=== PATIENT | male | born 1970 | race Caucasian/White ===

== ENCOUNTER 2020-03-19 08:58 | Inpatient (IN) ==
--- OUTSIDE RECORDS SUMMARY | 2020-03-19 09:01 | External Medical Summary | Continuity of Care Document ---
:1970 Author Name Salvador Phelps, Provider Address Unavailable Unavailable , Care Team Providers Name Role Phone Rahul Torres DO Unavailable [email or web address] PCP, UNKNOWN Unavailable Unavailable Problems Active medical history not documented Allergies and Adverse Reactions Allergy history not documented Medications Medications not documented Procedures Procedures not documented Immunizations Immunizations not documented Plan of Treatment Planned Observations Planned Goals not documented Results No Known Results Results not documented
--- OUTSIDE RECORDS SUMMARY | 2020-03-19 09:02 | External Medical Summary | Continuity of Care Document ---
:1970 Author Name Salvador Phelps, Provider Address Unavailable Unavailable , Care Team Providers Name Role Phone Rahul Torres DO Unavailable [email or web address] PCP, UNKNOWN Unavailable Unavailable Problems Active medical history not documented Allergies and Adverse Reactions Allergy history not documented Medications Medications not documented Procedures Procedures not documented Immunizations Immunizations not documented Plan of Treatment Planned Observations Planned Goals not documented Results No Known Results Results not documented
--- NOTE | 2020-03-19 09:49 | Emergency Department Note ---
Impression & Plan Acute CVA (cerebrovascular accident), Hypertension, Non-ST elevation [place] (NSTEMI) ED Provider Note NAME: EDNA TAYLOR AGE: 49 SEX: M : 1970 ARRIVES VIA: Walk-In INFORMANT: Patient ED PROVIDER(S): Tray Green DO CHIEF COMPLAINT: left arm weakness HPI: Patient is a 49-year-old male who presents the ER with a past medical history of hypertension, and [place], who presents to the ER for left upper extremity weakness. This started just prior to Thursday while he was working. He denies any trauma. He has never had this before. He had a mild he adache Thursday and Thursday but that has now dissipated. Pain is 0 out of 10. Denies any chest pain, shortness of breath, nausea, vomiting or diarrhea. He notes may be some questionable weakness in his left lower extremity as he does have trouble ambulating. He notes his vision is a little blurry. No loss of vision. No other complaints at this time. No exacerbating or remitting factors. He later notes that he had some chest pain last but has had no symptoms since then. ROS: See above HPI for pertinent positives & negatives. A total of 10 systems reviewed and were otherwise negative. PAST MEDICAL HISTORY:See Below PAST SURGICAL HISTORY:See Below FAMILY HISTORY:See Below SOCIAL HISTORY:See Below HOME MEDICATIONS:See Below ALLERGIES:See Below VITALS:See Below PHYSICAL EXAMINATION: GENERAL: Sitting up in bed, alert, well appearing, well nourished, no distress, non-toxic EYE EXAM: normal conjunctiva. PERRL and EOM's grossly intact. OROPHARYNX: no exudate, no erythema, lips, buccal mucosa, and tongue normal and mucous membranes are moist NECK: supple, no nuchal rigidity, no adenopathy, non-tender LUNGS: Clear to auscultation. Normal chest wall mechanics HEART: no murmurs, S1 normal and S2 normal ABDOMEN: abdomen soft, non-tender, normo-active bowel sounds, no masses, no rebound or guarding. BACK: Back is symmetrical on inspection and there is no deformity, no midline tenderness, no CVA tenderness. SKIN: no rashes and no bruising UPPER EXTREMITIES: upper extremities are grossly normal. LOWER EXTREMITIES: No pitting edema. NEURO EXAM: Normal sensorium, cranial nerves II-XII intact, normal speech, flexion extension as well as grasp and abduction of digits of the right upper extremity is intact. Weakness with flexion extension of the shoulder, abduction and adduction as well in combination with flexion extension of the elbow wrist grasp and abduction of the digits 4 out of 5, no weakness of legs. Unable to forearm [id number] with left hand. Positive drift. Diminished sensation in left upper extremity MEDICAL DECISION MAKING: Patient is a 49-year-old male who presents the ER for left upper extremity weakness which started this past Thursday. He denies any other complaints with exception of paresthesias may be some trouble walking. He had a headache the past 2 days but that has now resolved. IV was established blood work was obtained showed a mild leukocytosis of 11.9 thousand. Hemoglobin was concentrated 19.6. Question if this is dehydration. INR unremarkable. BMP with mild hypokalemia. Potassium was repleted. We will issue him slightly elevated at 1.2. Troponin was elevated at 0.245. Neurologic exam does confirm left upper extremity weakness. CT head as well as CTA of the head and neck shows multiple infarcts. Based on this is concern for possible embolic disease. Duplex of lower extremities was obtained and unremarkable. Chest x-ray with enlarged heart. Did discuss with neurology who recommended aspirin and MRI. Discussed with cardiology and they will perform an echo. Echo was ordered and done but did not receive results prior to admission. Discussed with the hospitalist the patient was admitted. He was updated bedside. We will hold on any IV heparin at confirmation that this is embolic as it could be secondary to multiple other etiologies at this time. Patient had no chest pain or shortness of breath since this past . Nothing to suggest that this is acute [place] at this time. Triage Nursing notes reviewed. Prior medical records reviewed Vital Signs: reviewed and remarkable for hypertension and tachycardia Differential diagnosis: Differential Diagnosis includes but is not limited to ischemic Stroke, hemorrh agic stroke, bells palsy, mass, neoplasm, migraine headache, seizure, subarachnoid hemorrhage, TIA, and transient global amnesia. ER treatment provided: See below Diagnostics interpreted by me: ECG: Sinus rhythm rate of 104 Normal axis Left bundle branch block Nonspecific ST wave changes in the inferior leads No PVCs. Morphology has changed from previous. Cardiac Monitoring: An order was placed for continuous cardiac monitoring. The monitor shows a rate of 101 with sinus rhythm. Laboratory studies: As stated above and show below. Imaging studies: CT of the head shows multiple infarcts. CTA of the neck was unremarkable. CTA of the head shows 75% stenosis of the right internal carotid and 60% stenosis of left internal carotid Duplex of lower extremities was negative. Portable AP upright 1 view of the chest shows no focal infiltrate. Echo of the chest was pending upon admission. Consultation(s): Discussed with Dr. Patton from neurology who recommended aspirin and MRI. Discussed with Dr. Dany Chris who was in agreement with echo. Discussed with Eugenie from [facility] for admission. ED COURSE: Procedures: none Critical Care: I have personally spent 45 minutes of critical care time in the direct management of this patient. This includes bedside care, interpretation of diagnostic studies, and testing, discussion with consultants, patient, and family members, and other required patient management activities. This 45 minutes is in excess of all separately billable procedures. Past Med/Surg History Social History Preferred Language: Niuean Communication Ability: Effective Destination Coordinator Required: No Beliefs That Will Affect Care: None Current Living Situation: Homeless Current Living Situation Comment: lives at homeless custodial Other Information That Helps Us Care for You: No Feels Safe at Home: Yes Safety Concerns: Feels Safe At This Time Smoking Status: Current every day smoker Tobacco Type: cigarettes ; Cigarettes Per Day: 20 ; Do You Dip or Chew Tobacco: No ; Hx Alcohol Use: No Hx Substance Use: No Allergies Allergies Allergy/AdvReac Type Severity Reaction Status Date / Time No Known Allergies Allergy Unverified 03/19/20 10:50 Home Meds Home Medications Medication Instructions Recorded Confirmed diphenhydramine HCl [Sleep Tablet 25 mg PO HS PRN 03/19/20 03/19/20 (diphenhydramine)] omeprazole magnesium [Prilosec OTC] 20 mg PO DAILY 03/19/20 03/19/20 Results & Data (ED) Vital Signs Vital Signs - 24 hr 03/19/20 09:02 03/19/20 10:51 03/19/20 10:52 Temperature 37.1 C Temperature Source Oral Pulse Rate 116 H 104 H 104 H Pulse Rate [Left] Pulse Rate from SpO2 Sensor 103 H 103 H Respiratory Rate 20 13 15 Respiratory Effort / Characteristics Non-Labored Respiratory Depth Normal Respiratory Pattern Blood Pressure 219/139 H 239/156 H 230/148 H Blood Pressure [Left Arm] Blood Pressure Mean 165 179 160 Blood Pressure Mean [Left Arm] Blood Pressure Position [Left Arm] Pulse Oximetry 98 98 97 Oxygen Delivery Method Room Air Sepsis Recent Fever Within 48 Hours No Sepsis Action Taken by Nursing No Action Required 03/19/20 10:56 03/19/20 11:09 03/19/20 11:15 Temperature Temperature Source Pulse Rate 84 Pulse Rate [Left] 110 H Pulse Rate from SpO2 Sensor 106 H 85 Respiratory Rate 22 23 Respiratory Effort / Characteristics Non-Labored Spontaneous Respiratory Depth Normal Respiratory Pattern Regular Blood Pressure 229/148 H 194/126 H Blood Pressure [Left Arm] 230/148 H Blood Pressure Mean 171 140 Blood Pressure Mean [Left Arm] 175 Blood Pressure Position [Left Arm] Lying Pulse Oximetry 96 98 99 Oxygen Delivery Method Room Air Sepsis Recent Fever Within 48 Hours Sepsis Action Taken by Nursing 03/19/20 12:15 03/19/20 12:30 03/19/20 12:58 Temperature Temperature Source Pulse Rate 82 Pulse Rate [Left] Pulse Rate from SpO2 Sensor 74 84 82 Respiratory Rate 19 Respiratory Effort / Characteristics Respiratory Depth Respiratory Pattern Blood Pressure 161/91 H 145/89 H 187/119 H Blood Pressure [Left Arm] Blood Pressure Mean 122 108 127 Blood Pressure Mean [Left Arm] Blood Pressure Position [Left Arm] Pulse Oximetry 95 96 98 Oxygen Delivery Method Sepsis Recent Fever Within 48 Hours Sepsis Action Taken by Nursing 03/19/20 13:00 03/19/20 13:15 03/19/20 13:30 Temperature Temperature Source Pulse Rate 86 80 86 Pulse Rate [Left] Pulse Rate from SpO2 Sensor 87 79 88 Respiratory Rate 18 17 18 Respiratory Effort / Characteristics Respiratory Depth Respiratory Pattern Blood Pressure 185/119 H 173/109 H 161/101 H Blood Pressure [Left Arm] Blood Pressure Mean 128 117 109 Blood Pressure Mean [Left Arm] Blood Pressure Position [Left Arm] Pulse Oximetry 97 95 94 Oxygen Delivery Method Sepsis Recent Fever Within 48 Hours Sepsis Action Taken by Nursing 03/19/20 13:45 Temperature Temperature Source Pulse Rate 85 Pulse Rate [Left] Pulse Rate from SpO2 Sensor 87 Respiratory Rate 20 Respiratory Effort / Characteristics Respiratory Depth Respiratory Pattern Blood Pressure 178/121 H Blood Pressure [Left Arm] Blood Pressure Mean 145 Blood Pressure Mean [Left Arm] Blood Pressure Position [Left Arm] Pulse Oximetry 93 Oxygen Delivery Method Sepsis Recent Fever Within 48 Hours Sepsis Action Taken by Nursing Laboratory Data Result diagrams: 03/19/20 09:59 03/19/20 09:59 Lab Results 03/19/20 03/19/20 03/19/20 Range/Units 09:59 09:59 09:59 WBC 11.98 H (4.8-10.8) K/uL RBC 6.05 (4.7-6.1) M/uL Hgb 19.6 H (14.0-18.0) g/dL POC Hgb (14.0-18.0) g/dl Hct 52.5 H (42-52) % POC Hct (42-52) % MCV 86.8 (80-100) fL MCH 32.4 (25-34) pg MCHC 37.3 H (32-36) g/dL RDW Std Deviation 46.2 (36.4-46.3) fL RDW Coeff of Dione 14.8 H (11.5-14.5) % Plt Count 161 (130-400) K/uL MPV 10.5 H (7.4-10.4) fL Immature Gran % (Auto) 0.6 % Neut % (Auto) 73.5 % Lymph % (Auto) 18.6 % [place] % (Auto) 6.7 % Eos % (Auto) 0.3 % Baso % (Auto) 0.3 % Immature Gran # (Auto) 0.07 H (0.00-0.02) K/uL Neut # (Auto) 8.82 H (1.4-6.5) K/uL Lymph # (Auto) 2.23 (1.2-3.4) K/uL [place] # (Auto) 0.80 H (0.11-0.59) K/uL Eos # (Auto) 0.03 (0-0.5) K/uL Baso # (Auto) 0.03 (0-0.2) K/uL PT (9.0-12.0) Seconds INR (0.9-1.1) APTT (21.0-31.0) Seconds PTT Ratio POC Sodium (135-144) mmol/L Sodium 136 (136-145) mmol/L POC Potassium (3.3-5.0) mmol/L Potassium 2.8 L (3.5-5.1) mmol/L POC Chloride (101-112) mmol/L Chloride 100 (98-107) mmol/L Carbon Dioxide 29 (21-32) mmol/L POC Total CO2 (24-31) mEq/l Anion Gap 7.0 (3-11) POC Anion Gap (16-25) mmol/L POC BUN (7-18) mg/dl BUN 10 (7-18) mg/dl Creatinine 1.26 (0.6-1.4) mg/dl POC Creatinine (0.6-1.3) mg/dl Est Cr Clr Drug Dosing 69.3 ml/min Est GFR ( Amer) 77.1 Est GFR (Non-Af Amer) 66.5 BUN/Creatinine Ratio 8.0 L (10-20) Glucose 242 H (70-99) mg/dl POC Glucose (other) (70-99) mg/dl Calcium 9.7 (8.5-10.1) mg/dl POC Ioniz Calcium Juan (1.12-1.32) mmol/l Magnesium 2.4 (1.8-2.4) mg/dl Total Bilirubin 1.2 H (0.2-1) mg/dl AST 16 (15-37) U/L ALT 25 (12-78) U/L Alkaline Phosphatase 134 H (45-117) U/L Troponin I 0.245 H* (0-0.045) ng/ml Total Protein 8.2 (6.4-8.2) gm/dl Albumin 3.9 (3.4-5.0) gm/dl Globulin 4.3 H (2.5-4.0) gm/dl Albumin/Globulin Ratio 0.9 (0.9-2) Blood Type O Positive Antibody Screen NEGATIVE 03/19/20 03/19/20 Range/Units 09:59 10:04 WBC (4.8-10.8) K/uL RBC (4.7-6.1) M/uL Hgb (14.0-18.0) g/dL POC Hgb 19.7 H (14.0-18.0) g/dl Hct (42-52) % POC Hct 58 H (42-52) % MCV (80-100) fL MCH (25-34) pg MCHC (32-36) g/dL RDW Std Deviation (36.4-46.3) fL RDW Coeff of Dione (11.5-14.5) % Plt Count (130-400) K/uL MPV (7.4-10.4) fL Immature Gran % (Auto) % Neut % (Auto) % Lymph % (Auto) % [place] % (Auto) % Eos % (Auto) % Baso % (Auto) % Immature Gran # (Auto) (0.00-0.02) K/uL Neut # (Auto) (1.4-6.5) K/uL Lymph # (Auto) (1.2-3.4) K/uL [place] # (Auto) (0.11-0.59) K/uL Eos # (Auto) (0-0.5) K/uL Baso # (Auto) (0-0.2) K/uL PT 11.2 (9.0-12.0) Seconds INR 1.1 (0.9-1.1) APTT 29.1 (21.0-31.0) Seconds PTT Ratio 1.0 POC Sodium 137 (135-144) mmol/L Sodium (136-145) mmol/L POC Potassium 2.9 L (3.3-5.0) mmol/L Potassium (3.5-5.1) mmol/L POC Chloride 97 L (101-112) mmol/L Chloride (98-107) mmol/L Carbon Dioxide (21-32) mmol/L POC Total CO2 27 (24-31) mEq/l Anion Gap (3-11) POC Anion Gap 17.0 (16-25) mmol/L POC BUN 9 (7-18) mg/dl BUN (7-18) mg/dl Creatinine (0.6-1.4) mg/dl POC Creatinine 1.0 (0.6-1.3) mg/dl Est Cr Clr Drug Dosing ml/min Est GFR ( Amer) Est GFR (Non-Af Amer) BUN/Creatinine Ratio (10-20) Glucose (70-99) mg/dl POC Glucose (other) 243 H (70-99) mg/dl Calcium (8.5-10.1) mg/dl POC Ioniz Calcium Juan 1.19 (1.12-1.32) mmol/l Magnesium (1.8-2.4) mg/dl Total Bilirubin (0.2-1) mg/dl AST (15-37) U/L ALT (12-78) U/L Alkaline Phosphatase (45-117) U/L Troponin I (0-0.045) ng/ml Total Protein (6.4-8.2) gm/dl Albumin (3.4-5.0) gm/dl Globulin (2.5-4.0) gm/dl Albumin/Globulin Ratio (0.9-2) Blood Type Antibody Screen Administered Medications Ioversol (Optiray 320 125ml) 120 ml IV ONCE PRN PRN Reason: Interaction Checking Stop: 03/23/20 10:12 Last Admin: 03/19/20 10:14 Dose: 120 ml Documented by: [id number] Discontinued Medications Aspirin (Aspirin) 324 mg PO NOW STA Stop: 03/19/20 10:49 Last Admin: 03/19/20 11:01 Dose: 324 mg Documented by: [id number] Sodium Chloride (Nss 1000ml) 1,000 mls @ 999 mls/hr IV .Q1H1M ONE Stop: 03/19/20 11:43 Last Infusion: 03/19/20 12:54 Dose: 0 mls/hr Documented by: [id number] Admin: 03/19/20 11:05 Dose: 999 mls/hr Documented by: [id number] Labetalol HCl (Normodyne) 10 mg IV NOW STA Stop: 03/19/20 10:50 Last Admin: 03/19/20 11:04 Dose: 10 mg Documented by: [id number] Cosigned by: [id number] Potassium Chloride (Klor-Con M10) 40 meq PO NOW STA Stop: 03/19/20 10:50 Last Admin: 03/19/20 11:00 Dose: 40 meq Documented by: [id number] Discharge Plan Visit Data Chief Complaint: Arm Pain Stated Complaint: LT ARM NUMBNESS ED Provider: Tray Green Discharge Problem: Acute CVA (cerebrovascular accident), Hypertension, Non-ST elevation [place] (NSTEMI) Discharge Instructions Interventions: ED Discharge Assessment Last Done: 03/19/20 14:10 Forms Stand Alone Forms: [employer] Prescriptions Prescriptions: No Action diphenhydramine HCl [Sleep Tablet (diphenhydramine)] 25 mg Tablet 25 mg PO HS PRN (Reason: Sleep) RF: 0 famotidine 10 mg Tablet 10 mg PO DAILY RF: 0 Referrals Referrals: PCP,NO [Primary Care Provider] - Discharge Problem: Hypertension Qualifiers: Hypertension type: unspecified Qualified Code(s): I10 - Essential (primary) hypertension
[2020-03-19 10:12] LABS: iSTAT Hemoglobin 19.7 g/dl (14.0-18.0); iSTAT Ionized Calcium 1.19 mmol/l (1.12-1.32); iSTAT Potassium 2.9 mmol/L (3.3-5.0)
[2020-03-19 10:13] LABS: Basophils # (auto) 0.03 K/uL (0-0.2); Basophils % (auto) 0.3 %; Eosinophils # (auto) 0.03 K/uL (0-0.5); Eosinophils % (auto) 0.3 %; Hematocrit (blood only) 52.5 % (42-52); Hemoglobin 19.6 g/dL (14.0-18.0); Immature Granulocytes # (auto) 0.07 K/uL (0.00-0.02); Immature Granulocytes % (auto) 0.6 %; Lymphocytes # (auto) 2.23 K/uL (1.2-3.4); Lymphocytes % (auto) 18.6 %; Mean Corpuscular Hemoglobin 32.4 pg (25-34); Mean Corpuscular Hgb Conc 37.3 g/dL (32-36); Mean Corpuscular Volume 86.8 fL (80-100); Mean Platelet Volume 10.5 fL (7.4-10.4); Monocytes % (auto) 6.7 %; Neutrophils # (auto) 8.82 K/uL (1.4-6.5); Neutrophils % (auto) 73.5 %; Platelet Count 161 K/uL (130-400); RDW Coefficient of Variation 14.8 % (11.5-14.5); RDW Standard Deviation 46.2 fL (36.4-46.3); Red Blood Count 6.05 M/uL (4.7-6.1); White Blood Count 11.98 K/uL (4.8-10.8)
[2020-03-19] MEDS ORDERED: OPTIRAY 320 125ml IV PRN (10:13)
--- NOTE | 2020-03-19 10:17 | Electrocardiogram Report ---
Test Reason : Blood Pressure : / mmHG Vent. Rate : 104 BPM Atrial Rate : 104 BPM P-R Int : 174 ms QRS Dur : 102 ms QT Int : 370 ms P-R-T Axes : 067 026 064 degrees QTc Int : 486 ms Sinus tachycardia Biatrial enlargement Left ventricular hypertrophy Borderline Criteria for Old Inferior infarct Abnormal ECG When compared with ECG of 14-OCT-2014 07:27, QRS duration has increased Otherwise no significant change Confirmed by Pedro Pablo Castañeda ([id number]) on 03/19/2020 10:16:42 AM Referred By: Confirmed By:Pedro Pablo Castañeda
[2020-03-19 10:25] LABS: INR 1.1 (0.9-1.1); Partial Thromboplastin Time 29.1 Seconds (21.0-31.0); Prothrombin Time 11.2 Seconds (9.0-12.0)
[2020-03-19 10:31] LABS: Albumin Globulin Ratio 0.9 (0.9-2); Albumin Level 3.9 gm/dl (3.4-5.0); Bilirubin,Total 1.2 mg/dl (0.2-1); Calcium 9.7 mg/dl (8.5-10.1); Creatinine Clr Calc Pharmacy 69.3 ml/min; Est GFR (African American) 77.1; Est GFR (Non-African American) 66.5; Globulin 4.3 gm/dl (2.5-4.0); Magnesium 2.4 mg/dl (1.8-2.4); Potassium 2.8 mmol/L (3.5-5.1); Total Protein 8.2 gm/dl (6.4-8.2)
--- NOTE | 2020-03-19 10:34 | CT Scan Report ---
CT head/brain wo con CLINICAL HISTORY: 49 years-old Male presenting with Stroke evaluation, headache, left arm numbness an d weakness, difficulty walking. TECHNIQUE: Multidetector CT imaging of the head was performed without the use of intravenous contrast . IV contrast: None. One or more dose lowering techniques were used consistent with the principles of ALARA (as low as reasonably achievable), including automatic exposure control, mA or kV adjustment t o individual patient size, and/or use of iterative reconstruction. COMPARISON: None. CT DOSE (mGy.cm): The estimated cumulative dose is 729.78 mGycm. FINDINGS: Chief Operator Reformer topogram: Unremarkable. Ventricles and sulci normal in size. No hemorrhage. Focal periventricular white matter hypoattenuatio n in the left parietal occipital region (series 2 image 18). Hypoattenuation involving the white ari er and overlying justin matter in the right frontal and right parietal lobes (series 2 image 23). The a ppearance is consistent with acute infarcts with regional sulcal effacement. No midline shift. No ext ra-axial fluid collection. Paranasal sinuses and mastoid air cells clear. Calvarium intact. IMPRESSION: 1. Acute infarcts involving the right frontal and right parietal lobes. Given the patient's age, in addition to more typical etiologies of multifocal acute infarcts such as emboli, atypical etiologies should also be considered such as vasculitis. 2. No evidence of hemorrhagic conversion at this time. 3. The focal hypoattenuation in the periventricular white matter of the left parietal occipital reilly on may also relate to acute infarct though this is less specific. The report will be called/faxed according to standard departmental protocol for a critical finding. ACT 112: Negative or not required by law. Electronically signed by: Ehsan Can M.D. 03/19/2020 10:32 AM
[2020-03-19 10:43] LABS: Troponin I 0.245 ng/ml (0-0.045)
[2020-03-19] MEDS ORDERED: SODIUM CHLORIDE 0.9% 1000ML 1,000 ML IV ONE (10:43)
--- NOTE | 2020-03-19 10:43 | CT Scan Report ---
CT angio head w con CLINICAL HISTORY: Stroke evaluation LEFT ARM NUMBNESS AND WEAKNESS. DIFFICULTY AMBULATING. TECHNIQUE: CT angiography of the head was performed in a dynamic helical fashion during intravenous a dministration of 120 cc of Optiray 320. MIP imaging was performed. A dose lowering technique was util ized adhering to the principles of ALARA. CT DOSE: 1112.82 mGycm COMPARISON STUDY: Noncontrast head CT dated 03/19/2020 FINDINGS: There are no lesion suspicious for aneurysm. There are no major intracranial branch occlusi ons. There is moderate atheromatous calcification at the level of the cavernous carotids bilaterally. There is an estimated 40% diameter narrowing of the left internal carotid artery. Stenosis measureme nts are less accurate in the presence of dense calcification. The dural venous sinuses appear patent. IMPRESSION: 1. No evidence of major intracranial branch occlusion 2. No evidence of aneurysm 3. Moderate atheromatous change at the level the cavernous carotids with estimated 40% diameter steno sis of the left internal carotid artery ACT 112: Negative or not required by law. Electronically signed by: Roland Mejias M.D. 03/19/2020 10:41 AM
--- NOTE | 2020-03-19 10:43 | CT Scan Report ---
CT angio neck with con CLINICAL HISTORY: Suspected acute stroke. Left arm numbness and weakness. Difficulty in ambulation. COMPARISON STUDY: No previous studies for comparison. TECHNIQUE: CT angiography was performed from the aortic arch to the skull base. MIP imaging was perfo rmed. The patient was scanned in a dynamic helical fashion during intravenous administration of 120 c c of Optiray 320. A dose lowering technique was utilized adhering to the principles of ALARA. CT DOSE: Technique: CT angiogram of the carotid and vertebral arteries was obtained using intravenous contrast and 3-D reconstruction. NASCET criteria was utilized. Findings: There is a left aortic arch with an aberrant right subclavian artery. There is a 75% stenosis of the right internal carotid artery origin. There is a 60% diameter stenosis of the left internal carotid artery origin. There is no evidence of hemodynamically significant vertebral stenosis. There is no evidence of verte bral dissection. IMPRESSION: 1. 75% stenosis of the right internal carotid artery origin 2. 60% stenosis of the left internal carotid artery origin 3. Left aortic arch with an aberrant right subclavian artery ACT 112: Negative or not required by law. Electronically signed by: Roland Mejias M.D. 03/19/2020 10:42 AM
[2020-03-19] MEDS ORDERED: ASPIRIN CHEW 324 MG PO STA (10:48)
[2020-03-19] MEDS ORDERED: LABETALOL HCL IV 5 MG/ML 20ML IV STA (10:49)
[2020-03-19] MEDS ORDERED: POTASSIUM CHLORIDE 10 MEQ TABCR PO STA (10:49)
--- NOTE | 2020-03-19 12:03 | Ultrasound Report ---
US venous doppler LE BI CLINICAL HISTORY: 49 years-old Male presenting with multiple cvas ? dvts. TECHNIQUE: Real-time grayscale and color and spectral Doppler ultrasound imaging of the veins of the bilateral lower extremities was performed. Compression and augmentation were also utilized. COMPARISON: None. FINDINGS: RIGHT: Common femoral vein: Patent. Greater saphenous vein (superficial): Patent. Deep femoral vein: Patent. Femoral vein: Patent. Popliteal vein: Patent. Calf veins: Patent. LEFT: Common femoral vein: Patent. Greater saphenous vein (superficial): Patent. Deep femoral vein: Patent. Femoral vein: Patent. Popliteal vein: Patent. Calf veins: Patent. Other: None. IMPRESSION: No evidence of deep venous thrombosis. ACT 112: Negative or not required by law. Electronically signed by: Ehsan Can M.D. 03/19/2020 12:02 PM
--- NOTE | 2020-03-19 13:32 | History & Physical Report ---
Date of Service March 19, 2020 Assessment & Plan (1) Acute CVA (cerebrovascular accident): Presented with pain numbness and minimal weakness involving left upper extremity since Thursday last Noted drifting towards the left side with ambulation No other symptoms of stroke CT scan did not show acute infarcts involving the right frontal and parietal lobes Neck CTA showed more than 70% stenosis of the right internal carotid artery Stroke could be secondary to cholesterol emboli doubt any cardiac emboli Has been on aspirin and started with statin Neurochecks, speech therapy and neurology consult (2) Carotid stenosis, bilateral: As above (3) Left arm weakness: As above (4) Hypertensive urgency: Acute infarcts of the right frontal and parietal lobes. Possibly from carotid disease. Aspirin given in the ED. Continued LUE weakness. No indication for TPA due to length of symptoms. Admit to telemetry for continued monitoring. Repeat EKG in AM. BP severely elevated upon admission. Given labetolol 10 mg in the ED with slight improvement. Give another 5 mg Lopressor now and then Q6h PRN for elevated systolic BP >160 or HR >100. Continue daily aspirin. Monitor for changing neurologic symptoms. Will call for permissive hypertension (5) Hypokalemia: 40 mEq given in the ED. Give another dose of 40 mEq of Potassium. Recheck BMP in AM. Will also continue NSS w/ 20 mEq KCl (6) Elevated glucose: Possible untreated diabetes. Check A1C in the AM. Start insulin protocol (7) Erythrocytosis: Possibly secondary to tobacco use history. Will check iron studies in the AM. (8) History of AZ (myocardial infarction): In 2011 followed by cardiac cath and drug-eluting stent placement He was sent home on aspirin, Plavix, Coreg, nitrate and statin Apparently he has not taking any of his medications and has not had a follow-up with his primary care or acute care nursing assistant for a long time. (9) Elevated troponin: Elevated troponin upon presentation. Possibly due to demand with severely elevated BP. Continue to trend troponin Q6h x 2 more. No acute change on EKG indicating new AZ. Echo completed: Left ventricle is normal in size with severe concentric LV hypertrophy, grade 1 diastolic dysfunction, inferior wall is akinetic at the base and mid level, posterior wall severely hypokinetic at the base and wall other segment mildly hypokinetic in global fashion, EF 40 to 45% and trace AR trace MR Consult Cardiology. Discussed patient with Dr. Chris. (10) Tobacco abuse: Advised to quit smoking (11) DVT prophylaxis: Heparin for now History of Present Illness Chief Complaint: LUE weakness, Acute CVA Primary Care Provider: NO PCP Patient is a 49 yo male with history of HTN and AZ who presented to the ED with complaint of multiple days of left upper extremity weakness. Toward the end of last week, the patient started to notice LUE weakness and balance problems while at work. He was "running into things". He felt like this throughout most of the day. He did have some upper chest/right sided neck pain over the weekend while at work, but that subsided. The chest/neck pain that he was experiencing seemed similar to the pain that he had back in 2014 when he had his AZ. It subsided though. He then had progressively increasing left upper extremity weakness over the weekend along with on and off blurred vision. He noticed that he felt like he could fall to the left side because of his balance seeming 'off'. Patient previously followed with a PCP in [place] at [facility], but he has not followed routinely with anyone since his hospitalizations. He was hospitalized here in 2013 for his inferior AZ. A Drug eluding stent was placed at that time. He was sent home on ASA, atorvastatin, lisinopril, carvedilol, & Plavix. He isn't exactly sure when he stopped these. He did have another admission between then and now in [place] for pancreatitis which he thinks may have been when these were stopped. He is not a good historian regarding his medical hx. He does have continued LUE weakness and numbness. No facial droop or slurred speech. No difficulty swallowing or loss of taste/smell. He has no current CP, SOB, abdominal pain, N/V/D/C, urinary symptoms, or peripheral edema. Since presentation to the ED, BP was up to 239/156. He was given labetalol 10 mg and BP is now 178/121. Troponin was elevated. Hgb also elevated to 19. Patient is a smoker. CT of the head showed acute infarcts in the right frontal and parietal lobes. Radiology recommended considering things such as vasculitis due to patient's age with these findings. CTA of the neck showed 75% stenosis right internal carotid and 60% stenosis of the left internal carotid. Allergies Allergy/AdvReac Type Severity Reaction Status Date / Time No Known Allergies Allergy Unverified 03/19/20 10:50 Home Medications Home Medications Medication Instructions Recorded Confirmed Type diphenhydramine HCl [Sleep Tablet 25 mg PO HS PRN 03/19/20 03/19/20 History (diphenhydramine)] famotidine 10 mg PO DAILY 03/19/20 03/19/20 History Past Med/Surg History Medical History (Updated 03/19/20 @ 14:55 by Lilia Nickerson PA-C) Carotid stenosis, bilateral Elevated glucose Non-ST elevation AZ (NSTEMI) (Inactive) Pancreatitis Tobacco abuse Surgical History (Updated 03/19/20 @ 14:23 by Lilia Nickerson PA-C) S/P drug eluting coronary stent placement Social History Preferred Language: Armenian Communication Ability: Effective Train Clerk Required: No Beliefs That Will Affect Care: None Current Living Situation: Homeless Current Living Situation Comment: lives at homeless correction Other Information That Helps Us Care for You: No Feels Safe at Home: Yes Safety Concerns: Feels Safe At This Time Smoking Status: Current every day smoker Tobacco Type: cigarettes ; Cigarettes Per Day: 20 ; Do You Dip or Chew Tobacco: No ; Hx Alcohol Use: No Hx Substance Use: No Review of Systems Review of Systems: All systems reviewed & are unremarkable except as noted in HPI & below Physical Exam Constitutional: well nourished, + acute distress and average body habitus Eyes: PERRL, conjunctivae normal, anicteric sclerae ENMT: external ear and nose normal, oropharynx normal Neck: trachea midline, no thyromegaly Respiratory: normal respiratory effort, lungs clear to auscultation Cardiovascular: RRR, no murmur, no edema Gastrointestinal (Abdomen): normal bowel sounds, soft, nontender, no hepatosplenomegaly Musculoskeletal: Head/Neck/Chest: normocephalic, head atraumatic and neck supple Extremities: + abnormal strength (Left upper extremity weakness compared to right. 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) Vital Signs (Past 12 Hours) Vital Signs Temp Pulse Pulse Resp BP BP Pulse Ox 03/19/20 12:30 145/89 H 96 03/19/20 12:15 161/91 H 95 03/19/20 11:15 84 23 194/126 H 99 03/19/20 11:09 229/148 H 98 03/19/20 10:56 110 H 22 230/148 H 96 03/19/20 10:52 104 H 15 230/148 H 97 03/19/20 10:51 104 H 13 239/156 H 98 03/19/20 09:02 37.1 C 116 H 20 219/[address] Head: IMPRESSION: 1. Acute infarcts involving the right frontal and right parietal lobes. Given the patient's age, in addition to more typical etiologies of multifocal acute infarcts such as emboli, atypical etiologies should also be considered such as vasculitis. 2. No evidence of hemorrhagic conversion at this time. 3. The focal hypoattenuation in the periventricular white matter of the left parietal occipital region may also relate to acute infarct though this is less specific. CTA Head: IMPRESSION: 1. No evidence of major intracranial branch occlusion 2. No evidence of aneurysm 3. Moderate atheromatous change at the level the cavernous carotids with estimated 40% diameter stenosis of the left internal carotid artery CTA Neck: IMPRESSION: 1. 75% stenosis of the right internal carotid artery origin 2. 60% stenosis of the left internal carotid artery origin 3. Left aortic arch with an aberrant right subclavian artery Venous Doppler: IMPRESSION: No evidence of deep venous thrombosis. CXR: IMPRESSION: 1. Enlargement of the cardiopericardial silhouette may indicate cardiomegaly or pericardial effusion. No other convincing evidence of acute cardiopulmonary disease. Code Status & VTE Plan VTE Prophylaxis Plan VTE Prophylaxis will be ordered: Yes Supervising Physician Co-Signing Physician Notes The patient was seen, history taken, examined in the emergency room and the chart reviewed. Agree with assessment and plan as outlined above by Eugenie Nickerson PA-C. Dr Hanna Iglesias
--- NOTE | 2020-03-19 14:12 | XRay Report ---
XR chest 1V portable CLINICAL HISTORY: 49 years-old Male presenting with EKG changes, hx CHF. TECHNIQUE: Portable upright AP view of the chest was obtained. COMPARISON: 10/14/2014. FINDINGS: Atherosclerosis of the aortic arch. Cardiac silhouette enlarged. No focal opacity. No large effusion or pneumothorax. Osseous structures normal. Upper abdomen normal. IMPRESSION: 1. Enlargement of the cardiopericardial silhouette may indicate cardiomegaly or pericardial effusion . No other convincing evidence of acute cardiopulmonary disease. ACT 112: Negative or not required by law. Electronically signed by: Ehsan Can M.D. 03/19/2020 2:11 PM
[2020-03-19] MEDS ORDERED: CARBOHYDRATES FOR HYPOGLYCEMIA PO PRN (14:47)
[2020-03-19] MEDS ORDERED: GLUCOSE 40% GEL 15 GM TUBE PO PRN (14:47)
[2020-03-19] MEDS ORDERED: METOPROLOL TARTRATE 1 MG/ML VIAL IV PRN (14:47)
[2020-03-19] MEDS ORDERED: ACETAMINOPHEN 325 MG TAB PO PRN (14:47)
[2020-03-19] MEDS ORDERED: PHARMACIST DISCHARGE MED REC CONSULT PRN (14:47)
[2020-03-19] MEDS ORDERED: METOPROLOL TARTRATE 1 MG/ML VIAL IV STA (14:47)
[2020-03-19] MEDS ORDERED: DEXTROSE 50% 50 ML SYRINGE IV PRN (14:47)
[2020-03-19] MEDS ORDERED: GLUCAGON FOR INJ 1 MG VIAL SQ PRN (14:47)
[2020-03-19] MEDS ORDERED: POTASSIUM CHLORIDE 20 MEQ TABCR PO ONE (14:47)
[2020-03-19] MEDS ORDERED: GLUCOSE 10 TABS/TUBE PO PRN (14:47)
[2020-03-19] MEDS: NSS + 20MEQ KCL 20 MEQ/1,000 ML BAG IV SCH (16:01)
--- NOTE | 2020-03-19 16:22 | Cardiology Consultation ---
Date of Consultation March 19, 2020 Assessment & Plan (1) Acute CVA (cerebrovascular accident): Patient presents several days duration of symptoms of waxing waning left arm weakness with CT scan of the head demonstrating multiple area distribution cerebral infarct right sided. Present setting with marked hypertension/hypertensive urgency Echocardiogram demonstrates severe left trickle hypertrophy with old inferior infarct EF 45% no apical thrombus, no significant valvular disease, no shunt excellent agitated saline contrast interrogation. EKG and telemetry sinus mechanism Recommendations: Would treat cerebrovascular and cardiovascular risk factors. Treat hypertension. At time of dictation patient has received 1 dose of IV labetalol. Will begin oral metoprolol 25 mg twice per day in addition to as needed IV metoprolol ordered agree with antiplatelet therapy with aspirin and likely clopidogrel for an additional 30 days. Ultimate goal be initiation of KATELYN inhibitor as blood pressure stabilizes and renal function confirmed, high-dose statin in addition to antiplatelet therapy Per coagulable state may need to be evaluated Currently no cardiac indications for anticoagulation setting of hypertensive urgency/emergency and no cardiac source of embolus identified. Alternate pos sible sources include carotids, shaggy aorta. Would maintain telemetry Echocardiogram does demonstrate severe left hypertrophy likely hypertensive in etiology. Initial hemoglobin elevated exclusion of hemochromatosis warranted. Fabry disease and unlikely diagnosis but in the differential given severe LVH (2) Hypertensive urgency: As above initial treatment with beta-marcial Can add topical nitrates as necessary but allowing some permissive hypertension (may be removed if necessary) (3) Carotid stenosis, bilateral: (4) History of WI (myocardial infarction): Patient with prior ST segment elevation myocardial infarction in 2013 with untreated cardiovascular risk factors. Troponin elevated but no significant segmental abnormalities observed on echo. Will follow with EKG and clinical course as treatment progresses. Would not initiate IV heparin in the setting of uncontrolled hypertension History of Present Illness Reason for Consultation: Stroke Requesting Physician: Dr. Iglesias Attending Physician: Kian Iglesias MD History of Present Illness Patient is a 49-year-old male whose past history as per patient related and review of records includes 1. Atherosclerotic coronary artery disease, premature status post acute ST elevation inferior myocardial infarction 2013 receiving drug-eluting stent to the right coronary artery 2. Longstanding hypertension greater than 10 years duration untreated 3. Hyperlipidemia 4. Chronic tobacco use 5. Prior recurrent pancreatitis Patient admitted with several day history of waxing and waning left arm weakness and shortness of breath. Occasional chest tightness. Has not been following blood pressures are on significant medications for several years. No acute fevers chills or sweats. No melena medication dysuria hematuria. No sense of tachypalpitations syncope or near syncope. No acute weight loss or gain. Does continue to smoke intermittently. Rare alcohol use due to recurrent pancreatitis. No prior history of TIA or stroke. Denies history of tachyarrhythmias or irregular heartbeats Allergies Allergy/AdvReac Type Severity Reaction Status Date / Time No Known Allergies Allergy Unverified 03/19/20 10:50 Home Medications Home Medications Medication Instructions Recorded Confirmed Type diphenhydramine HCl [Sleep Tablet 25 mg PO HS PRN 03/19/20 03/19/20 History (diphenhydramine)] famotidine 10 mg PO DAILY 03/19/20 03/19/20 History Patient History Medical History Carotid stenosis, bilateral Elevated glucose Non-ST elevation WI (NSTEMI) (Inactive) Pancreatitis Tobacco abuse Surgical History S/P drug eluting coronary stent placement Social History Preferred Language: Malay Communication Ability: Effective Suture Gauger Required: No Beliefs That Will Affect Care: None Current Living Situation: Homeless Current Living Situation Comment: lives at homeless halfway Other Information That Helps Us Care for You: No Feels Safe at Home: Yes Safety Concerns: Feels Safe At This Time Smoking Status: Current every day smoker Tobacco Type: cigarettes ; Cigarettes Per Day: 20 ; Do You Dip or Chew Tobacco: No ; Hx Alcohol Use: No Hx Substance Use: No Physical Exam Constitutional: WD/WN, vitals as above Eyes: PERRL, conjunctivae normal, anicteric sclerae ENMT: external ear and nose normal, oropharynx normal Neck: trachea midline, no thyromegaly Respiratory: normal respiratory effort, lungs clear to auscultation Cardiovascular: Rate/Rhythm: regular rate and regular rhythm Heart Sounds: normal S1 and normal S2; no gallop and no murmur Palpation: normal PMI Vessels: normal carotid upstroke and radial pulses present; no JVD and no carotid bruit Extremities: no edema Gastrointestinal (Abdomen): normal bowel sounds, soft, nontender, no hepatosplenomegaly Musculoskeletal: no cyanosis or clubbing, extremities motor strength 5/5 Skin: no rashes, warm and dry Neurologic: + focal motor deficit Left-sided weakness with some mild dysarthria Psychiatric: A+Ox3, euthymic affect Results & Data ([facility]) Vital Signs (Past 12 Hours) Vital Signs Temp Pulse Pulse Resp BP BP Pulse Ox 03/19/20 14:56 37 C 85 18 164/117 H 96 03/19/20 14:47 37 C 77 85 18 164/117 H 96 03/19/20 14:16 85 15 175/108 H 96 03/19/20 13:45 85 20 178/121 H 93 03/19/20 13:30 86 18 161/101 H 94 03/19/20 13:15 80 17 173/109 H 95 03/19/20 13:00 86 18 185/119 H 97 03/19/20 12:58 82 19 187/119 H 98 03/19/20 12:30 145/89 H 96 03/19/20 12:15 161/91 H 95 03/19/20 11:15 84 23 194/126 H 99 03/19/20 11:09 229/148 H 98 03/19/20 10:56 110 H 22 230/148 H 96 03/19/20 10:52 104 H 15 230/148 H 97 03/19/20 10:51 104 H 13 239/156 H 98 03/19/20 09:02 37.1 C 116 H 20 219/139 H 98 Pulse Ox 03/19/20 14:56 03/19/20 14:47 96 03/19/20 14:16 03/19/20 13:45 03/19/20 13:30 03/19/20 13:15 03/19/20 13:00 03/19/20 12:58 03/19/20 12:30 03/19/20 12:15 03/19/20 11:15 03/19/20 11:09 03/19/20 10:56 03/19/20 10:52 03/19/20 10:51 03/19/20 09:02
[2020-03-19] MEDS ORDERED: METOPROLOL TARTRATE 25 MG TAB PO ONE (16:45)
[2020-03-19] MEDS ORDERED: CLOPIDOGREL BISULFATE 75 MG TAB PO ONE (16:59)
[2020-03-19] MEDS: INSULIN ASPART 100 UNITS/ML 3 ML PEN SC SCH ×2 (17:11→21:37)
--- NOTE | 2020-03-19 18:40 | Magnetic Resonance Report ---
MR brain wo con HISTORY: Mental status change Acute CVAs TECHNIQUE: Multiplanar multisequence MRI of the brain was performed without the use of contrast. COMPARISON STUDY: CT 03/19/2020 FINDINGS: Diffusion images demonstrate a rather large geographical area of cortical infarct over the right parietal convexity. Significant infarct involving the right occipital lobe as well as small pun ctate acute ischemic foci of the right occipital and right temporal lobe are present. Coronal FLAIR images demonstrate considerable chronic small vessel change . The ventricular system is midline. Internal auditory canals are symmetric. IMPRESSION: 1. Multiple right hemispheric acute/subacute infarct. 2. There is a large geographic cortical infarct superior right parietal convexity, with smaller infar cts involving the right occipital lobe as well as smaller foci of acute ischemic change of the right temporal occipital distribution. 3. Differential considerations are as noted previously 4. Considerable multifocal foci of increased signal suggesting a baseline chronic small vessel ischem ic process. ACT 112: Negative or not required by law. The above report was generated using voice recognition software. It may contain grammatical, syntax or spelling errors. Electronically signed by: Chase Ba M.D. 03/19/2020 6:39 PM
[2020-03-19] MEDS: HEPARIN SOD 5,000 UNIT/0.5 ML VIAL SQ SCH (21:36)
[2020-03-19] MEDS: INSULIN GLARGINE SOLOSTAR 100 UNITS/ML 3 ML PEN SC SCH (21:39)
[2020-03-19] MEDS: METOPROLOL TARTRATE 25 MG TAB PO SCH (21:40)
[2020-03-20] MEDS: NSS + 20MEQ KCL 20 MEQ/1,000 ML BAG IV SCH ×2 (04:13→16:22)
[2020-03-20 06:51] LABS: Basophils # (auto) 0.03 K/uL (0-0.2); Basophils % (auto) 0.3 %; Eosinophils # (auto) 0.16 K/uL (0-0.5); Eosinophils % (auto) 1.8 %; Hematocrit (blood only) 47.9 % (42-52); Hemoglobin 16.7 g/dL (14.0-18.0); Immature Granulocytes # (auto) 0.05 K/uL (0.00-0.02); Immature Granulocytes % (auto) 0.6 %; Lymphocytes # (auto) 2.46 K/uL (1.2-3.4); Lymphocytes % (auto) 27.5 %; Mean Corpuscular Hgb Conc 34.9 g/dL (32-36); Mean Corpuscular Volume 88.9 fL (80-100); Mean Platelet Volume 10.7 fL (7.4-10.4); Monocytes # (auto) 0.61 K/uL (0.11-0.59); Monocytes % (auto) 6.8 %; Neutrophils # (auto) 5.65 K/uL (1.4-6.5); Platelet Count 150 K/uL (130-400); RDW Coefficient of Variation 15.2 % (11.5-14.5); RDW Standard Deviation 48.8 fL (36.4-46.3); Red Blood Count 5.39 M/uL (4.7-6.1); White Blood Count 8.96 K/uL (4.8-10.8)
[2020-03-20 07:05] LABS: Estimated Average Glucose 160 mg/dl; Hemoglobin A1C 7.2 % (4.5-5.6)
[2020-03-20 07:23] LABS: Albumin Level 3.2 gm/dl (3.4-5.0); BUN Creatinine Ratio 12.2 (10-20); Bilirubin,Total 1.5 mg/dl (0.2-1); Calcium 8.1 mg/dl (8.5-10.1); Creatinine Clr Calc Pharmacy 84.9 ml/min; Est GFR (African American) 108.5; Est GFR (Non-African American) 93.6; Ferritin 176.6 ng/ml (8-388); Globulin 3.1 gm/dl (2.5-4.0); Total Protein 6.3 gm/dl (6.4-8.2)
[2020-03-20] MEDS: INSULIN ASPART 100 UNITS/ML 3 ML PEN SC SCH ×4 (08:26→21:56)
[2020-03-20] MEDS: INSULIN GLARGINE SOLOSTAR 100 UNITS/ML 3 ML PEN SC SCH ×2 (08:27→21:57)
--- NOTE | 2020-03-20 08:32 | Electrocardiogram Report ---
Test Reason : Blood Pressure : / mmHG Vent. Rate : 076 BPM Atrial Rate : 076 BPM P-R Int : 196 ms QRS Dur : 100 ms QT Int : 446 ms P-R-T Axes : 044 026 043 degrees QTc Int : 501 ms Normal sinus rhythm Biatrial enlargement Prolonged QT nondiagnostic inferior Q waves Abnormal ECG When compared with ECG of 19-MAR-2020 09:48, No significant change Confirmed by Pedro Pablo Castañeda ([id number]) on 03/20/2020 8:32:10 AM Referred By: REFERRED SELF Confirmed By:Pedro Pablo Castañeda
[2020-03-20 08:34] LABS: Potassium 3.5 mmol/L (3.5-5.1)
[2020-03-20] MEDS: METOPROLOL TARTRATE 25 MG TAB PO SCH ×2 (08:41→21:56)
[2020-03-20] MEDS: ASPIRIN 81 MG ECTAB PO SCH (08:41)
[2020-03-20] MEDS: HEPARIN SOD 5,000 UNIT/0.5 ML VIAL SQ SCH ×2 (08:44→21:55)
[2020-03-20] MEDS: CLOPIDOGREL BISULFATE 75 MG TAB PO SCH (08:48)
--- NOTE | 2020-03-20 10:06 | Neurology Consultation ---
Date of Consultation March 20, 2020 Assessment & Plan (1) Acute CVA (cerebrovascular accident): (2) Hemiparesis: (3) Hypertensive urgency: (4) Carotid stenosis, bilateral: (5) Elevated glucose: (6) Chronic cerebral ischemia: Patient has acute, multiple, varying sized strokes in the right h emisphere, mainly in the middle cerebral artery territory (as seen on MRI). This likely had its onset March 17. The etiology of these strokes is likely ischemic related to the severe right internal carotid artery stenosis as well as severe hypertension. On examination he has left arm greater than leg weakness with upper motor neuron signs suggestive of acute stroke. Other risk factors for stroke would include elevated glucose/diabetes and cigarette smoking. His alcohol use is moderate. Patient has right greater than left carotid stenosis being probably greater than 75 percent on the right and around 60 percent on the left. There is some milder stenosis high up in the cavernous portions of the carotids left greater than right side. The patient has significant small-vessel ischemia of an old nature seen on MRI, likely from his history of hypertension and cigarette smoking. Recommendations: 1. Continue clopidogrel 75 milligrams +80 1 milligram aspirin tablet daily for 3 weeks then changed to clopidogrel 75 milligrams daily alone. 2. Control blood pressure as you are doing, aiming for a mean arterial pressure of approximately 100. 3. Control glucose better trying to get the hemoglobin A1c closer to 6.0. 4. Agree with low-dose statin. He is not a candidate for high-dose statins given his lipid parameters today. 5. Increase activity as able. 6. He would be a candidate for right carotid endarterectomy in the next 4-6 weeks (I am not comfortable recommending that this surgery should be done acutely, given the size of his infarcts). Vascular surgery could be contacted. 7. Patient needs to establish with a primary care physician with [facility]. Overall, I spent a total of 100 minutes with this case including review of records, review of CT and MRI films (with Radiology), direct evaluation the patient at bedside, and discussing the case with the patient and RN at bedside, Dr. Mejias, and Dr. Iglesias, including differential diagnosis and treatment options. History of Present Illness Reason for Consultation: Patient is a 49-year-old, who I was asked to see the request of Dr. Iglesias, for neurologic consultation regarding stroke. Requesting Physician: Dr. Iglesias Attending Physician: Kian Iglesias MD History of Present Illness This patient has a history of significant coronary artery disease and hypertension for over 10 years. He had an VA in 2014. As far as he knows, he does not have any history of diabetes or dyslipidemia. He has been heavy cigarette smoker for many years, quitting couple of years ago but recently restarting in 5-6 cigarettes per day. 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 He has been living out of the homeless residential and recently has a job with [employer]. He has had some intermittent blurry vision in both eyes, which comes and goes, over the last 2 weeks. Sometime (around mid-day) on March 17 add the onset of left upper extremity weakness. This was somewhat gradual was progressive over 1-2 days. Did not feel that he had any leg weakness but he was a little wobbly walking. He did not fall. He had a little bit of numbness diffusely in the left upper extremity as well. He had no speech or mentation problem and no incontinence. The right upper extremity and both legs were asymptomatic. Because he woke up March 19 not feeling any better he went to the emergency room. He arrived to the emergency room March 19 at 0902, with a temperature of 37.1, pulse 116, blood pressure 219/139, respiratory rate of 20 and O2 saturation 98 percent. Exam was remarkable for left upper extremity weakness and drift. The legs and right arm were felt to be within normal limits. CBC showed an elevated H&H and Chem profile revealed a low potassium a glucose of 242 an elevated alk-phos of 134. ESR was 19 and troponin and CRP were elevated. Chest x-ray showed some cardiomegaly. CT scan of the head showed changes consistent with infarct in the right frontal, right parietal, and left occipital head regions. CT angiography of the head and neck revealed at least 75 percent stenosis in the right internal carotid artery. The left internal carotid artery was 60 percent stenotic. There was some cavernous carotid stenosis left greater than right side less than 40 percent. MRI of the brain revealed multiple scattered large and small infarcts in the right hemisphere (right middle cerebral artery territory) from frontal to posterior parietal head regions. There were no acute infarcts on the left. There was considerable old ischemia (including a left cerebellar hemisphere old lacune) noted bilaterally diffusely. I reviewed all of the CT and MRI images with Dr. Mejias, radiology. Echocardiogram revealed severe left ventricular hypertrophy with old inferior VA an ejection fraction of 45 percent. There is no evidence for thrombus and no shunt. This morning, hemoglobin A1c was 7.2, triglycerides 135 and total cholesterol 165. CBC was unremarkable and Chem profile was improved. TIBC and transferrin were low. The patient feels about the same with this condition today as he did yesterday. He has no new problems. Allergies Allergy/AdvReac Type Severity Reaction Status Date / Time No Known Allergies Allergy Unverified 03/19/20 10:50 Home Medications Home Medications Medication Instructions Recorded Confirmed Type diphenhydramine HCl [Sleep Tablet 25 mg PO HS PRN 03/19/20 03/19/20 History (diphenhydramine)] famotidine 10 mg PO DAILY 03/19/20 03/19/20 History Patient History Surgical History S/P drug eluting coronary stent placement Family History Mother , age 68 from metastatic lung cancer Lung cancer Father No problems noted. 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 Feels Safe at Home: Yes Safety Concerns: Feels Safe At This Time Smoking Status: Current every day smoker Tobacco Type: cigarettes ; Cigarettes Per Day: 5-6 ; Do You Dip or Chew Tobacco: No ; Hx Alcohol Use: Yes Alcohol type: beer Alcohol Intake Frequency Comment: 2-3 beers, several times per week Hx Substance Use: No Review of Systems Constitutional: + fatigue; no fever and no weakness Eyes: + problem reported (Occasional blurry vision bilaterally); no diplopia, no eye pain and no worsening vision Ear, Nose, Mouth, Throat: + dizziness; no ear pain, no tinnitus, no hearing loss, no hoarseness and no dysphagia Respiratory: no cough and no dyspnea Cardiovascular: no chest pain, no palpitations and no lightheadedness Gastrointestinal: no abdominal pain, no nausea and no vomiting Genitourinary: no dysuria and no urinary incontinence Musculoskeletal: no back pain, no neck pain, no radicular pain, no joint pain and no myalgia Integumentary: no rash and no lesions Neurologic: + gait abnormality, + localized weakness and + numbness; no generalized weakness, no tingling, no tremor(s), no abnormal movements, no headache(s), no abnormal speech, no confusion and no memory loss Psychiatric: no depression, no irritability, no anxiety, no difficulty concentrating, no confusion and no hallucinations Endocrine: + fatigue; no flushing Hematologic / Lymphatic: no easy bleeding and no easy bruising Allergy / Immunological: no urticaria and no problem reported Exam (Neuro) Physical Exam: The patient is right-handed. The patient is awake, alert, and attentive. Speech is normal without any aphasia or dysarthria. he can name objects, repeat phrases, and has normal spontaneous speech. Mentation and thought processes are intact, with orientation to person, place and time, and normal fund of knowledge. Attention and concentration are normal. Mood and affect are normal and appropriate. General appearance and grooming are normal. Short and long-term memory are intact to conversation. The discs are sharp with positive venous pulsations bilaterally. There are no exudates, hemorrhages, or blood vessel changes seen. Pupils are 4 mm bilaterally and reactive to light. Extraocular eye muscles are intact without nystagmus. Visual acuity and visual traylor seem normal grossly to confrontation. There are no deficits to sensation in the face in all 3 distributions of the fifth cranial nerve bilaterally. Corneal reflexes are positive bilaterally. Facial strength and symmetry was normal bilaterally. Hearing seems normal to whisper and finger rub bilaterally. Palate moves well without asymmetry. There is normal sternocleidomastoid and trapezius (shoulder shrug) strength bilaterally. Tongue is midline with good strength bilaterally. Neck has a full range of motion without discomfort. There are no cervical bruits bilaterally. There are no cranial or ocular bruits. Heart is without murmur. There is a regular rhythm and rate. Cervical, thoracic, and lumbar spine are nontender to palpation. Gait is slightly wide-based and he limps favoring the left leg. He holds his left arm flexed. With outstretched arms there is significant drift on the left. There are no resting, postural, or action tremors. There is no ataxia with finger to nose testing. There is decreased facility in left hand. No other abnormal involuntary movements are noted. Motor strength is 5/5 diffusely in the right upper extremity including deltoid, biceps, triceps, brachioradialis, wrist flexors and extensors, bankruptcy legal assistant, and intrinsic hand muscles. Motor strength is 4/5 diffusely in the left upper extremity. Motor strength is 5/5 diffusely in the right lower extremity including hip flexors, quadriceps, hamstrings, gastrocnemius, tibialis anterior, tibialis posterior, and Peroneii muscles. Toe extensors are normal and there is good bulk in the extensor digitorum brevis muscles bilaterally. The left lower extremity is 4+/5 diffusely. The limbs have good tone without rigidity or spasticity. There is no atrophy noted in the muscles. Muscle bulk is normal, there is no tenderness to palpation, no myotonia to percussion, and no fasciculations seen. Sensory examination is intact to touch and pin throughout all 4 limbs diffusely. Reflexes are 1/4 in the biceps, triceps, brachioradialis, quadriceps, and Achilles tendons on the right. These reflexes are 2/4 on the left. There is no clonus bilaterally. Toes are downgoing with plantar stimulation on the right and equivocal to upgoing on the left. Peripheral pulses are present and of normal quality distally in all 4 limbs. There is no peripheral edema noted in the limbs. Results & Data ([facility]) Vital Signs (Past 12 Hours) Vital Signs Temp Pulse Pulse Resp BP Pulse Ox 03/20/20 07:30 36.5 C 73 16 151/90 H 97 03/20/20 04:14 36.6 C 73 18 135/82 96 03/20/20 00:00 78 03/19/20 23:31 36.7 C 71 17 119/73 97 Diagnostic Findings MR brain wo con HISTORY: Mental status change Acute CVAs TECHNIQUE: Multiplanar multisequence MRI of the brain was performed without the use of contrast. COMPARISON STUDY: CT 03/19/2020 FINDINGS: Diffusion images demonstrate a rather large geographical area of cortical infarct over the right parietal convexity. Significant infarct involving the right occipital lobe as well as small punctate acute ischemic foci of the right occipital and right temporal lobe are present. Coronal FLAIR images demonstrate considerable chronic small vessel change . The ventricular system is midline. Internal auditory canals are symmetric. IMPRESSION: 1. Multiple right hemispheric acute/subacute infarct. 2. There is a large geographic cortical infarct superior right parietal convexity, with smaller infarcts involving the right occipital lobe as well as smaller foci of acute ischemic change of the right temporal occipital distribution. 3. Differential considerations are as noted previously 4. Considerable multifocal foci of increased signal suggesting a baseline chronic small vessel ischemic process. ACT 112: Negative or not required by law. The above report was generated using voice recognition software. It may contain grammatical, syntax or spelling errors. Electronically signed by: Chase Ba M.D. 03/19/2020 6:39 PM PG Care Time/CCT Total # of Minutes Spent Total Time Spent with Patient: Total time spent is greater than 50% in coordination of care (as documented) at patient's floor/unit and/or counseling patient: Coding Level of Care Code 72057 Initial Inpt Care Lvl 3 Diagnoses Acute CVA (cerebrovascular accident) I63.9 Hemiparesis G81.90 Hypertensive urgency I16.0 Carotid stenosis, bilateral I65.23 Elevated glucose R73.09 Chronic cerebral ischemia I67.82 Time Spent (min) 100 [place] [id number] to this [id number]
--- NOTE | 2020-03-20 11:16 | Cardiology Progress Note ---
Date of Service March 20, 2020 Assessment & Plan (1) Acute CVA (cerebrovascular accident): Patient presents several days duration of symptoms of waxing waning left arm weakness with CT scan of the head demonstrating multiple area distribution cerebral infarct right sided. Present setting with marked hypertension/hypertensive urgency Echocardiogram demonstrates severe left ventricular hypertrophy with old inferior infarct EF 45% no apical thrombus, no significant valvular disease, no shunt excellent agitated saline contrast interrogation. EKG and telemetry sinus mechanism Recommendations: Would treat cerebrovascular and cardiovascular risk factors. Treat hypertension. At time of dictation patient has received 1 dose of IV labetalol. Will begin oral metoprolol 25 mg twice per day in addition to as needed IV metoprolol ordered agree with antiplatelet therapy with aspirin and likely clopidogrel for an additional 30 days. Ultimate goal be initiation of KATELYN inhibitor as blood pressure stabilizes and renal function confirmed, high-dose statin in addition to antiplatelet therapy Per coagulable state may need to be evaluated Currently no cardiac indications for anticoagulation setting of hypertensive urgency/emergency and no cardiac source of embolus identified. Alternate poss ible sources include carotids, shaggy aorta. Would maintain telemetry Echocardiogram does demonstrate severe left hypertrophy likely hypertensive in etiology. Initial hemoglobin elevated exclusion of hemochromatosis warranted. Fabry disease and unlikely diagnosis but in the differential given severe LVH 03/20/2020 as above blood pressures have improved with oral metoprolol. Neurologic symptoms stable, no arrhythmias on telemetry patient as noted below previous on multiple drug regimen for hypertensive disease. Patient clinically warrants KATELYN inhibitor addition as blood pressure allows for cardiovascular and diabetic risk factor as well as control of hypertension (2) Hypertensive urgency: Clinically improving. In discussion with the patient prior to discontinuing all medications greater than 1 year ago he had been on a combination of therapies including beta-marcial, lisinopril and Catapres patch. Given underlying ischemic heart disease elevated glucoses would add KATELYN inhibitor this admission Continue oral beta-marcial (3) Carotid stenosis, bilateral: (4) History of UT (myocardial infarction): Patient with prior ST segment elevation myocardial infarction in 2013 with untreated cardiovascular risk factors. Troponin elevated but but flat with no significant segmental abnormalities observed on echo. EKG without any signs of evolution Would continue to treat cardiovascular disease as above with beta-marcial KATELYN inhibitor and statin, dual antiplatelet therapy as indicated for neurologic issues. Would recommend cardiology follow-up post hospital discharge to establish care and ongoing management 2 to 4 weeks time Subjective Patient was seen and examined, chart, medications, telemetry reviewed. Patient denies any chest pain shortness of breath or tachypalpitations. Still unsteady on his feet. No headache or nausea Telemetry reveals no arrhythmias Physical Exam Constitutional: WD/WN, vitals as above Eyes: PERRL, conjunctivae normal, anicteric sclerae ENMT: external ear and nose normal, oropharynx normal Neck: trachea midline, no thyromegaly Respiratory: normal respiratory effort, lungs clear to auscultation Cardiovascular: Rate/Rhythm: regular rate and regular rhythm Heart Sounds: normal S1 and normal S2; no gallop and no murmur Palpation: normal PMI Vessels: normal carotid upstroke and radial pulses present; no JVD and no carotid bruit Extremities: no edema Gastrointestinal (Abdomen): normal bowel sounds, soft, nontender, no hepatosplenomegaly Musculoskeletal: no cyanosis or clubbing, extremities motor strength 5/5 Skin: no rashes, warm and dry Neurologic: + focal motor deficit Psychiatric: A+Ox3, euthymic affect Results & Data Vital Signs (Past 12 Hours) Vital Signs Temp Pulse Pulse Resp BP Pulse Ox 03/20/20 07:30 36.5 C 73 16 151/90 H 97 03/20/20 04:14 36.6 C 73 18 135/82 96 03/20/20 00:00 78 03/19/20 23:31 36.7 C 71 17 119/73 97 Laboratory Results Laboratory Results - last 24 hr 03/19/20 03/19/20 03/19/20 15:52 15:52 15:52 WBC RBC Hgb Hct MCV MCH MCHC RDW Std Deviation RDW Coeff of Dione Plt Count MPV Immature Gran % (Auto) Neut % (Auto) Lymph % (Auto) Bladen % (Auto) Eos % (Auto) Baso % (Auto) Immature Gran # (Auto) Neut # (Auto) Lymph # (Auto) Bladen # (Auto) Eos # (Auto) Baso # (Auto) ESR 19 H Sodium Potassium Chloride Carbon Dioxide Anion Gap BUN Creatinine Est Cr Clr Drug Dosing Est GFR ( Amer) Est GFR (Non-Af Amer) BUN/Creatinine Ratio Glucose POC Glucose Estimat Average Glucose Hemoglobin A1c Hgb A1c Pathologist Com Calcium Iron TIBC Transferrin Ferritin Total Bilirubin AST ALT Alkaline Phosphatase Troponin I 0.299 H* C-Reactive Protein 0.53 H Total Protein Albumin Globulin Albumin/Globulin Ratio Triglycerides Cholesterol LDL Cholesterol, Calc VLDL Cholesterol, Calc HDL Cholesterol Cholesterol/HDL Ratio Vitamin B12 03/19/20 03/19/20 03/19/20 16:11 20:10 21:53 WBC RBC Hgb Hct MCV MCH MCHC RDW Std Deviation RDW Coeff of Dione Plt Count MPV Immature Gran % (Auto) Neut % (Auto) Lymph % (Auto) Bladen % (Auto) Eos % (Auto) Baso % (Auto) Immature Gran # (Auto) Neut # (Auto) Lymph # (Auto) Bladen # (Auto) Eos # (Auto) Baso # (Auto) ESR Sodium Potassium Chloride Carbon Dioxide Anion Gap BUN Creatinine Est Cr Clr Drug Dosing Est GFR ( Amer) Est GFR (Non-Af Amer) BUN/Creatinine Ratio Glucose POC Glucose 139 H 134 H Estimat Average Glucose Hemoglobin A1c Hgb A1c Pathologist Com Calcium Iron TIBC Transferrin Ferritin Total Bilirubin AST ALT Alkaline Phosphatase Troponin I 0.286 H* C-Reactive Protein Total Protein Albumin Globulin Albumin/Globulin Ratio Triglycerides Cholesterol LDL Cholesterol, Calc VLDL Cholesterol, Calc HDL Cholesterol Cholesterol/HDL Ratio Vitamin B12 03/20/20 03/20/20 03/20/20 06:08 06:08 06:08 WBC 8.96 RBC 5.39 Hgb 16.7 Hct 47.9 MCV 88.9 MCH 31.0 MCHC 34.9 RDW Std Deviation 48.8 H RDW Coeff of Dione 15.2 H Plt Count 150 MPV 10.7 H Immature Gran % (Auto) 0.6 Neut % (Auto) 63.0 Lymph % (Auto) 27.5 Bladen % (Auto) 6.8 Eos % (Auto) 1.8 Baso % (Auto) 0.3 Immature Gran # (Auto) 0.05 H Neut # (Auto) 5.65 Lymph # (Auto) 2.46 Bladen # (Auto) 0.61 H Eos # (Auto) 0.16 Baso # (Auto) 0.03 ESR Sodium 141 Potassium 3.5 D Chloride 109 H Carbon Dioxide 24 Anion Gap 8.0 BUN 12 Creatinine 0.95 D Est Cr Clr Drug Dosing 84.9 Est GFR ( Amer) 108.5 Est GFR (Non-Af Amer) 93.6 BUN/Creatinine Ratio 12.2 Glucose 115 H POC Glucose Estimat Average Glucose 160 Hemoglobin A1c 7.2 H Hgb A1c Pathologist Com Pending Calcium 8.1 L D Iron 84 TIBC 214 L Transferrin 179 L Ferritin 176.6 Total Bilirubin 1.5 H AST 18 ALT 22 Alkaline Phosphatase 99 Troponin I C-Reactive Protein Total Protein 6.3 L D Albumin 3.2 L Globulin 3.1 Albumin/Globulin Ratio 1.0 Triglycerides 135 Cholesterol 165 LDL Cholesterol, Calc 103 VLDL Cholesterol, Calc 27 HDL Cholesterol 35 Cholesterol/HDL Ratio 5 Vitamin B12 03/20/20 03/20/20 06:08 07:56 WBC RBC Hgb Hct MCV MCH MCHC RDW Std Deviation RDW Coeff of Dione Plt Count MPV Immature Gran % (Auto) Neut % (Auto) Lymph % (Auto) Bladen % (Auto) Eos % (Auto) Baso % (Auto) Immature Gran # (Auto) Neut # (Auto) Lymph # (Auto) Bladen # (Auto) Eos # (Auto) Baso # (Auto) ESR Sodium Potassium Chloride Carbon Dioxide Anion Gap BUN Creatinine Est Cr Clr Drug Dosing Est GFR ( Amer) Est GFR (Non-Af Amer) BUN/Creatinine Ratio Glucose POC Glucose 113 H Estimat Average Glucose Hemoglobin A1c Hgb A1c Pathologist Com Calcium Iron TIBC Transferrin Ferritin Total Bilirubin AST ALT Alkaline Phosphatase Troponin I C-Reactive Protein Total Protein Albumin Globulin Albumin/Globulin Ratio Triglycerides Cholesterol LDL Cholesterol, Calc VLDL Cholesterol, Calc HDL Cholesterol Cholesterol/HDL Ratio Vitamin B12 465
[2020-03-20] MEDS: ATORVASTATIN 20 MG TAB PO SCH (12:20)
--- NOTE | 2020-03-20 15:45 | Hospitalist Progress Note ---
Date of Service March 20, 2020 Assessment & Plan (1) Acute CVA (cerebrovascular accident): Presented with pain numbness and minimal weakness involving left upper extremity since Thursday last Noted drifting towards the left side with ambulation No other symptoms of stroke CT scan did not show acute infarcts involving the right frontal and parietal lobes Neck CTA showed more than 70% stenosis of the right internal carotid artery Stroke could be secondary to cholesterol emboli doubt any cardiac emboli Has been on aspirin and started with statin Neurochecks, speech therapy and neurology consult MRI of the head showed acute, multiple and varying size of strokes in the right hemisphere mainly in the middle cerebral artery territory Will be on aspirin and Plavix for 3 weeks then Plavix alone to continue, statin has been added, quit smoking and to be compliant with medications and follow-up Remains stable without any new symptom We will get PT and OT evaluation before discharging the patient (2) Carotid stenosis, bilateral: As above Severe stenosis on the right side, likely the cause of his stroke Will need outpatient vascular surgery appointment on discharge (3) Left arm weakness: As above (4) Hypertensive urgency: Acute infarcts of the right frontal and parietal lobes. Possibly from carotid disease. Aspirin given in the ED. Continued LUE weakness. No indication for TPA due to length of symptoms. Admit to telemetry for continued monitoring. Repeat EKG in AM. BP severely elevated upon admission. Given labetolol 10 mg in the ED with slight improvement. Give another 5 mg Lopressor now and then Q6h PRN for elevated systolic BP >160 or HR >100. Continue daily aspirin. Monitor for changing neurologic symptoms. Will call for permissive hypertension Oral beta-marcial has been started and down the line KATELYN inhibitor can be tried (5) Hypokalemia: 40 mEq given in the ED. Give another dose of 40 mEq of Potassium. Recheck BMP in AM. Will also continue NSS w/ 20 mEq KCl (6) Elevated glucose: Possible untreated diabetes. Check A1C in the AM. Start insulin protocol (7) Erythrocytosis: Possibly secondary to tobacco use history. Will check iron studies in the AM. (8) History of IL (myocardial infarction): In 2011 followed by cardiac cath and drug-eluting stent placement He was sent home on aspirin, Plavix, Coreg, nitrate and statin Apparently he has not taking any of his medications and has not had a follow-up with his primary care or engineering technologist for a long time. (9) Elevated troponin: Elevated troponin upon presentation. Possibly due to demand with severely elevated BP. Continue to trend troponin Q6h x 2 more. No acute change on EKG indicating new IL. Echo completed: Left ventricle is normal in size with severe concentric LV hypertrophy, grade 1 diastolic dysfunction, inferior wall is akinetic at the base and mid level, posterior wall severely hypokinetic at the base and wall other segment mildly hypokinetic in global fashion, EF 40 to 45% and trace AR trace MR Consult Cardiology. Discussed patient with Dr. Chris. Appreciate cardiology input and recommendation Statin has been added with Lipitor 40 mg once a day. Oral beta-marcial and consider KATELYN inhibitor down the line (10) Tobacco abuse: Advised to quit smoking (11) DVT prophylaxis: Heparin for now Admission and Anticipated Discharge Date Admission Date: March 19, 2020 Anticipated date of discharge: 03/21/20 Subjective 03/20/2020 Patient was seen and examined in telemetry unit His symptoms of left-sided numbness persist and denies any new symptom Generally feeling a little bit better Denies any chest pain, shortness of breath, palpitation, no abdominal pain, nausea and or vomiting Review of Systems Review of Systems: All systems reviewed and are unremarkable except as noted below Physical Exam Physical Exam: Lying in bed comfortably with anxiety Constitutional: well developed, well nourished and + ill appearing; no acute distress Eyes: PERRL, conjunctivae normal, anicteric sclerae ENMT: external ear and nose normal, oropharynx normal Neck: trachea midline, no thyromegaly Respiratory: normal respiratory effort; no respiratory distress Auscultation: lungs clear to auscultation bilaterally Cardiovascular: Rate/Rhythm: regular rate and regular rhythm Heart Sounds: no murmur Extremities: no pedal edema Gastrointestinal (Abdomen): Inspection/Auscultation: abdomen normal to inspection and normal bowel sounds Percussion/Palpation: abdomen soft; abdomen nontender Musculoskeletal: No acute arthritis in any joints Neurologic: Numbness and weakness involving the left upper extremity remain. Tends to fall towards the left side with ambulation Lymphatic: no cervical or axillary lymphadenopathy Results & Data Results & Data ([facility]) Vital Signs (Past 12 Hours) Vital Signs Temp Pulse Pulse Resp BP Pulse Ox 03/20/20 08:00 36.9 C 75 20 129/78 90 05/05/20 07:50 70 03/20/20 07:30 36.5 C 73 16 151/90 H 97 03/20/20 04:14 36.6 C 73 18 135/82 96 Laboratory Results Short CBC 03/20/20 Range/Units 06:08 WBC 8.96 (4.8-10.8) K/uL Hgb 16.7 (14.0-18.0) g/dL Hct 47.9 (42-52) % Plt Count 150 (130-400) K/uL BMP 03/20/20 06:08 Sodium 141 Potassium 3.5 D Chloride 109 H Carbon Dioxide 24 BUN 12 Creatinine 0.95 D Glucose 115 H Calcium 8.1 L D Cardiac Enzymes 03/19/20 03/19/20 Range/Units 15:52 21:53 Troponin I 0.299 H* 0.286 H* (0-0.045) ng/ml Liver Function 03/20/20 Range/Units 06:08 Total Bilirubin 1.5 H (0.2-1) mg/dl AST 18 (15-37) U/L ALT 22 (12-78) U/L Alkaline Phosphatase 99 (45-117) U/L Albumin 3.2 L (3.4-5.0) gm/dl Medications Administered Current Inpatient Medications Acetaminophen (Tylenol) 650 mg PO Q4H PRN PRN Reason: Pain or Fever Stop: 04/18/20 14:46 Aspirin (Ecotrin Ectab) 81 mg PO [facility] Stop: 04/19/20 08:59 Last Admin: 03/20/20 08:41 Dose: 81 mg Documented by: Atorvastatin Calcium (Lipitor) 20 mg PO [facility] Stop: 04/19/20 10:59 Last Admin: 03/20/20 12:20 Dose: 20 mg Documented by: Clopidogrel Bisulfate (Plavix) 75 mg PO [facility] Stop: 04/19/20 08:59 Last Admin: 03/20/20 08:48 Dose: 75 mg Documented by: Dextrose (Dextrose 50%) 25 - 50 ml IV UD PRN; Protocol PRN Reason: Hypoglycemia Protocol Stop: 04/18/20 14:46 Glucagon (Glucagen) 1 mg SQ UD PRN; Protocol PRN Reason: Hypoglycemia Protocol Stop: 04/18/20 14:46 Glucose (Dex4 Glucose) 4 - 8 tabs PO UD PRN; Protocol PRN Reason: Hypoglycemia Protocol Stop: 04/18/20 14:46 Glucose (Glucose 40%) 15 - 30 gm PO UD PRN; Protocol PRN Reason: Hypoglycemia Protocol Stop: 04/18/20 14:46 Heparin Sodium (Porcine) (Heparin Sodium (Porcine)) 5,000 units SQ Q12 [facility] Stop: 04/18/20 20:59 Last Admin: 03/20/20 08:44 Dose: Not Given Documented by: Potassium Chloride/Sodium Chloride (Normal Saline W/20 Meq Kcl) 20 meq in 1,000 mls @ 80 mls/hr IV .[id number] [facility] Stop: 03/21/20 04:59 Last Admin: 03/20/20 04:13 Dose: 80 mls/hr Documented by: Insulin Aspart (Novolog Flexpen) 0 units SC ACHS [facility] Stop: 04/18/20 16:29 Last Admin: 03/20/20 12:03 Dose: 2 units Documented by: Insulin Glargine (Lantus Solostar Pen) 5 units SC BID [facility] Stop: 04/18/20 20:59 Last Admin: 03/20/20 08:27 Dose: Not Given Documented by: Metoprolol Tartrate (Lopressor) 5 mg IV Q6 PRN PRN Reason: Hypertension Stop: 04/18/20 14:46 Metoprolol Tartrate (Lopressor) 25 mg PO BID [facility] Stop: 04/18/20 20:59 Last Admin: 03/20/20 08:41 Dose: 25 mg Documented by: Miscellaneous (Carbohydrates For Hypoglycemia) 15 - 30 gm PO UD PRN PRN Reason: Hypoglycemia Protocol Stop: 04/18/20 14:46 Miscellaneous Information (Pharmacist Discharge Med Rec Consult) 1 ea N/A UD PRN PRN Reason: Consult Stop: 04/18/20 14:46
[2020-03-20] MEDS ORDERED: POTASSIUM CHLORIDE 20 MEQ TABCR PO ONE (16:00)
[2020-03-20] MEDS ORDERED: ZOLPIDEM TARTRATE 5 MG TAB PO STA (22:14)
[2020-03-21 07:10] LABS: Basophils # (auto) 0.02 K/uL (0-0.2); Basophils % (auto) 0.1 %; Eosinophils # (auto) 0.07 K/uL (0-0.5); Eosinophils % (auto) 0.4 %; Hematocrit (blood only) 49.9 % (42-52); Hemoglobin 17.7 g/dL (14.0-18.0); Immature Granulocytes # (auto) 0.07 K/uL (0.00-0.02); Immature Granulocytes % (auto) 0.4 %; Lymphocytes # (auto) 1.57 K/uL (1.2-3.4); Lymphocytes % (auto) 9.7 %; Mean Corpuscular Hemoglobin 31.2 pg (25-34); Mean Corpuscular Hgb Conc 35.5 g/dL (32-36); Monocytes # (auto) 1.18 K/uL (0.11-0.59); Monocytes % (auto) 7.3 %; Neutrophils # (auto) 13.33 K/uL (1.4-6.5); Neutrophils % (auto) 82.1 %; Platelet Count 136 K/uL (130-400); RDW Coefficient of Variation 15.1 % (11.5-14.5); RDW Standard Deviation 47.9 fL (36.4-46.3); Red Blood Count 5.67 M/uL (4.7-6.1); White Blood Count 16.24 K/uL (4.8-10.8)
[2020-03-21 07:38] LABS: BUN Creatinine Ratio 15.2 (10-20); Calcium 8.8 mg/dl (8.5-10.1); Creatinine Clr Calc Pharmacy 83.1 ml/min; Est GFR (African American) 105.8; Est GFR (Non-African American) 91.3; Potassium 3.9 mmol/L (3.5-5.1)
[2020-03-21] MEDS: INSULIN ASPART 100 UNITS/ML 3 ML PEN SC SCH ×4 (08:07→20:49)
[2020-03-21] MEDS: ASPIRIN 81 MG ECTAB PO SCH (08:11)
[2020-03-21] MEDS: CLOPIDOGREL BISULFATE 75 MG TAB PO SCH (08:11)
[2020-03-21] MEDS: METOPROLOL TARTRATE 25 MG TAB PO SCH (08:11)
[2020-03-21] MEDS: ATORVASTATIN 20 MG TAB PO SCH (08:12)
[2020-03-21] MEDS: HEPARIN SOD 5,000 UNIT/0.5 ML VIAL SQ SCH ×2 (08:12→20:49)
[2020-03-21] MEDS: INSULIN GLARGINE SOLOSTAR 100 UNITS/ML 3 ML PEN SC SCH ×2 (08:13→20:49)
--- NOTE | 2020-03-21 09:23 | Neurology Progress Note ---
Date of Service March 21, 2020 Assessment & Plan (1) Acute CVA (cerebrovascular accident): (2) Hemiparesis: (3) Hypertensive urgency: (4) Carotid stenosis, bilateral: (5) Elevated glucose: (6) Chronic cerebral ischemia: Patient has acute, multiple, varying sized strokes in the right hemisp here, mainly in the middle cerebral artery territory (as seen on MRI). Onset was likely March 17. The etiology of these strokes is ischemic related to the severe right internal carotid artery stenosis as well as severe hypertension. On examination he has left arm greater than left leg weakness, with upper motor neuron signs consistent with subacute stroke. In addition to his severe hypertension, other stroke risk factors would include elevated glucose/diabetes and cigarette smoking. His alcohol use is moderate. Patient has right greater than left carotid stenoses (at the origins), being pro bably greater than 75 percent on the right and around 60 percent on the left. There is some milder stenosis high up in the cavernous portions of the carotids left greater than right side. The patient has significant small-vessel ischemia of an old nature seen on MRI, likely from his history of hypertension and cigarette smoking. Recommendations: 1. Continue clopidogrel 75 milligrams +80 1 milligram aspirin tablet daily for a total of 3 weeks then change to clopidogrel 75 milligrams daily alone. 2. Control blood pressure, aiming for a mean arterial pressure of approximately 100. 3. Continue to control glucose, aiming for a hemoglobin A1c closer to 6.0. 4. Continue low-dose statin. He is not a candidate for high-dose statins given his lipid parameters today. 5. Increase activity as able. 6. He would be a candidate for right carotid endarterectomy in the next 4-6 weeks (I am not comfortable recommending that this surgery should be done acutely, given the size of his infarcts). Consult vascular surgery. 7. Patient needs to establish with a primary care physician (apparently has someone in the [employer] system). 8. Consult social service as the patient is currently homeless but does live in a prison. Overall, I spent a total of 35 minutes with this case including review of records, direct evaluation the patient at bedside, and discussion of the case with the patient and RN at bedside including differential diagnosis and treatment options. Admission and Anticipated Discharge Date Admission Date: March 19, 2020 Anticipated date of discharge: 03/21/20 Subjective Patient continues to have some left upper extremity weakness but this is about the same. His leg is about the same as well. He has no pain. Last night he took Ambien for sleep. He had a period of confusion/agitation on this. This morning he has come and nursing reports no for issues. Blood pressure is 172/106. Temperature is 36.9. CBC shows increase in white count without anemia. Chem profile is reasonable and his glucose is down to 130 this morning Results & Data ([facility]) Vital Signs (Past 12 Hours) Vital Signs Temp Pulse Pulse Resp BP Pulse Ox 03/21/20 07:20 36.9 C 90 18 172/106 H 94 03/21/20 03:50 36.7 C 82 18 158/88 H 96 03/21/20 00:32 85 03/20/20 23:34 36.7 C 66 18 164/100 H 97 03/20/20 22:21 78 Exam (Neuro) Physical Exam: He is awake and alert. Speech is without aphasia or dysarthria. Mood and affect are normal appropriate. Thought processes are intact with good long and short-term memory. Extraocular eye muscles are intact without nystagmus. There is no facial droop. Tongue is midline. With outstretched arms there is drift on the left. There is clumsiness in the left hand and strength is 4/5 in the left upper extremity compared to right which is 5/5. The left lower extremity is 4+/5 diffusely compared to the right which is 5/5. PG Care Time/CCT Total # of Minutes Spent Total Time Spent with Patient: Total time spent is greater than 50% in coordination of care (as documented) at patient's floor/unit and/or counseling patient: Coding Level of Care Code 81937 Subseq Hosp Care Lvl 3 Diagnoses Acute CVA (cerebrovascular accident) I63.9 Hemiparesis G81.90 Hypertensive urgency I16.0 Carotid stenosis, bilateral I65.23 Elevated glucose R73.09 Chronic cerebral ischemia I67.82 Time Spent (min) 35
--- NOTE | 2020-03-21 10:04 | Psychiatric Consultation ---
Date of Consultation March 21, 2020 Impression / Recommendations Impression Dr. Darcy Quiroga was directly involved in review and discussion of the patient's case and participated in medical decision making regarding treatment recommendations. RECOMMENDATIONS: 03/21 - Patient requested psychiatric consultation to discuss concerns for depression. While patient reports episodes of low mood for several days, he does admit to improvement in mood and anxiety as situational stressors improve. Given patient's medical comorbidities it is recommended that mood is monitored and changes are discussed with a therapist; however, it does not appear that patient meets clinical criteria for major depressive disorder and there does not seem to be an acute need to initiate psychotropic medications at this time. - Pt is denying SI and any acute safety concerns - no indicate for inpatient psychiatric treatment - Pt is agreeable with therapy referral, will explore options with [facility] nurse navigator regarding therapy options in the community. - Should depressive symptoms become more pronounced or debilitating, antidepressant medications can be explored. At that time, initiation of an SSRI could be considered. Basic education was provided to the patient regarding treatment options for anxiety and depression. - Appreciate the opportunity to participate in the care of this patient. Please contact our service with any questions or updates. Risk Factors Assessment Do You Have Access To A Gun?: No Psych History Identifying Data 49-year-old male admitted medically on 03/19/2020 after presenting to the ED with left upper extremity weakness - imaging consistent with acute CVA. Pt has a history of an NE in 2013 - therefore neurology and cardiology have both been consulted during this hospitalization. Psychiatric consultation was reportedly requested by the patient to evaluate for depression. Chief Complaint "Ok, oh yeah. So, I've been having anxiety and a depressed state. Like more than just the blues sometimes." History of Present Illness Deyvi Bansal is a 49-year-old male admitted medically on 03/19/2020 after presenting to the ED with left upper extremity weakness - imaging in ED was consistent with acute CVA. PMH is significant for NE in 2013, pancreatitis, HTN, and now CVA. Cardiology and Neurology have been consulted during patient's hospitalization. It is reported that the patient requested a psychiatric consultation to discuss his concern for depression. Pt is cooperative with psychiatric evaluation. Pt states that he has noticed some changes in his mood for the past 3 months, but states it is episodic and often related to situational stressors. Pt states that his recent concerns have been related to his housing options as well a employment. Pt states he has been in stable housing for the past month and has been employed at [employer] for that period of time as well. Pt does admit to episodes of racing thoughts and intermittent thoughts of helplessness related to various medical conditions. Pt did report feeling more emotional (episodes of increased irritability, rare crying spells, etc.), but denied concerns related to motivation, appetite, sleep, or energy. In the context of racing thoughts, he reports occasional feelings of "I'll just have to deal with these health issues", but denies overt SI. Pt denies history of suicidality in the past and denied suicide attempts. Pt states he has never been evaluated for mental health conditions in the past and does not have a history of inpatient or outpatient psychiatric treatment. Pt did verbalize a willingness to explore therapy options and was provided with basic education on first-line medication options for depression and anxiety. Pt denies SI, HI, SIB, A/V hallucinations, paranoia, meli/hypomania, other symptoms more suggestive of a bipolar presentation, OCD, PTSD, eating disorder, and other specific psychiatric symptoms. Past Psychiatric History Outpatient Services: Denies current psychiatric services Previous Psych Admissions: Denies Do You Have Access To A Gun?: No History of Previous Suicide Attempt: No Past Medication Trials: Denies previous anti-depressant/anti-anxiety medication trials. Allergies Allergy/AdvReac Type Severity Reaction Status Date / Time No Known Allergies Allergy Unverified 03/19/20 10:50 Home Medications Home Medications Medication Instructions Recorded Confirmed Type diphenhydramine HCl [Sleep Tablet 25 mg PO HS PRN 03/19/20 03/19/20 History (diphenhydramine)] famotidine 10 mg PO DAILY 03/19/20 03/19/20 History Family History Pt reports mother had anxiety, suffered with occasional panic attacks. Denies other known psychiatric conditions, denies known family history of suicide attempts or completion. Substance Abuse History Pt reports long history of tobacco use - but limited use in the past month. Pt states he used chewing tobacco from "as soon as you can walk" until his early- 20's. Denies alcohol use in the past month - previously consumed 2-3 beers about 3-4 days per week. States alcohol use is not permitted in the housing transitions program. Pt denies use of illicit substances. 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 Social History Preferred Language: Latvian Communication Ability: Effective Nanny Caregiver Required: No Beliefs That Will Affect Care: None Current Living Situation: Homeless Current Living Situation Comment: lives at [facility] current occupational status: previously employed current occupation: [employer] 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 Feels Safe at Home: Yes Safety Concerns: Feels Safe At This Time Smoking Status: Current every day smoker Tobacco Type: cigarettes ; Cigarettes Per Day: 5-6 ; Do You Dip or Chew Tobacco: No ; Hx Alcohol Use: Yes Alcohol type: beer Alcohol Intake Frequency Comment: 2-3 beers, several times per week Hx Substance Use: No Physical Exam Psychiatric: Orientation: alert, oriented x 3 and cooperative (and pleasant) Apperance: appropriately groomed Eye Contact: good eye contact Motor Behavior: no abnormal motor movements (observed while laying in bed) Speech: normal rate/rhythm/volume of speech Affect: + blunted affect (appear subdued, but not necessarily depressed ) Mood: + anxious mood ("It's more the anxiety") Thought Process: goal directed thought process, clear/coherent thought process and thought association intact Thought Content: reality based without delusions and + hopelessness (intermittently) Suicidal Thoughts: denies suicidal thoughts and denies suicidal intent Homicidal Thoughts: denies homicidal thoughts Hallucinations: no auditory hallucinations and no visual hallucinations Cognition: recent memory grossly intact, remote memory grossly intact, attention grossly intact and language grossly intact Estimated Intelligence: consistent with education level Insight: good insight Judgement: good judgement Vital Signs (Past 24 Hours): Last Vital Signs Temp 36.9 C 03/21/20 07:20 Pulse 90 03/21/20 07:20 Resp 18 03/21/20 07:20 BP 172/106 H 03/21/20 07:20 Pulse Ox 94 03/21/20 07:20 Review of Systems Constitutional: reports headache this morning, morning grogginess after Ambien last evening Cardiovascular: denied Respiratory: denied Gastrointestinal: denied Neurological: denied Psychiatric: denies symptoms other than stated above Total of at least 10 systems reviewed, pertinent positives as above and in HPI. Results & Data ([facility]) Medications Administered Acetaminophen (Tylenol) 650 mg PO Q4H PRN PRN Reason: Pain or Fever Stop: 04/18/20 14:46 Last Admin: 03/21/20 08:17 Dose: 650 mg Documented by: [id number] Aspirin (Ecotrin Ectab) 81 mg PO [facility] Stop: 04/19/20 08:59 Last Admin: 03/21/20 08:11 Dose: 81 mg Documented by: [id number] Admin: 03/20/20 08:41 Dose: 81 mg Documented by: [id number] Atorvastatin Calcium (Lipitor) 20 mg PO [facility] Stop: 04/19/20 10:59 Last Admin: 03/21/20 08:12 Dose: 20 mg Documented by: [id number] Admin: 03/20/20 12:20 Dose: 20 mg Documented by: [id number] Clopidogrel Bisulfate (Plavix) 75 mg PO [facility] Stop: 04/19/20 08:59 Last Admin: 03/21/20 08:11 Dose: 75 mg Documented by: [id number] Admin: 03/20/20 08:48 Dose: 75 mg Documented by: [id number] Heparin Sodium (Porcine) (Heparin Sodium (Porcine)) 5,000 units SQ Q12 [facility] Stop: 04/18/20 20:59 Last Admin: 03/21/20 08:12 Dose: 5,000 units Documented by: [id number] Cosigned by: [id number] Admin: 03/20/20 21:55 Dose: Not Given Documented by: [id number] Admin: 03/20/20 08:44 Dose: Not Given Documented by: [id number] Admin: 03/19/20 21:36 Dose: 5,000 units Documented by: [id number] Cosigned by: [id number] Insulin Aspart (Novolog Flexpen) 0 units SC ACHS [facility] Stop: 04/18/20 16:29 Last Admin: 03/21/20 08:07 Dose: 7 units Documented by: [id number] Cosigned by: [id number] Admin: 03/20/20 21:56 Dose: Not Given Documented by: [id number] Cosigned by: [id number] Admin: 03/20/20 17:28 Dose: 5 units Documented by: [id number] Cosigned by: [id number] Admin: 03/20/20 12:03 Dose: 2 units Documented by: [id number] Cosigned by: [id number] Admin: 03/20/20 08:26 Dose: 8 units Documented by: [id number] Cosigned by: [id number] Admin: 03/19/20 21:37 Dose: 2 units Documented by: [id number] Cosigned by: [id number] Admin: 03/19/20 17:11 Dose: Not Given Documented by: [id number] Cosigned by: [id number] Insulin Glargine (Lantus Solostar Pen) 5 units SC BID [facility] Stop: 04/18/20 20:59 Last Admin: 03/21/20 08:13 Dose: 5 units Documented by: [id number] Cosigned by: [id number] Admin: 03/20/20 21:57 Dose: 5 units Documented by: [id number] Cosigned by: [id number] Admin: 03/20/20 08:27 Dose: Not Given Documented by: [id number] Admin: 03/19/20 21:39 Dose: 5 units Documented by: [id number] Cosigned by: [id number] Metoprolol Tartrate (Lopressor) 25 mg PO BID [facility] Stop: 04/18/20 20:59 Last Admin: 03/21/20 08:11 Dose: 25 mg Documented by: [id number] Admin: 03/20/20 21:56 Dose: 25 mg Documented by: [id number] Admin: 03/20/20 08:41 Dose: 25 mg Documented by: [id number] Admin: 03/19/20 21:40 Dose: 25 mg Documented by: [id number] Coding Level of Care Code 62479 [facility] Intl Hosp Care Lvl 2
--- NOTE | 2020-03-21 10:33 | Cardiology Progress Note ---
Date of Service March 21, 2020 Assessment & Plan (1) Acute CVA (cerebrovascular accident): Patient presents several days duration of symptoms of waxing waning left arm weakness with CT scan of the head demonstrating multiple area distribution cerebral infarct right sided. Present setting with marked hypertension/hypertensive urgency Echocardiogram demonstrates severe left ventricular hypertrophy with old inferior infarct EF 45% no apical thrombus, no significant valvular disease, no shunt excellent agitated saline contrast interrogation. EKG and telemetry sinus mechanism Recommendations: Blood pressures are climbing higher this morning we will increase metoprolol to 50 twice daily, add KATELYN inhibitor (2) Hypertensive urgency: Clinically improving. In discussion with the patient prior to discontinuing all medications greater than 1 year ago he had been on a combination of therapies including beta-marcial, lisinopril and Catapres patch. Given underlying ischemic heart disease elevated glucoses would add KATELYN inhibitor this admission Continue oral beta-marcial (3) Carotid stenosis, bilateral: (4) History of [place] (myocardial infarction): Patient with prior ST segment elevation myocardial infarction in 2013 with untreated cardiovascular risk factors. Troponin elevated but but flat with no significant segmental abnormalities observed on echo. EKG without any signs of evolution Would continue to treat cardiovascular disease as above with beta-marcial KATELYN inhibitor and statin, dual antiplatelet therapy as indicated for neurologic issues. Would recommend cardiology follow-up post hospital discharge to establish care and ongoing management 2 to 4 weeks time Physical Exam Constitutional: WD/WN, vitals as above ENMT: external ear and nose normal, oropharynx normal Respiratory: Auscultation: + diminished lung sounds Cardiovascular: Rate/Rhythm: regular rate and regular rhythm Heart Sounds: normal S1 and normal S2; no murmur Vessels: no JVD Extremities: no edema Gastrointestinal (Abdomen): normal bowel sounds, soft, nontender, no hepatosplenomegaly Results & Data Vital Signs (Past 12 Hours) Vital Signs Temp Pulse Pulse Resp BP Pulse Ox 03/21/20 07:20 36.9 C 90 18 172/106 H 94 03/21/20 03:50 36.7 C 82 18 158/88 H 96 03/21/20 00:32 85 03/20/20 23:34 36.7 C 66 18 164/100 H 97
[2020-03-21] MEDS ORDERED: METOPROLOL TARTRATE 25 MG TAB PO ONE (11:00)
[2020-03-21] MEDS: lisinopriL 5 MG TAB PO SCH (11:38)
--- NOTE | 2020-03-21 19:23 | Hospitalist Progress Note ---
Date of Service March 21, 2020 Assessment & Plan (1) Acute CVA (cerebrovascular accident): per Dr. Iglesias's notes (previous attending): CT scan did not show acute infarcts involving the right frontal and parietal lobes Neck CTA showed more than 70% stenosis of the right internal carotid artery MRI of the head showed acute, multiple and varying size of strokes in the right hemisphere mainly in the middle cerebral artery territory Neurologist consulted Will be on aspirin and Plavix for 3 weeks then Plavix alone to continue, statin has been added, quit smoking and to be compliant with medications and follow-up PT/OT recommend home health with PT/OT (2) Carotid stenosis, bilateral: As above Severe stenosis on the right side, likely the cause of his stroke Will need outpatient vascular surgery appointment on discharge for CEA (3) Left arm weakness: As above (4) Hypertensive urgency: Metoprolol increased to 50mg BID Lisinopril 5mg po daily started monitor BP (5) Hypokalemia: resolved (6) Elevated glucose: DM 2 a1c 7.2 currently on Lantus, and ISS will d/c on Metformin (7) Erythrocytosis: Possibly secondary to tobacco use history. Iron 84 (8) History of [place] (myocardial infarction): In 2012 followed by cardiac cath and drug-eluting stent placement has not been adherent to medical therapy (9) Elevated troponin: per Dr. Iglesias's notes (previous attending): Elevated troponin upon presentation. Possibly due to demand with severely elevated BP. Continue to trend troponin Q6h x 2 more. No acute change on EKG indicating new IL. Echo completed: Left ventricle is normal in size with severe concentric LV hypertrophy, grade 1 diastolic dysfunction, inferior wall is akinetic at the base and mid level, posterior wall severely hypokinetic at the base and wall other segment mildly hypokinetic in global fashion, EF 40 to 45% and trace AR trace MR Consult Cardiology. Discussed patient with Dr. Chris. Appreciate cardiology input and recommendation Statin has been added with Lipitor 40 mg once a day. started on Metoprolol and Lisinopril (10) Tobacco abuse: Advised to quit smoking (11) DVT prophylaxis: Heparin for now Admission and Anticipated Discharge Date Admission Date: March 19, 2020 Anticipated date of discharge: 03/21/20 Subjective ff up for acute CVA seen resting in bed, not in distress, comfortable states his left UE weakness and decreased sensation is about the same as yesterday no new neurologic deficits denies chest pain, dyspnea, dizziness, palpitations reports feeling depressed sometimes , was anxious last night in light of new diagnosis of stroke denies suicidal ideation no other symptoms Review of Systems Review of Systems: All systems reviewed & are unremarkable except as noted in HPI & below Physical Exam Physical Exam: General- oriented x 3, not in distress, speaks in sentences with no effort or accessory muscle use Head- atraumatic Eyes- PERRL, EOMI, anicteric ENT- oropharynx clear Neck- supple, no JVD, no adenopathy, no thyromegaly; carotids +2/2, no bruits appreciated Lungs- clear to auscultation bilaterally, no rales/wheezes Heart- normal rate, regular rhythm; no murmur, no gallop, no rub appreciated Abdomen- normal bowel sounds, nondistended, soft, nontender, no masses or hepatosplenomegaly Extremities- no pretibial edema, no calf tenderness; peripheral pulses intact Neuro- alert, oriented x 3; CN 2-12 grossly intact; RU and RL ext motor 5/5 bilaterally RU and RL ext motor 4/5;sensation 100% on right side, 75% on the Left; no other gross focal neurologic deficits Skin- warm & dry Results & Data Results & Data ([facility]) Vital Signs (Past 12 Hours) Vital Signs Temp Pulse Resp BP Pulse Ox 03/21/20 19:15 36.9 C 80 23 149/78 H 95 03/21/20 15:35 36.7 C 95 H 20 129/78 95 03/21/20 11:29 36.7 C 71 20 141/87 H 97 Laboratory Results Laboratory Results - last 24 hr 03/20/20 03/21/20 03/21/20 20:36 06:28 06:28 WBC 16.24 H RBC 5.67 Hgb 17.7 Hct 49.9 MCV 88.0 MCH 31.2 MCHC 35.5 RDW Std Deviation 47.9 H RDW Coeff of Dione 15.1 H Plt Count 136 MPV 11.0 H Immature Gran % (Auto) 0.4 Neut % (Auto) 82.1 Lymph % (Auto) 9.7 Stewart % (Auto) 7.3 Eos % (Auto) 0.4 Baso % (Auto) 0.1 Immature Gran # (Auto) 0.07 H Neut # (Auto) 13.33 H Lymph # (Auto) 1.57 Stewart # (Auto) 1.18 H Eos # (Auto) 0.07 Baso # (Auto) 0.02 Sodium 137 Potassium 3.9 Chloride 109 H Carbon Dioxide 20 L Anion Gap 8.0 BUN 15 Creatinine 0.97 Est Cr Clr Drug Dosing 83.1 Est GFR ( Amer) 105.8 Est GFR (Non-Af Amer) 91.3 BUN/Creatinine Ratio 15.2 Glucose 131 H POC Glucose 112 H Calcium 8.8 Magnesium 2.0 03/21/20 03/21/20 03/21/20 07:22 11:35 16:19 WBC RBC Hgb Hct MCV MCH MCHC RDW Std Deviation RDW Coeff of Dione Plt Count MPV Immature Gran % (Auto) Neut % (Auto) Lymph % (Auto) Stewart % (Auto) Eos % (Auto) Baso % (Auto) Immature Gran # (Auto) Neut # (Auto) Lymph # (Auto) Stewart # (Auto) Eos # (Auto) Baso # (Auto) Sodium Potassium Chloride Carbon Dioxide Anion Gap BUN Creatinine Est Cr Clr Drug Dosing Est GFR ( Amer) Est GFR (Non-Af Amer) BUN/Creatinine Ratio Glucose POC Glucose 128 H 110 H 120 H Calcium Magnesium
[2020-03-21] MEDS: METOPROLOL TARTRATE 50 MG TAB PO SCH (20:38)
[2020-03-21] MEDS ORDERED: ZOLPIDEM TARTRATE 5 MG TAB PO PRN (21:17)
[2020-03-22 07:12] LABS: Basophils # (auto) 0.02 K/uL (0-0.2); Basophils % (auto) 0.2 %; Eosinophils # (auto) 0.16 K/uL (0-0.5); Eosinophils % (auto) 1.8 %; Hematocrit (blood only) 48.9 % (42-52); Hemoglobin 17.4 g/dL (14.0-18.0); Immature Granulocytes # (auto) 0.06 K/uL (0.00-0.02); Immature Granulocytes % (auto) 0.7 %; Lymphocytes # (auto) 2.01 K/uL (1.2-3.4); Lymphocytes % (auto) 22.3 %; Mean Corpuscular Hemoglobin 31.6 pg (25-34); Mean Corpuscular Hgb Conc 35.6 g/dL (32-36); Mean Corpuscular Volume 88.7 fL (80-100); Monocytes # (auto) 0.67 K/uL (0.11-0.59); Monocytes % (auto) 7.4 %; Neutrophils # (auto) 6.09 K/uL (1.4-6.5); Neutrophils % (auto) 67.6 %; Platelet Count 140 K/uL (130-400); RDW Coefficient of Variation 15.1 % (11.5-14.5); RDW Standard Deviation 48.6 fL (36.4-46.3); Red Blood Count 5.51 M/uL (4.7-6.1); White Blood Count 9.01 K/uL (4.8-10.8)
[2020-03-22 07:44] LABS: BUN Creatinine Ratio 17.2 (10-20); Calcium 8.6 mg/dl (8.5-10.1); Creatinine Clr Calc Pharmacy 75.4 ml/min; Est GFR (Non-African American) 81.1
[2020-03-22] MEDS: INSULIN ASPART 100 UNITS/ML 3 ML PEN SC SCH ×2 (08:44→12:33)
[2020-03-22] MEDS: METOPROLOL TARTRATE 50 MG TAB PO SCH (08:45)
[2020-03-22] MEDS: CLOPIDOGREL BISULFATE 75 MG TAB PO SCH (08:46)
[2020-03-22] MEDS: ASPIRIN 81 MG ECTAB PO SCH (08:47)
[2020-03-22] MEDS: INSULIN GLARGINE SOLOSTAR 100 UNITS/ML 3 ML PEN SC SCH (08:53)
[2020-03-22] MEDS: HEPARIN SOD 5,000 UNIT/0.5 ML VIAL SQ SCH (08:53)
[2020-03-22] MEDS: lisinopriL 5 MG TAB PO SCH (08:53)
[2020-03-22] MEDS: ATORVASTATIN 20 MG TAB PO SCH (08:54)
--- NOTE | 2020-03-22 09:47 | Neurology Progress Note ---
Date of Service March 22, 2020 Assessment & Plan (1) Acute CVA (cerebrovascular accident): (2) Hemiparesis: (3) Hypertensive urgency: (4) Carotid stenosis, bilateral: (5) Elevated glucose: (6) Chronic cerebral ischemia: Patient has acute, multiple, varying sized strokes in the right hemisp here, mainly in the middle cerebral artery territory (as seen on MRI). Onset was likely March 17. The etiology of these strokes is ischemic related to the severe right internal carotid artery stenosis as well as severe hypertension. On examination he has left arm greater than left leg weakness, with upper motor neuron signs consistent with subacute stroke. He is improved today compared to yesterday. In addition to his severe hypertension, other stroke risk factors would include elevated glucose/diabetes and cigarette smoking. His alcohol use is moderate. His blood pressure is much improved today compared to previous. Patient has right greater than left carotid stenoses (at the origins), being probably greater than 75 percent on the right and around 60 percent on the left. There is some milder stenosis high up in the cavernous portions of the carotids left greater than right side. The patient has significant small-vessel ischemia of an old nature seen on MRI, likely from his history of hypertension and cigarette smoking. Recommendations: 1. Continue clopidogrel 75 milligrams +80 1 milligram aspirin tablet daily for a total of 3 weeks then change to clopidogrel 75 milligrams daily alone. 2. Control blood pressure, aiming for a mean arterial pressure of approximately 100. 3. Continue to control glucose, aiming for a hemoglobin A1c closer to 6.0. 4. Continue low-dose statin. He is not a candidate for high-dose statins given his lipid parameters today. 5. Increase activity as able. 6. He would be a candidate for right carotid endarterectomy in the next 4-6 weeks (I am not comfortable recommending that this surgery should be done acutely, given the size of his infarcts). Consult vascular surgery. 7. Patient needs to establish with a primary care physician (apparently he has an appointment with Dr. Griffiths). 8. I can follow up as an outpatient instead few weeks if the patient is willing. Overall, I spent a total of 25 minutes with this case including review of records, direct evaluation the patient at bedside, and discussion of the case with the patient and RN at bedside and with Dr. Sales, including differential diagnosis and treatment options. Admission and Anticipated Discharge Date Admission Date: March 19, 2020 Anticipated date of discharge: 03/21/20 Subjective Patient feels that his left upper extremity is less weak/clumsy than was prior. His leg is improved on the left as well. He has no pain or dizziness. In addition, his mood has been worse over the last 12 hours and he wants to leave here now. Nursing reports some anxiety and depression and desire to leave the hospital but no confusion or other spells. Blood pressure was 131/78. CBC was stable as was Chem profile. Results & Data ([facility]) Vital Signs (Past 12 Hours) Vital Signs Temp Pulse Pulse Resp BP Pulse Ox 03/22/20 07:36 37.2 C 71 18 131/78 97 03/22/20 03:35 36.3 C L 64 18 142/78 H 95 03/21/20 23:34 36.3 C L 73 20 151/88 H 98 03/21/20 22:55 73 Exam (Neuro) Physical Exam: He is awake and alert. Speech is normal without aphasia or dysarthria. Thought processes are intact. His mood seems reasonable and his affect is appropriate although he is clearly a little bit depressed. Extraocular eye muscles are intact without nystagmus and there is no facial droop. He has weakness and clumsiness left upper extremity I believe he is moving it better today than he was yesterday. His left leg seem strong. There are no abnormal involuntary movements noted. PG Care Time/CCT Total # of Minutes Spent Total Time Spent with Patient: Total time spent is greater than 50% in coordination of care (as documented) at patient's floor/unit and/or counseling patient: Coding Level of Care Code 48565 Subseq Hosp Care Lvl 2 Diagnoses Acute CVA (cerebrovascular accident) I63.9 Hemiparesis G81.90 Hypertensive urgency I16.0 Carotid stenosis, bilateral I65.23 Elevated glucose R73.09 Chronic cerebral ischemia I67.82 Time Spent (min) 25
--- NOTE | 2020-03-22 10:54 | Hospitalist Progress Note ---
Date of Service March 22, 2020 Assessment & Plan (1) Acute CVA (cerebrovascular accident): per Dr. Iglesias's notes (previous attending): Brain MRI: IMPRESSION: 1. Multiple right hemispheric acute/subacute infarct. 2. There is a large geographic cortical infarct superior right parietal convexity, with smaller infarcts involving the right occipital lobe as well as smaller foci of acute ischemic change of the right temporal occipital distribution. 3. Differential considerations are as noted previously 4. Considerable multifocal foci of increased signal suggesting a baseline chronic small vessel ischemic process. Neck CTA: 1. 75% stenosis of the right internal carotid artery origin 2. 60% stenosis of the left internal carotid artery origin 3. Left aortic arch with an aberrant right subclavian artery MRI of the head showed acute, multiple and varying size of strokes in the right hemisphere mainly in the middle cerebral artery territory Neurologist consulted- Dr. Edy Cole [facility] recommend aspirin and Plavix for 3 weeks then Plavix only Lipitor 20mg po daily PT/OT recommend home health with PT/OT emphasized importance of adherence to medication and physician ff up discussed stroke signs and symptoms, call 911 immediately if present patient verbalized understanding,and is agreeable, comfortable this plan of care (2) Carotid stenosis, bilateral: As above Severe stenosis on the right side, likely the cause of his stroke Will need outpatient vascular surgery appointment on discharge for CEA (3) Left arm weakness: As above (4) Hypertensive urgency: Metoprolol increased to 50mg BID Lisinopril 5mg po daily started BP stable, 131/78 on discharge day (5) Hypokalemia: resolved (6) Elevated glucose: DM 2 a1c 7.2 while admitted placed on Lantus, and ISS Metformin 500mg BID ordered follow up as outpatient (7) Erythrocytosis: Hg 17 Possibly secondary to tobacco use history Iron 84 (8) History of [place] (myocardial infarction): In 2012 followed by cardiac cath and drug-eluting stent placement unfortunately, has not been adherent to medical therapy now placed on ASA, Plavix, Lipitor, Metoprolol, Lisinopril Elevated troponin upon presentation. Possibly due to demand with severely elevated BP. Continue to trend troponin Q6h x 2 more. No acute change on EKG indicating new NV. Echo completed: Left ventricle is normal in size with severe concentric LV hypertrophy, grade 1 diastolic dysfunction, inferior wall is akinetic at the base and mid level, posterior wall severely hypokinetic at the base and wall other segment mildly hypokinetic in global fashion, EF 40 to 45% and trace AR trace MR (9) Tobacco abuse: Advised to quit smoking (10) DVT prophylaxis: Heparin given d/c home with home health PT/OT ff up with PCP next week as scheduled ff up with Neurologist Dr. Cole in 4-6 weeks ff up with Data Programmer Dr. Chris in 4-6 weeks Admission and Anticipated Discharge Date Admission Date: March 19, 2020 Anticipated date of discharge: 03/21/20 Subjective ff up for acute CVA seen resting in bed, comfortable pleasant, cooperative, not in distress states he feels better overall LUE weakness and numbness improving no other new neurologic symptoms ambulating with no problems denies chest pain, palpitations, dizziness no other symptoms states she is ready and would like to be discharged today Review of Systems Review of Systems: All systems reviewed & are unremarkable except as noted in HPI & below Physical Exam Physical Exam: General- oriented x 3, not in distress, speaks in sentences with no effort or accessory muscle use Eyes- anicteric Neck- no JVD Lungs- clear breath sounds bilaterally, no rales/wheezes Heart- normal rate, regular rhythm; no murmurs Abdomen- normal bowel sounds, nondistended, soft, nontender Extremities- no pretibial edema, no calf tenderness Neuro- alert, oriented x 3; LUE motor 5/5, sensory 75%, LLE motor 5/5, sensory 60%, others 5/5, 100% no other gross focal deficit Skin- warm & dry Results & Data Results & Data ([facility]) Vital Signs (Past 12 Hours) Vital Signs Temp Pulse Pulse Resp BP Pulse Ox 03/22/20 07:36 37.2 C 71 18 131/78 97 03/22/20 03:35 36.3 C L 64 18 142/78 H 95 03/21/20 23:34 36.3 C L 73 20 151/88 H 98 03/21/20 22:55 73 Laboratory Results Laboratory Results - last 24 hr 03/21/20 03/21/20 03/21/20 11:35 16:19 20:21 WBC RBC Hgb Hct MCV MCH MCHC RDW Std Deviation RDW Coeff of Dione Plt Count MPV Immature Gran % (Auto) Neut % (Auto) Lymph % (Auto) Caldwell % (Auto) Eos % (Auto) Baso % (Auto) Immature Gran # (Auto) Neut # (Auto) Lymph # (Auto) Caldwell # (Auto) Eos # (Auto) Baso # (Auto) Sodium Potassium Chloride Carbon Dioxide Anion Gap BUN Creatinine Est Cr Clr Drug Dosing Est GFR ( Amer) Est GFR (Non-Af Amer) BUN/Creatinine Ratio Glucose POC Glucose 110 H 120 H 113 H Calcium 03/22/20 03/22/20 03/22/20 06:34 06:34 07:28 WBC 9.01 RBC 5.51 Hgb 17.4 Hct 48.9 MCV 88.7 MCH 31.6 MCHC 35.6 RDW Std Deviation 48.6 H RDW Coeff of Dione 15.1 H Plt Count 140 MPV 11.0 H Immature Gran % (Auto) 0.7 Neut % (Auto) 67.6 Lymph % (Auto) 22.3 [place]dwell % (Auto) 7.4 Eos % (Auto) 1.8 Baso % (Auto) 0.2 Immature Gran # (Auto) 0.06 H Neut # (Auto) 6.09 Lymph # (Auto) 2.01 Caldwell # (Auto) 0.67 H Eos # (Auto) 0.16 Baso # (Auto) 0.02 Sodium 137 Potassium Chloride 112 H Carbon Dioxide 22 Anion Gap 3.0 BUN 18 Creatinine 1.07 Est Cr Clr Drug Dosing 75.4 Est GFR ( Amer) 94.0 Est GFR (Non-Af Amer) 81.1 BUN/Creatinine Ratio 17.2 Glucose 125 H POC Glucose 132 H Calcium 8.6 03/22/20 07:51 WBC RBC Hgb Hct MCV MCH MCHC RDW Std Deviation RDW Coeff of Dione Plt Count MPV Immature Gran % (Auto) Neut % (Auto) Lymph % (Auto) Caldwell % (Auto) Eos % (Auto) Baso % (Auto) Immature Gran # (Auto) Neut # (Auto) Lymph # (Auto) Caldwell # (Auto) Eos # (Auto) Baso # (Auto) Sodium Potassium 3.7 Chloride Carbon Dioxide Anion Gap BUN Creatinine Est Cr Clr Drug Dosing Est GFR ( Amer) Est GFR (Non-Af Amer) BUN/Creatinine Ratio Glucose POC Glucose Calcium
[2020-03-22] MEDS ORDERED: STROKE PATIENT DISCHARGE STA (11:09)
--- NOTE | 2020-03-22 11:17 | Discharge Summary ---
Date of Service March 22, 2020 Admission HPI Per Admitting Provider Patient is a 49 yo male with history of HTN and PA who presented to the ED with complaint of multiple days of left upper extremity weakness. Toward the end of last week, the patient started to notice LUE weakness and balance problems while at work. He was "running into things". He felt like this throughout most of the day. He did have some upper chest/right sided neck pain over the weekend while at work, but that subsided. The chest/neck pain that he was experiencing seemed similar to the pain that he had back in 2013 when he had his PA. It subsided though. He then had progressively increasing left upper extremity weakness over the weekend along with on and off blurred vision. He noticed that he felt like he could fall to the left side because of his balance seeming 'off'. Patient previously followed with a PCP in [place] at [facility], but he has not followed routinely with anyone since his hospitalizations. He was hospitalized here in 2013 for his inferior PA. A Drug eluding stent was placed at that time. He was sent home on ASA, atorvastatin, lisinopril, carvedilol, & Plavix. He isn't exactly sure when he stopped these. He did have another admission between then and now in [place] for pancreatitis which he thinks may have been when these were stopped. He is not a good historian regarding his medical hx. He does have continued LUE weakness and numbness. No facial droop or slurred speech. No difficulty swallowing or loss of taste/smell. He has no current CP, SOB, abdominal pain, N/V/D/C, urinary symptoms, or peripheral edema. Since presentation to the ED, BP was up to 239/156. He was given labetalol 10 mg and BP is now 178/121. Troponin was elevated. Hgb also elevated to 19. Patient is a smoker. CT of the head showed acute infarcts in the right frontal and parietal lobes. Radiology recommended considering things such as vasculitis due to patient's age with these findings. CTA of the neck showed 75% stenosis right internal carotid and 60% stenosis of the left internal carotid. Admission Exam Per Admitting Provider Constitutional: well nourished, + acute distress and average body habitus Eyes: PERRL, conjunctivae normal, anicteric sclerae ENMT: external ear and nose normal, oropharynx normal Neck: trachea midline, no thyromegaly Respiratory: normal respiratory effort, lungs clear to auscultation Cardiovascular: RRR, no murmur, no edema Gastrointestinal (Abdomen): normal bowel sounds, soft, nontender, no hepatosplenomegaly Musculoskeletal: Head/Neck/Chest: normocephalic, head atraumatic and neck supple Extremities: + abnormal strength (Left upper extremity weakness compared to right. 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) Left hand dexterity and function decreased Skin: no rashes, warm and dry Neurologic: CN's II-XI intact bilaterally and + focal motor deficit (LUE) Motor/Sensory: no tremor Psychiatric: A+Ox3, euthymic affect Principal Diagnosis ACUTE CEREBROVASCULAR ACCIDENT Discharge Exam General- oriented x 3, not in distress, speaks in sentences with no effort or accessory muscle use Eyes- anicteric Neck- no JVD Lungs- clear breath sounds bilaterally, no rales/wheezes Heart- normal rate, regular rhythm; no murmurs Abdomen- normal bowel sounds, nondistended, soft, nontender Extremities- no pretibial edema, no calf tenderness Neuro- alert, oriented x 3; LUE motor 5/5, sensory 75%, LLE motor 5/5, sensory 60%, others 5/5, 100% no other gross focal deficit Skin- warm & dry Discharge Data Allergies Allergy/AdvReac Type Severity Reaction Status Date / Time No Known Allergies Allergy Unverified 03/19/20 10:50 Consultations 03/19/20 11:34 ED Decision to Admit Stat 03/19/20 14:47 Consult Cardiology Routine Consult Case Management - Discharge Planning Routine Consult Neurology Routine 03/21/20 08:00 Consult Psychiatry Routine Ordered Studies 03/19/20 09:31 CT angio head w con Stat IMPRESSION: 1. No evidence of major intracranial branch occlusion 2. No evidence of aneurysm 3. Moderate atheromatous change at the level the cavernous carotids with estimated 40% diameter stenosis of the left internal carotid artery CT angio neck with con Stat Findings: There is a left aortic arch with an aberrant right subclavian artery. There is a 75% stenosis of the right internal carotid artery origin. There is a 60% diameter stenosis of the left internal carotid artery origin. There is no evidence of hemodynamically significant vertebral stenosis. There is no evidence of vertebral dissection. IMPRESSION: 1. 75% stenosis of the right internal carotid artery origin 2. 60% stenosis of the left internal carotid artery origin 3. Left aortic arch with an aberrant right subclavian artery CT head/brain wo con Stat 1. No evidence of major intracranial branch occlusion 2. No evidence of aneurysm 3. Moderate atheromatous change at the level the cavernous carotids with estimated 40% diameter stenosis of the left internal carotid artery 03/19/20 11:13 US venous doppler LE BI Stat IMPRESSION: No evidence of deep venous thrombosis. 03/19/20 15:36 MR brain wo con Routine FINDINGS: Diffusion images demonstrate a rather large geographical area of cortical infarct over the right parietal convexity. Significant infarct involving the right occipital lobe as well as small punctate acute ischemic foci of the right occipital and right temporal lobe are present. Coronal FLAIR images demonstrate considerable chronic small vessel change . The ventricular system is midline. Internal auditory canals are symmetric. IMPRESSION: 1. Multiple right hemispheric acute/subacute infarct. 2. There is a large geographic cortical infarct superior right parietal convexity, with smaller infarcts involving the right occipital lobe as well as smaller foci of acute ischemic change of the right temporal occipital distribution. 3. Differential considerations are as noted previously 4. Considerable multifocal foci of increased signal suggesting a baseline chronic small vessel ischemic process. Hospital Course (1) Acute CVA (cerebrovascular accident): multifactorial: bilateral carotid artery stenosis, hypertension, DM, smoking, alcohol use presented with LUE weakness Brain MRI: IMPRESSION: 1. Multiple right hemispheric acute/subacute infarct. 2. There is a large geographic cortical infarct superior right parietal convexity, with smaller infarcts involving the right occipital lobe as well as smaller foci of acute ischemic change of the right temporal occipital distribution. 3. Differential considerations are as noted previously 4. Considerable multifocal foci of increased signal suggesting a baseline chronic small vessel ischemic process. Neck CTA: 1. 75% stenosis of the right internal carotid artery origin 2. 60% stenosis of the left internal carotid artery origin 3. Left aortic arch with an aberrant right subclavian artery Neurologist consulted- Dr. Primitivo Quintanilla [facility] recommend aspirin and Plavix for 3 weeks then Plavix only indefinitely Lipitor 20mg po daily also started PT/OT recommend home health with PT/OT emphasized importance of adherence to medication and physician ff up discussed stroke signs and symptoms, call 911 immediately if present patient verbalized understanding,and is agreeable, comfortable this plan of care (2) Carotid stenosis, bilateral: Neck CTA: 1. 75% stenosis of the right internal carotid artery origin 2. 60% stenosis of the left internal carotid artery origin 3. Left aortic arch with an aberrant right subclavian artery Neurology recommends CEA in 4-6 weeks, please refer to vascular surgery (3) Hypertensive urgency: Metoprolol increased to 50mg BID Lisinopril 5mg po daily started monitor BP (4) Diabetes type 2, uncontrolled: a1c 7.2 while admitted, placed on Lantus, and ISS Metformin 500mg BID ordered follow up as outpatient (5) Symptoms of depression: expressed signs of depression and anxiety while admitted, mostly related to recent diagnoses denies suicidality Psych consulted, does not recommend initiation of mood stabilizer Neurologist recommends Fluoxetine 20mg po daily patient instructed to monitor for signs of bleeding, given patient also in Plavix (6) History of PA (myocardial infarction): In 2011 followed by cardiac cath and drug-eluting stent placement unfortunately, has not been adherent to medical therapy now placed on ASA, Plavix, Lipitor, Metoprolol, Lisinopril Elevated troponin upon presentation. Possibly due to demand with severely elevated BP. No acute change on EKG indicating new PA. Echo completed: Left ventricle is normal in size with severe concentric LV hypertrophy, grade 1 diastolic dysfunction, inferior wall is akinetic at the base and mid level, posterior wall severely hypokinetic at the base and wall other segment mildly hypokinetic in global fashion, EF 40 to 45% and trace AR trace MR follow up with Landscape Contractor in 4-6 weeks (7) Hypokalemia: resolved (8) Erythrocytosis: Hg 17 Possibly secondary to tobacco use history Iron 84 (9) Tobacco abuse: Advised to quit smoking (10) DVT prophylaxis: Heparin given d/c home with home health PT/OT ff up with PCP next week as scheduled ff up with Neurologist Dr. Quintanilla in 2-4 weeks ff up with Landscape Contractor Dr. Chris in 2-4 weeks Total Time Total Time Spent Total Time Spent (In Minutes): 65 minutes Discharge Plan Discharge Items Patient Disposition: Home - Home Health Services Reason For Visit: STROKE Discharge Diagnosis: ACUTE STROKE, BILATERAL CAROTID ARTERY STENOSIS, DIABETES, HYPERTENSION, CORONARY ARTERY DISEASE Activity: As commented below Activity Comment: RESUME ACTIVITY GRADUALLY TOLERATED, NO HEAVY EXERTION Lifting: Wait until after follow-up appointment Exercise/Sports: Wait until after follow-up appointment Driving/Machine Use: NO DRIVING UNTIL RE-EVALUATED AND ALLOWED BY PRIMARY CARE PHYSICIAN Non-emergency contact: Primary Care Provider Call non-emergency contact if: you have any medication questions and you have a fever Follow-up/Referrals: Zechariah Quintanilla MD [Physician] - Dany Chris MD [Physician] - Shira Blackman MD [Primary Care Provider] - 03/26/20 2:00 pm ([facility] [address] [place] ) Diet: Carb Consistent or DM2 and Heart Healthy Addtl Attending Provider Instructions: PLEASE REVIEW YOUR NEW MEDICATION LIST AND FOLLOW INSTRUCTIONS CAREFULLY. METOPROLOL AND LISINOPRIL- FOR HIGH BLOOD PRESSURE LIPITOR- FOR HIGH CHOLESTEROL LEVEL ASPIRIN AND PLAVIX- FOR STROKE PREVENTION METFORMIN- FOR DIABETES FLUOXETINE- MOOD STABILIZER TAKE BOTH ASPIRIN AND PLAVIX FOR 3 WEEKS, THEN CHANGE TO PLAVIX DAILY ALONE. ALWAYS TAKE ASPIRIN AND PLAVIX WITH FOOD. CALL YOUR DOCTOR IMMEDIATELY IF YOU ARE HAVING SIGNS OF BLEEDING- EXAMPLE: BLACK OR BLOOD STOOLS, EASY BRUISING. DO NOT SKIP MEALS. ALWAYS STAY WELL HYDRATED. NO SMOKING OR ALCOHOL. CALL PRIMARY CARE PHYSICIAN IMMEDIATELY IF YOU ARE HAVING WORSENING SIGNS OF DEPRESSION OR ANXIETY. FOLLOW UP WITH PRIMARY CARE PHYSICIAN DR. SHIRA BLACKMAN NEXT WEEK OUTLINED ABOVE. FOLLOW UP WITH NEUROLOGIST DR. QUINTANILLA, AND CROP CONSULTANT DR. CHRIS IN 2-4 WEEKS. PLEASE CALL THEIR OFFICE TO SET UP AN APPOINTMENT, CONTACT INFORMATION OUTLINED ABOVE. YOU ALSO NEED TO SEE A VASCULAR SURGEON. YOUR PRIMARY CARE PHYSICIAN CAN ARRANGE THIS FOR YOU. ALWAYS TAKE YOUR MEDICATION REGULARLY AND FOLLOW UP WITH THE ABOVE PHYSICIANS CLOSELY. Who to Call and When: Medical Emergencies: Call 911 immediately if you experience any of the following warning signs and symptoms of Stroke: Sudden numbness or weakness of the face, arm or leg, especially on one side of the body Sudden confusion, trouble speaking or understanding Sudden trouble seeing in one or both eyes Sudden trouble walking, dizziness, loss of balance or coordination Sudden severe headache with no cause Do not delay calling 911 if you experience any warning signs or symptoms of a stroke. Delay in seeking medical attention may affect what treatments can be given to you. Risk Factors for Stroke: You can reduce your chances of stroke by working with your medical provider to adopt a healthy lifestyle. Some specific ways to lower your chance of stroke are: If you are a smoker, now is the time to stop smoking cigarettes If you are diabetic, improve the control of your blood sugars Avoid excessive amounts of alcohol Control high blood pressure Lose weight if you are overweight Be sure to lead an active lifestyle Eat a healthy diet low in salt, cholesterol and fat You should know about other risk factors for stroke that you are unable to control. These include: Age 55 years or older Male gender Certain racial groups: , or / Family History of Stroke, Mini stroke or Heart Attack Sickle Cell Disease Follow Up: It is important for you to keep your follow up appointments with your medical provider. Pending Studies at Discharge: Yes Studies:: VASCULAR SURGEON REFERRAL Stand-Alone Forms: Medications to Prevent Stroke, [facility] [place] [employer], Smoking Cessation Medications and DC Order Prescriptions: New atorvastatin 20 mg Tablet 20 mg PO QAM Qty: 30 RF: 2 clopidogrel 75 mg Tablet 75 mg PO QAM Qty: 30 RF: 2 aspirin 81 mg Tablet,Delayed Release (Dr/Ec) 81 mg PO QAM Qty: 17 RF: 0 lisinopril [Zestril] 5 mg Tablet 5 mg PO QAM Qty: 30 RF: 2 metformin 500 mg tablet 500 mg PO BID Qty: 60 RF: 2 metoprolol tartrate 50 mg tablet 50 mg PO BID Qty: 60 RF: 2 fluoxetine 20 mg capsule 20 mg PO DAILY Qty: 30 RF: 0 Continued famotidine 10 mg Tablet 10 mg PO DAILY RF: 0 Discontinued diphenhydramine HCl [Sleep Tablet (diphenhydramine)] 25 mg Tablet 25 mg PO HS PRN (Reason: Sleep) RF: 0 Discharge Orders: Discharge Order (Routine); Ordered 03/22/20 Ordered By: Jarocho Velazquez/Other Patient Handouts: Effects of a Stroke on the Brain and Body, Stroke Heart Disease, Diabetes and Heart Disease, Low-Salt Choices, Diabetes Sneller Hand Complications, Diabetes Type 2 Managing, Ketones Check, Diabetes Healthy Meals, Understanding Carbohydrates, Exercise to Manage Your Blood Sugar, Stroke Sx, Stroke Home Safety, Stroke Resources Support, Stroke Self Care, Brain Anatomy, Heart Attack Prevention Lifestyle Changes, Diabetes Meal Planning, Heart Risks Identifying, Foods Heart Healthy, Glucose Check Steps, Metformin extended-release tablets, A1C Admission Data Admit Date/Time: 03/19/20 12:31 Attending Provider: Jarocho Sales Admit Provider: Kian Iglesias Primary Care Provider: Shira Blackman Other Providers: Balaji Blanca ; Dany Chris ; Zechariah Quintanilla ; Darcy Quiroga ; Kian Iglesias ; [facility]
--- NOTE | 2020-03-22 11:35 | Electrocardiogram Report ---
Test Reason : Blood Pressure : / mmHG Vent. Rate : 067 BPM Atrial Rate : 067 BPM P-R Int : 176 ms QRS Dur : 096 ms QT Int : 442 ms P-R-T Axes : 028 002 037 degrees QTc Int : 467 ms Normal sinus rhythm Voltage criteria for left ventricular hypertrophy Nondiagnostic inferior Q waves Abnormal ECG When compared with ECG of 20-MAR-2020 06:31, No significant change was found Confirmed by Pedro Pablo Castañeda ([id number]) on 03/22/2020 11:35:27 AM Referred By: REFERRED SELF Confirmed By:Pedro Pablo Castañeda
--- NOTE | 2020-03-22 11:56 | Pharmacy Report ---
Pharmacist Stroke Counseling - Date of Service March 22, 2020 - Scope: Pharmacy has been consulted to provide medication discharge counseling for this patient admitted with ischemic stroke as per the Pharmacist Discharge Counseling for Stroke Patients Protocol. - Medications on Discharge: Home Medications Medication Instructions Recorded Confirmed famotidine 10 mg PO DAILY 03/19/20 03/19/20 New Rx's Medication Instructions Recorded aspirin 81 mg PO QAM #17 tab 03/22/20 atorvastatin 20 mg PO QAM #30 tab 03/22/20 clopidogrel 75 mg PO QAM #30 tab 03/22/20 fluoxetine 20 mg PO DAILY #30 cap 03/22/20 lisinopril [Zestril] 5 mg PO QAM #30 tab 03/22/20 metformin 500 mg PO BID #60 tab 03/22/20 metoprolol tartrate 50 mg PO BID #60 tab 03/22/20 - Action: The above medications, specifically ones for stroke treatment/prophylaxis, have been reviewed in detail with the patient and/or patient security representative(s) prior to discharge. This includes indication, common adverse reactions, drug interactions, and medication administration. Medication counseling has been employed using the teach-back method to ensure understanding. - Outcome: The patient and/or patient security representative(s) have demonstrated understanding of the medications. Please note, they are aware that the pharmacist will call them within 72 hours post-discharge to confirm that the appropriate medications are being taken and answer any further medication related questions the patient might have at that time. Contact information Individual to be contacted: Deyvi Relationship to patient (if applicable): self Phone number: [phone] Best time to call: midday - afternoon Additional comments: discussed interaction between fluoxetine and plavix (Fluoxetine was a Neuro recc) and importance of watching for bruising or cuts that won't stop bleeding. Thank you for allowing pharmacy to be involved in the care of this patient. Ple ase call [phone] or [phone] with any additional questions
--- NOTE | 2020-03-26 14:07 | Pharmacy Report ---
Pharmacist Post D/C Phone Note - Phone Note: Date of phone call: March 26, 2020. The patient and/or patient employment representative(s) were unable to be reached for a follow-up phone call within the 72 hour time frame. Discharge counseling pharmacist contact information has already been provided to the patient should questions arise. Thank you for allowing us to be involved in the care of this patient. - Home Medications: Home Medications Medication Instructions Recorded Confirmed famotidine 10 mg PO DAILY 03/19/20 03/19/20 New Rx's Medication Instructions Recorded aspirin 81 mg PO QAM #17 tab 03/22/20 atorvastatin 20 mg PO QAM #30 tab 03/22/20 clopidogrel 75 mg PO QAM #30 tab 03/22/20 fluoxetine 20 mg PO DAILY #30 cap 03/22/20 lisinopril [Zestril] 5 mg PO QAM #30 tab 03/22/20 metformin 500 mg PO BID #60 tab 03/22/20 metoprolol tartrate 50 mg PO BID #60 tab 03/22/20
== END 2020-03-22 12:59 | disposition home health service (06) | DRG 65 ==
LOC: ED 08:58 → 2S 12:31 → SUATTDRO 12:31 → 2S 14:10

== ENCOUNTER 2020-06-15 13:12 | Inpatient (IN) ==
[2020-06-15] MEDS ORDERED: SODIUM CHLORIDE 0.9% 500 ML IV SCH (13:30)
[2020-06-15 13:32] LABS: Basophils # (auto) 0.01 K/uL (0-0.2); Basophils % (auto) 0.1 %; Eosinophils # (auto) 0.18 K/uL (0-0.5); Hematocrit (blood only) 41.5 % (42-52); Hemoglobin 14.9 g/dL (14.0-18.0); Immature Granulocytes # (auto) 0.05 K/uL (0.00-0.02); Immature Granulocytes % (auto) 0.6 %; Lymphocytes # (auto) 2.22 K/uL (1.2-3.4); Lymphocytes % (auto) 24.9 %; Mean Corpuscular Hgb Conc 35.9 g/dL (32-36); Mean Corpuscular Volume 89.2 fL (80-100); Mean Platelet Volume 10.1 fL (7.4-10.4); Monocytes # (auto) 0.75 K/uL (0.11-0.59); Monocytes % (auto) 8.4 %; Platelet Count 123 K/uL (130-400); RDW Coefficient of Variation 14.8 % (11.5-14.5); RDW Standard Deviation 48.2 fL (36.4-46.3); Red Blood Count 4.65 M/uL (4.7-6.1); White Blood Count 8.91 K/uL (4.8-10.8)
--- NOTE | 2020-06-15 13:39 | XRay Report ---
XR chest 1V portable HISTORY: 49 years-old Male weakness acute weakness COMPARISON: Chest radiograph 06/05/2020 TECHNIQUE: Portable AP view of the chest FINDINGS: Cardiomediastinal and hilar silhouettes are within normal limits. Calcified plaque of the thoracic ao rtic arch. There is no pneumothorax, pleural effusion, airspace consolidation or overt pulmonary rob a. Bones of the chest appear grossly intact. IMPRESSION: No acute process. ACT 112: Negative or not required by law. The above report was generated using voice recognition software. It may contain grammatical, syntax o r spelling errors. Electronically signed by: Parag Jo M.D. 06/15/2020 1:38 PM
[2020-06-15 13:45] LABS: INR 1.1 (0.9-1.1); Partial Thromboplastin Ratio 1.1; Partial Thromboplastin Time 29.8 Seconds (21.0-31.0); Prothrombin Time 11.3 Seconds (9.0-12.0)
[2020-06-15 13:48] LABS: Alanine Aminotransferase 25 U/L (12-78); Albumin Level 3.7 gm/dl (3.4-5.0); Aspartate Aminotransferase 18 U/L (15-37); BUN Creatinine Ratio 14.1 (10-20); Blood Urea Nitrogen 24 mg/dl (7-18); Calcium 9.2 mg/dl (8.5-10.1); Carbon Dioxide 25 mmol/L (21-32); Chloride 112 mmol/L (98-107); Creatinine Clr Calc Pharmacy 47.4 ml/min; Est GFR (African American) 53.7; Est GFR (Non-African American) 46.3; Glucose 117 mg/dl (70-99); Magnesium 2.2 mg/dl (1.8-2.4); Potassium 4.3 mmol/L (3.5-5.1); Sodium 144 mmol/L (136-145)
[2020-06-15 13:59] LABS: Albumin Globulin Ratio 1.1 (0.9-2); Alkaline Phosphatase 55 U/L (45-117); Creatine Kinase 126 U/L (39-308); Globulin 3.4 gm/dl (2.5-4.0); Thyroid Stimulating Hormone 0.744 uIu/ml (0.300-4.500); Total Protein 7.1 gm/dl (6.4-8.2); Troponin I < 0.015 ng/ml (0-0.045)
--- NOTE | 2020-06-15 14:29 | Emergency Department Note ---
Impression & Plan TIA (transient ischemic attack), Weakness, Multiple abrasions ED Provider Note NAME: EDNA TAYLOR AGE: 49 SEX: M : 1970 ARRIVES VIA: Ambulance INFORMANT: Patient, ED PROVIDER(S): Madan Jacques DO CHIEF COMPLAINT: Weakness HPI: The patient is a 49-year-old male who presented to the emergency department for an evaluation of weakness. The patient states that he has been having intermittent episodes of generalized weakness which appears to be both legs. He states that his legs "buckle" underneath him when he falls. The patient has multiple abrasions to his knees. He states that this has been going on for quite some time. He was seen in our facility recently and had a complete work- up. He was also noted to have intermittent episodes of hypertension. He was prescribed new medications by his primary care physician. He was also prescribed medications by his primary atomic process engineer for hypertension. The patie nt states that he called his primary care physician today because of ongoing symptoms which been worsening over the last few days and was referred to the emergency department. The patient denies having a headache. He denies having any chest pain or difficulty breathing. He denies any noncompliance with his medications. He states his symptoms are significantly improved at this time. ROS: See above HPI for pertinent positives & negatives. A total of 10 systems reviewed and were otherwise negative. PAST MEDICAL HISTORY: See Below PAST SURGICAL HISTORY: See Below FAMILY HISTORY: See Below SOCIAL HISTORY: See Below HOME MEDICATIONS: See Below ALLERGIES: See Below VITALS: See Below PHYSICAL EXAMINATION: GENERAL: Patient is awake alert in no acute distress patient is resting comfortably and showing no signs of anxiety EYES: The conjunctivae are clear. The pupils are round and reactive. EARS, NOSE, MOUTH AND THROAT: The nose is without any evidence of any deformity. NECK: The neck is nontender and supple. RESPIRATORY: Normal respiratory effort is noted there is no evidence of wheezing rhonchi or rales CARDIOVASCULAR: Regular rate and rhythm noted there no murmurs rubs or gallops normal S1 normal S2. GASTROINTESTINAL: The abdomen is soft. Abdomen is nontender. BACK: No midline tenderness or or step-off noted range of motion in flexion extension as well as rotation no signs of muscle spasm noted MUSCULOSKELETAL/EXTREMITIES: There is no evidence of gross deformity full range of motion is noted in the hips and shoulders. SKIN: There is no obvious evidence of any rash. Multiple abrasions are noted to both knees. NEUROLOGIC: Patient is awake alert and oriented x3 strength is symmetric patellar reflexes are 2+ bilaterally MEDICAL DECISION MAKING: The patient is a 49-year-old male who has a history of ischemic stroke in March who presented to the emergency department for an evaluation of generalized weakness. The patient describes generalized weakness but going through his history I do feel this is more consistent with episodes of TIAs. He states that he feels weaker on one side but feels that his knees are "giving way". The patient appears neurologically intact at this time. He has no focal neurologic deficit. The patient does have a history of ischemic stroke and it sounds though he has very difficult to manage blood pressure. He does take some blood pressure medication as needed and he states that he has been compliant with his outpatient regimen. I discussed the patient's laboratory and radiographic studies with him. He was able to ambulate in the emergency department. I do feel that the patient is at high risk and I feel if this does represent a TIA he may require inpatient observation to ensure if he does deteriorate it can be addressed more acutely. The patient was agreeable to this plan. I discussed his case with the on-call [facility] hospitalist group. Triage Nursing notes reviewed. Prior medical records reviewed Vital Signs: reviewed and remarkable for elevated blood pressure. Differential diagnosis: Infection, dehydration, metabolic abnormality, hypo/hyperglycemia, electrolyte disturbance, anemia, hypoxia, cardiac sources, intracerebral event, toxicologic, neurologic, as well as other pathologies. ER treatment provided: See below Diagnostics interpreted by me: ECG: EKG was obtained in the emergency department. My interpretation is normal sinus rhythm at 65 bpm. There was no ectopy. There was lateral ST depressions noted. This was compared to a tracing from June 122019. No significant changes were noted. Cardiac Monitoring: An order was placed for continuous cardiac monitoring. The monitor shows a rate of 82 with sinus rhythm. Laboratory studies: As stated above and show below. Imaging studies: See below Consultation(s): 1700: I discussed this case with Steffany vazquez. She is on-call for the [facility]ist group. She will evaluate the patient in the emergency department for further management and disposition. Past Med/Surg History Medical History Carotid stenosis, bilateral Elevated glucose Hypertension (Chronic) Non-ST elevation VA (NSTEMI) (Inactive) Pancreatitis Tobacco abuse Surgical History S/P drug eluting coronary stent placement Family History Mother , age 68 from metastatic lung cancer Lung cancer Father No problems noted. 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[employer], 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 Feels Safe at Home: Yes Allergies Allergies Allergy/AdvReac Type Severity Reaction Status Date / Time No Known Allergies Allergy Verified 06/15/20 14:43 Home Meds Home Medications Medication Instructions Recorded Confirmed fluoxetine 40 mg PO QAM 06/05/20 06/15/20 metformin 500 mg PO BID 06/05/20 06/15/20 metoprolol succinate 50 mg PO QAM 06/05/20 06/15/20 trazodone 100 mg PO HS 06/05/20 06/15/20 gabapentin 300 mg PO TID 06/15/20 06/15/20 lisinopril 30 mg PO DAILY 06/15/20 06/15/20 Previous Rx's Medication Instructions Recorded aspirin 81 mg PO QAM #17 tab 03/22/20 atorvastatin 20 mg PO QAM #30 tab 03/22/20 clopidogrel 75 mg PO QAM #30 tab 03/22/20 Results & Data (ED) Vital Signs Vital Signs - 24 hr 06/15/20 13:27 06/15/20 13:32 06/15/20 14:26 Temperature 37 C Temperature Source Oral Pulse Rate 71 Pulse Rate [Apical] 56 L Pulse Rhythm Regular Pulse Rhythm [Apical] Regular Pulse Strength Normal Pulse Strength [Apical] Normal Respiratory Rate 20 18 Respiratory Effort / Characteristics Non-Labored Non-Labored Spontaneous Respiratory Depth Normal Normal Respiratory Pattern Regular Agonal Blood Pressure 185/122 H Blood Pressure [Left Arm] 221/126 H Blood Pressure Mean 143 Blood Pressure Mean [Left Arm] 157 Blood Pressure Position Lying Blood Pressure Position [Left Arm] Lying Pulse Oximetry 98 98 98 Oxygen Delivery Method Room Air Room Air Room Air Sepsis Recent Fever Within 48 Hours No Sepsis New/Unexplained Change in Mental Status No Sepsis Action Taken by Nursing No Action Required 06/15/20 15:11 06/15/20 16:46 Temperature Temperature Source Pulse Rate Pulse Rate [Apical] 57 L 52 L Pulse Rhythm Pulse Rhythm [Apical] Regular Regular Pulse Strength Pulse Strength [Apical] Normal Normal Respiratory Rate 20 18 Respiratory Effort / Characteristics Non-Labored Spontaneous Non-Labored Spontaneous Respiratory Depth Normal Normal Respiratory Pattern Regular Regular Blood Pressure Blood Pressure [Left Arm] 151/74 H 179/104 H Blood Pressure Mean Blood Pressure Mean [Left Arm] 99 129 Blood Pressure Position Blood Pressure Position [Left Arm] Lying Sitting Pulse Oximetry 97 96 Oxygen Delivery Method Room Air Room Air Sepsis Recent Fever Within 48 Hours Sepsis New/Unexplained Change in Mental Status Sepsis Action Taken by [facility] Medications Current Medication List: was personally reviewed by me Laboratory Data Attestation: I reviewed the patient's lab results. Result diagrams: 06/15/20 13:20 06/15/20 13:20 Lab Results 06/15/20 06/15/20 06/15/20 Range/Units 13:20 13:20 13:20 WBC 8.91 (4.8-10.8) K/uL RBC 4.65 L (4.7-6.1) M/uL Hgb 14.9 (14.0-18.0) g/dL Hct 41.5 L (42-52) % MCV 89.2 (80-100) fL MCH 32.0 (25-34) pg MCHC 35.9 (32-36) g/dL RDW Std Deviation 48.2 H (36.4-46.3) fL RDW Coeff of Dione 14.8 H (11.5-14.5) % Plt Count 123 L (130-400) K/uL MPV 10.1 (7.4-10.4) fL Immature Gran % (Auto) 0.6 % Neut % (Auto) 64.0 % Lymph % (Auto) 24.9 % [place] % (Auto) 8.4 % Eos % (Auto) 2.0 % Baso % (Auto) 0.1 % Neut # (Auto) 5.70 (1.4-6.5) K/uL Lymph # (Auto) 2.22 (1.2-3.4) K/uL [place] # (Auto) 0.75 H (0.11-0.59) K/uL Eos # (Auto) 0.18 (0-0.5) K/uL Baso # (Auto) 0.01 (0-0.2) K/uL Immature Gran # (Auto) 0.05 H (0.00-0.02) K/uL PT 11.3 (9.0-12.0) Seconds INR 1.1 (0.9-1.1) APTT 29.8 (21.0-31.0) Seconds PTT Ratio 1.1 Sodium 144 (136-145) mmol/L Potassium 4.3 (3.5-5.1) mmol/L Chloride 112 H (98-107) mmol/L Carbon Dioxide 25 (21-32) mmol/L Anion Gap 7.0 (3-11) BUN 24 H (7-18) mg/dl Creatinine 1.70 H (0.6-1.4) mg/dl Est Cr Clr Drug Dosing 47.4 ml/min Est GFR ( Amer) 53.7 Est GFR (Non-Af Amer) 46.3 BUN/Creatinine Ratio 14.1 (10-20) Glucose 117 H (70-99) mg/dl Calcium 9.2 (8.5-10.1) mg/dl Magnesium 2.2 (1.8-2.4) mg/dl Total Bilirubin 1.0 (0.2-1) mg/dl AST 18 (15-37) U/L ALT 25 (12-78) U/L Alkaline Phosphatase 55 (45-117) U/L Total Creatine Kinase 126 (39-308) U/L Troponin I < 0.015 (0-0.045) ng/ml Total Protein 7.1 (6.4-8.2) gm/dl Albumin 3.7 (3.4-5.0) gm/dl Globulin 3.4 (2.5-4.0) gm/dl Albumin/Globulin Ratio 1.1 (0.9-2) TSH 0.744 (0.300-4.500) uIu/ml Urine Color Urine Appearance (Clear) Urine pH (4.5-7.5) Ur Specific [place] (1.000-1.030) Urine Protein (Negative) Urine Glucose (UA) (Negative) Urine Ketones (Negative) Urine Blood (Negative) Urine Nitrite (Negative) Urine Bilirubin (Negative) Urine Urobilinogen (Negative) Ur Leukocyte Esterase (Negative) 06/15/20 Range/Units 16:00 WBC (4.8-10.8) K/uL RBC (4.7-6.1) M/uL Hgb (14.0-18.0) g/dL Hct (42-52) % MCV (80-100) fL MCH (25-34) pg MCHC (32-36) g/dL RDW Std Deviation (36.4-46.3) fL RDW Coeff of Dione (11.5-14.5) % Plt Count (130-400) K/uL MPV (7.4-10.4) fL Immature Gran % (Auto) % Neut % (Auto) % Lymph % (Auto) % [place] % (Auto) % Eos % (Auto) % Baso % (Auto) % Neut # (Auto) (1.4-6.5) K/uL Lymph # (Auto) (1.2-3.4) K/uL [place] # (Auto) (0.11-0.59) K/uL Eos # (Auto) (0-0.5) K/uL Baso # (Auto) (0-0.2) K/uL Immature Gran # (Auto) (0.00-0.02) K/uL PT (9.0-12.0) Seconds INR (0.9-1.1) APTT (21.0-31.0) Seconds PTT Ratio Sodium (136-145) mmol/L Potassium (3.5-5.1) mmol/L Chloride (98-107) mmol/L Carbon Dioxide (21-32) mmol/L Anion Gap (3-11) BUN (7-18) mg/dl Creatinine (0.6-1.4) mg/dl Est Cr Clr Drug Dosing ml/min Est GFR ( Amer) Est GFR (Non-Af Amer) BUN/Creatinine Ratio (10-20) Glucose (70-99) mg/dl Calcium (8.5-10.1) mg/dl Magnesium (1.8-2.4) mg/dl Total Bilirubin (0.2-1) mg/dl AST (15-37) U/L ALT (12-78) U/L Alkaline Phosphatase (45-117) U/L Total Creatine Kinase (39-308) U/L Troponin I (0-0.045) ng/ml Total Protein (6.4-8.2) gm/dl Albumin (3.4-5.0) gm/dl Globulin (2.5-4.0) gm/dl Albumin/Globulin Ratio (0.9-2) TSH (0.300-4.500) uIu/ml Urine Color Dark Yellow Urine Appearance Clear (Clear) Urine pH 6.5 (4.5-7.5) Ur Specific [place] 1.014 (1.000-1.030) Urine Protein Negative (Negative) Urine Glucose (UA) Negative (Negative) Urine Ketones Negative (Negative) Urine Blood Negative (Negative) Urine Nitrite Negative (Negative) Urine Bilirubin Negative (Negative) Urine Urobilinogen Negative (Negative) Ur Leukocyte Esterase Negative (Negative) Administered Medications Discontinued Medications Sodium Chloride (Nss) 500 mls @ 999 mls/hr IV .Q31M [id number] Stop: 06/15/20 14:00 Last Infusion: 06/15/20 14:24 Dose: 0 mls/hr Documented by: [id number] Admin: 06/15/20 13:27 Dose: 999 mls/hr Documented by: [id number] Imaging Data Radiologist's Impression: XR chest 1V portable HISTORY: 49 years-old Male weakness acute weakness COMPARISON: Chest radiograph 06/05/2020 TECHNIQUE: Portable AP view of the chest FINDINGS: Cardiomediastinal and hilar silhouettes are within normal limits. Calcified plaque of the thoracic aortic arch. There is no pneumothorax, pleural effusion, airspace consolidation or overt pulmonary edema. Bones of the chest appear grossly intact. IMPRESSION: No acute process. ACT 112: Negative or not required by law. The above report was generated using voice recognition software. It may contain grammatical, syntax or spelling errors. Electronically signed by: Parag Jo M.D. 06/15/2020 1:38 PM Dictated: 06/15/20 1337 Transcribed: 06/15/[address] OF THE HEAD WITHOUT CONTRAST CLINICAL HISTORY: weakness COMPARISON STUDY: Head CT, CTA of the head and MRI of the brain March 19, 2020. CT DOSE: 729.78 mGycm TECHNIQUE: Helical axial images of the head were obtained without IV contrast. Automated exposure control was utilized for the study. A dose lowering technique was utilized adhering to the principles of ALARA. FINDINGS: No acute intracranial hemorrhage, midline shift or mass effect is present. Ventricular system is unremarkable. The basilar cisterns are patent. Multifocal encephalomalacia within the right cerebral hemisphere corresponds to infarcts shown on MRI of March 19, 2020. Expected evolution is noted. These infarcts are now chronic. Hypodensity suggests small vessel disease, greater than expected for age. There are no findings to suggest acute dural sinus thrombosis or acute territorial infarct. There are no significant calvarial abnormalities. IMPRESSION: 1. No acute intracranial findings. 2. Expected evolution of the multifocal infarcts within the right cerebral hemisphere since MRI of March 19, 2020. 3. No significant change in white matter hypodensities which are nonspecific but likely reflect small vessel disease, greater than expected for age. ACT 112: Negative or not required by law. Electronically signed by: Jw Andujar M.D. 06/15/2020 3:08 PM Dictated: 06/15/20 1502 Transcribed: 06/15/20 1502 Blood Pressure Blood Pressure Findings: Elevated blood pressure Blood Pressure Disposition: further management by hospitalist Discharge Plan Visit Data Chief Complaint: Leg Weakness, Bilateral Stated Complaint: fall/ weakness eval ED Provider: Madan Jacques Discharge Problem: TIA (transient ischemic attack), Weakness, Multiple abrasions Patient Disposition: Being Evaluated by Hospitalist Condition: Good Forms Stand Alone Forms: My [facility] Prescriptions Prescriptions: No Action atorvastatin 20 mg Tablet 20 mg PO QAM Qty: 30 RF: 2 clopidogrel 75 mg Tablet 75 mg PO QAM Qty: 30 RF: 2 aspirin 81 mg Tablet,Delayed Release (Dr/Ec) 81 mg PO QAM Qty: 17 RF: 0 fluoxetine 40 mg capsule 40 mg PO QAM RF: 0 metoprolol succinate 50 mg tablet extended release 24 hr 50 mg PO QAM RF: 0 trazodone 100 mg tablet 100 mg PO HS RF: 0 metformin 500 mg tablet 500 mg PO BID RF: 0 lisinopril 30 mg tablet 30 mg PO DAILY RF: 0 gabapentin 300 mg capsule 300 mg PO TID RF: 0 Referrals Referrals: Pedro Pablo Gaspar MD [Primary Care Provider] -
--- NOTE | 2020-06-15 15:10 | CT Scan Report ---
CT OF THE HEAD WITHOUT CONTRAST CLINICAL HISTORY: weakness COMPARISON STUDY: Head CT, CTA of the head and MRI of the brain March 19, 2020. CT DOSE: 729.78 mGycm TECHNIQUE: Helical axial images of the head were obtained without IV contrast. Automated exposure con trol was utilized for the study. A dose lowering technique was utilized adhering to the principles o f ALARA. FINDINGS: No acute intracranial hemorrhage, midline shift or mass effect is present. Ventricular syst em is unremarkable. The basilar cisterns are patent. Multifocal encephalomalacia within the right cer ebral hemisphere corresponds to infarcts shown on MRI of March 19, 2020. Expected evolution is noted. Th trell infarcts are now chronic. Hypodensity suggests small vessel disease, greater than expected for ag e. There are no findings to suggest acute dural sinus thrombosis or acute territorial infarct. There are no significant calvarial abnormalities. IMPRESSION: 1. No acute intracranial findings. 2. Expected evolution of the multifocal infarcts within the right cerebral hemisphere since MRI of 2019. 3. No significant change in white matter hypodensities which are nonspecific but likely reflect small vessel disease, greater than expected for age. ACT 112: Negative or not required by law. Electronically signed by: Jw Andujar M.D. 06/15/2020 3:08 PM
[2020-06-15 16:17] LABS: Appearance Urine Clear (Clear); Bilirubin Urine Negative (Negative); Blood Urine Negative (Negative); Color Urine Dark Yellow; Glucose Urine UA Negative (Negative); Ketones Urine Negative (Negative); Leukocyte Esterase Urine Negative (Negative); Nitrite Urine Negative (Negative); Protein Urine Negative (Negative); Specific Gravity Urine 1.014 (1.000-1.030); Urobilinogen Urine Negative (Negative); pH Urine 6.5 (4.5-7.5)
--- NOTE | 2020-06-15 19:14 | History & Physical Report ---
Date of Service June 15, 2020 Assessment & Plan (1) Leg weakness: (2) History of cerebrovascular accident: (3) Carotid stenosis, bilateral: -Admit to telemetry -Patient presenting from home with reports of recurrent falls/legs giving out from under him -History of CVA 03/2020 in the setting of hypertensive urgency and bilateral carotid stenosis -Given multiple risk factors for CVA, will check brain MRI -? If symptoms are due to neuropathy; also checking B12 level -Neurology consult -Patient needs vascular evaluation for carotid stenosis and possible CEA -Continue Plavix and statin (4) Hypertensive urgency: -BP 185/122 on presentation -Asymptomatic -Give amlodipine 10 mg now and start daily -Continue home dose of metoprolol, would not increase due to mild bradycardia -Need to hold lisinopril for now due to BRUNA (5) BRUNA (acute kidney injury): -Creatinine 1.7 (baseline ~ 1.1) -Received IVF in the ED, will not give any additional at this time due to elevated BP -Holding KATELYN inhibitor -Monitor renal functions daily (6) CAD (coronary artery disease): -Appears stable, no reports of chest pain -Continue Plavix, statin, beta-marcial (7) DM type 2 (diabetes mellitus, type 2): -Hgb A1c 6.2 04/2020 -Hold metformin and utilize NovoLog per protocol while hospitalized (8) DVT prophylaxis: -SQ heparin History of Present Illness Chief Complaint: Falls, leg weakness Primary Care Provider: Pedro Pablo Gaspar MD 49-year-old male with PMH HTN, DM type II, CAD, CVA, bilateral carotid stenosis, and other problems listed below who presents the ED for evaluation of recurrent falls and lower extremity weakness. Recently, patient has been dealing with uncontrolled hypertension. He was seen in the ED on 06/05 for felix vated BP. Patient received IV hydralazine at that time and was instructed to increase his lisinopril to 30 mg daily from 20 mg. Patient presented back to the ED at 06/12 for elevated BP and again received IV hydralazine. No home medication adjustments were made at that time. Patient was seen by cardiology yesterday. In the office, BP was 102/72. He was given a prescription for as needed amlodipine for when BP is over 180/90. Patient reports that about 1 week ago, he had an episode where his left leg became weak and gave out from under him and his right leg shortly followed with the same symptoms and he fell to the ground. Patient reports experiencing this yesterday and 2 times this morning. Patient denies any associated lightheadedness, dizziness, diaphoresis, syncopal event. No chest pain or shortness of breath. Has chronic difficulty with left upper extremity fine motor movement due to previous CVA. No other unilateral weakness, numbness, tingling. Denies loss of bowel or bladder function. Patient reports severe neuropathy in both of his feet. Denies headache, blurred vision, facial droop. No difficulty speaking, understanding, swallowing. Denies any other recent illnesses, fevers, chills. No urinary symptoms. In the ED, BP is noted to be elevated, highest being 221/126. Labs show BRUNA with creatinine 1.7. Patient received IVF. Allergies Allergy/AdvReac Type Severity Reaction Status Date / Time No Known Allergies Allergy Verified 06/15/20 14:43 Home Medications Home Medications Medication Instructions Recorded Confirmed Type aspirin 81 mg PO QAM #17 tab 03/22/20 06/15/20 Rx atorvastatin 20 mg PO QAM #30 tab 03/22/20 06/15/20 Rx clopidogrel 75 mg PO QAM #30 tab 03/22/20 06/15/20 Rx fluoxetine 40 mg PO QAM 06/05/20 06/15/20 History metformin 500 mg PO BID 06/05/20 06/15/20 History metoprolol succinate 50 mg PO QAM 06/05/20 06/15/20 History trazodone 100 mg PO HS 06/05/20 06/15/20 History amlodipine 5 mg PO DAILY PRN 06/15/20 06/15/20 History gabapentin 300 mg PO TID 06/15/20 06/15/20 History lisinopril 30 mg PO DAILY 06/15/20 06/15/20 History Past Med/Surg History Medical History CAD (coronary artery disease) 2013 - NSTEMI s/p BRUCE to RCA Carotid stenosis, bilateral DM type 2 (diabetes mellitus, type 2) History of cerebrovascular accident (Acute) Hypertension (Chronic) Surgical History S/P drug eluting coronary stent placement Family History Mother , age 68 from metastatic lung cancer Lung cancer Father No problems noted. Social History Smoking Status: Current every day smoker Tobacco Type: Cigarettes Do You Dip or Chew Tobacco: No; Hx Alcohol Use: No (Reports former use, no alcohol use recently) Hx Substance Use: No Preferred Language: Chinese Communication Ability: Effective Clock And Watch Hands Dipper Required: No Beliefs That Will Affect Care: None Current Living Situation: Homeless Current Living Situation Comment: lives at homeless long term current occupational status: previously employed current occupation: [employer] employee Other Information That Helps Us Care for You: No other: 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[employer], 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 Feels Safe at Home: Yes Review of Systems Review of Systems: ROS per HPI, all other systems reviewed and negative Physical Exam Constitutional: WD/WN, vitals as above Eyes: PERRL, conjunctivae normal, anicteric sclerae ENMT: external ear and nose normal, oropharynx normal Respiratory: normal respiratory effort, lungs clear to auscultation Cardiovascular: Rate/Rhythm: regular rate and regular rhythm Vessels: normal peripheral pulses Extremities: no edema Gastrointestinal (Abdomen): normal bowel sounds, soft, nontender, no hepatosplenomegaly Musculoskeletal: no cyanosis or clubbing, extremities motor strength 5/5 Skin: no rashes, warm and dry Neurologic: PERRL, EOMI, accommodation nl, no face palsy, no dysarthria moves all extremities and awake Cranial Nerves: tongue midline Coordi nation: normal sexbeg-nj-emut test and normal edgp-od-[id number] test Mild difficulty with fine motor movement of left upper extremity Psychiatric: A+Ox3, euthymic affect Results & Data Results & Data ([facility]) Vital Signs (Past 12 Hours) Vital Signs Temp Pulse Pulse Resp BP BP Pulse Ox 06/15/20 18:53 54 L 18 201/106 H 98 06/15/20 16:46 52 L 18 179/104 H 96 06/15/20 15:11 57 L 20 151/74 H 97 06/15/20 14:26 56 L 18 221/126 H 98 06/15/20 13:32 98 06/15/20 13:27 37 C 71 20 185/122 H 98 Laboratory Results Short CBC 06/15/20 Range/Units 13:20 WBC 8.91 (4.8-10.8) K/uL Hgb 14.9 (14.0-18.0) g/dL Hct 41.5 L (42-52) % Plt Count 123 L (130-400) K/uL BMP 06/15/20 13:20 Sodium 144 Potassium 4.3 Chloride 112 H Carbon Dioxide 25 BUN 24 H Creatinine 1.70 H Glucose 117 H Calcium 9.2 Cardiac Enzymes 06/15/20 Range/Units 13:20 Total Creatine Kinase 126 (39-308) U/L Troponin I < 0.015 (0-0.045) ng/ml Liver Function 06/15/20 Range/Units 13:20 Total Bilirubin 1.0 (0.2-1) mg/dl AST 18 (15-37) U/L ALT 25 (12-78) U/L Alkaline Phosphatase 55 (45-117) U/L Albumin 3.7 (3.4-5.0) gm/dl Urine 06/15/20 Range/Units 16:00 Urine Color Dark Yellow Urine Appearance Clear (Clear) Urine pH 6.5 (4.5-7.5) Ur Specific Sabael 1.014 (1.000-1.030) Urine Protein Negative (Negative) Urine Glucose (UA) Negative (Negative) Diagnostic Findings HEAD CT IMPRESSION: 1. No acute intracranial findings. 2. Expected evolution of the multifocal infarcts within the right cerebral hemisphere since MRI of March 19, 2020. 3. No significant change in white matter hypodensities which are nonspecific but likely reflect small vessel disease, greater than expected for age. CXR IMPRESSION: No acute process. Code Status & VTE Plan VTE Prophylaxis Plan VTE Prophylaxis will be ordered: Yes Supervising Physician Co-Signing Physician Notes Patient was seen and examined by me, care coordinated with CRISTINA Castle. Please see her note above for further details. Mr Bansal is a 49-year-old male with HTN, DM type II, CAD, CVA, bilateral carotid stenosis, neuropathy who presents the ED for evaluation of recurrent falls and lower extremity weakness. Recently, patient has been dealing with uncontrolled hypertension. He was seen in ED on multiple occasions due to hypotension. Patient also has history of CVA in March 2020, which was mainly MCA territory stroke, and patient has had left upper extremity deficits and lightheadedness since then. Patient follows with [facility] neurology, was seen by Dr. Cole. For his hypertension, he was seen by cardiology yesterday. In the office, BP was 102/72. He was given a prescription for as needed amlodipine for when BP is over 180/90. Patient reports that about 1 week ago, he had an episode where his left leg became weak and gave out from under him and his right leg shortly followed with the same symptoms and he fell to the ground. Patient reports experiencing this yesterday and 2 times this morning. Patient denies any associated lightheadedness, dizziness, diaphoresis, syncopal event. No chest pain or shortness of breath. Has chronic difficulty with left upper extremity fine motor movement due to previous CVA. Patient reports severe neuropathy in both of his feet. Denies headache, blurred vision, facial droop. No difficulty speaking, understanding, swallowing. Denies any other recent illnesses, fevers, chills. No urinary symptoms. In the ED, BP is noted to be elevated, highest being 221/126. Labs show BRUNA with creatinine 1.7. Patient received IVF. Currently patient is sitting up in bed, in no acute distress. He is alert and oriented and answering questions appropriately however slowly. His main concern is his numbness and tingling in his feet that he has had for several years, and now falls that he cannot predict when they happen. Lungs are clear to auscultation bilaterally, without any wheezing rhonchi or crackles. Heart sounds regular. Abdomen is soft, nontender nondistended. Patient is able to move all 4 extremities however he has some weakness in his left upper extremity. And as mentioned above his speech is somewhat slow. We will closely monitor his blood pressure, will provide amlodipine to manage B P, will hold losartan for now given his BRUNA. Diabetes seems to be well- controlled currently, vitamin B-12 level ordered. Neurology consulted. Neto Potter MD
[2020-06-15] MEDS ORDERED: GLUCAGON FOR INJ 1 MG VIAL SQ PRN (19:25)
[2020-06-15] MEDS ORDERED: CARBOHYDRATES FOR HYPOGLYCEMIA PO PRN (19:25)
[2020-06-15] MEDS ORDERED: ACETAMINOPHEN 325 MG TAB PO PRN (19:25)
[2020-06-15] MEDS ORDERED: PHARMACIST DISCHARGE MED REC CONSULT PRN (19:25)
[2020-06-15] MEDS ORDERED: GLUCOSE 10 TABS/TUBE PO PRN (19:25)
[2020-06-15] MEDS ORDERED: GLUCOSE 40% GEL 15 GM TUBE PO PRN (19:25)
[2020-06-15] MEDS ORDERED: DEXTROSE 50% 50 ML SYRINGE IV PRN (19:25)
[2020-06-15] MEDS ORDERED: AMLODIPINE BESYLATE 5 MG TAB PO ONE (19:45)
[2020-06-15] MEDS: GABAPENTIN 300 MG CAP PO SCH (20:38)
[2020-06-15] MEDS: INSULIN ASPART 100 UNITS/ML 3 ML PEN SC SCH (20:40)
[2020-06-15] MEDS ORDERED: GADOBUTROL 65ML VIAL IV ONE (21:39)
[2020-06-15] MEDS: HEPARIN SOD 5,000 UNIT/0.5 ML VIAL SQ SCH (22:03)
[2020-06-15] MEDS: TRAZODONE HCL 100 MG TAB PO SCH (22:03)
[2020-06-16] MEDS: HEPARIN SOD 5,000 UNIT/0.5 ML VIAL SQ SCH ×3 (05:46→12:46)
[2020-06-16 06:03] LABS: Basophils # (auto) 0.02 K/uL (0-0.2); Basophils % (auto) 0.3 %; Eosinophils # (auto) 0.22 K/uL (0-0.5); Eosinophils % (auto) 2.8 %; Hematocrit (blood only) 44.7 % (42-52); Hemoglobin 15.7 g/dL (14.0-18.0); Immature Granulocytes # (auto) 0.04 K/uL (0.00-0.02); Immature Granulocytes % (auto) 0.5 %; Lymphocytes % (auto) 31.8 %; Mean Corpuscular Hemoglobin 32.2 pg (25-34); Mean Corpuscular Hgb Conc 35.1 g/dL (32-36); Mean Corpuscular Volume 91.6 fL (80-100); Mean Platelet Volume 10.4 fL (7.4-10.4); Monocytes # (auto) 0.71 K/uL (0.11-0.59); Neutrophils # (auto) 4.38 K/uL (1.4-6.5); Neutrophils % (auto) 55.6 %; Platelet Count 126 K/uL (130-400); RDW Coefficient of Variation 14.7 % (11.5-14.5); RDW Standard Deviation 49.7 fL (36.4-46.3); Red Blood Count 4.88 M/uL (4.7-6.1); White Blood Count 7.87 K/uL (4.8-10.8)
[2020-06-16 06:39] LABS: BUN Creatinine Ratio 14.8 (10-20); Calcium 8.9 mg/dl (8.5-10.1); Creatinine Clr Calc Pharmacy 67.8 ml/min; Est GFR (African American) 82.6; Est GFR (Non-African American) 71.3; Potassium 4.2 mmol/L (3.5-5.1)
--- NOTE | 2020-06-16 07:18 | Electrocardiogram Report ---
Test Reason : Blood Pressure : / mmHG Vent. Rate : 065 BPM Atrial Rate : 065 BPM P-R Int : 178 ms QRS Dur : 096 ms QT Int : 442 ms P-R-T Axes : 041 042 059 degrees QTc Int : 459 ms Normal sinus rhythm Cannot rule out Inferior infarct (cited on or before 12-JUN-2020) Abnormal ECG When compared with ECG of 12-JUN-2020 22:07, No significant change was found Confirmed by Irving Edward ([id number]) on 06/16/2020 7:17:34 AM Referred By: Confirmed By:Irving Edward
[2020-06-16] MEDS: GABAPENTIN 300 MG CAP PO SCH ×2 (07:27→12:41)
[2020-06-16] MEDS: METOPROLOL SUCC 50MG EXT REL TAB PO SCH (07:28)
[2020-06-16] MEDS: FLUOXETINE HCL 20 MG CAP PO SCH (07:29)
[2020-06-16] MEDS: CLOPIDOGREL BISULFATE 75 MG TAB PO SCH (07:29)
[2020-06-16] MEDS: ASPIRIN 81 MG ECTAB PO SCH (07:30)
--- NOTE | 2020-06-16 07:56 | Magnetic Resonance Report ---
MRI OF THE BRAIN WITHOUT AND WITH IV CONTRAST CLINICAL HISTORY: Bilateral leg weakness. Difficulty ambulating. Possible acute stroke. COMPARISON STUDY: Noncontrast head CT dated 06/15/2020, MRI the brain dated 03/19/2020 TECHNIQUE: MRI of the brain was performed from the vertex to the skull base utilizing various T1 and T2 weighted sequences. Following the IV administration of 7 mL of Gadavist contrast, additional enhan handy images were obtained. FINDINGS: Sagittal T1, axial diffusion, proton density and T2 weighted axial, coronal FLAIR, and pre and post a xial T1-weighted images were acquired. These were supplemented with post gadolinium coronal T1 weight ed images. No intra or extra-axial mass lesions are visualized. There is a 2 cm focus of restricted water diffusion within the right posterior parietal lobe, suggest yesi of a subacute infarct. There is no evidence of ventricular dilatation. Proton density T2-weighted and FLAIR images reveal moderate foci of increased T2 signal within the wh ite matter, likely on a small vessel basis. There are old right hemispheric MCA distribution infarcts . There is evidence for old laminar necrosis with gyral mineralization. There are no abnormal flow voids. There is ring enhancement surrounding the area of restricted water diffusion within the right posteri or parietal lobe. There is also postcontrast enhancement in the region of the suspected right frontal lobe infarct.. The enhancement is likely secondary to subacute postinfarct enhancement. A follow-up MRI in 3 months is recommended. IMPRESSION: 1. Multiple old right hemispheric MCA distribution infarcts 2. 2 cm focus of restricted water diffusion within the right posterior parietal lobe likely secondary to a subacute infarct 3. Ring enhancement surrounding the focus of restricted water diffusion within the right posterior pa rietal lobe, and postcontrast enhancement in the region of the suspected right frontal lobe infarct. The enhancement is likely secondary to subacute postinfarct enhancement. A follow-up MRI in 3 months is recommended. ACT 112: Negative or not required by law. Electronically signed by: Roland Mejias M.D. 06/16/2020 7:54 AM
[2020-06-16] MEDS: INSULIN ASPART 100 UNITS/ML 3 ML PEN SC SCH ×4 (08:03→21:11)
[2020-06-16] MEDS ORDERED: ATORVASTATIN 20 MG TAB PO SCH (09:00)
[2020-06-16] MEDS ORDERED: AMLODIPINE BESYLATE 5 MG TAB PO SCH (09:00)
--- NOTE | 2020-06-16 11:21 | Neurology Consultation ---
Date of Consultation June 16, 2020 Assessment & Plan (1) Acute CVA (cerebrovascular accident): (2) Left hemiparesis: (3) Carotid stenosis, bilateral: (4) Hypertensive urgency: patient has a new acute right posterior parietal stroke of a subacute nature. He has been having some increased leg weakness on the left and falling. He has some residual left arm and leg weakness from his multiple right hemispheric strokes in March of 2020. otherwise he is stable neurologically. He has been on aspirin and Plavix together he tells me. Patient has significant risk factors for stroke including 1st and foremost uncontrolled hypertension. In fact, uncontrolled hypertension could create temp orary focal neurologic deficits in addition to encephalopathy. currently he has no evidence of encephalopathy. Other risk factors include diabetes cigarette smoking. He has right (75 percent) greater than left (60 percent) carotid stenosis and significant old small vessel ischemia seen on MRI. Recommendations: 1. continue clopidogrel 75 milligrams a day. For now keep aspirin 81 milligrams daily with the clopidogrel would stop the aspirin 3 weeks. 2. there is no indication for anticoagulation in this patient. 3. the cornerstone of providing strokes in this patient is controlling his blood pressure as well as stopping cigarette smoking. He also has diabetes and he should be treated to try and lower his hemoglobin A1c closer to 6.0. Continue on his current dose of statin. 4. PT and OT consult and consider assistive device for support to prevent falls. Overall, I spent a total of 60 minutes with this case including review of records, review of MRI films, direct evaluation the patient bedside, and discussing the case with the patient at bedside, RN at bedside, and Dr. Louise Including differential diagnosis and treatment options. History of Present Illness Reason for Consultation: the patient is a 49-year-old, who I was asked to see the request of Samantha Estrada PA-C, for neurologic consultation regarding stroke. Requesting Physician: samantha Estrada PA-C Attending Physician: Jessika Louise, History of Present Illness I met this patient in March of 2020 after he had experience multiple right middle cerebral artery distribution acute strokes. This patient has a history of coronary artery disease, hypertension, type 2 diabetes, cigarette smoking, and bilateral carotid stenosis. He presented with left parminder paresis and his blood pressure was markedly elevated. He was noted to have 75 percent stenosis of the right internal carotid artery and 60 percent stenosis of the left internal carotid artery. he was discharged on March 22 with 75 milligrams clopidogrel and 81 milligrams aspirin. He was supposed to take this for 3 weeks then stop the aspirin. He was also consideration of a right carotid endarterectomy. At the time, hemoglobin A1c was 7.2 and triglycerides were 135 with total cholesterol 165. echocardiogram revealed left ventricular hypertrophy with an old inferior MT and an ejection fraction of 45 percent. Apparently, the patient never stop the aspirin and tells me that he has been on the Plavix and aspirin regularly ever since. He has cut back cigarette smoking to now pack lasts him every 4 days. He cut down on alcohol usage and will have about 2 beers per week now on weekends. His left upper extremity weakness has been about the same since the stroke and does not seem to be improving Any further. He feels that his left leg is been worse recently and when he walks he can buckle and give out causing him to fall. He has had knee scrapes because of this. These occur randomly intermittently. He does not have any additional spine pain or incontinence of urine. He has no new speech, vision, or mentation problem. He does have a chronic polyneuropathy for the last few years with numbness in his feet which affects his gait. He has had several trips to the emergency room for hypertension including June 05 and June 12. He came to the emergency room again on June 15 because of leg weakness and high blood pressure. He arrived June 15 at 1327, with a temperature of 37.0, pulse 71, respiratory rate 20, blood pressure 185/122, and O2 saturation 98 percent. He had no focal deficits on neurologic examination and had no mental status changes. CBC and Chem profile were unremarkable. Glucose was 117. B12 was 519 and TSH was 0.7. Urinalysis was unremarkable. CT scan of the head showed no acute changes. MRI of the brain showed the multiple old infarcts in the right hemisphere as before. There was a new, 2 centimeter, right posterior parietal subacute stroke. With enhancement 1 of the old lesions enhance in a ring-like fashion and the new lesion did as well. This was felt to be a transition with subacute infarct. There was no mass effect or other abnormalities. Today he feels about the same and has no new pain or weakness. Allergies Allergy/AdvReac Type Severity Reaction Status Date / Time No Known Allergies Allergy Verified 06/15/20 14:43 Home Medications Home Medications Medication Instructions Recorded Confirmed Type aspirin 81 mg PO QAM #17 tab 03/22/20 06/15/20 Rx atorvastatin 20 mg PO QAM #30 tab 03/22/20 06/15/20 Rx clopidogrel 75 mg PO QAM #30 tab 03/22/20 06/15/20 Rx fluoxetine 40 mg PO QAM 06/05/20 06/15/20 History metformin 500 mg PO BID 06/05/20 06/15/20 History metoprolol succinate 50 mg PO QAM 06/05/20 06/15/20 History trazodone 100 mg PO HS 06/05/20 06/15/20 History amlodipine 5 mg PO DAILY PRN 06/15/20 06/15/20 History gabapentin 300 mg PO TID 06/15/20 06/15/20 History lisinopril 30 mg PO DAILY 06/15/20 06/15/20 History Patient History Medical History CAD (coronary artery disease) 2014 - NSTEMI s/p BRUCE to RCA Carotid stenosis, bilateral DM type 2 (diabetes mellitus, type 2) History of cerebrovascular accident (Acute) Hypertension (Chronic) Surgical History S/P drug eluting coronary stent placement Family History Mother , age 68 from metastatic lung cancer Lung cancer Father No problems noted. 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 Required: No Beliefs That Will Affect Care: None Current Living Situation: Homeless Current Living Situation Comment: lives at [facility] current occupational status: previously employed current occupation: [employer] employee Other Information That Helps Us Care for You: No other: 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[employer], 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 Feels Safe at Home: Yes Review of Systems Constitutional: no fever, no fatigue and no weakness Eyes: no diplopia, no eye pain and no worsening vision Ear, Nose, Mouth, Throat: no ear pain, no tinnitus, no hearing loss, no dizziness, no hoarseness and no dysphagia Respiratory: no cough and no dyspnea Cardiovascular: no chest pain, no palpitations and no lightheadedness Gastrointestinal: no abdominal pain, no nausea and no vomiting Genitourinary: no dysuria and no urinary incontinence Musculoskeletal: no back pain, no neck pain, no radicular pain, no joint pain and no myalgia Integumentary: no rash and no lesions Neurologic: + gait abnormality and + localized weakness; no generalized weakness, no tingling, no numbness, no tremor(s), no abnormal movements, no headache(s), no abnormal speech, no confusion and no memory loss Psychiatric: no depression, no irritability, no anxiety, no difficulty concentrating, no confusion and no hallucinations Endocrine: no fatigue and no flushing Hematologic / Lymphatic: no easy bleeding and no easy bruising Allergy / Immunological: no urticaria and no problem reported Exam (Neuro) Physical Exam: The patient is right-handed. The patient is awake, alert, and attentive. Speech is normal without any aphasia or dysarthria. he can name objects, repeat phrases, and has normal spontaneous speech. Mentation and thought processes are intact, with orientation to person, place and time, and normal fund of knowledge. Attention and concentration are normal. Mood and affect are normal and appropriate. General appearance and grooming are normal. Short and long-term memory are intact. Pupils are 4 mm bilaterally and reactive to light. Extraocular eye muscles are intact without nystagmus. Visual acuity and visual traylor seem normal grossly to confrontation. There are no deficits to sensation in the face in all 3 distributions of the fifth cranial nerve bilaterally. Corneal reflexes are positive bilaterally. Facial strength and symmetry was normal bilaterally. Hearing seems normal to whisper and finger rub bilaterally. Palate moves well without asymmetry. There is normal sternocleidomastoid and trapezius (shoulder shrug) strength bilaterally. Tongue is midline with good strength bilaterally. Neck has a full range of motion without discomfort. Gait was not tested but is stance sitting up in bed was reasonable. With outstretched arms there is no drift. There are no resting, postural, or action tremors. There is no ataxia with finger to nose testing. There is good facility in the hands. No other abnormal involuntary movements are noted. Motor strength is 5/5 diffusely in the arms bilaterally including deltoids, biceps, triceps, brachioradialis, wrist flexors and extensors, cage loader, and intrinsic hand muscles. Motor strength is 5/5 diffusely in the legs bilaterally including hip flexors, quadriceps, hamstrings, gastrocnemius, tibialis anterior, tibialis posterior, and Peroneii muscles. Toe extensors are normal and there is good bulk in the extensor digitorum brevis muscles bilaterally. The limbs have good tone without rigidity or spasticity. There is no atrophy noted in the muscles. Muscle bulk is normal, there is no tenderness to palpation, no myotonia to percussion, and no fasciculations seen. Sensory examination is intact to touch and pin throughout all 4 limbs diffusely. Vibratory and position sense testing is normal bilaterally as well. There is normal sensation to temperature. Reflexes are 1/4 in the biceps, triceps, and brachioradialis tendons bilaterally. quadriceps and Achilles tendon reflexes are absent bilaterally. There is no clonus bilaterally. Toes are downgoing with plantar stimulation bilaterally. Peripheral pulses are present and of normal quality distally in all 4 limbs. There is no peripheral edema noted in the limbs. Results & Data ([facility]) Vital Signs (Past 12 Hours) Vital Signs Temp Pulse Pulse Pulse Resp BP BP 06/16/20 08:34 57 L 06/16/20 07:26 36.4 C L 51 L 18 156/84 H 06/16/20 04:00 36.8 C 50 L 18 113/68 06/16/20 00:40 56 L 06/16/20 00:03 36.7 C 49 L 18 168/84 H Pulse Ox 06/16/20 08:34 06/16/20 07:26 96 06/16/20 04:00 96 06/16/20 00:40 06/16/20 00:03 95 Diagnostic Findings MRI OF THE BRAIN WITHOUT AND WITH IV CONTRAST CLINICAL HISTORY: Bilateral leg weakness. Difficulty ambulating. Possible acute stroke. COMPARISON STUDY: Noncontrast head CT dated 06/15/2020, MRI the brain dated 03/19/2020 TECHNIQUE: MRI of the brain was performed from the vertex to the skull base utilizing various T1 and T2 weighted sequences. Following the IV administration of 7 mL of Gadavist contrast, additional enhanced images were obtained. FINDINGS: Sagittal T1, axial diffusion, proton density and T2 weighted axial, coronal FLAIR, and pre and post axial T1-weighted images were acquired. These were supplemented with post gadolinium coronal T1 weighted images. No intra or extra-axial mass lesions are visualized. There is a 2 cm focus of restricted water diffusion within the right posterior parietal lobe, suggestive of a subacute infarct. There is no evidence of ventricular dilatation. Proton density T2-weighted and FLAIR images reveal moderate foci of increased T2 signal within the white matter, likely on a small vessel basis. There are old right hemispheric MCA distribution infarcts. There is evidence for old laminar necrosis with gyral mineralization. There are no abnormal flow voids. There is ring enhancement surrounding the area of restricted water diffusion within the right posterior parietal lobe. There is also postcontrast enhancement in the region of the suspected right frontal lobe infarct.. The enhancement is likely secondary to subacute postinfarct enhancement. A follow-up MRI in 3 months is recommended. IMPRESSION: 1. Multiple old right hemispheric MCA distribution infarcts 2. 2 cm focus of restricted water diffusion within the right posterior parietal lobe likely secondary to a subacute infarct 3. Ring enhancement surrounding the focus of restricted water diffusion within the right posterior parietal lobe, and postcontrast enhancement in the region of the suspected right frontal lobe infarct. The enhancement is likely secondary to subacute postinfarct enhancement. A follow-up MRI in 3 months is recommended. ACT 112: Negative or not required by law. Electronically signed by: Roland Mejias M.D. 06/16/2020 7:54 AM PG Care Time/CCT Total # of Minutes Spent Total Time Spent with Patient: Total time spent is greater than 50% in coordination of care (as documented) at patient's floor/unit and/or counseling patient: Coding Level of Care Code 19569 Initial Inpt Care Lvl 3 Diagnoses Acute CVA (cerebrovascular accident) I63.9 Left hemiparesis G81.94 Carotid stenosis, bilateral I65.23 Hypertensive urgency I16.0 Time Spent (min) 60
[2020-06-16] MEDS ORDERED: OXYCODONE/ACETAMINOPHEN 5mg/325mg TAB PO STA (16:44)
[2020-06-16] MEDS ORDERED: ACETAMINOPHEN 500 MG TAB PO PRN (16:47)
--- NOTE | 2020-06-16 16:55 | Hospitalist Progress Note ---
Date of Service June 16, 2020 Assessment & Plan (1) Acute CVA (cerebrovascular accident): Neurology recommends DAPT x 3 weeks, then plavix indefinitely. Likely stroke related to uncontrolled HTN in setting of uncontrolled DM with polyneuropathy and active smoking. He also has known bilateral carotid stenosis that may need to be evaluated by a vascular surgeon as outpatient. Would decide this at Neurology follow-up in 4 weeks time. Telemetry reviewed and no atrial arrhythmias present. Cont monitoring for now. PT/OT still to evaluate patient- may benefit from acute rehab stay. Tolerating PO. Low salt diet strongly recommended. Additional BP control per plan below. I did intensify his statin therapy to Liptior 80mg daily. Nicoderm patch with strong recommendation to quit smoking. (2) Hypertensive urgency: BP has improved overnight, although it was a good idea to allow permissive hypertension within the first 48 hours of stroke. BP is currently at goal and patient is feeling better. Low salt diet ordered. Of note, he reports having high salt diet this week during his move--moved from apartment to apartment in the wake of [employer] as a way to social distance those residents in the transition house. He made his final move back to the [facility] location just this week, but has lost many things in the process and has been stressed about this, even filing a police report. Will restart home lisinopril now that BRUNA has resolved and will reduce Norvasc to 5mg which is what he has at home. With respect to additional stressors, he also is without a job and is not on disability so has no income at the moment. He will need to work with someone in Case Management regarding making application for disability related to strokes. That being said, it is reasonable to conclude that although he was following the instructions for medications correctly, outside forces were also driving up his pressure via anxiety, which he frankly reports is present. (3) Leg weakness: Improved, pending PT/OT assessments (4) Carotid stenosis, bilateral: outpatient vascular evaluation recommended with known h/o bilateral carotid stenosis. Cont DAPT for now and Plavix indefinitely (5) BRUNA (acute kidney injury): resolved, restarted ACEI (6) CAD (coronary artery disease): stable, denies chest pain or other ACS symptoms. Cont medical management of CAD (7) DM type 2 (diabetes mellitus, type 2): A1C 7.2. Cont insulin while hospitalized, resume oral medications on discharge. (8) Smoker: strongly encouraged to quit, Nicoderm provided (9) DVT prophylaxis: Lovenox with improved creatinine, to lower shot burden FUll Code Dispo-back to transition house at discharged pending PT and OT assessments. Jessika Louise DO [facility] Hospitalist Admission and Anticipated Discharge Date Admission Date: June 15, 2020 Subjective Pt is upset and feels no one is doing anything for him reports severe neuropathy, presumed 2/2 diabetes-newly started on gabapentin recent uptitration 1.5 weeks ago to 300mg TID and no effect we discussed alternatives he reports a h/o chronic opiate use in the past 2/2 chronic pancreatitis he reports active smoking he lives in a transition house and is currently unemployed he receives medications and medical care through [place] he reports poor vision, recently saw a retinal specialist and was told to see an music intern for refractive lenses. feels leg weakness and gait instability is improved since yesterday but hasn't seen a therapist yet today tolerating PO Review of Systems Review of Systems: All systems reviewed & are unremarkable except as noted in Subjective Physical Exam Physical Exam: CONSTITUTIONAL: WNWD,BP is 135/65, generally well-appearing EYES: EOMI bilaterally, pupils are round and equal bilaterally, normal conjunctivae ENT: external ear and nose normal, oropharynx clear, poor dentition, MMM RESPIRATORY: clear to auscultation bilaterally, no crackles, rales or wheezes, normal respiratory effort CARDIOVASCULAR: regular rate and rhythm, S1 and 2 heard without murmurs, gallops or rubs, no JVD, no peripheral edema GASTROINTESTINAL: soft, nontender, nondistended MUSCULOSKELETAL: strength 5/5 throughout, head is normocephalic and atraumatic SKIN: warm and dry, small scrape on left knee, covered by Optifoam which is c/d/i NEUROLOGIC: patellar DTRs 2+ on the left. PERRL, EOMI, no facial palsy, no dysarthria. CN 2-12 grossly intact, decreased sensation on plantar side of feet bilaterally-feels this extends to mid calves bilaterally, normal cognition, normal speech PSYCHIATRIC: alert cooperative and oriented to person, place and time. Euthymic mood, makes good eye contact, language grossly intact, recent and remote memory grossly intact. Results & Data Results & Data ([facility]) Vital Signs (Past 12 Hours) Vital Signs Temp Pulse Pulse Resp BP BP Pulse Ox 06/16/20 11:39 36.7 C 56 L 16 139/72 95 06/16/20 08:34 57 L 06/16/20 07:26 36.4 C L 51 L 18 156/84 H 96 Laboratory Results Short CBC 06/16/20 Range/Units 05:38 WBC 7.87 (4.8-10.8) K/uL Hgb 15.7 (14.0-18.0) g/dL Hct 44.7 (42-52) % Plt Count 126 L (130-400) K/uL BMP 06/16/20 05:38 Sodium 145 Potassium 4.2 Chloride 113 H Carbon Dioxide 29 BUN 18 Creatinine 1.19 D Glucose 103 H Calcium 8.9 Medications Administered Current Inpatient Medications Acetaminophen (Tylenol) 500 mg PO Q4H PRN PRN Reason: Pain or Fever Stop: 07/15/20 19:24 Amlodipine Besylate (Norvasc) 10 mg PO [facility] Stop: 07/16/20 08:59 Last Admin: 06/16/20 07:28 Dose: 10 mg Documented by: [facility] ([facility]) [facility] Stop: 07/16/20 08:59 Last Admin: 06/16/20 07:30 Dose: 81 mg Documented by: Atorvastatin Calcium (Lipitor) 80 mg PO HS [facility] Stop: 07/16/20 20:59 Clopidogrel Bisulfate (Plavix) [facility] Stop: 07/16/20 08:59 Last Admin: 06/16/20 07:29 Dose: 75 mg Documented by: Dextrose (Dextrose 50%) 25 - 50 ml IV UD PRN; Protocol PRN Reason: Hypoglycemia Protocol Stop: 07/15/20 19:24 Enoxaparin Sodium (Lovenox) [facility] Stop: 07/17/20 08:59 Fluoxetine HCl (Prozac) 40 mg PO QAM [facility] Stop: 07/16/20 08:59 Last Admin: 06/16/20 07:29 Dose: 40 mg Documented by: Gabapentin (Neurontin) 600 mg PO 1700 ONE Stop: 06/16/20 17:01 Gabapentin (Neurontin) 600 mg PO TID [facility] Stop: 07/16/20 20:59 Glucagon (Glucagen) 1 mg SQ UD PRN; Protocol PRN Reason: Hypoglycemia Protocol Stop: 07/15/20 19:24 Glucose (Dex4 Glucose) 4 - 8 tabs PO UD PRN; Protocol PRN Reason: Hypoglycemia Protocol Stop: 07/15/20 19:24 Glucose (Glucose 40%) 15 - 30 gm PO UD PRN; Protocol PRN Reason: Hypoglycemia Protocol Stop: 07/15/20 19:24 Insulin Aspart (Novolog Flexpen) 0 units SC ACHS [facility] Stop: 07/15/20 20:59 Last Admin: 06/16/20 12:40 Dose: 4 units Documented by: Metoprolol Succinate (Toprol Xl) 50 mg PO QAM [facility] Stop: 07/16/20 08:59 Last Admin: 06/16/20 07:28 Dose: 50 mg Documented by: Miscellaneous (Carbohydrates For Hypoglycemia) 15 - 30 gm PO UD PRN PRN Reason: Hypoglycemia Protocol Stop: 07/15/20 19:24 Miscellaneous (Remove Nicoderm Patch) 1 ea N/A DAILY@858 [facility] Stop: 07/17/20 08:58 Miscellaneous Information (Pharmacist Discharge Med Rec Consult) 1 ea N/A UD PRN PRN Reason: Consult Stop: 07/15/20 19:24 Nicotine (Nicoderm Cq) 21 mg TD [facility] Stop: 07/16/20 16:59 Oxycodone/Acetaminophen (Percocet 5mg/325mg) 1 tab PO Q4H PRN PRN Reason: Pain Stop: 06/30/20 16:43 Trazodone HCl (Desyrel) 100 mg PO HS [facility] Stop: 07/15/20 20:59 Last Admin: 06/15/20 22:03 Dose: 100 mg Documented by:
[2020-06-16] MEDS ORDERED: GABAPENTIN 600 MG TAB PO ONE (17:00)
[2020-06-16] MEDS: NICOTINE 21 MG/24 HR TDSY TD SCH (17:17)
[2020-06-16] MEDS: TRAZODONE HCL 100 MG TAB PO SCH (20:10)
[2020-06-16] MEDS: GABAPENTIN 600 MG TAB PO SCH (20:11)
[2020-06-16] MEDS: ATORVASTATIN 40 MG TAB PO SCH (20:11)
[2020-06-16] MEDS: OXYCODONE/ACETAMINOPHEN 5mg/325mg TAB PO PRN (22:15)
[2020-06-17 05:52] LABS: Basophils # (auto) 0.01 K/uL (0-0.2); Basophils % (auto) 0.1 %; Eosinophils # (auto) 0.19 K/uL (0-0.5); Eosinophils % (auto) 2.6 %; Hematocrit (blood only) 42.8 % (42-52); Immature Granulocytes # (auto) 0.03 K/uL (0.00-0.02); Immature Granulocytes % (auto) 0.4 %; Lymphocytes # (auto) 2.58 K/uL (1.2-3.4); Lymphocytes % (auto) 35.9 %; Mean Corpuscular Hemoglobin 31.6 pg (25-34); Mean Corpuscular Volume 90.1 fL (80-100); Mean Platelet Volume 10.6 fL (7.4-10.4); Monocytes # (auto) 0.64 K/uL (0.11-0.59); Monocytes % (auto) 8.9 %; Neutrophils # (auto) 3.74 K/uL (1.4-6.5); Neutrophils % (auto) 52.1 %; Platelet Count 122 K/uL (130-400); RDW Coefficient of Variation 14.4 % (11.5-14.5); RDW Standard Deviation 47.4 fL (36.4-46.3); Red Blood Count 4.75 M/uL (4.7-6.1); White Blood Count 7.19 K/uL (4.8-10.8)
[2020-06-17 06:23] LABS: BUN Creatinine Ratio 16.4 (10-20); Calcium 9.2 mg/dl (8.5-10.1); Creatinine Clr Calc Pharmacy 64.5 ml/min; Est GFR (African American) 77.9; Est GFR (Non-African American) 67.2; Potassium 4.5 mmol/L (3.5-5.1)
[2020-06-17] MEDS: INSULIN ASPART 100 UNITS/ML 3 ML PEN SC SCH ×4 (08:25→20:57)
[2020-06-17] MEDS: lisinopriL 10 MG TAB PO SCH (08:26)
[2020-06-17] MEDS: CLOPIDOGREL BISULFATE 75 MG TAB PO SCH (08:26)
[2020-06-17] MEDS: NICOTINE 21 MG/24 HR TDSY TD SCH (08:27)
[2020-06-17] MEDS: AMLODIPINE BESYLATE 5 MG TAB PO SCH (08:27)
[2020-06-17] MEDS: ASPIRIN 81 MG ECTAB PO SCH (08:27)
[2020-06-17] MEDS: METOPROLOL SUCC 50MG EXT REL TAB PO SCH (08:27)
[2020-06-17] MEDS: GABAPENTIN 600 MG TAB PO SCH ×3 (08:27→19:55)
[2020-06-17] MEDS: ENOXAPARIN INJ 40 MG/0.4 ML SYR SQ SCH (08:27)
[2020-06-17] MEDS: FLUOXETINE HCL 20 MG CAP PO SCH (08:27)
--- NOTE | 2020-06-17 15:28 | Hospitalist Progress Note ---
Date of Service June 17, 2020 Assessment & Plan (1) Acute CVA (cerebrovascular accident): Neurology recommends DAPT x 3 weeks, then plavix indefinitely. Likely stroke related to uncontrolled HTN in setting of uncontrolled DM with polyneuropathy and active smoking. BP controlled overnight on current regimen. He also has known bilateral carotid stenosis that may need to be evaluated by a vascular surgeon as outpatient. Neuro follow-up in 4 weeks. Cont monitoring for now. PT/OT still to evaluate patient-may benefit from acute rehab stay. Tolerating PO. Low salt diet strongly recommended. His statin therapy was intensified to 80mg daily. Nicoderm patch with strong recommendation to quit smoking. (2) Hypertensive urgency: improved overnight. Cont current regimen. (3) Leg weakness: Improved, pending PT/OT assessments (4) Carotid stenosis, bilateral: outpatient vascular evaluation recommended with known h/o bilateral carotid stenosis. Cont DAPT for now and Plavix indefinitely (5) BRUNA (acute kidney injury): resolved, restarted ACEI (6) CAD (coronary artery disease): stable, denies chest pain or other ACS symptoms. Cont medical management of CAD (7) DM type 2 (diabetes mellitus, type 2): A1C 7.2. Cont insulin while hospitalized, resume oral medications on discharge. (8) Smoker: strongly encouraged to quit, Nicoderm provided (9) DVT prophylaxis: Lovenox Full Code Dispo-back to transition house at discharged pending PT and OT assessments. Jessika Louise DO [facility] Hospitalist Admission and Anticipated Discharge Date Admission Date: June 16, 2020 Subjective feels neuropathy pain is better controlled leg weakness is improved, however, says that PT and OT felt [facility] was warranted denies chest pain, SOB or other issues at this time tolerting PO Review of Systems Review of Systems: All systems reviewed & are unremarkable except as noted in Subjective Physical Exam Physical Exam: CONSTITUTIONAL: WNWD, generally well-appearing EYES: pupils are round and equal bilaterally, normal conjunctivae ENT: external ear and nose normal, oropharynx clear, poor dentition, MMM RESPIRATORY: clear to auscultation bilaterally, no crackles, rales or wheezes, normal respiratory effort CARDIOVASCULAR: regular rate and rhythm, S1 and 2 heard without murmurs, gallops or rubs, no JVD, no peripheral edema GASTROINTESTINAL: soft, nontender, nondistended MUSCULOSKELETAL: strength 5/5 throughout, head is normocephalic and atraumatic SKIN: warm and dry, small scrape on left knee NEUROLOGIC: CN 2-12 grossly intact, normal cognition, normal speech PSYCHIATRIC: alert cooperative and oriented Results & Data Results & Data ([facility]) Vital Signs (Past 12 Hours) Vital Signs Temp Pulse Resp BP Pulse Ox 06/17/20 15:14 36.7 C 58 L 18 112/76 97 06/17/20 11:47 36.7 C 56 L 18 142/76 H 98 06/17/20 08:27 36.8 C 56 L 18 118/63 96 06/17/20 03:59 36.3 C L 47 L 17 122/75 98 Laboratory Results Short CBC 06/17/20 Range/Units 05:25 WBC 7.19 (4.8-10.8) K/uL Hgb 15.0 (14.0-18.0) g/dL Hct 42.8 (42-52) % Plt Count 122 L (130-400) K/uL BMP 06/17/20 05:25 Sodium 142 Potassium 4.5 Chloride 113 H Carbon Dioxide 25 BUN 21 H Creatinine 1.25 Glucose 95 Calcium 9.2 Medications Administered Current Inpatient Medications Acetaminophen (Tylenol) 500 mg PO Q4H PRN PRN Reason: Pain or Fever Stop: 07/15/20 19:24 Amlodipine Besylate (Norvasc) 5 mg PO [facility] Stop: 07/17/20 08:59 Last Admin: 06/17/20 08:27 Dose: 5 mg Documented by: Aspirin (Ecotrin Ectab) 81 mg PO [facility] Stop: 07/16/20 08:59 Last Admin: 06/17/20 08:27 Dose: 81 mg Documented by: Atorvastatin Calcium (Lipitor) 80 mg PO [facility] Stop: 07/16/20 20:59 Last Admin: 06/16/20 20:11 Dose: 80 mg Documented by: Clopidogrel [facility]ate (Plavix) [facility] Stop: 07/16/20 08:59 Last Admin: 06/17/20 08:26 Dose: 75 mg Documented by: Dextrose (Dextrose 50%) 25 - 50 ml IV UD PRN; Protocol PRN Reason: Hypoglycemia Protocol Stop: 07/15/20 19:24 Enoxaparin Sodium (Lovenox) 40 mg SQ QAM [facility] Stop: 07/17/20 08:59 Last Admin: 06/17/20 08:27 Dose: 40 mg Documented by: Fluoxetine HCl (Prozac) 40 mg PO QAM [facility] Stop: 07/16/20 08:59 Last Admin: 06/17/20 08:27 Dose: 40 mg Documented by: Gabapentin (Neurontin) 600 mg PO TID [facility] Stop: 07/16/20 20:59 Last Admin: 06/17/20 14:28 Dose: 600 mg Documented by: Glucagon (Glucagen) 1 mg SQ UD PRN; Protocol PRN Reason: Hypoglycemia Protocol Stop: 07/15/20 19:24 Glucose (Dex4 Glucose) 4 - 8 tabs PO UD PRN; Protocol PRN Reason: Hypoglycemia Protocol Stop: 07/15/20 19:24 Glucose (Glucose 40%) 15 - 30 gm PO UD PRN; Protocol PRN Reason: Hypoglycemia Protocol Stop: 07/15/20 19:24 Insulin Aspart (Novolog Flexpen) 0 units SC ACHS [facility] Stop: 07/15/20 20:59 Last Admin: 06/17/20 12:20 Dose: 3 units Documented by: Lisinopril (Zestril) 30 mg PO DAILY [facility] Stop: 07/17/20 08:59 Last Admin: 06/17/20 08:26 Dose: 30 mg Documented by: Metoprolol Succinate (Toprol Xl) 50 mg PO QAM [facility] Stop: 07/16/20 08:59 Last Admin: 06/17/20 08:27 Dose: 50 mg Documented by: Miscellaneous (Carbohydrates For Hypoglycemia) 15 - 30 gm PO UD PRN PRN Reason: Hypoglycemia Protocol Stop: 07/15/20 19:24 Miscellaneous (Remove Nicoderm Patch) 1 ea N/A DAILY@0859 [facility] Stop: 07/17/20 08:58 Last Admin: 06/17/20 08:34 Dose: 1 ea Documented by: Miscellaneous Information (Pharmacist Discharge Med Rec Consult) 1 ea N/A UD PRN PRN Reason: Consult Stop: 07/15/20 19:24 Nicotine (Nicoderm Cq) 21 mg TD [facility] Stop: 07/16/20 16:59 Last Admin: 06/17/20 08:27 Dose: 21 mg Documented by: Oxycodone/Acetaminophen (Percocet 5mg/325mg) 1 tab PO Q4H PRN PRN Reason: Pain Stop: 06/30/20 16:43 Last Admin: 06/16/20 22:15 Dose: 1 tab Documented by: Trazodone HCl (Desyrel) 100 mg PO HS [facility] Stop: 07/15/20 20:59 Last Admin: 06/16/20 20:10 Dose: 100 mg Documented by:
[2020-06-17] MEDS: TRAZODONE HCL 100 MG TAB PO SCH (19:55)
[2020-06-17] MEDS: ATORVASTATIN 40 MG TAB PO SCH (19:55)
[2020-06-17] MEDS: OXYCODONE/ACETAMINOPHEN 5mg/325mg TAB PO PRN (20:07)
[2020-06-17] MEDS ORDERED: LORazepam 0.5 MG TAB PO STA (23:07)
[2020-06-17] MEDS ORDERED: MELATONIN 3 MG TAB PO PRN (23:08)
[2020-06-18 08:06] LABS: Basophils # (auto) 0.01 K/uL (0-0.2); Basophils % (auto) 0.1 %; Eosinophils # (auto) 0.17 K/uL (0-0.5); Eosinophils % (auto) 1.9 %; Hematocrit (blood only) 44.9 % (42-52); Hemoglobin 15.9 g/dL (14.0-18.0); Immature Granulocytes # (auto) 0.04 K/uL (0.00-0.02); Immature Granulocytes % (auto) 0.4 %; Lymphocytes # (auto) 2.44 K/uL (1.2-3.4); Mean Corpuscular Hemoglobin 31.7 pg (25-34); Mean Corpuscular Hgb Conc 35.4 g/dL (32-36); Mean Corpuscular Volume 89.4 fL (80-100); Mean Platelet Volume 10.4 fL (7.4-10.4); Monocytes # (auto) 0.71 K/uL (0.11-0.59); Monocytes % (auto) 7.9 %; Neutrophils # (auto) 5.67 K/uL (1.4-6.5); Neutrophils % (auto) 62.7 %; Platelet Count 126 K/uL (130-400); RDW Coefficient of Variation 14.5 % (11.5-14.5); RDW Standard Deviation 47.2 fL (36.4-46.3); Red Blood Count 5.02 M/uL (4.7-6.1); White Blood Count 9.04 K/uL (4.8-10.8)
[2020-06-18] MEDS: GABAPENTIN 600 MG TAB PO SCH ×3 (08:10→20:05)
[2020-06-18] MEDS: ASPIRIN 81 MG ECTAB PO SCH (08:10)
[2020-06-18] MEDS: AMLODIPINE BESYLATE 5 MG TAB PO SCH (08:10)
[2020-06-18] MEDS: METOPROLOL SUCC 50MG EXT REL TAB PO SCH (08:10)
[2020-06-18] MEDS: lisinopriL 10 MG TAB PO SCH (08:10)
[2020-06-18] MEDS: ENOXAPARIN INJ 40 MG/0.4 ML SYR SQ SCH (08:11)
[2020-06-18] MEDS: NICOTINE 21 MG/24 HR TDSY TD SCH (08:11)
[2020-06-18] MEDS: FLUOXETINE HCL 20 MG CAP PO SCH (08:11)
[2020-06-18] MEDS: CLOPIDOGREL BISULFATE 75 MG TAB PO SCH (08:11)
[2020-06-18] MEDS: INSULIN ASPART 100 UNITS/ML 3 ML PEN SC SCH ×4 (08:12→20:17)
[2020-06-18 08:37] LABS: BUN Creatinine Ratio 17.2 (10-20); Calcium 9.8 mg/dl (8.5-10.1); Creatinine Clr Calc Pharmacy 57.2 ml/min; Est GFR (African American) 67.3; Est GFR (Non-African American) 58.1; Potassium 4.7 mmol/L (3.5-5.1)
[2020-06-18] MEDS: OXYCODONE/ACETAMINOPHEN 5mg/325mg TAB PO PRN ×2 (11:20→21:28)
--- NOTE | 2020-06-18 13:32 | Neurology Progress Note ---
Date of Service June 18, 2020 Assessment & Plan (1) Chronic ischemic right MCA stroke: Deyvi Bansal is a 49 yo man w/ PMH of HTN, HLD, DM, tobacco abuse, h/o alcohol abuse and known bilateral carotid artery stenosis who p/t [facility] after acute worsening of LLE weakness, found to have a subacute infarct within/nearby the prior R MCA stroke bed. Symptom localization: posterior right MCA territory Stroke mechanism: vessel to vessel embolus vs cardioembolic Stroke WorkUp: - CT head: hypodensities within the right frontal/parietal lobes - CTA head/neck (from 03/2020): moderate stenosis of the R ICA, mild stenosis of the L ICA, no other LVO, high-grade stenosis or aneurysm noted - MRI brain: subacute infarct in the old right posterior parietal lobe infarct, multiple chronic infarcts in right hemispheric territory, +moderate SVID - TTE: pending, will consider POLA - Telemetry: pending - A1c: pending - FLP: pending - Troponin, TSH: negative, WNL - Hypercoagulable labs: Ordered for the AM (Cardiolipin Ab, Protein C and S, ATIII, FV Leiden, APC resistance) Stroke Management: - Acute treatment: ASA - Continuous cardiac monitoring, will consider Holter monitor as outpatient if telemetry here unrevealing - Vitals, Neurochecks, NIHSS per unit routine - BP parameters: SBP CAP 180, restart home anti-hypertensives for permissive HTN, IV Labetalol PRN - Complete ischemic stroke workup with TTE without bubble, A1c, fasting lipid panel, hypercoagulability panel - Consult speech, PT, OT for supportive management - Will staff genetic counselor concerning stroke education, smoking cessation, healthy diet, physical activity, weight loss - Follow up with PCP for assistance with outpatient goals (BP <135/85, LDL <70, A1c <7) - Follow up in neurology clinic in 6-8 weeks (can be with BARB Lucero) - Vascular surgery consult for more urgent CEA vs carotid stent given symptomatic R ICA stenosis Secondary Stroke Prevention: - Antiplatelet: continue ASA 81mg po daily/plavix 75mg daily for now - Anticoagulation: Not indicated at this time - Statin: Atorvastatin 40mg daily HTN: - BP parameters, as above - Restart home medications with goal of lowering BP to normotension over next 3- 4 days FEN/GI: - Diet: Cardiac HH diet and PO meds given absence of bulbar signs or symptoms - Monitor lytes and replete PRN Glucose Control: - Sliding scale insulin and accuchecks per primary team to avoid hyperglycemia Thank you for this interesting consult. Plan of care was discussed with primary team. Please call with any questions. (2) CAD (coronary artery disease): (3) DM type 2 (diabetes mellitus, type 2): (4) Carotid stenosis, bilateral: (5) History of cerebrovascular accident: (6) Hypertension: (7) Smoker: Admission and Anticipated Discharge Date Admission Date: June 16, 2020 Subjective NAEs overnight. Feels like he is doing a little bit better has been able to get out of bed to go to the bathroom but cannot ambulate on its own. Review of Systems Review of Systems: 14 point review of systems completed and negative except as in HPI. Results & Data ([facility]) Vital Signs (Past 12 Hours) Vital Signs Temp Pulse Pulse Resp BP Pulse Ox 06/18/20 11:00 36.7 C 54 L 19 153/68 H 94 06/18/20 08:00 50 L 06/18/20 07:06 36.5 C 59 L 19 106/64 94 06/18/20 04:04 36.5 C 55 L 17 107/64 97 Exam (Neuro) Physical Exam: General Exam: GEN: NAD, sitting down in examination bed. HEENT: No conjunctival injection, no rhinorrhea CV: RRR on monitor, no significant edema. PULM: Nonlabored respirations on room air. Neuro Exam: MS: Awake and Alert. Oriented to person, place, and date. Speech fluent and appropriate without dysarthria or paraphasic errors. Language intact including naming, comprehension, repetition. Cognition and memory grossly intact. Attention intact. No neglect. CN: Visual garcia full, + blink to threat bilaterally. No extinction to double simultaneous stimuli. Normal fundoscopic exam. PERRLA OU. EOMI without nystagmus. Facial sensation intact to LT. Facial muscles full and symmetric. Hearing intact to finger rub bilaterally. Uvula midline with symmetric palatal elevation. Shoulder shrug normal. Tongue midline. MOTOR: Normal bulk and tone. Subtle LUE pronator drift. BUE strength 5/5 at deltoids, biceps, triceps, wrist flexors and extensors, and finger flexors bilaterally. BLE strength 5/5 at iliopsoas, hamstrings, quadriceps, tibialis anterior, and gastrocnemius bilaterally. REFLEXES: 1+ at biceps, triceps, brachioradialis, trace patella, and absent Achilles bilaterally. Flexor plantar responses bilaterally. SENSORY: Intact to LT/vibration throughout, no extinction to double simultaneous stimuli. COORDINATION: No dysmetria or ataxia on [id number]-[id number] bilaterally. Normal Brendon bilaterally. GAIT: Deferred due to physical status. NIH STROKE SCALE 1A. Level of Consciousness (0-3) = 0 1B. LOC Questions (0-2) = 0 1C. LOC Commands (0-2) = 0 2. Best Horizontal Gaze (0-2) = 0 3. Visual Garcia (0-3) = 0 4. Facial Palsy (0-3) = 0 5. Motor Arm Right (0-4) = 0 Left (0-4) = 0 6. Motor Leg Right (0-4) = 0 Left (0-4) = 0 7. Limb Ataxia (0-2) = 0 8. Sensory (0-2) = 0 9. Best Language (0-3) = 0 10. Dysarthria (0-2) = 0 11. Extinction and Inattention (0-2) = 0 NIHSS TOTAL = 0 PG Care Time/CCT Total # of Minutes Spent Total Time Spent with Patient: Total time spent is greater than 50% in coordination of care (as documented) at patient's floor/unit and/or counseling patient: Coding Level of Care Code 73522 Subseq Hosp Care Lvl 3 Diagnoses Chronic ischemic right MCA stroke I69.30 CAD (coronary artery disease) I25.10 DM type 2 (diabetes mellitus, type 2) E11.9 Carotid stenosis, bilateral I65.23 History of cerebrovascular accident Z86.73 Hypertension I10 Hypertension type: essential hypertension Smoker F17.200 (1) Hypertension Hypertension type: essential hypertension Qualified Code(s): I10 - Essential (primary) hypertension
[2020-06-18] MEDS: ATORVASTATIN 40 MG TAB PO SCH (20:05)
[2020-06-18] MEDS: TRAZODONE HCL 100 MG TAB PO SCH (20:05)
--- NOTE | 2020-06-18 22:49 | Hospitalist Progress Note ---
Date of Service June 18, 2020 Assessment & Plan (1) Stroke: Prior right MCA ischemic strokes. Presented with LUE weakness. CT demonstrated multifocal old infarcts right MCA territory as well as small vessel ischemic disease. MRI demonstrated multiple old right hemispheric MCA infarcts as well as subacute infarct right posterior parietal lobe. MRI also demonstrated: "... ring enhancement surrounding the area of restricted water diffusion within the right posterior parietal lobe. There is also postcontrast enhancement in the region of the suspected right frontal lobe infarct.. The enhancement is likely secondary to subacute postinfarct enhancement. A follow-up MRI in 3 months is recommended." Echo in March did not show any cardiac thrombi or evidence of right to left shunt with bubble study. CTA in March demonstrated 75% stenosis right ICA and 60% stenosis left ICA. Cardiac rhythm has been sinus. Neuro consulted. Dual antiplatelet therapy with aspirin + clopidogrel recommended. Work-up for hypercoagulable conditions ordered. Repeat echo; no need to repeat bubble study. Consult Vascular Surgery regarding carotid disease. 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 Check lipid profile. Continue high-intensity statin. (2) Carotid stenosis, bilateral: As discussed above. (3) CAD (coronary artery disease): No anginal symptoms. Continue aspirin, clopidogrel, metoprolol, lisinopril, statin. (4) Hypertensive urgency: BP 218/125 at time of presentation. BP's improved. Avoid excessive lowering of blood pressure in setting of acute ischemic stroke. (5) BRUNA (acute kidney injury): Serum creatinine as high as 1.7. BRUNA, possible secondary to hypertensive urgency. Creatinine today = 1.41. Follow. (6) DM type 2 (diabetes mellitus, type 2): Check Hgb A1c. (7) Depression: Fluoxetine not effective. Denies suicidal thoughts. Consult Psychiatry. (8) Smoker: Smoking cessation counseling. (9) DVT prophylaxis: SQ enoxaparin. Ambulate. (10) Discharge planning issues: Discharge disposition to be determined. Family Medicine follow-up with Dr. Gaspar. Admission and Anticipated Discharge Date Admission Date: June 16, 2020 Subjective Recheck for stroke and other problems. Patient seen in their room around 1450. No headache. No new neuro symptoms; persistent clumsiness of left hand Neuropathic pain better with increased dose of gabapentin. Depressed. Fluoxetine not effective. Would like Psychiatry consultation. Review of Systems: Constitutional- no fever. Cardiac- no chest pain. Pulmonary- no cough or SOB. GI- no nausea, vomiting, diarrhea, melena, hematochezia. - no urinary symptoms. Otherwise, as noted above. Physical Exam Constitutional: no acute distress Respiratory: no respiratory distress Auscultation: lungs clear to auscultation bilaterally Cardiovascular: Rate/Rhythm: regular rate and regular rhythm Heart Sounds: no gallop, no murmur and no cardiac rub Vessels: no JVD Extremities: no calf tenderness and no edema Gastrointestinal (Abdomen): normal bowel sounds, soft, nontender, no hepatosplenomegaly Musculoskeletal: Extremities: no cyanosis Skin: no rashes, warm and dry Neurologic: alert, oriented x 3 PERRL, EOMI no facial palsy no dysarthria or aphasia ? mild LUE pronator drift Psychiatric: Orientation: alert and oriented x 3 Results & Data Results & Data ([facility]) Vital Signs (Past 12 Hours) Vital Signs Temp Pulse Pulse Resp BP Pulse Ox 06/18/20 19:41 36.8 C 57 L 18 153/79 H 96 06/18/20 15:55 36.9 C 53 L 18 116/65 96 06/18/20 15:00 55 L 06/18/20 11:00 36.7 C 54 L 19 153/68 H 94 Laboratory Results 06/18/20 07:51 06/18/20 07:51
[2020-06-19 06:35] LABS: Hematocrit (blood only) 44.3 % (42-52); Hemoglobin 15.7 g/dL (14.0-18.0); Mean Corpuscular Hemoglobin 31.6 pg (25-34); Mean Corpuscular Hgb Conc 35.4 g/dL (32-36); Mean Corpuscular Volume 89.1 fL (80-100); Mean Platelet Volume 10.7 fL (7.4-10.4); Platelet Count 137 K/uL (130-400); RDW Coefficient of Variation 14.6 % (11.5-14.5); RDW Standard Deviation 47.5 fL (36.4-46.3); Red Blood Count 4.97 M/uL (4.7-6.1); White Blood Count 8.78 K/uL (4.8-10.8)
[2020-06-19 07:01] LABS: BUN Creatinine Ratio 20.7 (10-20); Calcium 9.6 mg/dl (8.5-10.1); Est GFR (African American) 54.5; Potassium 4.8 mmol/L (3.5-5.1)
[2020-06-19] MEDS: FLUOXETINE HCL 20 MG CAP PO SCH (07:41)
[2020-06-19] MEDS: GABAPENTIN 600 MG TAB PO SCH ×3 (07:41→20:45)
[2020-06-19] MEDS: ASPIRIN 81 MG ECTAB PO SCH (07:41)
[2020-06-19] MEDS: NICOTINE 21 MG/24 HR TDSY TD SCH (07:41)
[2020-06-19] MEDS: lisinopriL 10 MG TAB PO SCH (07:42)
[2020-06-19] MEDS: ENOXAPARIN INJ 40 MG/0.4 ML SYR SQ SCH (07:42)
[2020-06-19] MEDS: CLOPIDOGREL BISULFATE 75 MG TAB PO SCH (07:42)
[2020-06-19] MEDS: AMLODIPINE BESYLATE 5 MG TAB PO SCH (07:42)
[2020-06-19] MEDS: METOPROLOL SUCC 50MG EXT REL TAB PO SCH (07:42)
[2020-06-19] MEDS: INSULIN ASPART 100 UNITS/ML 3 ML PEN SC SCH ×4 (07:48→20:33)
[2020-06-19 08:33] LABS: Estimated Average Glucose 105 mg/dl; Hemoglobin A1C 5.3 % (4.5-5.6)
--- NOTE | 2020-06-19 09:47 | Consultation ---
Date of Consultation June 19, 2020 Assessment & Plan (1) Stenosis of right internal carotid artery with cerebral infarction: Pt with subacute R CVA and severe stenosis of R ICA per CTA neck 03/2020. Pt discussed with Dr Santiago, recommends pt have a new CTA neck and tentatively planning R CEA for later this week. This was discussed with pt as well. Pt is agreeable. Patient was seen, examined, and chart reviewed. Agree with exam and treatment plan of the Vascular PA. Present on Admission?: Yes History of Present Illness Reason for Consultation: R ICA stenosis with CVA Attending Physician: Vinh Ochoa MD History of Present Illness 49 yo m with hx of HTN, CAD, DMII, and hx of CVA in March 2020, seen in consultation today for R ICA stenosis in association with new subacute R hemispheric CVA. Pt states he had some L arm weakness in 03/2020 and this had improved considerably over past 3 months. States he noted L leg weakness and falling for almost a week prior to this admission. Pt denies amaurosis, facial droop, speech difficulty, any right sided weakness, numbness, palpitations, abd pain, chest pain, SOB, N/V, recent illness, fever, other complaints. CTA neck in 03/2020 demonstrated [id number] stenosis of R ICA. Allergies Allergy/AdvReac Type Severity Reaction Status Date / Time No Known Allergies Allergy Verified 06/15/20 14:43 Home Medications Home Medications Medication Instructions Recorded Confirmed Type aspirin 81 mg PO QAM #17 tab 03/22/20 06/15/20 Rx atorvastatin 20 mg PO QAM #30 tab 03/22/20 06/15/20 Rx clopidogrel 75 mg PO QAM #30 tab 03/22/20 06/15/20 Rx fluoxetine 40 mg PO QAM 06/05/20 06/15/20 History metformin 500 mg PO BID 06/05/20 06/15/20 History metoprolol succinate 50 mg PO QAM 06/05/20 06/15/20 History trazodone 100 mg PO HS 06/05/20 06/15/20 History amlodipine 5 mg PO DAILY PRN 06/15/20 06/15/20 History gabapentin 300 mg PO TID 06/15/20 06/15/20 History lisinopril 30 mg PO DAILY 06/15/20 06/15/20 History Patient History Medical History CAD (coronary artery disease) 2014 - NSTEMI s/p BRUCE to RCA Carotid stenosis, bilateral Depression DM type 2 (diabetes mellitus, type 2) History of cerebrovascular accident (Acute) Hypertension (Chronic) Stenosis of right internal carotid artery with cerebral infarction Stroke Surgical History S/P drug eluting coronary stent placement Family History Mother , age 68 from metastatic lung cancer Lung cancer Father No problems noted. 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[employer], 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 Feels Safe at Home: Yes Review of Systems Review of Systems: All systems reviewed & are unremarkable except as noted in HPI & below Physical Exam Constitutional: WD/WN, vitals as above healthy appearing and cooperative; + uncomfortable and not in distress Eyes: PERRL, conjunctivae normal, anicteric sclerae ENMT: external ear and nose normal, oropharynx normal Ears: no hearing impairment Neck: normal visual inspection Respiratory: normal respiratory effort Auscultation: lungs clear to auscultation bilaterally and + diminished lung sounds Cardiovascular: Rate/Rhythm: regular rate and regular rhythm Vessels: femoral pulses present, brachial pulses present and radial pulses present; + abnormal peripheral pulses, + posterior tibial pulses abnormal (nonpalpable) and + dorsalis pedis pulses abnormal (nonpalpable) Extremities: normal capillary refill; no edema Gastrointestinal (Abdomen): normal bowel sounds, soft, nontender, no hepatosplenomegaly Musculoskeletal: Extremities: extremities normal to inspection and + abnormal strength (LUE and LLE 4/5); no cyanosis Skin: no rashes, warm and dry Neurologic: moves all extremities and awake; not confused Speech / Cognition: + abnormal speech (slow) Psychiatric: A+Ox3, euthymic affect Results & Data Vital Signs (Past 12 Hours) Vital Signs Temp Pulse Pulse Pulse Resp BP BP 06/19/20 08:13 61 06/19/20 08:00 47 L 06/19/20 07:41 36.4 C L 48 L 19 131/71 06/19/20 03:07 36.4 C L 48 L 18 99/63 L 06/18/20 23:58 36.5 C 47 L 18 118/66 06/18/20 23:20 55 L Pulse Ox 06/19/20 08:13 06/19/20 08:00 06/19/20 07:41 94 06/19/20 03:07 94 06/18/20 23:58 93 06/18/20 23:20
[2020-06-19] MEDS ORDERED: OPTIRAY 320 125ml IV ONE (09:55)
--- NOTE | 2020-06-19 10:23 | CT Scan Report ---
CT angio neck wo/w con HISTORY: 49 years-old Male ICA stenosis with CVA L up study in a patient with stenosis of the sales intern al carotid arteries COMPARISON: CTA of the neck 03/19/2020 TECHNIQUE: CTA of the neck was obtained both with and without the use of 119 mL Optiray 320. 3-D abigail nal and sagittal MIPS were obtained from the axial data set and were submitted for review. All measur ements were obtained according to NASCET criteria. A dose lowering technique was used consistent with the principals of TALIB. FINDINGS: CTA: There is at least moderate mixed plaque of the left-sided thoracic aortic arch and proximal great ves sels with aberrant right subclavian artery. The imaged bilateral subclavian arteries appear patent. T he bilateral common carotid arteries are also patent. There is severe mixed plaque of the bilateral c arotid bulbs. Progressively worsened stenosis on the right results in high-grade stenosis of greater than 90% (image 198 series 7). 60% stenosis on the left (image 204 series 7) is unchanged. Calcified plaque of the cavernous and supraclinoid segments without high-grade stenosis. Codominant vertebral arteries are patent. The basilar and posterior cerebral arteries are also patent . CT NECK: The lung apices are clear without pneumothorax. No prevertebral soft tissue swelling. Unremarkable th yroid. Patent airway. The imaged intracranial structures are unremarkable. Bones appear intact. Mild to moderate disc space narrowing with spondylitic spurring and C5-C6. Mastoid air cells are clear. IMPRESSION: 1. Progressively worsened stenosis at the origin of the right internal carotid artery, now greater th an 90%. 2. Unchanged 60% stenosis at the origin of the left internal carotid artery. 3. 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 ACT 112: Negative or not required by law. The above report was generated using voice recognition software. It may contain grammatical, syntax o r spelling errors. Electronically signed by: Parag Jo M.D. 06/19/2020 10:21 AM
--- NOTE | 2020-06-19 12:10 | Psychiatric Consultation ---
Date of Consultation June 19, 2020 Impression / Recommendations Impression Dr. Darcy Quiroga was directly involved in review and discussion of the patient's case and participated in medical decision making regarding treatment recommendations. RECOMMENDATIONS: 06/19 - Psychiatric consultation requested to evaluate patient for depression. - Case discussed with patient's outpatient psychiatrist, Dr. Robert, who reports seeing the patient for an initial evaluation on 05/17/2020 with recommendation to titrate fluoxetine from 20mg to 40mg to target continued depressive symptoms. It has only been 4 weeks since that dose adjustment and patient is still on a mid-range dose of the medication, meaning he may not yet be experiencing full benefits of the medication adjustment. - Discussed potential drug interaction between fluoxetine (SSRIs) and clopidogrel with hospitalist, and risk of reducing the efficacy of clopidogrel. It seems mirtazapine may have the fewest interactions in this regard and could be considered. Will hold fluoxetine until this can be discussed further with the patient. - Unfortunately, patient has a considerable amount of external factors contributing to his anxiety and depression. He would benefit from some additional outpatient support. Will explore options for case management, either through his insurance or through the [facility]. These supports may also be able to assist with referral for an individual therapist. - Pt denies SI/HI, SIB, A/V hallucinations or other signs of psychosis. No indication at this time for inpatient psychiatric treatment. Pt appears psychiatrically stable for transfer to an acute inpatient physical rehab facility if this continues to be the discharge plan. - Please reach out to our service with any additional questions or updates. Psych History Identifying Data 49-year-old male admitted medically on 06/15/2020 after presenting to the ED with reports of falls and leg weakness. Psychiatric consultation was requested by hospitalist team to evaluate patient for depression. Chief Complaint "I'm still having some of the anxiety and the mind racing." History of Present Illness Deyvi Bansal is a 49-year-old male admitted medically on 06/15/2020 after presenting to the ED with reports of falls and leg weakness. Pt has a PMH of HTN, T2DM, CAD, CVA, bilateral carotid stenosis, anxiety/depression, and has been presenting to the ED with hypertension and there is concern for episodes of TIAs recently. Psychiatric consultation was requested to evaluate patient for depression, as patient reports feeling trial of fluoxetine has been ineffective thus far. Pt was cooperative with psychiatric assessment. Pt reports continued anxiety and racing thoughts that patient believes are related to continued worries about external stressors. Pt states "every once in a while I'll get into the ugly thoughts. You know, 'I have no money, I have no job, I have no family, I have no life'." Pt reports ability to recognize that most of his anxiety and depressive symptoms stem from external factors and is hoping to work his way through these difficulties. Pt continues to receive assistance through [facility], but states he recently lost his employment at [employer] which has been difficult. Pt does admit to seeing his outpatient psychiatrist, Dr. Jacqueline Robert, on one occasion a month ago - where decision was made to titrate fluoxetine to 40mg daily. Although patient is able to recognize that SSRIs generally take 4-6 weeks before efficacy can truly be observed, he does not yet feel that he has noticed a significant difference with the trial of fluoxetine. Pt is agreeable with discussing medication options. He is also open to referrals for continued outpatient supports, such as therapy and case management. Pt denies SI/HI, SIB, A/V hallucinations, and other signs of psychosis. He denies additional needs from our service at this time. Past Psychiatric History Current Psychiatric Diagnosis: Depression and Anxiety Outpatient Services: Psychiatrist - Dr. Jacqueline Robert Previous Psych Admissions: Denied History of Previous Suicide Attempt: No Past Medication Trials: Fluoxetine initiated by neurology during 03/2020 hospital admission. Allergies Allergy/AdvReac Type Severity Reaction Status Date / Time No Known Allergies Allergy Verified 06/15/20 14:43 Home Medications Home Medications Medication Instructions Recorded Confirmed Type aspirin 81 mg PO QAM #17 tab 03/22/20 06/15/20 Rx atorvastatin 20 mg PO QAM #30 tab 03/22/20 06/15/20 Rx clopidogrel 75 mg PO QAM #30 tab 03/22/20 06/15/20 Rx fluoxetine 40 mg PO QAM 06/05/20 06/15/20 History metformin 500 mg PO BID 06/05/20 06/15/20 History metoprolol succinate 50 mg PO QAM 06/05/20 06/15/20 History trazodone 100 mg PO HS 06/05/20 06/15/20 History amlodipine 5 mg PO DAILY PRN 06/15/20 06/15/20 History gabapentin 300 mg PO TID 06/15/20 06/15/20 History lisinopril 30 mg PO DAILY 06/15/20 06/15/20 History Family History Pt reports mother had anxiety, suffered with occasional panic attacks. Denies other known psychiatric conditions, denies known family history of suicide attempts or completion. Substance Abuse History Pt admits to both smoking and chewing tobacco. He reports alcohol use roughly 1 day per week, generally drinking a mix of four drinks of either beer or liquor. Pt denies illicit substance use. Pt states he is aware that alcohol use is not tolerated in the Housing Transition program. Personal History Living Arrangements: [facility] Highest Grade Completed: College (BS in [employer] from [employer] Employment Status: Unemployed Marital Status: Single Number Of Children: Denied Beliefs That Will Affect Care: None History of Legal Problems: Denied Psychological Trauma History Comment: History of significant medical issues, required 4 months of hospitalization/rehab, continued medical issues Patient History Medical History CAD (coronary artery disease) 2014 - NSTEMI s/p BRUCE to RCA Carotid stenosis, bilateral Depression DM type 2 (diabetes mellitus, type 2) History of cerebrovascular accident (Acute) Hypertension (Chronic) Stenosis of right internal carotid artery with cerebral infarction Stroke Surgical History S/P drug eluting coronary stent placement Family History Mother , age 68 from metastatic lung cancer Lung cancer Father No problems noted. 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 Pt is appropriately dressed in hospital gown and shorts. He appears older than stated age, disheveled, and is malodorous. Long justin hair and johnson appear unkept. Hygiene is poor. Level of hydration appears adequate. Eye Contact: good eye contact Motor Behavior: no abnormal motor movements (observed while laying in bed) Speech: normal rate/rhythm/volume of speech Affect: + blunted affect and + constricted affect Mood: + depressed mood and + anxious mood Thought Process: goal directed thought process and clear/coherent thought process Thought Content: reality based without delusions and + hopelessness (intermittently ); not paranoid Suicidal Thoughts: denies suicidal thoughts, denies suicidal plan and denies suicidal intent Homicidal Thoughts: denies homicidal thoughts Hallucinations: no auditory hallucinations and no visual hallucinations Cognition: recent memory grossly intact, attention grossly intact and language grossly intact Estimated Intelligence: consistent with education level Insight: + fair insight Judgement: + fair judgement Vital Signs (Past 24 Hours): Last Vital Signs Temp 36.5 C 06/19/20 10:53 Pulse 49 L 06/19/20 10:53 Resp 18 06/19/20 10:53 BP 131/64 06/19/20 10:53 Pulse Ox 95 06/19/20 10:53 Review of Systems Constitutional: denied Cardiovascular: denied Respiratory: denied Gastrointestinal: denied Neurological: reports hand and leg pain related to neuropathy, foot and ankle numbness due to the same Psychiatric: [denies symptoms other than stated above] Total of at least 10 systems reviewed, pertinent positives as above and in HPI. Results & Data (PSY) Medications Administered Acetaminophen (Tylenol) 500 mg PO Q4H PRN PRN Reason: Pain or Fever Stop: 07/15/20 19:24 Last Admin: 06/19/20 02:41 Dose: 500 mg Documented by: [id number] Amlodipine Besylate (Norvasc) 5 mg PO [facility] Stop: 07/17/20 08:59 Last Admin: 06/19/20 07:42 Dose: 5 mg Documented by: [id number] Admin: 06/18/20 08:10 Dose: 5 mg Documented by: [id number] Admin: 06/17/20 08:27 Dose: 5 mg Documented by: [id number] Aspirin (Ecotrin Ectab) [facility] Stop: 07/16/20 08:59 Last Admin: 06/19/20 07:41 Dose: 81 mg Documented by: [id number] Admin: 06/18/20 08:10 Dose: 81 mg Documented by: [id number] Admin: 06/17/20 08:27 Dose: 81 mg Documented by: [id number] Admin: 06/16/20 07:30 Dose: 81 mg Documented by: [id number] Atorvastatin Calcium (Lipitor) 80 mg PO [facility] Stop: 07/16/20 20:59 Last Admin: 06/18/20 20:05 Dose: 80 mg Documented by: [id number] Admin: 06/17/20 19:55 Dose: 80 mg Documented by: [id number] Admin: 06/16/20 20:11 Dose: 80 mg Documented by: [id number] Clopidogrel Bisulfate (Plavix) 75 mg PO [facility] Stop: 07/16/20 08:59 Last Admin: 06/19/20 07:42 Dose: 75 mg Documented by: [id number] Admin: 06/18/20 08:11 Dose: 75 mg Documented by: [id number] Admin: 06/17/20 08:26 Dose: 75 mg Documented by: [id number] Admin: 06/16/20 07:29 Dose: 75 mg Documented by: [id number] Enoxaparin Sodium (Lovenox) 40 mg SQ [facility] Stop: 07/17/20 08:59 Last Admin: 06/19/20 07:42 Dose: 40 mg Documented by: [id number] Admin: 06/18/20 08:11 Dose: 40 mg Documented by: [id number] Admin: 06/17/20 08:27 Dose: 40 mg Documented by: [id number] Fluoxetine HCl (Prozac) 40 mg PO [facility] Stop: 07/16/20 08:59 Last Admin: 06/19/20 07:41 Dose: Not Given Documented by: [id number] Admin: 06/18/20 08:11 Dose: 40 mg Documented by: [id number] Admin: 06/17/20 08:27 Dose: 40 mg Documented by: [id number] Admin: 06/16/20 07:29 Dose: 40 mg Documented by: [id number] Gabapentin (Neurontin) 600 mg PO TID [facility] Stop: 07/16/20 20:59 Last Admin: 06/19/20 07:41 Dose: 600 mg Documented by: [id number] Admin: 06/18/20 20:05 Dose: 600 mg Documented by: [id number] Admin: 06/18/20 14:45 Dose: 600 mg Documented by: [id number] Admin: 06/18/20 08:10 Dose: 600 mg Documented by: [id number] Admin: 06/17/20 19:55 Dose: 600 mg Documented by: [id number] Admin: 06/17/20 14:28 Dose: 600 mg Documented by: [id number] Admin: 06/17/20 08:27 Dose: 600 mg Documented by: [id number] Admin: 06/16/20 20:11 Dose: 600 mg Documented by: [id number] Insulin Aspart (Novolog Flexpen) 0 units SC ACHS [facility] Stop: 07/15/20 20:59 Last Admin: 06/19/20 07:48 Dose: 3 units Documented by: [id number] Cosigned by: [id number] Admin: 06/18/20 20:17 Dose: Not Given Documented by: [id number] Admin: 06/18/20 17:05 Dose: 6 units Documented by: [id number] Cosigned by: [id number] Admin: 06/18/20 12:15 Dose: 4 units Documented by: [id number] Cosigned by: [id number] Admin: 06/18/20 08:12 Dose: 4 units Documented by: [id number] Cosigned by: [id number] Admin: 06/17/20 20:57 Dose: Not Given Documented by: [id number] Admin: 06/17/20 17:12 Dose: 2 units Documented by: [id number] Cosigned by: [id number] Admin: 06/17/20 12:20 Dose: 3 units Documented by: [id number] Cosigned by: [id number] Admin: 06/17/20 08:25 Dose: 4 units Documented by: [id number] Cosigned by: [id number] Admin: 06/16/20 21:11 Dose: 2 units Documented by: [id number] Cosigned by: [id number] Admin: 06/16/20 17:21 Dose: 4 units Documented by: [id number] Cosigned by: [id number] Admin: 06/16/20 12:40 Dose: 4 units Documented by: [id number] Cosigned by: [id number] Admin: 06/16/20 08:03 Dose: Not Given Documented by: [id number] Cosigned by: [id number] Admin: 06/15/20 20:40 Dose: 1 units Documented by: [id number] Cosigned by: [id number] Lisinopril (Zestril) 30 mg PO DAILY [facility] Stop: 07/17/20 08:59 Last Admin: 06/19/20 07:42 Dose: 30 mg Documented by: [id number] Admin: 06/18/20 08:10 Dose: 30 mg Documented by: [id number] Admin: 06/17/20 08:26 Dose: 30 mg Documented by: [id number] Metoprolol Succinate (Toprol Xl) 50 mg PO [facility] Stop: 07/16/20 08:59 Last Admin: 06/19/20 07:42 Dose: 50 mg Documented by: [id number] Admin: 06/18/20 08:10 Dose: 50 mg Documented by: [id number] Admin: 06/17/20 08:27 Dose: 50 mg Documented by: [id number] Admin: 06/16/20 07:28 Dose: 50 mg Documented by: [id number] Miscellaneous (Remove Nicoderm Patch) 1 ea N/A DAILY@[id number] [facility] Stop: 07/17/20 08:58 Last Admin: 06/19/20 07:43 Dose: 1 ea Documented by: [id number] Admin: 06/18/20 08:11 Dose: 1 ea Documented by: [id number] Admin: 06/17/20 08:34 Dose: 1 ea Documented by: [id number] Nicotine (Nicoderm Cq) 21 mg TD [facility] Stop: 07/16/20 16:59 Last Admin: 06/19/20 07:41 Dose: 21 mg Documented by: [id number] Admin: 06/18/20 08:11 Dose: 21 mg Documented by: [id number] Admin: 06/17/20 08:27 Dose: 21 mg Documented by: [id number] Admin: 06/16/20 17:17 Dose: 21 mg Documented by: [id number] Oxycodone/Acetaminophen (Percocet 5mg/325mg) 1 tab PO Q4H PRN PRN Reason: Pain Stop: 06/30/20 16:43 Last Admin: 06/18/20 21:28 Dose: 1 tab Documented by: [id number] Admin: 06/18/20 11:20 Dose: 1 tab Documented by: [id number] Admin: 06/17/20 20:07 Dose: 1 tab Documented by: [id number] Admin: 06/16/20 22:15 Dose: 1 tab Documented by: [id number] Trazodone HCl (Desyrel) 100 mg PO HS [facility] Stop: 07/15/20 20:59 Last Admin: 06/18/20 20:05 Dose: 100 mg Documented by: [id number] Admin: 06/17/20 19:55 Dose: 100 mg Documented by: [id number] Admin: 06/16/20 20:10 Dose: 100 mg Documented by: [id number] Admin: 06/15/20 22:03 Dose: 100 mg Documented by: [id number] Coding Level of Care Code 55444 [facility] Intl Hosp Care Lvl 3
[2020-06-19] MEDS: OXYCODONE/ACETAMINOPHEN 5mg/325mg TAB PO PRN ×2 (12:51→20:47)
--- NOTE | 2020-06-19 14:50 | Neurology Progress Note ---
Date of Service June 19, 2020 Assessment & Plan (1) Chronic ischemic right MCA stroke: Deyvi Bansal is a 49 yo man w/ PMH of HTN, HLD, DM, tobacco abuse, h/o alcohol abuse and known bilateral carotid artery stenosis who p/t [facility] after acute worsening of LLE weakness, found to have a subacute infarct within/nearby the prior R MCA stroke bed. Symptom localization: posterior right MCA territory Stroke mechanism: vessel to vessel embolus vs cardioembolic Stroke WorkUp: - CT head: hypodensities within the right frontal/parietal lobes - CTA head/neck (from 03/2020): moderate stenosis of the R ICA, mild stenosis of the L ICA, no other LVO, high-grade stenosis or aneurysm noted. Repeat CTA neck shows high grade R ICA stenosis with stable L ICA stenosis. - MRI brain: subacute infarct in the old right posterior parietal lobe infarct, multiple chronic infarcts in right hemispheric territory, +moderate SVID - TTE: EF 45-50%, severe LVH, moderate hypokinesis/akinesis of infero-posterior jenkins, grade I diastolic dysfunction, no valvular pathology - Telemetry: pending - A1c: 5.3 - FLP: 66 - Troponin, TSH: negative, WNL - Hypercoagulable labs: Pending (Cardiolipin Ab, Protein C and S, ATIII, FV Leiden, APC resistance) Stroke Management: - Acute treatment: ASA - Continuous cardiac monitoring, will consider Holter monitor as outpatient if telemetry here unrevealing - Vitals, Neurochecks, NIHSS per unit routine - BP parameters: SBP CAP 180, restart home anti-hypertensives for permissive HTN, IV Labetalol PRN - Complete ischemic stroke workup with TTE without bubble, A1c, fasting lipid panel, hypercoagulability panel - Consult speech, PT, OT for supportive management - Will drapery counselor concerning stroke education, smoking cessation, healthy diet, physical activity, weight loss - Follow up with PCP for assistance with outpatient goals (BP <130/80, LDL <70, A1c <7) - Follow up in neurology clinic in 6-8 weeks (can be with BARB Lucero) - Seen by vascular surgery, will go for R CEA later this week (06/22/20) Secondary Stroke Prevention: - Antiplatelet: continue ASA 81mg po daily/plavix 75mg daily for now - Anticoagulation: Not indicated at this time - Statin: Atorvastatin 40mg daily HTN: - BP parameters, as above - Restart home medications with goal of lowering BP to normotension over next 3- 4 days FEN/GI: - Diet: Cardiac HH diet and PO meds given absence of bulbar signs or symptoms - Monitor lytes and replete PRN Glucose Control: - Sliding scale insulin and accuchecks per primary team to avoid hyperglycemia Thank you for this interesting consult. Plan of care was discussed with primary team. Please call with any questions. We will follow along peripherally. (2) CAD (coronary artery disease): (3) DM type 2 (diabetes mellitus, type 2): (4) Carotid stenosis, bilateral: (5) History of cerebrovascular accident: (6) Hypertension: (7) Smoker: Admission and Anticipated Discharge Date Admission Date: June 16, 2020 Subjective NAEs overnight. No new neurological symptoms. Endorses feeling sadness, has been seen by psychiatry today. Review of Systems Review of Systems: 14 point review of systems completed and negative except as in HPI. Results & Data ([facility]) Vital Signs (Past 12 Hours) Vital Signs Temp Pulse Pulse Pulse Resp BP Pulse Ox 06/19/20 10:53 36.5 C 49 L 18 131/64 95 06/19/20 08:13 61 06/19/20 08:00 47 L 06/19/20 07:41 36.4 C L 48 L 19 131/71 94 06/19/20 03:07 36.4 C L 48 L 18 99/63 L 94 Exam (Neuro) Physical Exam: General Exam: GEN: NAD, sitting down in examination bed. HEENT: No conjunctival injection, no rhinorrhea CV: RRR on monitor, no significant edema. PULM: Nonlabored respirations on room air. Neuro Exam: MS: Awake and Alert. Oriented to person, place, and date. Speech fluent and appropriate without dysarthria or paraphasic errors. Language intact including naming, comprehension, repetition. Cognition and memory grossly intact. Attention intact. No neglect. CN: Visual garcia full, + blink to threat bilaterally. No extinction to double simultaneous stimuli. Normal fundoscopic exam. PERRLA OU. EOMI without nystagmus. Facial sensation intact to LT. Facial muscles full and symmetric. Hearing intact to finger rub bilaterally. Uvula midline with symmetric palatal elevation. Shoulder shrug normal. Tongue midline. MOTOR: Normal bulk and tone. Subtle LUE pronator drift. BUE strength 5/5 at deltoids, biceps, triceps, wrist flexors and extensors, and finger flexors bilaterally. BLE strength 5/5 at iliopsoas, hamstrings, quadriceps, tibialis anterior, and gastrocnemius bilaterally. REFLEXES: 1+ at biceps, triceps, brachioradialis, trace patella, and absent Achilles bilaterally. Flexor plantar responses bilaterally. SENSORY: Intact to LT/vibration throughout, no extinction to double simultaneous stimuli. COORDINATION: No dysmetria or ataxia on [id number] bilaterally. Normal Brendon bilaterally. GAIT: Deferred due to physical status. NIH STROKE SCALE 1A. Level of Consciousness (0-3) = 0 1B. LOC Questions (0-2) = 0 1C. LOC Commands (0-2) = 0 2. Best Horizontal Gaze (0-2) = 0 3. Visual Garcia (0-3) = 0 4. Facial Palsy (0-3) = 0 5. Motor Arm Right (0-4) = 0 Left (0-4) = 0 6. Motor Leg Right (0-4) = 0 Left (0-4) = 0 7. Limb Ataxia (0-2) = 0 8. Sensory (0-2) = 0 9. Best Language (0-3) = 0 10. Dysarthria (0-2) = 0 11. Extinction and Inattention (0-2) = 0 NIHSS TOTAL = 0 PG Care Time/CCT Total # of Minutes Spent Total Time Spent with Patient: Total time spent is greater than 50% in coordination of care (as documented) at patient's floor/unit and/or counseling patient: Coding Level of Care Code 17624 Subseq Hosp Care Lvl 3 Diagnoses Chronic ischemic right MCA stroke I69.30 CAD (coronary artery disease) I25.10 DM type 2 (diabetes mellitus, type 2) E11.9 Carotid stenosis, bilateral I65.23 History of cerebrovascular accident Z86.73 Hypertension I10 Hypertension type: essential hypertension Smoker F17.200 (1) Hypertension Hypertension type: essential hypertension Qualified Code(s): I10 - Essential (primary) hypertension
[2020-06-19] MEDS: TRAZODONE HCL 100 MG TAB PO SCH (20:45)
[2020-06-19] MEDS: ATORVASTATIN 40 MG TAB PO SCH (20:45)
--- NOTE | 2020-06-19 23:11 | Hospitalist Progress Note ---
Date of Service June 19, 2020 Assessment & Plan (1) Stroke: Prior right MCA ischemic strokes. Presented with LUE weakness. CT demonstrated multifocal old infarcts right MCA territory as well as small vessel ischemic disease. MRI demonstrated multiple old right hemispheric MCA infarcts as well as subacute infarct right posterior parietal lobe. MRI also demonstrated: "... ring enhancement surrounding the area of restricted water diffusion within the right posterior parietal lobe. There is also postcontrast enhancement in the region of the suspected right frontal lobe infarct.. The enhancement is likely secondary to subacute postinfarct enhancement. A follow-up MRI in 3 months is recommended." Echo in March did not show any cardiac thrombi or evidence of right to left shunt with bubble study. CTA in March demonstrated 75% stenosis right ICA and 60% stenosis left ICA. Cardiac rhythm has been sinus. Neuro consulted. Dual antiplatelet therapy with aspirin + clopidogrel recommended. Work-up for hypercoagulable conditions ordered. Repeat echo; no need to repeat bubble study. Vascular Surgery regarding carotid disease as discussed below. PT / OT / [employer]. LDL-c = 66. Continue high-intensity statin. (2) Carotid stenosis, bilateral: CTA in March demonstrated 75% stenosis right ICA and 60% stenosis left ICA. Right hemispheric strokes appear to be embolic in nature. Vascular Surgery consulted. Repeat CTA today showed > 90% stenosis right ICA, 60% stenosis left ICA. Right carotid endarterectomy recommended. (3) CAD (coronary artery disease): No anginal symptoms. Continue aspirin, clopidogrel, metoprolol, lisinopril, statin. (4) Hypertensive urgency: BP 221/126 day of presentation. BP's improved. Avoid excessive lowering of blood pressure in setting of acute ischemic stroke. Continue metoprolol, amlodipine, lisinopril. (5) BRUNA (acute kidney injury): Serum creatinine as high as 1.7. BRUNA, possible secondary to hypertensive urgency. Creatinine today = 1.68. Follow. (6) DM type 2 (diabetes mellitus, type 2): Check Hgb A1c. (7) Depression: Fluoxetine not effective. Denies suicidal thoughts. Psychiatry consulted. (8) Smoker: Smoking cessation counseling. (9) DVT prophylaxis: SQ enoxaparin. Ambulate. (10) Discharge planning issues: Inpatient rehab recommended. Family Medicine follow-up with Dr. Gaspar. Admission and Anticipated Discharge Date Admission Date: June 16, 2020 Subjective Recheck for stroke and other problems. Patient seen in their room around 1410. No headache. No new neuro symptoms; persistent clumsiness of left hand Seen by Psychiatry. Review of Systems: Constitutional- no fever. Cardiac- no chest pain. Pulmonary- no cough or SOB. GI- no nausea, vomiting, diarrhea, melena, hematochezia. - no urinary symptoms. Otherwise, as noted above. Physical Exam Constitutional: no acute distress Respiratory: no respiratory distress Auscultation: lungs clear to auscultation bilaterally Cardiovascular: Rate/Rhythm: regular rate and regular rhythm Heart Sounds: no gallop, no murmur and no cardiac rub Vessels: no JVD Extremities: no calf tenderness and no edema Gastrointestinal (Abdomen): normal bowel sounds, soft, nontender, no hepatosplenomegaly Musculoskeletal: Extremities: no cyanosis Skin: no rashes, warm and dry Neurologic: PERRL, EOMI no facial palsy no dysarthria or aphasia motor upper and lower extremities essentially 5/5 Psychiatric: Orientation: alert and oriented x 3 Results & Data Results & Data ([facility]) Vital Signs (Past 12 Hours) Vital Signs Temp Pulse Resp BP Pulse Ox 06/19/20 23:03 36.8 C 57 L 18 108/67 96 06/19/20 19:14 36.6 C 53 L 20 119/70 97 06/19/20 15:44 36.4 C L 55 L 18 153/72 H 96 Laboratory Results Laboratory Results - last 24 hr 06/19/20 06/19/20 06/19/20 06:15 06:15 06:15 WBC RBC Hgb Hct MCV MCH MCHC RDW Std Deviation RDW Coeff of Dione Plt Count MPV Lupus Anticoagulant Pending Lupus Anticoag aPTT Pending Dil Morgan Viper Venom Pending dRVVT Mix Interpret Pending Protein C Activity Pending APC Resistance Pending Factor V Leiden Mutat Pending Factor V Leiden Interp Pending Sodium 138 Potassium 4.8 Chloride 110 H Carbon Dioxide 23 Anion Gap 5.0 BUN 35 H Creatinine 1.68 H Est Cr Clr Drug Dosing 48.0 Est GFR ( Amer) 54.5 Est GFR (Non-Af Amer) 47.0 BUN/Creatinine Ratio 20.7 H Glucose 105 H POC Glucose Estimat Average Glucose 105 Hemoglobin A1c 5.3 Hgb A1c Pathologist Com Calcium 9.6 Triglycerides 110 Cholesterol 127 LDL Cholesterol, Calc 66 VLDL Cholesterol, Calc 22 HDL Cholesterol 39 Cholesterol/HDL Ratio 3 06/19/20 06/19/20 06/19/20 06:15 07:32 11:20 WBC 8.78 RBC 4.97 Hgb 15.7 Hct 44.3 MCV 89.1 MCH 31.6 MCHC 35.4 RDW Std Deviation 47.5 H RDW Coeff of Dione 14.6 H Plt Count 137 MPV 10.7 H Lupus Anticoagulant Lupus Anticoag aPTT Dil Morgan Viper Venom dRVVT Mix Interpret Protein C Activity APC Resistance Factor V Leiden Mutat Factor V Leiden Interp Sodium Potassium Chloride Carbon Dioxide Anion Gap BUN Creatinine Est Cr Clr Drug Dosing Est GFR ( Amer) Est GFR (Non-Af Amer) BUN/Creatinine Ratio Glucose POC Glucose 95 98 Estimat Average Glucose Hemoglobin A1c Hgb A1c Pathologist Com Calcium Triglycerides Cholesterol LDL Cholesterol, Calc VLDL Cholesterol, Calc HDL Cholesterol Cholesterol/HDL Ratio 06/19/20 06/19/20 16:29 20:23 WBC RBC Hgb Hct MCV MCH MCHC RDW Std Deviation RDW Coeff of Dione Plt Count MPV Lupus Anticoagulant Lupus Anticoag aPTT Dil Morgan Viper Venom dRVVT Mix Interpret Protein C Activity APC Resistance Factor V Leiden Mutat Factor V Leiden Interp Sodium Potassium Chloride Carbon Dioxide Anion Gap BUN Creatinine Est Cr Clr Drug Dosing Est GFR ( Amer) Est GFR (Non-Af Amer) BUN/Creatinine Ratio Glucose POC Glucose 110 H 121 H Estimat Average Glucose Hemoglobin A1c Hgb A1c Pathologist Com Calcium Triglycerides Cholesterol LDL Cholesterol, Calc VLDL Cholesterol, Calc HDL Cholesterol Cholesterol/HDL Ratio
[2020-06-20] MEDS: OXYCODONE/ACETAMINOPHEN 5mg/325mg TAB PO PRN ×2 (01:47→21:01)
[2020-06-20 07:23] LABS: BUN Creatinine Ratio 22.4 (10-20); Calcium 9.3 mg/dl (8.5-10.1); Est GFR (African American) 46.3
[2020-06-20] MEDS: ASPIRIN 81 MG ECTAB PO SCH (07:37)
[2020-06-20] MEDS: GABAPENTIN 600 MG TAB PO SCH ×3 (07:37→20:58)
[2020-06-20] MEDS: CLOPIDOGREL BISULFATE 75 MG TAB PO SCH (07:37)
[2020-06-20] MEDS: ENOXAPARIN INJ 40 MG/0.4 ML SYR SQ SCH (07:38)
[2020-06-20] MEDS: NICOTINE 21 MG/24 HR TDSY TD SCH (07:38)
[2020-06-20] MEDS: METOPROLOL SUCC 50MG EXT REL TAB PO SCH (07:39)
[2020-06-20] MEDS: AMLODIPINE BESYLATE 5 MG TAB PO SCH (07:39)
[2020-06-20] MEDS: SODIUM CHLORIDE 0.9% 1000ML 1,000 ML IV SCH ×2 (07:44→14:39)
[2020-06-20] MEDS: INSULIN ASPART 100 UNITS/ML 3 ML PEN SC SCH ×4 (08:27→20:31)
[2020-06-20] MEDS ORDERED: FLUOXETINE HCL 20 MG CAP PO SCH (09:00)
--- NOTE | 2020-06-20 09:52 | Psychiatric Progress Note ---
Date of Service June 20, 2020 Impression / Recommendations Impression Dr. Darcy Quiroga was directly involved in review and discussion of the patient's case and participated in medical decision making regarding treatment recommendations. RECOMMENDATIONS: 06/19 - Psychiatric consultation requested to evaluate patient for depression. - Case discussed with patient's outpatient psychiatrist, Dr. Robert, who reports seeing the patient for an initial evaluation on 05/17/2020 with recommendation to titrate fluoxetine from 20mg to 40mg to target continued depressive symptoms. It has only been 4 weeks since that dose adjustment and patient is still on a mid-range dose of the medication, meaning he may not yet be experiencing full benefits of the medication adjustment. - Discussed potential drug interaction between fluoxetine (SSRIs) and clopid ogrel with hospitalist, and risk of reducing the efficacy of clopidogrel. It seems mirtazapine may have the fewest interactions in this regard and could be considered. Will hold fluoxetine until this can be discussed further with the patient. - Unfortunately, patient has a considerable amount of external factors contributing to his anxiety and depression. He would benefit from some additional outpatient support. Will explore options for case management, either through his insurance or through [facility]. These supports may also be able to assist with referral for an individual therapist. - Pt denies SI/HI, SIB, A/V hallucinations or other signs of psychosis. No indication at this time for inpatient psychiatric treatment. Pt appears psychiatrically stable for transfer to an acute inpatient physical rehab facility if this continues to be the discharge plan. - Please reach out to our service with any additional questions or updates. 06/20 - Reviewed with patient interaction between fluoxetine and clopidogrel, with concern that fluoxetine in particular may reduce the efficacy of clopidogrel. Pt verbalized understanding of this information and is agreeable with trying an alternative antidepressant medication. - Reviewed that mirtazapine appears to have the least risk with regard to concern for bleeding risk and no documented interaction with clopidogrel. After reviewing risks, benefits, and potential side effects, patient verbalized he is agreeable with beginning this new medication. Ordered 15mg qHS starting this evening. Trazodone dose cut in half to 50mg and can be discontinued altogether if sleep remains stable. - Pt continues to deny SI or other significant mood concerns, and there continues to be no indication for inpatient psychiatric treatment. He remains psychiatrically stable for transfer to an acute inpatient physical rehab when medically cleared. Interval History Identifying Information 49-year-old male admitted medically on 06/15/2020 after presenting to the ED with reports of falls and leg weakness. Psychiatric consultation was requested by hospitalist team to evaluate patient for depression. Chief Complaint "Um, I'm fine. Hello." Review of Systems Notes Constitutional: reports fatigue Cardiovascular: denied Respiratory: denied Gastrointestinal: denied Neurological: denied Psychiatric: denies symptoms other than stated above Total of at least 10 systems reviewed, pertinent positives as above and in HPI. Subjective Subjective Patient's case was reviewed and discussed during morning report with supervising psychiatrist and psychiatric nurse liaison. Case discussed with hospitalist yesterday regarding interaction between clopidogrel and fluoxetine. Need to monitor for these concerns was documented in 03/2020 records when patient was initiated on fluoxetine by another consulting service, but given his continued presentations to the ED and ongoing medical concerns, risk assessment was being revisited. Fluoxetine was discontinued following this conversation yesterday, and patient is seen today to discuss alternative treatment options. Pt was initially asleep when this provider entered the room, though woke easily with verbal stimuli. Explanation of recommendation for alternative antidepressant medication was reviewed. Pt verbalized understanding and was agreeable with reviewing alternative agents. Mirtazapine was suggested, as there is evidence to suggest it is less likely to contribute to increased bleeding risk and no documented interaction with clopidogrel. Risks and potential side effects of the medication were discussed. Pt is agreeable with continuing to follow-up with Dr. Robert for outpatient psychotropic medication management. He was also updated that we are working to refer him for additional outpatient supports. He continues to deny SI or other significant mood concerns. Pt denied other needs from our service at this time. Procedures Performed Operation Date: 06/22/20 08:30 <No data on this case meets the specified criteria> Physical Exam Psychiatric Orientation: alert (though appearing sedated, as awoken from sleep), oriented x 3 and cooperative Apperance: appropriately dressed (wearing hospital gown) and + disheveled; + inappropriately groomed long hair and johnson continued to appear disheveled Eye Contact: + fair eye contact Motor Behavior: no abnormal motor movements (observed while laying in bed) Speech: normal rate/rhythm/volume of speech (offering somewhat brief responses to questions) Affect: + blunted affect (appearing sedated) Thought Process: goal directed thought process and clear/coherent thought process Thought Content: reality based without delusions Suicidal Thoughts: denies suicidal thoughts Homicidal Thoughts: denies homicidal thoughts Hallucinations: no auditory hallucinations and no visual hallucinations Cognition: attention grossly intact and language grossly intact Insight: + fair insight Judgement: + fair judgement Vital Signs (Past 24 Hours) Last Vital Signs Temp 36.4 C L 06/20/20 07:53 Pulse 53 L 06/20/20 07:53 Resp 18 06/20/20 07:53 BP 102/67 06/20/20 07:53 Pulse Ox 94 06/20/20 07:53 Results & Data ([facility]) Laboratory Results Laboratory Results - last 24 hr 06/19/20 06/19/20 06/19/20 06:15 11:20 16:29 Sodium Potassium Chloride Carbon Dioxide Anion Gap BUN Creatinine Est Cr Clr Drug Dosing Est GFR ( Amer) Est GFR (Non-Af Amer) BUN/Creatinine Ratio Glucose POC Glucose 98 110 H Hgb A1c Pathologist Com Calcium 06/19/20 06/20/20 06/20/20 20:23 06:42 07:35 Sodium 141 Potassium 5.0 Chloride 113 H Carbon Dioxide 22 Anion Gap 6.0 BUN 43 H Creatinine 1.92 H Est Cr Clr Drug Dosing 42.0 Est GFR ( Amer) 46.3 Est GFR (Non-Af Amer) 40.0 BUN/Creatinine Ratio 22.4 H Glucose 99 POC Glucose 121 H 104 H Hgb A1c Pathologist Com Calcium 9.3 Current Inpatient Medications Current Inpatient Medications: Current Inpatient Medications Acetaminophen (Tylenol) 500 mg PO Q4H PRN PRN Reason: Pain or Fever Stop: 07/15/20 19:24 Last Admin: 06/19/20 02:41 Dose: 500 mg Documented by: Amlodipine Besylate (Norvasc) 5 mg PO [facility] Stop: 07/17/20 08:59 Last Admin: 06/20/20 07:39 Dose: Not Given Documented by: Aspirin (Ecotrin Ectab) 81 mg PO [facility] Stop: 07/16/20 08:59 Last Admin: 06/20/20 07:37 Dose: 81 mg Documented by: Atorvastatin Calcium (Lipitor) 80 mg PO [facility] Stop: 07/16/20 20:59 Last Admin: 06/19/20 20:45 Dose: 80 mg Documented by: Clopidogrel Bisulfate (Plavix) 75 mg PO [facility] Stop: 07/16/20 08:59 Last Admin: 06/20/20 07:37 Dose: 75 mg Documented by: Dextrose (Dextrose 50%) 25 - 50 ml IV UD PRN; Protocol PRN Reason: Hypoglycemia Protocol Stop: 07/15/20 19:24 Enoxaparin Sodium (Lovenox) 40 mg SQ QAM [facility] Stop: 07/17/20 08:59 Last Admin: 06/20/20 07:38 Dose: 40 mg Documented by: Gabapentin (Neurontin) 600 mg PO TID [facility] Stop: 07/16/20 20:59 Last Admin: 06/20/20 07:37 Dose: 600 mg Documented by: Glucagon (Glucagen) 1 mg SQ UD PRN; Protocol PRN Reason: Hypoglycemia Protocol Stop: 07/15/20 19:24 Glucose (Dex4 Glucose) 4 - 8 tabs PO UD PRN; Protocol PRN Reason: Hypoglycemia Protocol Stop: 07/15/20 19:24 Glucose (Glucose 40%) 15 - 30 gm PO UD PRN; Protocol PRN Reason: Hypoglycemia Protocol Stop: 07/15/20 19:24 Sodium Chloride (Nss 1000ml) 1,000 mls @ 100 mls/hr IV .Q10H [facility] Stop: 06/21/20 03:29 Last Admin: 06/20/20 07:44 Dose: 100 mls/hr Documented by: Insulin Aspart (Novolog Flexpen) 0 units SC ACHS [facility] Stop: 07/15/20 20:59 Last Admin: 06/20/20 08:27 Dose: 4 units Documented by: Melatonin (Melatonin) 3 mg PO HS PRN PRN Reason: Sleep Stop: 07/17/20 23:07 Metoprolol Succinate (Toprol Xl) 50 mg PO [facility] Stop: 07/16/20 08:59 Last Admin: 06/20/20 07:39 Dose: Not Given Documented by: Miscellaneous (Carbohydrates For Hypoglycemia) 15 - 30 gm PO UD PRN PRN Reason: Hypoglycemia Protocol Stop: 07/15/20 19:24 Miscellaneous (Remove Nicoderm Patch) 1 ea N/A DAILY@[id number] [facility] Stop: 07/17/20 08:58 Last Admin: 06/20/20 07:38 Dose: 1 ea Documented by: Miscellaneous Information (Pharmacist Discharge Med Rec Consult) 1 ea N/A UD PRN PRN Reason: Consult Stop: 07/15/20 19:24 Nicotine (Nicoderm Cq) 21 mg TD QAM [facility] Stop: 07/16/20 16:59 Last Admin: 06/20/20 07:38 Dose: 21 mg Documented by: Oxycodone/Acetaminophen (Percocet 5mg/325mg) 1 tab PO Q4H PRN PRN Reason: Pain Stop: 06/30/20 16:43 Last Admin: 06/20/20 01:47 Dose: 1 tab Documented by: Trazodone HCl (Desyrel) 100 mg PO HS [facility] Stop: 07/15/20 20:59 Last Admin: 06/19/20 20:45 Dose: 100 mg Documented by:
--- NOTE | 2020-06-20 12:46 | CT Scan Report ---
CT head/brain wo con CT DOSE: 614.27 mGy.cm HISTORY: Mental status change R MCA stroke, worsening gait TECHNIQUE: Multiaxial CT images of the head were performed without the use of intravenous contrast. A dose lowering technique was utilized adhering to the principles of ALARA. Comparison: 06/15/2020 Findings: The paranasal sinuses and mastoid air cells are clear. The calvarium and skull base are int act. The ventricles are within normal limits. Subacute right cerebral infarct unchanged from the prior exam. There is no evidence for new or interv al process. There is no midline shift. There is no parenchymal hemorrhage. Impression: 1. Unchanged right cerebral infarct compared to the prior study. 2. No new or interval findings. ACT 112: Negative or not required by law. The above report was generated using voice recognition software. It may contain grammatical, syntax or spelling errors. Electronically signed by: Chase Ba M.D. 06/20/2020 12:45 PM
--- NOTE | 2020-06-20 17:15 | Electrocardiogram Report ---
Test Reason : Blood Pressure : / mmHG Vent. Rate : 054 BPM Atrial Rate : 054 BPM P-R Int : 198 ms QRS Dur : 096 ms QT Int : 452 ms P-R-T Axes : 015 -11 022 degrees QTc Int : 428 ms Sinus bradycardia Inferior infarct (cited on or before 12-JUN-2020) Abnormal ECG When compared with ECG of 15-JUN-2020 13:25, No significant change was found Confirmed by Vaibhav Espinoza ([id number]) on 06/20/2020 5:15:07 PM Referred By: Pedro Pablo Gaspar Confirmed By:Luis Espinoza
--- NOTE | 2020-06-20 17:26 | Cardiology Consultation ---
Date of Consultation June 20, 2020 Assessment & Plan (1) Stenosis of right internal carotid artery with cerebral infarction: (2) Hypertensive urgency: (3) CAD (coronary artery disease): (4) Preoperative cardiovascular examination: (5) BRUNA (acute kidney injury): The patient has a history of coronary heart disease having presented with an inferior wall ST segment elevation myocardial infarction in September,. He was taken to the cardiac catheterization laboratory in an emergent fashion by Dr. Torres at that time. Single-vessel coronary heart disease is noted with a 90% stenosis of the mid right coronary artery for which the patient underwent PCI, and placement of a 3x18 Resolute BRUCE. the stent was noted to extend from the mid-RCA into the ostial RPLB across the bifurcation of RPDA. Echocardiogram at that time revealed basal inferior hypokinesis somewhat similar to that which is noted on the recent echoes, however the wall motion abnormality appears to have extended. I question if whether or not the patient has lost this artery in the meantime, as he is obviously had issues with medical adherence. Barriers to healthcare include his being homeless, and based on his recent blood pressures, I do not think he has been on routine medications in the meantime, as it also been noted at the time of Dr. Chris's consultation in 03/2020. He describes no recent angina preceding his stroke event. He does have noted depression and is following with psychiatry. He notes past hobbies including flyfishing and playing [employer]. Overall, I believe he is stable from a cardiac perspective to proceed with carotid endarterectomy, however it is noted that his creatinine trended up to 1.92, and he recently received iodinated radiographic contrast and I think would be prudent for us to optimize his kidney function prior to proceeding to the operating room. His KATELYN inhibitor is currently on hold and his blood pressure is stable at present. And he is received IV fluids. Will reassess his renal function in the morning, prior to determining if tomorrow is a feasible day to proceed to the operating room. Case discussed with Dr. Ochoa. History of Present Illness Attending Physician: Vinh Ochoa MD History of Present Illness Mr Bansal is a 49-year-old male seen in preoperative cardiology consultation per the request of Dr. Santiago prior to proposed right carotid endarterectomy.The patient presented several days ago with worsening left lower extremity weakness and was found to have a subacute infarct nearby the prior right middle cerebral artery territory stroke for which he had been hospitalized in Mar, 2020. At that time, he was also noted to have severe hypertension that was uncontrolled. This admission he has been found to have a high-grade right internal carotid artery stenosis. His only complaint is left upper and lower extremity weakness. He denies any recent chest pain or shortness of breath. He is on aspirin and clopidogrel. Severe hypertension was noted on presentation this hospital stay with presenting blood pressure of 202/100. And this is improved on his current medications. Allergies Allergy/AdvReac Type Severity Reaction Status Date / Time No Known Allergies Allergy Verified 06/15/20 14:43 Home Medications Home Medications Medication Instructions Recorded Confirmed Type aspirin 81 mg PO QAM #17 tab 03/22/20 06/15/20 Rx atorvastatin 20 mg PO QAM #30 tab 03/22/20 06/15/20 Rx clopidogrel 75 mg PO QAM #30 tab 03/22/20 06/15/20 Rx fluoxetine 40 mg PO QAM 06/05/20 06/15/20 History metformin 500 mg PO BID 06/05/20 06/15/20 History metoprolol succinate 50 mg PO QAM 06/05/20 06/15/20 History trazodone 100 mg PO HS 06/05/20 06/15/20 History amlodipine 5 mg PO DAILY PRN 06/15/20 06/15/20 History gabapentin 300 mg PO TID 06/15/20 06/15/20 History lisinopril 30 mg PO DAILY 06/15/20 06/15/20 History Patient History Medical History CAD (coronary artery disease) 2013 - NSTEMI s/p BRUCE to RCA Carotid stenosis, bilateral Depression DM type 2 (diabetes mellitus, type 2) History of cerebrovascular accident (Inactive) Hypertension (Chronic) Stenosis of right internal carotid artery with cerebral infarction Stroke Surgical History S/P drug eluting coronary stent placement Family History Mother , age 68 from metastatic lung cancer Lung cancer Father No problems noted. 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 Results & Data ([facility]) Vital Signs (Past 12 Hours) Vital Signs Temp Pulse Pulse Resp BP BP Pulse Ox 06/20/20 16:27 36.9 C 62 18 129/68 96 06/20/20 15:09 54 L 06/20/20 11:54 36.3 C L 49 L 18 134/76 96 06/20/20 11:26 49 L 06/20/20 07:53 36.4 C L 53 L 18 102/67 94 Laboratory Results Comprehensive Metabolic Panel 06/20/20 Range/Units 06:42 Sodium 141 (136-145) mmol/L Potassium 5.0 (3.5-5.1) mmol/L Chloride 113 H (98-107) mmol/L Carbon Dioxide 22 (21-32) mmol/L BUN 43 H (7-18) mg/dl Creatinine 1.92 H (0.6-1.4) mg/dl Glucose 99 (70-99) mg/dl Calcium 9.3 (8.5-10.1) mg/dl Intake and Output 06/20/20 06/20/20 06/20/20 06:59 14:59 22:59 Intake Total 100 / 540 1830.000 / 1830.000 Output Total 101 / 101 Balance 100 / 540 1830.000 / 1729.000 -101 / 1729.000 Intake: IV 1000.000 / 1000.000 Nss 1000ML 1,000 ml @ 100 mls/ 1000.000 / 1000.000 hr IV .Q10H [facility] Rx#:[id number] Oral 100 / 540 830 / 830 Output: Urine 100 / 100 # Bowel Movements Other: # Unmeasured Voids 3 Weight 73.6 kg Diagnostic Findings EKG performed today 06/20/2020 revealed sinus bradycardia 54 bpm, age- indeterminate inferior infarct pattern noted. In review of serial prior EKGs dating back to Mar, 2020, the inferior infarct pattern is felt to be chronic. Echocardiogram performed 03/19/2020 revealed akinesis of the inferior wall at the basal and mid levels and the posterior wall was felt to be severely hypokinetic with mild diffuse hypokinesis otherwise, LVEF 40 to 45%. Agitated saline contrast have been administered at the time of the prior echo on 03/19/2020 with no interatrial shunt noted. A repeat study performed this admission 06/19/2020 was relatively stable, with LVEF of 45 to 50% and chronic right coronary artery territory scar noted.
[2020-06-20] MEDS: TRAZODONE HCL 50 MG TAB PO SCH (20:57)
[2020-06-20] MEDS: MIRTAZAPINE TAB 15 MG TAB PO SCH (20:57)
[2020-06-20] MEDS: ATORVASTATIN 40 MG TAB PO SCH (20:58)
[2020-06-20] MEDS: METOPROLOL TARTRATE 25 MG TAB PO SCH (21:30)
--- NOTE | 2020-06-20 23:10 | Hospitalist Progress Note ---
Date of Service June 20, 2020 Assessment & Plan (1) Stroke: Prior right MCA ischemic strokes. Presented with LUE weakness. CT demonstrated multifocal old infarcts right MCA territory as well as small vessel ischemic disease. MRI demonstrated multiple old right hemispheric MCA infarcts as well as subacute infarct right posterior parietal lobe. MRI also demonstrated: "... ring enhancement surrounding the area of restricted water diffusion within the right posterior parietal lobe. There is also postcontrast enhancement in the region of the suspected right frontal lobe infarct.. The enhancement is likely secondary to subacute postinfarct enhancement. A follow-up MRI in 3 months is recommended." Thrombolytic therapy not recommended (uncertain onset of symptoms, elevated BP's). Echo in March did not show any cardiac thrombi or evidence of right to left shunt with bubble study. CTA in March demonstrated 75% stenosis right ICA and 60% stenosis left ICA. Cardiac rhythm has been sinus. Neuro consulted. Dual antiplatelet therapy with aspirin + clopidogrel recommended. Work-up for hypercoagulable conditions ordered. Repeat echo- no cardiac thrombi; no need to repeat bubble study. CTA neck showed worsening stenosis right ICA. Vascular Surgery regarding carotid disease as discussed below. 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 LDL-c = 66. Continue high-intensity statin. Worsening gait today- repeat CT unchanged. (2) Carotid stenosis, bilateral: CTA in March demonstrated 75% stenosis right ICA and 60% stenosis left ICA. Right hemispheric strokes appear to be embolic in nature. Vascular Surgery consulted. Repeat CTA 06/19 showed > 90% stenosis right ICA, 60% stenosis left ICA. Right carotid endarterectomy recommended. (3) CAD (coronary artery disease): No anginal symptoms. Continue aspirin, clopidogrel, metoprolol, lisinopril, statin. (4) Hypertensive urgency: BP 221/126 day of presentation. BP's improved. Avoid excessive lowering of blood pressure in setting of acute ischemic stroke and severe carotid disease. Systolic BP's running in low 100's. Also has BRUNA. Stop lisinopril. Hold parameters for amlodipine and metoprolol. (5) BRUNA (acute kidney injury): Serum creatinine 1.7 on admission, fell to 1.19, and has subsequently been rising. Creatinine today = 1.92. PO intake not good (pt states that he does not like water). Had CTA 06/19. BRUNA, possible secondary to hypertensive urgency, volume depletion, contrast neph ropathy. IV fluids. Consult Nephrology if no improvement. Consider duplex renal arteries. Follow. (6) DM type 2 (diabetes mellitus, type 2): DM type 2, complicated, usually managed with metformin. Hold metformin during hospital stay. Hgb A1c = 5.3. NovoLog coverage as needed. FBS today = 104. (7) Depression: Fluoxetine not effective. Denies suicidal thoughts. Psychiatry consulted. Now receiving trazodone + mirtazapine. (8) Smoker: Smoking cessation counseling. (9) DVT prophylaxis: SQ enoxaparin. Ambulate. (10) Discharge planning issues: Inpatient rehab recommended. Family Medicine follow-up with Dr. Gaspar. Admission and Anticipated Discharge Date Admission Date: June 16, 2020 Subjective Recheck for stroke and other problems. Patient seen in their room around 1120. Gait a little worse today per PT and patient. No other new neuro symptoms; persistent clumsiness of left hand. No headache. Review of Systems: Constitutional- no fever. Cardiac- no chest pain. Pulmonary- no cough or SOB. GI- no nausea, vomiting, diarrhea, melena, hematochezia. - no urinary symptoms. Otherwise, as noted above. Physical Exam Constitutional: no acute distress Respiratory: no respiratory distress Auscultation: lungs clear to auscultation bilaterally Cardiovascular: Rate/Rhythm: regular rate and regular rhythm Heart Sounds: no gallop, no murmur and no cardiac rub Vessels: no JVD Extremities: no c care home tenderness and no edema Gastrointestinal (Abdomen): normal bowel sounds, soft, nontender, no hepatosplenomegaly Musculoskeletal: Extremities: no cyanosis Skin: no rashes, warm and dry Neurologic: PERRL, EOMI no facial palsy no dysarthria or aphasia motor upper and lower extremities essentially 5/5 plantar reflexes downgoing bilat Psychiatric: Orientation: alert and oriented x 3 Results & Data Results & Data ([facility]) Vital Signs (Past 12 Hours) Vital Signs Temp Pulse Pulse Resp BP BP Pulse Ox 06/20/20 20:36 37.0 C 68 18 139/79 95 06/20/20 16:27 36.9 C 62 18 129/68 96 06/20/20 15:09 54 L 06/20/20 11:54 36.3 C L 49 L 18 134/76 96 06/20/20 11:26 49 L Laboratory Results 06/19/20 06:15 06/20/20 06:[address] HEAD WITHOUT CONTRAST Findings: The paranasal sinuses and mastoid air cells are clear. The calvarium and skull base are intact. The ventricles are within normal limits. Subacute right cerebral infarct unchanged from the prior exam. There is no evidence for new or interval process. There is no midline shift. There is no parenchymal hemorrhage. Impression: 1. Unchanged right cerebral infarct compared to the prior study. 2. No new or interval findings. Electronically signed by: Chase Ba M.D. 06/20/2020 12:45 PM
[2020-06-21 08:00] LABS: BUN Creatinine Ratio 22.3 (10-20); Calcium 9.4 mg/dl (8.5-10.1); Est GFR (African American) 77.1; Est GFR (Non-African American) 66.5; Potassium 4.8 mmol/L (3.5-5.1)
[2020-06-21] MEDS: INSULIN ASPART 100 UNITS/ML 3 ML PEN SC SCH ×4 (08:07→22:24)
[2020-06-21] MEDS: CLOPIDOGREL BISULFATE 75 MG TAB PO SCH (08:07)
[2020-06-21] MEDS: GABAPENTIN 600 MG TAB PO SCH ×3 (08:07→20:18)
[2020-06-21] MEDS: NICOTINE 21 MG/24 HR TDSY TD SCH (08:07)
[2020-06-21] MEDS: ASPIRIN 81 MG ECTAB PO SCH (08:07)
[2020-06-21] MEDS: AMLODIPINE BESYLATE 5 MG TAB PO SCH (08:08)
[2020-06-21] MEDS: ENOXAPARIN INJ 40 MG/0.4 ML SYR SQ SCH (08:08)
[2020-06-21] MEDS: METOPROLOL TARTRATE 25 MG TAB PO SCH ×2 (08:08→20:20)
--- NOTE | 2020-06-21 08:16 | XRay Report ---
SINGLE VIEW CHEST CLINICAL HISTORY: Acute renal insufficiency. Ischemic heart disease. FINDINGS: 2 AP, portable, upright chest radiographs are compared to study dated 06/15/2020. The examin ation is degraded by portable technique and patient rotation. The cardiomediastinal silhouette is u nremarkable noting atherosclerotic calcification of the thoracic aorta. The lungs and pleural spaces are clear. No pneumothorax is seen. The bony thorax is grossly intact. IMPRESSION: No active disease in the chest. ACT 112: Negative or not required by law. Electronically signed by: Samson Pham M.D. 06/21/2020 8:15 AM
--- NOTE | 2020-06-21 15:43 | Cardiology Progress Note ---
Date of Service June 21, 2020 Assessment & Plan (1) Preoperative cardiovascular examination: (2) Stenosis of right internal carotid artery with cerebral infarction: (3) CAD (coronary artery disease): Stable CAD. BP stable. Creatinine improved to 1.26 from 1.92 yesterday. Stable from cardiology perspective to proceed to OR tomorrow, 06/22. Continue ASA , clopidogrel, atorvastatin, amlodipine, metoprolol. Subjective Patient without complaints. Telemetry reveals SR in the 80s. SB down to 45 bpm noted with sleep overnight and early this am. Physical Exam Physical Exam: Temp Pulse Resp BP Pulse Ox 36.6 C 83 18 114/71 98 06/21/20 08:28 06/21/20 14:52 06/21/20 08:28 06/21/20 08:28 06/21/20 08:28 Constitutional: WD/WN, vitals as above Respiratory: normal respiratory effort, lungs clear to auscultation Cardiovascular: RRR, no murmur, no edema Gastrointestinal (Abdomen): normal bowel sounds, soft, nontender, no hepatosplenomegaly Neurologic: left upper and lower extremity weakness Results & Data Vital Signs (Past 12 Hours) Vital Signs Temp Pulse Pulse Resp BP Pulse Ox 06/21/20 14:52 83 06/21/20 08:28 36.6 C 58 L 18 114/71 98 06/21/20 08:00 57 L Laboratory Results Comprehensive Metabolic Panel 06/21/20 Range/Units 06:59 Sodium 142 (136-145) mmol/L Potassium 4.8 (3.5-5.1) mmol/L Chloride 115 H (98-107) mmol/L Carbon Dioxide 24 (21-32) mmol/L BUN 28 H (7-18) mg/dl Creatinine 1.26 D (0.6-1.4) mg/dl Glucose 90 (70-99) mg/dl Calcium 9.4 (8.5-10.1) mg/dl Intake and Output 06/21/20 06/21/20 06/21/20 06:59 14:59 22:59 Intake Total 1150 / 3730.000 480 / 480 Output Total 300 / 651 675 / 675 Balance 850 / 3079.000 -195 / -195 Intake: IV 1000 / 1999.000 Nss 1000ML 1,000 ml @ 100 mls/ 1000 / 2000.000 hr IV .Q10H [facility] Rx#:[id number] Oral 150 / 1730 480 / 480 Output: Urine 300 / 650 675 / 675 Other: Weight 73.2 kg Patient Weight 06/22/20 06:59 Weight 73.2 kg Medications Administered Current Inpatient Medications Acetaminophen (Tylenol) 500 mg PO Q4H PRN PRN Reason: Pain or Fever Stop: 07/15/20 19:24 Last Admin: 06/19/20 02:41 Dose: 500 mg Documented by: Amlodipine Besylate (Norvasc) 5 mg PO [facility] Stop: 07/17/20 08:59 Last Admin: 06/21/20 08:08 Dose: Not Given Documented by: Aspirin (Ecotrin Ectab) 81 mg PO [facility] Stop: 07/16/20 08:59 Last Admin: 06/21/20 08:07 Dose: 81 mg Documented by: Atorvastatin Calcium (Lipitor) 80 mg PO [facility] Stop: 07/16/20 20:59 Last Admin: 06/20/20 20:58 Dose: 80 mg Documented by: Clopidogrel Bisulfate (Plavix) 75 mg PO [facility] Stop: 07/16/20 08:59 Last Admin: 06/21/20 08:07 Dose: 75 mg Documented by: Dextrose (Dextrose 50%) 25 - 50 ml IV UD PRN; Protocol PRN Reason: Hypoglycemia Protocol Stop: 07/15/20 19:24 Enoxaparin Sodium (Lovenox) 40 mg SQ [facility] Stop: 07/17/20 08:59 Last Admin: 06/21/20 08:08 Dose: 40 mg Documented by: Gabapentin (Neurontin) 600 mg PO TID [facility] Stop: 07/16/20 20:59 Last Admin: 06/21/20 14:28 Dose: 600 mg Documented by: Glucagon (Glucagen) 1 mg SQ UD PRN; Protocol PRN Reason: Hypoglycemia Protocol Stop: 07/15/20 19:24 Glucose (Dex4 Glucose) 4 - 8 tabs PO UD PRN; Protocol PRN Reason: Hypoglycemia Protocol Stop: 07/15/20 19:24 Glucose (Glucose 40%) 15 - 30 gm PO UD PRN; Protocol PRN Reason: Hypoglycemia Protocol Stop: 07/15/20 19:24 Insulin Aspart (Novolog Flexpen) 0 units SC [facility] Stop: 07/15/20 20:59 Last Admin: 06/21/20 12:03 Dose: 5 units Documented by: Melatonin (Melatonin) 3 mg PO HS PRN PRN Reason: Sleep Stop: 07/17/20 23:07 Metoprolol Tartrate (Lopressor) 12.5 mg PO BID [facility] Stop: 07/20/20 20:59 Last Admin: 06/21/20 08:08 Dose: Not Given Documented by: Mirtazapine (Remeron) 15 mg PO HS [facility] Stop: 07/20/20 20:59 Last Admin: 06/20/20 20:57 Dose: 15 mg Documented by: Miscellaneous (Carbohydrates For Hypoglycemia) 15 - 30 gm PO UD PRN PRN Reason: Hypoglycemia Protocol Stop: 07/15/20 19:24 Miscellaneous (Remove Nicoderm Patch) 1 ea N/A DAILY@0859 [facility] Stop: 07/17/20 08:58 Last Admin: 06/21/20 08:08 Dose: 1 ea Documented by: Miscellaneous Information (Pharmacist Discharge Med Rec Consult) 1 ea N/A UD PRN PRN Reason: Consult Stop: 07/15/20 19:24 Nicotine (Nicoderm Cq) 21 mg TD QAM [facility] Stop: 07/16/20 16:59 Last Admin: 06/21/20 08:07 Dose: 21 mg Documented by: Oxycodone/Acetaminophen (Percocet 5mg/325mg) 1 tab PO Q4H PRN PRN Reason: Pain Stop: 06/30/20 16:43 Last Admin: 06/20/20 21:01 Dose: 1 tab Documented by: Trazodone HCl (Desyrel) 50 mg PO HS [facility] Stop: 07/20/20 20:59 Last Admin: 06/20/20 20:57 Dose: 50 mg Documented by:
[2020-06-21] MEDS: OXYCODONE/ACETAMINOPHEN 5mg/325mg TAB PO PRN (20:17)
[2020-06-21] MEDS: MIRTAZAPINE TAB 15 MG TAB PO SCH (20:18)
[2020-06-21] MEDS: ATORVASTATIN 40 MG TAB PO SCH (20:19)
[2020-06-21] MEDS: TRAZODONE HCL 50 MG TAB PO SCH (20:19)
--- NOTE | 2020-06-21 23:26 | Hospitalist Progress Note ---
Date of Service June 21, 2020 Assessment & Plan (1) Stroke: Prior right MCA ischemic strokes. Presented with LUE weakness. CT demonstrated multifocal old infarcts right MCA territory as well as small vessel ischemic disease. MRI demonstrated multiple old right hemispheric MCA infarcts as well as subacute infarct right posterior parietal lobe. MRI also demonstrated: "... ring enhancement surrounding the area of restricted water diffusion within the right posterior parietal lobe. There is also postcontrast enhancement in the region of the suspected right frontal lobe infarct.. The enhancement is likely secondary to subacute postinfarct enhancement. A follow-up MRI in 3 months is recommended." Thrombolytic therapy not recommended (uncertain onset of symptoms, elevated BP's). Echo in March did not show any cardiac thrombi or evidence of right to left shunt with bubble study. CTA in March demonstrated 75% stenosis right ICA and 60% stenosis left ICA. Cardiac rhythm has been sinus. Neuro consulted. Dual antiplatelet therapy with aspirin + clopidogrel recommended. Work-up for hypercoagulable conditions ordered. Repeat echo- no cardiac thrombi; no need to repeat bubble study. CTA neck showed worsening stenosis right ICA. Vascular Surgery regarding carotid disease as discussed below. 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 LDL-c = 66. Continue high-intensity statin. Worsening gait 06/20. Repeat CT unchanged. (2) Carotid stenosis, bilateral: CTA in March demonstrated 75% stenosis right ICA and 60% stenosis left ICA. Right hemispheric strokes appear to be embolic in nature. Vascular Surgery consulted. Repeat CTA 06/19 showed > 90% stenosis right ICA, 60% stenosis left ICA. Right carotid endarterectomy recommended. (3) CAD (coronary artery disease): No anginal symptoms. Continue aspirin, clopidogrel, metoprolol, lisinopril, statin. (4) Hypertensive urgency: BP 221/126 day of presentation. BP's improved. Avoid excessive lowering of blood pressure in setting of acute ischemic stroke and severe carotid disease. Systolic BP's running in low 100's. Also has BRUNA. Stop lisinopril. Hold parameters for amlodipine and metoprolol. (5) BRUNA (acute kidney injury): Serum creatinine 1.7 on admission, fell to 1.19, and has subsequently elias. Creatinine as high as 1.92 on 06/20. PO intake not good (pt states that he does not like water). Had CTA 06/19. BRUNA, possible secondary to hypertensive urgency, volume depletion, contrast nep hropathy. Lisinopril held. Received IV fluids. Creatinine today = 1.26. Follow. (6) DM type 2 (diabetes mellitus, type 2): DM type 2, complicated, usually managed with metformin. Hold metformin during hospital stay. Hgb A1c = 5.3. NovoLog coverage as needed. FBS today = 199. (7) Depression: Fluoxetine not effective. Denies suicidal thoughts. Psychiatry consulted. Now receiving trazodone + mirtazapine. (8) Smoker: Smoking cessation counseling. (9) DVT prophylaxis: SQ enoxaparin. Ambulate. (10) Discharge planning issues: Inpatient rehab recommended. Family Medicine follow-up with Dr. Gaspar. Admission and Anticipated Discharge Date Admission Date: June 16, 2020 Subjective Recheck for stroke and other problems. Patient seen in their room around 1130. No new concerns. No headache. Working with therapies. Review of Systems: Constitutional- no fever. Cardiac- no chest pain. Pulmonary- no cough or SOB. GI- no nausea, vomiting, diarrhea, melena, hematochezia. - no urinary symptoms. Otherwise, as noted above. Physical Exam Constitutional: no acute distress Respiratory: no respiratory distress Auscultation: lungs clear to auscultation bilaterally Cardiovascular: Rate/Rhythm: regular rate and regular rhythm Heart Sounds: no gallop, no murmur and no cardiac rub Vessels: no JVD Extremities: no calf tenderness and no edema Gastrointestinal (Abdomen): normal bowel sounds, soft, nontender, no hepatosplenomegaly Musculoskeletal: Extremities: no cyanosis Skin: no rashes, warm and dry Neurologic: PERRL, EOMI no facial palsy no dysarthria or aphasia motor extremities essentially 5/5 Psychiatric: Orientation: alert and oriented x 3 Results & Data Results & Data ([facility]) Vital Signs (Past 12 Hours) Vital Signs Temp Pulse Pulse Resp BP Pulse Ox 06/21/20 20:33 37.5 C 70 18 149/72 H 95 06/21/20 14:52 83 Laboratory Results 06/19/20 06:15 06/21/20 06:59
[2020-06-22] MEDS: INSULIN ASPART 100 UNITS/ML 3 ML PEN SC SCH ×3 (08:08→16:49)
[2020-06-22] MEDS: GABAPENTIN 600 MG TAB PO SCH ×2 (08:08→13:27)
[2020-06-22] MEDS: CLOPIDOGREL BISULFATE 75 MG TAB PO SCH (08:08)
[2020-06-22] MEDS: ASPIRIN 81 MG ECTAB PO SCH (08:08)
[2020-06-22 08:09] LABS: Calcium 10.3 mg/dl (8.5-10.1); Creatinine Clr Calc Pharmacy 61.1 ml/min; Est GFR (African American) 72.9; Est GFR (Non-African American) 62.9
[2020-06-22] MEDS: ENOXAPARIN INJ 40 MG/0.4 ML SYR SQ SCH (08:09)
[2020-06-22] MEDS: NICOTINE 21 MG/24 HR TDSY TD SCH (08:09)
[2020-06-22] MEDS: METOPROLOL TARTRATE 25 MG TAB PO SCH (08:52)
[2020-06-22] MEDS: AMLODIPINE BESYLATE 5 MG TAB PO SCH (08:52)
--- NOTE | 2020-06-22 09:42 | Cardiology Progress Note ---
Date of Service June 22, 2020 Assessment & Plan (1) Stenosis of right internal carotid artery with cerebral infarction: Due to unforeseen circumstances, carotid endarterectomy canceled today. Patient likely to be transferred to rehab and surgery will be rescheduled. Continue ASA, clopidogrel, statin. (2) Hypertensive urgency: Patient's blood pressures have been somewhat labile. Although there are concerns of permitting his blood pressure to run a little bit higher to promote cerebral perfusion, overall, he previously been admitted 3 months ago with hypertensive urgency, and again this admission, and his systolic blood pressure was 180 when he had been seen in outpatient cardiology follow-up several weeks ago. Creatinine has trended back up a little bit today, and potassium is 5 mmol/L. Patient tells me that he had been on a clonidine patch in the past. This may be a good future consideration, but his heart rate is on the lower side already, and I am concerned about reflex hypertension when ultimately the patch is discontinued to allow him to have his carotid surgery. At present continue metoprolol tartrate 12.5 mg BID. -Metoprolol had been titrated to 50 mg BID at the time of the 03/2020 admission, however reduced now given bradycardia. Amlodipine 5 mg p.o. daily. But consider increasing this to 10 mg daily as it will not affect his creatinine or potassium, he has not had any side effects to amlodipine yet such as lower extremity edema. Medication adherence seems to be among the most important aspects of his treatment with his social circumstances contributing as he has been living in a [place] [facility]. Future considerations include hydralazine therapy orally given high potassium on ACEI, or perhaps in follow up lisinopril can be reinitiated at a lower dose , 20 mg instead of 30 mg if potassium normalizes. (3) CAD (coronary artery disease): Stable CAD, remote inferior IA. Compensated ischemic CM, LVEF 45%. Continue ASA, clopidogrel, metoprolol, statin. Subjective Patient seen in follow-up. He denies chest discomfort or shortness of breath. Telemetry reveals sinus rhythm in the range of 50 to 70 bpm. Review of Systems Review of Systems: All systems reviewed & are unremarkable except as noted in HPI & below Physical Exam Physical Exam: Temp Pulse Resp BP Pulse Ox 36.5 C 57 L 19 131/80 94 06/22/20 07:28 06/22/20 08:50 06/22/20 07:28 06/22/20 08:50 06/22/20 07:28 Constitutional: no acute distress Respiratory: normal respiratory effort, lungs clear to auscultation Cardiovascular: RRR, no murmur, no edema Gastrointestinal (Abdomen): normal bowel sounds, soft, nontender, no hepatosplenomegaly Neurologic: Left upper and lower extremity weakness again noted unchanged Results & Data Vital Signs (Past 12 Hours) Vital Signs Temp Pulse Pulse Pulse Resp BP Pulse Ox 06/22/20 08:50 57 L 131/80 06/22/20 08:14 55 L 173/95 H 06/22/20 08:00 50 L 06/22/20 07:28 36.5 C 53 L 19 191/97 H 94 06/22/20 03:46 36.5 C 52 L 19 128/79 96 06/22/20 00:00 37 C 60 18 129/71 96 Laboratory Results Comprehensive Metabolic Panel 06/22/20 Range/Units 06:48 Sodium 141 (136-145) mmol/L Potassium 5.0 (3.5-5.1) mmol/L Chloride 113 H (98-107) mmol/L Carbon Dioxide 26 (21-32) mmol/L BUN 26 H (7-18) mg/dl Creatinine 1.32 (0.6-1.4) mg/dl Glucose 114 H (70-99) mg/dl Calcium 10.3 H (8.5-10.1) mg/dl Intake and Output 06/21/20 06/22/20 06/22/20 22:59 06:59 14:59 Intake Total 1039 Output Total 551 / 1726 500 / 1726 350 / 350 Balance 489 / 244 -50 / 244 -350 / -350 Intake: Oral 1039 Output: Urine 550 / 1725 500 / 1725 350 / 350 # Bowel Movements Other: Weight 72.8 kg Patient Weight 06/23/20 06:59 Weight 72.8 kg
--- NOTE | 2020-06-22 09:57 | Communication Note ---
Date of Service: June 22, 2020 Pt's CEA procedure for today was cancelled d/t Dr Santiago having a medical emergency. Pt made aware and advised him that our office will contact him soon to reschedule this as outpt. Also gave pt the option of having it done at another facility, but pt prefers to have done here. Ok for d/c from vascular standpoint as long as he is on ASA/plavix. Obtained a secondary contact number from pt for [facility] - [phone], since his cell phone does not always have minutes and his voice mail does not always work. Also gave pt a business card for our office. Discussed with Dr Ochoa as well.
--- NOTE | 2020-06-22 15:18 | Hospitalist Progress Note ---
Date of Service June 22, 2020 Assessment & Plan (1) Stroke: Prior right MCA ischemic strokes March 2020. Presented to ED 06/15/[address] demonstrated multifocal old infarcts right MCA territory as well as small vessel ischemic disease. MRI demonstrated multiple old right hemispheric MCA infarcts as well as subacute infarct right posterior parietal lobe. MRI also demonstrated: "... ring enhancement surrounding the area of restricted water diffusion within the right posterior parietal lobe. There is also postcontrast enhancement in the region of the suspected right frontal lobe infarct.. The enhancement is likely secondary to subacute postinfarct enhancement. A follow-up MRI in 3 months is recommended." Thrombolytic therapy not recommended (uncertain onset of symptoms, elevated BP's). Echo in March did not show any cardiac thrombi or evidence of right to left shunt with bubble study. CTA in March demonstrated 75% stenosis right ICA and 60% stenosis left ICA. Cardiac rhythm has been sinus. Neuro consulted. Dual antiplatelet therapy with aspirin + clopidogrel recommended. Work-up for hypercoagulable conditions ordered. protein C activity pending protein S activeity 113% (normal) lupus anticoagulant pending factor V Leiden mutation pending Repeat echo- no cardiac thrombi; no need to repeat bubble study. CTA neck showed worsening stenosis right ICA. Vascular Surgery regarding carotid disease as discussed below. 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 Receiving high-intensity statin. Worsening gait 06/20. Repeat CT unchanged. (2) Carotid stenosis, bilateral: CTA in March demonstrated 75% stenosis right ICA and 60% stenosis left ICA. Right hemispheric strokes appear to be embolic in nature. Vascular Surgery consulted. Repeat CTA 06/19 showed > 90% stenosis right ICA, 60% stenosis left ICA. Right carotid endarterectomy recommended. CEA was scheduled for 06/22, but had to be cancelled. Procedure felt not to be emergent and will be rescheduled when possible. (3) Abnormal MRI of head: MRI 06/15/20 showed MCA infarcts as well as ring enhancement right posterior lobe. Repeat MRI recommended in 3 months. Will ask PCP to arrange. (4) CAD (coronary artery disease): No anginal symptoms. Continue aspirin, clopidogrel, metoprolol, statin. (5) Hypertensive urgency: BP 221/126 day of presentation. BP's improved, but labile. Systolic BP's at time ran in low 100's. Avoid excessive lowering of blood pressure in setting of acute ischemic stroke and severe carotid disease. Stopped lisinopril in light of low BP's and BRUNA. (consider restarting with caution in the future) Discharge BP meds: metoprolol succinate 25 mg daily, hold HR < 50 or sys < 140 amlodipine 5 mg daily, hold sys < 140 may increase to 10 mg daily if BP's not well-controlled clonidine 0.1 q 4 hr PRN persistent sys BP > 160 (short term while at [facility]) (6) BRUNA (acute kidney injury): Serum creatinine 1.7 on admission, fell to 1.19, and has subsequently elias. Creatinine as high as 1.92 on 06/20. PO intake not good (pt states that he does not like water). Had CTA 06/19. BRUNA, possible secondary to hypertensive urgency, volume depletion, contrast nephropathy. Lisinopril held. Received IV fluids. Creatinine today = 1.32. Maintain adequate volume status. Consider restarting KATELYN in future at low dose with caution. Follow. (7) DM type 2 (diabetes mellitus, type 2): DM type 2, complicated, usually managed with metformin. Hold metformin during hospital stay. Hgb A1c = 5.3. NovoLog coverage as needed. FBS today = 111. Continue to hold metformin in light of BRUNA and A1c of 5.3. Follow fasting blood sugars. (8) Depression: Fluoxetine not effective. Denies suicidal thoughts. Psychiatry consulted. Therapy changed to trazodone + mirtazapine. Follow-up with Psychiatry. (9) Smoker: Ongoing smoking cessation counseling. (10) DVT prophylaxis: SQ enoxaparin. Ambulate. (11) Discharge planning issues: Inpatient rehab recommended and arrangements are being made for transfer to [facility]. Family Medicine follow-up with Dr. Gaspar- please arrange for appt at time of DC from [facility]. Vascular Surgery follow-up with Dr. Santiago. Neurology follow-up with Quiana Anderson PA-C in 6-8 wks. Cardiology follow-up at [facility]. Admission and Anticipated Discharge Date Admission Date: June 16, 2020 Subjective Recheck for stroke and other problems. Patient seen in their room around 1420. Doing well. No new concerns. No headache. No new neuro symptoms. Working with therapies. Carotid endarterectomy scheduled for today had to be cancelled. Review of Systems: Constitutional- no fever. Cardiac- no chest pain. Pulmonary- no cough or SOB. GI- no nausea, vomiting, diarrhea, melena, hematochezia. - no urinary symptoms. Otherwise, as noted above. Physical Exam Constitutional: no acute distress Respiratory: no respiratory distress Auscultation: lungs clear to auscultation bilaterally Cardiovascular: Rate/Rhythm: regular rate and regular rhythm Heart Sounds: no gallop, no murmur and no cardiac rub Vessels: no JVD Extremities: no ca lf tenderness and no edema Gastrointestinal (Abdomen): normal bowel sounds, soft, nontender, no hepatosplenomegaly Musculoskeletal: Extremities: no cyanosis Skin: no rashes, warm and dry Neurologic: PERRL, EOMI no facial palsy no dysarthria or aphasia motor strength upper and lower extremities essentially 5/5 plantar reflexes downgoing Psychiatric: Orientation: alert and oriented x 3 Results & Data Results & Data ([facility]) Vital Signs (Past 12 Hours) Vital Signs Temp Pulse Pulse Resp BP Pulse Ox 06/22/20 11:02 36.8 C 59 L 19 125/74 98 06/22/20 08:50 57 L 131/80 06/22/20 08:14 55 L 173/95 H 06/22/20 08:00 50 L 06/22/20 07:28 36.5 C 53 L 19 191/97 H 94 06/22/20 03:46 36.5 C 52 L 19 128/79 96 Laboratory Results 06/22/20 06:48
--- NOTE | 2020-06-22 16:19 | Discharge Summary ---
Date of Service Date of Admission: 06/15/20 Date of Discharge: 06/22/20 Admission HPI Per Admitting Provider 49-year-old male with PMH HTN, DM type II, CAD, CVA, bilateral carotid stenosis, and other problems listed below who presents the ED for evaluation of recurrent falls and lower extremity weakness. Recently, patient has been dealing with uncontrolled hypertension. He was seen in the ED on 06/05 for elevated BP. Patient received IV hydralazine at that time and was instructed to increase his lisinopril to 30 mg daily from 20 mg. Patient presented back to the ED at 06/12 for elevated BP and again received IV hydralazine. No home medication adjustments were made at that time. Patient was seen by cardiology yesterday. In the office, BP was 102/72. He was given a prescription for as needed amlodipine for when BP is over 180/90. Patient reports that about 1 week ago, dg jensen had an episode where his left leg became weak and gave out from under him and his right leg shortly followed with the same symptoms and he fell to the ground. Patient reports experiencing this yesterday and 2 times this morning. Patient denies any associated lightheadedness, dizziness, diaphoresis, syncopal event. No chest pain or shortness of breath. Has chronic difficulty with left upper e xtremity fine motor movement due to previous CVA. No other unilateral weakness, numbness, tingling. Denies loss of bowel or bladder function. Patient reports severe neuropathy in both of his feet. Denies headache, blurred vision, facial droop. No difficulty speaking, understanding, swallowing. Denies any other recent illnesses, fevers, chills. No urinary symptoms. In the ED, BP is noted to be elevated, highest being 221/126. Labs show BRUNA with creatinine 1.7. Patient received IVF. Principal Diagnosis subacute right MCA ischemic stroke OTHER ACUTE / NEW DIAGNOSES: hypertensive urgency abnormal MRI brain- repeat 3 months carotid artery disease, severe > 90% right ICA, moderate 60% left ICA acute kidney injury Discharge Data Allergies Allergy/AdvReac Type Severity Reaction Status Date / Time No Known Allergies Allergy Verified 06/15/20 14:43 Consultations 06/15/20 17:00 ED Decision to Admit Stat 06/15/20 19:25 Consult Case Management - Discharge Planning Routine Consult Case Management - Discharge Planning Routine Consult Neurology Routine 06/18/20 15:24 Consult Psychiatry Routine 06/19/20 07:00 Consult Vascular Surgery Routine 06/20/20 11:50 Consult Cardiology Routine Procedures Performed Operation Date: 06/22/20 08:30 <No data on this case meets the specified criteria> Ordered Studies 06/15/20 13:18 CT head/brain wo con Stat 06/15/20 19:25 MR brain wo/w con Routine 06/19/20 08:42 CT angio neck wo/w con Routine 06/20/20 12:00 CT head/brain wo con Urgent Hospital Course (1) Stroke: Prior right MCA ischemic strokes March 2020. Presented to ED 06/15/[address] demonstrated multifocal old infarcts right MCA territory as well as small vessel ischemic disease. MRI demonstrated multiple old right hemispheric MCA infarcts as well as subacute infarct right posterior parietal lobe. MRI also demonstrated: "... ring enhancement surrounding the area of restricted water diffusion within the right posterior parietal lobe. There is also postcontrast enhancement in the region of the suspected right frontal lobe infarct.. The enhancement is likely secondary to subacute postinfarct enhancement. A follow-up MRI in 3 months is recommended." Thrombolytic therapy not recommended (uncertain onset of symptoms, elevated BP's). Echo in March did not show any cardiac thrombi or evidence of right to left shunt with bubble study. CTA in March demonstrated 75% stenosis right ICA and 60% stenosis left ICA. Cardiac rhythm has been sinus. Neuro consulted. Dual antiplatelet therapy with aspirin + clopidogrel recommended. Work-up for hypercoagulable conditions ordered. protein C activity pending protein S activeity 113% (normal) lupus anticoagulant pending factor V Leiden mutation pending Repeat echo- no cardiac thrombi; no need to repeat bubble study. CTA neck showed worsening stenosis right ICA. Vascular Surgery regarding carotid disease as discussed below. 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 Receiving high-intensity statin. Worsening gait 06/20. Repeat CT unchanged. (2) Carotid stenosis, bilateral: CTA in March demonstrated 75% stenosis right ICA and 60% stenosis left ICA. Right hemispheric strokes appear to be embolic in nature. Vascular Surgery consulted. Repeat CTA 06/19 showed > 90% stenosis right ICA, 60% stenosis left ICA. Right carotid endarterectomy recommended. CEA was scheduled for 06/22, but had to be cancelled. Procedure felt not to be emergent and will be rescheduled when possible. (3) Abnormal MRI of head: MRI 06/15/20 showed MCA infarcts as well as ring enhancement right posterior lobe. Repeat MRI recommended in 3 months. Will ask PCP to arrange. (4) CAD (coronary artery disease): No anginal symptoms. Continue aspirin, clopidogrel, metoprolol, statin. (5) Hypertensive urgency: BP 221/126 day of presentation. BP's improved, but labile. Systolic BP's at time ran in low 100's. Avoid excessive lowering of blood pressure in setting of acute ischemic stroke and severe carotid disease. Stopped lisinopril in light of low BP's and BRUNA. (consider restarting with caution in the future) Discharge BP meds: metoprolol succinate 25 mg daily, hold HR < 50 or sys < 140 amlodipine 5 mg daily, hold sys < 140 may increase to 10 mg daily if BP's not well-controlled clonidine 0.1 q 4 hr PRN persistent sys BP > 160 (short term while at [facility]) (6) BRUNA (acute kidney injury): Serum creatinine 1.7 on admission, fell to 1.19, and has subsequently elias. Creatinine as high as 1.92 on 06/20. PO intake not good (pt states that he does not like water). Had CTA 06/19. BRUNA, possible secondary to hypertensive urgency, volume depletion, contrast nephropathy. Lisinopril held. Received IV fluids with improvement. Creatinine day of discharge 1.32. Maintain adequate volume status. Consider restarting KATELYN in future at low dose with caution. Follow. (7) DM type 2 (diabetes mellitus, type 2): DM type 2, complicated, usually managed with metformin. Hold metformin during hospital stay. Hgb A1c = 5.3. NovoLog coverage as needed. FBS day of discharge 111. Continue to hold metformin in light of BRUNA and A1c of 5.3. Follow fasting blood sugars. (8) Dyslipidemia: LDL-c = 66. Receiving high-intensity statin therapy with atorvastatin 80 mg daily. (9) Depression: Fluoxetine not effective. Denies suicidal thoughts. Psychiatry consulted. Therapy changed to trazodone + mirtazapine. Follow-up with Psychiatry. (10) Smoker: Nicotine patch taper 21 mg --> 14 mg --> 7 mg. Ongoing smoking cessation counseling. (11) DVT prophylaxis: SQ enoxaparin until ambulatory. Ambulate. (12) Discharge planning issues: Inpatient rehab recommended and arrangements are being made for transfer to [facility]. Family Medicine follow-up with Dr. Gaspar- please arrange for appt at time of DC from [facility]. Vascular Surgery follow-up with Dr. Santiago. Neurology follow-up with Quiana Anderson PA-C in 6-8 wks. Cardiology follow-up at [facility]. Total Time Total Time Spent Total Time Spent (In Minutes): 50 Discharge Plan Discharge Items Patient Disposition: Transfer Inpatient Rehab Fac Reason For Visit: FALLS WEAKNESS Discharge Diagnosis: new right MCA ischemic stroke severe stenosis right internal carotid artery Condition on Discharge: Good Activity: As commented below Activity Comment: ambulate with walker and assistance Non-emergency contact: Primary Care Provider, Hospitalist and Neurologist Call non-emergency contact if: you have any medication questions and your symptoms worsen Follow-up/Referrals: Quiana Anderson PA-C [Physician Wood Bucker] - Jeffry Santiago MD [Physician] - Pedro Pablo Gaspar MD [Primary Care Provider] - Diet: Carb Consistent or DM2 and Heart Healthy Addtl Attending Provider Instructions: Fall precautions. VTE prophylaxis: enoxaparin 40 mg SQ daily until ambulatory Please check BMP q 2 days until stable, then as clinically indicated. Thank you for receiving this patient in transfer. Please call if you have any questions. Vinh Ochoa Addtl Fabrication Supervisor Provider Instructions: Risk Factors for Stroke: You can reduce your chances of stroke by working with your medical provider to adopt a healthy lifestyle. Some specific ways to lower your chance of stroke are: * If you are a smoker, now is the time to stop smoking cigarettes * If you are diabetic, improve the control of your blood sugars * Avoid excessive amounts of alcohol * Control high blood pressure * Lose weight if you are overweight * Be sure to lead an active lifestyle * Eat a healthy diet low in salt, cholesterol and fat You should know about other risk factors for stroke that you are unable to control. These include: * Age 55 years or older * Male gender * Certain racial groups: , or / * Family History of Stroke, Mini stroke or Heart Attack * Sickle Cell Disease Follow Up: It is important for you to keep your follow up appointments with your medical provider. Who to Call and When: Medical Emergencies: Call 911 immediately if you experience any of the following warning signs and symptoms of Stroke: * Sudden numbness or weakness of the face, arm or leg, especially on one side of the body * Sudden confusion, trouble speaking or understanding * Sudden trouble seeing in one or both eyes * Sudden trouble walking, dizziness, loss of balance or coordination * Sudden severe headache with no cause Do not delay calling 911 if you experience any warning signs or symptoms of a stroke. Delay in seeking medical attention may affect what treatments can be given to you. . Pending Studies at Discharge: Yes Studies:: protein C activity pending lupus anticoagulant pending factor V Leiden mutation pending Stand-Alone Forms: My [facility] Skilled Items Patient informed of condition?: Yes DNR: No Discharge Level of Care: Acute rehab Communicable Disease: No Discharge Prognosis: Improving Lines: None Urinary Catheter: Yes Medications and DC Order Prescriptions: New nicotine [Nicoderm CQ] 14 mg/24 hr patch 24 hour 1 patch TD DAILY Qty: 14 RF: 0 enoxaparin 40 mg/0.4 mL Syringe 40 mg subcut QAM 30 Days Qty: 12 RF: 0 atorvastatin 80 mg tablet 80 mg PO DAILY Qty: 30 RF: 0 metoprolol succinate 25 mg tablet extended release 24 hr 25 mg PO DAILY Qty: 30 RF: 0 trazodone 50 mg Tablet 50 mg PO HS Qty: 30 RF: 0 acetaminophen 500 mg Tablet 500 mg PO Q4H PRN (Reason: pain) Qty: 60 RF: 0 gabapentin 600 mg Tablet 600 mg PO TID Qty: 90 RF: 0 mirtazapine 15 mg Tablet 15 mg PO HS Qty: 30 RF: 0 melatonin 3 mg Tablet 3 mg PO HS PRN (Reason: insomnia) Qty: 30 RF: 0 Pharmacist Discharge Consult [Pharmacist Discharge Med Rec Consult] 1 ea N/A UD PRN (Reason: stroke) Qty: 1 RF: 0 clonidine HCl 0.1 mg tablet 0.1 mg PO Q4H PRN (Reason: persistent systolic BP > 160) Qty: 10 RF: 0 Continued clopidogrel 75 mg Tablet 75 mg PO QAM Qty: 30 RF: 2 aspirin 81 mg Tablet,Delayed Release (Dr/Ec) 81 mg PO QAM Qty: 17 RF: 0 Changed amlodipine 5 mg Tablet 5 mg PO DAILY Qty: 30 RF: 0 Discontinued atorvastatin 20 mg Tablet 20 mg PO QAM Qty: 30 RF: 2 fluoxetine 40 mg capsule 40 mg PO QAM RF: 0 metoprolol succinate 50 mg tablet extended release 24 hr 50 mg PO QAM RF: 0 trazodone 100 mg tablet 100 mg PO HS RF: 0 metformin 500 mg tablet 500 mg PO BID RF: 0 lisinopril 30 mg tablet 30 mg PO DAILY RF: 0 gabapentin 300 mg capsule 300 mg PO TID RF: 0 Admission Data Admit Date/Time: 06/16/20 16:47 Attending Provider: Vinh Ochoa Admit Provider: Karan Potter Primary Care Provider: Pedro Pablo Gaspar Other Providers: Karan Potter ; Zechariah Cole ; [facility] ; Jessika Louise ; [place], ; [place] ; Darcy Quiroga ; Jeffry Santiago ; Greg Morgan
[2020-06-22] MEDS ORDERED: STROKE PATIENT DISCHARGE STA (16:24)
[2020-06-24 20:13] LABS: Activated Protein C Resistance 5.2 ratio (>=2.1)
[2020-06-25 10:44] LABS: Lupus Hex Phase (Rflxdonotord) Negative (Negative)
== END 2020-06-22 17:46 | DRG 38 ==
LOC: 2S 13:12 → ED 13:12 → SUATTDRO 17:24 → 2S 18:53 → SUATTDRO 06-16 16:47

== ENCOUNTER 2020-06-28 09:08 | Inpatient (IN) ==
--- NOTE | 2020-06-27 15:29 | Anesthesiology Consultation ---
Date of Service June 27, 2020 Assessment & Plan (1) Encounter for pre-operative examination: Chart Review Chart Review: Acceptable Risk for Surgery (pending evaluation by anesthesia/review of medical/surgical/social hx and rapid Covid test result) and Patient NOT seen in Pre Admission Testing Chart review: Patient not seen at PAT/no RN phone interview at time of review. Chart review from available information. Will need to review PMHX/PSHX AM DOS. Weight and height will also need confirmed DOS. Travel assessment unknown as well- will order rapid Covid test for DOS - Check BSG AM DOS Pt initially scheduled for CEA with Dr. Santiago on 06/22/20 but had to be rescheduled due to surgeon medical emergency. Pt admitted to [facility] 06/15/20-06/22/20= admitted for hypertensive urgency, abnormal MRI, carotid artery disease and BRUNA. Hx of CVA March 2020- 06/15/20 brain MRI showed subacute infarct to parietal lobe. ECHO showed no cardiac emboli. Work up for hypercoagulable conditions ordered. Carotid stenosis- vascular surgery recommended CEA- had been scheduled for CEA 06/22/20 but rescheduled. Recommended follow up MRI in three months for ring enhancements. CAD- no anginal symptoms. HTN- BP improved but labile. Discharged on BP meds. BRUNA- Lisinopril was held- given IV fluids- creat decreased to 1.32 on day of discharge. DM- Metformin on hold due to kidney function. Seen by cardio 06/22/20 as inpatient= CEA was canceled while patient admitted- pt discharged that day and CEA will be reschedule for future. Recommended continue meds. HTN- labile BP. Recommended Metoprolol, Amlodipine. Will consider hydralazine or ACEi in future. CAD- hx of remote inferior TN- compensated CM- LVEF 45%. Per 06/21/20 cardio note "Stable from cardiovascular perspective to proceed to OR" Seen by neuro as inpatient on 06/19/20= Discussed chronic ischemic stroke with subacute infarct within/nearby to prior R MCA stroke bed. Aware patient will go for R CEA in near future. Recommend f/u with neuro as outpatient in 6-8 weeks History Surgery Operation Date: 06/28/20 10:00 Proposed Procedures p Right Carotid Endarterectomy with Bovine Patch Angioplasty - Castro Arita MD Allergies Allergy/AdvReac Type Severity Reaction Status Date / Time No Known Allergies Allergy Verified 06/27/20 14:03 Medications Home Medications Medication Instructions Recorded Confirmed Last Taken aspirin 81 mg PO QAM #17 tab 03/22/20 06/27/20 06/15/20 clopidogrel 75 mg PO QAM #30 tab 03/22/20 06/27/20 06/15/20 Pharmacist Discharge Consult 1 ea N/A UD PRN #1 ea 06/22/20 06/27/20 Unknown [Pharmacist Discharge Med Rec Consult] acetaminophen 500 mg PO Q4H PRN #60 tab 06/22/20 06/27/20 Unknown amlodipine 5 mg PO DAILY #30 tab 06/22/20 06/27/20 Unknown atorvastatin 80 mg PO DAILY #30 tab 06/22/20 06/27/20 Unknown clonidine HCl 0.1 mg PO Q4H PRN #10 tab 06/22/20 06/27/20 Unknown enoxaparin 40 mg SUBCUT QAM 30 Days #12 ml 06/22/20 06/27/20 Unknown gabapentin 600 mg PO TID #90 tab 06/22/20 06/27/20 Unknown melatonin 3 mg PO HS PRN #30 tab 06/22/20 06/27/20 Unknown metoprolol succinate 25 mg PO DAILY #30 tab 06/22/20 06/27/20 Unknown mirtazapine 15 mg PO HS #30 tab 06/22/20 06/27/20 Unknown nicotine [Nicoderm CQ] 1 patch TD DAILY #14 ea 06/22/20 06/27/20 Unknown trazodone 50 mg PO HS #30 tab 06/22/20 06/27/20 Unknown Past Medical History Medical History Abnormal MRI of head MRI 06/15/20 showed MCA infarcts as well as ring enhancement right posterior lobe. Repeat MRI recommended in 3 months. CAD (coronary artery disease) 2013 - NSTEMI s/p BRUCE to RCA Carotid stenosis, bilateral Depression DM type 2 (diabetes mellitus, type 2) Dyslipidemia History of cerebrovascular accident March 2020; subacute infarct noted to parietal lobe per 06/15/20 MRI Hypertension Ischemic cardiomyopathy EF=45% Past Family History Family History Mother , age 68 from metastatic lung cancer Lung cancer Father No problems noted. Past Surgical History Surgical History S/P drug eluting coronary stent placement Social History Smoking Status: Current every day smoker tobacco type: cigarettes Hx Alcohol Use: No (Reports former use, no alcohol use recently) Alcohol type: beer alcohol intake frequency: a few times a month Hx Substance Use: No Testing Laboratory Results Laboratory Tests 06/15/20 06/19/20 06/19/20 13:20 06:15 06:15 WBC 8.78 Hgb 15.7 Hct 44.3 Plt Count 137 PT 11.3 INR 1.1 APTT 29.8 Sodium Potassium Chloride Carbon Dioxide BUN Creatinine Glucose Hemoglobin A1c 5.3 06/22/20 06:48 WBC Hgb Hct Plt Count PT INR APTT Sodium 141 Potassium 5.0 Chloride 113 H Carbon Dioxide 26 BUN 26 H Creatinine 1.32 Glucose 114 H Hemoglobin A1c Electrocardiogram Date: 06/20/20 Findings: + SB @ (54) Inferior infarct (cited on or before June 12, 2020). (history of inferior TN in 2013) Chest X-Ray Date: 06/21/20 Findings: + NAD Echocardiogram Date: 06/19/20 EF: 45-50% LV Function: dysfunctional (Mildly reduced ) Other Findings: + LVH (severe/concentric) Moderate sized inferior and posterior wall abnormality with HK to AK of segments. Grade I diastolic dysfunction. Mild AR. (cardio aware and has reviewed ECHO- pt with history of ischemic CM due to TN in 2013) Other Testing Head CT 06/20/20= Unchanged right cerebral infarct compared to the prior study. No new or interval findings. Neck CTA 06/19/20= Progressively worsened stenosis at the origin of the right internal carotid artery, now greater than 90%. Unchanged 60% stenosis at the origin of the left internal carotid artery. 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 Brain MRI 06/15/20= Multiple old right hemispheric MCA distribution infarcts. 2 cm focus of restricted water diffusion within the right posterior parietal lobe likely secondary to a subacute infarct. Ring enhancement surrounding the focus of restricted water diffusion within the right posterior parietal lobe, and postcontrast enhancement in the region of the suspected right frontal lobe infarct. The enhancement is likely secondary to subacute postinfarct enhancement. A follow-up MRI in 3 months is recommended.
[~2020-06-28 09:08] MED LIST: DEXAMETHASONE SOD INJ 4 MG/ML VIAL ONE; ESMOLOL HCL INJ 10 MG/ML 10ML VIAL IV ONE; GLYCOPYRROLATE 0.2 MG/ML VIAL ONE; HEPARIN SOD (PORCINE) 1000 UNIT/ML 10 ML VIAL ONE; LABETALOL HCL IV 5 MG/ML 20ML IV ONE; LIDOCAINE HCL 2% 2 ML VIAL/AMP(20MG/ML) INFIL ONE; LR 15ML/HR IV SCH; NEOSTIGMINE METHYLSULFATE 5 MG/5 ML SYR ONE; NITROGLYCERIN/D5W 100 MCG/ML BTL ONE; ONDANSETRON INJ 2 MG/ML 2 ML VIAL ONE; PHENYLEPHRINE 100MCG/ML 5ML SYR ONE; PHENYLEPHRINE HCL 10 MG/ML VIAL ONE; PROPOFOL IV EMULSION 10 MG/ML 20 ML VIAL IV ONE; ROCURONIUM BROMIDE 10 MG/ML 5 ML VIAL IV ONE; SODIUM CHLORIDE 0.9% INJ 10 ML VIAL ONE; fentaNYL citrate 100 MCG/2 ML VIAL ONE
--- NOTE | 2020-06-28 09:57 | History & Physical Bridge Note ---
Date of Service June 28, 2020 History & Physical Bridge Note I have examined the patient, reviewed the History & Physical and in the interval since the performance of the History & Physical I have noted the following changes of clinical significance: no changes noted pt marked admit order written all questions answered
[2020-06-28] MEDS ORDERED: HEPARIN (PORCINE) 1000 UNIT/ML 10 ML (CATH LAB USE ONLY) ONE (10:08)
[2020-06-28] MEDS ORDERED: LIDOCAINE/EPINEPHRINE 1% 20 ML VIAL ONE (10:08)
[2020-06-28] MEDS ORDERED: BACITRACIN INJ 50,000 UNIT VIAL ONE (10:08)
[2020-06-28] MEDS ORDERED: CEFAZOLIN 2,000 MG/15 ML IV PUSH IV ONE (10:48)
[2020-06-28] MEDS ORDERED: HydrALAZINE HCL 20 MG/ML VIAL ONE (11:17)
[2020-06-28] MEDS ORDERED: PHENYLEPHRINE HCL 10 MG/ML VIAL ONE (12:22)
[2020-06-28] MEDS ORDERED: PROTAMINE SULFATE 10 MG/ML 5 ML VIAL ONE ×2 (12:55→12:58)
[2020-06-28] MEDS ORDERED: GELATIN SPONGE SZ 100 ONE (13:08)
[2020-06-28] MEDS ORDERED: THROMBIN FOR SOLN 20000 UNIT KIT ONE (13:08)
--- NOTE | 2020-06-28 13:29 | Post Operative Brief Note ---
PG Immediate Post Op with CF Date of Surgery June 28, 2020 Pre & Post Diagnosis Operation Date: 06/28/20 10:00 Pre-Op Diagnosis: Carotid Stenosis Post-Op Diagnosis: Carotid Stenosis I identified the patient and participated in the time-out.: Yes Procedure Operation Date: 06/28/20 10:00 Actual Procedures p Right Carotid Endarterectomy with Bovine Patch Angioplasty(Right) - Castro Arita MD Surgeon Castro Arita MD Indoor Landscaper/Gardener kp black Estimated Blood Loss 350 Findings Consistent with Post-Op Diagnosis Specimens Specimen Description: A. Right Carotid Plaque Drains [place] Drain (11/19" drain)
[2020-06-28] MEDS ORDERED: fentaNYL citrate 100 MCG/2 ML VIAL ONE (13:54)
[2020-06-28] MEDS ORDERED: ONDANSETRON INJ 2 MG/ML 2 ML VIAL IV PRN ×2 (13:57→15:33)
[2020-06-28] MEDS ORDERED: LABETALOL HCL IV 5 MG/ML 20ML IV PRN (13:57)
[2020-06-28] MEDS ORDERED: PHENYLEPHRINE 100MCG/ML 5ML SYR IV PRN (13:57)
[2020-06-28] MEDS ORDERED: ePHEDrine sulfate 50 MG/ML AMP IV PRN (13:57)
[2020-06-28] MEDS ORDERED: ATROPINE SULFATE 0.1 MG/ML 10ML SYR IV PRN (13:57)
[2020-06-28] MEDS ORDERED: STAT IV Infusion **Titration per Protocol STA (13:59)
--- NOTE | 2020-06-28 13:59 | Operative Report ---
PG Post Operative Report Pre & Post Diagnosis Operation Date: 06/28/20 10:00 Pre-Op Diagnosis: Carotid Stenosis Post-Op Diagnosis: Carotid Stenosis I identified the patient and participated in the time-out.: Yes Procedure Operation Date: 06/28/20 10:00 Actual Procedures p Right Carotid Endarterectomy with Bovine Patch Angioplasty(Right) - Castro Arita MD Patient was brought into the operating theater general trach anesthesia arterial line right radial was placed by anesthesia At this point right neck area was prepped and scrub solution properly draped systemic antibiotics on board a timeout was had patient was identified 1% Xylocaine with epi was used to infiltrate anterior to sternocleido's muscle incision was made approximately 4 inches long deepened through subcutaneous tissue were able to retract the sternocleido's laterally went onto the neurovascular bundle actually the bundle was more medial than we anticipated we identified the internal jugular and the facial vein which we divided between hemostats and doubly ligated the vein and retracted out laterally plane of dissection along this internal jugular we are able to expose the carotid encircled proximally with a vessel loop distally we continued our dissection in fact the carotid rows more medially than usual was anterior to the level of the angle of the mandible were able to place a self-retaining retractor Laura retractor to follow the exposure we then identified the superior thyroid that we encircled with 2 oh blade of silk expose the external carotid and the internal carotid was dissected out at its takeoff was pretty large bulb we went up to the and identified the hypoglossal nerve which was placed in the vessel loop the internal carotid continued higher than we had anticipated this far as getting control therefore I divided the digastric at its tendinous portion we then divided the suspensory ligament ligated with 2-0 silk this point once we had enough mobilization we gave systemic heparinization with 8000 units waiting approximately 5 minutes we clamped the internal carotid artery which was small then the external then the common arteriotomy in the common carotid was made the common had very little plaque formation then we extended the arteriotomy to the internal carotid where at the takeoff had a large hemorrhagic plaque. Or not near totally occluded. The point of dissection in the common carotid was made and the intima level and continued up to the bifurcation did an inversion endarterectomy of the external carotid then continued up to the internal carotid to the point that as we freed it up and leveled off financially and there was no intimal flap. We took the clamp off the internal carotid which was a bulldog and that patient had excellent bleeding initially thought about endorgan shunt but the internal carotid Was fairly small in caliber. At this point the bovine patch that is been processed on and prepped while we waited for the heparin was brought up in the field and circumferentially along later with 6-0 Prolene we placed the toe first at the internal carotid making sure to visualize that with a parachute technique. We then circumferentially went all around it before tying the patch done we retroflexed the internal carotid external and common. We suctioned out the endarterectomy site and prior to releasing the clamp I placed a #3 bakes dilator into the internal carotid past the toe which without any difficulty control the backbleeding with DeBakey forceps when we took the clamp off the external carotid and the common suctioned out the endarterectomy site and tacked down the the patch there was some oozing and multiple areas of the operative field some along the suture line which we controlled with multiple interrupted suture 6-0 Prolene there was some oozing was minimally up at the internal carotid area that I placed a Surgicel in time we reversed the heparin with 40 mg of protamine waited allocated time then we gave another 40 I also used some topical thrombin in the operative field we really had good control while we are finished but I elected to drain this with 1/4 inch [place] drain taken out between the 2 heads of sternocleidal and leaving it along the endarterectomy site once we felt hemostasis was satisfactory I closed the wound in multiple layers 2-0 interrupted Vicryl and luis for skin edges dressing was applied the procedure was tolerated well by the patient estimated blood loss 350 at the end the procedure we waited the patient was extubated responding appropriately moving all her extremities. Addendum Terra Barros physician human resources office assistant was present throughout the procedure and helped with exposure retraction and wound closure Surgeon Castro Arita MD Furniture Refinisher kp black Estimated Blood Loss 350 Findings Consistent with Post-Op Diagnosis Specimens plaque carotid Description of Procedure merda I attest to the content of the Intraoperative Record and any orders documented therein. Any exceptions are noted below.
[2020-06-28] MEDS ORDERED: NITROGLYCERIN/D5W 100MCG/ML 250 ML IV SCH (14:00)
[2020-06-28] MEDS ORDERED: LABETALOL HCL IV 5 MG/ML 20ML IV ONE (14:02)
[2020-06-28] MEDS: fentaNYL citrate 100 MCG/2 ML VIAL IV PRN ×2 (14:07→14:12)
[2020-06-28] MEDS: HYDROmorphone INJ 1 MG/ML SYRINGE IV PRN ×4 (14:17→14:47)
[2020-06-28] MEDS: MEPERIDINE HCL 25 MG/ML CARP/VIAL IV PRN ×2 (14:37→14:42)
--- NOTE | 2020-06-28 14:42 | Anesthesiology Progress Note ---
Date of Service June 28, 2020 Anesthesia Post Procedure Vital Signs Vital Signs: Temp Pulse Pulse Resp BP BP Pulse Ox 06/28/20 14:35 73 17 152/52 H 100 06/28/20 14:25 74 12 162/59 H 100 06/28/20 14:15 77 12 150/61 H 100 06/28/20 14:05 76 12 154/59 H 100 06/28/20 13:55 81 12 161/63 H 100 06/28/20 13:45 36.2 C L 69 16 140/63 163/80 H 100 06/28/20 09:58 36.7 C 49 L 20 177/92 H 100 Pain Intensity Right Lateral Neck: Pain Intensity: 3 Transfer of Care Handoff Completed per policy Notes Mental Status: alert / awake / arousable Patient Amnestic to Procedure: Yes Nausea / Vomiting: adequately controlled Pain: adequately controlled and improving with treatment Airway Patency, RR, SpO2: stable & adequate BP & HR: stable & adequate Hydration State: stable & adequate Anesthetic Complications: no major complications apparent and Pt Satisfied with anesthetic care Notes: The patient is awake and his vital signs are stable in PACU. His neck does not appear swollen. He is able to move all of his extremities and follows commands well. His tongue does deviate to the right when he sticks it out. The patient will be monitored overnight in the ICU. Sign out was given to the ICU resident.
[2020-06-28] MEDS ORDERED: OXYCODONE/ACETAMINOPHEN 5mg/325mg TAB PO PRN (15:33)
[2020-06-28] MEDS ORDERED: MoRPHine SULFATE 4 MG/ML 1 ML CARP\\VIAL IV PRN (15:42)
[2020-06-28] MEDS ORDERED: MoRPHine SULFATE 2 MG/ML CARP IV PRN (15:42)
[2020-06-28] MEDS ORDERED: NICOTINE 14 MG/24 HR PATCH TD SCH (16:00)
[2020-06-28] MEDS: LACTATED RINGER'S 1,000 ML IV SCH (16:43)
[2020-06-28] MEDS: GABAPENTIN 600 MG TAB PO SCH ×2 (16:43→21:36)
[2020-06-28] MEDS: NICOTINE 14 MG/24 HR PATCH TD SCH (17:32)
--- NOTE | 2020-06-28 18:05 | Critical Care Consultation ---
Date of Consultation June 28, 2020 Assessment & Plan (1) Stenosis of right internal carotid artery with cerebral infarction: --Status post right carotid endarterectomy Continue with neurochecks Monitor blood pressure, keep systolic blood pressure less than 140 Monitor for any signs of bleeding Repeat H&H Pain management Continue with Plavix and aspirin --Hypertension Continue with blood pressure medication --Dyslipidemia Continue with statin --Active smoker Advised to quit Continue with nicotine patch --Prophylaxis VTE: IPC's, resume chemical prophylaxis once cleared by surgery GI: Protonix Lines: Peripheral, left radial Diet: Cardiac Plan: Monitor blood pressure. Follow-up H&H Continue neurochecks Pain management I have personally spent 41 minutes of critical care time in the direct management of this patient. This is a life/limb threatening event. This includes time spent evaluating patient, direct bedside care, chart review, placing orders, interpretation of diagnostic studies, discussion with consultants, patient, and family members, as well as other required patient management activities. This time is exclusive of all separately billable procedures, and teaching time and separate from and in addition to any other critical care service time. Please note the above document was generated using voice recognition software. It may contain grammatical, syntax or spelling errors. (2) Chronic ischemic right MCA stroke: History of Present Illness Attending Physician: Castro Arita MD History of Present Illness 49-year-old male with past medical history of hypertension, diabetes type 2, coronary artery disease, multiple CVAs in the past, bilateral carotid stenosis had right-sided carotid endarterectomy done by Dr Arita today. Patient had history of 90% stenosis of the right internal carotid artery with multiple CVAs in the past. Patient is in the ICU post op for monitoring Patient was signed out by surgery and anesthesia. There was approximately blood loss of 350 cc during the OR. At the time of examination patient denies any chest pain, no shortness of breath, no headache, no dizziness, no blurry vision. Only thing he complains of is mild soreness at the site of the surgery. No nausea or vomiting. Social history: Used to be heavy smoker right now occasionally smokes 1 or 2 cigarettes on a daily basis, used to be heavy drinker, quit long time ago, denies any illicit drug use Allergies Allergy/AdvReac Type Severity Reaction Status Date / Time No Known Allergies Allergy Verified 06/28/20 09:47 Home Medications Home Medications Medication Instructions Recorded Confirmed Type aspirin 81 mg PO QAM #17 tab 03/22/20 06/28/20 Rx clopidogrel 75 mg PO QAM #30 tab 03/22/20 06/28/20 Rx Pharmacist Discharge Consult 1 ea N/A UD PRN #1 ea 06/22/20 06/27/20 Rx [Pharmacist Discharge Med Rec Consult] amlodipine 5 mg PO DAILY #30 tab 06/22/20 06/28/20 Rx atorvastatin 80 mg PO DAILY #30 tab 06/22/20 06/28/20 Rx clonidine HCl 0.1 mg PO Q4H PRN #10 tab 06/22/20 06/28/20 Rx enoxaparin 40 mg SUBCUT QAM 30 Days #12 ml 06/22/20 06/28/20 Rx gabapentin 600 mg PO TID #90 tab 06/22/20 06/28/20 Rx melatonin 3 mg PO HS PRN #30 tab 06/22/20 06/28/20 Rx metoprolol succinate 25 mg PO DAILY #30 tab 06/22/20 06/28/20 Rx mirtazapine 15 mg PO HS #30 tab 06/22/20 06/28/20 Rx nicotine [Nicoderm CQ] 1 patch TD DAILY #14 ea 06/22/20 06/28/20 Rx trazodone 50 mg PO HS #30 tab 06/22/20 06/28/20 Rx Patient History Medical History Abnormal MRI of head MRI 06/15/20 showed MCA infarcts as well as ring enhancement right posterior lobe. Repeat MRI recommended in 3 months. CAD (coronary artery disease) 2013 - NSTEMI s/p BRUCE to RCA Carotid stenosis, bilateral Depression DM type 2 (diabetes mellitus, type 2) Dyslipidemia History of cerebrovascular accident March 2020; subacute infarct noted to parietal lobe per 06/15/20 MRI Hypertension Ischemic cardiomyopathy EF=45% Surgical History (Updated 06/28/20 @ 13:49 by Katina Feliciano, [facility]) Hx of endarterectomy (06/28/20) Right Carotid Endarterectomy with Bovine Patch Angioplasty Dr. Arita 06/28/2020 S/P drug eluting coronary stent placement Family History Mother , age 68 from metastatic lung cancer Lung cancer Father No problems noted. Social History Smoking Status: Current some day smoker Tobacco Type: Cigarettes Cigarettes Per Day: 5; Second Hand Exposure: No; Do You Dip or Chew Tobacco: Yes; Tobacco Cessation Education Requested by Patient: No Hx Alcohol Use: Yes Alcohol type: beer and hard liquor Hx Substance Use: No Preferred Language: Latvian Communication Ability: Effective Slitter Cut Off Operator Required: No Beliefs That Will Affect Care: None Current Living Situation: Other Current Living Situation Comment: TRANSITION HOUSING current occupational status: previously employed current occupation: [employer] employee Other Information That Helps Us Care for You: No other: 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[employer], 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 Feels Safe at Home: Yes Safety Concerns: Feels Safe At This Time Review of Systems Review of Systems: All systems reviewed & are unremarkable except as noted in HPI & below Physical Exam Physical Exam: Constitutional: No acute distress HEENT: EOMI, PERRLA, right-sided dressing in place along with drain, tongue deviating to the right Respiratory system: Decreased air entry bilaterally, no wheeze, no rhonchi, mild crackles bilateral lower lobes CVS: S1-S2 positive, no murmurs or gallops Abdomen: Soft, nontender, nondistended, positive bowel sounds x4 Extremities: +2 pulses bilaterally radialis/ dorsalis pedis, no cyanosis, no edema Neuro: Awake alert oriented x3, patient is able to move all extremities appropriately, strength 5 out of 5 all extremities. Psych: Normal mood and affect G/U: No Rushing Skin: no rashes, warm and dry Lymphatic: no cervical or axillary lymphadenopathy Results & Data Results & [facility] ([facility]) Vital Signs (Past 12 Hours) Vital Signs Temp Pulse Pulse Pulse Resp BP BP 06/28/20 17:30 69 12 134/69 06/28/20 16:12 37 C 83 18 06/28/20 16:00 36.6 C 80 74 20 06/28/20 15:40 36.8 C 80 22 140/66 06/28/20 15:05 77 16 126/48 L 06/28/20 14:55 37.2 C 69 17 123/46 L 06/28/20 14:45 74 18 154/55 H 06/28/20 14:35 73 17 152/52 H 06/28/20 14:25 74 12 162/59 H 06/28/20 14:15 77 12 150/61 H 06/28/20 14:05 76 12 154/59 H 06/28/20 13:55 81 12 161/63 H 06/28/20 13:45 36.2 C L 69 16 140/63 06/28/20 09:58 36.7 C 49 L 20 177/92 H BP BP Pulse Ox 06/28/20 17:30 98 06/28/20 16:12 136/67 133/66 99 06/28/20 16:00 115/73 98 06/28/20 15:40 97 06/28/20 15:05 99 06/28/20 14:55 100 06/28/20 14:45 100 06/28/20 14:35 100 06/28/20 14:25 100 06/28/20 14:15 100 06/28/20 14:05 100 06/28/20 13:55 100 06/28/20 13:45 163/80 H 100 06/28/20 09:58 100 Coding Level of Care Code Critical Care 1st 30-74 mins Diagnoses Stenosis of right internal carotid artery with cerebral infarction I63.231 Chronic ischemic right MCA stroke I69.30 Time Spent (min) 41
[2020-06-28 18:38] LABS: Basophils # (auto) 0.01 K/uL (0-0.2); Basophils % (auto) 0.1 %; Eosinophils # (auto) 0.01 K/uL (0-0.5); Eosinophils % (auto) 0.1 %; Hematocrit (blood only) 38.9 % (42-52); Immature Granulocytes # (auto) 0.09 K/uL (0.00-0.02); Immature Granulocytes % (auto) 0.6 %; Lymphocytes # (auto) 1.02 K/uL (1.2-3.4); Lymphocytes % (auto) 6.8 %; Mean Platelet Volume 10.2 fL (7.4-10.4); Monocytes # (auto) 0.38 K/uL (0.11-0.59); Monocytes % (auto) 2.5 %; Neutrophils # (auto) 13.46 K/uL (1.4-6.5); Neutrophils % (auto) 89.9 %; Platelet Count 170 K/uL (130-400); RDW Coefficient of Variation 14.2 % (11.5-14.5); RDW Standard Deviation 46.8 fL (36.4-46.3); Red Blood Count 4.37 M/uL (4.7-6.1); White Blood Count 14.97 K/uL (4.8-10.8)
[2020-06-28 19:00] LABS: Albumin Level 3.5 gm/dl (3.4-5.0); BUN Creatinine Ratio 13.9 (10-20); Calcium 9.5 mg/dl (8.5-10.1); Creatinine Clr Calc Pharmacy 74.1 ml/min; Est GFR (African American) 82.6; Est GFR (Non-African American) 71.3; Potassium 4.3 mmol/L (3.5-5.1)
[2020-06-28 19:03] LABS: Bilirubin,Total 0.4 mg/dl (0.2-1); Globulin 3.4 gm/dl (2.5-4.0); Total Protein 6.9 gm/dl (6.4-8.2)
[2020-06-28] MEDS ORDERED: cloNIDine HCL 0.1 MG TAB PO ONE (19:03)
[2020-06-28] MEDS ORDERED: TRAZODONE HCL 50 MG TAB PO SCH (21:00)
[2020-06-28] MEDS ORDERED: MIRTAZAPINE TAB 15 MG TAB PO SCH (21:00)
[2020-06-28] MEDS: PANTOprazole 40 MG in SYRINGE 0 ML IV SCH (21:31)
[2020-06-28] MEDS: METOPROLOL SUCC 25MG EXT REL TAB PO SCH (21:37)
[2020-06-28] MEDS: OXYCODONE/ACETAMINOPHEN 5mg/325mg TAB PO PRN (21:47)
[2020-06-29] MEDS: LACTATED RINGER'S 1,000 ML IV SCH (02:42)
[2020-06-29 04:36] LABS: Basophils # (auto) 0.01 K/uL (0-0.2); Basophils % (auto) 0.1 %; Eosinophils # (auto) 0.02 K/uL (0-0.5); Eosinophils % (auto) 0.2 %; Hematocrit (blood only) 35.8 % (42-52); Hemoglobin 12.8 g/dL (14.0-18.0); Immature Granulocytes # (auto) 0.03 K/uL (0.00-0.02); Immature Granulocytes % (auto) 0.2 %; Lymphocytes # (auto) 1.62 K/uL (1.2-3.4); Lymphocytes % (auto) 12.8 %; Mean Corpuscular Hemoglobin 31.9 pg (25-34); Mean Corpuscular Hgb Conc 35.8 g/dL (32-36); Mean Corpuscular Volume 89.3 fL (80-100); Mean Platelet Volume 10.8 fL (7.4-10.4); Monocytes # (auto) 0.94 K/uL (0.11-0.59); Monocytes % (auto) 7.4 %; Neutrophils # (auto) 10.01 K/uL (1.4-6.5); Neutrophils % (auto) 79.3 %; Platelet Count 181 K/uL (130-400); RDW Coefficient of Variation 14.3 % (11.5-14.5); Red Blood Count 4.01 M/uL (4.7-6.1); White Blood Count 12.63 K/uL (4.8-10.8)
[2020-06-29 05:22] LABS: BUN Creatinine Ratio 13.8 (10-20); Calcium 8.6 mg/dl (8.5-10.1); Creatinine Clr Calc Pharmacy 89.1 ml/min; Est GFR (African American) 103.2; Est GFR (Non-African American) 89.1
--- NOTE | 2020-06-29 06:56 | Surgery Progress Note ---
Date of Service June 29, 2020 Assessment & Plan Admission and Anticipated Discharge Date Admission Date: A the patient is done well from carotid endarterectomy his blood pressures under control neurologically is intact no major issues therefore we plan to discharge him later today is going to [facility] instructions were given to continue with the aspirin and Plavix that he had preoperatively can take ibuprofen or Tylenol for pain we will see him back in the office in approximately 1 week sooner if there is any other issues Subjective Patient is sitting in a chair without any complaints except he has some soreness in the neck area He states that he is voiding fine and getting back to normal He was able to eat last night without any issues Physical Exam Physical Exam: Patient is alert coherent in no distress Neurologically intact except tongue deviated to the right as expected from traction on the hypoglossal nerve and this will resolve Left upper arm weakness as preop and no deterioration Minimal swelling of the neck incision luis intact drainage from the [place] site was changed a couple times during the night and this morning just some serous sanguinous fluid the [place] drain was removed Results & Data ([facility]) Vital Signs (Past 12 Hours) Vital Signs Temp Pulse Resp BP Pulse Ox 06/29/20 06:00 51 L 13 153/73 H 96 06/29/20 05:00 49 L 19 118/54 L 100 06/29/20 04:00 36.5 C 53 L 17 127/58 L 100 06/29/20 03:00 53 L 16 124/56 L 99 06/29/20 02:00 52 L 9 L 110/51 L 99 06/29/20 01:00 36.7 C 53 L 12 113/56 L 100 06/29/20 00:00 56 L 18 110/60 96 06/28/20 23:31 69 14 133/67 98 06/28/20 23:01 60 8 L 116/58 L 98 06/28/20 23:00 64 13 96 06/28/20 22:30 62 10 L 150/61 H 98 06/28/20 22:01 65 12 157/68 H 99 06/28/20 22:00 70 23 99 06/28/20 21:30 66 12 121/59 L 98 06/28/20 21:00 69 13 122/70 98 06/28/20 20:30 78 14 153/75 H 99 08/13/20 20:16 65 17 142/66 H 100 06/28/20 20:00 36.8 C 78 14 195/91 H 100 06/28/20 19:31 66 24 170/80 H 100 06/28/20 19:00 67 14 137/70 99 PG Care Time/CCT Total # of Minutes Spent Total Time Spent with Patient: Total time spent is greater than 50% in coordination of care (as documented) at patient's floor/unit and/or counseling patient: Coding Level of Care Code None Time Spent (min) 30
--- NOTE | 2020-06-29 07:01 | Discharge Summary ---
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 Clearer Surveying Routine Procedures Performed Operation Date: 06/28/20 10:00 Actual Procedures p Right Carotid Endarterectomy with Bovine Patch Angioplasty(Right) - Castro Arita MD Total Time Total Time Spent Total Time Spent (In Minutes): 30 Discharge Plan Discharge Items Patient Disposition: Home - Self-Care Reason For Visit: Carotid Stenosis, Diabetes Discharge Diagnosis: right carotid endarterectomy Activity: Per Instructions section Lifting: No more than 10 pounds Bathing Comment: you may shower starting 06/29/20; no soaking in tubs/pools Exercise/Sports: Wait until after follow-up appointment Driving/Machine Use: no driving for at least one week. wait until after your follow-up appt. Non-emergency contact: Surgeon Call non-emergency contact if: you have any medication questions, your symptoms worsen, your pain is not controlled, your pain is worsening, your pain is unusual for you, your pain is concerning for you, you have a fever, your temperature is above 101.5, your wound has increased redness, your wound has increased drainage and your wound pain has increased Follow-up/Referrals: Castro Arita MD [Surgeon] - (Please call to schedule follow up in clinic within 1 week) Pedro Pablo Gaspar MD [Primary Care Provider] - Diet: Heart Healthy Add Attending Provider Instructions: You have surgical luis that will be removed at your follow up appointment. You may purchase Tylenol over the counter if needed for pain. Tylenol 650mg orally every 6 hours, as needed for pain. Do not exceed >3grams of Acetaminophen within 24 hours. Pending Studies at Discharge: No Stand-Alone Forms: [employer], Smoking Cessation Medications and DC Order Prescriptions: Continued clopidogrel 75 mg Tablet 75 mg PO QAM Qty: 30 RF: 2 aspirin 81 mg Tablet,Delayed Release (Dr/Ec) 81 mg PO QAM Qty: 17 RF: 0 nicotine [Nicoderm CQ] 14 mg/24 hr patch 24 hour 1 patch TD DAILY Qty: 14 RF: 0 atorvastatin 80 mg tablet 80 mg PO DAILY Qty: 30 RF: 0 metoprolol succinate 25 mg tablet extended release 24 hr 25 mg PO DAILY Qty: 30 RF: 0 trazodone 50 mg Tablet 50 mg PO HS Qty: 30 RF: 0 gabapentin 600 mg Tablet 600 mg PO TID Qty: 90 RF: 0 mirtazapine 15 mg Tablet 15 mg PO HS Qty: 30 RF: 0 melatonin 3 mg Tablet 3 mg PO HS PRN (Reason: insomnia) Qty: 30 RF: 0 Pharmacist Discharge Consult [Pharmacist Discharge Med Rec Consult] 1 ea N/A UD PRN (Reason: stroke) Qty: 1 RF: 0 amlodipine 5 mg Tablet 5 mg PO DAILY Qty: 30 RF: 0 clonidine HCl 0.1 mg tablet 0.1 mg PO Q4H PRN (Reason: persistent systolic BP > 160) Qty: 10 RF: 0 Discontinued enoxaparin 40 mg/0.4 mL Syringe 40 mg subcut QAM 30 Days Qty: 12 RF: 0 Discharge Orders: Discharge Order (Routine); Ordered 06/29/20 Ordered By: Castro Arita Admission Data Admit Date/Time: 06/28/20 13:58 Attending Provider: Castro Arita Admit Provider: Castro Arita Primary Care Provider: Pedro Pablo Gaspar Other Providers: Bruce Chauhan Coding Level of Care Code D/C Day Management <30 mins
--- NOTE | 2020-06-29 07:34 | Anesthesiology Progress Note ---
Date of Service June 29, 2020 Anesthesia Post Procedure Vital Signs Vital Signs: Temp Pulse Pulse Pulse Resp BP BP 06/29/20 07:30 58 L 15 165/72 H 06/29/20 07:00 49 L 12 102/53 L 06/29/20 06:31 50 L 9 L 110/55 L 06/29/20 06:00 51 L 13 153/73 H 06/29/20 05:00 49 L 19 118/54 L 06/29/20 04:00 36.5 C 53 L 17 127/58 L 06/29/20 03:00 53 L 16 124/56 L 06/29/20 02:00 52 L 9 L 110/51 L 06/29/20 01:00 36.7 C 53 L 12 113/56 L 06/29/20 00:00 56 L 18 110/60 06/28/20 23:31 69 14 133/67 06/28/20 23:01 60 8 L 116/58 L 06/28/20 23:00 64 13 06/28/20 22:30 62 10 L 150/61 H 06/28/20 22:01 65 12 157/68 H 06/28/20 22:00 70 23 06/28/20 21:30 66 12 121/59 L 06/28/20 21:00 69 13 122/70 06/28/20 20:30 78 14 153/75 H 06/28/20 20:16 65 17 142/66 H 06/28/20 20:00 36.8 C 78 14 195/91 H 06/28/20 19:31 66 24 170/80 H 06/28/20 19:00 67 14 137/70 06/28/20 17:30 37.0 C 69 74 20 134/69 06/28/20 17:00 36.9 C 84 20 06/28/20 16:30 36.8 C 82 20 06/28/20 16:12 37 C 83 18 06/28/20 16:03 36.8 C 74 20 06/28/20 16:00 36.6 C 80 74 20 06/28/20 15:40 36.8 C 80 22 140/66 06/28/20 15:05 77 16 126/48 L 06/28/20 14:55 37.2 C 69 17 123/46 L 06/28/20 14:45 74 18 154/55 H 06/28/20 14:35 73 17 152/52 H 06/28/20 14:25 74 12 162/59 H 06/28/20 14:15 77 12 150/61 H 06/28/20 14:05 76 12 154/59 H 06/28/20 13:55 81 12 161/63 H 06/28/20 13:45 36.2 C L 69 16 140/63 06/28/20 09:58 36.7 C 49 L 20 177/92 H BP BP Pulse Ox 06/29/20 07:30 98 06/29/20 07:00 98 06/29/20 06:31 97 06/29/20 06:00 96 06/29/20 05:00 100 06/29/20 04:00 100 06/29/20 03:00 99 06/29/20 02:00 99 06/29/20 01:00 100 06/29/20 00:00 96 06/28/20 23:31 98 06/28/20 23:01 98 06/28/20 23:00 96 06/28/20 22:30 98 06/28/20 22:01 99 06/28/20 22:00 99 06/28/20 21:30 98 06/28/20 21:00 98 06/28/20 20:30 99 06/28/20 20:16 100 06/28/20 20:00 100 06/28/20 19:31 100 06/28/20 19:00 99 06/28/20 17:30 124/78 132/74 98 06/28/20 17:00 146/78 H 124/72 96 06/28/20 16:30 154/78 H 146/78 H 98 06/28/20 16:12 136/67 133/66 99 06/28/20 16:03 119/62 115/68 96 06/28/20 16:00 115/73 98 06/28/20 15:40 97 06/28/20 15:05 99 06/28/20 14:55 100 06/28/20 14:45 100 06/28/20 14:35 100 06/28/20 14:25 100 06/28/20 14:15 100 06/28/20 14:05 100 06/28/20 13:55 100 06/28/20 13:45 163/80 H 100 06/28/20 09:58 100 Pain Intensity Right Lateral Neck: Pain Intensity: 5 Notes Mental Status: alert / awake / arousable and participated in evaluation Patient Amnestic to Procedure: Yes Nausea / Vomiting: adequately controlled Pain: adequately controlled Airway Patency, RR, SpO2: stable & adequate BP & HR: stable & adequate Hydration State: stable & adequate Anesthetic Complications: no major complications apparent and Pt Satisfied with anesthetic care
[2020-06-29] MEDS: METOPROLOL SUCC 25MG EXT REL TAB PO SCH (07:53)
[2020-06-29] MEDS: GABAPENTIN 600 MG TAB PO SCH (07:53)
[2020-06-29] MEDS: NICOTINE 14 MG/24 HR PATCH TD SCH (07:54)
[2020-06-29] MEDS: OXYCODONE/ACETAMINOPHEN 5mg/325mg TAB PO PRN (08:06)
[2020-06-29] MEDS ORDERED: ATORVASTATIN 40 MG TAB PO SCH (09:00)
[2020-06-29] MEDS ORDERED: ASPIRIN 81 MG ECTAB PO SCH (09:00)
[2020-06-29] MEDS ORDERED: CLOPIDOGREL BISULFATE 75 MG TAB PO SCH (09:00)
[2020-06-29] MEDS ORDERED: AMLODIPINE BESYLATE 5 MG TAB PO SCH (09:00)
--- NOTE | 2020-06-29 09:01 | Critical Care Progress Note ---
Date of Service June 29, 2020 Assessment & Plan (1) Stenosis of right internal carotid artery with cerebral infarction: --Status post right carotid endarterectomy Monitor blood pressure, keep systolic blood pressure less than 140 Monitor for any signs of bleeding Pain management Continue with Plavix and aspirin --Hypertension Continue with blood pressure medication --Dyslipidemia Continue with statin --Active smoker Advised to quit Continue with nicotine patch --Prophylaxis VTE: IPC's, resume chemical prophylaxis once cleared by surgery GI: Protonix Lines: Peripheral, left radial Diet: Cardiac Plan: Patient hemodynamically neurologically doing well. Drain has been removed from the right neck. Tolerating food. No nausea or vomiting. Stable enough to be downgraded from the ICU. I have personally spent 31 minutes of critical care time in the direct management of this patient. This is a life/limb threatening event. This includes time spent evaluating patient, direct bedside care, chart review, placing orders, interpretation of diagnostic studies, discussion with consultants, patient, and family members, as well as other required patient management activities. This time is exclusive of all separately billable procedures, and teaching time and separate from and in addition to any other critical care service time. Please note the above document was generated using voice recognition software. It may contain grammatical, syntax or spelling errors. (2) Chronic ischemic right MCA stroke: Admission and Anticipated Discharge Date Admission Date: June 28, 2020 Subjective Patient seen and examined at bedside. No acute distress, no adverse events overnight. Blood pressure has been controlled. P.o. medications has been started. Patient is able to tolerate diet. No nausea or vomiting Still complains of mild right neck discomfort but tolerable pain. No headache, no dizziness, no blurry vision. Review of Systems Review of Systems: All systems reviewed & are unremarkable except as noted in HPI & below Physical Exam Physical Exam: Constitutional: No acute distress HEENT: EOMI, PERRLA, right-sided dressing in place,, tongue deviating to the right, drain removed Respiratory system: Decreased air entry bilaterally, no wheeze, no rhonchi, mild crackles bilateral lower lobes CVS: S1-S2 positive, no murmurs or gallops Abdomen: Soft, nontender, nondistended, positive bowel sounds x4 Extremities: +2 pulses bilaterally radialis/ dorsalis pedis, no cyanosis, no edema Neuro: Awake alert oriented x3, patient is able to move all extremities appropriately, strength 5 out of 5 all extremities. Psych: Normal mood and affect G/U: No Rushing Skin: no rashes, warm and dry Lymphatic: no cervical or axillary lymphadenopathy Results & Data Results & Data ([facility]) Vital Signs (Past 12 Hours) Vital Signs Temp Pulse Resp BP Pulse Ox 06/29/20 08:30 62 10 L 162/74 H 98 06/29/20 08:01 60 15 133/59 L 100 06/29/20 08:00 65 06/29/20 07:59 59 L 15 133/66 99 06/29/20 07:30 58 L 15 165/72 H 98 06/29/20 07:00 49 L 12 102/53 L 98 06/29/20 06:31 50 L 9 L 110/55 L 97 06/29/20 06:00 51 L 13 153/73 H 96 06/29/20 05:00 49 L 19 118/54 L 100 06/29/20 04:00 36.5 C 53 L 17 127/58 L 100 06/29/20 03:00 53 L 16 124/56 L 99 06/29/20 02:00 52 L 9 L 110/51 L 99 06/29/20 01:00 36.7 C 53 L 12 113/56 L 100 06/29/20 00:00 56 L 18 110/60 96 06/28/20 23:31 69 14 133/67 98 06/28/20 23:01 60 8 L 116/58 L 98 06/28/20 23:00 64 13 96 06/28/20 22:30 62 10 L 150/61 H 98 06/28/20 22:01 65 12 157/68 H 99 06/28/20 22:00 70 23 99 06/28/20 21:30 66 12 121/59 L 98 06/29/20 04:11 06/29/20 05:26 Coding Level of Care Code Critical Care 1st 30-74 mins Diagnoses Stenosis of right internal carotid artery with cerebral infarction I63.231 Chronic ischemic right MCA stroke I69.30 Time Spent (min) 31
[2020-06-29] MEDS: PANTOprazole 40 MG in SYRINGE 0 ML IV SCH (12:16)
== END 2020-06-29 12:15 | disposition home health service (06) | DRG 39 ==
LOC: ASU 09:08 → 1E 13:58

== ENCOUNTER 2020-08-20 13:19 | Observation (INO) ==
[2020-08-20] MEDS ORDERED: ACETAMINOPHEN 1,000 MG/100 ML VIAL IV STA (13:33)
[2020-08-20] MEDS ORDERED: STAT IV Infusion **Titration per Protocol STA (13:33)
[2020-08-20] MEDS ORDERED: MAGNESIUM SULFATE / D5W 1 GM/100 ML BAG IV ONE (13:33)
[2020-08-20 14:12] LABS: Basophils # (auto) 0.05 K/uL (0-0.2); Basophils % (auto) 0.5 %; Eosinophils % (auto) 3.9 %; Hematocrit (blood only) 41.5 % (42-52); Hemoglobin 15.3 g/dL (14.0-18.0); Immature Granulocytes # (auto) 0.05 K/uL (0.00-0.02); Immature Granulocytes % (auto) 0.5 %; Lymphocytes % (auto) 25.4 %; Mean Corpuscular Hemoglobin 32.2 pg (25-34); Mean Corpuscular Hgb Conc 36.9 g/dL (32-36); Mean Corpuscular Volume 87.4 fL (80-100); Mean Platelet Volume 10.7 fL (7.4-10.4); Monocytes # (auto) 0.84 K/uL (0.11-0.59); Monocytes % (auto) 8.2 %; Neutrophils % (auto) 61.5 %; Platelet Count 209 K/uL (130-400); RDW Coefficient of Variation 13.3 % (11.5-14.5); RDW Standard Deviation 42.5 fL (36.4-46.3); Red Blood Count 4.75 M/uL (4.7-6.1); White Blood Count 10.24 K/uL (4.8-10.8)
--- NOTE | 2020-08-20 14:15 | Emergency Department Note ---
History of Present Illness General Chief complaint: Pain (Generalized) Stated complaint: blurred vision, pain-extremities Time Seen by Provider: 08/20/20 13:25 Source: patient, EMS, RN notes reviewed and old records reviewed Mode of arrival: EMS Limitations: no limitations History of Present Illness Provider complaint: Hypertension Onset (ago): hour(s) 6 Location: upper extremity, lower extremity, left and right Radiation: non-radiation Severity: moderate Pain Consistency: + constant Maximum Pain Intensity: 7 Current Pain Intensity: 7 Quality: + aching Relieved By: + immobilization Exacerbated By: + movement Associated symptoms: + other (pain to extremities) Treatments prior to arrival: other (Norvasc) Home Medications Home Medications Medication Instructions Recorded Confirmed Type aspirin 81 mg PO QAM #17 tab 03/22/20 08/20/20 Rx clopidogrel 75 mg PO QAM #30 tab 03/22/20 08/20/20 Rx metoprolol succinate 25 mg PO DAILY #30 tab 06/22/20 08/20/20 Rx nicotine [Nicoderm CQ] 1 patch TD DAILY #14 ea 06/22/20 08/20/20 Rx metformin 500 mg tablet 500 mg PO BID 08/03/20 08/20/20 History amlodipine 5 mg PO DAILY PRN 08/20/20 08/20/20 History atorvastatin 20 mg PO DAILY 08/20/20 08/20/20 History docusate sodium [Colace] 100 mg PO BID PRN 08/20/20 08/20/20 History duloxetine 30 mg PO DAILY 08/20/20 08/20/20 History fluoxetine 40 mg PO DAILY 08/20/20 08/20/20 History gabapentin 300 mg PO TID 08/20/20 08/20/20 History lisinopril 30 mg PO DAILY 08/20/20 08/20/20 History oxycodone 5 mg PO Q6H PRN 08/20/20 08/20/20 History sennosides [Senokot] 8.6 mg PO HS PRN 08/20/20 08/20/20 History trazodone 100 mg PO HS 08/20/20 08/20/20 History Allergies Allergy/AdvReac Type Severity Reaction Status Date / Time No Known Allergies Allergy Verified 08/20/20 17:27 Past Med/Surg History Medical History (Updated 08/21/20 @ 16:09 by Hi Limon MD) Abnormal MRI of head MRI 06/15/20 showed MCA infarcts as well as ring enhancement right posterior lobe. Repeat MRI recommended in 3 months. CAD (coronary artery disease) 2014 - NSTEMI s/p BRUCE to RCA Carotid stenosis, bilateral Depression DM type 2 (diabetes mellitus, type 2) Dyslipidemia History of cerebrovascular accident March 2020; subacute infarct noted to parietal lobe per 06/15/20 MRI Hypertension Ischemic cardiomyopathy EF=45% Surgical History Hx of endarterectomy (06/28/20) Right Carotid Endarterectomy with Bovine Patch Angioplasty Dr. Arita 0 06/28/2020 S/P drug eluting coronary stent placement Family History Mother , age 68 from metastatic lung cancer Lung cancer Father No problems noted. Social History Smoking Status: Former smoker Tobacco Type: Cigarettes Cigarettes Per Day: 5; Smoking End Date: 08/16/2020; Second Hand Exposure: Yes; Do You Dip or Chew Tobacco: No; Tobacco Cessation Education Requested by Patient: No Hx Alcohol Use: No Hx Substance Use: No Preferred Language: Swedish Communication Ability: Effective Hand Trimmer Required: No Beliefs That Will Affect Care: None marital status: Single Current Living Situation: Alone Current Living Situation Comment: TRANSITION HOUSING current occupational status: previously employed current occupation: [employer] employee Other Information That Helps Us Care for You: No other: 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 Feels Safe at Home: Yes Safety Concerns: Feels Safe At This Time Assistive Devices: None Review of Systems A total of 10 systems reviewed and were otherwise negative Physical Exam Vital Signs Vital Signs - 24 hr 08/20/20 16:47 08/20/20 17:00 08/20/20 17:30 Pulse Rate 62 62 67 Pulse Rate [Left] Pulse Rate from SpO2 Sensor 63 61 61 Respiratory Rate 19 18 18 Respiratory Effort / Characteristics Blood Pressure 142/72 H 136/76 131/80 Blood Pressure [Left Arm] Blood Pressure Mean 79 91 96 Blood Pressure Mean [Left Arm] Blood Pressure Position [Left Arm] Pulse Oximetry 98 97 98 Oxygen Delivery Method Room Air 08/20/20 17:45 10/05/20 18:00 08/20/20 18:50 Pulse Rate 61 65 67 Pulse Rate [Left] Pulse Rate from SpO2 Sensor 61 63 66 Respiratory Rate 12 17 21 Respiratory Effort / Characteristics Blood Pressure 139/87 150/86 H 175/90 H Blood Pressure [Left Arm] Blood Pressure Mean 108 117 131 Blood Pressure Mean [Left Arm] Blood Pressure Position [Left Arm] Pulse Oximetry 96 98 99 Oxygen Delivery Method 08/20/20 18:56 08/20/20 19:00 Pulse Rate 56 L Pulse Rate [Left] 60 Pulse Rate from SpO2 Sensor 56 L Respiratory Rate 16 15 Respiratory Effort / Characteristics Non-Labored Spontaneous Blood Pressure 158/91 H Blood Pressure [Left Arm] 175/90 H Blood Pressure Mean 103 Blood Pressure Mean [Left Arm] 118 Blood Pressure Position [Left Arm] Lying Pulse Oximetry 98 96 Oxygen Delivery Method Room Air VITAL SIGNS - Vital signs and nursing notes were reviewed. GENERAL - 49-year-old male appearing stated age who is in no acute distress. Communicates well with provider and answers questions appropriately. SKIN - Without rashes. HEAD - NC/AT. EYES - PERRL with EOMI bilaterally. Sclera anicteric. Palpebral conjunctiva pink and moist with no injection noted. EARS - No deformities of external structures noted on gross examination bilaterally. No pain elicited with palpation of the tragus bilaterally. External auditory canals without discharge or otorrhea. Tympanic membranes pearly justin without retraction or bulging. No fluid or purulent material visualized behind the TM. Handle of malleus, umbo, cone of light, pars tensa/flaccid all easily visualized. NOSE - Midline and without cyanosis. No epistaxis or purulent drainage noted. Septum midline without deviation or septal hematoma noted. MOUTH/OROPHARYNX - Without perioral cyanosis. Buccal mucosa pink and moist and without leukoplakia. Tongue midline with equal elevation of palate bilaterally. No tonsillar hypertrophy, erythema, or exudates noted. dentition noted. NECK - Neck with FROM. Supple to palpation. lymphadenopathy noted. No nuchal rigidity. LUNGS - Chest wall symmetric without accessory muscle use, intercostals retractions, or central cyanosis. Normal vesicular breath sounds CTA B/L. No wheezes, rales, or rhonchi appreciated. CARDIAC - RRR with S1/S2. No murmur, rubs, or gallops appreciated. ABDOMEN - Abdominal contour without pulsations or visible masses. BS normoactive all four quadrants. No tenderness, palpable masses, hepatosplenomegaly, or ascites noted. EXTREMITIES - No clubbing or peripheral cyanosis. No pretibial edema present. +3/5 radial, posterior tibial, and dorsalis pedis pulses palpated throughout. +5/5 strength noted in UE/LE bilaterally. NEUROLOGIC - Cranial nerves II through XII grossly intact. Sensory intact to light touch throughout. Patellar reflexes +2/4. PSYCH - A&Ox3 and cooperates fully with examiner. Pt is very pleasant and interacts well with examiner. Course Administered Medications Amlodipine Besylate (Amlodipine Besylate 5 Mg Tab) 5 mg [facility] [place] Stop: 09/19/20 19:44 Last Admin: 08/21/20 09:33 Dose: Not Given Documented by: [id number] Admin: 08/20/20 20:22 Dose: 5 mg Documented by: [id number] Aspirin (Aspirin 81 Mg Ectab) 81 mg PO [facility] Stop: 09/20/20 08:59 Last Admin: 08/21/20 08:40 Dose: 81 mg Documented by: [id number] Atorvastatin Calcium (Atorvastatin 20 Mg Tab) 20 mg PO DAILY [facility] Stop: 09/20/20 08:59 Last Admin: 08/21/20 08:37 Dose: 20 mg Documented by: [id number] Clopidogrel Bisulfate (Clopidogrel Bisulfate 75 Mg Tab) 75 mg PO QAM [facility] Stop: 09/20/20 08:59 Last Admin: 08/21/20 08:40 Dose: 75 mg Documented by: [id number] Docusate Sodium (Docusate Sodium 100 Mg Cap) 100 mg PO BID [facility] Stop: 09/19/20 20:59 Last Admin: 08/21/20 08:40 Dose: 100 mg Documented by: [id number] Admin: 08/20/20 22:06 Dose: Not Given Documented by: [id number] Duloxetine HCl (Duloxetine Hcl 30 Mg Cap) 30 mg PO QAM [facility] Stop: 09/19/20 19:44 Last Admin: 08/21/20 08:41 Dose: 30 mg Documented by: [id number] Admin: 08/20/20 20:22 Dose: 30 mg Documented by: [id number] Enoxaparin Sodium (Enoxaparin Inj 40 Mg/0.4 Ml Syr) 40 mg SQ Q24H [facility] Stop: 09/19/20 20:59 Last Admin: 08/20/20 22:04 Dose: Not Given Documented by: [id number] Fluoxetine HCl (Fluoxetine Hcl 20 Mg Cap) 40 mg PO DAILY [facility] Stop: 09/20/20 08:59 Last Admin: 08/21/20 08:41 Dose: 40 mg Documented by: [id number] Insulin Aspart (Insulin Aspart 100 Units/Ml 3 Ml Pen) 0 units SC ACHS YADIRA Stop: 09/19/20 20:59 Last Admin: 08/21/20 17:15 Dose: Not Given Documented by: [id number] Cosigned by: [id number] Admin: 08/21/20 12:25 Dose: Not Given Documented by: [id number] Cosigned by: [id number] Admin: 08/21/20 08:13 Dose: Not Given Documented by: [id number] Cosigned by: [id number] Admin: 08/20/20 21:58 Dose: Not Given Documented by: [id number] Cosigned by: [id number] Lisinopril (Lisinopril 10 Mg Tab) 30 mg PO DAILY [facility] Stop: 09/20/20 08:59 Last Admin: 08/21/20 09:33 Dose: Not Given Documented by: [id number] Metoprolol Succinate (Metoprolol Succ 25mg Ext Rel Tab) 25 mg PO DAILY [facility] Stop: 09/20/20 08:59 Last Admin: 08/21/20 08:45 Dose: Not Given Documented by: [id number] Miscellaneous (Remove Nicoderm Patch) 1 ea N/A QAM [facility] Stop: 09/20/20 08:59 Last Admin: 08/21/20 08:40 Dose: 1 ea Documented by: [id number] Nicotine (Nicotine 14 Mg/24 Hr Patch) 14 mg TD [facility] Stop: 09/20/20 08:59 Last Admin: 08/21/20 08:38 Dose: 14 mg Documented by: [id number] Sennosides (Senna 8.6 Mg Tab) 8.6 mg PO [facility] Stop: 09/20/20 08:59 Last Admin: 08/21/20 08:39 Dose: 8.6 mg Documented by: [id number] Trazodone HCl (Trazodone Hcl 100 Mg Tab) 100 mg PO HS [facility] Stop: 09/19/20 20:59 Last Admin: 08/20/20 22:07 Dose: 100 mg Documented by: [id number] Discontinued Medications Hydromorphone HCl (Hydromorphone Inj 0.5 Mg/0.5 Ml Syr) 0.5 mg IV Q12H PRN PRN Reason: Severe Pain Stop: 09/03/20 19:02 Last Admin: 08/21/20 08:04 Dose: 0.5 mg Documented by: [id number] Magnesium Sulfate/Dextrose (Magnesium Sulfate / D5w) 1 gm in 100 mls @ 50 m ls/hr IV ONE ONE Stop: 08/20/20 15:32 Last Infusion: 08/20/20 16:00 Dose: 0 mls/hr Documented by: [id number] Admin: 08/20/20 14:00 Dose: 50 mls/hr Documented by: [id number] Acetaminophen (Ofirmev) 1,000 mg in 100 mls @ 400 mls/hr IV NOW STA Stop: 08/20/20 13:47 Last Infusion: 08/20/20 14:12 Dose: 0 mls/hr Documented by: [id number] Admin: 08/20/20 13:53 Dose: 400 mls/hr Documented by: [id number] Nicardipine HCl 25 mg/ Sodium (Chloride) 250 mls @ 50 mls/hr IV .Q5H YADIRA; Protocol Stop: 09/19/20 13:44 Last Admin: 08/20/20 23:23 Dose: Not Given Documented by: [id number] Titration: 08/20/20 19:32 Dose: 0 mg/hr, 0 mls/hr Documented by: [id number] Admin: 08/20/20 13:58 Dose: 5 mg/hr, 50 mls/hr Documented by: [id number] Cosigned by: [id number] Ioversol (Optiray 320 125ml) 119 ml IV ONCE ONE Stop: 08/20/20 16:41 Last Admin: 08/20/20 16:41 Dose: 119 ml Documented by: [id number] Oxycodone HCl (Oxycodone Hcl Ir 5 Mg Tab (Immediate Release)) 5 mg PO Q6H PRN PRN Reason: Moderate Pain Stop: 09/03/20 19:02 Last Admin: 08/21/20 05:04 Dose: 5 mg Documented by: [id number] Critical Care Time I have personally spent greater than 30 minutes of critical care time in the direct management of this patient. This includes bedside care, interpretation of diagnostic studies, and testing, discussion with consultants, patient, and family members, and other required patient management activities. This 30 minutes is in excess of all separately billable procedures. Medical Decision Making Differential Diagnosis Infection, dehydration, metabolic abnormality, hypo/hyperglycemia, electrolyte disturbance, anemia, hypoxia, cardiac sources, intracerebral event, toxicologic, neurologic, as well as other pathologies. Medical Records Attestation: I reviewed the patient's medical records. Home Medications Current Medication List: was personally reviewed by me Laboratory Data Attestation: I reviewed the patient's lab results. Result diagrams: 08/21/20 06:28 08/21/20 06:28 Lab Results 08/20/20 08/20/20 08/20/20 Range/Units 13:50 13:50 13:50 WBC 10.24 (4.8-10.8) K/uL RBC 4.75 (4.7-6.1) M/uL Hgb 15.3 (14.0-18.0) g/dL Hct 41.5 L (42-52) % MCV 87.4 (80-100) fL MCH 32.2 (25-34) pg MCHC 36.9 H (32-36) g/dL RDW Std Deviation 42.5 (36.4-46.3) fL RDW Coeff of Dione 13.3 (11.5-14.5) % Plt Count 209 (130-400) K/uL MPV 10.7 H (7.4-10.4) fL Immature Gran % (Auto) 0.5 % Neut % (Auto) 61.5 % Lymph % (Auto) 25.4 % Gregory % (Auto) 8.2 % Eos % (Auto) 3.9 % Baso % (Auto) 0.5 % Neut # (Auto) 6.30 (1.4-6.5) K/uL Lymph # (Auto) 2.60 (1.2-3.4) K/uL Gregory # (Auto) 0.84 H (0.11-0.59) K/uL Eos # (Auto) 0.40 (0-0.5) K/uL Baso # (Auto) 0.05 (0-0.2) K/uL Immature Gran # (Auto) 0.05 H (0.00-0.02) K/uL ESR (0-14) mm/hr PT 11.4 (9.0-12.0) Seconds INR 1.1 (0.9-1.1) APTT 29.7 (21.0-31.0) Seconds PTT Ratio 1.1 Sodium 141 (136-145) mmol/L Potassium 3.7 (3.5-5.1) mmol/L Chloride 111 H (98-107) mmol/L Carbon Dioxide 25 (21-32) mmol/L Anion Gap 5.0 (3-11) BUN 10 (7-18) mg/dl Creatinine 1.15 (0.6-1.4) mg/dl Est Cr Clr Drug Dosing 70.1 ml/min Est GFR ( Amer) 86.1 Est GFR (Non-Af Amer) 74.3 BUN/Creatinine Ratio 9.0 L (10-20) Glucose 87 (70-99) mg/dl Estimat Average Glucose mg/dl Hemoglobin A1c (4.5-5.6) % Hgb A1c Pathologist Com Calcium 9.6 (8.5-10.1) mg/dl Magnesium 1.9 (1.8-2.4) mg/dl Total Bilirubin 0.5 (0.2-1) mg/dl AST 11 L (15-37) U/L ALT 15 (12-78) U/L Alkaline Phosphatase 71 (45-117) U/L CK-MB (CK-2) < 1.0 (0.5-3.6) ng/ml Troponin I < 0.015 (0-0.045) ng/ml C-Reactive Protein (0-0.29) mg/dl Total Protein 7.8 (6.4-8.2) gm/dl Albumin 3.6 (3.4-5.0) gm/dl Globulin 4.2 H (2.5-4.0) gm/dl Albumin/Globulin Ratio 0.9 (0.9-2) TSH (0.300-4.500) uIu/ml RPR (Nonreactive) 08/20/20 08/20/20 08/20/20 Range/Units 13:50 13:50 13:50 WBC (4.8-10.8) K/uL RBC (4.7-6.1) M/uL Hgb (14.0-18.0) g/dL Hct (42-52) % MCV (80-100) fL MCH (25-34) pg MCHC (32-36) g/dL RDW Std Deviation (36.4-46.3) fL RDW Coeff of Dione (11.5-14.5) % Plt Count (130-400) K/uL MPV (7.4-10.4) fL Immature Gran % (Auto) % Neut % (Auto) % Lymph % (Auto) % Gregory % (Auto) % Eos % (Auto) % Baso % (Auto) % Neut # (Auto) (1.4-6.5) K/uL Lymph # (Auto) (1.2-3.4) K/uL Gregory # (Auto) (0.11-0.59) K/uL Eos # (Auto) (0-0.5) K/uL Baso # (Auto) (0-0.2) K/uL Immature Gran # (Auto) (0.00-0.02) K/uL ESR 33 H (0-14) mm/hr PT (9.0-12.0) Seconds INR (0.9-1.1) APTT (21.0-31.0) Seconds PTT Ratio Sodium (136-145) mmol/L Potassium (3.5-5.1) mmol/L Chloride (98-107) mmol/L Carbon Dioxide (21-32) mmol/L Anion Gap (3-11) BUN (7-18) mg/dl Creatinine (0.6-1.4) mg/dl Est Cr Clr Drug Dosing ml/min Est GFR ( Amer) Est GFR (Non-Af Amer) BUN/Creatinine Ratio (10-20) Glucose (70-99) mg/dl Estimat Average Glucose 94 mg/dl Hemoglobin A1c 4.9 (4.5-5.6) % Hgb A1c Pathologist Com Calcium (8.5-10.1) mg/dl Magnesium (1.8-2.4) mg/dl Total Bilirubin (0.2-1) mg/dl AST (15-37) U/L ALT (12-78) U/L Alkaline Phosphatase (45-117) U/L CK-MB (CK-2) (0.5-3.6) ng/ml Troponin I (0-0.045) ng/ml C-Reactive Protein 0.86 H (0-0.29) mg/dl Total Protein (6.4-8.2) gm/dl Albumin (3.4-5.0) gm/dl Globulin (2.5-4.0) gm/dl Albumin/Globulin Ratio (0.9-2) TSH 0.899 (0.300-4.500) uIu/ml RPR (Nonreactive) 08/20/20 Range/Units 13:50 WBC (4.8-10.8) K/uL RBC (4.7-6.1) M/uL Hgb (14.0-18.0) g/dL Hct (42-52) % MCV (80-100) fL MCH (25-34) pg MCHC (32-36) g/dL RDW Std Deviation (36.4-46.3) fL RDW Coeff of Idone (11.5-14.5) % Plt Count (130-400) K/uL MPV (7.4-10.4) fL Immature Gran % (Auto) % Neut % (Auto) % Lymph % (Auto) % Gregory % (Auto) % Eos % (Auto) % Baso % (Auto) % Neut # (Auto) (1.4-6.5) K/uL Lymph # (Auto) (1.2-3.4) K/uL Gregory # (Auto) (0.11-0.59) K/uL Eos # (Auto) (0-0.5) K/uL Baso # (Auto) (0-0.2) K/uL Immature Gran # (Auto) (0.00-0.02) K/uL ESR (0-14) mm/hr PT (9.0-12.0) Seconds INR (0.9-1.1) APTT (21.0-31.0) Seconds PTT Ratio Sodium (136-145) mmol/L Potassium (3.5-5.1) mmol/L Chloride (98-107) mmol/L Carbon Dioxide (21-32) mmol/L Anion Gap (3-11) BUN (7-18) mg/dl Creatinine (0.6-1.4) mg/dl Est Cr Clr Drug Dosing ml/min Est GFR ( Amer) Est GFR (Non-Af Amer) BUN/Creatinine Ratio (10-20) Glucose (70-99) mg/dl Estimat Average Glucose mg/dl Hemoglobin A1c (4.5-5.6) % Hgb A1c Pathologist Com Calcium (8.5-10.1) mg/dl Magnesium (1.8-2.4) mg/dl Total Bilirubin (0.2-1) mg/dl AST (15-37) U/L ALT (12-78) U/L Alkaline Phosphatase (45-117) U/L CK-MB (CK-2) (0.5-3.6) ng/ml Troponin I (0-0.045) ng/ml C-Reactive Protein (0-0.29) mg/dl Total Protein (6.4-8.2) gm/dl Albumin (3.4-5.0) gm/dl Globulin (2.5-4.0) gm/dl Albumin/Globulin Ratio (0.9-2) TSH (0.300-4.500) uIu/ml RPR Nonreactive (Nonreactive) Imaging Data Radiologist's Impression: [place], [place] [phone] CT Scan Report Patient: EDNA TAYLORAdmit Date: 08/20/20 MR#: [id number]: [address] Acct ID:[id number]: Date: 1970[facility] Zip: [place] [address] Age: 49Location: ED Sex: MRoom/Bed: Att Phy:Diagnosis: blurred vision, pain-extremities Jahaira Phy: Pedro Pablo Gaspar, MDService Date: 08/20/20 Fam Phy:Interpreting Phy: Roland Mejias MD Admit Phy: Ordering Phy: Hi Limon MD cc: ~ CT head/brain wo con CLINICAL HISTORY: Stroke evaluation HYPERTENSION. NEUROPATHY. And foot pain COMPARISON STUDY: Noncontrast study dated 06/15/2020 TECHNIQUE: Axial CT of the brain is performed from the vertex to the skull base. IV contrast was not administered for this examination. A dose lowering technique was utilized adhering to the principles of ALARA. CT DOSE: FINDINGS: No intra or extra-axial mass lesions are visualized. There is no CT evidence of acute cortical infarction. There is no evidence of midline shift. There is no acute hemorrhage. No calvarial fractures are visualized. There are moderate white matter hypodensities likely on a small vessel basis. These are greater than expected for age. There are old right hemispheric infarcts in the distribution of the right middle cerebral artery. There is no evidence of pathologic ventricular dilatation. There is no evidence of acute sinusitis IMPRESSION: 1. No acute intracranial findings 2. Old right MCA territory cerebral infarcts 3. Moderate white matter disease, likely on a small vessel basis and greater than expected for age ACT 112: Negative or not required by law. Electronically signed by: Roland Mejias M.D. 08/20/2020 4:49 PM Dictated: 08/20/201646 Transcribed: 08/20/201646 [place], [place] [phone] CT Scan Report Patient: EDNA TAYLORAdmit Date: 08/20/20 MR#: [id number]: [address] Acct ID:[id number]: Date: 1970[facility] Zip: [place] [address] Age: 49Location: ED Sex: MRoom/Bed: Att Phy:Diagnosis: blurred vision, pain-extremities Jahaira Phy: Pedro Pablo Gaspar, MDService Date: 08/20/20 Fam Phy:Interpreting Phy: Rufino Jo Admit Phy: Ordering Phy: Hi Limon MD cc: ~ CT angio neck with con, CT angio head w con CLINICAL HISTORY: 49 years-old Male with Stroke evaluation. Acute strokelike symptoms COMPARISON STUDY: Head CT of same day, brain MRI 06/15/2020, CTA neck 06/19/2020, CTA head 03/19/2020. TECHNIQUE: Following the IV administration of Optiray 320, CT angiogram of the head and neck was performed from the aortic arch to the skull apex. Images are reviewed in the axial, sagittal, and coronal planes. 3-D MIPS images are created and assessed. IV contrast was administered without complication. All measurements were calculated based on NASCET criteria. A dose lowering technique was utilized adhering to the principles of ALARA. CT DOSE: 1186.82 mGy.cm FINDINGS: Mixed plaque of the thoracic aortic arch. Aberrant course of the right subclavian artery. The innominate and image bilateral subclavian arteries appear patent. Moderate mixed plaque of the common carotid arteries. Unchanged 60% luminal narrowing involves the proximal cervical segment left ICA, image 235 series 6 secondary to prominent atheromatous plaque. Prominent calcified plaque involving the cavernous and supraclinoid segments of the left is redemonstrated resulting in approximately 50% luminal narrowing of the left cavernous segment on image 91 series 5, unchanged. Postoperative changes on the right compatible with interval endarterectomy. The right ICA is now widely patent. Calcified plaque involving the right cavernous and supraclinoid segments redemonstrated without high-grade stenosis. The bilateral middle and anterior cerebral arteries are widely patent. Cerebral venous sinuses are also patent. No abnormal intracranial enhancement. Slightly dominant left vertebral artery. The vertebral arteries are patent and unremarkable. The basilar artery is also patent and unremarkable. The posterior cerebral arteries are patent and unremarkable. Multiple remote appearing right cerebellar hemispheric infarcts are redemonstrated. Please refer to head CT of same day for further details. Mild emphysema. Partially imaged patchy groundglass opacities of the right upper lobe. No large thyroid nodule or adenopathy. Bones appear intact. Mild degenerative changes of the spine. Multiple dental caries and periapical cysts incidentally noted. IMPRESSION: 1. Interval right-sided carotid endarterectomy. The right internal carotid artery is now widely patent. 2. Unchanged 60% luminal narrowing involving the proximal cervical segment left ICA secondary to mixed atheromatous and atherosclerotic plaque. 3. Unchanged 50% luminal narrowing involves the cavernous segment left ICA secondary to calcified plaque. 4. 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 5. Please refer to head CT of same day for additional findings. ACT 112: Negative or not required by law. The above report was generated using voice recognition software. It may contain grammatical, syntax or spelling errors. Electronically signed by: Parag Jo M.D. 08/20/2020 5:00 PM Dictated: 08/20/201647 Transcribed: 08/20/201647 [place], [place] [phone] XRay Report Patient: EDNA TAYLORAdmit Date: 08/20/20 MR#: [id number]: [address] Acct ID:[id number]: Date: 1970ty Zip: [place] [address] Age: 49Location: ED Sex: MRoom/Bed: Att Phy:Diagnosis: blurred vision, pain-extremities Jahaira Phy: Pedro Pablo Gaspar, MDService Date: 08/20/20 Fam Phy:Interpreting Phy: Rufino Jo Admit Phy: Ordering Phy: Hi Limon MD cc: ~ XR chest 1V portable HISTORY: 49 years-old Male Pt c/o HTN acute hypertension COMPARISON: Chest radiograph 06/21/2020 TECHNIQUE: Portable AP view of the chest FINDINGS: Cardiomediastinal and hilar silhouettes are within normal limits. Calcified plaque of the thoracic aortic arch. There is no pneumothorax, pleural effusion, airspace consolidation or overt pulmonary edema. Bones of the chest appear grossly intact. IMPRESSION: No acute process. ACT 112: Negative or not required by law. The above report was generated using voice recognition software. It may contain grammatical, syntax or spelling errors. Electronically signed by: Parag Jo M.D. 08/20/2020 2:21 PM Dictated: 08/20/201419 Transcribed: 08/20/201419 ECG Data Attestation: I personally reviewed and interpreted this ECG as follows: Indication: + weakness Rate (beats per minute): 67 Rhythm: + normal sinus ECG [place]: + Normal ECG ST segments: no ST depression and no ST elevation Comparison ECG Date: from (06/20/2020) Change: no significant change Blood Pressure Blood Pressure Findings: Elevated blood pressure MDM Narrative This is a 49-year-old male who presents back to the emergency department over concerns about his blood pressure. The patient reports he took his blood pressure this morning and found it to be elevated. He took Norvasc and then called an ambulance to bring him to the emergency department. Upon arrival to the emergency department he is complaining of neuropathy pain. In the meanwhile because the patient's blood pressure was elevated and he had already taken Norvasc he was started on a nicardipine drip. I did discuss the case with the hospitalist service who did agreed admit the patient. Patient is in agreement with the treatment plan. Patient was seen and evaluated as above in room A12. Review was performed of nursing notes and vital signs. I did review pertinent previous visits and patient history. After obtaining a thorough history and physical examination the above work up was performed. An order was placed for continuous cardiac monitoring. The monitor shows a rate of 50 with Normal Sinus rhythm. The patient was evaluated during the global COVID-19 pandemic, and that diagnosis was suspected/considered upon their initial presentation. Their evaluation, treatment and testing was consistent with current guidelines for patients who present with complaints or symptoms that may be related to COVID-1 9. Impression & Plan Hypertensive urgency, H/O: CVA (cerebrovascular accident) Discharge Plan Visit Data Chief Complaint: Pain (Generalized) Stated Complaint: blurred vision, pain-extremities ED Provider: Hi Limon Discharge Problem: Hypertensive urgency, H/O: CVA (cerebrovascular accident) Patient Disposition: Admitted As Inpatient Discharge Instructions Interventions: ED Discharge Assessment Last Done: 08/20/20 20:17
--- NOTE | 2020-08-20 14:23 | XRay Report ---
XR chest 1V portable HISTORY: 49 years-old Male Pt c/o HTN acute hypertension COMPARISON: Chest radiograph 06/21/2020 TECHNIQUE: Portable AP view of the chest FINDINGS: Cardiomediastinal and hilar silhouettes are within normal limits. Calcified plaque of the thoracic ao rtic arch. There is no pneumothorax, pleural effusion, airspace consolidation or overt pulmonary rob a. Bones of the chest appear grossly intact. IMPRESSION: No acute process. ACT 112: Negative or not required by law. The above report was generated using voice recognition software. It may contain grammatical, syntax o r spelling errors. Electronically signed by: Parag Jo M.D. 08/20/2020 2:21 PM
[2020-08-20 14:25] LABS: INR 1.1 (0.9-1.1); Partial Thromboplastin Ratio 1.1; Partial Thromboplastin Time 29.7 Seconds (21.0-31.0); Prothrombin Time 11.4 Seconds (9.0-12.0)
[2020-08-20 14:28] LABS: Alanine Aminotransferase 15 U/L (12-78); Albumin Level 3.6 gm/dl (3.4-5.0); Aspartate Aminotransferase 11 U/L (15-37); Blood Urea Nitrogen 10 mg/dl (7-18); Calcium 9.6 mg/dl (8.5-10.1); Carbon Dioxide 25 mmol/L (21-32); Chloride 111 mmol/L (98-107); Creatinine Clr Calc Pharmacy 70.1 ml/min; Est GFR (African American) 86.1; Est GFR (Non-African American) 74.3; Glucose 87 mg/dl (70-99); Magnesium 1.9 mg/dl (1.8-2.4); Potassium 3.7 mmol/L (3.5-5.1); Sodium 141 mmol/L (136-145)
[2020-08-20 14:36] LABS: Albumin Globulin Ratio 0.9 (0.9-2); Alkaline Phosphatase 71 U/L (45-117); Bilirubin,Total 0.5 mg/dl (0.2-1); Creatine Kinase MB < 1.0 ng/ml (0.5-3.6); Globulin 4.2 gm/dl (2.5-4.0); Total Protein 7.8 gm/dl (6.4-8.2); Troponin I < 0.015 ng/ml (0-0.045)
[2020-08-20] MEDS ORDERED: OPTIRAY 320 125ml IV ONE (16:40)
--- NOTE | 2020-08-20 16:50 | CT Scan Report ---
CT head/brain wo con CLINICAL HISTORY: Stroke evaluation HYPERTENSION. NEUROPATHY. And foot pain COMPARISON STUDY: Noncontrast study dated 06/15/2020 TECHNIQUE: Axial CT of the brain is performed from the vertex to the skull base. IV contrast was not administered for this examination. A dose lowering technique was utilized adhering to the principles of ALARA. CT DOSE: FINDINGS: No intra or extra-axial mass lesions are visualized. There is no CT evidence of acute cortical infarc tion. There is no evidence of midline shift. There is no acute hemorrhage. No calvarial fractures ar e visualized. There are moderate white matter hypodensities likely on a small vessel basis. These are greater than expected for age. There are old right hemispheric infarcts in the distribution of the right middle ce rebral artery. There is no evidence of pathologic ventricular dilatation. There is no evidence of acute sinusitis IMPRESSION: 1. No acute intracranial findings 2. Old right MCA territory cerebral infarcts 3. Moderate white matter disease, likely on a small vessel basis and greater than expected for age ACT 112: Negative or not required by law. Electronically signed by: Roland Mejias M.D. 08/20/2020 4:49 PM
--- NOTE | 2020-08-20 17:01 | CT Scan Report ---
CT angio neck with con, CT angio head w con CLINICAL HISTORY: 49 years-old Male with Stroke evaluation. Acute strokelike symptoms COMPARISON STUDY: Head CT of same day, brain MRI 06/15/2020, CTA neck 06/19/2020, CTA head 03/19/2020. TECHNIQUE: Following the IV administration of Optiray 320, CT angiogram of the head and neck was perf ormed from the aortic arch to the skull apex. Images are reviewed in the axial, sagittal, and coronal planes. 3-D MIPS images are created and assessed. IV contrast was administered without complication. All measurements were calculated based on NASCET criteria. A dose lowering technique was utilized a dhering to the principles of ALARA. CT DOSE: 1186.82 mGy.cm FINDINGS: Mixed plaque of the thoracic aortic arch. Aberrant course of the right subclavian artery. The innomin ate and image bilateral subclavian arteries appear patent. Moderate mixed plaque of the common caroti d arteries. Unchanged 60% luminal narrowing involves the proximal cervical segment left ICA, image 23 5 series 6 secondary to prominent atheromatous plaque. Prominent calcified plaque involving the courtney nous and supraclinoid segments of the left is redemonstrated resulting in approximately 50% luminal n arrowing of the left cavernous segment on image 91 series 5, unchanged. Postoperative changes on the right compatible with interval endarterectomy. The right ICA is now widely patent. Calcified plaque i nvolving the right cavernous and supraclinoid segments redemonstrated without high-grade stenosis. Th e bilateral middle and anterior cerebral arteries are widely patent. Cerebral venous sinuses are also patent. No abnormal intracranial enhancement. Slightly dominant left vertebral artery. The vertebral arteries are patent and unremarkable. The basi lar artery is also patent and unremarkable. The posterior cerebral arteries are patent and unremarkab le. Multiple remote appearing right cerebellar hemispheric infarcts are redemonstrated. Please refer to h ead CT of same day for further details. Mild emphysema. Partially imaged patchy groundglass opacities of the right upper lobe. No large thyroid nodule or adenopathy. Bones appear intact. Mild degenerati ve changes of the spine. Multiple dental caries and periapical cysts incidentally noted. IMPRESSION: 1. Interval right-sided carotid endarterectomy. The right internal carotid artery is now widely paten t. 2. Unchanged 60% luminal narrowing involving the proximal cervical segment left ICA secondary to mixe d atheromatous and atherosclerotic plaque. 3. Unchanged 50% luminal narrowing involves the cavernous segment left ICA secondary to calcified kourtney que. 4. 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 5. Please refer to head CT of same day for additional findings. ACT 112: Negative or not required by law. The above report was generated using voice recognition software. It may contain grammatical, syntax o r spelling errors. Electronically signed by: Parag Jo M.D. 08/20/2020 5:00 PM
--- NOTE | 2020-08-20 17:10 | Electrocardiogram Report ---
Test Reason : Blood Pressure : / mmHG Vent. Rate : 067 BPM Atrial Rate : 067 BPM P-R Int : 172 ms QRS Dur : 090 ms QT Int : 388 ms P-R-T Axes : 027 007 065 degrees QTc Int : 409 ms Poor data quality, interpretation may be adversely affected Normal sinus rhythm Possible Left atrial enlargement Nonspecific ST abnormality Abnormal ECG When compared with ECG of 20-JUN-2020 13:46, Criteria for Inferior infarct are no longer Present Confirmed by Vaibhav Espinoza ([id number]) on 08/20/2020 5:10:19 PM Referred By: Confirmed By:Luis Espinoza
[2020-08-20] MEDS ORDERED: OXYCODONE HCL IR 5 MG TAB (IMMEDIATE RELEASE) PO PRN (19:03)
[2020-08-20] MEDS ORDERED: HYDROmorphone INJ 0.5 MG/0.5 ML SYR IV PRN (19:03)
[2020-08-20] MEDS ORDERED: ACETAMINOPHEN 325 MG TAB PO PRN (19:03)
[2020-08-20] MEDS ORDERED: POLYETHYLENE (MIRALAX) 17 GM PACK PO PRN (19:05)
[2020-08-20 19:44] LABS: C Reactive Protein 0.86 mg/dl (0-0.29); Thyroid Stimulating Hormone 0.899 uIu/ml (0.300-4.500)
[2020-08-20] MEDS ORDERED: GLUCOSE 10 TABS/TUBE PO PRN (19:56)
[2020-08-20] MEDS ORDERED: DEXTROSE 50% 50 ML SYRINGE IV PRN (19:56)
[2020-08-20] MEDS ORDERED: GLUCOSE 40% GEL 15 GM TUBE PO PRN (19:56)
[2020-08-20] MEDS ORDERED: CARBOHYDRATES FOR HYPOGLYCEMIA PO PRN (19:56)
[2020-08-20] MEDS ORDERED: GLUCAGON FOR INJ 1 MG VIAL SQ PRN (19:56)
--- NOTE | 2020-08-20 19:56 | History & Physical Report ---
Date of Service August 20, 2020 Assessment & Plan (1) Neuropathic pain: -This is a 49 year old male with complicated social history (As per 08/08/[address] Gaspar that patient was laid off by [facility] in 2018 and had been homeless for 2 years prior to establishing primary care with Maddison and Dr. Gaspar in March 2020 and had been accompanied by as case briefer Dotty Lorenzo in the July 2020 visit) and patient reported that since March 2020 he has been experiencing pain of the hands and feet bilaterally. He also reported he was told by eye doctor that he has optic neuropathy as well. -Patient initially had presented to the ED on 08/17/2020 with same complaints of bilateral arm and feet pain. as per the 08/17/2020 ED notes "Patient was given Dilaudid as well as Toradol for the pain. The patient's blood pressure was found to be grossly elevated however he did not take his blood pressure medications today. Patient was given his blood pressure medications." -when patient presented to the ED on 08/20/2020 again for pain of the extremities, he was again found to be hypertensive and his ED treatment included nicardipine drip -Neck CTA did not find evidence of acute stroke -suspect that patient's neuropathy is related to diabetes mellitus but his records do not show uncontrolled diabetes. patient reports also no longer on any gabapentin and did start yet on Cymbalta -start Cymbalta for now, prn pain medications of acetaminophen, oxycodone and dilaudid based on level of pain severity -check TSH (normal), vitamin B12, folic acid RPR -Neurology consult History of CVA (cerebrovascular accident) in the past with hemiplagia as per outpatient notes History of right-sided carotid endarterectomy in the past as per outpatient notes -continue aspirin and plavix -PT/OT evaluations (2) Hypertensive urgency: -possibly could be from not taking blood pressure medications as prescribed -continue lisinopril 30 mg daily and also amlodipine 5 mg daily and statin History of Myocardial Infraction with Heart failure, systolic, due to CAD in the past as per outpatient notes (3) DM type 2 (diabetes mellitus, type 2): -Hemoglobin A1c in April 2020 controlled as 6.2 -check hemoglobin A1c -hold home dose metformin while inpatient, giving sliding scale insulin for now based on blood sugar glucose Tobacco use -nicotine patch DVT prophylaxis: Lovenox Case management needs: (As per 08/08/[address] Gaspar that patient was laid off by [facility] in 2018 and had been homeless for 2 years prior to establishing primary care with Maddison and Dr. Gaspar in March 2020 and had been accompanied by as case briefer Dotty Ventura in the July 2020 visit) Full Code My colleague Dr. Louie will be following the patient starting on 08/21/2020 History of Present Illness Primary Care Provider: Pedro Pablo Gaspar MD Allergies Allergy/AdvReac Type Severity Reaction Status Date / Time No Known Allergies Allergy Verified 08/20/20 17:27 Home Medications Home Medications Medication Instructions Recorded Confirmed Type aspirin 81 mg PO QAM #17 tab 03/22/20 08/20/20 Rx clopidogrel 75 mg PO QAM #30 tab 03/22/20 08/20/20 Rx metoprolol succinate 25 mg PO DAILY #30 tab 06/22/20 08/20/20 Rx nicotine [Nicoderm CQ] 1 patch TD DAILY #14 ea 06/22/20 08/20/20 Rx metformin 500 mg tablet 500 mg PO BID 08/03/20 08/20/20 History amlodipine 5 mg PO DAILY PRN 08/20/20 08/20/20 History atorvastatin 20 mg PO DAILY 08/20/20 08/20/20 History docusate sodium [Colace] 100 mg PO BID PRN 08/20/20 08/20/20 History duloxetine 30 mg PO DAILY 08/20/20 08/20/20 History fluoxetine 40 mg PO DAILY 08/20/20 08/20/20 History gabapentin 300 mg PO TID 08/20/20 08/20/20 History lisinopril 30 mg PO DAILY 08/20/20 08/20/20 History oxycodone 5 mg PO Q6H PRN 08/20/20 08/20/20 History sennosides [Senokot] 8.6 mg PO HS PRN 08/20/20 08/20/20 History trazodone 100 mg PO HS 08/20/20 08/20/20 History Past Med/Surg History Medical History Abnormal MRI of head MRI 06/15/20 showed MCA infarcts as well as ring enhancement right posterior lobe. Repeat MRI recommended in 3 months. CAD (coronary artery disease) 2013 - NSTEMI s/p BRUCE to RCA Carotid stenosis, bilateral Depression DM type 2 (diabetes mellitus, type 2) Dyslipidemia History of cerebrovascular accident March 2020; subacute infarct noted to parietal lobe per 06/15/20 MRI Hypertension Ischemic cardiomyopathy EF=45% Surgical History Hx of endarterectomy (06/28/20) Right Carotid Endarterectomy with Bovine Patch Angioplasty Dr. Arita 06/28/2020 S/P drug eluting coronary stent placement Family History Mother , age 68 from metastatic lung cancer Lung cancer Father No problems noted. 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[employer], 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 Feels Safe at Home: Yes Assistive Devices: None Review of Systems Review of Systems: All systems reviewed & are unremarkable except as noted in Subjective Physical Exam Constitutional: cooperative Eyes: PERRL, conjunctivae normal, anicteric sclerae EOM intact bilaterally ENMT: external ear and nose normal, oropharynx normal Neck: normal visual inspection Respiratory: normal respiratory effort, lungs clear to auscultation Cardiovascular: Rate/Rhythm: + bradycardic Gastrointestinal (Abdomen): normal bowel sounds, soft, nontender, no hepatosplenomegaly Musculoskeletal: Head/Neck/Chest: normocephalic and head atraumatic Neurologic: PERRL, EOMI, accommodation nl, no face palsy, no dysarthria moves all extremities patient reports of tingling pain of hands and feet bilaterally Psychiatric: A+Ox3, euthymic affect Results & Data Results & Data ([facility]) Vital Signs (Past 12 Hours) Vital Signs Temp Pulse Resp BP BP Pulse Ox 08/20/20 18:00 65 17 150/86 H 98 08/20/20 17:45 61 12 139/87 96 08/20/20 17:30 67 18 131/80 98 08/20/20 17:00 62 18 136/76 97 08/20/20 16:47 62 19 142/72 H 98 08/20/20 15:30 67 16 161/92 H 08/20/20 15:20 69 13 08/20/20 15:15 69 20 156/87 H 08/20/20 15:10 68 12 08/20/20 15:00 66 16 157/85 H 08/20/20 14:50 67 17 08/20/20 14:49 154/93 H 08/20/20 14:45 69 18 154/93 H 08/20/20 14:40 65 21 08/20/20 14:30 66 19 164/91 H 172/92 H 08/20/20 14:25 65 19 172/98 H 08/20/20 14:20 65 18 187/102 H 08/20/20 14:19 67 15 181/102 H 08/20/20 14:15 182/94 H 08/20/20 14:10 67 17 182/94 H 08/20/20 14:05 66 13 179/92 H 08/20/20 14:03 68 15 179/92 H 98 08/20/20 14:02 68 11 L 193/98 H 98 08/20/20 13:54 68 17 212/111 H 08/20/20 13:28 36.8 C 64 18 215/112 H 97
[2020-08-20] MEDS: AMLODIPINE BESYLATE 5 MG TAB PO SCH (20:22)
[2020-08-20] MEDS: DULOXETINE HCL 30 MG CAP PO SCH (20:22)
[2020-08-20] MEDS: INSULIN ASPART 100 UNITS/ML 3 ML PEN SC SCH (21:58)
[2020-08-20] MEDS: ENOXAPARIN INJ 40 MG/0.4 ML SYR SQ SCH (22:04)
[2020-08-20] MEDS: DOCUSATE SODIUM 100 MG CAP PO SCH (22:06)
[2020-08-20] MEDS: TRAZODONE HCL 100 MG TAB PO SCH (22:07)
[2020-08-20 23:09] LABS: Folate (Folic Acid) 9.85 ng/ml (>5.38)
[2020-08-21 06:23] LABS: Estimated Average Glucose 94 mg/dl; Hemoglobin A1C 4.9 % (4.5-5.6)
[2020-08-21 06:56] LABS: Basophils # (auto) 0.04 K/uL (0-0.2); Basophils % (auto) 0.5 %; Eosinophils # (auto) 0.49 K/uL (0-0.5); Eosinophils % (auto) 6.1 %; Hematocrit (blood only) 41.5 % (42-52); Hemoglobin 14.6 g/dL (14.0-18.0); Immature Granulocytes # (auto) 0.03 K/uL (0.00-0.02); Immature Granulocytes % (auto) 0.4 %; Lymphocytes # (auto) 2.01 K/uL (1.2-3.4); Lymphocytes % (auto) 25.2 %; Mean Corpuscular Hemoglobin 31.3 pg (25-34); Mean Corpuscular Hgb Conc 35.2 g/dL (32-36); Mean Corpuscular Volume 88.9 fL (80-100); Mean Platelet Volume 10.3 fL (7.4-10.4); Monocytes # (auto) 0.63 K/uL (0.11-0.59); Monocytes % (auto) 7.9 %; Neutrophils # (auto) 4.78 K/uL (1.4-6.5); Neutrophils % (auto) 59.9 %; Platelet Count 195 K/uL (130-400); RDW Coefficient of Variation 13.5 % (11.5-14.5); RDW Standard Deviation 43.8 fL (36.4-46.3); Red Blood Count 4.67 M/uL (4.7-6.1); White Blood Count 7.98 K/uL (4.8-10.8)
[2020-08-21 07:30] LABS: Albumin Level 3.5 gm/dl (3.4-5.0); Creatinine Clr Calc Pharmacy 61.1 ml/min; Est GFR (African American) 72.9; Est GFR (Non-African American) 62.9; Magnesium 2.4 mg/dl (1.8-2.4); Potassium 3.9 mmol/L (3.5-5.1)
[2020-08-21 07:33] LABS: Albumin Globulin Ratio 0.9 (0.9-2); Bilirubin,Total 0.7 mg/dl (0.2-1); Globulin 3.9 gm/dl (2.5-4.0); Phosphorus 3.6 mg/dl (2.5-4.9); Total Protein 7.4 gm/dl (6.4-8.2)
[2020-08-21] MEDS: INSULIN ASPART 100 UNITS/ML 3 ML PEN SC SCH ×4 (08:13→22:01)
[2020-08-21] MEDS: ATORVASTATIN 20 MG TAB PO SCH (08:37)
[2020-08-21] MEDS: NICOTINE 14 MG/24 HR PATCH TD SCH (08:38)
[2020-08-21] MEDS: SENNA 8.6 MG TAB PO SCH (08:39)
[2020-08-21] MEDS: ASPIRIN 81 MG ECTAB PO SCH (08:40)
[2020-08-21] MEDS: DOCUSATE SODIUM 100 MG CAP PO SCH ×2 (08:40→20:11)
[2020-08-21] MEDS: CLOPIDOGREL BISULFATE 75 MG TAB PO SCH (08:40)
[2020-08-21] MEDS: DULOXETINE HCL 30 MG CAP PO SCH (08:41)
[2020-08-21] MEDS: FLUOXETINE HCL 20 MG CAP PO SCH (08:41)
--- NOTE | 2020-08-21 08:51 | Hospitalist Progress Note ---
Date of Service August 21, 2020 Assessment & Plan (1) Hypertensive urgency: Patient reported he only missed his meds last within the last week BP normal this AM Will continue home lisinopril Per Card outpatient note 06/14/20, patient has labile BP that does appear to be situational Was prescribed amlodipine 5mg prn for BP >180/90 Will monitor BP very closely today. Will hold amlodipine this AM as BP is currently 100-110/60 May give it later if needed (2) DM type 2 (diabetes mellitus, type 2): Hemoglobin A1c was 7.2 in 03/20/20 Hemoglobin A1c - 4.9 Well controlled Hold home dose metformin while inpatient, giving sliding scale insulin for now based on blood sugar glucose (3) Neuropathic pain: Neck CTA did not find evidence of acute stroke Likely related to DM Continue duloxetine Oxycodone and dilaudid discontinued TSH, B12, folate normal (4) CAD (coronary artery disease): S/p PCI Ischemic cardiomyopathy EF of 45% Continue ASA, plavix, statin Follow up Cardiology outpatient (5) Carotid stenosis, bilateral: S/p right carotid endarterectomy Unchanged disease in left ICA per Neck CTA Continue ASA, plavix, statin (6) H/O: CVA (cerebrovascular accident): Continue ASA,plavix,s tatin (7) DVT prophylaxis: Lovenox sq Admission and Anticipated Discharge Date Admission Date: August 20, 2020 Subjective Patient seen and examined. Reported he was not feeling very well yesterday. Was anxious and had worsening of his blurry vision as well as increased pain in hands and feet. He checked his BP and it was 200s/100s. He denied any headache, dizziness Denied any fevers, nausea, vomiting Denied any chest pain, SOB, cough Denied any abd pain, diarrhea, constipation Denied any dysuria, freq, urgency, incontinence Reports chronic blurry vision. Stated he saw an eye doctor and got a prescription for glasses but have not got it yet. Stated he has an appt with surgical coder on 08/31 to get his glasses Stated he has had chronic neuropathic pain in hands and feet. Occasional paresthesia. He said his gabapentin was recently changed to cymbalta which he has gotten from his pharm but yet to commence. Physical Exam Constitutional: well developed and + well hydrated; no acute distress Eyes: PERRL, conjunctivae normal, anicteric sclerae ENMT: external ear and nose normal, oropharynx normal Neck: Surgical scar on right side of neck Respiratory: normal respiratory effort, lungs clear to auscultation Cardiovascular: Rate/Rhythm: regular rhythm and + bradycardic (Pulse rate 59) Heart Sounds: normal S1 and normal S2 Extremities: no edema Gastrointestinal (Abdomen): normal bowel sounds, soft, nontender, no hepatosplenomegaly Musculoskeletal: no cyanosis or clubbing, extremities motor strength 5/5 Neurologic: PERRL, EOMI, accommodation nl, no face palsy, no dysarthria Sensation and motor exam grossly intact Psychiatric: A+Ox3, euthymic affect Results & Data Results & Data ([facility]) Vital Signs (Past 12 Hours) Vital Signs Temp Pulse Pulse Resp BP BP Pulse Ox 08/21/20 07:25 37.0 C 57 L 18 115/63 94 08/20/20 23:00 36.8 C 60 18 109/65 97 08/20/20 21:08 37.0 C 54 L 20 171/93 H 97 Laboratory Results Laboratory Results - last 24 hr 08/20/20 08/20/20 08/20/20 13:50 13:50 13:50 WBC 10.24 RBC 4.75 Hgb 15.3 Hct 41.5 L MCV 87.4 MCH 32.2 MCHC 36.9 H RDW Std Deviation 42.5 RDW Coeff of Dione 13.3 Plt Count 209 MPV 10.7 H Immature Gran % (Auto) 0.5 Neut % (Auto) 61.5 Lymph % (Auto) 25.4 [place] % (Auto) 8.2 Eos % (Auto) 3.9 Baso % (Auto) 0.5 Neut # (Auto) 6.30 Lymph # (Auto) 2.60 [place] # (Auto) 0.84 H Eos # (Auto) 0.40 Baso # (Auto) 0.05 Immature Gran # (Auto) 0.05 H ESR PT 11.4 INR 1.1 APTT 29.7 PTT Ratio 1.1 Sodium 141 Potassium 3.7 Chloride 111 H Carbon Dioxide 25 Anion Gap 5.0 BUN 10 Creatinine 1.15 Est Cr Clr Drug Dosing 70.1 Est GFR ( Amer) 86.1 Est GFR (Non-Af Amer) 74.3 BUN/Creatinine Ratio 9.0 L Glucose 87 POC Glucose Estimat Average Glucose Hemoglobin A1c Hgb A1c Pathologist Com Calcium 9.6 Phosphorus Magnesium 1.9 Total Bilirubin 0.5 AST 11 L ALT 15 Alkaline Phosphatase 71 CK-MB (CK-2) < 1.0 Troponin I < 0.015 C-Reactive Protein Total Protein 7.8 Albumin 3.6 Globulin 4.2 H Albumin/Globulin Ratio 0.9 Vitamin B12 Folate TSH RPR 08/20/20 08/20/20 08/20/20 13:50 13:50 13:50 WBC RBC Hgb Hct MCV MCH MCHC RDW Std Deviation RDW Coeff of Dione Plt Count MPV Immature Gran % (Auto) Neut % (Auto) Lymph % (Auto) [place] % (Auto) Eos % (Auto) Baso % (Auto) Neut # (Auto) Lymph # (Auto) [place] # (Auto) Eos # (Auto) Baso # (Auto) Immature Gran # (Auto) ESR 33 H PT INR APTT PTT Ratio Sodium Potassium Chloride Carbon Dioxide Anion Gap BUN Creatinine Est Cr Clr Drug Dosing Est GFR ( Amer) Est GFR (Non-Af Amer) BUN/Creatinine Ratio Glucose POC Glucose Estimat Average Glucose 94 Hemoglobin A1c 4.9 Hgb A1c Pathologist Com Calcium Phosphorus Magnesium Total Bilirubin AST ALT Alkaline Phosphatase CK-MB (CK-2) Troponin I C-Reactive Protein 0.86 H Total Protein Albumin Globulin Albumin/Globulin Ratio Vitamin B12 Folate TSH 0.899 RPR 08/20/20 08/20/20 08/20/20 13:50 20:16 21:47 WBC RBC Hgb Hct MCV MCH MCHC RDW Std Deviation RDW Coeff of Dione Plt Count MPV Immature Gran % (Auto) Neut % (Auto) Lymph % (Auto) [place] % (Auto) Eos % (Auto) Baso % (Auto) Neut # (Auto) Lymph # (Auto) [place] # (Auto) Eos # (Auto) Baso # (Auto) Immature Gran # (Auto) ESR PT INR APTT PTT Ratio Sodium Potassium Chloride Carbon Dioxide Anion Gap BUN Creatinine Est Cr Clr Drug Dosing Est GFR ( Amer) Est GFR (Non-Af Amer) BUN/Creatinine Ratio Glucose POC Glucose 115 H Estimat Average Glucose Hemoglobin A1c Hgb A1c Pathologist Com Calcium Phosphorus Magnesium Total Bilirubin AST ALT Alkaline Phosphatase CK-MB (CK-2) Troponin I C-Reactive Protein Total Protein Albumin Globulin Albumin/Globulin Ratio Vitamin B12 630 Folate 9.85 TSH RPR Nonreactive 08/21/20 08/21/20 08/21/20 06:28 06:28 07:56 WBC 7.98 RBC 4.67 L Hgb 14.6 Hct 41.5 L MCV 88.9 MCH 31.3 MCHC 35.2 RDW Std Deviation 43.8 RDW Coeff of Dione 13.5 Plt Count 195 MPV 10.3 Immature Gran % (Auto) 0.4 Neut % (Auto) 59.9 Lymph % (Auto) 25.2 [place] % (Auto) 7.9 Eos % (Auto) 6.1 Baso % (Auto) 0.5 Neut # (Auto) 4.78 Lymph # (Auto) 2.01 [place] # (Auto) 0.63 H Eos # (Auto) 0.49 Baso # (Auto) 0.04 Immature Gran # (Auto) 0.03 H ESR PT INR APTT PTT Ratio Sodium 142 Potassium 3.9 Chloride 110 H Carbon Dioxide 29 Anion Gap 4.0 BUN 11 Creatinine 1.32 Est Cr Clr Drug Dosing 61.1 Est GFR ( Amer) 72.9 Est GFR (Non-Af Amer) 62.9 BUN/Creatinine Ratio 8.0 L Glucose 100 H POC Glucose 118 H Estimat Average Glucose Hemoglobin A1c Hgb A1c Pathologist Com Calcium 10.0 Phosphorus 3.6 Magnesium 2.4 Total Bilirubin 0.7 AST 11 L ALT 17 Alkaline Phosphatase 68 CK-MB (CK-2) Troponin I C-Reactive Protein Total Protein 7.4 Albumin 3.5 Globulin 3.9 Albumin/Globulin Ratio 0.9 Vitamin B12 Folate TSH RPR
[2020-08-21] MEDS ORDERED: METOPROLOL SUCC 25MG EXT REL TAB PO SCH (09:00)
[2020-08-21] MEDS ORDERED: NICOTINE TD SCH (09:00)
[2020-08-21] MEDS ORDERED: lisinopriL 10 MG TAB PO SCH (09:00)
[2020-08-21] MEDS ORDERED: ACETAMINOPHEN 325 MG TAB PO PRN (09:08)
[2020-08-21] MEDS: AMLODIPINE BESYLATE 5 MG TAB PO SCH (09:33)
--- NOTE | 2020-08-21 16:09 | Consultation Report ---
DATE OF CONSULTATION: 08/21/2020 NEUROLOGY CONSULTATION NOTE A 49-year-old male. CHIEF COMPLAINT: Neuropathic pain. HISTORY OF PRESENT ILLNESS: A 49-year-old male with prior history of being homeless for 2 years, admitted with pain of the hands and feet. He was admitted yesterday from the Emergency Department. He presented to the Emergency Department on 08/17/2020 with the same complaints of bilateral arm and feet pain. He was given Dilaudid as well as Toradol for pain. He was noted to have elevated blood pressures as he was not taking his blood pressure medications. He was given his blood pressure medications upon that ER visit. He then presented on 08/20 once again for similar complaint and was placed on a nicardipine drip for elevated blood pressure. He underwent imaging including a head and neck CTA, which did not show evidence of an acute stroke. He does have a history of diabetes and was previously on gabapentin. Neurology was consulted for further recommendations. ALLERGIES: No known drug allergies. HOME MEDICATIONS: Aspirin 81 mg daily, Plavix 75 mg daily, Lopressor 25 mg daily, Nicoderm patch, metformin 500 mg twice daily, Norvasc 5 mg daily, Lipitor 20 mg daily, Colace 100 mg as needed, Cymbalta 30 mg daily, fluoxetine 40 mg daily, gabapentin 300 mg 3 times daily, lisinopril 30 mg daily, oxycodone 5 mg as needed, trazodone 100 mg nightly. PAST MEDICAL HISTORY: Type 2 diabetes, hypertension, history of cerebrovascular accident, status post right carotid endarterectomy, tobacco use, coronary artery disease/NSTEMI, status post drug-eluting stent to the right coronary artery, depression, hyperlipidemia, ischemic cardiomyopathy. PAST SURGICAL HISTORY: History of endarterectomy in 06/2020, which was a right carotid endarterectomy. History of a drug-eluting coronary stent placement. FAMILY HISTORY: His mother had metastatic lung cancer and his father had no problems known. SOCIAL HISTORY: He uses cigarettes and smokes 5 cigarettes per day. He drinks beer and hard liquor. He is living at a transition house. 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 REVIEW OF SYSTEMS: All systems reviewed and are unremarkable except as noted: Pain and paresthesias. PHYSICAL EXAMINATION: VITAL SIGNS: Blood pressure 113/60, pulse is 50, respiratory rate 18, temperature is 37.3, oxygen saturation is 97% on room air. CONSTITUTIONAL: He appears normally developed, appears stated age, no distress. HEENT: Head is normocephalic and atraumatic. Normal eyelids and normal conjunctivae. NECK: Supple. LUNGS: Respiratory rate shows normal effort. HEART: Normal cardiac pulses. ABDOMEN: Nondistended. SKIN: No rash or lesion. PSYCHIATRIC: Normal judgment and insight. Normal mood and affect. NEUROLOGIC: He is awake, alert and oriented to person, place, time. Memory is normal. Attention is normal. Knowledge is appropriate. No aphasia, no dysarthria. No visual defect on confrontation. Pupils are round and symmetric. Extraocular muscles are intact. Facial sensation intact. Face is symmetric. Intact hearing. Palate is symmetric. Good shoulder shrug. Tongue is midline. Gait deferred. No ataxia with [id number] testing, intact to light touch in regards to sensation. Muscle tone is normal. Muscle examination shows 5/5 throughout in the upper and lower extremities. 3+ reflexes at the knees. Absent ankle jerks. No ankle clonus. Negative wright bilateral. DIAGNOSTIC TESTING AND LABORATORY VALUES: WBC 7.98, hemoglobin 14.6, platelet count is 195. INR is 1.1. Sodium 142, potassium 3.9, chloride 110, creatinine 1.32, BUN is 11, glucose 100, phosphorus 3.6, magnesium 2.4, AST is 11, ALT 17. CRP is 0.86. Vitamin B12 is 630. Folate is 9.85. TSH is 0.899. Lipase is 379. RPR is nonreactive. Sed rate is 33. Hemoglobin A1c is 4.9, previously in 03/2020 was 7.2. Head and neck CTA showed interval right-sided carotid endarterectomy. The right internal carotid artery is widely patent. Unchanged 60% narrowing involving the proximal cervical segment of the left ICA. Unchanged 50% luminal narrowing involving the cavernous segment of the left ICA. No acute intracranial abnormality. Head CT noncontrast: Unchanged right cerebral infarct compared to the prior study. No new interval findings. MRI of the brain performed on 06/15/2020: Multiple old right hemispheric MCA distribution infarcts, 2 cm focus of restricted water diffusion within the right posterior parietal lobe, likely secondary to subacute infarct. ASSESSMENT AND PLAN: A 49-year-old male with non-insulin dependent type 2 diabetes, currently with a hemoglobin A1c of 4.9. admitted complaint of pain in hands and feet. Concern for possible opioid seeking. Would recommend avoiding narcotic medications as discussed with patient. Agree with starting Cymbalta. Patient was on Gabapentin. Would recommend an outpatient EMG for further evaluation of neuropathy. Please contact with any additional questions or conerns. I discussed EMG with patient and he is agreeable. DWAIN
[2020-08-21] MEDS: TRAZODONE HCL 100 MG TAB PO SCH (20:11)
[2020-08-21] MEDS: ENOXAPARIN INJ 40 MG/0.4 ML SYR SQ SCH (20:12)
[2020-08-22] MEDS ORDERED: ZOLPIDEM TARTRATE 5 MG TAB PO STA (00:14)
[2020-08-22] MEDS: DOCUSATE SODIUM 100 MG CAP PO SCH (08:54)
[2020-08-22] MEDS: FLUOXETINE HCL 20 MG CAP PO SCH (08:55)
[2020-08-22] MEDS: ASPIRIN 81 MG ECTAB PO SCH (08:55)
[2020-08-22] MEDS: NICOTINE 14 MG/24 HR PATCH TD SCH (08:55)
[2020-08-22] MEDS: DULOXETINE HCL 30 MG CAP PO SCH (08:56)
[2020-08-22] MEDS: CLOPIDOGREL BISULFATE 75 MG TAB PO SCH (08:56)
[2020-08-22] MEDS: ATORVASTATIN 20 MG TAB PO SCH (08:56)
[2020-08-22] MEDS: SENNA 8.6 MG TAB PO SCH (08:57)
[2020-08-22] MEDS: INSULIN ASPART 100 UNITS/ML 3 ML PEN SC SCH ×2 (08:58→13:14)
[2020-08-22] MEDS ORDERED: INFLUENZA VIRUS QUAD VACCINE 0.5 ML SYR IM ONE (09:00)
[2020-08-22] MEDS ORDERED: INFLUENZA ADMINISTRATION CHARGE ONE (09:00)
[2020-08-22] MEDS ORDERED: METOPROLOL SUCC 25MG EXT REL TAB PO SCH (09:00)
--- NOTE | 2020-08-22 14:30 | Hospitalist Progress Note ---
Date of Service August 22, 2020 Assessment & Plan (1) Hypertensive urgency: per Dr. Louie's notes: Patient reported he only missed his meds last within the last week Per Card outpatient note 06/14/20, patient has labile BP that does appear to be situational Was prescribed amlodipine 5mg prn for BP >180/90 BP improved 120s/70s HR in this mid 50s, decrease Metoprolol XL to 12.5mg po daily continue Lisinopril 30mg po daily PRN Amlodipine patient counseled regarding BP medications, including parameters advised to take medications regularly, ff up with PCP next week per DC instructions (2) DM type 2 (diabetes mellitus, type 2): Hemoglobin A1c was 7.2 in 03/20/20 Hemoglobin A1c - 4.9 continue Metformin ff up with PCP next week (3) Neuropathic pain: Neck CTA did not find evidence of acute stroke Likely related to DM TSH, B12, folate normal Neurologist Dr. Ashby consulted, recommend Cymbalta 30mg po daily Outpatient EMG for further evaluation of neuropathy (4) CAD (coronary artery disease): s/p PCI Ischemic cardiomyopathy EF of 45% no cardiac symptoms, euvolemic Continue ASA, Plavix, Statin Follow up Cardiology outpatient (5) Carotid stenosis, bilateral: S/p right carotid endarterectomy Unchanged disease in left ICA per Neck CTA Continue ASA, plavix, statin monitor as outpatient (6) H/O: CVA (cerebrovascular accident): Continue ASA,plavix,s tatin (7) DVT prophylaxis: Lovenox sq Disposition d/c home ff up with PCP next week per DC instructions plan of care discussed with patient in detail all questions answered he is understanding, agreeable, comfortable with plan of care Admission and Anticipated Discharge Date Admission Date: August 20, 2020 Subjective ff up for neuropathic pain, etc seen resting in bed, not in distress reports lower leg pain- improving gradually denies weakness or numbness denies chest pain, dyspnea, palpitations, dizziness no other symptoms Review of Systems Review of Systems: All systems reviewed & are unremarkable except as noted in Subjective Physical Exam Physical Exam: General- oriented x 3, not in distress, speaks in sentences with no effort or accessory muscle use Eyes- anicteric Neck- no JVD Lungs- clear breath sounds bilaterally, no rales/wheezes Heart- normal rate, regular rhythm; no murmurs Abdomen- normal bowel sounds, nondistended, soft, nontender Extremities- no pretibial edema, no calf tenderness Neuro- alert, oriented x 3; no gross focal neurologic deficits Skin- warm & dry Results & Data Results & Data ([facility]) Vital Signs (Past 12 Hours) Vital Signs Temp Pulse Pulse Resp BP BP Pulse Ox 08/22/20 11:50 37.1 C 67 20 151/88 H 94 08/22/20 11:25 36.4 C L 65 54 L 20 127/72 95 08/22/20 07:51 36.4 C L 65 20 127/72 95 08/22/20 03:52 36.4 C L 52 L 18 123/68 98 Laboratory Results Laboratory Results - last 24 hr 08/21/20 08/21/20 08/22/20 16:34 20:23 07:28 POC Glucose 94 175 H 116 H 08/22/20 11:18 POC Glucose 140 H
--- NOTE | 2020-08-22 14:47 | Discharge Summary ---
Date of Service August 22, 2020 Admission HPI Per Admitting Provider This is a 49 year old male with complicated social history (As per 08/08/[address] Blackman that patient was laid off by [employer] in 2018 and had been homeless for 2 years prior to establishing primary care with Maddison and Dr. Blackman in March 2020 and had been accompanied by as bilingual patient support caseworker Dotty Lorenzo in the July 2020 visit) and patient reported that since March 2020 he has been experiencing pain of the hands and feet bilaterally. He also reported he was told by eye doctor that he has optic neuropathy as well. -Patient initially had presented to the ED on 08/17/2020 with same complaints of bilateral arm and feet pain. as per the 08/17/2020 ED notes "Patient was given Dilaudid as well as Toradol for the pain. The patient's blood pressure was found to be grossly elevated however he did not take his blood pressure medications today. Patient was given his blood pressure medications." -when patient presented to the ED on 08/20/2020 again for pain of the extremities, he was again found to be hypertensive and his ED treatment included nicardipine drip -Neck CTA did not find evidence of acute stroke -suspect that patient's neuropathy is related to diabetes mellitus but his records do not show uncontrolled diabetes. patient reports also no longer on any gabapentin and did start yet on Cymbalta Admission Exam Per Admitting Provider Constitutional: cooperative Eyes: PERRL, conjunctivae normal, anicteric sclerae EOM intact bilaterally ENMT: external ear and nose normal, oropharynx normal Neck: normal visual inspection Respiratory: normal respiratory effort, lungs clear to auscultation Cardiovascular: Rate/Rhythm: + bradycardic Gastrointestinal (Abdomen): normal bowel sounds, soft, nontender, no hepatosplenomegaly Musculoskeletal: Head/Neck/Chest: normocephalic and head atraumatic Neurologic: PERRL, EOMI, accommodation nl, no face palsy, no dysarthria moves all extremities patient reports of tingling pain of hands and feet bilaterally Psychiatric: A+Ox3, euthymic affect Principal Diagnosis DIABETIC NEUROPATHY Discharge Exam General- oriented x 3, not in distress, speaks in sentences with no effort or accessory muscle use Eyes- anicteric Neck- no JVD Lungs- clear breath sounds bilaterally, no rales/wheezes Heart- normal rate, regular rhythm; no murmurs Abdomen- normal bowel sounds, nondistended, soft, nontender Extremities- no pretibial edema, no calf tenderness Neuro- alert, oriented x 3; no gross focal neurologic deficits Skin- warm & dry Discharge Data Allergies Allergy/AdvReac Type Severity Reaction Status Date / Time No Known Allergies Allergy Verified 08/20/20 17:27 Consultations 08/20/20 17:48 ED Decision to Admit Stat 08/20/20 19:10 Consult Neurology Routine 08/20/20 19:58 Consult Case Management - Discharge Planning Routine Ordered Studies 08/20/20 13:31 CT angio head w con Stat CT angio neck with con Stat COMPARISON STUDY: Head CT of same day, brain MRI 06/15/2020, CTA neck 06/19/2020, CTA head 03/19/2020. TECHNIQUE: Following the IV administration of Optiray 320, CT angiogram of the head and neck was performed from the aortic arch to the skull apex. Images are reviewed in the axial, sagittal, and coronal planes. 3-D MIPS images are created and assessed. IV contrast was administered without complication. All measurements were calculated based on NASCET criteria. A dose lowering technique was utilized adhering to the principles of ALARA. CT DOSE: 1186.82 mGy.cm FINDINGS: Mixed plaque of the thoracic aortic arch. Aberrant course of the right subclavian artery. The innominate and image bilateral subclavian arteries appear patent. Moderate mixed plaque of the common carotid arteries. Unchanged 60% luminal narrowing involves the proximal cervical segment left ICA, image 235 series 6 secondary to prominent atheromatous plaque. Prominent calcified plaque involving the cavernous and supraclinoid segments of the left is redemonstrated resulting in approximately 50% luminal narrowing of the left cavernous segment on image 91 series 5, unchanged. Postoperative changes on the right compatible with interval endarterectomy. The right ICA is now widely patent. Calcified plaque involving the right cavernous and supraclinoid segments redemonstrated without high-grade stenosis. The bilateral middle and anterior cerebral arteries are widely patent. Cerebral venous sinuses are also patent. No abnormal intracranial enhancement. Slightly dominant left vertebral artery. The vertebral arteries are patent and unremarkable. The basilar artery is also patent and unremarkable. The posterior cerebral arteries are patent and unremarkable. Multiple remote appearing right cerebellar hemispheric infarcts are redemonstrated. Please refer to head CT of same day for further details. Mild emphysema. Partially imaged patchy groundglass opacities of the right upper lobe. No large thyroid nodule or adenopathy. Bones appear intact. Mild degenerative changes of the spine. Multiple dental caries and periapical cysts incidentally noted. IMPRESSION: 1. Interval right-sided carotid endarterectomy. The right internal carotid artery is now widely patent. 2. Unchanged 60% luminal narrowing involving the proximal cervical segment left ICA secondary to mixed atheromatous and atherosclerotic plaque. 3. Unchanged 50% luminal narrowing involves the cavernous segment left ICA secondary to calcified plaque. 4. 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 5. Please refer to head CT of same day for additional findings. CT head/brain wo con Stat COMPARISON STUDY: Noncontrast study dated 06/15/2020 FINDINGS: No intra or extra-axial mass lesions are visualized. There is no CT evidence of acute cortical infarction. There is no evidence of midline shift. There is no acute hemorrhage. No calvarial fractures are visualized. There are moderate white matter hypodensities likely on a small vessel basis. These are greater than expected for age. There are old right hemispheric infarcts in the distribution of the right middle cerebral artery. There is no evidence of pathologic ventricular dilatation. There is no evidence of acute sinusitis IMPRESSION: 1. No acute intracranial findings 2. Old right MCA territory cerebral infarcts 3. Moderate white matter disease, likely on a small vessel basis and greater than expected for age Hospital Course (1) Hypertensive urgency: per Dr. Louie's notes: admitted with systolic bp 200s, required Nicardipine drip Patient reported he only missed his meds last within the last week Per Card outpatient note 06/14/20, patient has labile BP that does appear to be situational Was prescribed amlodipine 5mg prn for BP >180/90 usual Metoprolol resumed, Lisinopril not given due to marginal BP on discharge day, BP improved 120s/70s HR in the mid 50s, decrease Metoprolol XL to 12.5mg po daily continue Lisinopril 30mg po daily PRN Amlodipine for bp > 180/90 patient counseled regarding BP medications, including parameters advised to take medications regularly, ff up with PCP next week per DC instructions (2) DM type 2 (diabetes mellitus, type 2): Hemoglobin A1c was 7.2 in 05/05/20 Hemoglobin A1c - 4.9 continue Metformin ff up with PCP next week (3) Neuropathic pain: Neck CTA did not find evidence of acute stroke Likely related to DM TSH, B12, folate normal Neurologist Dr. Ashby consulted, recommend Cymbalta 30mg po daily Outpatient EMG for further evaluation of neuropathy (4) CAD (coronary artery disease): s/p PCI Ischemic cardiomyopathy EF of 45% no cardiac symptoms, euvolemic Continue ASA, Plavix, Statin Follow up Cardiology outpatient (5) Carotid stenosis, bilateral: S/p right carotid endarterectomy Unchanged disease in left ICA per Neck CTA Continue ASA, plavix, statin monitor as outpatient (6) H/O: CVA (cerebrovascular accident): Continue ASA,plavix,s tatin (7) DVT prophylaxis: Lovenox sq Disposition d/c home ff up with PCP next week per DC instructions plan of care discussed with patient in detail all questions answered he is understanding, agreeable, comfortable with plan of care Total Time Total Time Spent Total Time Spent (In Minutes): 50 minutes Discharge Plan Discharge Items Patient Disposition: Home - Home Health Services Reason For Visit: NEUROPATHIC PAIN DIABETES MELLITUS TYPE 2 Discharge Diagnosis: NEUROPATHIC PAIN, SECONDARY TO DIABETES MELLITUS TYPE 2 Activity: Resume your previous activity Activity Comment: GRADUALLY TOLERATED, ALWAYS AMBULATE CAREFULLY Driving/Machine Use: NO DRIVING UNTIL RE-EVALUATED AND ALLOWED BY PRIMARY CARE PHYSICIAN Non-emergency contact: Primary Care Provider Call non-emergency contact if: you have any medication questions, your symptoms worsen, your pain is not controlled, your pain is worsening, your pain is unusual for you, your pain is concerning for you and you have a fever Follow-up/Referrals: Pedro Pablo Blackman MD [Primary Care Provider] - 08/27/20 11:00 am (Date & Time 08/27/2020 11:00 AM Provider Pedro Pablo Blackman MD Department Family [facility] ) Diet: Carb Consistent or DM2 and Heart Healthy Addtl Attending Provider Instructions: PLEASE REVIEW YOUR NEW MEDICATIONS BELOW AND FOLLOW INSTRUCTIONS CAREFULLY. CYMBALTA- for nerve pain, reduced to 30mg daily per Neurologist recommendation METOPROLOL- reduced to 12.5mg daily to prevent low blood pressure and low heart rate AMLODIPINE- only use as needed for blood pressure greater than 180/90 ALWAYS TAKE YOUR BLOOD PRESSURE BEFORE TAKING YOUR MEDICATIONS. DO NOT TAKE LISINOPRIL OR METOPROLOL IF YOUR BLOOD PRESSURES IS LOWER THAN 110/70. RESUME METFORMIN TOMORROW AUGUST 23, 2020. PLEASE CALL YOUR PRIMARY CARE PHYSICIAN IMMEDIATELY IF WITH WORSENING OF SYMPTOMS, DIZZINESS, WEAKNESS. FOLLOW UP WITH DR. BLACKMAN NEXT WEEK OUTLINED ABOVE. Pending Studies at Discharge: No Stand-Alone Forms: My [facility], Smoking Cessation Medications and DC Order Prescriptions: New metoprolol succinate 25 mg Tablet Extended Release 24 Hr 12.5 mg PO DAILY Qty: 30 RF: 0 duloxetine 30 mg Capsule,Delayed Release(Dr/Ec) 30 mg PO QAM Qty: 30 RF: 0 Continued clopidogrel 75 mg Tablet 75 mg PO QAM Qty: 30 RF: 2 aspirin 81 mg Tablet,Delayed Release (Dr/Ec) 81 mg PO QAM Qty: 17 RF: 0 atorvastatin 20 mg tablet 20 mg PO DAILY RF: 0 trazodone 100 mg tablet 100 mg PO HS RF: 0 gabapentin 300 mg capsule 300 mg PO TID RF: 0 duloxetine 30 mg capsule,delayed release(DR/EC) 30 mg PO DAILY RF: 0 sennosides [Senokot] 8.6 mg tablet 8.6 mg PO HS PRN (Reason: Constipation) RF: 0 amlodipine 5 mg tablet 5 mg PO DAILY PRN (Reason: Hypertension) RF: 0 docusate sodium [Colace] 100 mg capsule 100 mg PO BID PRN (Reason: Constipation) RF: 0 oxycodone 5 mg tablet 5 mg PO Q6H PRN (Reason: Pain) RF: 0 lisinopril 30 mg tablet 30 mg PO DAILY RF: 0 metformin 500 mg tablet 500 mg PO BID Qty: 0 RF: 0 nicotine [Nicoderm CQ] 14 mg/24 hr patch 24 hour 1 patch TD DAILY Qty: 14 RF: 0 Discontinued fluoxetine 40 mg capsule 40 mg PO DAILY RF: 0 metoprolol succinate 25 mg tablet extended release 24 hr 25 mg PO DAILY Qty: 30 RF: 0 Discharge Orders: Discharge Order (Routine); Ordered 08/22/20 Ordered By: Jarocho Sales Admission Data Admit Date/Time: 08/20/20 19:06 Attending Provider: Jarocho Sales Admit Provider: Balaji Mitchell Primary Care Provider: Pedro Pablo Blackman Other Providers: Pramod Ashby ; Balaji Mitchell ; Dori Louie I. Other Interventions: Discharge Summary Assessment (RN) Last Done: 08/22/20 11:25
== END 2020-08-22 14:35 | disposition home health service (06) ==
LOC: 2N 13:19 → ED 13:19 → SUATTDRO 19:06 → 2N 20:17

== ENCOUNTER 2021-06-05 14:01 | Inpatient (IN) ==
--- NOTE | 2021-06-05 14:10 | Emergency Department Note ---
Impression & Plan Hypoxia, Smoking, Weakness, Elevated troponin ED Provider Note NAME: EDNA TAYLOR AGE: 50 SEX: M : 1970 ARRIVES VIA: Ambulance INFORMANT: Patient, ED PROVIDER(S): Augustine Bull MD Chief Complaint: Weakness, fall HPI: Patient does present concern for weakness and fall. Patient states that he did fall approximate 1 hour prior to arrival. Patient states that he had a fall at at home but states that he just got slumped downward. Patient denies striking anything denies any pain. The patient does complain of generalized weakness but no focal numbness tingling or weakness. Patient denies any fevers chills chest pains or shortness of breath. Patient is a chronic smoker but denies any alcohol or drug use. The patient states that he has had decreased appetite but denies any issue with defecation or urination. Patient denies any dysuria. Patient denies any blood in the urine or stool. Patient denies any vomiting or diarrhea. Patient states he has been compliant with his medications. Patient did state that he did take some oxycodone around 11 AM for history of chronic neuropathy. The patient states that he had the weakness prior to this and it was not acutely after. ROS: See HPI for pertinent positives and negatives. A total of 10 systems were reviewed and otherwise negative. Past medical history: See below Surgical history: See below Social history: See below Physical Exam: GENERAL: Weak in appearance, nontoxic. Mask in place. EYE EXAM: Normal conjunctiva. PERRL, no anisocoria and EOM's grossly intact w/o pain. NECK: Supple, no nuchal rigidity, no adenopathy, non-tender. No signs of meningismus. LUNGS: Scant wheezes present. Normal chest wall mechanics. HEART: NSR, no MRG. ABDOMEN: Abdomen soft, non-tender, normo-active bowel sounds, no masses, no rebound or guarding. BACK: No CVA TTP. SKIN: No rashes and no bruising. UPPER EXTREMITIES: Upper extremities are grossly normal. LOWER EXTREMITIES: Grossly normal, no edema. Negative Homans' sign bilaterally. NEURO EXAM: A&O x3, cranial nerves II-XII grossly intact, normal speech, moves all 4 extremities on command w/o issue. No sensory deficits. Differential diagnoses: Infection, dehydration, metabolic abnormality, hypo/hyperglycemia, electrolyte disturbance, anemia, hypoxia, cardiac sources, intracerebral event, toxicologic, neurologic, as well as other pathologies. Course: Patient was seen and evaluated the bedside. Full history physical exam was performed. EKG interpreted by me Normal sinus rhythm, rate of 94, normal intervals, normal axis, Q waves inferiorly with trace elevation. Slight depression in aVL. Significant change from comparison EKG 05/04/2021. Imaging Studies: See below Cardiac monitoring: An order was placed for continuous cardiac monitoring. The monitor shows a rate of 88 with sinus rhythm. MDM: Patient did present with concern for weakness and a fall. The patient did not have any LOC did not strike anything. CT head shows chronic infarcts. Chest x-ray is clear. Blood work does show CKD which is chronic baseline creatinine 1 7 today it is 2. The patient did receive IV fluids. Given the patient's positive troponin and mild hypoxia I did speak with the on- call hospitalist and the patient was admitted to the medicine service by Georgia Carmen and Dr. Ceballos. Critical Care: I have personally spent 45 minutes of critical care time in direct management of this patient. This includes bedside care, interpretation of diagnostic studies, and testing, discussion with consultants, patient, and family members, and other require inpatient management activities. This 45 minutes is in excess of all separately billable procedures. Past Med/Surg History Medical History (Updated 06/05/21 @ 20:34 by Augustine Bull MD) Abnormal MRI of head MRI 06/15/20 showed MCA infarcts as well as ring enhancement right posterior lobe. Repeat MRI recommended in 3 months. CAD (coronary artery disease) 2013 - NSTEMI s/p BRUCE to RCA Carotid stenosis, bilateral Depression DM type 2 (diabetes mellitus, type 2) Dyslipidemia History of cerebrovascular accident March 2020; subacute infarct noted to parietal lobe per 06/15/20 MRI Hypertension Ischemic cardiomyopathy EF=45% Surgical History (Updated 05/17/21 @ 11:09 by Lesly Erazo RN) Hx of endarterectomy (06/28/20) Right Carotid Endarterectomy with Bovine Patch Angioplasty Dr. Arita 06/28/2020 S/P drug eluting coronary stent placement Family History Mother , age 68 from metastatic lung cancer Lung cancer Father No problems noted. 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 Feels Safe at Home: Yes Assistive Devices: None Allergies Allergies Allergy/AdvReac Type Severity Reaction Status Date / Time No Known Allergies Allergy Verified 06/05/21 15:32 Home Meds Home Medications Medication Instructions Recorded Confirmed amlodipine 5 mg tablet 5 mg PO DAILY PRN 08/20/20 06/05/21 atorvastatin 20 mg tablet 20 mg PO DAILY 08/20/20 06/05/21 pantoprazole 40 mg tablet,delayed 40 mg PO DAILYBB 09/10/20 06/05/21 release aripiprazole 2 mg tablet 2 mg PO DAILY 05/04/21 06/05/21 oxycodone 5 mg tablet 5 mg PO Q6H PRN 05/04/21 06/05/21 buspirone 5 mg tablet 5 mg PO TID 06/05/21 06/05/21 clopidogrel 75 mg tablet (Plavix) 75 mg PO DAILY 06/05/21 06/05/21 escitalopram oxalate 20 mg tablet 20 mg PO DAILY 06/05/21 06/05/21 fluvoxamine 100 mg tablet 100 mg PO TID 06/05/21 06/05/21 hydroxyzine pamoate 50 mg capsule 25 mg PO BID PRN 06/05/21 06/05/21 lisinopril 30 mg tablet 30 mg PO DAILY 06/05/21 06/05/21 lorazepam 1 mg tablet (Ativan) 0.5 mg PO Q8H PRN 06/05/21 06/05/21 metoprolol succinate 12.5 mg PO DAILY 06/05/21 06/05/21 trazodone 100 mg tablet 100 mg PO HS 06/05/21 06/05/21 Previous Rx's Medication Instructions Recorded aspirin 81 mg tablet,delayed 81 mg PO QAM #17 tab 03/22/20 release metformin 500 mg tablet 500 mg PO BID #0 tab 08/22/20 hydralazine 25 mg tablet 25 mg PO TID #90 tab 09/10/20 Results & Data (ED) Vital Signs Vital Signs - 24 hr 06/05/21 14:05 06/05/21 14:07 06/05/21 14:22 Temperature 37.0 C Temperature Source Oral Pulse Rate 100 H 98 H Pulse Rate [Apical] Pulse Rate from SpO2 Sensor 100 H Pulse Rhythm Regular Pulse Strength Normal Respiratory Rate 16 20 Respiratory Effort / Characteristics Non-Labored Spontaneous Respiratory Depth Normal Respiratory Pattern Regular Blood Pressure 163/118 H 163/118 H Blood Pressure [Left Arm] Blood Pressure Mean 133 133 Blood Pressure Mean [Left Arm] Blood Pressure Position Sitting Pulse Oximetry 97 86 L Oxygen Delivery Method Room Air Room Air Oxygen Flow Rate Sepsis Recent Fever Within 48 Hours No Sepsis New/Unexplained Change in Mental Status No Sepsis Action Taken by Nursing No Action Required Oxygen Flow Rate - Titration Pulse Oximetry Post Tiitration 06/05/21 14:30 06/05/21 14:47 06/05/21 15:55 Temperature Temperature Source Pulse Rate Pulse Rate [Apical] 91 H Pulse Rate from SpO2 Sensor Pulse Rhythm Pulse Strength Respiratory Rate 14 Respiratory Effort / Characteristics Non-Labored Spontaneous Respiratory Depth Respiratory Pattern Blood Pressure Blood Pressure [Left Arm] Blood Pressure Mean Blood Pressure Mean [Left Arm] Blood Pressure Position Pulse Oximetry 86 L 98 81 L Oxygen Delivery Method Nasal Cannula Nasal Cannula Room Air Oxygen Flow Rate 2 Sepsis Recent Fever Within 48 Hours Sepsis New/Unexplained Change in Mental Status Sepsis Action Taken by Nursing Oxygen Flow Rate - Titration 2 Pulse Oximetry Post Tiitration 98 06/05/21 15:56 06/05/21 16:52 06/05/21 17:00 Temperature Temperature Source Pulse Rate 108 H 108 H 108 H Pulse Rate [Apical] Pulse Rate from SpO2 Sensor 108 H 109 H Pulse Rhythm Pulse Strength Respiratory Rate 20 14 13 Respiratory Effort / Characteristics Respiratory Depth Respiratory Pattern Blood Pressure 139/114 H 220/149 H 179/107 H Blood Pressure [Left Arm] Blood Pressure Mean 122 172 131 Blood Pressure Mean [Left Arm] Blood Pressure Position Pulse Oximetry 93 96 Oxygen Delivery Method Oxygen Flow Rate 2 Sepsis Recent Fever Within 48 Hours Sepsis New/Unexplained Change in Mental Status Sepsis Action Taken by Nursing Oxygen Flow Rate - Titration Pulse Oximetry Post Tiitration 06/05/21 17:04 Temperature Temperature Source Pulse Rate Pulse Rate [Apical] 109 H Pulse Rate from SpO2 Sensor Pulse Rhythm Pulse Strength Respiratory Rate 16 Respiratory Effort / Characteristics Respiratory Depth Respiratory Pattern Blood Pressure Blood Pressure [Left Arm] 179/109 H Blood Pressure Mean Blood Pressure Mean [Left Arm] 132 Blood Pressure Position Pulse Oximetry 95 Oxygen Delivery Method Nasal Cannula Oxygen Flow Rate 2 Sepsis Recent Fever Within 48 Hours Sepsis New/Unexplained Change in Mental Status Sepsis Action Taken by Nursing Oxygen Flow Rate - Titration Pulse Oximetry Post Tiitration Home Medications Current Medication List: was personally reviewed by me Laboratory Data Attestation: I reviewed the patient's lab results. Result diagrams: 06/05/21 14:30 06/05/21 14:30 Lab Results 06/05/21 06/05/21 06/05/21 Range/Units 14:30 14:30 14:30 WBC 12.08 H (4.8-10.8) K/uL RBC 5.64 (4.7-6.1) M/uL Hgb 17.2 (14.0-18.0) g/dL Hct 47.5 (42-52) % MCV 84.2 (80-100) fL MCH 30.5 (25-34) pg MCHC 36.2 H (32-36) g/dL RDW Std Deviation 41.2 (36.4-46.3) fL RDW Coeff of Dione 13.4 (11.5-14.5) % Plt Count 121 L (130-400) K/uL MPV 10.4 (7.4-10.4) fL Immature Gran % (Auto) 0.3 % Neut % (Auto) 77.5 % Lymph % (Auto) 14.0 % [place] % (Auto) 7.3 % Eos % (Auto) 0.7 % Baso % (Auto) 0.2 % Neut # (Auto) 9.37 H (1.4-6.5) K/uL Lymph # (Auto) 1.69 (1.2-3.4) K/uL [place] # (Auto) 0.88 H (0.11-0.59) K/uL Eos # (Auto) 0.08 (0-0.5) K/uL Baso # (Auto) 0.02 (0-0.2) K/uL Immature Gran # (Auto) 0.04 H (0.00-0.02) K/uL PT 10.2 (9.0-12.0) Seconds INR 1.0 (0.9-1.1) Sodium 141 (136-145) mmol/L Potassium 4.0 (3.5-5.1) mmol/L Chloride 110 H (98-107) mmol/L Carbon Dioxide 25 (21-32) mmol/L Anion Gap 6.0 (3-11) BUN 11 (7-18) mg/dl Creatinine 2.08 H (0.6-1.4) mg/dl Est Cr Clr Drug Dosing 41.6 ml/min Est GFR ( Amer) 41.8 ml/min Est GFR (Non-Af Amer) 36.0 ml/min BUN/Creatinine Ratio 5.5 L (10-20) Glucose 188 H (70-99) mg/dl Calcium 10.0 (8.5-10.1) mg/dl Magnesium 2.4 (1.8-2.4) mg/dl Total Bilirubin 0.8 (0.2-1) mg/dl AST 30 (15-37) U/L ALT 35 (12-78) U/L Alkaline Phosphatase 88 (45-117) U/L Troponin I 0.089 H* (0-0.045) ng/ml Total Protein 8.2 (6.4-8.2) gm/dl Albumin 3.9 (3.4-5.0) gm/dl Globulin 4.3 H (2.5-4.0) gm/dl Albumin/Globulin Ratio 0.9 (0.9-2) TSH 2.410 (0.300-4.500) uIu/ml COVID-19 Eval Order SARS-CoV-2 (PCR) (Negative) 06/05/21 06/05/21 Range/Units 14:50 14:50 WBC (4.8-10.8) K/uL RBC (4.7-6.1) M/uL Hgb (14.0-18.0) g/dL Hct (42-52) % MCV (80-100) fL MCH (25-34) pg MCHC (32-36) g/dL RDW Std Deviation (36.4-46.3) fL RDW Coeff of Dione (11.5-14.5) % Plt Count (130-400) K/uL MPV (7.4-10.4) fL Immature Gran % (Auto) % Neut % (Auto) % Lymph % (Auto) % [place] % (Auto) % Eos % (Auto) % Baso % (Auto) % Neut # (Auto) (1.4-6.5) K/uL Lymph # (Auto) (1.2-3.4) K/uL [place] # (Auto) (0.11-0.59) K/uL Eos # (Auto) (0-0.5) K/uL Baso # (Auto) (0-0.2) K/uL Immature Gran # (Auto) (0.00-0.02) K/uL PT (9.0-12.0) Seconds INR (0.9-1.1) Sodium (136-145) mmol/L Potassium (3.5-5.1) mmol/L Chloride (98-107) mmol/L Carbon Dioxide (21-32) mmol/L Anion Gap (3-11) BUN (7-18) mg/dl Creatinine (0.6-1.4) mg/dl Est Cr Clr Drug Dosing ml/min Est GFR ( Amer) ml/min Est GFR (Non-Af Amer) ml/min BUN/Creatinine Ratio (10-20) Glucose (70-99) mg/dl Calcium (8.5-10.1) mg/dl Magnesium (1.8-2.4) mg/dl Total Bilirubin (0.2-1) mg/dl AST (15-37) U/L ALT (12-78) U/L Alkaline Phosphatase (45-117) U/L Troponin I (0-0.045) ng/ml Total Protein (6.4-8.2) gm/dl Albumin (3.4-5.0) gm/dl Globulin (2.5-4.0) gm/dl Albumin/Globulin Ratio (0.9-2) TSH (0.300-4.500) uIu/ml COVID-19 Eval Order Covid19 at [facility] SARS-CoV-2 (PCR) NEGATIVE (Negative) Administered Medications Discontinued Medications Albuterol (Albut/Ipratrop 3mg/0.5mg Neb 3 Ml Vial) 6 ml NEB NOW STA Stop: 06/05/21 14:23 Last Admin: 06/05/21 14:45 Dose: 6 ml Documented by: [id number] Sodium Chloride (Nss 1000ml) 1,000 mls @ 999 mls/hr IV .Q1H1M [id number] Stop: 06/05/21 15:30 Last Infusion: 06/05/21 16:11 Dose: 0 mls/hr Documented by: [id number] Admin: 06/05/21 14:40 Dose: 999 mls/hr Documented by: [id number] Magnesium Sulfate/Dextrose (Magnesium Sulfate / D5w) 1 gm in 100 mls @ 100 mls/hr IV NOW STA Stop: 06/05/21 15:23 Last Infusion: 06/05/21 16:11 Dose: 0 mls/hr Documented by: [id number] Admin: 06/05/21 14:40 Dose: 100 mls/hr Documented by: [id number] Methylprednisolone (Methylprednisolone 125 Mg/2 Ml Vial) 60 mg IV NOW STA Stop: 06/05/21 14:23 Last Admin: 06/05/21 14:40 Dose: 60 mg Documented by: [id number] Metoprolol Tartrate (Metoprolol Tartrate 25 Mg Tab) 12.5 mg PO ONE ONE Stop: 06/05/21 17:23 Last Admin: 06/05/21 17:49 Dose: 12.5 mg Documented by: [id number] Imaging Data Radiologist's Impression: Chest X-Ray 06/05/21 14:22 XR chest 1V portable CLINICAL HISTORY: weakness COMPARISON STUDY: Chest radiograph 05/04/2021. FINDINGS: Lung volumes are normal. Lungs are clear. There is no pneumothorax or pleural effusion. Cardiac size is normal. Mediastinal contours are normal. There is no evidence for pulmonary edema. Patient is mildly rotated. IMPRESSION: No acute cardiopulmonary findings. ACT 112: Negative or not required by law. Electronically signed by: Jw Andujar M.D. 06/05/2021 2:[address] 06/05/21 14:22 CT SCAN OF THE BRAIN WITHOUT IV CONTRAST CLINICAL HISTORY: Generalized weakness. COMPARISON STUDY: CT of the brain dated 08/20/2020. TECHNIQUE: Unenhanced axial CT scan of the brain is performed from the vertex to the skull base. A dose lowering technique was utilized adhering to the principles of ALARA. CT DOSE: 614.27 mGy.cm FINDINGS: Brain parenchyma: Right MCA territory encephalomalacia is consistent with a remote infarct. A small chronic infarct is seen in the left cerebellar hemisphere. There are age-related involutional changes noting mild subcortical and periventricular microangiopathic change. There is no hemorrhage, mass effect, or evidence of acute territorial ischemia by CT criteria. Dickens-white matter differentiation is preserved. No extra-axial fluid collection is seen. Ventricles, sulci, cisterns: Prominent secondary to involutional change. Intracranial vasculature: There is atherosclerotic calcification of the cavernous carotid arteries.. Calvarium: Unremarkable. Sinuses and mastoids: The paranasal sinuses are clear. There are left larger than right mastoid effusions. Orbits: The bony orbits are grossly intact. IMPRESSION: Remote infarcts as above with no hemorrhage, mass effect, or evidence of acute territorial ischemia by CT criteria. ACT 112: Negative or not required by law. Electronically signed by: Samson Pham M.D. 06/05/2021 3:20 PM Discharge Plan Visit Data Chief Complaint: Fall Stated Complaint: Feeling unbalanced after fall ED Provider: Augustine Bull Discharge Problem: Hypoxia, Smoking, Weakness, Elevated troponin Patient Disposition: Admitted As Inpatient Discharge Instructions Interventions: ED Discharge Assessment Last Done: 06/05/21 19:22
[2021-06-05] MEDS ORDERED: methylPREDNISolone 125 MG/2 ML VIAL IV STA (14:22)
[2021-06-05] MEDS ORDERED: ALBUT/IPRATROP 3MG/0.5MG NEB 3 ML VIAL NEB STA (14:22)
[2021-06-05] MEDS ORDERED: MAGNESIUM SULFATE / D5W 1 GM/100 ML BAG IV STA (14:24)
[2021-06-05] MEDS ORDERED: SODIUM CHLORIDE 0.9% 1000ML 1,000 ML IV SCH (14:30)
[2021-06-05 14:43] LABS: Basophils # (auto) 0.02 K/uL (0-0.2); Basophils % (auto) 0.2 %; Eosinophils # (auto) 0.08 K/uL (0-0.5); Eosinophils % (auto) 0.7 %; Hematocrit (blood only) 47.5 % (42-52); Hemoglobin 17.2 g/dL (14.0-18.0); Immature Granulocytes # (auto) 0.04 K/uL (0.00-0.02); Immature Granulocytes % (auto) 0.3 %; Lymphocytes # (auto) 1.69 K/uL (1.2-3.4); Mean Corpuscular Hemoglobin 30.5 pg (25-34); Mean Corpuscular Hgb Conc 36.2 g/dL (32-36); Mean Corpuscular Volume 84.2 fL (80-100); Mean Platelet Volume 10.4 fL (7.4-10.4); Monocytes # (auto) 0.88 K/uL (0.11-0.59); Monocytes % (auto) 7.3 %; Neutrophils # (auto) 9.37 K/uL (1.4-6.5); Neutrophils % (auto) 77.5 %; Platelet Count 121 K/uL (130-400); RDW Coefficient of Variation 13.4 % (11.5-14.5); RDW Standard Deviation 41.2 fL (36.4-46.3); Red Blood Count 5.64 M/uL (4.7-6.1); White Blood Count 12.08 K/uL (4.8-10.8)
--- NOTE | 2021-06-05 14:47 | XRay Report ---
XR chest 1V portable CLINICAL HISTORY: weakness COMPARISON STUDY: Chest radiograph 05/04/2021. FINDINGS: Lung volumes are normal. Lungs are clear. There is no pneumothorax or pleural effusion. Car diac size is normal. Mediastinal contours are normal. There is no evidence for pulmonary edema. Patie nt is mildly rotated. IMPRESSION: No acute cardiopulmonary findings. ACT 112: Negative or not required by law. Electronically signed by: Jw Andujar M.D. 06/05/2021 2:45 PM
[2021-06-05 14:48] LABS: Prothrombin Time 10.2 Seconds (9.0-12.0)
[2021-06-05 14:57] LABS: Albumin Level 3.9 gm/dl (3.4-5.0); BUN Creatinine Ratio 5.5 (10-20); Creatinine Clr Calc Pharmacy 41.6 ml/min; Est GFR (African American) 41.8 ml/min; Magnesium 2.4 mg/dl (1.8-2.4)
--- NOTE | 2021-06-05 15:21 | CT Scan Report ---
CT SCAN OF THE BRAIN WITHOUT IV CONTRAST CLINICAL HISTORY: Generalized weakness. COMPARISON STUDY: CT of the brain dated 08/20/2020. TECHNIQUE: Unenhanced axial CT scan of the brain is performed from the vertex to the skull base. A do se lowering technique was utilized adhering to the principles of ALARA. CT DOSE: 614.27 mGy.cm FINDINGS: Brain parenchyma: Right MCA territory encephalomalacia is consistent with a remote infarct. A small c hronic infarct is seen in the left cerebellar hemisphere. There are age-related involutional changes noting mild subcortical and periventricular microangiopathic change. There is no hemorrhage, mass ef fect, or evidence of acute territorial ischemia by CT criteria. Dickens-white matter differentiation is preserved. No extra-axial fluid collection is seen. Ventricles, sulci, cisterns: Prominent secondary to involutional change. Intracranial vasculature: There is atherosclerotic calcification of the cavernous carotid arteries.. Calvarium: Unremarkable. Sinuses and mastoids: The paranasal sinuses are clear. There are left larger than right mastoid effus ions. Orbits: The bony orbits are grossly intact. IMPRESSION: Remote infarcts as above with no hemorrhage, mass effect, or evidence of acute territoria l ischemia by CT criteria. ACT 112: Negative or not required by law. Electronically signed by: Samson Pham M.D. 06/05/2021 3:20 PM
[2021-06-05 15:52] LABS: Albumin Globulin Ratio 0.9 (0.9-2); Bilirubin,Total 0.8 mg/dl (0.2-1); Globulin 4.3 gm/dl (2.5-4.0); Thyroid Stimulating Hormone 2.41 uIu/ml (0.300-4.500); Total Protein 8.2 gm/dl (6.4-8.2); Troponin I 0.089 ng/ml (0-0.045)
--- NOTE | 2021-06-05 16:25 | History & Physical Report ---
Date of Service June 05, 2021 Assessment & Plan (1) Drug overdose: Plan: - Admit to med surg - Tox screen, patient admits to taking 3 to 4 tablets of oxycodone today all at one time. His previous suicidal ideation and reason for psychiatric hospitalization at the [facility] on 05/22/2021 through 05/31/2021 was due to threatening suicide with oxycodone tablets. -PDMP reviewed showing prescription for oxycodone 5 mg given on 05/15, 120 tablets, patient is unable to recall the number of tablets that are left in this prescription. Hold oxycodone, lorazepam and trazodone due to hypoxia on presentation. Patient is awake alert, O2 sats improved to 93% on 2 L. Consider Narcan however currently not needed. -Neurochecks, vital signs, safe tray, consider bedside sitter (2) Depression: Plan: - Hx of such, continue Abilify 20 mg daily, hydroxyzine 25 mg BID prn for anxiety, Lexapro 5 mg daily - Holding trazodone with drug overdose as above (3) Generalized weakness: Plan: -Likely secondary to narcotic induced mechanism as above -PT/OT -Avoid other sedating medications, holding trazodone, oxycodone and lorazepam (4) Chronic ischemic right MCA stroke: Plan: -Check MRI of the brain with history of CVA, chronic stroke seen on CT of the head -Neurochecks -Fall precautions - Continue baby aspirin and Plavix (5) CAD (coronary artery disease): Plan: -Continue baby aspirin and Plavix (6) Dyslipidemia: Plan: -Continue atorvastatin 20 mg daily (7) Hypertension: Plan: -BP acutely elevated,-179/109 -Patient did not take morning medications which would include lisinopril, metoprolol, hydralazine-we will order metoprolol tartrate p.o. 12.5 mg now to assist with rebound tachycardia, hold lisinopril due to BRUNA, allow hydralazine as needed for now. -Noted outpatient medication of amlodipine as needed, will need to readdress during admission (8) DM type 2 (diabetes mellitus, type 2): Plan: -Hold Metformin -ISS with Accu-Cheks AC at bedtime -A1c with a.m. labs (9) BRUNA (acute kidney injury): Plan: -Creatinine elevated at 2.02, BUN 11, baseline appears to be 1.3-1.4 -ISS with NSS 75 mL/h -Follow with a.m. lab -Check renal artery ultrasound DVT PPx: - teds, scds CODE: Will need to be readdressed during admission, due to depression and possible suicide attempt with drug overdose unable to determine if the patient is a DNR/DNI or full code, will remain full code for now. Dispo: From home, likely to remain in the hospital x 1-2 days History of Present Illness Chief Complaint: Weakness, fall Primary Care Provider: Pedro Pablo Gaspar MD This is a 50 yo M with PMHx of CAD s/p stenting, right carotid endarterectomy, history of CVA, depression, DM type II current tobacco smoker. Reports to the ER feeling "weak and not feeling quite right". He is now presenting with new onset of hypoxia with 85% on room air initially. Now his sats have improved to mid 90s on 2L. He is drowsy during exam, and gives mostly 1 word answers. He has a history of suicidal ideation with recent ER visit on 05/22/2021 where he was admitted to the [facility] on , for suicidal ideation with oxycodone tablets. He was discharged on 05/31/21. PDMP review shows his last prescription for oxycodone was issued on 05/15 for a 20-day supply with 120 tablets of oxycodone 5 mg. He admits to taking three or four, 5 mg tablets at once this morning and then afterwards felt more weakness, slumped over and fell and bumped his head, and felt more short of breath. He reports being able to smoke 4 to 5 cigarettes, then, he called an ambulance which brought him to the ER due to shortness of breath. He denies any suicidal or homicidal ideations. Reports that he took oxycodone because of neuropathy in his legs. He is not sure how many oxycodone tablets are left in that prescription at home. Patient reports that he follows with psychiatry as an outpatient, Darcy Melendez in [place], and also has a therapist and CM. He has appointments scheduled with these people for follow up from his recent inpatient stay at the [facility]. 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 Allergies Allergy/AdvReac Type Severity Reaction Status Date / Time No Known Allergies Allergy Verified 06/05/21 15:32 Home Medications Medication Instructions Recorded Confirmed Type aspirin 81 mg tablet,delayed 81 mg PO QAM #17 tab 03/22/20 06/05/21 Rx release amlodipine 5 mg tablet 5 mg PO DAILY PRN 08/20/20 06/05/21 History atorvastatin 20 mg tablet 20 mg PO DAILY 08/20/20 06/05/21 History metformin 500 mg tablet 500 mg PO BID #0 tab 08/22/20 06/05/21 Rx hydralazine 25 mg tablet 25 mg PO TID #90 tab 09/10/20 06/05/21 Rx pantoprazole 40 mg tablet,delayed 40 mg PO DAILYBB 09/10/20 06/05/21 History release aripiprazole 2 mg tablet 2 mg PO DAILY 05/04/21 06/05/21 History oxycodone 5 mg tablet 5 mg PO Q6H PRN 05/04/21 06/05/21 History buspirone 5 mg tablet 5 mg PO TID 06/05/21 06/05/21 History clopidogrel 75 mg tablet (Plavix) 75 mg PO DAILY 06/05/21 06/05/21 History escitalopram oxalate 20 mg tablet 20 mg PO DAILY 06/05/21 06/05/21 History fluvoxamine 100 mg tablet 100 mg PO TID 06/05/21 06/05/21 History hydroxyzine pamoate 50 mg capsule 25 mg PO BID PRN 06/05/21 06/05/21 History lisinopril 30 mg tablet 30 mg PO DAILY 06/05/21 06/05/21 History lorazepam 1 mg tablet (Ativan) 0.5 mg PO Q8H PRN 06/05/21 06/05/21 History metoprolol succinate 12.5 mg PO DAILY 06/05/21 06/05/21 History trazodone 100 mg tablet 100 mg PO HS 06/05/21 06/05/21 History Past Med/Surg History Medical History (Updated 06/05/21 @ 20:34 by Augustine Bull MD) Abnormal MRI of head MRI 06/15/20 showed MCA infarcts as well as ring enhancement right posterior lobe. Repeat MRI recommended in 3 months. CAD (coronary artery disease) 2014 - NSTEMI s/p BRUCE to RCA Carotid stenosis, bilateral Depression DM type 2 (diabetes mellitus, type 2) Dyslipidemia History of cerebrovascular accident March 2020; subacute infarct noted to parietal lobe per 06/15/20 MRI Hypertension Ischemic cardiomyopathy EF=45% Surgical History (Updated 05/17/21 @ 11:09 by Lesly Erazo RN) Hx of endarterectomy (06/28/20) Right Carotid Endarterectomy with Bovine Patch Angioplasty Dr. Arita 06/28/2020 S/P drug eluting coronary stent placement Family History Mother , age 68 from metastatic lung cancer Lung cancer Father No problems noted. 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 Psychiatric: +depression, recent suicidal ideation and inpatient psychiatric hospitalization. Skin: No rash or itch Physical Exam Physical Exam: General: awake, alert, no apparent distress, appears much older than stated age, unkempt Head: Normocephalic, atraumatic ENT: PERRL, EOMI, no pharyngeal exudate, mucous membranes moist Chest: Diminished breath sounds throughout, on 2 LPM NC, no adventitious breath sounds Cardiac: Regular rhythm, tachycardic with heart rate in the 110s, no murmur, no JVD, normal peripheral pulses, good capillary refill Abdominal: NABS x 4 quadrants, soft, nondistended, nontender to palpation, no rebound or guarding Extremities: Normal inspection, no peripheral edema or erythema, calfs nontender to palpation, no clubbing Psych: Depressed mood and flat affect, one-word answers Neuro: AAO x 3, strength intact bilaterally and rated 5/5, no motor deficits, speech is clear, no peripheral sensory deficits Skin: Multiple tattoos, long fingernails Results & Data Results & Data ([facility]) Vital Signs (Past 12 Hours) Vital Signs Temp Pulse Pulse Resp BP Pulse Ox 06/05/21 15:56 108 H 20 139/114 H 93 06/05/21 15:55 81 L 06/05/21 14:47 91 H 14 98 06/05/21 14:30 86 L 06/05/21 14:22 86 L 06/05/21 14:07 37.0 C 98 H 20 163/118 H 97 06/05/21 14:05 100 H 16 163/118 H Laboratory Results Short CBC 06/05/21 Range/Units 14:30 WBC 12.08 H (4.8-10.8) K/uL Hgb 17.2 (14.0-18.0) g/dL Hct 47.5 (42-52) % Plt Count 121 L (130-400) K/uL BMP 06/05/21 14:30 Sodium 141 Potassium 4.0 Chloride 110 H Carbon Dioxide 25 BUN 11 Creatinine 2.08 H Glucose 188 H Calcium 10.0 Cardiac Enzymes 06/05/21 Range/Units 14:30 Troponin I 0.089 H* (0-0.045) ng/ml Liver Function 06/05/21 Range/Units 14:30 Total Bilirubin 0.8 (0.2-1) mg/dl AST 30 (15-37) U/L ALT 35 (12-78) U/L Alkaline Phosphatase 88 (45-117) U/L Albumin 3.9 (3.4-5.0) gm/dl Diagnostic Findings Chest X-Ray 06/05/21 14:22 XR chest 1V portable CLINICAL HISTORY: weakness COMPARISON STUDY: Chest radiograph 05/04/2021. FINDINGS: Lung volumes are normal. Lungs are clear. There is no pneumothorax or pleural effusion. Cardiac size is normal. Mediastinal contours are normal. There is no evidence for pulmonary edema. Patient is mildly rotated. IMPRESSION: No acute cardiopulmonary findings. ACT 112: Negative or not required by law. Electronically signed by: Jw Andujar M.D. 06/05/2021 2:[address] 06/05/21 14:22 CT SCAN OF THE BRAIN WITHOUT IV CONTRAST CLINICAL HISTORY: Generalized weakness. COMPARISON STUDY: CT of the brain dated 08/20/2020. TECHNIQUE: Unenhanced axial CT scan of the brain is performed from the vertex to the skull base. A dose lowering technique was utilized adhering to the principles of ALARA. CT DOSE: 614.27 mGy.cm FINDINGS: Brain parenchyma: Right MCA territory encephalomalacia is consistent with a remote infarct. A small chronic infarct is seen in the left cerebellar hemisphere. There are age-related involutional changes noting mild subcortical and periventricular microangiopathic change. There is no hemorrhage, mass effect, or evidence of acute territorial ischemia by CT criteria. Dickens-white matter differentiation is preserved. No extra-axial fluid collection is seen. Ventricles, sulci, cisterns: Prominent secondary to involutional change. Intracranial vasculature: There is atherosclerotic calcification of the [place] carotid arteries.. Calvarium: Unremarkable. Sinuses and mastoids: The paranasal sinuses are clear. There are left larger than right mastoid effusions. Orbits: The bony orbits are grossly intact. IMPRESSION: Remote infarcts as above with no hemorrhage, mass effect, or evidence of acute territorial ischemia by CT criteria. ACT 112: Negative or not required by law. Electronically signed by: Samson Pham M.D. 06/05/2021 3:20 PM ECG Additional Comments: 05-JUN-2021 14:38:49 [facility]-EDSTAT ROUTINE RETRIEVAL Normal sinus rhythm Possible Left atrial enlargement Inferior infarct (cited on or before 04-MAY-2021) Abnormal ECG When compared with ECG of 04-MAY-2021 15:36, No significant change was found 25mm/s 10mm/mV 150Hz 9.0.9 12SL 241 EDISON: 11 Referred by: REFERRED SELF Unconfirmed Vent. rate 94 BPM WY interval 178 ms QRS duration 96 ms QT/QTc 376/470 ms Code Status & VTE Plan Code Status Full Supervising Physician Co-Signing Physician Notes Patient is a 50-year-old male with history of coronary artery disease, CVA, diabetes mellitus and other medical problems presents with history of generalized weakness and a fall prior to admission. Patient is a poor historian. He is drowsy during the encounter. On further questioning, patient admits to having oxycodone--3 to 4 tablets which he was trying to manage his neuropathy. He denies any suicidal ideation. Of note, patient had history of suicidal ideation and was admitted at [facility] recently. Please review HPI for complete details of presentation. He was found to be hypoxic while in ED. Chest x-ray showed no acute findings. EKG remains unchanged. Noted to have BRUNA with creatinine 2.08. Noted chronic troponin elevation. CT head showed old infarcts. MRI brain pending. On exam patient is moderately built and nourished, no apparent distress, normocephalic atraumatic, drowsy, EOMI, normal breath sounds, clear to auscultation, S1-S2, no murmur, no pedal edema,+ sinus tachycardia, abdomen soft, nontender, normal bowel sounds, alert, awake, oriented, moves all extremities with no focal deficits. Patient is admitted for management of generalized weakness, fall, possible drug overdose. Drug screen currently pending. Will consult psychiatry for possible suicidal ideation. Will check MRI brain to rule out acute stroke. Fall precautions, PT OT requested. Continue IV fluids, check orthostatics and hold narcotics. Also hold lisinopril. And hydralazine as needed for hypertensive urgency. Hypoxia likely secondary to drug overdose. Continue supplemental oxygen as needed. Consider further evaluation if hypoxia persistent. Noted chronic troponin elevation. Currently denies any chest pain, dyspnea. I personally reviewed the record. Patient is interviewed and examined at bedside. Patient's care is coordinated with Gala Gibbs PA-C. Please refer to the documentation above for details of patient's presentation and for discussion of other issues. (1) Depression Depression Type: unspecified Qualified Code(s): F32.9 - Major depressive disorder, single episode, unspecified (2) Hypertension Hypertension type: essential hypertension Qualified Code(s): I10 - Essential (primary) hypertension
[2021-06-05] MEDS ORDERED: METOPROLOL TARTRATE 25 MG TAB PO ONE (17:22)
[2021-06-05] MEDS ORDERED: hydrALAZINE 10 MG TAB PO PRN (20:12)
[2021-06-05] MEDS ORDERED: GLUCAGON FOR INJ 1 MG VIAL SQ PRN (20:12)
[2021-06-05] MEDS ORDERED: GLUCOSE 40% GEL 15 GM TUBE PO PRN (20:12)
[2021-06-05] MEDS ORDERED: GLUCOSE 10 TABS/TUBE PO PRN (20:12)
[2021-06-05] MEDS ORDERED: ACETAMINOPHEN 325 MG TAB PO PRN (20:12)
[2021-06-05] MEDS ORDERED: CARBOHYDRATES FOR HYPOGLYCEMIA PO PRN (20:12)
[2021-06-05] MEDS ORDERED: DEXTROSE 50% 50 ML SYRINGE IV PRN (20:12)
--- NOTE | 2021-06-05 20:25 | Ultrasound Report ---
US duplex renal artery CLINICAL HISTORY: Tachycardia, htn, assess for renal art stenosis COMPARISON STUDY: No previous studies for comparison. TECHNIQUE: Grayscale, color and duplex Doppler sonography of the abdominal aorta and renal arteries w as performed. FINDINGS: The abdominal aorta was partially obscured on this examination. No elevated velocities were identified within the renal arteries. Peak systolic velocity within the right renal artery was 101 c m/s and the peak systolic velocity within the left renal artery was 116 cm/s. Segmental waveforms wit hin each kidney were normal. Both renal veins were patent. Right kidney measures 11.2 cm in maximal d imension and the left measured 11.6 cm. IMPRESSION: No sonographic evidence of renal artery stenosis. ACT 112: Negative or not required by law. Electronically signed by: Jw Andujar M.D. 06/05/2021 8:24 PM
[2021-06-05] MEDS: SODIUM CHLORIDE 0.9% 1000ML 1,000 ML IV SCH (21:55)
[2021-06-05] MEDS: fluvoxaMINE MALEATE 50 MG TAB PO SCH (21:57)
[2021-06-05] MEDS: busPIRone 5 MG TAB PO SCH (21:57)
[2021-06-05] MEDS: INSULIN ASPART 100 UNITS/ML 3 ML PEN SC SCH (21:58)
[2021-06-05 22:50] LABS: Appearance Urine Clear (Clear); Bacteria Urine Automated Negative (Negative); Bilirubin Urine Negative (Negative); Blood Urine 1+ (Negative); Color Urine Yellow; Epithelial Cell Urine Auto >30 /lpf (0-5); Glucose Urine UA 3+ (Negative); Ketones Urine Negative (Negative); Leukocyte Esterase Urine Negative (Negative); Nitrite Urine Negative (Negative); Protein Urine 1+ (Negative); RBC Urine Automated 0-4 /hpf (0-4); Specific Gravity Urine 1.014 (1.000-1.030); Urobilinogen Urine Negative (Negative); pH Urine 5.5 (4.5-7.5)
[2021-06-05 23:01] LABS: Cast Urine Automated >30 /lpf (0-5)
[2021-06-05 23:06] LABS: Amphetamines+Metham, Urine Neg (Neg); Barbiturates, Urine Neg (Neg); Benzodiazepine, Urine Neg (Neg); Cocaine, Urine Neg (Neg); MDMA (Ecstacy), Urine Pos (Neg); Methadone, Urine Neg (Neg); Opiate, Urine Pos (Neg); Phencyclidine, Urine Neg (Neg)
[2021-06-06] MEDS: PANTOprazole 40 MG TAB PO SCH (06:07)
[2021-06-06 07:21] LABS: Hematocrit (blood only) 41.3 % (42-52); Hemoglobin 14.4 g/dL (14.0-18.0); Mean Corpuscular Hemoglobin 29.7 pg (25-34); Mean Corpuscular Hgb Conc 34.9 g/dL (32-36); Mean Corpuscular Volume 85.2 fL (80-100); Platelet Count 126 K/uL (130-400); RDW Coefficient of Variation 13.3 % (11.5-14.5); RDW Standard Deviation 41.1 fL (36.4-46.3); Red Blood Count 4.85 M/uL (4.7-6.1); White Blood Count 22.48 K/uL (4.8-10.8)
[2021-06-06 07:40] LABS: Estimated Average Glucose 111 mg/dl; Hemoglobin A1C 5.5 % (4.5-5.6)
--- NOTE | 2021-06-06 07:45 | Magnetic Resonance Report ---
MRI OF THE BRAIN WITHOUT CONTRAST CLINICAL HISTORY: Hypoxia, hx CVA, COMPARISON STUDY: Head CT dated 06/05/2021, MRI the brain dated 06/15/2020 FINDINGS: Sagittal T1, axial diffusion, T2 weighted axial, coronal FLAIR, and axial T1-weighted images were acq uired. No intra or extra-axial mass lesions are visualized There is 8 mm focus of restricted water diffusion within the right posterior parietal lobe, consisten t with a tiny acute/subacute infarct. This is in the location of the previously identified right mateo etal infarct. There is no evidence of ventricular dilatation. Proton density T2-weighted and FLAIR images reveal age advanced foci of increased T2 signal within th e white matter, likely on a small vessel basis. There are old right frontal and parietal lobe infarct s. There are no abnormal flow voids. There are bilateral mastoid effusions IMPRESSION: 1. Age advanced white matter disease 2. Old right frontal and right parietal lobe infarcts 3. 8 mm focus of restricted water diffusion in the right parietal lobe, consistent with a small acute /subacute infarct. This is located in the region of the prior infarct. This finding was not described in the preliminary report will be called to the floor 4. Bilateral mastoid effusions ACT 112: Negative or not required by law. Electronically signed by: Roland Mejias M.D. 06/06/2021 7:44 AM
[2021-06-06 07:55] LABS: Albumin Level 3.2 gm/dl (3.4-5.0); BUN Creatinine Ratio 10.5 (10-20); Calcium 9.4 mg/dl (8.5-10.1); Creatinine Clr Calc Pharmacy 56.6 ml/min; Est GFR (African American) 60.6 ml/min; Est GFR (Non-African American) 52.2 ml/min; Magnesium 2.3 mg/dl (1.8-2.4); Potassium 4.4 mmol/L (3.5-5.1)
[2021-06-06 07:57] LABS: Albumin Globulin Ratio 0.8 (0.9-2); Bilirubin,Total 0.9 mg/dl (0.2-1); Phosphorus 2.4 mg/dl (2.5-4.9); Total Protein 7.2 gm/dl (6.4-8.2)
--- NOTE | 2021-06-06 08:08 | Communication Note ---
Date of Service: June 06, 2021 MRI of brain : 3. 8 mm focus of restricted water diffusion in the right parietal lobe, consistent with a small acute/subacute infarct. This is located in the region of the prior infarct. Patient is already on dual antiplatelet aspirin Plavix and statin, Neuro consult requested.
--- NOTE | 2021-06-06 08:24 | Electrocardiogram Report ---
Test Reason : Blood Pressure : / mmHG Vent. Rate : 069 BPM Atrial Rate : 069 BPM P-R Int : 200 ms QRS Dur : 090 ms QT Int : 418 ms P-R-T Axes : 041 -07 039 degrees QTc Int : 447 ms Normal sinus rhythm Left atrial enlargement Old Inferior infarct (cited on or before 04-MAY-2021) Abnormal ECG When compared with ECG of 05-JUN-2021 14:38, No significant change was found Confirmed by Pedro Pablo Castañeda ([id number]) on 06/06/2021 8:24:36 AM Referred By: REFERRED SELF Confirmed By:Pedro Pablo Castañeda
--- NOTE | 2021-06-06 08:32 | Electrocardiogram Report ---
Test Reason : Blood Pressure : / mmHG Vent. Rate : 094 BPM Atrial Rate : 094 BPM P-R Int : 178 ms QRS Dur : 096 ms QT Int : 376 ms P-R-T Axes : 048 -04 061 degrees QTc Int : 470 ms Normal sinus rhythm Left atrial enlargement Old Inferior infarct (cited on or before 04-MAY-2021) Abnormal ECG When compared with ECG of 04-MAY-2021 15:36, No significant change was found Confirmed by Pedro Pablo Castañeda ([id number]) on 06/06/2021 8:31:55 AM Referred By: REFERRED SELF Confirmed By:Pedro Pablo Castañeda
[2021-06-06] MEDS: INSULIN ASPART 100 UNITS/ML 3 ML PEN SC SCH ×4 (08:35→20:27)
[2021-06-06] MEDS: METOPROLOL SUCC 25MG EXT REL TAB PO SCH (08:36)
[2021-06-06] MEDS: fluvoxaMINE MALEATE 50 MG TAB PO SCH ×3 (08:36→20:19)
[2021-06-06] MEDS: ARIPIprazole 1 MG/ML ORAL SOLN 150 ML BTL PO SCH (08:36)
[2021-06-06] MEDS: busPIRone 5 MG TAB PO SCH ×3 (08:37→20:19)
[2021-06-06] MEDS: ASPIRIN 81 MG ECTAB PO SCH (08:37)
[2021-06-06] MEDS: CLOPIDOGREL BISULFATE 75 MG TAB PO SCH (08:37)
[2021-06-06] MEDS: ESCITALOPRAM OXALATE 20 MG TAB PO SCH (08:37)
[2021-06-06] MEDS ORDERED: ARIPIprazole 1 MG/ML ORAL SOLN 150 ML BTL PO SCH (09:00)
[2021-06-06] MEDS ORDERED: ATORVASTATIN 20 MG TAB PO SCH (09:00)
[2021-06-06] MEDS ORDERED: PHARMACIST DISCHARGE MED REC CONSULT PRN (10:34)
[2021-06-06] MEDS ORDERED: ATORVASTATIN 20 MG TAB PO ONE (11:00)
[2021-06-06] MEDS: SODIUM CHLORIDE 0.9% 1000ML 1,000 ML IV SCH (11:16)
--- NOTE | 2021-06-06 12:40 | Neurology Consultation ---
Date of Consultation June 06, 2021 Assessment & Plan (1) Left hemiparesis: 1. MRI with 8mm acute/subacute infarct 2. PT/OT speech for discharge needs 3. continue plavix 75 mg and aspirin 81 mg for now 4. CTA head and neck to identify new source of infarct 5. optimize HTN HLD, DM LDL <70 6. TTE- if not already done 7. recommend smoking cessation 8. on suicide watch (2) H/O: CVA (cerebrovascular accident): 1. as above (3) Stroke due to embolism: as above Supervising Physician Co-Signing Physician Notes I have seen and discussed above patient with Dr Vinh Piña, neurology I saw Mr. Gibson today reviewed his case and the imaging studies which reveal no evidence for a new area of infarction in the right parietal lobe ipsilateral to his prior right carotid endarterectomy which was done last summer when he presented with a series of strokes involving the right hemisphere. He is just come out of the [facility] where he was admitted for depression and he is very vague about whether he was taking some of his medications appropriately which theoretically included both aspirin and Plavix Currently he has a left hemiparesis some neglect of left cutaneous stimuli in the upper but not lower extremities and what appears to be a mild left field cut to confrontation but I suspect all of this is old is the arm has increased tone is weak and has loss of facility with lesser involvement of the leg and only mild involvement of the face At this point he needs a CT angiographic study of the head neck and echocardiogram and reinstitution of his dual antiplatelet therapy acting on the assumption that some of this may have been due to poor compliance and acting on assumption that more antiplatelet drugs in the setting we are going to do a whole lot except increases risk for bleeding He certainly may be a candidate for paroxysmal atrial fibrillation with his alcoholism and other vascular risk factors so we do not see evidence on our monitoring for atrial fibrillation he might need an outpatient Zio patch. Whether or not he is going to be compliant with this is another question Neurology will be by tomorrow to review the studies and reassess his status and he is known to Dr. Ashby from consultation last year so perhaps he will have a better feel for this man's baseline neurologic status and I do Vinh Piña MD History of Present Illness Reason for Consultation: acute CVA Requesting Physician: Yanira Snyder MD Attending Physician: Yanira Snyder MD History of Present Illness Deyvi is a 50 year old male with PMH- CAD s/p stenting, right carotid endarterectomy, history of CVA, depression, DM type II current tobacco smoker. He was feeling "weak and not feeling quite right". He present to [facility] 06/05/21 with new onset of hypoxia with 85% on room air initially. He has a history of suicidal ideation with recent ER visit on 05/22/2021 where he was admitted to the [facility] on , for suicidal ideation with oxycodone tablets. He was discharged on 05/31/21. PDMP review shows his last prescription for oxycodone was issued on 05/15 for a 20-day supply with 120 tablets of oxycodone 5 mg. He admits to taking three or four, 5 mg tablets at once this morning and then afterwards felt more weakness, slumped over and fell and bumped his head, and felt more short of breath. He was able to smoke 4 to 5 cigarettes, then, he called an ambulance which brought him to the ER due to shortness of breath. He took oxycodone because of neuropathy in his legs. He is not sure how many oxycodone tablets are left in that prescription at home. He follows with psychiatry as an outpatient, Darcy Melendez in [place], and also has a therapist and CM. He has appointments scheduled with these people for follow up from his recent inpatient stay at the [facility]. he states he has been taking his medications as ordered. fell and could not get up. denies CP, SOB, abdominal pain. Allergies Allergy/AdvReac Type Severity Reaction Status Date / Time No Known Allergies Allergy Verified 06/05/21 15:32 Home Medications Medication Instructions Recorded Confirmed Type aspirin 81 mg tablet,delayed 81 mg PO QAM #17 tab 03/22/20 06/05/21 Rx release amlodipine 5 mg tablet 5 mg PO DAILY PRN 08/20/20 06/05/21 History atorvastatin 20 mg tablet 20 mg PO DAILY 08/20/20 06/05/21 History metformin 500 mg tablet 500 mg PO BID #0 tab 08/22/20 06/05/21 Rx hydralazine 25 mg tablet 25 mg PO TID #90 tab 09/10/20 06/05/21 Rx pantoprazole 40 mg tablet,delayed 40 mg PO DAILYBB 09/10/20 06/05/21 History release aripiprazole 2 mg tablet 2 mg PO DAILY 05/04/21 06/05/21 History oxycodone 5 mg tablet 5 mg PO Q6H PRN 05/04/21 06/05/21 History buspirone 5 mg tablet 5 mg PO TID 06/05/21 06/05/21 History clopidogrel 75 mg tablet (Plavix) 75 mg PO DAILY 06/05/21 06/05/21 History escitalopram oxalate 20 mg tablet 20 mg PO DAILY 06/05/21 06/05/21 History fluvoxamine 100 mg tablet 100 mg PO TID 06/05/21 06/05/21 History hydroxyzine pamoate 50 mg capsule 25 mg PO BID PRN 06/05/21 06/05/21 History lisinopril 30 mg tablet 30 mg PO DAILY 06/05/21 06/05/21 History lorazepam 1 mg tablet (Ativan) 0.5 mg PO Q8H PRN 06/05/21 06/05/21 History metoprolol succinate 12.5 mg PO DAILY 06/05/21 06/05/21 History trazodone 100 mg tablet 100 mg PO HS 06/05/21 06/05/21 History Patient History Medical History (Updated 06/06/21 @ 15:52 by Digna Timmons PA-C) Abnormal MRI of head MRI 06/15/20 showed MCA infarcts as well as ring enhancement right posterior lobe. Repeat MRI recommended in 3 months. CAD (coronary artery disease) 2013 - NSTEMI s/p BRUCE to RCA Carotid stenosis, bilateral Depression DM type 2 (diabetes mellitus, type 2) Dyslipidemia History of cerebrovascular accident March 2020; subacute infarct noted to parietal lobe per 06/15/20 MRI Hypertension Ischemic cardiomyopathy EF=45% Surgical History (Updated 05/17/21 @ 11:09 by Lesly Erazo RN) Hx of endarterectomy (06/28/20) Right Carotid Endarterectomy with Bovine Patch Angioplasty Dr. Arita 06/28/2020 S/P drug eluting coronary stent placement Family History Mother , age 68 from metastatic lung cancer Lung cancer Father No problems noted. 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 Tapper Required: No Beliefs That Will Affect Care: None marital status: Single Current Living Situation: Alone Current Living Situation Comment: TRANSITION HOUSING current occupational status: previously employed current occupation: [employer] employee Other Information That Helps Us Care for You: No other: 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[employer], 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 Feels Safe at Home: Yes Safety Concerns: Feels Safe At This Time Assistive Devices: None Review of Systems Review of Systems: All systems reviewed & are unremarkable except as noted in HPI & below Physical Exam Physical Exam: Physical Exam: Constitutional: unkempt Ears, Nose, Mouth and Throat: mucous membranes moist, no injection and skin normal, eyes normal Cardiovascular: normal S-1 and S-2 and regular rate and rhythm Respiratory: course breath sounds Musculoskeletal:good distal pulses Skin: no stigmata of neurocutaneous disease noted and normal and intact Eyes: extraocular muscles intact (EOMI) and pupils equal, round and reactive to light (PERRL), right sided neglect, left side field cut NEUROLOGIC EXAMINATION: Mental status: Alert and interactive Oriented to person Speech fluent with no evidence of aphasia Cranial Nerves right sided nasolabial fold decreased Sensory: intact to light touch Coordination: finger to nose Gait/Stance: Posture lying in bed Motor: Negative for pronator drift of out stretched arms with eyes closed, left hand tremor with reaching Strength: left hand ice crusher hip flex plantar flex ext 4+/5 Results & Data ([facility]) Vital Signs (Past 12 Hours) Vital Signs Temp Pulse Pulse Pulse Resp BP Pulse Ox 06/06/21 11:07 36.8 C 64 20 132/80 96 06/06/21 07:32 73 06/06/21 07:16 36.8 C 71 26 H 155/80 H 94 06/06/21 03:21 36.7 C 69 18 125/89 94 Laboratory Results Abnormal lab results 07/21/21 07/21/21 07/21/21 Range/Units 14:30 14:30 21:41 WBC 12.08 H (4.8-10.8) K/uL Hct (42-52) % MCHC 36.2 H (32-36) g/dL Plt Count 121 L (130-400) K/uL MPV (7.4-10.4) fL Neut # (Auto) 9.37 H (1.4-6.5) K/uL [place] # (Auto) 0.88 H (0.11-0.59) K/uL Immature Gran # (Auto) 0.04 H (0.00-0.02) K/uL Chloride 110 H (98-107) mmol/L Creatinine 2.08 H (0.6-1.4) mg/dl BUN/Creatinine Ratio 5.5 L (10-20) Glucose 188 H (70-99) mg/dl POC Glucose 225 H (70-99) mg/dl Phosphorus (2.5-4.9) mg/dl AST (15-37) U/L Troponin I 0.089 H* (0-0.045) ng/ml Albumin (3.4-5.0) gm/dl Globulin 4.3 H (2.5-4.0) gm/dl Albumin/Globulin Ratio (0.9-2) Urine Protein (Negative) Urine Glucose (UA) (Negative) Urine Blood (Negative) U Hyaline Cast (Auto) (0-5) /lpf U Epithel Cells (Auto) (0-5) /lpf Granular Casts (0) /lpf Urine Opiates Screen (Neg) MDMA (Ecstasy) Screen (Neg) 06/05/21 06/05/21 06/06/21 Range/Units 22:30 22:30 06:40 WBC 22.48 H D (4.8-10.8) K/uL Hct 41.3 L (42-52) % MCHC (32-36) g/dL Plt Count 126 L (130-400) K/uL MPV 11.0 H (7.4-10.4) fL Neut # (Auto) (1.4-6.5) K/uL [place] # (Auto) (0.11-0.59) K/uL Immature Gran # (Auto) (0.00-0.02) K/uL Chloride (98-107) mmol/L Creatinine (0.6-1.4) mg/dl BUN/Creatinine Ratio (10-20) Glucose (70-99) mg/dl POC Glucose (70-99) mg/dl Phosphorus (2.5-4.9) mg/dl AST (15-37) U/L Troponin I (0-0.045) ng/ml Albumin (3.4-5.0) gm/dl Globulin (2.5-4.0) gm/dl Albumin/Globulin Ratio (0.9-2) Urine Protein 1+ H (Negative) Urine Glucose (UA) 3+ H (Negative) Urine Blood 1+ H (Negative) U Hyaline Cast (Auto) >30 H (0-5) /lpf U Epithel Cells (Auto) >30 H (0-5) /lpf Granular Casts 5-10 H (0) /lpf Urine Opiates Screen Pos H (Neg) MDMA (Ecstasy) Screen Pos H (Neg) 06/06/21 06/06/21 06/06/21 Range/Units 06:40 07:04 12:38 WBC (4.8-10.8) K/uL Hct (42-52) % MCHC (32-36) g/dL Plt Count (130-400) K/uL MPV (7.4-10.4) fL Neut # (Auto) (1.4-6.5) K/uL [place] # (Auto) (0.11-0.59) K/uL Immature Gran # (Auto) (0.00-0.02) K/uL Chloride (98-107) mmol/L Creatinine 1.53 H D (0.6-1.4) mg/dl BUN/Creatinine Ratio (10-20) Glucose 214 H (70-99) mg/dl POC Glucose 212 H 193 H (70-99) mg/dl Phosphorus 2.4 L (2.5-4.9) mg/dl AST 43 H (15-37) U/L Troponin I (0-0.045) ng/ml Albumin 3.2 L (3.4-5.0) gm/dl Globulin (2.5-4.0) gm/dl Albumin/Globulin Ratio 0.8 L (0.9-2) Urine Protein (Negative) Urine Glucose (UA) (Negative) Urine Blood (Negative) U Hyaline Cast (Auto) (0-5) /lpf U Epithel Cells (Auto) (0-5) /lpf Granular Casts (0) /lpf Urine Opiates Screen (Neg) MDMA (Ecstasy) Screen (Neg) Diagnostic Findings MRI brain-Age advanced white matter disease Old right frontal and right parietal lobe infarcts 8 mm focus of restricted water diffusion in the right parietal lobe, consistent with a small acute/subacute infarct. This is located in the region of the prior infarct. This finding was not described in the preliminary report will be called to the floor. Bilateral mastoid effusions
--- NOTE | 2021-06-06 16:42 | Psychiatric Consultation ---
Date of Consultation June 06, 2021 Impression / Recommendations Impression 50-year-old male with recent history of depression who presents following a accidental overdose of oxycodone medication. Patient was still somewhat somnolent during encounter and psychiatry will continue to follow to ensure mood is stable prior to discharge. Patient is denying any suicidal or homicidal ideation. No urgent changes in psychiatric medication required at this time. Plan: Continue home medications when medically appropriate to do so Psychiatry will continue to follow Psych History Chief Complaint "I am okay". History of Present Illness HPI as per psychiatric liaison "Patient is a single 50 year old male who lives in an apartment in [place]. Patient had been in the [facility] recently due to a plan to overdose on oxycodone. States he had been depressed and suicidal before he went to the [facility], however he states his depression has improved some and denies any suicidal ideations. "You know the saying, 2 is good, so 3 is better....so I took 3 or 4. If just made me nauseous." Patient denies any drug or alcohol use. States he still smokes a half a pack a day. Reports he is frustrated with his physical limitations and admits to being depressed because of his situation. States his sleep is good due to receiving trazodone, but still has poor energy during the day. States he is able to concentrate, but becomes distracted and can be restless with racing thoughts at times. Patient scored a 16 on the PHQ9. Patient has been following with CRISTINA Saucedo, and a counselor, Amalia, both at [facility], . Patient had an appointment today and has an appointment with his counselor tomorrow, which has been cancelled. [facility] said they are able to get him into appointments as early as the beginning of next week, but to call once there is an estimated discharge date. Patient has been seeing his providers in person at their facility. States he also has a welfare case worker, Belem Roldan, at [facility] he has been in touch with monthly. " Upon evaluation patient endorsed the above information is accurate. Patient is still somewhat delirious appearing as he is slow to answer questions and appears to have some difficulty understanding his situation. Patient attributes this to the medication he took which makes him still feel groggy and tired. Despite this, he denied any suicidal or homicidal ideation. He states that he was recently depressed and had received some benefit from his recent inpatient stay. He denied that this was a suicide attempt. It was discussed with his nurse that patient has not been informed of recent news of potential new stroke which has been contributing to his depression in the past. Decision was made to continue one-to-one for now. Psychiatry will continue to follow. Allergies Allergy/AdvReac Type Severity Reaction Status Date / Time No Known Allergies Allergy Verified 06/05/21 15:32 Home Medications Medication Instructions Recorded Confirmed Type aspirin 81 mg tablet,delayed 81 mg PO QAM #17 tab 03/22/20 06/05/21 Rx release amlodipine 5 mg tablet 5 mg PO DAILY PRN 08/20/20 06/05/21 History atorvastatin 20 mg tablet 20 mg PO DAILY 08/20/20 06/05/21 History metformin 500 mg tablet 500 mg PO BID #0 tab 08/22/20 06/05/21 Rx hydralazine 25 mg tablet 25 mg PO TID #90 tab 09/10/20 06/05/21 Rx pantoprazole 40 mg tablet,delayed 40 mg PO DAILYBB 09/10/20 06/05/21 History release aripiprazole 2 mg tablet 2 mg PO DAILY 05/04/21 06/05/21 History oxycodone 5 mg tablet 5 mg PO Q6H PRN 05/04/21 06/05/21 History buspirone 5 mg tablet 5 mg PO TID 06/05/21 06/05/21 History clopidogrel 75 mg tablet (Plavix) 75 mg PO DAILY 06/05/21 06/05/21 History escitalopram oxalate 20 mg tablet 20 mg PO DAILY 06/05/21 06/05/21 History fluvoxamine 100 mg tablet 100 mg PO TID 06/05/21 06/05/21 History hydroxyzine pamoate 50 mg capsule 25 mg PO BID PRN 06/05/21 06/05/21 History lisinopril 30 mg tablet 30 mg PO DAILY 06/05/21 06/05/21 History lorazepam 1 mg tablet (Ativan) 0.5 mg PO Q8H PRN 06/05/21 06/05/21 History metoprolol succinate 12.5 mg PO DAILY 06/05/21 06/05/21 History trazodone 100 mg tablet 100 mg PO HS 06/05/21 06/05/21 History Personal History Beliefs That Will Affect Care: None Patient History Medical History (Updated 06/06/21 @ 15:52 by Digna Timmons PA-C) Abnormal MRI of head MRI 06/15/20 showed MCA infarcts as well as ring enhancement right posterior lobe. Repeat MRI recommended in 3 months. CAD (coronary artery disease) 2013 - NSTEMI s/p BRUCE to RCA Carotid stenosis, bilateral Depression DM type 2 (diabetes mellitus, type 2) Dyslipidemia History of cerebrovascular accident March 2020; subacute infarct noted to parietal lobe per 06/15/20 MRI Hypertension Ischemic cardiomyopathy EF=45% Surgical History (Updated 05/17/21 @ 11:09 by Lsely Erazo RN) Hx of endarterectomy (06/28/20) Right Carotid Endarterectomy with Bovine Patch Angioplasty Dr. Arita 06/28/2020 S/P drug eluting coronary stent placement Family History Mother , age 68 from metastatic lung cancer Lung cancer Father No problems noted. 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 Required: No Beliefs That Will Affect Care: None marital status: Single Current Living Situation: Alone Current Living Situation Comment: TRANSITION HOUSING current occupational status: previously employed current occupation: [employer] employee Other Information That Helps Us Care for You: No other: 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[employer], 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 Feels Safe at Home: Yes Safety Concerns: Feels Safe At This Time Assistive Devices: None Physical Exam Psychiatric: Orientation: alert Apperance: + disheveled Eye Contact: + fair eye contact Motor Behavior: + psychomotor retardation Speech: normal rate/rhythm/volume of speech Affect: + flat affect Mood: no depressed mood Thought Process: goal directed thought process Thought Content: reality based without delusions Suicidal Thoughts: denies suicidal thoughts, denies suicidal plan and denies suicidal intent Homicidal Thoughts: denies homicidal thoughts, denies homicidal plan and denies homicidal intent Hallucinations: no auditory hallucinations and no visual hallucinations Cognition: recent memory grossly intact Estimated Intelligence: average estimated intelligence Insight: + fair insight Judgement: + fair judgement Vital Signs (Past 24 Hours): Last Vital Signs Temp 36.7 C 06/06/21 15:26 Pulse 72 06/06/21 15:26 Resp 22 06/06/21 15:26 BP 167/106 H 06/06/21 15:26 Pulse Ox 94 06/06/21 15:26 Results & Data (PSY) Medications Administered Aripiprazole (Aripiprazole 1 Mg/Ml Oral Soln 150 Ml Btl) 2 mg PO DAILY [facility] Stop: 07/06/21 08:59 Last Admin: 06/06/21 08:36 Dose: 2 mg Documented by: [id number] Aspirin (Aspirin 81 Mg Ectab) 81 mg PO QAM [facility] Stop: 07/06/21 08:59 Last Admin: 06/06/21 08:37 Dose: 81 mg Documented by: [id number] Buspirone HCl (Buspirone 5 Mg Tab) 5 mg PO TID [facility] Stop: 07/05/21 20:59 Last Admin: 06/06/21 15:06 Dose: 5 mg Documented by: [id number] Admin: 06/06/21 08:37 Dose: 5 mg Documented by: [id number] Admin: 06/05/21 21:57 Dose: 5 mg Documented by: [id number] Clopidogrel Bisulfate (Clopidogrel Bisulfate 75 Mg Tab) 75 mg PO DAILY [facility] Stop: 07/06/21 08:59 Last Admin: 06/06/21 08:37 Dose: 75 mg Documented by: [id number] Escitalopram Oxalate (Escitalopram Oxalate 20 Mg Tab) 20 mg PO DAILY [facility] Stop: 07/06/21 08:59 Last Admin: 06/06/21 08:37 Dose: 20 mg Documented by: [id number] Fluvoxamine Maleate (Fluvoxamine Maleate 50 Mg Tab) 100 mg PO TID [facility] Stop: 07/05/21 20:59 Last Admin: 06/06/21 15:06 Dose: 100 mg Documented by: [id number] Admin: 06/06/21 08:36 Dose: 100 mg Documented by: [id number] Admin: 06/05/21 21:57 Dose: 100 mg Documented by: [id number] Sodium Chloride (Nss 1000ml) 1,000 mls @ 75 mls/hr IV .[id number] [facility] Stop: 06/06/21 22:51 Last Admin: 06/06/21 11:16 Dose: 75 mls/hr Documented by: [id number] Infusion: 06/06/21 11:15 Dose: 75 mls/hr Documented by: [id number] Admin: 06/05/21 21:55 Dose: 75 mls/hr Documented by: [id number] Insulin Aspart (Insulin Aspart 100 Units/Ml 3 Ml Pen) 0 units SC ACHS [facility] Stop: 07/05/21 20:59 Last Admin: 06/06/21 12:36 Dose: 1 units Documented by: [id number] Cosigned by: [id number] Admin: 06/06/21 08:35 Dose: 2 units Documented by: [id number] Cosigned by: [id number] Admin: 06/05/21 21:58 Dose: 2 units Documented by: [id number] Cosigned by: [id number] Metoprolol Succinate (Metoprolol Succ 25mg Ext Rel Tab) 12.5 mg PO QAM [facility] Stop: 07/06/21 08:59 Last Admin: 06/06/21 08:36 Dose: 12.5 mg Documented by: [id number] Pantoprazole Sodium (Pantoprazole 40 Mg Tab) 40 mg PO DAILYBB [facility] Stop: 07/06/21 06:29 Last Admin: 06/06/21 06:07 Dose: 40 mg Documented by: [id number] Coding Level of Care Code 38261 U Intl Hosp Care Lvl 2
--- NOTE | 2021-06-06 16:54 | Hospitalist Progress Note ---
Date of Service June 06, 2021 Assessment & Plan (1) Drug overdose: Plan: -Patient reports of taking extra dose of oxycodone, as he was having intractable pain Denies of any thoughts of self-harm Patient has ongoing psychiatric history, depression, . His previous suicidal ideation and reason for psychiatric hospitalization at the [facility] on 05/22/2021 through 05/31/2021 was due to threatening suicide with oxycodone tablets. -PDMP reviewed showing prescription for oxycodone 5 mg given on 05/15, 120 tablets, All narcotic pain medications discontinued, patient is awake and alert, normal O2 saturation Patient should not be prescribed any narcotic pain medications at discharge Psychiatry consulted appreciate input (2) Depression: Plan: - Abilify 20 mg daily, hydroxyzine 25 mg BID prn for anxiety, Lexapro 5 mg daily -Psych consult appreciated (3) Generalized weakness: Plan: Acute stroke: MRI of brain:8 mm focus of restricted water diffusion in the right parietal lobe, consistent with a small acute/subacute infarct. This is located in the region of the prior infarct. Patient has chronic left-sided weakness, from prior stroke Patient is continued with aspirin and Plavix, statin dose increased to 40 mg daily for high intensity statin treatment Echo ordered, neuro consult requested (4) Chronic ischemic right MCA stroke: Plan: -Prior stroke MRI of the brain showed sudden acute/subacute stroke as outlined above - (5) CAD (coronary artery disease): Plan: -Continue baby aspirin and Plavix No complaint of chest pain or shortness of breath (6) Dyslipidemia: Plan: Atorvastatin dose increased to 40 mg daily due to acute CVA (7) Hypertension: Plan: Hello permissive hypertension given recent stroke, BP meds resumed with holding parameters. (8) DM type 2 (diabetes mellitus, type 2): Plan: -Hold Metformin -ISS with Accu-Cheks AC at bedtime (9) BRUNA (acute kidney injury): Plan: Solved creatinine improved to baseline after IV fluids -Creatinine elevated at 2.02, BUN 11, baseline appears to be 1.3-1.4 DVT PPx: - teds, scds CODE: Full code Disposition, to be determined patient needs to be evaluated by psychiatry for determination of possible inpatient psychiatric admission Admission and Anticipated Discharge Date Admission Date: June 05, 2021 Subjective Patient seen at bedside, flat affect, reports of that he is feeling very depressed, Denies of any suicidal ideation, updated that he had a new stroke, patient is minimally interested about the information for stroke left sided weakness noted, patient reports it has unchanged from his prior stroke: No nausea vomiting or abdominal pain, denies of any chest pain or shortness of breath no dizzy spell No palpitation Patient reports that he took extra dose of pain medications only for his intractable pain,no intention of self harm reports that he has been feeling very down /depressed for weeks has not been drinking alcohol recently last drink was a month ago Ongoing tremor noted on both hands, No report of hallucination or delusions Review of Systems Review of Systems: Unobtainable due to mental health condition (depressed ) Physical Exam Constitutional: WD/WN, vitals as above + ill appearing Eyes: PERRL, conjunctivae normal, anicteric sclerae ENMT: external ear and nose normal, oropharynx normal Neck: trachea midline, no thyromegaly Respiratory: normal respiratory effort, lungs clear to auscultation Cardiovascular: RRR, no murmur, no edema Gastrointestinal (Abdomen): Inspection/Auscultation: abdomen normal to inspection Percussion/Palpation: abdomen soft; abdomen nontender Musculoskeletal: Left sided weakness, Skin: no rashes, warm and dry Neurologic: + focal motor deficit (Left-sided weakness,) and awake Motor/Sensory: + tremor (On both hands) Psychiatric: Orientation: oriented x 3 Eye Contact: + poor eye contact Affect: + depressed affect Results & Data Results & Data ([facility]) Vital Signs (Past 12 Hours) Vital Signs Temp Pulse Pulse Pulse Resp BP Pulse Ox 06/06/21 15:26 36.7 C 72 22 167/106 H 94 06/06/21 11:07 36.8 C 64 20 132/80 96 06/06/21 07:32 73 06/06/21 07:16 36.8 C 71 26 H 155/80 H 94 (1) Depression Depression Type: unspecified Qualified Code(s): F32.9 - Major depressive disorder, single episode, unspecified (2) Hypertension Hypertension type: essential hypertension Qualified Code(s): I10 - Essential (primary) hypertension
[2021-06-06] MEDS: ONDANSETRON INJ 2 MG/ML 2 ML VIAL IV PRN (16:59)
[2021-06-06] MEDS: HEPARIN SOD 5,000 UNIT/0.5 ML VIAL SQ SCH (20:20)
[2021-06-06] MEDS ORDERED: traZODone HCL 50 MG TAB PO ONE (20:38)
[2021-06-07] MEDS: ONDANSETRON INJ 2 MG/ML 2 ML VIAL IV PRN ×2 (04:51→16:58)
[2021-06-07] MEDS: PANTOprazole 40 MG TAB PO SCH (05:39)
[2021-06-07] MEDS ORDERED: LORazepam 0.5 MG TAB PO STA (05:50)
[2021-06-07] MEDS ORDERED: cloNIDine HCL 0.1 MG TAB PO ONE (06:00)
[2021-06-07 07:22] LABS: Eosinophils # (auto) 0.06 K/uL (0-0.5); Eosinophils % (auto) 0.5 %; Hematocrit (blood only) 41.7 % (42-52); Immature Granulocytes # (auto) 0.05 K/uL (0.00-0.02); Immature Granulocytes % (auto) 0.4 %; Lymphocytes # (auto) 1.51 K/uL (1.2-3.4); Lymphocytes % (auto) 11.4 %; Mean Corpuscular Hemoglobin 30.1 pg (25-34); Mean Corpuscular Volume 83.7 fL (80-100); Mean Platelet Volume 10.8 fL (7.4-10.4); Monocytes # (auto) 0.85 K/uL (0.11-0.59); Monocytes % (auto) 6.4 %; Neutrophils # (auto) 10.72 K/uL (1.4-6.5); Neutrophils % (auto) 81.3 %; Platelet Count 114 K/uL (130-400); RDW Coefficient of Variation 13.2 % (11.5-14.5); RDW Standard Deviation 39.4 fL (36.4-46.3); Red Blood Count 4.98 M/uL (4.7-6.1); White Blood Count 13.19 K/uL (4.8-10.8)
[2021-06-07] MEDS: INSULIN ASPART 100 UNITS/ML 3 ML PEN SC SCH ×4 (07:51→21:18)
[2021-06-07 07:52] LABS: Albumin Level 3.1 gm/dl (3.4-5.0); BUN Creatinine Ratio 12.4 (10-20); Calcium 9.3 mg/dl (8.5-10.1); Creatinine Clr Calc Pharmacy 71.6 ml/min; Est GFR (African American) 80.4 ml/min; Est GFR (Non-African American) 69.4 ml/min; Potassium 3.8 mmol/L (3.5-5.1)
[2021-06-07] MEDS: HEPARIN SOD 5,000 UNIT/0.5 ML VIAL SQ SCH ×2 (07:53→21:09)
[2021-06-07 07:54] LABS: Albumin Globulin Ratio 0.8 (0.9-2); Bilirubin,Total 0.7 mg/dl (0.2-1); Globulin 3.9 gm/dl (2.5-4.0)
[2021-06-07] MEDS: fluvoxaMINE MALEATE 50 MG TAB PO SCH ×3 (07:55→21:07)
[2021-06-07] MEDS: METOPROLOL SUCC 25MG EXT REL TAB PO SCH (07:56)
[2021-06-07] MEDS: busPIRone 5 MG TAB PO SCH ×3 (07:56→21:07)
[2021-06-07] MEDS: ASPIRIN 81 MG ECTAB PO SCH (07:57)
[2021-06-07] MEDS: ESCITALOPRAM OXALATE 20 MG TAB PO SCH (07:57)
[2021-06-07] MEDS: ATORVASTATIN 40 MG TAB PO SCH (07:57)
[2021-06-07] MEDS: CLOPIDOGREL BISULFATE 75 MG TAB PO SCH (07:57)
[2021-06-07] MEDS: ARIPIprazole 1 MG/ML ORAL SOLN 150 ML BTL PO SCH (07:58)
[2021-06-07] MEDS ORDERED: OPTIRAY 320 125ml IV ONE (11:29)
--- NOTE | 2021-06-07 12:30 | CT Scan Report ---
CT ANGIOGRAM OF THE BRAIN; CT ANGIOGRAM OF THE NECK CLINICAL HISTORY: Strokelike symptoms. COMPARISON STUDY: CT angiogram of the head and neck dated 08/20/2020. CT and MRI of the brain dated . TECHNIQUE: Following the IV administration of 119 of Optiray 320, CT angiogram of the head and neck w as performed from the aortic arch to the vertex. Images are reviewed in the axial, sagittal, and abigail nal planes. 3-D MIPS images are created and assessed. IV contrast was administered without complicati on. All measurements were calculated based on NASCET criteria. A dose lowering technique was utilize d adhering to the principles of ALARA. CT DOSE: 605.11 mGy.cm FINDINGS: Brain parenchyma: There is age advanced involutional change noting moderate subcortical and periventr icular microangiopathic disease. Right MCA territory encephalomalacia is consistent with a remote inf arct. There is no evidence of hemorrhage, mass effect, or acute territorial ischemia noting angiograp hic phase technique. There is no evidence of enhancing mass lesion on these angiogram phase images. T he ventricles, sulci, and cisterns are prominent secondary to involutional change. Dickens-white matter differentiation is preserved. No extra-axial fluid collection is seen. Thoracic aorta: There is atherosclerotic calcification of the thoracic aorta. Visualized portions of the thoracic aorta are normal in caliber. The aortic arch demonstrates 4-vessel variant anatomy. An a berrant right subclavian artery arises as a fourth branch and courses posterior to the esophagus. Right carotid arterial system: The right common carotid artery is widely patent noting atheromatous c hange distally. There is significant soft plaque within the right carotid bulb. This causes approxima tely 50% luminal narrowing. This has significantly increased from 08/20/2020. The remainder of the rig ht internal carotid artery is widely patent, as is the external carotid artery. Left carotid arterial system: The left common carotid artery is widely patent. There is advanced athe rosclerotic plaque in the left carotid bulb. This causes approximately 65 % focal stenosis of the pro ximal left internal carotid artery as seen on image #229. The remainder of the left internal carotid artery is widely patent, as is the left external carotid artery. Vertebral arteries: The vertebral arteries are patent bilaterally and codominant. Subclavian arteries: Widely patent bilaterally. Intracranial vasculature: There is atherosclerotic calcification of the cavernous carotid arteries. T here is mild narrowing of the cavernous carotid arteries secondary to calcified plaque. The internal carotid arteries are patent at the skull base, as are the anterior and middle cerebral arteries bilat erally. The vertebrobasilar system and posterior cerebral arteries are widely patent. The vertebral a rteries are codominant. There is no aneurysm, high-grade stenosis, or focal vessel cut off seen throu ghout the intracranial circulation. Jugular veins: Patent bilaterally. Dural sinuses: Patent. Lung apices: Patchy airspace consolidation is present in the upper lobes. Emphysematous change is not ed. Soft tissues: The visualized pharyngeal soft tissues are normal in appearance noting angiographic pha se technique. The oropharyngeal airway appears widely patent. The salivary and thyroid glands are nor mal in appearance. No cervical lymphadenopathy is seen. Skeletal structures: The skeletal structures appear osteopenic. The calvarium appears intact. The cer vical spine is within normal limits. No lytic or blastic lesion is seen. Orbits: The bony orbits are intact. Orbital contents are normal as visualized. Sinuses and mastoids: There are left larger than right mastoid effusions. Trace mucosal thickening is noted in the maxillary antra. The remaining paranasal sinuses are clear. IMPRESSION: 1. There is no evidence of hemorrhage, mass effect, or acute territorial ischemia noting angiographic phase technique. The tiny infarct seen by MRI is not apparent on CT. 2. There is mild narrowing of the cavernous carotid arteries secondary to calcified plaque. This is u nchanged from previous. 3. Otherwise unremarkable CT angiogram of the brain. 4. There is approximately 65% focal stenosis at the origin of the left internal carotid artery. This is unchanged from previous. 5. There is approximately 50% luminal narrowing at the origin of the right internal carotid artery se condary to soft plaque. This has significantly increased as compared to 08/20/2020. 6. Emphysema and patchy airspace consolidation is seen in the upper lobes. Correlate clinically for e vidence of pneumonia. ACT 112: Negative or not required by law. Electronically signed by: Samson Pham M.D. 06/07/2021 12:28 PM
[2021-06-07] MEDS ORDERED: LORazepam 1 MG/2 ML VIAL IV PRN (14:53)
--- NOTE | 2021-06-07 16:49 | Hospitalist Progress Note ---
Date of Service June 07, 2021 Assessment & Plan (1) Drug overdose: Plan: -Patient reports of taking extra dose of oxycodone, as he was having intractable pain Denies of any thoughts of self-harm Patient has ongoing psychiatric history, depression, . His previous suicidal ideation and reason for psychiatric hospitalization at the [facility] on 05/22/2021 through 05/31/2021 was due to threatening suicide with oxycodone tablets. -PDMP reviewed showing prescription for oxycodone 5 mg given on 05/15, 120 tablets, All narcotic pain medications discontinued, patient is awake and alert, normal O2 saturation Patient should not be prescribed any narcotic pain medications at discharge Psychiatry consulted appreciate input One-to-one observation discontinued continue every 15 check per nursing. (2) Depression: Plan: - Abilify 20 mg daily, hydroxyzine 25 mg BID prn for anxiety, Lexapro 5 mg daily -Psych consult appreciated (3) Generalized weakness: Plan: Acute stroke: MRI of brain:8 mm focus of restricted water diffusion in the right parietal lobe, consistent with a small acute/subacute infarct. This is located in the region of the prior infarct. Patient has chronic left-sided weakness, from prior stroke Patient is continued with aspirin and Plavix, statin dose increased to 40 mg daily for high intensity statin treatment Echo ordered, neuro consult appreciated, CTA of head and neck ordered. (4) Chronic ischemic right MCA stroke: Plan: -Prior stroke MRI of the brain showed sudden acute/subacute stroke as outlined above - (5) CAD (coronary artery disease): Plan: -Continue baby aspirin and Plavix No complaint of chest pain or shortness of breath (6) Dyslipidemia: Plan: Atorvastatin dose increased to 40 mg daily due to acute CVA (7) Hypertension: Plan: permissive hypertension given recent stroke, BP meds resumed with holding parameters. (8) DM type 2 (diabetes mellitus, type 2): Plan: -Hold Metformin -ISS with Accu-Cheks AC at bedtime (9) BRUNA (acute kidney injury): Plan: Solved creatinine improved to baseline after IV fluids -Creatinine was elevated at 2.02, BUN 11, baseline appears to be 1.3-1.4 DVT PPx: - teds, scds CODE: Full code Admission and Anticipated Discharge Date Admission Date: June 05, 2021 Subjective Patient offers no complaint, other than feeling depressed, Persistent left-sided weakness, very poor appetite ate only few bites throughout the day States food does not feel good to him at all, denies of any nausea vomiting or abdominal pain No headache or blurred vision, no dysphagia or swallowing issues Review of Systems Review of Systems: All systems reviewed & are unremarkable except as noted in Subjective Physical Exam Constitutional: WD/WN, vitals as above + ill appearing Eyes: PERRL, conjunctivae normal, anicteric sclerae ENMT: external ear and nose normal, oropharynx normal Neck: trachea midline, no thyromegaly Respiratory: normal respiratory effort, lungs clear to auscultation Cardiovascular: RRR, no murmur, no edema Gastrointestinal (Abdomen): Inspection/Auscultation: abdomen normal to inspection Percussion/Palpation: abdomen soft; abdomen nontender Skin: no rashes, warm and dry Neurologic: + focal motor deficit (Left-sided weakness,) and awake Motor/Sensory: + tremor (On both hands) Psychiatric: Orientation: oriented x 3 Eye Contact: + poor eye contact Affect: + depressed affect Results & Data Results & Data ([facility]) Vital Signs (Past 12 Hours) Vital Signs Temp Pulse Pulse Pulse Resp BP Pulse Ox 06/07/21 15:07 37.2 C 73 18 170/91 H 94 06/07/21 11:04 37.4 C 76 18 155/90 H 97 06/07/21 10:34 70 06/07/21 06:58 36.8 C 94 H 19 189/106 H 95 06/07/21 05:52 36.5 C 88 12 175/95 H 97 (1) Depression Depression Type: unspecified Qualified Code(s): F32.9 - Major depressive disorder, single episode, unspecified (2) Hypertension Hypertension type: essential hypertension Qualified Code(s): I10 - Essential (primary) hypertension
[2021-06-07] MEDS ORDERED: traZODone HCL 50 MG TAB PO SCH (21:00)
[2021-06-07] MEDS: LORazepam 0.5 MG TAB PO PRN (21:15)
[2021-06-08] MEDS: PANTOprazole 40 MG TAB PO SCH (05:55)
[2021-06-08 06:53] LABS: Basophils # (auto) 0.01 K/uL (0-0.2); Basophils % (auto) 0.1 %; Eosinophils # (auto) 0.16 K/uL (0-0.5); Eosinophils % (auto) 1.9 %; Hematocrit (blood only) 41.8 % (42-52); Hemoglobin 14.7 g/dL (14.0-18.0); Immature Granulocytes # (auto) 0.04 K/uL (0.00-0.02); Immature Granulocytes % (auto) 0.5 %; Lymphocytes # (auto) 1.74 K/uL (1.2-3.4); Lymphocytes % (auto) 20.3 %; Mean Corpuscular Hemoglobin 29.5 pg (25-34); Mean Corpuscular Hgb Conc 35.2 g/dL (32-36); Mean Corpuscular Volume 83.8 fL (80-100); Monocytes # (auto) 0.79 K/uL (0.11-0.59); Monocytes % (auto) 9.2 %; Neutrophils # (auto) 5.83 K/uL (1.4-6.5); Platelet Count 122 K/uL (130-400); RDW Coefficient of Variation 13.2 % (11.5-14.5); RDW Standard Deviation 39.5 fL (36.4-46.3); Red Blood Count 4.99 M/uL (4.7-6.1); White Blood Count 8.57 K/uL (4.8-10.8)
[2021-06-08 07:12] LABS: Albumin Level 3.1 gm/dl (3.4-5.0); BUN Creatinine Ratio 11.7 (10-20); Calcium 9.7 mg/dl (8.5-10.1); Creatinine Clr Calc Pharmacy 69.8 ml/min; Est GFR (African American) 78.1 ml/min; Est GFR (Non-African American) 67.4 ml/min; Potassium 3.8 mmol/L (3.5-5.1)
[2021-06-08 07:15] LABS: Albumin Globulin Ratio 0.8 (0.9-2); Bilirubin,Total 0.9 mg/dl (0.2-1); Total Protein 7.1 gm/dl (6.4-8.2)
[2021-06-08] MEDS: HEPARIN SOD 5,000 UNIT/0.5 ML VIAL SQ SCH ×2 (08:14→20:09)
[2021-06-08] MEDS: ESCITALOPRAM OXALATE 20 MG TAB PO SCH (08:15)
[2021-06-08] MEDS: METOPROLOL SUCC 25MG EXT REL TAB PO SCH ×2 (08:15→08:28)
[2021-06-08] MEDS: fluvoxaMINE MALEATE 50 MG TAB PO SCH ×3 (08:15→20:09)
[2021-06-08] MEDS: busPIRone 5 MG TAB PO SCH ×2 (08:16→15:08)
[2021-06-08] MEDS: ATORVASTATIN 40 MG TAB PO SCH (08:16)
[2021-06-08] MEDS: CLOPIDOGREL BISULFATE 75 MG TAB PO SCH (08:16)
[2021-06-08] MEDS: ARIPIprazole 1 MG/ML ORAL SOLN 150 ML BTL PO SCH (08:16)
[2021-06-08] MEDS: ASPIRIN 81 MG ECTAB PO SCH (08:18)
[2021-06-08] MEDS: INSULIN ASPART 100 UNITS/ML 3 ML PEN SC SCH ×4 (10:14→20:33)
--- NOTE | 2021-06-08 10:41 | Progress Notes ---
COMMUNICATION NOTE I have reviewed the patient's chart. He has a small cortical infarction in the right parietal region . I would recommend as an outpatient that he will wear a Zio patch for 2 weeks to rule out intermitt ent atrial fibrillation. Please schedule a followup upon discharge to our office. Job ID: [id number]
--- NOTE | 2021-06-08 15:54 | Communication Note ---
Date of Service: June 08, 2021 Patient seen, continues to state that he is not suicidal. Reports mood as improved without any acute symptoms at this time. Buspar, Trazodone and Escitalopram will be held currently as patient is taking multiple serotonergic agents. Fluvoxamine 100mg TID and Abilify 2mg PO daily will be continued for now. Will re-confirm medications prior to initiation of any more serotonergic agents.
--- NOTE | 2021-06-08 17:10 | Hospitalist Progress Note ---
Date of Service June 08, 2021 Assessment & Plan (1) Drug overdose: Plan: -Patient reports of taking extra dose of oxycodone, as he was having intractable pain Denies of any thoughts of self-harm Patient has ongoing psychiatric history, depression, . His previous suicidal ideation and reason for psychiatric hospitalization at the [facility] on 05/22/2021 through 05/31/2021 was due to threatening suicide with oxycodone tablets. -PDMP reviewed on admission prescription for oxycodone 5 mg given on 05/15, 120 tablets, All narcotic pain medications discontinued, patient is awake and alert, normal O2 saturation Patient should not be prescribed any narcotic pain medications at discharge Psychiatry consulted appreciate input pt is not suicidal , can be discharged to home /rehab when medically stable does not need inpatient Psych admission (2) Depression: Plan: - Abilify 20 mg daily, hydroxyzine 25 mg BID prn for anxiety, Lexapro 5 mg daily -Psych consult appreciated-on multiple SSRI -high risk for serotonin syndrome Medications adjusted by Psych was recently admitted to [facility] -in patient psych unit Psychiatry will reach out to [facility] on Thursday , (3) Generalized weakness: Plan: Acute stroke: MRI of brain:8 mm focus of restricted water diffusion in the right parietal lobe, consistent with a small acute/subacute infarct. This is located in the region of the prior infarct. Patient has chronic left-sided weakness, from prior stroke Patient is continued with aspirin and Plavix, statin dose increased to 40 mg daily for high intensity statin treatment Echo ordered, neuro consult appreciated, PT/OT eval (4) Chronic ischemic right MCA stroke: Plan: -Prior stroke MRI of the brain showed sudden acute/subacute stroke as outlined above - (5) CAD (coronary artery disease): Plan: -Continue baby aspirin and Plavix No complaint of chest pain or shortness of breath (6) Dyslipidemia: Plan: Atorvastatin dose increased to 40 mg daily due to acute CVA (7) Hypertension: Plan: permissive hypertension given recent stroke, BP meds resumed with holding parameters. (8) DM type 2 (diabetes mellitus, type 2): Plan: -Hold Metformin -ISS with Accu-Cheks AC at bedtime (9) BRUNA (acute kidney injury): Plan: resolved Solved creatinine improved to baseline after IV fluids -Creatinine was elevated at 2.02, BUN 11, baseline appears to be 1.3-1.4 DVT PPx: - teds, scds CODE: Full code Admission and Anticipated Discharge Date Admission Date: June 05, 2021 Subjective says feels very weak and tired , offers no complains persistent left sided weakness no fever or chills no cough or SOB Review of Systems Review of Systems: All systems reviewed & are unremarkable except as noted in Subjective Physical Exam Constitutional: WD/WN, vitals as above + ill appearing Eyes: PERRL, conjunctivae normal, anicteric sclerae ENMT: external ear and nose normal, oropharynx normal Neck: trachea midline, no thyromegaly Respiratory: normal respiratory effort, lungs clear to auscultation Cardiovascular: RRR, no murmur, no edema Gastrointestinal (Abdomen): Inspection/Auscultation: abdomen normal to inspection Percussion/Palpation: abdomen soft; abdomen nontender Skin: no rashes, warm and dry Neurologic: + focal motor deficit (Left-sided weakness,) and awake Motor/Sensory: + tremor (On both hands) Psychiatric: Orientation: oriented x 3 Eye Contact: + poor eye contact Affect: + depressed affect Results & Data Results & Data ([facility]) Vital Signs (Past 12 Hours) Vital Signs Temp Pulse Pulse Resp BP Pulse Ox 06/08/21 14:33 37.2 C 63 18 131/79 94 06/08/21 11:20 37.1 C 47 L 16 133/77 95 06/08/21 08:00 56 L 06/08/21 07:16 36.9 C 64 18 161/76 H 97 (1) Depression Depression Type: unspecified Qualified Code(s): F32.9 - Major depressive disorder, single episode, unspecified (2) Hypertension Hypertension type: essential hypertension Qualified Code(s): I10 - Essential (primary) hypertension
[2021-06-08] MEDS: LORazepam 0.5 MG TAB PO PRN (21:11)
[2021-06-08] MEDS: hydrOXYzine HCl 25 MG TAB PO PRN (23:14)
[2021-06-09 05:34] LABS: Basophils # (auto) 0.02 K/uL (0-0.2); Basophils % (auto) 0.2 %; Eosinophils # (auto) 0.24 K/uL (0-0.5); Eosinophils % (auto) 2.8 %; Hematocrit (blood only) 43.6 % (42-52); Hemoglobin 15.3 g/dL (14.0-18.0); Immature Granulocytes # (auto) 0.04 K/uL (0.00-0.02); Immature Granulocytes % (auto) 0.5 %; Lymphocytes # (auto) 2.13 K/uL (1.2-3.4); Lymphocytes % (auto) 24.5 %; Mean Corpuscular Hemoglobin 29.7 pg (25-34); Mean Corpuscular Hgb Conc 35.1 g/dL (32-36); Mean Corpuscular Volume 84.7 fL (80-100); Mean Platelet Volume 10.4 fL (7.4-10.4); Monocytes # (auto) 0.69 K/uL (0.11-0.59); Monocytes % (auto) 7.9 %; Neutrophils # (auto) 5.58 K/uL (1.4-6.5); Neutrophils % (auto) 64.1 %; Platelet Count 137 K/uL (130-400); RDW Coefficient of Variation 13.1 % (11.5-14.5); RDW Standard Deviation 40.7 fL (36.4-46.3); Red Blood Count 5.15 M/uL (4.7-6.1)
[2021-06-09] MEDS: PANTOprazole 40 MG TAB PO SCH (05:45)
[2021-06-09 05:49] LABS: BUN Creatinine Ratio 13.3 (10-20); Calcium 9.7 mg/dl (8.5-10.1); Creatinine Clr Calc Pharmacy 70.4 ml/min; Est GFR (African American) 78.8 ml/min; Potassium 3.8 mmol/L (3.5-5.1)
[2021-06-09] MEDS: ARIPIprazole 1 MG/ML ORAL SOLN 150 ML BTL PO SCH (08:23)
[2021-06-09] MEDS: ATORVASTATIN 40 MG TAB PO SCH (08:23)
[2021-06-09] MEDS: fluvoxaMINE MALEATE 50 MG TAB PO SCH ×3 (08:24→20:12)
[2021-06-09] MEDS: ASPIRIN 81 MG ECTAB PO SCH (08:25)
[2021-06-09] MEDS: METOPROLOL SUCC 25MG EXT REL TAB PO SCH ×2 (08:26→08:27)
[2021-06-09] MEDS: HEPARIN SOD 5,000 UNIT/0.5 ML VIAL SQ SCH ×2 (08:27→20:12)
[2021-06-09] MEDS: CLOPIDOGREL BISULFATE 75 MG TAB PO SCH (08:27)
[2021-06-09] MEDS: INSULIN ASPART 100 UNITS/ML 3 ML PEN SC SCH ×4 (09:53→20:19)
[2021-06-09] MEDS: ONDANSETRON INJ 2 MG/ML 2 ML VIAL IV PRN (12:29)
--- NOTE | 2021-06-09 15:32 | Hospitalist Progress Note ---
Date of Service June 09, 2021 Assessment & Plan (1) Drug overdose: Plan: doing well , says his mood been stable no thought of self harm -Patient reports of taking extra dose of oxycodone, as he was having intractable pain Denies of any thoughts of self-harm Patient has ongoing psychiatric history, depression, . His previous suicidal ideation and reason for psychiatric hospitalization at the [facility] on 05/22/2021 through 05/31/2021 was due to threatening suicide with oxycodone tablets. -PDMP reviewed on admission prescription for oxycodone 5 mg given on 05/15, 120 tablets, All narcotic pain medications discontinued, patient is awake and alert, normal O 2 saturation Patient should not be prescribed any narcotic pain medications at discharge Psychiatry consulted appreciate input pt is not suicidal , can be discharged to home /rehab when medically stable does not need inpatient Psych admission (2) Depression: Plan: - Abilify 20 mg daily, hydroxyzine 25 mg BID prn for anxiety, Lexapro 5 mg daily -Psych consult appreciated-on multiple SSRI -high risk for serotonin syndrome Medications adjusted by Psych was recently admitted to [facility] -in patient psych unit Psychiatry will reach out to [facility] on Thursday , (3) Generalized weakness: Plan: Acute stroke: MRI of brain:8 mm focus of restricted water diffusion in the right parietal lobe, consistent with a small acute/subacute infarct. This is located in the region of the prior infarct. Patient has chronic left-sided weakness, from prior stroke Patient is continued with aspirin and Plavix, statin dose increased to 40 mg daily for high intensity statin treatment Echo ordered, neuro consult appreciated, PT/OT eval discussed option for inpatient rehab post acute stroke pt prefers to return to home with home PT will ask PT to re-evaluate in am (4) Chronic ischemic right MCA stroke: Plan: -Prior stroke MRI of the brain showed sudden acute/subacute stroke as outlined above - (5) CAD (coronary artery disease): Plan: -Continue baby aspirin and Plavix No complaint of chest pain or shortness of breath (6) Dyslipidemia: Plan: Atorvastatin dose increased to 40 mg daily due to acute CVA (7) Hypertension: Plan: permissive hypertension given recent stroke, BP meds resumed with holding parameters. (8) DM type 2 (diabetes mellitus, type 2): Plan: -Hold Metformin -ISS with Accu-Cheks AC at bedtime (9) BRUNA (acute kidney injury): Plan: resolved Solved creatinine improved to baseline after IV fluids -Creatinine was elevated at 2.02, BUN 11, baseline appears to be 1.3-1.4 DVT PPx: - teds, scds CODE: Full code Disposition : possible discharge in AM Admission and Anticipated Discharge Date Admission Date: June 05, 2021 Subjective had a better day today feels that he is getting back to his baseline mood is stable persisted weakness on left upper and lower ext from recent stroke no dysarthria no complain of chest pain , no fever or chills Review of Systems Review of Systems: All systems reviewed & are unremarkable except as noted in Subjective Physical Exam Constitutional: WD/WN, vitals as above + ill appearing Eyes: PERRL, conjunctivae normal, anicteric sclerae ENMT: external ear and nose normal, oropharynx normal Neck: trachea midline, no thyromegaly Respiratory: normal respiratory effort, lungs clear to auscultation Cardiovascular: RRR, no murmur, no edema Gastrointestinal (Abdomen): Inspection/Auscultation: abdomen normal to inspection Percussion/Palpation: abdomen soft; abdomen nontender Skin: no rashes, warm and dry Neurologic: + focal motor deficit (Left-sided weakness,) and awake Motor/Sensory: + tremor (On both hands) Psychiatric: Orientation: oriented x 3 Eye Contact: + poor eye contact Affect: + depressed affect Results & Data Results & Data ([facility]) Vital Signs (Past 12 Hours) Vital Signs Temp Pulse Pulse Resp BP Pulse Ox 06/09/21 15:04 37.1 C 64 18 173/96 H 94 06/09/21 11:03 37.1 C 64 18 160/87 H 94 06/09/21 08:00 63 06/09/21 07:09 37.0 C 69 16 170/90 H 95 (1) Depression Depression Type: unspecified Qualified Code(s): F32.9 - Major depressive disorder, single episode, unspecified (2) Hypertension Hypertension type: essential hypertension Qualified Code(s): I10 - Essential (primary) hypertension
[2021-06-09] MEDS: MELATONIN 3 MG TAB PO PRN (20:10)
[2021-06-09] MEDS: LORazepam 0.5 MG TAB PO PRN (20:10)
[2021-06-09] MEDS: hydrOXYzine HCl 25 MG TAB PO PRN (23:01)
[2021-06-10] MEDS: PANTOprazole 40 MG TAB PO SCH (05:38)
[2021-06-10] MEDS: METOPROLOL SUCC 25MG EXT REL TAB PO SCH ×2 (07:32→07:51)
[2021-06-10] MEDS: ATORVASTATIN 40 MG TAB PO SCH (07:50)
[2021-06-10] MEDS: ASPIRIN 81 MG ECTAB PO SCH (07:50)
[2021-06-10] MEDS: fluvoxaMINE MALEATE 50 MG TAB PO SCH ×2 (07:51→21:45)
[2021-06-10] MEDS: CLOPIDOGREL BISULFATE 75 MG TAB PO SCH (07:51)
[2021-06-10] MEDS: ARIPIprazole 1 MG/ML ORAL SOLN 150 ML BTL PO SCH (07:51)
[2021-06-10] MEDS: HEPARIN SOD 5,000 UNIT/0.5 ML VIAL SQ SCH ×2 (07:52→21:47)
[2021-06-10] MEDS ORDERED: hydrALAZINE HCL 20 MG/ML VIAL IV PRN (08:13)
[2021-06-10] MEDS: INSULIN ASPART 100 UNITS/ML 3 ML PEN SC SCH ×4 (08:47→21:07)
[2021-06-10] MEDS: ONDANSETRON INJ 2 MG/ML 2 ML VIAL IV PRN (09:15)
[2021-06-10] MEDS: NICOTINE 21 MG/24 HR TDSY TD SCH (11:53)
--- NOTE | 2021-06-10 11:57 | Communication Note ---
Date of Service: June 10, 2021 Records obtained from recent inpatient psychiatric facility "[facility]" from their records patient is currently taking the following psychiatric medications trazodone 100 mg nightly BuSpar 5 mg 3 times daily Fluvoxamine 100 mg twice daily Patient is no longer taking Abilify, Lexapro, fluoxetine. The necessary changes have been made to his current regimen while here in the hospital to resume his previous regimen.
--- NOTE | 2021-06-10 13:21 | Hospitalist Progress Note ---
Date of Service June 10, 2021 Assessment & Plan (1) Drug overdose: Plan: doing well , says his mood been stable no thought of self harm -Patient reports of taking extra dose of oxycodone, as he was having intractable pain Denies of any thoughts of self-harm Patient has ongoing psychiatric history, depression,recent psych admission . His previous suicidal ideation and psychiatric hospitalization at the [facility] on 05/22/2021 through 05/31/2021 was due to threatening suicide with oxycodone tablets. -PDMP reviewed on admission prescription for oxycodone 5 mg given on 05/15, 120 tablets, All narcotic pain medications discontinued, patient is awake and alert, normal O2 saturation Patient should not be prescribed any narcotic pain medications at discharge Psychiatry consulted appreciate input pt's mood been stable , no SI , no agitation , [facility] is [facility] , can be discharged to home /rehab when medically stable does not need inpatient Psych admission (2) Depression: Plan: - Abilify 20 mg daily, hydroxyzine 25 mg BID prn for anxiety, Lexapro 5 mg daily -Psych consult appreciated-on multiple SSRI -high risk for serotonin syndrome was recently admitted to [facility] -in patient psych unit med list from [facility] updated by Psych -appreciate input pt does not need inpatient Psych admission recommends out patient follow up with Primary Psychiatric service (3) Generalized weakness: (4) Chronic ischemic right MCA stroke: Plan: -Prior stroke MRI of the brain showed sudden acute/subacute stroke as outlined above - (5) CAD (coronary artery disease): Plan: -Continue baby aspirin and Plavix No complaint of chest pain or shortness of breath (6) Dyslipidemia: Plan: Atorvastatin dose increased to 40 mg daily due to acute CVA (7) Hypertension: Plan: permissive hypertension given recent stroke, BP meds resumed with holding parameters. (8) DM type 2 (diabetes mellitus, type 2): Plan: -Hold Metformin -ISS with Accu-Cheks AC at bedtime (9) BRUNA (acute kidney injury): Plan: resolved Solved creatinine improved to baseline after IV fluids -Creatinine was elevated at 2.02, BUN 11, baseline appears to be 1.3-1.4 (10) Acute CVA (cerebrovascular accident): Plan: Acute stroke: MRI of brain:8 mm focus of restricted water diffusion in the right parietal lobe, consistent with a small acute/subacute infarct. This is located in the region of the prior infarct. Patient has chronic left-sided weakness, from prior stroke Patient is continued with aspirin and Plavix, statin dose increased to 40 mg daily for high intensity statin treatment neuro consult appreciated PT/OT eval appreciated will need acute rehab per physical therapy evaluation discussed the option for going to rehab for few weeks to increase strength of his left leg/arm and increase balance pt agrees Disposition ; needs referral to acute rehab -acute CVA transfer to rehab when insurance auth and bed available DVT PPx: - teds, scds CODE: Full code Admission and Anticipated Discharge Date Admission Date: June 05, 2021 Subjective follow up visit for drug overdose /acute stroke : pt reports doing better today less fatigued today more interactive today walked on the hallway with PT earlier , no complain of headache , no dizzy spell or lightheadedness no cough or sob , no fever or chills Review of Systems Review of Systems: All systems reviewed & are unremarkable except as noted in Subjective Physical Exam Constitutional: WD/WN, vitals as above + ill appearing Eyes: PERRL, conjunctivae normal, anicteric sclerae ENMT: external ear and nose normal, oropharynx normal Neck: trachea midline, no thyromegaly Respiratory: normal respiratory effort, lungs clear to auscultation Cardiovascular: RRR, no murmur, no edema Gastrointestinal (Abdomen): Inspection/Auscultation: abdomen normal to inspection Percussion/Palpation: abdomen soft; abdomen nontender Skin: no rashes, warm and dry Neurologic: + focal motor deficit (Left-sided weakness,) and awake Motor/Sensory: + tremor (On both hands) Psychiatric: Orientation: oriented x 3 Affect: + flat affect Results & Data Results & Data ([facility]) Vital Signs (Past 12 Hours) Vital Signs Temp Pulse Pulse Resp BP BP Pulse Ox 06/10/21 10:58 36.7 C 61 18 172/88 H 96 06/10/21 08:45 154/90 H 06/10/21 08:44 165/91 H 06/10/21 07:48 36.9 C 66 18 193/97 H 97 06/10/21 07:17 65 06/10/21 03:15 37.1 C 67 20 179/90 H 96 (1) Depression Depression Type: unspecified Qualified Code(s): F32.9 - Major depressive disorder, single episode, unspecified (2) Hypertension Hypertension type: essential hypertension Qualified Code(s): I10 - Essential (primary) hypertension
[2021-06-10] MEDS: busPIRone 5 MG TAB PO SCH ×2 (14:05→21:46)
[2021-06-10] MEDS ORDERED: traZODone HCL 100 MG TAB PO SCH (21:00)
[2021-06-10] MEDS: LORazepam 0.5 MG TAB PO PRN (21:44)
[2021-06-10] MEDS: MELATONIN 3 MG TAB PO PRN (21:44)
[2021-06-11] MEDS: hydrOXYzine HCl 25 MG TAB PO PRN (05:26)
[2021-06-11] MEDS: PANTOprazole 40 MG TAB PO SCH (05:26)
[2021-06-11] MEDS: ATORVASTATIN 40 MG TAB PO SCH (08:26)
[2021-06-11] MEDS: METOPROLOL SUCC 25MG EXT REL TAB PO SCH (08:26)
[2021-06-11] MEDS: HEPARIN SOD 5,000 UNIT/0.5 ML VIAL SQ SCH (08:26)
[2021-06-11] MEDS: CLOPIDOGREL BISULFATE 75 MG TAB PO SCH (08:27)
[2021-06-11] MEDS: busPIRone 5 MG TAB PO SCH ×2 (08:27→14:02)
[2021-06-11] MEDS: ASPIRIN 81 MG ECTAB PO SCH (08:27)
[2021-06-11] MEDS: fluvoxaMINE MALEATE 50 MG TAB PO SCH (08:27)
[2021-06-11] MEDS: NICOTINE 21 MG/24 HR TDSY TD SCH (08:28)
[2021-06-11] MEDS: INSULIN ASPART 100 UNITS/ML 3 ML PEN SC SCH ×3 (08:32→18:45)
[2021-06-11] MEDS: ONDANSETRON INJ 2 MG/ML 2 ML VIAL IV PRN (11:31)
[2021-06-11 13:01] LABS: Codeine Urine NEGATIVE ng/mL (<50); Hydrocodone Urine NEGATIVE ng/mL (<50); Hydromor Urine NEGATIVE ng/mL (<50); MDA negative; MDEA negative; MDMA (Ecstasy) Urine, Confirm negative; Morphine Urine NEGATIVE ng/mL (<50); Norhydrocodone Conf Ur NEGATIVE ng/mL (<50); Noroxycodone Urine >10000 ng/mL (<50); Oxycodone Urine >10000 ng/mL (<50); Oxymorph Urine 5000 ng/mL (<50)
[2021-06-11] MEDS ORDERED: STROKE PATIENT DISCHARGE STA (15:53)
--- NOTE | 2021-06-11 15:54 | Hospitalist Progress Note ---
Date of Service June 11, 2021 Assessment & Plan (1) Drug overdose: Plan: doing well , says his mood been stable no thought of self harm -Patient reports of taking extra dose of oxycodone, as he was having intractable pain Denies of any thoughts of self-harm Patient has ongoing psychiatric history, depression,recent psych admission . His previous suicidal ideation and psychiatric hospitalization at the [facility] on 05/22/2021 through 05/31/2021 was due to threatening suicide with oxycodone tablets. -PDMP reviewed on admission prescription for oxycodone 5 mg given on 05/15, 120 tablets, All narcotic pain medications discontinued, patient is awake and alert, normal O2 saturation Patient should not be prescribed any narcotic pain medications at discharge Psychiatry consulted appreciate input pt's mood been stable , no SI , no agitation , per pscy pt is not suicidal , can be discharged to home /rehab when medically stable does not need inpatient Psych admission psych meds adjusted , (2) Depression: Plan: - Abilify 20 mg daily, hydroxyzine 25 mg BID prn for anxiety, Lexapro 5 mg daily -Psych consult appreciated-on multiple SSRI -high risk for serotonin syndrome was recently admitted to [facility] -in patient psych unit med list from [facility] updated by Psych -appreciate input pt does not need inpatient Psych admission recommends out patient follow up with Primary Psychiatric service (3) Generalized weakness: (4) Chronic ischemic right MCA stroke: Plan: -Prior stroke MRI of the brain showed sudden acute/subacute stroke as outlined above - (5) CAD (coronary artery disease): Plan: -Continue baby aspirin and Plavix No complaint of chest pain or shortness of breath (6) Dyslipidemia: Plan: Atorvastatin dose increased to 40 mg daily due to acute CVA (7) Hypertension: Plan: permissive hypertension given recent stroke, BP meds resumed with holding parameters. (8) DM type 2 (diabetes mellitus, type 2): Plan: -Hold Metformin -ISS with Accu-Cheks AC at bedtime (9) BRUNA (acute kidney injury): Plan: resolved Solved creatinine improved to baseline after IV fluids -Creatinine was elevated at 2.02, BUN 11, baseline appears to be 1.3-1.4 (10) Acute CVA (cerebrovascular accident): Plan: Acute stroke: MRI of brain:8 mm focus of restricted water diffusion in the right parietal lobe, consistent with a small acute/subacute infarct. This is located in the region of the prior infarct. Patient has chronic left-sided weakness, from prior stroke Patient is continued with aspirin and Plavix, statin dose increased to 40 mg daily for high intensity statin treatment neuro consult appreciated PT/OT eval appreciated will need acute rehab per physical therapy evaluation discussed the option for going to rehab for few weeks to increase strength of his left leg/arm and increase balance pt agrees Disposition ; insurance denied for acute rehab at [facility] pt is discharged to home with home health and home PT DVT PPx: - teds, scds CODE: Full code Admission and Anticipated Discharge Date Admission Date: June 05, 2021 Subjective follow up visit for drug overdose /acute stroke : doing well , able to walk with walker , no loss of balance , no assistance needed weakness on left arm and leg unchanged no cough ,no SOB , no fever or chills insurance denied [facility] for rehab pt wants to return home with home health and home PT Review of Systems Review of Systems: All systems reviewed & are unremarkable except as noted in Subjective Physical Exam Constitutional: WD/WN, vitals as above + ill appearing Eyes: PERRL, conjunctivae normal, anicteric sclerae ENMT: external ear and nose normal, oropharynx normal Neck: trachea midline, no thyromegaly Respiratory: normal respiratory effort, lungs clear to auscultation Cardiovascular: RRR, no murmur, no edema Gastrointestinal (Abdomen): Inspection/Auscultation: abdomen normal to inspection Percussion/Palpation: abdomen soft; abdomen nontender Skin: no rashes, warm and dry Neurologic: + focal motor deficit (Left-sided weakness,) and awake Motor/Sensory: + tremor (On both hands) Psychiatric: Orientation: oriented x 3 Eye Contact: + poor eye contact Affect: + flat affect Results & Data Results & Data ([facility]) Vital Signs (Past 12 Hours) Vital Signs Temp Pulse Resp BP Pulse Ox 06/11/21 15:19 36.9 C 70 20 152/87 H 96 06/11/21 11:00 36.7 C 65 18 164/87 H 98 06/11/21 07:27 36.7 C 76 16 160/90 H 95 (1) Depression Depression Type: unspecified Qualified Code(s): F32.9 - Major depressive disorder, single episode, unspecified (2) Hypertension Hypertension type: essential hypertension Qualified Code(s): I10 - Essential (primary) hypertension
--- NOTE | 2021-06-11 16:26 | Pharmacy Report ---
Pharmacist Stroke Counseling - Date of Service June 11, 2021 - Scope: Pharmacy has been consulted to provide medication discharge counseling for this patient admitted with [ischemic stroke] per the Pharmacist Discharge Counseling for Stroke Patients Protocol. - Medications on Discharge: Home Medications Medication Instructions Recorded Confirmed pantoprazole 40 mg tablet,delayed 40 mg PO DAILYBB 09/10/20 06/05/21 release buspirone 5 mg tablet 5 mg PO TID 06/05/21 06/05/21 clopidogrel 75 mg tablet (Plavix) 75 mg PO DAILY 06/05/21 06/05/21 hydroxyzine pamoate 50 mg capsule 25 mg PO BID PRN 06/05/21 06/05/21 lisinopril 30 mg tablet 30 mg PO DAILY 06/05/21 06/05/21 lorazepam 1 mg tablet (Ativan) 0.5 mg PO Q8H PRN 06/05/21 06/05/21 metoprolol succinate 12.5 mg PO DAILY 06/05/21 06/05/21 trazodone 100 mg tablet 100 mg PO HS 06/05/21 06/05/21 New Rx's Medication Instructions Recorded aspirin 81 mg tablet,delayed 81 mg PO QAM #17 tab 03/22/20 release metformin 500 mg tablet 500 mg PO BID #0 tab 08/22/20 hydralazine 25 mg tablet 25 mg PO TID #90 tab 09/10/20 atorvastatin 40 mg tablet 40 mg PO QAM 30 Days #30 tab 06/11/21 fluvoxamine 100 mg tablet 100 mg PO BID #0 tab 06/11/21 - Action: The above medications, specifically ones for stroke treatment/prophylaxis, have been reviewed in detail with the patient and/or patient public utilities sales representative(s) prior to discharge. This includes indication, common adverse reactions, drug interactions, and medication administration. Medication counseling has been employed using the teach-back method to ensure understanding. - Outcome: The patient and/or patient public utilities sales representative(s) have demonstrated understanding of the medications. Additional comments (phone interview): * Pt on ASA 81mg + clopidogrel 75mg + atorvastatin 20mg daily prior to admission * Only med change with relation to stroke is that this atorvastatin was increased to 40mg daily. He uses a pill box at home for his meds. We discussed needing to update his meds to include the increased dose of atorvastatin. * We also discussed potential to notice increased bleed/bruising with ASA 81mg + clopidogrel. Pt reports he has not noticed this prior to admission. We also discussed the importance of procedures including routine dental leaning that may make him prone to gum bleeding. * We also discussed that his pantoprazole (PPI) is a good choice for a PPI when considering potential D/I with clopidogrel. * Pt will see neurology within 2 weeks of discharge for additional follow up. Thank you for allowing pharmacy to be involved in the care of this patient. Please call [phone] with any additional questions
--- NOTE | 2021-06-12 13:56 | Discharge Summary ---
Date of Service June 12, 2021 Admission HPI Per Admitting Provider This is a 50 yo M with PMHx of CAD s/p stenting, right carotid endarterectomy, history of CVA, depression, DM type II current tobacco smoker. Reports to the ER feeling "weak and not feeling quite right". He is now presenting with new onset of hypoxia with 85% on room air initially. Now his sats have improved to mid 90s on 2L. He is drowsy during exam, and gives mostly 1 word answers. He has a history of suicidal ideation with recent ER visit on 05/22/2021 where he was admitted to the [facility] on , for suicidal ideation with oxycodone tablets. He was discharged on 05/31/21. PDMP review shows his last prescription for oxycodone was issued on 05/15 for a 20-day supply with 120 tablets of oxycodone 5 mg. He admits to taking three or four, 5 mg tablets at once this morning and then afterwards felt more weakness, slumped over and fell and bumped his head, and felt more short of breath. He reports being able to smoke 4 to 5 cigarettes, then, he called an ambulance which brought him to the ER due to shortness of breath. He denies any suicidal or homicidal ideations. Reports that he took oxycodone because of neuropathy in his legs. He is not sure how many oxycodone tablets are left in that prescription at home. Patient reports that he follows with psychiatry as an outpatient, Darcy Melendez in [place], and also has a therapist and CM. He has appointments scheduled with these people for follow up from his recent inpatient stay at the [facility]. With skills in [place] through [facility], and bilingual case manager through [facility]. Principal Diagnosis Acute Stroke Discharge Data Allergies Allergy/AdvReac Type Severity Reaction Status Date / Time No Known Allergies Allergy Verified 06/05/21 15:32 Consultations 06/05/21 16:20 ED Decision to Admit Stat 06/05/21 20:12 Consult Psychiatry Routine 06/06/21 08:01 Consult Neurology Routine Ordered Studies 06/05/21 14:22 CT head/brain wo con Stat 06/05/21 17:22 MR brain wo con Stat US duplex renal artery Stat 06/07/21 10:25 CT angio head w con Routine CT angio neck with con Routine Hospital Course (1) Drug overdose: doing well , says his mood been stable no thought of self harm -Patient reports of taking extra dose of oxycodone, as he was having intractable pain Denies of any thoughts of self-harm Patient has ongoing psychiatric history, depression,recent psych admission . His previous suicidal ideation and psychiatric hospitalization at the [facility] on 05/22/2021 through 05/31/2021 was due to threatening suicide with oxycodone tablets. -PDMP reviewed on admission prescription for oxycodone 5 mg given on 05/15, 120 tablets, All narcotic pain medications discontinued, patient is awake and alert, normal O2 saturation Patient should not be prescribed any narcotic pain medications at discharge Psychiatry consulted appreciate input pt's mood been stable , no SI , no agitation , per pscyh pt is not suicidal , can be discharged to home /rehab when medically stable does not need inpatient Psych admission psych meds adjusted , (2) Depression: - Abilify 20 mg daily, hydroxyzine 25 mg BID prn for anxiety, Lexapro 5 mg daily -Psych consult appreciated-on multiple SSRI -high risk for serotonin syndrome was recently admitted to [facility] -in patient psych unit med list from [facility] updated by Psych -appreciate input pt does not need inpatient Psych admission recommends out patient follow up with Primary Psychiatric service (3) Generalized weakness: (4) Chronic ischemic right MCA stroke: -Prior stroke MRI of the brain showed sudden acute/subacute stroke as outlined above - (5) CAD (coronary artery disease): -Continue baby aspirin and Plavix No complaint of chest pain or shortness of breath (6) Dyslipidemia: Atorvastatin dose increased to 40 mg daily due to acute CVA (7) Hypertension: permissive hypertension given recent stroke, BP meds resumed with holding parameters. (8) DM type 2 (diabetes mellitus, type 2): -Hold Metformin -ISS with Accu-Cheks AC at bedtime (9) BRUNA (acute kidney injury): resolved Solved creatinine improved to baseline after IV fluids -Creatinine was elevated at 2.02, BUN 11, baseline appears to be 1.3-1.4 (10) Acute CVA (cerebrovascular accident): Acute stroke: MRI of brain:8 mm focus of restricted water diffusion in the right parietal lobe, consistent with a small acute/subacute infarct. This is located in the region of the prior infarct. Patient has chronic left-sided weakness, from prior stroke Patient is continued with aspirin and Plavix, statin dose increased to 40 mg daily for high intensity statin treatment neuro consult appreciated PT/OT eval appreciated will need acute rehab per physical therapy evaluation discussed the option for going to rehab for few weeks to increase strength of his left leg/arm and increase balance pt agrees Disposition ; insurance denied for acute rehab at [facility] pt is discharged to home with home health and home PT DVT PPx: - teds, scds CODE: Full code Total Time Total Time Spent Total Time Spent (In Minutes): 35 mins Discharge Plan Discharge Items Patient Disposition: Home - Self-Care Reason For Visit: HYPOXIA, TACHYCARDIA, DRUG OVERDOSE Discharge Diagnosis: ACUTE STROKE Activity: As commented below Activity Comment: TOLERATED Non-emergency contact: Primary Care Provider Call non-emergency contact if: you have any medication questions Follow-up/Referrals: Digna Timmons PA-C [Physician Upholstery Trimmer] - (IN 4-6 WEEKS ) Pedro Pablo Gaspar MD [Primary Care Provider] - (Date & Time 06/14/2021 11:00 AM Provider Pedro Pablo Gaspar MD Department Family Practice [facility] [place] ) Diet: Heart Healthy Add Attending Provider Instructions: Please take all medications as instructed on discharge list below. Please call if you have any questions or problems. You can reach a [facility] hospitalist on duty at [facility] 24 hours a day by calling [phone] Addtl Government Operations Consultant Provider Instructions: Risk Factors for Stroke: You can reduce your chances of stroke by working with your medical provider to adopt a healthy lifestyle. Some specific ways to lower your chance of stroke are: * If you are a smoker, now is the time to stop smoking cigarettes * If you are diabetic, improve the control of your blood sugars * Avoid excessive amounts of alcohol * Control high blood pressure * Lose weight if you are overweight * Be sure to lead an active lifestyle * Eat a healthy diet low in salt, cholesterol and fat You should know about other risk factors for stroke that you are unable to control. These include: * Age 55 years or older * Male gender * Certain racial groups: , or / * Family History of Stroke, Mini stroke or Heart Attack * Sickle Cell Disease Follow Up: It is important for you to keep your follow up appointments with your medical provider. Who to Call and When: Medical Emergencies: Call 911 immediately if you experience any of the following warning signs and symptoms of Stroke: * Sudden numbness or weakness of the face, arm or leg, especially on one side of the body * Sudden confusion, trouble speaking or understanding * Sudden trouble seeing in one or both eyes * Sudden trouble walking, dizziness, loss of balance or coordination * Sudden severe headache with no cause Do not delay calling 911 if you experience any warning signs or symptoms of a stroke. Delay in seeking medical attention may affect what treatments can be given to you. . Pending Studies at Discharge: No Stand-Alone Forms: Medications to Prevent Stroke, [facility] [place] [employer], Smoking Cessation Medications and DC Order Prescriptions: New atorvastatin 40 mg Tablet 40 mg PO QAM 30 Days Qty: 30 RF: 0 Continued aspirin 81 mg Tablet,Delayed Release (Dr/Ec) 81 mg PO QAM Qty: 17 RF: 0 metformin 500 mg tablet 500 mg PO BID Qty: 0 RF: 0 pantoprazole 40 mg tablet,delayed release (DR/EC) 40 mg PO DAILYBB RF: 0 hydralazine 25 mg tablet 25 mg PO TID Qty: 90 RF: 0 trazodone 100 mg tablet 100 mg PO HS RF: 0 buspirone 5 mg tablet 5 mg PO TID RF: 0 hydroxyzine pamoate 50 mg capsule 25 mg PO BID PRN (Reason: Anxiety) RF: 0 lisinopril 30 mg tablet 30 mg PO DAILY RF: 0 clopidogrel [Plavix] 75 mg Tablet 75 mg PO DAILY RF: 0 metoprolol succinate 25 mg 12.5 mg PO DAILY RF: 0 lorazepam [Ativan] 1 mg tablet 0.5 mg PO Q8H PRN (Reason: anxiety) RF: 0 Changed fluvoxamine 100 mg tablet 100 mg PO BID Qty: 0 RF: 0 Discontinued atorvastatin 20 mg tablet 20 mg PO DAILY RF: 0 amlodipine 5 mg tablet 5 mg PO DAILY PRN (Reason: Hypertension) RF: 0 oxycodone 5 mg tablet 5 mg PO Q6H PRN (Reason: Pain) RF: 0 aripiprazole 2 mg tablet 2 mg PO DAILY RF: 0 escitalopram oxalate 20 mg tablet 20 mg PO DAILY RF: 0 Discharge Orders: Discharge Order (Routine); Ordered 07/27/21 Ordered By: Yanira Velazquez/Other Patient Handouts: A1C, High Blood Sugar (Hyperglycemia), Managing Type 2 Diabetes Admission Data Admit Date/Time: 06/05/21 17:22 Attending Provider: Yanira Snyder Admit Provider: Daniel Ceballos Primary Care Provider: Pedro Pablo Gaspar Other Providers: Daniel Ceballos ; Jennifer Iyer ; Dr Perez ; Darcy Quiroga ; Jihan Trejo ; Ehsan Liz ; Digna Timmons ; Vinh Piña ; Digna Wang ; Pramod Ashby ; [facility] ; [facility],Home Healthcare ; [facility] ; [place],[facility] Other Interventions: Discharge Summary Assessment (RN) Last Done: 06/11/21 15:58 Home Health Attestation I certify that this patient is under my care and that I, or a physicians licensed investment sales assistant working with me, had a face to-face encounter that meets the home health [id number] encounter requirements with this patient. The encounter with the patient was in whole, or in part, for the following medical condition, which is the primary reason for home health care (list medical condition): CVA I certify that, based on my findings, the following services are medically necessary home health services: My clinical findings support the need for the above services because: OT Assess ADL Status and Restore Function w ADLs PT Assessment for Endurance / Balance / Strength PT Eval for Safety and Mobility PT Eval for Safety, Gait Training, Assistive Devices PT Gait and Balance Training, Strengthening and Safety Skilled Nsg Assessment Skilled Nsg Assessment for Complications r/t CVA Further, I certify that my clinical findings support that this patient is homebound (i.e. absences from home require considerable and taxing effort and are for medical reasons or cheondoism services or infrequently or of short duration when for other reasons) because: Transportation Assistance/Unable to Leave Home Unassisted Certification for Home Health Services: Based on the above findings, I certify that this patient is confined to the home and needs intermittent care home care, physical therapy and/or speech therapy or continues to need occupational therapy. The patient is under my care, and I have initiated the establishment of the plan of care. This patient will be followed by a physician who will periodically review the plan of care.
== END 2021-06-11 19:35 | disposition home or self-care (01) | DRG 917 ==
LOC: ED 14:01 → SUATTDRO 17:22 → 2E 17:22 → 2W 06-07 20:42 → UNDODISIN 06-11 17:13

== ENCOUNTER 2021-06-16 13:53 | Inpatient (IN) ==
[2021-06-16 15:39] LABS: Basophils # (auto) 0.03 K/uL (0-0.2); Basophils % (auto) 0.2 %; Eosinophils # (auto) 0.03 K/uL (0-0.5); Eosinophils % (auto) 0.2 %; Hematocrit (blood only) 48.2 % (42-52); Hemoglobin 17.7 g/dL (14.0-18.0); Immature Granulocytes % (auto) 0.5 %; Mean Corpuscular Hemoglobin 30.5 pg (25-34); Mean Corpuscular Hgb Conc 36.7 g/dL (32-36); Mean Platelet Volume 10.8 fL (7.4-10.4); Monocytes # (auto) 1.02 K/uL (0.11-0.59); Monocytes % (auto) 5.3 %; Neutrophils # (auto) 15.64 K/uL (1.4-6.5); Neutrophils % (auto) 81.8 %; Platelet Count 179 K/uL (130-400); RDW Coefficient of Variation 13.6 % (11.5-14.5); RDW Standard Deviation 40.2 fL (36.4-46.3); Red Blood Count 5.81 M/uL (4.7-6.1); White Blood Count 19.12 K/uL (4.8-10.8)
[2021-06-16 15:57] LABS: Albumin Level 3.9 gm/dl (3.4-5.0); BUN Creatinine Ratio 6.9 (10-20); Calcium 9.9 mg/dl (8.5-10.1); Creatinine Clr Calc Pharmacy 60.4 ml/min; Est GFR (African American) 72.4 ml/min; Est GFR (Non-African American) 62.5 ml/min; Potassium 3.5 mmol/L (3.5-5.1)
--- NOTE | 2021-06-16 15:58 | XRay Report ---
XR chest 1V portable HISTORY: 50 years-old Male weakness acute weakness COMPARISON: 06/05/2021 TECHNIQUE: AP view of the chest. FINDINGS: Cardiomediastinal and hilar silhouettes are within normal limits. No pneumothorax, pleural effusion, airspace consolidation or overt pulmonary edema. The bones appear normal. IMPRESSION: No acute process. ACT 112: Negative or not required by law. The above report was generated using voice recognition software. It may contain grammatical, syntax o r spelling errors. Electronically signed by: Rufino Jo M.D. 06/16/2021 3:57 PM
--- NOTE | 2021-06-16 16:05 | Electrocardiogram Report ---
Test Reason : Blood Pressure : / mmHG Vent. Rate : 093 BPM Atrial Rate : 093 BPM P-R Int : 190 ms QRS Dur : 096 ms QT Int : 418 ms P-R-T Axes : 040 -13 037 degrees QTc Int : 519 ms Normal sinus rhythm Left atrial enlargement Left ventricular hypertrophy Old Inferior infarct (cited on or before 04-MAY-2021) Prolonged QT Abnormal ECG When compared with ECG of 06-JUN-2021 05:58, HR has increased by 24 bpm QT has lengthened Confirmed by Pedro Pablo Castañeda ([id number]) on 06/16/2021 4:04:55 PM Referred By: Confirmed By:Pedro Pablo Castañeda
[2021-06-16 16:13] LABS: Bilirubin,Total 1.1 mg/dl (0.2-1); Thyroid Stimulating Hormone 2.3 uIu/ml (0.300-4.500); Total Protein 7.9 gm/dl (6.4-8.2); Troponin I 0.421 ng/ml (0-0.045)
--- NOTE | 2021-06-16 16:58 | CT Scan Report ---
CT head/brain wo con CLINICAL HISTORY: 50 years-old Male with weakness. Acute weakness with strokelike symptoms TECHNIQUE: Multiple axial CT images of the head were obtained without contrast. A dose lowering tech nique was utilized adhering to the principles of ALARA. CT DOSE: 718.89 mGycm COMPARISON: Brain MRI and head CT 06/05/2021 FINDINGS: No acute intracranial hemorrhage, midline shift, intracranial mass, hydrocephalus, territorial ischem ia or abnormal extra-axial collection. Chronic right MCA territorial infarct with encephalomalacia. S mall chronic infarct of the left cerebellar hemisphere. Age-related involutional changes with chronic microvascular ischemic disease. The calvarium is intact. Trace left mastoid effusion. Right mastoid air cells are clear. The paranas al sinuses are generally clear. Unremarkable soft tissues and orbits appear IMPRESSION: 1. No acute intracranial abnormality. 2. Chronic findings as above. ACT 112: Negative or not required by law. The above report was generated using voice recognition software. It may contain grammatical, syntax o r spelling errors. Electronically signed by: Rufino Jo M.D. 06/16/2021 4:56 PM
[2021-06-16] MEDS ORDERED: SODIUM CHLORIDE 0.9% 1000ML 500 ML IV ONE (17:18)
[2021-06-16] MEDS ORDERED: ASPIRIN CHEW 324 MG PO STA (17:18)
--- NOTE | 2021-06-16 17:18 | Emergency Department Note ---
History of Present Illness General Chief complaint: Weakness Stated complaint: ?stroke last night Time Seen by Provider: 06/16/21 16:00 History of Present Illness 50-year-old male presents to the ED with a chief complaint of generalized weakness. The patient states that he got up to go to the bathroom last night and he fell on the ground. He thought he might of had a stroke. He laid on the ground for most of the night and day today. He called EMS and was brought in for evaluation. The patient states that he was lying in a hardwood floor. The patient states that he thought that his left arm seemed a little weaker than usual. He has had a previous TIA or stroke in the past that caused him to have some mild left-sided weakness. He reported some nausea. Denies any chest pains or shortness of breath. He does state that he had a mild headache earlier but this is gone now. He lives alone. Does not have very good social resources at home. Home Medications Medication Instructions Recorded Confirmed Type aspirin 81 mg tablet,delayed 81 mg PO QAM #17 tab 03/22/20 06/16/21 Rx release pantoprazole 40 mg tablet,delayed 40 mg PO DAILYBB 09/10/20 06/16/21 History release buspirone 5 mg tablet 5 mg PO TID 06/05/21 06/16/21 History clopidogrel 75 mg tablet (Plavix) 75 mg PO DAILY 06/05/21 06/16/21 History hydroxyzine pamoate 50 mg capsule 50 mg PO TID PRN 06/05/21 06/16/21 History lisinopril 30 mg tablet 30 mg PO DAILY 06/05/21 06/16/21 History lorazepam 1 mg tablet (Ativan) 0.5 mg PO Q8H PRN 06/05/21 06/16/21 History trazodone 100 mg tablet 100 mg PO HS 06/05/21 06/16/21 History atorvastatin 40 mg tablet 40 mg PO QAM 30 Days #30 tab 06/11/21 06/16/21 Rx fluvoxamine 100 mg tablet 100 mg PO BID #0 tab 06/11/21 06/16/21 Rx amlodipine 10 mg tablet 10 mg PO DAILY 06/16/21 06/16/21 History escitalopram oxalate 20 mg tablet 20 mg PO UD 06/16/21 06/16/21 History glipizide 5 mg tablet 5 mg PO DAILY 06/16/21 06/16/21 History oxycodone 5 mg tablet 5 mg PO UD PRN 06/16/21 06/16/21 History propranolol 10 mg tablet 10 mg PO TID 06/16/21 06/16/21 History Allergies Allergy/AdvReac Type Severity Reaction Status Date / Time No Known Allergies Allergy Verified 06/16/21 15:56 Past Med/Surg History Medical History Abnormal MRI of head MRI 06/15/20 showed MCA infarcts as well as ring enhancement right posterior lobe. Repeat MRI recommended in 3 months. CAD (coronary artery disease) 2013 - NSTEMI s/p BRUCE to RCA Carotid stenosis, bilateral Depression DM type 2 (diabetes mellitus, type 2) Dyslipidemia History of cerebrovascular accident March 2020; subacute infarct noted to parietal lobe per 06/15/20 MRI Hypertension Ischemic cardiomyopathy EF=45% Surgical History Hx of endarterectomy (06/28/20) Right Carotid Endarterectomy with Bovine Patch Angioplasty Dr. Arita 06/28/2020 S/P drug eluting coronary stent placement Family History Mother , age 68 from metastatic lung cancer Lung cancer Father No problems noted. 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 Feels Safe at Home: Yes Assistive Devices: None Review of Systems A total of 10 systems reviewed and were otherwise negative Physical Exam Vital Signs Vital Signs - 24 hr 06/16/21 14:03 06/16/21 14:05 06/16/21 14:13 Temperature 37.2 C Temperature Source Oral Pulse Rate 90 102 H Pulse Rate from SpO2 Sensor 89 Pulse Rhythm Regular Pulse Strength Normal Respiratory Rate 19 20 Respiratory Effort / Characteristics Non-Labored Spontaneous Respiratory Depth Normal Respiratory Pattern Regular Blood Pressure 203/122 H 201/122 H Blood Pressure Mean 149 148 Blood Pressure Position Sitting Pulse Oximetry 93 98 93 Oxygen Delivery Method Room Air Room Air Sepsis Recent Fever Within 48 Hours No Sepsis New/Unexplained Change in Mental Status No Sepsis Action Taken by Nursing No Action Required 06/16/21 14:30 Temperature Temperature Source Pulse Rate 90 Pulse Rate from SpO2 Sensor 90 Pulse Rhythm Pulse Strength Respiratory Rate 27 H Respiratory Effort / Characteristics Respiratory Depth Respiratory Pattern Blood Pressure 184/113 H Blood Pressure Mean 136 Blood Pressure Position Pulse Oximetry 93 Oxygen Delivery Method Sepsis Recent Fever Within 48 Hours Sepsis New/Unexplained Change in Mental Status Sepsis Action Taken by Nursing CONSTITUTIONAL/VITAL SIGNS: Reviewed / noted above. GENERAL: Non-toxic in appearance. INTEGUMENTARY: Warm, dry, and [place]. HEAD: Normocephalic. EYES: without scleral icterus or trauma. ENT/OROPHARYNX: clear and moist. LYMPHADENOPATHY/NECK: Is supple without lymphadenopathy or meningismus. RESPIRATORY: Clear to auscultation bilaterally. No increased work of breathing. CARDIOVASCULAR: Regular rate and rhythm. GI/ABDOMEN: Soft and nontender. No organomegaly or pulsatile mass. EXTREMITIES: Warm and well perfused. BACK: No CVA tenderness. NEUROLOGICAL: Intact without focal deficits. No focal weakness on my exam. No pronator drift. Cerebellar testing was grossly normal. PSYCHIATRIC: normal affect. MUSCULOSKELETAL: Normally developed with good muscle tone. TRIAGE NURSING DOCUMENTATION REVIEWED. Medical Decision Making Differential Diagnosis Differential includes acute coronary syndrome, myocardial infarction, CVA, TIA, anemia, infection, pneumonia, UTI, pyelonephritis, poor nutrition, dehydration, electrolyte disturbance,hypoglycemia. Medical Records Attestation: I reviewed the patient's medical records. Home Medications Current Medication List: was personally reviewed by me Laboratory Data Attestation: I reviewed the patient's lab results. Result diagrams: 06/16/21 14:20 06/16/21 14:20 Lab Results 06/16/21 06/16/21 Range/Units 14:20 14:20 WBC 19.12 H (4.8-10.8) K/uL RBC 5.81 (4.7-6.1) M/uL Hgb 17.7 (14.0-18.0) g/dL Hct 48.2 (42-52) % MCV 83.0 (80-100) fL MCH 30.5 (25-34) pg MCHC 36.7 H (32-36) g/dL RDW Std Deviation 40.2 (36.4-46.3) fL RDW Coeff of Dione 13.6 (11.5-14.5) % Plt Count 179 (130-400) K/uL MPV 10.8 H (7.4-10.4) fL Immature Gran % (Auto) 0.5 % Neut % (Auto) 81.8 % Lymph % (Auto) 12.0 % [place] % (Auto) 5.3 % Eos % (Auto) 0.2 % Baso % (Auto) 0.2 % Neut # (Auto) 15.64 H (1.4-6.5) K/uL Lymph # (Auto) 2.30 (1.2-3.4) K/uL [place] # (Auto) 1.02 H (0.11-0.59) K/uL Eos # (Auto) 0.03 (0-0.5) K/uL Baso # (Auto) 0.03 (0-0.2) K/uL Immature Gran # (Auto) 0.10 H (0.00-0.02) K/uL Sodium 143 (136-145) mmol/L Potassium 3.5 (3.5-5.1) mmol/L Chloride 109 H (98-107) mmol/L Carbon Dioxide 24 (21-32) mmol/L Anion Gap 10.0 (3-11) BUN 9 (7-18) mg/dl Creatinine 1.32 (0.6-1.4) mg/dl Est Cr Clr Drug Dosing 60.4 ml/min Est GFR ( Amer) 72.4 ml/min Est GFR (Non-Af Amer) 62.5 ml/min BUN/Creatinine Ratio 6.9 L (10-20) Glucose 87 (70-99) mg/dl Calcium 9.9 (8.5-10.1) mg/dl Total Bilirubin 1.1 H (0.2-1) mg/dl AST 499 H (15-37) U/L ALT 95 H (12-78) U/L Alkaline Phosphatase 94 (45-117) U/L Troponin I 0.421 H* (0-0.045) ng/ml Total Protein 7.9 (6.4-8.2) gm/dl Albumin 3.9 (3.4-5.0) gm/dl Globulin 4.0 (2.5-4.0) gm/dl Albumin/Globulin Ratio 1.0 (0.9-2) TSH 2.300 (0.300-4.500) uIu/ml Imaging Data Radiologist's Impression: Chest X-Ray 06/16/21 15:27 XR chest 1V portable HISTORY: 50 years-old Male weakness acute weakness COMPARISON: 06/05/2021 TECHNIQUE: AP view of the chest. FINDINGS: Cardiomediastinal and hilar silhouettes are within normal limits. No pneumothorax, pleural effusion, airspace consolidation or overt pulmonary edema. The bones appear normal. IMPRESSION: No acute process. ACT 112: Negative or not required by law. The above report was generated using voice recognition software. It may contain grammatical, syntax or spelling errors. Electronically signed by: Rufino Jo M.D. 06/16/2021 3:[address] 06/16/21 16:11 CT head/brain wo con CLINICAL HISTORY: 50 years-old Male with weakness. Acute weakness with strokelike symptoms TECHNIQUE: Multiple axial CT images of the head were obtained without contrast. A dose lowering technique was utilized adhering to the principles of ALARA. CT DOSE: 718.89 mGycm COMPARISON: Brain MRI and head CT 06/05/2021 FINDINGS: No acute intracranial hemorrhage, midline shift, intracranial mass, hydroce phalus, territorial ischemia or abnormal extra-axial collection. Chronic right MCA territorial infarct with encephalomalacia. Small chronic infarct of the left cerebellar hemisphere. Age-related involutional changes with chronic microvascular ischemic disease. The calvarium is intact. Trace left mastoid effusion. Right mastoid air cells are clear. The paranasal sinuses are generally clear. Unremarkable soft tissues and orbits appear IMPRESSION: 1. No acute intracranial abnormality. 2. Chronic findings as above. ACT 112: Negative or not required by law. The above report was generated using voice recognition software. It may contain grammatical, syntax or spelling errors. Electronically signed by: Rufino Jo M.D. 06/16/2021 4:56 PM ECG Data Attestation: I personally reviewed and interpreted this ECG as follows: Additional Comments: Twelve-lead EKG: Per my interpretation there is a normal sinus rhythm at a rate of 93. No ST elevation. Slightly prolonged QT. No PVCs. MDM Narrative Patient presents with generalized weakness. Troponin is elevated. His white blood cell count was 19. Urinalysis is pending. CK is pending. He was treated with aspirin p.o. as well as some IV fluids. CT scan of the brain did not show acute process. The patient was seen by the hospitalist for further evaluation and care Impression & Plan Generalized weakness, Elevated troponin Discharge Plan Visit Data Chief Complaint: Weakness Stated Complaint: ?stroke last night ED Provider: Hi Tate Discharge Problem: Generalized weakness, Elevated troponin Patient Disposition: Being Evaluated by Hospitalist Forms Stand Alone Forms: My [facility] Prescriptions Prescriptions: No Action aspirin 81 mg Tablet,Delayed Release (Dr/Ec) 81 mg PO QAM Qty: 17 RF: 0 pantoprazole 40 mg tablet,delayed release (DR/EC) 40 mg PO DAILYBB RF: 0 trazodone 100 mg tablet 100 mg PO HS RF: 0 buspirone 5 mg tablet 5 mg PO TID RF: 0 hydroxyzine pamoate 50 mg capsule 50 mg PO TID PRN (Reason: Anxiety) RF: 0 lisinopril 30 mg tablet 30 mg PO DAILY RF: 0 clopidogrel [Plavix] 75 mg Tablet 75 mg PO DAILY RF: 0 lorazepam [Ativan] 1 mg tablet 0.5 mg PO Q8H PRN (Reason: anxiety) RF: 0 atorvastatin 40 mg Tablet 40 mg PO QAM 30 Days Qty: 30 RF: 0 fluvoxamine 100 mg tablet 100 mg PO BID Qty: 0 RF: 0 propranolol 10 mg tablet 10 mg PO TID RF: 0 amlodipine 10 mg tablet 10 mg PO DAILY RF: 0 glipizide 5 mg tablet 5 mg PO DAILY RF: 0 oxycodone 5 mg tablet 5 mg PO UD PRN (Reason: Pain) RF: 0 escitalopram oxalate 20 mg tablet 20 mg PO UD RF: 0 Referrals Referrals: Pedro Pablo Gaspar MD [Primary Care Provider] -
--- NOTE | 2021-06-16 17:37 | History & Physical Report ---
Date of Service June 16, 2021 Assessment & Plan (1) Stroke-like symptoms: Plan: This is a 50yo M with a PMH of CAD s/p stent, right carotid endarterectomy, recent CVA, history of CVA with residual R hand weakness, depression, DM type II, current tobacco use and other medical problems listed below who presents with weakness and fall from home. [place] sudden weakness last evening when ambulating leading to fall Diagnosed with acute/subacute stroke on MRI brain with 8 mm focus of restricted water diffusion in the right parietal lobe on 06/06/21 Continued on aspirin, plavix, statin No focal neuro deficits on exam Stroke eval with MRI brain, echo - will not repeat CTA head/neck at this time Routine neurology consult (2) Hypertensive urgency: Plan: BP 203/122 in setting of missed BP meds Given 10mg IV Labetalol - BP now 158/100 Resume home meds Monitor (3) Fall: (4) Rhabdomyolysis: Plan: Fall at home, was on ground overnight CK >35,000 Started IV fluids Repeat CK in AM Fall precautions, PT/OT evaluation (5) Elevated troponin: Plan: Troponin 0.421 --> 0.383 in setting of rhabdomyolysis No chest pain or EKG changes Continue to monitor (6) CAD (coronary artery disease): Plan: Continue aspirin, statin (7) DM type 2 (diabetes mellitus, type 2): Plan: A1c pending SSI while in-patient BSG AC HS (8) Carotid stenosis, bilateral: Plan: Continue aspirin, plavix, statin (9) Depression: Plan: Continue Fluvoxamine, Buspar, trazodone DVT Ppx: SQ heparin Code status: FULL PCP: Hubert Dispo: Admitted to PCU. Discharge planning ordered Patient seen in collaboration with Dr. Ceballos. Please see addendum. History of Present Illness Chief Complaint: stroke like sx, fall Primary Care Provider: Pedro Pablo Gaspar MD This is a 50yo M with a PMH of CAD s/p stent, right carotid endarterectomy, recent CVA, history of CVA with residual R hand weakness, depression, DM type II, current tobacco use and other medical problems listed below who presents with weakness and fall from home. Was ambulating to the restroom around midnight and L knee gave out, followed by other leg. Struck the back of his head but denies LOC. Remained on the ground overnight and was too weak to get up. Called EMS this morning and was brought to ER. Denies difficulty with speaking or swallowing. No focal weakness. Patient lives alone and has a cane for ambulation. Endorsing recent psychiatric medication adjustment. Recent admission from 06/06- for medication overdose on oxycodone in setting of ongoing complex psychiatric issues. Patient states he is no longer taking oxycodone. Also diagnosed with acute/subacute stroke on MRI brain with 8 mm focus of restricted water diffusion in the right parietal lobe. This is located in the region of the prior infarct. Was evaluated by neurology- thought to have questionable compliance with plavix and aspirin. Atorvastatin dose increased to 40mg daily. Patient currently endorsing generalized weakness and lightheadedness. Denies fever, chills, headache, pain, shortness of breath, nausea, vomiting, abdominal pain, dysuria. Allergies Allergy/AdvReac Type Severity Reaction Status Date / Time No Known Allergies Allergy Verified 06/16/21 15:56 Home Medications Medication Instructions Recorded Confirmed Type aspirin 81 mg tablet,delayed 81 mg PO QAM #17 tab 03/22/20 06/16/21 Rx release pantoprazole 40 mg tablet,delayed 40 mg PO DAILYBB 09/10/20 06/16/21 History release buspirone 5 mg tablet 5 mg PO TID 06/05/21 06/16/21 History clopidogrel 75 mg tablet (Plavix) 75 mg PO DAILY 06/05/21 06/16/21 History hydroxyzine pamoate 50 mg capsule 50 mg PO TID PRN 06/05/21 06/16/21 History lisinopril 30 mg tablet 30 mg PO DAILY 06/05/21 06/16/21 History lorazepam 1 mg tablet (Ativan) 0.5 mg PO Q8H PRN 06/05/21 06/16/21 History trazodone 100 mg tablet 100 mg PO HS 06/05/21 06/16/21 History atorvastatin 40 mg tablet 40 mg PO QAM 30 Days #30 tab 06/11/21 06/16/21 Rx fluvoxamine 100 mg tablet 100 mg PO BID #0 tab 06/11/21 06/16/21 Rx amlodipine 10 mg tablet 10 mg PO DAILY 06/16/21 06/16/21 History glipizide 5 mg tablet 5 mg PO DAILY 06/16/21 06/16/21 History hydralazine 25 mg tablet 25 mg PO TID 06/16/21 06/16/21 History propranolol 10 mg tablet 10 mg PO TID 06/16/21 06/16/21 History Past Med/Surg History Medical History Abnormal MRI of head MRI 06/15/20 showed MCA infarcts as well as ring enhancement right posterior lobe. Repeat MRI recommended in 3 months. CAD (coronary artery disease) 2013 - NSTEMI s/p BRUCE to RCA Carotid stenosis, bilateral Depression DM type 2 (diabetes mellitus, type 2) Dyslipidemia History of cerebrovascular accident March 2020; subacute infarct noted to parietal lobe per 06/15/20 MRI Hypertension Ischemic cardiomyopathy EF=45% Surgical History Hx of endarterectomy (06/28/20) Right Carotid Endarterectomy with Bovine Patch Angioplasty Dr. Arita 06/28/2020 S/P drug eluting coronary stent placement Family History Mother , age 68 from metastatic lung cancer Lung cancer Father No problems noted. Social History Smoking Status: Current every day smoker Tobacco Type: Cigarettes Cigarettes Per Day: 5; Second Hand Exposure: No; Tobacco Cessation Education Requested by Patient: No Hx Alcohol Use: Yes Alcohol type: beer Hx Substance Use: Yes Last Used Substance: Unknown Last Used Substance Other:: denies use Preferred Language: Setswana Communication Ability: Effective Seed Mill Superintendent Required: No Beliefs That Will Affect Care: None marital status: Single Current Living Situation: Other Current Living Situation Comment: friend current occupational status: previously employed current occupation: [employer] employee other: 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 Physical Exam Physical Exam: General Appearance: WD/WN, vitals as above, NAD, sitting up in bed, pleasant, poorly groomed Head: normocephalic, atraumatic Eyes: normal inspection, PERRL, conjunctivae normal, anicteric sclerae ENT: external ear and nose normal, oropharynx normal Neck: normal visual inspection, trachea midline, no thyromegaly Respiratory: normal respiratory effort, lungs clear to auscultation, no wheeze, rales, rhonchi. No accessory muscle use Cardiovascular: regular rate, rhythm, no murmur, normal peripheral pulses, no BLE edema. Vessels: no JVD Chest: normal inspection of chest Abdomen/GI: normal bowel sounds, soft, nontender, no hepatosplenomegaly Extremities/Musculoskeletal: no cyanosis or clubbing, LUE weakness (chronic), otherwise extremities motor strength 5/5 Neurologic: PERRL, EOMI, accommodation nl, no face palsy, no dysarthria, CN's II-XI intact bilaterally and moves all extremities Psychiatric: A+Ox3, euthymic affect Skin: no rashes, normal color, warm/dry Results & Data Results & Data ([facility]) Vital Signs (Past 12 Hours) Vital Signs Temp Pulse Resp BP Pulse Ox 06/16/21 17:00 89 18 199/122 H 95 06/16/21 16:39 89 27 H 06/16/21 16:00 39 H 182/119 H 98 06/16/21 15:30 87 19 191/115 H 96 06/16/21 15:00 89 25 H 199/121 H 93 06/16/21 14:30 90 27 H 184/113 H 93 06/16/21 14:13 93 06/16/21 14:05 37.2 C 102 H 20 201/122 H 98 06/16/21 14:03 90 19 203/122 H 93 Laboratory Results Short CBC 06/16/21 Range/Units 14:20 WBC 19.12 H (4.8-10.8) K/uL Hgb 17.7 (14.0-18.0) g/dL Hct 48.2 (42-52) % Plt Count 179 (130-400) K/uL BMP 06/16/21 14:20 Sodium 143 Potassium 3.5 Chloride 109 H Carbon Dioxide 24 BUN 9 Creatinine 1.32 Glucose 87 Calcium 9.9 Cardiac Enzymes 06/16/21 06/16/21 Range/Units 14:20 20:21 Total Creatine Kinase 25326 H (39-308) U/L Troponin I 0.421 H* 0.383 H* (0-0.045) ng/ml Liver Function 06/16/21 Range/Units 14:20 Total Bilirubin 1.1 H (0.2-1) mg/dl AST 499 H (15-37) U/L ALT 95 H (12-78) U/L Alkaline Phosphatase 94 (45-117) U/L Albumin 3.9 (3.4-5.0) gm/dl Urine 06/16/21 Range/Units 19:[address] [place] Urine Appearance Clear (Clear) Urine pH 6.0 (4.5-7.5) Ur Specific [place] 1.015 (1.000-1.030) Urine Protein 2+ H (Negative) Urine Glucose (UA) Negative (Negative) Diagnostic Findings Chest X-Ray 06/16/21 15:27 XR chest 1V portable HISTORY: 50 years-old Male weakness acute weakness COMPARISON: 06/05/2021 TECHNIQUE: AP view of the chest. FINDINGS: Cardiomediastinal and hilar silhouettes are within normal limits. No pneumothorax, pleural effusion, airspace consolidation or overt pulmonary edema. The bones appear normal. IMPRESSION: No acute process. ACT 112: Negative or not required by law. The above report was generated using voice recognition software. It may contain grammatical, syntax or spelling errors. Electronically signed by: Rufino Jo M.D. 06/16/2021 3:[address] 06/16/21 16:11 CT head/brain wo con CLINICAL HISTORY: 50 years-old Male with weakness. Acute weakness with strokelike symptoms TECHNIQUE: Multiple axial CT images of the head were obtained without contrast. A dose lowering technique was utilized adhering to the principles of ALARA. CT DOSE: 718.89 mGycm COMPARISON: Brain MRI and head CT 06/05/2021 FINDINGS: No acute intracranial hemorrhage, midline shift, intracranial mass, hydrocephalus, territorial ischemia or abnormal extra-axial collection. Chronic right MCA territorial infarct with encephalomalacia. Small chronic infarct of the left cerebellar hemisphere. Age-related involutional changes with chronic microvascular ischemic disease. The calvarium is intact. Trace left mastoid effusion. Right mastoid air cells are clear. The paranasal sinuses are generally clear. Unremarkable soft tissues and orbits appear IMPRESSION: 1. No acute intracranial abnormality. 2. Chronic findings as above. ACT 112: Negative or not required by law. The above report was generated using voice recognition software. It may contain grammatical, syntax or spelling errors. Electronically signed by: Rufino Jo M.D. 06/16/2021 4:56 PM Code Status & VTE Plan VTE Prophylaxis Plan VTE Prophylaxis will be ordered: Yes Supervising Physician Co-Signing Physician Notes Patient is a 50-year-old man with history of coronary artery disease, CVA, chronic right upper extremity weakness, diabetes mellitus and other medical problems presents with history of weakness, fall, ambulatory dysfunction resulting in lying on the floor for about 6 hours prior to admission. Patient states that his knees gave way and has bumped his head but denies any loss of consciousness, headache, blurry vision, slurred speech, incontinence. Please r shruti JOEL for complete details of presentation. He was noted to have hypertensive urgency, leukocytosis, transaminitis, CK elevated. CT head showed no acute intracranial abnormality. On exam patient is moderately built and nourished, no apparent distress, normocephalic atraumatic, EOMI, lungs-normal breath sounds, clear to auscultation, S1-S2, no murmur, no pedal edema, abdomen soft, nontender, normal bowel sounds, alert, awake, oriented,+ left upper extremity weakness, otherwise grossly no focal deficits. Patient is admitted for management of strokelike symptoms, hypertensive urgency, rhabdomyolysis. Agree with checking MRI brain, will control blood pressure. Consult neurology. Given IV fluids. Troponin elevation, transaminitis likely secondary to rhabdomyolysis. Trend CK levels. Check drug screen. Avoid QTC prolonging meds. Fall, aspiration precautions. Will request PT OT evaluation. I personally reviewed the record. Patient is interviewed and examined at bedside. Patient's care is coordinated with Cecily Hodges PA-C. Please refer to the documentation above for details of patient's presentation and for discussion of other issues.
[2021-06-16] MEDS ORDERED: LABETALOL HCL IV 5 MG/ML 20ML IV STA (18:12)
[2021-06-16 19:28] LABS: Appearance Urine Clear (Clear); Bacteria Urine Automated Negative (Negative); Bilirubin Urine Negative (Negative); Blood Urine 3+ (Negative); Color Urine Orange; Epithelial Cell Urine Auto 20-30 /lpf (0-5); Glucose Urine UA Negative (Negative); Ketones Urine Negative (Negative); Leukocyte Esterase Urine Negative (Negative); Nitrite Urine Negative (Negative); Protein Urine 2+ (Negative); RBC Urine Automated 0-4 /hpf (0-4); Specific Gravity Urine 1.015 (1.000-1.030); Urobilinogen Urine Negative (Negative)
[2021-06-16 20:03] LABS: Amphetamines+Metham, Urine Neg (Neg); Barbiturates, Urine Neg (Neg); Benzodiazepine, Urine Neg (Neg); Cocaine, Urine Neg (Neg); MDMA (Ecstacy), Urine Neg (Neg); Methadone, Urine Neg (Neg); Opiate, Urine Neg (Neg); Phencyclidine, Urine Neg (Neg)
[2021-06-16] MEDS ORDERED: CARBOHYDRATES FOR HYPOGLYCEMIA PO PRN (20:14)
[2021-06-16] MEDS ORDERED: PHARMACIST DISCHARGE MED REC CONSULT PRN (20:14)
[2021-06-16] MEDS ORDERED: DEXTROSE 50% 50 ML SYRINGE IV PRN (20:14)
[2021-06-16] MEDS ORDERED: POLYETHYLENE (MIRALAX) 17 GM PACK PO PRN (20:14)
[2021-06-16] MEDS ORDERED: GLUCOSE 40% GEL 15 GM TUBE PO PRN (20:14)
[2021-06-16] MEDS ORDERED: GLUCOSE 10 TABS/TUBE PO PRN (20:14)
[2021-06-16] MEDS ORDERED: GLUCAGON FOR INJ 1 MG VIAL SQ PRN (20:14)
[2021-06-16] MEDS: NSS + 20MEQ KCL 20 MEQ/1,000 ML BAG IV SCH (20:55)
[2021-06-16] MEDS: INSULIN ASPART 100 UNITS/ML 3 ML PEN SC SCH (20:59)
[2021-06-16] MEDS: HEPARIN SOD 5,000 UNIT/0.5 ML VIAL SQ SCH (21:00)
[2021-06-16] MEDS ORDERED: LORazepam 1 MG TAB PO PRN (21:15)
[2021-06-16] MEDS ORDERED: hydrOXYzine HCl 25 MG TAB PO PRN (21:15)
[2021-06-16] MEDS: busPIRone 5 MG TAB PO SCH (22:06)
[2021-06-16] MEDS: fluvoxaMINE MALEATE 50 MG TAB PO SCH (22:06)
[2021-06-16] MEDS: hydrALAZINE HCL 25 MG TAB PO SCH (22:06)
[2021-06-16] MEDS ORDERED: LABETALOL HCL IV 5 MG/ML 20ML IV PRN (23:00)
[2021-06-16] MEDS ORDERED: GADOBUTROL 7.5ML VIAL IV ONE (23:11)
[2021-06-17] MEDS: ACETAMINOPHEN 325 MG TAB PO PRN (00:11)
[2021-06-17 02:41] LABS: Hematocrit (blood only) 43.2 % (42-52); Hemoglobin 15.3 g/dL (14.0-18.0); Mean Corpuscular Hemoglobin 30.4 pg (25-34); Mean Corpuscular Hgb Conc 35.4 g/dL (32-36); Mean Corpuscular Volume 85.9 fL (80-100); Mean Platelet Volume 10.7 fL (7.4-10.4); Platelet Count 160 K/uL (130-400); RDW Coefficient of Variation 13.9 % (11.5-14.5); RDW Standard Deviation 42.7 fL (36.4-46.3); Red Blood Count 5.03 M/uL (4.7-6.1); White Blood Count 11.64 K/uL (4.8-10.8)
[2021-06-17 02:59] LABS: Alanine Aminotransferase 88 U/L (12-78); Albumin Level 3.2 gm/dl (3.4-5.0); Aspartate Aminotransferase 403 U/L (15-37); BUN Creatinine Ratio 8.6 (10-20); Blood Urea Nitrogen 10 mg/dl (7-18); Calcium 8.7 mg/dl (8.5-10.1); Carbon Dioxide 26 mmol/L (21-32); Chloride 109 mmol/L (98-107); Creatinine Clr Calc Pharmacy 65.9 ml/min; Est GFR (African American) 80.4 ml/min; Est GFR (Non-African American) 69.4 ml/min; Glucose 91 mg/dl (70-99); Potassium 3.3 mmol/L (3.5-5.1); Sodium 142 mmol/L (136-145)
[2021-06-17 03:30] LABS: Albumin Globulin Ratio 0.9 (0.9-2); Alkaline Phosphatase 75 U/L (45-117); Bilirubin,Total 1.1 mg/dl (0.2-1); Chol HDL Ratio 3; Cholesterol 114 mg/dl (0-200); Creatine Kinase > 14000 U/L (39-308); Globulin 3.4 gm/dl (2.5-4.0); HDL Cholesterol 36 mg/dl; LDL Cholesterol Calculated 53 mg/dl; Total Protein 6.6 gm/dl (6.4-8.2); Triglycerides 126 mg/dl (0-150); Troponin I 0.287 ng/ml (0-0.045); VLDL Cholesterol 25 mg/dl
[2021-06-17] MEDS: NSS + 20MEQ KCL 20 MEQ/1,000 ML BAG IV SCH ×4 (03:35→22:52)
[2021-06-17] MEDS: PANTOprazole 40 MG TAB PO SCH (06:23)
[2021-06-17] MEDS: HEPARIN SOD 5,000 UNIT/0.5 ML VIAL SQ SCH ×3 (06:23→22:03)
--- NOTE | 2021-06-17 06:39 | Ultrasound Report ---
US liver CLINICAL HISTORY: abnormal LFTs COMPARISON STUDY: No previous studies for comparison. FINDINGS: The liver mildly echogenic. There is slight heterogeneity of the liver. There is mild intra and extrahepatic biliary ductal dilatation. The common bile duct measures 9 mm in caliber. There is slight dilatation of the main pancreatic duct measuring 4 mm. The head and tail are obscured. There a re no gallstones. Comet tail artifact arising from the gallbladder fundus suggests adenomyomatosis. T here is no gallbladder wall thickening. There was no sonographic Salazar's sign. There is no right hyd ronephrosis. IMPRESSION: 1. Mild intra and extra hepatic biliary ductal dilatation. This could be correlated with obstructive liver function tests. Slight dilatation of the main pancreatic duct. Partially obscured pancreas. 2. No gallstones. 3. Mild heterogeneous liver with increased echogenicity which may reflect mild hepatic steatosis. ACT 112: Negative or not required by law. Electronically signed by: Jw Andujar M.D. 06/17/2021 6:37 AM
--- NOTE | 2021-06-17 06:51 | XRay Report ---
XR elbow LT 2V CLINICAL HISTORY: Left elbow pain and swelling. COMPARISON: None FINDINGS: Alignment of the left elbow is in anatomic. There is no acute fracture. There is no eviden ce for joint effusion. There is minimal osteophytosis within the ulnotrochlear articulation. Soft tis bean swelling overlying the olecranon is noted. IMPRESSION: 1. No acute fracture or joint effusion of the left elbow. 2. Soft tissue swelling overlying the olecranon. 3. Mild ulnotrochlear articulation osteoarthritis. ACT 112: Negative or not required by law. Electronically signed by: Jw Andujar M.D. 06/17/2021 6:50 AM
[2021-06-17] MEDS: busPIRone 5 MG TAB PO SCH ×3 (07:39→20:26)
[2021-06-17] MEDS: PROPRANOLOL HCL 10 MG TAB PO SCH ×3 (07:39→20:31)
[2021-06-17] MEDS: amLODIPine BESYLATE 5 MG TAB PO SCH (07:39)
[2021-06-17] MEDS: fluvoxaMINE MALEATE 50 MG TAB PO SCH ×2 (07:39→20:27)
[2021-06-17] MEDS: hydrALAZINE HCL 25 MG TAB PO SCH ×3 (07:40→20:32)
[2021-06-17] MEDS: lisinopril 10 MG TAB PO SCH (07:40)
[2021-06-17] MEDS: ASPIRIN 81 MG ECTAB PO SCH (07:40)
[2021-06-17] MEDS: ATORVASTATIN 40 MG TAB PO SCH (07:41)
[2021-06-17] MEDS: CLOPIDOGREL BISULFATE 75 MG TAB PO SCH (07:41)
[2021-06-17] MEDS: INSULIN ASPART 100 UNITS/ML 3 ML PEN SC SCH ×4 (07:41→20:45)
[2021-06-17 08:19] LABS: Estimated Average Glucose 117 mg/dl; Hemoglobin A1C 5.7 % (4.5-5.6)
[2021-06-17] MEDS ORDERED: POTASSIUM CHLORIDE CRTAB 20 MEQ TABCR PO ONE (08:22)
--- NOTE | 2021-06-17 08:35 | Electrocardiogram Report ---
Test Reason : Blood Pressure : / mmHG Vent. Rate : 070 BPM Atrial Rate : 070 BPM P-R Int : 190 ms QRS Dur : 096 ms QT Int : 478 ms P-R-T Axes : 057 004 033 degrees QTc Int : 516 ms Normal sinus rhythm Left atrial enlargement Old Inferior infarct (cited on or before 04-MAY-2021) Prolonged QT Abnormal ECG When compared with ECG of 16-JUN-2021 14:12, No significant change was found Confirmed by Pedro Pablo Castañeda ([id number]) on 06/17/2021 8:34:42 AM Referred By: REFERRED SELF Confirmed By:Pedro Pablo Castañeda
--- NOTE | 2021-06-17 11:14 | Magnetic Resonance Report ---
MRI OF THE BRAIN WITHOUT AND WITH IV CONTRAST CLINICAL HISTORY: stroke eval COMPARISON STUDY: June 05, 2021 TECHNIQUE: MRI of the brain was performed from the vertex to the skull base utilizing various T1 and T2 weighted sequences. Following the IV administration of 7 mL of Gadavist contrast, additional enhan handy images were obtained. FINDINGS: Sagittal T1, axial diffusion, proton density and T2 weighted axial, coronal FLAIR, and pre and post a xial T1-weighted images were acquired. These were supplemented with post gadolinium coronal T1 weight ed images. No midline shift or space occupying lesion. Stable punctate/curvilinear areas of magnetic susceptibility is again seen within cortical and subcor tical aspect of the right frontal and parietal lobe which is unchanged since prior study and might re present old hemorrhage. Redemonstration of the large cortical infarcts within right frontal and parietal lobes with surroundi ng areas of high T2, T2 FLAIR and low T1 signal representing gliosis. Redemonstration of the focal area of restricted diffusion/ischemia within cortex of the right parieta l lobe which was also seen on recent prior study and appear stable. Minimal prominence of bilateral ventricles is again seen which could represent mild ex vacuo dilatati on due to atrophic changes of brain parenchyma. Also small infarct is seen within left occipital lobe which is unchanged since prior. Proton density T2-weighted and FLAIR images reveal scattered foci of increased T2 signal within the w dioni matter, likely on a small vessel basis. There are no abnormal flow voids. Focal area of abnormal enhancement is seen anteriorly to the area of restricted diffusion within righ t parietal lobe and appear smaller than on MRI of the brain performed on June 15, 2020. IMPRESSION: 1. Redemonstration of large infarcts involving right frontal and temporal lobe. Persistent focal are a of restricted diffusion/ischemia within right parietal lobe which is unchanged since recent prior s tudy performed on June 05, 2021. 2. Questionable area of abnormal enhancement within right parietal lobe appears smaller then on June 15, 2020 exam and might represent sequela from recent reinfarction . ACT 112: Negative or not required by law. The above report was generated using voice recognition software. It may contain grammatical, syntax o r spelling errors. Electronically signed by: Gracie Ward DO 06/17/2021 11:13 AM
--- NOTE | 2021-06-17 15:53 | Hospitalist Progress Note ---
Date of Service June 17, 2021 Assessment & Plan (1) Stroke-like symptoms: Plan: Patient is a 50 yr male with H/O CAD s/p stent, right carotid endarterectomy, recent CVA, history of CVA with residual R hand weakness, depression, DM type II, current tobacco use and other medical problems listed below who presents with weakness and fall from home. Strokelike symptoms Suspected Subacute right Parietal lobe reinfarction -MRI Brain: Redemonstration of large infarcts involving right frontal and temporal lobe. Persistent focal area of restricted diffusion/ischemia within right parietal lobe which is unchanged since recent prior study performed on June 05, 2021. Questionable area of abnormal enhancement within right parietal lobe appears smaller then on June 15, 2020 exam and might represent sequela from recent reinfarction . -Recent Head/Neck CTA:There is no evidence of hemorrhage, mass effect, or acute territorial ischemia noting angiographic phase technique. The tiny infarct seen by MRI is not apparent on CT. There is mild narrowing of the cavernous carotid arteries secondary to calcified plaque. This is unchanged from previous. Otherwise unremarkable CT angiogram of the brain. There is approximately 65% focal stenosis at the origin of the left internal carotid artery. This is unchanged from previous. There is approximately 50% luminal narrowing at the origin of the right internal carotid artery secondary to soft plaque. This has significantly increased as compared to 08/20/2020. Emphysema and patchy airspace consolidation is seen in the upper lobes. Correlate clinically for evidence of pneumonia. -ECHO: Left ventricle is normal in size. Severe concentric LVH. Mild hypokinesis of the inferior and posterior jenkins the base with all other wall segments danielle normally. (Also noted on prior ECHO) EF 55 to 60%. No pericardial effusion. -Continue aspirin, Plavix, atorvastatin Neurology consulted PT OT, neurochecks Fall precautions (2) Hypertensive urgency: Plan: Hypertensive Urgency Continue amlodipine, hydralazine, lisinopril Labetalol as needed BP better (3) Fall: (4) Rhabdomyolysis: Plan: Acute rhabdomyolysis CK >35,000>> 137773 Continue IV fluids Monitor CK levels (5) Elevated troponin: Plan: Mild troponin elevation in setting of rhabdomyolysis Patient denies chest pain Echo seems to be unchanged as above Troponin trended down (6) CAD (coronary artery disease): Plan: Continue aspirin, statin, plavix (7) DM type 2 (diabetes mellitus, type 2): Plan: HbA1c 5.7 Insulin sliding scale while hospitalized Monitor BGs (8) Carotid stenosis, bilateral: Plan: Continue aspirin, plavix, statin (9) Depression: Plan: Continue Fluvoxamine, Buspar, trazodone DVT Px: SQ heparin Code status: FULL CODE Disposition PT/OT prior to discharge Admission and Anticipated Discharge Date Admission Date: June 16, 2021 Subjective Patient is seen and examined at bedside States feeling better today Reports having some leg discomfort, heaviness No new focal weakness Denies chest pain, shortness breath, dizziness, nausea, abdominal pain Review of Systems Review of Systems: All systems reviewed & are unremarkable except as noted in Subjective Physical Exam Physical Exam: Physical Exam: Vitals signs as noted above General Appearance:Moderately built and nourished, no apparent distress Head: normocephalic, Atraumatic Eyes: normal inspection, EOMI Neck: supple, Trachea midline Respiratory/Chest: Normal breath sounds, CTA, No accessory muscle use Cardiovascular: S1, S2, No murmur Abdomen/GI:Soft, Non tender, Bowel sounds present Extremities/Musculoskeletal:normal inspection, no edema Neurologic/Psych:AAOX3, Left UE weakness Skin: normal color, warm Results & Data Results & Data ([facility]) Vital Signs (Past 12 Hours) Vital Signs Temp Pulse Pulse Resp BP Pulse Ox Pulse Ox 06/17/21 14:59 66 06/17/21 14:21 98 06/17/21 11:42 97 06/17/21 11:25 36.5 C 63 20 151/85 H 98 06/17/21 08:00 70 06/17/21 07:25 36.5 C 72 20 179/103 H 96 06/17/21 04:15 89 Laboratory Results Short CBC 06/17/21 Range/Units 02:17 WBC 11.64 H (4.8-10.8) K/uL Hgb 15.3 (14.0-18.0) g/dL Hct 43.2 (42-52) % Plt Count 160 (130-400) K/uL BMP 06/16/21 06/17/21 14:20 02:17 Sodium 143 142 Potassium 3.5 3.3 L Chloride 109 H 109 H Carbon Dioxide 24 26 BUN 9 10 Creatinine 1.32 1.21 Glucose 87 91 Calcium 9.9 8.7 Cardiac Enzymes 06/16/21 06/16/21 06/17/21 Range/Units 14:20 20:21 02:17 Total Creatine Kinase 01646 H > 86789 H (39-308) U/L Troponin I 0.421 H* 0.383 H* 0.287 H* (0-0.045) ng/ml Liver Function 06/16/21 06/17/21 Range/Units 14:20 02:17 Total Bilirubin 1.1 H 1.1 H (0.2-1) mg/dl AST 499 H 403 H (15-37) U/L ALT 95 H 88 H (12-78) U/L Alkaline Phosphatase 94 75 (45-117) U/L Albumin 3.9 3.2 L (3.4-5.0) gm/dl Urine 06/16/21 Range/Units 19:17 Urine Color [place] Urine Appearance Clear (Clear) Urine pH 6.0 (4.5-7.5) Ur Specific [place] 1.015 (1.000-1.030) Urine Protein 2+ H (Negative) Urine Glucose (UA) Negative (Negative)
[2021-06-17] MEDS: NICOTINE POLACRILEX 2 MG GUM MT PRN ×2 (16:20→20:25)
--- NOTE | 2021-06-17 16:39 | Neurology Consultation ---
Date of Consultation June 17, 2021 Assessment & Plan (1) Stroke-like symptoms: 1. MRI with no acute stroke 2. PT/OT speech for discharge needs 3. continue plavix 75 mg and aspirin 81 mg 4. carotid stenosis on previous CTA should be monitored 5. orthostatics q shift - trazadone - was recently increased can cause orthostasis 6. EEG - ordered. 7. rhabdo - continue fluids 8. optimize HTN, HLD, DM LDL <70 (2) Chronic ischemic right MCA stroke: 1. carotid will need to be watch for further stenosis Supervising Physician Co-Signing Physician Notes I have seen and discussed above patient with Dr Digna Wang, neurology. Patient is seen and examined and history reviewed. I am familiar with this patient who [facility] with a small high right posterior parietal infarction. He has a known old large right MCA infarction which presented in the setting of a high-grade right internal carotid stenosis. He is status post right carotid endarterectomy. On his last admission it was unclear his compliance with antiplatelet therapy so he was resumed on aspirin and Plavix. His CT of the neck at that occasion showed less than 50% stenosis on the right and 65% stenosis on the left which was by report unchanged He has only been home for a short period of time but last evening after sleeping several hours and taking trazodone he stood up and first he felt his left leg was weaker than his right leg he fell to the ground not feeling lightheaded or having other neurologic symptoms but feeling too weak to get up. He eventually urinated never lost consciousness was there on the ground for hours. Upon reevaluation he does not think he has any new neurologic symptoms. He has been eating and drinking well his alcohol level was 0 none of his medicines were new or changed in dose. Did not bite his tongue. He has some generalized soreness. The MRI of the brain shows the old right MCA infarction and the subacute right posterior parietal cortical infarction with mild enhancement. I have reviewed those images and reports. On exam he is awake and alert speech and language are normal affect appropriate. There is some minor flattening of the left nasolabial fold no field cut left upper extremity is minimally weak with a left drift and decreased left rapid alternating movements grossly the lowers were intact Impression this patient with a recent tiny cortical right parietal infarction sounds as if he sustained a fall. He noted right leg giving out than left leg giving out but no other lateralizing neurologic symptoms. I think it is reasonable to check orthostatics. Trazodone can cause orthostatic hypotension. I would also check an EEG due to the cortical nature of this infarction. Imaging shows no acute infarction. A follow-up MRI was recommended to ensure resolution of the enhancement. I would recommend that be at a 3-month interval He is encouraged to continue dual antiplatelet therapy as well as smoking cessation. As an outpatient he should have a plasterer foreman to rule out intermittent atrial fibrillation. Asymptomatic left internal carotid stenosis of 65% the patient should be having carotid ultrasounds yearly with referral to vascular surgery if the degree of stenosis is 70% or greater. We will follow with you History of Present Illness Reason for Consultation: stroke eval Requesting Physician: Daniel Ceballos MD Attending Physician: Daniel Ceballos MD History of Present Illness Deyvi is a 50 year old male with PMH - CAD s/p stent, right carotid endarterect emily, recent CVA, history of CVA with residual L hand weakness, depression, DM type II, current tobacco use who presents to [facility] 06/16/2021 with weakness and fall from home. He was ambulating to the restroom around midnight and L knee gave out, followed by other leg. He struck the back of his head but had no LOC but was unable to get up due to weakness. EMS was called that morning. He lives alone and has a cane for ambulation but does not use it. His psychiatric medication was recently adjusted. He had an admission from 06/06- for medication overdose on oxycodone in setting of ongoing complex psychiatric issues. He is no longer taking oxycodone. He had an acute/subacute stroke on MRI brain with 8 mm focus of restricted water diffusion in the right parietal lobe. There was a question whether he was taking his plavix and aspirin. he denies any EtOH use or narcotic use. his weakness is the same in his left UE. denies CP, SOB, abdominal pain, new bowel or bladder issues, N, V. Allergies Allergy/AdvReac Type Severity Reaction Status Date / Time No Known Allergies Allergy Verified 06/16/21 15:56 Home Medications Medication Instructions Recorded Confirmed Type aspirin 81 mg tablet,delayed 81 mg PO QAM #17 tab 03/22/20 06/16/21 Rx release pantoprazole 40 mg tablet,delayed 40 mg PO DAILYBB 09/10/20 06/16/21 History release buspirone 5 mg tablet 5 mg PO TID 06/05/21 06/16/21 History clopidogrel 75 mg tablet (Plavix) 75 mg PO DAILY 06/05/21 06/16/21 History hydroxyzine pamoate 50 mg capsule 50 mg PO TID PRN 06/05/21 06/16/21 History lisinopril 30 mg tablet 30 mg PO DAILY 06/05/21 06/16/21 History lorazepam 1 mg tablet (Ativan) 0.5 mg PO Q8H PRN 06/05/21 06/16/21 History trazodone 100 mg tablet 100 mg PO HS 06/05/21 06/16/21 History atorvastatin 40 mg tablet 40 mg PO QAM 30 Days #30 tab 06/11/21 06/16/21 Rx fluvoxamine 100 mg tablet 100 mg PO BID #0 tab 06/11/21 06/16/21 Rx amlodipine 10 mg tablet 10 mg PO DAILY 06/16/21 06/16/21 History glipizide 5 mg tablet 5 mg PO DAILY 06/16/21 06/16/21 History hydralazine 25 mg tablet 25 mg PO TID 06/16/21 06/16/21 History propranolol 10 mg tablet 10 mg PO TID 06/16/21 06/16/21 History Patient History Medical History Abnormal MRI of head MRI 06/15/20 showed MCA infarcts as well as ring enhancement right posterior lobe. Repeat MRI recommended in 3 months. CAD (coronary artery disease) 2013 - NSTEMI s/p BRUCE to RCA Carotid stenosis, bilateral Depression DM type 2 (diabetes mellitus, type 2) Dyslipidemia History of cerebrovascular accident March 2020; subacute infarct noted to parietal lobe per 06/15/20 MRI Hypertension Ischemic cardiomyopathy EF=45% Surgical History Hx of endarterectomy (06/28/20) Right Carotid Endarterectomy with Bovine Patch Angioplasty Dr. Arita 06/28/2020 S/P drug eluting coronary stent placement Family History Mother , age 68 from metastatic lung cancer Lung cancer Father No problems noted. Social History Smoking Status: Current every day smoker Tobacco Type: Cigarettes Cigarettes Per Day: 5; Second Hand Exposure: No; Tobacco Cessation Education Requested by Patient: No Hx Alcohol Use: Yes Alcohol type: beer Hx Substance Use: Yes Last Used Substance: Unknown Last Used Substance Other:: denies use Preferred Language: Turkmen Communication Ability: Effective Mold Stamper Required: No Beliefs That Will Affect Care: None marital status: Single Current Living Situation: Other Current Living Situation Comment: friend current occupational status: previously employed current occupation: [employer] employee other: 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 unkempt Ears, Nose, Mouth and Throat: mucous membranes moist, no injection and skin normal, eyes normal Cardiovascular: RRR Respiratory: course breath sounds Musculoskeletal: no peripheral edema and good distal pulses Skin: no stigmata of neurocutaneous disease noted and normal and intact, discolorization of fingers Eyes: extraocular muscles intact (EOMI) and pupils equal, round and reactive to light (PERRL) NEUROLOGIC EXAMINATION: Mental status: Alert and interactive Oriented to full date and location Oriented to person Speech fluent with no evidence of aphasia Cranial Nerves smile eye brow raise intact Reflexes: Deep tendon reflexes were symmetrical and graded 2/5. Sensory: intact to light and cool touch Coordination: finger to nose no bipass Gait/Stance: Posture lying in bed Gait normal: not assessed Motor: + for pronator drift of out stretched arms with eyes closed on left Strength: hand fountain attendant biceps triceps right 5/5, left 4+/5, hip flex plantar flex ext 5/5 Results & Data ([facility]) Vital Signs (Past 12 Hours) Vital Signs Temp Pulse Pulse Resp BP Pulse Ox Pulse Ox 06/17/21 15:49 36.8 C 65 23 134/77 95 06/17/21 14:59 66 06/17/21 14:21 98 06/17/21 11:42 97 06/17/21 11:25 36.5 C 63 20 151/85 H 98 06/17/21 08:00 70 06/17/21 07:25 36.5 C 72 20 179/103 H 96 Laboratory Results Abnormal lab results 06/16/21 06/16/21 06/16/21 Range/Units 14:20 19:17 20:21 WBC (4.8-10.8) K/uL MPV (7.4-10.4) fL Potassium (3.5-5.1) mmol/L Chloride (98-107) mmol/L BUN/Creatinine Ratio (10-20) POC Glucose (70-99) mg/dl Hemoglobin A1c (4.5-5.6) % Total Bilirubin (0.2-1) mg/dl AST (15-37) U/L ALT (12-78) U/L Total Creatine Kinase 35935 H (39-308) U/L Troponin I 0.383 H* (0-0.045) ng/ml Albumin (3.4-5.0) gm/dl Urine Protein 2+ H (Negative) Urine Blood 3+ H (Negative) U Hyaline Cast (Auto) 10-30 H (0-5) /lpf U Epithel Cells (Auto) 20-30 H (0-5) /lpf 06/17/21 06/17/21 06/17/21 Range/Units 02:17 02:17 02:17 WBC 11.64 H (4.8-10.8) K/uL MPV 10.7 H (7.4-10.4) fL Potassium 3.3 L (3.5-5.1) mmol/L Chloride 109 H (98-107) mmol/L BUN/Creatinine Ratio 8.6 L (10-20) POC Glucose (70-99) mg/dl Hemoglobin A1c 5.7 H (4.5-5.6) % Total Bilirubin 1.1 H (0.2-1) mg/dl AST 403 H (15-37) U/L ALT 88 H (12-78) U/L Total Creatine Kinase > 21871 H (39-308) U/L Troponin I 0.287 H* (0-0.045) ng/ml Albumin 3.2 L (3.4-5.0) gm/dl Urine Protein (Negative) Urine Blood (Negative) U Hyaline Cast (Auto) (0-5) /lpf U Epithel Cells (Auto) (0-5) /lpf 06/17/21 06/17/21 Range/Units 11:24 16:03 WBC (4.8-10.8) K/uL MPV (7.4-10.4) fL Potassium (3.5-5.1) mmol/L Chloride (98-107) mmol/L BUN/Creatinine Ratio (10-20) POC Glucose 143 H 119 H (70-99) mg/dl Hemoglobin A1c (4.5-5.6) % Total Bilirubin (0.2-1) mg/dl AST (15-37) U/L ALT (12-78) U/L Total Creatine Kinase (39-308) U/L Troponin I (0-0.045) ng/ml Albumin (3.4-5.0) gm/dl Urine Protein (Negative) Urine Blood (Negative) U Hyaline Cast (Auto) (0-5) /lpf U Epithel Cells (Auto) (0-5) /lpf Diagnostic Findings MRI brain with and without- Redemonstration of large infarcts involving right frontal and temporal lobe. Persistent focal area of restricted diffusion/ischemia within right parietal lobe which is unchanged since recent prior study performed on June 05, 2021. 2. Questionable area of abnormal enhancement within right parietal lobe appears smaller then on June 15, 2020 exam and might represent sequela from recent reinfarction . liver US-Mild intra and extra hepatic biliary ductal dilatation. This could be correlated with obstructive liver function tests. Slight dilatation of the main pancreatic duct. Partially obscured pancreas. . No gallstones. Mild heterogeneous liver with increased echogenicity which may reflect mild hepatic steatosis.
[2021-06-17] MEDS: traZODone HCL 100 MG TAB PO SCH (20:26)
[2021-06-18 01:53] LABS: Basophils # (auto) 0.03 K/uL (0-0.2); Basophils % (auto) 0.3 %; Hemoglobin 14.3 g/dL (14.0-18.0); Immature Granulocytes # (auto) 0.04 K/uL (0.00-0.02); Immature Granulocytes % (auto) 0.4 %; Lymphocytes # (auto) 2.69 K/uL (1.2-3.4); Lymphocytes % (auto) 27.6 %; Mean Corpuscular Hgb Conc 34.9 g/dL (32-36); Mean Platelet Volume 10.2 fL (7.4-10.4); Monocytes # (auto) 0.75 K/uL (0.11-0.59); Monocytes % (auto) 7.7 %; Neutrophils # (auto) 6.14 K/uL (1.4-6.5); Platelet Count 145 K/uL (130-400); RDW Standard Deviation 43.1 fL (36.4-46.3); Red Blood Count 4.77 M/uL (4.7-6.1); White Blood Count 9.75 K/uL (4.8-10.8)
[2021-06-18 03:08] LABS: Albumin Level 3.2 gm/dl (3.4-5.0); BUN Creatinine Ratio 11.1 (10-20); Calcium 9.1 mg/dl (8.5-10.1); Creatinine Clr Calc Pharmacy 65.4 ml/min; Est GFR (African American) 79.6 ml/min; Est GFR (Non-African American) 68.7 ml/min; Globulin 3.2 gm/dl (2.5-4.0); Magnesium 2.2 mg/dl (1.8-2.4); Potassium 4.5 mmol/L (3.5-5.1); Total Protein 6.4 gm/dl (6.4-8.2)
[2021-06-18 03:29] LABS: Bilirubin,Total 0.9 mg/dl (0.2-1)
[2021-06-18] MEDS: NSS + 20MEQ KCL 20 MEQ/1,000 ML BAG IV SCH ×3 (05:40→19:38)
[2021-06-18] MEDS: HEPARIN SOD 5,000 UNIT/0.5 ML VIAL SQ SCH ×3 (05:53→21:39)
[2021-06-18] MEDS: PANTOprazole 40 MG TAB PO SCH (05:54)
[2021-06-18] MEDS: ASPIRIN 81 MG ECTAB PO SCH (07:38)
[2021-06-18] MEDS: CLOPIDOGREL BISULFATE 75 MG TAB PO SCH (07:38)
[2021-06-18] MEDS: PROPRANOLOL HCL 10 MG TAB PO SCH ×3 (07:41→20:44)
[2021-06-18] MEDS: lisinopril 10 MG TAB PO SCH (07:42)
[2021-06-18] MEDS: fluvoxaMINE MALEATE 50 MG TAB PO SCH ×2 (07:42→20:43)
[2021-06-18] MEDS: hydrALAZINE HCL 25 MG TAB PO SCH ×3 (07:42→20:44)
[2021-06-18] MEDS: ATORVASTATIN 40 MG TAB PO SCH (07:43)
[2021-06-18] MEDS: busPIRone 5 MG TAB PO SCH ×3 (07:43→20:43)
[2021-06-18] MEDS: amLODIPine BESYLATE 5 MG TAB PO SCH (07:43)
[2021-06-18] MEDS: INSULIN ASPART 100 UNITS/ML 3 ML PEN SC SCH ×4 (07:45→21:10)
--- NOTE | 2021-06-18 16:00 | Hospitalist Progress Note ---
Date of Service June 18, 2021 Assessment & Plan (1) Stroke-like symptoms: Plan: Patient is a 50 yr male with H/O CAD s/p stent, right carotid endarterectomy, recent CVA, history of CVA with residual R hand weakness, depression, DM type II, current tobacco use and other medical problems listed below who presents with weakness and fall from home. Strokelike symptoms Subacute right Parietal lobe infarction -MRI Brain: Redemonstration of large infarcts involving right frontal and temporal lobe. Persistent focal area of restricted diffusion/ischemia within right parietal lobe which is unchanged since recent prior study performed on June 05, 2021. Questionable area of abnormal enhancement within right parietal lobe appears smaller then on June 15, 2020 exam and might represent sequela from recent reinfarction . -Recent Head/Neck CTA:There is no evidence of hemorrhage, mass effect, or acute territorial ischemia noting angiographic phase technique. The tiny infarct seen by MRI is not apparent on CT. There is mild narrowing of the cavernous carotid arteries secondary to calcified plaque. This is unchanged from previous. Otherwise unremarkable CT angiogram of the brain. There is approximately 65% focal stenosis at the origin of the left internal carotid artery. This is unchanged from previous. There is approximately 50% luminal narrowing at the origin of the right internal carotid artery secondary to soft plaque. This has significantly increased as compared to 08/20/2020. Emphysema and patchy airspace consolidation is seen in the upper lobes. Correlate clinically for evidence of pneumonia. -ECHO: Left ventricle is normal in size. Severe concentric LVH. Mild hypokinesis of the inferior and posterior jenkins the base with all other wall segments danielle normally. (Also noted on prior ECHO) EF 55 to 60%. No pericardial effusion. -Continue aspirin, Plavix, atorvastatin Appreciate Neurology input Continue PT OT Fall precautions May need rehab placement Needs repeat MRI brain in 3 months as recommended by neurology. Counseled to quit smoking. Outpatient cardiac event monitor to be arranged to rule out arrhythmias. (2) Hypertensive urgency: Plan: Hypertensive Urgency Continue amlodipine, hydralazine, lisinopril Labetalol as needed BP stable (3) Fall: (4) Rhabdomyolysis: Plan: Acute rhabdomyolysis CK >35,000>> [id number] Continue IV fluids Monitor CK levels (5) Elevated troponin: Plan: Mild troponin elevation in setting of rhabdomyolysis Patient denies chest pain Echo seems to be unchanged as above Troponin trended down (6) CAD (coronary artery disease): Plan: Continue aspirin, statin, plavix (7) DM type 2 (diabetes mellitus, type 2): Plan: HbA1c 5.7 Insulin sliding scale while hospitalized Monitor BGs (8) Carotid stenosis, bilateral: Plan: Continue aspirin, plavix, statin (9) Depression: Plan: Continue Fluvoxamine, Buspar, trazodone Tobacco use disorder Counseled to quit smoking DVT Px: SQ heparin Code status: FULL CODE Disposition PT/OT prior to discharge Admission and Anticipated Discharge Date Admission Date: June 16, 2021 Subjective Patient is seen and examined at bedside Leg pain resolved No new complaints Denies chest pain, shortness breath, dizziness, nausea, abdominal pain CK level trending down Review of Systems Review of Systems: All systems reviewed & are unremarkable except as noted in Subjective Physical Exam Physical Exam: Physical Exam: Vitals signs as noted above General Appearance:Moderately built and nourished, no apparent distress Head: normocephalic, Atraumatic Eyes: normal inspection, EOMI Neck: supple, Trachea midline Respiratory/Chest: Normal breath sounds, CTA, No accessory muscle use Cardiovascular: S1, S2, No murmur Abdomen/GI:Soft, Non tender, Bowel sounds present Extremities/Musculoskeletal:normal inspection, no edema Neurologic/Psych:AAOX3, Left UE weakness Skin: normal color, warm Results & Data Results & Data ([facility]) Vital Signs (Past 12 Hours) Vital Signs Temp Pulse Pulse Resp BP Pulse Ox 06/18/21 12:00 36.9 C 83 18 148/81 H 94 06/18/21 10:17 63 06/18/21 08:00 36.7 C 76 18 158/82 H 98 06/18/21 05:40 65 147/91 H 06/18/21 04:26 62 06/18/21 04:23 61 177/95 H Laboratory Results Short CBC 06/18/21 Range/Units 01:43 WBC 9.75 (4.8-10.8) K/uL Hgb 14.3 (14.0-18.0) g/dL Hct 41.0 L (42-52) % Plt Count 145 (130-400) K/uL BMP 06/18/21 01:43 Sodium 141 Potassium 4.5 D Chloride 113 H Carbon Dioxide 25 BUN 14 Creatinine 1.22 Glucose 119 H Calcium 9.1 Cardiac Enzymes 06/18/21 Range/Units 01:43 Total Creatine Kinase 64923 H (39-308) U/L Liver Function 06/18/21 Range/Units 01:43 Total Bilirubin 0.9 (0.2-1) mg/dl AST 299 H (15-37) U/L ALT 90 H (12-78) U/L Alkaline Phosphatase 68 (45-117) U/L Albumin 3.2 L (3.4-5.0) gm/dl
--- NOTE | 2021-06-18 17:58 | Electroencephalogram ---
EEG Procedure Note Date of Service June 18, 2021 Start / End Times Start Time: : End Time: :[address] Ceballos History A 50-year-old male admitted for weakness and a fall. EEG performed for ration of epileptiform activity. Home Medication List Medication Instructions Recorded Confirmed Type aspirin 81 mg tablet,delayed 81 mg PO QAM #17 tab 03/22/20 06/16/21 Rx release pantoprazole 40 mg tablet,delayed 40 mg PO DAILYBB 09/10/20 06/16/21 History release buspirone 5 mg tablet 5 mg PO TID 06/05/21 06/16/21 History clopidogrel 75 mg tablet (Plavix) 75 mg PO DAILY 06/05/21 06/16/21 History hydroxyzine pamoate 50 mg capsule 50 mg PO TID PRN 06/05/21 06/16/21 History lisinopril 30 mg tablet 30 mg PO DAILY 06/05/21 06/16/21 History lorazepam 1 mg tablet (Ativan) 0.5 mg PO Q8H PRN 06/05/21 06/16/21 History trazodone 100 mg tablet 100 mg PO HS 06/05/21 06/16/21 History atorvastatin 40 mg tablet 40 mg PO QAM 30 Days #30 tab 06/11/21 06/16/21 Rx fluvoxamine 100 mg tablet 100 mg PO BID #0 tab 06/11/21 06/16/21 Rx amlodipine 10 mg tablet 10 mg PO DAILY 06/16/21 06/16/21 History glipizide 5 mg tablet 5 mg PO DAILY 06/16/21 06/16/21 History hydralazine 25 mg tablet 25 mg PO TID 06/16/21 06/16/21 History propranolol 10 mg tablet 10 mg PO TID 06/16/21 06/16/21 History Inpatient Medication List Acetaminophen (Acetaminophen 325 Mg Tab) 650 mg PO Q4H PRN PRN Reason: Pain or Fever Stop: 07/16/21 20:13 Last Admin: 06/17/21 00:11 Dose: 650 mg Documented by: [id number] Amlodipine Besylate (Amlodipine Besylate 5 Mg Tab) 10 mg PO DAILY [facility] Stop: 07/17/21 08:59 Last Admin: 06/18/21 07:43 Dose: 10 mg Documented by: [id number] Admin: 06/17/21 07:39 Dose: 10 mg Documented by: [id number] Aspirin (Aspirin 81 Mg Ectab) 81 mg PO QAM [facility] Stop: 07/17/21 08:59 Last Admin: 06/18/21 07:38 Dose: 81 mg Documented by: [id number] Admin: 06/17/21 07:40 Dose: 81 mg Documented by: [id number] Atorvastatin Calcium (Atorvastatin 40 Mg Tab) 40 mg PO QAM [facility] Stop: 07/17/21 08:59 Last Admin: 06/18/21 07:43 Dose: 40 mg Documented by: [id number] Admin: 06/17/21 07:41 Dose: 40 mg Documented by: [id number] Buspirone HCl (Buspirone 5 Mg Tab) 5 mg PO TID [facility] Stop: 07/16/21 21:19 Last Admin: 06/18/21 15:02 Dose: 5 mg Documented by: [id number] Admin: 06/18/21 07:43 Dose: 5 mg Documented by: [id number] Admin: 06/17/21 20:26 Dose: 5 mg Documented by: [id number] Admin: 06/17/21 13:13 Dose: 5 mg Documented by: [id number] Admin: 06/17/21 07:39 Dose: 5 mg Documented by: [id number] Admin: 06/16/21 22:06 Dose: 5 mg Documented by: [id number] Clopidogrel Bisulfate (Clopidogrel Bisulfate 75 Mg Tab) 75 mg PO DAILY [facility] Stop: 07/17/21 08:59 Last Admin: 06/18/21 07:38 Dose: 75 mg Documented by: [id number] Admin: 06/17/21 07:41 Dose: 75 mg Documented by: [id number] Fluvoxamine Maleate (Fluvoxamine Maleate 50 Mg Tab) 100 mg PO BID [facility] Stop: 07/16/21 21:29 Last Admin: 06/18/21 07:42 Dose: 100 mg Documented by: [id number] Admin: 06/17/21 20:27 Dose: 100 mg Documented by: [id number] Admin: 06/17/21 07:39 Dose: 100 mg Documented by: [id number] Admin: 06/16/21 22:06 Dose: 100 mg Documented by: [id number] Heparin Sodium (Porcine) (Heparin Sod 5,000 Unit/0.5 Ml Vial) 5,000 units SQ Q8 [facility] Stop: 07/16/21 21:59 Last Admin: 06/18/21 14:29 Dose: Not Given Documented by: [id number] Admin: 06/18/21 05:53 Dose: Not Given Documented by: [id number] Admin: 06/17/21 22:03 Dose: Not Given Documented by: [id number] Admin: 06/17/21 13:13 Dose: 5,000 units Documented by: [id number] Admin: 06/17/21 06:23 Dose: 5,000 units Documented by: [id number] Admin: 06/16/21 21:00 Dose: 5,000 units Documented by: [id number] Hydralazine HCl (Hydralazine Hcl 25 Mg Tab) 25 mg PO TID [facility] Stop: 07/16/21 21:19 Last Admin: 06/18/21 15:02 Dose: 25 mg Documented by: [id number] Admin: 06/18/21 07:42 Dose: 25 mg Documented by: [id number] Admin: 06/17/21 20:32 Dose: 25 mg Documented by: [id number] Admin: 06/17/21 13:13 Dose: 25 mg Documented by: [id number] Admin: 06/17/21 07:40 Dose: 25 mg Documented by: [id number] Admin: 06/16/21 22:06 Dose: 25 mg Documented by: [id number] Potassium Chloride/Sodium Chloride (Normal Saline W/20 Meq Kcl) 20 meq in 1,000 mls @ 150 mls/hr IV .Q6H40M [facility] Stop: 07/16/21 20:59 Last Admin: 06/18/21 12:25 Dose: 150 mls/hr Documented by: [id number] Infusion: 06/18/21 12:21 Dose: 150 mls/hr Documented by: [id number] Admin: 06/18/21 05:40 Dose: 150 mls/hr Documented by: [id number] Infusion: 06/18/21 05:33 Dose: 150 mls/hr Documented by: [id number] Admin: 06/17/21 22:52 Dose: 150 mls/hr Documented by: [id number] Infusion: 06/17/21 22:52 Dose: 150 mls/hr Documented by: [id number] Admin: 06/17/21 17:01 Dose: 150 mls/hr Documented by: [id number] Infusion: 06/17/21 17:01 Dose: 150 mls/hr Documented by: [id number] Admin: 06/17/21 11:06 Dose: 150 mls/hr Documented by: [id number] Infusion: 06/17/21 10:16 Dose: 150 mls/hr Documented by: [id number] Admin: 06/17/21 03:35 Dose: 150 mls/hr Documented by: [id number] Infusion: 06/17/21 03:35 Dose: 150 mls/hr Documented by: [id number] Admin: 06/16/21 20:55 Dose: 150 mls/hr Documented by: [id number] Insulin Aspart (Insulin Aspart 100 Units/Ml 3 Ml Pen) 0 units SC ACHS [facility] Stop: 07/16/21 20:59 Last Admin: 06/18/21 17:18 Dose: 3 units Documented by: [id number] Cosigned by: [id number] Admin: 06/18/21 12:25 Dose: Not Given Documented by: [id number] Admin: 06/18/21 07:45 Dose: 3 units Documented by: [id number] Cosigned by: [id number] Admin: 06/17/21 20:45 Dose: Not Given Documented by: [id number] Cosigned by: [id number] Admin: 06/17/21 17:26 Dose: Not Given Documented by: [id number] Admin: 06/17/21 11:54 Dose: 3 units Documented by: [id number] Cosigned by: [id number] Admin: 06/17/21 07:41 Dose: 2 units Documented by: [id number] Cosigned by: [id number] Admin: 06/16/21 20:59 Dose: Not Given Documented by: [id number] Cosigned by: [id number] Lisinopril (Lisinopril 10 Mg Tab) 30 mg PO DAILY [facility] Stop: 07/17/21 08:59 Last Admin: 06/18/21 07:42 Dose: 30 mg Documented by: [id number] Admin: 06/17/21 07:40 Dose: 30 mg Documented by: [id number] Nicotine Polacrilex (Nicotine Polacrilex 2 Mg Gum) 1 piece MT PRN PRN PRN Reason: Undecided Stop: 07/17/21 15:52 Last Admin: 06/17/21 20:25 Dose: 1 piece Documented by: [id number] Admin: 06/17/21 16:20 Dose: 1 piece Documented by: [id number] [facility] ([facility] 40 Mg [facility] Stop: 07/17/21 06:29 Last Admin: 06/18/21 05:54 Dose: 40 mg Documented by: [id number] Admin: 06/17/21 06:23 Dose: 40 mg Documented by: [id number] Propranolol HCl (Propranolol Hcl 10 Mg Tab) 10 mg PO TID [facility] Stop: 07/17/21 08:59 Last Admin: 06/18/21 15:02 Dose: 10 mg Documented by: [id number] Admin: 06/18/21 07:41 Dose: 10 mg Documented by: [id number] Admin: 06/17/21 20:31 Dose: 10 mg Documented by: [id number] Admin: 06/17/21 13:14 Dose: 10 mg Documented by: [id number] Admin: 06/17/21 07:39 Dose: 10 mg Documented by: [id number] Trazodone HCl (Trazodone Hcl 100 Mg Tab) 100 mg PO HS [facility] Stop: 07/17/21 20:59 Last Admin: 06/17/21 20:26 Dose: 100 mg Documented by: [id number] Discontinued Medications Aspirin (Aspirin Chew 324 Mg) 324 mg PO NOW STA Stop: 06/16/21 17:19 Last Admin: 06/16/21 17:38 Dose: 324 mg Documented by: [id number] Gadobutrol (Gadobutrol 7.5ml Vial) 7 ml IV ONCE ONE Stop: 06/16/21 23:12 Last Admin: 06/16/21 23:12 Dose: 7 ml Documented by: [id number] Sodium Chloride (Nss 1000ml) 500 mls @ 999 mls/hr IV .Q31M ONE Stop: 06/16/21 17:48 Last Infusion: 06/16/21 18:09 Dose: 0 mls/hr Documented by: [id number] Admin: 06/16/21 17:38 Dose: 999 mls/hr Documented by: [id number] Labetalol HCl (Labetalol Hcl Iv 5 Mg/Ml 20ml) 10 mg IV NOW STA Stop: 06/16/21 18:13 Last Admin: 06/16/21 18:29 Dose: 10 mg Documented by: [id number] Cosigned by: [id number] Labetalol HCl (Labetalol Hcl Iv 5 Mg/Ml 20ml) 10 mg IV Q6H PRN PRN Reason: SBP >180 Stop: 07/16/21 22:59 Last Admin: 06/18/21 03:54 Dose: 10 mg Documented by: [id number] Cosigned by: [id number] Potassium Chloride (Potassium Chloride Crtab 20 Meq Tabcr) 40 meq PO ONE ONE Stop: 06/17/21 08:23 Last Admin: 06/17/21 09:57 Dose: 40 meq Documented by: [id number] Description This is a 21 electrode EEG with a single channel dedicated to limited EKG. The electrodes were placed in accordance with the International 10-20 system. REPORT: At the onset of the EEG the patient is awake. The posterior dominant rhythm is 9 Hz. The background is symmetric and well organized. Drowsiness is characterized by increased theta activity, reduced blink rate, and decreased myogenic artifact. Photic stimulation does not induce any abnormalities. No stage II sleep transients are recorded. Interpretation IMPRESSION: This is a normal awake and drowsy routine EEG. There is no evidence of focal slowing or epileptiform activity.
--- NOTE | 2021-06-18 18:04 | Progress Notes ---
DATE OF SERVICE: 06/18/2021 Mr. Bansal looks well today. He has not had any recurrent events of weakness of the right or lef t leg. His EEG has been performed, but not yet read. Orthostatics have not been checked yet. On exam, he is awake and alert. There is normal speech and language. There is no facial asymmetry o r field cut. There are decreased rapid alternating movements on the left and some drift. Lower extr emities are antigravity. IMPRESSION: Tiny right parietal cortical infarction about 10 days ago. Continue dual antiplatelet th erapy as noted previously. Continue risk factor modification, smoking cessation. The patient needs a registered nurse cardiac telemetry as an outpatient. This can be arranged either through primary care or when he sees our office in followup. The patient also has a known left internal carotid stenosis of 65%, which i s said to be stable. This should be followed up with a carotid ultrasound in 6 months with referral to vascular surgery if greater than 70% stenosis. Would check orthostatics for an etiology of this episode of fall. Await results of EEG. We will sig n off, but we will check in to see the results. Please schedule a followup with myself, Dr. Ashby, or Digna Timmons as an outpatient. Job ID: [id number]
[2021-06-18] MEDS: traZODone HCL 100 MG TAB PO SCH (20:44)
[2021-06-18] MEDS: NICOTINE POLACRILEX 2 MG GUM MT PRN (21:39)
[2021-06-19] MEDS: NSS + 20MEQ KCL 20 MEQ/1,000 ML BAG IV SCH ×4 (02:31→23:37)
[2021-06-19] MEDS: HEPARIN SOD 5,000 UNIT/0.5 ML VIAL SQ SCH ×4 (06:26→21:13)
[2021-06-19] MEDS: PANTOprazole 40 MG TAB PO SCH (06:26)
[2021-06-19 07:42] LABS: Hemoglobin 14.4 g/dL (14.0-18.0); Mean Corpuscular Hemoglobin 29.8 pg (25-34); Mean Corpuscular Hgb Conc 35.1 g/dL (32-36); Mean Corpuscular Volume 84.7 fL (80-100); Mean Platelet Volume 10.4 fL (7.4-10.4); Platelet Count 145 K/uL (130-400); RDW Standard Deviation 43.1 fL (36.4-46.3); Red Blood Count 4.84 M/uL (4.7-6.1); White Blood Count 8.71 K/uL (4.8-10.8)
[2021-06-19 08:18] LABS: Albumin Level 3.3 gm/dl (3.4-5.0); BUN Creatinine Ratio 14.7 (10-20); Calcium 9.1 mg/dl (8.5-10.1); Est GFR (African American) 100.1 ml/min; Est GFR (Non-African American) 86.3 ml/min; Potassium 4.6 mmol/L (3.5-5.1)
[2021-06-19 08:35] LABS: Bilirubin,Total 0.8 mg/dl (0.2-1); Globulin 3.3 gm/dl (2.5-4.0); Total Protein 6.6 gm/dl (6.4-8.2)
[2021-06-19] MEDS: INSULIN ASPART 100 UNITS/ML 3 ML PEN SC SCH ×4 (08:59→21:14)
[2021-06-19] MEDS: ATORVASTATIN 40 MG TAB PO SCH (09:01)
[2021-06-19] MEDS: PROPRANOLOL HCL 10 MG TAB PO SCH ×3 (09:01→21:12)
[2021-06-19] MEDS: CLOPIDOGREL BISULFATE 75 MG TAB PO SCH (09:02)
[2021-06-19] MEDS: amLODIPine BESYLATE 5 MG TAB PO SCH (09:02)
[2021-06-19] MEDS: ASPIRIN 81 MG ECTAB PO SCH (09:02)
[2021-06-19] MEDS: hydrALAZINE HCL 25 MG TAB PO SCH ×3 (09:02→21:12)
[2021-06-19] MEDS: lisinopril 10 MG TAB PO SCH (09:03)
[2021-06-19] MEDS: CYANOCOBALAMIN 500 MCG TABLET (VITAMIN B-12) PO SCH (09:03)
[2021-06-19] MEDS: fluvoxaMINE MALEATE 50 MG TAB PO SCH ×2 (09:03→21:12)
[2021-06-19] MEDS: CEROVITE ADV FORMULA TAB PO SCH (09:03)
[2021-06-19] MEDS: THIAMINE HCL 100 MG TAB PO SCH (09:03)
[2021-06-19] MEDS: NICOTINE POLACRILEX 2 MG GUM MT PRN ×2 (09:04→15:52)
[2021-06-19] MEDS: busPIRone 5 MG TAB PO SCH ×3 (09:04→21:13)
--- NOTE | 2021-06-19 10:16 | Hospitalist Progress Note ---
Date of Service June 19, 2021 Assessment & Plan (1) Stroke-like symptoms: Plan: Patient is a 50 yr male with H/O CAD s/p stent, right carotid endarterectomy, recent CVA, history of CVA with residual R hand weakness, depression, DM type II, current tobacco use and other medical problems listed below who presents with weakness and fall from home. Strokelike symptoms Subacute right Parietal lobe infarction -MRI Brain: Redemonstration of large infarcts involving right frontal and temporal lobe. Persistent focal area of restricted diffusion/ischemia within right parietal lobe which is unchanged since recent prior study performed on June 05, 2021. Questionable area of abnormal enhancement within right parietal lobe appears smaller then on June 15, 2020 exam and might represent sequela from recent reinfarction . -Recent Head/Neck CTA:There is no evidence of hemorrhage, mass effect, or acute territorial ischemia noting angiographic phase technique. The tiny infarct seen by MRI is not apparent on CT. There is mild narrowing of the cavernous carotid arteries secondary to calcified plaque. This is unchanged from previous. Otherwise unremarkable CT angiogram of the brain. There is approximately 65% focal stenosis at the origin of the left internal carotid artery. This is unchanged from previous. There is approximately 50% luminal narrowing at the origin of the right internal carotid artery secondary to soft plaque. This has significantly increased as compared to 08/20/2020. Emphysema and patchy airspace consolidation is seen in the upper lobes. Correlate clinically for evidence of pneumonia. -ECHO: Left ventricle is normal in size. Severe concentric LVH. Mild hypokinesis of the inferior and posterior jenkins the base with all other wall segments danielle normally. (Also noted on prior ECHO) EF 55 to 60%. No pericardial effusion. -Continue aspirin, Plavix, atorvastatin Appreciate Neurology input Continue PT OT Fall precautions May need rehab placement Needs repeat MRI brain in 3 months as recommended by neurology. Counseled to quit smoking. Outpatient cardiac event monitor to be arranged to rule out arrhythmias. Pt will also need to follow up re: carotid artery stenosis (2) Hypertensive urgency: Plan: Hypertensive Urgency Continue amlodipine, hydralazine, lisinopril Labetalol as needed BP much improved, at goal mild Bradycardia HR <60 will decrease propranolol to BID from TID continue to closely monitor (3) Fall: (4) Rhabdomyolysis: Plan: Acute rhabdomyolysis CK >35,000>> 14,000>11,000 Now below 5000 Continue IV fluids Monitor CK levels (5) Elevated troponin: Plan: Mild troponin elevation in setting of rhabdomyolysis Patient denies chest pain Echo seems to be unchanged as above Troponin trended down (6) CAD (coronary artery disease): Plan: Continue aspirin, statin, plavix (7) DM type 2 (diabetes mellitus, type 2): Plan: HbA1c 5.7 Insulin sliding scale while hospitalized Monitor BGs (8) Carotid stenosis, bilateral: Plan: Continue aspirin, plavix, statin (9) Depression: Plan: Continue Fluvoxamine, Buspar, trazodone Tobacco use disorder Counseled to quit smoking DVT Px: SQ heparin Code status: FULL CODE Disposition PT/OT prior to discharge - plan to DC to [facility] Admission and Anticipated Discharge Date Admission Date: June 16, 2021 Subjective Patient is seen and examined at bedside Currently in no acute distress, yesterday was feeling anxious, felt like he was in the nursing home Currently calm, no issues Denies chest pain, shortness breath, dizziness, nausea, abdominal pain CK level trending down Review of Systems Review of Systems: All systems reviewed & are unremarkable except as noted in Subjective Physical Exam Physical Exam: General Appearance:Moderately built and nourished, no apparent distress Head: normocephalic, Atraumatic Eyes: normal inspection, EOMI Neck: supple, Trachea midline Respiratory/Chest: Normal breath sounds, CTA, No accessory muscle use Cardiovascular: S1, S2, No murmur Abdomen/GI:Soft, Non tender, Bowel sounds present Extremities/Musculoskeletal:normal inspection, no edema Neurologic/Psych:AAOX3, Left UE weakness Skin: normal color, warm Results & Data Results & Data ([facility]) Vital Signs (Past 12 Hours) Vital Signs Temp Pulse Resp BP Pulse Ox 06/19/21 08:10 36.5 C 55 L 19 147/76 H 96 06/18/21 23:14 36.5 C 59 L 17 143/80 H 95 Laboratory Results 06/19/21 06/19/21 06/19/21 Range/Units 08:05 07:07 07:07 WBC 8.71 (4.8-10.8) K/uL RBC 4.84 (4.7-6.1) M/uL Hgb 14.4 (14.0-18.0) g/dL Hct 41.0 L (42-52) % MCV 84.7 (80-100) fL MCH 29.8 (25-34) pg MCHC 35.1 (32-36) g/dL RDW Std Deviation 43.1 (36.4-46.3) fL RDW Coeff of Dione 14.0 (11.5-14.5) % Plt Count 145 (130-400) K/uL MPV 10.4 (7.4-10.4) fL Sodium 142 (136-145) mmol/L Potassium 4.6 (3.5-5.1) mmol/L Chloride 114 H (98-107) mmol/L Carbon Dioxide 24 (21-32) mmol/L Anion Gap 3.0 (3-11) BUN 15 (7-18) mg/dl Creatinine 1.01 (0.6-1.4) mg/dl Est Cr Clr Drug Dosing 79.0 ml/min Est GFR ( Amer) 100.1 ml/min Est GFR (Non-Af Amer) 86.3 ml/min BUN/Creatinine Ratio 14.7 (10-20) Glucose 106 H (70-99) mg/dl POC Glucose 111 H (70-99) mg/dl Calcium 9.1 (8.5-10.1) mg/dl Total Bilirubin 0.8 (0.2-1) mg/dl AST 217 H (15-37) U/L ALT 88 H (12-78) U/L Alkaline Phosphatase 66 (45-117) U/L Total Creatine Kinase 4878 H (39-308) U/L Total Protein 6.6 (6.4-8.2) gm/dl Albumin 3.3 L (3.4-5.0) gm/dl Globulin 3.3 (2.5-4.0) gm/dl Albumin/Globulin Ratio 1.0 (0.9-2) 06/18/21 06/18/21 06/18/21 Range/Units 20:50 16:19 11:17 WBC (4.8-10.8) K/uL RBC (4.7-6.1) M/uL Hgb (14.0-18.0) g/dL Hct (42-52) % MCV (80-100) fL MCH (25-34) pg MCHC (32-36) g/dL RDW Std Deviation (36.4-46.3) fL RDW Coeff of Dione (11.5-14.5) % Plt Count (130-400) K/uL MPV (7.4-10.4) fL Sodium (136-145) mmol/L Potassium (3.5-5.1) mmol/L Chloride (98-107) mmol/L Carbon Dioxide (21-32) mmol/L Anion Gap (3-11) BUN (7-18) mg/dl Creatinine (0.6-1.4) mg/dl Est Cr Clr Drug Dosing ml/min Est GFR ( Amer) ml/min Est GFR (Non-Af Amer) ml/min BUN/Creatinine Ratio (10-20) Glucose (70-99) mg/dl POC Glucose 103 H 122 H 131 H (70-99) mg/dl Calcium (8.5-10.1) mg/dl Total Bilirubin (0.2-1) mg/dl AST (15-37) U/L ALT (12-78) U/L Alkaline Phosphatase (45-117) U/L Total Creatine Kinase (39-308) U/L Total Protein (6.4-8.2) gm/dl Albumin (3.4-5.0) gm/dl Globulin (2.5-4.0) gm/dl Albumin/Globulin Ratio (0.9-2) Medications Administered Current Inpatient Medications Acetaminophen (Acetaminophen 325 Mg Tab) 650 mg PO Q4H PRN PRN Reason: Pain or Fever Stop: 07/16/21 20:13 Last Admin: 06/17/21 00:11 Dose: 650 mg Documented by: Amlodipine Besylate (Amlodipine Besylate 5 Mg Tab) 10 mg PO DAILY [facility] Stop: 07/17/21 08:59 Last Admin: 06/19/21 09:02 Dose: 10 mg Documented by: Aspirin (Aspirin 81 Mg Ectab) 81 mg PO QAM [facility] Stop: 07/17/21 08:59 Last Admin: 06/19/21 09:02 Dose: 81 mg Documented by: Atorvastatin Calcium (Atorvastatin 40 Mg Tab) 40 mg PO QAM [facility] Stop: 07/17/21 08:59 Last Admin: 06/19/21 09:01 Dose: 40 mg Documented by: Buspirone HCl (Buspirone 5 Mg Tab) 5 mg PO TID [facility] Stop: 07/16/21 21:19 Last Admin: 06/19/21 09:04 Dose: 5 mg Documented by: Clopidogrel Bisulfate (Clopidogrel Bisulfate 75 Mg Tab) 75 mg PO DAILY [facility] Stop: 07/17/21 08:59 Last Admin: 06/19/21 09:02 Dose: 75 mg Documented by: Cyanocobalamin (Cyanocobalamin 500 Mcg Tablet (Vitamin B-12)) 1,000 mcg PO QAM [facility] Stop: 07/19/21 08:59 Last Admin: 06/19/21 09:03 Dose: 1,000 mcg Documented by: Dextrose (Dextrose 50% 50 Ml Syringe) 25 - 50 ml IV UD PRN; Protocol PRN Reason: Hypoglycemia Protocol Stop: 07/16/21 20:13 Fluvoxamine Maleate (Fluvoxamine Maleate 50 Mg Tab) 100 mg PO BID [facility] Stop: 07/16/21 21:29 Last Admin: 06/19/21 09:03 Dose: 100 mg Documented by: Glucagon (Glucagon For Inj 1 Mg Vial) 1 mg SQ UD PRN; Protocol PRN Reason: Hypoglycemia Protocol Stop: 07/16/21 20:13 Glucose (Glucose 10 Tabs/Tube) 4 - 8 tabs PO UD PRN; Protocol PRN Reason: Hypoglycemia Protocol Stop: 07/16/21 20:13 Glucose (Glucose 40% Gel 15 Gm Tube) 15 - 30 gm PO UD PRN; Protocol PRN Reason: Hypoglycemia Protocol Stop: 07/16/21 20:13 Heparin Sodium (Porcine) (Heparin Sod 5,000 Unit/0.5 Ml Vial) 5,000 units SQ Q8 [facility] Stop: 07/16/21 21:59 Last Admin: 06/19/21 06:26 Dose: 5,000 units Documented by: Hydralazine HCl (Hydralazine Hcl 25 Mg Tab) 25 mg PO TID [facility] Stop: 07/16/21 21:19 Last Admin: 06/19/21 09:02 Dose: 25 mg Documented by: Potassium Chloride/Sodium Chloride (Normal Saline W/20 Meq Kcl) 20 meq in 1,000 mls @ 150 mls/hr IV .Q6H40M [facility] Stop: 07/16/21 20:59 Last Admin: 06/19/21 09:24 Dose: 150 mls/hr Documented by: Insulin Aspart (Insulin Aspart 100 Units/Ml 3 Ml Pen) 0 units SC ACHS [facility] Stop: 07/16/21 20:59 Last Admin: 06/19/21 08:59 Dose: 3 units Documented by: Lisinopril (Lisinopril 10 Mg Tab) 30 mg PO DAILY [facility] Stop: 07/17/21 08:59 Last Admin: 06/19/21 09:03 Dose: 30 mg Documented by: Lorazepam (Lorazepam 1 Mg Tab) 1 mg PO Q8H PRN PRN Reason: anxiety Stop: 07/16/21 21:14 Miscellaneous (Carbohydrates For Hypoglycemia ) 15 - 30 gm PO UD PRN PRN Reason: Hypoglycemia Protocol Stop: 07/16/21 20:13 Miscellaneous Information (Pharmacist Discharge Med Rec Consult) 1 ea N/A UD PRN PRN Reason: Consult Stop: 07/16/21 20:13 Multivitamins/Minerals (Cerovite Adv Formula Tab) 1 tab PO QAM [facility] Stop: 07/19/21 08:59 Last Admin: 06/19/21 09:03 Dose: 1 tab Documented by: Nicotine Polacrilex (Nicotine Polacrilex 2 Mg Gum) 1 piece MT PRN PRN PRN Reason: Undecided Stop: 07/17/21 15:52 Last Admin: 06/19/21 09:04 Dose: 1 piece Documented by: Pantoprazole Sodium (Pantoprazole 40 Mg Tab) 40 mg PO DAILYBB [facility] Stop: 07/17/21 06:29 Last Admin: 06/19/21 06:26 Dose: 40 mg Documented by: Polyethylene Glycol (Polyethylene (Miralax) 17 Gm Pack) 17 gm PO DAILY PRN PRN Reason: Constipation Stop: 07/16/21 20:13 Propranolol HCl (Propranolol Hcl 10 Mg Tab) 10 mg PO TID [facility] Stop: 07/17/21 08:59 Last Admin: 06/19/21 09:01 Dose: 10 mg Documented by: Thiamine HCl (Thiamine Hcl 100 Mg Tab) 100 mg PO QAM [facility] Stop: 07/19/21 08:59 Last Admin: 06/19/21 09:03 Dose: 100 mg Documented by: Trazodone HCl (Trazodone Hcl 100 Mg Tab) 100 mg PO HS [facility] Stop: 07/17/21 20:59 Last Admin: 06/18/21 20:44 Dose: 100 mg Documented by:
[2021-06-19] MEDS: traZODone HCL 100 MG TAB PO SCH (21:13)
[2021-06-20] MEDS: PANTOprazole 40 MG TAB PO SCH (06:12)
[2021-06-20] MEDS: NSS + 20MEQ KCL 20 MEQ/1,000 ML BAG IV SCH ×3 (06:13→20:21)
[2021-06-20] MEDS: HEPARIN SOD 5,000 UNIT/0.5 ML VIAL SQ SCH ×3 (06:16→22:19)
[2021-06-20 07:05] LABS: Hematocrit (blood only) 43.8 % (42-52); Hemoglobin 15.2 g/dL (14.0-18.0); Mean Corpuscular Hgb Conc 34.7 g/dL (32-36); Mean Corpuscular Volume 86.6 fL (80-100); Mean Platelet Volume 10.5 fL (7.4-10.4); Platelet Count 154 K/uL (130-400); RDW Coefficient of Variation 14.3 % (11.5-14.5); RDW Standard Deviation 44.2 fL (36.4-46.3); Red Blood Count 5.06 M/uL (4.7-6.1); White Blood Count 8.59 K/uL (4.8-10.8)
[2021-06-20 07:42] LABS: Albumin Level 3.4 gm/dl (3.4-5.0); BUN Creatinine Ratio 12.3 (10-20); Calcium 9.3 mg/dl (8.5-10.1); Creatinine Clr Calc Pharmacy 76.7 ml/min; Est GFR (African American) 96.6 ml/min; Est GFR (Non-African American) 83.3 ml/min; Magnesium 2.3 mg/dl (1.8-2.4); Potassium 4.5 mmol/L (3.5-5.1)
[2021-06-20 07:57] LABS: Bilirubin,Total 0.6 mg/dl (0.2-1); Globulin 3.4 gm/dl (2.5-4.0); Total Protein 6.8 gm/dl (6.4-8.2)
[2021-06-20] MEDS: amLODIPine BESYLATE 5 MG TAB PO SCH (09:00)
[2021-06-20] MEDS: THIAMINE HCL 100 MG TAB PO SCH (09:00)
[2021-06-20] MEDS: PROPRANOLOL HCL 10 MG TAB PO SCH ×4 (09:01→20:30)
[2021-06-20] MEDS: INSULIN ASPART 100 UNITS/ML 3 ML PEN SC SCH ×4 (09:01→20:27)
[2021-06-20] MEDS: CEROVITE ADV FORMULA TAB PO SCH (09:01)
[2021-06-20] MEDS: CYANOCOBALAMIN 500 MCG TABLET (VITAMIN B-12) PO SCH (09:03)
[2021-06-20] MEDS: ATORVASTATIN 40 MG TAB PO SCH (09:03)
[2021-06-20] MEDS: ASPIRIN 81 MG ECTAB PO SCH (09:03)
[2021-06-20] MEDS: lisinopril 10 MG TAB PO SCH (09:04)
[2021-06-20] MEDS: busPIRone 5 MG TAB PO SCH ×3 (09:04→20:22)
[2021-06-20] MEDS: CLOPIDOGREL BISULFATE 75 MG TAB PO SCH (09:04)
[2021-06-20] MEDS: hydrALAZINE HCL 25 MG TAB PO SCH ×3 (09:05→20:23)
[2021-06-20] MEDS: fluvoxaMINE MALEATE 50 MG TAB PO SCH ×2 (09:05→20:24)
[2021-06-20] MEDS: NICOTINE POLACRILEX 2 MG GUM MT PRN ×3 (10:16→20:20)
[2021-06-20] MEDS: traZODone HCL 100 MG TAB PO SCH (20:22)
[2021-06-21] MEDS: NSS + 20MEQ KCL 20 MEQ/1,000 ML BAG IV SCH ×3 (02:43→16:02)
[2021-06-21] MEDS: HEPARIN SOD 5,000 UNIT/0.5 ML VIAL SQ SCH ×3 (06:14→21:56)
[2021-06-21] MEDS: PANTOprazole 40 MG TAB PO SCH (06:14)
[2021-06-21 07:23] LABS: Hematocrit (blood only) 44.2 % (42-52); Hemoglobin 15.4 g/dL (14.0-18.0); Mean Corpuscular Hgb Conc 34.8 g/dL (32-36); Mean Platelet Volume 10.2 fL (7.4-10.4); Platelet Count 139 K/uL (130-400); RDW Coefficient of Variation 14.1 % (11.5-14.5); RDW Standard Deviation 43.4 fL (36.4-46.3); Red Blood Count 5.14 M/uL (4.7-6.1); White Blood Count 7.83 K/uL (4.8-10.8)
[2021-06-21] MEDS: ACETAMINOPHEN 325 MG TAB PO PRN (07:38)
[2021-06-21 07:58] LABS: Albumin Level 3.4 gm/dl (3.4-5.0); BUN Creatinine Ratio 11.3 (10-20); Calcium 9.5 mg/dl (8.5-10.1); Creatinine Clr Calc Pharmacy 68.2 ml/min; Est GFR (African American) 83.8 ml/min; Est GFR (Non-African American) 72.3 ml/min; Magnesium 2.2 mg/dl (1.8-2.4); Potassium 4.7 mmol/L (3.5-5.1)
[2021-06-21 08:12] LABS: Bilirubin,Total 0.6 mg/dl (0.2-1); Globulin 3.5 gm/dl (2.5-4.0); Phosphorus 2.7 mg/dl (2.5-4.9); Total Protein 6.9 gm/dl (6.4-8.2)
--- NOTE | 2021-06-21 09:30 | Hospitalist Progress Note ---
Date of Service June 20, 2021 Assessment & Plan (1) Stroke-like symptoms: Plan: Patient is a 50 yr male with H/O CAD s/p stent, right carotid endarterectomy, recent CVA, history of CVA with residual R hand weakness, depression, DM type II, current tobacco use and other medical problems listed below who presents with weakness and fall from home. Strokelike symptoms Subacute right Parietal lobe infarction -MRI Brain: Redemonstration of large infarcts involving right frontal and temporal lobe. Persistent focal area of restricted diffusion/ischemia within right parietal lobe which is unchanged since recent prior study performed on June 05, 2021. Questionable area of abnormal enhancement within right parietal lobe appears smaller then on June 15, 2020 exam and might represent sequela from recent reinfarction . -Recent Head/Neck CTA:There is no evidence of hemorrhage, mass effect, or acute territorial ischemia noting angiographic phase technique. The tiny infarct seen by MRI is not apparent on CT. There is mild narrowing of the cavernous carotid arteries secondary to calcified plaque. This is unchanged from previous. Otherwise unremarkable CT angiogram of the brain. There is approximately 65% focal stenosis at the origin of the left internal carotid artery. This is unchanged from previous. There is approximately 50% luminal narrowing at the origin of the right internal carotid artery secondary to soft plaque. This has significantly increased as compared to 08/20/2020. Emphysema and patchy airspace consolidation is seen in the upper lobes. Correlate clinically for evidence of pneumonia. -ECHO: Left ventricle is normal in size. Severe concentric LVH. Mild hypokinesis of the inferior and posterior jenkins the base with all other wall segments danielle normally. (Also noted on prior ECHO) EF 55 to 60%. No pericardial effusion. -Continue aspirin, Plavix, atorvastatin Appreciate Neurology input Continue PT OT Fall precautions May need rehab placement Needs repeat MRI brain in 3 months as recommended by neurology. Counseled to quit smoking. Outpatient cardiac event monitor to be arranged to rule out arrhythmias. Pt will also need to follow up re: carotid artery stenosis (2) Hypertensive urgency: Plan: Hypertensive Urgency Continue amlodipine, hydralazine, lisinopril Labetalol as needed BP much improved, at goal mild Bradycardia HR <60 will decrease propranolol to BID from TID continue to closely monitor (3) Fall: (4) Rhabdomyolysis: Plan: Acute rhabdomyolysis CK >35,000>> 14,000>11,000 Now below 5000 Continue IV fluids Monitor CK levels (5) Elevated troponin: Plan: Mild troponin elevation in setting of rhabdomyolysis Patient denies chest pain Echo seems to be unchanged as above Troponin trended down (6) CAD (coronary artery disease): Plan: Continue aspirin, statin, plavix (7) DM type 2 (diabetes mellitus, type 2): Plan: HbA1c 5.7 Insulin sliding scale while hospitalized Monitor BGs (8) Carotid stenosis, bilateral: Plan: Continue aspirin, plavix, statin (9) Depression: Plan: Continue Fluvoxamine, Buspar, trazodone Tobacco use disorder Counseled to quit smoking DVT Px: SQ heparin Code status: FULL CODE Disposition PT/OT prior to discharge - plan to DC to [facility] Admission and Anticipated Discharge Date Admission Date: June 16, 2021 Subjective Patient is seen and examined at bedside Currently in no acute distress, previously was feeling anxious, felt like he was in the long-term Currently calm, no issues Denies chest pain, shortness breath, dizziness, nausea, abdominal pain CK level trending down Review of Systems Review of Systems: All systems reviewed & are unremarkable except as noted in Subjective Physical Exam Physical Exam: General Appearance:Moderately built and nourished, no apparent distress Head: normocephalic, Atraumatic Eyes: normal inspection, EOMI Neck: supple, Trachea midline Respiratory/Chest: Normal breath sounds, CTA, No accessory muscle use Cardiovascular: S1, S2, No murmur Abdomen/GI:Soft, Non tender, Bowel sounds present Extremities/Musculoskeletal:normal inspection, no edema Neurologic/Psych:AAOX3, Left UE weakness Skin: normal color, warm Results & Data Results & Data ([facility]) Vital Signs (Past 12 Hours) Vital Signs Temp Pulse Pulse Pulse Resp BP Pulse Ox 06/20/21 23:05 36.5 C 53 L 18 121/66 98 Laboratory Results 06/21/21 06/21/21 06/21/21 Range/Units 07:42 07:09 07:09 WBC 7.83 (4.8-10.8) K/uL RBC 5.14 (4.7-6.1) M/uL Hgb 15.4 (14.0-18.0) g/dL Hct 44.2 (42-52) % MCV 86.0 (80-100) fL MCH 30.0 (25-34) pg MCHC 34.8 (32-36) g/dL RDW Std Deviation 43.4 (36.4-46.3) fL RDW Coeff of Dione 14.1 (11.5-14.5) % Plt Count 139 (130-400) K/uL MPV 10.2 (7.4-10.4) fL Sodium 141 (136-145) mmol/L Potassium 4.7 (3.5-5.1) mmol/L Chloride 112 H (98-107) mmol/L Carbon Dioxide 28 (21-32) mmol/L Anion Gap 1.0 L (3-11) BUN 13 (7-18) mg/dl Creatinine 1.17 (0.6-1.4) mg/dl Est Cr Clr Drug Dosing 68.2 ml/min Est GFR ( Amer) 83.8 ml/min Est GFR (Non-Af Amer) 72.3 ml/min BUN/Creatinine Ratio 11.3 (10-20) Glucose 130 H (70-99) mg/dl POC Glucose 137 H (70-99) mg/dl Calcium 9.5 (8.5-10.1) mg/dl Phosphorus 2.7 (2.5-4.9) mg/dl Magnesium 2.2 (1.8-2.4) mg/dl Total Bilirubin 0.6 (0.2-1) mg/dl AST 133 H (15-37) U/L ALT 101 H (12-78) U/L Alkaline Phosphatase 72 (45-117) U/L Total Creatine Kinase 1795 H (39-308) U/L Total Protein 6.9 (6.4-8.2) gm/dl Albumin 3.4 (3.4-5.0) gm/dl Globulin 3.5 (2.5-4.0) gm/dl Albumin/Globulin Ratio 1.0 (0.9-2) 06/20/21 06/20/21 06/20/21 Range/Units 20:12 16:32 11:51 WBC (4.8-10.8) K/uL RBC (4.7-6.1) M/uL Hgb (14.0-18.0) g/dL Hct (42-52) % MCV (80-100) fL MCH (25-34) pg MCHC (32-36) g/dL RDW Std Deviation (36.4-46.3) fL RDW Coeff of Dione (11.5-14.5) % Plt Count (130-400) K/uL MPV (7.4-10.4) fL Sodium (136-145) mmol/L Potassium (3.5-5.1) mmol/L Chloride (98-107) mmol/L Carbon Dioxide (21-32) mmol/L Anion Gap (3-11) BUN (7-18) mg/dl Creatinine (0.6-1.4) mg/dl Est Cr Clr Drug Dosing ml/min Est GFR ( Amer) ml/min Est GFR (Non-Af Amer) ml/min BUN/Creatinine Ratio (10-20) Glucose (70-99) mg/dl POC Glucose 145 H 101 H 71 (70-99) mg/dl Calcium (8.5-10.1) mg/dl Phosphorus (2.5-4.9) mg/dl Magnesium (1.8-2.4) mg/dl Total Bilirubin (0.2-1) mg/dl AST (15-37) U/L ALT (12-78) U/L Alkaline Phosphatase (45-117) U/L Total Creatine Kinase (39-308) U/L Total Protein (6.4-8.2) gm/dl Albumin (3.4-5.0) gm/dl Globulin (2.5-4.0) gm/dl Albumin/Globulin Ratio (0.9-2) 06/20/21 Range/Units 11:50 WBC (4.8-10.8) K/uL RBC (4.7-6.1) M/uL Hgb (14.0-18.0) g/dL Hct (42-52) % MCV (80-100) fL MCH (25-34) pg MCHC (32-36) g/dL RDW Std Deviation (36.4-46.3) fL RDW Coeff of Dione (11.5-14.5) % Plt Count (130-400) K/uL MPV (7.4-10.4) fL Sodium (136-145) mmol/L Potassium (3.5-5.1) mmol/L Chloride (98-107) mmol/L Carbon Dioxide (21-32) mmol/L Anion Gap (3-11) BUN (7-18) mg/dl Creatinine (0.6-1.4) mg/dl Est Cr Clr Drug Dosing ml/min Est GFR ( Amer) ml/min Est GFR (Non-Af Amer) ml/min BUN/Creatinine Ratio (10-20) Glucose (70-99) mg/dl POC Glucose 67 L* (70-99) mg/dl Calcium (8.5-10.1) mg/dl Phosphorus (2.5-4.9) mg/dl Magnesium (1.8-2.4) mg/dl Total Bilirubin (0.2-1) mg/dl AST (15-37) U/L ALT (12-78) U/L Alkaline Phosphatase (45-117) U/L Total Creatine Kinase (39-308) U/L Total Protein (6.4-8.2) gm/dl Albumin (3.4-5.0) gm/dl Globulin (2.5-4.0) gm/dl Albumin/Globulin Ratio (0.9-2)
--- NOTE | 2021-06-21 09:31 | Hospitalist Progress Note ---
Date of Service June 21, 2021 Assessment & Plan (1) Stroke-like symptoms: Plan: Patient is a 50 yr male with H/O CAD s/p stent, right carotid endarterectomy, recent CVA, history of CVA with residual R hand weakness, depression, DM type II, current tobacco use and other medical problems listed below who presents with weakness and fall from home. Strokelike symptoms Subacute right Parietal lobe infarction -MRI Brain: Redemonstration of large infarcts involving right frontal and temporal lobe. Persistent focal area of restricted diffusion/ischemia within right parietal lobe which is unchanged since recent prior study performed on June 05, 2021. Questionable area of abnormal enhancement within right parietal lobe appears smaller then on June 15, 2020 exam and might represent sequela from recent reinfarction . -Recent Head/Neck CTA:There is no evidence of hemorrhage, mass effect, or acute territorial ischemia noting angiographic phase technique. The tiny infarct seen by MRI is not apparent on CT. There is mild narrowing of the cavernous carotid arteries secondary to calcified plaque. This is unchanged from previous. Otherwise unremarkable CT angiogram of the brain. There is approximately 65% focal stenosis at the origin of the left internal carotid artery. This is unchanged from previous. There is approximately 50% luminal narrowing at the origin of the right internal carotid artery secondary to soft plaque. This has significantly increased as compared to 08/20/2020. Emphysema and patchy airspace consolidation is seen in the upper lobes. Correlate clinically for evidence of pneumonia. -ECHO: Left ventricle is normal in size. Severe concentric LVH. Mild hypokinesis of the inferior and posterior jenkins the base with all other wall segments danielle normally. (Also noted on prior ECHO) EF 55 to 60%. No pericardial effusion. -Continue aspirin, Plavix, atorvastatin Appreciate Neurology input Continue PT OT Fall precautions May need rehab placement Needs repeat MRI brain in 3 months as recommended by neurology. Counseled to quit smoking. Outpatient cardiac event monitor to be arranged to rule out arrhythmias. Pt will also need to follow up re: carotid artery stenosis (2) Hypertensive urgency: Plan: Hypertensive Urgency Continue amlodipine, hydralazine, lisinopril Labetalol as needed BP much improved, at goal Decrease hydralazine to twice a day (down from TID) mild Bradycardia HR <60 will decrease propranolol to BID from TID continue to closely monitor (3) Fall: (4) Rhabdomyolysis: Plan: Acute rhabdomyolysis CK >35,000>> 14,000>11,000 >5,000 Now 1,800 Continue IV fluids Monitor CK levels (5) Elevated troponin: Plan: Mild troponin elevation in setting of rhabdomyolysis Patient denies chest pain Echo seems to be unchanged as above Troponin trended down (6) CAD (coronary artery disease): Plan: Continue aspirin, statin, plavix (7) DM type 2 (diabetes mellitus, type 2): Plan: HbA1c 5.7 Insulin sliding scale while hospitalized Monitor BGs (8) Carotid stenosis, bilateral: Plan: Continue aspirin, plavix, statin (9) Depression: Plan: Continue Fluvoxamine, Buspar, trazodone Tobacco use disorder Counseled to quit smoking DVT Px: SQ heparin Code status: FULL CODE Disposition PT/OT prior to discharge - plan to DC to [facility] vs. home w/ HH (awaiting to hear for [facility] authorization) Admission and Anticipated Discharge Date Admission Date: June 16, 2021 Subjective Patient is seen and examined at bedside Currently in no acute distress, previously was feeling anxious, felt like he was in the long term Currently calm, but still feels he has been here too long and is eager to be discharged Denies chest pain, shortness breath, dizziness, nausea, abdominal pain CK level trending down Review of Systems Review of Systems: All systems reviewed & are unremarkable except as noted in Subjective Physical Exam Physical Exam: General Appearance:Moderately built and nourished, no apparent distress Head: normocephalic, Atraumatic Eyes: normal inspection, EOMI Neck: supple, Trachea midline Respiratory/Chest: Normal breath sounds, CTA, No accessory muscle use Cardiovascular: S1, S2, No murmur Abdomen/GI:Soft, Non tender, Bowel sounds present Extremities/Musculoskeletal:normal inspection, no edema Neurologic/Psych:AAOX3, Left UE weakness Skin: normal color, warm Results & Data Results & Data ([facility]) Vital Signs (Past 12 Hours) Vital Signs Temp Pulse Pulse Pulse Resp BP Pulse Ox 06/21/21 07:52 36.8 C 60 63 17 124/82 98 06/20/21 23:05 36.5 C 53 L 18 121/66 98 Laboratory Results 06/21/21 06/21/21 06/21/21 Range/Units 07:42 07:09 07:09 WBC 7.83 (4.8-10.8) K/uL RBC 5.14 (4.7-6.1) M/uL Hgb 15.4 (14.0-18.0) g/dL Hct 44.2 (42-52) % MCV 86.0 (80-100) fL MCH 30.0 (25-34) pg MCHC 34.8 (32-36) g/dL RDW Std Deviation 43.4 (36.4-46.3) fL RDW Coeff of Dione 14.1 (11.5-14.5) % Plt Count 139 (130-400) K/uL MPV 10.2 (7.4-10.4) fL Sodium 141 (136-145) mmol/L Potassium 4.7 (3.5-5.1) mmol/L Chloride 112 H (98-107) mmol/L Carbon Dioxide 28 (21-32) mmol/L Anion Gap 1.0 L (3-11) BUN 13 (7-18) mg/dl Creatinine 1.17 (0.6-1.4) mg/dl Est Cr Clr Drug Dosing 68.2 ml/min Est GFR ( Amer) 83.8 ml/min Est GFR (Non-Af Amer) 72.3 ml/min BUN/Creatinine Ratio 11.3 (10-20) Glucose 130 H (70-99) mg/dl POC Glucose 137 H (70-99) mg/dl Calcium 9.5 (8.5-10.1) mg/dl Phosphorus 2.7 (2.5-4.9) mg/dl Magnesium 2.2 (1.8-2.4) mg/dl Total Bilirubin 0.6 (0.2-1) mg/dl AST 133 H (15-37) U/L ALT 101 H (12-78) U/L Alkaline Phosphatase 72 (45-117) U/L Total Creatine Kinase 1795 H (39-308) U/L Total Protein 6.9 (6.4-8.2) gm/dl Albumin 3.4 (3.4-5.0) gm/dl Globulin 3.5 (2.5-4.0) gm/dl Albumin/Globulin Ratio 1.0 (0.9-2) 06/20/21 06/20/21 06/20/21 Range/Units 20:12 16:32 11:51 WBC (4.8-10.8) K/uL RBC (4.7-6.1) M/uL Hgb (14.0-18.0) g/dL Hct (42-52) % MCV (80-100) fL MCH (25-34) pg MCHC (32-36) g/dL RDW Std Deviation (36.4-46.3) fL RDW Coeff of Dione (11.5-14.5) % Plt Count (130-400) K/uL MPV (7.4-10.4) fL Sodium (136-145) mmol/L Potassium (3.5-5.1) mmol/L Chloride (98-107) mmol/L Carbon Dioxide (21-32) mmol/L Anion Gap (3-11) BUN (7-18) mg/dl Creatinine (0.6-1.4) mg/dl Est Cr Clr Drug Dosing ml/min Est GFR ( Amer) ml/min Est GFR (Non-Af Amer) ml/min BUN/Creatinine Ratio (10-20) Glucose (70-99) mg/dl POC Glucose 145 H 101 H 71 (70-99) mg/dl Calcium (8.5-10.1) mg/dl Phosphorus (2.5-4.9) mg/dl Magnesium (1.8-2.4) mg/dl Total Bilirubin (0.2-1) mg/dl AST (15-37) U/L ALT (12-78) U/L Alkaline Phosphatase (45-117) U/L Total Creatine Kinase (39-308) U/L Total Protein (6.4-8.2) gm/dl Albumin (3.4-5.0) gm/dl Globulin (2.5-4.0) gm/dl Albumin/Globulin Ratio (0.9-2) 06/20/21 Range/Units 11:50 WBC (4.8-10.8) K/uL RBC (4.7-6.1) M/uL Hgb (14.0-18.0) g/dL Hct (42-52) % MCV (80-100) fL MCH (25-34) pg MCHC (32-36) g/dL RDW Std Deviation (36.4-46.3) fL RDW Coeff of Dione (11.5-14.5) % Plt Count (130-400) K/uL MPV (7.4-10.4) fL Sodium (136-145) mmol/L Potassium (3.5-5.1) mmol/L Chloride (98-107) mmol/L Carbon Dioxide (21-32) mmol/L Anion Gap (3-11) BUN (7-18) mg/dl Creatinine (0.6-1.4) mg/dl Est Cr Clr Drug Dosing ml/min Est GFR ( Amer) ml/min Est GFR (Non-Af Amer) ml/min BUN/Creatinine Ratio (10-20) Glucose (70-99) mg/dl POC Glucose 67 L* (70-99) mg/dl Calcium (8.5-10.1) mg/dl Phosphorus (2.5-4.9) mg/dl Magnesium (1.8-2.4) mg/dl Total Bilirubin (0.2-1) mg/dl AST (15-37) U/L ALT (12-78) U/L Alkaline Phosphatase (45-117) U/L Total Creatine Kinase (39-308) U/L Total Protein (6.4-8.2) gm/dl Albumin (3.4-5.0) gm/dl Globulin (2.5-4.0) gm/dl Albumin/Globulin Ratio (0.9-2) Medications Administered Current Inpatient Medications Acetaminophen (Acetaminophen 325 Mg Tab) 650 mg PO Q4H PRN PRN Reason: Pain or Fever Stop: 07/16/21 20:13 Last Admin: 06/21/21 07:38 Dose: 650 mg Documented by: Amlodipine Besylate (Amlodipine Besylate 5 Mg Tab) 10 mg PO DAILY [facility] Stop: 07/17/21 08:59 Last Admin: 06/20/21 09:00 Dose: 10 mg Documented by: Aspirin (Aspirin 81 Mg Ectab) [facility] [place] [facility] [place] Stop: 07/17/21 08:59 Last Admin: 06/20/21 09:03 Dose: 81 mg Documented by: Atorvastatin Calcium (Atorvastatin 40 Mg Tab) [facility] [place] [facility] [place] Stop: 07/17/21 08:59 Last Admin: 06/20/21 09:03 Dose: 40 mg Documented by: Buspirone HCl (Buspirone 5 Mg Tab) 5 mg PO TID YADIRA Stop: 07/16/21 21:19 Last Admin: 06/20/21 20:22 Dose: 5 mg Documented by: Clopidogrel Bisulfate (Clopidogrel Bisulfate 75 Mg Tab) 75 mg PO DAILY YADIR[facility] Stop: 07/17/21 08:59 Last Admin: 06/20/21 09:04 Dose: 75 mg Documented by: Cyanocobalamin (Cyanocobalamin 500 Mcg Tablet (Vitamin B-12)) 1,000 mcg PO QAM YADIRA Stop: 07/19/21 08:59 Last Admin: 06/20/21 09:03 Dose: 1,000 mcg Documented by: Dextrose (Dextrose 50% 50 Ml Syringe) 25 - 50 ml IV UD PRN; Protocol PRN Reason: Hypoglycemia Protocol Stop: 07/16/21 20:13 Fluvoxamine Maleate (Fluvoxamine Maleate 50 Mg Tab) 100 mg PO BID YADIRA Stop: 07/16/21 21:29 Last Admin: 06/20/21 20:24 Dose: 100 mg Documented by: Glucagon (Glucagon For Inj 1 Mg Vial) 1 mg SQ UD PRN; Protocol PRN Reason: Hypoglycemia Protocol Stop: 07/16/21 20:13 Glucose (Glucose 10 Tabs/Tube) 4 - 8 tabs PO UD PRN; Protocol PRN Reason: Hypoglycemia Protocol Stop: 07/16/21 20:13 Glucose (Glucose 40% Gel 15 Gm Tube) 15 - 30 gm PO UD PRN; Protocol PRN Reason: Hypoglycemia Protocol Stop: 07/16/21 20:13 Heparin Sodium (Porcine) (Heparin Sod 5,000 Unit/0.5 Ml Vial) 5,000 units SQ Q8 YADIRA Stop: 07/16/21 21:59 Last Admin: 06/21/21 06:14 Dose: Not Given Documented by: Hydralazine HCl (Hydralazine Hcl 25 Mg Tab) 25 mg PO BID YDAIRA Stop: 07/21/21 08:59 Potassium Chloride/Sodium Chloride (Normal Saline W/20 Meq Kcl) 20 meq in 1,000 mls @ 150 mls/hr IV .Q6H40M YADIRA Stop: 07/16/21 20:59 Last Admin: 06/21/21 02:43 Dose: 150 mls/hr Documented by: Insulin Aspart (Insulin Aspart 100 Units/Ml 3 Ml Pen) 0 units SC ACHS YADIRA Stop: 07/16/21 20:59 Last Admin: 06/20/21 20:27 Dose: Not Given Documented by: Lisinopril (Lisinopril 10 Mg Tab) 30 mg PO DAILY Y[facility] Stop: 07/17/21 08:59 Last Admin: 06/20/21 09:04 Dose: 30 mg Documented by: Lorazepam (Lorazepam 1 Mg Tab) 1 mg PO Q8H PRN PRN Reason: anxiety Stop: 07/16/21 21:14 Miscellaneous (Carbohydrates For Hypoglycemia ) 15 - 30 gm PO UD PRN PRN Reason: Hypoglycemia Protocol Stop: 07/16/21 20:13 Multivitamins/Minerals (Cerovite Adv Formula Tab) 1 tab PO QAM [facility] Stop: 07/19/21 08:59 Last Admin: 06/20/21 09:01 Dose: 1 tab Documented by: Nicotine Polacrilex (Nicotine Polacrilex 2 Mg Gum) 1 piece MT PRN PRN PRN Reason: Undecided Stop: 07/17/21 15:52 Last Admin: 06/20/21 20:20 Dose: 1 piece Documented by: Pantoprazole Sodium (Pantoprazole 40 Mg Tab) 40 mg PO DAILYBB [facility] Stop: 07/17/21 06:29 Last Admin: 06/21/21 06:14 Dose: 40 mg Documented by: Polyethylene Glycol (Polyethylene (Miralax) 17 Gm Pack) 17 gm PO DAILY PRN PRN Reason: Constipation Stop: 07/16/21 20:13 Propranolol HCl (Propranolol Hcl 10 Mg Tab) 10 mg PO BID YADIRA Stop: 07/21/21 08:59 Thiamine HCl (Thiamine Hcl 100 Mg Tab) 100 mg PO QAM YADIR[facility] Stop: 07/19/21 08:59 Last Admin: 06/20/21 09:00 Dose: 100 mg Documented by: Trazodone HCl (Trazodone Hcl 100 Mg Tab) 100 mg PO HS [facility] Stop: 07/17/21 20:59 Last Admin: 06/20/21 20:22 Dose: 100 mg Documented by:
[2021-06-21] MEDS: fluvoxaMINE MALEATE 50 MG TAB PO SCH ×2 (09:35→20:03)
[2021-06-21] MEDS: ASPIRIN 81 MG ECTAB PO SCH (09:35)
[2021-06-21] MEDS: busPIRone 5 MG TAB PO SCH ×3 (09:36→20:03)
[2021-06-21] MEDS: hydrALAZINE HCL 25 MG TAB PO SCH ×2 (09:36→20:03)
[2021-06-21] MEDS: ATORVASTATIN 40 MG TAB PO SCH (09:36)
[2021-06-21] MEDS: THIAMINE HCL 100 MG TAB PO SCH (09:37)
[2021-06-21] MEDS: amLODIPine BESYLATE 5 MG TAB PO SCH (09:37)
[2021-06-21] MEDS: CYANOCOBALAMIN 500 MCG TABLET (VITAMIN B-12) PO SCH (09:37)
[2021-06-21] MEDS: lisinopril 10 MG TAB PO SCH (09:37)
[2021-06-21] MEDS: CEROVITE ADV FORMULA TAB PO SCH (09:38)
[2021-06-21] MEDS: CLOPIDOGREL BISULFATE 75 MG TAB PO SCH (09:38)
[2021-06-21] MEDS: INSULIN ASPART 100 UNITS/ML 3 ML PEN SC SCH ×4 (09:41→19:58)
[2021-06-21] MEDS: PROPRANOLOL HCL 10 MG TAB PO SCH ×2 (09:46→20:03)
[2021-06-21] MEDS: NICOTINE POLACRILEX 2 MG GUM MT PRN ×2 (09:47→14:32)
[2021-06-21] MEDS: LACTATED RINGER'S 1,000 ML IV SCH (16:00)
[2021-06-21] MEDS ORDERED: Nursing to Pharmacy Communication SCH (17:30)
[2021-06-21] MEDS: traZODone HCL 100 MG TAB PO SCH (20:03)
[2021-06-22] MEDS: LACTATED RINGER'S 1,000 ML IV SCH ×2 (03:45→13:51)
[2021-06-22] MEDS: HEPARIN SOD 5,000 UNIT/0.5 ML VIAL SQ SCH ×2 (06:04→12:59)
[2021-06-22] MEDS: PANTOprazole 40 MG TAB PO SCH (06:04)
[2021-06-22 07:03] LABS: BUN Creatinine Ratio 12.7 (10-20); Calcium 9.5 mg/dl (8.5-10.1); Creatinine Clr Calc Pharmacy 63.8 ml/min; Est GFR (African American) 77.3 ml/min; Est GFR (Non-African American) 66.7 ml/min; Magnesium 2.2 mg/dl (1.8-2.4); Potassium 4.4 mmol/L (3.5-5.1)
[2021-06-22 07:07] LABS: Phosphorus 3.4 mg/dl (2.5-4.9)
[2021-06-22] MEDS: INSULIN ASPART 100 UNITS/ML 3 ML PEN SC SCH ×2 (08:38→12:55)
[2021-06-22] MEDS: THIAMINE HCL 100 MG TAB PO SCH (08:40)
[2021-06-22] MEDS: NICOTINE POLACRILEX 2 MG GUM MT PRN ×2 (08:41→12:55)
[2021-06-22] MEDS: PROPRANOLOL HCL 10 MG TAB PO SCH (08:41)
[2021-06-22] MEDS: hydrALAZINE HCL 25 MG TAB PO SCH (08:42)
[2021-06-22] MEDS: ASPIRIN 81 MG ECTAB PO SCH (08:42)
[2021-06-22] MEDS: CLOPIDOGREL BISULFATE 75 MG TAB PO SCH (08:42)
[2021-06-22] MEDS: fluvoxaMINE MALEATE 50 MG TAB PO SCH (08:42)
[2021-06-22] MEDS: ATORVASTATIN 40 MG TAB PO SCH (08:42)
[2021-06-22] MEDS: amLODIPine BESYLATE 5 MG TAB PO SCH (08:42)
[2021-06-22] MEDS: CEROVITE ADV FORMULA TAB PO SCH (08:42)
[2021-06-22] MEDS: CYANOCOBALAMIN 500 MCG TABLET (VITAMIN B-12) PO SCH (08:43)
[2021-06-22] MEDS: busPIRone 5 MG TAB PO SCH ×2 (08:43→13:00)
[2021-06-22] MEDS: lisinopril 10 MG TAB PO SCH (08:43)
--- NOTE | 2021-06-22 09:44 | Hospitalist Progress Note ---
Date of Service June 22, 2021 Assessment & Plan (1) Stroke-like symptoms: Plan: Patient is a 50 yr male with H/O CAD s/p stent, right carotid endarterectomy, recent CVA, history of CVA with residual R hand weakness, depression, DM type II, current tobacco use and other medical problems listed below who presents with weakness and fall from home. Strokelike symptoms Subacute right Parietal lobe infarction -MRI Brain: Redemonstration of large infarcts involving right frontal and temporal lobe. Persistent focal area of restricted diffusion/ischemia within right parietal lobe which is unchanged since recent prior study performed on June 05, 2021. Questionable area of abnormal enhancement within right parietal lobe appears smaller then on June 15, 2020 exam and might represent sequela from recent reinfarction . -Recent Head/Neck CTA:There is no evidence of hemorrhage, mass effect, or acute territorial ischemia noting angiographic phase technique. The tiny infarct seen by MRI is not apparent on CT. There is mild narrowing of the cavernous carotid arteries secondary to calcified plaque. This is unchanged from previous. Otherwise unremarkable CT angiogram of the brain. There is approximately 65% focal stenosis at the origin of the left internal carotid artery. This is unchanged from previous. There is approximately 50% luminal narrowing at the origin of the right internal carotid artery secondary to soft plaque. This has significantly increased as compared to 08/20/2020. Emphysema and patchy airspace consolidation is seen in the upper lobes. Correlate clinically for evidence of pneumonia. -ECHO: Left ventricle is normal in size. Severe concentric LVH. Mild hypokinesis of the inferior and posterior jenkins the base with all other wall segments danielle normally. (Also noted on prior ECHO) EF 55 to 60%. No pericardial effusion. -Continue aspirin, Plavix, atorvastatin Appreciate Neurology input Continue PT OT Fall precautions May need rehab placement Needs repeat MRI brain in 3 months as recommended by neurology. Counseled to quit smoking. Outpatient cardiac event monitor to be arranged to rule out arrhythmias. Pt will also need to follow up re: carotid artery stenosis (2) Hypertensive urgency: Plan: Hypertensive Urgency Continue amlodipine, hydralazine, lisinopril Labetalol as needed BP much improved, at goal Decrease hydralazine to twice a day (down from TID) mild Bradycardia HR <60 decreased propranolol to BID from TID continue to closely monitor (3) Fall: (4) Rhabdomyolysis: Plan: Acute rhabdomyolysis CK >35,000>> 14,000>11,000 >5,000 > 1,800 Now ~ 800 Can stop IV fluids Encourage oral fluid intake (5) Elevated troponin: Plan: Mild troponin elevation in setting of rhabdomyolysis Patient denies chest pain Echo seems to be unchanged as above Troponin trended down (6) CAD (coronary artery disease): Plan: Continue aspirin, statin, plavix (7) DM type 2 (diabetes mellitus, type 2): Plan: HbA1c 5.7 Insulin sliding scale while hospitalized Monitor BGs (8) Carotid stenosis, bilateral: Plan: Continue aspirin, plavix, statin (9) Depression: Plan: Continue Fluvoxamine, Buspar, trazodone Tobacco use disorder Counseled to quit smoking DVT Px: SQ heparin Code status: FULL CODE Disposition PT/OT prior to discharge - plan to DC to [facility] today Admission and Anticipated Discharge Date Admission Date: June 16, 2021 Subjective Patient is seen and examined at bedside Currently in no acute distress Denies chest pain, shortness breath, dizziness, nausea, abdominal pain CK level trending down almost normalized Review of Systems Review of Systems: All systems reviewed & are unremarkable except as noted in Subjective Physical Exam Physical Exam: General Appearance:Moderately built and nourished, no apparent distress Head: normocephalic, Atraumatic Eyes: normal inspection, EOMI Neck: supple, Trachea midline Respiratory/Chest: Normal breath sounds, CTA, No accessory muscle use Cardiovascular: S1, S2, No murmur Abdomen/GI:Soft, Non tender, Bowel sounds present Extremities/Musculoskeletal:normal inspection, no edema Neurologic/Psych:AAOX3, Left UE weakness , but moves extremities overall Skin: normal color, warm Results & Data Results & Data ([facility]) Vital Signs (Past 12 Hours) Vital Signs Temp Pulse Resp BP BP Pulse Ox 06/22/21 07:29 36.8 C 56 L 18 159/78 H 94 06/21/21 21:58 36.8 C 57 L 18 119/72 97 Laboratory Results 06/22/21 06/22/21 06/21/21 Range/Units 07:54 05:58 19:50 Sodium 140 (136-145) mmol/L Potassium 4.4 (3.5-5.1) mmol/L Chloride 109 H (98-107) mmol/L Carbon Dioxide 28 (21-32) mmol/L Anion Gap 3.0 (3-11) BUN 16 (7-18) mg/dl Creatinine 1.25 (0.6-1.4) mg/dl Est Cr Clr Drug Dosing 63.8 ml/min Est GFR ( Amer) 77.3 ml/min Est GFR (Non-Af Amer) 66.7 ml/min BUN/Creatinine Ratio 12.7 (10-20) Glucose 118 H (70-99) mg/dl POC Glucose 124 H 130 H (70-99) mg/dl Calcium 9.5 (8.5-10.1) mg/dl Phosphorus 3.4 (2.5-4.9) mg/dl Magnesium 2.2 (1.8-2.4) mg/dl Total Creatine Kinase 847 H (39-308) U/L 06/21/21 06/21/21 Range/Units 16:39 11:47 Sodium (136-145) mmol/L Potassium (3.5-5.1) mmol/L Chloride (98-107) mmol/L Carbon Dioxide (21-32) mmol/L Anion Gap (3-11) BUN (7-18) mg/dl Creatinine (0.6-1.4) mg/dl Est Cr Clr Drug Dosing ml/min Est GFR ( Amer) ml/min Est GFR (Non-Af Amer) ml/min BUN/Creatinine Ratio (10-20) Glucose (70-99) mg/dl POC Glucose 120 H 98 (70-99) mg/dl Calcium (8.5-10.1) mg/dl Phosphorus (2.5-4.9) mg/dl Magnesium (1.8-2.4) mg/dl Total Creatine Kinase (39-308) U/L Medications Administered Current Inpatient Medications Acetaminophen (Acetaminophen 325 Mg Tab) 650 mg PO Q4H PRN PRN Reason: Pain or Fever Stop: 07/16/21 20:13 Last Admin: 06/21/21 07:38 Dose: 650 mg Documented by: Amlodipine Besylate (Amlodipine Besylate 5 Mg Tab) 10 mg PO DAILY [facility] Stop: 07/17/21 08:59 Last Admin: 06/22/21 08:42 Dose: 10 mg Documented by: Aspirin (Aspirin 81 Mg Ectab) [facility] [place] [place] Stop: 07/17/21 08:59 Last Admin: 06/22/21 08:42 Dose: 81 mg Documented by: Atorvastatin Calcium (Atorvastatin 40 Mg Tab) 40 mg PO QAM YADIRA Stop: 07/17/21 08:59 Last Admin: 06/22/21 08:42 Dose: 40 mg Documented by: Buspirone HCl (Buspirone 5 Mg Tab) 5 mg PO TID YADIRA Stop: 07/16/21 21:19 Last Admin: 06/22/21 08:43 Dose: 5 mg Documented by: Clopidogrel Bisulfate (Clopidogrel Bisulfate 75 Mg Tab) 75 mg PO DAILY YAD[facility] Stop: 07/17/21 08:59 Last Admin: 06/22/21 08:42 Dose: 75 mg Documented by: Cyanocobalamin (Cyanocobalamin 500 Mcg Tablet (Vitamin B-12)) 1,000 mcg PO QAM YADIRA Stop: 07/19/21 08:59 Last Admin: 06/22/21 08:43 Dose: 1,000 mcg Documented by: Dextrose (Dextrose 50% 50 Ml Syringe) 25 - 50 ml IV UD PRN; Protocol PRN Reason: Hypoglycemia Protocol Stop: 07/16/21 20:13 Fluvoxamine Maleate (Fluvoxamine Maleate 50 Mg Tab) 100 mg PO BID YADIRA Stop: 07/16/21 21:29 Last Admin: 06/22/21 08:42 Dose: 100 mg Documented by: Glucagon (Glucagon For Inj 1 Mg Vial) 1 mg SQ UD PRN; Protocol PRN Reason: Hypoglycemia Protocol Stop: 07/16/21 20:13 Glucose (Glucose 10 Tabs/Tube) 4 - 8 tabs PO UD PRN; Protocol PRN Reason: Hypoglycemia Protocol Stop: 07/16/21 20:13 Glucose (Glucose 40% Gel 15 Gm Tube) 15 - 30 gm PO UD PRN; Protocol PRN Reason: Hypoglycemia Protocol Stop: 07/16/21 20:13 Heparin Sodium (Porcine) (Heparin Sod 5,000 Unit/0.5 Ml Vial) 5,000 units SQ Q8 YADIRA Stop: 07/16/21 21:59 Last Admin: 06/22/21 06:04 Dose: Not Given Documented by: Hydralazine HCl (Hydralazine Hcl 25 Mg Tab) 25 mg PO BID YADIR[facility] Stop: 07/21/21 08:59 Last Admin: 06/22/21 08:42 Dose: 25 mg Documented by: Lactated Ringer's (Lr) 1,000 mls @ 100 mls/hr IV .Q10H [facility] Stop: 07/21/21 17:44 Last Admin: 06/22/21 03:45 Dose: 100 mls/hr Documented by: Insulin Aspart (Insulin Aspart 100 Units/Ml 3 Ml Pen) 0 units SC ACHS [facility] Stop: 07/16/21 20:59 Last Admin: 06/22/21 08:38 Dose: 3 units Documented by: Lisinopril (Lisinopril 10 Mg Tab) 30 mg PO DAILY [facility] Stop: 07/17/21 08:59 Last Admin: 06/22/21 08:43 Dose: 30 mg Documented by: Lorazepam (Lorazepam 1 Mg Tab) 1 mg PO Q8H PRN PRN Reason: anxiety Stop: 07/16/21 21:14 Miscellaneous (Carbohydrates For Hypoglycemia ) 15 - 30 gm PO UD PRN PRN Reason: Hypoglycemia Protocol Stop: 07/16/21 20:13 Multivitamins/Minerals (Cerovite Adv Formula Tab) [facility] [place] [place] Stop: 07/19/21 08:59 Last Admin: 06/22/21 08:42 Dose: 1 tab Documented by: Nicotine Polacrilex (Nicotine Polacrilex 2 Mg Gum) 1 piece MT PRN PRN PRN Reason: Undecided Stop: 07/17/21 15:52 Last Admin: 06/22/21 08:41 Dose: 1 piece Documented by: Pantoprazole Sodium (Pantoprazole 40 Mg Tab) 40 mg PO DAILYBB [facility] Stop: 07/17/21 06:29 Last Admin: 06/22/21 06:04 Dose: 40 mg Documented by: Polyethylene Glycol (Polyethylene (Miralax) 17 Gm Pack) 17 gm PO DAILY PRN PRN Reason: Constipation Stop: 07/16/21 20:13 Propranolol HCl (Propranolol Hcl 10 Mg Tab) 10 mg PO BID [facility] Stop: 07/21/21 08:59 Last Admin: 06/22/21 08:41 Dose: 10 mg Documented by: Thiamine HCl (Thiamine Hcl 100 Mg Tab) 100 mg PO QAM [facility] Stop: 07/19/21 08:59 Last Admin: 06/22/21 08:40 Dose: 100 mg Documented by: Trazodone HCl (Trazodone Hcl 100 Mg Tab) 100 mg PO [facility] Stop: 07/17/21 20:59 Last Admin: 06/21/21 20:03 Dose: 100 mg Documented by:
--- NOTE | 2021-06-22 11:10 | Discharge Summary ---
Date of Service June 22, 2021 Admission HPI Per Admitting Provider This is a 50yo M with a PMH of CAD s/p stent, right carotid endarterectomy, recent CVA, history of CVA with residual R hand weakness, depression, DM type II, current tobacco use and other medical problems listed below who presents with weakness and fall from home. Was ambulating to the restroom around midnight and L knee gave out, followed by other leg. Struck the back of his head but denies LOC. Remained on the ground overnight and was too weak to get up. Called EMS this morning and was brought to ER. Denies difficulty with speaking or swallowing. No focal weakness. Patient lives alone and has a cane for ambula tion. Endorsing recent psychiatric medication adjustment. Recent admission from 06/06- for medication overdose on oxycodone in setting of ongoing complex psychiatric issues. Patient states he is no longer taking oxycodone. Also diagnosed with acute/subacute stroke on MRI brain with 8 mm focus of restricted water diffusion in the right parietal lobe. This is located in the region of the prior infarct. Was evaluated by neurology- thought to have questionable compliance with plavix and aspirin. Atorvastatin dose increased to 40mg daily. Patient currently endorsing generalized weakness and lightheadedness. Denies fever, chills, headache, pain, shortness of breath, nausea, vomiting, abdominal pain, dysuria. Admission Exam Per Admitting Provider General Appearance: WD/WN, vitals as above, NAD, sitting up in bed, pleasant, poorly groomed Head: normocephalic, atraumatic Eyes: normal inspection, PERRL, conjunctivae normal, anicteric sclerae ENT: external ear and nose normal, oropharynx normal Neck: normal visual inspection, trachea midline, no thyromegaly Respiratory: normal respiratory effort, lungs clear to auscultation, no wheeze, rales, rhonchi. No accessory muscle use Cardiovascular: regular rate, rhythm, no murmur, normal peripheral pulses, no BLE edema. Vessels: no JVD Chest: normal inspection of chest Abdomen/GI: normal bowel sounds, soft, nontender, no hepatosplenomegaly Extremities/Musculoskeletal: no cyanosis or clubbing, LUE weakness (chronic), otherwise extremities motor strength 5/5 Neurologic: PERRL, EOMI, accommodation nl, no face palsy, no dysarthria, CN's II-XI intact bilaterally and moves all extremities Psychiatric: A+Ox3, euthymic affect Skin: no rashes, normal color, warm/dry Principal Diagnosis Fall at home Strokelike symptoms Rhabdomyolysis Elevated troponin Hypertensive urgency Discharge Exam General Appearance:Moderately built and nourished, no apparent distress Head: normocephalic, Atraumatic Eyes: normal inspection, EOMI Neck: supple, Trachea midline Respiratory/Chest: Normal breath sounds, CTA, No accessory muscle use Cardiovascular: S1, S2, No murmur Abdomen/GI:Soft, Non tender, Bowel sounds present Extremities/Musculoskeletal:normal inspection, no edema Neurologic/Psych:AAOX3, Left UE weakness , but moves extremities overall Skin: normal color, warm Discharge Data Allergies Allergy/AdvReac Type Severity Reaction Status Date / Time No Known Allergies Allergy Verified 06/16/21 15:56 Consultations 06/16/21 17:14 ED Decision to Admit Stat 06/16/21 20:14 Consult Neurology Routine Ordered Studies 06/16/21 16:11 CT head/brain wo con Stat IMPRESSION: 1. No acute intracranial abnormality. 2. Chronic findings as above. 06/16/21 18:47 MR brain wo/w con Routine IMPRESSION: 1. Redemonstration of large infarcts involving right frontal and temporal lobe. Persistent focal area of restricted diffusion/ischemia within right parietal lobe which is unchanged since recent prior study performed on June 05, 2021. 2. Questionable area of abnormal enhancement within right parietal lobe appears smaller then on June 15, 2020 exam and might represent sequela from recent reinfarction . 06/16/21 20:14 US liver Urgent IMPRESSION: 1. Mild intra and extra hepatic biliary ductal dilatation. This could be correlated with obstructive liver function tests. Slight dilatation of the main pancreatic duct. Partially obscured pancreas. 2. No gallstones. 3. Mild heterogeneous liver with increased echogenicity which may reflect mild hepatic steatosis. Hospital Course (1) Stroke-like symptoms: Patient is a 50 yr male with H/O CAD s/p stent, right carotid endarterectomy, recent CVA, history of CVA with residual R hand weakness, depression, DM type II, current tobacco use and other medical problems listed below who presents with weakness and fall from home. Strokelike symptoms Subacute right Parietal lobe infarction -MRI Brain: Redemonstration of large infarcts involving right frontal and temporal lobe. Persistent focal area of restricted diffusion/ischemia within right parietal lobe which is unchanged since recent prior study performed on June 05, 2021. Questionable area of abnormal enhancement within right parietal lobe appears smaller then on June 15, 2020 exam and might represent sequela from recent reinfarction . -Recent Head/Neck CTA:There is no evidence of hemorrhage, mass effect, or acute territorial ischemia noting angiographic phase technique. The tiny infarct seen by MRI is not apparent on CT. There is mild narrowing of the cavernous carotid arteries secondary to calcified plaque. This is unchanged from previous. Otherwise unremarkable CT angiogram of the brain. There is approximately 65% focal stenosis at the origin of the left internal carotid artery. This is unchanged from previous. There is approximately 50% luminal narrowing at the origin of the right internal carotid artery secondary to soft plaque. This has significantly increased as compared to 08/20/2020. Emphysema and patchy airspace consolidation is seen in the upper lobes. Correlate clinically for evidence of pneumonia. -ECHO: Left ventricle is normal in size. Severe concentric LVH. Mild hypokinesis of the inferior and posterior jenkins the base with all other wall segments danielle normally. (Also noted on prior ECHO) EF 55 to 60%. No pericardial effusion. -Continue aspirin, Plavix, atorvastatin Appreciate Neurology input Continue PT OT Fall precautions May need rehab placement Needs repeat MRI brain in 3 months as recommended by neurology. Counseled to quit smoking. Outpatient cardiac event monitor to be arranged to rule out arrhythmias. Pt will also need to follow up re: carotid artery stenosis (2) Hypertensive urgency: Hypertensive Urgency Continue amlodipine, hydralazine, lisinopril Labetalol as needed BP much improved, at goal Decrease hydralazine to twice a day (down from TID) mild Bradycardia HR <60 decreased propranolol to BID from TID continue to closely monitor (3) Fall: (4) Rhabdomyolysis: Acute rhabdomyolysis CK >35,000>> 14,000>11,000 >5,000 > 1,800 Now ~ 800 Can stop IV fluids Encourage oral fluid intake (5) Elevated troponin: Mild troponin elevation in setting of rhabdomyolysis Patient denies chest pain Echo seems to be unchanged as above Troponin trended down Elevated LFTs likely secondary to rhabdomyolysis/Hepatic Steatosis LFTs trending down Denies abd pain Consider GI eval if needed, follow up as outpt (6) CAD (coronary artery disease): Continue aspirin, statin, plavix (7) DM type 2 (diabetes mellitus, type 2): HbA1c 5.7 Insulin sliding scale while hospitalized Monitor BGs (8) Carotid stenosis, bilateral: Continue aspirin, plavix, statin (9) Depression: Continue Fluvoxamine, Buspar, trazodone Tobacco use disorder Counseled to quit smoking DVT Px: SQ heparin Code status: FULL CODE Disposition PT/OT prior to discharge - plan to DC to [facility] today Total Time Total Time Spent Total Time Spent (In Minutes): 40 Discharge Plan Discharge Items Patient Disposition: Transfer Inpatient Rehab Fac Reason For Visit: STROKE LIKE SX, FALL, TROP ELEVATION Discharge Diagnosis: Fall at home Strokelike symptoms Rhabdomyolysis Elevated troponin Hypertensive urgency Activity: Per Instructions section Non-emergency contact: Primary Care Provider Call non-emergency contact if: you have any medication questions and your symptoms worsen Follow-up/Referrals: Pedro Pablo Gaspar MD [Primary Care Provider] - Diet: Carb Consistent or DM2 and Heart Healthy Addtl Attending Provider Instructions: After leaving from rehab ([facility]), you should see your primary care doctor within 1 week and go over your current medications. I would recommend that somebody would help you with your medications at home/ organizing your daily medications. Make sure to continue taking aspirin, Plavix, atorvastatin. You will need to follow-up with neurology, and repeat MRI of your brain in about 3 months. You will also need to have alarm security or surveillance monitor study done as outpatient. You will need to follow-up for your carotid artery stenosis, your primary care doctor will arrange this for you. For your blood pressure, your hydralazine was decreased to twice a day dose. Also for your heart rate, your propranolol was decreased to twice a day dose. It is recommended that you continue drinking plenty of fluids. Also recommend taking multivitamin, vitamin B1(thiamine) and vitamin B12. It is recommended that you monitor your blood pressure at home if able, and record these numbers. Discuss these numbers with your primary care physician. Pending Studies at Discharge: No Stand-Alone Forms: My [employer] Skilled Items Patient informed of condition?: Yes DNR: No Discharge Level of Care: Acute rehab Communicable Disease: No Discharge Prognosis: Stable Lines: None Urinary Catheter: No Medications and DC Order Prescriptions: New cyanocobalamin (vitamin B-12) 500 mcg Tablet 1,000 mcg PO QAM Qty: 30 RF: 0 thiamine HCl (vitamin B1) [Vitamin B-1] 100 mg Tablet 100 mg PO QAM Qty: 30 RF: 0 Certavite-Antioxidant 18-400 mg-mcg Tablet 1 tab PO QAM Qty: 30 RF: 0 Continued aspirin 81 mg Tablet,Delayed Release (Dr/Ec) 81 mg PO QAM Qty: 17 RF: 0 pantoprazole 40 mg tablet,delayed release (DR/EC) 40 mg PO DAILYBB RF: 0 trazodone 100 mg tablet 100 mg PO HS RF: 0 buspirone 5 mg tablet 5 mg PO TID RF: 0 lisinopril 30 mg tablet 30 mg PO DAILY RF: 0 clopidogrel [Plavix] 75 mg Tablet 75 mg PO DAILY RF: 0 lorazepam [Ativan] 1 mg tablet 0.5 mg PO Q8H PRN (Reason: anxiety) RF: 0 atorvastatin 40 mg Tablet 40 mg PO QAM 30 Days Qty: 30 RF: 0 fluvoxamine 100 mg tablet 100 mg PO BID Qty: 0 RF: 0 amlodipine 10 mg tablet 10 mg PO DAILY RF: 0 glipizide 5 mg tablet 5 mg PO DAILY RF: 0 Changed propranolol 10 mg tablet 10 mg PO BID Qty: 0 RF: 0 hydralazine 25 mg tablet 25 mg PO BID Qty: 0 RF: 0 Discontinued hydroxyzine pamoate 50 mg capsule 50 mg PO TID PRN (Reason: Anxiety) RF: 0 Discharge Orders: Discharge Order (Routine); Ordered 06/22/21 Ordered By: Karan Potter Admission Data Admit Date/Time: 06/16/21 17:36 Attending Provider: Karan Potter Admit Provider: Daniel Ceballos Primary Care Provider: Pedro Pablo Gaspar Other Providers: Daniel Ceballos ; [facility]
--- NOTE | 2021-07-02 14:11 | Coding Query ---
CODING QUERY To promote full compliance with coding requirements relating to patient care, provider participation is requested in all cases of merchandiser seasonal uncertainty. Please assist us with the question(s) below: Coding Question(s): The Discharge Summary documents stroke like symptoms and there is documentation of , Strokelike symptoms Subacute right Parietal lobe infarction in the Hospital Course. The 06/17 Progress Note documented, "Strokelike symptoms Suspected Subacute right Parietal lobe reinfarction". It is not clear if this is felt to be recent history of stroke or if this is a new re-infarction/stroke. Please specify below, in your clinical opinion. ( ) New Stroke ( x ) Recent Stroke with No New Stroke ( ) Other: Please Specify Physician's Response(s): Thank you Mahsa Beaver Principal Diagnosis: "that condition established after study, to be chiefly responsible for occasioning the admission of the patient to the hospital for care." Co-Existing Principal Diagnosis: "when two or more diagnoses equally meet the criteria for principal diagnosis as determined by the circumstances of admission, diagnostic work up, and/or therapy provided, and the Alphabetic Index, Tabular List, or another coding guideline does not provide sequencing direction, any one of the diagnoses may be sequenced first." "When the physician has documented what appears to be a current diagnosis in the body of the record, but has not included the diagnosis in the final diagnostic statement, the physician should be asked whether the diagnosis should be added." (Source Coding [facility] 2 QTR90. p3-4) DWAIN
== END 2021-06-22 14:39 | DRG 558 ==
LOC: ED 13:53 → 2E 17:36 → SUATTDRO 17:36 → 2E 19:51 → 2W 06-18 17:48
DX: R29.6 Repeated falls; E78.5 Hyperlipidemia, unspecified; R40.2413 Glasgow coma scale score 13-15, at hospital admission; K76.0 Fatty (change of) liver, not elsewhere classified; F32.9 Major depressive disorder, single episode, unspecified; I95.1 Orthostatic hypotension; I16.0 Hypertensive urgency; Z79.82 Long term (current) use of aspirin; I69.331 Monoplegia of upper limb following cerebral infarction affecting right dominant side; R00.1 Bradycardia, unspecified; Z91.81 History of falling; I25.10 Atherosclerotic heart disease of native coronary artery without angina pectoris; I10 Essential (primary) hypertension; R29.700 NIHSS score 0; Z95.5 Presence of coronary angioplasty implant and graft; E11.9 Type 2 diabetes mellitus without complications; F17.210 Nicotine dependence, cigarettes, uncomplicated; R79.89 Other specified abnormal findings of blood chemistry; Z79.84 Long term (current) use of oral hypoglycemic drugs; Z79.899 Other long term (current) drug therapy; R29.818 Other symptoms and signs involving the nervous system; M62.82 Rhabdomyolysis; Z51.81 Encounter for therapeutic drug level monitoring; I25.5 Ischemic cardiomyopathy; I65.23 Occlusion and stenosis of bilateral carotid arteries; Z79.02 Long term (current) use of antithrombotics/antiplatelets

== ENCOUNTER 2023-09-08 09:29 | Inpatient (IN) ==
[2023-09-08] MEDS ORDERED: SODIUM CHLORIDE 0.9% 1,000 ML IV ONE (09:52)
[2023-09-08] MEDS ORDERED: ONDANSETRON INJ 2 MG/ML 2 ML VIAL IV STA (09:52)
[2023-09-08 10:25] LABS: Basophils # (auto) 0.01 K/uL (0.00-0.20); Basophils % (auto) 0.1 %; Hemoglobin 15.4 g/dl (14.0-18.0); Immature Granulocytes # (auto) 0.09 K/uL (0.01-0.20); Immature Granulocytes % (auto) 0.6 %; Lymphocytes # (auto) 0.69 K/uL (1.20-3.40); Mean Corpuscular Hemoglobin 28.3 pg (25.0-34.0); Mean Corpuscular Hgb Conc 34.2 g/dL (32.0-36.0); Mean Corpuscular Volume 82.6 fL (80.0-100.0); Mean Platelet Volume 10.6 fL (9.4-12.4); Monocytes # (auto) 0.77 K/uL (0.11-0.59); Monocytes % (auto) 5.6 %; Neutrophils % (auto) 88.7 %; Nucleated RBC # (auto) 0.05 K/uL (0.00-0.12); Nucleated RBC % (auto) 0.4 %; Platelet Count 236 K/uL (130-400); RDW Coefficient of Variation 16.9 % (11.5-14.5); RDW Standard Deviation 48.6 fL (36.4-46.3); Red Blood Count 5.45 M/uL (4.70-6.10); White Blood Count 13.86 K/ul (4.8-10.8)
[2023-09-08] MEDS ORDERED: KETOROLAC TROMETHAMINE 15 MG/ML VIAL IV ONE (10:28)
--- NOTE | 2023-09-08 10:28 | Emergency Department Note ---
Impression & Plan Pulmonary embolism ED Provider Note NAME: EDNA TAYLOR AGE: 52 SEX: M : 1970 ARRIVES VIA: Ambulance INFORMANT: Patient, ED PROVIDER(S): Tal Forrester MD CHIEF COMPLAINT: Shortness of breath, abdominal pain, edema HPI: This is a 52-year-old male presenting for shortness of breath, bilateral lower extremity edema and abdominal pain. Patient dates that he has had different symptoms over the past few days. She notes abdominal pain that feels similar to previous pancreatitis. He also notes he has history of hypertension and CHF. He notes that his legs been swelling over the past few days to weeks. He does have shortness of breath at rest as well as with exertion. No orthopnea noted. He does not know how long the last time he had a CHF exacerbation was. He notes no fevers, chills, nausea or vomiting. No current chest pain. He does not drink alcohol at this time. Denies any other drug use. ROS: See above HPI for pertinent positives & negatives. A total of 10 systems reviewed and were otherwise negative. PAST MEDICAL HISTORY: See Below PAST SURGICAL HISTORY: See Below FAMILY HISTORY: See Below SOCIAL HISTORY: See Below HOME MEDICATIONS: See Below ALLERGIES: See Below VITALS: See Below PHYSICAL EXAMINATION: General: resting comfortably in no acute distress Head: Normocephalic and atraumatic Eyes: Normal inspection, extraocular muscles intact, no conjunctival pallor Ear, nose, throat: Normal external exam Neck: Normal range of motion Respiratory: Patient is in no respiratory distress, lungs clear to auscultation bilaterally Cardiovascular: RRR without murmur appreciated GI: Soft, diffusely tender without rebound or guarding Extremities: pulses intact with good cap refills, no LE pitting edema or calf te nderness Neuro: The patient awake and alert, appropriately conversive,no focal decifits Skin: Warm, dry, and intact MEDICAL DECISION MAKING: This is a 52-year-old male presenting for shortness of breath, abdominal pain and lower extremity edema. We will get BNP, basic blood work, chest x-ray, LFTs and lipase. Will give pain control, fluids, Zofran. Patient's blood work is reviewed showing a leukocytosis of 13.86. Otherwise he has a significantly elevated troponin at 130+. BNP is elevated at 3000. Lipase divided 179. D-dimer is significant elevated at 15,000. We will proceed to CTA. EKG is reviewed at this time showing sinus tachycardia, prolonged QTc but otherwise no clear STEMI. CTA does reveal bilateral subsegmental PEs and possible pulmonary infarct versus superimposed pneumonia. Patient given heparin bolus/drip for PEs. Patient has been reevaluated multiple times, always hemodynamically stable with pressures that are significantly hypertensive. We will discuss with hospitalist for admission at this time. Patient is admitted to floor. Triage Nursing notes reviewed. Prior medical records reviewed Vital Signs: reviewed and remarkable for no significant abnormalities Differential diagnosis: SBO, pancreatitis, CHF, ACS, ER treatment provided: See below Diagnostics interpreted by me: ECG: ECG reviewed by me with sinus tachycardia rate of 105, right axis deviation, normal AK, normal QRS, significantly prolonged QTc, no ST segment elevations consistent with STEMI criteria Cardiac Monitoring: An order was placed for continuous cardiac monitoring. The monitor shows a rate of 100 with sinus rhythm. Laboratory studies: As stated above and show below. Imaging studies: See below. Radiographic imaging was reviewed by myself Consultation(s): None Critical Care Note: I have personally spent 47 minutes of critical care time in the direct management of this patient. This includes bedside care, interpre tation of diagnostic studies, and testing, discussion with consultants, patient, and family members, and other required patient management activities. This 47 minutes is in excess of all separately billable procedures. Past Med/Surg History Medical History (Updated 09/08/23 @ 16:37 by CRISTINA Castle) Abnormal MRI of head MRI 06/15/20 showed MCA infarcts as well as ring enhancement right posterior lobe. Repeat MRI recommended in 3 months. CAD (coronary artery disease) 2013 - NSTEMI s/p BRUCE to RCA Carotid stenosis, bilateral CKD (chronic kidney disease), stage III Depression DM type 2 (diabetes mellitus, type 2) Dyslipidemia Encounter for pre-operative examination History of cerebrovascular accident March 2020; subacute infarct noted to parietal lobe per 06/15/20 MRI Hypertension Ischemic cardiomyopathy EF=45% Surgical History Hx of endarterectomy (06/28/20) Right Carotid Endarterectomy with Bovine Patch Angioplasty Dr. Arita 06/28/2020 S/P drug eluting coronary stent placement Family History Mother , age 68 from metastatic lung cancer Lung cancer Father No problems noted. 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[employer], 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 Feels Safe at Home: Yes Assistive Devices: Walker Allergies Allergies Allergy/AdvReac Type Severity Reaction Status Date / Time No Known Allergies Allergy Verified 09/08/23 14:20 Home Meds Home Medications Medication Instructions Recorded Confirmed clopidogrel 75 mg tablet (Plavix) 75 mg PO DAILY 06/05/21 09/08/23 lisinopril 30 mg tablet 30 mg PO DAILY 06/05/21 09/08/23 amlodipine 5 mg tablet 5 mg PO QAM PRN HTN 09/08/23 09/08/23 atorvastatin 20 mg tablet 20 mg PO QAM 09/08/23 09/08/23 escitalopram oxalate 5 mg tablet 5 mg PO DAILY 09/08/23 09/08/23 hydralazine 25 mg tablet 25 mg PO TID 09/08/23 09/08/23 metoprolol succinate 25 mg 12.5 mg PO DAILY 09/08/23 09/08/23 tablet,extended release 24 hr omeprazole 40 mg capsule,delayed 40 mg PO QAM 09/08/23 09/08/23 release Results & Data (ED) Vital Signs Vital Signs - 24 hr 09/08/23 09:44 09/08/23 09:49 09/08/23 09:49 Temperature 36.8 C Temperature Source Oral Pulse Rate 105 H Pulse Rate [Apical] Pulse Rate from SpO2 Sensor Respiratory Rate 19 Respiratory Pattern Tachypnea Tachypnea Blood Pressure 179/116 H Blood Pressure [Left Arm] Blood Pressure Mean 137 Blood Pressure Mean [Left Arm] Pulse Oximetry 100 Oxygen Delivery Method Room Air Room Air Oxygen Flow Rate Sepsis Recent Fever Within 48 Hours No Sepsis New/Unexplained Change in Mental Status No Sepsis Action Taken by Nursing No Action Required 09/08/23 10:01 09/08/23 09:39 09/08/23 09:40 Temperature Temperature Source Pulse Rate 105 H 105 H 105 H Pulse Rate [Apical] Pulse Rate from SpO2 Sensor 105 H 105 H Respiratory Rate 19 22 Respiratory Pattern Blood Pressure Blood Pressure [Left Arm] Blood Pressure Mean Blood Pressure Mean [Left Arm] Pulse Oximetry 100 100 Oxygen Delivery Method Oxygen Flow Rate Sepsis Recent Fever Within 48 Hours Sepsis New/Unexplained Change in Mental Status Sepsis Action Taken by Nursing 09/08/23 09:50 09/08/23 10:00 09/08/23 10:10 Temperature Temperature Source Pulse Rate 105 H 106 H 107 H Pulse Rate [Apical] Pulse Rate from SpO2 Sensor Respiratory Rate 47 H 29 H 34 H Respiratory Pattern Blood Pressure Blood Pressure [Left Arm] Blood Pressure Mean Blood Pressure Mean [Left Arm] Pulse Oximetry Oxygen Delivery Method Oxygen Flow Rate Sepsis Recent Fever Within 48 Hours Sepsis New/Unexplained Change in Mental Status Sepsis Action Taken by Nursing 09/08/23 10:20 09/08/23 10:30 09/08/23 10:40 Temperature Temperature Source Pulse Rate 106 H 104 H 103 H Pulse Rate [Apical] Pulse Rate from SpO2 Sensor 106 H 116 H 104 H Respiratory Rate 48 H 46 H 49 H Respiratory Pattern Blood Pressure Blood Pressure [Left Arm] Blood Pressure Mean Blood Pressure Mean [Left Arm] Pulse Oximetry 100 100 100 Oxygen Delivery Method Oxygen Flow Rate Sepsis Recent Fever Within 48 Hours Sepsis New/Unexplained Change in Mental Status Sepsis Action Taken by Nursing 09/08/23 10:50 09/08/23 11:00 09/08/23 11:10 Temperature Temperature Source Pulse Rate 103 H 103 H 103 H Pulse Rate [Apical] Pulse Rate from SpO2 Sensor 104 H 104 H 103 H Respiratory Rate 15 43 H 20 Respiratory Pattern Blood Pressure Blood Pressure [Left Arm] Blood Pressure Mean Blood Pressure Mean [Left Arm] Pulse Oximetry 100 100 100 Oxygen Delivery Method Oxygen Flow Rate Sepsis Recent Fever Within 48 Hours Sepsis New/Unexplained Change in Mental Status Sepsis Action Taken by Nursing 09/08/23 11:20 09/08/23 11:30 09/08/23 11:40 Temperature Temperature Source Pulse Rate 103 H 103 H 106 H Pulse Rate [Apical] Pulse Rate from SpO2 Sensor 104 H 104 H 106 H Respiratory Rate 29 H 14 19 Respiratory Pattern Blood Pressure Blood Pressure [Left Arm] Blood Pressure Mean Blood Pressure Mean [Left Arm] Pulse Oximetry 97 97 91 Oxygen Delivery Method Oxygen Flow Rate Sepsis Recent Fever Within 48 Hours Sepsis New/Unexplained Change in Mental Status Sepsis Action Taken by Nursing 09/08/23 11:50 09/08/23 11:58 09/08/23 12:05 Temperature Temperature Source Pulse Rate 106 H 106 H Pulse Rate [Apical] Pulse Rate from SpO2 Sensor 106 H 108 H Respiratory Rate 23 18 Respiratory Pattern Blood Pressure 197/123 H Blood Pressure [Left Arm] Blood Pressure Mean 142 Blood Pressure Mean [Left Arm] Pulse Oximetry 93 93 Oxygen Delivery Method Oxygen Flow Rate Sepsis Recent Fever Within 48 Hours Sepsis New/Unexplained Change in Mental Status Sepsis Action Taken by Nursing 09/08/23 13:46 09/08/23 12:35 09/08/23 12:40 Temperature Temperature Source Pulse Rate Pulse Rate [Apical] 99 H Pulse Rate from SpO2 Sensor 105 H 104 H Respiratory Rate 16 Respiratory Pattern Blood Pressure Blood Pressure [Left Arm] 197/111 H Blood Pressure Mean Blood Pressure Mean [Left Arm] 139 Pulse Oximetry 98 93 95 Oxygen Delivery Method Nasal Cannula Oxygen Flow Rate 2 Sepsis Recent Fever Within 48 Hours Sepsis New/Unexplained Change in Mental Status Sepsis Action Taken by Nursing 09/08/23 13:30 09/08/23 13:40 09/08/23 13:50 Temperature Temperature Source Pulse Rate Pulse Rate [Apical] Pulse Rate from SpO2 Sensor 98 H 98 H 99 H Respiratory Rate Respiratory Pattern Blood Pressure Blood Pressure [Left Arm] Blood Pressure Mean Blood Pressure Mean [Left Arm] Pulse Oximetry 88 L 88 L 100 Oxygen Delivery Method Oxygen Flow Rate Sepsis Recent Fever Within 48 Hours Sepsis New/Unexplained Change in Mental Status Sepsis Action Taken by Nursing 09/08/23 14:00 09/08/23 14:10 09/08/23 14:20 Temperature Temperature Source Pulse Rate 102 H Pulse Rate [Apical] Pulse Rate from SpO2 Sensor 108 H 101 H Respiratory Rate Respiratory Pattern Blood Pressure 156/112 H Blood Pressure [Left Arm] Blood Pressure Mean 126 Blood Pressure Mean [Left Arm] Pulse Oximetry 83 L 83 L 100 Oxygen Delivery Method Oxygen Flow Rate Sepsis Recent Fever Within 48 Hours Sepsis New/Unexplained Change in Mental Status Sepsis Action Taken by Nursing 09/08/23 15:58 Temperature Temperature Source Pulse Rate 105 H Pulse Rate [Apical] Pulse Rate from SpO2 Sensor Respiratory Rate Respiratory Pattern Blood Pressure Blood Pressure [Left Arm] Blood Pressure Mean Blood Pressure Mean [Left Arm] Pulse Oximetry Oxygen Delivery Method Oxygen Flow Rate Sepsis Recent Fever Within 48 Hours Sepsis New/Unexplained Change in Mental Status Sepsis Action Taken by Nursing Laboratory Data 09/08/23 10:00 09/08/23 10:00 Lab Results 09/08/23 09/08/23 09/08/23 Range/Units 10:00 10:00 10:00 WBC 13.86 H (4.8-10.8) K/ul RBC 5.45 (4.70-6.10) M/uL Hgb 15.4 (14.0-18.0) g/dl Hct 45.0 (42.0-52.0) % MCV 82.6 (80.0-100.0) fL MCH 28.3 (25.0-34.0) pg MCHC 34.2 (32.0-36.0) g/dL RDW Std Deviation 48.6 H (36.4-46.3) fL RDW Coeff of Dione 16.9 H (11.5-14.5) % Plt Count 236 (130-400) K/uL MPV 10.6 (9.4-12.4) fL Immature Gran % (Auto) 0.6 % Neut % (Auto) 88.7 % Lymph % (Auto) 5.0 % [place] % (Auto) 5.6 % Eos % (Auto) 0.0 % Baso % (Auto) 0.1 % Neut # (Auto) 12.30 H (1.40-6.50) K/uL Lymph # (Auto) 0.69 L (1.20-3.40) K/uL [place] # (Auto) 0.77 H (0.11-0.59) K/uL Eos # (Auto) 0.00 (0.00-0.50) K/uL Baso # (Auto) 0.01 (0.00-0.20) K/uL Immature Gran # (Auto) 0.09 (0.01-0.20) K/uL Absolute Nucleated RBC 0.05 (0.00-0.12) K/uL Nucleated RBC % (auto) 0.4 % PT (9.0-12.0) Seconds INR (0.9-1.1) D-Dimer (0-500) ug/L FEU Sodium 133 L (136-145) mmol/L Potassium 4.5 (3.5-5.1) mmol/L Chloride 96 L (98-107) mmol/L Carbon Dioxide 22 (21-32) mmol/L Anion Gap 15 H (3-11) BUN 26 H (6-23) mg/dl Creatinine 1.56 H (0.6-1.4) mg/dl Est Cr Clr Drug Dosing 45.6 ml/min Est GFR ( Amer) 58.3 ml/min Est GFR (Non-Af Amer) 50.3 ml/min BUN/Creatinine Ratio 16.7 (10-20) Glucose 195 H (70-99(Fasting)) mg/dl Calcium 9.7 (8.6-10.3) mg/dl Total Bilirubin 3.4 H (0.2-1.0) mg/dl AST 55 H (13-39) U/L ALT 216 H (7-52) U/L Alkaline Phosphatase 81 (34-104) U/L Troponin I High Sens 128.0 H* (0-20) pg/ml C-Reactive Protein (0-0.5) mg/dl B-Natriuretic Peptide 3001 H (0-100) pg/ml Total Protein 6.7 (6.0-8.3) gm/dl Albumin 3.5 (3.4-5.0) gm/dl Globulin 3.2 (2.5-4.0) gm/dl Albumin/Globulin Ratio 1.1 (0.9-2) Lipase 179 H (11-82) U/L Procalcitonin (0-0.5) ng/ml Urine Color Urine Appearance (Clear) Urine pH (4.5-7.5) Ur Specific [place] (1.000-1.030) Urine Protein (Negative) Urine Glucose (UA) (Negative) Urine Ketones (Negative) Urine Blood (Negative) Urine Nitrite (Negative) Urine Bilirubin (Negative) Urine Urobilinogen (Negative) Ur Leukocyte Esterase (Negative) Urine WBC (Auto) (0-5) /hpf Urine RBC (Auto) (0-4) /hpf U Hyaline Cast (Auto) (0-5) /lpf U Epithel Cells (Auto) (0-5) /lpf Urine Bacteria (Auto) (Negative) SARS-CoV-2 (PCR) (Negative) Influenza Type A (PCR) (Neg) Influenza Type B (PCR) (Neg) RSV (RT-PCR) (Neg) 09/08/23 09/08/23 09/08/23 Range/Units 10:04 10:04 10:04 WBC (4.8-10.8) K/ul RBC (4.70-6.10) M/uL Hgb (14.0-18.0) g/dl Hct (42.0-52.0) % MCV (80.0-100.0) fL MCH (25.0-34.0) pg MCHC (32.0-36.0) g/dL RDW Std Deviation (36.4-46.3) fL RDW Coeff of Dione (11.5-14.5) % Plt Count (130-400) K/uL MPV (9.4-12.4) fL Immature Gran % (Auto) % Neut % (Auto) % Lymph % (Auto) % [place] % (Auto) % Eos % (Auto) % Baso % (Auto) % Neut # (Auto) (1.40-6.50) K/uL Lymph # (Auto) (1.20-3.40) K/uL [place] # (Auto) (0.11-0.59) K/uL Eos # (Auto) (0.00-0.50) K/uL Baso # (Auto) (0.00-0.20) K/uL Immature Gran # (Auto) (0.01-0.20) K/uL Absolute Nucleated RBC (0.00-0.12) K/uL Nucleated RBC % (auto) % PT 17.9 H (9.0-12.0) Seconds INR 1.7 H (0.9-1.1) D-Dimer 77252 H* (0-500) ug/L FEU Sodium (136-145) mmol/L Potassium (3.5-5.1) mmol/L Chloride (98-107) mmol/L Carbon Dioxide (21-32) mmol/L Anion Gap (3-11) BUN (6-23) mg/dl Creatinine (0.6-1.4) mg/dl Est Cr Clr Drug Dosing ml/min Est GFR ( Amer) ml/min Est GFR (Non-Af Amer) ml/min BUN/Creatinine Ratio (10-20) Glucose (70-99(Fasting)) mg/dl Calcium (8.6-10.3) mg/dl Total Bilirubin (0.2-1.0) mg/dl AST (13-39) U/L ALT (7-52) U/L Alkaline Phosphatase (34-104) U/L Troponin I High Sens (0-20) pg/ml C-Reactive Protein (0-0.5) mg/dl B-Natriuretic Peptide (0-100) pg/ml Total Protein (6.0-8.3) gm/dl Albumin (3.4-5.0) gm/dl Globulin (2.5-4.0) gm/dl Albumin/Globulin Ratio (0.9-2) Lipase (11-82) U/L Procalcitonin 0.17 (0-0.5) ng/ml Urine Color Urine Appearance (Clear) Urine pH (4.5-7.5) Ur Specific [place] (1.000-1.030) Urine Protein (Negative) Urine Glucose (UA) (Negative) Urine Ketones (Negative) Urine Blood (Negative) Urine Nitrite (Negative) Urine Bilirubin (Negative) Urine Urobilinogen (Negative) Ur Leukocyte Esterase (Negative) Urine WBC (Auto) (0-5) /hpf Urine RBC (Auto) (0-4) /hpf U Hyaline Cast (Auto) (0-5) /lpf U Epithel Cells (Auto) (0-5) /lpf Urine Bacteria (Auto) (Negative) SARS-CoV-2 (PCR) (Negative) Influenza Type A (PCR) (Neg) Influenza Type B (PCR) (Neg) RSV (RT-PCR) (Neg) 09/08/23 09/08/23 09/08/23 Range/Units 11:47 12:32 Unknown WBC (4.8-10.8) K/ul RBC (4.70-6.10) M/uL Hgb (14.0-18.0) g/dl Hct (42.0-52.0) % MCV (80.0-100.0) fL MCH (25.0-34.0) pg MCHC (32.0-36.0) g/dL RDW Std Deviation (36.4-46.3) fL RDW Coeff of Dione (11.5-14.5) % Plt Count (130-400) K/uL MPV (9.4-12.4) fL Immature Gran % (Auto) % Neut % (Auto) % Lymph % (Auto) % [place] % (Auto) % Eos % (Auto) % Baso % (Auto) % Neut # (Auto) (1.40-6.50) K/uL Lymph # (Auto) (1.20-3.40) K/uL [place] # (Auto) (0.11-0.59) K/uL Eos # (Auto) (0.00-0.50) K/uL Baso # (Auto) (0.00-0.20) K/uL Immature Gran # (Auto) (0.01-0.20) K/uL Absolute Nucleated RBC (0.00-0.12) K/uL Nucleated RBC % (auto) % PT (9.0-12.0) Seconds INR (0.9-1.1) D-Dimer (0-500) ug/L FEU Sodium (136-145) mmol/L Potassium (3.5-5.1) mmol/L Chloride (98-107) mmol/L Carbon Dioxide (21-32) mmol/L Anion Gap (3-11) BUN (6-23) mg/dl Creatinine (0.6-1.4) mg/dl Est Cr Clr Drug Dosing ml/min Est GFR ( Amer) ml/min Est GFR (Non-Af Amer) ml/min BUN/Creatinine Ratio (10-20) Glucose (70-99(Fasting)) mg/dl Calcium (8.6-10.3) mg/dl Total Bilirubin (0.2-1.0) mg/dl AST (13-39) U/L ALT (7-52) U/L Alkaline Phosphatase (34-104) U/L Troponin I High Sens 106.3 H* (0-20) pg/ml C-Reactive Protein 7.63 H (0-0.5) mg/dl B-Natriuretic Peptide (0-100) pg/ml Total Protein (6.0-8.3) gm/dl Albumin (3.4-5.0) gm/dl Globulin (2.5-4.0) gm/dl Albumin/Globulin Ratio (0.9-2) Lipase (11-82) U/L Procalcitonin (0-0.5) ng/ml Urine Color Dark Yellow Urine Appearance Clear (Clear) Urine pH 6.0 (4.5-7.5) Ur Specific [place] 1.017 (1.000-1.030) Urine Protein 1+ H (Negative) Urine Glucose (UA) Trace H (Negative) Urine Ketones 1+ H (Negative) Urine Blood Negative (Negative) Urine Nitrite Negative (Negative) Urine Bilirubin Negative (Negative) Urine Urobilinogen Negative (Negative) Ur Leukocyte Esterase Trace H (Negative) Urine WBC (Auto) 1-5 (0-5) /hpf Urine RBC (Auto) 0-4 (0-4) /hpf U Hyaline Cast (Auto) 1-5 (0-5) /lpf U Epithel Cells (Auto) 5-10 H (0-5) /lpf Urine Bacteria (Auto) Negative (Negative) SARS-CoV-2 (PCR) NEGATIVE (Negative) Influenza Type A (PCR) Negative (Neg) Influenza Type B (PCR) Negative (Neg) RSV (RT-PCR) Negative (Neg) Administered Medications Heparin Sodium/Dextrose (Heparin Sodium/Dextrose) 25,000 units in 500 mls @ 21 mls/hr IV .[id number] [facility]; Protocol Stop: 10/08/23 14:29 Last Admin: 09/08/23 16:15 Dose: 1,050 units/hr, 21 mls/hr Documented By: POWER Co-signed By: EBENEZER Discontinued Medications Furosemide (Furosemide Inj 20 Mg/2 Ml Vial) 20 mg IV ONE ONE Stop: 09/08/23 15:56 Last Admin: 09/08/23 16:14 Dose: 20 mg Documented By: POWER Heparin Sodium (Porcine) (Heparin Sod (Porcine) 1000 Unit/Ml) 5,000 units IV NOW ONE Stop: 09/08/23 14:31 Last Admin: 09/08/23 16:14 Dose: 5,000 units Documented By: POWER Co-signed By: EBENEZER Sodium Chloride (Nss) 1,000 mls @ 999 mls/hr IV .[id number] ONE Stop: 09/08/23 10:52 Last Infusion: 09/08/23 11:52 Dose: 0 mls/hr Documented By: Admin: 09/08/23 10:19 Dose: 999 mls/hr Documented By: KV Ceftriaxone Sodium 2,000 mg/ (Dextrose) 50 mls @ 100 mls/hr IV NOW STA; Protocol Stop: 09/08/23 13:36 Last Admin: 09/08/23 13:45 Dose: 100 mls/hr Documented By: KV Ioversol (Optiray 320 500ml) 114 ml IV ONCE ONE Stop: 09/08/23 13:28 Last Admin: 09/08/23 13:28 Dose: 114 ml Documented By: SEJ Ketorolac Tromethamine (Ketorolac Tromethamine 15 Mg/Ml Vial) 15 mg IV NOW ONE Stop: 09/08/23 10:29 Last Admin: 09/08/23 10:54 Dose: 15 mg Documented By: KV Ondansetron HCl (Ondansetron Inj 2 Mg/Ml 2 Ml Vial) 4 mg IV NOW STA Stop: 09/08/23 09:53 Last Admin: 09/08/23 10:19 Dose: 4 mg Documented By: KV Imaging Data Radiologist's Impression: Chest X-Ray 09/08/23 09:51 XR chest 1V portable HISTORY: 52 years-old Male Dyspnea acute shortness of breath COMPARISON: 08/20/2022 TECHNIQUE: AP view of the chest FINDINGS: Cardiac silhouette is enlarged. Pulmonary vascular congestion. Patchy bibasilar and lateral left midlung airspace opacities. No pneumothorax or large pleural effusion. Bones appear grossly intact. Atherosclerosis of the aorta. IMPRESSION: 1. Cardiomegaly with pulmonary vascular congestion. 2. Patchy bibasilar and midlung opacities suspicious for superimposed pneumonia. ACT 112: Negative or not required by law. The above report was generated using voice recognition software. It may contain grammatical, syntax or spelling errors. Electronically signed by: Rufino Jo M.D. 09/08/2023 10:35 AM Chest CTA 09/08/23 11:53 CT angio chest PE protocol CT DOSE: 756.37 mGy.cm HISTORY: 52 years-old Male with PE. Acute shortness of breath TECHNIQUE: Multiple CTA images of the chest were obtained after the intravenous administration of 114 ml Optiray. Coronal and sagittal MIPS were obtained from the axial data set and were submitted for review. All measurements were obtained according to NASCET criteria. A dose lowering technique was utilized adhering to the principles of ALARA. COMPARISON: Chest radiograph of same day FINDINGS: CTA: Marked cardiomegaly. Trace pericardial effusion. Extensive coronary artery calcifications. Atherosclerosis of the thoracic aorta without aneurysm. Aberrant right subclavian artery. There is limited evaluation of the subsegmental pulmonary arterial branches secondary to contrast bolus timing, notably within the lower lobes. Small bilateral subsegmental pulmonary emboli are noted bilaterally. No central pulmonary emboli or right heart strain identified. CT CHEST: No thyroid nodule identified. Nonspecific borderline enlarged mediastinal and hilar lymphadenopathy is likely reactive. Small left with moderate right pleural effusions. No pneumothorax. Intralobular septal thickening with intermixed groundglass densities and patchy multilobar distribution of peripheral consolidation, most pronounced within the lower lobes and left upper lobe. The largest area of consolidation measures up to 6.2 cm within the right lower lobe. The central airways are patent. Generalized body wall edema with upper abdominal ascites. Distal esophageal wall thickening. There is mild hepatic steatosis with probable hepatomegaly. No acute fracture identified. IMPRESSION: 1. Subsegmental bilateral pulmonary emboli. 2. Cardiomegaly with pulmonary edema, small left and moderate right pleural effusions. 3. Bilateral areas of wedge-shaped consolidation, most pronounced within the left upper and bilateral lower lobes may represent superimposed pneumonia versus pulmonary infarcts. 4. Anasarca with small volume of upper abdominal ascites. 5. Hepatic steatosis. ACT 112: Negative or not required by law. The above report was generated using voice recognition software. It may contain grammatical, syntax or spelling errors. Electronically signed by: Rufino Jo M.D. 09/08/2023 1:56 PM Discharge Plan Visit Data Chief Complaint: Shortness of Breath/Dyspnea Stated Complaint: SOB ED Provider: Tal Forrester Discharge Problem: Pulmonary embolism Forms Stand Alone Forms: My [employer] Prescriptions Prescriptions: No Action lisinopril 30 mg tablet 30 mg PO DAILY clopidogrel [Plavix] 75 mg Tablet 75 mg PO DAILY atorvastatin 20 mg tablet 20 mg PO QAM amlodipine 5 mg tablet 5 mg PO QAM PRN (Reason: HTN) omeprazole 40 mg capsule,delayed release(DR/EC) 40 mg PO QAM hydralazine 25 mg tablet 25 mg PO TID metoprolol succinate 25 mg tablet extended release 24 hr 12.5 mg PO DAILY escitalopram oxalate 5 mg tablet 5 mg PO DAILY Referrals Referrals: Pedro Pablo Gaspar MD [Primary Care Provider] -
[2023-09-08 10:37] LABS: Albumin Globulin Ratio 1.1 (0.9-2); Albumin Level 3.5 gm/dl (3.4-5.0); BUN Creatinine Ratio 16.7 (10-20); Bilirubin,Total 3.4 mg/dl (0.2-1.0); Calcium 9.7 mg/dl (8.6-10.3); Creatinine Clr Calc Pharmacy 45.6 ml/min; Est GFR (African American) 58.3 ml/min; Est GFR (Non-African American) 50.3 ml/min; Globulin 3.2 gm/dl (2.5-4.0); Potassium 4.5 mmol/L (3.5-5.1); Total Protein 6.7 gm/dl (6.0-8.3)
--- NOTE | 2023-09-08 10:38 | XRay Report ---
XR chest 1V portable HISTORY: 52 years-old Male Dyspnea acute shortness of breath COMPARISON: 08/20/2022 TECHNIQUE: AP view of the chest FINDINGS: Cardiac silhouette is enlarged. Pulmonary vascular congestion. Patchy bibasilar and lateral left midl evan airspace opacities. No pneumothorax or large pleural effusion. Bones appear grossly intact. Ather osclerosis of the aorta. IMPRESSION: 1. Cardiomegaly with pulmonary vascular congestion. 2. Patchy bibasilar and midlung opacities suspicious for superimposed pneumonia. ACT 112: Negative or not required by law. The above report was generated using voice recognition software. It may contain grammatical, syntax o r spelling errors. Electronically signed by: Rufino Jo M.D. 09/08/2023 10:35 AM
[2023-09-08 11:53] LABS: D Dimer 15230 ug/L FEU (0-500)
[2023-09-08 12:18] LABS: Appearance Urine Clear (Clear); Bacteria Urine Automated Negative (Negative); Bilirubin Urine Negative (Negative); Blood Urine Negative (Negative); Color Urine Dark Yellow; Glucose Urine UA Trace (Negative); Ketones Urine 1+ (Negative); Leukocyte Esterase Urine Trace (Negative); Nitrite Urine Negative (Negative); Protein Urine 1+ (Negative); RBC Urine Automated 0-4 /hpf (0-4); Specific Gravity Urine 1.017 (1.000-1.030); Urobilinogen Urine Negative (Negative)
[2023-09-08 12:33] LABS: Troponin I High Sensitivity 106.3 pg/ml (0-20)
[2023-09-08] MEDS ORDERED: cefTRIAXone SODIUM 2,000 MG in DEXTROSE 5 % MINI-B 50 ML IV STA (13:07)
[2023-09-08 13:26] LABS: Influenza A virus by PCR Negative (Neg); Influenza B virus by PCR Negative (Neg); RSV by PCR Negative (Neg); SARS CoV2 RNA(COVID-19) Ceph NEGATIVE (Negative)
[2023-09-08] MEDS ORDERED: OPTIRAY 320 500ml IV ONE (13:27)
--- NOTE | 2023-09-08 13:58 | CT Scan Report ---
CT angio chest PE protocol CT DOSE: 756.37 mGy.cm HISTORY: 52 years-old Male with PE. Acute shortness of breath TECHNIQUE: Multiple CTA images of the chest were obtained after the intravenous administration of 114 ml Optiray. Coronal and sagittal MIPS were obtained from the axial data set and were submitted for review. All measurements were obtained according to NASCET criteria. A dose lowering technique was u tilized adhering to the principles of ALARA. COMPARISON: Chest radiograph of same day FINDINGS: CTA: Marked cardiomegaly. Trace pericardial effusion. Extensive coronary artery calcifications. Atheroscle rosis of the thoracic aorta without aneurysm. Aberrant right subclavian artery. There is limited eval uation of the subsegmental pulmonary arterial branches secondary to contrast bolus timing, notably wi thin the lower lobes. Small bilateral subsegmental pulmonary emboli are noted bilaterally. No central pulmonary emboli or right heart strain identified. CT CHEST: No thyroid nodule identified. Nonspecific borderline enlarged mediastinal and hilar lymphadenopathy i s likely reactive. Small left with moderate right pleural effusions. No pneumothorax. Intralobular se ptal thickening with intermixed groundglass densities and patchy multilobar distribution of periphera l consolidation, most pronounced within the lower lobes and left upper lobe. The largest area of cons olidation measures up to 6.2 cm within the right lower lobe. The central airways are patent. Generalized body wall edema with upper abdominal ascites. Distal esophageal wall thickening. There is mild hepatic steatosis with probable hepatomegaly. No acute fracture identified. IMPRESSION: 1. Subsegmental bilateral pulmonary emboli. 2. Cardiomegaly with pulmonary edema, small left and moderate right pleural effusions. 3. Bilateral areas of wedge-shaped consolidation, most pronounced within the left upper and bilateral lower lobes may represent superimposed pneumonia versus pulmonary infarcts. 4. Anasarca with small volume of upper abdominal ascites. 5. Hepatic steatosis. ACT 112: Negative or not required by law. The above report was generated using voice recognition software. It may contain grammatical, syntax o r spelling errors. Electronically signed by: Rufino Jo M.D. 09/08/2023 1:56 PM
[2023-09-08] MEDS ORDERED: Heparin IV Adult Wt-Based Standard WITH Bolus Protocol IV STA (14:07)
[2023-09-08] MEDS ORDERED: HEPARIN SOD (PORCINE) 1000 UNIT/ML IV ONE ×2 (14:23→14:30)
[2023-09-08 15:06] LABS: C Reactive Protein 7.63 mg/dl (0-0.5)
--- NOTE | 2023-09-08 15:43 | History & Physical Report ---
Date of Service September 08, 2023 Assessment & Plan (1) Hypoxia: (2) Acute systolic CHF (congestive heart failure): (3) Ischemic cardiomyopathy: (4) Pulmonary embolism: (5) Elevated troponin: Plan: Admit to telemetry Patient presenting from home with reports of shortness of breath and lower extremity edema. History of ischemic cardiomyopathy with prior reduced EF, normalized on echo 06/2021. On presentation, hypoxic on room air at 88%, currently requiring 2 L of oxygen via nasal cannula to maintain saturations CTA chest shows subsegmental pulmonary embolism, cardiomegaly with pulmonary edema, small left and moderate right pleural effusion. Evidence of pneumonia vs. pulmonary infarct. Started on heparin drip in the ED Check BLLE dopplers Received communication from cardiology that patient has severe LV dysfunction on echo, formal report pending proBNP 3000 HS trop 128 -> 106, continue to trend Lasix 20 mg IV x 1 Continue beta-marcial and ACEi Given findings of possible pneumonia on CT, leukocytosis, elevated CRP, will treat empirically for pneumonia S/p IV ceftriaxone in the ED, continue with and add IV doxycycline Procalcitonin WNL Flu, COVID, RSV negative (6) Elevated LFTs: Plan: T. bili 3.4, AST 55, ALT 216, alk phos 81 INR 1.7 MELD 23 RUQ US pending ? Congestive hepatopathy from CHF Trend LFTs GI consult (7) H/O: CVA (cerebrovascular accident): Plan: Continue Plavix Holding statin due to elevated LFTs (8) CAD (coronary artery disease): Plan: History of NSTEMI in 2013 s/p BRUCE to RCA Continue Plavix and beta-marcial, holding statin due to elevated LFTs (9) DM type 2 (diabetes mellitus, type 2): Plan: Hgb A1c 6.4 08/2022 Patient self stopped metformin 1 year ago NovoLog per protocol while hospitalized, obtain A1c with a.m. labs (10) Hypertension: Plan: BP elevated on presentation, self resolving Continue home metoprolol, lisinopril, hydralazine for now Hold amlodipine given acute CHF. Patient typically only utilizes on a as needed basis. (11) Prolonged QT interval: Plan: QTc 541 Avoid QTc prolonging agents, daily EKG (12) CKD (chronic kidney disease), stage III: Plan: Baseline creatinine ~ 1.4 Creatinine 1.5 today Continue to monitor renal functions DVT PROPHYLAXIS On IV heparin Patient seen in collaboration with Dr. Jansen. I spent a total of 75 minutes coordinating, documenting, and providing care for this patient excluding time spent in the performance of separately billed services. This included personally reviewing all current laboratories and imaging studies, medication reconciliation, outpatient chart review, and discussion with specialists. History of Present Illness Chief Complaint: Leg swelling, shortness of breath Primary Care Provider: Pedro Pablo Gaspar MD 52-year-old male with PMH DM type II, ischemic cardiomyopathy, systolic CHF, GERD, CKD stage III, history of CVA, right carotid endarterectomy, CAD, NSTEMI 2014 s/p BRUCE to RCA, depression, anxiety, and other problems listed below who presents to the ED for evaluation of bilateral lower extremity swelling and shortness of breath. History obtained from the patient and review of outpatient PCP and cardiology records. Patient reports he noted lower extremity swelling about 1 week ago. States he has no swelling at baseline. Reports mild exertional shortness of breath. No chest pain or orthopnea. Has had a cough that has been rarely productive. Denies fevers and chills. Reports epigastric discomfort and vomiting over the past couple days. Denies hematemesis, coffee- ground emesis, bright red bleeding per rectum, dark tarry stools. No lightheadedness, dizziness, diaphoresis, syncopal events. Denies urinary symptoms. In the ED, patient was mildly hypoxic in room air at 88%. Requiring 2 L of oxygen via nasal cannula. Patient was mildly tachycardic, BP elevated. Labs show WBC 13.8 K, D-dimer 15,000, transaminitis, HS troponin 128 --> 106, CRP 7.6, proBNP 3000, lipase 179. CTA shows bilateral subsegmental PE, bilat eral pleural effusions, possible pneumonia. Patient was given IV ceftriaxone, IVF, and started on heparin drip. Allergies Allergy/AdvReac Type Severity Reaction Status Date / Time No Known Allergies Allergy Verified 09/08/23 14:20 Home Medications Medication Instructions Recorded Confirmed Type clopidogrel 75 mg tablet (Plavix) 75 mg PO DAILY 06/05/21 09/08/23 History lisinopril 30 mg tablet 30 mg PO DAILY 06/05/21 09/08/23 History amlodipine 5 mg tablet 5 mg PO QAM PRN HTN 09/08/23 09/08/23 History atorvastatin 20 mg tablet 20 mg PO QAM 09/08/23 09/08/23 History escitalopram oxalate 5 mg tablet 5 mg PO DAILY 09/08/23 09/08/23 History hydralazine 25 mg tablet 25 mg PO TID 09/08/23 09/08/23 History metoprolol succinate 25 mg 12.5 mg PO DAILY 09/08/23 09/08/23 History tablet,extended release 24 hr omeprazole 40 mg capsule,delayed 40 mg PO QAM 09/08/23 09/08/23 History release Past Med/Surg History Medical History Abnormal MRI of head MRI 06/15/20 showed MCA infarcts as well as ring enhancement right posterior lobe. Repeat MRI recommended in 3 months. CAD (coronary artery disease) 2013 - NSTEMI s/p BRUCE to RCA Carotid stenosis, bilateral CKD (chronic kidney disease), stage III Depression DM type 2 (diabetes mellitus, type 2) Dyslipidemia Encounter for pre-operative examination History of cerebrovascular accident March 2020; subacute infarct noted to parietal lobe per 06/15/20 MRI Hypertension Ischemic cardiomyopathy EF=45% Surgical History Hx of endarterectomy (06/28/20) Right Carotid Endarterectomy with Bovine Patch Angioplasty Dr. Arita 06/28/2020 S/P drug eluting coronary stent placement Family History Mother , age 68 from metastatic lung cancer Lung cancer Father No problems noted. Social History Smoking Status: Current every day smoker Tobacco Type: Cigarettes Cigarettes Per Day: 5; Second Hand Exposure: No; Do You Dip or Chew Tobacco: No; Hx Alcohol Use: No Hx Substance Use: No Preferred Language: Citizen Of [place] Communication Ability: Effective Division Supervisor Required: No Beliefs That Will Affect Care: None marital status: Single Current Living Situation: Alone Current Living Situation Comment: friend current occupational status: previously employed current occupation: [employer] employee Other Information That Helps Us Care for You: No other: 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[employer], 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 Feels Safe at Home: Yes Assistive Devices: Walker Physical Exam Constitutional: + disheveled; no acute distress and + not well groomed Eyes: PERRL, conjunctivae normal, anicteric sclerae ENMT: external ear and nose normal, oropharynx normal Respiratory: normal respiratory effort; no respiratory distress Auscultation: + crackles (Bilateral, left > right) Cardiovascular: Rate/Rhythm: regular rate and regular rhythm Vessels: normal peripheral pulses Extremities: + edema (+2 pitting edema BLE) Gastrointestinal (Abdomen): Inspection/Auscultation: abdomen not distended Percussion/Palpation: + abdomen tender (Mild epigastric tenderness) and abdomen soft Musculoskeletal: no cyanosis or clubbing, extremities motor strength 5/5 Skin: no rashes, warm and dry Neurologic: PERRL, EOMI, accommodation nl, no face palsy, no dysarthria Psychiatric: Orientation: alert and oriented x 3 Affect: + flat affect Results & Data Results & Data Vital Signs (Past 12 Hours) Vital Signs Temp Pulse Pulse Resp BP BP Pulse Ox 09/08/23 14:20 156/112 H 100 09/08/23 14:10 83 L 09/08/23 14:00 102 H 83 L 09/08/23 13:50 100 09/08/23 13:40 88 L 09/08/23 13:30 88 L 09/08/23 12:40 95 09/08/23 12:35 93 09/08/23 13:46 99 H 16 197/111 H 98 09/08/23 12:05 197/123 H 09/08/23 11:58 106 H 18 93 09/08/23 11:50 106 H 23 93 09/08/23 11:40 106 H 19 91 09/08/23 11:30 103 H 14 97 09/08/23 11:20 103 H 29 H 97 09/08/23 11:10 103 H 20 100 09/08/23 11:00 103 H 43 H 100 09/08/23 10:50 103 H 15 100 09/08/23 10:40 103 H 49 H 100 09/08/23 10:30 104 H 46 H 100 09/08/23 10:20 106 H 48 H 100 09/08/23 10:10 107 H 34 H 09/08/23 10:00 106 H 29 H 09/08/23 09:50 105 H 47 H 09/08/23 09:40 105 H 22 100 09/08/23 09:39 105 H 19 100 09/08/23 10:01 105 H 09/08/23 09:49 09/08/23 09:44 36.8 C 105 H 19 179/116 H 100 O2 Del Method O2 Flow Rate 09/08/23 14:20 09/08/23 14:10 09/08/23 14:00 09/08/23 13:50 09/08/23 13:40 09/08/23 13:30 09/08/23 12:40 09/08/23 12:35 09/08/23 13:46 Nasal Cannula 2 09/08/23 12:05 09/08/23 11:58 09/08/23 11:50 09/08/23 11:40 09/08/23 11:30 09/08/23 11:20 09/08/23 11:10 09/08/23 11:00 09/08/23 10:50 09/08/23 10:40 09/08/23 10:30 09/08/23 10:20 09/08/23 10:10 09/08/23 10:00 09/08/23 09:50 09/08/23 09:40 09/08/23 09:39 09/08/23 10:01 09/08/23 09:49 Room Air 09/08/23 09:44 Room Air Laboratory Results Short CBC 09/08/23 Range/Units 10:00 WBC 13.86 H (4.8-10.8) K/ul Hgb 15.4 (14.0-18.0) g/dl Hct 45.0 (42.0-52.0) % Plt Count 236 (130-400) K/uL BMP 09/08/23 10:00 Sodium 133 L Potassium 4.5 Chloride 96 L Carbon Dioxide 22 BUN 26 H Creatinine 1.56 H Glucose 195 H Calcium 9.7 Liver Function 09/08/23 Range/Units 10:00 Total Bilirubin 3.4 H (0.2-1.0) mg/dl AST 55 H (13-39) U/L ALT 216 H (7-52) U/L Alkaline Phosphatase 81 (34-104) U/L Albumin 3.5 (3.4-5.0) gm/dl Urine 09/08/23 Range/Units Unknown Urine Color Dark Yellow Urine Appearance Clear (Clear) Urine pH 6.0 (4.5-7.5) Ur Specific [place] 1.017 (1.000-1.030) Urine Protein 1+ H (Negative) Urine Glucose (UA) Trace H (Negative) Diagnostic Findings Chest X-Ray 09/08/23 09:51 XR chest 1V portable HISTORY: 52 years-old Male Dyspnea acute shortness of breath COMPARISON: 08/20/2022 TECHNIQUE: AP view of the chest FINDINGS: Cardiac silhouette is enlarged. Pulmonary vascular congestion. Patchy bibasilar and lateral left midlung airspace opacities. No pneumothorax or large pleural effusion. Bones appear grossly intact. Atherosclerosis of the aorta. IMPRESSION: 1. Cardiomegaly with pulmonary vascular congestion. 2. Patchy bibasilar and midlung opacities suspicious for superimposed pneumonia. ACT 112: Negative or not required by law. The above report was generated using voice recognition software. It may contain grammatical, syntax or spelling errors. Electronically signed by: Rufino Jo M.D. 09/08/2023 10:35 AM Chest CTA 09/08/23 11:53 CT angio chest PE protocol CT DOSE: 756.37 mGy.cm HISTORY: 52 years-old Male with PE. Acute shortness of breath TECHNIQUE: Multiple CTA images of the chest were obtained after the intravenous administration of 114 ml Optiray. Coronal and sagittal MIPS were obtained from the axial data set and were submitted for review. All measurements were obtained according to NASCET criteria. A dose lowering technique was utilized adhering to the principles of ALARA. COMPARISON: Chest radiograph of same day FINDINGS: CTA: Marked cardiomegaly. Trace pericardial effusion. Extensive coronary artery calcifications. Atherosclerosis of the thoracic aorta without aneurysm. Aberrant right subclavian artery. There is limited evaluation of the subsegmental pulmonary arterial branches secondary to contrast bolus timing, notably within the lower lobes. Small bilateral subsegmental pulmonary emboli are noted bilaterally. No central pulmonary emboli or right heart strain identified. CT CHEST: No thyroid nodule identified. Nonspecific borderline enlarged mediastinal and hilar lymphadenopathy is likely reactive. Small left with moderate right pleural effusions. No pneumothorax. Intralobular septal thickening with intermixed groundglass densities and patchy multilobar distribution of peripheral consolidation, most pronounced within the lower lobes and left upper lobe. The largest area of consolidation measures up to 6.2 cm within the right lower lobe. The central airways are patent. Generalized body wall edema with upper abdominal ascites. Distal esophageal wall thickening. There is mild hepatic steatosis with probable hepatomegaly. No acute fracture identified. IMPRESSION: 1. Subsegmental bilateral pulmonary emboli. 2. Cardiomegaly with pulmonary edema, small left and moderate right pleural effusions. 3. Bilateral areas of wedge-shaped consolidation, most pronounced within the left upper and bilateral lower lobes may represent superimposed pneumonia versus pulmonary infarcts. 4. Anasarca with small volume of upper abdominal ascites. 5. Hepatic steatosis. ACT 112: Negative or not required by law. The above report was generated using voice recognition software. It may contain grammatical, syntax or spelling errors. Electronically signed by: Rufino Jo M.D. 09/08/2023 1:56 PM Supervising Physician Co-Signing Physician Notes I have seen and discussed the case with the collaborating DIESEL TRACTOR ENGINE MECHANIC I agree with the above H&P. I have reviewed and confirmed the patients medical history, the findings on physical examination, and the patients diagnosis and treatment plan with [facility] CRISTINA and agree with the information documented. In short, Mr. Bansal is a 52 year old gentleman with past medical history of hypertension, CABG, prior cva, carotid stenosis s/p CEA, DMTII, ongoing tobaccouse who presented to ED due to abdominal pain and lower leg swelling. Patient compares pain to prior pancreatitis flares. He notes mild SOB, but denies orthopnea/PNA, increase cough, etc. Patient denies any chest pain, palpitations. PE noteable for clear lung traylor, tachycardia, but otherwise regular rhythm, no mumurs, 3+ edema of BLE up to mid calf, tender epigastrum, slight distension of abdomen, but otherwise soft. VS with hypertension and mild tachycardia, satuating 100% on 2L NC. Labs with mild leukocytosis to 13, DDImer to 15,230, hyponatremia 133, Cr 1.56, elevated LFTs with TB 3.4, AST55,ALT 216, trop to 106, BNP 3001, lipase 179. Imaging involved CTA of chest with bilateral subsegmental emboli, no central or RHS noted. Hepatomegaly, ascites appreciated as well as marked cardiomegaly. Imaging also suggestive of pulm edema with ?infiltrate. PLan for the following: PE: heparin drip, dopplers of lower extremities Acute on chronic heart failure with preserved EF: currently on hydralazine, metoprolol, lisinopril and amlodpine. Discontinue amlopidine. Urgent ECHO. Plan for diuersis. Cr seens stable, resume lisinopril. Cardiology consult. Strict I/Os, daily weights. Abdominal pain, c/f pancreatitis: Trend CMP, obtain US, ?congestive component 2/2 HF Distal esophageal thickening: likely congestive?, contingent on improvement, consider gi Elevated Troponin: likely secondary to demand iso heart failure exacerbation [place] on tele. Rest of plan as above. (10) Hypertension Hypertension type: unspecified Qualified Code(s): I10 - Essential (primary) hypertension
[2023-09-08 15:48] LABS: INR 1.7 (0.9-1.1); Prothrombin Time 17.9 Seconds (9.0-12.0)
[2023-09-08] MEDS ORDERED: FUROSEMIDE INJ 20 MG/2 ML VIAL IV ONE (15:55)
[2023-09-08] MEDS: HEPARIN SODIUM/DEXTROSE 25,000 UNITS/500 ML BAG IV SCH (16:15)
[2023-09-08] MEDS: MoRPHine SULFATE 4 MG/ML 1 ML CARP\\VIAL IV PRN ×2 (16:58→21:43)
[2023-09-08] MEDS ORDERED: GLUCAGON FOR INJ 1 MG VIAL SQ PRN (17:29)
[2023-09-08] MEDS ORDERED: GLUCOSE 10 TAB/TUBE PO PRN (17:29)
[2023-09-08] MEDS ORDERED: CARBOHYDRATES FOR HYPOGLYCEMIA PO PRN (17:29)
[2023-09-08] MEDS ORDERED: GLUCOSE 40% GEL 15 GM TUBE PO PRN (17:29)
[2023-09-08] MEDS ORDERED: DEXTROSE 50% 50 ML SYRINGE IV PRN (17:29)
[2023-09-08] MEDS ORDERED: LABETALOL HCL IV 5 MG/ML 20ML IV ONE (17:43)
[2023-09-08] MEDS: DOXYCYCLINE HYCLATE 100 MG in DEXTROSE 5% MINI-B 100 ML IV SCH (18:41)
--- NOTE | 2023-09-08 18:45 | Cardiology Consultation ---
Date of Consultation September 08, 2023 Assessment & Plan (1) Ischemic cardiomyopathy: (2) Acute systolic CHF (congestive heart failure): (3) Pulmonary embolism: Plan * CT angiogram reveals subsegmental bilateral pulmonary emboli, enlargement of the cardiac silhouette also noted along with pulmonary edema and small left and moderate right pleural effusion * Anasarca noted with upper abdominal ascites on CTA, hepatic steatosis * Patient states that he has not had alcohol in over a year. * Echocardiogram with findings of inferior scar similar to previous, diffuse left ventricular hypokinesis noted otherwise, LVEF 27%, mild diffuse right ventricular hypokinesis noted as well. Compared to the previous echocardiogram performed in 2020, there has been an interval decline in the ejection fraction which was 55-60% at that time. Agree with cautious furosemide given creatinine which is trended up to 1.56 compared to his usual baseline which is 1-1.2. Elevated LFTs may be related to congestive hepatopathy. I question if the patient has just had generalized illness and has been bedridden for a number of weeks leading to development of pulmonary embolism. Would consider proceeding with lower extremity venous duplex to determine thrombus burden. Agree with anticoagulation with heparin. Troponin mildly elevated, flat trend, consistent with CHF. Agree with ongoing treatment with clopidogrel, metoprolol, lisinopril. We will titrate guideline directed medical therapy as hospitalization develops. History of Present Illness Attending Physician: Aissatou Jansen MD History of Present Illness Mr Bansal is a 52-year-old male seen in cardiology consultation per the request of CRISTINA Castle for evaluation of subjective symptoms of shortness of breath and echocardiogram findings of new severe biventricular systolic dysfunction. The patient has a history of multiple stroke events and had undergone right carotid endarterectomy in the setting of high-grade carotid stenosis performed on 06/28/2020 at [facility] by Dr Arita. He also has a history of coronary heart disease with an inferior ST segment elevation myocardial infarction in 2014 for which he underwent drug-eluting stent to the right coronary artery at that time. The patient describes generalized feelings of illness and to me he states that he has been basically chair and bedbound for at least the last month. He is somewhat of a poor historian but endorses lower extremity edema over the last few days. He denies any cami chest discomfort. Notes generalized weakness rather than dyspnea on exertion per my interview. Allergies Allergy/AdvReac Type Severity Reaction Status Date / Time No Known Allergies Allergy Verified 09/08/23 14:20 Home Medications Medication Instructions Recorded Confirmed Type clopidogrel 75 mg tablet (Plavix) 75 mg PO DAILY 06/05/21 09/08/23 History lisinopril 30 mg tablet 30 mg PO DAILY 06/05/21 09/08/23 History amlodipine 5 mg tablet 5 mg PO QAM PRN HTN 09/08/23 09/08/23 History atorvastatin 20 mg tablet 20 mg PO QAM 09/08/23 09/08/23 History escitalopram oxalate 5 mg tablet 5 mg PO DAILY 09/08/23 09/08/23 History hydralazine 25 mg tablet 25 mg PO TID 09/08/23 09/08/23 History metoprolol succinate 25 mg 12.5 mg PO DAILY 09/08/23 09/08/23 History tablet,extended release 24 hr omeprazole 40 mg capsule,delayed 40 mg PO QAM 09/08/23 09/08/23 History release Patient History Medical History Abnormal MRI of head MRI 06/15/20 showed MCA infarcts as well as ring enhancement right posterior lobe. Repeat MRI recommended in 3 months. CAD (coronary artery disease) 2013 - NSTEMI s/p BRUCE to RCA Carotid stenosis, bilateral CKD (chronic kidney disease), stage III Depression DM type 2 (diabetes mellitus, type 2) Dyslipidemia Encounter for pre-operative examination History of cerebrovascular accident March 2020; subacute infarct noted to parietal lobe per 06/15/20 MRI Hypertension Ischemic cardiomyopathy EF=45% Surgical History Hx of endarterectomy (06/28/20) Right Carotid Endarterectomy with Bovine Patch Angioplasty Dr. Arita 06/28/2020 S/P drug eluting coronary stent placement Family History Mother , age 68 from metastatic lung cancer Lung cancer Father No problems noted. 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 Constitutional: + weakness Cardiovascular: + edema Physical Exam Physical Exam: Temp Pulse Resp BP Pulse Ox O2 Del Method O2 Flow Rate 36.5 C 74 20 91/75 L 97 Nasal Cannula 2 09/08/23 17:32 09/08/23 18:21 09/08/23 18:14 09/08/23 18:21 09/08/23 18:14 09/08/23 18:14 09/08/23 18:14 Constitutional: + ill appearing (Chronically ill in appearance) Respiratory: Auscultation: + diminished lung sounds (Mildly reduced breath sounds at the bases); no crackles and no rales Cardiovascular: Rate/Rhythm: regular rate and regular rhythm Extremities: + edema (1+ bilateral lower extremity edema) Gastrointestinal (Abdomen): Abdomen is nontender, but mildly distended Neurologic: Conversant, no focal deficits Results & Data Laboratory Results Cardiac Enzymes 09/08/23 09/08/23 09/08/23 Range/Units 10:00 10:00 11:47 AST 55 H (13-39) U/L Troponin I High Sens 128.0 H* 106.3 H* (0-20) pg/ml B-Natriuretic Peptide 3001 H (0-100) pg/ml Coagulation 09/08/23 09/08/23 Range/Units 10:00 10:04 PT 17.9 H (9.0-12.0) Seconds B-Natriuretic Peptide 3001 H (0-100) pg/ml CBC 09/08/23 Range/Units 10:00 WBC 13.86 H (4.8-10.8) K/ul RBC 5.45 (4.70-6.10) M/uL Hgb 15.4 (14.0-18.0) g/dl Hct 45.0 (42.0-52.0) % Plt Count 236 (130-400) K/uL Neut # (Auto) 12.30 H (1.40-6.50) K/uL Lymph # (Auto) 0.69 L (1.20-3.40) K/uL [place] # (Auto) 0.77 H (0.11-0.59) K/uL Eos # (Auto) 0.00 (0.00-0.50) K/uL Baso # (Auto) 0.01 (0.00-0.20) K/uL Comprehensive Metabolic Panel 09/08/23 Range/Units 10:00 Sodium 133 L (136-145) mmol/L Potassium 4.5 (3.5-5.1) mmol/L Chloride 96 L (98-107) mmol/L Carbon Dioxide 22 (21-32) mmol/L BUN 26 H (6-23) mg/dl Creatinine 1.56 H (0.6-1.4) mg/dl Glucose 195 H (70-99(Fasting)) mg/dl Calcium 9.7 (8.6-10.3) mg/dl AST 55 H (13-39) U/L ALT 216 H (7-52) U/L Alkaline Phosphatase 81 (34-104) U/L Total Protein 6.7 (6.0-8.3) gm/dl Albumin 3.5 (3.4-5.0) gm/dl Intake and Output 09/08/23 09/08/23 09/08/23 06:59 14:59 22:59 Intake Total 1001.667 / 1001.667 0 / 1001.667 Balance 1001.667 / 1001.667 0 / 1001.667 Intake: IV 1001.667 / 1001.667 0 / 1001.667 Sodium Chloride 0.9% 1,000 ml @ 1000 / 1000 999 mls/hr IV .Q1H1M ONE Rx#: [id number] cefTRIAXone SODIUM 2,000 mg In 1.667 / 1.667 0 / 1.667 Dextrose 5 % Mini-B 50 ml @ 100 mls/hr IV NOW STA Rx#:[id number] Other: Weight 58.2 kg 58.2 kg Weight Measurement Method [facility] Patient Weight 09/09/23 06:59 Weight 58.2 kg Diagnostic Findings EKG performed today revealed sinus tachycardia 105 bpm, baseline artifact noted, poor R wave progression noted. Diffuse T wave flattening. Although the computer interpretation includes a prolonged QT interval, EKG is limited by artifact.
[2023-09-08] MEDS: INSULIN ASPART PER UNIT CHARGE SC SCH ×2 (18:52→20:56)
[2023-09-08] MEDS: PROCHLORPERAZINE 5 MG in SYRINGE 4 ML IV PRN (22:06)
[2023-09-08 23:56] LABS: Partial Thromboplastin Ratio 2.7
[2023-09-09 00:04] LABS: Partial Thromboplastin Time 76.6 Seconds (21.0-31.0)
[2023-09-09] MEDS: DOXYCYCLINE HYCLATE 100 MG in DEXTROSE 5% MINI-B 100 ML IV SCH ×2 (06:38→18:02)
--- NOTE | 2023-09-09 07:08 | Ultrasound Report ---
ABDOMINAL ULTRASOUND, RIGHT UPPER QUADRANT HISTORY: Acute nodule vomiting vomiting, elevated LFTs. COMPARISON: CTA chest of same day femoral ultrasound 06/16/2021. FINDINGS: Pancreas: The pancreas is mostly obscured by bowel gas. Liver: 15 cm in length with parenchymal heterogeneity and marginal nodularity. Mildly increased echog enicity. There is an indeterminate echogenic subcapsular lesion of the left hepatic lobe measuring 1. 3 x 1.6 x 1.7 cm. Patent portal vein. Gallbladder: Borderline wall thickening measuring 3 mm. No shadowing cholelithiasis. Negative sonogra phic Salazar sign. CBD: 0.8 cm. Right kidney: No hydronephrosis. 1.1 cm cyst of the inferior pole right kidney. Trace upper abdominal ascites. Slow venous flow within the IVC incidentally noted. IMPRESSION: 1. Heterogeneous liver with suggestion of mild hepatic steatosis and equivocal cirrhosis. 2. Trace upper abdominal ascites. 3. Indeterminate 1.7 cm echogenic left hepatic lobe lesion, possibly a hemangioma. 4. No cholelithiasis identified. ACT 112: Negative or not required by law. Electronically signed by: Rufino Jo M.D. 09/09/2023 7:06 AM
--- NOTE | 2023-09-09 07:17 | Ultrasound Report ---
BILATERAL LOWER EXTREMITY VENOUS DOPPLER HISTORY: Acute pain and swelling of the lower legs swelling, PE COMPARISON STUDY: 03/19/2020. FINDINGS: There is normal compressibility, flow, and augmentation within the bilateral lower extremit y deep venous systems. Subcutaneous edema limits the study. IMPRESSION: No DVT within the right or left lower extremity. ACT 112: Negative or not required by law. Electronically signed by: Rufino Jo M.D. 09/09/2023 7:15 AM
[2023-09-09 07:21] LABS: Hematocrit (blood only) 44.1 % (42.0-52.0); Hemoglobin 15.6 g/dl (14.0-18.0); Mean Corpuscular Hgb Conc 35.4 g/dL (32.0-36.0); Mean Platelet Volume 12.2 fL (9.4-12.4); Nucleated RBC # (auto) 0.05 K/uL (0.00-0.12); Nucleated RBC % (auto) 0.2 %; Platelet Count 294 K/uL (130-400); RDW Coefficient of Variation 18.1 % (11.5-14.5); RDW Standard Deviation 50.2 fL (36.4-46.3); Red Blood Count 5.38 M/uL (4.70-6.10); White Blood Count 23.01 K/ul (4.8-10.8)
[2023-09-09] MEDS: INSULIN ASPART PER UNIT CHARGE SC SCH ×4 (07:43→20:31)
[2023-09-09 08:20] LABS: Albumin Level 3.1 gm/dl (3.4-5.0); BUN Creatinine Ratio 18.1 (10-20); Bilirubin,Total 2.7 mg/dl (0.2-1.0); Creatinine Clr Calc Pharmacy 46.8 ml/min; Est GFR (African American) 48.4 ml/min; Est GFR (Non-African American) 41.8 ml/min; Potassium 4.4 mmol/L (3.5-5.1); Total Protein 6.1 gm/dl (6.0-8.3)
[2023-09-09] MEDS: PROCHLORPERAZINE 5 MG in SYRINGE 4 ML IV PRN (08:46)
[2023-09-09] MEDS: PANTOprazole 40 MG TAB PO SCH (08:47)
[2023-09-09] MEDS: MoRPHine SULFATE 4 MG/ML 1 ML CARP\\VIAL IV PRN ×2 (08:47→18:39)
[2023-09-09] MEDS: METOPROLOL SUCC 25MG EXT REL TAB PO SCH (08:48)
[2023-09-09] MEDS: CLOPIDOGREL BISULFATE 75 MG TAB PO SCH (08:49)
[2023-09-09] MEDS ORDERED: lisinopril 10 MG TAB PO SCH (09:00)
[2023-09-09 09:01] LABS: Partial Thromboplastin Ratio 2.1
[2023-09-09 09:02] LABS: Partial Thromboplastin Time 60.4 Seconds (21.0-31.0)
[2023-09-09 09:46] LABS: Estimated Average Glucose 154 mg/dl
--- NOTE | 2023-09-09 11:15 | Gastrointestinal Consultation ---
Date of Consultation September 09, 2023 Assessment & Plan (1) Pulmonary embolism: (2) Elevated LFTs: (3) Acute CHF: Pt is a 52 yo male admitted w bilateral PE +? pneumonia, CHF, seen for elevated LFTs. He has anasarca and small volume ascites. Liver ultrasound showed no gallbladder disease or stones. He does have equivocal cirrhosis and mild hepatic steatosis, 1.7cm liver lesion. Suspect elevated LFTs may be related to congestive hepatopathy vs infection. Will obtain serologies to r/o viral and infectious hepatitis, AIH. - Trend LFTs - AIH serologies, acute hepatitis panel, viral panel (CMV,EBV,Parvo,HSV) - IV antibx coverage for pneumonia - PE management per primary team - Appreciate Cardiology following - Avoid Hepatotoxic meds, no APAP >2g a day, advised to avoid ETOH - Will arrange f/u in GI clinic after DC to r/o cirrhosis using Fibroscan vs liver bx, obtain MRI liver imaging to leightoner characterize liver lesion Supervising Physician Co-Signing Physician Notes I have seen and examined the patient with CRISTINA Dyer whose note reflects our findings and plan. Patient with PE's, CHF, anasarca noted to have elevated LFTs likely related to congestion vs infxn. Serologies pending to r/o other potential causes. He will need an MRI of the liver once he has recovered from his acute illness and issues. This can be done as outpatient. Follow LFTs daily. History of Present Illness Reason for Consultation: Elevated LFTs Requesting Physician: Dr. Kian Iglesias Attending Physician: Dr. Ingrid Flaherty History of Present Illness Patient is a 52 years old male with past medical history is including diabetes mellitus type 2, ischemic cardiomyopathy, systolic CHF, GERD, CKD stage III, history of CVA, right carotid endarterectomy, CAD, NSTEMI 2013 s/p BRUCE to RCA, mood disorders wh presented to ED w c/o bilateral LE edemax 1 week and SOB. Found to be hypoxic on presentation w elevated levels WBC, Ddimer Troponin and BNP. CTA chest showed bilateral PE, pleural effusions ? pneumonia vs infarcts. No DVT on LE. He is currently on heparin drip. Continued on home Plavix. GI consulted for elevated LFTs: Total bilirubin 2.7, AST 43, ALT 149, alkaline phosphatase 74, lipase 179. Liver ultrasound showed heterogeneous liver with mild hepatic steatosis and equivocal cirrhosis. There is trace upper abdominal ascites and indeterminate 1.7 cm left hepatic lobe lesion, possible hemangioma. No cholelithiasis noted. Patient denies previous diagnosis of liver disease. Was admitted at [facility] for "bad pancreatitis" but unable to give me details. No known family history of AIH, other type of liver diseases or GI malignancies. He has tattoos. Smokes tobacco. Used to drink ETOH "heavily" however no ETOh since "years". Denies illicit drug uses. No new med/herbal supplements. Allergies Allergy/AdvReac Type Severity Reaction Status Date / Time No Known Allergies Allergy Verified 09/08/23 14:20 Home Medications Medication Instructions Recorded Confirmed Type clopidogrel 75 mg tablet (Plavix) 75 mg PO DAILY 06/05/21 09/08/23 History lisinopril 30 mg tablet 30 mg PO DAILY 06/05/21 09/08/23 History amlodipine 5 mg tablet 5 mg PO QAM PRN HTN 09/08/23 09/08/23 History atorvastatin 20 mg tablet 20 mg PO QAM 09/08/23 09/08/23 History escitalopram oxalate 5 mg tablet 5 mg PO DAILY 09/08/23 09/08/23 History hydralazine 25 mg tablet 25 mg PO TID 09/08/23 09/08/23 History metoprolol succinate 25 mg 12.5 mg PO DAILY 09/08/23 09/08/23 History tablet,extended release 24 hr omeprazole 40 mg capsule,delayed 40 mg PO QAM 09/08/23 09/08/23 History release Patient History Medical History Abnormal MRI of head MRI 06/15/20 showed MCA infarcts as well as ring enhancement right posterior lobe. Repeat MRI recommended in 3 months. CAD (coronary artery disease) 2013 - NSTEMI s/p BRUCE to RCA Carotid stenosis, bilateral CKD (chronic kidney disease), stage III Depression DM type 2 (diabetes mellitus, type 2) Dyslipidemia Encounter for pre-operative examination History of cerebrovascular accident March 2020; subacute infarct noted to parietal lobe per 06/15/20 MRI Hypertension Ischemic cardiomyopathy EF=45% Surgical History Hx of endarterectomy (06/28/20) Right Carotid Endarterectomy with Bovine Patch Angioplasty Dr. Arita 06/28/2020 S/P drug eluting coronary stent placement Family History Mother , age 68 from metastatic lung cancer Lung cancer Father No problems noted. 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[employer], 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 Feels Safe at Home: Yes Assistive Devices: Walker Review of Systems Review of Systems: All systems reviewed & are unremarkable except as noted in HPI & below Physical Exam Constitutional: WD/WN, vitals as above well groomed, cooperative and comfortable Eyes: PERRL, conjunctivae normal, anicteric sclerae ENMT: external ear and nose normal, oropharynx normal Respiratory: normal respiratory effort, lungs clear to auscultation Cardiovascular: RRR, no murmur, no edema Gastrointestinal (Abdomen): normal bowel sounds, soft, nontender, no hepatosplenomegaly Skin: no rashes, warm and dry no jaundice Psychiatric: A+Ox3, euthymic affect Lymphatic: + lymphedema Results & Data Vital Signs (Past 12 Hours) Vital Signs Temp Pulse Resp BP Pulse Ox O2 Del Method O2 Flow Rate 09/09/23 07:30 36.5 C 94 H 20 141/103 H 99 Nasal Cannula 5.0 09/09/23 04:07 36.3 C L 91 H 23 135/88 98 Nasal Cannula 5 09/08/23 23:20 36.4 C L 85 20 134/86 98 Nasal Cannula 5
[2023-09-09] MEDS: ISOSORBIDE DINITRATE 5 MG TAB PO SCH ×2 (11:30→17:56)
[2023-09-09] MEDS ORDERED: STAT IV Infusion **Titration per Protocol STA (12:00)
--- NOTE | 2023-09-09 12:06 | Cardiology Progress Note ---
Date of Service September 09, 2023 Assessment & Plan (1) Ischemic cardiomyopathy: (2) Acute systolic CHF (congestive heart failure): (3) Pulmonary embolism: (4) BRUNA (acute kidney injury): Plan * EKG performed 09/09/2023 at 7:41 AM, sinus rhythm at 94 bpm, age-indeterminate inferior infarct, age-indeterminate anterior infarct. No acute repolarization changes. IVCD noted. QTc 507 ms in the setting of IVCD * CT angiogram reveals subsegmental bilateral pulmonary emboli, enlargement of the cardiac silhouette also noted along with pulmonary edema and small left and moderate right pleural effusion * Anasarca noted with upper abdominal ascites on CTA, hepatic steatosis * Patient states that he has not had alcohol in over a year. * Echocardiogram with findings of inferior scar similar to previous, diffuse left ventricular hypokinesis noted otherwise, LVEF 27%, mild diffuse right ventricular hypokinesis noted as well. Compared to the previous echocardiogram performed in 2020, there has been an interval decline in the ejection fraction which was 55-60% at that time. Troponin elevated, flat trend, consistent with CHF rather than acute coronary syndrome. He certainly has risk factors for this being an ischemic cardiomyopathy with history of prior RCA territory scar on previous echocardiogram studies. Acute kidney injury noted with baseline creatinine of 1.2, was 1.56 on presentation yesterday and 1.82 today. He received 20 mg of IV furosemide, a dose of Toradol, and contrast. Continue heparin for subsegmental pulmonary emboli. Cautiously add milrinone infusion for inotropic support. Hold lisinopril due to BRUNA. Utilize hydralazine and Isordil for afterload reduction. DVT prophylaxis: On full dose anticoagulation with heparin, lower extremity venous duplex negative. Admission and Anticipated Discharge Date Admission Date: September 08, 2023 Subjective Patient seen in cardiology follow-up. No acute distress noted. Ill in appe [facility] ([place] Telemetry reveals sinus rhythm in the 80s. Blood pressure has been stable. He has a significant oxygen requirement, 5 L/min nasal cannula. Remains on heparin. Physical Exam Constitutional: + ill appearing (Chronically ill in appearance) Eyes: PERRL, conjunctivae normal, anicteric sclerae Respiratory: Auscultation: + diminished lung sounds (Mildly reduced breath sounds at the bases); no crackles and no rales Cardiovascular: Rate/Rhythm: regular rate and regular rhythm Extremities: + edema (1+ bilateral lower extremity edema) Gastrointestinal (Abdomen): Percussion/Palpation: + ascites Neurologic: Moves all 4 extremities on command, conversant Genitourinary: Rushing catheter in place draining clear yellow urine Results & Data Vital Signs (Past 12 Hours) Vital Signs Temp Pulse Resp BP Pulse Ox O2 Del Method O2 Flow Rate 09/09/23 11:15 36.5 C 83 18 116/75 100 Nasal Cannula 5.0 09/09/23 07:30 36.5 C 94 H 20 141/103 H 99 Nasal Cannula 5.0 09/09/23 04:07 36.3 C L 91 H 23 135/88 98 Nasal Cannula 5 Laboratory Results Cardiac Enzymes 09/08/23 09/08/23 09/09/23 Range/Units 11:47 18:13 00:43 AST Troponin I High Sens 106.3 H* 162.7 H* D 167.7 H* (0-20) pg/ml 09/09/23 09/09/23 Range/Units 06:25 07:46 AST Cancelled 43 H Troponin I High Sens (0-20) pg/ml Coagulation 09/08/23 09/08/23 09/09/23 Range/Units 10:04 22:44 06:25 PT 17.9 H (9.0-12.0) Seconds APTT 76.6 H* Cancelled (21.0-31.0) Seconds 09/09/23 Range/Units 07:46 PT (9.0-12.0) Seconds APTT 60.4 H* (21.0-31.0) Seconds CBC 09/09/23 Range/Units 06:25 WBC 23.01 H D (4.8-10.8) K/ul RBC 5.38 (4.70-6.10) M/uL Hgb 15.6 (14.0-18.0) g/dl Hct 44.1 (42.0-52.0) % Plt Count 294 (130-400) K/uL Comprehensive Metabolic Panel 09/09/23 09/09/23 Range/Units 06:25 07:46 Sodium Cancelled 134 L Potassium Cancelled 4.4 Chloride Cancelled 98 Carbon Dioxide Cancelled 27 BUN Cancelled 33 H Creatinine Cancelled 1.82 H Glucose Cancelled 70 Calcium Cancelled 9.0 AST Cancelled 43 H ALT Cancelled 149 H Alkaline Phosphatase Cancelled 74 Total Protein Cancelled 6.1 Albumin Cancelled 3.1 L
[2023-09-09] MEDS: MILRINONE LACTATE/D5W 20,000 MCG/100 ML BAG IV SCH (12:48)
[2023-09-09 13:19] LABS: Ferritin 91.4 ng/ml (8-388)
[2023-09-09 13:39] LABS: Iron < 10 mcg/dl (35-175)
--- NOTE | 2023-09-09 14:09 | Hospitalist Progress Note ---
Date of Service September 09, 2023 Assessment & Plan (1) Acute systolic CHF (congestive heart failure): Plan: Presented with increasing shortness of breath and lower extremity edema noted to be hypoxemic on room air Acute systolic heart failure with history of cardiomyopathy Received Lasix in the emergency room Appreciate cardiology input and recommendation Milrinone has been administered Clinically little better Pneumonia Patchy bibasilar infiltration on chest x-ray White count is noted to be increased Likely has bibasilar pneumonia Has been started on intravenous ceftriaxone and doxycycline Blood cultures have been taken (2) Ischemic cardiomyopathy: Plan: History of ischemic cardiomyopathy and noted to have EF of 27% Echo of the heart showed-inferior scar similar to previous, diffuse left ventricular hypokinesis with EF of 27%, mild diffuse right ventricular hypokinesis was noted as well. Significant changes compared to echo of 2020 (3) Hypoxia: Plan: Secondary to CHF and fluid overload (4) Pulmonary embolism: Plan: Noted to have pulmonary embolism No evidence of DVT Has been started on intravenous heparin (5) Elevated troponin: Plan: Admit to telemetry Patient presenting from home with reports of shortness of breath and lower extremity edema. History of ischemic cardiomyopathy with prior reduced EF, normalized on echo 06/2021. On presentation, hypoxic on room air at 88%, currently requiring 2 L of oxygen via nasal cannula to maintain saturations CTA chest shows subsegmental pulmonary embolism, cardiomegaly with pulmonary edema, small left and moderate right pleural effusion. Evidence of pneumonia vs. pulmonary infarct. Started on heparin drip in the ED Check BLLE dopplers Received communication from cardiology that patient has severe LV dysfunction on echo, formal report pending proBNP 3000 HS trop 128 -> 106, continue to trend Lasix 20 mg IV x 1 Continue beta-marcial and ACEi Given findings of possible pneumonia on CT, leukocytosis, elevated CRP, will treat empirically for pneumonia S/p IV ceftriaxone in the ED, continue with and add IV doxycycline Procalcitonin WNL Flu, COVID, RSV negative (6) Elevated LFTs: Plan: T. 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 labs (10) Hypertension: Plan: BP elevated on presentation, self resolving Continue home metoprolol, lisinopril, hydralazine for now Hold amlodipine given acute CHF. Patient typically only utilizes on a as needed basis. (11) Prolonged QT interval: Plan: QTc 541 Avoid QTc prolonging agents, daily EKG (12) CKD (chronic kidney disease), stage III: Plan: Baseline creatinine ~ 1.4 Creatinine 1.5 today Continue to monitor renal functions DVT PROPHYLAXIS On IV heparin Admission and Anticipated Discharge Date Admission Date: September 08, 2023 Subjective 09/09/2023 The patient was seen and examined in telemetry unit He has been feeling a little better since admission Decreasing shortness of breath, denies any pain, denies any nausea and or vomiting Review of Systems Review of Systems: All systems reviewed and are unremarkable except as noted below Physical Exam Physical Exam: Lying in bed comfortably Constitutional: well developed, well nourished, + ill appearing and average body habitus Eyes: PERRL, conjunctivae normal, anicteric sclerae ENMT: external ear and nose normal, oropharynx normal Neck: trachea midline, no thyromegaly Respiratory: + respiratory distress Auscultation: + diminished lung sounds Cardiovascular: Rate/Rhythm: regular rate and regular rhythm Heart Sounds: normal S1, normal S2 and + murmur Extremities: + edema (1+ edema bilaterally) Gastrointestinal (Abdomen): Inspection/Auscultation: normal bowel sounds; abdomen not distended Percussion/Palpation: abdomen soft; abdomen nontender Musculoskeletal: No acute arthritis involving any of the joint Neurologic: normal touch/pain/proprioception and moves all extremities; no focal motor deficits Psychiatric: A+Ox3, euthymic affect Lymphatic: no cervical or axillary lymphadenopathy Results & Data Results & Data Vital Signs (Past 12 Hours) Vital Signs Temp Pulse Resp BP Pulse Ox O2 Del Method O2 Flow Rate 09/09/23 11:15 36.5 C 83 18 116/75 100 Nasal Cannula 5.0 09/09/23 07:30 36.5 C 94 H 20 141/103 H 99 Nasal Cannula 5.0 09/09/23 04:07 36.3 C L 91 H 23 135/88 98 Nasal Cannula 5 Laboratory Results Short CBC 09/09/23 Range/Units 06:25 WBC 23.01 H D (4.8-10.8) K/ul Hgb 15.6 (14.0-18.0) g/dl Hct 44.1 (42.0-52.0) % Plt Count 294 (130-400) K/uL BMP 09/09/23 09/09/23 06:25 07:46 Sodium Cancelled 134 L Potassium Cancelled 4.4 Chloride Cancelled 98 Carbon Dioxide Cancelled 27 BUN Cancelled 33 H Creatinine Cancelled 1.82 H Glucose Cancelled 70 Calcium Cancelled 9.0 Liver Function 09/09/23 09/09/23 Range/Units 06:25 07:46 Total Bilirubin Cancelled 2.7 H AST Cancelled 43 H ALT Cancelled 149 H Alkaline Phosphatase Cancelled 74 Albumin Cancelled 3.1 L Medications Administered Current Inpatient Medications Acetaminophen (Acetaminophen 325 Mg Tab) 650 mg PO Q4H PRN PRN Reason: Pain or Fever Stop: 10/08/23 17:28 Clopidogrel Bisulfate (Clopidogrel Bisulfate 75 Mg Tab) 75 mg PO DAILY [facility]A Stop: 10/09/23 08:59 Last Admin: 09/09/23 08:49 Dose: 75 mg Dextrose (Dextrose 50% 50 Ml Syringe) 25 - 50 ml IV UD PRN; Protocol PRN Reason: Hypoglycemia Protocol Stop: 10/08/23 17:28 Glucagon (Glucagon For Inj 1 Mg Vial) 1 mg SQ UD PRN; Protocol PRN Reason: Hypoglycemia Protocol Stop: 10/08/23 17:28 Glucose (Glucose 10 Tab/Tube) 4 - 8 tab PO UD PRN; Protocol PRN Reason: Hypoglycemia Treatment Stop: 10/08/23 17:28 Glucose (Glucose 40% Gel 15 Gm Tube) 15 - 30 gm PO UD PRN; Protocol PRN Reason: Hypoglycemia Protocol Stop: 10/08/23 17:28 Hydralazine HCl (Hydralazine Hcl 25 Mg Tab) 25 mg PO TID [facility] Stop: 10/08/23 20:59 Heparin Sodium/Dextrose (Heparin Sodium/Dextrose) 25,000 units in 500 mls @ 20 mls/hr IV .Q24H [facility]; Protocol Stop: 10/08/23 14:29 Last Titration: 09/09/23 10:10 Dose: 1,000 units/hr, 20 mls/hr Prochlorperazine 5 mg/ Syringe 5 mls @ 5 mls/min IV Q6H PRN PRN Reason: Nausea And Vomiting Stop: 10/08/23 16:29 Last Admin: 09/09/23 08:46 Dose: 5 mls/min Ceftriaxone Sodium 1,000 mg/ (Dextrose) 50 mls @ 100 mls/hr IV Q24H [facility]; Protocol Stop: 09/16/23 13:59 Doxycycline Hyclate 100 mg/ (Dextrose) 100 mls @ 50 mls/hr IV Q12H [facility] Stop: 09/15/23 17:59 Last Infusion: 09/09/23 11:30 Dose: Infused Milrinone Lactate/Dextrose (Primacor/D5w) 20,000 mcg in 100 mls @ 2.361 mls/hr IV .Q24H [facility]; Protocol Stop: 10/09/23 11:59 Last Admin: 09/09/23 12:48 Dose: 0.1 mcg/kg/min, 2.4 mls/hr Insulin Aspart (Insulin Aspart Per Unit Charge) 0 units SC ACHS [facility] Stop: 10/08/23 17:28 Last Admin: 09/09/23 11:25 Dose: Not Given Isosorbide Dinitrate (Isosorbide Dinitrate 5 Mg Tab) 5 mg PO TID@0700,1200,1700 [facility] Stop: 10/09/23 11:59 Last Admin: 09/09/23 11:30 Dose: 5 mg Lisinopril (Lisinopril 10 Mg Tab) 30 mg PO DAILY [facility] Stop: 10/09/23 08:59 Last Admin: 09/09/23 08:49 Dose: 30 mg Metoprolol Succinate (Metoprolol Succ 25mg Ext Rel Tab) 12.5 mg PO DAILY [facility] Stop: 10/09/23 08:59 Last Admin: 09/09/23 08:48 Dose: 12.5 mg Miscellaneous (Carbohydrates For Hypoglycemia ) 15 - 30 gm PO UD PRN PRN Reason: Hypoglycemia Protocol Stop: 10/08/23 17:28 Last Admin: 09/09/23 11:40 Dose: 15 gm Morphine Sulfate (Morphine Sulfate 4 Mg/Ml 1 Ml Carp\Vial) 3 mg IV Q4H PRN PRN Reason: Pain Stop: 09/22/23 16:29 Last Admin: 09/09/23 08:47 Dose: 3 mg Pantoprazole Sodium (Pantoprazole 40 Mg Tab) 40 mg PO QAM [facility] Stop: 10/09/23 08:59 Last Admin: 09/09/23 08:47 Dose: 40 mg (10) Hypertension Hypertension type: unspecified Qualified Code(s): I10 - Essential (primary) hypertension
[2023-09-09] MEDS: cefTRIAXone SODIUM 1,000 MG in DEXTROSE 5 % MINI-B 50 ML IV SCH (15:46)
[2023-09-09] MEDS: hydrALAZINE HCL 25 MG TAB PO SCH ×2 (15:52→20:34)
[2023-09-09] MEDS: HEPARIN SODIUM/DEXTROSE 25,000 UNITS/500 ML BAG IV SCH (17:56)
[2023-09-10] MEDS: MoRPHine SULFATE 4 MG/ML 1 ML CARP\\VIAL IV PRN ×3 (01:06→19:55)
[2023-09-10] MEDS: MELATONIN 3 MG TAB PO PRN (01:07)
--- NOTE | 2023-09-10 05:52 | Electrocardiogram Report ---
Test Reason : Blood Pressure : / mmHG Vent. Rate : 105 BPM Atrial Rate : 105 BPM P-R Int : 192 ms QRS Dur : 088 ms QT Int : 410 ms P-R-T Axes : 082 115 -28 degrees QTc Int : 541 ms Sinus tachycardia Limb lead reversal Cannot rule out Anterior infarct (cited on or before 20-AUG-2022) Nonspecific T wave abnormality Prolonged QT Abnormal ECG When compared with ECG of 20-AUG-2022 06:31, Limb lead reversal is now present Nonspecific T wave abnormality is now Present Confirmed by Con Duong ([id number]) on 09/10/2023 5:52:30 AM Referred By: REFERRED SELF Confirmed By:Con Duong
[2023-09-10] MEDS: DOXYCYCLINE HYCLATE 100 MG in DEXTROSE 5% MINI-B 100 ML IV SCH ×2 (06:25→18:26)
[2023-09-10 07:13] LABS: Hematocrit (blood only) 39.5 % (42.0-52.0); Hemoglobin 13.7 g/dl (14.0-18.0); Mean Corpuscular Hemoglobin 28.5 pg (25.0-34.0); Mean Corpuscular Hgb Conc 34.7 g/dL (32.0-36.0); Mean Corpuscular Volume 82.3 fL (80.0-100.0); Mean Platelet Volume 10.3 fL (9.4-12.4); Nucleated RBC # (auto) 0.03 K/uL (0.00-0.12); Nucleated RBC % (auto) 0.2 %; Platelet Count 159 K/uL (130-400); RDW Coefficient of Variation 16.7 % (11.5-14.5); RDW Standard Deviation 49.4 fL (36.4-46.3); White Blood Count 15.74 K/ul (4.8-10.8)
[2023-09-10 07:36] LABS: BUN Creatinine Ratio 16.6 (10-20); Calcium 8.1 mg/dl (8.6-10.3); Creatinine Clr Calc Pharmacy 58.8 ml/min; Est GFR (African American) 63.7 ml/min; Potassium 3.6 mmol/L (3.5-5.1)
[2023-09-10 07:43] LABS: Basophils # (auto) 0.02 K/uL (0.00-0.20); Basophils % (auto) 0.1 %; Echinocytes 3+; Eosinophils # (auto) 0.05 K/uL (0.00-0.50); Eosinophils % (auto) 0.3 %; Immature Granulocytes # (auto) 0.11 K/uL (0.01-0.20); Immature Granulocytes % (auto) 0.7 %; Lymphocytes # (auto) 0.61 K/uL (1.20-3.40); Lymphocytes % (auto) 3.9 %; Monocytes # (auto) 0.53 K/uL (0.11-0.59); Monocytes % (auto) 3.4 %; Neutrophils # (auto) 14.42 K/uL (1.40-6.50); Neutrophils % (auto) 91.6 %
[2023-09-10 07:51] LABS: Partial Thromboplastin Ratio 2.1
[2023-09-10 07:53] LABS: Partial Thromboplastin Time 58.2 Seconds (21.0-31.0)
[2023-09-10 09:16] LABS: Albumin Level 2.5 gm/dl (3.4-5.0); Bilirubin Direct 1.6 mg/dl (0-0.2); Bilirubin,Total 2.5 mg/dl (0.2-1.0)
[2023-09-10] MEDS: PANTOprazole 40 MG TAB PO SCH (09:44)
[2023-09-10] MEDS: INSULIN ASPART PER UNIT CHARGE SC SCH ×4 (09:44→20:00)
[2023-09-10] MEDS: hydrALAZINE HCL 25 MG TAB PO SCH (09:45)
[2023-09-10] MEDS: CLOPIDOGREL BISULFATE 75 MG TAB PO SCH (09:45)
[2023-09-10] MEDS: METOPROLOL SUCC 25MG EXT REL TAB PO SCH ×2 (09:46→20:01)
[2023-09-10] MEDS ORDERED: POTASSIUM CHLORIDE 10 MEQ TABCR PO STA (12:44)
--- NOTE | 2023-09-10 12:48 | Cardiology Progress Note ---
Date of Service September 10, 2023 Assessment & Plan (1) Ischemic cardiomyopathy: (2) Acute systolic CHF (congestive heart failure): (3) Pulmonary embolism: (4) BRUNA (acute kidney injury): Plan -Continue heparin for subsegmental pulmonary embolism -Patient with low cardiac output symptoms prompting initiation of milrinone on 09/09/2023 creatinine subsequently improved from 1.8 to 1.45 mg/dL. -Holding oral nitrates, oral hydralazine, lisinopril, due to hypotension. -Increase metoprolol succinate to 12.5 mg twice daily -Increase milrinone infusion to 0.25 mg/kg/minute Iron deficiency noted. Patient has a history of homelessness. He states that he has been living independently in an apartment in [place]. Based on the condition of his fingernails, toenails, and feet, his self-care has been neglected. Question if abnormal liver function tests are due to congestive hepatopathy from underlying cardiomyopathy. Patient with past history of RCA territory [place]. Based on EKG, age-indeterminate inferior infarct and age undetermined anterior infarct patterns observed so likely at least some degree of ischemic component to his cardiomyopathy, although superimposed nonischemic component also possible. Continue chronic clopidogrel due to history of stroke, carotid rev ascularization, CAD. Admission and Anticipated Discharge Date Admission Date: September 08, 2023 Subjective Patient with ongoing subjective weakness. Generalized appearance slightly improved compared to yesterday. Remains on 3 L nasal cannula. Telemetry reveals sinus tachycardia at 100 bpm. Physical Exam Constitutional: + ill appearing (Chronically ill in appearance) Eyes: PERRL, conjunctivae normal, anicteric sclerae Respiratory: Auscultation: + diminished lung sounds (Mildly reduced breath sounds at the bases); no crackles and no rales Cardiovascular: Rate/Rhythm: regular rate and regular rhythm Extremities: + edema (1+ bilateral lower extremity edema) Gastrointestinal (Abdomen): Percussion/Palpation: + ascites Results & Data Vital Signs (Past 12 Hours) Vital Signs Temp Pulse Pulse Resp BP Pulse Ox O2 Del Method 09/10/23 11:26 37.2 C 102 H 20 105/64 92 Nasal Cannula 09/10/23 08:00 109 H 09/10/23 07:38 37.2 C 100 H 20 106/68 92 Nasal Cannula 09/10/23 07:45 Nasal Cannula 09/10/23 03:56 36.9 C 104 H 20 95/67 L 90 Nasal Cannula O2 Flow Rate 09/10/23 11:26 3.0 09/10/23 08:00 09/10/23 07:38 3.0 09/10/23 07:45 2 09/10/23 03:56 4 Laboratory Results Cardiac Enzymes 09/10/23 Range/Units 06:33 AST 34 (13-39) U/L Coagulation 09/10/23 Range/Units 06:33 APTT 58.2 H* (21.0-31.0) Seconds CBC 09/10/23 Range/Units 06:33 WBC 15.74 H (4.8-10.8) K/ul RBC 4.80 (4.70-6.10) M/uL Hgb 13.7 L (14.0-18.0) g/dl Hct 39.5 L (42.0-52.0) % Plt Count 159 (130-400) K/uL Neut # (Auto) 14.42 H (1.40-6.50) K/uL Lymph # (Auto) 0.61 L (1.20-3.40) K/uL [place] # (Auto) 0.53 (0.11-0.59) K/uL Eos # (Auto) 0.05 (0.00-0.50) K/uL Baso # (Auto) 0.02 (0.00-0.20) K/uL Comprehensive Metabolic Panel 09/10/23 Range/Units 06:33 Sodium 135 L (136-145) mmol/L Potassium 3.6 (3.5-5.1) mmol/L Chloride 101 (98-107) mmol/L Carbon Dioxide 28 (21-32) mmol/L BUN 24 H (6-23) mg/dl Creatinine 1.45 H D (0.6-1.4) mg/dl Glucose 101 H (70-99(Fasting)) mg/dl Calcium 8.1 L (8.6-10.3) mg/dl Direct Bilirubin 1.6 H (0-0.2) mg/dl AST 34 (13-39) U/L ALT 93 H (7-52) U/L Alkaline Phosphatase 66 (34-104) U/L Total Protein 5.0 L D (6.0-8.3) gm/dl Albumin 2.5 L (3.4-5.0) gm/dl
[2023-09-10] MEDS: cefTRIAXone SODIUM 1,000 MG in DEXTROSE 5 % MINI-B 50 ML IV SCH (13:12)
[2023-09-10] MEDS: MILRINONE LACTATE/D5W 20,000 MCG/100 ML BAG IV SCH (13:48)
[2023-09-10] MEDS: HEPARIN SODIUM/DEXTROSE 25,000 UNITS/500 ML BAG IV SCH (13:49)
--- NOTE | 2023-09-10 14:51 | Hospitalist Progress Note ---
Date of Service September 10, 2023 Assessment & Plan (1) Acute systolic CHF (congestive heart failure): Plan: Presented with increasing shortness of breath and lower extremity edema noted to be hypoxemic on room air Acute systolic heart failure with history of cardiomyopathy Received Lasix in the emergency room Appreciate cardiology input and recommendation Milrinone has been administered Clinically little better and denies any significant symptoms at rest Still requires more diuresis Pneumonia Patchy bibasilar infiltration on chest x-ray White count is noted to be increased Likely has bibasilar pneumonia Has been started on intravenous ceftriaxone and doxycycline Clinically better with improvement of white count and the patient remains afebrile without any shortness of breath (2) Ischemic cardiomyopathy: Plan: History of ischemic cardiomyopathy and noted to have EF of 27% Echo of the heart showed-inferior scar similar to previous, diffuse left ventricular hypokinesis with EF of 27%, mild diffuse right ventricular hypokinesis was noted as well. Significant changes compared to echo of 2020 (3) Hypoxia: Plan: Secondary to CHF and fluid overload (4) Pulmonary embolism: Plan: Noted to have pulmonary embolism No evidence of DVT Has been started on intravenous heparin (5) Elevated troponin: Plan: Admit to telemetry Patient presenting from home with reports of shortness of breath and lower extremity edema. History of ischemic cardiomyopathy with prior reduced EF, normalized on echo 06/2021. On presentation, hypoxic on room air at 88%, currently requiring 2 L of oxygen via nasal cannula to maintain saturations CTA chest shows subsegmental pulmonary embolism, cardiomegaly with pulmonary edema, small left and moderate right pleural effusion. Evidence of pneumonia vs. pulmonary infarct. Started on heparin drip in the ED Check BLLE dopplers-negative for any DVTs Received communication from cardiology that patient has severe LV dysfunction on echo, formal report pending proBNP 3000 HS trop 128 -> 106, continue to trend Lasix 20 mg IV x 1 Continue beta-marcial and ACEi Given findings of possible pneumonia on CT, leukocytosis, elevated CRP, will treat empirically for pneumonia S/p IV ceftriaxone in the ED, continue with and add IV doxycycline Procalcitonin WNL Flu, COVID, RSV negative (6) Elevated LFTs: Plan: T. 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 labs (10) Hypertension: Plan: BP elevated on presentation, self resolving Continue home metoprolol, lisinopril, hydralazine for now Hold amlodipine given acute CHF. Patient typically only utilizes on a as needed basis. Hold oral nitrates, hydralazine, lisinopril due to hypotension Metoprolol succinate dose has been increased to 12.5 mg twice daily (11) Prolonged QT interval: Plan: QTc 541 Avoid QTc prolonging agents, daily EKG (12) CKD (chronic kidney disease), stage III: Plan: Baseline creatinine ~ 1.4 Creatinine 1.5 today Continue to monitor renal functions DVT PROPHYLAXIS On IV heparin Admission and Anticipated Discharge Date Admission Date: September 08, 2023 Subjective 09/09/2023 The patient was seen and examined in telemetry unit He has been feeling a little better since admission Decreasing shortness of breath, denies any pain, denies any nausea and or vomiting 09/10/2023 The patient was seen and examined in telemetry unit He has been feeling better but has had urinary retention last night and required Rushing insertion Awaiting urology evaluation Denies any other significant symptoms Review of Systems Review of Systems: All systems reviewed and are unremarkable except as noted below Physical Exam Physical Exam: Lying in bed comfortably Constitutional: well developed, well nourished, + ill appearing and average body habitus Eyes: PERRL, conjunctivae normal, anicteric sclerae ENMT: external ear and nose normal, oropharynx normal Neck: trachea midline, no thyromegaly Respiratory: + respiratory distress Auscultation: + diminished lung sounds Cardiovascular: Rate/Rhythm: regular rate and regular rhythm Heart Sounds: normal S1, normal S2 and + murmur Extremities: + edema (1+ edema bilaterally) Gastrointestinal (Abdomen): Inspection/Auscultation: normal bowel sounds; a bdomen not distended Percussion/Palpation: abdomen soft; abdomen nontender Musculoskeletal: No acute arthritis involving any of the joint Neurologic: normal touch/pain/proprioception and moves all extremities; no focal motor deficits Psychiatric: A+Ox3, euthymic affect Lymphatic: no cervical or axillary lymphadenopathy Results & Data Results & Data Vital Signs (Past 12 Hours) Vital Signs Temp Pulse Pulse Resp BP Pulse Ox O2 Del Method 09/10/23 11:26 37.2 C 102 H 20 105/64 92 Nasal Cannula 09/10/23 08:00 109 H 09/10/23 07:38 37.2 C 100 H 20 106/68 92 Nasal Cannula 09/10/23 07:45 Nasal Cannula 09/10/23 03:56 36.9 C 104 H 20 95/67 L 90 Nasal Cannula O2 Flow Rate 09/10/23 11:26 3.0 09/10/23 08:00 09/10/23 07:38 3.0 09/10/23 07:45 2 09/10/23 03:56 4 Laboratory Results Short CBC 09/10/23 Range/Units 06:33 WBC 15.74 H (4.8-10.8) K/ul Hgb 13.7 L (14.0-18.0) g/dl Hct 39.5 L (42.0-52.0) % Plt Count 159 (130-400) K/uL BMP 09/10/23 06:33 Sodium 135 L Potassium 3.6 Chloride 101 Carbon Dioxide 28 BUN 24 H Creatinine 1.45 H D Glucose 101 H Calcium 8.1 L Liver Function 09/10/23 Range/Units 06:33 Total Bilirubin 2.5 H (0.2-1.0) mg/dl Direct Bilirubin 1.6 H (0-0.2) mg/dl AST 34 (13-39) U/L ALT 93 H (7-52) U/L Alkaline Phosphatase 66 (34-104) U/L Albumin 2.5 L (3.4-5.0) gm/dl Medications Administered Current Inpatient Medications Acetaminophen (Acetaminophen 325 Mg Tab) 650 mg PO Q4H PRN PRN Reason: Pain or Fever Stop: 10/08/23 17:28 Clopidogrel Bisulfate (Clopidogrel Bisulfate 75 Mg Tab) 75 mg PO DAILY YADIRA Stop: 10/09/23 08:59 Last Admin: 09/10/23 09:45 Dose: 75 mg Dextrose (Dextrose 50% 50 Ml Syringe) 25 - 50 ml IV UD PRN; Protocol PRN Reason: Hypoglycemia Protocol Stop: 10/08/23 17:28 Glucagon (Glucagon For Inj 1 Mg Vial) 1 mg SQ UD PRN; Protocol PRN Reason: Hypoglycemia Protocol Stop: 10/08/23 17:28 Glucose (Glucose 10 Tab/Tube) 4 - 8 tab PO UD PRN; Protocol PRN Reason: Hypoglycemia Treatment Stop: 10/08/23 17:28 Glucose (Glucose 40% Gel 15 Gm Tube) 15 - 30 gm PO UD PRN; Protocol PRN Reason: Hypoglycemia Protocol Stop: 10/08/23 17:28 Heparin Sodium/Dextrose (Heparin Sodium/Dextrose) 25,000 units in 500 mls @ 20 mls/hr IV .Q24H [facility]; Protocol Stop: 10/08/23 14:29 Last Admin: 09/10/23 13:49 Dose: 1,000 units/hr, 20 mls/hr Prochlorperazine 5 mg/ Syringe 5 mls @ 5 mls/min IV Q6H PRN PRN Reason: Nausea And Vomiting Stop: 10/08/23 16:29 Last Admin: 09/09/23 08:46 Dose: 5 mls/min Ceftriaxone Sodium 1,000 mg/ (Dextrose) 50 mls @ 100 mls/hr IV Q24H [facility]; Protocol Stop: 09/16/23 13:59 Last Infusion: 09/10/23 14:08 Dose: Infused Doxycycline Hyclate 100 mg/ (Dextrose) 100 mls @ 50 mls/hr IV Q12H [facility] Stop: 09/15/23 17:59 Last Infusion: 09/10/23 08:58 Dose: Infused Milrinone Lactate/Dextrose (Primacor/D5w) 20,000 mcg in 100 mls @ 5.902 mls/hr IV .[id number] [facility]; Protocol Stop: 10/09/23 11:59 Last Admin: 09/10/23 13:48 Dose: 0.25 mcg/kg/min, 5.9 mls/hr Insulin Aspart (Insulin Aspart Per Unit Charge) 0 units SC ACHS [facility] Stop: 10/08/23 17:28 Last Admin: 09/10/23 12:37 Dose: 1 units Lisinopril (Lisinopril 10 Mg Tab) 30 mg PO DAILY [facility] Stop: 10/09/23 08:59 Last Admin: 09/09/23 08:49 Dose: 30 mg Melatonin (Melatonin 3 Mg Tab) 6 mg PO HS PRN PRN Reason: Sleep Stop: 10/09/23 21:13 Last Admin: 09/10/23 01:07 Dose: 6 mg Metoprolol Succinate (Metoprolol Succ 25mg Ext Rel Tab) 12.5 mg PO BID [facility] Stop: 10/10/23 20:59 Miscellaneous (Carbohydrates For Hypoglycemia ) 15 - 30 gm PO UD PRN PRN Reason: Hypoglycemia Protocol Stop: 10/08/23 17:28 Last Admin: 09/09/23 11:40 Dose: 15 gm Morphine Sulfate (Morphine Sulfate 4 Mg/Ml 1 Ml Carp\Vial) 3 mg IV Q4H PRN PRN Reason: Pain Stop: 09/22/23 16:29 Last Admin: 09/10/23 13:12 Dose: 3 mg Pantoprazole Sodium (Pantoprazole 40 Mg Tab) 40 mg PO QAM [facility] Stop: 10/09/23 08:59 Last Admin: 09/10/23 09:44 Dose: 40 mg (10) Hypertension Hypertension type: unspecified Qualified Code(s): I10 - Essential (primary) hypertension
--- NOTE | 2023-09-10 16:59 | Urology Consultation ---
Date of Consultation September 10, 2023 Assessment & Plan (1) Acute urinary retention: Plan 52-year-old male admitted with pulmonary embolism, pneumonia, acute CHF. Patient developed urinary retention requiring Rushing catheter placement earlier today. Urology asked to evaluate patient for urinary retention. - Afebrile, Labs reviewedWBC 15.74, hemoglobin 13.7, creatinine 1.45. - Urinalysis 09/08/2023 without signs of infection or blood. - On ceftriaxone and doxycycline for treatment of pneumonia. - Rushing intact, draining clear yellow urine. - Urinary retention is currently managed with a Rushing catheter. - Recommend maintaining the Rushing catheter for at least 1 week to allow for bladder rest. - Will arrange outpatient follow-up with urology for continued care and voiding trial if the catheter is not removed before then. - Can consider addition of tamsulosin. - Urology will sign- off. Please contact with any further questions/concerns. History of Present Illness Attending Physician: Kian Iglesias MD History of Present Illness 52-year-old male with PMHx including DM type II, ischemic cardiomyopathy, systolic CHF, GERD, CKD stage III, history of CVA, right carotid endarterectomy, CAD, NSTEMI, depression, anxiety admitted with pulmonary embolism, pneumonia, acute CHF. Urology asked to evaluate patient for urinary retention. Per chart review, patient unable to void more than 50 mL of urine yesterday. Was bladder scanned for 700 mL and straight cathed for 625 mL. He was noted to have difficulty with urination again today and a Rushing catheter was placed by nursing. Patient examined at bedside today. Awake, sitting up in bedside chair on arrival. No acute distress. Rushing catheter intact, draining clear yellow urine. He denies prior urological history. Has never seen a urologist. Denies prior history of urinary retention. At baseline - He reports increasing issues with urination and slower/weak stream over the last few weeks. Some hesitancy. He denies hematuria or dysuria. Orange he was emptying his bladder completely. Nocturia 23. Denies urgency, frequency. Allergies Allergy/AdvReac Type Severity Reaction Status Date / Time No Known Allergies Allergy Verified 09/08/23 14:20 Home Medications Medication Instructions Recorded Confirmed Type clopidogrel 75 mg tablet (Plavix) 75 mg PO DAILY 06/05/21 09/08/23 History lisinopril 30 mg tablet 30 mg PO DAILY 06/05/21 09/08/23 History amlodipine 5 mg tablet 5 mg PO QAM PRN HTN 09/08/23 09/08/23 History atorvastatin 20 mg tablet 20 mg PO QAM 09/08/23 09/08/23 History escitalopram oxalate 5 mg tablet 5 mg PO DAILY 09/08/23 09/08/23 History hydralazine 25 mg tablet 25 mg PO TID 09/08/23 09/08/23 History metoprolol succinate 25 mg 12.5 mg PO DAILY 09/08/23 09/08/23 History tablet,extended release 24 hr omeprazole 40 mg capsule,delayed 40 mg PO QAM 09/08/23 09/08/23 History release Patient History Medical History Abnormal MRI of head MRI 06/15/20 showed MCA infarcts as well as ring enhancement right posterior lobe. Repeat MRI recommended in 3 months. CAD (coronary artery disease) 2013 - NSTEMI s/p BRUCE to RCA Carotid stenosis, bilateral CKD (chronic kidney disease), stage III Depression DM type 2 (diabetes mellitus, type 2) Dyslipidemia Encounter for pre-operative examination History of cerebrovascular accident March 2020; subacute infarct noted to parietal lobe per 06/15/20 MRI Hypertension Ischemic cardiomyopathy EF=45% Surgical History Hx of endarterectomy (06/28/20) Right Carotid Endarterectomy with Bovine Patch Angioplasty Dr. Arita 06/28/2020 S/P drug eluting coronary stent placement Family History Mother , age 68 from metastatic lung cancer Lung cancer Father No problems noted. 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[employer], 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 Feels Safe at Home: Yes Assistive Devices: None Review of Systems Review of Systems: All systems reviewed & are unremarkable except as noted in HPI & below Physical Exam Constitutional: well developed and well nourished; no acute distress Neck: normal visual inspection Respiratory: normal respiratory effort; no respiratory distress and no labored breathing Musculoskeletal: Head/Neck/Chest: normocephalic Skin: No visible rashes or lesions to exposed skin areas Neurologic: moves all extremities and awake Psychiatric: A+Ox3, euthymic affect Genitourinary: Rushing catheter intact, urine is clear yellow Results & Data Vital Signs (Past 12 Hours) Vital Signs Temp Pulse Pulse Resp BP Pulse Ox O2 Del Method 09/10/23 16:20 99 H 09/10/23 11:26 37.2 C 102 H 20 105/64 92 Nasal Cannula 09/10/23 08:00 109 H 09/10/23 07:38 37.2 C 100 H 20 106/68 92 Nasal Cannula 09/10/23 07:45 Nasal Cannula O2 Flow Rate 09/10/23 16:20 09/10/23 11:26 3.0 09/10/23 08:00 09/10/23 07:38 3.0 09/10/23 07:45 2 PG Care Time/CCT Total # of Minutes Spent Total Time Spent with Patient: Total time spent is greater than 50% in coordination of care (as documented) at patient's floor/unit and/or counseling patient: Coding Level of Care Code 68736 IN/OBS CONSULT LVL 3,45M Diagnoses Acute urinary retention R33.8
--- NOTE | 2023-09-11 05:51 | Electrocardiogram Report ---
Test Reason : Blood Pressure : / mmHG Vent. Rate : 094 BPM Atrial Rate : 094 BPM P-R Int : 192 ms QRS Dur : 106 ms QT Int : 392 ms P-R-T Axes : 072 005 093 degrees QTc Int : 491 ms Normal sinus rhythm Biatrial enlargement Inferior infarct , age undetermined Possible Anterior infarct (cited on or before 20-AUG-2022) Prolonged QT Abnormal ECG When compared with ECG of 08-SEP-2023 09:39, Limb lead reversal is no longer Present Inferior infarct is now Present Confirmed by Con Duong ([id number]) on 09/11/2023 5:51:29 AM Referred By: REFERRED SELF Confirmed By:Con Duong
[2023-09-11] MEDS: DOXYCYCLINE HYCLATE 100 MG in DEXTROSE 5% MINI-B 100 ML IV SCH ×2 (06:01→18:44)
[2023-09-11] MEDS: MILRINONE LACTATE/D5W 20,000 MCG/100 ML BAG IV SCH ×2 (06:01→23:55)
[2023-09-11 06:34] LABS: Hematocrit (blood only) 39.2 % (42.0-52.0); Hemoglobin 13.2 g/dl (14.0-18.0); Mean Corpuscular Hemoglobin 27.9 pg (25.0-34.0); Mean Corpuscular Hgb Conc 33.7 g/dL (32.0-36.0); Mean Corpuscular Volume 82.9 fL (80.0-100.0); Mean Platelet Volume 10.3 fL (9.4-12.4); Platelet Count 146 K/uL (130-400); RDW Coefficient of Variation 16.3 % (11.5-14.5); RDW Standard Deviation 49.3 fL (36.4-46.3); Red Blood Count 4.73 M/uL (4.70-6.10); White Blood Count 18.48 K/ul (4.8-10.8)
[2023-09-11 06:37] LABS: Albumin Globulin Ratio 0.9 (0.9-2); Albumin Level 2.4 gm/dl (3.4-5.0); BUN Creatinine Ratio 12.7 (10-20); Bilirubin,Total 2.6 mg/dl (0.2-1.0); Calcium 7.8 mg/dl (8.6-10.3); Est GFR (African American) 65.4 ml/min; Est GFR (Non-African American) 56.4 ml/min; Globulin 2.6 gm/dl (2.5-4.0); Magnesium 1.8 mg/dl (1.7-2.4); Potassium 3.7 mmol/L (3.5-5.1)
[2023-09-11 06:55] LABS: Folate (Folic Acid),Ser orPlas 7.69 ng/ml (>5.38)
[2023-09-11 06:56] LABS: Partial Thromboplastin Ratio 1.9; Vitamin B12 > 1500 pg/ml (180-914)
[2023-09-11 06:57] LABS: Partial Thromboplastin Time 54.2 Seconds (21.0-31.0)
[2023-09-11 07:03] LABS: Basophils # (auto) 0.02 K/uL (0.00-0.20); Basophils % (auto) 0.1 %; Eosinophils # (auto) 0.03 K/uL (0.00-0.50); Eosinophils % (auto) 0.2 %; Immature Granulocytes # (auto) 0.13 K/uL (0.01-0.20); Immature Granulocytes % (auto) 0.7 %; Lymphocytes # (auto) 0.67 K/uL (1.20-3.40); Lymphocytes % (auto) 3.6 %; Monocytes # (auto) 0.87 K/uL (0.11-0.59); Monocytes % (auto) 4.7 %; Neutrophils # (auto) 16.76 K/uL (1.40-6.50); Neutrophils % (auto) 90.7 %
[2023-09-11] MEDS: INSULIN ASPART PER UNIT CHARGE SC SCH ×4 (09:12→21:08)
[2023-09-11] MEDS: MoRPHine SULFATE 4 MG/ML 1 ML CARP\\VIAL IV PRN ×3 (09:13→21:27)
[2023-09-11] MEDS: CLOPIDOGREL BISULFATE 75 MG TAB PO SCH (09:14)
[2023-09-11] MEDS: METOPROLOL SUCC 25MG EXT REL TAB PO SCH ×2 (09:16→21:07)
[2023-09-11] MEDS: PANTOprazole 40 MG TAB PO SCH (09:16)
[2023-09-11] MEDS ORDERED: POTASSIUM CHLORIDE CRTAB 20 MEQ TABCR PO STA (09:34)
[2023-09-11] MEDS ORDERED: FUROSEMIDE INJ 20 MG/2 ML VIAL IV ONE (11:20)
--- NOTE | 2023-09-11 11:21 | Cardiology Progress Note ---
Date of Service September 11, 2023 Assessment & Plan (1) Ischemic cardiomyopathy: (2) Acute systolic CHF (congestive heart failure): (3) Pulmonary embolism: (4) BRUNA (acute kidney injury): Plan Patient with past history of RCA territory CA. Based on EKG, age-indeterminate inferior infarct and age undetermined anterior infarct patterns observed so likely at least some degree of ischemic component to his cardiomyopathy, although superimposed nonischemic component also possible. LVEF 27% down from 45% a few years ago. -Continue heparin for subsegmental pulmonary embolism -Patient with low cardiac output symptoms prompting initiation of milrinone on 09/09/2023 creatinine subsequently improved from 1.8 to 1.45 --> 1.42 mg/dL. -Holding oral nitrates, oral hydralazine, lisinopril, due to hypotension. -metoprolol succinate to 12.5 mg twice daily -Increased milrinone infusion to 0.25 mg/kg/minute on 09/10/23. -Add furosemide 20 mg IV x 1 now and then BID. -Supplement potassium. Continue chronic clopidogrel due to history of stroke, carotid revascularization, CAD. Question if abnormal liver function tests are due to congestive hepatopathy from underlying cardiomyopathy. Dr Lois barreto on 09/12/23. Admission and Anticipated Discharge Date Admission Date: September 08, 2023 Subjective Patient seen in follow up. He feels improved compared to admission , but still with generalized ill feeling. Rushing catheter placed on 09/10/23 for urinary retention an is draining clear yellow urine. Telemetry reveals sinus tachycardia at 100-110 bpm. Physical Exam Constitutional: + ill appearing (Chronically ill in appearance) Eyes: PERRL, conjunctivae normal, anicteric sclerae Respiratory: Auscultation: + diminished lung sounds (Mildly reduced breath sounds at the bases); no crackles and no rales Cardiovascular: Rate/Rhythm: regular rate and regular rhythm Extremities: + edema (1+ bilateral lower extremity edema) Gastrointestinal (Abdomen): Percussion/Palpation: + ascites Neurologic: PERRL, EOMI, accommodation nl, no face palsy, no dysarthria Results & Data Vital Signs (Past 12 Hours) Vital Signs Temp Pulse Pulse Resp BP Pulse Ox O2 Del Method 09/11/23 08:00 Nasal Cannula 09/11/23 07:45 36.9 C 104 H 20 118/76 93 Nasal Cannula 09/11/23 07:16 101 H 09/11/23 03:13 36.4 C L 106 H 16 116/74 90 Nasal Cannula O2 Flow Rate 09/11/23 08:00 5 09/11/23 07:45 5.0 09/11/23 07:16 09/11/23 03:13 5 Laboratory Results Cardiac Enzymes 09/11/23 Range/Units 06:00 AST 29 (13-39) U/L Coagulation 09/11/23 Range/Units 06:00 APTT 54.2 H* (21.0-31.0) Seconds CBC 09/11/23 Range/Units 06:00 WBC 18.48 H (4.8-10.8) K/ul RBC 4.73 (4.70-6.10) M/uL Hgb 13.2 L (14.0-18.0) g/dl Hct 39.2 L (42.0-52.0) % Plt Count 146 (130-400) K/uL Neut # (Auto) 16.76 H (1.40-6.50) K/uL Lymph # (Auto) 0.67 L (1.20-3.40) K/uL Wetzel # (Auto) 0.87 H (0.11-0.59) K/uL Eos # (Auto) 0.03 (0.00-0.50) K/uL Baso # (Auto) 0.02 (0.00-0.20) K/uL Comprehensive Metabolic Panel 09/11/23 Range/Units 06:00 Sodium 135 L (136-145) mmol/L Potassium 3.7 (3.5-5.1) mmol/L Chloride 101 (98-107) mmol/L Carbon Dioxide 30 (21-32) mmol/L BUN 18 (6-23) mg/dl Creatinine 1.42 H (0.6-1.4) mg/dl Glucose 170 H (70-99(Fasting)) mg/dl Calcium 7.8 L (8.6-10.3) mg/dl AST 29 (13-39) U/L ALT 66 H (7-52) U/L Alkaline Phosphatase 76 (34-104) U/L Total Protein 5.0 L (6.0-8.3) gm/dl Albumin 2.4 L (3.4-5.0) gm/dl
[2023-09-11] MEDS: HEPARIN SODIUM/DEXTROSE 25,000 UNITS/500 ML BAG IV SCH (14:03)
[2023-09-11] MEDS: cefTRIAXone SODIUM 1,000 MG in DEXTROSE 5 % MINI-B 50 ML IV SCH (14:03)
--- NOTE | 2023-09-11 15:02 | Hospitalist Progress Note ---
Date of Service September 11, 2023 Assessment & Plan (1) Acute systolic CHF (congestive heart failure): Plan: Presented with increasing shortness of breath and lower extremity edema noted to be hypoxemic on room air Acute systolic heart failure with history of cardiomyopathy Received Lasix in the emergency room Appreciate cardiology input and recommendation Milrinone has been administered Clinically little better and denies any significant symptoms at rest Still requires more diuresis Milrinone drip has been increased to 0.25 mg/kg/min and Lasix 20 mg intravenously has been added with supplemental potassium He remains stable and needs more diuresis Pneumonia Patchy bibasilar infiltration on chest x-ray White count is noted to be increased Likely has bibasilar pneumonia Has been started on intravenous ceftriaxone and doxycycline Clinically better with improvement of white count and the patient remains afebrile without any shortness of breath White count remains elevated at 18.48. He has been feeling better and does not have any fever We will continue current antibiotic (2) Ischemic cardiomyopathy: Plan: History of ischemic cardiomyopathy and noted to have EF of 27% Echo of the heart showed-inferior scar similar to previous, diffuse left ventricular hypokinesis with EF of 27%, mild diffuse right ventricular hypokinesis was noted as well. Significant changes compared to echo of 2020 No chest pain and her palpitation (3) Hypoxia: Plan: Secondary to CHF and fluid overload (4) Pulmonary embolism: Plan: Noted to have pulmonary embolism No evidence of DVT Has been started on intravenous heparin (5) Elevated troponin: Plan: Admit to telemetry Patient presenting from home with reports of shortness of breath and lower extremity edema. History of ischemic cardiomyopathy with prior reduced EF, normalized on echo 06/2021. On presentation, hypoxic on room air at 88%, currently requiring 2 L of oxygen via nasal cannula to maintain saturations CTA chest shows subsegmental pulmonary embolism, cardiomegaly with pulmonary edema, small left and moderate right pleural effusion. Evidence of pneumonia vs. pulmonary infarct. Started on heparin drip in the ED Check BLLE dopplers-negative for any DVTs Received communication from cardiology that patient has severe LV dysfunction on echo, formal report pending proBNP 3000 HS trop 128 -> 106, continue to trend Lasix 20 mg IV x 1 Continue beta-marcial and hold lisinopril, hydralazine and nitrate due to hypotension Given findings of possible pneumonia on CT, leukocytosis, elevated CRP, will treat empirically for pneumonia S/p IV ceftriaxone in the ED, continue with and add IV doxycycline Procalcitonin WNL Flu, COVID, RSV negative (6) Elevated LFTs: Plan: T. 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 labs (10) Hypertension: Plan: BP elevated on presentation, self resolving Continue home metoprolol, lisinopril, hydralazine for now Hold amlodipine given acute CHF. Patient typically only utilizes on a as needed basis. Hold oral nitrates, hydralazine, lisinopril due to hypotension Metoprolol succinate dose has been increased to 12.5 mg twice daily (11) Prolonged QT interval: Plan: QTc 541 Avoid QTc prolonging agents, daily EKG (12) CKD (chronic kidney disease), stage III: Plan: Baseline creatinine ~ 1.4 Creatinine 1.5 today Continue to monitor renal functions DVT PROPHYLAXIS On IV heparin Admission and Anticipated Discharge Date Admission Date: September 08, 2023 Subjective 09/09/2023 The patient was seen and examined in telemetry unit He has been feeling a little better since admission Decreasing shortness of breath, denies any pain, denies any nausea and or vomiting 09/10/2023 The patient was seen and examined in telemetry unit He has been feeling better but has had urinary retention last night and required Rushing insertion Awaiting urology evaluation Denies any other significant symptoms 09/11/2023 The patient was seen and examined in telemetry unit He has been feeling a little better Enrrique very weak and lethargic and has not been out of bed Denies any shortness of breath at rest Review of Systems Review of Systems: All systems reviewed and are unremarkable except as noted below Physical Exam Physical Exam: Lying in bed comfortably Constitutional: well developed, well nourished, + ill appearing and average body habitus Eyes: PERRL, conjunctivae normal, anicteric sclerae ENMT: external ear and nose normal, oropharynx normal Neck: trachea midline, no thyromegaly Respiratory: + respiratory distress Auscultation: + diminished lung sounds Cardiovascular: Rate/Rhythm: regular rate and regular rhythm Heart Sounds: normal S1, normal S2 and + murmur Extremities: + edema (1+ edema bilaterally) Gastrointestinal (Abdomen): Inspection/Auscultation: normal bowel sounds; abdomen not distended Percussion/Palpation: abdomen soft; abdomen nontender Neurologic: normal touch/pain/proprioception and moves all extremities; no focal motor deficits Psychiatric: A+Ox3, euthymic affect Lymphatic: no cervical or axillary lymphadenopathy Results & Data Results & Data Vital Signs (Past 12 Hours) Vital Signs Temp Pulse Pulse Resp BP Pulse Ox O2 Del Method 09/11/23 11:45 37.1 C 102 H 18 108/70 94 Nasal Cannula 09/11/23 08:00 Nasal Cannula 09/11/23 07:45 36.9 C 104 H 20 118/76 93 Nasal Cannula 09/11/23 07:16 101 H 09/11/23 03:13 36.4 C L 106 H 16 116/74 90 Nasal Cannula O2 Flow Rate 09/11/23 11:45 2 09/11/23 08:00 5 09/11/23 07:45 5.0 09/11/23 07:16 09/11/23 03:13 5 Laboratory Results Short CBC 09/11/23 Range/Units 06:00 WBC 18.48 H (4.8-10.8) K/ul Hgb 13.2 L (14.0-18.0) g/dl Hct 39.2 L (42.0-52.0) % Plt Count 146 (130-400) K/uL BMP 09/11/23 06:00 Sodium 135 L Potassium 3.7 Chloride 101 Carbon Dioxide 30 BUN 18 Creatinine 1.42 H Glucose 170 H Calcium 7.8 L Liver Function 09/11/23 Range/Units 06:00 Total Bilirubin 2.6 H (0.2-1.0) mg/dl AST 29 (13-39) U/L ALT 66 H (7-52) U/L Alkaline Phosphatase 76 (34-104) U/L Albumin 2.4 L (3.4-5.0) gm/dl Medications Administered Current Inpatient Medications Acetaminophen (Acetaminophen 325 Mg Tab) 650 mg PO Q4H PRN PRN Reason: Pain or Fever Stop: 10/08/23 17:28 Clopidogrel Bisulfate (Clopidogrel Bisulfate 75 Mg Tab) 75 mg PO DAILY YADIRA Stop: 10/09/23 08:59 Last Admin: 09/11/23 09:14 Dose: 75 mg Dextrose (Dextrose 50% 50 Ml Syringe) 25 - 50 ml IV UD PRN; Protocol PRN Reason: Hypoglycemia Protocol Stop: 10/08/23 17:28 Furosemide (Furosemide Inj 20 Mg/2 Ml Vial) 20 mg IV [id number] YADIRA Stop: 10/11/23 16:59 Glucagon (Glucagon For Inj 1 Mg Vial) 1 mg SQ UD PRN; Protocol PRN Reason: Hypoglycemia Protocol Stop: 10/08/23 17:28 Glucose (Glucose 10 Tab/Tube) 4 - 8 tab PO UD PRN; Protocol PRN Reason: Hypoglycemia Treatment Stop: 10/08/23 17:28 Glucose (Glucose 40% Gel 15 Gm Tube) 15 - 30 gm PO UD PRN; Protocol PRN Reason: Hypoglycemia Protocol Stop: 10/08/23 17:28 Heparin Sodium/Dextrose (Heparin Sodium/Dextrose) 25,000 units in 500 mls @ 20 mls/hr IV .Q24H YADIRA; Protocol Stop: 10/08/23 14:29 Last Admin: 09/11/23 14:03 Dose: 1,000 units/hr, 20 mls/hr Prochlorperazine 5 mg/ Syringe 5 mls @ 5 mls/min IV Q6H PRN PRN Reason: Nausea And Vomiting Stop: 10/08/23 16:29 Last Admin: 09/09/23 08:46 Dose: 5 mls/min Ceftriaxone Sodium 1,000 mg/ (Dextrose) 50 mls @ 100 mls/hr IV Q24H YADIRA; Protocol Stop: 09/16/23 13:59 Last Infusion: 09/11/23 14:40 Dose: Infused Doxycycline Hyclate 100 mg/ (Dextrose) 100 mls @ 50 mls/hr IV Q12H YADIRA Stop: 09/15/23 17:59 Last Infusion: 09/11/23 08:05 Dose: Infused Milrinone Lactate/Dextrose (Primacor/D5w) 20,000 mcg in 100 mls @ 5.902 mls/hr IV .[id number] [facility]; Protocol Stop: 10/09/23 11:59 Last Admin: 09/11/23 06:01 Dose: 0.25 mcg/kg/min, 5.9 mls/hr Insulin Aspart (Insulin Aspart Per Unit Charge) 0 units SC ACHS [facility] Stop: 10/08/23 17:28 Last Admin: 09/11/23 11:52 Dose: 6 units Lisinopril (Lisinopril 10 Mg Tab) 30 mg PO DAILY [facility] Stop: 10/09/23 08:59 Last Admin: 09/09/23 08:49 Dose: 30 mg Melatonin (Melatonin 3 Mg Tab) 6 mg PO HS PRN PRN Reason: Sleep Stop: 10/09/23 21:13 Last Admin: 09/10/23 01:07 Dose: 6 mg Metoprolol Succinate (Metoprolol Succ 25mg Ext Rel Tab) 12.5 mg PO BID [facility] Stop: 10/10/23 20:59 Last Admin: 09/11/23 09:16 Dose: 12.5 mg Miscellaneous (Carbohydrates For Hypoglycemia ) 15 - 30 gm PO UD PRN PRN Reason: Hypoglycemia Protocol Stop: 10/08/23 17:28 Last Admin: 09/09/23 11:40 Dose: 15 gm Morphine Sulfate (Morphine Sulfate 4 Mg/Ml 1 Ml Carp\Vial) 3 mg IV Q4H PRN PRN Reason: Pain Stop: 09/22/23 16:29 Last Admin: 09/11/23 09:13 Dose: 3 mg Pantoprazole Sodium (Pantoprazole 40 Mg Tab) 40 mg PO QAM [facility] Stop: 10/09/23 08:59 Last Admin: 09/11/23 09:16 Dose: 40 mg (10) Hypertension Hypertension type: unspecified Qualified Code(s): I10 - Essential (primary) hypertension
[2023-09-11] MEDS: PROCHLORPERAZINE 5 MG in SYRINGE 4 ML IV PRN (16:26)
[2023-09-11] MEDS: FUROSEMIDE INJ 20 MG/2 ML VIAL IV SCH (16:26)
--- NOTE | 2023-09-11 20:59 | Electrocardiogram Report ---
Test Reason : Blood Pressure : / mmHG Vent. Rate : 102 BPM Atrial Rate : 102 BPM P-R Int : 190 ms QRS Dur : 104 ms QT Int : 370 ms P-R-T Axes : 045 -30 126 degrees QTc Int : 482 ms Sinus tachycardia Left atrial enlargement Left axis deviation Inferior infarct (cited on or before 04-MAY-2021) T wave abnormality, consider lateral ischemia Prolonged QT Poor R wave progression, consider anterior [place] vs. lead placement vs. LVH Abnormal ECG When compared with ECG of 09-SEP-2023 07:41, QRS axis Shifted left T wave inversion now evident in Lateral leads Confirmed by Con Duong ([id number]) on 09/11/2023 8:59:11 PM Referred By: REFERRED SELF Confirmed By:Con Duong
[2023-09-12] MEDS: MoRPHine SULFATE 4 MG/ML 1 ML CARP\\VIAL IV PRN ×2 (03:19→17:30)
[2023-09-12] MEDS: DOXYCYCLINE HYCLATE 100 MG in DEXTROSE 5% MINI-B 100 ML IV SCH ×2 (05:18→17:22)
[2023-09-12 06:18] LABS: Basophils # (auto) 0.03 K/uL (0.00-0.20); Basophils % (auto) 0.2 %; Eosinophils # (auto) 0.06 K/uL (0.00-0.50); Eosinophils % (auto) 0.3 %; Hematocrit (blood only) 39.2 % (42.0-52.0); Hemoglobin 13.3 g/dl (14.0-18.0); Immature Granulocytes # (auto) 0.16 K/uL (0.01-0.20); Immature Granulocytes % (auto) 0.9 %; Lymphocytes # (auto) 0.99 K/uL (1.20-3.40); Lymphocytes % (auto) 5.7 %; Mean Corpuscular Hemoglobin 27.7 pg (25.0-34.0); Mean Corpuscular Hgb Conc 33.9 g/dL (32.0-36.0); Mean Corpuscular Volume 81.7 fL (80.0-100.0); Mean Platelet Volume 9.7 fL (9.4-12.4); Monocytes # (auto) 1.15 K/uL (0.11-0.59); Monocytes % (auto) 6.7 %; Neutrophils # (auto) 14.88 K/uL (1.40-6.50); Neutrophils % (auto) 86.2 %; Platelet Count 132 K/uL (130-400); RDW Coefficient of Variation 16.3 % (11.5-14.5); White Blood Count 17.27 K/ul (4.8-10.8)
[2023-09-12 06:40] LABS: Calcium 7.9 mg/dl (8.6-10.3); Creatinine Clr Calc Pharmacy 75.9 ml/min; Est GFR (African American) 85.2 ml/min; Est GFR (Non-African American) 73.5 ml/min; Magnesium 1.6 mg/dl (1.7-2.4); Potassium 3.2 mmol/L (3.5-5.1)
[2023-09-12 07:02] LABS: Partial Thromboplastin Ratio 1.6
[2023-09-12] MEDS ORDERED: POTASSIUM CHLORIDE CRTAB 20 MEQ TABCR PO STA (08:30)
[2023-09-12] MEDS: METOPROLOL SUCC 25MG EXT REL TAB PO SCH ×2 (08:58→20:20)
[2023-09-12] MEDS: CLOPIDOGREL BISULFATE 75 MG TAB PO SCH (08:58)
[2023-09-12] MEDS: PANTOprazole 40 MG TAB PO SCH (08:58)
[2023-09-12] MEDS: FUROSEMIDE INJ 20 MG/2 ML VIAL IV SCH ×2 (08:59→17:23)
[2023-09-12] MEDS: INSULIN ASPART PER UNIT CHARGE SC SCH ×4 (09:04→20:27)
[2023-09-12] MEDS: MAGNESIUM OXIDE 400 MG TAB PO SCH ×2 (09:05→20:22)
--- NOTE | 2023-09-12 10:57 | Cardiology Progress Note ---
Date of Service September 12, 2023 Assessment & Plan (1) Ischemic cardiomyopathy: (2) Acute systolic CHF (congestive heart failure): (3) Pulmonary embolism: (4) BRUNA (acute kidney injury): Plan LVEF 27% down from 45% a few years ago. Continue heparin for subsegmental pulmonary embolism Patient with low cardiac output symptoms prompting initiation of milrinone on 09/09/2023 creatinine subsequently improved from 1.8 to 1.45 --> 1.42 -- 1.14mg/dL. Holding oral nitrates, oral hydralazine, lisinopril, due to hypotension. Metoprolol succinate to 12.5 mg twice daily added yesterday Milrinone infusion initiated 09/09/2023 and titrated to 0.25 mg/kg/minute on 09/10/23. Continue current dose. Consider reducing in next 24-48 hours. Continue furosemide 20 mg IV x 1 now and then BID. Supplement potassium. Monitor daily weight, fluid balance, GFR, and electrolytes. Continue chronic clopidogrel due to history of stroke, carotid revascularization, CAD. Treatment of pneumonia as per internal medicine. Admission and Anticipated Discharge Date Admission Date: September 08, 2023 Subjective Patient seen and examined at the bedside. Denies chest pain or shortness of breath. Telemetry feels sinus tachycardia at approximately 100 bpm. Patient admitted with acute decompensated heart failure and pulmonary embolism. Echocardiogram demonstrating EF down to 27%. IV milrinone infusion initiated 09/09/2023 and titrated to 0.25 mg/kilogram/minute 09/10/2023. Renal function improving. Metoprolol and IV furosemide added yesterday. Fluid balance -2.7 L. Review of Systems Review of Systems: All systems reviewed & are unremarkable except as noted in Subjective Physical Exam Constitutional: well nourished; no acute distress Respiratory: no labored breathing and no retractions Auscultation: + rales (Right mid and lower lung); no rhonchi and no wheezes Cardiovascular: Rate/Rhythm: regular rate, regular rhythm and + tachycardic Heart Sounds: normal S1 and normal S2; no murmur Vessels: + JVD Extremities: + edema (2+ lower extremity edema) Gastrointestinal (Abdomen): Inspection/Auscultation: normal bowel sounds; abdomen not distended Percussion/Palpation: abdomen soft; abdomen nontender, no guarding and abdomen not rigid Neurologic: CN's II-XI intact bilaterally and moves all extremities; no focal motor deficits Results & Data Vital Signs (Past 12 Hours) Vital Signs Temp Pulse Pulse Resp BP Pulse Ox O2 Del Method 09/12/23 07:52 37.0 C 104 H 20 99/66 L 93 Nasal Cannula 09/12/23 07:47 103 H 09/12/23 02:34 37.3 C 107 H 18 122/80 93 Nasal Cannula 09/11/23 22:53 37.1 C 109 H 18 118/66 93 Nasal Cannula Laboratory Results Coagulation 09/12/23 Range/Units 05:33 APTT 45.0 H* (21.0-31.0) Seconds CBC 09/12/23 Range/Units 05:33 WBC 17.27 H (4.8-10.8) K/ul RBC 4.80 (4.70-6.10) M/uL Hgb 13.3 L (14.0-18.0) g/dl Hct 39.2 L (42.0-52.0) % Plt Count 132 (130-400) K/uL Neut # (Auto) 14.88 H (1.40-6.50) K/uL Lymph # (Auto) 0.99 L (1.20-3.40) K/uL [place] # (Auto) 1.15 H (0.11-0.59) K/uL Eos # (Auto) 0.06 (0.00-0.50) K/uL Baso # (Auto) 0.03 (0.00-0.20) K/uL Comprehensive Metabolic Panel 09/12/23 Range/Units 05:33 Sodium 138 (136-145) mmol/L Potassium 3.2 L (3.5-5.1) mmol/L Chloride 102 (98-107) mmol/L Carbon Dioxide 32 (21-32) mmol/L BUN 16 (6-23) mg/dl Creatinine 1.14 (0.6-1.4) mg/dl Glucose 208 H (70-99(Fasting)) mg/dl Calcium 7.9 L (8.6-10.3) mg/dl Intake and Output 09/11/23 09/12/23 09/12/23 22:59 06:59 14:59 Intake Total 302.667 / 1177.334 385.993 / 385.993 Output Total 2200 / 4200 800 / 4200 Balance -1897.333 / -3022.666 -800 / -3022.666 385.993 / 385.993 Intake: IV 302.667 / 937.334 385.993 / 385.993 Doxycycline Hyclate 100 mg In 100 / 200 100 / 100 Dextrose 5% Mini-B 100 ml @ 50 mls/hr IV Q12H [facility] Rx#:[id number] Heparin Sodium/Dextrose 25,000 102.667 / 587.334 242.333 / 242.333 units In 500 ml @ 1,000 UNITS/ HR 20 mls/hr IV .Q24H [facility] Rx#: [id number] Milrinone Lactate/D5w 20,000 100 / 100 43.66 / 43.66 mcg In 100 ml @ 0.25 MCG/KG/MIN 5.902 mls/hr IV .[id number] [facility] Rx#:[id number] Output: Urine Amount (Catheter) 2200 / 4200 800 / 4200 Straight 2200 / 4200 800 / 4200 Other: Other Intake Source sips Weight 81.3 kg
[2023-09-12] MEDS ORDERED: POLYETHYLENE (MIRALAX) 17 GM PACK PO PRN (11:42)
[2023-09-12] MEDS: DOCUSATE SODIUM 100 MG CAP PO SCH ×2 (12:39→20:22)
--- NOTE | 2023-09-12 14:02 | Hospitalist Progress Note ---
Date of Service September 12, 2023 Assessment & Plan (1) Pneumonia: (2) Acute systolic CHF (congestive heart failure): (3) Ischemic cardiomyopathy: (4) Hypoxia: (5) Pulmonary embolism: (6) Elevated troponin: (7) Elevated LFTs: (8) H/O: CVA (cerebrovascular accident): (9) CAD (coronary artery disease): (10) DM type 2 (diabetes mellitus, type 2): (11) Hypertension: (12) Prolonged QT interval: (13) CKD (chronic kidney disease), stage III: Plan 52-year-old male with PMH significant for DM type II, ischemic cardiomyopathy, systolic CHF, GERD, CKD stage III, history of CVA, right carotid endarterectomy, CAD, NSTEMI 2014 s/p BRUCE to RCA, depression, anxiety, and other problems listed below who presented with bilateral lower extremity swelling and shortness of breath. Pneumonia Pt currently on 5L of oxygen, does not use oxygen at baseline Chest XRAY with patchy bibasilar and midlung opacities suspicious for superimposed pneumonia Chest CTA suggestive of pneumonia as well with noted bilateral areas of wedge- shaped consolidation, most pronounced within the left upper and bilateral lower lobes WBC increased and while downtrending remains persistently elevated in spite of rocephin and doxycycline treatment, not currently on steroids MRSA nares negative Antibiotics broadened to Cefepime for pseudomonas coverage (rocephin d/c) and Flagyl for anaerobic coverage. Continue doxycycline. Continue to monitor Acute systolic CHF (congestive heart failure) Presented with increasing shortness of breath and lower extremity edema, noted to be hypoxemic on room air Acute systolic heart failure with history of cardiomyopathy Appreciate cardiology recs/care: -Milrinone drip, Lasix with supplemental potassium -Oral nitrates, oral hydralazine, lisinopril currently on hold -Metoprolol succinate to 12.5 mg twice daily added -Monitor daily weight, fluid balance, GFR, and electrolytes -Continue chronic clopidogrel due to history of stroke, carotid revascularization, CAD. Ischemic cardiomyopathy History of ischemic cardiomyopathy and noted to have EF of 27% Echo of the heart showed-inferior scar similar to previous, diffuse left ventricular hypokinesis with EF of 27%, mild diffuse right ventricular hypokinesis was noted as well. Significant changes compared to echo of 2020 Further management as noted above Hypoxia Secondary to CHF and fluid overload Currently on NC 5L Pulmonary embolism Noted to have bilateral pulmonary embolism No evidence of DVT on doppler Currently on heparin drip Elevated troponin Trops have plateaued in setting of acute systolic heart failure with history of cardiomyopathy Elevated LFTs T. bili 3.4, AST 55, ALT 216, alk phos 81 INR 1.7 MELD 23 RUQ US noted "heterogeneous liver with suggestion of mild hepatic steatosis and equivocal cirrhosis and was concerning for a 1.7 cm echogenic left hepatic lobe lesion, possibly a hemangioma.Follow up MRI recommended on discharge. Likely congestive hepatopathy from CHF GI consult-appreciate input and recommendation -ordered AIH serologies, acute hepatitis panel, viral panel (CMV,EBV,Parvo,HSV) -noted "Will arrange f/u in GI clinic after DC to r/o cirrhosis using Fibroscan vs liver bx, obtain MRI liver imaging to furhter characterize liver lesion" Continue to trend LFTs H/O: CVA (cerebrovascular accident) Continue Plavix Holding statin due to elevated LFTs CAD (coronary artery disease) History of NSTEMI in 2013 s/p BRUCE to RCA Continue Plavix and beta-marcial, holding statin due to elevated LFTs DM type 2 (diabetes mellitus, type 2) Hgb A1c 7.0 on 09/09 Patient self stopped metformin 1 year ago NovoLog per protocol while hospitalized Hypertension BP elevated on presentation, self resolving Holding lisinopril, hydralazine, oral nitrates per cardiology Hold amlodipine. Patient typically only utilizes on an as needed basis. Metoprolol succinate dose has been increased to 12.5 mg twice daily Prolonged QT interval QTc 541 Avoid QTc prolonging agents, daily EKG CKD (chronic kidney disease), stage III Baseline creatinine ~ 1.4 Creatinine wnl at this time Continue to monitor renal function CODE STATUS: Full code Diet:DMII, HH, Low sodium DVT PROPHYLAXIS:On IV heparin Dispo:Pt is ambulatory at baseline, no oxygen use at baseline. Will need evaluation by PT/OT once more medically stable. Orders placed. Admission and Anticipated Discharge Date Admission Date: September 08, 2023 Subjective Pt seen in the AM. Denied SOB or chest pain at the time. States that he has been having abdominal pain, has not had a BM for some time. Otherwise denied acute concerns. Review of Systems Review of Systems: All systems reviewed & are unremarkable except as noted in Subjective Physical Exam Physical Exam: General: Alert, oriented. Psych: Appropriate mood and affect Neuro: No gross deficits HEENT: NC/AT CV: RRR, Normal s1, s2. No murmurs appreciated Resp:NC on, no increased effort of breathing. Abdomen: Soft, tender Extremities: edema in lower extremities bilaterally, L>R. Results & Data Results & Data Vital Signs (Past 12 Hours) Vital Signs Temp Pulse Pulse Resp BP Pulse Ox O2 Del Method 09/12/23 11:40 37.6 C H 111 H 18 154/75 H 94 Nasal Cannula 09/12/23 08:00 Nasal Cannula 09/12/23 07:52 37.0 C 104 H 20 99/66 L 93 Nasal Cannula 09/12/23 07:47 103 H 09/12/23 02:34 37.3 C 107 H 18 122/80 93 Nasal Cannula O2 Flow Rate 09/12/23 11:40 5 09/12/23 08:00 5 09/12/23 07:52 09/12/23 07:47 09/12/23 02:34 (11) Hypertension Hypertension type: unspecified Qualified Code(s): I10 - Essential (primary) hypertension
[2023-09-12] MEDS: CEFEPIME 2,000 MG in SYRINGE 0 ML IV SCH ×2 (14:23→22:01)
[2023-09-12] MEDS: metroNIDAZOLE 500 MG/100 ML BAG IV SCH ×2 (14:23→22:01)
[2023-09-12] MEDS: ACETAMINOPHEN 325 MG TAB PO PRN (14:24)
[2023-09-12] MEDS: HEPARIN SODIUM/DEXTROSE 25,000 UNITS/500 ML BAG IV SCH (16:16)
[2023-09-12] MEDS: MILRINONE LACTATE/D5W 20,000 MCG/100 ML BAG IV SCH (16:31)
[2023-09-12] MEDS ORDERED: oxyCODONE HCL IR 5 MG TAB (IMMEDIATE RELEASE) PO STA (19:18)
[2023-09-13] MEDS: MoRPHine SULFATE 4 MG/ML 1 ML CARP\\VIAL IV PRN ×4 (03:35→21:57)
[2023-09-13] MEDS: CEFEPIME 2,000 MG in SYRINGE 0 ML IV SCH (05:32)
[2023-09-13] MEDS: metroNIDAZOLE 500 MG/100 ML BAG IV SCH (05:39)
[2023-09-13 06:21] LABS: Basophils # (auto) 0.03 K/uL (0.00-0.20); Basophils % (auto) 0.2 %; Eosinophils # (auto) 0.09 K/uL (0.00-0.50); Eosinophils % (auto) 0.5 %; Hematocrit (blood only) 38.3 % (42.0-52.0); Hemoglobin 13.4 g/dl (14.0-18.0); Immature Granulocytes # (auto) 0.17 K/uL (0.01-0.20); Mean Corpuscular Hemoglobin 27.5 pg (25.0-34.0); Mean Corpuscular Volume 78.5 fL (80.0-100.0); Mean Platelet Volume 9.7 fL (9.4-12.4); Monocytes % (auto) 6.6 %; Neutrophils # (auto) 14.23 K/uL (1.40-6.50); Neutrophils % (auto) 85.7 %; Platelet Count 125 K/uL (130-400); RDW Coefficient of Variation 16.7 % (11.5-14.5); RDW Standard Deviation 47.1 fL (36.4-46.3); Red Blood Count 4.88 M/uL (4.70-6.10); White Blood Count 16.62 K/ul (4.8-10.8)
[2023-09-13 06:42] LABS: BUN Creatinine Ratio 12.8 (10-20); Calcium 7.8 mg/dl (8.6-10.3); Creatinine Clr Calc Pharmacy 77.9 ml/min; Est GFR (Non-African American) 77.6 ml/min; Potassium 3.1 mmol/L (3.5-5.1)
[2023-09-13] MEDS: DOXYCYCLINE HYCLATE 100 MG in DEXTROSE 5% MINI-B 100 ML IV SCH (06:45)
[2023-09-13 06:47] LABS: Partial Thromboplastin Ratio 1.3; Partial Thromboplastin Time 37.6 Seconds (21.0-31.0)
[2023-09-13 06:49] LABS: Albumin Globulin Ratio 0.9 (0.9-2); Albumin Level 2.5 gm/dl (3.4-5.0); Globulin 2.9 gm/dl (2.5-4.0); Magnesium 1.3 mg/dl (1.7-2.4); Phosphorus 1.5 mg/dl (2.5-4.9); Total Protein 5.4 gm/dl (6.0-8.3)
[2023-09-13] MEDS ORDERED: POTASSIUM PHOS 3 MMOL/1 ML INFUSION IV STA (06:55)
[2023-09-13] MEDS ORDERED: POTASSIUM CHLORIDE CRTAB 20 MEQ TABCR PO STA (06:56)
[2023-09-13] MEDS ORDERED: POTASSIUM PHOSPHATE 24 MMOL in SODIUM CHLORIDE 0.9% 500 ML IV ONE (07:15)
[2023-09-13] MEDS: MAGNESIUM SULFATE / D5W 1 GM/100 ML BAG IV SCH ×2 (07:38→10:09)
--- NOTE | 2023-09-13 09:11 | Cardiology Progress Note ---
Date of Service September 13, 2023 Assessment & Plan (1) Ischemic cardiomyopathy: (2) Acute systolic CHF (congestive heart failure): (3) Pulmonary embolism: (4) BRUNA (acute kidney injury): Plan LVEF 27% down from 45% a few years ago. Reduce milrinone to 0.125 mg/kg/min. Patient with low cardiac output symptoms prompting initiation of milrinone on 09/09/2023 creatinine subsequently improved from 1.8 to 1.45 --> 1.42 --> 1.14 --> 1.09mg/dL. Holding oral nitrates, oral hydralazine, lisinopril, due to hypotension. Titrate metoprolol to 25 mg twice daily Continue heparin for subsegmental pulmonary embolism Continue furosemide 20 mg IV BID. Supplement potassium. Monitor daily weight, fluid balance, GFR, and electrolytes. Continue chronic clopidogrel due to history of stroke, carotid revascularization, CAD. Treatment of pneumonia as per internal medicine. Admission and Anticipated Discharge Date Admission Date: September 08, 2023 Subjective Patient seen examined the bedside. Fluid balance -4.3 L. Renal function remained stable. Feeling somewhat better from a cardiovascular perspective. Telemetry reveals sinus tachycardia at 110 bpm. No dysrhythmia. Review of Systems Review of Systems: All systems reviewed & are unremarkable except as noted in Subjective Physical Exam Constitutional: well nourished; no acute distress Respiratory: no labored breathing and no retractions Auscultation: no rales, no rhonchi and no wheezes Cardiovascular: Rate/Rhythm: regular rate, regular rhythm and + tachycardic Heart Sounds: normal S1 and normal S2; no murmur Vessels: + JVD Extremities: + edema (2+ lower extremity edema) Gastrointestinal (Abdomen): Inspection/Auscultation: normal bowel sounds; abdomen not distended Percussion/Palpation: abdomen soft; abdomen nontender, no guarding and abdomen not rigid Neurologic: CN's II-XI intact bilaterally and moves all extremities; no focal motor deficits Results & Data Vital Signs (Past 12 Hours) Vital Signs Temp Pulse Pulse Resp BP Pulse Ox O2 Del Method 09/13/23 08:01 37.4 C 111 H 17 144/72 H 92 Nasal Cannula 09/13/23 03:00 36.7 C 112 H 20 144/73 H 93 Nasal Cannula 09/12/23 21:58 104 H 09/12/23 22:46 36.8 C 105 H 20 155/82 H 96 Nasal Cannula O2 Flow Rate 09/13/23 08:01 4 09/13/23 03:00 09/12/23 21:58 09/12/23 22:46 5 Laboratory Results Cardiac Enzymes 09/13/23 Range/Units 05:52 AST 38 (13-39) U/L Coagulation 09/13/23 Range/Units 05:52 APTT 37.6 H (21.0-31.0) Seconds CBC 09/13/23 Range/Units 05:52 WBC 16.62 H (4.8-10.8) K/ul RBC 4.88 (4.70-6.10) M/uL Hgb 13.4 L (14.0-18.0) g/dl Hct 38.3 L (42.0-52.0) % Plt Count 125 L (130-400) K/uL Neut # (Auto) 14.23 H (1.40-6.50) K/uL Lymph # (Auto) 1.00 L (1.20-3.40) K/uL [place] # (Auto) 1.10 H (0.11-0.59) K/uL Eos # (Auto) 0.09 (0.00-0.50) K/uL Baso # (Auto) 0.03 (0.00-0.20) K/uL Comprehensive Metabolic Panel 09/13/23 Range/Units 05:52 Sodium 136 (136-145) mmol/L Potassium 3.1 L (3.5-5.1) mmol/L Chloride 101 (98-107) mmol/L Carbon Dioxide 30 (21-32) mmol/L BUN 14 (6-23) mg/dl Creatinine 1.09 (0.6-1.4) mg/dl Glucose 193 H (70-99(Fasting)) mg/dl Calcium 7.8 L (8.6-10.3) mg/dl AST 38 (13-39) U/L ALT 46 (7-52) U/L Alkaline Phosphatase 100 (34-104) U/L Total Protein 5.4 L (6.0-8.3) gm/dl Albumin 2.5 L (3.4-5.0) gm/dl Intake and Output 10/09/13/23 09/13/23 22:59 06:59 14:59 Intake Total 681.090 / 1387.083 200 / 1387.083 346.488 / 346.488 Output Total 2200 / 5700 1100 / 5700 Balance -1518.910 / -4312.917 -900 / -4312.917 346.488 / 346.488 Intake: IV 481.090 / 1067.083 200 / 1067.083 346.488 / 346.488 Doxycycline Hyclate 100 mg In 100 / 200 Dextrose 5% Mini-B 100 ml @ 50 mls/hr IV Q12H [facility] Rx#:[id number] Heparin Sodium/Dextrose 25,000 211.667 / 454.000 275.000 / 275.000 units In 500 ml @ 1,000 UNITS/ HR 20 mls/hr IV .Q24H [facility] Rx#: [id number] Milrinone Lactate/D5w 20,000 69.423 / 113.083 71.488 / 71.488 mcg In 100 ml @ 0.25 MCG/KG/MIN 5.902 mls/hr IV .[id number] [facility] Rx#:[id number] metroNIDAZOLE 500 mg In 100 ml 100 / 300 200 / 300 @ 100 mls/hr IV Q8H [facility] Rx#: [id number] Oral 200 / 320 Output: Urine Amount (Catheter) 2200 / 5700 1100 / 5700 Rushing/Indwelling 2200 / 5700 1100 / 5700 Other: Weight 78 kg
[2023-09-13] MEDS: FUROSEMIDE INJ 20 MG/2 ML VIAL IV SCH ×2 (09:16→17:07)
[2023-09-13] MEDS: CLOPIDOGREL BISULFATE 75 MG TAB PO SCH (09:16)
[2023-09-13] MEDS: MAGNESIUM OXIDE 400 MG TAB PO SCH ×2 (09:16→21:34)
[2023-09-13] MEDS: PANTOprazole 40 MG TAB PO SCH (09:16)
[2023-09-13] MEDS: DOCUSATE SODIUM 100 MG CAP PO SCH ×2 (09:16→21:35)
[2023-09-13] MEDS: INSULIN ASPART PER UNIT CHARGE SC SCH ×4 (09:24→21:34)
[2023-09-13 09:52] LABS: Ferritin 171.2 ng/ml (8-388)
--- NOTE | 2023-09-13 10:07 | Pulmonary Consultation ---
Date of Consultation September 13, 2023 Assessment & Plan (1) Pulmonary embolism: (2) Acute CHF: (3) Pulmonary infarct: Plan Impression: 52-year-old male with multiple medical problems admitted with CHF exacerbation. He has been treated empirically for pneumonia but his procalcitonin was negative on presentation. No cultures have been obtained. There was concern that his oxygen requirements persistent however most recent imaging demonstrates persistent fluid overload. He was also noted to have PEs and has been anticoagulated. CT findings may represent pulmonary infarcts. Recommendations: 1. Acute PEs: Continue lifelong anticoagulation. Okay to transition from heparin infusion to oral anticoagulant such as Coumadin or DOAC's based on patient preference and insurance coverage. Again given the idiopathic nature of these clots and the patient's heart failure, would favor lifelong anticoagulation unless there is a significant contraindication. 2. Abnormal CT scan: CT was independently reviewed. It does demonstrate some wedge-shaped opacities which may be consistent with pulmonary infarcts. Typically these resolve over time and a follow-up CT scan without contrast in 8 to 12 weeks would be recommended. Pulmonary infarcts may result in leukocytosis but these are not infectious. 3. Potential pneumonia: The patient has been on antibiotics since her presentation. I do not see need to escalate his antibiotics and will discontinue Flagyl doxycycline and cefepime. We will place him on cefuroxime and azithromycin orally for an additional 2 to 3 days which should be an adequate course of antimicrobial therapy. We will recheck procalcitonin in a.m. and if negative, antibiotics may be able to be discontinued 4. Pleural effusions: Continue management per cardiology and primary service with diuresis. He has persistent pedal edema. Would continue to push diuretics until BUN/creatinine elevate. 5. Hypoxemia: Multifactorial secondary to PEs and heart failure. Continue diuresis. Wean oxygen to keep oxygen saturations at or above 88%. Patient may require supplemental oxygen at discharge. 6. Patient does relate a significant history of tobacco abuse. Consideration for outpatient PFTs may be appropriate. We will continue to follow with you History of Present Illness Attending Physician: Nai Koehler MD History of Present Illness Asked by hospitalist to evaluate this patient with pneumonia and hypoxemic respiratory failure. History is obtained from discussion with the patient as well as review electronic medical record. Patient is a 52-year-old male with a history of diabetes, cardiomyopathy with heart failure, chronic kidney disease, and previous CVA presented to the emergency room 09/08/2023 with significant lower extremity edema and shortness of breath. He had an elevated BNP and an echo showing reduction in his ejection fraction. CTA showed subsegmental PEs and he was initiated on heparin. He has been seen by cardiology and has been managed on milrinone infusion as well as diuretics. Yesterday there was concern that his white count was elevated and his antibiotics were discontinued from Rocephin and doxycycline to Flagyl and cefepime and doxycycline. Patient reports that he feels better than when he came into the hospital. He has persistent pedal edema. He does feel congested in his chest. He is coughing but not expectorating much in the way of phlegm. He has not had any hemoptysis. He denies fevers chills night sweats or other constitutional symptoms. He is not reporting any chest pain. Allergies Allergy/AdvReac Type Severity Reaction Status Date / Time No Known Allergies Allergy Verified 09/08/23 14:20 Home Medications Medication Instructions Recorded Confirmed Type clopidogrel 75 mg tablet (Plavix) 75 mg PO DAILY 06/05/21 09/08/23 History lisinopril 30 mg tablet 30 mg PO DAILY 06/05/21 09/08/23 History amlodipine 5 mg tablet 5 mg PO QAM PRN HTN 09/08/23 09/08/23 History atorvastatin 20 mg tablet 20 mg PO QAM 09/08/23 09/08/23 History escitalopram oxalate 5 mg tablet 5 mg PO DAILY 09/08/23 09/08/23 History hydralazine 25 mg tablet 25 mg PO TID 09/08/23 09/08/23 History metoprolol succinate 25 mg 12.5 mg PO DAILY 09/08/23 09/08/23 History tablet,extended release 24 hr omeprazole 40 mg capsule,delayed 40 mg PO QAM 09/08/23 09/08/23 History release Patient History Medical History Abnormal MRI of head MRI 06/15/20 showed MCA infarcts as well as ring enhancement right posterior lobe. Repeat MRI recommended in 3 months. CAD (coronary artery disease) 2013 - NSTEMI s/p BRUCE to RCA Carotid stenosis, bilateral CKD (chronic kidney disease), stage III Depression DM type 2 (diabetes mellitus, type 2) Dyslipidemia Encounter for pre-operative examination History of cerebrovascular accident March 2020; subacute infarct noted to parietal lobe per 06/15/20 MRI Hypertension Ischemic cardiomyopathy EF=45% Surgical History Hx of endarterectomy (06/28/20) Right Carotid Endarterectomy with Bovine Patch Angioplasty Dr. Arita 06/28/2020 S/P drug eluting coronary stent placement Family History Mother , age 68 from metastatic lung cancer Lung cancer Father No problems noted. 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[employer], 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 Feels Safe at Home: Yes Assistive Devices: None Review of Systems Review of Systems: All systems reviewed & are unremarkable except as noted in Subjective Physical Exam Constitutional: well nourished; no acute distress Respiratory: no labored breathing and no retractions Auscultation: no rales, no rhonchi and no wheezes Cardiovascular: Rate/Rhythm: regular rate, regular rhythm and + tachycardic Heart Sounds: normal S1 and normal S2; no murmur Vessels: + JVD Extremities: + edema (2+ lower extremity edema) Gastrointestinal (Abdomen): Inspection/Auscultation: normal bowel sounds; abdomen not distended Percussion/Palpation: abdomen soft; abdomen nontender, no guarding and abdomen not rigid Neurologic: CN's II-XI intact bilaterally and moves all extremities; no focal motor deficits Results & Data Results & Data Vital Signs (Past 12 Hours) Vital Signs Temp Pulse Resp BP Pulse Ox O2 Del Method O2 Flow Rate 09/13/23 08:01 37.4 C 111 H 17 144/72 H 92 Nasal Cannula 4 09/13/23 03:00 36.7 C 112 H 20 144/73 H 93 Nasal Cannula 09/12/23 22:46 36.8 C 105 H 20 155/82 H 96 Nasal Cannula [address] angio chest PE protocol 09/08/2023: Independently reviewed CT DOSE: 756.37 mGy.cm HISTORY: 52 years-old Male with PE. Acute shortness of breath TECHNIQUE: Multiple CTA images of the chest were obtained after the intravenous administration of 114 ml Optiray. Coronal and sagittal MIPS were obtained from the axial data set and were submitted for review. All measurements were obtained according to NASCET criteria. A dose lowering technique was utilized adhering to the principles of ALARA. COMPARISON: Chest radiograph of same day FINDINGS: CTA: Marked cardiomegaly. Trace pericardial effusion. Extensive coronary artery calcifications. Atherosclerosis of the thoracic aorta without aneurysm. Aberrant right subclavian artery. There is limited evaluation of the subsegmental pulmonary arterial branches secondary to contrast bolus timing, notably within the lower lobes. Small bilateral subsegmental pulmonary emboli are noted bilaterally. No central pulmonary emboli or right heart strain identified. CT CHEST: No thyroid nodule identified. Nonspecific borderline enlarged mediastinal and hilar lymphadenopathy is likely reactive. Small left with moderate right pleural effusions. No pneumothorax. Intralobular septal thickening with intermixed groundglass densities and patchy multilobar distribution of peripheral consolidation, most pronounced within the lower lobes and left upper lobe. The largest area of consolidation measures up to 6.2 cm within the right lower lobe. The central airways are patent. Generalized body wall edema with upper abdominal ascites. Distal esophageal wall thickening. There is mild hepatic steatosis with probable hepatomegaly. No acute fracture identified. IMPRESSION: 1. Subsegmental bilateral pulmonary emboli. 2. Cardiomegaly with pulmonary edema, small left and moderate right pleural effusions. 3. Bilateral areas of wedge-shaped consolidation, most pronounced within the left upper and bilateral lower lobes may represent superimposed pneumonia versus pulmonary infarcts. 4. Anasarca with small volume of upper abdominal ascites. 5. Hepatic steatosis. Critical Care Results & Data Vital Signs (Past 12 Hours) Vital Signs Temp Pulse Resp BP Pulse Ox O2 Del Method O2 Flow Rate 09/13/23 08:01 37.4 C 111 H 17 144/72 H 92 Nasal Cannula 4 09/13/23 03:00 36.7 C 112 H 20 144/73 H 93 Nasal Cannula 09/12/23 22:46 36.8 C 105 H 20 155/82 H 96 Nasal Cannula 5 Lab & Micro Results (Past 24 Hours) RBC 4.88 M/uL (4.70-6.10) 09/13/23 WBC 16.62 K/ul (4.8-10.8) H 09/13/23 Hgb 13.4 g/dl (14.0-18.0) L 09/13/23 Hct 38.3 % (42.0-52.0) L 09/13/23 MCV 78.5 fL (80.0-100.0) L 09/13/23 MCH 27.5 pg (25.0-34.0) 09/13/23 MCHC 35.0 g/dL (32.0-36.0) 09/13/23 RDW Standard Deviation 47.1 fL (36.4-46.3) H 09/13/23 RDW Coefficient of Variation 16.7 % (11.5-14.5) H 09/13/23 Plt Count 125 K/uL (130-400) L 09/13/23 MPV 9.7 fL (9.4-12.4) 09/13/23 Neutrophils (%) (Auto) 85.7 % 09/13/23 Lymphocytes (%) (Auto) 6.0 % 09/13/23 Monocytes # (Auto) 1.10 K/uL (0.11-0.59) H 09/13/23 Eosinophils # (Auto) 0.09 K/uL (0.00-0.50) 09/13/23 Immature Granulocyte % (Auto) 1.0 % 09/13/23 Neutrophils # (Auto) 14.23 K/uL (1.40-6.50) H 09/13/23 Lymphocytes # (Auto) 1.00 K/uL (1.20-3.40) L 09/13/23 Monocytes # (Auto) 1.10 K/uL (0.11-0.59) H 09/13/23 Eosinophils # (Auto) 0.09 K/uL (0.00-0.50) 09/13/23 Basophils # (Auto) 0.03 K/uL (0.00-0.20) 09/13/23 Immature Granulocyte # (Auto) 0.17 K/uL (0.01-0.20) 3 Na 136 mmol/L (136-145) 09/13/23 K 3.1 mmol/L (3.5-5.1) L 09/13/23 Cl 101 mmol/L (98-107) 09/13/23 CO2 30 mmol/L (21-32) 09/13/23 Anion Gap 5 (3-11) 09/13/23 BUN 14 mg/dl (6-23) 09/13/23 Creatinine 1.09 mg/dl (0.6-1.4) 09/13/23 Estimated GFR ( Amer) 90.0 ml/min 09/13/23 Estimated GFR (Non-Af Amer) 77.6 ml/min 09/13/23 BUN/Creatinine Ratio 12.8 (10-20) 09/13/23 Glu 193 mg/dl (70-99(Fasting)) H 09/13/23 Ca 7.8 mg/dl (8.6-10.3) L 09/13/23 Phosphorus Level 1.5 mg/dl (2.5-4.9) L* 09/13/23 Total Bilirubin 3.0 mg/dl (0.2-1.0) H 09/13/23 AST 38 U/L (13-39) 09/13/23 ALT 46 U/L (7-52) 09/13/23 Alkaline Phosphatase 100 U/L (34-104) 09/13/23 TP 5.4 gm/dl (6.0-8.3) L 09/13/23 Albumin 2.5 gm/dl (3.4-5.0) L 09/13/23 Globulin 2.9 gm/dl (2.5-4.0) 09/13/23 Albumin/Globulin Ratio 0.9 (0.9-2) 09/13/23 Mg 1.3 mg/dl (1.7-2.4) L 09/13/23 05:52 Calcium Level 7.8 mg/dl (8.6-10.3) L 09/13/23 05:52 Ionized Calcium 1.05 mmol/L (1.12-1.32) L 09/13/23 05:52 I & O Totals 24 Hours 09/12/23 09/13/23 09/14/23 06:59 06:59 06:59 Intake Total 1177.334 / 4052.087 3844.083 / 1387.083 346.488 / 346.488 Output Total 4200 / 4200 5700 / 5700 Balance -3022.666 / -3022.666 -4312.917 / -4312.917 346.488 / 346.488 Cumulative 09/08/23 09:17 thru 09/13/23 08:51 Intake Total 7436.559 Output Total 38646 Balance -7153.441 RT Ventilator Mngmt (Last Documented) Ventilator Ordered Settings Respiratory Rate 17 09/13/23 08:01 Ventilator - PT Measurements Respiratory Rate 17 PG Care Time/CCT Total # of Minutes Spent Total Time Spent with Patient: Total time spent is greater than 50% in coordination of care (as documented) at patient's floor/unit and/or counseling patient: Coding Level of Care Code 32337 IN/OBS CONSULT LVL 4,60M Diagnoses Pulmonary embolism I26.99 Acute CHF I50.9 Pulmonary infarct I26.99
[2023-09-13] MEDS ORDERED: MILRINONE LACTATE/D5W 20,000 MCG/100 ML BAG IV SCH (10:15)
[2023-09-13] MEDS ORDERED: cefUROXime axetil 500 MG TAB PO SCH (10:15)
--- NOTE | 2023-09-13 10:22 | Hospitalist Progress Note ---
Date of Service September 13, 2023 Assessment & Plan (1) Pneumonia: (2) Acute systolic CHF (congestive heart failure): (3) Ischemic cardiomyopathy: (4) Hypoxia: (5) Pulmonary embolism: (6) Elevated troponin: (7) Elevated LFTs: (8) H/O: CVA (cerebrovascular accident): (9) CAD (coronary artery disease): (10) DM type 2 (diabetes mellitus, type 2): (11) Hypertension: (12) Prolonged QT interval: (13) CKD (chronic kidney disease), stage III: Plan 52-year-old male with PMH significant for DM type II, ischemic cardiomyopathy, systolic CHF, GERD, CKD stage III, history of CVA, right carotid endarterectomy, CAD, NSTEMI 2014 s/p BRUCE to RCA, depression, anxiety, and other problems listed below who presented with bilateral lower extremity swelling and shortness of breath. Acute hypoxemic Respiratory Failure Pneumonia Pulmonary Emboli Pulmonary Infarct Chronic Anemia, iron deficiency Pt currently on 5L of oxygen, does not use oxygen at baseline Chest XRAY with patchy bibasilar and midlung opacities suspicious for superimposed pneumonia Chest CTA suggestive of pneumonia vs. pulmonary infarcts as well with noted bilateral areas of wedge-shaped consolidation, most pronounced within the left upper and bilateral lower lobes WBC increased and while downtrending remains persistently elevated in spite of rocephin and doxycycline treatment, not currently on steroids MRSA nares negative Previously treated with Rocephin --> Cefepime for pseudomonas coverage, doxycycline and Flagyl for anaerobic coverage. Pulmonology Consult on 09/13, appreciate recs -Transition to oral DOAC/coumadin for PE -CTA more suggestive of pulm infarct that will likely resolve over time, can cause noninfectious leukocytosis -Recommending followup CT scan w/o contrast in 8-12 weeks after discharge -Pneumonia less likely, but continue with 2 more days of amoxil and zithromax. If AM procal negative, can discontinue abx. -Continue IV diuresis for pleural effusions until BUN/Cr elevated -Hypoxemia likely due to CHF, PE, goal O2 sat >88%, will likely need oxygen on discharge Outpt PFTs due to tobacco Hx Continue to monitor Acute systolic CHF (congestive heart failure) Presented with increasing shortness of breath and lower extremity edema, noted to be hypoxemic on room air Acute systolic heart failure with history of cardiomyopathy Appreciate cardiology recs/care: -Milrinone drip, Lasix with supplemental potassium -Oral nitrates, oral hydralazine, lisinopril currently on hold -Metoprolol succinate to 12.5 mg twice daily added -Monitor daily weight, fluid balance, GFR, and electrolytes -Continue chronic clopidogrel due to history of stroke, carotid rev ascularization, CAD. Ischemic cardiomyopathy History of ischemic cardiomyopathy and noted to have EF of 27% Echo showed-inferior scar similar to previous, diffuse left ventricular hypokinesis with EF of 27%, mild diffuse right ventricular hypokinesis was noted as well. Significant changes compared to echo of 2020 Further management as noted above Anemia, iron deficiency Pt also anemic with noted low iron levels currently 25 Likely also contributing to hypoxia Currently on NC 4L-6L IV Venofer 300mg ordered on 09/13, repeat iron level in AM Pulmonary embolism Noted to have bilateral pulmonary emboli No evidence of DVT on doppler Was on heparin drip, transitioned to PO Eliquis on 09/13 Elevated troponin Trops have plateaued in setting of acute systolic heart failure with history of cardiomyopathy Elevated LFTs T. bili 3.4, AST 55, ALT 216, alk phos 81 INR 1.7 MELD 23 RUQ US noted "heterogeneous liver with suggestion of mild hepatic steatosis and equivocal cirrhosis and was concerning for a 1.7 cm echogenic left hepatic lobe lesion, possibly a hemangioma.Follow up MRI recommended on discharge. Likely congestive hepatopathy from CHF GI consult-appreciate input and recommendation -ordered AIH serologies, acute hepatitis panel, viral panel (CMV,EBV,Parvo,HSV) -noted "Will arrange f/u in GI clinic after DC to r/o cirrhosis using Fibroscan vs liver bx, obtain MRI liver imaging to furhter characterize liver lesion" Continue to trend LFTs H/O: CVA (cerebrovascular accident) Continue Plavix Holding statin due to elevated LFTs CAD (coronary artery disease) History of NSTEMI in 2013 s/p BRUCE to RCA Continue Plavix and beta-marcial, holding statin due to elevated LFTs DM type 2 (diabetes mellitus, type 2) Hgb A1c 7.0 on 09/09 Patient self stopped metformin 1 year ago NovoLog per protocol while hospitalized Hypertension BP elevated on presentation Holding lisinopril, hydralazine, oral nitrates per cardiology Hold amlodipine. Patient typically only utilizes on an as needed basis. Metoprolol succinate dose has been increased to 12.5 mg twice daily Prolonged QT interval QTc 541 Avoid QTc prolonging agents, daily EKG CKD (chronic kidney disease), stage III Baseline creatinine ~ 1.4 Creatinine wnl at this time Continue to monitor renal function CODE STATUS: Full code Diet:DMII, HH, Low sodium DVT PROPHYLAXIS:Transitioned to PO Eliquis Dispo:Pt is ambulatory at baseline, no oxygen use at baseline. Will need 2 step, also evaluation by PT/OT. Orders for PT/OT placed. Admission and Anticipated Discharge Date Admission Date: September 08, 2023 Subjective States that he has pain all over, more in the joints. Has pain meds ordered, helping some. States no change to breathing. No BM today. Otherwise denied acute concerns. Review of Systems Review of Systems: All systems reviewed & are unremarkable except as noted in Subjective Physical Exam Physical Exam: General: Alert, oriented. Psych: Appropriate mood and affect Neuro: No gross deficits HEENT: NC/AT CV: RRR, Normal s1, s2. No murmurs appreciated Resp:NC on, no increased effort of breathing. Abdomen: Soft, tender Extremities: edema in lower extremities bilaterally, L>R. Results & Data Results & Data Vital Signs (Past 12 Hours) Vital Signs Temp Pulse Resp BP Pulse Ox O2 Del Method O2 Flow Rate 09/13/23 08:01 37.4 C 111 H 17 144/72 H 92 Nasal Cannula 4 09/13/23 03:00 36.7 C 112 H 20 144/73 H 93 Nasal Cannula 09/12/23 22:46 36.8 C 105 H 20 155/82 H 96 Nasal Cannula 5 (11) Hypertension Hypertension type: unspecified Qualified Code(s): I10 - Essential (primary) hypertension
[2023-09-13] MEDS: AMOXICILLIN 500 MG CAP PO SCH ×3 (13:23→21:34)
[2023-09-13 15:48] LABS: Partial Thromboplastin Ratio 1.4; Partial Thromboplastin Time 38.4 Seconds (21.0-31.0)
[2023-09-13] MEDS ORDERED: IRON SUCROSE 300 MG in SODIUM CHLORIDE 0.9% 250 ML IV ONE (16:00)
[2023-09-13] MEDS: APIXABAN 5 MG TABLET PO SCH (17:06)
[2023-09-13] MEDS: AZITHROMYCIN 250 MG TAB PO SCH (17:07)
[2023-09-13] MEDS: METOPROLOL SUCC 25MG EXT REL TAB PO SCH ×2 (19:31→21:35)
[2023-09-13] MEDS ORDERED: APIXABAN 5 MG TABLET PO SCH (21:00)
[2023-09-14] MEDS: APIXABAN 5 MG TABLET PO SCH ×2 (05:44→17:45)
[2023-09-14 06:27] LABS: Basophils # (auto) 0.04 K/uL (0.00-0.20); Basophils % (auto) 0.2 %; Eosinophils # (auto) 0.15 K/uL (0.00-0.50); Eosinophils % (auto) 0.9 %; Hematocrit (blood only) 40.2 % (42.0-52.0); Hemoglobin 14.4 g/dl (14.0-18.0); Immature Granulocytes # (auto) 0.19 K/uL (0.01-0.20); Immature Granulocytes % (auto) 1.1 %; Lymphocytes # (auto) 1.43 K/uL (1.20-3.40); Lymphocytes % (auto) 8.5 %; Mean Corpuscular Hemoglobin 27.9 pg (25.0-34.0); Mean Corpuscular Hgb Conc 35.8 g/dL (32.0-36.0); Mean Corpuscular Volume 77.9 fL (80.0-100.0); Mean Platelet Volume 10.9 fL (9.4-12.4); Monocytes # (auto) 1.25 K/uL (0.11-0.59); Monocytes % (auto) 7.4 %; Neutrophils # (auto) 13.74 K/uL (1.40-6.50); Neutrophils % (auto) 81.9 %; Platelet Count 128 K/uL (130-400); RDW Standard Deviation 47.8 fL (36.4-46.3); Red Blood Count 5.16 M/uL (4.70-6.10)
[2023-09-14 06:52] LABS: Albumin Globulin Ratio 0.8 (0.9-2); Albumin Level 2.6 gm/dl (3.4-5.0); BUN Creatinine Ratio 11.7 (10-20); Bilirubin,Total 2.9 mg/dl (0.2-1.0); Calcium 8.1 mg/dl (8.6-10.3); Creatinine Clr Calc Pharmacy 90.4 ml/min; Est GFR (African American) 107.6 ml/min; Est GFR (Non-African American) 92.8 ml/min; Globulin 3.3 gm/dl (2.5-4.0); Magnesium 1.7 mg/dl (1.7-2.4); Phosphorus 1.6 mg/dl (2.5-4.9); Potassium 3.1 mmol/L (3.5-5.1); Total Protein 5.9 gm/dl (6.0-8.3)
[2023-09-14] MEDS: AMOXICILLIN 500 MG CAP PO SCH ×3 (08:52→20:01)
[2023-09-14] MEDS: CLOPIDOGREL BISULFATE 75 MG TAB PO SCH (08:52)
[2023-09-14] MEDS: METOPROLOL SUCC 25MG EXT REL TAB PO SCH ×2 (08:52→20:01)
[2023-09-14] MEDS: DOCUSATE SODIUM 100 MG CAP PO SCH ×2 (08:52→20:00)
[2023-09-14] MEDS: AZITHROMYCIN 250 MG TAB PO SCH (08:52)
[2023-09-14] MEDS: PANTOprazole 40 MG TAB PO SCH (08:53)
[2023-09-14] MEDS: FUROSEMIDE INJ 20 MG/2 ML VIAL IV SCH ×2 (08:53→17:46)
[2023-09-14] MEDS: INSULIN ASPART PER UNIT CHARGE SC SCH ×4 (09:00→20:53)
[2023-09-14] MEDS: MAGNESIUM OXIDE 400 MG TAB PO SCH ×2 (09:01→20:01)
[2023-09-14] MEDS: MoRPHine SULFATE 4 MG/ML 1 ML CARP\\VIAL IV PRN ×2 (09:02→19:34)
--- NOTE | 2023-09-14 11:59 | Cardiology Progress Note ---
Date of Service September 14, 2023 Assessment & Plan (1) Ischemic cardiomyopathy: (2) Acute systolic CHF (congestive heart failure): (3) Pulmonary embolism: (4) BRUNA (acute kidney injury): Plan LVEF 27% down from 45% a few years ago. Discontinue milrinone today. Patient with low cardiac output symptoms prompting initiation of milrinone on 09/09/2023 creatinine subsequently improved from 1.8 to 1.45 --> 1.42 --> 1.14 --> 1.09 --> 0.94 mg/dL. Holding oral nitrates, oral hydralazine, lisinopril, due to hypotension. Continue metoprolol to 25 mg twice daily (titrated yesterday 09/13/2023). Restart lisinopril at reduced dose, 10 mg daily. Continue furosemide 20 mg IV BID. Supplement potassium. Monitor daily weight, fluid balance, GFR, and electrolytes. Continue chronic clopidogrel due to history of stroke, carotid revascularization, CAD. IV heparin transition to Eliquis for treatment of PE. Admission and Anticipated Discharge Date Admission Date: September 08, 2023 Subjective Patient seen examined the bedside. Fluid balance -3.6 L. Creatinine continues to trend downward. Blood pressure trending upward. Telemetry with sinus rhythm with a heart rate ranging from 90-100 bpm. Patient denies palpitations or chest discomfort. Edema improving. Review of Systems Review of Systems: All systems reviewed & are unremarkable except as noted in Subjective Physical Exam Constitutional: well nourished; no acute distress Respiratory: no labored breathing and no retractions Auscultation: no rales, no rhonchi and no wheezes Cardiovascular: Rate/Rhythm: regular rate, regular rhythm and + tachycardic Heart Sounds: normal S1 and normal S2; no murmur Vessels: + JVD Extremities: + edema (1-2+ lower extremity edema) Gastrointestinal (Abdomen): Inspection/Auscultation: normal bowel sounds; abdomen not distended Percussion/Palpation: abdomen soft; abdomen nontender, no guarding and abdomen not rigid Neurologic: CN's II-XI intact bilaterally and moves all extremities; no focal motor deficits Results & Data Vital Signs (Past 12 Hours) Vital Signs Temp Pulse Pulse Resp BP Pulse Ox O2 Del Method 09/14/23 10:55 93 H 19 131/82 94 Nasal Cannula 09/14/23 07:17 101 H 09/14/23 07:13 36.6 C 106 H 20 128/80 95 Nasal Cannula 09/14/23 03:24 37.1 C 108 H 22 148/77 H 92 Nasal Cannula O2 Flow Rate 09/14/23 10:55 4.0 09/14/23 07:17 09/14/23 07:13 3 09/14/23 03:24 2 Laboratory Results Cardiac Enzymes 09/14/23 Range/Units 05:41 AST 27 (13-39) U/L Coagulation 09/13/23 Range/Units 15:02 APTT 38.4 H (21.0-31.0) Seconds CBC 09/14/23 Range/Units 05:41 WBC 16.80 H (4.8-10.8) K/ul RBC 5.16 (4.70-6.10) M/uL Hgb 14.4 (14.0-18.0) g/dl Hct 40.2 L (42.0-52.0) % Plt Count 128 L (130-400) K/uL Neut # (Auto) 13.74 H (1.40-6.50) K/uL Lymph # (Auto) 1.43 (1.20-3.40) K/uL Prentiss # (Auto) 1.25 H (0.11-0.59) K/uL Eos # (Auto) 0.15 (0.00-0.50) K/uL Baso # (Auto) 0.04 (0.00-0.20) K/uL Comprehensive Metabolic Panel 09/14/23 Range/Units 05:41 Sodium 138 (136-145) mmol/L Potassium 3.1 L (3.5-5.1) mmol/L Chloride 101 (98-107) mmol/L Carbon Dioxide 31 (21-32) mmol/L BUN 11 (6-23) mg/dl Creatinine 0.94 (0.6-1.4) mg/dl Glucose 145 H (70-99(Fasting)) mg/dl Calcium 8.1 L (8.6-10.3) mg/dl AST 27 (13-39) U/L ALT 39 (7-52) U/L Alkaline Phosphatase 101 (34-104) U/L Total Protein 5.9 L (6.0-8.3) gm/dl Albumin 2.6 L (3.4-5.0) gm/dl Intake and Output 09/13/23 09/14/23 09/14/23 22:59 06:59 14:59 Intake Total 539.645 / 1827.502 0.688 / 0.688 Output Total 2250 / 5600 900 / 5600 Balance -1710.355 / -3772.498 -900 / -3772.498 0.688 / 0.688 Intake: IV 289.645 / 1457.502 0.688 / 0.688 Heparin Sodium/Dextrose 25,000 0.333 / 275.333 units In 500 ml @ 1,050 UNITS/ HR 21 mls/hr IV .[id number] [facility] Rx #:[id number] Iron Sucrose 300 mg In Sodium 265 / 265 Chloride 0.9% 250 ml @ 176.667 mls/hr IV [facility] Rx#: [id number] Milrinone Lactate/D5w 20,000 24.312 / 24.312 0.688 / 0.688 mcg In 100 ml @ 0.125 MCG/KG/ MIN 2.951 mls/hr IV .Q24H [facility] Rx#:[id number] Oral 250 / 370 Output: Urine Amount (Catheter) 2250 / 5600 900 / 5600 Rushing/Indwelling 2250 / 5600 900 / 5600 Other: Other Intake Source Sips Weight 78.2 kg Weight Measurement Method Built in [facility]
[2023-09-14] MEDS: ACETAMINOPHEN 325 MG TAB PO PRN (12:30)
[2023-09-14] MEDS: lisinopril 10 MG TAB PO SCH (13:13)
[2023-09-14] MEDS: traMADol HCL 50 MG TABLET PO PRN ×2 (13:19→17:08)
--- NOTE | 2023-09-14 14:46 | Pulmonology Progress Note ---
Date of Service September 14, 2023 Assessment & Plan (1) Pulmonary embolism: (2) Acute CHF: (3) Pulmonary infarct: Plan Impression: 52-year-old male with multiple medical problems admitted with CHF exacerbation. He has been treated empirically for pneumonia but his procalcitonin was negative on presentation. No cultures have been obtained. There was concern that his oxygen requirements persistent however most recent imaging demonstrates persistent fluid overload. He was also noted to have PEs and has been anticoagulated. CT findings may represent pulmonary infarcts. Recommendations: 1. Acute PEs: Continue lifelong anticoagulation. Agree with Eliquis. 2. Abnormal CT scan: CT was independently reviewed. It does demonstrate some wedge-shaped opacities which may be consistent with pulmonary infarcts. Typically these resolve over time and a follow-up CT scan without contrast in 8 to 12 weeks would be recommended. Infection difficult to exclude. 3. Community-acquired pneumonia: The patient has been on antibiotics since her presentation. Procalcitonin is elevated mildly to 0.83. Patient remains afebrile. He does have a persistent leukocytosis. Recommend continuing oral antibiotics for 5 to 7 days. Recommend obtaining urine cultures, blood cultures and sputum cultures. 4. Pleural effusions: Secondary to decompensated CHF. Continue diuresis as able. 5. Hypoxemia: Multifactorial secondary to PEs and heart failure. Continue diuresis. Wean oxygen to keep oxygen saturations at or above 88%. Patient may require supplemental oxygen at discharge. 6. Patient does relate a significant history of tobacco abuse. Consideration for outpatient PFTs may be appropriate. No further recommendations at this time. Pulmonary to sign off. Thank you for allowing us to participate in the care of this patient. Please call with questions. Admission and Anticipated Discharge Date Admission Date: September 08, 2023 Subjective Patient seen and examined. No new complaints. Continues to require 4 L of oxygen at rest to maintain saturations in the 90s. Patient denies any chest pain. Patient tapering down on milrinone infusion. Discussed personally with cardiology and hospitalist service. Review of Systems Review of Systems: All systems reviewed & are unremarkable except as noted in HPI & below Physical Exam Constitutional: well nourished; no acute distress Respiratory: no labored breathing and no retractions Auscultation: no rales, no rhonchi and no wheezes Cardiovascular: Rate/Rhythm: regular rate, regular rhythm and + tachycardic Heart Sounds: normal S1 and normal S2; no murmur Vessels: + JVD Extremities: + edema (2+ lower extremity edema) Gastrointestinal (Abdomen): Inspection/Auscultation: normal bowel sounds; abdomen not distended Percussion/Palpation: abdomen soft; abdomen nontender, no guarding and abdomen not rigid Neurologic: CN's II-XI intact bilaterally and moves all extremities; no focal motor deficits Results & Data Results & Data Vital Signs (Past 12 Hours) Vital Signs Temp Pulse Pulse Resp BP Pulse Ox O2 Del Method 09/14/23 14:25 Nasal Cannula 09/14/23 10:55 93 H 19 131/82 94 Nasal Cannula 09/14/23 07:17 101 H 09/14/23 07:13 36.6 C 106 H 20 128/80 95 Nasal Cannula 09/14/23 03:24 37.1 C 108 H 22 148/77 H 92 Nasal Cannula O2 Flow Rate 09/14/23 14:25 4 09/14/23 10:55 4.0 09/14/23 07:17 09/14/23 07:13 3 09/14/23 03:24 2 PG Care Time/CCT Total # of Minutes Spent Total Time Spent with Patient: Total time spent is greater than 50% in coordination of care (as documented) at patient's floor/unit and/or counseling patient: Coding Level of Care Code 79625 SUB INP/OBS CARE 2/35MIN Diagnoses Pulmonary embolism I26.99 Acute CHF I50.9 Pulmonary infarct I26.99
[2023-09-14] MEDS ORDERED: POTASSIUM CHLORIDE CRTAB 20 MEQ TABCR PO STA (15:24)
--- NOTE | 2023-09-14 15:24 | Hospitalist Progress Note ---
Date of Service September 14, 2023 Assessment & Plan (1) Pneumonia: (2) Acute systolic CHF (congestive heart failure): (3) Ischemic cardiomyopathy: (4) Hypoxia: (5) Pulmonary embolism: (6) Elevated troponin: (7) Elevated LFTs: (8) H/O: CVA (cerebrovascular accident): (9) CAD (coronary artery disease): (10) DM type 2 (diabetes mellitus, type 2): (11) Hypertension: (12) Prolonged QT interval: (13) CKD (chronic kidney disease), stage III: Plan 52-year-old male with PMH significant for DM type II, ischemic cardiomyopathy, systolic CHF, GERD, CKD stage III, history of CVA, right carotid endarterectomy, CAD, NSTEMI 2014 s/p BRUCE to RCA, depression, anxiety, and other problems listed below who presented with bilateral lower extremity swelling and shortness of breath. Acute hypoxemic Respiratory Failure Pneumonia Pulmonary Emboli Pulmonary Infarct Chronic Anemia, iron deficiency Pt currently on 5L of oxygen, does not use oxygen at baseline Chest XRAY with patchy bibasilar and midlung opacities suspicious for superimposed pneumonia Chest CTA suggestive of pneumonia vs. pulmonary infarcts as well with noted bilateral areas of wedge-shaped consolidation, most pronounced within the left upper and bilateral lower lobes WBC increased and while downtrending remains persistently elevated in spite of rocephin and doxycycline treatment, not currently on steroids MRSA nares negative Previously treated with Rocephin --> Cefepime for pseudomonas coverage, doxycycline and Flagyl for anaerobic coverage. Pulmonology Consult on 09/13, appreciate recs -Transition to oral DOAC/coumadin for PE -CTA more suggestive of pulm infarct that will likely resolve over time, can cause noninfectious leukocytosis -Recommending followup CT scan w/o contrast in 8-12 weeks after discharge -Pneumonia less likely, but continue with 2 more days of amoxil and zithromax. If AM procal negative, can discontinue abx. -Continue IV diuresis for pleural effusions until BUN/Cr elevated -Hypoxemia likely due to CHF, PE, goal O2 sat >88%, will likely need oxygen on discharge Outpt PFTs due to tobacco Hx 09/14: Clinically stable and remains weak and lethargic but denies any increasing shortness of breath Afebrile and hemodynamically stable Procalcitonin remains little elevated and will continue oral antibiotic For 5 to 7 days more Continue with PT and OT likely discharge tomorrow Acute systolic CHF (congestive heart failure) Presented with increasing shortness of breath and lower extremity edema, noted to be hypoxemic on room air Acute systolic heart failure with history of cardiomyopathy Appreciate cardiology recs/care: -Milrinone drip, Lasix with supplemental potassium -Oral nitrates, oral hydralazine, lisinopril currently on hold -Metoprolol succinate to 12.5 mg twice daily added -Monitor daily weight, fluid balance, GFR, and electrolytes -Continue chronic clopidogrel due to history of stroke, carotid revascularization, CAD. 09/14: Metoprolol dose has been increased to 25 twice daily and lisinopril has been restarted at a smaller dose of 10 mg daily We will continue Lasix 20 mg IV twice daily now and changed to oral on discharge He has been clinically stable and feeling better Ischemic cardiomyopathy History of ischemic cardiomyopathy and noted to have EF of 27% Echo showed-inferior scar similar to previous, diffuse left ventricular hypokinesis with EF of 27%, mild diffuse right ventricular hypokinesis was noted as well. Significant changes compared to echo of 2020 Further management as noted above Anemia, iron deficiency Pt also anemic with noted low iron levels currently 25 Likely also contributing to hypoxia Currently on NC 4L-6L IV Venofer 300mg ordered on 09/13, repeat iron level in AM Hemoglobin remains normal at 14.4 Pulmonary embolism Noted to have bilateral pulmonary emboli No evidence of DVT on doppler Was on heparin drip, transitioned to PO Eliquis on 09/13 We will continue with Eliquis Elevated troponin Trops have plateaued in setting of acute systolic heart failure with history of cardiomyopathy Elevated LFTs T. bili 3.4, AST 55, ALT 216, alk phos 81 INR 1.7 MELD 23 RUQ US noted "heterogeneous liver with suggestion of mild hepatic steatosis and equivocal cirrhosis and was concerning for a 1.7 cm echogenic left hepatic lobe lesion, possibly a hemangioma.Follow up MRI recommended on discharge. Likely congestive hepatopathy from CHF GI consult-appreciate input and recommendation -ordered AIH serologies, acute hepatitis panel, viral panel (CMV,EBV,Parvo,HSV) -noted "Will arrange f/u in GI clinic after DC to r/o cirrhosis using Fibroscan vs liver bx, obtain MRI liver imaging to furhter characterize liver lesion" Continue to trend LFTs H/O: CVA (cerebrovascular accident) Continue Plavix Holding statin due to elevated LFTs CAD (coronary artery disease) History of NSTEMI in 2014 s/p BRUCE to RCA Continue Plavix and beta-marcial, holding statin due to elevated LFTs DM type 2 (diabetes mellitus, type 2) Hgb A1c 7.0 on 09/09 Patient self stopped metformin 1 year ago NovoLog per protocol while hospitalized Hypertension BP elevated on presentation Holding lisinopril, hydralazine, oral nitrates per cardiology Hold amlodipine. Patient typically only utilizes on an as needed basis. Metoprolol succinate dose has been increased to 12.5 mg twice daily Prolonged QT interval QTc 541 Avoid QTc prolonging agents, daily EKG CKD (chronic kidney disease), stage III Baseline creatinine ~ 1.4 Creatinine wnl at this time Continue to monitor renal function CODE STATUS: Full code Diet:DMII, HH, Low sodium DVT PROPHYLAXIS:Transitioned to PO Eliquis Dispo:Pt is ambulatory at baseline, no oxygen use at baseline. Will need 2 step, also evaluation by PT/OT. Orders for PT/OT placed. Likely discharge tomorrow to [facility] Admission and Anticipated Discharge Date Admission Date: September 08, 2023 Subjective 09/09/2023 The patient was seen and examined in telemetry unit He has been feeling a little better since admission Decreasing shortness of breath, denies any pain, denies any nausea and or vomiting 09/10/2023 The patient was seen and examined in telemetry unit He has been feeling better but has had urinary retention last night and required Rushing insertion Awaiting urology evaluation Denies any other significant symptoms 09/11/2023 The patient was seen and examined in telemetry unit He has been feeling a little better Enrrique very weak and lethargic and has not been out of bed Denies any shortness of breath at rest 09/14/2023 The patient was seen and examined in telemetry unit He has been feeling a little better Complains pain in the lower back and in the legs No chest pain, palpitation or shortness of breath-has been requiring 4 L of oxygen to maintain saturation Review of Systems Review of Systems: All systems reviewed and are unremarkable except as noted below Physical Exam Physical Exam: Lying in bed comfortably Constitutional: well developed, well nourished, + ill appearing and average body habitus Eyes: PERRL, conjunctivae normal, anicteric sclerae ENMT: external ear and nose normal, oropharynx normal Neck: trachea midline, no thyromegaly Respiratory: + respiratory distress Auscultation: + diminished lung sounds Cardiovascular: Rate/Rhythm: regular rate and regular rhythm Heart Sounds: normal S1, normal S2 and + murmur Extremities: + edema (1+ edema bilaterally) Gastrointestinal (Abdomen): Inspection/Auscultation: normal bowel sounds; abdomen not distended Percussion/Palpation: abdomen soft; abdomen nontender Musculoskeletal: No acute arthritis involving any joint Neurologic: normal touch/pain/proprioception and moves all extremities; no focal motor deficits Psychiatric: A+Ox3, euthymic affect Lymphatic: no cervical or axillary lymphadenopathy Results & Data Results & Data Vital Signs (Past 12 Hours) Vital Signs Temp Pulse Pulse Resp BP Pulse Ox O2 Del Method 09/14/23 14:25 Nasal Cannula 09/14/23 10:55 93 H 19 131/82 94 Nasal Cannula 09/14/23 07:17 101 H 09/14/23 07:13 36.6 C 106 H 20 128/80 95 Nasal Cannula 09/14/23 03:24 37.1 C 108 H 22 148/77 H 92 Nasal Cannula O2 Flow Rate 09/14/23 14:25 4 09/14/23 10:55 4.0 09/14/23 07:17 09/14/23 07:13 3 09/14/23 03:24 2 Laboratory Results Short CBC 09/14/23 Range/Units 05:41 WBC 16.80 H (4.8-10.8) K/ul Hgb 14.4 (14.0-18.0) g/dl Hct 40.2 L (42.0-52.0) % Plt Count 128 L (130-400) K/uL BMP 09/14/23 05:41 Sodium 138 Potassium 3.1 L Chloride 101 Carbon Dioxide 31 BUN 11 Creatinine 0.94 Glucose 145 H Calcium 8.1 L Liver Function 09/14/23 Range/Units 05:41 Total Bilirubin 2.9 H (0.2-1.0) mg/dl AST 27 (13-39) U/L ALT 39 (7-52) U/L Alkaline Phosphatase 101 (34-104) U/L Albumin 2.6 L (3.4-5.0) gm/dl Medications Administered Current Inpatient Medications Acetaminophen (Acetaminophen 325 Mg Tab) 650 mg PO Q4H PRN PRN Reason: Pain or Fever Stop: 10/08/23 17:28 Last Admin: 09/14/23 12:30 Dose: 650 mg Amoxicillin (Amoxicillin 500 Mg Cap) 1,000 mg PO TID [facility] Stop: 09/20/23 08:59 Last Admin: 09/14/23 13:23 Dose: 1,000 mg Apixaban (Apixaban 5 Mg Tablet) 10 mg PO Q12H YADIRA Stop: 09/20/23 06:01 Last Admin: 09/14/23 05:44 Dose: 10 mg Azithromycin (Azithromycin 250 Mg Tab) 250 mg PO QAM YADIRA Stop: 09/20/23 08:59 Last Admin: 09/14/23 08:52 Dose: 250 mg Clopidogrel Bisulfate (Clopidogrel Bisulfate 75 Mg Tab) 75 mg PO DAILY [facility] Stop: 10/09/23 08:59 Last Admin: 09/14/23 08:52 Dose: 75 mg Dextrose (Dextrose 50% 50 Ml Syringe) 25 - 50 ml IV UD PRN; Protocol PRN Reason: Hypoglycemia Protocol Stop: 10/08/23 17:28 Docusate Sodium (Docusate Sodium 100 Mg Cap) 100 mg PO BID [facility] Stop: 10/12/23 11:44 Last Admin: 09/14/23 08:52 Dose: 100 mg Furosemide (Furosemide Inj 20 Mg/2 Ml Vial) 20 mg IV BID17 [facility] Stop: 10/11/23 16:59 Last Admin: 09/14/23 08:53 Dose: 20 mg Glucagon (Glucagon For Inj 1 Mg Vial) 1 mg SQ UD PRN; Protocol PRN Reason: Hypoglycemia Protocol Stop: 10/08/23 17:28 Glucose (Glucose 10 Tab/Tube) 4 - 8 tab PO UD PRN; Protocol PRN Reason: Hypoglycemia Treatment Stop: 10/08/23 17:28 Glucose (Glucose 40% Gel 15 Gm Tube) 15 - 30 gm PO UD PRN; Protocol PRN Reason: Hypoglycemia Protocol Stop: 10/08/23 17:28 Prochlorperazine 5 mg/ Syringe 5 mls @ 5 mls/min IV Q6H PRN PRN Reason: Nausea And Vomiting Stop: 10/08/23 16:29 Last Admin: 09/11/23 16:26 Dose: 5 mls/min Insulin Aspart (Insulin Aspart Per Unit Charge) 0 units SC ACHS [facility] Stop: 10/08/23 17:28 Last Admin: 09/14/23 12:28 Dose: 7 units Lisinopril (Lisinopril 10 Mg Tab) 10 mg PO QAM [facility] Stop: 10/14/23 12:14 Last Admin: 09/14/23 13:13 Dose: 10 mg Magnesium Oxide (Magnesium Oxide 400 Mg Tab) 400 mg PO BID [facility] Stop: 10/12/23 08:59 Last Admin: 09/14/23 09:01 Dose: 400 mg Melatonin (Melatonin 3 Mg Tab) 6 mg PO HS PRN PRN Reason: Sleep Stop: 10/09/23 21:13 Last Admin: 09/10/23 01:07 Dose: 6 mg Metoprolol Succinate (Metoprolol Succ 25mg Ext Rel Tab) 25 mg PO BID [facility] Stop: 10/13/23 20:59 Last Admin: 09/14/23 08:52 Dose: 25 mg Miscellaneous (Carbohydrates For Hypoglycemia ) 15 - 30 gm PO UD PRN PRN Reason: Hypoglycemia Protocol Stop: 10/08/23 17:28 Last Admin: 09/09/23 11:40 Dose: 15 gm Morphine Sulfate (Morphine Sulfate 4 Mg/Ml 1 Ml Carp\\Vial) 3 mg IV Q4H PRN PRN Reason: Pain Stop: 09/22/23 16:29 Last Admin: 09/14/23 09:02 Dose: 3 mg Pantoprazole Sodium (Pantoprazole 40 Mg Tab) 40 mg PO QAM [facility] Stop: 10/09/23 08:59 Last Admin: 09/14/23 08:53 Dose: 40 mg Polyethylene Glycol (Polyethylene (Miralax) 17 Gm Pack) 17 gm PO DAILY PRN PRN Reason: Constipation Stop: 10/12/23 11:41 Last Admin: 09/13/23 14:07 Dose: 17 gm Tramadol HCl (Tramadol Hcl 50 Mg Tablet) 25 mg PO Q4H PRN PRN Reason: Pain Stop: 10/14/23 12:49 Last Admin: 09/14/23 13:19 Dose: 25 mg (11) Hypertension Hypertension type: unspecified Qualified Code(s): I10 - Essential (primary) hypertension
[2023-09-15] MEDS: traMADol HCL 50 MG TABLET PO PRN ×4 (00:17→18:38)
[2023-09-15] MEDS: HEPARIN SODIUM/DEXTROSE 25,000 UNITS/500 ML BAG IV SCH ×3 (04:49→04:51)
[2023-09-15] MEDS: MILRINONE LACTATE/D5W 20,000 MCG/100 ML BAG IV SCH (04:53)
[2023-09-15] MEDS: APIXABAN 5 MG TABLET PO SCH ×2 (05:12→17:09)
[2023-09-15 07:07] LABS: Hematocrit (blood only) 41.2 % (42.0-52.0); Hemoglobin 14.4 g/dl (14.0-18.0); Mean Corpuscular Hemoglobin 27.6 pg (25.0-34.0); Mean Corpuscular Volume 78.9 fL (80.0-100.0); Mean Platelet Volume 10.8 fL (9.4-12.4); Platelet Count 141 K/uL (130-400); RDW Coefficient of Variation 17.2 % (11.5-14.5); Red Blood Count 5.22 M/uL (4.70-6.10); White Blood Count 16.09 K/ul (4.8-10.8)
[2023-09-15 07:36] LABS: Albumin Globulin Ratio 0.7 (0.9-2); Albumin Level 2.6 gm/dl (3.4-5.0); BUN Creatinine Ratio 14.7 (10-20); Bilirubin,Total 2.6 mg/dl (0.2-1.0); Calcium 8.2 mg/dl (8.6-10.3); Creatinine Clr Calc Pharmacy 82.1 ml/min; Est GFR (African American) 106.2 ml/min; Est GFR (Non-African American) 91.7 ml/min; Globulin 3.5 gm/dl (2.5-4.0); Magnesium 1.7 mg/dl (1.7-2.4); Phosphorus 1.6 mg/dl (2.5-4.9); Potassium 3.7 mmol/L (3.5-5.1); Total Protein 6.1 gm/dl (6.0-8.3)
[2023-09-15 07:58] LABS: Basophils # (auto) 0.05 K/uL (0.00-0.20); Basophils % (auto) 0.3 %; Eosinophils # (auto) 0.14 K/uL (0.00-0.50); Eosinophils % (auto) 0.9 %; Immature Granulocytes # (auto) 0.21 K/uL (0.01-0.20); Immature Granulocytes % (auto) 1.3 %; Lymphocytes # (auto) 1.68 K/uL (1.20-3.40); Lymphocytes % (auto) 10.4 %; Monocytes # (auto) 0.99 K/uL (0.11-0.59); Monocytes % (auto) 6.2 %; Neutrophils # (auto) 13.02 K/uL (1.40-6.50); Neutrophils % (auto) 80.9 %
[2023-09-15] MEDS ORDERED: POTASSIUM PHOS 3 MMOL/1 ML INFUSION IV STA (08:16)
[2023-09-15 08:22] LABS: Alpha 1 Antitrypsin 174 mg/dL (83-199); Anti Mitochondrial Antibody NEGATIVE (NEGATIVE); Anti Nuclear Antibody Screen NEGATIVE (NEGATIVE); CMV IgG Antibody >10.00 U/mL; CMV IgM Antibody <30.00 AU/mL; Ceruloplasmin 42 mg/dL (18-36); HBSAG NON-REACTIVE (NON-REACTIVE); HSV Type 1 DNA Not Detected (Not Detected); HSV Type 1&2 DNA Source Whole Blood; HSV Type 2 DNA Not Detected (Not Detected); Hepatitis A Antibody IgM NON-REACTIVE (NON-REACTIVE); Hepatitis B Core Antibody IgM NON-REACTIVE (NON-REACTIVE); Parvovirus IgG 5.9 (<0.9); Smooth Muscle Antibody NEGATIVE (NEGATIVE)
[2023-09-15] MEDS ORDERED: POTASSIUM PHOSPHATE 24 MMOL in SODIUM CHLORIDE 0.9% 500 ML IV ONE (08:30)
[2023-09-15] MEDS: INSULIN ASPART PER UNIT CHARGE SC SCH ×4 (09:12→21:17)
[2023-09-15] MEDS: CLOPIDOGREL BISULFATE 75 MG TAB PO SCH (09:16)
[2023-09-15] MEDS: AMOXICILLIN 500 MG CAP PO SCH ×3 (09:16→21:10)
[2023-09-15] MEDS: METOPROLOL SUCC 25MG EXT REL TAB PO SCH (09:16)
[2023-09-15] MEDS: lisinopril 10 MG TAB PO SCH (09:17)
[2023-09-15] MEDS: AZITHROMYCIN 250 MG TAB PO SCH (09:17)
[2023-09-15] MEDS: PANTOprazole 40 MG TAB PO SCH (09:17)
[2023-09-15] MEDS: MAGNESIUM OXIDE 400 MG TAB PO SCH ×2 (09:18→21:11)
[2023-09-15] MEDS: DOCUSATE SODIUM 100 MG CAP PO SCH ×2 (09:18→21:11)
[2023-09-15] MEDS: FUROSEMIDE INJ 20 MG/2 ML VIAL IV SCH ×2 (09:18→17:08)
--- NOTE | 2023-09-15 10:34 | Cardiology Progress Note ---
Date of Service September 15, 2023 Assessment & Plan (1) Ischemic cardiomyopathy: (2) Acute systolic CHF (congestive heart failure): (3) Pulmonary embolism: (4) BRUNA (acute kidney injury): Plan IMPRESSION: -Medically complex 52-year-old male initially admitted to [facility] due to symptoms of shortness of breath on 09/08/2023. -Echocardiogram with findings of inferior scar similar to previous, diffuse left ventricular hypokinesis noted otherwise, LVEF 27%, mild diffuse right ventricular hypokinesis noted as well. Compared to the previous echocardiogram performed in 2020, there has been an interval decline in the ejection fraction which was 55-60% at that time. -CTA of the chest revealed subsegmental bilateral pulmonary emboli with enlargement of the cardiac silhouette and pulmonary edema with a small left and moderate right pleural effusion. Anasarca noted with upper abdominal ascites on CTA. PLAN: HFrEF: Continue goal-directed medical therapy with lisinopril 10 mg daily. Increase metoprolol succinate to 50 mg BID. Patient remains hypervolemic on exam. Continue furosemide IV 20 mg twice daily Monitor renal function. Replace potassium to a goal of 4.0 and mag of 2.0 2 g sodium diet. Strict I&Os. Daily standing weights. CHF education Pulmonary embolism: IV heparin transitioned to Eliquis for treatment of PE 09/14/2023. No evidence of bleeding. ASCVD: Continue chronic clopidogrel due to history of stroke, carotid revascularization, CAD. Case discussed with Dr. Abreu-- further recommendations pending his assessment. Admission and Anticipated Discharge Date Admission Date: September 08, 2023 Supervising Physician Co-Signing Physician Notes Patient seen examined the bedside. Intravenous milrinone discontinued 09/13/2023. Fluid balance remains negative tolerating IV furosemide. Lisinopril restarted yesterday. Complains of low back pain. Denies orthopnea or PND. Edema unchanged. PE: VSS. Gen: NAD, AAO x3. Heart: Regular rhythm, normal S1-S2. No murmur. Lungs: Diminished breath sounds at the bases bilateral. Extremities: 1-2+ bilateral lower extremity edema. A/P: Agree with above [employer] history, physical exam, assessment and plan. Titrate metoprolol today. Continue IV Lasix. Consider addition of spironolactone pending review of a.m. labs. Subjective -Medically complex 52-year-old male initially admitted to [facility] due to symptoms of shortness of breath on 09/08/2023. -Echocardiogram with findings of inferior scar similar to previous, diffuse left ventricular hypokinesis noted otherwise, LVEF 27%, mild diffuse right ventricular hypokinesis noted as well. Compared to the previous echocardiogram performed in 2020, there has been an interval decline in the ejection fraction which was 55-60% at that time. -CTA of the chest revealed subsegmental bilateral pulmonary emboli with enlargement of the cardiac silhouette and pulmonary edema with a small left and moderate right pleural effusion. Anasarca noted with upper abdominal ascites on CTA. Patient was started on IV Lasix. Anticoagulated with heparin 09/09/2023: BRUNA noted on blood work-lisinopril held. Hydralazine and Isordil added for afterload reduction. Milrinone started for inotropic support. IV heparin for subsegmental pulmonary emboli. 09/10/2023: Initiation of milrinone on 09/09 improved serum creatinine from 1.8-1.4. Milrinone increased. Oral nitrates, hydralazine, lisinopril all held due to hypotension. Metoprolol succinate increased to 12 and half milligrams twice daily 09/11/2023: IV furosemide 20 mg twice daily started. 09/12/2023: Creatinine continues to improve 1.8>>1.4>>1.14 Lasix IV 20 mg twice daily continued Milrinone continued at 0.25 mg/kg/min 09/13/2023: Milrinone reduced to 0.125 mg/kg/min Creatinine continue to improve: 1.8 to 1.45 --> 1.42 --> 1.14 --> 1.09mg/dL Metoprolol increased to 25 mg twice daily Heparin continued. Furosemide continued at 20 mg IV twice daily. 09/14/2023: Milrinone discontinued. Serum creatinine normalizin.8 to 1.45 --> 1.42 --> 1.14 --> 1.09 --> 0.94 mg/dL Metoprolol continued at 25 mg twice daily Lisinopril restarted at 10 mg daily Lasix continued at 20 mg twice daily IV heparin discontinued in favor of Eliquis. 09/15/2023: Upon entrance into the room patient sitting up in the chair. No acute concerns. Denies exertional chest pain or unusual shortness of breath. Has been up ambulating to the bathroom. No lightheadedness or dizziness. Lower extremities remain edematous. Telemetry: Sinus rhythm/sinus tach with PVCs 90s to 100s. Blood pressures well controlled with systolics in the 120s to 130s over the last 12 hours Renal function stable. Scr 1.8 to 1.45 --> 1.42 --> 1.14 --> 1.09 --> 0.94 >>0.95 mg/dL Review of Systems Review of Systems: All systems reviewed & are unremarkable except as noted in HPI & below Physical Exam Constitutional: well nourished; no acute distress Eyes: PERRL, conjunctivae normal, anicteric sclerae Respiratory: normal respiratory effort, lungs clear to auscultation Auscultation: no crackles, no rales, no rhonchi and no wheezes Cardiovascular: Rate/Rhythm: regular rate, regular rhythm and + tachycardic Heart Sounds: normal S1 and normal S2; no murmur Vessels: + JVD Extremities: + edema (1-2+ lower extremity/pedal edema) Gastrointestinal (Abdomen): Inspection/Auscultation: normal bowel sounds; abdomen not distended Percussion/Palpation: abdomen soft and + ascites; abdomen nontender, no guarding and abdomen not rigid Neurologic: PERRL, EOMI, accommodation nl, no face palsy, no dysarthria CN's II-XI intact bilaterally and moves all extremities; no focal motor deficits Psychiatric: A+Ox3, euthymic affect Results & Data Vital Signs (Past 12 Hours) Vital Signs Temp Pulse Resp BP BP Pulse Ox O2 Del Method 09/15/23 08:07 36.4 C L 93 H 18 131/76 94 Room Air 09/15/23 05:17 98 Nasal Cannula 09/15/23 05:16 92 H 20 98 Room Air 09/15/23 02:58 37 C 94 H 19 129/83 90 Nasal Cannula 09/14/23 23:56 36.7 C 100 H 18 121/77 98 Nasal Cannula O2 Flow Rate FiO2 09/15/23 08:07 09/15/23 05:17 4 36 09/15/23 05:16 4 09/15/23 02:58 4 09/14/23 23:56 4 Laboratory Results Cardiac Enzymes 09/15/23 Range/Units 06:19 AST 25 (13-39) U/L CBC 09/15/23 Range/Units 06:19 WBC 16.09 H (4.8-10.8) K/ul RBC 5.22 (4.70-6.10) M/uL Hgb 14.4 (14.0-18.0) g/dl Hct 41.2 L (42.0-52.0) % Plt Count 141 (130-400) K/uL Neut # (Auto) 13.02 H (1.40-6.50) K/uL Lymph # (Auto) 1.68 (1.20-3.40) K/uL [place] # (Auto) 0.99 H (0.11-0.59) K/uL Eos # (Auto) 0.14 (0.00-0.50) K/uL Baso # (Auto) 0.05 (0.00-0.20) K/uL Comprehensive Metabolic Panel 09/15/23 Range/Units 06:19 Sodium 137 (136-145) mmol/L Potassium 3.7 (3.5-5.1) mmol/L Chloride 103 (98-107) mmol/L Carbon Dioxide 29 (21-32) mmol/L BUN 14 (6-23) mg/dl Creatinine 0.95 (0.6-1.4) mg/dl Glucose 158 H (70-99(Fasting)) mg/dl Calcium 8.2 L (8.6-10.3) mg/dl AST 25 (13-39) U/L ALT 30 (7-52) U/L Alkaline Phosphatase 103 (34-104) U/L Total Protein 6.1 (6.0-8.3) gm/dl Albumin 2.6 L (3.4-5.0) gm/dl Intake and Output 09/14/23 09/15/23 09/15/23 22:59 06:59 14:59 Output Total 1375 / 3525 1000 / 3525 Balance -1375 / -3324.312 -1000 / -3324.312 Output: Urine Amount (Catheter) 1375 / 3525 1000 / 3525 Rushing/Indwelling 1375 / 3525 1000 / 3525 Other: Other Intake Source sips sips Weight 73.3 kg Weight Measurement Method Built in [facility]
--- NOTE | 2023-09-15 10:39 | XRay Report ---
XR chest 1V portable CLINICAL HISTORY: CHF TECHNIQUE: Single frontal radiograph of the chest was obtained. Comparison: Comparison is made to chest radiograph 09/08/2023 FINDINGS: No lines and tubes are seen. Cardiomegaly is noted. The aortic arch is calcified. There is prominence and cephalization of the vasculature with Latoya B lines seen. Redemonstration of bilateral lower keeley ng predominant airspace opacities. IMPRESSION: 1. Cardiomegaly and moderate pulmonary edema. This appears slightly increased from prior exam. 2. Patchy airspace opacities may reflect pneumonia. ACT 112: Negative or not required by law. Electronically signed by: Bob Saunders M.D. 09/15/2023 10:38 AM
[2023-09-15] MEDS ORDERED: METOPROLOL SUCC 25MG EXT REL TAB PO ONE (11:28)
[2023-09-15] MEDS ORDERED: FUROSEMIDE INJ 20 MG/2 ML VIAL IV ONE (12:47)
[2023-09-15] MEDS: ACETAMINOPHEN 325 MG TAB PO PRN ×2 (13:30→18:36)
--- NOTE | 2023-09-15 14:08 | Hospitalist Progress Note ---
Date of Service September 15, 2023 Assessment & Plan (1) Pneumonia: (2) Acute systolic CHF (congestive heart failure): (3) Ischemic cardiomyopathy: (4) Hypoxia: (5) Pulmonary embolism: (6) Elevated troponin: (7) Elevated LFTs: (8) H/O: CVA (cerebrovascular accident): (9) CAD (coronary artery disease): (10) DM type 2 (diabetes mellitus, type 2): (11) Hypertension: (12) Prolonged QT interval: (13) CKD (chronic kidney disease), stage III: Plan 52-year-old male with PMH significant for DM type II, ischemic cardiomyopathy, systolic CHF, GERD, CKD stage III, history of CVA, right carotid endarterectomy, CAD, NSTEMI 2014 s/p BRUCE to RCA, depression, anxiety, and other problems listed below who presented with bilateral lower extremity swelling and shortness of breath. Acute hypoxemic Respiratory Failure Pneumonia Pulmonary Emboli Pulmonary Infarct Chronic Anemia, iron deficiency Pt currently on 5L of oxygen, does not use oxygen at baseline Chest XRAY with patchy bibasilar and midlung opacities suspicious for superimposed pneumonia Chest CTA suggestive of pneumonia vs. pulmonary infarcts as well with noted bilateral areas of wedge-shaped consolidation, most pronounced within the left upper and bilateral lower lobes WBC increased and while downtrending remains persistently elevated in spite of rocephin and doxycycline treatment, not currently on steroids MRSA nares negative Previously treated with Rocephin --> Cefepime for pseudomonas coverage, doxycycline and Flagyl for anaerobic coverage. Pulmonology Consult on 09/13, appreciate recs -Transition to oral DOAC/coumadin for PE -CTA more suggestive of pulm infarct that will likely resolve over time, can cause noninfectious leukocytosis -Recommending followup CT scan w/o contrast in 8-12 weeks after discharge -Pneumonia less likely, but continue with 2 more days of amoxil and zithromax. If AM procal negative, can discontinue abx. -Continue IV diuresis for pleural effusions until BUN/Cr elevated -Hypoxemia likely due to CHF, PE, goal O2 sat >88%, will likely need oxygen on discharge Outpt PFTs due to tobacco Hx 09/14: Clinically stable and remains weak and lethargic but denies any increasing shortness of breath Afebrile and hemodynamically stable Procalcitonin remains little elevated and will continue oral antibiotic For 5 to 7 days more Continue with PT and OT likely discharge tomorrow Clinically much better likely discharge tomorrow to [facility] Acute systolic CHF (congestive heart failure) Presented with increasing shortness of breath and lower extremity edema, noted to be hypoxemic on room air Acute systolic heart failure with history of cardiomyopathy Appreciate cardiology recs/care: -Milrinone drip, Lasix with supplemental potassium -Oral nitrates, oral hydralazine, lisinopril currently on hold -Metoprolol succinate to 12.5 mg twice daily added -Monitor daily weight, fluid balance, GFR, and electrolytes -Continue chronic clopidogrel due to history of stroke, carotid revascularization, CAD. 09/14: Metoprolol dose has been increased to 25 twice daily and lisinopril has been restarted at a smaller dose of 10 mg daily We will continue Lasix 20 mg IV twice daily now and changed to oral on discharge He has been clinically stable and feeling better Chest x-ray showed pulmonary edema with possible pneumonia Will give extra Lasix today and monitor PRP and CBC Ischemic cardiomyopathy History of ischemic cardiomyopathy and noted to have EF of 27% Echo showed-inferior scar similar to previous, diffuse left ventricular hypokinesis with EF of 27%, mild diffuse right ventricular hypokinesis was noted as well. Significant changes compared to echo of 2020 Further management as noted above Anemia, iron deficiency Pt also anemic with noted low iron levels currently 25 Likely also contributing to hypoxia Currently on NC 4L-6L IV Venofer 300mg ordered on 09/13, repeat iron level in AM Hemoglobin remains normal at 14.4 Pulmonary embolism Noted to have bilateral pulmonary emboli No evidence of DVT on doppler Was on heparin drip, transitioned to PO Eliquis on 09/13 We will continue with Eliquis Elevated troponin Trops have plateaued in setting of acute systolic heart failure with history of cardiomyopathy Elevated LFTs T. bili 3.4, AST 55, ALT 216, alk phos 81 INR 1.7 MELD 23 RUQ US noted "heterogeneous liver with suggestion of mild hepatic steatosis and equivocal cirrhosis and was concerning for a 1.7 cm echogenic left hepatic lobe lesion, possibly a hemangioma.Follow up MRI recommended on discharge. Likely congestive hepatopathy from CHF GI consult-appreciate input and recommendation -ordered AIH serologies, acute hepatitis panel, viral panel (CMV,EBV,Parvo,HSV) -noted "Will arrange f/u in GI clinic after DC to r/o cirrhosis using Fibroscan vs liver bx, obtain MRI liver imaging to furhter characterize liver lesion" Continue to trend down LFTs H/O: CVA (cerebrovascular accident) Continue Plavix Holding statin due to elevated LFTs CAD (coronary artery disease) History of NSTEMI in 2013 s/p BRUCE to RCA Continue Plavix and beta-marcial, holding statin due to elevated LFTs No cardiac symptoms DM type 2 (diabetes mellitus, type 2) Hgb A1c 7.0 on 09/09 Patient self stopped metformin 1 year ago NovoLog per protocol while hospitalized Hypertension BP elevated on presentation Holding lisinopril, hydralazine, oral nitrates per cardiology Hold amlodipine. Patient typically only utilizes on an as needed basis. Metoprolol succinate dose has been increased to 12.5 mg twice daily Prolonged QT interval QTc 541 Avoid QTc prolonging agents, daily EKG CKD (chronic kidney disease), stage III Baseline creatinine ~ 1.4 Creatinine wnl at this time Continue to monitor renal function CODE STATUS: Full code Diet:DMII, HH, Low sodium DVT PROPHYLAXIS:Transitioned to PO Eliquis Dispo:Pt is ambulatory at baseline, no oxygen use at baseline. Will need 2 step, also evaluation by PT/OT. Orders for PT/OT placed. Possible discharge tomorrow Admission and Anticipated Discharge Date Admission Date: September 08, 2023 Subjective 09/09/2023 The patient was seen and examined in telemetry unit He has been feeling a little better since admission Decreasing shortness of breath, denies any pain, denies any nausea and or vomiting 09/10/2023 The patient was seen and examined in telemetry unit He has been feeling better but has had urinary retention last night and required Rushing insertion Awaiting urology evaluation Denies any other significant symptoms 09/11/2023 The patient was seen and examined in telemetry unit He has been feeling a little better Enrrique very weak and lethargic and has not been out of bed Denies any shortness of breath at rest 09/14/2023 The patient was seen and examined in telemetry unit He has been feeling a little better Complains pain in the lower back and in the legs No chest pain, palpitation or shortness of breath-has been requiring 4 L of oxygen to maintain saturation 09/15/2023 The patient was seen and examined in telemetry unit He has been feeling much better today Afebrile but white count remains elevated Denies any chest pain and/or palpitation and is saturating on room air Review of Systems Review of Systems: All systems reviewed and are unremarkable except as noted below Physical Exam Physical Exam: Lying in bed comfortably Constitutional: well developed, well nourished, + ill appearing and average body habitus Eyes: PERRL, conjunctivae normal, anicteric sclerae ENMT: external ear and nose normal, oropharynx normal Neck: trachea midline, no thyromegaly Respiratory: + respiratory distress Auscultation: + diminished lung sounds Cardiovascular: Rate/Rhythm: regular rate and regular rhythm Heart Sounds: normal S1, normal S2 and + murmur Extremities: + edema (1+ edema bilaterally) Gastrointestinal (Abdomen): Inspection/Auscultation: normal bowel sounds; abdomen not distended Percussion/Palpation: abdomen soft; abdomen nontender Musculoskeletal: No acute arthritis involving any of the joint Neurologic: normal touch/pain/proprioception and moves all extremities; no focal motor deficits Psychiatric: A+Ox3, euthymic affect Lymphatic: no cervical or axillary lymphadenopathy Results & Data Results & Data Vital Signs (Past 12 Hours) Vital Signs Temp Pulse Resp BP BP Pulse Ox O2 Del Method 09/15/23 11:44 36.3 C L 93 H 18 137/88 96 Room Air 09/15/23 08:07 36.4 C L 93 H 18 131/76 94 Room Air 09/15/23 05:17 98 Nasal Cannula 09/15/23 05:16 92 H 20 98 Room Air 09/15/23 02:58 37 C 94 H 19 129/83 90 Nasal Cannula O2 Flow Rate FiO2 09/15/23 11:44 09/15/23 08:07 09/15/23 05:17 4 36 09/15/23 05:16 4 09/15/23 02:58 4 Laboratory Results Short CBC 09/15/23 Range/Units 06:19 WBC 16.09 H (4.8-10.8) K/ul Hgb 14.4 (14.0-18.0) g/dl Hct 41.2 L (42.0-52.0) % Plt Count 141 (130-400) K/uL BMP 09/15/23 06:19 Sodium 137 Potassium 3.7 Chloride 103 Carbon Dioxide 29 BUN 14 Creatinine 0.95 Glucose 158 H Calcium 8.2 L Liver Function 09/15/23 Range/Units 06:19 Total Bilirubin 2.6 H (0.2-1.0) mg/dl AST 25 (13-39) U/L ALT 30 (7-52) U/L Alkaline Phosphatase 103 (34-104) U/L Albumin 2.6 L (3.4-5.0) gm/dl Medications Administered Current Inpatient Medications Acetaminophen (Acetaminophen 325 Mg Tab) 650 mg PO Q4H PRN PRN Reason: Pain or Fever Stop: 10/08/23 17:28 Last Admin: 09/15/23 13:30 Dose: 650 mg Amoxicillin (Amoxicillin 500 Mg Cap) 1,000 mg PO TID YADIRA Stop: 09/20/23 08:59 Last Admin: 09/15/23 09:16 Dose: 1,000 mg Apixaban (Apixaban 5 Mg Tablet) 10 mg PO Q12H YADIRA Stop: 09/20/23 06:01 Last Admin: 09/15/23 05:12 Dose: 10 mg Azithromycin (Azithromycin 250 Mg Tab) 250 mg PO QAM YADIRA Stop: 09/20/23 08:59 Last Admin: 09/15/23 09:17 Dose: 250 mg Clopidogrel Bisulfate (Clopidogrel Bisulfate 75 Mg Tab) 75 mg PO DAILY YADIRA Stop: 10/09/23 08:59 Last Admin: 09/15/23 09:16 Dose: 75 mg Dextrose (Dextrose 50% 50 Ml Syringe) 25 - 50 ml IV UD PRN; Protocol PRN Reason: Hypoglycemia Protocol Stop: 10/08/23 17:28 Docusate Sodium (Docusate Sodium 100 Mg Cap) 100 mg PO BID YADIRA Stop: 10/12/23 11:44 Last Admin: 09/15/23 09:18 Dose: 100 mg Furosemide (Furosemide Inj 20 Mg/2 Ml Vial) 20 mg IV [id number] YADIRA Stop: 10/11/23 16:59 Last Admin: 09/15/23 09:18 Dose: 20 mg Glucagon (Glucagon For Inj 1 Mg Vial) 1 mg SQ UD PRN; Protocol PRN Reason: Hypoglycemia Protocol Stop: 10/08/23 17:28 Glucose (Glucose 10 Tab/Tube) 4 - 8 tab PO UD PRN; Protocol PRN Reason: Hypoglycemia Treatment Stop: 10/08/23 17:28 Glucose (Glucose 40% Gel 15 Gm Tube) 15 - 30 gm PO UD PRN; Protocol PRN Reason: Hypoglycemia Protocol Stop: 10/08/23 17:28 Prochlorperazine 5 mg/ Syringe 5 mls @ 5 mls/min IV Q6H PRN PRN Reason: Nausea And Vomiting Stop: 10/08/23 16:29 Last Admin: 09/11/23 16:26 Dose: 5 mls/min Potassium Phosphate 24 mmol/ (Sodium Chloride) 508 mls @ 88 mls/hr IV ONE ONE Stop: 09/15/23 14:16 Last Admin: 09/15/23 09:15 Dose: 88 mls/hr Insulin Aspart (Insulin Aspart Per Unit Charge) 0 units SC ACHS [facility] Stop: 10/08/23 17:28 Last Admin: 09/15/23 13:26 Dose: 4 units Lisinopril (Lisinopril 10 Mg Tab) 10 mg PO QAM [facility] Stop: 10/14/23 12:14 Last Admin: 09/15/23 09:17 Dose: 10 mg Magnesium Oxide (Magnesium Oxide 400 Mg Tab) 400 mg PO BID [facility] Stop: 10/12/23 08:59 Last Admin: 09/15/23 09:18 Dose: 400 mg Melatonin (Melatonin 3 Mg Tab) 6 mg PO HS PRN PRN Reason: Sleep Stop: 10/09/23 21:13 Last Admin: 09/10/23 01:07 Dose: 6 mg Metoprolol Succinate (Metoprolol Succ 50mg Ext Rel Tab) 50 mg PO BID [facility] Stop: 10/15/23 20:59 Miscellaneous (Carbohydrates For Hypoglycemia ) 15 - 30 gm PO UD PRN PRN Reason: Hypoglycemia Protocol Stop: 10/08/23 17:28 Last Admin: 09/09/23 11:40 Dose: 15 gm Morphine Sulfate (Morphine Sulfate 4 Mg/Ml 1 Ml Carp\\Vial) 3 mg IV Q4H PRN PRN Reason: Pain Stop: 09/22/23 16:29 Last Admin: 09/14/23 19:34 Dose: 3 mg Pantoprazole Sodium (Pantoprazole 40 Mg Tab) 40 mg PO QAM [facility] Stop: 10/09/23 08:59 Last Admin: 09/15/23 09:17 Dose: 40 mg Polyethylene Glycol (Polyethylene (Miralax) 17 Gm Pack) 17 gm PO DAILY PRN PRN Reason: Constipation Stop: 10/12/23 11:41 Last Admin: 09/13/23 14:07 Dose: 17 gm Tramadol HCl (Tramadol Hcl 50 Mg Tablet) 25 mg PO Q4H PRN PRN Reason: Pain Stop: 10/14/23 12:49 Last Admin: 09/15/23 13:31 Dose: 25 mg (11) Hypertension Hypertension type: unspecified Qualified Code(s): I10 - Essential (primary) hypertension
[2023-09-15] MEDS: METOPROLOL SUCC 50MG EXT REL TAB PO SCH (21:12)
[2023-09-16] MEDS: ACETAMINOPHEN 325 MG TAB PO PRN ×3 (02:53→22:36)
[2023-09-16] MEDS: traMADol HCL 50 MG TABLET PO PRN ×3 (02:53→22:35)
[2023-09-16] MEDS ORDERED: Nursing to Pharmacy Communication SCH (06:00)
[2023-09-16 07:09] LABS: Hematocrit (blood only) 39.5 % (42.0-52.0); Hemoglobin 13.8 g/dl (14.0-18.0); Mean Corpuscular Hemoglobin 27.5 pg (25.0-34.0); Mean Corpuscular Hgb Conc 34.9 g/dL (32.0-36.0); Mean Corpuscular Volume 78.7 fL (80.0-100.0); Mean Platelet Volume 11.7 fL (9.4-12.4); Platelet Count 159 K/uL (130-400); RDW Standard Deviation 48.6 fL (36.4-46.3); Red Blood Count 5.02 M/uL (4.70-6.10); White Blood Count 12.65 K/ul (4.8-10.8)
[2023-09-16 07:32] LABS: BUN Creatinine Ratio 13.7 (10-20); Creatinine Clr Calc Pharmacy 82.1 ml/min; Est GFR (African American) 106.2 ml/min; Est GFR (Non-African American) 91.7 ml/min; Potassium 3.2 mmol/L (3.5-5.1)
[2023-09-16] MEDS ORDERED: POTASSIUM CHLORIDE CRTAB 20 MEQ TABCR PO STA (07:37)
[2023-09-16 07:38] LABS: Basophils # (auto) 0.04 K/uL (0.00-0.20); Basophils % (auto) 0.3 %; Echinocytes 1+; Eosinophils # (auto) 0.11 K/uL (0.00-0.50); Eosinophils % (auto) 0.9 %; Immature Granulocytes # (auto) 0.19 K/uL (0.01-0.20); Immature Granulocytes % (auto) 1.5 %; Lymphocytes # (auto) 2.07 K/uL (1.20-3.40); Lymphocytes % (auto) 16.4 %; Monocytes # (auto) 0.59 K/uL (0.11-0.59); Monocytes % (auto) 4.7 %; Neutrophils # (auto) 9.65 K/uL (1.40-6.50); Neutrophils % (auto) 76.2 %; Tear Drop Cells 1+
[2023-09-16] MEDS: INSULIN ASPART PER UNIT CHARGE SC SCH ×5 (08:02→20:36)
[2023-09-16 08:03] LABS: Magnesium 1.7 mg/dl (1.7-2.4)
[2023-09-16] MEDS ORDERED: PHARMACY GLYCEMIC MGMT CONSULT PRN (08:08)
[2023-09-16] MEDS ORDERED: LANTUS PER UNIT CHARGE SC STA (08:51)
[2023-09-16] MEDS: SPIRONOLACTONE 25 MG TAB PO SCH (09:07)
[2023-09-16] MEDS: AMOXICILLIN 500 MG CAP PO SCH ×3 (09:09→20:34)
[2023-09-16] MEDS: APIXABAN 5 MG TABLET PO SCH ×2 (09:15→20:35)
[2023-09-16] MEDS: CLOPIDOGREL BISULFATE 75 MG TAB PO SCH (09:16)
[2023-09-16] MEDS: DOCUSATE SODIUM 100 MG CAP PO SCH ×2 (09:16→20:34)
[2023-09-16] MEDS: AZITHROMYCIN 250 MG TAB PO SCH (09:16)
[2023-09-16] MEDS: lisinopril 10 MG TAB PO SCH (09:16)
[2023-09-16] MEDS: MAGNESIUM OXIDE 400 MG TAB PO SCH ×2 (09:16→20:34)
[2023-09-16] MEDS: FUROSEMIDE INJ 20 MG/2 ML VIAL IV SCH ×2 (09:16→16:52)
[2023-09-16] MEDS: PANTOprazole 40 MG TAB PO SCH (09:17)
[2023-09-16] MEDS: METOPROLOL SUCC 50MG EXT REL TAB PO SCH ×2 (09:17→20:35)
--- NOTE | 2023-09-16 10:24 | Cardiology Progress Note ---
Date of Service September 16, 2023 Assessment & Plan (1) Ischemic cardiomyopathy: (2) Acute systolic CHF (congestive heart failure): (3) Pulmonary embolism: (4) BRUNA (acute kidney injury): Plan LVEF 27% down from 45% a few years ago. History of inferior STEMI s/p PCI RCA and CVA status post carotid endarterectomy. Patient with low cardiac output symptoms prompting initiation of milrinone on 09/09/2023 creatinine subsequently improved from 1.8 to 1.45 --> 1.42 --> 1.14 --> 1.09 --> 0.94 --> 0.95 mg/dL. Milrinone discontinued 09/14/2023. Lisinopril restarted and metoprolol titrated to 25 mg twice daily. Add spironolactone 25 mg daily. Continue furosemide 20 mg IV BID. Supplement potassium. Monitor daily weight, fluid balance, GFR, and electrolytes. Continue chronic clopidogrel due to history of stroke, carotid revascularization, CAD. Eliquis for treatment of PE. Repeat limited echocardiogram in a.m. 09/17/2023 for reassessment of LV systolic function. Admission and Anticipated Discharge Date Admission Date: September 08, 2023 Subjective Patient seen examined the bedside. Fluid balance -2.1 L. Consuming [employer] energy drink this morning. Denies chest pain, shortness of breath, or palpitations. Edema improving. Stable renal function. Review of Systems Review of Systems: All systems reviewed & are unremarkable except as noted in Subjective Physical Exam Constitutional: well nourished; no acute distress Respiratory: no labored breathing and no retractions Auscultation: no rales, no rhonchi and no wheezes Cardiovascular: Rate/Rhythm: regular rate, regular rhythm and + tachycardic Heart Sounds: normal S1 and normal S2; no murmur Vessels: + JVD Extremities: + edema (1+ lower extremity edema) Gastrointestinal (Abdomen): Inspection/Auscultation: normal bowel sounds; abdomen not distended Percussion/Palpation: abdomen soft; abdomen nontender, no guarding and abdomen not rigid Neurologic: CN's II-XI intact bilaterally and moves all extremities; no focal motor deficits Results & Data Vital Signs (Past 12 Hours) Vital Signs Temp Pulse Pulse Resp BP BP Pulse Ox 09/16/23 07:46 36.6 C 87 20 145/84 H 91 11/01/23 03:11 37.2 C 90 19 143/88 H 94 09/15/23 23:00 96 H 09/15/23 23:00 36.4 C L 92 H 22 152/87 H 94 O2 Del Method 09/16/23 07:46 Room Air 09/16/23 03:11 Room Air 09/15/23 23:00 09/15/23 23:00 Room Air Laboratory Results CBC 09/16/23 Range/Units 06:31 WBC 12.65 H (4.8-10.8) K/ul RBC 5.02 (4.70-6.10) M/uL Hgb 13.8 L (14.0-18.0) g/dl Hct 39.5 L (42.0-52.0) % Plt Count 159 (130-400) K/uL Neut # (Auto) 9.65 H (1.40-6.50) K/uL Lymph # (Auto) 2.07 (1.20-3.40) K/uL [place] # (Auto) 0.59 (0.11-0.59) K/uL Eos # (Auto) 0.11 (0.00-0.50) K/uL Baso # (Auto) 0.04 (0.00-0.20) K/uL Comprehensive Metabolic Panel 09/16/23 Range/Units 06:31 Sodium 138 (136-145) mmol/L Potassium 3.2 L (3.5-5.1) mmol/L Chloride 102 (98-107) mmol/L Carbon Dioxide 27 (21-32) mmol/L BUN 13 (6-23) mg/dl Creatinine 0.95 (0.6-1.4) mg/dl Glucose 315 H* (70-99(Fasting)) mg/dl Calcium 8.0 L (8.6-10.3) mg/dl Intake and Output 09/15/23 09/16/23 09/16/23 22:59 06:59 14:59 Intake Total 1048 / 1048 Output Total 2700 / 3200 500 / 3200 Balance -1652 / -2152 -500 / -2152 Intake: IV 508 / 508 Potassium Phosphate 24 mmol In 508 / 508 Sodium Chloride 0.9% 500 ml @ 88 mls/hr IV ONE ONE Rx#: [id number] Oral 540 / 540 Output: Urine Amount (Catheter) 2700 / 3200 500 / 3200 Rushing/Indwelling 2700 / 3200 500 / 3200 Other: Weight 72.9 kg Weight Measurement Method Built in [facility]
--- NOTE | 2023-09-16 12:16 | Pharmacy Report ---
Pharmacy Glycemic Short Note 2 - Date of Service September 16, 2023 - Glycemic Short BSG Results (Last 24 hours): 09/15/23 09/15/23 09/15/23 16:19 16:19 20:26 Glucose POC Glucose 322 H* 312 H* 275 H 09/16/23 09/16/23 09/16/23 06:31 07:28 11:14 Glucose 315 H* POC Glucose 260 H 192 H OUTPATIENT ANTIDIABETIC REGIMEN: * N/A * A1c: 7% 09/09/23 ASSESSMENT: * No documentation from home med list/fill hx that patient is on any home antidiabetic agents. * Patient persistently hyperglycemic over the past few days and has received only bolus insulin thus far. Will give a low dose lantus and tighten novolog coverage today and assess further dosing based on trend tomorrow morning. * Patient is eating. PLAN FOR INPATIENT GLYCEMIC CONTROL: * Hold outpatient oral diabetes medications * Basal insulin * Lantus 10 units SQ X 1 * Bolus insulin * NovoLog per scale ACHS or Q6hrs while NPO * Goal Range: Low 110 mg/dL - High 140 mg/dL * Correction Factor: 30 mg/dL/unit * Nutritional / Prandial insulin per carb ratio of 1 unit per 11 grams CHO consumed
[2023-09-16] MEDS: MoRPHine SULFATE 4 MG/ML 1 ML CARP\\VIAL IV PRN (12:35)
--- NOTE | 2023-09-16 15:45 | Hospitalist Progress Note ---
Date of Service September 16, 2023 Assessment & Plan (1) Pneumonia: (2) Acute systolic CHF (congestive heart failure): (3) Ischemic cardiomyopathy: (4) Hypoxia: (5) Pulmonary embolism: (6) Elevated troponin: (7) Elevated LFTs: (8) H/O: CVA (cerebrovascular accident): (9) CAD (coronary artery disease): (10) DM type 2 (diabetes mellitus, type 2): (11) Hypertension: (12) Prolonged QT interval: (13) CKD (chronic kidney disease), stage III: Plan per Dr. Iglesias's notes with addendum: 52-year-old male with PMH significant for DM type II, ischemic cardiomyopathy, systolic CHF, GERD, CKD stage III, history of CVA, right carotid endarterectomy, CAD, NSTEMI 2014 s/p BRUCE to RCA, depression, anxiety, and other problems listed below who presented with bilateral lower extremity swelling and shortness of breath. Acute hypoxemic Respiratory Failure Pneumonia Pulmonary Emboli Pulmonary Infarct Chronic Anemia, iron deficiency Pt currently on 5L of oxygen, does not use oxygen at baseline Chest XRAY with patchy bibasilar and midlung opacities suspicious for superimposed pneumonia Chest CTA suggestive of pneumonia vs. pulmonary infarcts as well with noted bilateral areas of wedge-shaped consolidation, most pronounced within the left upper and bilateral lower lobes WBC increased and while downtrending remains persistently elevated in spite of rocephin and doxycycline treatment, not currently on steroids MRSA nares negative Previously treated with Rocephin --> Cefepime for pseudomonas coverage, doxycycline and Flagyl for anaerobic coverage. Pulmonology Consult on 09/13, appreciate recs -Transition to oral DOAC/coumadin for PE -CTA more suggestive of pulm infarct that will likely resolve over time, can cause noninfectious leukocytosis -Recommending followup CT scan w/o contrast in 8-12 weeks after discharge -Pneumonia less likely, but continue with 2 more days of amoxil and zithromax. If AM procal negative, can discontinue abx. -Continue IV diuresis for pleural effusions until BUN/Cr elevated -Hypoxemia likely due to CHF, PE, goal O2 sat >88%, will likely need oxygen on discharge Outpt PFTs due to tobacco Hx 09/14: Clinically stable and remains weak and lethargic but denies any increasing shortness of breath Afebrile and hemodynamically stable Procalcitonin remains little elevated and will continue oral antibiotic For 5 to 7 days more 09/16 currently on room air still on Lasix 20mg IV BID Aldactone 25mg po daily added also on Amoxicillin and Azithromycin Eliquis continued Acute systolic CHF (congestive heart failure) Presented with increasing shortness of breath and lower extremity edema, noted to be hypoxemic on room air Acute systolic heart failure with history of cardiomyopathy Appreciate cardiology recs/care: -Milrinone drip, Lasix with supplemental potassium -Oral nitrates, oral hydralazine, lisinopril currently on hold -Metoprolol succinate to 12.5 mg twice daily added -Monitor daily weight, fluid balance, GFR, and electrolytes -Continue chronic clopidogrel due to history of stroke, carotid revascul arization, CAD. 09/14: Metoprolol dose has been increased to 25 twice daily and lisinopril has been restarted at a smaller dose of 10 mg daily 09/16 diuretics per above Ischemic cardiomyopathy History of ischemic cardiomyopathy and noted to have EF of 27% Echo showed-inferior scar similar to previous, diffuse left ventricular hypokinesis with EF of 27%, mild diffuse right ventricular hypokinesis was noted as well. Significant changes compared to echo of 2020 Further management as noted above Anemia, iron deficiency Pt also anemic with noted low iron levels currently 25 Likely also contributing to hypoxia Currently on NC 4L-6L IV Venofer 300mg ordered on 09/13 11/16 repeat CBC tomorrow Pulmonary embolism Noted to have bilateral pulmonary emboli No evidence of DVT on doppler Was on heparin drip, transitioned to PO Eliquis on 09/13 09/16 continue Eliquis monitor Elevated troponin Trops have plateaued in setting of acute systolic heart failure with history of cardiomyopathy Elevated LFTs T. bili 3.4, AST 55, ALT 216, alk phos 81 INR 1.7 MELD 23 RUQ US noted "heterogeneous liver with suggestion of mild hepatic steatosis and equivocal cirrhosis and was concerning for a 1.7 cm echogenic left hepatic lobe lesion, possibly a hemangioma.Follow up MRI recommended on discharge. Likely congestive hepatopathy from CHF GI consult-appreciate input and recommendation -ordered AIH serologies, acute hepatitis panel, viral panel (CMV,EBV,Parvo,HSV) -noted "Will arrange f/u in GI clinic after DC to r/o cirrhosis using Fibroscan vs liver bx, obtain MRI liver imaging to furhter characterize liver lesion" Continue to trend down LFTs H/O: CVA (cerebrovascular accident) Continue Plavix Holding statin due to elevated LFTs CAD (coronary artery disease) History of NSTEMI in 2013 s/p BRUCE to RCA Continue Plavix and beta-marcial, holding statin due to elevated LFTs No cardiac symptoms DM type 2 (diabetes mellitus, type 2) Hgb A1c 7.0 on 09/09 Patient self stopped metformin 1 year ago NovoLog per protocol while hospitalized Hypertension BP elevated on presentation Holding lisinopril, hydralazine, oral nitrates per cardiology Hold amlodipine. Patient typically only utilizes on an as needed basis. Metoprolol succinate dose has been increased to 12.5 mg twice daily Prolonged QT interval QTc 541 Avoid QTc prolonging agents, daily EKG CKD (chronic kidney disease), stage III Baseline creatinine ~ 1.4 Creatinine wnl at this time Continue to monitor renal function CODE STATUS: Full code Diet:DMII, HH, Low sodium DVT PROPHYLAXIS:Transitioned to PO Eliquis Dispo:transition to [facility] when medically stable Admission and Anticipated Discharge Date Admission Date: September 08, 2023 Subjective ff up for CHF, etc seen resting in chair, comfortable states he feels fine overall has intermittent low back pain worse with movement no chest pain, dyspnea, palpitations, dizziness no other new symptoms Review of Systems Review of Systems: all noted and negative except for above Physical Exam Physical Exam: General- oriented x 3, not in distress, speaks in sentences with no effort or accessory muscle use Eyes- anicteric Neck- no JVD Lungs- clear breath sounds BL Heart- normal rate, regular rhythm; no murmurs Abdomen- normal bowel sounds, nondistended, soft, no tenderness Extremities- mild pretibial edema, no calf tenderness Neuro- alert, oriented x 3; no gross focal neurologic deficits Skin- warm & dry Results & Data Results & Data Vital Signs (Past 12 Hours) Vital Signs Temp Pulse Resp BP BP Pulse Ox O2 Del Method 09/16/23 15:26 36.7 C 84 20 129/89 97 Room Air 09/16/23 12:12 36.6 C 84 20 132/80 95 Room Air 09/16/23 08:00 Room Air 09/16/23 07:46 36.6 C 87 20 145/84 H 91 Room Air all noted and reviewed including below (11) Hypertension Hypertension type: unspecified Qualified Code(s): I10 - Essential (primary) hypertension
[2023-09-17] MEDS: MoRPHine SULFATE 4 MG/ML 1 ML CARP\\VIAL IV PRN ×2 (00:47→21:27)
[2023-09-17 07:02] LABS: Hematocrit (blood only) 42.8 % (42.0-52.0); Hemoglobin 14.1 g/dl (14.0-18.0); Mean Corpuscular Hemoglobin 27.2 pg (25.0-34.0); Mean Corpuscular Hgb Conc 32.9 g/dL (32.0-36.0); Mean Corpuscular Volume 82.5 fL (80.0-100.0); Mean Platelet Volume 11.9 fL (9.4-12.4); Platelet Count 176 K/uL (130-400); RDW Coefficient of Variation 18.5 % (11.5-14.5); RDW Standard Deviation 51.5 fL (36.4-46.3); Red Blood Count 5.19 M/uL (4.70-6.10); White Blood Count 13.36 K/ul (4.8-10.8)
[2023-09-17 07:09] LABS: Basophils # (auto) 0.08 K/uL (0.00-0.20); Basophils % (auto) 0.6 %; Eosinophils # (auto) 0.12 K/uL (0.00-0.50); Eosinophils % (auto) 0.9 %; Immature Granulocytes # (auto) 0.15 K/uL (0.01-0.20); Immature Granulocytes % (auto) 1.1 %; Lymphocytes # (auto) 2.84 K/uL (1.20-3.40); Lymphocytes % (auto) 21.3 %; Monocytes # (auto) 0.73 K/uL (0.11-0.59); Monocytes % (auto) 5.5 %; Neutrophils # (auto) 9.44 K/uL (1.40-6.50); Neutrophils % (auto) 70.6 %; Target Cells 1+; Tear Drop Cells 1+
[2023-09-17 07:24] LABS: BUN Creatinine Ratio 14.9 (10-20); Calcium 8.4 mg/dl (8.6-10.3); Est GFR (African American) 107.6 ml/min; Est GFR (Non-African American) 92.8 ml/min; Magnesium 1.8 mg/dl (1.7-2.4); Potassium 3.9 mmol/L (3.5-5.1)
[2023-09-17] MEDS ORDERED: OXYMETAZOLINE 0.05% 30 ML BTL ONE (08:11)
[2023-09-17] MEDS: INSULIN ASPART PER UNIT CHARGE SC SCH ×4 (08:15→20:32)
[2023-09-17] MEDS: FUROSEMIDE INJ 20 MG/2 ML VIAL IV SCH ×2 (08:20→17:01)
[2023-09-17] MEDS: METOPROLOL SUCC 50MG EXT REL TAB PO SCH ×2 (08:21→20:33)
[2023-09-17] MEDS: APIXABAN 5 MG TABLET PO SCH (08:21)
[2023-09-17] MEDS: SPIRONOLACTONE 25 MG TAB PO SCH (08:22)
[2023-09-17] MEDS: MAGNESIUM OXIDE 400 MG TAB PO SCH ×2 (08:22→20:33)
[2023-09-17] MEDS: CLOPIDOGREL BISULFATE 75 MG TAB PO SCH (08:22)
[2023-09-17] MEDS: DOCUSATE SODIUM 100 MG CAP PO SCH ×2 (08:22→20:31)
[2023-09-17] MEDS: AZITHROMYCIN 250 MG TAB PO SCH (08:22)
[2023-09-17] MEDS: AMOXICILLIN 500 MG CAP PO SCH ×3 (08:22→20:31)
[2023-09-17] MEDS: lisinopril 10 MG TAB PO SCH (08:23)
[2023-09-17] MEDS: PANTOprazole 40 MG TAB PO SCH (08:23)
[2023-09-17] MEDS ORDERED: LANTUS PER UNIT CHARGE SC SCH (09:00)
[2023-09-17] MEDS ORDERED: Heparin IV Adult Wt-Based Standard *NO* Bolus Protocol IV STA (11:23)
[2023-09-17] MEDS: traMADol HCL 50 MG TABLET PO PRN ×2 (12:19→18:34)
[2023-09-17] MEDS: ACETAMINOPHEN 325 MG TAB PO PRN ×2 (12:19→18:35)
--- NOTE | 2023-09-17 13:14 | Hospitalist Progress Note ---
Date of Service September 17, 2023 Assessment & Plan (1) Pneumonia: (2) Acute systolic CHF (congestive heart failure): (3) Ischemic cardiomyopathy: (4) Hypoxia: (5) Pulmonary embolism: (6) Elevated troponin: (7) Elevated LFTs: (8) H/O: CVA (cerebrovascular accident): (9) CAD (coronary artery disease): (10) DM type 2 (diabetes mellitus, type 2): (11) Hypertension: (12) Prolonged QT interval: (13) CKD (chronic kidney disease), stage III: Plan per Dr. Iglesias's notes with addendum: 52-year-old male with PMH significant for DM type II, ischemic cardiomyopathy, systolic CHF, GERD, CKD stage III, history of CVA, right carotid endarterectomy, CAD, NSTEMI 2014 s/p BRUCE to RCA, depression, anxiety, and other problems listed below who presented with bilateral lower extremity swelling and shortness of breath. Acute hypoxemic Respiratory Failure Pneumonia Pulmonary Emboli Pulmonary Infarct Chronic Anemia, iron deficiency Pt currently on 5L of oxygen, does not use oxygen at baseline Chest XRAY with patchy bibasilar and midlung opacities suspicious for superimposed pneumonia Chest CTA suggestive of pneumonia vs. pulmonary infarcts as well with noted bilateral areas of wedge-shaped consolidation, most pronounced within the left upper and bilateral lower lobes WBC increased and while downtrending remains persistently elevated in spite of rocephin and doxycycline treatment, not currently on steroids MRSA nares negative Previously treated with Rocephin --> Cefepime for pseudomonas coverage, doxycycline and Flagyl for anaerobic coverage. Pulmonology Consult on 09/13, appreciate recs -Transition to oral DOAC/coumadin for PE -CTA more suggestive of pulm infarct that will likely resolve over time, can cause noninfectious leukocytosis -Recommending followup CT scan w/o contrast in 8-12 weeks after discharge -Pneumonia less likely, but continue with 2 more days of amoxil and zithromax. If AM procal negative, can discontinue abx. -Continue IV diuresis for pleural effusions until BUN/Cr elevated -Hypoxemia likely due to CHF, PE, goal O2 sat >88%, will likely need oxygen on discharge Outpt PFTs due to tobacco Hx 09/14: Clinically stable and remains weak and lethargic but denies any increasing shortness of breath Afebrile and hemodynamically stable Procalcitonin remains little elevated and will continue oral antibiotic For 5 to 7 days more 09/17 currently on room air still on Lasix 20mg IV BID Aldactone 25mg po daily also on Amoxicillin and Azithromycin Eliquis to be changed to Heparin drip given #2 Acute systolic CHF (congestive heart failure) Presented with increasing shortness of breath and lower extremity edema, noted to be hypoxemic on room air Acute systolic heart failure with history of cardiomyopathy Appreciate cardiology recs/care: -Milrinone drip, Lasix with supplemental potassium -Oral nitrates, oral hydralazine, lisinopril currently on hold -Metoprolol succinate to 12.5 mg twice daily added -Monitor daily weight, fluid balance, GFR, and electrolytes -Continue chronic clopidogrel due to history of stroke, carotid revascularization, CAD. 09/14: Metoprolol dose has been increased to 25 twice daily and lisinopril has been restarted at a smaller dose of 10 mg daily 09/17 diuretics per above (+) apical thrombus on repeat echo this morning discussed with Dr. Lois Kwok to be transitioned to Heparin this evening will need a Cardiac Cath Ischemic cardiomyopathy History of ischemic cardiomyopathy and noted to have EF of 27% Echo showed-inferior scar similar to previous, diffuse left ventricular hypokinesis with EF of 27%, mild diffuse right ventricular hypokinesis was noted as well. Significant changes compared to echo of 2020 Further management as noted above Anemia, iron deficiency Pt also anemic with noted low iron levels currently 25 Likely also contributing to hypoxia Currently on NC 4L-6L IV Venofer 300mg ordered on 09/13 11 Hg stable Pulmonary embolism Noted to have bilateral pulmonary emboli No evidence of DVT on doppler 09/17 transition to Eliquis Elevated troponin Trops have plateaued in setting of acute systolic heart failure with history of cardiomyopathy Elevated LFTs T. bili 3.4, AST 55, ALT 216, alk phos 81 INR 1.7 MELD 23 RUQ US noted "heterogeneous liver with suggestion of mild hepatic steatosis and equivocal cirrhosis and was concerning for a 1.7 cm echogenic left hepatic lobe lesion, possibly a hemangioma.Follow up MRI recommended on discharge. Likely congestive hepatopathy from CHF GI consult-appreciate input and recommendation -ordered AIH serologies, acute hepatitis panel, viral panel (CMV,EBV,Parvo,HSV) -noted "Will arrange f/u in GI clinic after DC to r/o cirrhosis using Fibroscan vs liver bx, obtain MRI liver imaging to furhter characterize liver lesion" Continue to trend down LFTs H/O: CVA (cerebrovascular accident) Continue Plavix Holding statin due to elevated LFTs CAD (coronary artery disease) History of NSTEMI in 2013 s/p BRUCE to RCA Continue Plavix and beta-marcial, holding statin due to elevated LFTs No cardiac symptoms management per above DM type 2 (diabetes mellitus, type 2) Hgb A1c 7.0 on 09/09 Patient self stopped metformin 1 year ago NovoLog per protocol while hospitalized Hypertension continue Lisinopril, Metoprolol, Spironolactone Prolonged QT interval QTc 541 Avoid QTc prolonging agents, daily EKG CKD (chronic kidney disease), stage III Baseline creatinine ~ 1.4 Creatinine wnl at this time Continue to monitor renal function CODE STATUS: Full code Diet:DMII, HH, Low sodium DVT PROPHYLAXIS:Heparin drip Dispo:transition to [facility] when medically stable Admission and Anticipated Discharge Date Admission Date: September 08, 2023 Subjective ff up for CHF etc was having epistaxis this morning, per RN, patient was manipulating nostrils resolved after Afrin spray given seen resting in bed, comfortable sitting up states he feels fine overall no chest pain, dyspnea, palpitations, dizziness no other new symptoms Review of Systems Review of Systems: all noted and negative except for above Physical Exam Physical Exam: General- oriented x 3, not in distress, speaks in sentences with no effort or accessory muscle use Eyes- anicteric Nose- no active bleeding noted Neck- no JVD Lungs- clear breath sounds bilaterally, no crackles/wheezing Heart- normal rate, regular rhythm; no murmurs Abdomen- normal bowel sounds, nondistended, soft, no tenderness Extremities- no pretibial edema, no calf tenderness Neuro- alert, oriented x 3; no gross focal neurologic deficits Skin- warm & dry Results & Data Results & Data Vital Signs (Past 12 Hours) Vital Signs Temp Pulse Resp BP BP Pulse Ox O2 Del Method 09/17/23 11:05 36.9 C 92 H 18 153/108 H 96 Room Air 09/17/23 08:00 Room Air 09/17/23 07:27 36.9 C 88 18 150/99 H 95 Room Air 09/17/23 03:00 36.4 C L 85 16 133/86 94 Room Air all noted and reviewed including below (11) Hypertension Hypertension type: unspecified Qualified Code(s): I10 - Essential (primary) hypertension
--- NOTE | 2023-09-17 14:37 | Cardiology Progress Note ---
Date of Service September 17, 2023 Assessment & Plan (1) LV (left ventricular) mural thrombus: (2) Ischemic cardiomyopathy: (3) Acute systolic CHF (congestive heart failure): (4) Pulmonary embolism: Plan Repeat echocardiogram performed today demonstrating severe LV systolic dys function and large apical thrombus. Eliquis is not approved for treatment of acute LV apical thrombus. Warfarin preferred. Recommend discontinue Eliquis with transition back to IV heparin. Need for follow-up lab studies and appointments for outpatient anticoagulation management discussed at length with patient who is agreeable. Continue IV diuresis. Supplement potassium as needed. Milrinone discontinued 09/14/2023. Milrinone discontinued 09/14/2023. Lisinopril restarted and metoprolol titrated to 25 mg twice daily. Continue spironolactone 25 mg daily. Continue chronic clopidogrel due to history of stroke, carotid revascularization, CAD. Eliquis discontinued today. Further ischemic evaluation is warranted, however, Eliquis is not held for an adequate amount of time to proceed with nonurgent cardiac catheterization 09/18/2023. Recommend continuing IV heparin through the weekend with consideration for coronary angiography on 09/21/2023. Admission and Anticipated Discharge Date Admission Date: September 08, 2023 Subjective Patient seen and examined at the bedside. Denies chest pain or shortness of breath. Fluid balance -2 L overnight. Renal function remains stable. Preliminary review of limited bedside echocardiogram demonstrates severely reduced LV function and LV apical thrombus. Review of Systems Review of Systems: All systems reviewed & are unremarkable except as noted in Subjective Physical Exam Constitutional: well nourished; no acute distress Respiratory: no labored breathing and no retractions Auscultation: no rales, no rhonchi and no wheezes Cardiovascular: Rate/Rhythm: regular rate, regular rhythm and + tachycardic Heart Sounds: normal S1 and normal S2; no murmur Vessels: + JVD Extremities: + edema (1+ lower extremity edema) Gastrointestinal (Abdomen): Inspection/Auscultation: normal bowel sounds; abdomen not distended Percussion/Palpation: abdomen soft; abdomen nontender, no guarding and abdomen not rigid Neurologic: CN's II-XI intact bilaterally and moves all extremities; no focal motor deficits Results & Data Vital Signs (Past 12 Hours) Vital Signs Temp Pulse Resp BP BP Pulse Ox O2 Del Method 09/17/23 11:05 36.9 C 92 H 18 153/108 H 96 Room Air 09/17/23 08:00 Room Air 09/17/23 07:27 36.9 C 88 18 150/99 H 95 Room Air 09/17/23 03:00 36.4 C L 85 16 133/86 94 Room Air Laboratory Results CBC 09/17/23 Range/Units 05:57 WBC 13.36 H (4.8-10.8) K/ul RBC 5.19 (4.70-6.10) M/uL Hgb 14.1 (14.0-18.0) g/dl Hct 42.8 (42.0-52.0) % Plt Count 176 (130-400) K/uL Neut # (Auto) 9.44 H (1.40-6.50) K/uL Lymph # (Auto) 2.84 (1.20-3.40) K/uL [place] # (Auto) 0.73 H (0.11-0.59) K/uL Eos # (Auto) 0.12 (0.00-0.50) K/uL Baso # (Auto) 0.08 (0.00-0.20) K/uL Comprehensive Metabolic Panel 09/17/23 Range/Units 05:57 Sodium 138 (136-145) mmol/L Potassium 3.9 D (3.5-5.1) mmol/L Chloride 104 (98-107) mmol/L Carbon Dioxide 29 (21-32) mmol/L BUN 14 (6-23) mg/dl Creatinine 0.94 (0.6-1.4) mg/dl Glucose 197 H (70-99(Fasting)) mg/dl Calcium 8.4 L (8.6-10.3) mg/dl Intake and Output 09/16/23 09/17/23 09/17/23 22:59 06:59 14:59 Intake Total 240 / 240 Output Total 2150 / 2550 400 / 2551 1176 / 1176 Balance -2150 / -2200 -400 / -2200 -6 / -936 Intake: Oral 240 / 240 Output: Urine Amount (Catheter) 2149 / 2549 400 / 2550 1175 / 1175 Rushing/Indwelling 2149 400 / 2550 1175 / 1175 # Bowel Movements Other: Weight 70.9 kg Weight Measurement Method Built in [facility]
[2023-09-17] MEDS: HEPARIN SODIUM/DEXTROSE 25,000 UNITS/500 ML BAG IV SCH (20:26)
[2023-09-18 03:07] LABS: Hematocrit (blood only) 41.4 % (42.0-52.0); Hemoglobin 13.6 g/dl (14.0-18.0); Mean Corpuscular Hemoglobin 27.2 pg (25.0-34.0); Mean Corpuscular Hgb Conc 32.9 g/dL (32.0-36.0); Mean Corpuscular Volume 82.8 fL (80.0-100.0); Mean Platelet Volume 11.1 fL (9.4-12.4); Platelet Count 193 K/uL (130-400); RDW Coefficient of Variation 18.7 % (11.5-14.5); RDW Standard Deviation 54.4 fL (36.4-46.3); White Blood Count 12.81 K/ul (4.8-10.8)
[2023-09-18 03:23] LABS: BUN Creatinine Ratio 15.1 (10-20); Calcium 8.3 mg/dl (8.6-10.3); Creatinine Clr Calc Pharmacy 73.6 ml/min; Est GFR (African American) 93.1 ml/min; Est GFR (Non-African American) 80.3 ml/min; Magnesium 1.8 mg/dl (1.7-2.4); Potassium 3.7 mmol/L (3.5-5.1)
[2023-09-18 03:52] LABS: Basophils # (auto) 0.06 K/uL (0.00-0.20); Basophils % (auto) 0.5 %; Eosinophils # (auto) 0.14 K/uL (0.00-0.50); Eosinophils % (auto) 1.1 %; Immature Granulocytes # (auto) 0.18 K/uL (0.01-0.20); Immature Granulocytes % (auto) 1.4 %; Lymphocytes # (auto) 3.46 K/uL (1.20-3.40); Monocytes # (auto) 0.57 K/uL (0.11-0.59); Monocytes % (auto) 4.4 %; Neutrophils % (auto) 65.6 %; Partial Thromboplastin Time 56.9 Seconds (21.0-31.0)
[2023-09-18] MEDS: traMADol HCL 50 MG TABLET PO PRN ×3 (04:07→19:23)
[2023-09-18] MEDS: ACETAMINOPHEN 325 MG TAB PO PRN (04:08)
[2023-09-18] MEDS: CLOPIDOGREL BISULFATE 75 MG TAB PO SCH (08:16)
[2023-09-18] MEDS: SPIRONOLACTONE 25 MG TAB PO SCH (08:16)
[2023-09-18] MEDS: PANTOprazole 40 MG TAB PO SCH (08:16)
[2023-09-18] MEDS: DOCUSATE SODIUM 100 MG CAP PO SCH ×2 (08:16→20:42)
[2023-09-18] MEDS: METOPROLOL SUCC 50MG EXT REL TAB PO SCH ×2 (08:16→20:44)
[2023-09-18] MEDS: lisinopril 10 MG TAB PO SCH (08:16)
[2023-09-18] MEDS: FUROSEMIDE INJ 20 MG/2 ML VIAL IV SCH ×2 (08:16→16:50)
[2023-09-18] MEDS: AMOXICILLIN 500 MG CAP PO SCH ×3 (08:16→20:42)
[2023-09-18] MEDS: AZITHROMYCIN 250 MG TAB PO SCH (08:17)
[2023-09-18] MEDS: INSULIN ASPART PER UNIT CHARGE SC SCH ×4 (08:17→20:41)
[2023-09-18] MEDS: MAGNESIUM OXIDE 400 MG TAB PO SCH ×2 (08:18→20:44)
[2023-09-18] MEDS: LANTUS PER UNIT CHARGE SC SCH (08:18)
[2023-09-18 09:50] LABS: INR 1.2 (0.9-1.1); Prothrombin Time 13.5 Seconds (9.0-12.0)
--- NOTE | 2023-09-18 10:07 | Cardiology Progress Note ---
Date of Service September 18, 2023 Assessment & Plan (1) LV (left ventricular) mural thrombus: (2) Ischemic cardiomyopathy: (3) Acute systolic CHF (congestive heart failure): (4) Pulmonary embolism: Plan Left ventricular apical thrombus discovered yesterday in the setting of severe cardiomyopathy, LVEF <20%. Volume status greatly improved since admission. Milrinone discontinued 09/14/2023. Continues to make approximately 2 L of urine daily. Tolerating current evidence-based heart failure therapies including lisinopril, metoprolol, and spironolactone. Continue IV furosemide 20 mg twice daily. Supplement potassium as needed. Continue chronic clopidogrel due to history of stroke, carotid revascularization, CAD. Eliquis discontinued 09/17/23. Warfarin preferred for treatment of acute LV apical thrombus. Further ischemic evaluation is warranted. Consider cardiac catheterization versus nuclear stress testing. Admission and Anticipated Discharge Date Admission Date: September 08, 2023 Subjective Patient seen and examined at the bedside. Fluid balance -1.9 L. Renal function remains stable. Apical LV thrombus discovered on echocardiogram yesterday prompting discontinuation of Eliquis. IV heparin initiated with plans for transition to oral warfarin. Edema improving. 7-10kg weight loss recorded since admission. Review of Systems Review of Systems: All systems reviewed & are unremarkable except as noted in Subjective Physical Exam Constitutional: well nourished; no acute distress Respiratory: no labored breathing and no retractions Auscultation: no rales, no rhonchi and no wheezes Cardiovascular: Rate/Rhythm: regular rate, regular rhythm and + tachycardic Heart Sounds: normal S1 and normal S2; no murmur Vessels: + JVD Extremities: + edema (1+ lower extremity edema L>R) Gastrointestinal (Abdomen): Inspection/Auscultation: normal bowel sounds; abdomen not distended Percussion/Palpation: abdomen soft; abdomen nontender, no guarding and abdomen not rigid Neurologic: CN's II-XI intact bilaterally and moves all extremities; no focal motor deficits Results & Data Vital Signs (Past 12 Hours) Vital Signs Temp Pulse Pulse Resp BP BP Pulse Ox 09/18/23 08:11 37.1 C 73 18 117/74 97 09/18/23 07:13 74 09/18/23 02:35 37.1 C 77 134/87 99 09/18/23 00:00 36.8 C 78 18 132/86 98 O2 Del Method 09/18/23 08:11 Room Air 09/18/23 07:13 09/18/23 02:35 Room Air 09/18/23 00:00 Room Air Laboratory Results Coagulation 09/18/23 09/18/23 Range/Units 02:38 08:36 PT 13.5 H (9.0-12.0) Seconds APTT 56.9 H* (21.0-31.0) Seconds CBC 09/18/23 Range/Units 02:38 WBC 12.81 H (4.8-10.8) K/ul RBC 5.00 (4.70-6.10) M/uL Hgb 13.6 L (14.0-18.0) g/dl Hct 41.4 L (42.0-52.0) % Plt Count 193 (130-400) K/uL Neut # (Auto) 8.40 H (1.40-6.50) K/uL Lymph # (Auto) 3.46 H (1.20-3.40) K/uL [place] # (Auto) 0.57 (0.11-0.59) K/uL Eos # (Auto) 0.14 (0.00-0.50) K/uL Baso # (Auto) 0.06 (0.00-0.20) K/uL Comprehensive Metabolic Panel 09/18/23 Range/Units 02:38 Sodium 134 L (136-145) mmol/L Potassium 3.7 (3.5-5.1) mmol/L Chloride 101 (98-107) mmol/L Carbon Dioxide 30 (21-32) mmol/L BUN 16 (6-23) mg/dl Creatinine 1.06 (0.6-1.4) mg/dl Glucose 161 H (70-99(Fasting)) mg/dl Calcium 8.3 L (8.6-10.3) mg/dl Intake and Output 09/17/23 09/18/23 09/18/23 22:59 06:59 14:59 Intake Total 253.2 / 493.2 Output Total 800 / 2476 500 / 2476 Balance -800 / -1982.8 -246.8 / -1982.8 Intake: IV 253.2 / 253.2 Heparin Sodium/Dextrose 25,000 253.2 / 253.2 units In 500 ml @ 1,200 UNITS/ HR 24 mls/hr IV .[id number] [facility] Rx #:[id number] Output: Urine Amount (Catheter) 800 / 2475 500 / 2475 Rushing/Indwelling 800 / 2475 500 / 2475 Other: Other Intake Source patient is taking sips for now and eating ice chips Weight 71.3 kg Weight Measurement Method Built in [facility]
--- NOTE | 2023-09-18 11:58 | Pharmacy Report ---
Pharmacy Glycemic Short Note 2 - Date of Service September 18, 2023 - Glycemic Short BSG Results (Last 24 hours): 09/17/23 09/17/23 09/18/23 16:26 19:47 02:38 Glucose 161 H POC Glucose 158 H 196 H 09/18/23 09/18/23 07:44 11:20 Glucose POC Glucose 161 H 287 H OUTPATIENT ANTIDIABETIC REGIMEN: * N/A * A1c: 7% 09/09/23 ASSESSMENT: 09/18: * BSGs [phone]/dL the last 24h. Received 10 units of basal and 25 units of bolus insulin yesterday. * Tolerating diet, stressors stable. * Will increase basal to 12 units this AM given elevated fasting BSG. Novolog tightened for improved prandial coverage. 09/17: * No documentation from home med list/fill hx that patient is on any home antidiabetic agents. * Patient persistently hyperglycemic over the past few days and has received only bolus insulin thus far. Will give a low dose lantus and tighten novolog coverage today and assess further dosing based on trend tomorrow morning. * Patient is eating. PLAN FOR INPATIENT GLYCEMIC CONTROL: * Hold outpatient oral diabetes medications * Basal insulin * Lantus 12 units SQ daily * Bolus insulin * NovoLog per scale ACHS or Q6hrs while NPO * Goal Range: Low 110 mg/dL - High 140 mg/dL * Correction Factor: 25 mg/dL/unit * Nutritional / Prandial insulin per carb ratio of 1 unit per 8 grams CHO consumed
[2023-09-18] MEDS: HEPARIN SODIUM/DEXTROSE 25,000 UNITS/500 ML BAG IV SCH (14:20)
--- NOTE | 2023-09-18 14:55 | Hospitalist Progress Note ---
Date of Service September 18, 2023 Assessment & Plan (1) Pneumonia: (2) Acute systolic CHF (congestive heart failure): (3) Ischemic cardiomyopathy: (4) Hypoxia: (5) Pulmonary embolism: (6) Elevated troponin: (7) Elevated LFTs: (8) H/O: CVA (cerebrovascular accident): (9) CAD (coronary artery disease): (10) DM type 2 (diabetes mellitus, type 2): (11) Hypertension: (12) Prolonged QT interval: (13) CKD (chronic kidney disease), stage III: Plan per Dr. Iglesias's notes with addendum: 52-year-old male with PMH significant for DM type II, ischemic cardiomyopathy, systolic CHF, GERD, CKD stage III, history of CVA, right carotid endarterectomy, CAD, NSTEMI 2014 s/p BRUCE to RCA, depression, anxiety, and other problems listed below who presented with bilateral lower extremity swelling and shortness of breath. Acute hypoxemic Respiratory Failure Pneumonia Pulmonary Emboli Pulmonary Infarct Chronic Anemia, iron deficiency Pt currently on 5L of oxygen, does not use oxygen at baseline Chest XRAY with patchy bibasilar and midlung opacities suspicious for superimposed pneumonia Chest CTA suggestive of pneumonia vs. pulmonary infarcts as well with noted bilateral areas of wedge-shaped consolidation, most pronounced within the left upper and bilateral lower lobes WBC increased and while downtrending remains persistently elevated in spite of rocephin and doxycycline treatment, not currently on steroids MRSA nares negative Previously treated with Rocephin --> Cefepime for pseudomonas coverage, doxycycline and Flagyl for anaerobic coverage. Pulmonology Consult on 09/13, appreciate recs -Transition to oral DOAC/coumadin for PE -CTA more suggestive of pulm infarct that will likely resolve over time, can cause noninfectious leukocytosis -Recommending followup CT scan w/o contrast in 8-12 weeks after discharge -Pneumonia less likely, but continue with 2 more days of amoxil and zithromax. If AM procal negative, can discontinue abx. -Continue IV diuresis for pleural effusions until BUN/Cr elevated -Hypoxemia likely due to CHF, PE, goal O2 sat >88%, will likely need oxygen on discharge Outpt PFTs due to tobacco Hx 09/14: Clinically stable and remains weak and lethargic but denies any increasing shortness of breath Afebrile and hemodynamically stable Procalcitonin remains little elevated and will continue oral antibiotic For 5 to 7 days more 09/17 currently on room air still on Lasix 20mg IV BID Aldactone 25mg po daily also on Amoxicillin and Azithromycin Eliquis to be changed to Heparin drip given #2 09/18 remains on room air echo: Left ventricular apical thrombus discovered yesterday in the setting of severe cardiomyopathy, LVEF <20%. continue Lasix 20mg IV BID continue Lisinopril, Metoprolol, Spironolactone continue Heparin drip Acute systolic CHF (congestive heart failure) Presented with increasing shortness of breath and lower extremity edema, noted to be hypoxemic on room air Acute systolic heart failure with history of cardiomyopathy Appreciate cardiology recs/care: -Milrinone drip, Lasix with supplemental potassium -Oral nitrates, oral hydralazine, lisinopril currently on hold -Metoprolol succinate to 12.5 mg twice daily added -Monitor daily weight, fluid balance, GFR, and electrolytes -Continue chronic clopidogrel due to history of stroke, carotid revascularization, CAD. 09/14: Metoprolol dose has been increased to 25 twice daily and lisinopril has been restarted at a smaller dose of 10 mg daily 09/17 diuretics per above (+) apical thrombus on repeat echo this morning discussed with Dr. Lois Kwok to be transitioned to Heparin this evening will need a Cardiac Cath 09/18 management per above Ischemic cardiomyopathy History of ischemic cardiomyopathy and noted to have EF of 27% Echo showed-inferior scar similar to previous, diffuse left ventricular hy pokinesis with EF of 27%, mild diffuse right ventricular hypokinesis was noted as well. Significant changes compared to echo of 2020 Further management as noted above Anemia, iron deficiency Pt also anemic with noted low iron levels currently 25 Likely also contributing to hypoxia Currently on NC 4L-6L IV Venofer 300mg ordered on 09/13 09/18 Hg stable Pulmonary embolism Noted to have bilateral pulmonary emboli No evidence of DVT on doppler 09/18 on Heparin Elevated troponin Trops have plateaued in setting of acute systolic heart failure with history of cardiomyopathy Elevated LFTs T. bili 3.4, AST 55, ALT 216, alk phos 81 INR 1.7 MELD 23 RUQ US noted "heterogeneous liver with suggestion of mild hepatic steatosis and equivocal cirrhosis and was concerning for a 1.7 cm echogenic left hepatic lobe lesion, possibly a hemangioma.Follow up MRI recommended on discharge. Likely congestive hepatopathy from CHF GI consult-appreciate input and recommendation -ordered AIH serologies, acute hepatitis panel, viral panel (CMV,EBV,Parvo,HS V) -noted "Will arrange f/u in GI clinic after DC to r/o cirrhosis using Fibroscan vs liver bx, obtain MRI liver imaging to furhter characterize liver lesion" Continue to trend down LFTs H/O: CVA (cerebrovascular accident) Continue Plavix Holding statin due to elevated LFTs CAD (coronary artery disease) History of NSTEMI in 2013 s/p BRUCE to RCA Continue Plavix and beta-marcial, holding statin due to elevated LFTs No cardiac symptoms management per above DM type 2 (diabetes mellitus, type 2) Hgb A1c 7.0 on 09/09 Patient self stopped metformin 1 year ago NovoLog per protocol while hospitalized Hypertension continue Lisinopril, Metoprolol, Spironolactone Prolonged QT interval QTc 541 Avoid QTc prolonging agents, daily EKG CKD (chronic kidney disease), stage III Baseline creatinine ~ 1.4 Creatinine wnl at this time Continue to monitor renal function CODE STATUS: Full code Diet:DMII, HH, Low sodium DVT PROPHYLAXIS:Heparin drip Dispo:transition to [facility] when medically stable Admission and Anticipated Discharge Date Admission Date: September 08, 2023 Subjective ff up for CHF, etc seen resting in bed, comfortable states he feels fine overall ambulated in the halls with PT no chest pain, dyspnea, palpitations, dizziness no bleeding no other symptoms Review of Systems Review of Systems: all noted and negative except for above Physical Exam Physical Exam: General- oriented x 3, not in distress, speaks in sentences with no effort or accessory muscle use Eyes- anicteric Neck- no JVD Lungs- clear breath sounds bilaterally, no rales/wheezes Heart- normal rate, regular rhythm; no murmurs Abdomen- normal bowel sounds, nondistended, soft, nontender Extremities- no pretibial edema, no calf tenderness Neuro- alert, oriented x 3; no gross focal neurologic deficits Skin- warm & dry Results & Data Results & Data Vital Signs (Past 12 Hours) Vital Signs Temp Pulse Pulse Resp BP Pulse Ox O2 Del Method 09/18/23 11:21 37.0 C 75 20 114/63 95 Room Air 09/18/23 08:11 37.1 C 73 18 117/74 97 Room Air 09/18/23 07:13 74 all noted and reviewed including below (11) Hypertension Hypertension type: unspecified Qualified Code(s): I10 - Essential (primary) hypertension
[2023-09-18] MEDS: MELATONIN 3 MG TAB PO PRN (21:35)
[2023-09-19] MEDS: ACETAMINOPHEN 325 MG TAB PO PRN ×3 (00:40→22:00)
[2023-09-19] MEDS: traMADol HCL 50 MG TABLET PO PRN ×4 (00:40→18:36)
[2023-09-19 04:41] LABS: BUN Creatinine Ratio 13.5 (10-20); Calcium 8.3 mg/dl (8.6-10.3); Creatinine Clr Calc Pharmacy 81.2 ml/min; Est GFR (African American) 104.9 ml/min; Est GFR (Non-African American) 90.5 ml/min; Magnesium 1.9 mg/dl (1.7-2.4); Potassium 3.8 mmol/L (3.5-5.1)
[2023-09-19 05:15] LABS: Partial Thromboplastin Ratio 2.1
[2023-09-19 05:23] LABS: Partial Thromboplastin Time 58.1 Seconds (21.0-31.0)
[2023-09-19] MEDS: MAGNESIUM OXIDE 400 MG TAB PO SCH ×2 (08:08→20:30)
[2023-09-19] MEDS: INSULIN ASPART PER UNIT CHARGE SC SCH ×4 (08:08→20:32)
[2023-09-19] MEDS: LANTUS PER UNIT CHARGE SC SCH (08:08)
[2023-09-19] MEDS: PANTOprazole 40 MG TAB PO SCH (08:09)
[2023-09-19] MEDS: lisinopril 10 MG TAB PO SCH (08:09)
[2023-09-19] MEDS: FUROSEMIDE INJ 20 MG/2 ML VIAL IV SCH ×2 (08:09→16:45)
[2023-09-19] MEDS: AZITHROMYCIN 250 MG TAB PO SCH (08:09)
[2023-09-19] MEDS: DOCUSATE SODIUM 100 MG CAP PO SCH ×2 (08:09→20:32)
[2023-09-19] MEDS: METOPROLOL SUCC 50MG EXT REL TAB PO SCH ×2 (08:09→20:31)
[2023-09-19] MEDS: CLOPIDOGREL BISULFATE 75 MG TAB PO SCH (08:09)
[2023-09-19] MEDS: AMOXICILLIN 500 MG CAP PO SCH ×3 (08:09→20:29)
[2023-09-19] MEDS: SPIRONOLACTONE 25 MG TAB PO SCH (08:10)
[2023-09-19] MEDS: HEPARIN SODIUM/DEXTROSE 25,000 UNITS/500 ML BAG IV SCH (10:16)
--- NOTE | 2023-09-19 10:52 | Cardiology Progress Note ---
Date of Service September 19, 2023 Assessment & Plan (1) LV (left ventricular) mural thrombus: (2) Ischemic cardiomyopathy: (3) Acute systolic CHF (congestive heart failure): (4) Pulmonary embolism: Plan Patient clinically improving approaching euvolemia. No oxygen demands We will continue IV furosemide Continue IV heparin given left left ventricular apical thrombus. Ultimate plans conversion to warfarin Given probable ischemic cardiomyopathy will likely warrant coronary angiography. We will tentatively plan early next week Admission and Anticipated Discharge Date Admission Date: September 08, 2023 Subjective Patient seen and examined, chart, medications, telemetry reviewed. No acute complaints overnight. No chest pains, shortness of breath, dizziness. Continues to manifest diuresis. Currently anticoagulated with IV heparin Review of Systems Review of Systems: All systems reviewed & are unremarkable except as noted in Subjective Physical Exam Physical Exam: Temp Pulse Resp BP Pulse Ox O2 Del Method O2 Flow Rate 36.5 C 74 20 91/75 L 97 Nasal Cannula 2 09/08/23 17:32 09/08/23 18:21 09/08/23 18:14 09/08/23 18:21 09/08/23 18:14 09/08/23 18:14 09/08/23 18:14 Constitutional: well nourished and + ill appearing (Chronically ill in appearance); no acute distress Eyes: PERRL, conjunctivae normal, anicteric sclerae Respiratory: normal respiratory effort, lungs clear to auscultation no labored breathing and no retractions Auscultation: + diminished lung sounds (Mildly reduced breath sounds at the bases); no crackles, no rales, no rhonchi and no wheezes Cardiovascular: Rate/Rhythm: regular rate, regular rhythm and + tachycardic Heart Sounds: normal S1 and normal S2; no murmur Vessels: + JVD Extremities: + edema (1+ lower extremity edema L>R) Gastrointestinal (Abdomen): Inspection/Auscultation: normal bowel sounds; abdomen not distended Percussion/Palpation: abdomen soft and + ascites; abdomen nontender, no guarding and abdomen not rigid Neurologic: PERRL, EOMI, accommodation nl, no face palsy, no dysarthria CN's II-XI intact bilaterally and moves all extremities; no focal motor deficits Psychiatric: A+Ox3, euthymic affect Results & Data Vital Signs (Past 12 Hours) Vital Signs Temp Pulse Pulse Resp BP Pulse Ox O2 Del Method 09/19/23 07:18 37.2 C 68 16 118/74 95 Room Air 09/19/23 07:14 71 09/19/23 02:55 36.5 C 76 20 100/83 96 Room Air Laboratory Results Laboratory Results - last 24 hr 09/18/23 09/18/23 09/18/23 11:20 16:25 19:49 APTT PTT Ratio Sodium Potassium Chloride Carbon Dioxide Anion Gap BUN Creatinine Est Cr Clr Drug Dosing Est GFR ( Amer) Est GFR (Non-Af Amer) BUN/Creatinine Ratio Glucose POC Glucose 287 H 102 H 154 H Calcium Magnesium 09/19/23 09/19/23 04:05 07:16 APTT 58.1 H* PTT Ratio 2.1 Sodium 133 L Potassium 3.8 Chloride 101 Carbon Dioxide 27 Anion Gap 5 BUN 13 Creatinine 0.96 Est Cr Clr Drug Dosing 81.2 Est GFR ( Amer) 104.9 Est GFR (Non-Af Amer) 90.5 BUN/Creatinine Ratio 13.5 Glucose 127 H POC Glucose 137 H Calcium 8.3 L Magnesium 1.9
--- NOTE | 2023-09-19 15:39 | Hospitalist Progress Note ---
Date of Service September 19, 2023 Assessment & Plan (1) Pneumonia: (2) Acute systolic CHF (congestive heart failure): (3) Ischemic cardiomyopathy: (4) Hypoxia: (5) Pulmonary embolism: (6) Elevated troponin: (7) Elevated LFTs: (8) H/O: CVA (cerebrovascular accident): (9) CAD (coronary artery disease): (10) DM type 2 (diabetes mellitus, type 2): (11) Hypertension: (12) Prolonged QT interval: (13) CKD (chronic kidney disease), stage III: Plan per Dr. Iglesias's notes with addendum: 52-year-old male with PMH significant for DM type II, ischemic cardiomyopathy, systolic CHF, GERD, CKD stage III, history of CVA, right carotid endarterectomy, CAD, NSTEMI 2014 s/p BRUCE to RCA, depression, anxiety, and other problems listed below who presented with bilateral lower extremity swelling and shortness of breath. Acute hypoxemic Respiratory Failure Pneumonia Pulmonary Emboli Pulmonary Infarct Chronic Anemia, iron deficiency Pt currently on 5L of oxygen, does not use oxygen at baseline Chest XRAY with patchy bibasilar and midlung opacities suspicious for superimposed pneumonia Chest CTA suggestive of pneumonia vs. pulmonary infarcts as well with noted bilateral areas of wedge-shaped consolidation, most pronounced within the left upper and bilateral lower lobes WBC increased and while downtrending remains persistently elevated in spite of rocephin and doxycycline treatment, not currently on steroids MRSA nares negative Previously treated with Rocephin --> Cefepime for pseudomonas coverage, doxycycline and Flagyl for anaerobic coverage. Pulmonology Consult on 09/13, appreciate recs -Transition to oral DOAC/coumadin for PE -CTA more suggestive of pulm infarct that will likely resolve over time, can cause noninfectious leukocytosis -Recommending followup CT scan w/o contrast in 8-12 weeks after discharge -Pneumonia less likely, but continue with 2 more days of amoxil and zithromax. If AM procal negative, can discontinue abx. -Continue IV diuresis for pleural effusions until BUN/Cr elevated -Hypoxemia likely due to CHF, PE, goal O2 sat >88%, will likely need oxygen on discharge Outpt PFTs due to tobacco Hx 09/14: Clinically stable and remains weak and lethargic but denies any increasing shortness of breath Afebrile and hemodynamically stable Procalcitonin remains little elevated and will continue oral antibiotic For 5 to 7 days more 09/17 currently on room air still on Lasix 20mg IV BID Aldactone 25mg po daily also on Amoxicillin and Azithromycin Eliquis to be changed to Heparin drip given #2 09/18 remains on room air echo: Left ventricular apical thrombus discovered yesterday in the setting of severe cardiomyopathy, LVEF <20%. continue Lasix 20mg IV BID continue Lisinopril, Metoprolol, Spironolactone continue Heparin drip 09/19 continue Lasix IV, Heparin drip Acute systolic CHF (congestive heart failure) Presented with increasing shortness of breath and lower extremity edema, noted to be hypoxemic on room air Acute systolic heart failure with history of cardiomyopathy Appreciate cardiology recs/care: -Milrinone drip, Lasix with supplemental potassium -Oral nitrates, oral hydralazine, lisinopril currently on hold -Metoprolol succinate to 12.5 mg twice daily added -Monitor daily weight, fluid balance, GFR, and electrolytes -Continue chronic clopidogrel due to history of stroke, carotid revascularization, CAD. 09/14: Metoprolol dose has been increased to 25 twice daily and lisinopril has been restarted at a smaller dose of 10 mg daily 09/17 diuretics per above (+) apical thrombus on repeat echo this morning discussed with Dr. Lois Kwok to be transitioned to Heparin this evening will need a Cardiac Cath 09/19 management per above Ischemic cardiomyopathy History of ischemic cardiomyopathy and noted to have EF of 27% Echo showed-inferior scar similar to previous, diffuse left ventricular hypokinesis with EF of 27%, mild diffuse right ventricular hypokinesis was noted as well. Significant changes compared to echo of 2020 Further management as noted above Anemia, iron deficiency Pt also anemic with noted low iron levels currently 25 Likely also contributing to hypoxia Currently on NC 4L-6L IV Venofer 300mg ordered on 09/13 09/19 Hg stable Pulmonary embolism Noted to have bilateral pulmonary emboli No evidence of DVT on doppler 09/18 on Heparin Elevated troponin Trops have plateaued in setting of acute systolic heart failure with history of cardiomyopathy Elevated LFTs T. bili 3.4, AST 55, ALT 216, alk phos 81 INR 1.7 MELD 23 RUQ US noted "heterogeneous liver with suggestion of mild hepatic steatosis and equivocal cirrhosis and was concerning for a 1.7 cm echogenic left hepatic lobe lesion, possibly a hemangioma.Follow up MRI recommended on discharge. Likely congestive hepatopathy from CHF GI consult-appreciate input and recommendation -ordered AIH serologies, acute hepatitis panel, viral panel (CMV,EBV,Parvo,HSV) -noted "Will arrange f/u in GI clinic after DC to r/o cirrhosis using Fibroscan vs liver bx, obtain MRI liver imaging to furhter characterize liver lesion" Continue to trend down LFTs H/O: CVA (cerebrovascular accident) Continue Plavix Holding statin due to elevated LFTs CAD (coronary artery disease) History of NSTEMI in 2013 s/p BRUCE to RCA Continue Plavix and beta-marcial, holding statin due to elevated LFTs No cardiac symptoms management per above DM type 2 (diabetes mellitus, type 2) Hgb A1c 7.0 on 09/09 Patient self stopped metformin 1 year ago NovoLog per protocol while hospitalized Hypertension continue Lisinopril, Metoprolol, Spironolactone Prolonged QT interval QTc 541 Avoid QTc prolonging agents, daily EKG CKD (chronic kidney disease), stage III Baseline creatinine ~ 1.4 Creatinine wnl at this time Continue to monitor renal function CODE STATUS: Full code Diet:DMII, HH, Low sodium DVT PROPHYLAXIS:Heparin drip Dispo:transition to [facility] when medically stable Admission and Anticipated Discharge Date Admission Date: September 08, 2023 Subjective ff up for CHF, etc seen resting in bed, comfortable states he feels fine overall no chest pain, dyspnea, palpitations, dizziness no bleeding, epistaxis no other new symptoms Review of Systems Review of Systems: all noted and negative except for above Physical Exam Physical Exam: General- oriented x 3, not in distress, speaks in sentences with no effort or accessory muscle use Eyes- anicteric Neck- no JVD Lungs- mild rales at the bases Heart- normal rate, regular rhythm; no murmurs Abdomen- normal bowel sounds, nondistended, soft, nontender Extremities- no pretibial edema, no calf tenderness Neuro- alert, oriented x 3; no gross focal neurologic deficits Skin- warm & dry Results & Data Results & Data Vital Signs (Past 12 Hours) Vital Signs Temp Pulse Pulse Resp BP Pulse Ox O2 Del Method 09/19/23 11:13 36.4 C L 71 19 99/57 L 99 Room Air 11/04/23 07:18 37.2 C 68 16 118/74 95 Room Air 09/19/23 07:14 71 all noted and reviewed including below (11) Hypertension Hypertension type: unspecified Qualified Code(s): I10 - Essential (primary) hypertension
[2023-09-19] MEDS: MoRPHine SULFATE 4 MG/ML 1 ML CARP\\VIAL IV PRN (23:48)
[2023-09-20] MEDS ORDERED: POTASSIUM CHLORIDE CRTAB 20 MEQ TABCR PO STA ×2 (01:39→01:40)
[2023-09-20] MEDS ORDERED: METOPROLOL TARTRATE 25 MG TAB PO STA (01:40)
[2023-09-20] MEDS ORDERED: ALBUMIN 25% 12.5 GM/50 ML VIAL IV ONE (01:45)
[2023-09-20] MEDS ORDERED: MAGNESIUM SULFATE / D5W 1 GM/100 ML BAG IV ONE (02:00)
[2023-09-20] MEDS: traMADol HCL 50 MG TABLET PO PRN ×4 (02:20→23:17)
[2023-09-20] MEDS: PROCHLORPERAZINE 5 MG in SYRINGE 4 ML IV PRN (03:37)
[2023-09-20] MEDS: HEPARIN SODIUM/DEXTROSE 25,000 UNITS/500 ML BAG IV SCH (05:54)
[2023-09-20 07:15] LABS: Basophils # (auto) 0.05 K/uL (0.00-0.20); Basophils % (auto) 0.4 %; Eosinophils # (auto) 0.05 K/uL (0.00-0.50); Eosinophils % (auto) 0.4 %; Hematocrit (blood only) 38.3 % (42.0-52.0); Hemoglobin 13.3 g/dl (14.0-18.0); Immature Granulocytes # (auto) 0.13 K/uL (0.01-0.20); Lymphocytes # (auto) 1.44 K/uL (1.20-3.40); Lymphocytes % (auto) 11.4 %; Mean Corpuscular Hemoglobin 27.7 pg (25.0-34.0); Mean Corpuscular Hgb Conc 34.7 g/dL (32.0-36.0); Mean Corpuscular Volume 79.6 fL (80.0-100.0); Mean Platelet Volume 10.9 fL (9.4-12.4); Monocytes # (auto) 0.62 K/uL (0.11-0.59); Monocytes % (auto) 4.9 %; Neutrophils # (auto) 10.29 K/uL (1.40-6.50); Neutrophils % (auto) 81.9 %; Platelet Count 242 K/uL (130-400); RDW Coefficient of Variation 18.9 % (11.5-14.5); RDW Standard Deviation 53.4 fL (36.4-46.3); Red Blood Count 4.81 M/uL (4.70-6.10); White Blood Count 12.58 K/ul (4.8-10.8)
[2023-09-20 07:37] LABS: BUN Creatinine Ratio 12.5 (10-20); Calcium 8.3 mg/dl (8.6-10.3); Creatinine Clr Calc Pharmacy 88.6 ml/min; Est GFR (African American) 114.5 ml/min; Est GFR (Non-African American) 98.8 ml/min; Magnesium 2.2 mg/dl (1.7-2.4); Potassium 4.1 mmol/L (3.5-5.1)
[2023-09-20] MEDS: INSULIN ASPART PER UNIT CHARGE SC SCH ×4 (08:10→20:15)
[2023-09-20] MEDS: METOPROLOL SUCC 50MG EXT REL TAB PO SCH ×2 (08:11→20:14)
[2023-09-20] MEDS: DOCUSATE SODIUM 100 MG CAP PO SCH ×2 (08:11→20:15)
[2023-09-20] MEDS: PANTOprazole 40 MG TAB PO SCH (08:11)
[2023-09-20] MEDS: SPIRONOLACTONE 25 MG TAB PO SCH (08:11)
[2023-09-20] MEDS: CLOPIDOGREL BISULFATE 75 MG TAB PO SCH (08:11)
[2023-09-20] MEDS: MAGNESIUM OXIDE 400 MG TAB PO SCH ×2 (08:11→20:15)
[2023-09-20] MEDS: FUROSEMIDE INJ 20 MG/2 ML VIAL IV SCH ×2 (08:11→16:39)
[2023-09-20 08:15] LABS: Partial Thromboplastin Ratio 1.8
[2023-09-20 08:16] LABS: Partial Thromboplastin Time 51.9 Seconds (21.0-31.0)
[2023-09-20] MEDS: LANTUS PER UNIT CHARGE SC SCH (08:16)
[2023-09-20] MEDS: lisinopril 10 MG TAB PO SCH (09:48)
--- NOTE | 2023-09-20 13:09 | Cardiology Progress Note ---
Date of Service September 20, 2023 Assessment & Plan (1) LV (left ventricular) mural thrombus: (2) Ischemic cardiomyopathy: (3) Acute systolic CHF (congestive heart failure): (4) Pulmonary embolism: Plan Patient clinically improving approaching euvolemia. No oxygen demands We will continue IV furosemide Continue IV heparin given left left ventricular apical thrombus. Ultimate plans conversion to warfarin Given probable ischemic cardiomyopathy will warrant coronary angiography. We will tentatively plan tomorrow. Hold a.m. diuretic Procedure explained the patient is agreeable Admission and Anticipated Discharge Date Admission Date: September 08, 2023 Subjective Patient seen and examined, chart, medications, telemetry reviewed. No acute complaints overnight. Notes appetite has improved substantially. No fevers or chills. No worsening edema. Telemetry with 1 6 beat run of ventricular tachycardia no other arrhythmias. Review of Systems Review of Systems: All systems reviewed & are unremarkable except as noted in Subjective Physical Exam Physical Exam: Temp Pulse Resp BP Pulse Ox O2 Del Method O2 Flow Rate 36.5 C 74 20 91/75 L 97 Nasal Cannula 2 09/08/23 17:32 09/08/23 18:21 09/08/23 18:14 09/08/23 18:21 09/08/23 18:14 09/08/23 18:14 09/08/23 18:14 Constitutional: well nourished; no acute distress Eyes: PERRL, conjunctivae normal, anicteric sclerae ENMT: external ear and nose normal, oropharynx normal Neck: trachea midline, no thyromegaly Respiratory: normal respiratory effort, lungs clear to auscultation no labored breathing and no retractions Auscultation: + diminished lung sounds (Mildly reduced breath sounds at the bases); no crackles, no rales, no rhonchi and no wheezes Cardiovascular: Rate/Rhythm: regular rate and regular rhythm Heart Sounds: normal S1 and normal S2; no murmur Gastrointestinal (Abdomen): Inspection/Auscultation: normal bowel sounds; abdomen not distended Percussion/Palpation: abdomen soft and + ascites; abdomen nontender, no guarding and abdomen not rigid Neurologic: PERRL, EOMI, accommodation nl, no face palsy, no dysarthria CN's II-XI intact bilaterally and moves all extremities; no focal motor deficits Psychiatric: A+Ox3, euthymic affect Results & Data Vital Signs (Past 12 Hours) Vital Signs Temp Pulse Pulse Resp BP Pulse Ox O2 Del Method 09/20/23 11:44 37.5 C 69 21 115/68 96 Room Air 09/20/23 09:00 73 09/20/23 07:51 37.4 C 74 18 98/64 L 96 Room Air 09/20/23 03:14 37.3 C 79 20 125/77 97 Room Air Laboratory Results Laboratory Results - last 24 hr 09/19/23 09/19/23 09/20/23 15:56 20:27 06:33 WBC 12.58 H RBC 4.81 Hgb 13.3 L Hct 38.3 L MCV 79.6 L MCH 27.7 MCHC 34.7 RDW Std Deviation 53.4 H RDW Coeff of Dione 18.9 H Plt Count 242 MPV 10.9 Immature Gran % (Auto) 1.0 Neut % (Auto) 81.9 Lymph % (Auto) 11.4 [place]ois % (Auto) 4.9 Eos % (Auto) 0.4 Baso % (Auto) 0.4 Neut # (Auto) 10.29 H Lymph # (Auto) 1.44 [place]ois # (Auto) 0.62 H Eos # (Auto) 0.05 Baso # (Auto) 0.05 Immature Gran # (Auto) 0.13 APTT 51.9 H* PTT Ratio 1.8 Sodium 132 L Potassium 4.1 Chloride 101 Carbon Dioxide 27 Anion Gap 4 BUN 11 Creatinine 0.88 Est Cr Clr Drug Dosing 88.6 Est GFR ( Amer) 114.5 Est GFR (Non-Af Amer) 98.8 BUN/Creatinine Ratio 12.5 Glucose 131 H POC Glucose 101 H 99 Calcium 8.3 L Magnesium 2.2 09/20/23 09/20/23 07:07 11:04 WBC RBC Hgb Hct MCV MCH MCHC RDW Std Deviation RDW Coeff of Dione Plt Count MPV Immature Gran % (Auto) Neut % (Auto) Lymph % (Auto) [place]ois % (Auto) Eos % (Auto) Baso % (Auto) Neut # (Auto) Lymph # (Auto) [place]ois # (Auto) Eos # (Auto) Baso # (Auto) Immature Gran # (Auto) APTT PTT Ratio Sodium Potassium Chloride Carbon Dioxide Anion Gap BUN Creatinine Est Cr Clr Drug Dosing Est GFR ( Amer) Est GFR (Non-Af Amer) BUN/Creatinine Ratio Glucose POC Glucose 119 H 146 H Calcium Magnesium
--- NOTE | 2023-09-20 14:48 | Hospitalist Progress Note ---
Date of Service September 20, 2023 Assessment & Plan (1) Pneumonia: (2) Acute systolic CHF (congestive heart failure): (3) Ischemic cardiomyopathy: (4) Hypoxia: (5) Pulmonary embolism: (6) Elevated troponin: (7) Elevated LFTs: (8) H/O: CVA (cerebrovascular accident): (9) CAD (coronary artery disease): (10) DM type 2 (diabetes mellitus, type 2): (11) Hypertension: (12) Prolonged QT interval: (13) CKD (chronic kidney disease), stage III: Plan per Dr. Iglesias's notes with addendum: 52-year-old male with PMH significant for DM type II, ischemic cardiomyopathy, systolic CHF, GERD, CKD stage III, history of CVA, right carotid endarterectomy, CAD, NSTEMI 2014 s/p BRUCE to RCA, depression, anxiety, and other problems listed below who presented with bilateral lower extremity swelling and shortness of breath. Acute hypoxemic Respiratory Failure Pneumonia Pulmonary Emboli Pulmonary Infarct Chronic Anemia, iron deficiency Pt currently on 5L of oxygen, does not use oxygen at baseline Chest XRAY with patchy bibasilar and midlung opacities suspicious for superimposed pneumonia Chest CTA suggestive of pneumonia vs. pulmonary infarcts as well with noted bilateral areas of wedge-shaped consolidation, most pronounced within the left upper and bilateral lower lobes WBC increased and while downtrending remains persistently elevated in spite of rocephin and doxycycline treatment, not currently on steroids MRSA nares negative Previously treated with Rocephin --> Cefepime for pseudomonas coverage, doxycycline and Flagyl for anaerobic coverage. Pulmonology Consult on 09/13, appreciate recs -Transition to oral DOAC/coumadin for PE -CTA more suggestive of pulm infarct that will likely resolve over time, can cause noninfectious leukocytosis -Recommending followup CT scan w/o contrast in 8-12 weeks after discharge -Pneumonia less likely, but continue with 2 more days of amoxil and zithromax. If AM procal negative, can discontinue abx. -Continue IV diuresis for pleural effusions until BUN/Cr elevated -Hypoxemia likely due to CHF, PE, goal O2 sat >88%, will likely need oxygen on discharge Outpt PFTs due to tobacco Hx 09/14: Clinically stable and remains weak and lethargic but denies any increasing shortness of breath Afebrile and hemodynamically stable Procalcitonin remains little elevated and will continue oral antibiotic For 5 to 7 days more 09/17 currently on room air still on Lasix 20mg IV BID Aldactone 25mg po daily also on Amoxicillin and Azithromycin Eliquis to be changed to Heparin drip given #2 09/18 remains on room air echo: Left ventricular apical thrombus discovered yesterday in the setting of severe cardiomyopathy, LVEF <20%. continue Lasix 20mg IV BID continue Lisinopril, Metoprolol, Spironolactone continue Heparin drip 09/19 continue Lasix IV, Heparin drip 09/20 for cardiac cath tomorrow Acute systolic CHF (congestive heart failure) Presented with increasing shortness of breath and lower extremity edema, noted to be hypoxemic on room air Acute systolic heart failure with history of cardiomyopathy Appreciate cardiology recs/care: -Milrinone drip, Lasix with supplemental potassium -Oral nitrates, oral hydralazine, lisinopril currently on hold -Metoprolol succinate to 12.5 mg twice daily added -Monitor daily weight, fluid balance, GFR, and electrolytes -Continue chronic clopidogrel due to history of stroke, carotid revascularization, CAD. 09/14: Metoprolol dose has been increased to 25 twice daily and lisinopril has been restarted at a smaller dose of 10 mg daily 09/17 diuretics per above (+) apical thrombus on repeat echo this morning discussed with Dr. Lois Kwok to be transitioned to Heparin this evening will need a Cardiac Cath 09/20 management per above Ischemic cardiomyopathy History of ischemic cardiomyopathy and noted to have EF of 27% Echo showed-inferior scar similar to previous, diffuse left ventricular hypokinesis with EF of 27%, mild diffuse right ventricular hypokinesis was noted as well. Significant changes compared to echo of 2020 Further management as noted above Anemia, iron deficiency Pt also anemic with noted low iron levels currently 25 Likely also contributing to hypoxia Currently on NC 4L-6L IV Venofer 300mg ordered on 09/13 Hg stable Pulmonary embolism Noted to have bilateral pulmonary emboli No evidence of DVT on doppler on Heparin Elevated troponin Trops have plateaued in setting of acute systolic heart failure with history of cardiomyopathy Elevated LFTs T. bili 3.4, AST 55, ALT 216, alk phos 81 INR 1.7 MELD 23 RUQ US noted "heterogeneous liver with suggestion of mild hepatic steatosis and equivocal cirrhosis and was concerning for a 1.7 cm echogenic left hepatic lobe lesion, possibly a hemangioma.Follow up MRI recommended on discharge. Likely congestive hepatopathy from CHF GI consult-appreciate input and recommendation -ordered [facility] serologies, acute hepatitis panel, viral panel (CMV,EBV,Parvo,HSV) -noted "Will arrange f/u in GI clinic after DC to r/o cirrhosis using Fibroscan vs liver bx, obtain MRI liver imaging to furhter characterize liver lesion" Continue to trend down LFTs H/O: CVA (cerebrovascular accident) Continue Plavix Holding statin due to elevated LFTs CAD (coronary artery disease) History of NSTEMI in 2013 s/p BRUCE to RCA Continue Plavix and beta-marcial, holding statin due to elevated LFTs No cardiac symptoms management per above DM type 2 (diabetes mellitus, type 2) Hgb A1c 7.0 on 09/09 Patient self stopped metformin 1 year ago NovoLog per protocol while hospitalized Hypertension continue Lisinopril, Metoprolol, Spironolactone Prolonged QT interval QTc 541 Avoid QTc prolonging agents, daily EKG CKD (chronic kidney disease), stage III Baseline creatinine ~ 1.4 Creatinine wnl at this time Continue to monitor renal function CODE STATUS: Full code Diet:DMII, HH, Low sodium DVT PROPHYLAXIS:Heparin drip Dispo:transition to [facility] when medically stable Admission and Anticipated Discharge Date Admission Date: September 08, 2023 Subjective ff up for CHF, etc seen resting in chair, comfortable states he feels fine overall no chest pain, dyspnea, palpitations, dizziness no other new symptoms Review of Systems Review of Systems: all noted and negative except for above Physical Exam Physical Exam: General- oriented x 3, not in distress, speaks in sentences with no effort or accessory muscle use Eyes- anicteric Neck- no JVD Lungs- clear BS BL Heart- normal rate, regular rhythm; no murmurs Abdomen- normal bowel sounds, nondistended, soft, nontender Extremities- no pretibial edema, no calf tenderness Neuro- alert, oriented x 3; no gross focal neurologic deficits Skin- warm & dry Results & Data Results & Data Vital Signs (Past 12 Hours) Vital Signs Temp Pulse Pulse Resp BP Pulse Ox O2 Del Method 09/20/23 11:44 37.5 C 69 21 115/68 96 Room Air 09/20/23 09:00 73 09/20/23 07:51 37.4 C 74 18 98/64 L 96 Room Air 09/20/23 03:14 37.3 C 79 20 125/77 97 Room Air all noted and reviewed including below (11) Hypertension Hypertension type: unspecified Qualified Code(s): I10 - Essential (primary) hypertension
[2023-09-21] MEDS: HEPARIN SODIUM/DEXTROSE 25,000 UNITS/500 ML BAG IV SCH (02:53)
[2023-09-21 06:47] LABS: BUN Creatinine Ratio 11.7 (10-20); Calcium 8.5 mg/dl (8.6-10.3); Est GFR (African American) 107.6 ml/min; Est GFR (Non-African American) 92.8 ml/min; Potassium 4.1 mmol/L (3.5-5.1)
[2023-09-21 07:36] LABS: Partial Thromboplastin Ratio 1.7
[2023-09-21 07:37] LABS: Partial Thromboplastin Time 49.3 Seconds (21.0-31.0)
[2023-09-21] MEDS: DOCUSATE SODIUM 100 MG CAP PO SCH ×2 (08:17→20:55)
[2023-09-21] MEDS: CLOPIDOGREL BISULFATE 75 MG TAB PO SCH (08:17)
[2023-09-21] MEDS: METOPROLOL SUCC 50MG EXT REL TAB PO SCH ×2 (08:18→20:55)
[2023-09-21] MEDS: PANTOprazole 40 MG TAB PO SCH (08:18)
[2023-09-21] MEDS: lisinopril 10 MG TAB PO SCH (08:18)
[2023-09-21] MEDS: MAGNESIUM OXIDE 400 MG TAB PO SCH ×2 (08:18→20:55)
[2023-09-21] MEDS: SPIRONOLACTONE 25 MG TAB PO SCH (08:19)
[2023-09-21] MEDS: INSULIN ASPART PER UNIT CHARGE SC SCH ×4 (08:24→20:55)
[2023-09-21] MEDS ORDERED: LANTUS PER UNIT CHARGE SC ONE (09:00)
--- NOTE | 2023-09-21 09:22 | Cardiology Progress Note ---
Date of Service September 21, 2023 Assessment & Plan (1) LV (left ventricular) mural thrombus: (2) Ischemic cardiomyopathy: (3) Acute systolic CHF (congestive heart failure): (4) Pulmonary embolism: Plan Patient clinically improving approaching euvolemia. No oxygen demands We will continue IV furosemide Continue IV heparin given left left ventricular apical thrombus. Ultimate plans conversion to warfarin Given probable ischemic cardiomyopathy will warrant coronary angiography. Procedure explained the patient is agreeable Tentative schedule for later today Admission and Anticipated Discharge Date Admission Date: September 08, 2023 Subjective Patient seen and examined, chart, medications, telemetry reviewed. No problems overnight. No chest pains or discomfort. Appetite improving. No fevers or chills. Good oxygenation on room air N.p.o. for possible cath today Physical Exam Physical Exam: Temp Pulse Resp BP Pulse Ox O2 Del Method O2 Flow Rate 36.5 C 74 20 91/75 L 97 Nasal Cannula 2 09/08/23 17:32 09/08/23 18:21 09/08/23 18:14 09/08/23 18:21 09/08/23 18:14 09/08/23 18:14 09/08/23 18:14 Constitutional: well nourished and + ill appearing (Chronically ill in appearance); no acute distress Eyes: PERRL, conjunctivae normal, anicteric sclerae ENMT: external ear and nose normal, oropharynx normal Neck: trachea midline, no thyromegaly Respiratory: normal respiratory effort, lungs clear to auscultation no labored breathing and no retractions Auscultation: + diminished lung sounds (Mildly reduced breath sounds at the bases); no crackles, no rales, no rhonchi and no wheezes Cardiovascular: Rate/Rhythm: regular rate, regular rhythm and + tachycardic Heart Sounds: normal S1 and normal S2; no murmur Vessels: + JVD Extremities: + edema (1+ lower extremity edema L>R) Gastrointestinal (Abdomen): Inspection/Auscultation: normal bowel sounds; abdomen not distended Percussion/Palpation: abdomen soft and + ascites; abdomen nontender, no guarding and abdomen not rigid Neurologic: PERRL, EOMI, accommodation nl, no face palsy, no dysarthria CN's II-XI intact bilaterally and moves all extremities; no focal motor deficits Psychiatric: A+Ox3, euthymic affect Results & Data Vital Signs (Past 12 Hours) Vital Signs Temp Pulse Resp BP Pulse Ox O2 Del Method 09/21/23 07:05 37.2 C 77 17 125/73 99 Room Air 09/21/23 02:32 37 C 86 20 135/78 100 Room Air 09/20/23 23:13 36.9 C 76 17 132/73 98 Room Air
[2023-09-21] MEDS: PHENAZOPYRIDINE HCL 100 MG TAB PO PRN (10:33)
[2023-09-21] MEDS: traMADol HCL 50 MG TABLET PO PRN ×2 (12:27→20:56)
[2023-09-21 12:57] LABS: Appearance Urine Clear (Clear); Bacteria Urine Automated Negative (Negative); Bilirubin Urine Negative (Negative); Blood Urine Negative (Negative); Color Urine Yellow; Glucose Urine UA Negative (Negative); Ketones Urine Negative (Negative); Leukocyte Esterase Urine Negative (Negative); Nitrite Urine Negative (Negative); RBC Urine Automated 0-4 /hpf (0-4); Specific Gravity Urine 1.009 (1.000-1.030); Urobilinogen Urine Negative (Negative)
[2023-09-21 13:05] LABS: Protein Urine Trace (Negative)
--- NOTE | 2023-09-21 14:06 | Pharmacy Report ---
Pharmacy Glycemic Short Note 2 - Date of Service September 21, 2023 - Glycemic Short BSG Results (Last 24 hours): 09/20/23 09/20/23 09/21/23 16:07 20:12 06:14 Glucose 123 H POC Glucose 126 H 102 H 09/21/23 09/21/23 07:04 12:32 Glucose POC Glucose 111 H 109 H OUTPATIENT ANTIDIABETIC REGIMEN: * N/A * HbA1c: 7% (09/09/23) ASSESSMENT: 09/21: * Deyvi's been averaging around 35 units of insulin per day to maintain adequate glycemic control over the last 72 hours. Yesterday, patient received 12 units basal + 28 units bolus (40 units total). BSGs were [phone] mg/dL. * Fasting is at goal this AM, 111 mg/dL. Patient is NPO for tentative cardiac catheterization today. Empirically reduce basal by 33% this AM. Will resume normal dosing tomorrow hopefully if diet is ordered. No changes to Novolog today. 09/18: * BSGs [phone]/dL the last 24h. Received 10 units of basal and 25 units of bolus insulin yesterday. * Tolerating diet, stressors stable. * Will increase basal to 12 units this AM given elevated fasting BSG. Novolog tightened for improved prandial coverage. 09/17: * No documentation from home med list/fill hx that patient is on any home antidiabetic agents. * Patient persistently hyperglycemic over the past few days and has received only bolus insulin thus far. Will give a low dose lantus and tighten novolog coverage today and assess further dosing based on trend tomorrow morning. * Patient is eating. PLAN FOR INPATIENT GLYCEMIC CONTROL: * Basal insulin * Lantus 8 units SC x 1 * Bolus insulin * NovoLog per scale ACHS or Q6hrs while NPO * Goal Range: Low 110 mg/dL - High 140 mg/dL * Breakfast: Correction Factor: 25 mg/dL/unit; Nutritional / Prandial insulin per carb ratio of 1 unit per 5 grams CHO consumed * Lunch, dinner, bedtime: Correction Factor: 25 mg/dL/unit; Nutritional / Prandial insulin per carb ratio of 1 unit per 8 grams CHO consumed
--- NOTE | 2023-09-21 15:07 | Communication Note ---
Date of Service: September 21, 2023 Imaging Analyst procedure delayed due to emergencies Patient may eat today we will keep n.p.o. after midnight tonight Plan on tentative procedure at 7 AM tomorrow Echocardiogram reviewed with severe diffuse LV dysfunction and severe left hypertrophy question infiltrative process versus ischemic cardiomyopathy Coronary angiography in a.m.
--- NOTE | 2023-09-21 15:11 | Hospitalist Progress Note ---
Date of Service September 21, 2023 Assessment & Plan (1) Pneumonia: (2) Acute systolic CHF (congestive heart failure): (3) Ischemic cardiomyopathy: (4) Hypoxia: (5) Pulmonary embolism: (6) Elevated troponin: (7) Elevated LFTs: (8) H/O: CVA (cerebrovascular accident): (9) CAD (coronary artery disease): (10) DM type 2 (diabetes mellitus, type 2): (11) Hypertension: (12) Prolonged QT interval: (13) CKD (chronic kidney disease), stage III: Plan per Dr. Iglesias's notes with addendum: 52-year-old male with PMH significant for DM type II, ischemic cardiomyopathy, systolic CHF, GERD, CKD stage III, history of CVA, right carotid endarterectomy, CAD, NSTEMI 2014 s/p BRUCE to RCA, depression, anxiety, and other problems listed below who presented with bilateral lower extremity swelling and shortness of breath. Acute hypoxemic Respiratory Failure Pneumonia Pulmonary Emboli Pulmonary Infarct Chronic Anemia, iron deficiency Pt currently on 5L of oxygen, does not use oxygen at baseline Chest XRAY with patchy bibasilar and midlung opacities suspicious for superimposed pneumonia Chest CTA suggestive of pneumonia vs. pulmonary infarcts as well with noted bilateral areas of wedge-shaped consolidation, most pronounced within the left upper and bilateral lower lobes WBC increased and while downtrending remains persistently elevated in spite of rocephin and doxycycline treatment, not currently on steroids MRSA nares negative Previously treated with Rocephin --> Cefepime for pseudomonas coverage, doxycycline and Flagyl for anaerobic coverage. Pulmonology Consult on 09/13, appreciate recs -Transition to oral DOAC/coumadin for PE -CTA more suggestive of pulm infarct that will likely resolve over time, can cause noninfectious leukocytosis -Recommending followup CT scan w/o contrast in 8-12 weeks after discharge -Pneumonia less likely, but continue with 2 more days of amoxil and zithromax. If AM procal negative, can discontinue abx. -Continue IV diuresis for pleural effusions until BUN/Cr elevated -Hypoxemia likely due to CHF, PE, goal O2 sat >88%, will likely need oxygen on discharge Outpt PFTs due to tobacco Hx 09/14: Clinically stable and remains weak and lethargic but denies any increasing shortness of breath Afebrile and hemodynamically stable Procalcitonin remains little elevated and will continue oral antibiotic For 5 to 7 days more 09/17 currently on room air still on Lasix 20mg IV BID Aldactone 25mg po daily also on Amoxicillin and Azithromycin Eliquis to be changed to Heparin drip given #2 09/18 remains on room air echo: Left ventricular apical thrombus discovered yesterday in the setting of severe cardiomyopathy, LVEF <20%. continue Lasix 20mg IV BID continue Lisinopril, Metoprolol, Spironolactone continue Heparin drip 09/19 continue Lasix IV, Heparin drip 09/21 stable overall for cardiac cath tomorrow Acute systolic CHF (congestive heart failure) Presented with increasing shortness of breath and lower extremity edema, noted to be hypoxemic on room air Acute systolic heart failure with history of cardiomyopathy Appreciate cardiology recs/care: -Milrinone drip, Lasix with supplemental potassium -Oral nitrates, oral hydralazine, lisinopril currently on hold -Metoprolol succinate to 12.5 mg twice daily added -Monitor daily weight, fluid balance, GFR, and electrolytes -Continue chronic clopidogrel due to history of stroke, carotid revascularization, CAD. 09/14: Metoprolol dose has been increased to 25 twice daily and lisinopril has been restarted at a smaller dose of 10 mg daily 09/17 diuretics per above (+) apical thrombus on repeat echo this morning discussed with Dr. Lois Kwok to be transitioned to Heparin this evening will need a Cardiac Cath 09/21 management per above Ischemic cardiomyopathy History of ischemic cardiomyopathy and noted to have EF of 27% Echo showed-inferior scar similar to previous, diffuse left ventricular hypokinesis with EF of 27%, mild diffuse right ventricular hypokinesis was noted as well. Significant changes compared to echo of 2020 Further management as noted above Anemia, iron deficiency Pt also anemic with noted low iron levels currently 25 Likely also contributing to hypoxia Currently on NC 4L-6L IV Venofer 300mg ordered on 09/13 Hg stable Pulmonary embolism Noted to have bilateral pulmonary emboli No evidence of DVT on doppler on Heparin Elevated troponin Trops have plateaued in setting of acute systolic heart failure with history of cardiomyopathy Elevated LFTs T. bili 3.4, AST 55, ALT 216, alk phos 81 INR 1.7 MELD 23 RUQ US noted "heterogeneous liver with suggestion of mild hepatic steatosis and equivocal cirrhosis and was concerning for a 1.7 cm echogenic left hepatic lobe lesion, possibly a hemangioma.Follow up MRI recommended on discharge. Likely congestive hepatopathy from CHF GI consult-appreciate input and recommendation -ordered [facility] serologies, acute hepatitis panel, viral panel (CMV,EBV,Parvo,HSV) -noted "Will arrange f/u in GI clinic after DC to r/o cirrhosis using Fibroscan vs liver bx, obtain MRI liver imaging to furhter characterize liver lesion" Continue to trend down LFTs H/O: CVA (cerebrovascular accident) Continue Plavix Holding statin due to elevated LFTs CAD (coronary artery disease) History of NSTEMI in 2013 s/p BRUCE to RCA Continue Plavix and beta-marcial, holding statin due to elevated LFTs No cardiac symptoms management per above DM type 2 (diabetes mellitus, type 2) Hgb A1c 7.0 on 09/09 Patient self stopped metformin 1 year ago NovoLog per protocol while hospitalized Hypertension continue Lisinopril, Metoprolol, Spironolactone Prolonged QT interval QTc 541 Avoid QTc prolonging agents, daily EKG CKD (chronic kidney disease), stage III Baseline creatinine ~ 1.4 Creatinine wnl at this time Continue to monitor renal function CODE STATUS: Full code Diet:DMII, HH, Low sodium DVT PROPHYLAXIS:Heparin drip Dispo:transition to [facility] when medically stable Admission and Anticipated Discharge Date Admission Date: September 08, 2023 Subjective ff up for CHF etc seen resting in bed, comfortable states he feels fine overall no chest pain, dyspnea, dizziness no other new symptoms Review of Systems Review of Systems: all noted and negative except for above Physical Exam Physical Exam: General- oriented x 3, not in distress, speaks in sentences with no effort or accessory muscle use Eyes- anicteric Neck- no JVD Lungs- clear BS BL Heart- normal rate, regular rhythm; no murmurs Abdomen- normal bowel sounds, nondistended, soft, no tenderness Extremities- no pretibial edema, no calf tenderness Neuro- alert, oriented x 3; no gross focal neurologic deficits Skin- warm & dry Results & Data Results & Data Vital Signs (Past 12 Hours) Vital Signs Temp Pulse Resp BP Pulse Ox O2 Del Method 09/21/23 11:40 36.9 C 88 19 152/92 H 99 Room Air 09/21/23 07:05 37.2 C 77 17 125/73 99 Room Air all noted and reviewed including below (11) Hypertension Hypertension type: unspecified Qualified Code(s): I10 - Essential (primary) hypertension
[2023-09-22] MEDS: HEPARIN SODIUM/DEXTROSE 25,000 UNITS/500 ML BAG IV SCH (01:47)
[2023-09-22] MEDS: traMADol HCL 50 MG TABLET PO PRN ×3 (02:10→19:50)
[2023-09-22] MEDS ORDERED: niCARdipine HCL INJ 2.5 MG/ML 10 ML AMP ONE (07:05)
[2023-09-22] MEDS ORDERED: HEPARIN (PORCINE) 1000 UNIT/ML 10 ML (CATH LAB USE ONLY) ONE (07:05)
[2023-09-22] MEDS ORDERED: NITROGLYCERIN/D5W 100MCG/ML 20ML SYR ONE (07:06)
[2023-09-22] MEDS ORDERED: fentaNYL citrate PF 100 MCG/2 ML VIAL ONE (07:06)
[2023-09-22] MEDS ORDERED: MIDAZOLAM HCL 1 MG/ML 2ML VIAL ONE (07:06)
--- NOTE | 2023-09-22 07:09 | Pre Anesthesia Assessment ---
Date of Service September 22, 2023 Pre Sedation Assessment Vital Signs Temp Pulse Pulse Resp BP Pulse Ox O2 Del Method 09/22/23 06:54 65 18 132/78 96 Room Air 09/22/23 02:02 37 C 78 23 131/81 96 Room Air 09/21/23 19:35 36.7 C 72 18 117/73 97 Room Air 09/21/23 15:21 82 09/21/23 15:14 37.0 C 77 17 132/82 98 Room Air 09/21/23 11:40 36.9 C 88 19 152/92 H 99 Room Air 09/21/23 07:20 77 Cardiovascular + regular rate and + regular rhythm + S1 normal and + S2 normal no JVD no edema Respiratory normal respiratory effort, lungs clear to auscultation Pre-Sedation Airway Assessment Smoking Status: Current every day smoker Hx Sleep Apnea: No Short, Thick Neck: No Thyromental Distance: > or= 3.5 Finger Breadths Oral Cavity: + Loose Teeth and + Chipped Teeth Mallampati Class: II ASA: ASA3 NPO Status Date of Last Intake of Fluids: 09/21/23 Time of Last Intake of Fluids: 19:00 Date of Last Intake of Solid Food: 09/21/23 Time of Last Intake of Solid Foods: 19:00 Procedure Planning Contraindications for Sedation: none Current Medications Reviewed: Yes Notes The planned sedation has been discussed with the patient. Informed Consent was obtained. I have identified the patient, determined the appropriateness of sedation and have assessed the patient immediately prior to the procedure. All medicine(s) and interventions are by my order.
[2023-09-22 07:14] LABS: BUN Creatinine Ratio 11.1 (10-20); Calcium 8.6 mg/dl (8.6-10.3); Creatinine Clr Calc Pharmacy 78.8 ml/min; Est GFR (African American) 101.1 ml/min; Est GFR (Non-African American) 87.2 ml/min; Potassium 3.9 mmol/L (3.5-5.1)
[2023-09-22 07:48] LABS: Partial Thromboplastin Ratio 1.5
[2023-09-22 07:49] LABS: Partial Thromboplastin Time 43.3 Seconds (21.0-31.0)
--- NOTE | 2023-09-22 08:07 | Cardiology Progress Note ---
Date of Service September 22, 2023 Assessment & Plan (1) LV (left ventricular) mural thrombus: (2) Ischemic cardiomyopathy: (3) Acute systolic CHF (congestive heart failure): (4) Pulmonary embolism: Plan Patient clinically improving approaching euvolemia. No oxygen demands Cardiac catheterization demonstrated diffuse coronary artery atherosclerosis and three-vessel disease. Degree of coronary disease however appears disproportionate to the degree of LV dysfunction Echocardiogram with severe left ventricular hypertrophy and diffuse severe LV dysfunction question infiltrative disease or hypertensive etiology Plan optimize medical therapies: We will increase lisinopril to 10 mg twice per day, add oral nitrates with isosorbide dinitrate 20 twice daily to aid in blood pressure control and reduce LVEDP IV furosemide today after fluid administration and transition to 40 mg twice per day orally Patient warrants long-term anticoagulation due to pulmonary emboli and apical thrombus. Warfarin 5 mg this morning and this afternoon. Continue IV heparin Serum immunoelectrophoresis added to laboratory profile Admission and Anticipated Discharge Date Admission Date: September 08, 2023 Subjective Patient seen and examined both prior to and after coronary angiography. Patient tolerated heart catheterization without difficulty. No cardiac complaints chest pain Study demonstrated diffuse coronary atherosclerosis with three-vessel disease. Markedly elevated left end-diastolic pressure Review of Systems Review of Systems: All systems reviewed & are unremarkable except as noted in Subjective Physical Exam Physical Exam: Temp Pulse Resp BP Pulse Ox O2 Del Method O2 Flow Rate 36.5 C 74 20 91/75 L 97 Nasal Cannula 2 09/08/23 17:32 09/08/23 18:21 09/08/23 18:14 09/08/23 18:21 09/08/23 18:14 09/08/23 18:14 09/08/23 18:14 Constitutional: + thin; no acute distress Eyes: PERRL, conjunctivae normal, anicteric sclerae ENMT: Mallampati Class: II Neck: trachea midline, no thyromegaly Respiratory: normal respiratory effort, lungs clear to auscultation no labored breathing and no retractions Auscultation: + diminished lung sounds (Mildly reduced breath sounds at the bases); no crackles, no rales, no rhonchi and no wheezes Cardiovascular: Rate/Rhythm: regular rate and regular rhythm Heart Sounds: normal S1 and normal S2; no murmur Vessels: no JVD Extremities: no edema Gastrointestinal (Abdomen): Inspection/Auscultation: normal bowel sounds; abdomen not distended Percussion/Palpation: abdomen soft and + ascites; abdomen nontender, no guarding and abdomen not rigid Musculoskeletal: no cyanosis or clubbing, extremities motor strength 5/5 Neurologic: PERRL, EOMI, accommodation nl, no face palsy, no dysarthria CN's II-XI intact bilaterally and moves all extremities; no focal motor deficits Psychiatric: A+Ox3, euthymic affect Results & Data Vital Signs (Past 12 Hours) Vital Signs Temp Pulse Resp BP Pulse Ox O2 Del Method 09/22/23 06:54 65 18 132/78 96 Room Air 09/22/23 02:02 37 C 78 23 131/81 96 Room Air Laboratory Results Laboratory Results - last 24 hr 09/21/23 09/21/23 09/21/23 11:40 12:32 16:21 APTT PTT Ratio Sodium Potassium Chloride Carbon Dioxide Anion Gap BUN Creatinine Est Cr Clr Drug Dosing Est GFR ( Amer) Est GFR (Non-Af Amer) BUN/Creatinine Ratio Glucose POC Glucose 109 H 95 Calcium Urine Color Yellow Urine Appearance Clear Urine pH 8.0 H Ur Specific [place] 1.009 Urine Protein Trace H Urine Glucose (UA) Negative Urine Ketones Negative Urine Blood Negative Urine Nitrite Negative Urine Bilirubin Negative Urine Urobilinogen Negative Ur Leukocyte Esterase Negative Urine WBC (Auto) 1-5 Urine RBC (Auto) 0-4 U Hyaline Cast (Auto) 1-5 U Epithel Cells (Auto) 10-20 H Urine Bacteria (Auto) Negative 09/21/23 09/22/23 09/22/23 20:32 02:13 06:19 APTT 43.3 H* PTT Ratio 1.5 Sodium 135 L Potassium 3.9 Chloride 104 Carbon Dioxide 25 Anion Gap 6 BUN 11 Creatinine 0.99 Est Cr Clr Drug Dosing 78.8 Est GFR ( Amer) 101.1 Est GFR (Non-Af Amer) 87.2 BUN/Creatinine Ratio 11.1 Glucose 170 H POC Glucose 141 H 149 H Calcium 8.6 Urine Color Urine Appearance Urine pH Ur Specific [place] Urine Protein Urine Glucose (UA) Urine Ketones Urine Blood Urine Nitrite Urine Bilirubin Urine Urobilinogen Ur Leukocyte Esterase Urine WBC (Auto) Urine RBC (Auto) U Hyaline Cast (Auto) U Epithel Cells (Auto) Urine Bacteria (Auto) 09/22/23 09/22/23 09:40 11:25 APTT PTT Ratio Sodium Potassium Chloride Carbon Dioxide Anion Gap BUN Creatinine Est Cr Clr Drug Dosing Est GFR ( Amer) Est GFR (Non-Af Amer) BUN/Creatinine Ratio Glucose POC Glucose 150 H 157 H Calcium Urine Color Urine Appearance Urine pH Ur Specific [place] Urine Protein Urine Glucose (UA) Urine Ketones Urine Blood Urine Nitrite Urine Bilirubin Urine Urobilinogen Ur Leukocyte Esterase Urine WBC (Auto) Urine RBC (Auto) U Hyaline Cast (Auto) U Epithel Cells (Auto) Urine Bacteria (Auto)
--- NOTE | 2023-09-22 08:12 | Cardiac Catheterization ---
Cardiac Cath Procedure Brief Procedure Date September 22, 2023 Pre-Procedure Diagnosis Pre-Procedure Diagnosis: CHF and Cardiomyopathy AUC Score AUC Score: 8 Post-Procedure Diagnosis Post-Procedure Diagnosis: Severe CAD Procedure(s) Performed Procedure(s) Performed: Coronary Angiography and Left Heart Cath Paint Roller Assembler Dany Chris MD [employer] Vat Worker(s) Antony Becker Estimated Blood Loss Estimated Blood Loss: <15cc Medication(s) Medication(s): Fentanyl (12.5 mcg IV x 2), Heparin (5000 units IV), Lidocaine 1% (Local infiltration access site), Nicardipine (250 mcg intra-arterial after arterial sheath insertion) and Versed (1 mg IV) Preliminary Findings Impression: Three-vessel coronary disease Markedly elevated left end-diastolic pressure Recommendations Recommendations: Medical Therapy and/or Counseling Specimens Specimens: None Fluids (cc crystalloids) Fluids (cc crystalloids): 60 Anesthesia Start time: 06 15 stop time: Procedural Complication(s) None Disposition PCU
[2023-09-22] MEDS ORDERED: SODIUM CHLORIDE 0.9% 1,000 ML IV SCH (08:15)
--- NOTE | 2023-09-22 08:15 | Cardiac Catheterization ---
Cardiac Cath Procedure Full Procedure Date September 22, 2023 Pre-Procedure Diagnosis Pre-Procedure Diagnosis: CHF and Cardiomyopathy AUC Score AUC Score: 8 Post-Procedure Diagnosis Post-Procedure Diagnosis: Severe CAD Procedure(s) Performed Procedure(s) Performed: Coronary Angiography and Left Heart Cath Airport Control Operator Dany Chris MD Program Engineer(s) Antony Becker Estimated Blood Loss Estimated Blood Loss: <15cc Medication(s) Medication(s): Fentanyl (12.5 mcg IV x 2), Heparin (5000 units IV), Lidocaine 1% (Local infiltration access site), Nicardipine (250 mcg intra-arterial after arterial sheath insertion) and Versed (1 mg IV) Summary of Findings Impression: Three-vessel coronary artery disease with markedly elevated left end-diastolic pressure. Diffuse coronary atherosclerosis but degree of coronary disease disproportionate to degree of systolic dysfunction Procedure: Coronary angiography and left heart catheterization via right radial access Catheters: 6 Liberian long glide sheath, 5 Liberian [place], 5 Liberian JR4, 5 Liberian 3 DRC Coronary angiography: Right dominant anatomy Left main: Long with mild calcification but no obstruction Left anterior descending: Type 2 in distribution. It gives rise to a modest caliber diagonal branch shortly after its origin. There is diffuse atherosclerosis, with serial 50% stenoses proximal to mid vessel Ramus intermedius: Very large caliber trifurcating vessel with diffuse disease, 70% proximal, 60% mid 80% distal stenoses. 2 subbranches with ostial disease a second is very trivial in size but with subtotal stenosis Left circumflex: Modest caliber vessel. It gives rise to a trivial marginal branch at the end of its proximal third and a single posterolateral branch. Left circumflex has diffuse disease with a 70% narrowing at the origin of the marginal. Marginal branch is diffusely diseased. Right coronary artery: Ostial and diffuse disease with proximal vessel 100% occlusion. Very faint filling of the vessel distally via left to right collaterals LV angiography: Not performed LVEDP 43 Hemodynamics Rest Ao:: 175/84/115 Final Ao: 166/18/43 LV: 154/96/121 Recommendations Recommendations: Medical Therapy and/or Counseling Specimens Specimens: None Radiation Exposure (mGy) 1119 Contrast (mls) 40 Fluids (cc crystalloids) Fluids (cc crystalloids): 60 Anesthesia Start time: 06 15 stop time: Procedural Complication(s) None Disposition PCU I attest to the content of the Intraoperative Record and any orders documented therein. Any exceptions are noted below. ACC Data: Mattress Inspector Cardiac Status Clinical evaluation leading to the procedure 52-year-old male with known coronary disease presenting with acute pulmonary embolus and refractory decompensated congestive heart failure with severe LV dysfunction CAD Presenation: Non STEMI and Sx unlikely to be ischemic Anginal Classification: No Symptoms Heart Failure: NYHA Class: CCS IV Cardiogenic Shock within 24 Hours: No Cardiac Arrest within 24 Hours: No Imaging Studies Past 6 Months: Yes Stress Studies Past 6 Months: No Standard Exercise Test: No Stress Echocardiogram: No Stress Testing w/SPECT MPI: No Cardiac CTA: No Coronary Anatomy Dominant: Right Left Main (% Stenosis): Mid (Mild calcification) LAD (% Stenosis): Mid (Diffuse atherosclerosis with serial 40 to 50%) Circumflex (% Stenosis): Mid (70) RCA (% Stenosis): Ostial (60) and Proximal (100%) Ramus (% Stenosis): Proximal (70), Mid (60) and Distal (80) Left Ventricular Angiography EF (%): N/A Diagnostic Physicians Name: Dany Chris MD Status: Urgent Closure Device Percutaneous Entry Location: Radial Closure Device: Radial Band Recommendations: Medical Therapy and/or Counseling
[2023-09-22] MEDS ORDERED: LANTUS PER UNIT CHARGE SC ONE ×2 (09:00→11:30)
[2023-09-22] MEDS ORDERED: FUROSEMIDE 40 MG/4 ML VIAL IV ONE (09:04)
[2023-09-22] MEDS: CLOPIDOGREL BISULFATE 75 MG TAB PO SCH (09:32)
[2023-09-22] MEDS: lisinopril 10 MG TAB PO SCH ×2 (09:33→20:57)
[2023-09-22] MEDS: SPIRONOLACTONE 25 MG TAB PO SCH (09:33)
[2023-09-22] MEDS: METOPROLOL SUCC 50MG EXT REL TAB PO SCH ×2 (09:33→20:58)
[2023-09-22] MEDS: PANTOprazole 40 MG TAB PO SCH (09:33)
[2023-09-22] MEDS: MAGNESIUM OXIDE 400 MG TAB PO SCH ×2 (09:33→20:56)
[2023-09-22] MEDS: DOCUSATE SODIUM 100 MG CAP PO SCH ×2 (09:37→19:48)
[2023-09-22] MEDS: INSULIN ASPART PER UNIT CHARGE SC SCH ×4 (09:37→20:59)
--- NOTE | 2023-09-22 10:48 | Pharmacy Report ---
Pharmacy Glycemic Short Note 2 - Date of Service September 22, 2023 - Glycemic Short BSG Results (Last 24 hours): 09/21/23 09/21/23 09/21/23 12:32 16:21 20:32 Glucose POC Glucose 109 H 95 141 H 09/22/23 09/22/23 09/22/23 02:13 06:19 09:40 Glucose 170 H POC Glucose 149 H 150 H OUTPATIENT ANTIDIABETIC REGIMEN: * N/A * HbA1c: 7% (09/09/23) ASSESSMENT: 09/22: * Patient did not undergo cardiac catheterization yesterday. T2DM diet was ordered with dinner. Received 8 units basal + 3 units bolus. BSGs were: [id number] mg/dL. * Fasting BSG is 150 mg/dL this AM. NPO again for cardiac catheterization which has already been completed as of the time of this note. T2DM diet reordered and patient ate a late breakfast. Gave 6 units of Lantus originally this AM. Will order another 6 units with lunch since well controlled on 12 units of basal daily prior to NPO status. Other stressors stable. No change to Novolog. 09/21: * Deyvi's been averaging around 35 units of insulin per day to maintain adequate glycemic control over the last 72 hours. Yesterday, patient received 12 units basal + 28 units bolus (40 units total). BSGs were [phone] mg/dL. * Fasting is at goal this AM, 111 mg/dL. Patient is NPO for tentative cardiac catheterization today. Empirically reduce basal by 33% this AM. Will resume normal dosing tomorrow hopefully if diet is ordered. No changes to Novolog today. 09/18: * BSGs [phone]/dL the last 24h. Received 10 units of basal and 25 units of bolus insulin yesterday. * Tolerating diet, stressors stable. * Will increase basal to 12 units this AM given elevated fasting BSG. Novolog tightened for improved prandial coverage. 09/17: * No documentation from home med list/fill hx that patient is on any home antidiabetic agents. * Patient persistently hyperglycemic over the past few days and has received only bolus insulin thus far. Will give a low dose lantus and tighten novolog coverage today and assess further dosing based on trend tomorrow morning. * Patient is eating. PLAN FOR INPATIENT GLYCEMIC CONTROL: * Basal insulin * Lantus 6 units SC x 2 (12 units total) * Resume 12 units SC daily tomorrow AM * Bolus insulin * NovoLog per scale ACHS or Q6hrs while NPO * Goal Range: Low 110 mg/dL - High 140 mg/dL * Breakfast: Correction Factor: 25 mg/dL/unit; Nutritional / Prandial insulin per carb ratio of 1 unit per 5 grams CHO consumed * Lunch, dinner, bedtime: Correction Factor: 25 mg/dL/unit; Nutritional / Prandial insulin per carb ratio of 1 unit per 8 grams CHO consumed
[2023-09-22] MEDS ORDERED: WARFARIN SOD 5 MG TAB PO ONE (11:23)
[2023-09-22] MEDS: ISOSORBIDE DINITRATE 20 MG TAB PO SCH (12:24)
--- NOTE | 2023-09-22 15:24 | Hospitalist Progress Note ---
Date of Service September 22, 2023 Assessment & Plan (1) Pneumonia: (2) Acute systolic CHF (congestive heart failure): (3) Ischemic cardiomyopathy: (4) Hypoxia: (5) Pulmonary embolism: (6) Elevated troponin: (7) Elevated LFTs: (8) H/O: CVA (cerebrovascular accident): (9) CAD (coronary artery disease): (10) DM type 2 (diabetes mellitus, type 2): (11) Hypertension: (12) Prolonged QT interval: (13) CKD (chronic kidney disease), stage III: Plan per Dr. Iglesias's notes with addendum: 52-year-old male with PMH significant for DM type II, ischemic cardiomyopathy, systolic CHF, GERD, CKD stage III, history of CVA, right carotid endarterectomy, CAD, NSTEMI 2014 s/p BRUCE to RCA, depression, anxiety, and other problems listed below who presented with bilateral lower extremity swelling and shortness of breath. Acute hypoxemic Respiratory Failure Pneumonia Pulmonary Emboli, Pulmonary Infarct Chronic Anemia, iron deficiency Initially required oxygen supplementation 5 L Chest XRAY with patchy bibasilar and midlung opacities suspicious for supe rimposed pneumonia Chest CTA suggestive of pneumonia vs. pulmonary infarcts as well with noted bilateral areas of wedge-shaped consolidation, most pronounced within the left upper and bilateral lower lobes WBC increased and while downtrending remains persistently elevated in spite of rocephin and doxycycline treatment, not currently on steroids MRSA nares negative Previously treated with Rocephin --> Cefepime for pseudomonas coverage, doxycycline and Flagyl for anaerobic coverage. Pulmonology Consult on 09/13, appreciate recs -Transition to oral DOAC/coumadin for PE -CTA more suggestive of pulm infarct that will likely resolve over time, can cause noninfectious leukocytosis -Recommending followup CT scan w/o contrast in 8-12 weeks after discharge currently on room air Completed course of antibiotics for pneumonia Management of CHF per below 09/18 remains on room air echo: Left ventricular apical thrombus discovered yesterday in the setting of severe cardiomyopathy, LVEF <20%. continue Lasix 20mg IV BID continue Lisinopril, Metoprolol, Spironolactone continue Heparin drip 09/19 continue Lasix IV, Heparin drip 09/21 stable overall for cardiac cath tomorrow Acute systolic CHF (congestive heart failure) Left ventricular apical thrombus Presented with increasing shortness of breath and lower extremity edema, noted to be hypoxemic on room air Acute systolic heart failure with history of cardiomyopathy Initially placed on milrinone drip Given IV Lasix with good diuresis Echocardiogram revealing: Left ventricular apical thrombus discovered in the setting of severe cardiomyopathy, LVEF <20%. Status post cardiac cath 09/22: Three-vessel coronary artery disease with markedly elevated left end- diastolic pressure. Diffuse coronary atherosclerosis but degree of coronary disease disproportionate to degree of systolic dysfunction continue Lasix 40mg BID continue Lisinopril, Metoprolol, Spironolactone Isosorbide dinitrate added Placed on heparin drip, now Coumadin started Will need bridging with heparin drip or Lovenox INR therapeutic Ischemic cardiomyopathy History of ischemic cardiomyopathy and noted to have EF of 27% Echo showed-inferior scar similar to previous, diffuse left ventricular hypokinesis with EF of 27%, mild diffuse right ventricular hypokinesis was noted as well. Significant changes compared to echo of 2020 Management per above Anemia, iron deficiency Pt also anemic with noted low iron levels currently 25 Likely also contributing to hypoxia Currently on NC 4L-6L IV Venofer 300mg ordered on 09/13 Hg stable Pulmonary embolism Noted to have bilateral pulmonary emboli No evidence of DVT on doppler on Heparin plus Coumadin Elevated troponin Trops have plateaued in setting of acute systolic heart failure with history of cardiomyopathy Elevated LFTs T. bili 3.4, AST 55, ALT 216, alk phos 81 INR 1.7 MELD 23 RUQ US noted "heterogeneous liver with suggestion of mild hepatic steatosis and equivocal cirrhosis and was concerning for a 1.7 cm echogenic left hepatic lobe lesion, possibly a hemangioma.Follow up MRI recommended on discharge. Likely congestive hepatopathy from CHF GI consult-appreciate input and recommendation -ordered [facility] serologies, acute hepatitis panel, viral panel (CMV,EBV,Parvo,HSV) -noted "Will arrange f/u in GI clinic after DC to r/o cirrhosis using Fibroscan vs liver bx, obtain MRI liver imaging to furhter characterize liver lesion" Continue to trend down LFTs H/O: CVA (cerebrovascular accident) Continue Plavix Holding statin due to elevated LFTs CAD (coronary artery disease) History of NSTEMI in 2013 s/p BRUCE to RCA Continue Plavix and beta-marcial, holding statin due to elevated LFTs No cardiac symptoms management per above DM type 2 (diabetes mellitus, type 2) Hgb A1c 7.0 on 09/09 Patient self stopped metformin 1 year ago NovoLog per protocol while hospitalized Hypertension continue Lisinopril, Metoprolol, Spironolactone Prolonged QT interval QTc 541 Avoid QTc prolonging agents, daily EKG CKD (chronic kidney disease), stage III Baseline creatinine ~ 1.4 Creatinine wnl at this time Continue to monitor renal function CODE STATUS: Full code Diet:DMII, HH, Low sodium DVT PROPHYLAXIS:Heparin drip plus Coumadin Dispo:transition to [facility] when medically stable Admission and Anticipated Discharge Date Admission Date: September 08, 2023 Subjective Follow-up for acute CHF, etc. Seen resting in bed, comfortable Status post cardiac cath this morning States he feels fine overall no chest pain, dyspnea, palpitations, dizziness No bleeding No other symptoms Review of Systems Review of Systems: all noted and negative except for above Physical Exam Physical Exam: General- oriented x 3, not in distress, speaks in sentences with no effort or accessory muscle use Eyes- anicteric Neck- no JVD Lungs- clear breath sounds bilaterally, no rales/wheezes Heart- normal rate, regular rhythm; no murmurs Abdomen- normal bowel sounds, nondistended, soft, nontender Extremities- no pretibial edema, no calf tenderness Neuro- alert, oriented x 3; no gross focal neurologic deficits Skin- warm & dry Results & Data Results & Data Vital Signs (Past 12 Hours) Vital Signs Temp Pulse Pulse Resp BP BP BP 09/22/23 14:27 36.4 C L 75 18 108/68 09/22/23 13:16 36.9 C 76 20 114/68 09/22/23 12:13 92 H 18 151/95 H 09/22/23 11:50 09/22/23 11:48 36.9 C 74 22 121/77 09/22/23 11:15 78 18 128/77 09/22/23 10:53 36.3 C L 75 16 139/90 09/22/23 10:19 36.6 C 82 16 133/80 09/22/23 09:55 36.3 C L 81 18 131/80 09/22/23 09:16 36.3 C L 80 16 128/82 09/22/23 09:00 37 C 80 14 138/83 09/22/23 08:05 88 18 167/102 H 09/22/23 06:54 65 18 132/78 Pulse Ox O2 Del Method 09/22/23 14:27 95 Room Air 09/22/23 13:16 95 Room Air 09/22/23 12:13 95 Room Air 09/22/23 11:50 Room Air 09/22/23 11:48 96 Room Air 09/22/23 11:15 94 Room Air 09/22/23 10:53 96 Room Air 09/22/23 10:19 97 Room Air 09/22/23 09:55 96 Room Air 09/22/23 09:16 97 Room Air 09/22/23 09:00 87 L Room Air 09/22/23 08:05 98 Room Air .dayron noted and reviewed including below 09/22/23 06:54 96 Room Air all noted and reviewed including below (11) Hypertension Hypertension type: unspecified Qualified Code(s): I10 - Essential (primary) hypertension
[2023-09-22] MEDS ORDERED: WARFARIN SOD 5 MG TAB PO SCH (16:00)
[2023-09-22] MEDS: FUROSEMIDE 40 MG TAB PO SCH (16:43)
[2023-09-22] MEDS: PHENAZOPYRIDINE HCL 100 MG TAB PO PRN (19:51)
[2023-09-22] MEDS: MELATONIN 3 MG TAB PO PRN (20:55)
[2023-09-22] MEDS ORDERED: Heparin IV Adult Wt-Based Standard *NO* Bolus Protocol IV STA (21:53)
[2023-09-22] MEDS ORDERED: HEPARIN SODIUM/DEXTROSE 25,000 UNITS/500 ML BAG IV SCH (22:15)
[2023-09-23] MEDS: traMADol HCL 50 MG TABLET PO PRN ×2 (01:50→12:30)
[2023-09-23 05:12] LABS: INR 1.3 (0.9-1.1); Partial Thromboplastin Ratio 1.5; Prothrombin Time 13.7 Seconds (9.0-12.0)
[2023-09-23 05:32] LABS: Partial Thromboplastin Time 43.1 Seconds (21.0-31.0)
[2023-09-23] MEDS: DOCUSATE SODIUM 100 MG CAP PO SCH (08:21)
[2023-09-23] MEDS: lisinopril 10 MG TAB PO SCH (08:21)
[2023-09-23] MEDS: FUROSEMIDE 40 MG TAB PO SCH (08:21)
[2023-09-23] MEDS: MAGNESIUM OXIDE 400 MG TAB PO SCH (08:21)
[2023-09-23] MEDS: METOPROLOL SUCC 50MG EXT REL TAB PO SCH (08:21)
[2023-09-23] MEDS: CLOPIDOGREL BISULFATE 75 MG TAB PO SCH (08:21)
[2023-09-23] MEDS: ISOSORBIDE DINITRATE 20 MG TAB PO SCH ×2 (08:21→13:25)
[2023-09-23] MEDS: SPIRONOLACTONE 25 MG TAB PO SCH (08:22)
[2023-09-23] MEDS: PANTOprazole 40 MG TAB PO SCH (08:22)
[2023-09-23] MEDS: INSULIN ASPART PER UNIT CHARGE SC SCH ×2 (08:28→12:31)
[2023-09-23] MEDS: LANTUS PER UNIT CHARGE SC SCH (08:28)
[2023-09-23] MEDS: PHENAZOPYRIDINE HCL 100 MG TAB PO PRN (08:33)
[2023-09-23] MEDS ORDERED: ENOXAPARIN 1 MG/KG SQ SCH (10:00)
[2023-09-23] MEDS ORDERED: ENOXAPARIN 80 MG/0.8 ML SYR SQ SCH (10:15)
--- NOTE | 2023-09-23 10:42 | Cardiology Progress Note ---
Date of Service September 23, 2023 Assessment & Plan (1) LV (left ventricular) mural thrombus: (2) Ischemic cardiomyopathy: (3) Acute systolic CHF (congestive heart failure): (4) Pulmonary embolism: Plan Patient clinically improving approaching euvolemia. No oxygen demands Cardiac catheterization demonstrated diffuse coronary artery atherosclerosis and three-vessel disease. Degree of coronary disease however appears disproportionate to the degree of LV dysfunction Echocardiogram with severe left ventricular hypertrophy and diffuse severe LV dysfunction question infiltrative disease or hypertensive etiology Plan optimize medical therapies: We will increase lisinopril to 10 mg twice per day, add oral nitrates with isosorbide dinitrate 20 twice daily to aid in blood pressure control and reduce LVEDP IV furosemide today after fluid administration and transition to 40 mg twice per day orally Patient warrants long-term anticoagulation due to pulmonary emboli and apical thrombus. Warfarin 5 mg this morning and this afternoon. Continue IV heparin Serum immunoelectrophoresis added to laboratory profile 09/23/2023 No cardiac complaints tolerating increased medical therapies No oxygen demand on room air No significant arrhythmia Plan continued medical therapy, chronic anticoagulation. Consider Entresto post hospital discharge Admission and Anticipated Discharge Date Admission Date: September 08, 2023 Subjective Patient seen and examined, chart, medications, telemetry reviewed. Complains of dysuria but otherwise no acute cardiac complaints. No arrhythmias of significance on telemetry Tolerating adjustments in medical therapies with now on oral regimen Anticoagulation IV heparin with warfarin ordered for pulmonary embolus and left ventricular thrombus Review of Systems Review of Systems: All systems reviewed & are unremarkable except as noted in Subjective Physical Exam Physical Exam: Temp Pulse Resp BP Pulse Ox O2 Del Method O2 Flow Rate 36.5 C 74 20 91/75 L 97 Nasal Cannula 2 09/08/23 17:32 09/08/23 18:21 09/08/23 18:14 09/08/23 18:21 09/08/23 18:14 09/08/23 18:14 09/08/23 18:14 Constitutional: well nourished, + ill appearing (Chronically ill in appearance) and + thin; no acute distress Eyes: PERRL, conjunctivae normal, anicteric sclerae ENMT: Mallampati Class: II Neck: trachea midline, no thyromegaly Respiratory: normal respiratory effort, lungs clear to auscultation no labored breathing and no retractions Auscultation: + diminished lung sounds (Mildly reduced breath sounds at the bases); no crackles, no rales, no rhonchi and no wheezes Cardiovascular: Rate/Rhythm: regular rate and regular rhythm Heart Sounds: normal S1 and normal S2; no murmur Vessels: radial pulses present (Radial access site healing well); no JVD Extremities: no edema Gastrointestinal (Abdomen): Inspection/Auscultation: normal bowel sounds; abdomen not distended Percussion/Palpation: abdomen soft and + ascites; abdomen nontender, no guarding and abdomen not rigid Musculoskeletal: no cyanosis or clubbing, extremities motor strength 5/5 Neurologic: PERRL, EOMI, accommodation nl, no face palsy, no dysarthria CN's II-XI intact bilaterally and moves all extremities; no focal motor deficits Psychiatric: A+Ox3, euthymic affect Results & Data Vital Signs (Past 12 Hours) Vital Signs Temp Pulse Pulse Resp BP BP Pulse Ox 09/23/23 10:15 83 09/23/23 08:16 37.0 C 76 18 110/65 97 09/23/23 03:08 37.0 C 80 21 138/70 98 09/22/23 23:58 36.3 C L 73 19 128/79 93 O2 Del Method 09/23/23 10:15 09/23/23 08:16 Room Air 09/23/23 03:08 Room Air 09/22/23 23:58 Room Air Laboratory Results Laboratory Results - last 24 hr 09/22/23 09/22/23 09/22/23 11:25 16:25 20:36 PT INR APTT PTT Ratio POC Glucose 157 H 92 179 H Serum Immunofixation 09/23/23 09/23/23 04:20 07:36 PT 13.7 H INR 1.3 H APTT 43.1 H* PTT Ratio 1.5 POC Glucose 149 H Serum Immunofixation Pending
[2023-09-23 11:04] LABS: Appearance Urine Clear (Clear); Bacteria Urine Automated Negative (Negative); Blood Urine Negative (Negative); Color Urine Dark Yellow; Glucose Urine UA Trace (Negative); Ketones Urine Negative (Negative); Leukocyte Esterase Urine Trace (Negative); Nitrite Urine Positive (Negative); Protein Urine 1+ (Negative); RBC Urine Automated 0-4 /hpf (0-4); Specific Gravity Urine 1.018 (1.000-1.030); Urobilinogen Urine Negative (Negative)
[2023-09-23 11:07] LABS: Bilirubin Urine 1+ (Negative)
[2023-09-23 12:46] LABS: Est GFR (African American) 97.5 ml/min; Potassium 3.6 mmol/L (3.5-5.1)
[2023-09-23 12:47] LABS: BUN Creatinine Ratio 8.8 (10-20); Calcium 8.8 mg/dl (8.6-10.3); Creatinine Clr Calc Pharmacy 76.4 ml/min; Est GFR (Non-African American) 84.1 ml/min
--- NOTE | 2023-09-23 14:28 | Discharge Summary ---
Date of Service September 23, 2023 Admission HPI Per Admitting Provider 52-year-old male with PMH DM type II, ischemic cardiomyopathy, systolic CHF, GERD, CKD stage III, history of CVA, right carotid endarterectomy, CAD, NSTEMI 2014 s/p BRUCE to RCA, depression, anxiety, and other problems listed below who presents to the ED for evaluation of bilateral lower extremity swelling and shortness of breath. History obtained from the patient and review of outpatient PCP and cardiology records. Patient reports he noted lower extremity swelling about 1 week ago. States he has no swelling at baseline. Reports mild exertional shortness of breath. No chest pain or orthopnea. Has had a cough that has been rarely productive. Denies fevers and chills. Reports epigastric discomfort and vomiting over the past couple days. Denies hematemesis, coffee- ground emesis, bright red bleeding per rectum, dark tarry stools. No lightheadedness, dizziness, diaphoresis, syncopal events. Denies urinary symptoms. In the ED, patient was mildly hypoxic in room air at 88%. Requiring 2 L of oxygen via nasal cannula. Patient was mildly tachycardic, BP elevated. Labs show WBC 13.8 K, D-dimer 15,000, transaminitis, HS troponin 128 --> 106, CRP 7.6, proBNP 3000, lipase 179. CTA shows bilateral subsegmental PE, bilateral pleural effusions, possible pneumonia. Patient was given IV ceftriaxone, IVF, and started on heparin drip. Admission Exam Per Admitting Provider Constitutional: + disheveled; no acute distress and + not well groomed Eyes: PERRL, conjunctivae normal, anicteric sclerae ENMT: external ear and nose normal, oropharynx normal Respiratory: normal respiratory effort; no respiratory distress Auscultation: + crackles (Bilateral, left > right) Cardiovascular: Rate/Rhythm: regular rate and regular rhythm Vessels: normal peripheral pulses Extremities: + edema (+2 pitting edema BLE) Gastrointestinal (Abdomen): Inspection/Auscultation: abdomen not distended Percussion/Palpation: + abdomen tender (Mild epigastric tenderness) and abdomen soft Musculoskeletal: no cyanosis or clubbing, extremities motor strength 5/5 Skin: no rashes, warm and dry Neurologic: PERRL, EOMI, accommodation nl, no face palsy, no dysarthria Psychiatric: Orientation: alert and oriented x 3 Affect: + flat affect Principal Diagnosis Acute hypoxemic Respiratory Failure Pneumonia Pulmonary Emboli, Pulmonary Infarct Chronic Anemia, iron deficiency Acute systolic CHF (congestive heart failure) Left ventricular apical thrombus Ischemic cardiomyopathy Discharge Exam General- oriented x 3, not in distress, speaks in sentences with no effort or accessory muscle use Eyes- anicteric Neck- no JVD Lungs- clear breath sounds bilaterally, no rales/wheezes Heart- normal rate, regular rhythm; no murmurs Abdomen- normal bowel sounds, nondistended, soft, nontender Extremities- no pretibial edema, no calf tenderness Neuro- alert, oriented x 3; no gross focal neurologic deficits Skin- warm & dry Discharge Data Allergies Allergy/AdvReac Type Severity Reaction Status Date / Time No Known Allergies Allergy Verified 09/08/23 14:20 Consultations 09/08/23 14:29 ED Decision to Admit Stat 09/08/23 16:08 Consult Cardiology Routine 09/08/23 17:29 Consult Gastroenterology Routine 09/10/23 06:06 Consult Urology Routine 09/13/23 08:57 Consult Pulmonology Routine Procedures Performed Operation Date: 09/22/23 07:00 Actual Procedures s Cineradiography w/Routine Exam - Dany Chris MD p Cath, Left with Cors and Vent - Dany Chris MD Ordered Studies 09/08/23 11:53 CT for pulmonary embolism PE [CT angio chest PE protocol] Stat 09/08/23 15:10 US RUQ [US liver] Urgent US venous doppler LE BI Routine 09/21/23 07:17 CL Cath Imgs for PACS use only Routine 09/22/23 07:12 CL Cath Imgs for PACS use only Routine Hospital Course (1) Pneumonia: (2) Acute systolic CHF (congestive heart failure): (3) Ischemic cardiomyopathy: (4) Hypoxia: (5) Pulmonary embolism: (6) Elevated troponin: (7) Elevated LFTs: (8) H/O: CVA (cerebrovascular accident): (9) CAD (coronary artery disease): (10) DM type 2 (diabetes mellitus, type 2): (11) Hypertension: (12) Prolonged QT interval: (13) CKD (chronic kidney disease), stage III: Plan 52-year-old male with PMH significant for DM type II, ischemic cardiomyopathy, systolic CHF, GERD, CKD stage III, history of CVA, right carotid endarterectomy, CAD, NSTEMI 2014 s/p BRUCE to RCA, depression, anxiety, and other problems listed below who presented with bilateral lower extremity swelling and shortness of breath. Acute hypoxemic Respiratory Failure Pneumonia Pulmonary Emboli, Pulmonary Infarct Chronic Anemia, iron deficiency Initially required oxygen supplementation 5 L Chest XRAY with patchy bibasilar and midlung opacities suspicious for superimposed pneumonia Chest CTA suggestive of pneumonia vs. pulmonary infarcts as well with noted bilateral areas of wedge-shaped consolidation, most pronounced within the left upper and bilateral lower lobes WBC increased and while downtrending remains persistently elevated in spite of rocephin and doxycycline treatment, not currently on steroids MRSA nares negative Previously treated with Rocephin --> Cefepime for pseudomonas coverage, doxycycline and Flagyl for anaerobic coverage. Pulmonology Consult on 09/13, appreciate recs -Transition to oral DOAC/coumadin for PE -CTA more suggestive of pulm infarct that will likely resolve over time, can cause noninfectious leukocytosis -Recommending followup CT scan w/o contrast in 8-12 weeks after discharge At discharge, patient was in room air. He had completed course of antibiotic. He was started on Coumadin and Lovenox bridge for anticoagulation Also placed on Lasix 20 mg twice daily. Acute systolic CHF (congestive heart failure) Left ventricular apical thrombus Ischemic cardiomyopathy Presented with increasing shortness of breath and lower extremity edema, noted to be hypoxemic on room air Acute systolic heart failure with history of cardiomyopathy Initially placed on milrinone drip Given IV Lasix with good diuresis Echocardiogram revealing: Left ventricular apical thrombus discovered in the setting of severe cardiomyopathy, LVEF <20%. Status post cardiac cath 09/22: Three-vessel coronary artery disease with markedly elevated left end- diastolic pressure. Diffuse coronary atherosclerosis but degree of coronary disease disproportionate to degree of systolic dysfunction At discharge, place on beta-marcial, KATELYN inhibitor's, Lovenox/Coumadin bridge, spironolactone and Lasix DM type 2 (diabetes mellitus, type 2) Hgb A1c 7.0 on 09/09 Patient self stopped metformin 1 year ago NovoLog per protocol while hospitalized At discharge, placed on Lantus 12 units. [facility]. Please note the above document was generated using voice recognition software. It may contain grammatical, syntax or spelling errors. Any formal questions or concerns about the content, text or information contained within the body of this dictation should be directly addressed to the provider for clarification Total Time Total Time Spent Total Time Spent (In Minutes): 45 Total Time Includes: Examination of the Patient, Discharge Planning, Medication Reconciliation, Communication With Other Providers and Other Discharge Plan Discharge Items Patient Disposition: Transfer Inpatient Rehab Fac Reason For Visit: PE Discharge Diagnosis: Acute hypoxemic Respiratory Failure Pneumonia Pulmonary Emboli, Pulmonary Infarct Chronic Anemia, iron deficiency Activity: Resume your previous activity Non-emergency contact: Primary Care Provider Call non-emergency contact if: you have any medication questions and your symptoms worsen Follow-up/Referrals: Pedro Pablo Gaspar MD [Primary Care Provider] - Diet: Regular Addtl Attending Provider Instructions: You were admitted to the hospital due to low oxygen level. You are diagnosed with pneumonia and blood clot in your lungs. You completed antibiotic course during the hospitalization. You are prescribed Coumadin and Lovenox for anticoagulation for pulmonary embolism and left ventricular thrombus. Please continue Coumadin and Lovenox bridge till your INR is between 2-3. Then, you can stop taking Lovenox. Check PT/INR daily until it is therapeutic. You need to follow-up with anticoagulation clinic after discharge. For type 2 diabetes mellitus, you are prescribed Lantus 12 units daily. After discharge from rehab, you can discuss with your primary care doctor about continuing Lantus or switching over to oral hypoglycemic agents. Take all the medication as prescribed below. Pending Studies at Discharge: Yes (Serum electrophoresis) Stand-Alone Forms: My [facility] Skilled Items Patient informed of condition?: Yes DNR: No Discharge Level of Care: Acute rehab Communicable Disease: No Discharge Prognosis: Stable Lines: None Urinary Catheter: No Medications and DC Order Prescriptions: New polyethylene glycol 3350 [Miralax] 17 gram Powder In Packet 17 g PO DAILY PRN (Reason: constipation) Qty: 30 0RF metoprolol succinate 50 mg Tablet Extended Release 24 Hr 50 mg PO BID Qty: 30 0RF spironolactone 25 mg Tablet 25 mg PO QAM Qty: 30 0RF magnesium oxide 400 mg (241.3 mg magnesium) Tablet 400 mg PO BID Qty: 60 0RF isosorbide dinitrate 20 mg Tablet 20 mg PO BID@0700,1200 Qty: 30 0RF lisinopril 10 mg Tablet 10 mg PO BID Qty: 30 0RF warfarin 5 mg Tablet 5 mg PO DAILY@1600 Qty: 30 0RF enoxaparin [Lovenox] 80 mg/0.8 mL Syringe 70 mg subcut Q12 Qty: 8 0RF insulin glargine [Lantus U-100 Insulin] 100 unit/mL Solution 12 unit SC DAILY Qty: 10 0RF furosemide [Lasix] 20 mg tablet 20 mg PO BID Qty: 60 0RF Continued clopidogrel [Plavix] 75 mg Tablet 75 mg PO DAILY atorvastatin 20 mg tablet 20 mg PO QAM omeprazole 40 mg capsule,delayed release(DR/EC) 40 mg PO QAM escitalopram oxalate 5 mg tablet 5 mg PO DAILY Discontinued lisinopril 30 mg tablet 30 mg PO DAILY amlodipine 5 mg tablet 5 mg PO QAM PRN (Reason: HTN) hydralazine 25 mg tablet 25 mg PO TID metoprolol succinate 25 mg tablet extended release 24 hr 12.5 mg PO DAILY Discharge Orders: Discharge Order- CHF (Routine); Ordered 09/23/23 Ordered By: Nayan Velazquez/Other Patient Handouts: Managing Type 2 Diabetes, Exercise: Why Fitness Matters, Diabetes: Meal Planning Admission Data Admit Date/Time: 09/08/23 14:38 Attending Provider: Nayan Dobson Admit Provider: Aissatou Jansen Primary Care Provider: Pedro Pablo Gaspar Other Providers: Angelito Campos; Aissatou Jansen; Ingrid Flaherty; Irving Charles; Greg Vincent; Vaibhav Burch; Steffany Mckenzie; Jefry Mccurdy; Yesenia Sorto; Darcy Cooley; Taiwo Angel; Lexi Ya; Saurabh Herrera; Kaden Decker; Kian Iglesias; Bruce Chauhan; [facility]; Jarocho Sales
== END 2023-09-23 14:13 | DRG 175 ==
LOC: ED 09:29 → EDINP 14:38 → SUATTDRO 14:38 → 2E 19:11

== ENCOUNTER 2023-10-08 12:50 | Inpatient (IN) ==
--- OUTSIDE RECORDS SUMMARY | 2023-10-08 12:56 | External Medical Summary ---
Author Name Unknown Address Unknown Organization [id number][facility] [place] [address] Laboratory Report Ordering Provider Test Date Status HERRERA GARCIA 09/30/2023 06:25:00 Final Observation Date Value Abnormality Reference (Units ) Status WBC, Total 09/30/2023 06:25:00 16.11 Above high normal 4 .00-10.80 (K/uL) Final RBC 09/30/2023 06:25:00 4.30 4.50-5.25 (M/uL) Final Hemoglobin 09/30/2023 06:25:00 11.6 Below low normal 14 .0-16.8 (g/dL) Final HCT 09/30/2023 06:25:00 35.2 Below low normal 40. 0-48.4 (%) Final MCV 09/30/2023 06:25:00 81.9 82.0-99.5 (fL) Final MCH 09/30/2023 06:25:00 27.0 27.0-34.0 (pg) Final MCHC 09/30/2023 06:25:00 33.0 32.0-36.0 (g/dL) Final RDW 09/30/2023 06:25:00 19.0 11.5-15.5 (%) Final Platelets 09/30/2023 06:25:00 367 140-400 (K /uL) Final MPV 09/30/2023 06:25:00 10.5 6.6-11.1 ( fL) Final Performing Location [facility] [address]
--- OUTSIDE RECORDS SUMMARY | 2023-10-08 12:56 | External Medical Summary | Summary of Care ---
Author Name Unknown Organization [facility] Address [address] [facility] [place] [address] Phone [phone] Care Team Providers Care Hospice Community Liaison Name Role Phone Pedro Pablo Gaspar MD Primary Care Provider [phone] Reason for Visit * Reason Onset Date Comments Home Health 10/02/2023 Encounter Details Date Type Department Care Team (Late st Contact Info) Description 10/02/2023 Telephone Family Practice [facility] [address] [place] [address] Pedro Pablo Gaspar MD [address] [place] [address] Home Health Allergies No known active allergiesdocumented as of this encounter (statuses as of 10/02/2023) Medications Medication Sig Dispensed Refills Start Date End Date Status ONETOUCH VERIO STRP 0 03/22/2020 Active Blood Glucose Monitoring Suppl (ONETOUCH VERIO) w/Device KIT 0 03/22/2020 Active Lancets (ONETOUCH DELICA PLUS [id number]) MISC 0 03/22/2020 Active traZODone HCl 100 MG Oral Tablet (DESYREL) Take 1 Tab by mouth at bedtime. 90 Tab 3 08/24/2020 Active Escitalopram Oxalate 5 MG Oral Tablet (LEXAPRO) Take 5 mg by mouth daily. 0 Active metFORMIN HCl 500 MG Oral Tablet (Glucophage)Indica tions:Type 2 diabetes mellitus with hemoglobin A1c goal of less than 7.0% ([facility]) Take 1 Tab by mouth 2 times a day. 180 Tab 1 12/16/2020 Active Additional Information Patient not taking.Informant: Patient, Reported on 09/11/2022 [employer] 2 [place] DeviceIndications: Type 2 diabetes mellitus with hemoglobin A1c goal of less than 7.0% ([facility]) Use as directed. 0 03/07/2021 Active LORazepam 0.5 MG Oral Tablet (Ativan) Take by mouth 1 Tablet 2 times a day as needed for Anxiety. 30 Tablet 0 08/29/2022 Active Neomycin-Polymyxin -HC 3.5-63047-0 Otic Solution Administer into ears 4 Drops in the morning AND 4 Drops at noon AND 4 Drops before bedtime. To affected ear, for 10 days.. 10 mL 1 08/29/2022 Active Metoprolol Succinate ER 25 MG Oral Tablet Extended Release 24 Hour (toPROL XL) TAKE 1/2 TABLET BY MOUTH IN THE MORNING 45 Tablet 1 03/29/2023 Active Lisinopril 30 MG Oral TabletIndications: Type 2 diabetes mellitus with hemoglobin A1c goal of less than 7.0% ([facility]),HTN, goal below 130/80 TAKE 1 TABLET BY MOUTH EVERY DAY IN THE MORNING 90 Tablet 1 04/25/2023 Active hydrALAZINE HCl 25 MG Oral Tablet (Apresoline) TAKE 1 TABLET BY MOUTH IN THE MORNING, AT NOON, AND BEFORE BEDTIME 90 Tablet 6 06/01/2023 Active Omeprazole 40 MG Oral Capsule Delayed Release (PriLOSEC) TAKE 1 CAPSULE BY MOUTH IN THE MORNING. 1 HOUR BEFORE THE FIRST MEAL OF THE DAY. 90 Capsule 1 06/01/2023 Active Atorvastatin Calcium 20 MG Oral Tablet (Lipitor)Indicatio ns:Dyslipidemia TAKE 1 TABLET BY MOUTH EVERY DAY IN THE MORNING 90 Tablet 0 07/30/2023 Active Clopidogrel Bisulfate 75 MG Oral Tablet (pLAVix)Indication s:Old PR (myocardial infarction),Histor y of CVA (cerebrovascular accident) TAKE 1 TABLET BY MOUTH EVERY DAY IN THE MORNING 90 Tablet 0 07/30/2023 Active amLODIPine Besylate 5 MG Oral Tablet (Norvasc) TAKE 1 TABLET BY MOUTH EVERY DAY NEEDED FOR BLOOD PRESSURE 90 Tablet 1 08/31/2023 Active documented as of this encounter (statuses as of 10/02/2023) Active Problems Problem Noted Date Diagnosed Date Stage 3a chronic kidney disease 08/29/2022 GÓMEZ (generalized anxiety disorder) 05/08/2021 Moderate episode of recurrent major depressive d isorder 05/08/2021 Complex regional pain syndrome type 1 affecting both hands 09/21/2020 History of right-sided carotid endarterectomy Gastroesophageal reflux disease without esophagi tis 07/06/2020 Type 2 diabetes mellitus with diabetic polyneuro hanna 06/05/2020 Hemiplegia, post-stroke 05/04/2020 HTN, goal below 130/80 03/26/2020 Old PR (myocardial infarction) 03/26/2020 Dyslipidemia 03/26/2020 Tobacco use disorder 03/26/2020 History of CVA (cerebrovascular accident) 2019 Type 2 diabetes mellitus wit h hemoglobin A1c goal of less than 7.0% 03/26/2020 Heart failure, systolic, due to CAD 03/26/2020 documented as of this encounter (statuses as of 10/02/2023) Resolved Problems Problem Noted Date Diagnosed Date Resolved Date ETD (Eustachian tube dysfunction), bilateral 2 08/29/2022 MEDICATION USE AGREEMENT 12/14/2020 Atherosclerotic heart diseas e of [place] coronary artery with other forms of angina pectoris 05/04/2020 08/08/2020 Adjustment disorder with depressed mood 03/26/2020 05/08/2021 Bilateral carotid artery stenosis 03/26/2020 07/06/2020 documented as of this encounter (statuses as of 10/02/2023) Immunizations Name Administration Dates Next Due COVID-19 mRNA, LNP-s, No Pre serve, 2-Dose Series (GENELINK) 04/06/2021,03/16/2021 Hepatitis B, 20+ yrs 12/14/2020,05/04/2020 Pneumococcal Polysaccharide PPV23 (Pneumovax) 10/16/2014 SEASONAL INFLUENZA, PF, 6 M & Above, IM , (FLULAVAL or FLUZONE) 08/29/2022,08/14/2021,08/27/2020 TDAP (age 10 and older)(Boostrix) 05/04/2020 documented as of this encounter Social History Tobacco Use Types Packs/Day Years Used Date Smoking Tobacco: Every Day Cigarettes 0.5 Smokeless Tobacco: Former Chew Alcohol Use Standard Drinks/Week Comments Yes 0 (1 standard drink = 0.6 oz pur e alcohol) ocasionally AUDIT-C Answer Date Recorded Frequency of Alcohol Consumption Never 05/04/2020 Average Number of Drinks Not on file 020 Frequency of Binge Drinking Not on file 04/16 PHQ-2 Answer Date Recorded PHQ Adult Total Score 22 05/08/2021 Hunger Vital Sign Answer Date Recorded Worried About Running Out of Food in the Last Ye ar Never true 06/08/2020 Ran Out of Food in the Last Year Never true 06/08/2020 Sex and Gender Information Value Date Recorded Sex Assigned at Not on file Gender Identity Not on file Sexual Orientation Not on file Job Start Date Occupation Industry Not on file Not on file Not on file documented as of this encounter Miscellaneous Notes * Telephone Encounter - Leigh Villanueva LPN - 10/02/2023 2:17 PM EST HH PT/OT/ST Eval Start of Care/Continuation Tray PT, Calling from: [facility] Patient was just discharged from [facility]. Patient requesting that PT Evaluation be done Thursday10/06/2023. Tray will be faxing the order over for signature. documented in this encounter Plan of Treatment Upcoming Encounters Date Type Department Care Team (Late st Contact Info) Description 10/12/2023 10:00 AM EST Office Visit [facility] Practice [facility] [address] [facility] [place] [address] Jemma Marquez CRNP [address] [place] [address] Health Maintenance Due Date Last Done Comments DISCUSS TOBACCO CESSATION (REFER TO SMARTSET #3291) 1970 HIV Screening 1985 CKD PHOS USE SMARTSET 59436 1988 Hepatitis C Screening 1988 Pneumococcal Vaccine: Pediatrics (0 to 5 Years) and At-Risk Patients (6 to 64 Years) (2 - PCV) 10/16/2015 10/16/2014 Cologuard 2015 Colonoscopy 2015 Colorectal Cancer Screening 2015 Fecal Occult Blood Test 2015 Sigmoidoscopy 2015 Zoster Vaccines (1 of 2) 2020 Hepatitis B (3 of 3 - 19+ 3-dose series) 02/08/2021 12/14/2020, 05/04/2020 Diabetic Foot Exam 03/26/2021 03/26/2020 Depression, Most Recent Score >= 10 (will fire each visit until score < 10) 05/09/2021 05/08/2021 B-12 02/11/2023 02/11/2022, 02/2020, 05/04/2020 HbA1c 02/27/2023 08/29/2022, 01/15, 08/14/2021, Additional history exists Diabetic Eye Exam 07/07/2023 07/07/2022, , 01/28/2021, Additional history exists COVID-19 Vaccine ( season) 2023 04/06/2021, 03/16/2021 Influenza Vaccine (FLU shot) (#1) 2023 08/29/2022, 08/14/2021, 08/27/2020, Additional history exists Albumin/Creatinine Ratio 08/29/2023 08/29/2022, 11/17 GFR 03/31/2024 10/01/2023, 09/16, 09/27/2023, Additional history exists CKD HGB USE SMARTSET 04529 10/01/202410/01, 09/30/2023, 09/29/2023, Additional history exists DTaP,Tdap,and Td Vaccines (2 - Td or Tdap) 05/04/2030 05/04/2020 GARDASIL-HPV IMMUNIZATION SERIES Aged Out No longer eligible based on patient's age to complete this topic MENINGOCOCCAL (MENACTRA/MENVEO) Aged Out No longer eligible based on patient's age to complete this topic documented as of this encounter Medical Devices Not on filedocumented as of this encounter Care Teams Hospice Community Liaison Relationship Specialty Start Date End Date Pedro Pablo Gaspar MD [address] [place] [place] [id number] PCP - General Family Medicine 10/22/20 documented as of this encounter
--- OUTSIDE RECORDS SUMMARY | 2023-10-08 12:56 | External Medical Summary ---
Author Name Unknown Address Unknown Organization [facility] [address] [place] [address] Laboratory Report Ordering Provider Test Date Status HERRERA GARCIA 09/30/2023 06:25:00 Final Observation Date Value Abnormality Reference (Units ) Status BUN 09/30/2023 06:25:00 18 6-20 (mg/dL) Final Creatinine 09/30/2023 06:25:00 1.2 0.6-1.2 (mg/dL) Final Glomerular filtration rate/1.73 sq M.predicted [Volume Rate/Area] in Serum, Plasma or Blood by Creatinine-based formula (CKD-EPI) 09/30/2023 06:25:00 73 >=60 (mL/min) Final eGFR is calculated based on the CKD-EPI 2020 equation SODIUM 09/30/2023 06:25:00 136 135-146 (m mol/L) Final Potassium 09/30/2023 06:25:00 3.9 3.5-5.1 (m mol/L) Final Cl 09/30/2023 06:25:00 97 Below low normal 98- 107 (mmol/L) Final CO2 09/30/2023 06:25:00 26 22-32 (mmo l/L) Final Anion gap 09/30/2023 06:25:00 13 7-15 (mmol /L) Final Glucose 09/30/2023 06:25:00 194 Above high normal 70 -120 (mg/dL) Final Calcium 09/30/2023 06:25:00 9.6 8.4-10.2 ( mg/dL) Final Performing Location [facility] [address] [place] [address]
--- OUTSIDE RECORDS SUMMARY | 2023-10-08 12:56 | External Medical Summary ---
Author Name Unknown Address Unknown Organization [id number] [address] Laboratory Report Ordering Provider Test Date Status HY,DEPAMPHILIS 10/01/2023 06:05:00 Final Observation Date Value Abnormality Reference (Units ) Status WBC, Total 10/01/2023 06:05:00 15.51 Above high normal 4 .00-10.80 (K/uL) Final RBC 10/01/2023 06:05:00 3.67 4.50-5.25 (M/uL) Final Hemoglobin 10/01/2023 06:05:00 9.9 Below low normal 14 .0-16.8 (g/dL) Final HCT 10/01/2023 06:05:00 30.2 Below low normal 40. 0-48.4 (%) Final MCV 10/01/2023 06:05:00 82.3 82.0-99.5 (fL) Final MCH 10/01/2023 06:05:00 27.0 27.0-34.0 (pg) Final MCHC 10/01/2023 06:05:00 32.8 32.0-36.0 (g/dL) Final RDW 10/01/2023 06:05:00 18.8 11.5-15.5 (%) Final Platelets 10/01/2023 06:05:00 271 140-400 (K /uL) Final MPV 10/01/2023 06:05:00 10.7 6.6-11.1 ( fL) Final Performing Location [facility] [place] [address] [place] [address]
--- OUTSIDE RECORDS SUMMARY | 2023-10-08 12:56 | External Medical Summary ---
Author Name Unknown Address Unknown Organization [facility] [place] [address] Laboratory Report Ordering Provider Test Date Status HY,DEPAMPHILIS 10/02/2023 05:40:00 Final Warfarin Therapy
INR: 2 .0-3.0 conventional anticoagulation
INR: 2.5- 3.5 high intensity anticoagulation Observation Date Value Abnormality Reference (Units ) Status PT 10/02/2023 05:40:00 32.6 Above high normal 11 .6-15.2 (seconds) Final INR 10/02/2023 05:40:00 3.1 Above high normal 0. 8-1.2 Final Performing Location [facility] [place] [address]
--- OUTSIDE RECORDS SUMMARY | 2023-10-08 12:56 | External Medical Summary ---
Author Name Unknown Address Unknown Organization K09:[facility] [place] [address] Laboratory Report Ordering Provider Test Date Status HY,DEPAMPHILIS 10/01/2023 06:05:00 Final Observation Date Value Abnormality Reference (Units ) Status BUN 10/01/2023 06:05:00 20 6-20 (mg/dL) Final Creatinine 10/01/2023 06:05:00 1.2 0.6-1.2 (mg/dL) Final Glomerular filtration rate/1.73 sq M.predicted [Volume Rate/Area] in Serum, Plasma or Blood by Creatinine-based formula (CKD-EPI) 10/01/2023 06:05:00 75 >=60 (mL/min) Final eGFR is calculated based on the CKD-EPI 2020 equation SODIUM 10/01/2023 06:05:00 135 135-146 (m mol/L) Final Potassium 10/01/2023 06:05:00 3.9 3.5-5.1 (m mol/L) Final Cl 10/01/2023 06:05:00 98 98-107 (mm ol/L) Final CO2 10/01/2023 06:05:00 28 22-32 (mmo l/L) Final Anion gap 10/01/2023 06:05:00 9 7-15 (mmol /L) Final Glucose 10/01/2023 06:05:00 114 70-120 (mg /dL) Final Calcium 10/01/2023 06:05:00 8.8 8.4-10.2 ( mg/dL) Final Performing Location [facility] [place] [address]
--- OUTSIDE RECORDS SUMMARY | 2023-10-08 12:56 | External Medical Summary ---
Author Name Unknown Address Unknown Organization K01:[facility] [place] [address] [place] [address] Laboratory Report Ordering Provider Test Date Status HERRERA GARCIA 09/30/2023 06:25:00 Final Observation Date Value Abnormality Reference (Units ) Status Iron 09/30/2023 06:25:00 25 Below low normal 45-176 (ug/dL) Final Iron-binding capacity 09/30/2023 06:25:00 173 Below low normal 250-425 (ug/dL) Final Transferrin Sat % 09/30/2023 06:25:00 14 Below low normal 15-55 (%) Final Performing Location [facility] [place] [address] [place] [address]
--- OUTSIDE RECORDS SUMMARY | 2023-10-08 12:56 | External Medical Summary ---
Author Name Unknown Address Unknown Organization K09:[facility] [place] [address] Laboratory Report Ordering Provider Test Date Status TESHA HOGAN 09/30/2023 06:25:00 Final Warfarin Therapy
INR: 2 .0-3.0 conventional anticoagulation
INR: 2.5- 3.5 high intensity anticoagulation Observation Date Value Abnormality Reference (Units ) Status PT 09/30/2023 06:25:00 26.7 Above high normal 11 .6-15.2 (seconds) Final INR 09/30/2023 06:25:00 2.4 Above high normal 0. 8-1.2 Final Performing Location [facility] [place] [address]
--- OUTSIDE RECORDS SUMMARY | 2023-10-08 12:57 | External Medical Summary ---
Author Name Unknown Address Unknown Organization K09:[facility] [address] [place] [address] Laboratory Report Ordering Provider Test Date Status HERRERA GARCIA 09/29/2023 06:15:00 Final Observation Date Value Abnormality Reference (Units ) Status Color of Urine by Auto 09/29/2023 06:15:00 Yellow Colorless, Light Yellow, Yellow, Dark Yellow Final Clarity, Urine 09/29/2023 06:15:00 Clear Clear Final Glucose [Mass/volume] in Urine by Automated test strip 09/29/2023 06:15:00 100 Abnormal Negative (mg/dL) Final Bilirubin.total [Presence] in Urine by Automated test strip 09/29/2023 06:15:00 Negative Negative Final Ketones [Mass/volume] in Urine by Automated test strip 09/29/2023 06:15:00 Negative Negative (mg/dL) Final Specific gravity, Urine 09/29/2023 06:15:00 1.010 1.003-1.030 Final Hemoglobin [Presence] in Urine by Automated test strip 09/29/2023 06:15:00 Negative Negative Final pH, Urine 09/29/2023 06:15:00 6.0 5.0-7.5 (Units) Final Protein [Mass/volume] in Urine by Automated test strip 09/29/2023 06:15:00 Trace Abnormal Negative (mg/dL) Final Urobilinogen [Mass/volume] in Urine by Automated test strip 09/29/2023 06:15:00 0.2 0.2, 1.0 (mg/dL) Final Nitrite [Presence] in Urine by Automated test strip 09/29/2023 06:15:00 Negative Negative Final Leukocyte esterase [Presence] in Urine by Automated test strip 09/29/2023 06:15:00 Negative Negative Final RBC, Urine 09/29/2023 06:15:00 0-2 0-2 (/HPF) Final WBC, Urine 09/29/2023 06:15:00 0-2 0-2 (/HPF) Final Bacteria [#/area] in Urine sediment by Microscopy high power field 09/29/2023 06:15:00 0-25 0-25 (/HPF) Final Performing Location [facility] [address]
--- OUTSIDE RECORDS SUMMARY | 2023-10-08 12:57 | External Medical Summary | Summary of Care ---
Author Name Unknown Organization [facility] Address [address] [place] [address] Phone [phone] Care Team Providers Care Ice Cream Vendor Name Role Phone Pedro Pablo Gaspar MD Primary Care Provider [phone] Reason for Referral * Precert (Within 10 days (routine)) - Authorized Specialty Diagnoses / Procedures Referred By Contac t Referred To Contact Radiology Diagnoses Back pain Left upper quadrant pain Procedures CT ABDOMEN WO IV/ORAL CONTRAST Saeid Mujica MD Referral ID Status Reason Start Date Expiration Date V isits Requested Visits Authorized [id number] Authorized 09/24/2023 999 999 Encounter Details Date Type Department Care Team (Late st Contact Info) Description 09/24/2023 Orders Only [facility], [place] [address] [place] [address] Ext *DO NOT REMOVE THIS DEPARTMENT* [place] [address] Requisition, External Radiology [address] [place] [address] Back pain*; Left upper quadrant pain Allergies No known active allergiesdocumented as of this encounter (statuses as of 09/24/2023) Medications Medication Sig Dispensed Refills Start Date End Date Status ONETOUCH VERIO STRP 0 03/22/2020 Active Blood Glucose Monitoring Suppl (ONETOUCH VERIO) w/Device KIT 0 03/22/2020 Active Lancets (ONETOUCH DELICA PLUS [id number]) MISC 0 03/22/2020 Active traZODone HCl 100 MG Oral Tablet (DESYREL) Take 1 Tab by mouth at bedtime. 90 Tab 3 08/24/2020 Active Escitalopram Oxalate 5 MG Oral Tablet (LEXAPRO) Take 5 mg by mouth daily. 0 Active metFORMIN HCl 500 MG Oral Tablet (Glucophage)Indica tions:Type 2 diabetes mellitus with hemoglobin A1c goal of less than 7.0% (HCC) Take 1 Tab by mouth 2 times a day. 180 Tab 1 12/16/2020 Active Additional Information Patient not taking.Informant: Patient, Reported on 09/11/2022 [employer] [address] [place] DeviceIndications: Type 2 diabetes mellitus with hemoglobin A1c goal of less than 7.0% (HCC) Use as directed. 0 03/07/2021 Active LORazepam 0.5 MG Oral Tablet (Ativan) Take by mouth 1 Tablet 2 times a day as needed for Anxiety. 30 Tablet 0 08/29/2022 Active Neomycin-Polymyxin -HC 3.5-99849-1 Otic Solution Administer into ears 4 Drops [...] hemoglobin A1c goal of less than 7.0% (HCC),HTN, goal below 130/80 TAKE 1 TABLET BY [...] Bisulfate 75 MG Oral Tablet (pLAVix)Indication s:Old [place] (myocardial infarction),Histor y of CVA (cerebrovascular accident) TAKE 1 TABLET BY MOUTH EVERY DAY IN THE MORNING 90 Tablet 0 07/30/2023 Active amLODIPine Besylate 5 MG Oral Tablet (Norvasc) TAKE 1 TABLET BY MOUTH EVERY DAY NEEDED FOR BLOOD PRESSURE 90 Tablet 1 08/31/2023 Active documented as of this encounter (statuses as of 09/24/2023) Active Problems Problem Noted Date Diagnosed Date [...] 05/04/2020 HTN, goal below 130/80 03/26/2020 Old [place] (myocardial infarction) 03/26/2020 Dyslipidemia 03/26/2020 Tobacco use disorder 03/26/2020 History of CVA (cerebrovascular accident) 2019 Type 2 diabetes mellitus wit h hemoglobin A1c goal of less than 7.0% 03/26/2020 Heart failure, systolic, due to CAD 03/26/2020 documented as of this encounter (statuses as of 09/24/2023) Resolved Problems Problem Noted Date Diagnosed Date Resolved Date ETD (Eustachian tube dysfunction), bilateral 2 08/29/2022 MEDICATION USE AGREEMENT 12/14/2020 Atherosclerotic heart diseas e of upper [place] coronary artery with other forms of angina pectoris 05/04/2020 08/08/2020 Adjustment disorder with depressed mood 03/26/2020 05/08/2021 Bilateral carotid artery stenosis 03/26/2020 07/06/2020 documented as of this encounter (statuses as of 09/24/2023) Immunizations Name Administration Dates Next Due COVID-19 mRNA, LNP-s, No Pre serve, 2-Dose Series ([employer]) 04/06/2021,03/16/2021 Hepatitis B, 20+ yrs 12/14/2020,05/04/2020 Pneumococcal [...] on file documented as of this encounter Plan of Treatment Upcoming Encounters Date Type Department Care Team (Late st Contact Info) Description 09/25/2023 7:30 AM EST Imaging Radiology [address] [address] Scheduled Orders Name Type Priority Associated Diagnoses Orde r Schedule CT ABDOMEN WO IV/ORAL CONTRAST Medical Imaging Routine Back pain Left upper quadrant pain Expected: 09/24/2023, Expires: 10/24/2024 Health Maintenance Due Date Last Done Comments DISCUSS TOBACCO CESSATION (REFER TO SMARTSET #3291) 1970 HIV Screening 1985 CKD PHOS USE SMARTSET 85065 1988 Hepatitis C Screening 1988 Pneumococcal Vaccine: [...] < 10) 05/09/2021 05/08/2021 B-12 02/11/2023 02/11/2022, 12/0 02/2020, 05/04/2020 HbA1c 02/27/2023 08/29/2022, 01/15, 08/14/2021, Additional history exists Diabetic Eye Exam 07/07/2023 07/07/2022, , 01/28/2021, Additional history exists COVID-19 Vaccine ( season) 2023 04/06/2021, 03/16/2021 Influenza Vaccine (FLU shot) (#1) 2023 08/29/2022, 08/14/2021, 08/27/2020, Additional history exists Albumin/Creatinine Ratio 08/29/2023 08/29/2022, 11/17 GFR 03/24/2024 09/24/2023, 08/16, 06/27/2021, Additional history exists CKD HGB USE SMARTSET 76691 09/24/202409/24, 08/29/2022, 08/29/2022, Additional history exists DTaP,Tdap,and Td Vaccines (2 - Td or Tdap) 05/04/2030 05/04/2020 GARDASIL-HPV IMMUNIZATION SERIES Aged Out No longer eligible based on patient's age to complete this topic MENINGOCOCCAL (MENACTRA/MENVEO) Aged Out No longer eligible based on patient's age to complete this topic documented as of this encounter Medical Devices Not on filedocumented as of this encounter Visit Diagnoses Diagnosis Back pain- Primary Backache, unspecified Left upper quadrant pain Abdominal pain, left upper quadrant documented in this encounter Care Teams Ice Cream Vendor Relationship Specialty Start Date End Date Pedro Pablo Gaspar MD [address] [place] [address] PCP - General Family Medicine 10/22/20 documented as of this encounter
--- OUTSIDE RECORDS SUMMARY | 2023-10-08 12:57 | External Medical Summary | Summary of Care ---
Author Name Unknown Organization [facility] Address [address] [place] [facility] [place] [address] Phone [phone] Care Team Providers Care Project Crew Worker Name Role Phone Pedro Pablo Gaspar MD Primary Care Provider [phone] Encounter Details Date Type Department Care Team (Late st Contact Info) Description 09/22/2023 Result Scan Unspecified Department <No scans attached> Allergies No known active allergiesdocumented as of this encounter (statuses as of 09/23/2023) Medications Medication Sig Dispensed Refills Start Date End Date Status ONETOUCH VERIO STRP 0 03/22/2020 Active Blood Glucose Monitoring Suppl (ONETOUCH VERIO) w/Device KIT 0 03/22/2020 Active Lancets (ONETOUCH DELICA PLUS [id number]) MISC 0 03/22/2020 Active traZODone HCl 100 [...] Patient not taking.Informant: Patient, Reported on 09/11/2022 Access [facility] [address] [place] DeviceIndications: Type 2 diabetes mellitus with hemoglobin A1c goal of less than 7.0% (HCC) Use as directed. 0 03/07/2021 Active LORazepam 0.5 MG Oral Tablet (Ativan) Take by mouth 1 Tablet 2 times a day as needed for Anxiety. 30 Tablet 0 08/29/2022 Active Neomycin-Polymyxin -HC 3.5-33985-1 Otic Solution Administer into ears 4 Drops [...] Bisulfate 75 MG Oral Tablet (pLAVix)Indication s:Old [place] (myocardial infarction),Histor y of CVA (cerebrovascular accident) TAKE 1 TABLET BY MOUTH EVERY DAY IN THE MORNING 90 Tablet 0 07/30/2023 Active amLODIPine Besylate 5 MG Oral Tablet (Norvasc) TAKE 1 TABLET BY MOUTH EVERY DAY NEEDED FOR BLOOD PRESSURE 90 Tablet 1 08/31/2023 Active documented as of this encounter (statuses as of 09/23/2023) Active Problems Problem Noted Date Diagnosed Date [...] 05/04/2020 HTN, goal below 130/80 03/26/2020 Old [place] (myocardial infarction) 03/26/2020 Dyslipidemia 03/26/2020 Tobacco use disorder 03/26/2020 History of CVA (cerebrovascular accident) 2019 Type 2 diabetes mellitus wit h hemoglobin A1c goal of less than 7.0% 03/26/2020 Heart failure, systolic, due to CAD 03/26/2020 documented as of this encounter (statuses as of 09/23/2023) Resolved Problems Problem Noted Date Diagnosed Date Resolved Date ETD (Eustachian tube dysfunction), bilateral 2 08/29/2022 MEDICATION USE AGREEMENT 12/14/2020 Atherosclerotic heart diseas e of [place] coronary artery with other forms of angina pectoris 05/04/2020 08/08/2020 Adjustment disorder with depressed mood 03/26/2020 05/08/2021 Bilateral carotid artery stenosis 03/26/2020 07/06/2020 documented as of this encounter (statuses as of 09/23/2023) Immunizations Name Administration Dates Next Due COVID-19 mRNA, LNP-s, No Pre serve, 2-Dose Series (Pfizer) 04/06/2021,03/16/2021 Hepatitis B, 20+ yrs 12/14/2020,05/04/2020 Pneumococcal [...] as of this encounter Plan of Treatment Health Maintenance Due Date Last Done Comments DISCUSS TOBACCO CESSATION (REFER TO SMARTSET #7221) 1970 HIV Screening 1985 CKD PHOS USE SMARTSET 26098 1988 Hepatitis C Screening 1988 Pneumococcal Vaccine: [...] < 10) 05/09/2021 05/08/2021 B-12 02/11/2023 02/11/2022, 1202/2020, 05/04/2020 GFR 02/27/2023 08/29/2022, 06/16, 06/23/2021, Additional history exists HbA1c 02/27/2023 08/29/2022, 01/15, 08/14/2021, Additional history exists Diabetic Eye Exam 07/07/2023 07/07/2022, , 01/28/2021, Additional history exists COVID-19 Vaccine ( season) 2023 04/06/2021, 03/16/2021 Influenza Vaccine (FLU shot) (#1) 2023 08/29/2022, 08/14/2021, 08/27/2020, Additional history exists Albumin/Creatinine Ratio 08/29/2023 08/29/2022, 11/17 CKD HGB USE SMARTSET 41059 08/29/202308/29, 08/29/2022, 06/27/2021, Additional history exists DTaP,Tdap,and Td Vaccines (2 - Td or Tdap) 05/04/2030 05/04/2020 GARDASIL-HPV IMMUNIZATION SERIES Aged Out No longer eligible based on patient's age to complete this topic MENINGOCOCCAL (MENACTRA/MENVEO) Aged Out No longer eligible based on patient's age to complete this topic documented as of this encounter Medical Devices Not on filedocumented as of this encounter Procedures Procedure Name Priority Date/Time Associated Diagnosis Comments CARDIAC CATH SCANNED RESULT 09/22/2023 documented in this encounter Results * CARDIAC CATH SCANNED RESULT (09/22/2023) 09/22/2023 No Physician Data Unknown CARD CATH documented in this encounter Care Teams Project Crew Worker Relationship Specialty Start Date End Date Pedro Pablo Gaspar MD [address] [place] [address] PCP - General Family Medicine 10/22/20 documented as of this encounter
--- OUTSIDE RECORDS SUMMARY | 2023-10-08 12:57 | External Medical Summary | Summary of Care ---
Author Name Unknown Organization [facility] Address [address] [facility] [place] [address] Phone [phone] Care Team Providers Care Manual Arts Therapy Teacher Name Role Phone Pedro Pablo Gaspar MD Primary Care Provider [phone] Reason for Visit * Reason Onset Date Comments Abnormal Test Results 09/28/2023 Encounter Details Date Type Department Care Team (Late st Contact Info) Description 09/28/2023 Telephone Family Practice [facility] [address] [place] [address] Pedro Pablo Gaspar MD [address] [place] [address] Abnormal Test Results Allergies No known active allergiesdocumented as of this encounter (statuses as of 09/29/2023) Medications Medication Sig Dispensed Refills Start Date End Date Status ONETOUCH VERIO STRP 0 03/22/2020 Active Blood Glucose Monitoring Suppl (ONETOUCH VERIO) w/Device KIT 0 03/22/2020 Active Lancets (ONETOUCH DELICA PLUS [id number]) MISC 0 03/22/2020 Active traZODone HCl 100 MG Oral Tablet (DESYREL) Take 1 Tab by mouth at bedtime. 90 Tab 3 08/24/2020 Active Escitalopram Oxalate 5 MG Oral Tablet (LEXAPRO) Take 5 mg by mouth daily. 0 Active metFORMIN HCl 500 MG Oral Tablet (Glucophage)Indica tions:Type 2 diabetes mellitus with hemoglobin A1c goal of less than 7.0% ([facility]) Take 1 Tab by mouth 2 times a day. 180 Tab 1 12/16/2020 Active Additional Information Patient not taking.Informant: Patient, Reported on 09/11/2022 [employer] [place] [address] [place] DeviceIndications: Type 2 diabetes mellitus with hemoglobin A1c goal of less than 7.0% ([facility]) Use as directed. 0 03/07/2021 Active LORazepam 0.5 MG Oral Tablet (Ativan) Take by mouth 1 Tablet 2 times a day as needed for Anxiety. 30 Tablet 0 08/29/2022 Active Neomycin-Polymyxin -HC 3.5-50596-7 Otic Solution Administer into ears 4 Drops [...] hemoglobin A1c goal of less than 7.0% ([facility]),HTN, goal below 130/80 TAKE 1 TABLET BY [...] Bisulfate 75 MG Oral Tablet (pLAVix)Indication s:Old [place] (myocardial infarction),Histor y of CVA (cerebrovascular accident) TAKE 1 TABLET BY MOUTH EVERY DAY IN THE MORNING 90 Tablet 0 07/30/2023 Active amLODIPine Besylate 5 MG Oral Tablet (Norvasc) TAKE 1 TABLET BY MOUTH EVERY DAY NEEDED FOR BLOOD PRESSURE 90 Tablet 1 08/31/2023 Active documented as of this encounter (statuses as of 09/29/2023) Active Problems Problem Noted Date Diagnosed Date [...] 05/04/2020 HTN, goal below 130/80 03/26/2020 Old [place] (myocardial infarction) 03/26/2020 Dyslipidemia 03/26/2020 Tobacco use disorder 03/26/2020 History of CVA (cerebrovascular accident) 2019 Type 2 diabetes mellitus wit h hemoglobin A1c goal of less than 7.0% 03/26/2020 Heart failure, systolic, due to CAD 03/26/2020 documented as of this encounter (statuses as of 09/29/2023) Resolved Problems Problem Noted Date Diagnosed Date Resolved Date ETD (Eustachian tube dysfunction), bilateral 2 08/29/2022 MEDICATION USE AGREEMENT 12/14/2020 Atherosclerotic heart diseas e of [place] coronary artery with other forms of angina pectoris 05/04/2020 08/08/2020 Adjustment disorder with depressed mood 03/26/2020 05/08/2021 Bilateral carotid artery stenosis 03/26/2020 07/06/2020 documented as of this encounter (statuses as of 09/29/2023) Immunizations Name Administration Dates Next Due COVID-19 mRNA, LNP-s, No Pre serve, 2-Dose Series ([employer]) 04/06/2021,03/16/2021 Hepatitis B, 20+ yrs 12/14/2020,05/04/2020 Pneumococcal [...] encounter Miscellaneous Notes * Telephone Encounter - Yamel Light - 09/29/2023 10:43 AM EST I talked to pt, he is still in patient at [facility], he will call when he gets d/c to schedule a hospital f/u * Telephone Encounter - Yamel Light - 09/28/2023 1:34 PM EST Phone goes right to VM and no VM set up Will try later Not my g active in over a year * Telephone Encounter - Yamel Light - 09/28/2023 8:21 AM EST Phone goes right to VM and no VM set up Will try later * Telephone Encounter - Cherrie Murphy LPN - 09/28/2023 8:09 AM EST Spoke with Camila from [facility] regarding critical finding on CT Abdomen. Dr. Collier states multiple nodules and masses at lung bases that appear to be septic emboli. Please review * Telephone Encounter - Jemma Littlejohn OSA - 09/28/2023 8:03 AM EST Reason for patient's call: Abnormal/critical findings CT Abdomen 09/25/23 Caller was transferred to Cherrie at the clinic documented in this encounter Plan of Treatment Health Maintenance Due Date Last Done Comments DISCUSS TOBACCO CESSATION (REFER TO SMARTSET #3291) 1970 HIV Screening 1985 CKD PHOS USE SMARTSET 26235 1988 Hepatitis C Screening 1988 Pneumococcal Vaccine: [...] 05/09/2021 05/08/2021 B-12 02/11/2023 02/11/2022, 1202/2020, 05/04/2020 HbA1c 02/27/2023 08/29/2022, 01/15, 08/14/2021, Additional history exists Diabetic Eye Exam 07/07/2023 07/07/2022, , 01/28/2021, Additional history exists COVID-19 Vaccine ( season) 2023 04/06/2021, 03/16/2021 Influenza Vaccine (FLU shot) (#1) 2023 08/29/2022, 08/14/2021, 08/27/2020, Additional history exists Albumin/Creatinine Ratio 08/29/2023 08/29/2022, 11/17 GFR 03/27/2024 09/27/2023, 11/0 07/2023, 08/29/2022, Additional history exists CKD HGB USE SMARTSET 39237 09/29/202409/29, 09/27/2023, 09/27/2023, Additional history exists DTaP,Tdap,and Td Vaccines (2 - Td or Tdap) 05/04/2030 05/04/2020 GARDASIL-HPV IMMUNIZATION SERIES Aged Out No longer eligible based on patient's age to complete this topic MENINGOCOCCAL (MENACTRA/MENVEO) Aged Out No longer eligible based on patient's age to complete this topic documented as of this encounter Medical Devices Not on filedocumented as of this encounter Care Teams Manual Arts Therapy Teacher Relationship Specialty Start Date End Date Pedro Pablo Gaspar MD [address] [place] [address] PCP - General Family Medicine 10/22/20 documented as of this encounter
--- OUTSIDE RECORDS SUMMARY | 2023-10-08 12:57 | External Medical Summary ---
Author Name Unknown Address Unknown Organization K0G:[facility] [address] [place] [address] Laboratory Report Ordering Provider Test Date Status HY,DEPAMPHILIS 09/27/2023 05:45:00 Final Observation Date Value Abnormality Reference (Units ) Status BUN 09/27/2023 05:45:00 14 6-20 (mg/dL) Final Creatinine 09/27/2023 05:45:00 1.2 0.6-1.2 (mg/dL) Final Glomerular filtration rate/1.73 sq M.predicted [Volume Rate/Area] in Serum, Plasma or Blood by Creatinine-based formula (CKD-EPI) 09/27/2023 05:45:00 74 >=60 (mL/min) Final eGFR is calculated based on the CKD-EPI 2020 equation SODIUM 09/27/2023 05:45:00 136 135-146 (m mol/L) Final Potassium 09/27/2023 05:45:00 4.0 3.5-5.1 (m mol/L) Final Cl 09/27/2023 05:45:00 97 Below low normal 98- 107 (mmol/L) Final CO2 09/27/2023 05:45:00 28 22-32 (mmo l/L) Final Anion gap 09/27/2023 05:45:00 11 7-15 (mmol /L) Final Glucose 09/27/2023 05:45:00 136 Above high normal 70 -120 (mg/dL) Final Albumin 09/27/2023 05:45:00 2.9 Below low normal 3.8 -5.0 (g/dL) Final AST (Aspartate aminotransferase) 09/27/2023 05:45:00 18 10-50 (U/L) Fin al Alk Phos 09/27/2023 05:45:00 95 35-130 (U/ L) Final Bilirubin, Total 09/27/2023 05:45:00 1.1 <=1 .2 (mg/dL) Final Calcium 09/27/2023 05:45:00 9.3 8.4-10.2 ( mg/dL) Final Protein 09/27/2023 05:45:00 6.4 6.0-8.3 (g /dL) Final ALT (Alanine aminotransferase) 09/27/2023 05:45:00 13 10-50 (U/L) Joni carlson Performing Location [facility] [address] [facility] [address]
--- OUTSIDE RECORDS SUMMARY | 2023-10-08 12:57 | External Medical Summary ---
Author Name Unknown Address Unknown Organization K01:[facility] - [address] [facility] [address] Laboratory Report Ordering Provider Test Date Status HY,DEPAMPHILIS 09/23/2023 18:00:00 Final Burning with urination Observation Date Value Abnormality Reference (Units ) Status Color of Urine by Auto 09/23/2023 18:00:00 Dark Yellow Colorless, Light Yellow, Yellow, Dark Yellow Final Clarity, Urine 09/23/2023 18:00:00 Clear Clear Final Glucose [Mass/volume] in Urine by Automated test strip 09/23/2023 18:00:00 Negative Negative (mg/dL) Final Bilirubin.total [Presence] in Urine by Automated test strip 09/23/2023 18:00:00 Small Abnormal Negative Final Ketones [Mass/volume] in Urine by Automated test strip 09/23/2023 18:00:00 Negative Negative (mg/dL) Final Specific gravity, Urine 09/23/2023 18:00:00 1.014 1.003-1.030 Final Hemoglobin [Presence] in Urine by Automated test strip 09/23/2023 18:00:00 Negative Negative Final pH, Urine 09/23/2023 18:00:00 7.5 5.0-7.5 (Units) Final Protein [Mass/volume] in Urine by Automated test strip 09/23/2023 18:00:00 30 Abnormal Negative (mg/dL) Final Urobilinogen [Mass/volume] in Urine by Automated test strip 09/23/2023 18:00:00 2.0 Abnormal Normal (mg/dL) Final Nitrite [Presence] in Urine by Automated test strip 09/23/2023 18:00:00 Positive Abnormal Negative Final Leukocyte esterase [Presence] in Urine by Automated test strip 09/23/2023 18:00:00 Negative Negative Final RBC, Urine 09/23/2023 18:00:00 0-2 0-2 (/HPF) Final WBC, Urine 09/23/2023 18:00:00 0-2 0-2 (/HPF) Final Bacteria [#/area] in Urine sediment by Microscopy high power field 09/23/2023 18:00:00 26-50 Abnormal 0-25 (/HPF) Final CULTURE, URINE - [facility] 09/23/2023 18:00:00 Final Quantitative urine culture t o be performed Performing Location [facility] [address] [facility] [address]
--- OUTSIDE RECORDS SUMMARY | 2023-10-08 12:57 | External Medical Summary | Summary of Care ---
Author Name Unknown Organization [facility] Address [address] [facility] [place] [address] Phone [phone] Care Team Providers Care Industrial Engineering Name Role Phone Pedro Pablo Gaspar MD Primary Care Provider [phone] [phone] Reason for Visit * Reason Onset Date Comments Appointment 09/10/2023 Encounter Details Date Type Department Care Team (Late st Contact Info) Description 09/10/2023 Telephone Gastroenterology, [facility] [address] [place] [address] Ayala Pacheco CRNP [address] [place] [address] Appointment Allergies No known active allergiesdocumented as of this encounter (statuses as of 09/14/2023) Medications Medication Sig Dispensed Refills Start Date End Date Status ONETOUCH VERIO STRP 0 03/22/2020 Active Blood Glucose Monitoring Suppl (ONETOUCH VERIO) w/Device KIT 0 03/22/2020 Active Lancets (ONETOUCH DELICA PLUS [id number]) MISC 0 03/22/2020 Active traZODone HCl 100 MG Oral Tablet (DESYREL) Take 1 Tab by mouth at bedtime. 90 Tab 3 08/24/2020 Active Escitalopram Oxalate 5 MG Oral Tablet (LEXAPRO) Take 5 mg by mouth daily. 0 Active metFORMIN HCl 500 MG Oral Tablet (Glucophage)Indica tions:Type 2 diabetes mellitus with hemoglobin A1c goal of less than 7.0% ([facility]) Take 1 Tab by mouth 2 times a day. 180 Tab 1 12/16/2020 Active Additional Information Patient not taking.Informant: Patient, Reported on 09/11/2022 [facility] [place] DeviceIndications: Type 2 diabetes mellitus with hemoglobin A1c goal of less than 7.0% ([facility]) Use as directed. 0 03/07/2021 Active LORazepam 0.5 MG Oral Tablet (Ativan) Take by mouth 1 Tablet 2 times a day as needed for Anxiety. 30 Tablet 0 08/29/2022 Active Neomycin-Polymyxin -HC 3.5-33437-6 Otic Solution Administer into ears 4 Drops [...] hemoglobin A1c goal of less than 7.0% ([facility]),HTN, goal below 130/80 TAKE 1 TABLET BY [...] Bisulfate 75 MG Oral Tablet (pLAVix)Indication s:[place] (myocardial infarction),Histor y of CVA (cerebrovascular accident) TAKE 1 TABLET BY MOUTH EVERY DAY IN THE MORNING 90 Tablet 0 07/30/2023 Active amLODIPine Besylate 5 MG Oral Tablet (Norvasc) TAKE 1 TABLET BY MOUTH EVERY DAY NEEDED FOR BLOOD PRESSURE 90 Tablet 1 08/31/2023 Active documented as of this encounter (statuses as of 09/14/2023) Active Problems Problem Noted Date Diagnosed Date [...] 05/04/2020 HTN, goal below 130/80 03/26/2020 [place] (myocardial infarction) 03/26/2020 Dyslipidemia 03/26/2020 Tobacco use disorder 03/26/2020 History of CVA (cerebrovascular accident) 2019 Type 2 diabetes mellitus wit h hemoglobin A1c goal of less than 7.0% 03/26/2020 Heart failure, systolic, due to CAD 03/26/2020 documented as of this encounter (statuses as of 09/14/2023) Resolved Problems Problem Noted Date Diagnosed Date Resolved Date ETD (Eustachian tube dysfunction), bilateral 2 08/29/2022 MEDICATION USE AGREEMENT 12/14/2020 Atherosclerotic heart diseas e of [place] coronary artery with other forms of angina pectoris 05/04/2020 08/08/2020 Adjustment disorder with depressed mood 03/26/2020 05/08/2021 Bilateral carotid artery stenosis 03/26/2020 07/06/2020 documented as of this encounter (statuses as of 09/14/2023) Immunizations Name Administration Dates Next Due COVID-19 mRNA, LNP-s, No Pre serve, 2-Dose Series ([employer]) 04/06/2021,03/16/2021 Hepatitis B, 20+ yrs 12/14/2020,05/04/2020 Pneumococcal [...] = 0.6 oz pur e alcohol) ocasionally Sex and Gender Information Value Date Recorded Sex Assigned at Not on file Gender Identity Not on file Sexual Orientation Not on file Job Start Date Occupation Industry Not on file Not on file Not on file documented as of this encounter Miscellaneous Notes * Telephone Encounter - Master W[place] OSA - 09/14/2023 1:00 PM EDT Spoke to pt, he states there is no sense in making an appt because he wont remember to come to it * Telephone Encounter - Ayala Pacheco CRNP - 09/10/2023 11:22 AM EDT Pt admitted at [facility] for CHF, PEs. He has elevated LFTs and ? Cirrhosis on imaging study. He needs f/u in GI/Hepatology clinic after discharge. May call next week to arrange appts CRISTINA Faith documented in this encounter Plan of Treatment Health Maintenance Due Date Last Done Comments DISCUSS TOBACCO CESSATION (REFER TO SMARTSET #3291) 1970 HIV Screening 1985 CKD PHOS USE SMARTSET 74770 1988 Hepatitis C Screening 1988 Pneumococcal Vaccine: [...] , 01/28/2021, Additional history exists COVID-19 Vaccine (3 2022- season) 2023 04/06/2021, 03/16/2021 Influenza Vaccine (FLU shot) (#1) 2023 08/29/2022, 08/14/2021, 08/27/2020, Additional history exists Albumin/Creatinine Ratio 08/29/2023 08/29/2022, 11/17 CKD HGB USE SMARTSET 24632 08/29/202308/29, 08/29/2022, 06/27/2021, Additional history exists DTaP,Tdap,and Td Vaccines (2 - Td or Tdap) 05/04/2030 05/04/2020 GARDASIL-HPV IMMUNIZATION SERIES Aged Out No longer eligible based on patient's age to complete this topic MENINGOCOCCAL (MENACTRA/MENVEO) Aged Out No longer eligible based on patient's age to complete this topic documented as of this encounter Medical Devices Not on filedocumented as of this encounter Care Teams Industrial Engineering Relationship Specialty Start Date End Date Pedro Pablo Gaspar MD [address] [place] [address] PCP - General Family Medicine 10/22/20 documented as of this encounter
--- OUTSIDE RECORDS SUMMARY | 2023-10-08 12:57 | External Medical Summary ---
Author Name Unknown Address Unknown Organization K09[facility] [address] [place] [address] Laboratory Report Ordering Provider Test Date Status HERRERA GARCIA 09/29/2023 06:15:00 Final Observation Date Value Abnormality Reference (Units ) Status WBC, Total 09/29/2023 06:15:00 12.79 Above high normal 4 .00-10.80 (K/uL) Final RBC 09/29/2023 06:15:00 3.98 4.50-5.25 (M/uL) Final Hemoglobin 09/29/2023 06:15:00 10.8 Below low normal 14 .0-16.8 (g/dL) Final HCT 09/29/2023 06:15:00 32.6 Below low normal 40. 0-48.4 (%) Final MCV 09/29/2023 06:15:00 81.9 82.0-99.5 (fL) Final MCH 09/29/2023 06:15:00 27.1 27.0-34.0 (pg) Final MCHC 09/29/2023 06:15:00 33.1 32.0-36.0 (g/dL) Final RDW 09/29/2023 06:15:00 18.9 11.5-15.5 (%) Final Platelets 09/29/2023 06:15:00 302 140-400 (K /uL) Final MPV 09/29/2023 06:15:00 10.7 6.6-11.1 ( fL) Final Performing Location [facility] [place] [address]
--- OUTSIDE RECORDS SUMMARY | 2023-10-08 12:57 | External Medical Summary ---
Author Name Unknown Address Unknown Organization K09:[facility] [address] [place] [address] Laboratory Report Ordering Provider Test Date Status HY,DEPAMPHILIS 09/28/2023 05:55:00 Final Warfarin Therapy
INR: 2 .0-3.0 conventional anticoagulation
INR: 2.5- 3.5 high intensity anticoagulation Observation Date Value Abnormality Reference (Units ) Status PT 09/28/2023 05:55:00 34.3 Above high normal 11 .6-15.2 (seconds) Final INR 09/28/2023 05:55:00 3.4 Above high normal 0. 8-1.2 Final Performing Location [facility] [address] [place] [address]
--- OUTSIDE RECORDS SUMMARY | 2023-10-08 12:57 | External Medical Summary | Summary of Care ---
Author Name Unknown Organization [facility] Address [address] [facility] [place] [address] Phone [phone] Care Team Providers Care Disability Specialist Name Role Phone Shira Blackman MD Primary Care Provider [phone] Reason for Visit * Reason Comments eRx-Medication Refill Encounter Details Date Type Department Care Team Description 04/24/2023 Refill Family Practice [facility] [address] [place] [id number] Shira Blackman MD [address] [place] [address] Type 2 diabetes mellitus with hemoglobin A1c goal of less than 7.0% ([facility]); HTN, goal below 130/80 Allergies No known active allergiesdocumented as of this encounter (statuses as of 04/25/2023) Medications Medication Sig Dispensed Refills Start Date End Date Status ONETOUCH VERIO STRP 0 03/22/2020 Active Blood Glucose Monitoring Suppl (ONETOUCH VERIO) w/Device KIT 0 03/22/2020 Active Lancets (ONETOUCH DELICA PLUS [id number]) MISC 0 03/22/2020 Active traZODone HCl 100 MG Oral Tablet (DESYREL) Take 1 Tab by mouth at bedtime. 90 Tab 3 08/24/2020 Active Escitalopram Oxalate 5 MG Oral Tablet (LEXAPRO) Take 5 mg by mouth daily. 0 Active metFORMIN HCl 500 MG Oral Tablet (Glucophage)Ambreen cations:Type 2 diabetes mellitus with hemoglobin A1c goal of less than 7.0% (HCC) Take 1 Tab by mouth 2 times a day. 180 Tab 1 12/16/2020 Active Additional Information Patient not taking.Informant: Patient, Reported on 09/11/2022 [employer] [address] [place] DeviceIndication s:Type 2 diabetes mellitus with hemoglobin A1c goal of less than 7.0% (HCC) Use as directed. 0 03/07/2021 Active LORazepam 0.5 MG Oral Tablet (Ativan) Take by mouth 1 Tablet 2 times a day as needed for Anxiety. 30 Tablet 0 08/29/2022 Active Neomycin-Polymyx in-HC 3.5-19989-6 Otic Solution Administer into ears 4 Drops in the morning AND 4 Drops at noon AND 4 Drops before bedtime. To affected ear, for 10 days.. 10 mL 1 08/29/2022 Active hydrALAZINE HCl 25 MG Oral Tablet (Apresoline) TAKE 1 TABLET BY MOUTH IN THE MORNING, AT NOON, AND BEFORE BEDTIME 90 Tablet 6 09/26/2022 Active Omeprazole 40 MG Oral Capsule Delayed Release (PriLOSEC) Take 1 Capsule by mouth in the morning. 1 hour before the first meal of the day. 30 Capsule 5 11/25/2022 Active amLODIPine Besylate 5 MG Oral Tablet (Norvasc) TAKE 1 TABLET BY MOUTH EVERY DAY NEEDED FOR BLOOD PRESSURE 90 Tablet 1 02/27/2023 Active Metoprolol Succinate ER 25 MG Oral Tablet Extended Release 24 Hour (toPROL XL) TAKE 1/2 TABLET BY MOUTH IN THE MORNING 45 Tablet 1 03/29/2023 Active Clopidogrel Bisulfate 75 MG Oral Tablet (pLAVix)Indicati ons:Old [place] (myocardial infarction),Hist ory of CVA (cerebrovascular accident) TAKE 1 TABLET BY MOUTH EVERY DAY IN THE MORNING 90 Tablet 0 04/23/2023 Active Atorvastatin Calcium 20 MG Oral Tablet (Lipitor)Indicat ions:Dyslipidemi a TAKE 1 TABLET BY MOUTH EVERY DAY IN THE MORNING 90 Tablet 0 04/23/2023 Active Lisinopril 30 MG Oral TabletIndication s:Type 2 diabetes mellitus with hemoglobin A1c goal of less than 7.0% (HCC),HTN, goal below 130/80 TAKE 1 TABLET BY MOUTH EVERY DAY IN THE MORNING 90 Tablet 1 04/25/2023 Active Lisinopril 30 MG Oral TabletIndication s:Type 2 diabetes mellitus with hemoglobin A1c goal of less than 7.0% (HCC),HTN, goal below 130/80 TAKE 1 TABLET BY MOUTH EVERY DAY IN THE MORNING 90 Tablet 1 09/26/2022 3 Discontinued documented as of this encounter (statuses as of 04/25/2023) Active Problems Problem Noted Date Stage 3a chronic kidney disease 08/29/20 GÓMEZ (generalized anxiety disorder) 05/08 Moderate episode of recurrent major depr essive disorder 05/08/2021 Complex regional pain syndrome type 1 af fecting both hands 09/21/2020 History of right-sided carotid endartere ctomy 07/06/2020 Gastroesophageal reflux disease without esophagitis 07/06/2020 Type 2 diabetes mellitus with diabetic p olyneuropathy 06/05/2020 Hemiplegia, post-stroke 05/04/2020 HTN, goal below 130/80 03/26/2020 Old [place] (myocardial infarction) 0 Dyslipidemia 03/26/2020 Tobacco use disorder 03/26/2020 History of CVA (cerebrovascular accident ) 03/26/2020 Type 2 diabetes mellitus with hemoglobin A1c goal of less than 7.0% 03/26/2020 Heart failure, systolic, due to CAD 03/16 documented as of this encounter (statuses as of 04/25/2023) Resolved Problems Problem Noted Date Resolved Date ETD (Eustachian tube dysfunction), bilateral 01/202208/29/2022 MEDICATION USE AGREEMENT 12/14/2020 021 Atherosclerotic heart diseas e of [place] coronary artery with other forms of angina pectoris 05/04/2020 08/08/2020 Adjustment disorder with depressed mood 03/26/20 20 05/08/2021 Bilateral carotid artery stenosis 03/26/2020 07/06/2020 documented as of this encounter (statuses as of 04/25/2023) Immunizations Name Administration Dates Next Due COVID-19 mRNA, LNP-s, No Pre serve, 2-Dose Series ([employer]) 04/06/2021,03/16/2021 Hepatitis B, 20+ yrs 12/14/2020,05/04/2020 Pneumococcal Polysaccharide PPV23 (Pneumovax) 10/16/2014 Seasonal Influenza, Quadriva lent, No Preserve, 6 Mons & Above, IM 08/29/2022,08/14/2021,08/27/2020 TDAP (age 10 and older)(Boostrix) 05/04/2020 documented as of this encounter Social History Tobacco Use Types Packs/Day Years Used Date Smoking Tobacco: Every Day Cigarettes 0.5 Smokeless Tobacco: Former Chew Alcohol Use Standard Drinks/Week Comments Yes 0 (1 standard drink = 0.6 oz pur e alcohol) ocasionally Alcohol Habits Answer Date Recorded How often do you have a drink containing alcohol ? Never 05/04/2020 How many drinks containing a lcohol do you have on a typical day when you are drinking? Not asked How often do you have six or more drinks on one occasion? Not asked Food Insecurity Answer Date Recorded Within the past 12 months, y ou worried that your food would run out before you got money to buy more. Never true 06/08/2020 Within the past 12 months, t he food you bought just didn't last and you didn't have money to get more. Never true 06/08/2020 Sex Assigned at Date Recorded Not on file Job Start Date Occupation Industry Not on file Not on file Not on file documented as of this encounter Miscellaneous Notes * Telephone Encounter - Karan Harper [facility] - 04/25/2023 9:31 AM EDTSigned Prescriptions: Disp Refills Lisinopril 30 MG Oral Tablet 90 Tab*1 Sig: TAKE 1 TABLET BY MOUTH EVERY DAY IN THE MORNINGAuthorizing Provider: SHIRA BLACKMAN User: KARAN HARPER SE documented in this encounter Plan of Treatment Health Maintenance Due Date Last Done Comments DISCUSS TOBACCO CESSATION (REFER TO SMARTSET #3291) 1970 HIV Screening 1985 CKD PHOS USE SMARTSET 41828 1988 Hepatitis C Screening 1988 Pneumococcal Vaccine: Pediatrics (0 to 5 Years) and At-Risk Patients (6 to 64 Years) (2 - PCV) 10/16/2015 10/16/2014 Cologuard 2015 Colonoscopy 2015 Colorectal Cancer Screening 2015 Fecal Occult Blood Test 2015 Sigmoidoscopy 2015 Zoster Vaccines (1 of 2) 2020 DIABETES-FOOT EXAM 03/26/2021 03/26/2020 Depression, Most Recent Score >= 10 (will fire each visit until score < 10) 05/09/2021 05/08/2021 Hepatitis B (3 of 3 - 19+ 3-dose series) 05/14/2021 12/14/2020, 05/04/2020 COVID-19 Vaccine (3 - Booster for Pfizer series) 06/01/2021 04/06/2021, 03/16/2021 Yearly B-12 02/11/2023 02/11/2022, 12/02/2020, 05/04/2020 GFR 02/27/2023 08/29/2022, 06/16, 06/23/2021, Additional history exists HbA1c 02/27/2023 08/29/2022, 01/15, 08/14/2021, Additional history exists DIABETES-EYE EXAM 07/07/2023 07/07/2022, , 01/28/2021, Additional history exists Albumin/Creatinine Ratio 08/29/2023 08/29/2022, 11/17 CKD HGB USE SMARTSET 99439 08/29/202308/29, 08/29/2022, 06/27/2021, Additional history exists DTaP,Tdap,and Td Vaccines (2 - Td or Tdap) 05/04/2030 05/04/2020 Influenza Vaccine (FLU shot) Completed , 08/14/2021, 08/27/2020, Additional history exists GARDASIL-HPV IMMUNIZATION SERIES Aged Out No longer eligible based on patient's age to complete this topic MENINGOCOCCAL (MENACTRA/MENVEO) Aged Out No longer eligible based on patient's age to complete this topic documented as of this encounter Medical Devices Not on filedocumented as of this encounter Visit Diagnoses Diagnosis Type 2 diabetes mellitus with hemoglobin A1c goal of less than 7.0% (HCC) HTN, goal below 130/80 Unspecified essential hypertension documented in this encounter Care Teams Disability Specialist Relationship Specialty Start Date End Date Shira Blackman MD [address] [place] [address] PCP - General Family Medicine 10/22/20 documented as of this encounter
--- OUTSIDE RECORDS SUMMARY | 2023-10-08 12:57 | External Medical Summary ---
Author Name Unknown Address Unknown Organization [id number][facility] [address] [place] [address] Laboratory Report Ordering Provider Test Date Status HY,DEPAMPHILIS 09/26/2023 05:55:00 Final Warfarin Therapy
INR: 2 .0-3.0 conventional anticoagulation
INR: 2.5- 3.5 high intensity anticoagulation Observation Date Value Abnormality Reference (Units ) Status PT 09/26/2023 05:55:00 36.2 Above high normal 11 .6-15.2 (seconds) Final INR 09/26/2023 05:55:00 3.6 Above high normal 0. 8-1.2 Final Performing Location [facility] [address] [place] [address]
--- OUTSIDE RECORDS SUMMARY | 2023-10-08 12:57 | External Medical Summary | Summary of Care ---
Author Name Unknown Organization [facility] Address [address] [facility] [place] [address] Phone [phone] Care Team Providers Care Power Distribution Engineer Name Role Phone Pedro Pablo Gaspar MD Primary Care Provider [phone] Reason for Visit * Reason Onset Date Comments Appointment 09/10/2023 Encounter Details Date Type Department Care Team (Late st Contact Info) Description 09/10/2023 Telephone Gastroenterology, [facility] [address] [place] [address] Ayala Pacheco CRNP [address] [place] [address] Appointment Allergies No known active allergiesdocumented as of this encounter (statuses as of 09/10/2023) Medications Medication Sig Dispensed Refills Start Date End Date Status ONETOUCH VERIO STRP 0 03/22/2020 Active Blood Glucose Monitoring Suppl (ONETOUCH VERIO) w/Device KIT 0 03/22/2020 Active Lancets (ONETOUCH DELICA PLUS [id number]) MISC 0 03/22/2020 Active traZODone HCl 100 MG Oral Tablet (DESYREL) Take 1 Tab by mouth at bedtime. 90 Tab 3 08/24/2020 Active Escitalopram Oxalate 5 MG Oral Tablet (LEXAPRO) Take 5 mg by mouth daily. 0 Active metFORMIN HCl 500 MG Oral Tablet (Glucophage)Indica tions:Type 2 diabetes mellitus with hemoglobin A1c goal of less than 7.0% ([facility]) Take 1 Tab by mouth 2 times a day. 180 Tab 1 12/16/2020 Active Additional Information Patient not taking.Informant: Patient, Reported on 09/11/2022 [employer] [address] [place] DeviceIndications: Type 2 diabetes mellitus with hemoglobin A1c goal of less than 7.0% ([facility]) Use as directed. 0 03/07/2021 Active LORazepam 0.5 MG Oral Tablet (Ativan) Take by mouth 1 Tablet 2 times a day as needed for Anxiety. 30 Tablet 0 08/29/2022 Active Neomycin-Polymyxin -HC 3.5-26537-0 Otic Solution Administer into ears 4 Drops [...] hemoglobin A1c goal of less than 7.0% ([facility]),HTN, goal below 130/80 TAKE 1 TABLET [...] Bisulfate 75 MG Oral Tablet (pLAVix)Indication s:[place] (myocardial infarction),Histor y of CVA (cerebrovascular accident) TAKE 1 TABLET BY MOUTH EVERY DAY IN THE MORNING 90 Tablet 0 07/30/2023 Active amLODIPine Besylate 5 MG Oral Tablet (Norvasc) TAKE 1 TABLET BY MOUTH EVERY DAY NEEDED FOR BLOOD PRESSURE 90 Tablet 1 08/31/2023 Active documented as of this encounter (statuses as of 09/10/2023) Active Problems Problem Noted Date Diagnosed Date [...] 05/04/2020 HTN, goal below 130/80 03/26/2020 [place] (myocardial infarction) 03/26/2020 Dyslipidemia 03/26/2020 Tobacco use disorder 03/26/2020 History of CVA (cerebrovascular accident) 2019 Type 2 diabetes mellitus wit h hemoglobin A1c goal of less than 7.0% 03/26/2020 Heart failure, systolic, due to CAD 03/26/2020 documented as of this encounter (statuses as of 09/10/2023) Resolved Problems Problem Noted Date Diagnosed Date Resolved Date ETD (Eustachian tube dysfunction), bilateral 2 08/29/2022 MEDICATION USE AGREEMENT 12/14/2020 Atherosclerotic heart diseas e of [place] coronary artery with other forms of angina pectoris 05/04/2020 08/08/2020 Adjustment disorder with depressed mood 03/26/2020 05/08/2021 Bilateral carotid artery stenosis 03/26/2020 07/06/2020 documented as of this encounter (statuses as of 09/10/2023) Immunizations Name Administration Dates Next Due COVID-19 mRNA, LNP-s, No Pre serve, 2-Dose Series ([employer]) 04/06/2021,03/16/2021 Hepatitis B, 20+ yrs 12/14/2020,05/04/2020 Pneumococcal [...] encounter Miscellaneous Notes * Telephone Encounter - CRISTINA Carney - 09/10/2023 11:22 AM EDT Pt admitted at [facility] for CHF, PEs. He has elevated LFTs and ? Cirrhosis on imaging study. He needs f/u in GI/Hepatology clinic after discharge. May call next week to arrange appts CRISTINA Faith documented in this encounter Plan of Treatment Health Maintenance Due Date Last Done Comments DISCUSS TOBACCO CESSATION (REFER TO SMARTSET #0338) 1970 HIV Screening 1985 CKD PHOS USE SMARTSET 29499 1988 Hepatitis C Screening 1988 Pneumococcal Vaccine: [...] 05/08/2021 B-12 02/11/2023 02/11/2022, 12/0 02/2020, 05/04/2020 GFR 02/27/2023 08/29/2022, 06/16, 06/23/2021, Additional history exists HbA1c 02/27/2023 08/29/2022, 01/15, 08/14/2021, Additional history exists DIABETES-EYE EXAM 07/07/2023 07/07/2022, , 01/28/2021, Additional history exists COVID-19 Vaccine (3 season) 2023 04/06/2021, 03/16/2021 Influenza Vaccine (FLU shot) (#1) 2023 08/29/2022, 08/14/2021, 08/27/2020, Additional history exists Albumin/Creatinine Ratio 08/29/2023 08/29/2022, 11/17 CKD HGB USE SMARTSET 54565 08/29/202308/29, 08/29/2022, 06/27/2021, Additional history exists DTaP,Tdap,and Td Vaccines (2 - Td or Tdap) 05/04/2030 05/04/2020 GARDASIL-HPV IMMUNIZATION SERIES Aged Out No longer eligible based on patient's age to complete this topic MENINGOCOCCAL (MENACTRA/MENVEO) Aged Out No longer eligible based on patient's age to complete this topic documented as of this encounter Medical Devices Not on filedocumented as of this encounter Care Teams Power Distribution Engineer Relationship Specialty Start Date End Date Pedro Pablo Gaspar MD [address] [place] [place] [address] PCP - General Family Medicine 10/22/20 documented as of this encounter
--- OUTSIDE RECORDS SUMMARY | 2023-10-08 12:57 | External Medical Summary ---
Author Name Unknown Address Unknown Organization K0G:[facility] [address] [place] [address] Laboratory Report Ordering Provider Test Date Status HY,DEPAMPHILIS 09/27/2023 05:45:00 Final Observation Date Value Abnormality Reference (Units ) Status SYNC LEUKOCYTES IN BLOOD BY AUTOMATED COUNT 09/27/2023 05:45:00 15.93 Above high normal 4.00-10.80 (K/uL) Final Segs 09/27/2023 05:45:00 81.1 Above high normal 40.0-75.0 (%) Final Lymphs % 09/27/2023 05:45:00 7.7 Below low normal 18.0-42.0 (%) Final Monos 09/27/2023 05:45:00 10.9 1.0-11.0 (%) Final Eosinophils 09/27/2023 05:45:00 0.2 0.0-6.0 (%) Final Basos 09/27/2023 05:45:00 0.1 0.0-2.0 (%) Final Absolute Segs 09/27/2023 05:45:00 12.93 Above high normal 1.80-7.70 (K/uL) Final Lymphs, absolute 09/27/2023 05:45:00 1.23 1.00-4.80 (K/ul) Final Monos, Abs 09/27/2023 05:45:00 1.73 Above high normal 0.00-1.10 (K/uL) Final Eos, Abs 09/27/2023 05:45:00 0.03 0.00-0.70 (K/uL) Final Basos, Abs 09/27/2023 05:45:00 0.01 0.00-0.20 (K/uL) Final Performing Location [facility] [address] [place] [address]
--- OUTSIDE RECORDS SUMMARY | 2023-10-08 12:57 | External Medical Summary | Summary of Care ---
Author Name Unknown Organization [facility] Address [address] [facility] [place] [address] Phone [phone] Care Team Providers Care Horse Doctor Name Role Phone Pedro Pablo Gaspar MD Primary Care Provider [phone] [phone] Encounter Details Date Type Department Care Team Description 05/04/2023 Telephone Family Practice [facility] [address] [facility] ([place], [place]) [place] [address] Pedro Pablo Gaspar MD [address] [facility] [place] [address] Allergies No known active allergiesdocumented as of this encounter (statuses as of 05/04/2023) Medications Medication Sig Dispensed Refills Start Date End Date Status ONETOUCH VERIO STRP 0 03/22/2020 Active Blood Glucose Monitoring Suppl (ONETOUCH VERIO) w/Device KIT 0 03/22/2020 Active Lancets (ONETOUCH DELICA PLUS [id number]) MISC 0 03/22/2020 Active traZODone HCl 100 [...] Patient not taking.Informant: Patient, Reported on 09/11/2022 [place] Yulissa [address] [place] DeviceIndications: Type 2 diabetes mellitus with hemoglobin A1c goal of less than 7.0% ([facility]) Use as directed. 0 03/07/2021 Active LORazepam 0.5 MG Oral Tablet (Ativan) Take by mouth 1 Tablet 2 times a day as needed for Anxiety. 30 Tablet 0 08/29/2022 Active Neomycin-Polymyxin -HC 3.5-31230-8 Otic Solution Administer into ears 4 Drops [...] Bisulfate 75 MG Oral Tablet (pLAVix)Indication s:Old [place] (myocardial infarction),Histor y of CVA (cerebrovascular accident) TAKE 1 TABLET BY MOUTH EVERY DAY IN THE MORNING 90 Tablet 0 04/23/2023 Active Atorvastatin Calcium 20 MG Oral Tablet (Lipitor)Indicatio ns:Dyslipidemia TAKE 1 TABLET BY MOUTH EVERY DAY IN THE MORNING 90 Tablet 0 04/23/2023 Active Lisinopril 30 MG Oral TabletIndications: Type 2 diabetes mellitus with hemoglobin A1c goal of less than 7.0% ([facility]),HTN, goal below 130/80 TAKE 1 TABLET BY MOUTH EVERY DAY IN THE MORNING 90 Tablet 1 04/25/2023 Active documented as of this encounter (statuses as of 05/04/2023) Active Problems Problem Noted Date Stage 3a chronic kidney disease 08/29/20 22 GÓMEZ (generalized anxiety disorder) 05/08 Moderate episode of recurrent major depr essive disorder 05/08/2021 Complex regional pain syndrome type 1 af fecting both hands 09/21/2020 History of right-sided carotid endartere ctomy 07/06/2020 Gastroesophageal reflux disease without esophagitis 07/06/2020 Type 2 diabetes mellitus with diabetic p olyneuropathy 06/05/2020 Hemiplegia, post-stroke 05/04/2020 HTN, goal below 130/80 03/26/2020 Old [place] (myocardial infarction) 0 Dyslipidemia 03/26/2020 Tobacco use disorder 03/26/2020 History of CVA (cerebrovascular accident ) 03/26/2020 Type 2 diabetes mellitus with hemoglobin A1c goal of less than 7.0% 03/26/2020 Heart failure, systolic, due to CAD 03/16 documented as of this encounter (statuses as of 05/04/2023) Resolved Problems Problem Noted Date Resolved Date ETD (Eustachian tube dysfunction), bilateral 01/202208/29/2022 MEDICATION USE AGREEMENT 12/14/2020 021 Atherosclerotic heart diseas e of [place] coronary artery with other forms of angina pectoris 05/04/2020 08/08/2020 Adjustment disorder with depressed mood 03/26/20 20 05/08/2021 Bilateral carotid artery stenosis 03/26/2020 07/06/2020 documented as of this encounter (statuses as of 05/04/2023) Immunizations Name Administration Dates Next Due COVID-19 mRNA, LNP-s, No Pre serve, 2-Dose Series ([employer]) 04/06/2021,03/16/2021 Hepatitis B, 20+ yrs 12/14/2020,05/04/2020 Pneumococcal [...] encounter Miscellaneous Notes * Telephone Encounter - Hilary Cunningham LPN - 05/04/2023 12:01 PM EDT Received form for [facility] waiver program, documented in this encounter Plan of Treatment Health Maintenance Due Date Last Done Comments DISCUSS TOBACCO CESSATION (REFER TO SMARTSET #3291) 1970 HIV Screening 1985 CKD PHOS USE SMARTSET 23596 1988 Hepatitis C Screening 1988 Pneumococcal Vaccine: Pediatrics (0 to 5 Years) and At-Risk Patients (6 to 64 Years) (2 - PCV) 10/16/2015 10/16/2014 Cologuard 2015 Colonoscopy 2015 Colorectal Cancer Screening 2015 Fecal Occult Blood Test 2015 Sigmoidoscopy 2015 Zoster Vaccines (1 of 2) 2020 Hepatitis B (3 of 3 - 19+ 3-dose series) 02/08/2021 12/14/2020, 05/04/2020 DIABETES-FOOT EXAM 03/26/2021 03/26/2020 Depression, Most Recent Score >= 10 (will fire each visit until score < 10) 05/09/2021 05/08/2021 COVID-19 Vaccine (3 - Pfizer series) 06/01/2021 04/06/2021, 03/16/2021 Yearly B-12 02/11/2023 02/11/2022, 1202/2020, 05/04/2020 GFR 02/27/2023 08/29/2022, 06/16, 06/23/2021, Additional history exists HbA1c 02/27/2023 08/29/2022, 01/15, 08/14/2021, Additional history exists DIABETES-EYE EXAM 07/07/2023 07/07/2022, , 01/28/2021, Additional history exists Albumin/Creatinine Ratio 08/29/2023 08/29/2022, 11/17 CKD HGB USE SMARTSET 55476 08/29/202308/29, 08/29/2022, 06/27/2021, Additional history exists DTaP,Tdap,and [...] filedocumented as of this encounter Care Teams Horse Doctor Relationship Specialty Start Date End Date Pedro Pablo Gaspar MD [address] [place] [address] PCP - General Family Medicine 10/22/20 documented as of this encounter
--- OUTSIDE RECORDS SUMMARY | 2023-10-08 12:57 | External Medical Summary | Summary of Care ---
Author Name Unknown Organization [facility] Address [address] [place] [address] Phone [phone] Care Team Providers Care Finished Carpet Inspector Name Role Phone Pedro Pablo Gaspar MD Primary Care Provider [phone] Encounter Details Date Type Department Care Team Description 04/14/2023 Orders Only Outcomes Research Department [address] [place] [address] Flavia Esparza CHRA [employer] Research Other*[id number] Allergies No known active allergiesdocumented as of this encounter (statuses as of 04/14/2023) Medications Medication Sig Dispensed Refills Start Date End Date Status ONETOUCH VERIO STRP 0 03/22/2020 Active Blood Glucose Monitoring Suppl (ONETOUCH VERIO) w/Device KIT 0 03/22/2020 Active Lancets (ONETOUCH DELICA PLUS [id number]) MISC 0 03/22/2020 Active traZODone HCl 100 [...] Patient not taking.Informant: Patient, Reported on 09/11/2022 [email or web address] 2 [place] DeviceIndications: Type 2 diabetes mellitus with hemoglobin A1c goal of less than 7.0% (HCC) Use as directed. 0 03/07/2021 Active Clopidogrel Bisulfate 75 MG Oral Tablet (pLAVix)Indication s:Old [place] (myocardial infarction),Histor y of CVA (cerebrovascular accident) Take by mouth 1 Tablet in the morning. 90 Tablet 3 02/11/2022 Active Atorvastatin Calcium 20 MG Oral Tablet (Lipitor)Indicatio ns:Dyslipidemia Take by mouth 1 Tablet in the morning. 90 Tablet 3 02/11/2022 Active LORazepam 0.5 MG Oral Tablet (Ativan) Take by mouth 1 Tablet 2 times a day as needed for Anxiety. 30 Tablet 0 08/29/2022 Active Neomycin-Polymyxin -HC 3.5-52950-9 Otic Solution Administer into ears 4 Drops in the morning AND 4 Drops at noon AND 4 Drops before bedtime. To affected ear, for 10 days.. 10 mL 1 08/29/2022 Active hydrALAZINE HCl 25 MG Oral Tablet (Apresoline) TAKE 1 TABLET BY MOUTH IN THE MORNING, AT NOON, AND BEFORE BEDTIME 90 Tablet 6 09/26/2022 Active Lisinopril 30 MG Oral TabletIndications: Type 2 diabetes mellitus with hemoglobin A1c goal of less than 7.0% (HCC),HTN, goal below 130/80 TAKE 1 TABLET BY MOUTH EVERY DAY IN THE MORNING 90 Tablet 1 09/26/2022 Active Omeprazole 40 MG Oral Capsule [...] THE MORNING 45 Tablet 1 03/29/2023 Active documented as of this encounter (statuses as of 04/14/2023) Active Problems Problem Noted Date Stage 3a [...] 05/04/2020 HTN, goal below 130/80 03/26/2020 Old [place] (myocardial infarction) 0 Dyslipidemia 03/26/2020 Tobacco use disorder 03/26/2020 History of CVA (cerebrovascular accident ) 03/26/2020 Type 2 diabetes mellitus with hemoglobin A1c goal of less than 7.0% 03/26/2020 Heart failure, systolic, due to CAD 03/16 documented as of this encounter (statuses as of 04/14/2023) Resolved Problems Problem Noted Date Resolved Date ETD (Eustachian tube dysfunction), bilateral 01/202208/29/2022 MEDICATION USE AGREEMENT 12/14/2020 021 Atherosclerotic heart diseas e of [place] coronary artery with other forms of angina pectoris 05/04/2020 08/08/2020 Adjustment disorder with depressed mood 03/26/20 20 05/08/2021 Bilateral carotid artery stenosis 03/26/2020 07/06/2020 documented as of this encounter (statuses as of 04/14/2023) Immunizations Name Administration Dates Next Due COVID-19 mRNA, LNP-s, No Pre serve, 2-Dose Series ([employer]) 04/06/2021,03/16/2021 Hepatitis B, 20+ yrs 12/14/2020,05/04/2020 Pneumococcal [...] as of this encounter Plan of Treatment Scheduled Orders Name Type Priority Associated Diagnoses Orde r Schedule MYCODE INITIAL ADULT Lab Routine MyCode Research Other*[id number] Expected: 04/14/2023 (Approximate), Expires: 05/03/2024 Health Maintenance Due Date Last Done Comments DISCUSS TOBACCO CESSATION (REFER TO SMARTSET #3291) 1970 HIV Screening 1985 CKD PHOS USE SMARTSET 01832 1988 Hepatitis C Screening 1988 Pneumococcal Vaccine: [...] 08/29/2023 08/29/2022, 11/17 CKD HGB USE SMARTSET 16468 08/29/202308/29, 08/29/2022, 06/27/2021, Additional history exists DTaP,Tdap,and [...] as of this encounter Visit Diagnoses Diagnosis MyCode Research Other*[id number] documented in this encounter Care Teams Finished Carpet Inspector Relationship Specialty Start Date End Date Pedro Pablo Gasapr MD [address] [place] [address] PCP - General Family Medicine 10/22/20 documented as of this encounter
--- OUTSIDE RECORDS SUMMARY | 2023-10-08 12:57 | External Medical Summary ---
Author Name Unknown Address Unknown Organization K09:[facility] [address] [place] [address] Laboratory Report Ordering Provider Test Date Status HY,DEPAMPHILIS 09/24/2023 06:25:00 Final Observation Date Value Abnormality Reference (Units ) Status BUN 09/24/2023 06:25:00 9 6-20 (mg/dL) Final Creatinine 09/24/2023 06:25:00 1.0 0.6-1.2 (mg/dL) Final Glomerular filtration rate/1.73 sq M.predicted [Volume Rate/Area] in Serum, Plasma or Blood by Creatinine-based formula (CKD-EPI) 09/24/2023 06:25:00 89 >=60 (mL/min) Final eGFR is calculated based on the CKD-EPI 2020 equation SODIUM 09/24/2023 06:25:00 137 135-146 (m mol/L) Final Potassium 09/24/2023 06:25:00 4.0 3.5-5.1 (m mol/L) Final Cl 09/24/2023 06:25:00 100 98-107 (mm ol/L) Final CO2 09/24/2023 06:25:00 24 22-32 (mmo l/L) Final Anion gap 09/24/2023 06:25:00 13 7-15 (mmol /L) Final Glucose 09/24/2023 06:25:00 219 Above high normal 70 -120 (mg/dL) Final Calcium 09/24/2023 06:25:00 9.5 8.4-10.2 ( mg/dL) Final Performing Location [facility] [place] [address]
--- OUTSIDE RECORDS SUMMARY | 2023-10-08 12:57 | External Medical Summary | Summary of Care ---
Author Name Unknown Organization [facility] Address [address] [facility] [place] [address] Phone [phone] Care Team Providers Care Anesthesia Attending Name Role Phone Pedro Pablo Gaspar MD Primary Care Provider [phone] [phone] Encounter Details Date Type Department Care Team (Late st Contact Info) Description 09/17/2023 Result Scan Unspecified Department Saurabh Abreu O, DO [address] [place] [address] <No scans attached> Allergies No known active allergiesdocumented as of this encounter (statuses as of 09/22/2023) Medications Medication Sig Dispensed Refills Start Date End Date Status ONETOUCH VERIO STRP 0 03/22/2020 Active Blood Glucose Monitoring Suppl (ONETOUCH VERIO) w/Device KIT 0 03/22/2020 Active Lancets (ONETOUCH DELICA PLUS [id number]) MISC 0 03/22/2020 Active traZODone HCl 100 [...] Patient not taking.Informant: Patient, Reported on 09/11/2022 FreeStyle Yulissa 2 [place] DeviceIndications: Type 2 diabetes mellitus with hemoglobin A1c goal of less than 7.0% ([facility]) Use as directed. 0 03/07/2021 Active LORazepam 0.5 MG Oral Tablet (Ativan) Take by mouth 1 Tablet 2 times a day as needed for Anxiety. 30 Tablet 0 08/29/2022 Active Neomycin-Polymyxin -HC 3.5-08980-8 Otic Solution Administer into ears 4 Drops [...] hemoglobin A1c goal of less than 7.0% ([facility]),HTN, goal below 130/80 TAKE 1 [...] Bisulfate 75 MG Oral Tablet (pLAVix)Indication s:Old [place] (myocardial infarction),Histor y of CVA (cerebrovascular accident) TAKE 1 TABLET BY MOUTH EVERY DAY IN THE MORNING 90 Tablet 0 07/30/2023 Active amLODIPine Besylate 5 MG Oral Tablet (Norvasc) TAKE 1 TABLET BY MOUTH EVERY DAY NEEDED FOR BLOOD PRESSURE 90 Tablet 1 08/31/2023 Active documented as of this encounter (statuses as of 09/22/2023) Active Problems Problem Noted Date Diagnosed Date [...] 05/04/2020 HTN, goal below 130/80 03/26/2020 Old [place] (myocardial infarction) 03/26/2020 Dyslipidemia 03/26/2020 Tobacco use disorder 03/26/2020 History of CVA (cerebrovascular accident) 2019 Type 2 diabetes mellitus wit h hemoglobin A1c goal of less than 7.0% 03/26/2020 Heart failure, systolic, due to CAD 03/26/2020 documented as of this encounter (statuses as of 09/22/2023) Resolved Problems Problem Noted Date Diagnosed Date Resolved Date ETD (Eustachian tube dysfunction), bilateral 2 08/29/2022 MEDICATION USE AGREEMENT 12/14/2020 Atherosclerotic heart diseas e of [place] coronary artery with other forms of angina pectoris 05/04/2020 08/08/2020 Adjustment disorder with depressed mood 03/26/2020 05/08/2021 Bilateral carotid artery stenosis 03/26/2020 07/06/2020 documented as of this encounter (statuses as of 09/22/2023) Immunizations Name Administration Dates Next Due COVID-19 mRNA, LNP-s, No Pre serve, 2-Dose Series ([employer]) 04/06/2021,03/16/2021 Hepatitis B, 20+ yrs 12/14/2020,05/04/2020 Pneumococcal [...] Comments DISCUSS TOBACCO CESSATION (REFER TO SMARTSET #0461) 1970 HIV Screening 1985 CKD PHOS USE SMARTSET 73671 1988 Hepatitis C Screening 1988 Pneumococcal Vaccine: [...] 01/28/2021, Additional history exists COVID-19 Vaccine ( - season) 2023 04/06/2021, 03/16/2021 Influenza Vaccine (FLU shot) (#1) 2023 08/29/2022, 08/14/2021, 08/27/2020, Additional history exists Albumin/Creatinine Ratio 08/29/2023 08/29/2022, 11/17 CKD HGB USE SMARTSET 00544 08/29/202308/29, 08/29/2022, 06/27/2021, Additional history exists DTaP,Tdap,and [...] Procedure Name Priority Date/Time Associated Diagnosis Comments ECHOCARDIOLOGY SCANNED RESULT 09/17/2023 documented in this encounter Results * ECHOCARDIOLOGY SCANNED RESULT (09/17/2023) 09/17/2023 Saurabh Abreu DO ECHOCARDIOLOGY documented in this encounter Care Teams Anesthesia Attending Relationship Specialty Start Date End Date Pedro Pablo Gaspar MD [address] [facility] [place] [address] PCP - General Family Medicine 10/22/20 documented as of this encounter
--- OUTSIDE RECORDS SUMMARY | 2023-10-08 12:57 | External Medical Summary | Summary of Care ---
Author Name Unknown Organization [facility] Address [address] [facility] [place] [address] Phone [phone] Care Team Providers Care [place] Laboratory Assistant Name Role Phone Shira Blackman MD Primary Care Provider [phone] [phone] Reason for Visit * Reason Comments eRx-Medication Refill Encounter Details Date Type Department Care Team (Late st Contact Info) Description 04/22/2023 Refill Family Practice [facility] [address] [place] [address] Shira Blackman MD [address] [place] [address] Stage 3a chronic kidney disease (HCC)*; Old CT (myocardial infarction); History of CVA (cerebrovascular accident); Dyslipidemia; Type 2 diabetes mellitus with hemoglobin A1c goal of less than 7.0% (HCC); Encounter for long-term (current) use of other medications Allergies No known active allergiesdocumented as of this encounter (statuses as of 09/24/2023) Medications Medication Sig Dispensed Refills Start Date End Date Status ONETOUCH VERIO STRP 0 03/22/2020 Active Blood Glucose Monitoring Suppl (ONETOUCH VERIO) w/Device KIT 0 03/22/2020 Active Lancets (ONETOUCH DELICA PLUS [id number]) MISC 0 03/22/2020 Active traZODone HCl 100 [...] Patient not taking.Informant: Patient, Reported on 09/11/2022 Baby[employer] 2 [place] DeviceIndication s:Type 2 diabetes mellitus with hemoglobin A1c goal of less than 7.0% (HCC) Use as directed. 0 03/07/2021 Active LORazepam 0.5 MG Oral Tablet (Ativan) Take by mouth 1 Tablet 2 times a day as needed for Anxiety. 30 Tablet 0 08/29/2022 Active Neomycin-Polymyx in-HC 3.5-97702-3 Otic Solution Administer into ears 4 Drops [...] Bisulfate 75 MG Oral Tablet (pLAVix)Indicati ons:Old CT (myocardial infarction),Hist ory of CVA (cerebrovascular accident) Take by mouth 1 Tablet in the morning. 90 Tablet 3 02/11/2022 3 Discontinued Atorvastatin Calcium 20 MG Oral Tablet (Lipitor)Indicat ions:Dyslipidemi a Take by mouth 1 Tablet in the morning. 90 Tablet 3 02/11/2022 3 Discontinued hydrALAZINE HCl 25 MG Oral Tablet (Apresoline) TAKE 1 TABLET BY MOUTH IN THE MORNING, AT NOON, AND BEFORE BEDTIME 90 Tablet 6 09/26/2022 3 Discontinued Lisinopril 30 MG Oral TabletIndication s:Type 2 diabetes mellitus with hemoglobin A1c goal of less than 7.0% (HCC),HTN, goal below 130/80 TAKE 1 TABLET BY MOUTH EVERY DAY IN THE MORNING 90 Tablet 1 09/26/2022 3 Discontinued Omeprazole 40 MG Oral Capsule Delayed Release (PriLOSEC) Take 1 Capsule by mouth in the morning. 1 hour before the first meal of the day. 30 Capsule 5 11/25/2022 3 Discontinued amLODIPine Besylate 5 MG Oral Tablet (Norvasc) TAKE 1 TABLET BY MOUTH EVERY DAY NEEDED FOR BLOOD PRESSURE 90 Tablet 1 02/27/2023 3 Discontinued Clopidogrel Bisulfate 75 MG Oral Tablet (pLAVix)Indicati ons:Old CT (myocardial infarction),Hist ory of CVA (cerebrovascular accident) TAKE 1 TABLET BY MOUTH EVERY DAY IN THE MORNING 90 Tablet 0 04/23/2023 3 Discontinued Atorvastatin Calcium 20 MG Oral Tablet (Lipitor)Indicat ions:Dyslipidemi a TAKE 1 TABLET BY MOUTH EVERY DAY IN THE MORNING 90 Tablet 0 04/23/2023 3 Discontinued documented as of this encounter [...] 05/04/2020 HTN, goal below 130/80 03/26/[address] (myocardial infarction) 03/26/2020 Dyslipidemia 03/26/2020 Tobacco use [...] AGREEMENT 12/14/2020 Atherosclerotic heart diseas e of [place] coronary artery with other forms of angina [...] encounter Miscellaneous Notes * Telephone Encounter - Cecily Durán PHARM Tech - 09/24/2023 4:47 PM EST Received message from [facility] regarding patient needing appointment and labs. Letter was sent out to patient to advise. Thank you, Cecily Durán Fitness Professional [facility] ([facility]) (formerly Telepharmacy) [phone] 09/24/2023,4:47 PM * Telephone Encounter - Beatrice Park [facility] - 04/23/2023 10:35 AM EDT Signed Prescriptions: Disp Refills Clopidogrel Bisulfate 75 MG Oral Tablet (p*90 Tab*0 Sig: TAKE 1 TABLET BY MOUTH EVERY DAY IN THE MORNING Authorizing Provider: SHIRA BLACKMAN Ordering User: BEATRICE PARK Atorvastatin Calcium 20 MG Oral Tablet (Li*90 Tab*0 Sig: TAKE 1 TABLET BY MOUTH EVERY DAY IN THE MORNING Authorizing Provider: SHIRA BLACKMAN Ordering User: BEATRICE PARK * Telephone Encounter - Beatrice Park RPh - 04/23/2023 10:33 AM EDT Provided 90 days supply with 0 refill. Per refill protocol patient should have ROUTINE LABS on filewithin past year. Reviewed AMP report, Care Gaps/Health Maintenance, medications list, and for any routine labs typically ordered for this patient. Lab orders placed. Please contact patient to schedule office visit with his PRIMARY CARE and advise of labs ordered for blood draw.. Recommend patient to fast if able for labs. Patient may still have water and regular medications. Advise to obtain labs before requesting the next refill. Last Visit: 08/29/2022 (in office), 08/08/2020 (telemedicine) - overdue for f/u Next Visit: Visit date not found Thank you, Beatrice Park, PharmD Clinical Pharmacist [facility] ([facility]) (Formerly Telepharmacy) [phone] 04/23/2023, 10:34 AM documented in this encounter Plan of Treatment Upcoming Encounters Date Type Department Care Team (Late st Contact Info) Description 09/25/2023 7:30 AM EST Imaging Radiology [address], [place] [address] [place] [address] Scheduled Orders Name Type Priority Associated Diagnoses Orde r Schedule PHOSPHORUS Lab Routine Stage 3a chronic kidney disease (HCC) Expected: 04/23/2023, Expires: 04/23/2024 HEMOGLOBIN A1C Lab Routine Type 2 diabetes mellitus with hemoglobin A1c goal of less than 7.0% (HCC) Expected: 04/23/2023, Expires: 04/23/2024 VITAMIN B12 Lab Routine Encounter for long-term (current) use of other medications Expected: 04/23/2023, Expires: 04/23/2024 BASIC METABOLIC PANEL Lab Routine Stage 3a chronic kidney disease (HCC) Expected: 04/23/2023, Expires: 04/23/2024 LIPID PANEL WITH DIRECT LDL IF TG IS HIGH Lab Routine Dyslipidemia Expected: 04/23/2023, Expires: 04/23/2024 Health Maintenance Due Date Last Done Comments DISCUSS TOBACCO CESSATION (REFER TO SMARTSET #3291) 1970 HIV Screening 1985 CKD PHOS USE SMARTSET 57103 1988 Hepatitis C Screening 1988 Pneumococcal Vaccine: [...] 01/28/2021, Additional history exists COVID-19 Vaccine (3 24 season) 2023 04/06/2021, 03/16/2021 Influenza Vaccine (FLU shot) (#1) 2023 08/29/2022, 08/14/2021, 08/27/2020, Additional history exists Albumin/Creatinine Ratio 08/29/2023 08/29/2022, 11/17 GFR 03/24/2024 09/24/2023, 08/16, 06/27/2021, Additional history exists CKD HGB USE SMARTSET 21030 09/24/202409/24, 08/29/2022, 08/29/2022, Additional history exists DTaP,Tdap,and [...] as of this encounter Visit Diagnoses Diagnosis Stage 3a chronic kidney disease (HCC)- Primary Old CT (myocardial infarction) Old myocardial infarction History of CVA (cerebrovascular accident) Transient ischemic attack (TIA), and cerebral infarction without residual deficits Dyslipidemia Other and unspecified hyperlipidemia Type 2 diabetes mellitus with hemoglobin A1c goal of less than 7.0% (HCC) Encounter for long-term (current) use of other medications documented in this encounter Care Teams [place] Laboratory Assistant Relationship Specialty Start Date End Date Shira Blackman MD [address] [place] [address] PCP - General Family Medicine 10/22/20 documented as of this encounter
--- OUTSIDE RECORDS SUMMARY | 2023-10-08 12:57 | External Medical Summary | Summary of Care ---
Author Name Unknown Organization [facility] Address [address] [place] [address] Phone [phone] Care Team Providers Care Geothermal Installer Name Role Phone Shira Blackman MD Primary Care Provider [phone] Reason for Visit * Reason Comments eRx-Medication Refill Encounter Details Date Type Department Care Team Description 05/30/2023 Refill Family Practice [facility] [address] [place] [address] Shira Blackman MD [address] [place] [address] Encounter for long-term (current) use of medications* Allergies No known active allergiesdocumented as of this encounter (statuses as of 06/01/2023) Medications Medication Sig Dispensed Refills Start Date End Date Status ONETOUCH VERIO STRP 0 03/22/2020 Active Blood Glucose Monitoring Suppl (ONETOUCH VERIO) w/Device KIT 0 03/22/2020 Active Lancets (ONETOUCH DELICA PLUS [id number]) MISC 0 03/22/2020 Active traZODone HCl 100 MG Oral Tablet (DESYREL) Take 1 Tab by mouth at bedtime. 90 Tab 3 08/24/2020 Active Escitalopram Oxalate 5 MG Oral Tablet (LEXAPRO) Take 5 mg by mouth daily. 0 Active metFORMIN HCl 500 MG Oral Tablet (Glucophage)Ambreen cations:Type 2 diabetes mellitus with hemoglobin A1c goal of less than 7.0% ([facility]) Take 1 Tab by mouth 2 times a day. 180 Tab 1 12/16/2020 Active Additional Information Patient not taking.Informant: Patient, Reported on 09/11/2022 [employer] Yulissa 2 [place] DeviceIndication s:Type 2 diabetes mellitus with hemoglobin A1c goal of less than 7.0% ([facility]) Use as directed. 0 03/07/2021 Active LORazepam 0.5 MG Oral Tablet (Ativan) Take by mouth 1 Tablet 2 times a day as needed for Anxiety. 30 Tablet 0 08/29/2022 Active Neomycin-Polymyx in-HC 3.5-02330-1 Otic Solution Administer into ears 4 Drops in the morning AND 4 Drops at noon AND 4 Drops before bedtime. To affected ear, for 10 days.. 10 mL 1 08/29/2022 Active amLODIPine Besylate 5 MG Oral Tablet (Norvasc) TAKE 1 TABLET BY MOUTH EVERY DAY NEEDED FOR BLOOD PRESSURE 90 Tablet 1 02/27/2023 Active Metoprolol Succinate ER 25 MG Oral Tablet Extended Release 24 Hour (toPROL XL) TAKE 1/2 TABLET BY MOUTH IN THE MORNING 45 Tablet 1 03/29/2023 Active Clopidogrel Bisulfate 75 MG Oral Tablet (pLAVix)Indicati ons:Old [place] (myocardial infarction),Hist ory of CVA (cerebrovascular accident) TAKE 1 TABLET BY MOUTH EVERY DAY IN THE MORNING 90 Tablet 0 04/23/2023 Active Atorvastatin Calcium 20 MG Oral Tablet (Lipitor)Indicat ions:Dyslipidemi a TAKE 1 TABLET BY MOUTH EVERY DAY IN THE MORNING 90 Tablet 0 04/23/2023 Active Lisinopril 30 MG Oral TabletIndication s:Type 2 diabetes mellitus with hemoglobin A1c goal of less than 7.0% ([facility]),HTN, goal below 130/80 TAKE [...] THE DAY. 90 Capsule 1 06/01/2023 Active hydrALAZINE HCl 25 MG Oral Tablet (Apresoline) TAKE 1 TABLET BY MOUTH IN THE MORNING, AT NOON, AND BEFORE BEDTIME 90 Tablet 6 09/26/2022 3 Discontinued Omeprazole 40 MG Oral Capsule Delayed Release (PriLOSEC) Take 1 Capsule by mouth in the morning. 1 hour before the first meal of the day. 30 Capsule 5 11/25/2022 3 Discontinued documented as of this encounter (statuses as of 06/01/2023) Active Problems Problem Noted Date Stage 3a [...] 05/04/2020 HTN, goal below 130/80 03/26/2020 Old AR (myocardial infarction) 0 Dyslipidemia 03/26/2020 Tobacco use disorder 03/26/2020 History of CVA (cerebrovascular accident ) 03/26/2020 Type 2 diabetes mellitus with hemoglobin A1c goal of less than 7.0% 03/26/2020 Heart failure, systolic, due to CAD 03/16 documented as of this encounter (statuses as of 06/01/2023) Resolved Problems Problem Noted Date Resolved Date ETD (Eustachian tube dysfunction), bilateral 01/202208/29/2022 MEDICATION USE AGREEMENT 12/14/2020 021 Atherosclerotic heart diseas e of [place] coronary artery with other forms of angina pectoris 05/04/2020 08/08/2020 Adjustment disorder with depressed mood 03/26/20 20 05/08/2021 Bilateral carotid artery stenosis 03/26/2020 07/06/2020 documented as of this encounter (statuses as of 06/01/2023) Immunizations Name Administration Dates Next Due COVID-19 mRNA, LNP-s, No Pre serve, 2-Dose Series ([employer]) 04/06/2021,03/16/2021 Hepatitis B, 20+ yrs 12/14/2020,05/04/2020 Pneumococcal [...] encounter Miscellaneous Notes * Telephone Encounter - Shira Blackman MD - 06/01/2023 12:40 PM EDTSigned Prescriptions: Disp Refills hydrALAZINE HCl 25 MG Oral Tablet (Apresol*90 Tab*6 Sig: TAKE 1 TABLET BY MOUTH IN THE MORNING, AT NOON, AND BEFORE BEDTIME Authorizing Provider: SHIRA BLACKMAN Omeprazole 40 MG Oral Capsule Delayed Rele*90 Cap*1 Sig: TAKE 1 CAPSULE BY MOUTH IN THE MORNING. 1 HOUR BEFORE THE FIRST MEAL OF THE DAY. Authorizing Provi lily: SHIRA BLACKMAN Ordering User: ELVIRA ROBERTSON * Telephone Encounter - Elvira Robertson [facility] - 06/01/2023 12:35 PM EDTPending Prescriptions: Disp Refills hydrALAZINE HCl 25 MG Oral Tablet (Apresol*90 Tab*6 Sig: TAKE 1 TABLET BY MOUTH IN THE MORNING, AT NOON, AND BEFORE BEDTIME Signed Prescriptions: Disp Refills Omeprazole 40 MG Oral Capsule Delayed Rele*90 Cap*1 Sig: TAKE 1 CAPSULE BY MOUTH IN THE MORNING. 1 HOUR BEFORE THE FIRST MEAL OF THE DAY. Authorizing Provider: SHIRA BLACKMAN Ordering User: ELVIRA ROBERTSON * Telephone Encounter - Elvira Robertson RP - 06/01/2023 12:33 PM EDT [facility] is currently not authorized to approve refills for the pended medication(s) per refill protocol. Please approve if appropriate. Thanks, Elvira Robertson, PharmD Clinical Pharmacist [facility] Services ([facility]) (formerly [facility]). [phone] 06/01/2023, 12:33 PM * Telephone Encounter - Elvira Robertson RP - 06/01/2023 12:31 PM EDT Pending Prescriptions: Disp Refills hydrALAZINE HCl 25 MG Oral Tablet (Apreso*90 Tab*6 Sig: TAKE 1 TABLET BY MOUTH IN THE MORNING, AT NOON, AND BEFORE BEDTIME Omeprazole 40 MG Oral Capsule Delayed Rel*30 Cap*5 Sig: TAKE 1 CAPSULE BY MOUTH IN THE MORNING. 1 HOUR BEFORE THE FIRST MEAL OF THE DAY. Last Visit: 08/29/2022 (in office), 08/08/2020 (telemedicine) Next Visit: Visit date not found If no future appointments scheduled, and last appointment is greater than a year ago, please schedule patient for a follow-up appointment Last date the medication was ordered: 09/26/22 Pharmacy: [id number] [id number] [facility] Is this request for a controlled substance? No Urine Drug Screen: Results for orders placed or performed in visit on 12/14/20 PAIN MANAGEMENT DRUG PANEL, URINE W/ INTERPRETATION Result Value COMPLIANCE INTERP (NOTE) URINE DRUG SCREEN RESULT Amphetamine NEGATIVE Benzodiazepines NEGATIVE Cannabinoids NEGATIVE Cocaine Metabolite NEGATIVE HYDROCODONE NEGATIVE METHADONE METABOLITE NEGATIVE Morphine / Codeine NEGATIVE OXYCODONE REFER TO CONFIRMATION RESULT (A) COMMENT THE ABOVE SCREENING RESULTS ARE PRESUMPTIVE AND CAN ONLY BE USED FOR MEDICAL PURPOSES. CONFIRMATORY TESTING IS AVAILABLE UPON REQUEST. Cutoff Concentration URINE VALID INTERP NORMAL CREATININE IDALIA 45 Patient Phone Numbers Labs: Lab Results Component Value Date/Time CREAT 1.4 (H) 08/29/2022 11:23 AM CREAT 1.3 (H) 05/04/2020 03:11 PM POTASSIUM 4.6 08/29/2022 11:23 AM POTASSIUM 4.0 05/04/2020 03:11 PM ALT 13 05/04/2020 03:11 PM HGBA1C 6.4 (H) 08/29/2022 11:23 AM HGBA1C 5.3 12/14/2020 01:23 PM documented in this encounter Plan of Treatment Scheduled Orders Name Type Priority Associated Diagnoses Orde r Schedule MAGNESIUM Lab Routine Encounter for long-term (current) use of medications Expected: 06/08/2023 (Approximate), Expires: 06/01/2024 Health Maintenance Due Date Last Done Comments DISCUSS TOBACCO CESSATION (REFER TO SMARTSET #3291) 1970 HIV Screening 1985 CKD PHOS USE SMARTSET 17379 1988 Hepatitis C Screening 1988 Pneumococcal Vaccine: [...] (3 - Pfizer series) 06/01/2021 04/06/2021, 03/16/2021 B-12 02/11/2023 02/11/2022, 1202/2020, 05/04/2020 GFR 02/27/2023 08/29/2022, 06/16, 06/23/2021, Additional history exists HbA1c 02/27/2023 08/29/2022, 01/15, 08/14/2021, Additional history exists DIABETES-EYE EXAM 07/07/2023 07/07/2022, , 01/28/2021, Additional history exists Influenza Vaccine (FLU shot) (#1) 2023 08/29/2022, 08/14/2021, 08/27/2020, Additional history exists Albumin/Creatinine Ratio 08/29/2023 08/29/2022, 11/17 CKD HGB USE SMARTSET 81168 08/29/202308/29, 08/29/2022, 06/27/2021, Additional history exists DTaP,Tdap,and [...] as of this encounter Visit Diagnoses Diagnosis Encounter for long-term (current) use of medications- Primary Encounter for long-term (current) use of other medications documented in this encounter Care Teams Geothermal Installer Relationship Specialty Start Date End Date Shira Blackman MD [address] [place] [address] PCP - General Family Medicine 12/7/20 documented as of this encounter
--- OUTSIDE RECORDS SUMMARY | 2023-10-08 12:57 | External Medical Summary | Summary of Care ---
Author Name Unknown Organization [facility] Address [address] [place] [place] [address] Phone [phone] Care Team Providers Care Director Energy Name Role Phone Shira Blackman MD Primary Care Provider [phone] Reason for Visit * Reason Comments eRx-Medication Refill Encounter Details Date Type Department Care Team Description 08/30/[address] [facility] [address] [place] [id number] Shira Blackman MD [address] [place] [address] Allergies No known active allergiesdocumented as of this encounter (statuses as of 08/31/2023) Medications Medication Sig Dispensed Refills Start Date End Date Status ONETOUCH VERIO STRP 0 03/22/2020 Active Blood Glucose Monitoring Suppl (ONETOUCH VERIO) w/Device KIT 0 03/22/2020 Active Lancets (ONETOUCH DELICA PLUS [id number]) MISC 0 03/22/2020 Active traZODone HCl 100 [...] Patient not taking.Informant: Patient, Reported on 09/11/2022 [employer] Yulissa 2 [place] DeviceIndication s:Type 2 diabetes mellitus with hemoglobin A1c goal of less than 7.0% ([facility]) Use as directed. 0 03/07/2021 Active LORazepam 0.5 MG Oral Tablet (Ativan) Take by mouth 1 Tablet 2 times a day as needed for Anxiety. 30 Tablet 0 08/29/2022 Active Neomycin-Polymyx in-HC 3.5-59552-6 Otic Solution Administer into ears 4 Drops in the morning AND 4 Drops at noon AND 4 Drops before bedtime. To affected ear, for 10 days.. 10 mL 1 08/29/2022 Active Metoprolol Succinate ER 25 MG Oral Tablet Extended Release 24 Hour (toPROL XL) TAKE 1/2 TABLET BY MOUTH IN THE MORNING 45 Tablet 1 03/29/2023 Active Lisinopril 30 MG Oral TabletIndication s:Type [...] Bisulfate 75 MG Oral Tablet (pLAVix)Indicati ons:Old [place] (myocardial infarction),Hist ory of CVA (cerebrovascular accident) TAKE 1 TABLET BY MOUTH EVERY DAY IN THE MORNING 90 Tablet 0 07/30/2023 Active amLODIPine Besylate 5 MG Oral Tablet (Norvasc) TAKE 1 TABLET BY MOUTH EVERY DAY NEEDED FOR BLOOD PRESSURE 90 Tablet 1 08/31/2023 Active amLODIPine Besylate 5 MG Oral Tablet (Norvasc) TAKE 1 TABLET BY MOUTH EVERY DAY NEEDED FOR BLOOD PRESSURE 90 Tablet 1 02/27/2023 3 Discontinued documented as of this encounter (statuses as of 08/31/2023) Active Problems Problem Noted Date Stage 3a [...] 05/04/2020 HTN, goal below 130/80 03/26/2020 Old [place] (myocardial infarction) 0 Dyslipidemia 03/26/2020 Tobacco use disorder 03/26/2020 History of CVA (cerebrovascular accident ) 03/26/2020 Type 2 diabetes mellitus with hemoglobin A1c goal of less than 7.0% 03/26/2020 Heart failure, systolic, due to CAD 03/16 documented as of this encounter (statuses as of 08/31/2023) Resolved Problems Problem Noted Date Resolved Date ETD (Eustachian tube dysfunction), bilateral 01/202208/29/2022 MEDICATION USE AGREEMENT 12/14/2020 021 Atherosclerotic heart diseas e of [place] coronary artery with other forms of angina pectoris 05/04/2020 08/08/2020 Adjustment disorder with depressed mood 03/26/20 20 05/08/2021 Bilateral carotid artery stenosis 03/26/2020 07/06/2020 documented as of this encounter (statuses as of 08/31/2023) Immunizations Name Administration Dates Next Due COVID-19 mRNA, LNP-s, No Pre serve, 2-Dose Series ([employer]) 04/06/2021,03/16/2021 Hepatitis B, 20+ yrs 12/14/2020,05/04/2020 Pneumococcal [...] Telephone Encounter - Shira Blackman MD - 08/31/2023 2:42 PM EDTSigned Prescriptions: Disp Refills amLODIPine Besylate 5 MG Oral Tablet (Norv*90 Tab*1 Sig: TAKE 1 TABLET BY MOUTH EVERY DAY NEEDED FOR BLOOD PRESSURE Authorizing Provider: SHIRA BLACKMAN * Telephone Encounter - Titus Grijalva [facility] - 08/31/2023 12:18 PM EDTPending Prescriptions: Disp Refills amLODIPine Besylate 5 MG Oral Tablet [Phar*90 Tab*1 Sig: TAKE 1 TABLET BY MOUTH EVERY DAY NEEDED FOR BLOOD PRESSURE * Telephone Encounter - Titus Grijalva RPh - 08/31/2023 12:18 PM EDT Unable to authorize medication refills at this time. Patient did not meet protocol requirements. Patient needs current well office visit and labs. Please approve if appropriate. Thanks, Titus Grijalva, Gigi.Ph. Clinical Pharmacist [facility] [phone] [id number] 08/31/2023,12:18 PM Pending Prescriptions: Disp Refills amLODIPine Besylate 5 MG Oral Tablet [Phar*90 Tab*1 Sig: TAKE 1 TABLET BY MOUTH EVERY DAY NEEDED FOR BLOOD PRESSURE Last Visit: 08/29/2022 (in office), 08/08/2020 (telemedicine) Next Visit: Visit date not found If no future appointments scheduled, and last appointment is greater than a year ago, please schedule patient for a follow-up appointment Last date the medication was ordered: 02-27-23 Pharmacy: [id number] [id number] [facility] Is this request for a controlled substance?No Urine Drug Screen: Results for orders placed [...] 11:23 AM HGBA1C 5.3 12/14/2020 01:23 PM Electronically signed by Titus Grijalva [facility] at 08/31/2023 12:18 PM EDT documented in this encounter Plan of Treatment Health Maintenance Due Date Last Done Comments DISCUSS TOBACCO CESSATION (REFER TO SMARTSET #1786) 1970 HIV Screening 1985 CKD PHOS USE SMARTSET 39539 1988 Hepatitis C Screening 1988 Pneumococcal Vaccine: [...] 08/29/2023 08/29/2022, 11/17 CKD HGB USE SMARTSET 71728 08/29/202308/29, 08/29/2022, 06/27/2021, Additional history exists DTaP,Tdap,and Td Vaccines (2 - Td or Tdap) 05/04/2030 05/04/2020 GARDASIL-HPV IMMUNIZATION SERIES Aged Out No longer eligible based on patient's age to complete this topic MENINGOCOCCAL (MENACTRA/MENVEO) Aged Out No longer eligible based on patient's age to complete this topic documented as of this encounter Medical Devices Not on filedocumented as of this encounter Care Teams Director Energy Relationship Specialty Start Date End Date Shira Blackman MD [address] [place] [address] PCP - General Family Medicine 10/22/20 documented as of this encounter
--- OUTSIDE RECORDS SUMMARY | 2023-10-08 12:57 | External Medical Summary ---
Author Name Unknown Address Unknown Organization [id number]:[facility] [place] [address] [place] [address] Laboratory Report Ordering Provider Test Date Status HY,DEPAMPHILIS 09/25/2023 06:10:00 Final Warfarin Therapy
INR: 2 .0-3.0 conventional anticoagulation
INR: 2.5- 3.5 high intensity anticoagulation Observation Date Value Abnormality Reference (Units ) Status PT 09/25/2023 06:10:00 23.1 Above high normal 11 .6-15.2 (seconds) Final INR 09/25/2023 06:10:00 2.0 Above high normal 0. 8-1.2 Final Performing Location [facility] [place] [address] [place] [address]
--- OUTSIDE RECORDS SUMMARY | 2023-10-08 12:57 | External Medical Summary ---
Author Name Unknown Address Unknown Organization K09:[facility] [place] [address] Laboratory Report Ordering Provider Test Date Status HY,DEPAMPHILIS 09/24/2023 06:25:00 Final Warfarin Therapy
INR: 2 .0-3.0 conventional anticoagulation
INR: 2.5- 3.5 high intensity anticoagulation Observation Date Value Abnormality Reference (Units ) Status PT 09/24/2023 06:25:00 20.0 Above high normal 11 .6-15.2 (seconds) Final INR 09/24/2023 06:25:00 1.7 Above high normal 0. 8-1.2 Final Performing Location [facility] [place] [address]
--- OUTSIDE RECORDS SUMMARY | 2023-10-08 12:57 | External Medical Summary ---
Author Name Unknown Address Unknown Organization K01:[facility] - [address] [place] [address] Laboratory Report Ordering Provider Test Date Status HY,DEPAMPHILIS 09/23/2023 18:00:00 Final Burning with urination Observation Date Value Abnormality Reference (Units ) Status Bacteria identified in Specimen by Culture 09/23/2023 18:00:00 < 1,000 colonies/ml (no growth) Final Test: Culture, Urine, Quanti tative
Specimen Type: Urine
Specimen Date: 09/23/2023 6:00 PM
Result Date: 09/25/2023 10:30 AM
Result Status: Final result
Resulting Lab: [facility] [place]
[address]
[facility] [address]

CULTURE

< 1,000 colonies/ml (no growth)

null Performing Location [facility] [address] [facility] [address]
--- OUTSIDE RECORDS SUMMARY | 2023-10-08 12:57 | External Medical Summary ---
Author Name Unknown Address Unknown Organization [id number]:[facility] [place] [address] - [address] [place] [address] Laboratory Report Ordering Provider Test Date Status HY,DEPAMPHILIS 09/27/2023 05:45:00 Final Warfarin Therapy
INR: 2 .0-3.0 conventional anticoagulation
INR: 2.5- 3.5 high intensity anticoagulation Observation Date Value Abnormality Reference (Units ) Status PT 09/27/2023 05:45:00 45.3 Above high normal 11 .6-15.2 (seconds) Final INR 09/27/2023 05:45:00 4.8 Above high normal 0. 8-1.2 Final Performing Location [facility] [address] - [address] [place] [address]
--- OUTSIDE RECORDS SUMMARY | 2023-10-08 12:57 | External Medical Summary ---
Author Name Unknown Address Unknown Organization K0G:[facility] [place] [address] - [address] [place] [address] Laboratory Report Ordering Provider Test Date Status HY,DEPAMPHILIS 09/27/2023 05:45:00 Final Observation Date Value Abnormality Reference (Units ) Status Nucleated erythrocytes/100 leukocytes [Ratio] in Blood by Automated count 09/27/2023 05:45:00 Final Variant lymphocytes [Presence] in Blood by Light microscopy 09/27/2023 05:45:00 Present Abnormal None Seen Final Performing Location [facility] [place] [address] - [address] [place] [address]
--- OUTSIDE RECORDS SUMMARY | 2023-10-08 12:57 | External Medical Summary ---
Author Name Unknown Address Unknown Organization K09:[facility] [place] [address] Laboratory Report Ordering Provider Test Date Status HY,DEPAMPHILIS 09/29/2023 06:15:00 Final Warfarin Therapy
INR: 2 .0-3.0 conventional anticoagulation
INR: 2.5- 3.5 high intensity anticoagulation Observation Date Value Abnormality Reference (Units ) Status PT 09/29/2023 06:15:00 30.8 Above high normal 11 .6-15.2 (seconds) Final INR 09/29/2023 06:15:00 2.9 Above high normal 0. 8-1.2 Final Performing Location [facility] [place] [address]
--- OUTSIDE RECORDS SUMMARY | 2023-10-08 12:57 | External Medical Summary ---
Author Name Unknown Address Unknown Organization K09:[facility] [place] [address] Laboratory Report Ordering Provider Test Date Status HY,DEPAMPHILIS 09/24/2023 06:25:00 Final Observation Date Value Abnormality Reference (Units ) Status WBC, Total 09/24/2023 06:25:00 11.18 Above high normal 4 .00-10.80 (K/uL) Final RBC 09/24/2023 06:25:00 5.19 4.50-5.25 (M/uL) Final Hemoglobin 09/24/2023 06:25:00 14.1 14.0-16.8 (g/dL) Final HCT 09/24/2023 06:25:00 42.0 40.0-48.4 (%) Final MCV 09/24/2023 06:25:00 80.9 82.0-99.5 (fL) Final MCH 09/24/2023 06:25:00 27.2 27.0-34.0 (pg) Final MCHC 09/24/2023 06:25:00 33.6 32.0-36.0 (g/dL) Final RDW 09/24/2023 06:25:00 19.8 11.5-15.5 (%) Final Platelets 09/24/2023 06:25:00 367 140-400 (K /uL) Final MPV 09/24/2023 06:25:00 11.3 6.6-11.1 ( fL) Final Performing Location [facility] [place] [address]
--- OUTSIDE RECORDS SUMMARY | 2023-10-08 12:57 | External Medical Summary | Summary of Care ---
Author Name Unknown Organization [facility] Address [address] [place] [address] Phone [phone] Care Team Providers Care Field Crop Farming Supervisor Name Role Phone Pedro Pablo Gaspar MD Primary Care Provider [phone] Reason for Visit * Reason Comments Outpatient Testing Encounter Details Date Type Department Care Team (Late st Contact Info) Description 09/24/2023 10:10 AM EST Laboratory Lab Mobile Phlebotomy [facility] [address], [place] [id number] [facility] [address] [place] [address] Arrived Allergies No known active allergiesdocumented as of this encounter (statuses as of 09/24/2023) Medications Medication Sig Dispensed Refills Start Date End Date Status ONETOUCH VERIO STRP 0 03/22/2020 Active Blood Glucose Monitoring Suppl (ONETOUCH VERIO) w/Device KIT 0 03/22/2020 Active Lancets (ONETOUCH DELICA PLUS [id number]) MISC 0 03/22/2020 Active traZODone HCl 100 [...] Patient not taking.Informant: Patient, Reported on 09/11/2022 No[place] 2 [place] DeviceIndications: Type 2 diabetes mellitus with hemoglobin A1c goal of less than 7.0% ([facility]) Use as directed. 0 03/07/2021 Active LORazepam 0.5 MG Oral Tablet (Ativan) Take by mouth 1 Tablet 2 times a day as needed for Anxiety. 30 Tablet 0 08/29/2022 Active Neomycin-Polymyxin -HC 3.5-82419-2 Otic Solution Administer into ears 4 Drops [...] Bisulfate 75 MG Oral Tablet (pLAVix)Indication s:Old VA (myocardial infarction),Histor y of CVA (cerebrovascular accident) [...] 05/04/2020 HTN, goal below 130/80 03/26/2020 Old VA (myocardial infarction) 03/26/2020 Dyslipidemia 03/26/2020 Tobacco use [...] AGREEMENT 12/14/2020 Atherosclerotic heart diseas e of [place] coronary artery with other forms of angina pectoris 05/04/2020 08/08/2020 Adjustment disorder with depressed mood 03/26/2020 05/08/2021 Bilateral carotid artery stenosis 03/26/2020 07/06/2020 documented as of this encounter (statuses as of 09/24/2023) Immunizations Name Administration Dates Next Due COVID-19 mRNA, LNP-s, No Pre serve, 2-Dose Series ([employer]) 04/06/2021,03/16/2021 Hepatitis B, 20+ yrs 12/14/2020,05/04/2020 Pneumococcal [...] as of this encounter Plan of Treatment Pending Results Name Type Priority Associated Diagnoses Date /Time BASIC METABOLIC PANEL Lab Routine 07/2023 6:25 AM EST PT INR Lab Routine 09/24/2023 6:2 5 AM EST URINALYSIS, REFLEX TO CULTURE Lab Routine 09/23/2023 6:00 PM EST Health Maintenance Due Date Last Done Comments DISCUSS TOBACCO CESSATION (REFER TO SMARTSET #3291) 1970 HIV Screening 1985 CKD PHOS USE SMARTSET 54738 1988 Hepatitis C Screening 1988 Pneumococcal Vaccine: [...] 08/29/2023 08/29/2022, 11/17 CKD HGB USE SMARTSET 41535 08/29/202309/24, 08/29/2022, 08/29/2022, Additional history exists DTaP,Tdap,and Td [...] Procedure Name Priority Date/Time Associated Diagnosis Comments CBC Routine 09/24/2023 6:25 AM EST documented in this encounter Results * (ABNORMAL) CBC (09/24/2023 6:25 AM EST) WBC 11.18(H) 4.00 - 10.80 K/uL 09/24/2023 7:34 AM EST [facility]- RBC 5.19 4.50 - 5.25 M/uL 09/24/2023 7:34 AM EST [facility]- HGB 14.1 14.0 - 16.8 g/dL 09/24/2023 7:34 AM EST [facility]- HCT 42.0 40.0 - 48.4 % 09/24/2023 7:34 AM EST [facility]- MCV 80.9 82.0 - 99.5 fL 09/24/2023 7:34 AM EST [facility]- MCH 27.2 27.0 - 34.0 pg 09/24/2023 7:34 AM [facility] 56- MCHC 33.6 32.0 - 36.0 g/dL 09/24/2023 7:34 AM [facility] 56 RDW 19.8 11.5 - 15.5 % 09/24/2023 7:34 AM [facility] PLT 367 140 - 400 K/uL 09/24/2023 7:34 AM [facility] 56 MPV 11.3 6.6 - 11.1 fL 09/24/2023 7:34 AM [facility] Blood Venipuncture / Unknown 09/24/2023 6:25 AM EST 09/24/2023 7:27 AM EST Saeid Mujica MD LAB BLOOD ORDERABLES [facility] [address] [place] [address] documented in this encounter Care Teams Field Crop Farming Supervisor Relationship Specialty Start Date End Date Pedro Pablo Gaspar MD [address] [facility] [place] [address] PCP - General Family Medicine 10/22/20 documented as of this encounter
--- OUTSIDE RECORDS SUMMARY | 2023-10-08 12:57 | External Medical Summary ---
Author Name Unknown Address Unknown Organization [id number] [place] [address] Laboratory Report Ordering Provider Test Date Status HY,DEPAMPHILIS 09/27/2023 05:45:00 Final Observation Date Value Abnormality Reference (Units ) Status WBC, Total 09/27/2023 05:45:00 15.93 Above high normal 4 .00-10.80 (K/uL) Final RBC 09/27/2023 05:45:00 4.92 4.50-5.25 (M/uL) Final Hemoglobin 09/27/2023 05:45:00 13.4 Below low normal 14 .0-16.8 (g/dL) Final HCT 09/27/2023 05:45:00 39.6 Below low normal 40. 0-48.4 (%) Final MCV 09/27/2023 05:45:00 80.5 82.0-99.5 (fL) Final MCH 09/27/2023 05:45:00 27.2 27.0-34.0 (pg) Final MCHC 09/27/2023 05:45:00 33.8 32.0-36.0 (g/dL) Final RDW 09/27/2023 05:45:00 19.6 11.5-15.5 (%) Final Platelets 09/27/2023 05:45:00 334 140-400 (K /uL) Final MPV 09/27/2023 05:45:00 10.8 6.6-11.1 ( fL) Final Performing Location [facility] [place] [address]
[2023-10-08] MEDS ORDERED: SODIUM CHLORIDE 0.9% 500 ML IV ONE ×2 (12:59→13:56)
--- NOTE | 2023-10-08 13:04 | Emergency Department Note ---
Impression & Plan Lower abdominal pain, BRUNA (acute kidney injury), Acute urinary retention, Constipation, Tachycardia ED Provider Note NAME: EDNA TAYLOR AGE: 52 SEX: M : 1970 ARRIVES VIA: Ambulance INFORMANT: [Patient][ems] ED PROVIDER(S): [Samson Monterroso MD] CHIEF COMPLAINT: Abdominal pain HISTORY OF PRESENT ILLNESS: The patient is a 52-year-old male who was recently in the hospital for pneumonia, respiratory failure and PE. He is currently on Eliquis. He had started Coumadin but has been switched to Eliquis. The patient states that he had a Rushing catheter in place during his hospital stay. He states that he has had some difficulty with his urine stream since the Rushing was removed. The patient states that last night and today, he has not been able to urinate. He feels his bladder is full. He has lower abdominal pain. There has been no nausea or vomiting. No cough or cold or congestion. No fever. Of note, the patient has been dealing with constipation, he actually had to dig his stool out recently in order to have a bowel movement. PMHx/PSHx/Social Hx: See Below PHYSICAL EXAM: GENERAL: Patient is in moderate distress from pain. HEENT: No acute trauma, normocephalic atraumatic, mucous membranes moist, no nasal congestion. NECK: No stridor, no adenopathy, no meningismus, trachea is midline. LUNGS: Clear to auscultation bilaterally, no wheeze, no rhonchi, breath sounds equal. HEART: Without murmurs gallops or rubs, regular rate and rhythm. Heart tones are quite distant. ABDOMEN: Soft, the patient's bladder appears distended to the umbilicus. He is tender over the bladder. EXTREMITIES: No cyanosis, full range of motion of all the joints without pain or difficulty. There appears to be some stool dried on his hands. NEUROLOGIC: Oriented x 3, no acute motor or sensory deficits, no focal weakness. SKIN: No jaundice, no diaphoresis. Pale. DIFFERENTIAL DIAGNOSIS: Constipation, urinary retention, UTI, electrolyte imbalance, renal failure, diverticulitis or colitis, among others. EMERGENCY DEPARTMENT PROCEDURES: MEDICAL DECISION MAKING: There is a mild leukocytosis, this could be consistent with infection or just his stress and pain. The patient has a very mild anemia with a hemoglobin of 13. There is a normal platelet count. Sodium and potassium are both slightly low. There was a slight anion gap. The patient did have evidence for acute kidney injury with a creatinine of 1.62. No worrisome liver enzyme elevation. Urinalysis does not show infection. ECG showed a sinus tachycardia with some chronic change, no ST elevation. KUB shows some constipation, no obvious bowel obstruction. On exam, the patient appeared to have significant bladder distention. He was tachycardic and appeared uncomfortable. Patient had a Rushing catheter placed, he had over 1200 cc of urine drain. He now feels markedly better and his abdomen is now soft and nontender. The patient lives alone, he was just in our hospital. He has ongoing chronic issues. Today, he has electrolyte abnormalities on laboratory testing. He does have some acute kidney injury. I do not think he is safe for discharge home. The patient will require IV hydration slowly. He has a history of CHF and too much fluids too fast may be an issue for him. During the patient's ED stay, he was given 1 L of IV saline. He received 2 oral Senokot. I spoke with the patient and case management, the on-call hospitalist was consulted. Prior/Outside records/notes reviewed: Discharge summary from 09/23/2023 discussing his hospitalization for respiratory failure, PE and pneumonia. ECG per my interpretation: Indication was tachycardia. The ECG shows a sinus tachycardia with a rate of 109. LVH is present. There is an old anterior lateral infarct. There is a potential old inferior infarct. No acute ST elevation, no PVCs. The QTc is 447. Compared to an ECG from 10 September 2023, the findings for anterior lateral infarct are more apparent. Continuous Cardiac Monitoring per my interpretation: An order was placed for continuous cardiac monitoring. The monitor shows a rate of 116 with sinus tachycardia. Imaging/x-ray results per my interpretation: KUB shows some moderate constipation, no obvious bowel obstruction. Chronic Medical/Social conditions affecting care: Pulmonary embolus, coronary artery disease, currently living alone. Care/Management discussed with: Case management, the on-call hospitalist. Level of care consideration(s): After review of the information above and other included data: --I believe the patient requires escalation of care to admission DISPOSITION: Admission Past Med/Surg History Medical History CKD (chronic kidney disease), stage III Encounter for pre-operative examination Ischemic cardiomyopathy EF=45% Dyslipidemia Abnormal MRI of head MRI 06/15/20 showed MCA infarcts as well as ring enhancement right posterior lobe. Repeat MRI recommended in 3 months. Depression CAD (coronary artery disease) 2013 - NSTEMI s/p BRUCE to RCA DM type 2 (diabetes mellitus, type 2) History of cerebrovascular accident March 2020; subacute infarct noted to parietal lobe per 06/15/20 MRI Carotid stenosis, bilateral Hypertension Surgical History Hx of endarterectomy (06/28/20) Right Carotid Endarterectomy with Bovine Patch Angioplasty Dr. Arita 06/28/2020 S/P drug eluting coronary stent placement Family History Mother , age 68 from metastatic lung cancer Lung cancer Father No problems noted. 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[employer], 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 Feels Safe at Home: Yes Assistive Devices: None Allergies Allergies Allergy/AdvReac Type Severity Reaction Status Date / Time No Known Allergies Allergy Verified 09/08/23 14:20 Home Meds Home Medications Medication Instructions Recorded Confirmed clopidogrel 75 mg tablet (Plavix) 75 mg PO DAILY 06/05/21 09/08/23 atorvastatin 20 mg tablet 20 mg PO QAM 09/08/23 09/08/23 escitalopram oxalate 5 mg tablet 5 mg PO DAILY 09/08/23 09/08/23 omeprazole 40 mg capsule,delayed 40 mg PO QAM 09/08/23 09/08/23 release Previous Rx's Medication Instructions Recorded enoxaparin 80 mg/0.8 mL 70 mg (0.7 mL) subcut Q12 #8 mL 09/23/23 subcutaneous syringe (Lovenox) furosemide 20 mg tablet (Lasix) 20 mg PO BID #60 tabs 09/23/23 insulin glargine 100 unit/mL 12 unit (0.12 mL) SC DAILY #10 mL 09/23/23 subcutaneous solution (Lantus U-100 Insulin) isosorbide dinitrate 20 mg tablet 20 mg PO BID@0700,1200 #30 tabs 09/23/23 lisinopril 10 mg tablet 10 mg PO BID #30 tabs 09/23/23 magnesium oxide 400 mg (241.3 mg 400 mg PO BID #60 tabs 09/23/23 magnesium) tablet metoprolol succinate 50 mg 50 mg PO BID #30 tabs 09/23/23 tablet,extended release 24 hr polyethylene glycol 3350 17 gram 17 g PO DAILY PRN constipation #30 09/23/23 oral powder packet (Miralax) ea spironolactone 25 mg tablet 25 mg PO QAM #30 tabs 09/23/23 warfarin 5 mg tablet 5 mg PO DAILY@1600 #30 tabs 09/23/23 Results & Data (ED) Vital Signs Vital Signs - 24 hr 10/08/23 13:17 10/08/23 13:39 Temperature 36.6 C Temperature Source Oral Pulse Rate 116 H 116 H Respiratory Rate 22 Respiratory Effort / Characteristics Non-Labored Spontaneous Respiratory Depth Normal Blood Pressure 114/87 Blood Pressure Mean 96 Pulse Oximetry 100 Oxygen Delivery Method Room Air Sepsis Recent Fever Within 48 Hours No Sepsis New/Unexplained Change in Mental Status No Sepsis Action Taken by Nursing Physician Notified Home Medications Current Medication List: was personally reviewed by me Laboratory Data Attestation: I reviewed the patient's lab results. 10/08/23 13:15 10/08/23 13:15 Lab Results 10/08/23 10/08/23 Range/Units 13:15 13:24 WBC 13.49 H (4.8-10.8) K/ul RBC 4.78 (4.70-6.10) M/uL Hgb 13.0 L (14.0-18.0) g/dl Hct 39.1 L (42.0-52.0) % MCV 81.8 (80.0-100.0) fL MCH 27.2 (25.0-34.0) pg MCHC 33.2 (32.0-36.0) g/dL RDW Std Deviation 56.2 H (36.4-46.3) fL RDW Coeff of Dione 22.6 H (11.5-14.5) % Plt Count 389 (130-400) K/uL MPV 9.4 (9.4-12.4) fL Immature Gran % (Auto) 1.6 % Neut % (Auto) 62.1 % Lymph % (Auto) 30.6 % [place] % (Auto) 5.3 % Eos % (Auto) 0.2 % Baso % (Auto) 0.2 % Neut # (Auto) 8.37 H (1.40-6.50) K/uL Lymph # (Auto) 4.13 H (1.20-3.40) K/uL [place] # (Auto) 0.72 H (0.11-0.59) K/uL Eos # (Auto) 0.03 (0.00-0.50) K/uL Baso # (Auto) 0.03 (0.00-0.20) K/uL Immature Gran # (Auto) 0.21 H (0.01-0.20) K/uL Absolute Nucleated RBC 0.02 (0.00-0.12) K/uL Nucleated RBC % (auto) 0.1 % Sodium 134 L (136-145) mmol/L Potassium 3.4 L (3.5-5.1) mmol/L Chloride 99 (98-107) mmol/L Carbon Dioxide 20 L (21-32) mmol/L Anion Gap 15 H (3-11) BUN 16 (6-23) mg/dl Creatinine 1.62 H (0.6-1.4) mg/dl Est Cr Clr Drug Dosing 46.6 ml/min Est GFR ( Amer) 55.7 ml/min Est GFR (Non-Af Amer) 48.1 ml/min BUN/Creatinine Ratio 9.9 L (10-20) Glucose 99 (70-99(Fasting)) mg/dl Calcium 9.6 (8.6-10.3) mg/dl Total Bilirubin 1.2 H (0.2-1.0) mg/dl AST 21 (13-39) U/L ALT 27 (7-52) U/L Alkaline Phosphatase 96 (34-104) U/L Total Protein 8.3 (6.0-8.3) gm/dl Albumin 3.7 (3.4-5.0) gm/dl Globulin 4.6 H (2.5-4.0) gm/dl Albumin/Globulin Ratio 0.8 L (0.9-2) Urine Color Yellow Urine Appearance Clear (Clear) Urine pH 7.5 (4.5-7.5) Ur Specific [place] 1.010 (1.000-1.030) Urine Protein Trace H (Negative) Urine Glucose (UA) Negative (Negative) Urine Ketones Negative (Negative) Urine Blood Negative (Negative) Urine Nitrite Negative (Negative) Urine Bilirubin Negative (Negative) Urine Urobilinogen Negative (Negative) Ur Leukocyte Esterase Negative (Negative) Urine WBC (Auto) 1-5 (0-5) /hpf Urine RBC (Auto) 0-4 (0-4) /hpf U Hyaline Cast (Auto) 1-5 (0-5) /lpf U Epithel Cells (Auto) 0-5 (0-5) /lpf Urine Bacteria (Auto) Negative (Negative) Administered Medications Discontinued Medications Sodium Chloride (Nss) 500 mls @ 999 mls/hr IV .Q31M ONE Stop: 10/08/23 13:29 Last Admin: 10/08/23 13:31 Dose: 999 mls/hr Documented By: AL Imaging Data Radiologist's Impression: KUB X-Ray 10/08/23 12:59 XR KUB/Abdomen 1 view CLINICAL HISTORY: constipation TECHNIQUE: 1 view of the abdomen was obtained. Comparison: Comparison is made to liver ultrasound 09/09/2023 FINDINGS: Lung bases are unremarkable. The osseous structures are grossly unremarkable. The bowel gas pattern is nonobstructive. A moderate amount of stool is noted within the large bowel. IMPRESSION: Nonobstructive bowel gas pattern. ACT 112: Negative or not required by law. Electronically signed by: Bob Saunders M.D. 10/08/2023 1:41 PM Discharge Plan Visit Data Chief Complaint: Abdominal Pain ED Provider: Samson Monterroso Discharge Problem: Lower abdominal pain, BRUNA (acute kidney injury), Acute urinary retention, Constipation, Tachycardia Patient Disposition: Admitted As Inpatient Condition: Fair Forms Stand Alone Forms: My [facility] Prescriptions Prescriptions: No Action clopidogrel [Plavix] 75 mg Tablet 75 mg PO DAILY atorvastatin 20 mg tablet 20 mg PO QAM omeprazole 40 mg capsule,delayed release(DR/EC) 40 mg PO QAM escitalopram oxalate 5 mg tablet 5 mg PO DAILY polyethylene glycol 3350 [Miralax] 17 gram Powder In Packet 17 g PO DAILY PRN (Reason: constipation) Qty: 30 0RF metoprolol succinate 50 mg Tablet Extended Release 24 Hr 50 mg PO BID Qty: 30 0RF spironolactone 25 mg Tablet 25 mg PO QAM Qty: 30 0RF magnesium oxide 400 mg (241.3 mg magnesium) Tablet 400 mg PO BID Qty: 60 0RF isosorbide dinitrate 20 mg Tablet 20 mg PO BID@0700,1200 Qty: 30 0RF lisinopril 10 mg Tablet 10 mg PO BID Qty: 30 0RF warfarin 5 mg Tablet 5 mg PO DAILY@1600 Qty: 30 0RF enoxaparin [Lovenox] 80 mg/0.8 mL Syringe 70 mg subcut Q12 Qty: 8 0RF insulin glargine [Lantus U-100 Insulin] 100 unit/mL Solution 12 unit SC DAILY Qty: 10 0RF furosemide [Lasix] 20 mg tablet 20 mg PO BID Qty: 60 0RF Referrals Referrals: Pedro Pablo Gsapar MD [Primary Care Provider] - Jemma Marquez CRNP [Outside Practitioners] - 10/12/23 10:00 am (You are scheduled to see Jemma on 10/12/23 at 10:00am.) Discharge Problem: Constipation Qualifiers: Constipation type: unspecified constipation type Qualified Code(s): K59.00 - Constipation, unspecified
[2023-10-08 13:35] LABS: Appearance Urine Clear (Clear); Bacteria Urine Automated Negative (Negative); Bilirubin Urine Negative (Negative); Blood Urine Negative (Negative); Color Urine Yellow; Epithelial Cell Urine Auto 0-5 /lpf (0-5); Glucose Urine UA Negative (Negative); Ketones Urine Negative (Negative); Leukocyte Esterase Urine Negative (Negative); Nitrite Urine Negative (Negative); RBC Urine Automated 0-4 /hpf (0-4); Urobilinogen Urine Negative (Negative); pH Urine 7.5 (4.5-7.5)
[2023-10-08 13:36] LABS: Basophils # (auto) 0.03 K/uL (0.00-0.20); Basophils % (auto) 0.2 %; Eosinophils # (auto) 0.03 K/uL (0.00-0.50); Eosinophils % (auto) 0.2 %; Hematocrit (blood only) 39.1 % (42.0-52.0); Immature Granulocytes # (auto) 0.21 K/uL (0.01-0.20); Immature Granulocytes % (auto) 1.6 %; Lymphocytes # (auto) 4.13 K/uL (1.20-3.40); Lymphocytes % (auto) 30.6 %; Mean Corpuscular Hemoglobin 27.2 pg (25.0-34.0); Mean Corpuscular Hgb Conc 33.2 g/dL (32.0-36.0); Mean Corpuscular Volume 81.8 fL (80.0-100.0); Mean Platelet Volume 9.4 fL (9.4-12.4); Monocytes # (auto) 0.72 K/uL (0.11-0.59); Monocytes % (auto) 5.3 %; Neutrophils # (auto) 8.37 K/uL (1.40-6.50); Neutrophils % (auto) 62.1 %; Nucleated RBC # (auto) 0.02 K/uL (0.00-0.12); Nucleated RBC % (auto) 0.1 %; Platelet Count 389 K/uL (130-400); RDW Coefficient of Variation 22.6 % (11.5-14.5); RDW Standard Deviation 56.2 fL (36.4-46.3); Red Blood Count 4.78 M/uL (4.70-6.10); White Blood Count 13.49 K/ul (4.8-10.8)
[2023-10-08 13:41] LABS: Protein Urine Trace (Negative)
--- NOTE | 2023-10-08 13:43 | XRay Report ---
XR KUB/Abdomen 1 view CLINICAL HISTORY: constipation TECHNIQUE: 1 view of the abdomen was obtained. Comparison: Comparison is made to liver ultrasound 09/09/2023 FINDINGS: Lung bases are unremarkable. The osseous structures are grossly unremarkable. The bowel gas pattern i s nonobstructive. A moderate amount of stool is noted within the large bowel. IMPRESSION: Nonobstructive bowel gas pattern. ACT 112: Negative or not required by law. Electronically signed by: Bob Saunders M.D. 10/08/2023 1:41 PM
[2023-10-08 13:54] LABS: Albumin Globulin Ratio 0.8 (0.9-2); Albumin Level 3.7 gm/dl (3.4-5.0); BUN Creatinine Ratio 9.9 (10-20); Bilirubin,Total 1.2 mg/dl (0.2-1.0); Calcium 9.6 mg/dl (8.6-10.3); Creatinine Clr Calc Pharmacy 46.6 ml/min; Est GFR (African American) 55.7 ml/min; Est GFR (Non-African American) 48.1 ml/min; Globulin 4.6 gm/dl (2.5-4.0); Potassium 3.4 mmol/L (3.5-5.1); Total Protein 8.3 gm/dl (6.0-8.3)
[2023-10-08] MEDS ORDERED: DOCUSATE SODIUM/SENNA 50/8.6MG TAB PO STA (14:02)
[2023-10-08 14:08] LABS: Anisocytosis Present; Polychromasia 2+
[2023-10-08] MEDS ORDERED: bisacodyL 10 MG SUPP PR STA (14:21)
--- NOTE | 2023-10-08 14:22 | History & Physical Report ---
Date of Service October 08, 2023 Assessment & Plan (1) Acute urinary retention: (2) Constipation: (3) BRUNA (acute kidney injury): Plan Mr. Bansal is a 52-year-old gentleman with PMH significant for DM type II, ischemic cardiomyopathy, systolic CHF, GERD, CKD stage III, history of CVA, right carotid endarterectomy, CAD, NSTEMI 2014 s/p BRUCE to RCA, depression, anxiety, and other problems listed below who presented to [facility] ED with concerns of abdominal pain and 1 day of no urination. Patient admitted for evaluation of such. Imaging notable for ?perforation, prompting NPO and IV PPI--contrasted image not obtained secondary to BRUNA at this time. GI consult placed to explore possibility of EGD .time #Acute urinary retention -Recent Urology visit inpatient 09/10 12/18 acute urinary retention -UA appears clean, concern for component of constipation contribution to acute retention given degree of fecal burden -Start tamsulosin -PSA likely falsely elevated iso giles placement #Abdominal pain #Obstipation -Notable fecal burden, covered in stool given attempt at "self-disimpaction" -s/p bisacodyl suppository, if unsuccessful will trial enema -Aggressive bowel regimen -CT abd given abdominal pain, acute retention, bruna -concerning for perforation?, limited / no contrast use -Start IV PPI -Consult GI, ?EGD v contrast when bruna resolves #BRUNA iso of acute urinary retention, s/p fluids in ED -Hold nephrotoxic agents and renally acting rx (furosemide/lasix/spironolactone), resume when po intake improves/as tolerated #Hypokalemia -Replace lytes prn #Mild Hyponatremia -Noted since last admission, likely iso constipation, chronic illness , poor intake -FR 1.8L -Trend BMP #Chronic mild, normocytic anemia -Baseline at 13~, B12 >1500 09/10, folate 7.26, ferritin 171.2, -CTM #Recent Pulmonary Emboli c/b Pulmonary Infarct Pulmonology Consult on 09/13, -Transitioned from warfarin to oral DOAC as OP -Completed robust course of abx -CTA more suggestive of pulm infarct that will likely resolve over time, can cause noninfectious leukocytosis per prior pulm reports -Recommended followup CT scan w/o contrast in 8-12 weeks (plan 11/2023) -CTM, resume eliquis #Failure to thrive #ambulatory dysfunction PT/OT Reports not being safe at home CT head ordered, plan for MRI #Acute heart failure with reduced ejection fraction #Left ventricular apical thrombus #Ischemic cardiomyopathy, severe coronary artery diease Presented with increasing shortness of breath and lower extremity edema, noted to be hypoxemic on room air ECHO 09/17 with EF 20-25%, severe hypokinesis & Left ventricular apical thrombus discovered in the setting of severe cardiomyopathy Status post cardiac cath 09/22: Three-vessel coronary artery disease with markedly elevated left end-diastolic pressure. Diffuse coronary atherosclerosis but degree of coronary disease disproportionate to degree of systolic dysfunction -Continue plavix, eliquis combo for thrombus/severe CAD -Resume Metoprolol 50mg BID -Resume lisinopril 10 BID, Imdur 20mg BID, spironolactone as able (held iso BRUNA) #ASCVD #Prior Stroke -Rescan head given OSH documentation of recent fall in phone encounter -If negative for acute process, continue plavix/statin #DM type 2 (diabetes mellitus, type 2) Hgb A1c 7.0 on 09/09; at discharge, placed on Lantus 12 units. Relatively hypoglycemic Hold glargine, start SSI, adjust while inpatient DVT: eliquis admit [facility] for further eval of multiple concerns, I spent a total of 60 minutes coordinating, documenting, and providing care for this patient excluding time spent in the performance of separately billed services History of Present Illness Chief Complaint: abdominal pain, urinary retention Primary Care Provider: Pedro Pablo Gaspar MD Mr. Bansal is a 52-year-old gentleman with PMH significant for DM type II, ischemic cardiomyopathy, systolic CHF, GERD, CKD stage III, history of CVA, right carotid endarterectomy, CAD, NSTEMI 2014 s/p BRUCE to RCA, depression, anxiety, and other problems listed below who presented to [facility] ED with concerns of abdominal pain and 1 day of no urination. Patient discharge on 09/23 to [facility] for which he stayed approximately 1 week. He notes intermittent issues with strained urination, as well as difficulties with constipation. After getting settled at home, he notes issues with transportation and failure to make follow up appointments; however, he endorses compliance with medications (though it took about 3-4 days after discharge from [facility] to get medications from pharmacy due to transport issues). He received assistance from home health to fill his medications. He denies chest pain, orthopnea, edema, WELSH, or other acute concerns. Upon arrival to ED, labs revealed persistent leukocytosis, stable anemia, hypokalemia, gap acidosis 15, and BRUNA to 1.62. BNP 1340 (notably decreased from 3000 last admission). UA negative for infection. Exam per ED provider revealed extremely distended bladder to palpation, subsequently resolved with giles placement and return of over 1.2L urine. Imaging concerning for ?perforated gastric ulcer, but limited given lack of contrast. EKG sinus tachy ED interventions: 1L NS Patient to be admitted to med/surg tele for further evaluation of constipation, urinary retention and exploration of findings on imaging. Allergies Allergy/AdvReac Type Severity Reaction Status Date / Time No Known Allergies Allergy Verified 10/08/23 14:28 Home Medications Medication Instructions Recorded Confirmed Type clopidogrel 75 mg tablet (Plavix) 75 mg PO DAILY 06/05/21 10/08/23 History atorvastatin 20 mg tablet 20 mg PO QAM 09/08/23 10/08/23 History omeprazole 40 mg capsule,delayed 40 mg PO QAM 09/08/23 10/08/23 History release furosemide 20 mg tablet (Lasix) 20 mg PO BID #60 tabs 09/23/23 10/08/23 Rx isosorbide dinitrate 20 mg tablet 20 mg PO BID@0700,1200 #30 tabs 09/23/23 10/08/23 Rx lisinopril 10 mg tablet 10 mg PO BID #30 tabs 09/23/23 10/08/23 Rx magnesium oxide 400 mg (241.3 mg 400 mg PO BID #60 tabs 09/23/23 10/08/23 Rx magnesium) tablet metoprolol succinate 50 mg 50 mg PO BID #30 tabs 09/23/23 10/08/23 Rx tablet,extended release 24 hr polyethylene glycol 3350 17 gram 17 g PO DAILY PRN constipation #30 09/23/23 10/08/23 Rx oral powder packet (Miralax) ea spironolactone 25 mg tablet 25 mg PO QAM #30 tabs 09/23/23 10/08/23 Rx acetaminophen 325 mg tablet 650 mg PO Q4H PRN Mild Pain (Scale 10/08/23 10/08/23 History (Tylenol) Score 1-4) apixaban 5 mg tablet (Eliquis) 5 mg PO Q12H 10/08/23 10/08/23 History docusate sodium 50 mg tablet 25 mg PO BID 10/08/23 10/08/23 History furosemide 20 PO BID 10/08/23 History insulin glargine 100 unit/mL 12 unit SC QAM 10/08/23 10/08/23 History subcutaneous solution (Lantus U-100 Insulin) isosorbide dinitrate 20 BID 10/08/23 History magnesium hydroxide 400 mg/5 mL 2,400 mg PO DAILY 10/08/23 10/08/23 History oral suspension (Milk of Magnesia) sennosides 8.6 mg-docusate sodium 1 tab-cap PO DAILY 10/08/23 10/08/23 History 50 mg tablet (Senokot-S) tramadol 50 mg tablet 50 mg PO Q4H PRN Moderate Pain 10/08/23 10/08/23 History (Scale Score 5-6) Past Med/Surg History Medical History CKD (chronic kidney disease), stage III Encounter for pre-operative examination Ischemic cardiomyopathy EF=45% Dyslipidemia Abnormal MRI of head MRI 06/15/20 showed MCA infarcts as well as ring enhancement right posterior lobe. Repeat MRI recommended in 3 months. Depression CAD (coronary artery disease) 2013 - NSTEMI s/p BRUCE to RCA DM type 2 (diabetes mellitus, type 2) History of cerebrovascular accident March 2020; subacute infarct noted to parietal lobe per 06/15/20 MRI Carotid stenosis, bilateral Hypertension Surgical History Hx of endarterectomy (06/28/20) Right Carotid Endarterectomy with Bovine Patch Angioplasty Dr. Arita 06/28/2020 S/P drug eluting coronary stent placement Family History Mother , age 68 from metastatic lung cancer Lung cancer Father No problems noted. 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 Respiratory: normal respiratory effort, lungs clear to auscultation Cardiovascular: tachycardic, no murmur ; no peripheral edema Gastrointestinal (Abdomen): mild tenderness in epigastrium Results & Data Results & Data Vital Signs (Past 12 Hours) Vital Signs Temp Pulse Resp BP Pulse Ox O2 Del Method 10/08/23 13:39 36.6 C 116 H 22 114/87 100 Room Air 10/08/23 13:17 116 H Laboratory Results Short CBC 10/08/23 Range/Units 13:15 WBC 13.49 H (4.8-10.8) K/ul Hgb 13.0 L (14.0-18.0) g/dl Hct 39.1 L (42.0-52.0) % Plt Count 389 (130-400) K/uL BMP 10/08/23 13:15 Sodium 134 L Potassium 3.4 L Chloride 99 Carbon Dioxide 20 L BUN 16 Creatinine 1.62 H Glucose 99 Calcium 9.6 Liver Function 10/08/23 Range/Units 13:15 Total Bilirubin 1.2 H (0.2-1.0) mg/dl AST 21 (13-39) U/L ALT 27 (7-52) U/L Alkaline Phosphatase 96 (34-104) U/L Albumin 3.7 (3.4-5.0) gm/dl Urine 10/08/23 Range/Units 13:24 Urine Color Yellow Urine Appearance Clear (Clear) Urine pH 7.5 (4.5-7.5) Ur Specific [place] 1.010 (1.000-1.030) Urine Protein Trace H (Negative) Urine Glucose (UA) Negative (Negative) Diagnostic Findings IMPRESSION: 1. Although evaluation is limited by noncontrast technique, there is a loss of fat plane between the pancreas and stomach with an ill-defined fat and soft tissue density in the region. Findings may represent perforated gastric ulcer, less likely pancreatitis. There is new from 09/08/2023. 2. Bladder wall thickening may be secondary to underdistention, however correlation with urinalysis is recommended. 3. Density in the bilateral lower lungs may represent pulmonary infarcts versus atelectasis/scarring. 4. Possible nonobstructive stones but no evidence of hydronephrosis. Medications Administered Home Medications Medication Instructions Recorded Confirmed Last Taken clopidogrel 75 mg tablet (Plavix) 75 mg PO DAILY 06/05/21 10/08/23 Unknown atorvastatin 20 mg tablet 20 mg PO QAM 09/08/23 10/08/23 Unknown omeprazole 40 mg capsule,delayed 40 mg PO QAM 09/08/23 10/08/23 Unknown release furosemide 20 mg tablet (Lasix) 20 mg PO BID #60 tabs 09/23/23 10/08/23 Unknown isosorbide dinitrate 20 mg tablet 20 mg PO BID@0700,1200 #30 tabs 09/23/23 10/08/23 Unknown lisinopril 10 mg tablet 10 mg PO BID #30 tabs 09/23/23 10/08/23 Unknown magnesium oxide 400 mg (241.3 mg 400 mg PO BID #60 tabs 09/23/23 10/08/23 Unknown magnesium) tablet metoprolol succinate 50 mg 50 mg PO BID #30 tabs 09/23/23 10/08/23 Unknown tablet,extended release 24 hr polyethylene glycol 3350 17 gram 17 g PO DAILY PRN constipation #30 09/23/23 10/08/23 Unknown oral powder packet (Miralax) ea spironolactone 25 mg tablet 25 mg PO QAM #30 tabs 09/23/23 10/08/23 Unknown acetaminophen 325 mg tablet 650 mg PO Q4H PRN Mild Pain (Scale 10/08/23 10/08/23 Unknown (Tylenol) Score 1-4) apixaban 5 mg tablet (Eliquis) 5 mg PO Q12H 10/08/23 10/08/23 Unknown docusate sodium 50 mg tablet 25 mg PO BID 10/08/23 10/08/23 Unknown insulin glargine 100 unit/mL 12 unit SC QAM 10/08/23 10/08/23 Unknown subcutaneous solution (Lantus U-100 Insulin) magnesium hydroxide 400 mg/5 mL 2,400 mg PO DAILY 10/08/23 10/08/23 Unknown oral suspension (Milk of Magnesia) sennosides 8.6 mg-docusate sodium 1 tab-cap PO DAILY 10/08/23 10/08/23 Unknown 50 mg tablet (Senokot-S) tramadol 50 mg tablet 50 mg PO Q4H PRN Moderate Pain 10/08/23 10/08/23 Unknown (Scale Score 5-6) (2) Constipation Constipation type: unspecified constipation type Qualified Code(s): K59.00 - Constipation, unspecified
--- NOTE | 2023-10-08 17:05 | CT Scan Report ---
CT head/brain wo con CLINICAL HISTORY: recent fall Technique: Contiguous axial CT images of the head were acquired from the base of the skull to the bret neisha without intravenous contrast administration. Images were viewed in brain[facility]. Automated dose lowering techniques and/or adjustment according to patient size were utilized for this exam. Comparison: Comparison is made to CT head 07/10/2021 Findings: Areas of decreased attenuation are present in the periventricular and subcortical white matter bilate rally consistent with small vessel ischemic disease. Generalized cerebral atrophy with commensurate e nlargement of the ventricles, sulci, and cisterns is also present. There is no acute intracranial hem orrhage or evidence of acute territorial infarction. No shift of the midline structures, mass effect, or extra-axial abnormalities are shown. Atherosclerotic calcifications are present in the intracran ial segments of the internal carotid arteries. Imaged portions of the paranasal sinuses and mastoid air cells are clear. The orbits appear normal. There are no acute fractures of the calvaria or scalp swelling. Impression: No acute intracranial hemorrhage, no evidence of acute territorial infarction or other acute intracra nial disease process. ACT 112: Negative or not required by law. Electronically signed by: Bob Saunders M.D. 10/08/2023 5:03 PM
--- NOTE | 2023-10-08 17:36 | CT Scan Report ---
CT abd pelvis wo con CLINICAL HISTORY: abdominal pain, urinary retension, joaquina TECHNIQUE: Helical axial images of the abdomen and pelvis were obtained. Automated dose lowering tech niques and/or adjustment according to patient size were utilized for this exam. This exam was perfor med without intravenous contrast. COMPARISON: Comparison is made to CTA chest 09/08/2023 FINDINGS: Lower chest: Bilateral lower lung atelectasis versus scarring is seen. Liver: Unremarkable. No focal lesions are seen. Gallbladder and biliary tree: No calcified gallstones. Normal caliber wall. No intra- or extrahepatic biliary ductal dilation. Pancreas: There is loss of the fat plane between the pancreas and stomach in the region of the pancre atic body. Spleen: Unremarkable. Adrenals: Unremarkable. Kidneys and ureters: Renal cysts are seen. Nonobstructive stones versus calcifications noted. Bladder: Rushing catheter is seen. Bladder wall appears thickened. Reproductive organs: Unremarkable. Bowel: A hiatal hernia is seen. Although evaluation is limited by noncontrast technique, there is het erogeneity about the lesser curvature of the stomach hyperintensity and gas noted. Metallic density i s seen in the region of the distal stomach. Lymph nodes Retroperitoneal: Unremarkable. Pelvic: Unremarkable. Mesenteric: Unremarkable. Peritoneum: Fat stranding is seen in the left upper quadrant. Vessels: Atherosclerotic calcifications are seen. Abdominal wall: Unremarkable. Bones: Degenerative changes in the visualized spine. IMPRESSION: 1. Although evaluation is limited by noncontrast technique, there is a loss of fat plane between the pancreas and stomach with an ill-defined fat and soft tissue density in the region. Findings may rep resent perforated gastric ulcer, less likely pancreatitis. There is new from 09/08/2023. 2. Bladder wall thickening may be secondary to underdistention, however correlation with urinalysis is recommended. 3. Density in the bilateral lower lungs may represent pulmonary infarcts versus atelectasis/scarring . 4. Possible nonobstructive stones but no evidence of hydronephrosis. ACT 112: Negative or not required by law. Electronically signed by: Bob Saunders M.D. 10/08/2023 5:34 PM
[2023-10-08] MEDS ORDERED: POLYETHYLENE (MIRALAX) 17 GM PACK PO PRN (17:42)
[2023-10-08] MEDS ORDERED: traMADol HCL 50 MG TABLET PO PRN (17:42)
[2023-10-08] MEDS ORDERED: GLUCAGON FOR INJ 1 MG VIAL SQ PRN (17:42)
[2023-10-08] MEDS ORDERED: DEXTROSE 50% 50 ML SYRINGE IV PRN (17:42)
[2023-10-08] MEDS ORDERED: ALUMINUM/MAGNESIUM SUSP 30 ML UDC PO PRN (17:42)
[2023-10-08] MEDS ORDERED: GLUCOSE 10 TAB/TUBE PO PRN (17:42)
[2023-10-08] MEDS ORDERED: GLUCOSE 40% GEL 15 GM TUBE PO PRN (17:42)
[2023-10-08] MEDS ORDERED: TAMSULOSIN HCL 0.4 MG CAP PO ONE (17:42)
[2023-10-08] MEDS ORDERED: ACETAMINOPHEN 325 MG TAB PO PRN (17:42)
[2023-10-08] MEDS: METOPROLOL SUCC 50MG EXT REL TAB PO SCH (18:44)
[2023-10-08] MEDS: APIXABAN 5 MG TABLET PO SCH (18:49)
[2023-10-08] MEDS ORDERED: LABETALOL HCL IV 5 MG/ML 20ML IV PRN (19:01)
[2023-10-08] MEDS: INSULIN ASPART PER UNIT CHARGE SC SCH ×2 (19:47→21:49)
[2023-10-08] MEDS ORDERED: lisinopril 10 MG TAB PO SCH (21:00)
[2023-10-08] MEDS: PANTOprazole 40 MG in SYRINGE 0 ML IV SCH (21:52)
[2023-10-08] MEDS: TAMSULOSIN HCL 0.4 MG CAP PO SCH (21:52)
[2023-10-09] MEDS: APIXABAN 5 MG TABLET PO SCH ×2 (06:23→17:43)
[2023-10-09] MEDS: ISOSORBIDE DINITRATE 20 MG TAB PO SCH ×2 (06:23→12:12)
[2023-10-09] MEDS ORDERED: LACTATED RINGER'S 1,000 ML IV SCH (08:15)
[2023-10-09 08:29] LABS: Calcium 8.6 mg/dl (8.6-10.3); Magnesium 2.3 mg/dl (1.7-2.4); Potassium 4.2 mmol/L (3.5-5.1)
[2023-10-09 08:33] LABS: Creatinine Clr Calc Pharmacy 53.2 ml/min; Est GFR (African American) 65.4 ml/min; Est GFR (Non-African American) 56.4 ml/min; Phosphorus 3.4 mg/dl (2.5-4.9)
[2023-10-09] MEDS: PANTOprazole 40 MG in SYRINGE 0 ML IV SCH ×2 (08:34→21:35)
[2023-10-09] MEDS: ATORVASTATIN 20 MG TAB PO SCH (08:34)
[2023-10-09] MEDS: METOPROLOL SUCC 50MG EXT REL TAB PO SCH ×2 (08:34→21:35)
[2023-10-09] MEDS ORDERED: PANTOprazole 40 MG TAB PO SCH (09:00)
[2023-10-09] MEDS ORDERED: CLOPIDOGREL BISULFATE 75 MG TAB PO SCH (09:00)
[2023-10-09] MEDS ORDERED: FUROSEMIDE 20 MG TAB PO SCH (09:00)
--- NOTE | 2023-10-09 09:24 | Electrocardiogram Report ---
Test Reason : Blood Pressure : / mmHG Vent. Rate : 109 BPM Atrial Rate : 109 BPM P-R Int : 176 ms QRS Dur : 100 ms QT Int : 332 ms P-R-T Axes : 076 -20 112 degrees QTc Int : 447 ms Sinus tachycardia Right atrial enlargement Moderate voltage criteria for LVH, may be normal variant ( R in aVL ) Inferior infarct (cited on or before 04-MAY-2021) Anterolateral infarct , age undetermined Abnormal ECG When compared with ECG of 10-SEP-2023 06:25, No significant change was found Confirmed by Madan Burton ([id number]) on 10/09/2023 9:23:36 AM Referred By: REFERRED SELF Confirmed By:Madan Burton
[2023-10-09] MEDS: INSULIN ASPART PER UNIT CHARGE SC SCH ×4 (09:49→21:34)
--- NOTE | 2023-10-09 10:22 | Gastrointestinal Consultation ---
Date of Consultation October 09, 2023 Assessment & Plan (1) Abnormal CT of the abdomen: I think it is difficult to imagine him having a perforation--even walled off--without abdominal pain. He did have lower abdominal pain on admit but that was due to his urinary retention that has been corrected and his lower abdominal pain is gone. He really has no symptoms related to his UGI tract to worry about. However, EGD is contraindicated when there is mention of possible perforation on imaging study. If this is to be pursued I would get an UGI series on him when felt appropriate. He is hungry and would like to eat but I don't think he can be fed until this issue is resolved. History of Present Illness Reason for Consultation: abnormal CT Attending Physician: Aissatou Jansen MD History of Present Illness 52 year old man admitted with urinary retention found to have findings possibly consistent with perforation of gastric ulcer into pancreatic bed on CT scan. At the time of my visit the issue with urinary retention has been solved and he has no abdominal pain. Prior to this issue he didn't have much of an appetite but he denies prior abdominal pain. He does admit to taking NSAIDs at least once daily. He has never had EGD nor has he had a colonoscopy. Allergies Allergy/AdvReac Type Severity Reaction Status Date / Time No Known Allergies Allergy Verified 10/08/23 14:28 Home Medications Medication Instructions Recorded Confirmed Type clopidogrel 75 mg tablet (Plavix) 75 mg PO DAILY 06/05/21 10/08/23 History atorvastatin 20 mg tablet 20 mg PO QAM 09/08/23 10/08/23 History omeprazole 40 mg capsule,delayed 40 mg PO QAM 09/08/23 10/08/23 History release furosemide 20 mg tablet (Lasix) 20 mg PO BID #60 tabs 09/23/23 10/08/23 Rx isosorbide dinitrate 20 mg tablet 20 mg PO BID@0700,1200 #30 tabs 09/23/23 10/08/23 Rx lisinopril 10 mg tablet 10 mg PO BID #30 tabs 09/23/23 10/08/23 Rx magnesium oxide 400 mg (241.3 mg 400 mg PO BID #60 tabs 09/23/23 10/08/23 Rx magnesium) tablet metoprolol succinate 50 mg 50 mg PO BID #30 tabs 09/23/23 10/08/23 Rx tablet,extended release 24 hr polyethylene glycol 3350 17 gram 17 g PO DAILY PRN constipation #30 09/23/23 10/08/23 Rx oral powder packet (Miralax) ea spironolactone 25 mg tablet 25 mg PO QAM #30 tabs 09/23/23 10/08/23 Rx acetaminophen 325 mg tablet 650 mg PO Q4H PRN Mild Pain (Scale 10/08/23 10/08/23 History (Tylenol) Score 1-4) apixaban 5 mg tablet (Eliquis) 5 mg PO Q12H 10/08/23 10/08/23 History docusate sodium 50 mg tablet 25 mg PO BID 10/08/23 10/08/23 History furosemide 20 PO BID 10/08/23 History insulin glargine 100 unit/mL 12 unit SC QAM 10/08/23 10/08/23 History subcutaneous solution (Lantus U-100 Insulin) isosorbide dinitrate 20 BID 10/08/23 History magnesium hydroxide 400 mg/5 mL 2,400 mg PO DAILY 10/08/23 10/08/23 History oral suspension (Milk of Magnesia) sennosides 8.6 mg-docusate sodium 1 tab-cap PO DAILY 10/08/23 10/08/23 History 50 mg tablet (Senokot-S) tramadol 50 mg tablet 50 mg PO Q4H PRN Moderate Pain 10/08/23 10/08/23 History (Scale Score 5-6) Patient History Medical History (Updated 10/09/23 @ 10:19 by Leo Monterroso Jr, MD) Abnormal CT of the abdomen CKD (chronic kidney disease), stage III Encounter for pre-operative examination Ischemic cardiomyopathy EF=45% Dyslipidemia Abnormal MRI of head MRI 06/15/20 showed MCA infarcts as well as ring enhancement right posterior lobe. Repeat MRI recommended in 3 months. Depression CAD (coronary artery disease) 2013 - NSTEMI s/p BRUCE to RCA DM type 2 (diabetes mellitus, type 2) History of cerebrovascular accident March 2020; subacute infarct noted to parietal lobe per 06/15/20 MRI Carotid stenosis, bilateral Hypertension Surgical History Hx of endarterectomy (06/28/20) Right Carotid Endarterectomy with Bovine Patch Angioplasty Dr. Arita 06/28/2020 S/P drug eluting coronary stent placement Family History Mother , age 68 from metastatic lung cancer Lung cancer Father No problems noted. 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[employer], 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 Feels Safe at Home: Yes Assistive Devices: None Review of Systems Review of Systems: All systems reviewed & are unremarkable except as noted in HPI & below Physical Exam Constitutional: WD/WN, vitals as above no acute distress Eyes: PERRL, conjunctivae normal, anicteric sclerae ENMT: external ear and nose normal, oropharynx normal Neck: trachea midline, no thyromegaly Respiratory: normal respiratory effort, lungs clear to auscultation Cardiovascular: RRR, no murmur, no edema Gastrointestinal (Abdomen): normal bowel sounds, soft, nontender, no hepatosplenomegaly Musculoskeletal: Extremities: no cyanosis and no clubbing Skin: no rashes, warm and dry Neurologic: PERRL, EOMI, accommodation nl, no face palsy, no dysarthria Psychiatric: Orientation: alert and oriented x 3 Results & Data Vital Signs (Past 12 Hours) Vital Signs Temp Pulse Pulse Resp BP Pulse Ox O2 Del Method 10/09/23 07:17 36.6 C 67 17 103/64 94 Room Air 10/09/23 06:00 75 10/09/23 03:34 35.9 C L 70 18 93/59 L 98 Room Air 10/09/23 00:00 Room Air 10/08/23 22:42 36.4 C L 75 16 104/59 L 100 Room Air Laboratory Results 10/09/23 10/09/2310/08/23 Range/Units 08:15 07:42 21:48 WBC (4.8-10.8) K/ul RBC (4.70-6.10) M/uL Hgb (14.0-18.0) g/dl Hct (42.0-52.0) % MCV (80.0-100.0) fL MCH (25.0-34.0) pg MCHC (32.0-36.0) g/dL RDW Std Deviation (36.4-46.3) fL RDW Coeff of Dione (11.5-14.5) % Plt Count (130-400) K/uL MPV (9.4-12.4) fL Immature Gran % (Auto) % Neut % (Auto) % Lymph % (Auto) % Dickson % (Auto) % Eos % (Auto) % Baso % (Auto) % Neut # (Auto) (1.40-6.50) K/uL Lymph # (Auto) (1.20-3.40) K/uL Dickson # (Auto) (0.11-0.59) K/uL Eos # (Auto) (0.00-0.50) K/uL Baso # (Auto) (0.00-0.20) K/uL Immature Gran # (Auto) (0.01-0.20) K/uL Absolute Nucleated RBC (0.00-0.12) K/uL Nucleated RBC % (auto) % Polychromasia Anisocytosis Sodium 134 L (136-145) mmol/L Potassium 4.2 D (3.5-5.1) mmol/L Chloride 106 (98-107) mmol/L Carbon Dioxide 22 (21-32) mmol/L Anion Gap 6 (3-11) BUN 17 (6-23) mg/dl Creatinine 1.42 H (0.6-1.4) mg/dl Est Cr Clr Drug Dosing 53.2 ml/min Est GFR ( Amer) 65.4 ml/min Est GFR (Non-Af Amer) 56.4 ml/min BUN/Creatinine Ratio 12.0 (10-20) Glucose 79 (70-99(Fasting)) mg/dl POC Glucose 87 95 (70-99) mg/dl Calcium 8.6 (8.6-10.3) mg/dl Phosphorus 3.4 (2.5-4.9) mg/dl Magnesium 2.3 (1.7-2.4) mg/dl Total Bilirubin (0.2-1.0) mg/dl AST (13-39) U/L ALT (7-52) U/L Alkaline Phosphatase (34-104) U/L B-Natriuretic Peptide (0-100) pg/ml Total Protein (6.0-8.3) gm/dl Albumin (3.4-5.0) gm/dl Globulin (2.5-4.0) gm/dl Albumin/Globulin Ratio (0.9-2) Urine Color Urine Appearance (Clear) Urine pH (4.5-7.5) Ur Specific Hastings (1.000-1.030) Urine Protein (Negative) Urine Glucose (UA) (Negative) Urine Ketones (Negative) Urine Blood (Negative) Urine Nitrite (Negative) Urine Bilirubin (Negative) Urine Urobilinogen (Negative) Ur Leukocyte Esterase (Negative) Urine WBC (Auto) (0-5) /hpf Urine RBC (Auto) (0-4) /hpf U Hyaline Cast (Auto) (0-5) /lpf U Epithel Cells (Auto) (0-5) /lpf Urine Bacteria (Auto) (Negative) Ethyl Alcohol mg/dL (<10.0) mg/dl 10/08/23 10/08/23 10/08/23 Range/Units 18:38 14:56 13:24 WBC (4.8-10.8) K/ul RBC (4.70-6.10) M/uL Hgb (14.0-18.0) g/dl Hct (42.0-52.0) % MCV (80.0-100.0) fL MCH (25.0-34.0) pg MCHC (32.0-36.0) g/dL RDW Std Deviation (36.4-46.3) fL RDW Coeff of Dione (11.5-14.5) % Plt Count (130-400) K/uL MPV (9.4-12.4) fL Immature Gran % (Auto) % Neut % (Auto) % Lymph % (Auto) % Dickson % (Auto) % Eos % (Auto) % Baso % (Auto) % Neut # (Auto) (1.40-6.50) K/uL Lymph # (Auto) (1.20-3.40) K/uL Dickson # (Auto) (0.11-0.59) K/uL Eos # (Auto) (0.00-0.50) K/uL Baso # (Auto) (0.00-0.20) K/uL Immature Gran # (Auto) (0.01-0.20) K/uL Absolute Nucleated RBC (0.00-0.12) K/uL Nucleated RBC % (auto) % Polychromasia Anisocytosis Sodium (136-145) mmol/L Potassium (3.5-5.1) mmol/L Chloride (98-107) mmol/L Carbon Dioxide (21-32) mmol/L Anion Gap (3-11) BUN (6-23) mg/dl Creatinine (0.6-1.4) mg/dl Est Cr Clr Drug Dosing ml/min Est GFR ( Amer) ml/min Est GFR (Non-Af Amer) ml/min BUN/Creatinine Ratio (10-20) Glucose (70-99(Fasting)) mg/dl POC Glucose 85 (70-99) mg/dl Calcium (8.6-10.3) mg/dl Phosphorus (2.5-4.9) mg/dl Magnesium (1.7-2.4) mg/dl Total Bilirubin (0.2-1.0) mg/dl AST (13-39) U/L ALT (7-52) U/L Alkaline Phosphatase (34-104) U/L B-Natriuretic Peptide (0-100) pg/ml Total Protein (6.0-8.3) gm/dl Albumin (3.4-5.0) gm/dl Globulin (2.5-4.0) gm/dl Albumin/Globulin Ratio (0.9-2) Urine Color Yellow Urine Appearance Clear (Clear) Urine pH 7.5 (4.5-7.5) Ur Specific Hastings 1.010 (1.000-1.030) Urine Protein Trace H (Negative) Urine Glucose (UA) Negative (Negative) Urine Ketones Negative (Negative) Urine Blood Negative (Negative) Urine Nitrite Negative (Negative) Urine Bilirubin Negative (Negative) Urine Urobilinogen Negative (Negative) Ur Leukocyte Esterase Negative (Negative) Urine WBC (Auto) 1-5 (0-5) /hpf Urine RBC (Auto) 0-4 (0-4) /hpf U Hyaline Cast (Auto) 1-5 (0-5) /lpf U Epithel Cells (Auto) 0-5 (0-5) /lpf Urine Bacteria (Auto) Negative (Negative) Ethyl Alcohol mg/dL < 10.0 (<10.0) mg/dl 10/08/23 Range/Units 13:15 WBC 13.49 H (4.8-10.8) K/ul RBC 4.78 (4.70-6.10) M/uL Hgb 13.0 L (14.0-18.0) g/dl Hct 39.1 L (42.0-52.0) % MCV 81.8 (80.0-100.0) fL MCH 27.2 (25.0-34.0) pg MCHC 33.2 (32.0-36.0) g/dL RDW Std Deviation 56.2 H (36.4-46.3) fL RDW Coeff of Dione 22.6 H (11.5-14.5) % Plt Count 389 (130-400) K/uL MPV 9.4 (9.4-12.4) fL Immature Gran % (Auto) 1.6 % Neut % (Auto) 62.1 % Lymph % (Auto) 30.6 % Dickson % (Auto) 5.3 % Eos % (Auto) 0.2 % Baso % (Auto) 0.2 % Neut # (Auto) 8.37 H (1.40-6.50) K/uL Lymph # (Auto) 4.13 H (1.20-3.40) K/uL Dickson # (Auto) 0.72 H (0.11-0.59) K/uL Eos # (Auto) 0.03 (0.00-0.50) K/uL Baso # (Auto) 0.03 (0.00-0.20) K/uL Immature Gran # (Auto) 0.21 H (0.01-0.20) K/uL Absolute Nucleated RBC 0.02 (0.00-0.12) K/uL Nucleated RBC % (auto) 0.1 % Polychromasia 2+ Anisocytosis Present Sodium 134 L (136-145) mmol/L Potassium 3.4 L (3.5-5.1) mmol/L Chloride 99 (98-107) mmol/L Carbon Dioxide 20 L (21-32) mmol/L Anion Gap 15 H (3-11) BUN 16 (6-23) mg/dl Creatinine 1.62 H (0.6-1.4) mg/dl Est Cr Clr Drug Dosing 46.6 ml/min Est GFR ( Amer) 55.7 ml/min Est GFR (Non-Af Amer) 48.1 ml/min BUN/Creatinine Ratio 9.9 L (10-20) Glucose 99 (70-99(Fasting)) mg/dl POC Glucose (70-99) mg/dl Calcium 9.6 (8.6-10.3) mg/dl Phosphorus (2.5-4.9) mg/dl Magnesium (1.7-2.4) mg/dl Total Bilirubin 1.2 H (0.2-1.0) mg/dl AST 21 (13-39) U/L ALT 27 (7-52) U/L Alkaline Phosphatase 96 (34-104) U/L B-Natriuretic Peptide 1340 H (0-100) pg/ml Total Protein 8.3 (6.0-8.3) gm/dl Albumin 3.7 (3.4-5.0) gm/dl Globulin 4.6 H (2.5-4.0) gm/dl Albumin/Globulin Ratio 0.8 L (0.9-2) Urine Color Urine Appearance (Clear) Urine pH (4.5-7.5) Ur Specific Hastings (1.000-1.030) Urine Protein (Negative) Urine Glucose (UA) (Negative) Urine Ketones (Negative) Urine Blood (Negative) Urine Nitrite (Negative) Urine Bilirubin (Negative) Urine Urobilinogen (Negative) Ur Leukocyte Esterase (Negative) Urine WBC (Auto) (0-5) /hpf Urine RBC (Auto) (0-4) /hpf U Hyaline Cast (Auto) (0-5) /lpf U Epithel Cells (Auto) (0-5) /lpf Urine Bacteria (Auto) (Negative) Ethyl Alcohol mg/dL (<10.0) mg/dl Diagnostic Findings KUB X-Ray 10/08/23 12:59 XR KUB/Abdomen 1 view CLINICAL HISTORY: constipation TECHNIQUE: 1 view of the abdomen was obtained. Comparison: Comparison is made to liver ultrasound 09/09/2023 FINDINGS: Lung bases are unremarkable. The osseous structures are grossly unremarkable. The bowel gas pattern is nonobstructive. A moderate amount of stool is noted within the large bowel. IMPRESSION: Nonobstructive bowel gas pattern. ACT 112: Negative or not required by law. Electronically signed by: Bob Saunders M.D. 10/08/2023 1:41 PM Abdomen/Pelvis CT 10/08/23 14:21 CT abd pelvis wo con CLINICAL HISTORY: abdominal pain, urinary retension, joaquina TECHNIQUE: Helical axial images of the abdomen and pelvis were obtained. Automated dose lowering techniques and/or adjustment according to patient size were utilized for this exam. This exam was performed without intravenous contrast. COMPARISON: Comparison is made to CTA chest 09/08/2023 FINDINGS: Lower chest: Bilateral lower lung atelectasis versus scarring is seen. Liver: Unremarkable. No focal lesions are seen. Gallbladder and biliary tree: No calcified gallstones. Normal caliber wall. No intra- or extrahepatic biliary ductal dilation. Pancreas: There is loss of the fat plane between the pancreas and stomach in the region of the pancreatic body. Spleen: Unremarkable. Adrenals: Unremarkable. Kidneys and ureters: Renal cysts are seen. Nonobstructive stones versus calcifications noted. Bladder: Rushing catheter is seen. Bladder wall appears thickened. Reproductive organs: Unremarkable. Bowel: A hiatal hernia is seen. Although evaluation is limited by noncontrast technique, there is heterogeneity about the lesser curvature of the stomach hyperintensity and gas noted. Metallic density is seen in the region of the distal stomach. Lymph nodes Retroperitoneal: Unremarkable. Pelvic: Unremarkable. Mesenteric: Unremarkable. Peritoneum: Fat stranding is seen in the left upper quadrant. Vessels: Atherosclerotic calcifications are seen. Abdominal wall: Unremarkable. Bones: Degenerative changes in the visualized spine. IMPRESSION: 1. Although evaluation is limited by noncontrast technique, there is a loss of fat plane between the pancreas and stomach with an ill-defined fat and soft tissue density in the region. Findings may represent perforated gastric ulcer, less likely pancreatitis. There is new from 09/08/2023. 2. Bladder wall thickening may be secondary to underdistention, however correlation with urinalysis is recommended. 3. Density in the bilateral lower lungs may represent pulmonary infarcts versus atelectasis/scarring. 4. Possible nonobstructive stones but no evidence of hydronephrosis. ACT 112: Negative or not required by law. Electronically signed by: Bob Saunders M.D. 10/08/2023 5:[address] 10/08/23 15:03 CT head/brain wo con CLINICAL HISTORY: recent fall Technique: Contiguous axial CT images of the head were acquired from the base of the skull to the vertex without intravenous contrast administration. Images were viewed in brain, subdural and bone windows. Automated dose lowering techniques and/or adjustment according to patient size were utilized for this exam. Comparison: Comparison is made to CT head 07/10/2021 Findings: Areas of decreased attenuation are present in the periventricular and subcortical white matter bilaterally consistent with small vessel ischemic disease. Generalized cerebral atrophy with commensurate enlargement of the ventricles, sulci, and cisterns is also present. There is no acute intracranial hemorrhage or evidence of acute territorial infarction. No shift of the midline structures, mass effect, or extra-axial abnormalities are shown. Atherosclerotic calcifications are present in the intracranial segments of the internal carotid arteries. Imaged portions of the paranasal sinuses and mastoid air cells are clear. The orbits appear normal. There are no acute fractures of the calvaria or scalp swelling. Impression: No acute intracranial hemorrhage, no evidence of acute territorial infarction or other acute intracranial disease process. ACT 112: Negative or not required by law. Electronically signed by: Bob Saunders M.D. 10/08/2023 5:03 PM
[2023-10-09] MEDS: CARBOHYDRATES FOR HYPOGLYCEMIA PO PRN (12:50)
--- NOTE | 2023-10-09 13:20 | Hospitalist Progress Note ---
Date of Service October 09, 2023 Assessment & Plan (1) Acute urinary retention: (2) Constipation: (3) BRUNA (acute kidney injury): Plan Mr. Bansal is a 52-year-old gentleman with PMH significant for DM type II, ischemic cardiomyopathy, systolic CHF, GERD, CKD stage III, history of CVA, right carotid endarterectomy, CAD, NSTEMI 2014 s/p BRUCE to RCA, depression, anxiety, and other problems listed below who presented to [facility] with concerns of abdominal pain and 1 day of no urination. Patient admitted for evaluation of such. Imaging notable for ?perforation, prompting NPO and IV PPI--contrasted image not obtained secondary to BRUNA at this time. GI consult placed to explore possibility of EGD--recommended further imaging to assess area. Planning for CT with PO contrast to examine area, given limited use of IV contrast. #Acute urinary retention -Recent Urology visit inpatient 09/10 2/2 acute urinary retention -UA appears clean, concern for component of constipation contribution to acute retention given degree of fecal burden -Continue tamsulosin -PSA likely falsely elevated iso giles placement, will defer ordering at this time -Ensure good bowel regimen #Abdominal pain #Obstipation -Notable fecal burden, covered in stool given attempt at "self-disimpaction" -s/p bisacodyl suppository, if unsuccessful will trial enema -Aggressive bowel regimen -CT abd given abdominal pain, acute retention, bruna -concerning for perforation?, limited 2/2 no contrast use -Start IV PPI -Consult GI, ?EGD v contrast when bruna resolves -Plan for CT PO contrast to evaluate area of concern #BRUNA on CKDII iso of acute urinary retention, s/p fluids in ED -Hold nephrotoxic agents and renally acting rx (furosemide/lasix/spironolactone), resume when po intake improves/as tolerated #Hypokalemia -Replace lytes prn #Mild Hyponatremia *stable -Noted since last admission, likely iso constipation, chronic illness , poor intake -FR 1.8L -Trend BMP #Chronic mild, normocytic anemia -Baseline at 13~, B12 >1500 09/10, folate 7.26, ferritin 171.2, -CTM #Recent Pulmonary Emboli c/b Pulmonary Infarct Pulmonology Consult on 09/13, -Transitioned from warfarin to oral DOAC as OP -Completed robust course of abx -CTA more suggestive of pulm infarct that will likely resolve over time, can cause noninfectious leukocytosis per prior pulm reports -Recommended followup CT scan w/o contrast in 8-12 weeks (plan 11/2023) -CTM, continue eliquis #Failure to thrive #ambulatory dysfunction PT/OT Reports not being safe at home CT head: Atherosclerotic calcifications are present in the intracranial segments of the internal carotid arteries. #Acute heart failure with reduced ejection fraction #Left ventricular apical thrombus #Ischemic cardiomyopathy, severe coronary artery diease Presented with increasing shortness of breath and lower extremity edema, noted to be hypoxemic on room air ECHO 09/17 with EF 20-25%, severe hypokinesis & Left ventricular apical thrombus discovered in the setting of severe cardiomyopathy Status post cardiac cath 09/22: Three-vessel coronary artery disease with markedly elevated left end-diastolic pressure. Diffuse coronary atherosclerosis but degree of coronary disea se disproportionate to degree of systolic dysfunction -Continue plavix, eliquis combo for thrombus/severe CAD -Resume Metoprolol 50mg BID -Resume lisinopril 10 BID, Imdur 20mg BID, spironolactone as able (held iso BRUNA) #ASCVD #Prior Stroke -Rescan head given OSH documentation of recent fall in phone encounter -If negative for acute process, continue plavix/statin #DM type 2 (diabetes mellitus, type 2) Hgb A1c 7.0 on 09/09; at discharge, placed on Lantus 12 units. Relatively hypoglycemic Hold glargine, start SSI, adjust while inpatient DVT: consuelo admit to [facility] for further eval of multiple concerns, I spent a total of 60 minutes coordinating, documenting, and providing care for this patient excluding time spent in the performance of separately billed services Admission and Anticipated Discharge Date Admission Date: October 08, 2023 Subjective NAEO Difficulties coordinating Upper GI series given holiday--plan for PO contrast CT after discussion with Rad Patient denies nausea or vomiting, and endorsing strong appetite. Review of Systems Review of Systems: All systems reviewed & are unremarkable except as noted in Subjective Physical Exam Constitutional: WD/WN, vitals as above Respiratory: normal respiratory effort, lungs clear to auscultation Cardiovascular: RRR, no murmur, no edema Results & Data Results & Data Vital Signs (Past 12 Hours) Vital Signs Temp Pulse Pulse Resp BP Pulse Ox O2 Del Method 10/09/23 11:10 36.4 C L 70 17 104/60 95 Room Air 10/09/23 07:17 36.6 C 67 17 103/64 94 Room Air 10/09/23 06:00 75 10/09/23 03:34 35.9 C L 70 18 93/59 L 98 Room Air Laboratory Results Short CBC 10/08/23 Range/Units 13:15 WBC 13.49 H (4.8-10.8) K/ul Hgb 13.0 L (14.0-18.0) g/dl Hct 39.1 L (42.0-52.0) % Plt Count 389 (130-400) K/uL BMP 10/08/23 10/09/23 13:15 07:42 Sodium 134 L 134 L Potassium 3.4 L 4.2 D Chloride 99 106 Carbon Dioxide 20 L 22 BUN 16 17 Creatinine 1.62 H 1.42 H Glucose 99 79 Calcium 9.6 8.6 Liver Function 10/08/23 Range/Units 13:15 Total Bilirubin 1.2 H (0.2-1.0) mg/dl AST 21 (13-39) U/L ALT 27 (7-52) U/L Alkaline Phosphatase 96 (34-104) U/L Albumin 3.7 (3.4-5.0) gm/dl Urine 10/08/23 Range/Units 13:24 Urine Color Yellow Urine Appearance Clear (Clear) Urine pH 7.5 (4.5-7.5) Ur Specific [place] 1.010 (1.000-1.030) Urine Protein Trace H (Negative) Urine Glucose (UA) Negative (Negative) Medications Administered Home Medications Medication Instructions Recorded Confirmed Last Taken clopidogrel 75 mg tablet (Plavix) 75 mg PO DAILY 06/05/21 10/08/23 Unknown atorvastatin 20 mg tablet 20 mg PO QAM 09/08/23 10/08/23 Unknown omeprazole 40 mg capsule,delayed 40 mg PO QAM 09/08/23 10/08/23 Unknown release furosemide 20 mg tablet (Lasix) 20 mg PO BID #60 tabs 09/23/23 10/08/23 Unknown isosorbide dinitrate 20 mg tablet 20 mg PO BID@0700,1200 #30 tabs 09/23/23 10/08/23 Unknown lisinopril 10 mg tablet 10 mg PO BID #30 tabs 09/23/23 10/08/23 Unknown magnesium oxide 400 mg (241.3 mg 400 mg PO BID #60 tabs 09/23/23 10/08/23 Unknown magnesium) tablet metoprolol succinate 50 mg 50 mg PO BID #30 tabs 09/23/23 10/08/23 Unknown tablet,extended release 24 hr polyethylene glycol 3350 17 gram 17 g PO DAILY PRN constipation #30 09/23/23 10/08/23 Unknown oral powder packet (Miralax) ea spironolactone 25 mg tablet 25 mg PO QAM #30 tabs 09/23/23 10/08/23 Unknown acetaminophen 325 mg tablet 650 mg PO Q4H PRN Mild Pain (Scale 10/08/23 10/08/23 Unknown (Tylenol) Score 1-4) apixaban 5 mg tablet (Eliquis) 5 mg PO Q12H 10/08/23 10/08/23 Unknown docusate sodium 50 mg tablet 25 mg PO BID 10/08/23 10/08/23 Unknown furosemide 20 PO BID 10/08/23 10/08/23 insulin glargine 100 unit/mL 12 unit SC QAM 10/08/23 10/08/23 Unknown subcutaneous solution (Lantus U-100 Insulin) isosorbide dinitrate 20 BID 10/08/23 10/08/23 magnesium hydroxide 400 mg/5 mL 2,400 mg PO DAILY 10/08/23 10/08/23 Unknown oral suspension (Milk of Magnesia) sennosides 8.6 mg-docusate sodium 1 tab-cap PO DAILY 10/08/23 10/08/23 Unknown 50 mg tablet (Senokot-S) tramadol 50 mg tablet 50 mg PO Q4H PRN Moderate Pain 10/08/23 10/08/23 Unknown (Scale Score 5-6) Active Medications Generic Name Dose Route Start Last Admin Trade Name Freq PRN Reason Stop Dose Admin Apixaban 5 mg 10/08/23 18:00 10/09/23 06:23 Apixaban 5 Mg Tablet PO 11/07/23 17:59 5 mg Q12H YADIRA Administration Atorvastatin Calcium 20 mg 10/09/23 09:00 10/09/23 08:34 Atorvastatin 20 Mg Tab PO 11/08/23 08:59 20 mg QAM YADIRA Administration Clopidogrel Bisulfate 75 mg 10/09/23 09:00 10/09/23 08:33 Clopidogrel Bisulfate 75 Mg Tab PO 11/08/23 08:59 75 mg DAILY YADIRA Administration Pantoprazole Sodium 40 mg/ 10 mls @ 5 mls/min 10/08/23 21:00 10/09/23 08:34 Syringe IV 11/07/23 20:59 5 mls/min BID YADIRA Administration Lactated Ringer's 1,000 mls @ 83 mls/hr 10/09/23 08:15 10/09/23 08:34 Lr IV 10/09/23 20:17 83 mls/hr .Q12H3M YADIRA Administration Insulin Aspart 0 units 10/08/23 17:42 10/09/23 13:01 Insulin Aspart Per Unit Charge SC 11/07/23 17:41 Not Given ACHS YADIRA Isosorbide Dinitrate 20 mg 10/09/23 07:00 10/09/23 12:12 Isosorbide Dinitrate 20 Mg Tab PO 11/08/23 06:59 20 mg BID@0700,1200 YADIRA Administration Metoprolol Succinate 50 mg 10/08/23 18:00 10/09/23 08:34 Metoprolol Succ 50mg Ext Rel Tab PO 11/07/23 17:59 50 mg BID YADIRA Administration Miscellaneous 15 - 30 gm 10/08/23 17:42 10/09/23 12:50 Carbohydrates For Hypoglycemia PO 11/07/23 17:41 15 gm UD PRN Administration Hypoglycemia Protocol Tamsulosin HCl 0.4 mg 10/08/23 21:00 10/08/23 21:52 Tamsulosin Hcl 0.4 Mg Cap PO 11/07/23 20:59 0.4 mg HS YADIRA Administration (2) Constipation Constipation type: unspecified constipation type Qualified Code(s): K59.00 - Constipation, unspecified
--- NOTE | 2023-10-09 16:12 | CT Scan Report ---
ABDOMEN AND PELVIS CT WITH ORAL CONTRAST CT DOSE: 553.29 mGy.cm HISTORY: Abnormal CT. Follow-up. Upper abdominal pain. ?perforation TECHNIQUE: Multiaxial CT images of the abdomen and pelvis were performed following the use of oral co ntrast. A dose lowering technique was utilized adhering to the principles of ALARA. COMPARISON STUDY: Abdomen and pelvis CT 10/08/2023. FINDINGS: Bilateral wedge-shaped consolidative opacities within the lower lobes persist. This favors pulmonary infarcts. No acute fractures identified. The heart remains mildly enlarged. The unenhanced liver, spleen, and adrenal glands are unremarkable. Renal sinus calcifications appear to be vascular. No ureteral calculi. No hydronephrosis. A few bilateral renal hypodense lesions are again noted. The se are incompletely characterized on this noncontrast study but favor cysts. Mild gallbladder wall th ickening with adjacent fat stranding. This is on axial image 85 there is a 9 mm focal defect/perforat ion within the lesser curvature of the gastric wall best seen on image 85. Contrast extends through t his gastric wall defect into the adjacent soft tissues between the pancreatic tail and stomach. There fore, this is consistent with a contained perforation. The gas and contrast-filled perigastric collec tion measures approximately 5 x 2 cm. There is mild surrounding fat stranding. Thickening of the darío anika wall along the lesser sac is again noted. The perforation could be due to an underlying ulcer or gastric mass. Mild fat stranding adjacent to the pancreatic tail which could be reactive. A superimpo sed acute pancreatitis is also have a similar appearance. Mild vascular and extends in the left anter ior pararenal space which is also likely reactive to the gastric perforation. No retroperitoneal lymp hadenopathy. Normal caliber abdominal aorta with moderate calcified plaque. Bladder wall thickening i s noted. There is gas within the bladder lumen from the Rushing catheter which appears in good position . No pelvic free fluid. No pelvic lymphadenopathy. Mild pericolonic fat stranding involving the redun dant sigmoid colon within left side the abdomen on image 132 is likely secondary to the adjacent dar[place] anika perforation. Moderate fecal retention. No dilated loops of bowel to suggest an obstruction. Taylor l appendix. IMPRESSION: 1. Contained gastric perforation as described above. The defect within the lesser curvature of the st omach measures 9 mm and accounts for a 5 x 2 cm perigastric collection. This could be due to an under lying gastric ulcer or possibly gastric mass. Urgent surgical consultation recommended. 2. Fat stranding adjacent to the pancreatic tail, left anterior pararenal space, and adjacent sigmoid colon is likely reactive to the contained perforation. 3. Wedge-shaped opacities within the bilateral lower lobes persist. These favor pulmonary infarcts. 4. Bladder wall thickening again noted. 5. This report was called/faxed to the referring physician following dictation. ACT 112: Negative or not required by law. Electronically signed by: Servando Batres M.D. 10/09/2023 4:11 PM
[2023-10-09] MEDS ORDERED: DEXTROSE 5% 1,000 ML IV SCH (17:30)
--- NOTE | 2023-10-09 17:30 | Communication Note ---
Date of Service: October 09, 2023 CT scan reviewed. NPO. d5 for fluids given hypoglycemia Surgery consulted urgently for review. Patient stable at this time. 1. Contained gastric perforation as described above. The defect within the lesser curvature of the stomach measures 9 mm and accounts for a 5 x 2 cm perigastric collection. This could be due to an underlying gastric ulcer or possibly gastric mass. Urgent surgical consultation recommended. 2. Fat stranding adjacent to the pancreatic tail, left anterior pararenal space, and adjacent sigmoid colon is likely reactive to the contained perforation. 3. Wedge-shaped opacities within the bilateral lower lobes persist. These favor pulmonary infarcts. 4. Bladder wall thickening again noted. 5. This report was called/faxed to the referring physician following dictation.
--- NOTE | 2023-10-09 18:16 | Surgery Consultation ---
Date of Consultation October 09, 2023 Assessment & Plan (1) Gastric perforation: contained posterior gastric wall perforation in high risk patient with ef 20$, PE on a/c ASCAD and CKD. Currently stable. Posterior gastric perforations are rare and more difficult to repair. Given multiple medical problems, recommend transfer to tertiary facility. Transfer to tertiary center for eval and treatment] abx, npo, ppi call with questions or concerns spoke with Dr. Jansen (2) Pulmonary embolism: (3) Acute CHF: (4) CKD (chronic kidney disease), stage III: (5) CAD (coronary artery disease): (6) DM type 2 (diabetes mellitus, type 2): (7) Hypertension: History of Present Illness Attending Physician: Aissatou Jansen MD History of Present Illness Pnt not seen. Called for stat consult for contained posterior gastric perforation. Admitted with urinary retention and constipation following recent hospirtal stay for PE and CHF. CT suggested poss perf, repeat with Oral contrast showed contained posterior gastric wall perforation with abscess. Currently stable and without pain. Allergies Allergy/AdvReac Type Severity Reaction Status Date / Time No Known Allergies Allergy Verified 10/08/23 14:28 Home Medications Medication Instructions Recorded Confirmed Type clopidogrel 75 mg tablet (Plavix) 75 mg PO DAILY 06/05/21 10/08/23 History atorvastatin 20 mg tablet 20 mg PO QAM 09/08/23 10/08/23 History omeprazole 40 mg capsule,delayed 40 mg PO QAM 09/08/23 10/08/23 History release furosemide 20 mg tablet (Lasix) 20 mg PO BID #60 tabs 09/23/23 10/08/23 Rx isosorbide dinitrate 20 mg tablet 20 mg PO BID@0700,1200 #30 tabs 09/23/23 10/08/23 Rx lisinopril 10 mg tablet 10 mg PO BID #30 tabs 09/23/23 10/08/23 Rx magnesium oxide 400 mg (241.3 mg 400 mg PO BID #60 tabs 09/23/23 10/08/23 Rx magnesium) tablet metoprolol succinate 50 mg 50 mg PO BID #30 tabs 09/23/23 10/08/23 Rx tablet,extended release 24 hr polyethylene glycol 3350 17 gram 17 g PO DAILY PRN constipation #30 09/23/23 10/08/23 Rx oral powder packet (Miralax) ea spironolactone 25 mg tablet 25 mg PO QAM #30 tabs 09/23/23 10/08/23 Rx acetaminophen 325 mg tablet 650 mg PO Q4H PRN Mild Pain (Scale 10/08/23 10/08/23 History (Tylenol) Score 1-4) apixaban 5 mg tablet (Eliquis) 5 mg PO Q12H 10/08/23 10/08/23 History docusate sodium 50 mg tablet 25 mg PO BID 10/08/23 10/08/23 History furosemide 20 PO BID 10/08/23 History insulin glargine 100 unit/mL 12 unit SC QAM 10/08/23 10/08/23 History subcutaneous solution (Lantus U-100 Insulin) isosorbide dinitrate 20 BID 10/08/23 History magnesium hydroxide 400 mg/5 mL 2,400 mg PO DAILY 10/08/23 10/08/23 History oral suspension (Milk of Magnesia) sennosides 8.6 mg-docusate sodium 1 tab-cap PO DAILY 10/08/23 10/08/23 History 50 mg tablet (Senokot-S) tramadol 50 mg tablet 50 mg PO Q4H PRN Moderate Pain 10/08/23 10/08/23 History (Scale Score 5-6) Patient History Medical History (Updated 10/09/23 @ 18:11 by Greg Wright DO, FACS) Gastric perforation Abnormal CT of the abdomen CKD (chronic kidney disease), stage III Encounter for pre-operative examination Ischemic cardiomyopathy EF=45% Dyslipidemia Abnormal MRI of head MRI 06/15/20 showed MCA infarcts as well as ring enhancement right posterior lobe. Repeat MRI recommended in 3 months. Depression CAD (coronary artery disease) 2013 - NSTEMI s/p BRUCE to RCA DM type 2 (diabetes mellitus, type 2) History of cerebrovascular accident March 2020; subacute infarct noted to parietal lobe per 06/15/20 MRI Carotid stenosis, bilateral Hypertension Surgical History Hx of endarterectomy (06/28/20) Right Carotid Endarterectomy with Bovine Patch Angioplasty Dr. Arita 06/28/2020 S/P drug eluting coronary stent placement Family History Mother , age 68 from metastatic lung cancer Lung cancer Father No problems noted. 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[employer], 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 Feels Safe at Home: Yes Assistive Devices: Walker Physical Exam Constitutional: WD/WN, vitals as above Results & Data Vital Signs (Past 12 Hours) Vital Signs Temp Pulse Pulse Resp BP Pulse Ox O2 Del Method 10/09/23 15:15 36.5 C 55 L 17 105/66 98 Room Air 10/09/23 14:55 52 L 10/09/23 11:10 36.4 C L 70 17 104/60 95 Room Air 10/09/23 07:17 36.6 C 67 17 103/64 94 Room Air Laboratory Results Laboratory Results - last 24 hr 10/08/23 10/08/23 10/09/23 18:38 21:48 07:42 Sodium 134 L Potassium 4.2 D Chloride 106 Carbon Dioxide 22 Anion Gap 6 BUN 17 Creatinine 1.42 H Est Cr Clr Drug Dosing 53.2 Est GFR ( Amer) 65.4 Est GFR (Non-Af Amer) 56.4 BUN/Creatinine Ratio 12.0 Glucose 79 POC Glucose 85 95 Calcium 8.6 Phosphorus 3.4 Magnesium 2.3 10/09/23 10/09/23 10/09/23 08:15 12:40 13:08 Sodium Potassium Chloride Carbon Dioxide Anion Gap BUN Creatinine Est Cr Clr Drug Dosing Est GFR ( Amer) Est GFR (Non-Af Amer) BUN/Creatinine Ratio Glucose POC Glucose 87 60 L* 73 Calcium Phosphorus Magnesium 10/09/23 17:28 Sodium Potassium Chloride Carbon Dioxide Anion Gap BUN Creatinine Est Cr Clr Drug Dosing Est GFR ( Amer) Est GFR (Non-Af Amer) BUN/Creatinine Ratio Glucose POC Glucose 161 H Calcium Phosphorus Magnesium Diagnostic Findings ct personally reviewed and interpreted and agree with assessment of contained posterior gastric wall perforation. BDOMEN AND PELVIS CT WITH ORAL CONTRAST CT DOSE: 553.29 mGy.cm HISTORY: Abnormal CT. Follow-up. Upper abdominal pain. ?perforation TECHNIQUE: Multiaxial CT images of the abdomen and pelvis were performed following the use of oral contrast. A dose lowering technique was utilized adhering to the principles of ALARA. COMPARISON STUDY: Abdomen and pelvis CT 10/08/2023. FINDINGS: Bilateral wedge-shaped consolidative opacities within the lower lobes persist. This favors pulmonary infarcts. No acute fractures identified. The heart remains mildly enlarged. The unenhanced liver, spleen, and adrenal glands are unremarkable. Renal sinus calcifications appear to be vascular. No ureteral calculi. No hydronephrosis. A few bilateral renal hypodense lesions are again noted. These are incompletely characterized on this noncontrast study but favor cysts. Mild gallbladder wall thickening with adjacent fat stranding. This is on axial image 85 there is a 9 mm focal defect/perforation within the lesser curvature of the gastric wall best seen on image 85. Contrast extends through this gastric wall defect into the adjacent soft tissues between the pancreatic tail and stomach. Therefore, this is consistent with a contained perforation. The gas and contrast-filled perigastric collection measures approximately 5 x 2 cm. There is mild surrounding fat stranding. Thickening of the gastric wall along the lesser sac is again noted. The perforation could be due to an underlying ulcer or gastric mass. Mild fat stranding adjacent to the pancreatic tail which could be reactive. A superimposed acute pancreatitis is also have a similar appearance. Mild vascular and extends in the left anterior pararenal space which is also likely reactive to the gastric perforation. No retroperitoneal lymphadenopathy. Normal caliber abdominal aorta with moderate calcified plaque. Bladder wall thickening is noted. There is gas within the bladder lumen from the Rushing catheter which appears in good position. No pelvic free fluid. No pelvic lymphadenopathy. Mild pericolonic fat stranding involving the redundant sigmoid colon within left side the abdomen on image 132 is likely secondary to the adjacent gastric perforation. Moderate fecal retention. No dilated loops of bowel to suggest an obstruction. Normal appendix. IMPRESSION: 1. Contained gastric perforation as described above. The defect within the lesser curvature of the stomach measures 9 mm and accounts for a 5 x 2 cm perigastric collection. This could be due to an underlying gastric ulcer or possibly gastric mass. Urgent surgical consultation recommended. 2. Fat stranding adjacent to the pancreatic tail, left anterior pararenal space, and adjacent sigmoid colon is likely reactive to the contained perforation. 3. Wedge-shaped opacities within the bilateral lower lobes persist. These favor pulmonary infarcts. 4. Bladder wall thickening again noted. 5. This report was called/faxed to the referring physician following dictation. ACT 112: Negative or not required by law. PG Care Time/CCT Total # of Minutes Spent Total Time Spent with Patient: Total time spent is greater than 50% in coordination of care (as documented) at patient's floor/unit and/or counseling patient: Coding Level of Care Code None Diagnoses Gastric perforation K25.5 Pulmonary embolism I26.99 Acute CHF I50.9 CKD (chronic kidney disease), stage III N18.30 CAD (coronary artery disease) I25.10 DM type 2 (diabetes mellitus, type 2) E11.9 Hypertension I10 Hypertension type: unspecified (7) Hypertension Hypertension type: unspecified Qualified Code(s): I10 - Essential (primary) hypertension
[2023-10-09] MEDS ORDERED: Heparin IV Adult Wt-Based Standard *NO* INITIAL Bolus Protocol IV SCH (18:29)
[2023-10-09] MEDS ORDERED: HYDROmorphone INJ 0.5 MG/0.5 ML SYR IV STA (18:50)
[2023-10-09] MEDS ORDERED: LORazepam 0.5 MG in SYRINGE 0.75 ML IV STA (18:54)
[2023-10-09] MEDS ORDERED: LORazepam 0.5 MG in SYRINGE 0.25 ML IV STA (19:22)
[2023-10-09 20:04] LABS: INR 1.2 (0.9-1.1); Partial Thromboplastin Ratio 1.1; Partial Thromboplastin Time 30.7 Seconds (21.0-31.0); Prothrombin Time 13.3 Seconds (9.0-12.0)
[2023-10-09] MEDS: TAMSULOSIN HCL 0.4 MG CAP PO SCH (21:35)
[2023-10-10] MEDS: HYDROmorphone INJ 0.5 MG/0.5 ML SYR IV PRN ×5 (04:08→20:03)
[2023-10-10 05:55] LABS: Calcium 8.4 mg/dl (8.6-10.3); Creatinine Clr Calc Pharmacy 60.4 ml/min; Est GFR (African American) 76.2 ml/min; Est GFR (Non-African American) 65.8 ml/min; Phosphorus 3.2 mg/dl (2.5-4.9); Potassium 3.8 mmol/L (3.5-5.1)
[2023-10-10] MEDS ORDERED: HEPARIN SODIUM/DEXTROSE 25,000 UNITS/500 ML BAG IV SCH (06:00)
[2023-10-10 06:11] LABS: Partial Thromboplastin Ratio 1.1; Partial Thromboplastin Time 29.7 Seconds (21.0-31.0)
[2023-10-10 06:13] LABS: Hematocrit (blood only) 27.4 % (42.0-52.0); Hemoglobin 8.8 g/dl (14.0-18.0); Mean Corpuscular Hemoglobin 27.6 pg (25.0-34.0); Mean Corpuscular Hgb Conc 32.1 g/dL (32.0-36.0); Mean Corpuscular Volume 85.9 fL (80.0-100.0); Mean Platelet Volume 9.1 fL (9.4-12.4); Platelet Count 206 K/uL (130-400); RDW Standard Deviation 64.6 fL (36.4-46.3); Red Blood Count 3.19 M/uL (4.70-6.10); White Blood Count 11.92 K/ul (4.8-10.8)
[2023-10-10] MEDS ORDERED: HEPARIN SOD (PORCINE) 1000 UNIT/ML IV ONE (06:15)
[2023-10-10] MEDS: PANTOprazole 40 MG in SYRINGE 0 ML IV SCH ×2 (08:26→20:10)
[2023-10-10] MEDS: METOPROLOL SUCC 50MG EXT REL TAB PO SCH ×2 (08:26→20:04)
[2023-10-10 08:27] LABS: Hematocrit (blood only) 27.1 % (42.0-52.0); Hemoglobin 8.7 g/dl (14.0-18.0)
[2023-10-10] MEDS: ATORVASTATIN 20 MG TAB PO SCH (08:27)
[2023-10-10] MEDS: INSULIN ASPART PER UNIT CHARGE SC SCH ×2 (09:50→12:31)
--- NOTE | 2023-10-10 12:21 | Surgery Progress Note ---
Date of Service October 10, 2023 Assessment & Plan (1) Gastric perforation: Plan: 52-year-old male with contained posterior gastric perforation versus pseudocyst. He is currently stable at this time. Posterior gastric wall perforations are very rare and given his history of severe pancreatitis and his lack of details regarding his hospital course, it is possible that he had a cyst gastrostomy placed and it is still patent. Obtain records from prior hospital stay [place] Continue current management otherwise If patient were to decompensate and require any surgical intervention, we would recommend transfer to a tertiary facility as posterior gastric wall perforations are rare and difficult to fix, and the patient has significant medical comorbidities including severe CHF and on blood thinners for recent PE. Surgery will follow peripherally, call with questions or concerns (2) Pancreatic pseudocyst: (3) Ischemic cardiomyopathy: (4) Acute systolic CHF (congestive heart failure): (5) CKD (chronic kidney disease), stage III: (6) Pulmonary embolism: Admission and Anticipated Discharge Date Admission Date: October 08, 2023 Subjective 52-year-old male admitted for urinary retention following recent admission for newly diagnosed PE and uncompensated CHF, most recent LVEF 20 to 25%. Yesterday had a CT scan which likely contained posterior gastric perforation. Would recommend transfer for possible surgical intervention, after discussion with tertiary center, they believe this was a pancreatic pseudocyst. On interview with the patient he does say that he had severe pancreatitis many years ago and spent about 3 months in the hospital in [place] in 2018. He is unsure if they told him he had a pseudocyst or if he had a gastro cystostomy. He is tolerating diet and having no abdominal pain. Physical Exam Constitutional: WD/WN, vitals as above Respiratory: normal respiratory effort, lungs clear to auscultation Cardiovascular: RRR, no murmur, no edema Gastrointestinal (Abdomen): normal bowel sounds, soft, nontender, no hepatosplenomegaly Results & Data Vital Signs (Past 12 Hours) Vital Signs Temp Pulse Pulse Resp BP Pulse Ox O2 Del Method 10/10/23 11:02 36.8 C 63 18 99/56 L 98 Room Air 10/10/23 07:51 64 10/10/23 07:32 36.7 C 66 16 111/57 L 99 Room Air 10/10/23 03:00 36.9 C 67 18 106/63 99 Room Air Laboratory Results Laboratory Results - last 24 hr 10/09/23 10/09/23 10/09/23 12:40 13:08 17:28 WBC RBC Hgb Hct MCV MCH MCHC RDW Std Deviation RDW Coeff of Dione Plt Count MPV PT INR APTT PTT Ratio Sodium Potassium Chloride Carbon Dioxide Anion Gap BUN Creatinine Est Cr Clr Drug Dosing Est GFR ( Amer) Est GFR (Non-Af Amer) BUN/Creatinine Ratio Glucose POC Glucose 60 L* 73 161 H Calcium Phosphorus Magnesium 10/09/23 10/09/23 10/10/23 19:18 21:23 05:22 WBC RBC Hgb Hct MCV MCH MCHC RDW Std Deviation RDW Coeff of Dione Plt Count MPV PT 13.3 H INR 1.2 H APTT 30.7 29.7 PTT Ratio 1.1 1.1 Sodium 134 L Potassium 3.8 Chloride 107 Carbon Dioxide 22 Anion Gap 5 BUN 15 Creatinine 1.25 Est Cr Clr Drug Dosing 60.4 Est GFR ( Amer) 76.2 Est GFR (Non-Af Amer) 65.8 BUN/Creatinine Ratio 12.0 Glucose 123 H POC Glucose 97 Calcium 8.4 L Phosphorus 3.2 Magnesium 2.0 10/10/23 10/10/23 10/10/23 05:23 08:13 08:28 WBC 11.92 H RBC 3.19 L Hgb 8.8 L D 8.7 L Hct 27.4 L 27.1 L MCV 85.9 D MCH 27.6 MCHC 32.1 RDW Std Deviation 64.6 H RDW Coeff of Dione 23.0 H Plt Count 206 MPV 9.1 L PT INR APTT PTT Ratio Sodium Potassium Chloride Carbon Dioxide Anion Gap BUN Creatinine Est Cr Clr Drug Dosing Est GFR ( Amer) Est GFR (Non-Af Amer) BUN/Creatinine Ratio Glucose POC Glucose 128 H Calcium Phosphorus Magnesium 10/10/23 10/10/23 11:58 12:15 WBC RBC Hgb Hct MCV MCH MCHC RDW Std Deviation RDW Coeff of Dione Plt Count MPV PT INR APTT Pending PTT Ratio Pending Sodium Potassium Chloride Carbon Dioxide Anion Gap BUN Creatinine Est Cr Clr Drug Dosing Est GFR ( Amer) Est GFR (Non-Af Amer) BUN/Creatinine Ratio Glucose POC Glucose 60 L* Calcium Phosphorus Magnesium PG Care Time/CCT Total # of Minutes Spent Total Time Spent with Patient: Total time spent is greater than 50% in coordination of care (as documented) at patient's floor/unit and/or counseling patient: Coding Level of Care Code 08831 SUB INP/OBS CARE 235MIN Diagnoses Gastric perforation K25.5 Pancreatic pseudocyst K86.3 Ischemic cardiomyopathy I25.5 Acute systolic CHF (congestive heart failure) I50.21 CKD (chronic kidney disease), stage III N18.30 Pulmonary embolism I26.99
[2023-10-10] MEDS: CARBOHYDRATES FOR HYPOGLYCEMIA PO PRN (12:22)
[2023-10-10] MEDS ORDERED: HYDROmorphone INJ 0.5 MG/0.5 ML SYR IV PRN (12:25)
--- NOTE | 2023-10-10 12:35 | Hospitalist Progress Note ---
Date of Service October 10, 2023 Assessment & Plan (1) Acute urinary retention: (2) Constipation: (3) BRUNA (acute kidney injury): Plan Mr. Bansal is a 52-year-old gentleman with PMH significant for DM type II, ischemic cardiomyopathy, systolic CHF, GERD, CKD stage III, history of CVA, right carotid endarterectomy, CAD, NSTEMI 2014 s/p BRUCE to RCA, depression, anxiety, and other problems listed below who presented to [facility] ED with concerns of abdominal pain and 1 day of no urination. Patient admitted for evaluation of such. Imaging notable for ?perforation, prompting NPO and IV PPI--contrasted image not obtained secondary to BRUNA at this time. GI consult placed to explore possibility of EGD--recommended further imaging to assess area. CT with contrast revealed area concerning for perforation, possibly contained. Surgery Consult suggested transfer. In the process of attempting transfer to [place], Images from 09/25 from [place] were compared and demonstrated similar findings--thus putting a pause on transfer. Further discussion from surgery with patient revealed remote hospitalization with potential intervention. Records pending transmittal for review to assess chronicity of CT findings. #Acute on chronic normocytic Anemia #Chronic mild, normocytic anemia -Baseline at 13~, B12 >1500 09/10, folate 7.26, ferritin 171.2, -Prior labs suggestive of FIFI/chronic anemia of inflammation/disease -No clear signs of bleeding, no pain/no PE findings suggestive of/consistent with 5 point drop. -Hold heparin/eliquis for now -Hemolysis labs this pm -Trend CBC, transfuse <7.0 -Continue IV PPI -Patient declined to be NPO, will follow up on afternoon labs and clinical stability and reassess. -If stable, will resume DOAC -Contingent of labs, heme consult likely if no source identified #Abnormal CT Abdomen -?of psuedocyst/gastrocystostomy iso severe pancreatitis -Surgery following, no acute interventions -Continue diet as tolerated -D[facility]ON sent to [facility] to determine chronicity/urgency of CT findings #Acute urinary retention -Recent Urology visit inpatient 09/10 12/18 acute urinary retention -UA appears clean, concern for component of constipation contribution to acute retention given degree of fecal burden -Continue tamsulosin -PSA likely falsely elevated iso giles placement, will defer ordering at this time -Ensure good bowel regimen #Abdominal pain #Obstipation -Notable fecal burden, covered in stool given attempt at "self-disimpaction" -s/p bisacodyl suppository, if unsuccessful will trial enema -Aggressive bowel regimen #BRUNA on CKDII iso of acute urinary retention, s/p fluids in ED -Hold nephrotoxic agents and renally acting rx (furosemide/lasix/spironolactone), resume when po intake improves/as tolerated #RLS #Cramps -Trial flexeril and reduce opioid use -Trial ropinrole #Hypokalemia -Replace lytes prn #Mild Hyponatremia *stable -Noted since last admission, likely iso constipation, chronic illness , poor intake -FR 1.8L -Trend BMP #Recent Pulmonary Emboli c/b Pulmonary Infarct Pulmonology Consult on 09/13, -Transitioned from warfarin to oral DOAC as OP -Completed robust course of abx -CTA more suggestive of pulm infarct that will likely resolve over time, can cause noninfectious leukocytosis per prior pulm reports -Recommended followup CT scan w/o contrast in 8-12 weeks (plan 11/2023) -CTM, resume eliquis karel #Failure to thrive #ambulatory dysfunction PT/OT Reports not being safe at home CT head: Atherosclerotic calcifications are present in the intracranial segments of the internal carotid arteries. #Chronic heart failure with reduced ejection fraction, initially thought to be acute, but presentation less related to HFrEF #Left ventricular apical thrombus #Ischemic cardiomyopathy, severe coronary artery diease Presented with increasing shortness of breath and lower extremity edema, noted to be hypoxemic on room air ECHO 09/17 with EF 20-25%, severe hypokinesis & Left ventricular apical thrombus discovered in the setting of severe cardiomyopathy Status post cardiac cath 09/22: Three-vessel coronary artery disease with markedly elevated left end-diastolic pressure. Diffuse coronary atherosclerosis but degree of coronary disease disproportionate to degree of systolic dysfunction -Continue plavix, eliquis combo for thrombus/severe CAD -Resume Metoprolol 50mg BID -Resume lisinopril 10 BID, Imdur 20mg BID, spironolactone as able (held iso BRUNA/hypotension) #ASCVD #Prior Stroke -stable CT head -holding plavix will resume when hgb stable #DM type 2 (diabetes mellitus, type 2) Hgb A1c 7.0 on 09/09; at discharge, placed on Lantus 12 units. Relatively hypoglycemic, discontinue insulin DVT: consuelo admit [facility] for further eval of multiple concerns, Admission and Anticipated Discharge Date Admission Date: October 08, 2023 Subjective Patient feels more settled today after discussion. Notes that he feels frustrated because he has been sick for so long and in/out of hospitals. He does not his memory is poor and sometimes he just "doesn't know what happens" and prior hospitalizations are a "mystery" When asking about his pain, he states his pain is more cramping/spasm-like in nature. He does not have any abdominal pain at the moment and is tolerating diet. When asked about bleeding [ noted 5g hgb drop], he states he has not vomited blood or passed blood in his stool--but notes occasional blood when wiping,however, not noted in the last 48 hours. He denies chest pain, orthopnea, nausea/vomiting or other acute concerns Review of Systems Review of Systems: All systems reviewed & are unremarkable except as noted in Subjective Physical Exam Constitutional: WD/WN, vitals as above Respiratory: normal respiratory effort, lungs clear to auscultation Cardiovascular: RRR, no murmur, no edema Gastrointestinal (Abdomen): normal bowel sounds, soft, nontender, no hepatosplenomegaly Results & Data Results & Data Vital Signs (Past 12 Hours) Vital Signs Temp Pulse Pulse Resp BP Pulse Ox O2 Del Method 10/10/23 11:02 36.8 C 63 18 99/56 L 98 Room Air 10/10/23 07:51 64 10/10/23 07:32 36.7 C 66 16 111/57 L 99 Room Air 10/10/23 03:00 36.9 C 67 18 106/63 99 Room Air Laboratory Results Short CBC 10/10/23 10/10/23 Range/Units 05:23 08:13 WBC 11.92 H (4.8-10.8) K/ul Hgb 8.8 L D 8.7 L (14.0-18.0) g/dl Hct 27.4 L 27.1 L (42.0-52.0) % Plt Count 206 (130-400) K/uL BMP 10/10/23 05:22 Sodium 134 L Potassium 3.8 Chloride 107 Carbon Dioxide 22 BUN 15 Creatinine 1.25 Glucose 123 H Calcium 8.4 L Diagnostic Findings Signed by Yohana Collier MD on 09/28/2023 7:12 AM Narrative & Impression PROCEDURE INFORMATION: Exam: CT Abdomen Without Contrast Exam date and time: 09/25/2023 7:27 AM Age: 52 years old Clinical indication: Dorsalgia, unspecified; Left upper quadrant pain; Additional info: Pain in back and left upper quadrant TECHNIQUE: Imaging protocol: Computed tomography of the abdomen without contrast. Radiation optimization: All CT scans at this facility use at least one of these dose optimization techniques: automated exposure control; mA and/or kV adjustment per patient size (includes targeted exams where dose is matched to clinical indication); or iterative reconstruction. REPORTING DATA: Count of CT and Cardiac NM exams in prior 12 months: This patient has received 0 known CTs and 0 known cardiac nuclear medicine studies in the 12 months prior to the current study. COMPARISON: No relevant prior studies available. FINDINGS: Lungs: There are multiple nodules and masses the lung bases with central lucencies. The largest at the left lower lobe measures 6 cm and at the right lung base 5 cm. The possibility of septic emboli, cavitary pneumonia or possibly neoplasia should be considered. Heart: Cardiomegaly is seen Coronary arteries: There is coronary artery calcification Diaphragm: There is a hiatal hernia Liver: No suspicious abnormality is seen within the liver Gallbladder and bile ducts: No calcified gallstones are seen Pancreas: There is pancreatic ductal dilatation measuring to 7 mm. There are flecks of calcification in the pancreas in keeping with chronic pancreatitis Spleen: The spleen is not enlarged Adrenal glands: The adrenal glands are unremarkable Kidneys and ureters: There is no hydronephrosis Stomach and bowel: There is a lobulated 10 cm by 13.4 cm cyst apposed to the medial gastric wall arising from the anterior pancreas. There is a multiloculated oval cyst measuring 14.6 cm in greatest height by 8.6 cm transversely within the left flank paracolic gutter. These would be consistent with pseudocyst formation. The visualized stool and gas pattern is nonspecific Intraperitoneal space: There is no free intraperitoneal air. There is a trace amount of ascites. There is an endovascular coil in the central abdomen Vasculature: There is atheromatous change present Lymph nodes: The retroperitoneal lymph nodes are enlarged Bones/joints: There is mild degenerative change in the spine Soft tissues: Unremarkable. IMPRESSION IMPRESSION: 1. Chronic pancreatitis with pseudocyst formation 2. Multiple nodules and masses at the lung bases. Consider septic emboli Comment: Lung nodules >8mm. As per Fleischner Society guidelines for follow-up and management of multiple pulmonary nodules greater than 8 mm: For patients at low risk (minimal or absent history of smoking and of other known risk factors), recommend follow-up chest CT at 3-6 months and consider followup at 18 - 24 months. For patients at high risk (history of smoking or of other known risk factors), recommend initial follow-up chest CT at 3-6 months, then at 18-24 months. Medications Administered Home Medications Medication Instructions Recorded Confirmed Last Taken clopidogrel 75 mg tablet (Plavix) 75 mg PO DAILY 06/05/21 10/08/23 Unknown atorvastatin 20 mg tablet 20 mg PO QAM 09/08/23 10/08/23 Unknown omeprazole 40 mg capsule,delayed 40 mg PO QAM 09/08/23 10/08/23 Unknown release furosemide 20 mg tablet (Lasix) 20 mg PO BID #60 tabs 09/23/23 10/08/23 Unknown isosorbide dinitrate 20 mg tablet 20 mg PO BID@0700,1200 #30 tabs 09/23/23 10/08/23 Unknown lisinopril 10 mg tablet 10 mg PO BID #30 tabs 09/23/23 10/08/23 Unknown metoprolol succinate 50 mg 50 mg PO BID #30 tabs 09/23/23 10/08/23 Unknown tablet,extended release 24 hr polyethylene glycol 3350 17 gram 17 g PO DAILY PRN constipation #30 09/23/23 10/08/23 Unknown oral powder packet (Miralax) ea spironolactone 25 mg tablet 25 mg PO QAM #30 tabs 09/23/23 10/08/23 Unknown acetaminophen 325 mg tablet 650 mg PO Q4H PRN Mild Pain (Scale 10/08/23 10/08/23 Unknown (Tylenol) Score 1-4) apixaban 5 mg tablet (Eliquis) 5 mg PO Q12H 10/08/23 10/08/23 Unknown furosemide 20 PO BID 10/08/23 10/08/23 insulin glargine 100 unit/mL 12 unit SC QAM 10/08/23 10/08/23 Unknown subcutaneous solution (Lantus U-100 Insulin) isosorbide dinitrate 20 BID 10/08/23 10/08/23 tramadol 50 mg tablet 50 mg PO Q4H PRN Moderate Pain 10/08/23 10/08/23 Unknown (Scale Score 5-6) tamsulosin 0.4 mg capsule 0.4 mg PO HS #30 caps 10/09/23 Unknown Active Medications Generic Name Dose Route Start Last Admin Trade Name Freq PRN Reason Stop Dose Admin Atorvastatin Calcium 20 mg 10/09/23 09:00 10/10/23 08:27 Atorvastatin 20 Mg Tab PO 11/08/23 08:59 20 mg QAM YADIRA Administration Pantoprazole Sodium 40 mg/ 10 mls @ 5 mls/min 10/08/23 21:00 10/10/23 08:26 Syringe IV 11/07/23 20:59 5 mls/min BID YADIRA Administration Isosorbide Dinitrate 20 mg 10/09/23 07:00 10/09/23 12:12 Isosorbide Dinitrate 20 Mg Tab PO 11/08/23 06:59 20 mg BID@0700,1200 YADIRA Administration Metoprolol Succinate 50 mg 10/08/23 18:00 10/10/23 08:26 Metoprolol Succ 50mg Ext Rel Tab PO 11/07/23 17:59 50 mg BID YADIRA Administration Miscellaneous 15 - 30 gm 10/08/23 17:42 10/10/23 12:22 Carbohydrates For Hypoglycemia PO 11/07/23 17:41 30 gm UD PRN Administration Hypoglycemia Protocol Tamsulosin HCl 0.4 mg 10/08/23 21:00 10/09/23 21:35 Tamsulosin Hcl 0.4 Mg Cap PO 11/07/23 20:59 0.4 mg HS YADIRA Administration (2) Constipation Constipation type: unspecified constipation type Qualified Code(s): K59.00 - Constipation, unspecified
[2023-10-10 12:45] LABS: Partial Thromboplastin Ratio 1.1; Partial Thromboplastin Time 29.7 Seconds (21.0-31.0)
[2023-10-10] MEDS: DOCUSATE SODIUM/SENNA 50/8.6MG TAB PO SCH (13:42)
[2023-10-10] MEDS: POLYETHYLENE (MIRALAX) 17 GM PACK PO SCH (13:42)
[2023-10-10 14:52] LABS: Hematocrit (blood only) 27.4 % (42.0-52.0); Hemoglobin 8.9 g/dl (14.0-18.0); Immature Retic Fraction 35.5 % (2.3-15.9); Reticulated Hemoglobin 37.7 pg (28.2-36.6); Reticulocyte % 5.1 % (0.5-2.0); Reticulocytes # 0.16 10^6/uL (0.02-0.10)
[2023-10-10 15:10] LABS: Bilirubin Direct 0.3 mg/dl (0-0.2); Bilirubin,Total 0.6 mg/dl (0.2-1.0); Uric Acid 6.6 mg/dl (2.6-7.2)
[2023-10-10] MEDS: CYCLOBENZAPRINE HCL 10 MG TAB PO PRN (17:16)
[2023-10-10] MEDS: rOPINIRole HCL 0.25 MG TABLET PO SCH (20:04)
[2023-10-10] MEDS: APIXABAN 5 MG TABLET PO SCH (20:05)
[2023-10-10] MEDS: TAMSULOSIN HCL 0.4 MG CAP PO SCH (20:05)
[2023-10-11] MEDS: HYDROmorphone INJ 0.5 MG/0.5 ML SYR IV PRN ×5 (00:11→21:14)
[2023-10-11 06:06] LABS: Basophils # (auto) 0.02 K/uL (0.00-0.20); Basophils % (auto) 0.2 %; Hematocrit (blood only) 29.2 % (42.0-52.0); Hemoglobin 9.4 g/dl (14.0-18.0); Immature Granulocytes # (auto) 0.07 K/uL (0.01-0.20); Immature Granulocytes % (auto) 0.7 %; Lymphocytes # (auto) 2.18 K/uL (1.20-3.40); Mean Corpuscular Hemoglobin 27.7 pg (25.0-34.0); Mean Corpuscular Hgb Conc 32.2 g/dL (32.0-36.0); Mean Corpuscular Volume 86.1 fL (80.0-100.0); Mean Platelet Volume 9.6 fL (9.4-12.4); Monocytes # (auto) 0.65 K/uL (0.11-0.59); Monocytes % (auto) 6.6 %; Neutrophils # (auto) 6.87 K/uL (1.40-6.50); Neutrophils % (auto) 69.5 %; Platelet Count 203 K/uL (130-400); RDW Standard Deviation 71.5 fL (36.4-46.3); Red Blood Count 3.39 M/uL (4.70-6.10); White Blood Count 9.89 K/ul (4.8-10.8)
[2023-10-11 06:22] LABS: BUN Creatinine Ratio 15.8 (10-20); Calcium 8.6 mg/dl (8.6-10.3); Creatinine Clr Calc Pharmacy 77.2 ml/min; Est GFR (African American) 98.7 ml/min; Est GFR (Non-African American) 85.1 ml/min; Potassium 4.2 mmol/L (3.5-5.1)
[2023-10-11 06:38] LABS: Anisocytosis Present; Tear Drop Cells 1+
[2023-10-11] MEDS ORDERED: oxyCODONE HCL IR 5 MG TAB (IMMEDIATE RELEASE) PO PRN (07:16)
--- NOTE | 2023-10-11 07:31 | Hospitalist Progress Note ---
Date of Service October 11, 2023 Assessment & Plan (1) Acute urinary retention: (2) Constipation: (3) BRUNA (acute kidney injury): Plan Mr. Bansal is a 52-year-old gentleman with PMH significant for DM type II, ischemic cardiomyopathy, systolic CHF, GERD, CKD stage III, history of CVA, right carotid endarterectomy, CAD, NSTEMI 2014 s/p BRUCE to RCA, depression, anxiety, and other problems listed below who presented to [facility] ED with concerns of abdominal pain and 1 day of no urination. Patient admitted for evaluation of such. Imaging notable for ?perforation, prompting NPO and IV PPI--contrasted image not obtained secondary to BRUNA at this time. GI consult placed to explore possibility of EGD--recommended further imaging to assess area. CT with contrast revealed area concerning for perforation, possibly contained. Surgery Consult suggested transfer. In the process of attempting transfer to [facility], Images from 09/25 from [facility] were compared and demonstrated similar findings--thus putting a pause on transfer. Further discussion from surgery with patient revealed remote hospitalization with potential intervention. Records pending transmittal for review to assess chronicity of CT findings. Noted anemia on labs 10/09, precipitous drop--received fluids, but not entirely c/w dilutional anemia. No clear signs of bleeding. Labs that have returned also aren't entirely consistent with hemolysis--though retic is elevated. Previous history of notable iron deficiency. Labs are not clear for hemolysis per peripheral smear normal ldh and minimal bili elevation. Concern would be for GI bleed, but no hematemesis and no melena reported. Hgb stable today. #Ambulatory dysfunction -Not safe at home per PT/OT -Discuss options with CM--Home health with [facility] #Acute on chronic normocytic Anemia *stable #Chronic mild, normocytic anemia -Baseline at 13~, B12 >1500 09/10, folate 7.26, ferritin 171.2, -Prior labs suggestive of FIFI/chronic anemia of inflammation/disease -No clear signs of bleeding, no pain/no PE findings suggestive of/consistent with 5 point drop. -Hold heparin/eliquis for now -Hemolysis labs: hemobglobin stable, haptoglobin pending, plan to repeat iron labs given recent FIFI -Trend CBC, transfuse <7.0 -Patient declined to be NPO, will continue to monitor for clinical stability/signs of hemorrhage/acute hemolysis ( retic count notably elevated?) -Continue DOAC/Plavix given recent PE and severe CAD -Contingent of labs, heme consult likely if no source identified or continued drop #Abnormal CT Abdomen -?of psuedocyst/gastrocystostomy iso severe pancreatitis -Surgery following, no acute interventions -Continue diet as tolerated -DAMON sent to [facility] to determine chronicity/urgency of CT findings--pending receipt of results #Acute urinary retention -Recent Urology visit inpatient 09/10 12/18 acute urinary retention -UA appears clean, concern for component of constipation contribution to acute retention given degree of fecal burden -Continue tamsulosin -PSA likely falsely elevated iso giles placement, will defer ordering at this time -Ensure good bowel regimen -Plan to keep in place 1-2 weeks with follow up with Urology #Abdominal pain*improved #Obstipation -Notable fecal burden, covered in stool given attempt at "self-disimpaction" -s/p bisacodyl suppository, if unsuccessful will trial enema -Aggressive bowel regimen #BRUNA on CKDII *resolved iso of acute urinary retention, s/p fluids in ED -Hold nephrotoxic agents and renally acting rx (furosemide/la six/spironolactone), resume when po intake improves/as tolerated #RLS #Cramps -Trial flexeril and reduce opioid use -Trial ropinrole #Hypokalemia -Replace lytes prn #Mild Hyponatremia *stable -Noted since last admission, likely iso constipation, chronic illness , poor intake -FR 1.8L -Trend BMP #Recent Pulmonary Emboli c/b Pulmonary Infarct Pulmonology Consult on 09/13, -Transitioned from warfarin to oral DOAC as OP -Completed robust course of abx -CTA more suggestive of pulm infarct that will likely resolve over time, can cause noninfectious leukocytosis per prior pulm reports -Recommended followup CT scan w/o contrast in 8-12 weeks (plan 11/2023) -CTM, resume eliquis karel #Failure to thrive #ambulatory dysfunction PT/OT Reports not being safe at home CT head: Atherosclerotic calcifications are present in the intracranial segments of the internal carotid arteries. #Chronic heart failure with reduced ejection fraction, initially thought to be acute, but presentation less related to HFrEF #Left ventricular apical thrombus #Ischemic cardiomyopathy, severe coronary artery diease Presented with increasing shortness of breath and lower extremity edema, noted to be hypoxemic on room air ECHO 09/17 with EF 20-25%, severe hypokinesis & Left ventricular apical thrombus discovered in the setting of severe cardiomyopathy Status post cardiac cath 09/22: Three-vessel coronary artery disease with markedly elevated left end-diastolic pressure. Diffuse coronary atherosclerosis but degree of coronary disease disproportionate to degree of systolic dysfunction -Continue plavix, eliquis combo for thrombus/severe CAD -Resume Metoprolol 50mg BID--reduced 25mg bid -Resume lasix 10mg daily -Resume lisinopril 10 BID, Imdur 20mg BID, spironolactone as able (held iso BRUNA/hypotension) #ASCVD #Prior Stroke -stable CT head -Resumed plavix given risk #DM type 2 (diabetes mellitus, type 2) Hgb A1c 7.0 on 09/09; at discharge, placed on Lantus 12 units. Relatively hypoglycemic, discontinue insulin DVT: rosaquis admit to [facility] for further eval of multiple concerns, Admission and Anticipated Discharge Date Admission Date: October 08, 2023 Subjective NAEO Reports feeling ok overall Physical Exam Constitutional: WD/WN, vitals as above Respiratory: normal respiratory effort, lungs clear to auscultation Cardiovascular: RRR, no murmur, no edema Gastrointestinal (Abdomen): normal bowel sounds, soft, nontender, no hepatosplenomegaly Results & Data Results & Data Vital Signs (Past 12 Hours) Vital Signs Temp Pulse Pulse Resp BP Pulse Ox O2 Del Method 10/11/23 03:47 37.1 C 64 18 104/54 L 98 Room Air 10/10/23 23:30 36.7 C 78 20 106/61 98 Room Air 10/10/23 21:59 76 10/10/23 19:41 37.4 C 81 20 111/64 98 Room Air Laboratory Results Short CBC 10/10/23 10/11/23 Range/Units 14:37 05:38 WBC 9.89 (4.8-10.8) K/ul Hgb 8.9 L 9.4 L (14.0-18.0) g/dl Hct 27.4 L 29.2 L (42.0-52.0) % Plt Count 203 (130-400) K/uL BMP 10/11/23 05:38 Sodium 134 L Potassium 4.2 Chloride 105 Carbon Dioxide 25 BUN 16 Creatinine 1.01 Glucose 177 H Calcium 8.6 Liver Function 10/10/23 Range/Units 14:37 Total Bilirubin 0.6 (0.2-1.0) mg/dl Direct Bilirubin 0.3 H (0-0.2) mg/dl Medications Administered Home Medications Medication Instructions Recorded Confirmed Last Taken clopidogrel 75 mg tablet (Plavix) 75 mg PO DAILY 06/05/21 10/08/23 Unknown atorvastatin 20 mg tablet 20 mg PO QAM 09/08/23 10/08/23 Unknown omeprazole 40 mg capsule,delayed 40 mg PO QAM 09/08/23 10/08/23 Unknown release furosemide 20 mg tablet (Lasix) 20 mg PO BID #60 tabs 09/23/23 10/08/23 Unknown isosorbide dinitrate 20 mg tablet 20 mg PO BID@0700,1200 #30 tabs 09/23/23 10/08/23 Unknown lisinopril 10 mg tablet 10 mg PO BID #30 tabs 09/23/23 10/08/23 Unknown metoprolol succinate 50 mg 50 mg PO BID #30 tabs 09/23/23 10/08/23 Unknown tablet,extended release 24 hr polyethylene glycol 3350 17 gram 17 g PO DAILY PRN constipation #30 09/23/23 10/08/23 Unknown oral powder packet (Miralax) ea spironolactone 25 mg tablet 25 mg PO QAM #30 tabs 09/23/23 10/08/23 Unknown acetaminophen 325 mg tablet 650 mg PO Q4H PRN Mild Pain (Scale 10/08/23 10/08/23 Unknown (Tylenol) Score 1-4) apixaban 5 mg tablet (Eliquis) 5 mg PO Q12H 10/08/23 10/08/23 Unknown furosemide 20 PO BID 10/08/23 10/08/23 insulin glargine 100 unit/mL 12 unit SC QAM 10/08/23 10/08/23 Unknown subcutaneous solution (Lantus U-100 Insulin) isosorbide dinitrate 20 BID 10/08/23 10/08/23 tramadol 50 mg tablet 50 mg PO Q4H PRN Moderate Pain 10/08/23 10/08/23 Unknown (Scale Score 5-6) tamsulosin 0.4 mg capsule 0.4 mg PO HS #30 caps 10/09/23 Unknown Active Medications Generic Name Dose Route Start Last Admin Trade Name Freq PRN Reason Stop Dose Admin Apixaban 5 mg 10/10/23 09:00 10/11/23 10:35 Apixaban 5 Mg Tablet PO 11/09/23 08:59 5 mg BID YADIRA Administration Atorvastatin Calcium 20 mg 10/09/23 09:00 10/11/23 09:17 Atorvastatin 20 Mg Tab PO 11/08/23 08:59 20 mg QAM YADIRA Administration Clopidogrel Bisulfate 75 mg 10/10/23 09:00 10/11/23 10:35 Clopidogrel Bisulfate 75 Mg Tab PO 11/09/23 08:59 75 mg QAM YADIRA Administration Cyclobenzaprine HCl 10 mg 10/10/23 12:53 10/10/23 17:16 Cyclobenzaprine Hcl 10 Mg Tab PO 11/09/23 12:52 10 mg Q6H PRN Administration Cramping Hydromorphone HCl 0.25 mg 10/11/23 07:17 10/11/23 09:15 Hydromorphone Inj 0.5 Mg/0.5 Ml Syr IV 10/24/23 12:53 0.25 mg Q6H PRN Administration Pain, if flexeril PO failed Isosorbide Dinitrate 20 mg 10/09/23 07:00 10/09/23 12:12 Isosorbide Dinitrate 20 Mg Tab PO 11/08/23 06:59 20 mg BID@0700,1200 YADIRA Administration Metoprolol Succinate 25 mg 10/11/23 09:00 10/11/23 10:35 Metoprolol Succ 25mg Ext Rel Tab PO 11/10/23 08:59 25 mg BID YADIRA Administration Miscellaneous 15 - 30 gm 10/08/23 17:42 10/10/23 12:22 Carbohydrates For Hypoglycemia PO 11/07/23 17:41 30 gm UD PRN Administration Hypoglycemia Protocol Pantoprazole Sodium 40 mg 10/11/23 09:00 10/11/23 10:35 Pantoprazole 40 Mg Tab PO 11/10/23 08:59 40 mg BID YADIRA Administration Polyethylene Glycol 17 gm 10/10/23 13:00 10/11/23 09:19 Polyethylene (Miralax) 17 Gm Pack PO 11/09/23 12:59 17 gm DAILY YADIRA Administration Ropinirole HCl 0.25 mg 10/10/23 21:00 10/10/23 20:04 Ropinirole Hcl 0.25 Mg Tablet PO 11/09/23 20:59 0.25 mg HS YADIRA Administration Senna/Docusate Sodium 1 tab 10/10/23 13:00 10/11/23 09:17 Docusate Sodium/Senna 50/8.6mg Tab PO 11/09/23 12:59 1 tab QAM YADIRA Administration Tamsulosin HCl 0.4 mg 10/08/23 21:00 10/10/23 20:05 Tamsulosin Hcl 0.4 Mg Cap PO 11/07/23 20:59 0.4 mg HS YADIRA Administration (2) Constipation Constipation type: unspecified constipation type Qualified Code(s): K59.00 - Constipation, unspecified
[2023-10-11] MEDS: DOCUSATE SODIUM/SENNA 50/8.6MG TAB PO SCH (09:17)
[2023-10-11] MEDS: ATORVASTATIN 20 MG TAB PO SCH (09:17)
[2023-10-11] MEDS: POLYETHYLENE (MIRALAX) 17 GM PACK PO SCH (09:19)
[2023-10-11] MEDS: APIXABAN 5 MG TABLET PO SCH ×2 (10:35→21:13)
[2023-10-11] MEDS: PANTOprazole 40 MG TAB PO SCH ×2 (10:35→21:14)
[2023-10-11] MEDS: CLOPIDOGREL BISULFATE 75 MG TAB PO SCH (10:35)
[2023-10-11] MEDS: METOPROLOL SUCC 25MG EXT REL TAB PO SCH ×2 (10:35→21:13)
[2023-10-11] MEDS: rOPINIRole HCL 0.25 MG TABLET PO SCH (21:14)
[2023-10-11] MEDS: TAMSULOSIN HCL 0.4 MG CAP PO SCH (21:14)
[2023-10-12] MEDS: CYCLOBENZAPRINE HCL 10 MG TAB PO PRN (00:17)
[2023-10-12] MEDS ORDERED: PHENAZOPYRIDINE HCL 200 MG TAB PO STA (05:57)
[2023-10-12 06:47] LABS: Appearance Urine Clear (Clear); Bacteria Urine Automated Negative (Negative); Bilirubin Urine Negative (Negative); Blood Urine Negative (Negative); Cast Urine Automated 0 /lpf (0-5); Color Urine Yellow; Epithelial Cell Urine Auto 0-5 /lpf (0-5); Glucose Urine UA 1+ (Negative); Ketones Urine Negative (Negative); Leukocyte Esterase Urine Trace (Negative); Nitrite Urine Negative (Negative); Protein Urine Negative (Negative); RBC Urine Automated 0-4 /hpf (0-4); Urobilinogen Urine Negative (Negative)
[2023-10-12 06:54] LABS: Hematocrit (blood only) 30.7 % (42.0-52.0); Hemoglobin 10.3 g/dl (14.0-18.0); Mean Corpuscular Hemoglobin 28.2 pg (25.0-34.0); Mean Corpuscular Hgb Conc 33.6 g/dL (32.0-36.0); Mean Corpuscular Volume 84.1 fL (80.0-100.0); Mean Platelet Volume 9.6 fL (9.4-12.4); Platelet Count 193 K/uL (130-400); RDW Coefficient of Variation 23.6 % (11.5-14.5); RDW Standard Deviation 72.1 fL (36.4-46.3); Red Blood Count 3.65 M/uL (4.70-6.10); White Blood Count 11.64 K/ul (4.8-10.8)
[2023-10-12 07:11] LABS: BUN Creatinine Ratio 15.4 (10-20); Calcium 8.8 mg/dl (8.6-10.3); Creatinine Clr Calc Pharmacy 73.3 ml/min; Est GFR (African American) 95.2 ml/min; Est GFR (Non-African American) 82.2 ml/min; Magnesium 2.1 mg/dl (1.7-2.4); Phosphorus 2.2 mg/dl (2.5-4.9); Potassium 4.4 mmol/L (3.5-5.1)
[2023-10-12] MEDS: DOCUSATE SODIUM/SENNA 50/8.6MG TAB PO SCH (08:25)
[2023-10-12] MEDS: PANTOprazole 40 MG TAB PO SCH (08:25)
[2023-10-12] MEDS: POLYETHYLENE (MIRALAX) 17 GM PACK PO SCH (08:25)
[2023-10-12] MEDS: METOPROLOL SUCC 25MG EXT REL TAB PO SCH (08:25)
[2023-10-12] MEDS: APIXABAN 5 MG TABLET PO SCH (08:25)
[2023-10-12] MEDS: CLOPIDOGREL BISULFATE 75 MG TAB PO SCH (08:26)
[2023-10-12] MEDS: ATORVASTATIN 20 MG TAB PO SCH (08:26)
[2023-10-12] MEDS: HYDROmorphone INJ 0.5 MG/0.5 ML SYR IV PRN (08:36)
[2023-10-12] MEDS ORDERED: FUROSEMIDE 20 MG TAB PO SCH (09:00)
[2023-10-12] MEDS ORDERED: FUROSEMIDE INJ 20 MG/2 ML VIAL IV SCH (09:00)
[2023-10-12] MEDS: POT PHOSPHATE MONOBASIC W/ SOD TAB PO SCH ×2 (10:34→14:02)
[2023-10-12] MEDS ORDERED: MUPIROCIN 2% OINT 22 GM TUBE EXT SCH (13:00)
[2023-10-12] MEDS ORDERED: DOXYCYCLINE HYCLATE 100 MG CAP PO SCH (13:00)
--- NOTE | 2023-10-12 13:00 | Gastroenterology Progress Note ---
Date of Service October 12, 2023 Assessment & Plan (1) Abnormal CT of the abdomen: Plan: Walled off gastric perf vs. more likely pancreatic pseudocyst near the pancreatic head. Plan OK for discharge from a GI perspective. Will arranged OP EGD/EUS. Admission and Anticipated Discharge Date Admission Date: October 08, 2023 Supervising Physician Co-Signing Physician Notes Attending attestation I have seen, examined this patient, and agree with the findings and above by our mid-level provider CRISTINA Bee, with the following additions: patient admitted with urinary retention and found to have abnormal Gastric imaging. 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 He is asymptomatic, no pain, fevers, early satiety, or other issues consistent with or concerning for cyst complications. Can follow up with interventional GI as outpt for follow up for EUS. Subjective 52 yr old male presented on 10/08 for abd pain and urine retention. Pain is resolved. Incidental finding of what appears to be a walled off gastric perforation on non contrast CT and again on oral contrast CT. Pt is able to eat/drink and denies any abdominal pain, nausea or vomiting. OP records were reviewed: CT w IV or contrast earlier this morning in the [employer] system suggests a cystic mass originates from the head of the pancreas. Pt tells us that he has a hx of prior pancreatitis though not recent. Review of Systems Review of Systems: ROS: Gen: Denies weakness, fevers, weight loss Eyes: No eye redness, or pain, no recent vision changes Resp: No SOB, no cough Cardio: No palpitations/irregular beats, no chest pain GI: No abdominal pain, no nausea/vomiting : Denies pain on urination Skin: No jaundice, itching or new rashes Physical Exam Constitutional: Thin. Awake, alert, oriented. ENMT: external ear and nose normal, oropharynx normal Neck: trachea midline, no thyromegaly Respiratory: normal respiratory effort, lungs clear to auscultation Cardiovascular: RRR, no murmur, no edema Gastrointestinal (Abdomen): normal bowel sounds, soft, nontender, no hepatosplenomegaly very thin Skin: no rashes, warm and dry Neurologic: PERRL, EOMI, accommodation nl, no face palsy, no dysarthria Psychiatric: A+Ox3, euthymic affect Lymphatic: no cervical or axillary lymphadenopathy Results & Data Vital Signs (Past 12 Hours) Vital Signs Temp Pulse Pulse Resp BP BP Pulse Ox 10/12/23 11:39 36.7 C 73 17 100/61 98 10/12/23 07:55 36.7 C 61 18 134/71 99 10/12/23 07:12 65 10/12/23 04:23 36.5 C 70 18 122/68 97 O2 Del Method 10/12/23 11:39 Room Air 10/12/23 07:55 Room Air 10/12/23 07:12 10/12/23 04:23 Room Air Laboratory Results WBC 11.6, Hb 10.3 Hct 36, plts 193 Diagnostic Findings WBC 11.6, Hb 10.3, Hct 34, Plta 193, Na 135, K 4.4, Cl 104, CO2 27, BUN 16, Cr 1.04, plts 179.
--- NOTE | 2023-10-12 16:03 | Discharge Summary ---
Discharge Summary Date of Service October 12, 2023 Notes For Next Care Provider Urology follow up for void trial GI follow up given area of concern of CT ABD--psuedocyst v cyst gastostomy? PCP follow up for general health--DM monitoring, discontinue insulin given hypoglycemia CHF follow up medication mgmt--multiple medications held 2/2 hypotension Medication Changes From Visit Doxycycline 100mg BID x 7 days Topical mupirocin to penile glans Hold Lisinopril until told to resume Hold Spironolactone until told to resume Reduced Furosemide to 10mg daily Reduced Metoprolol to 25mg twice daily Start ropinrole 0.25 qhs Admission HPI Per Admitting Provider Mr. Bansal is a 52-year-old gentleman with PMH significant for DM type II, ischemic cardiomyopathy, systolic CHF, GERD, CKD stage III, history of CVA, right carotid endarterectomy, CAD, NSTEMI 2014 s/p BRUCE to RCA, depression, anxiety, and other problems listed below who presented to [facility] ED with concerns of abdominal pain and 1 day of no urination. Patient discharge on 09/23 to [facility] rehab for which he stayed approximately 1 week. He notes intermittent issues with strained urination, as well as difficulties with constipation. After getting settled at home, he notes issues with transportation and failure to make follow up appointments; however, he endorses compliance with medications (though it took about 3-4 days after discharge from [facility] to get medications from pharmacy due to transport issues). He received assistance from home health to fill his medications. He denies chest pain, orthopnea, edema, WELSH, or other acute concerns. Upon arrival to ED, labs revealed persistent leukocytosis, stable anemia, hypokalemia, gap acidosis 15, and BRUNA to 1.62. BNP 1340 (notably decreased from 3000 last admission). UA negative for infection. Exam per ED provider revealed extremely distended bladder to palpation, subsequently resolved with giles placement and return of over 1.2L urine. Imaging concerning for ?perforated gastric ulcer, but limited given lack of contrast. EKG sinus tachy ED interventions: 1L NS Patient to be admitted to med/surg tele for further evaluation of constipation, urinary retention and exploration of findings on imaging. Admission Exam Per Admitting Provider Constitutional: patient evaluated in ED, laying flat, covered on stretcher, conversational--limited insight? Respiratory: normal respiratory effort, lungs clear to auscultation Cardiovascular: tachycardic, no murmur ; no peripheral edema Gastrointestinal (Abdomen): mild tenderness in epigastrium Principal Dx & Hospital Course #1 = Principal Diagnosis (1) Acute urinary retention: (2) Constipation: (3) BRUNA (acute kidney injury): Plan Mr. Bansal is a 52-year-old gentleman with PMH significant for DM type II, ischemic cardiomyopathy, systolic CHF, GERD, CKD stage III, history of CVA, right carotid endarterectomy, CAD, NSTEMI 2014 s/p BRUCE to RCA, depression, anxiety, and other problems listed below who presented to [facility] ED with concerns of abdominal pain and 1 day of no urination. Patient admitted for evaluation of such. Imaging notable for ?perforation, prompting NPO and IV PPI--contrasted image not obtained secondary to BRUNA at this time. GI consult placed to explore possibility of EGD--recommended further imaging to assess area. CT with contrast revealed area concerning for perforation, possibly contained. Surgery Consult suggested transfer. In the process of attempting transfer to [place], Images from 09/25 from [place] were compared and demonstrated similar findings--thus putting a pause on transfer. Further discussion from surgery with patient revealed remote hospitalization with potential intervention. Records pending transmittal for review to assess chronicity of CT findings. Noted anemia on labs 10/09, precipitous drop--received fluids, but not entirely c/w dilutional anemia. No clear signs of bleeding. Labs that have returned also aren't entirely consistent with hemolysis--though retic is elevated. Previous history of notable iron deficiency. Labs are not clear for hemolysis per peripheral smear normal ldh and minimal bili elevation. Concern would be for GI bleed, but no hematemesis and no melena reported. Hgb stable today/improved on discharge. Patient adamant against rehab. Discussed risks of safety at home. Discussed Home health services and options. Encouraged patient to keep appointments. OP Urology visit coordinated with PA. #Penile irritation -Ching with discharge at tip of penis near giles insertion site -Apply muproprion QID, Doxy BID x 7 days, giles management -No fevers, UA clean #Ambulatory dysfunction -Not safe at home per PT/OT; refused rehab -Discuss options with CM--Home health with [facility] #Acute on chronic normocytic Anemia *stable #Chronic mild, normocytic anemia -Baseline at 13~, B12 >1500 09/10, folate 7.26, ferritin 171.2, -Prior labs suggestive of FIFI/chronic anemia of inflammation/disease -No clear signs of bleeding, no pain/no PE findings suggestive of/consistent with 5 point drop. -Hold heparin/eliquis for now -Hemolysis labs: hemobglobin stable, haptoglobin pending, plan to repeat iron labs given recent FIFI -Trend CBC, transfuse <7.0 -Patient declined to be NPO, will continue to monitor for clinical stability/signs of hemorrhage/acute hemolysis ( retic count notably elevated?) -Continue DOAC/Plavix given recent PE and severe CAD -OP lab monitoring recommended #Abnormal CT Abdomen -?of psuedocyst/gastrocystostomy iso severe pancreatitis -Surgery following, no acute interventions -Continue diet as tolerated -DAMON sent to [facility] to determine chronicity/urgency of CT findings--pending receipt of results -OP follow up with GI to be arranged for follow up #Acute urinary retention -Recent Urology visit inpatient 09/10 12/18 acute urinary retention -UA appears clean, concern for component of constipation contribution to acute retention given degree of fecal burden -Continue tamsulosin -PSA likely falsely elevated iso giles placement, will defer ordering at this time -Ensure good bowel regimen -Plan to keep in place 1-2 weeks with follow up with Urology #Abdominal pain*improved #Obstipation -Notable fecal burden, covered in stool given attempt at "self-disimpaction" -s/p bisacodyl suppository, if unsuccessful will trial enema -Aggressive bowel regimen; encouraged at home #BRUNA on CKDII *resolved iso of acute urinary retention, s/p fluids in ED -Hold nephrotoxic agents and renally acting rx (furosemide/lasix/spironolactone), resume when po intake improves/as tolerated #RLS #Cramps -Trial ropinrole, prescription sent #Hypokalemia -Replace lytes prn #Mild Hyponatremia *stable -Noted since last admission, likely iso constipation, chronic illness , poor intake -FR 1.8L -Trend BMP #Recent Pulmonary Emboli c/b Pulmonary Infarct Pulmonology Consult on 09/13, -Transitioned from warfarin to oral DOAC as OP -Completed robust course of abx -CTA more suggestive of pulm infarct that will likely resolve over time, can cause noninfectious leukocytosis per prior pulm reports -Recommended followup CT scan w/o contrast in 8-12 weeks (plan 11/2023) -CTM, resume eliquis karel #Failure to thrive #ambulatory dysfunction PT/OT Reports not being safe at home CT head: Atherosclerotic calcifications are present in the intracranial segments of the internal carotid arteries. #Chronic heart failure with reduced ejection fraction, initially thought to be acute, but presentation less related to HFrEF #Left ventricular apical thrombus #Ischemic cardiomyopathy, severe coronary artery diease Presented with increasing shortness of breath and lower extremity edema, noted to be hypoxemic on room air ECHO 09/17 with EF 20-25%, severe hypokinesis & Left ventricular apical thrombus discovered in the setting of severe cardiomyopathy Status post cardiac cath 09/22: Three-vessel coronary artery disease with markedly elevated left end-diastolic pressure. Diffuse coronary atherosclerosis but degree of coronary disease disproportionate to degree of systolic dysfunction -Continue plavix, eliquis combo for thrombus/severe CAD -Resume Metoprolol 50mg BID--reduced 25mg bid -Resume lasix 10mg daily -Resume lisinopril 10 BID, Imdur 20mg BID, spironolactone as able (held iso BRUNA/hypotension) #ASCVD #Prior Stroke -stable CT head -Resumed plavix given risk #DM type 2 (diabetes mellitus, type 2) Hgb A1c 7.0 on 09/09; at discharge, placed on Lantus 12 units. Relatively hypoglycemic, discontinue insulin, follow up OP for management of DM iso poor nutritional status On day of discharge Discharge Exam Constitutional WD/WN, vitals as above Respiratory normal respiratory effort, lungs clear to auscultation Cardiovascular RRR, no murmur, no edema Gastrointestinal (Abdomen) normal bowel sounds, soft, nontender, no hepatosplenomegaly Urine clear in giles; chaffing noted at tip of penis/opening of urethra where giles rubbing,discharge noted Neurologic PERRL, EOMI, accommodation nl, no face palsy, no dysarthria Updated Medication List Medication Instructions Recorded Confirmed Type clopidogrel 75 mg tablet (Plavix) 75 mg PO DAILY 06/05/21 10/08/23 History atorvastatin 20 mg tablet 20 mg PO QAM 09/08/23 10/08/23 History omeprazole 40 mg capsule,delayed 40 mg PO QAM 09/08/23 10/08/23 History release isosorbide dinitrate 20 mg tablet 20 mg PO BID@0700,1200 #30 tabs 09/23/23 10/08/23 Rx lisinopril 10 mg tablet 10 mg PO BID #30 tabs 09/23/23 10/08/23 Rx spironolactone 25 mg tablet 25 mg PO QAM #30 tabs 09/23/23 10/08/23 Rx acetaminophen 325 mg tablet 650 mg PO Q4H PRN Mild Pain (Scale 10/08/23 10/08/23 History (Tylenol) Score 1-4) apixaban 5 mg tablet (Eliquis) 5 mg PO Q12H 10/08/23 10/08/23 History furosemide 20 PO BID 10/08/23 History insulin glargine 100 unit/mL 12 unit SC QAM 10/08/23 10/08/23 History subcutaneous solution (Lantus U-100 Insulin) isosorbide dinitrate 20 BID 10/08/23 History tramadol 50 mg tablet 50 mg PO Q4H PRN Moderate Pain 10/08/23 10/08/23 History (Scale Score 5-6) tamsulosin 0.4 mg capsule 0.4 mg PO HS #30 caps 10/09/23 Rx doxycycline hyclate 100 mg capsule 100 mg PO BID #13 caps 10/12/23 Rx furosemide 20 mg tablet (Lasix) 10 mg (1/2 x 20 mg) PO DAILY #60 10/12/23 10/08/23 Rx tabs metoprolol succinate 50 mg 25 mg (1/2 x 50 mg) PO BID #30 tabs 10/12/23 Rx tablet,extended release 24 hr mupirocin 2 % topical ointment 1 applic EXT QID #22 grams 10/12/23 Rx polyethylene glycol 3350 17 gram 17 g PO DAILY PRN constipation #30 10/12/23 Rx oral powder packet (Miralax) ea ropinirole 0.25 mg tablet 0.25 mg PO HS #30 tabs 10/12/23 Rx sennosides 8.6 mg-docusate sodium 1 tab PO QAM #30 tabs 10/12/23 Rx 50 mg tablet (Senokot-S) Hospital Stay Data Consultations 10/08/23 14:21 ED Decision to Admit Stat 10/08/23 19:04 Consult Gastroenterology Routine 10/09/23 17:26 Consult General Surgery Stat 10/09/23 18:15 Consult Behavioral Health Liaison Routine Diagnostic Imagining Performed 10/08/23 14:21 CT abd pelvis wo con Stat 10/08/23 15:03 CT head/brain wo con Stat 10/09/23 13:11 CT abd pelvis oral con only Urgent Pending Results Patient Have Any Pending Studies at Discharge: No Discharge Instructions Given to Patient (Per Discharging Provider) You were admitted for urinary retention and acute constipation. A giles was placed and follow up with Urology is being arranged. If was noted on imaging that you have an area near your stomach and pancreas that is likely chronic given your ongoing stability. GI will arrange an outpatient EGD to evaluate in the further. You experienced some irritation at the catheter site. Please continue mupirocin ointment at the tip of your penis 4 times a day until follow up with Urology. You were started on doxycyline 100mg twice a day for cellulitis/skin irritation of that area. You will complete a 7 day course. Please stop insulin and follow up with primary care--it was noted that you had relative low sugars and A1C Primary Care Provider 10/15 11:20am with Dr Ríos at [facility] Urology will arrange follow up with you Gastrology will arrange to follow up with you You will also need a CHF Heart Failure Nurse Follow up Your pressures were noted to be lower in the 90s-100s during this admission Here are the following changes: Hold Lisinopril until told to resume Hold Spironolactone until told to resume Reduced Furosemide to 10mg daily Reduced Metoprolol to 25mg twice daily Continue your plavix, atorvastatin, and other medications as directed. Home Health Attestation I certify that this patient is under my care and that I, or a physicians lpn or medical assistant working with me, had a face to-face encounter that meets the home health [id number] encounter requirements with this patient. The encounter with the patient was in whole, or in part, for the following medical condition, which is the primary reason for home health care (list medical condition): I certify that, based on my findings, the following services are medically necessary home health services: My clinical findings support the need for the above services because: Further, I certify that my clinical findings support that this patient is homebound (i.e. absences from home require considerable and taxing effort and are for medical reasons or uatsdin services or infrequently or of short duration when for other reasons) because: Certification for Home Health Services: Based on the above findings, I certify that this patient is confined to the home and needs intermittent residential care, physical therapy and/or speech therapy or continues to need occupational therapy. The patient is under my care, and I have initiated the establishment of the plan of care. This patient will be followed by a physician who will periodically review the plan of care. Total Time Total Time Spent Total Time Spent (In Minutes): 45
--- NOTE | 2023-10-14 14:52 | Coding Query ---
CODING QUERY To promote full compliance with coding requirements relating to patient care, provider participation is requested in all cases of access assoc uncertainty. Please assist us with the question(s) below: Coding Question(s): The Discharge Summary documents, " Penile irritation -Ching with discharge at tip of penis near giles insertion site", and also, " You experienced some irritation at the catheter site. Please continue mupirocin ointment at the tip of your penis 4 times a day until follow up with Urology. You were started on doxycyline 100mg twice a day for cellulitis/skin irritation of that area. You will complete a 7 day course". Please specify below, in your clinical opinion, regarding Penile Irritation, and Cellulitis, at the tip of penis near giles insertion site: ( ) Penile Irritation and Cellulitis is from complication of the Giles Catheter placed in the ER during admission ( ) Penile Irritation and Cellulitis is from complication of Giles Catheter placed before this admission ( x ) Penile Irritation and Cellulitis is NOT related to or due to Giles Catheter ( ) Other: Please Specify Physician's Response(s): Thank you Mahsa Beaver Principal Diagnosis: "that condition established after study, to be chiefly responsible for occasioning the admission of the patient to the hospital for care." Co-Existing Principal Diagnosis: "when two or more diagnoses equally meet the criteria for principal diagnosis as determined by the circumstances of admission, diagnostic work up, and/or therapy provided, and the Alphabetic Index, Tabular List, or another coding guideline does not provide sequencing direction, any one of the diagnoses may be sequenced first." "When the physician has documented what appears to be a current diagnosis in the body of the record, but has not included the diagnosis in the final diagnostic statement, the physician should be asked whether the diagnosis should be added." (Source [facility]oding [facility] 2 QTR90. p3-4) DWAIN
--- NOTE | 2023-10-14 14:55 | Coding Query ---
CODING QUERY To promote full compliance with coding requirements relating to patient care, provider participation is requested in all cases of shot examiner uncertainty. Please assist us with the question(s) below: Coding Question(s): There is documentation in the record, as on the Discharge Summary, with the abbreviation "iso". Please specify below, the meaning of iso: ( ) international standards organization ( ) isocenter ( ) isoenzyme ( x ) Other: Please Specify__in setting of Physician's Response(s): Thank you Mahsa Beaver Principal Diagnosis: "that condition established after study, to be chiefly responsible for occasioning the admission of the patient to the hospital for care." Co-Existing Principal Diagnosis: "when two or more diagnoses equally meet the criteria for principal diagnosis as determined by the circumstances of admission, diagnostic work up, and/or therapy provided, and the Alphabetic Index, Tabular List, or another coding guideline does not provide sequencing direction, any one of the diagnoses may be sequenced first." "When the physician has documented what appears to be a current diagnosis in the body of the record, but has not included the diagnosis in the final diagnostic statement, the physician should be asked whether the diagnosis should be added." (Source Coding [facility] 2 QTR90. p3-4) DWAIN
== END 2023-10-12 15:35 | disposition home health service (06) | DRG 391 ==
LOC: ED 12:50 → EDINP 14:49 → 2N 17:35

== ENCOUNTER 2024-03-13 15:09 | Inpatient (IN) ==
--- OUTSIDE RECORDS SUMMARY | 2024-03-13 15:16 | External Medical Summary | Summary of Care ---
Author Name Unknown Organization [facility] Address [address] [facility] [place] [address] Phone [phone] Care Team Providers Care Agricultural Equipment Design Engineer Name Role Phone Pedro Pablo Gaspar MD Primary Care Provider [phone] Reason for Visit * Reason Onset Date Comments Information 03/08/2024 Encounter Details Date Type Department Care Team (Late st Contact Info) Description 03/08/2024 Telephone Cardiology, [facility] [address] [place] [id number] [place], [address] [place] [address] Information Allergies No known active allergiesdocumented as of this encounter (statuses as of 03/09/2024) Medications Medication Sig Dispensed Refills Start Date End Date Status ONETOUCH VERIO STRP 0 03/22/2020 Activ e Lancets (ONETOUCH DELICA PLUS [id number]) MISC 0 03/22/2020 Active FreeStyle Yulissa 2 [place] DeviceIndications:T ype 2 diabetes mellitus with hemoglobin A1c goal of less than 7.0% ([facility]) Use as directed. 0 03/07/2021 Active Doxycycline Hyclate 100 MG Oral Capsule Take 1 Capsule by mouth in the morning and 1 Capsule before bedtime. 0 10/12/2023 Active Mupirocin 2 % External Ointment (Bactroban) Apply topically to affected area 2 times a day. 0 10/12/2023 Active Furosemide 20 MG Oral Tablet (Lasix) Take 0.5 Tablets by mouth in the morning. 0 09/30/2023 Active Tamsulosin HCl 0.4 MG Oral Capsule (Flomax)Indications :Urinary retention,History of pulmonary embolism Take 1 Capsule by mouth in the morning. 30 Capsule 11/23/2023 Active Spironolactone 25 MG Oral Tablet (Aldactone)Indicati ons:Chronic systolic heart failure (HCC) Take 1 Tablet by mouth in the morning. 30 Tablet 11/23/2023 Active Omeprazole 40 MG Oral Capsule Delayed Release (PriLOSEC) Take 1 Capsule by mouth in the morning. 1 hour before the first meal of the day. 90 Capsule 11/23/2023 Active Metoprolol Succinate ER 25 MG Oral Tablet Extended Release 24 Hour (toPROL XL)Indications:Ski Edge Painter edie systolic heart failure (HCC) Take 1 Tablet by mouth 2 times a day. 60 Tablet 11/23/2023 Active metFORMIN HCl ER 500 MG Oral Tablet Extended Release 24 Hour (Glucophage XR) Take 2 Tablets by mouth in the morning. 60 Tablet 11/23/2023 Active Lisinopril 10 MG Oral Tablet (Prinivil)Indicatio ns:Type 2 diabetes mellitus with hemoglobin A1c goal of less than 7.0% ([facility]),HTN, goal below 130/80 Take 1 Tablet by mouth 2 times a day. 60 Tablet 11/23/2023 Active Clopidogrel Bisulfate 75 MG Oral Tablet (pLAVix)Indications :Old [place] (myocardial infarction),History of CVA (cerebrovascular accident) TAKE 1 TABLET BY MOUTH EVERY DAY IN THE MORNING 90 Tablet 11/23/2023 Active Atorvastatin Calcium 20 MG Oral Tablet (Lipitor)Indication s:Dyslipidemia TAKE 1 TABLET BY MOUTH EVERY DAY IN THE MORNING 90 Tablet 11/23/2023 Active Apixaban 5 MG Oral Tablet (Eliquis) Take 1 Tablet by mouth 2 times a day. 60 Tablet 2023 Active rOPINIRole HCl 0.25 MG Oral Tablet (Requip) One tablet daily at bedtime 30 Tablet 12/24/2023 Active FreeStyle Yulissa 2 Sensor Use as directed. Use as directed to check blood sugar 3 Each 2 01/13/2024 Active Empagliflozin 10 MG Oral Tablet (Jardiance)Indicati ons:Type 2 diabetes mellitus with hemoglobin A1c goal of less than 7.0% ([facility]) Take 1 Tablet by mouth in the morning. 30 Tablet 2 01/18/2024 Active LORazepam 0.5 MG Oral Tablet (Ativan) Take 1 Tablet by mouth every 6 hours as needed for Anxiety. Takes as needed 0 Active Sertraline HCl 25 MG Oral Tablet (Zoloft) Take 1 Tablet by mouth in the morning. 0 Active documented as of this encounter (statuses as of 03/09/2024) Active Problems Problem Noted Date Diagnosed Date Preoperative general physical examination 2023 Protein-calorie malnutrition 10/15/2023 Depression with anxiety 10/14/2023 History of pulmonary embolism 10/14/2023 Adult failure to thrive 10/14/2023 Ischemic cardiomyopathy 10/14/2023 Stage 3a chronic kidney disease 08/29/2022 Complex regional pain syndrome type 1 affecting both hands 09/21/2020 History of right-sided carotid endarterectomy Gastroesophageal reflux disease without esophagi tis 07/06/2020 Type 2 diabetes mellitus with diabetic polyneuro hanna 06/05/2020 Hemiplegia, post-stroke 05/04/2020 HTN, goal below 130/80 03/26/2020 Old [place] (myocardial infarction) 03/26/2020 Dyslipidemia 03/26/2020 Tobacco use disorder 03/26/2020 History of CVA (cerebrovascular accident) 2019 Type 2 diabetes mellitus wit h hemoglobin A1c goal of less than 7.0% 03/26/2020 Chronic systolic heart failure 03/26/2020 documented as of this encounter (statuses as of 03/09/2024) Resolved Problems Problem Noted Date Diagnosed Date Resolved Date ETD (Eustachian tube dysfunction), bilateral 2 08/29/2022 GÓMEZ (generalized anxiety disorder) 05/08/2021 10/14/2023 Moderate episode of recurren t major depressive disorder 05/08/2021 10/14/2023 MEDICATION USE AGREEMENT 12/14/2020 Atherosclerotic heart diseas e of [place] coronary artery with other forms of angina pectoris 05/04/2020 08/08/2020 Adjustment disorder with depressed mood 03/26/2020 05/08/2021 Bilateral carotid artery stenosis 03/26/2020 07/06/2020 documented as of this encounter (statuses as of 03/09/2024) Immunizations Name Administration Dates Next Due COVID-19 mRNA, LNP-s, No Pre serve, 2-Dose Series (Pfizer) 04/06/2021,03/16/2021 Hepatitis B, 20+ yrs 12/14/2020,05/04/2020 Pneumococcal Polysaccharide PPV23 (Pneumovax) 10/16/2014 Seasonal Influenza, PF, 6 M & above, IM , (FluLaval or Fluzone) 10/15/2023,08/29/2022,08/14/2021,08/27 TDAP (age 10 and older)(Boostrix) 05/04/2020 documented as of this encounter Social History Tobacco Use Types Packs/Day Years Used Date Smoking Tobacco: Every Day Cigarettes Smokeless Tobacco: Former Chew Alcohol Use Standard Drinks/Week Comments Yes 0 (1 standard drink = 0.6 oz pur e alcohol) ocasionally AUDIT-C Answer Date Recorded Frequency of Alcohol Consumption Never 05/04/2020 Average Number of Drinks Not on file 020 Frequency of Binge Drinking Not on file 04/16 PHQ-2 Answer Date Recorded PHQ Adult Total Score 0 11/10/2023 Hunger Vital Sign Answer Date Recorded Within the past 12 months, y ou worried that your food would run out before you got the money to buy more. Never true 11/10/20 23 Within the past 12 months, t he food you bought just didn't last and you didn't have money to get more. Never true 11/10/2023 Sex and Gender Information Value Date Recorded Sex Assigned at Not on file Gender Identity Not on file Sexual Orientation Not on file Job Start Date Occupation Industry Not on file Not on file Not on file documented as of this encounter Miscellaneous Notes * Telephone Encounter - Whitney Weber LPN - 03/09/2024 9:29 AM EDT Faxed 01/29/24 office visit note * Telephone Encounter - Whitney Weber LPN - 03/08/2024 3:31 PM EDT [facility] calling Pt having TURP on 03/24/24 at [facility] with [facility] Asking if he can hold Eliquis 48 hours prior to surgery. documented in this encounter Plan of Treatment Upcoming Encounters Date Type Department Care Team (Late st Contact Info) Description 04/22/2024 9:00 AM EDT Office Visit Gastroenterology [address] [place] [address] Ayala Pacheco CRNP [address] [place] [address] Health Maintenance Due Date Last Done Comments DISCUSS TOBACCO CESSATION (REFER TO SMARTSET #1706) 1970 HIV Screening 1985 Hepatitis C Screening 1988 Pneumococcal Vaccine: Pediatrics (0 to 5 Years) and At-Risk Patients (6 to 64 Years) (2 of 2 - PCV) 10/16/2015 10/16/2014 Cologuard 2015 Colonoscopy 2015 Colorectal Cancer Screening 2015 Fecal Occult Blood Test 2015 Sigmoidoscopy 2015 Zoster Vaccines (1 of 2) 2020 Hepatitis B (3 of 3 - 19+ 3-dose series) 02/08/2021 12/14/2020, 05/04/2020 Diabetic Foot Exam 03/26/2021 03/26/2020 Diabetic Eye Exam 07/07/2023 07/07/2022, , 01/28/2021, Additional history exists COVID-19 Vaccine ( season) 2023 04/06/2021, 03/16/2021 HbA1c 07/17/2024 01/15/2024, 08/16, 02/11/2022, Additional history exists GFR 08/05/2024 02/03/2024, 03/0 11/2023, 10/12/2023, Additional history exists CKD PHOS USE SMARTSET 57323 01/14/2025 01/15/2024, 1 12/12/2022 Albumin/Creatinine Ratio 01/26/20252 024, 08/29/2022, 12/14/2020 CKD HGB USE SMARTSET 42062 02/02/202502/02, 02/03/2024, 01/15/2024, Additional history exists DTaP,Tdap,and Td Vaccines (2 - Td or Tdap) 05/04/2030 05/04/2020 Influenza Vaccine (FLU shot) Completed , 08/29/2022, 08/14/2021, Additional history exists GARDASIL-HPV IMMUNIZATION SERIES Aged Out No longer eligible based on patient's age to complete this topic MENINGOCOCCAL (MENACTRA/MENVEO) Aged Out No longer eligible based on patient's age to complete this topic documented as of this encounter Medical Devices Not on filedocumented as of this encounter Care Teams Agricultural Equipment Design Engineer Relationship Specialty Start Date End Date Pedro Pablo Gaspar MD [address] [facility] [place] [address] PCP - General Family Medicine 10/22/20 documented as of this encounter
--- OUTSIDE RECORDS SUMMARY | 2024-03-13 15:16 | External Medical Summary | Summary of Care ---
Author Name Unknown Organization [facility] Address [address] [facility] [place] [place] [address] Phone [phone] Care Team Providers Care Insulation Extruder Operator Name Role Phone Pedro Pablo Gaspar MD Primary Care Provider [phone] Reason for Referral * Evaluate & Treat - Unlimited Visits (Within 10 days (routine)) - Authorized Specialty Diagnoses / Procedures Referred By Contac t Referred To Contact Urology Diagnoses Indwelling Giles catheter present Pedro Pablo Gaspar MD [address] [place] [address] Referral ID Status Reason Start Date Expiration Date Visits Requested Visits Authorized [id number] Authorized Specialty Services Required 03/11/2024 999 999 Question Answer Referral Priority Within 10 days (routine) Where should this appointment be scheduled? [facility] What is the patient being referred for? Urinary Concerns Reason for Visit * Reason Onset Date Comments Advice 03/10/2024 Issues with cath eter Encounter Details Date Type Department Care Team (Late st Contact Info) Description 03/10/2024 Telephone Family Practice [facility] [address] [place] [address] Pedro Pablo Gaspar MD [address] [place] [address] Advice (Issues with catheter/) Allergies No known active allergiesdocumented as of this encounter (statuses as of 03/11/2024) Medications Medication Sig Dispensed Refills Start Date End Date Status ONETOUCH VERIO STRP 0 03/22/2020 Activ e Lancets (OPALTOUCH DELICA PLUS [id number]) MISC 0 03/22/2020 Active FreeStyle Yulissa 2 [place] DeviceIndications:T ype 2 diabetes mellitus with hemoglobin A1c goal of less than 7.0% ([facility]) Use as directed. 0 03/07/2021 Active Doxycycline [...] Oral Tablet Extended Release 24 Hour (toPROL XL)Indications:Take Out Waiter/Waitress edie systolic heart failure (HCC) Take 1 [...] less than 7.0% (HCC),HTN, goal below 130/80 Take 1 Tablet by mouth 2 times a day. 60 Tablet 11/23/2023 Active Clopidogrel Bisulfate 75 MG Oral Tablet (pLAVix)Indications :Old [place] (myocardial infarction),History of CVA (cerebrovascular accident) TAKE 1 TABLET BY MOUTH EVERY DAY IN THE MORNING 90 Tablet 1 11/23/2023 Active Atorvastatin Calcium 20 MG Oral Tablet (Lipitor)Indication s:Dyslipidemia TAKE 1 TABLET BY MOUTH EVERY DAY IN THE MORNING 90 Tablet 1 11/23/2023 Active Apixaban 5 MG Oral Tablet (Eliquis) Take 1 Tablet by mouth 2 times a day. 60 Tablet 5 2023 Active rOPINIRole HCl 0.25 MG Oral Tablet (Requip) One tablet daily at bedtime 30 Tablet 2 12/24/2023 Active FreeStyle Yulissa 2 Sensor Use as directed. Use as directed to check blood sugar 3 Each 2 01/13/2024 Active Empagliflozin 10 MG Oral Tablet (Jardiance)Indicati ons:Type 2 diabetes mellitus with hemoglobin A1c goal of less than 7.0% ([facility]) Take 1 Tablet by mouth in the morning. 30 Tablet 2 01/18/2024 Active LORazepam 0.5 MG Oral Tablet (Ativan) Take 1 Tablet by mouth every 6 hours as needed for Anxiety. Takes as needed 0 Active Sertraline HCl 25 MG Oral Tablet (Zoloft) Take 1 Tablet by mouth in the morning. 0 Active documented as of this encounter (statuses as of 03/11/2024) Active Problems Problem Noted Date Diagnosed Date [...] as of this encounter (statuses as of 03/11/2024) Resolved Problems Problem Noted Date Diagnosed Date Resolved Date ETD (Eustachian tube dysfunction), bilateral 08/29/2022 GÓMEZ (generalized anxiety disorder) 05/08/2021 10/14/2023 Moderate episode of recurren t major depressive disorder 05/08/2021 10/14/2023 MEDICATION USE AGREEMENT 12/14/2020 Atherosclerotic heart diseas e of [place] coronary artery with other forms of angina pectoris 05/04/2020 08/08/2020 Adjustment disorder with depressed mood 03/26/2020 05/08/2021 Bilateral carotid artery stenosis 03/26/2020 07/06/2020 documented as of this encounter (statuses as of 03/11/2024) Immunizations Name Administration Dates Next Due COVID-19 mRNA, LNP-s, No Pre serve, 2-Dose Series (SafedoX) 04/06/2021,03/16/2021 Hepatitis B, 20+ yrs 12/14/2020,05/04/2020 Pneumococcal [...] encounter Miscellaneous Notes * Telephone Encounter - Cristiana Tilley OSA - 03/11/2024 12:22 PM EDT Scheduled on 04/27/24. * Telephone Encounter - Mike Floyd OSA - 03/11/2024 12:07 PM EDT Called and spoke to pt. Offered cancellation appt in [place] on Thursday with Dr. Ruano but pt refused this appointment. He has no transport. I told him the next closest option for him is [facility], but they're booking many months out. He said there's no way for him to make the [place] appt, but wouldn't schedule anything that far out with me at . I told him I'd send to the uro schedulers to see ifthere's anyway to get him in here, but that it would be a long shot. Please assist pt in schedulingsooner if possible. * Telephone Encounter - Pedro Pablo Gaspar MD - 03/11/2024 11:51 AM EDT Please assist with referral to [facility] * Telephone Encounter - Stephanie Pichardo LPN - 03/11/2024 10:[address] Angel office, chose option that I was calling from doctors office. Phone rang several times, no answer, no vm. Pt is asking for 2nd opinion, he is not happy with care, and wants you to refout to [facility] instead, locally. Indefinite giles cath for the last 4 months. Having problem with pain in urethra, and can't stand the pain. Wants to call ambulance and go to hospital, "I'min so much pain". Tip of penis is sore, and pain is from tip to rectum area according to pt. Tried asa, tylenol, ibuprofen, and Azo. None of those helped. Did say he saw Dr. Angel 3 days ago and did mention self cathing for awhile to see if that helps. Pt was not keen on that idea. Nurse from [facility] does comes sometimes to change Giles and check on Foleyfunction. Pt takes transportation, so harder for him to get to [place] or [place] to see [facility] urology. Does not want to go back [facility], and prefers that if he has to have that prostate surgery to "open up the hole", "would rather do it with [facility], I don't trust [facility] anymore" Please ref to [facility]. * Telephone Encounter - Pedro Pablo Gaspar MD - 03/11/2024 10:[address] Angel is his urologist and saw him 3 days ago. We need to call Dr. Angel office and have them follow up with the patient. * Telephone Encounter - Stephanie Pichardo LPN - 03/11/2024 10:12 AM EDT Please advise on what we can help this pt with or who he can see. Sounds like he wants another urologist. * Telephone Encounter - Jemma Lowe OSA - 03/11/2024 9:52 AM EDT Deyvi calling in again and his urologist at [facility] is not getting back to him on his issues or helping him. Did have surgery canceled but he canceled it. Would like to discuss with Dr Gaspar about finding someone in urology within [facility] close to [facility]. Having some pain and discomfort with his catheter. Just pain no bleeding noted. Can he please have call back today? * Telephone Encounter - Leila Mendoza OSA - 03/10/2024 11:45 AM EDT Pt is calling to talk to Dr Gaspar regarding his catheter & discuss some issues. Pt said his Urologist is not responding to his needs. Please call the pt back documented in this encounter Plan of Treatment Upcoming Encounters Date Type Department Care Team (Late st Contact Info) Description 04/22/2024 9:00 AM EDT Office Visit Gastroenterology [address] [place] [address] Ayala Pacheco CRNP [address] [facility] [place] [address] 04/27/2024 10:00 AM EDT Office Visit Urology, [facility] [address] [facility] [place] [address] Kareem Ruano MD [address] [facility] [address] [place] [address] Scheduled Referrals Name Type Priority Associated Diagnoses Orde r Schedule ADULT/PEDS UROLOGY REFERRAL OP Referral Within 10 days (routine) Indwelling Giles catheter present Ordered: 03/11/2024 Health Maintenance Due Date Last Done Comments DISCUSS TOBACCO CESSATION (REFER TO SMARTSET #3291) 1970 HIV Screening 1985 Hepatitis C Screening [...] 01/28/2021, Additional history exists COVID-19 Vaccine (3 - 2022-24 season) 2023 04/06/2021, 03/16/2021 HbA1c 07/17/2024 01/15/2024, 08/16, 02/11/2022, Additional history exists GFR 08/05/2024 02/03/2024, 030 11/2023, 10/12/2023, Additional history exists CKD PHOS USE SMARTSET [id number] 01/14/2025 01/15/2024, 1 12/12/2022 Albumin/Creatinine Ratio 01/26/20252 024, 08/29/2022, 12/14/2020 CKD HGB USE SMARTSET 45389 02/02/202502/02, 02/03/2024, 01/15/2024, Additional history exists DTaP,Tdap,and [...] as of this encounter Visit Diagnoses Diagnosis Indwelling Giles catheter present- Primary documented in this encounter Care Teams Insulation Extruder Operator Relationship Specialty Start Date End Date Pedro Pablo Gaspar MD [address] [place] [address] PCP - General Family Medicine 10/22/20 documented as of this encounter
--- NOTE | 2024-03-13 15:19 | Emergency Department Note ---
Impression & Plan GIB (gastrointestinal bleeding) ADMIT ED Provider Note HPI: History obtained from patient. The patient is a 53-year-old gentleman with history of PE, ventricular mural thrombus, currently on Eliquis, who presents the emergency department via EMS over concern for hematemesis. Patient states he does feel nauseated and this has been present for several days. Patient denies any abdominal pain, states he does have some pain in his penis where he has an indwelling catheter. Patient states he had a large volume hematemesis episode and then called EMS. Per EMS report the patient had approximately 1/2 gallon of bloody emesis in a bucket that they witnessed on their arrival. Patient has not had any further episodes of hematemesis since EMS picked him up. On arrival here to the ED the patient's blood pressures improved following IV fluids in the field to 134 systolic, patient is otherwise alert and oriented on arrival. ROS: - Per HPI Differential Diagnosis: Acute gastritis, esophageal variceal bleed, peptic ulcer disease, Caitlin-Wagoner tear, acute cholecystitis, small bowel obstruction,, amongst other potential pathologies. *Outpatient medications and allergy history reviewed. PE: General: Alert HEENT: Normocephalic, trachea midline Eyes: Extraocular eye movement is intact, no scleral erythema Pulmonary: Clear to auscultation bilaterally, no wheezing Cardio: Regular rate and rhythm GI: Abdomen is soft to palpation, there is mild distention, overall nontender to palpation, Salazar sign is negative : No suprapubic tenderness, Rushing catheter in place MSK: No evidence of trauma or malformation of the extremities, no edema Skin: No evidence of rash Neuro: Alert, no focal deficits Psychiatric: Cooperative INDEPENDENT INTERPRETATIONS: satellite project site monitor: (As interpreted by myself): - An order was placed for continuous cardiac monitoring - Patient was noted to be in sinus rhythm with a rate of 110 EKG: (As interpreted by myself): Rate: 103 Rhythm: Sinus tachycardia Intervals: Within normal limits ST changes: No ST elevation Time: 1527 Chest x-ray: (As interpreted by myself): No acute process Interventions provided in ED: -IV fluid bolus, IV Zofran, IV ceftriaxone, IV Protonix bolus and drip, IV octreotide, K-centra, packed red blood cell transfusion Medical Decision Making: IV was established and lab work obtained, patient was placed on personnel monitor. Lab work shows a leukocytosis of 24.17, blood cultures were ordered. Hemoglobin is 8.5 in comparison to hemoglobin of 14.8 in January 2024, platelet count is normal, CMP shows hyperkalemia at 5.8, serum bicarbonate level is 16, BUN is elevated at 95 and creatinine is 3.48 (baseline around 1.5) lactic acid is elevated at 4.0, glucose is elevated at 319. Anion gap is normal. Troponin is negative, EKG does not show any evidence of ST elevation, no arrhythmia or peaked T waves associated with hyperkalemia, patient denies any chest pain. Urinalysis shows 3+ glucose, 1+ blood, 2+ leukocyte Esterase, nitrite negative, patient does have an indwelling Rushing catheter. Patient consented for blood transfusion, he did have another large episode of hematemesis here in the ED approximately 800 cc that is dark black in coloration. Packed red blood cell transfusion was performed following consent being signed. Patient was also given Kcentra as he did take his Eliquis this morning, I did discuss Kcentra administration with the on-call anticoagulation specialist, Dr. Vyas. I discussed the patient's presentation several times with the on-call natural gas technician, Dr. Monterroso. He was made aware the patient's presentation and large-volume hematemesis. He states that given that the patient's blood pressure is stable he will plan to do an endoscopy tomorrow morning. He is in agreement with the other measures that were enacted. Patient did have history of questionable posterior gastric wall perforation versus cystogastrostomy placement on previous CT imaging in September, he was admitted and evaluated for this at this facility. Per chart review General surgery was on consult during that admission and thought gastric perforation was less likely and patient ultimately did not require surgical intervention. CT imaging of the abdomen pelvis was therefore obtained today (without contrast given renal failure) and shows possible acute cholecystitis, no evidence of any free air or perforated viscus. I did discuss this finding with the on-call general surgeon, Dr. Ruano, he is in agreement to evaluate the patient but states that potential surgical intervention would be deferred secondary to the patient's critical GI bleeding. In addition, at this time patient does not have any transaminitis, bilirubin is normal, patient does not have any right upper quadrant tenderness on my exam. I then discussed the case with the on-call hospitalist service for [facility], Georgia Gibbs PA-C, and the patient was accepted to the inpatient service for gastroenterology consultation, general surgery consultation, and further care for upper GI bleed. Patient is in agreement to this plan, he remained hemodynamically stable at the time of admission. Consultants/Discussions held with other healthcare providers: -Gastroenterology, Dr. Monterroso -Anticoagulation Specialist, Dr. Vyas -General Surgery, Dr. Ruano -Hospitalist, Dr. Jansen Disposition discussion held by myself with: -Patient * CRITICAL CARE TIME: ( 37 ) minutes -Management of patient with acute upper gastrointestinal hemorrhage requiring packed red blood cell transfusion for anemia and hypotension in the field, time spent at the bedside, discussion with multiple subspecialist including gastroenterology, general surgery, and the admitting service. Interpretation of diagnostic studies including EKG and lab work, arrangement of admission. Diagnosis: 1. Upper GI bleed, acute 2. Anemia, acute 3. History of pulmonary embolism, on anticoagulation 4. Leukocytosis, acute 5. Acute cholecystitis on CT imaging of the abdomen pelvis 6. Lactic acidosis, acute 7. Hyperkalemia, acute Disposition: Admission Chase Cruz DO Emergency Medicine Past Med/Surg History Medical History Rushing catheter in place Enlarged prostate Hx pulmonary embolism 09/08/23- bilateral PEs History of suicidal ideation (~2020) voluntary admission Travis Hx of congestive heart failure (~10/2023) [facility] Hx of pancreatitis LV (left ventricular) mural thrombus Noted on 09/17/23 ECHO- currently on Eliquis CKD (chronic kidney disease), stage III Ischemic cardiomyopathy EF=20-25% 09/2023 Dyslipidemia Depression CAD (coronary artery disease) (~2013) 2014 - NSTEMI s/p BRUCE to RCA Cardiac cath 09/22/23 ([facility])- no stents or bypass (did show three vessel CAD) DM type 2 (diabetes mellitus, type 2) Hgb A1C 12.4 Only on Metformin as of 01/19/24 History of cerebrovascular accident (~2019) x5 "multiple mini strokes" [facility], no current neurologist, left arm "almost useless" and left side "doesn't work quite right" Most recent CVA 2020 per records Carotid stenosis, bilateral s/ right CEA (2019) Hypertension Surgical History Hx of cardiac catheterization (~09/2023) [facility], no stents Hx of endarterectomy (06/28/20) Right Carotid Endarterectomy with Bovine Patch Angioplasty Dr. Arita 06/28/2020 S/P drug eluting coronary stent placement (~2013) [facility], currently follows at [facility] Family History Mother , age 68 from metastatic lung cancer Lung cancer Father No problems noted. 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 Feels Safe at Home: Yes Assistive Devices: Glasses and Other Allergies Allergies Allergy/AdvReac Type Severity Reaction Status Date / Time No Known Allergies Allergy Verified 03/13/24 15:19 Home Meds Home Medications Medication Instructions Recorded Confirmed clopidogrel 75 mg tablet (Plavix) 75 mg PO QAM 06/05/21 03/13/24 atorvastatin 20 mg tablet 20 mg PO QAM 09/08/23 03/13/24 omeprazole 40 mg capsule,delayed 40 mg PO DAILYBB 09/08/23 03/13/24 release apixaban 5 mg tablet (Eliquis) 5 mg PO Q12H 10/08/23 03/13/24 flash glucose sensor (FreeStyle #1 ea 01/01/24 03/08/24 Yulissa 2 Sensor kit) lorazepam 0.5 mg tablet 0.5 mg PO Q6H PRN Anxiety 01/01/24 03/13/24 metformin 500 mg tablet,extended 1,000 mg PO QAM 01/01/24 03/13/24 release 24 hr sertraline 25 mg tablet 25 mg PO QAM 01/01/24 03/13/24 furosemide 20 mg tablet 10 mg PO QAM 01/11/24 03/13/24 mirtazapine 30 mg tablet 30 mg PO HS 01/11/24 03/13/24 empagliflozin 10 mg tablet 10 mg PO QAM 01/19/24 03/13/24 (Jardiance) Previous Rx's Medication Instructions Recorded lisinopril 10 mg tablet 10 mg PO BID #30 tabs 09/23/23 spironolactone 25 mg tablet 25 mg PO QAM #30 tabs 09/23/23 tamsulosin 0.4 mg capsule 0.4 mg PO HS #30 caps 10/09/23 metoprolol succinate 50 mg 25 mg (1/2 x 50 mg) PO BID #30 tabs 10/12/23 tablet,extended release 24 hr ropinirole 0.25 mg tablet 0.25 mg PO HS #30 tabs 10/12/23 oxybutynin chloride 10 mg 10 mg PO DAILY #30 tabs 03/08/24 tablet,extended release 24 hr Results & Data (ED) Vital Signs Vital Signs - 24 hr 03/13/24 14:56 03/13/24 14:56 03/13/24 15:16 Temperature 37.5 C Temperature Source Oral Pulse Rate 104 H Pulse Rate [Apical] Pulse Rate from SpO2 Sensor Pulse Rhythm Pulse Strength Respiratory Rate 18 18 Blood Pressure 133/79 Blood Pressure [Left Arm] Blood Pressure Mean 97 Blood Pressure Mean [Left Arm] Blood Pressure Position Blood Pressure Position [Left Arm] Pulse Oximetry 100 100 96 Oxygen Delivery Method Room Air Nasal Cannula Room Air Oxygen Flow Rate 2 Sepsis Recent Fever Within 48 Hours No Sepsis New/Unexplained Change in Mental Status N/A Sepsis Action Taken by Nursing No Action Required 03/13/24 15:16 03/13/24 15:19 03/13/24 15:19 Temperature Temperature Source Pulse Rate 106 H 106 H Pulse Rate [Apical] Pulse Rate from SpO2 Sensor 105 H Pulse Rhythm Pulse Strength Respiratory Rate 24 20 Blood Pressure 103/79 Blood Pressure [Left Arm] Blood Pressure Mean 88 Blood Pressure Mean [Left Arm] Blood Pressure Position Blood Pressure Position [Left Arm] Pulse Oximetry 95 Oxygen Delivery Method Oxygen Flow Rate Sepsis Recent Fever Within 48 Hours Sepsis New/Unexplained Change in Mental Status Sepsis Action Taken by Nursing 03/13/24 15:20 03/13/24 15:20 03/13/24 15:30 Temperature Temperature Source Pulse Rate 105 H 107 H Pulse Rate [Apical] Pulse Rate from SpO2 Sensor 105 H Pulse Rhythm Pulse Strength Respiratory Rate 16 21 Blood Pressure 133/79 Blood Pressure [Left Arm] Blood Pressure Mean 95 Blood Pressure Mean [Left Arm] Blood Pressure Position Blood Pressure Position [Left Arm] Pulse Oximetry 100 Oxygen Delivery Method Oxygen Flow Rate Sepsis Recent Fever Within 48 Hours Sepsis New/Unexplained Change in Mental Status Sepsis Action Taken by Nursing 03/13/24 15:30 03/13/24 15:47 03/13/24 15:48 Temperature Temperature Source Pulse Rate 113 H Pulse Rate [Apical] Pulse Rate from SpO2 Sensor Pulse Rhythm Pulse Strength Respiratory Rate 22 Blood Pressure 153/86 H 167/99 H Blood Pressure [Left Arm] Blood Pressure Mean 123 110 Blood Pressure Mean [Left Arm] Blood Pressure Position Blood Pressure Position [Left Arm] Pulse Oximetry Oxygen Delivery Method Oxygen Flow Rate Sepsis Recent Fever Within 48 Hours Sepsis New/Unexplained Change in Mental Status Sepsis Action Taken by Nursing 03/13/24 15:48 03/13/24 15:50 03/13/24 15:50 Temperature Temperature Source Pulse Rate 115 H 113 H Pulse Rate [Apical] Pulse Rate from SpO2 Sensor Pulse Rhythm Pulse Strength Respiratory Rate 22 20 Blood Pressure 168/120 H Blood Pressure [Left Arm] Blood Pressure Mean 152 Blood Pressure Mean [Left Arm] Blood Pressure Position Blood Pressure Position [Left Arm] Pulse Oximetry Oxygen Delivery Method Oxygen Flow Rate Sepsis Recent Fever Within 48 Hours Sepsis New/Unexplained Change in Mental Status Sepsis Action Taken by Nursing 03/13/24 15:53 03/13/24 16:00 03/13/24 16:00 Temperature Temperature Source Pulse Rate 112 H 112 H Pulse Rate [Apical] Pulse Rate from SpO2 Sensor 112 H Pulse Rhythm Pulse Strength Respiratory Rate 22 Blood Pressure 172/95 H Blood Pressure [Left Arm] Blood Pressure Mean 115 Blood Pressure Mean [Left Arm] Blood Pressure Position Blood Pressure Position [Left Arm] Pulse Oximetry 100 Oxygen Delivery Method Oxygen Flow Rate Sepsis Recent Fever Within 48 Hours Sepsis New/Unexplained Change in Mental Status Sepsis Action Taken by Nursing 03/13/24 16:10 03/13/24 16:15 03/13/24 16:20 Temperature Temperature Source Pulse Rate 108 H Pulse Rate [Apical] Pulse Rate from SpO2 Sensor Pulse Rhythm Pulse Strength Respiratory Rate 24 Blood Pressure 147/123 H 194/114 H Blood Pressure [Left Arm] Blood Pressure Mean 128 134 Blood Pressure Mean [Left Arm] Blood Pressure Position Blood Pressure Position [Left Arm] Pulse Oximetry Oxygen Delivery Method Oxygen Flow Rate Sepsis Recent Fever Within 48 Hours Sepsis New/Unexplained Change in Mental Status Sepsis Action Taken by Nursing 03/13/24 16:23 03/13/24 16:30 03/13/24 16:30 Temperature Temperature Source Pulse Rate 119 H 117 H Pulse Rate [Apical] Pulse Rate from SpO2 Sensor Pulse Rhythm Pulse Strength Respiratory Rate 17 Blood Pressure 124/90 Blood Pressure [Left Arm] Blood Pressure Mean 105 Blood Pressure Mean [Left Arm] Blood Pressure Position Blood Pressure Position [Left Arm] Pulse Oximetry Oxygen Delivery Method Oxygen Flow Rate Sepsis Recent Fever Within 48 Hours Sepsis New/Unexplained Change in Mental Status Sepsis Action Taken by Nursing 03/13/24 16:35 03/13/24 16:40 03/13/24 16:40 Temperature 37.0 C Temperature Source Oral Pulse Rate 113 H 112 H Pulse Rate [Apical] Pulse Rate from SpO2 Sensor 112 H Pulse Rhythm Regular Pulse Strength Normal Respiratory Rate 17 16 Blood Pressure 124/90 138/83 Blood Pressure [Left Arm] Blood Pressure Mean 101 91 Blood Pressure Mean [Left Arm] Blood Pressure Position Lying Blood Pressure Position [Left Arm] Pulse Oximetry 93 89 L Oxygen Delivery Method Nasal Cannula Oxygen Flow Rate 2 2 Sepsis Recent Fever Within 48 Hours Sepsis New/Unexplained Change in Mental Status Sepsis Action Taken by Nursing 03/13/24 16:50 03/13/24 16:50 03/13/24 16:50 Temperature Temperature Source Pulse Rate 113 H Pulse Rate [Apical] Pulse Rate from SpO2 Sensor Pulse Rhythm Pulse Strength Respiratory Rate 18 Blood Pressure 118/76 118/76 Blood Pressure [Left Arm] Blood Pressure Mean 88 88 Blood Pressure Mean [Left Arm] Blood Pressure Position Blood Pressure Position [Left Arm] Pulse Oximetry Oxygen Delivery Method Oxygen Flow Rate Sepsis Recent Fever Within 48 Hours Sepsis New/Unexplained Change in Mental Status Sepsis Action Taken by Nursing 03/13/24 16:54 03/13/24 16:56 03/13/24 17:00 Temperature 37.1 C Temperature Source Oral Pulse Rate 113 H 115 H Pulse Rate [Apical] Pulse Rate from SpO2 Sensor 115 H Pulse Rhythm Pulse Strength Respiratory Rate 18 18 15 Blood Pressure 118/76 Blood Pressure [Left Arm] Blood Pressure Mean 90 Blood Pressure Mean [Left Arm] Blood Pressure Position Blood Pressure Position [Left Arm] Pulse Oximetry 100 100 Oxygen Delivery Method Oxygen Flow Rate Sepsis Recent Fever Within 48 Hours Sepsis New/Unexplained Change in Mental Status Sepsis Action Taken by Nursing 03/13/24 17:00 03/13/24 17:00 03/13/24 17:09 Temperature 36.8 C Temperature Source Oral Pulse Rate 104 H Pulse Rate [Apical] Pulse Rate from SpO2 Sensor Pulse Rhythm Pulse Strength Respiratory Rate 18 Blood Pressure 127/87 127/87 112/68 Blood Pressure [Left Arm] Blood Pressure Mean 95 95 82 Blood Pressure Mean [Left Arm] Blood Pressure Position Blood Pressure Position [Left Arm] Pulse Oximetry 100 Oxygen Delivery Method Oxygen Flow Rate 4 Sepsis Recent Fever Within 48 Hours Sepsis New/Unexplained Change in Mental Status Sepsis Action Taken by Nursing 03/13/24 17:10 03/13/24 17:10 03/13/24 17:20 Temperature Temperature Source Pulse Rate 106 H 103 H Pulse Rate [Apical] Pulse Rate from SpO2 Sensor 105 H 103 H Pulse Rhythm Pulse Strength Respiratory Rate 18 16 Blood Pressure 112/68 Blood Pressure [Left Arm] Blood Pressure Mean 88 Blood Pressure Mean [Left Arm] Blood Pressure Position Blood Pressure Position [Left Arm] Pulse Oximetry 100 100 Oxygen Delivery Method Oxygen Flow Rate Sepsis Recent Fever Within 48 Hours Sepsis New/Unexplained Change in Mental Status Sepsis Action Taken by Nursing 03/13/24 17:20 03/13/24 17:20 03/13/24 17:30 Temperature Temperature Source Pulse Rate 109 H Pulse Rate [Apical] Pulse Rate from SpO2 Sensor 81 Pulse Rhythm Pulse Strength Respiratory Rate 20 Blood Pressure 124/74 124/74 Blood Pressure [Left Arm] Blood Pressure Mean 85 85 Blood Pressure Mean [Left Arm] Blood Pressure Position Blood Pressure Position [Left Arm] Pulse Oximetry 99 Oxygen Delivery Method Oxygen Flow Rate Sepsis Recent Fever Within 48 Hours Sepsis New/Unexplained Change in Mental Status Sepsis Action Taken by Nursing 03/13/24 17:30 03/13/24 17:30 03/13/24 17:39 Temperature 36.8 C Temperature Source Oral Pulse Rate 106 H Pulse Rate [Apical] Pulse Rate from SpO2 Sensor Pulse Rhythm Pulse Strength Respiratory Rate 18 Blood Pressure 117/69 117/69 117/69 Blood Pressure [Left Arm] Blood Pressure Mean 77 77 85 Blood Pressure Mean [Left Arm] Blood Pressure Position Blood Pressure Position [Left Arm] Pulse Oximetry 100 Oxygen Delivery Method Oxygen Flow Rate 2 Sepsis Recent Fever Within 48 Hours Sepsis New/Unexplained Change in Mental Status Sepsis Action Taken by Nursing 03/13/24 17:40 03/13/24 17:40 03/13/24 17:49 Temperature Temperature Source Pulse Rate 97 H 100 H Pulse Rate [Apical] Pulse Rate from SpO2 Sensor 68 100 H Pulse Rhythm Pulse Strength Respiratory Rate 18 10 L Blood Pressure 124/66 Blood Pressure [Left Arm] Blood Pressure Mean 95 Blood Pressure Mean [Left Arm] Blood Pressure Position Blood Pressure Position [Left Arm] Pulse Oximetry 100 99 Oxygen Delivery Method Oxygen Flow Rate Sepsis Recent Fever Within 48 Hours Sepsis New/Unexplained Change in Mental Status Sepsis Action Taken by Nursing 03/13/24 17:49 03/13/24 17:50 03/13/24 17:57 Temperature Temperature Source Pulse Rate 100 H 101 H Pulse Rate [Apical] Pulse Rate from SpO2 Sensor 100 H 79 Pulse Rhythm Pulse Strength Respiratory Rate 17 14 Blood Pressure 127/79 Blood Pressure [Left Arm] Blood Pressure Mean 98 Blood Pressure Mean [Left Arm] Blood Pressure Position Blood Pressure Position [Left Arm] Pulse Oximetry 98 99 Oxygen Delivery Method Oxygen Flow Rate Sepsis Recent Fever Within 48 Hours Sepsis New/Unexplained Change in Mental Status Sepsis Action Taken by Nursing 03/13/24 17:57 03/13/24 17:58 03/13/24 18:00 Temperature Temperature Source Pulse Rate 112 H Pulse Rate [Apical] 107 H Pulse Rate from SpO2 Sensor Pulse Rhythm Pulse Strength Respiratory Rate 18 18 Blood Pressure 125/76 125/76 Blood Pressure [Left Arm] 132/82 Blood Pressure Mean 86 92 Blood Pressure Mean [Left Arm] 98 Blood Pressure Position Blood Pressure Position [Left Arm] Pulse Oximetry 97 96 Oxygen Delivery Method Room Air Oxygen Flow Rate 2 Sepsis Recent Fever Within 48 Hours Sepsis New/Unexplained Change in Mental Status Sepsis Action Taken by Nursing 03/13/24 18:00 03/13/24 18:00 03/13/24 18:03 Temperature 36.8 C Temperature Source Oral Pulse Rate 103 H 103 H Pulse Rate [Apical] Pulse Rate from SpO2 Sensor 78 Pulse Rhythm Pulse Strength Respiratory Rate 17 18 Blood Pressure 132/82 132/82 Blood Pressure [Left Arm] Blood Pressure Mean 98 98 Blood Pressure Mean [Left Arm] Blood Pressure Position Blood Pressure Position [Left Arm] Pulse Oximetry 98 99 Oxygen Delivery Method Oxygen Flow Rate Sepsis Recent Fever Within 48 Hours Sepsis New/Unexplained Change in Mental Status Sepsis Action Taken by Nursing 03/13/24 18:05 03/13/24 18:21 03/13/24 18:36 Temperature 36.8 C 36.8 C Temperature Source Oral Oral Pulse Rate 113 H 98 H 102 H Pulse Rate [Apical] Pulse Rate from SpO2 Sensor Pulse Rhythm Pulse Strength Respiratory Rate 19 18 18 Blood Pressure 132/82 124/73 148/79 H Blood Pressure [Left Arm] Blood Pressure Mean 98 90 102 Blood Pressure Mean [Left Arm] Blood Pressure Position Lying Blood Pressure Position [Left Arm] Pulse Oximetry 98 96 99 Oxygen Delivery Method Oxygen Flow Rate 2 Sepsis Recent Fever Within 48 Hours Sepsis New/Unexplained Change in Mental Status Sepsis Action Taken by Nursing 03/13/24 19:00 Temperature Temperature Source Pulse Rate Pulse Rate [Apical] 99 H Pulse Rate from SpO2 Sensor Pulse Rhythm Pulse Strength Respiratory Rate 16 Blood Pressure Blood Pressure [Left Arm] 137/82 Blood Pressure Mean Blood Pressure Mean [Left Arm] 100 Blood Pressure Position Blood Pressure Position [Left Arm] Lying Pulse Oximetry 98 Oxygen Delivery Method Oxygen Flow Rate Sepsis Recent Fever Within 48 Hours Sepsis New/Unexplained Change in Mental Status Sepsis Action Taken by Nursing Laboratory Data 03/13/24 15:18 03/13/24 15:18 Lab Results 03/13/24 03/13/24 03/13/24 Range/Units 15:18 15:20 15:26 WBC 24.17 H (4.8-10.8) K/ul RBC 3.46 L (4.70-6.10) M/uL Hgb 8.5 L (14.0-18.0) g/dl POC Hgb 8.2 L (14.0-18.0) g/dl Hct 27.2 L (42.0-52.0) % POC Hct 24 L (42-52) % MCV 78.6 L (80.0-100.0) fL MCH 24.6 L (25.0-34.0) pg MCHC 31.3 L (32.0-36.0) g/dL RDW Std Deviation 47.4 H (36.4-46.3) fL RDW Coeff of Dione 16.7 H (11.5-14.5) % Plt Count 262 (130-400) K/uL MPV 9.7 (9.4-12.4) fL Immature Gran % (Auto) 1.5 % Neut % (Auto) 87.5 % Lymph % (Auto) 4.9 % [place] % (Auto) 5.9 % Eos % (Auto) 0.0 % Baso % (Auto) 0.2 % Neut # (Auto) 21.15 H (1.40-6.50) K/uL Lymph # (Auto) 1.18 L (1.20-3.40) K/uL [place] # (Auto) 1.43 H (0.11-0.59) K/uL Eos # (Auto) 0.00 (0.00-0.50) K/uL Baso # (Auto) 0.05 (0.00-0.20) K/uL Immature Gran # (Auto) 0.36 H (0.01-0.20) K/uL Hypochromasia Present PT 12.6 H (9.0-12.0) Seconds INR 1.2 H (0.9-1.1) POC Sodium 137 (135-144) mmol/L Sodium 136 (136-145) mmol/L POC Potassium 5.9 H (3.3-5.0) mmol/L Potassium 5.8 H (3.5-5.1) mmol/L POC Chloride 112 (101-112) mmol/L Chloride 110 H (98-107) mmol/L Carbon Dioxide 16 L (21-32) mmol/L POC Total CO2 16 L (24-31) mmol/L Anion Gap 10 (3-11) POC Anion Gap 16.0 (16-25) mmol/L POC BUN 98 H (7-18) mg/dl BUN 95 H (6-23) mg/dl Creatinine 3.48 H (0.6-1.4) mg/dl POC Creatinine 4.1 H (0.6-1.3) mg/dl Est Cr Clr Drug Dosing 22.2 ml/min Est GFR ( Amer) 22.0 ml/min Est GFR (Non-Af Amer) 18.9 ml/min BUN/Creatinine Ratio 27.3 H (10-20) Glucose 319 H* (70-99(Fasting)) mg/dl POC Glucose (other) 299 H (70-99) mg/dl Lactate 4.0 H* (0.4-2.0) mmol/L Calcium 8.4 L (8.6-10.3) mg/dl POC Ioniz Calcium Juan 1.32 (1.12-1.32) mmol/l Total Bilirubin 0.4 (0.2-1.0) mg/dl AST 9 L (13-39) U/L ALT 16 (7-52) U/L Alkaline Phosphatase 64 (34-104) U/L Troponin I High Sens 18.7 (0-20) pg/ml Total Protein 5.4 L (6.0-8.3) gm/dl Albumin 2.8 L (3.4-5.0) gm/dl Globulin 2.6 (2.5-4.0) gm/dl Albumin/Globulin Ratio 1.1 (0.9-2) Lipase 58 (11-82) U/L Urine Color Urine Appearance (Clear) Urine pH (4.5-7.5) Ur Specific [place] (1.000-1.030) Urine Protein (Negative) Urine Glucose (UA) (Negative) Urine Ketones (Negative) Urine Blood (Negative) Urine Nitrite (Negative) Urine Bilirubin (Negative) Urine Urobilinogen (Negative) Ur Leukocyte Esterase (Negative) Urine WBC (Auto) (0-5) /hpf Urine RBC (Auto) (0-2) /hpf U Hyaline Cast (Auto) (0-2) /lpf U Epithel Cells (Auto) (0-2) /hpf Urine Bacteria (Auto) (None Seen) Urine Sperm (None Prsent) Blood Type O Positive Blood Type Recheck O Positive Antibody Screen NEGATIVE Crossmatch See Detail 03/13/24 Range/Units 16:50 WBC (4.8-10.8) K/ul RBC (4.70-6.10) M/uL Hgb (14.0-18.0) g/dl POC Hgb (14.0-18.0) g/dl Hct (42.0-52.0) % POC Hct (42-52) % MCV (80.0-100.0) fL MCH (25.0-34.0) pg MCHC (32.0-36.0) g/dL RDW Std Deviation (36.4-46.3) fL RDW Coeff of Dione (11.5-14.5) % Plt Count (130-400) K/uL MPV (9.4-12.4) fL Immature Gran % (Auto) % Neut % (Auto) % Lymph % (Auto) % [place] % (Auto) % Eos % (Auto) % Baso % (Auto) % Neut # (Auto) (1.40-6.50) K/uL Lymph # (Auto) (1.20-3.40) K/uL [place] # (Auto) (0.11-0.59) K/uL Eos # (Auto) (0.00-0.50) K/uL Baso # (Auto) (0.00-0.20) K/uL Immature Gran # (Auto) (0.01-0.20) K/uL Hypochromasia PT (9.0-12.0) Seconds INR (0.9-1.1) POC Sodium (135-144) mmol/L Sodium (136-145) mmol/L POC Potassium (3.3-5.0) mmol/L Potassium (3.5-5.1) mmol/L POC Chloride (101-112) mmol/L Chloride (98-107) mmol/L Carbon Dioxide (21-32) mmol/L POC Total CO2 (24-31) mmol/L Anion Gap (3-11) POC Anion Gap (16-25) mmol/L POC BUN (7-18) mg/dl BUN (6-23) mg/dl Creatinine (0.6-1.4) mg/dl POC Creatinine (0.6-1.3) mg/dl Est Cr Clr Drug Dosing ml/min Est GFR ( Amer) ml/min Est GFR (Non-Af Amer) ml/min BUN/Creatinine Ratio (10-20) Glucose (70-99(Fasting)) mg/dl POC Glucose (other) (70-99) mg/dl Lactate (0.4-2.0) mmol/L Calcium (8.6-10.3) mg/dl POC Ioniz Calcium Juan (1.12-1.32) mmol/l Total Bilirubin (0.2-1.0) mg/dl AST (13-39) U/L ALT (7-52) U/L Alkaline Phosphatase (34-104) U/L Troponin I High Sens (0-20) pg/ml Total Protein (6.0-8.3) gm/dl Albumin (3.4-5.0) gm/dl Globulin (2.5-4.0) gm/dl Albumin/Globulin Ratio (0.9-2) Lipase (11-82) U/L Urine Color Yellow Urine Appearance Cloudy A (Clear) Urine pH 5.5 (4.5-7.5) Ur Specific [place] 1.013 (1.000-1.030) Urine Protein Trace H (Negative) Urine Glucose (UA) 3+ H (Negative) Urine Ketones Negative (Negative) Urine Blood 1+ H (Negative) Urine Nitrite Negative (Negative) Urine Bilirubin Negative (Negative) Urine Urobilinogen Negative (Negative) Ur Leukocyte Esterase 2+ H (Negative) Urine WBC (Auto) 11-20 H (0-5) /hpf Urine RBC (Auto) 3-5 H (0-2) /hpf U Hyaline Cast (Auto) 3-5 H (0-2) /lpf U Epithel Cells (Auto) 0-2 (0-2) /hpf Urine Bacteria (Auto) 1+ H (None Seen) Urine Sperm Present A (None Prsent) Blood Type Blood Type Recheck Antibody Screen Crossmatch Administered Medications Pantoprazole Sodium 40 mg/ (Dextrose) 100 mls @ 20 mls/hr IV Q5H YADIRA Stop: 04/12/24 16:14 Last Admin: 03/13/24 16:42 Dose: 8 mg/hr, 20 mls/hr Documented By: ABHIJEET Discontinued Medications Sodium Chloride (Nss) 1,000 mls @ 999 mls/hr IV .Q1H1M STA Stop: 03/13/24 16:16 Last Infusion: 03/13/24 16:41 Dose: Infused Documented By: Admin: 03/13/24 15:25 Dose: 999 mls/hr Documented By: ABHIJEET Prothrombin Complex Concent ( (Human) 2,000 units/ Syringe) 80 mls @ 10 mls/min IV TODAY@1545 [facility]; Protocol Stop: 03/13/24 17:00 Last Admin: 03/13/24 15:52 Dose: 10 mls/min Documented By: ABHIJEET Ceftriaxone Sodium (Rocephin) 1,000 mg in 50 mls @ 100 mls/hr IV NOW STA Stop: 03/13/24 16:06 Last Infusion: 03/13/24 16:41 Dose: Infused Documented By: Admin: 03/13/24 16:03 Dose: 100 mls/hr Documented By: ABHIJEET Pantoprazole Sodium 80 mg/ (Dextrose) 120 mls @ 480 mls/hr IV NOW ONE Stop: 03/13/24 16:02 Last Infusion: 03/13/24 16:41 Dose: Infused Documented By: Admin: 03/13/24 16:01 Dose: 480 mls/hr Documented By: ABHIJEET Octreotide Acetate 100 mcg/ (Syringe) 10 mls @ 3 mls/min IV NOW STA Stop: 03/13/24 15:57 Last Admin: 03/13/24 16:03 Dose: 3 mls/min Documented By: ABHIJEET Acetaminophen (Ofirmev) 1,000 mg in 100 mls @ 400 mls/hr IV NOW STA Stop: 03/13/24 17:14 Last Infusion: 03/13/24 17:23 Dose: Infused Documented By: Admin: 03/13/24 17:07 Dose: 400 mls/hr Documented By: ABHIJEET Ondansetron HCl (Ondansetron Inj 2 Mg/Ml 2 Ml Vial) 4 mg IV NOW STA Stop: 03/13/24 15:17 Last Admin: 03/13/24 15:24 Dose: 4 mg Documented By: ABHIJEET Pantoprazole Sodium (Pantoprazole Bolus/Drip) 1 each IV NOW STA Stop: 03/13/24 15:49 Last Admin: 03/13/24 16:43 Dose: 1 each Documented By: ABHIJEET Imaging Data Radiologist's Impression: Chest X-Ray 03/13/24 15:16 XR chest 1V portable HISTORY: Hematemesis COMPARISON: Chest 09/15/2023. FINDINGS: There are low lung volumes. No pneumothorax. No pleural effusions. No focal lung consolidations to suggest a pneumonia. No evidence for pulmonary edema. The cardiac silhouette is borderline enlarged. There are calcifications within the aortic knob. No acute fractures. A few bibasilar densities favor subsegmental atelectasis or scarring. IMPRESSION: No acute process. ACT 112: Negative or not required by law. Electronically signed by: Servando Batres M.D. 03/13/2024 4:31 PM Abdomen/Pelvis CT 03/13/24 15:[address] WITHOUT CONTRAST CT DOSE: 845.31 mGy.cm HISTORY: Hematemesis TECHNIQUE: Multiaxial CT images of the abdomen and pelvis were performed without contrast. A dose lowering technique was utilized adhering to the principles of ALARA. COMPARISON STUDY: Abdomen and pelvis CT 10/09/2023. FINDINGS: The bilateral lower lobe wedge-shaped densities have improved. However, there is a residual 12 mm nodule within the right lower lobe with the prior consolidation. No pneumoperitoneum. No pneumatosis. No acute fractures identified. Moderate to severe distention of the stomach which is fluid-filled. This could represent a gastric outlet obstruction. However, no definite transition point as the proximal duodenum is also slightly distended and fluid- filled. The unenhanced liver, spleen, adrenal glands, and pancreas are unremarkable. Vascular calcifications noted within the renal sinuses. No definite renal or ureteral calculi. No hydronephrosis. The gallbladder is distended and thick-walled with surrounding pericholecystic edema/inflammatory change. This is high suspicious for an acute cholecystitis. Calcified plaque within the normal caliber abdominal aorta. No retroperitoneal or pelvic lymphadenopathy. Small fat-containing bilateral inguinal hernias. The bladder is decompressed by Rushing catheter which appears in good position. Bladder wall thickening has improved. The colon is decompressed. Normal appendix. No bowel wall thickening. No evidence for a small bowel obstruction. IMPRESSION: 1. Moderate to severe distention of the stomach which is fluid-filled. This is concerning for gastric outlet obstruction. However, no clear transition point identified. 2. Distended and thick-walled gallbladder with pericholecystic inflammatory change/edema. This is highly suspicious for an acute cholecystitis. Surgical consultation recommended for further evaluation. 3. There is a 12 mm nodular density remaining at the area of consolidation within the right lower lobe seen on the prior study. [address] follow-up recommended to ensure stability/resolution. ACT 112: Negative or not required by law. Electronically signed by: Servando Batres M.D. 03/13/2024 5:08 PM Discharge Plan Visit Data Chief Complaint: GI Bleed Stated Complaint: GI BLEED, HYPOTENSION ED Provider: Chase Cruz Discharge Problem: GIB (gastrointestinal bleeding) Forms Stand Alone Forms: [facility]ARTIS Prescriptions Prescriptions: No Action sertraline 25 mg tablet 25 mg PO QAM lorazepam 0.5 mg tablet 0.5 mg PO Q6H PRN (Reason: Anxiety) metformin 500 mg tablet extended release 24 hr 1,000 mg PO QAM (DME) FreeStyle Yulissa 2 Sensor Kit See Rx Instructions .ROUTE .MEDSUPPLY Qty: 1 Rx Instructions: As directed oxybutynin chloride 10 mg tablet extended release 24hr 10 mg PO DAILY Qty: 30 2RF Eliquis 5 mg tablet 5 mg PO Q12H Hold Instructions: Resume on 11/18/23. tamsulosin 0.4 mg Capsule 0.4 mg PO HS Qty: 30 0RF ropinirole 0.25 mg Tablet 0.25 mg PO HS Qty: 30 0RF metoprolol succinate 50 mg Tablet Extended Release 24 Hr 25 mg PO BID Qty: 30 0RF clopidogrel [Plavix] 75 mg Tablet 75 mg PO QAM Hold Instructions: Resume on 11/18/23. atorvastatin 20 mg tablet 20 mg PO QAM Hold Instructions: Resume on 10/14/23. omeprazole 40 mg capsule,delayed release(DR/EC) 40 mg PO DAILYBB Hold Instructions: Resume on 10/09/23. spironolactone 25 mg Tablet 25 mg PO QAM Qty: 30 0RF Hold Instructions: Resume on 11/18/23. lisinopril 10 mg Tablet 10 mg PO BID Qty: 30 0RF Hold Instructions: Resume on 10/22/23. mirtazapine 30 mg Tablet 30 mg PO HS furosemide 20 mg Tablet 10 mg PO QAM Rx Instructions: PER [facility] Jardiance 10 mg Tablet 10 mg PO QAM Referrals Referrals: Pedro Pablo Gaspar MD [Primary Care Provider] -
[2024-03-13] MEDS: ONDANSETRON INJ 2 MG/ML 2 ML VIAL IV STA (15:24)
[2024-03-13] MEDS: SODIUM CHLORIDE 0.9% 1,000 ML IV STA (15:25)
[2024-03-13 15:32] LABS: Hematocrit (blood only) 27.2 % (42.0-52.0); Hemoglobin 8.5 g/dl (14.0-18.0); Mean Corpuscular Hemoglobin 24.6 pg (25.0-34.0); Mean Corpuscular Hgb Conc 31.3 g/dL (32.0-36.0); Mean Corpuscular Volume 78.6 fL (80.0-100.0); Mean Platelet Volume 9.7 fL (9.4-12.4); Platelet Count 262 K/uL (130-400); RDW Coefficient of Variation 16.7 % (11.5-14.5); RDW Standard Deviation 47.4 fL (36.4-46.3); Red Blood Count 3.46 M/uL (4.70-6.10); White Blood Count 24.17 K/ul (4.8-10.8)
[2024-03-13] MEDS ORDERED: OCTREOTIDE ACETATE 100 MCG in SYRINGE 0 ML IV STA (15:37)
[2024-03-13] MEDS ORDERED: SODIUM CHLORIDE 0.9% 250 ML IV PRN (15:39)
[2024-03-13 15:40] LABS: iSTAT Creatinine 4.1 mg/dl (0.6-1.3); iSTAT Hemoglobin 8.2 g/dl (14.0-18.0); iSTAT Ionized Calcium 1.32 mmol/l (1.12-1.32); iSTAT Potassium 5.9 mmol/L (3.3-5.0)
[2024-03-13 15:52] LABS: Basophils # (auto) 0.05 K/uL (0.00-0.20); Basophils % (auto) 0.2 %; Hypochromasia Present; Immature Granulocytes # (auto) 0.36 K/uL (0.01-0.20); Immature Granulocytes % (auto) 1.5 %; Lymphocytes # (auto) 1.18 K/uL (1.20-3.40); Lymphocytes % (auto) 4.9 %; Monocytes # (auto) 1.43 K/uL (0.11-0.59); Monocytes % (auto) 5.9 %; Neutrophils # (auto) 21.15 K/uL (1.40-6.50); Neutrophils % (auto) 87.5 %
[2024-03-13] MEDS: KCENTRA (500unit vial) 2000 units IVP IV SCH (15:52)
[2024-03-13] MEDS: PANTOprazole 80 MG in DEXTROSE 5% 100 ML IV ONE (16:01)
[2024-03-13] MEDS: cefTRIAXone SODIUM 1,000 MG/50 ML BAG IV STA (16:03)
[2024-03-13] MEDS: OCTREOTIDE ACETATE 100 MCG in SYRINGE 9 ML IV STA (16:03)
[2024-03-13 16:19] LABS: INR 1.2 (0.9-1.1); Prothrombin Time 12.6 Seconds (9.0-12.0)
[2024-03-13 16:25] LABS: Albumin Globulin Ratio 1.1 (0.9-2); Albumin Level 2.8 gm/dl (3.4-5.0); BUN Creatinine Ratio 27.3 (10-20); Bilirubin,Total 0.4 mg/dl (0.2-1.0); Calcium 8.4 mg/dl (8.6-10.3); Creatinine Clr Calc Pharmacy 22.2 ml/min; Est GFR (Non-African American) 18.9 ml/min; Globulin 2.6 gm/dl (2.5-4.0); Potassium 5.8 mmol/L (3.5-5.1); Total Protein 5.4 gm/dl (6.0-8.3); Troponin I High Sensitivity 18.7 pg/ml (0-20)
--- NOTE | 2024-03-13 16:33 | XRay Report ---
XR chest 1V portable HISTORY: Hematemesis COMPARISON: Chest 09/15/2023. FINDINGS: There are low lung volumes. No pneumothorax. No pleural effusions. No focal lung consolidat ions to suggest a pneumonia. No evidence for pulmonary edema. The cardiac silhouette is borderline en larged. There are calcifications within the aortic knob. No acute fractures. A few bibasilar densitie s favor subsegmental atelectasis or scarring. IMPRESSION: No acute process. ACT 112: Negative or not required by law. Electronically signed by: Servando Batres M.D. 03/13/2024 4:31 PM
[2024-03-13] MEDS: PANTOprazole 40 MG in DEXTROSE 5% MINI-B 100 ML IV SCH (16:42)
[2024-03-13] MEDS: PANTOPRAZOLE BOLUS/DRIP IV STA (16:43)
[2024-03-13] MEDS: ACETAMINOPHEN 1,000 MG/100 ML VIAL IV STA (17:07)
--- NOTE | 2024-03-13 17:09 | CT Scan Report ---
ABDOMEN AND PELVIS CT WITHOUT CONTRAST CT DOSE: 845.31 mGy.cm HISTORY: Hematemesis TECHNIQUE: Multiaxial CT images of the abdomen and pelvis were performed without contrast. A dose lo wering technique was utilized adhering to the principles of ALARA. COMPARISON STUDY: Abdomen and pelvis CT 10/09/2023. FINDINGS: The bilateral lower lobe wedge-shaped densities have improved. However, there is a residual 12 mm nodule within the right lower lobe with the prior consolidation. No pneumoperitoneum. No pneum atosis. No acute fractures identified. Moderate to severe distention of the stomach which is fluid-fi lled. This could represent a gastric outlet obstruction. However, no definite transition point as the proximal duodenum is also slightly distended and fluid-filled. The unenhanced liver, spleen, adrenal glands, and pancreas are unremarkable. Vascular calcifications noted within the renal sinuses. No de finite renal or ureteral calculi. No hydronephrosis. The gallbladder is distended and thick-walled wi th surrounding pericholecystic edema/inflammatory change. This is high suspicious for an acute cholec ystitis. Calcified plaque within the normal caliber abdominal aorta. No retroperitoneal or pelvic lym phadenopathy. Small fat-containing bilateral inguinal hernias. The bladder is decompressed by Rushing c atheter which appears in good position. Bladder wall thickening has improved. The colon is decompress ed. Normal appendix. No bowel wall thickening. No evidence for a small bowel obstruction. IMPRESSION: 1. Moderate to severe distention of the stomach which is fluid-filled. This is concerning for gastric outlet obstruction. However, no clear transition point identified. 2. Distended and thick-walled gallbladder with pericholecystic inflammatory change/edema. This is hig hly suspicious for an acute cholecystitis. Surgical consultation recommended for further evaluation. 3. There is a 12 mm nodular density remaining at the area of consolidation within the right lower lob e seen on the prior study. [address] follow-up recommended to ensure stability/resolution. ACT 112: Negative or not required by law. Electronically signed by: Servando Batres M.D. 03/13/2024 5:08 PM
[2024-03-13 17:28] LABS: Appearance Urine Cloudy (Clear); Bacteria Urine Automated 1+ (None Seen); Bilirubin Urine Negative (Negative); Blood Urine 1+ (Negative); Color Urine Yellow; Epithelial Cell Urine Auto 0-2 /hpf (0-2); Glucose Urine UA 3+ (Negative); Ketones Urine Negative (Negative); Leukocyte Esterase Urine 2+ (Negative); Nitrite Urine Negative (Negative); Protein Urine Trace (Negative); Specific Gravity Urine 1.013 (1.000-1.030); Urobilinogen Urine Negative (Negative); pH Urine 5.5 (4.5-7.5)
[2024-03-13 17:40] LABS: Sperm Urine Present (None Prsent)
--- NOTE | 2024-03-13 18:09 | History & Physical Report ---
Date of Service March 13, 2024 Assessment & Plan (1) Acute upper GI bleed: (2) Acute blood loss anemia: Plan: - Admit to ICU - Acute upper GI bleed concerning for acute hemorrhage vs esophageal varices bleed - GI consulted - Dr. Leo Monterroso planning to do endoscopy in morning, or emergently overnight if necessary - NPO, last po intake was 48 hrs ago due to abd complaints per HPI - Hemodynamically stable currently - Hgb of 8.5, was 14 in January previously , Trend H&H Q4H - Lactate 4 on admission, trend - Cont IVFs, transfusing 2 U PRBCs, keep 2 more on hold - Continue protonix bolus and gtt - Continue octreotide gtt (3) Acute cholecystitis: Plan: - Gen surg consulted - Dr. Ruano - Will plan to continue fluids, antibiotics with ceftriaxone IV, add flagyl - Concern that pt may require perc torri tube if unable to have cholecystectomy during this admission - WBC of 24 K (appears previously WBC has been elevated at 12 -16), blood cultures x 2 , lactate 4 - Afebrile at this time, + michaels on exam (4) BRUNA (acute kidney injury): Plan: -Creatinine baseline of 1.5, currently elevated at 3.48 on admission -IV fluids -Hold nephrotoxins, renally reduce medications -Chronic indwelling Giles to be exchanged today, UA completed, does not appear to be grossly infected but is on antibiotics for other issues as above (5) CAD (coronary artery disease): (6) Hypertension: (7) Dyslipidemia: Plan: -Will hold Plavix and Eliquis due to GI bleed -Holding antihypertensive medications except for metoprolol tartrate IV 2.5 mg Q4H scheduled for beta-blockade -Continue statin therapy if able to take p.o. -Chronic smoking to be discussed later - hold on nicotine patch (8) DM type 2 (diabetes mellitus, type 2): Plan: - ISS with Accu-Cheks ACHS - A1C to be checked with am labs, was 12.4 on 01/15/24 (9) Chronic ischemic right MCA stroke: Plan: - Hx of such in March 2020 - holding plavix, eliquis - Residual cognitive disability noted previously - pt is awake oriented and participates in conversation. DVT ppx: teds, scds Lines: Obtain 2 large-bore PIV FEN/GI: N.p.o. CODE: Full code Dispo: From home, likely to remain in the hospital x 1-2 days A total of 80 minutes were spent with greater than 50% of that time face to face with the patient, personally reviewing all current laboratories, imaging studies, past medication reconciliation, outpatient chart review, and discussion with specialists to collaborate care for the patient with attending. Please see attending documentation for corrections and/or additions. History of Present Illness Chief Complaint: Gi bleed Primary Care Provider: Pedro Pablo Gaspar MD This is a 53-year-old male with PMHx of alcohol abuse, tobacco abuse, chronic systolic heart failure, CAD status post stenting and [place] in 2014, HTN, HLD, ischemic cardiomyopathy, DM type II, GERD, CKD stage III, history of pulmonary embolism, history of CVA with mild cognitive disability. He reports that he started having abdominal pain yesterday, and that this morning when he woke up had projectile vomiting with diffusely bloody emesis. Pt reports the last time he drank alcohol was about 3 years ago. Reports currently smokes cigarettes. This morning he took eliquis and plavix. Pt has also had several bowel movements today which are dark and tarry. Denies any bright red blood. Last time he ate was possibly Thursday night. He denies any severe abdominal pain at this time, pt has had indigestion. Pt reports having hx of pancreatitis and previously followed with [facility] in [place] where he was instructed to eventually get his gallbladder out, but just hasn't happened yet. His main complaint currently is that he has pain in his urethra and has a catheter in place, states the last change of it was about 3 months ago. He was supposed to have it changed 3days ago but deferred home health nursing to do so because it has been so painful recently. Allergies Allergy/AdvReac Type Severity Reaction Status Date / Time No Known Allergies Allergy Verified 03/13/24 15:19 Home Medications Medication Instructions Recorded Confirmed Type clopidogrel 75 mg tablet (Plavix) 75 mg PO QAM 06/05/21 03/13/24 History atorvastatin 20 mg tablet 20 mg PO QAM 09/08/23 03/13/24 History omeprazole 40 mg capsule,delayed 40 mg PO DAILYBB 09/08/23 03/13/24 History release lisinopril 10 mg tablet 10 mg PO BID #30 tabs 09/23/23 03/13/24 Rx spironolactone 25 mg tablet 25 mg PO QAM #30 tabs 09/23/23 03/13/24 Rx apixaban 5 mg tablet (Eliquis) 5 mg PO Q12H 10/08/23 03/13/24 History tamsulosin 0.4 mg capsule 0.4 mg PO HS #30 caps 10/09/23 03/13/24 Rx metoprolol succinate 50 mg 25 mg (1/2 x 50 mg) PO BID #30 tabs 10/12/23 03/13/24 Rx tablet,extended release 24 hr ropinirole 0.25 mg tablet 0.25 mg PO HS #30 tabs 10/12/23 03/13/24 Rx flash glucose sensor (FreeStyle #1 ea 01/01/24 03/08/24 History Yulissa 2 Sensor kit) lorazepam 0.5 mg tablet 0.5 mg PO Q6H PRN Anxiety 01/01/24 03/13/24 History metformin 500 mg tablet,extended 1,000 mg PO QAM 01/01/24 03/13/24 History release 24 hr sertraline 25 mg tablet 25 mg PO QAM 01/01/24 03/13/24 History furosemide 20 mg tablet 10 mg PO QAM 01/11/24 03/13/24 History mirtazapine 30 mg tablet 30 mg PO HS 01/11/24 03/13/24 History empagliflozin 10 mg tablet 10 mg PO QAM 01/19/24 03/13/24 History (Jardiance) oxybutynin chloride 10 mg 10 mg PO DAILY #30 tabs 03/08/24 03/13/24 Rx tablet,extended release 24 hr Past Med/Surg History Medical History CAD (coronary artery disease) (~2013) 2013 - NSTEMI s/p BRUCE to RCA Cardiac cath 09/22/23 ([facility])- no stents or bypass (did show three vessel CAD) Carotid stenosis, bilateral s/ right CEA (2019) CKD (chronic kidney disease), stage III Depression DM type 2 (diabetes mellitus, type 2) Hgb A1C 12.4 Only on Metformin as of 01/19/24 Dyslipidemia Enlarged prostate Giles catheter in place History of cerebrovascular accident (~2019) x5 "multiple mini strokes" [facility], no current neurologist, left arm "almost useless" and left side "doesn't work quite right" Most recent CVA 2020 per records History of suicidal ideation (~2020) voluntary admission [facility] Hx of congestive heart failure (~10/2023) [facility] Hx of pancreatitis Hx pulmonary embolism 09/08/23- bilateral PEs Hypertension Ischemic cardiomyopathy EF=20-25% 09/2023 LV (left ventricular) mural thrombus Noted on 09/17/23 ECHO- currently on Eliquis Surgical History Hx of cardiac catheterization (~09/2023) [facility], no stents Hx of endarterectomy (06/28/20) Right Carotid Endarterectomy with Bovine Patch Angioplasty Dr. Arita 06/28/2020 S/P drug eluting coronary stent placement (~2013) [facility], currently follows at [place] [facility] Cardio Family History Mother , age 68 from metastatic lung cancer Lung cancer Father No problems noted. 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[employer], 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 Feels Safe at Home: Yes Assistive Devices: Glasses and Other Review of Systems Review of Systems: Constitutional: No fever, sweats or chills Eyes: No diplopia, no worsening or blurred vision ENT: normal hearing, no trouble swallowing Respiratory: No cough, sputum, dyspnea at rest or on exertion Cardiovascular: No chest pain, tightness or palpitations Abdomen: + as per HPI, pain, nausea, vomiting, diarrhea or constipation Musculoskeletal: No joint pain, calf pain, swelling Neurologic: No weakness, numbness/tingling, or balance problems Psychiatric: No anxiety or depression Skin: No rash or itch Results & Data Results & Data Vital Signs (Past 12 Hours) Vital Signs Temp Pulse Resp BP Pulse Ox O2 Del Method O2 Flow Rate 03/13/24 18:03 36.8 C 103 H 18 132/82 99 03/13/24 17:58 112 H 18 125/76 97 2 03/13/24 17:39 36.8 C 106 H 18 117/69 100 2 03/13/24 17:09 36.8 C 104 H 18 112/68 100 4 03/13/24 16:56 18 03/13/24 16:54 37.1 C 113 H 18 118/76 100 03/13/24 16:40 138/83 03/13/24 16:40 112 H 16 89 L Nasal Cannula 2 03/13/24 16:35 37.0 C 113 H 17 124/90 93 2 03/13/24 16:30 124/90 03/13/24 16:30 117 H 17 03/13/24 16:23 119 H 03/13/24 16:20 194/114 H 03/13/24 16:15 147/123 H 03/13/24 16:10 108 H 24 03/13/24 16:00 172/95 H 03/13/24 16:00 112 H 22 100 03/13/24 15:53 112 H 03/13/24 15:50 113 H 20 03/13/24 15:50 168/120 H 03/13/24 15:48 115 H 22 03/13/24 15:48 167/99 H 03/13/24 15:47 113 H 22 03/13/24 15:30 153/86 H 03/13/24 15:30 107 H 21 03/13/24 15:20 105 H 16 100 03/13/24 15:20 133/79 03/13/24 15:19 106 H 20 95 03/13/24 15:19 103/79 03/13/24 15:16 106 H 24 03/13/24 15:16 96 Room Air 03/13/24 14:56 18 100 Nasal Cannula 2 03/13/24 14:56 37.5 C 104 H 18 133/79 100 Room Air Laboratory Results 03/13/24 16:50 Urine Culture - Pending Urine,Clean Catch 03/13/24 03/13/24 03/13/24 16:50 15:26 15:20 WBC RBC Hgb POC Hgb 8.2 L Hct POC Hct 24 L MCV MCH MCHC RDW Std Deviation RDW Coeff of Dione Plt Count MPV Immature Gran % (Auto) Neut % (Auto) Lymph % (Auto) [place] % (Auto) Eos % (Auto) Baso % (Auto) Neut # (Auto) Lymph # (Auto) [place] # (Auto) Eos # (Auto) Baso # (Auto) Immature Gran # (Auto) Hypochromasia PT INR POC Sodium 137 Sodium POC Potassium 5.9 H Potassium POC Chloride 112 Chloride Carbon Dioxide POC Total CO2 16 L Anion Gap POC Anion Gap 16.0 POC BUN 98 H BUN Creatinine POC Creatinine 4.1 H Est Cr Clr Drug Dosing Est GFR ( Amer) Est GFR (Non-Af Amer) BUN/Creatinine Ratio Glucose POC Glucose (other) 299 H Lactate 4.0 H* Calcium POC Ioniz Calcium Juan 1.32 Total Bilirubin AST ALT Alkaline Phosphatase Troponin I High Sens Total Protein Albumin Globulin Albumin/Globulin Ratio Lipase Urine Color Yellow Urine Appearance Cloudy A Urine pH 5.5 Ur Specific [place] 1.013 Urine Protein Trace H Urine Glucose (UA) 3+ H Urine Ketones Negative Urine Blood 1+ H Urine Nitrite Negative Urine Bilirubin Negative Urine Urobilinogen Negative Ur Leukocyte Esterase 2+ H Urine WBC (Auto) 11-20 H Urine RBC (Auto) 3-5 H U Hyaline Cast (Auto) 3-5 H U Epithel Cells (Auto) 0-2 Urine Bacteria (Auto) 1+ H Urine Sperm Present A Blood Type Blood Type Recheck O Positive Antibody Screen Crossmatch 03/13/24 15:18 WBC 24.17 H RBC 3.46 L Hgb 8.5 L POC Hgb Hct 27.2 L POC Hct MCV 78.6 L MCH 24.6 L MCHC 31.3 L RDW Std Deviation 47.4 H RDW Coeff of Dione 16.7 H Plt Count 262 MPV 9.7 Immature Gran % (Auto) 1.5 Neut % (Auto) 87.5 Lymph % (Auto) 4.9 [place] % (Auto) 5.9 Eos % (Auto) 0.0 Baso % (Auto) 0.2 Neut # (Auto) 21.15 H Lymph # (Auto) 1.18 L [place] # (Auto) 1.43 H Eos # (Auto) 0.00 Baso # (Auto) 0.05 Immature Gran # (Auto) 0.36 H Hypochromasia Present PT 12.6 H INR 1.2 H POC Sodium Sodium 136 POC Potassium Potassium 5.8 H POC Chloride Chloride 110 H Carbon Dioxide 16 L POC Total CO2 Anion Gap 10 POC Anion Gap POC BUN BUN 95 H Creatinine 3.48 H POC Creatinine Est Cr Clr Drug Dosing 22.2 Est GFR ( Amer) 22.0 Est GFR (Non-Af Amer) 18.9 BUN/Creatinine Ratio 27.3 H Glucose 319 H* POC Glucose (other) Lactate Calcium 8.4 L POC Ioniz Calcium Juan Total Bilirubin 0.4 AST 9 L ALT 16 Alkaline Phosphatase 64 Troponin I High Sens 18.7 Total Protein 5.4 L Albumin 2.8 L Globulin 2.6 Albumin/Globulin Ratio 1.1 Lipase 58 Urine Color Urine Appearance Urine pH Ur Specific [place] Urine Protein Urine Glucose (UA) Urine Ketones Urine Blood Urine Nitrite Urine Bilirubin Urine Urobilinogen Ur Leukocyte Esterase Urine WBC (Auto) Urine RBC (Auto) U Hyaline Cast (Auto) U Epithel Cells (Auto) Urine Bacteria (Auto) Urine Sperm Blood Type O Positive Blood Type Recheck Antibody Screen NEGATIVE Crossmatch See Detail Diagnostic Findings Chest X-Ray 03/13/24 15:16 XR chest 1V portable HISTORY: Hematemesis COMPARISON: Chest 09/15/2023. FINDINGS: There are low lung volumes. No pneumothorax. No pleural effusions. No focal lung consolidations to suggest a pneumonia. No evidence for pulmonary edema. The cardiac silhouette is borderline enlarged. There are calcifications within the aortic knob. No acute fractures. A few bibasilar densities favor subsegmental atelectasis or scarring. IMPRESSION: No acute process. ACT 112: Negative or not required by law. Electronically signed by: Servando Batres M.D. 03/13/2024 4:31 PM Abdomen/Pelvis CT 03/13/24 15:[address] WITHOUT CONTRAST CT DOSE: 845.31 mGy.cm HISTORY: Hematemesis TECHNIQUE: Multiaxial CT images of the abdomen and pelvis were performed without contrast. A dose lowering technique was utilized adhering to the principles of ALARA. COMPARISON STUDY: Abdomen and pelvis CT 10/09/2023. FINDINGS: The bilateral lower lobe wedge-shaped densities have improved. However, there is a residual 12 mm nodule within the right lower lobe with the prior consolidation. No pneumoperitoneum. No pneumatosis. No acute fractures identified. Moderate to severe distention of the stomach which is fluid-filled. This could represent a gastric outlet obstruction. However, no definite transition point as the proximal duodenum is also slightly distended and fluid- filled. The unenhanced liver, spleen, adrenal glands, and pancreas are unremarkable. Vascular calcifications noted within the renal sinuses. No defin ite renal or ureteral calculi. No hydronephrosis. The gallbladder is distended and thick-walled with surrounding pericholecystic edema/inflammatory change. This is high suspicious for an acute cholecystitis. Calcified plaque within the normal caliber abdominal aorta. No retroperitoneal or pelvic lymphadenopathy. Small fat-containing bilateral inguinal hernias. The bladder is decompressed by Giles catheter which appears in good position. Bladder wall thickening has improved. The colon is decompressed. Normal appendix. No bowel wall thickening. No evidence for a small bowel obstruction. IMPRESSION: 1. Moderate to severe distention of the stomach which is fluid-filled. This is concerning for gastric outlet obstruction. However, no clear transition point identified. 2. Distended and thick-walled gallbladder with pericholecystic inflammatory change/edema. This is highly suspicious for an acute cholecystitis. Surgical consultation recommended for further evaluation. 3. There is a 12 mm nodular density remaining at the area of consolidation within the right lower lobe seen on the prior study. [address] follow-up recommended to ensure stability/resolution. ACT 112: Negative or not required by law. Electronically signed by: Servando Batres M.D. 03/13/2024 5:08 PM Supervising Physician Co-Signing Physician Notes I have seen and discussed the case with the collaborating advanced practitioner. I agree with the above H&P. I have reviewed and confirmed the patients medical history, the findings on physical examination, and the patients diagnosis and treatment plan with Bernie JOE and agree with the information documented. In short, Mr. Bansal is a 53-year-old male with PMHx of alcohol abuse, tobacco abuse, chronic systolic heart failure, CAD status post stenting and [place] in 2014, HTN, HLD, ischemic cardiomyopathy, DM type II, GERD, CKD stage III, history of pulmonary embolism, history of CVA with mild cognitive disability who is also on plavix/eliquis who is admitted for acute blood loss anemia due to presumed UGIB. Patient reports feeling unwell for a few days, what he felt was GERD/reflux related--he then attempted to drink a large volume of water with hopes to vomit and feel better--however, this was met with profuse hematemesis. Patient does report dark stool for a couple or days but doesn't pay much attention to it. Patient comes with chronic giles, last placed 3 weeks ago. GENERAL APPEARANCE: AxOx3, ill appearing man, black residue from vomitus in johnson, mouth and nares, no acute distress. HEENT: NC, AT. MMM. EOMI, clear conjunctiva NECK: Supple without lymphadenopathy. No stiffness or restricted ROM. HEART: tachycardic, regular LUNGS: CTAB, moving air well. No crackles or wheezes are heard. ABDOMEN: RUQ++ tenderness, surgical scars on right flank from prior "drain placement" per patient , no lower abdominal discomfort EXTREMITIES: Without cyanosis, clubbing or edema. NEUROLOGICAL: Grossly nonfocal. Alert and oriented, moving all 4 extremities. CN not formally tested but appear grossly intact. Skin: general pallor : indwelling giles in place #Acute blood loss anemia, c/f UGIB s/p multiple 2 U PRBCs, 3+L fluid -s/p kcentra PPI drip, octreotide drip ICU monitoring overnight q4h H/H Appreciate electrolog operator support GI consult -EGD in am, however, will "scope sooner" if necessary Hemodynamic monitoring overnight #Hyperkalemia on labs -repeat BMP now, likely improved with notable IVF #BRUNA on CKD likely prerenal 2/2 hypotension Repeat bmp, follow IOs #Acute Cholecystitis Evaluated by surgery Conservative management with IV abx If no improvement in RUQ, will consider perc drain, but not ideal surgical candidate CTM, appreciate Gen Surg recs #LUTS #BPH Chronic indwelling giles, s/p placement 3 weeks ago Exchange now, 03/13 hold tamsulosin #Recent Pulmonary Emboli c/b Pulmonary Infarct Pulmonology Consult on 09/13/2023 -CTA more suggestive of pulm infarct that will likely resolve over time, can cause noninfectious leukocytosis per prior pulm reports -Was on eliquis for this; last dose was 03/13 in the am #Chronic heart failure with reduced ejection fraction, initially thought to be acute, but presentation less related to HFrEF #Left ventricular apical thrombus #Ischemic cardiomyopathy, severe coronary artery disease Presented with increasing shortness of breath and lower extremity edema, noted to be hypoxemic on room air ECHO 09/17 with EF 20-25%, severe hypokinesis & Left ventricular apical thrombus discovered in the setting of severe cardiomyopathy Status post cardiac cath 09/22: Three-vessel coronary artery disease with markedly elevated left end-diastolic pressure. Diffuse coronary atherosclerosis but degree of coronary disease disproportionate to degree of systolic dysfunction -Was on plavix, eliquis combo for thrombus/severe CAD -On metoprolol 25mg XL BID; hold, IV metoprolol 2.5mg IV q4h -Hold all antihypertensives (lisinopril 10mg BID, Jardiance, spironolactone) #ASCVD #Prior Stroke -2019, on statin Will resume when able #DM type 2 (diabetes mellitus, type 2) ICU glycemic management Rest of plan as above I spent a total of 45 minutes coordinating, documenting, and providing care for this patient excluding time spent in the performance of separately billed services. All of the aforementioned completed outside of collaborating with the assigned advanced practitioner for a full treatment plan. I have reviewed the advanced practitioner's documentation, and I agree with, and take responsibility for the plan of care (6) Hypertension Hypertension type: unspecified Qualified Code(s): I10 - Essential (primary) hypertension
--- NOTE | 2024-03-13 19:15 | Surgery Consultation ---
Date of Consultation March 13, 2024 Assessment & Plan (1) Acute upper GI bleed: (2) Acute cholecystitis: Plan 53-year-old gentleman presents with massive upper GI bleed as well as what appears to be acute cholecystitis on CT scan. He has a very significant cardiac history, is on Eliquis and Plavix, has drug-eluting stents, and has a cardiac ejection fraction of 20%. He is a very high surgical risk. His main problem is the upper GI bleed. GI has been consulted. He needs urgent to emergent endoscopy for further evaluation and possible treatment of the upper GI bleed. As for the acute cholecystitis, I would recommend IV antibiotic therapy. He is a very high surgical risk and I would not recommend any surgical management at this time. If the and IV antibiotics are not improving his condition, I would recommend percutaneous cholecystostomy tube. He will need ongoing resuscitation and will be admitted to the intensive care unit. We will follow along. History of Present Illness Reason for Consultation: Acute cholecystitis Requesting Physician: Chase Hernandez MD Attending Physician: Chase Hernandez MD History of Present Illness This is a 53-year-old male with PMHx of alcohol abuse, tobacco abuse, chronic systolic heart failure, CAD status post stenting and NV in 2013, HTN, HLD, ischemic cardiomyopathy, DM type II, GERD, CKD stage III, history of pulmonary embolism, history of CVA with mild cognitive disability. He reports that he started having abdominal pain yesterday, and that this morning when he woke up had projectile vomiting with diffusely bloody emesis. Pt reports the last time he drank alcohol was about 3 years ago. Reports currently smokes cigarettes. This morning he took eliquis and plavix. Pt has also had several bowel movements today which are dark and tarry. Denies any bright red blood. Last time he ate was possibly Thursday night. He denies any severe abdominal pain at this time, pt has had indigestion. Pt reports having hx of pancreatitis and previously followed with [facility] in [place] where he was instructed to eventually get his gallbladder out, but just hasn't happened yet. since being in the hospital, he has had 2 further episodes of bloody emesis. He is currently receiving a unit of blood. On CT scan, he appears to have acute cholecystitis. Of note, his Cardiac EF is 20%. Allergies Allergy/AdvReac Type Severity Reaction Status Date / Time No Known Allergies Allergy Verified 03/13/24 15:19 Home Medications Medication Instructions Recorded Confirmed Type clopidogrel 75 mg tablet (Plavix) 75 mg PO QAM 06/05/21 03/13/24 History atorvastatin 20 mg tablet 20 mg PO QAM 09/08/23 03/13/24 History omeprazole 40 mg capsule,delayed 40 mg PO DAILYBB 09/08/23 03/13/24 History release lisinopril 10 mg tablet 10 mg PO BID #30 tabs 09/23/23 03/13/24 Rx spironolactone 25 mg tablet 25 mg PO QAM #30 tabs 09/23/23 03/13/24 Rx apixaban 5 mg tablet (Eliquis) 5 mg PO Q12H 10/08/23 03/13/24 History tamsulosin 0.4 mg capsule 0.4 mg PO HS #30 caps 10/09/23 03/13/24 Rx metoprolol succinate 50 mg 25 mg (1/2 x 50 mg) PO BID #30 tabs 10/12/23 03/13/24 Rx tablet,extended release 24 hr ropinirole 0.25 mg tablet 0.25 mg PO HS #30 tabs 10/12/23 03/13/24 Rx flash glucose sensor (FreeStyle #1 ea 01/01/24 03/08/24 History Yulissa 2 Sensor kit) lorazepam 0.5 mg tablet 0.5 mg PO Q6H PRN Anxiety 01/01/24 03/13/24 History metformin 500 mg tablet,extended 1,000 mg PO QAM 01/01/24 03/13/24 History release 24 hr sertraline 25 mg tablet 25 mg PO QAM 01/01/24 03/13/24 History furosemide 20 mg tablet 10 mg PO QAM 01/11/24 03/13/24 History mirtazapine 30 mg tablet 30 mg PO HS 01/11/24 03/13/24 History empagliflozin 10 mg tablet 10 mg PO QAM 01/19/24 03/13/24 History (Jardiance) oxybutynin chloride 10 mg 10 mg PO DAILY #30 tabs 03/08/24 03/13/24 Rx tablet,extended release 24 hr Patient History Medical History Rushing catheter in place Enlarged prostate Hx pulmonary embolism 09/08/23- bilateral PEs History of suicidal ideation (~2020) voluntary admission [facility] Hx of congestive heart failure (~10/2023) [facility] Hx of pancreatitis LV (left ventricular) mural thrombus Noted on 09/17/23 ECHO- currently on Eliquis CKD (chronic kidney disease), stage III Ischemic cardiomyopathy EF=20-25% 09/2023 Dyslipidemia Depression CAD (coronary artery disease) (~2013) 2013 - NSTEMI s/p BRUCE to RCA Cardiac cath 09/22/23 ([facility])- no stents or bypass (did show three vessel CAD) DM type 2 (diabetes mellitus, type 2) Hgb A1C 12.4 Only on Metformin as of 01/19/24 History of cerebrovascular accident (~2019) x5 "multiple mini strokes" [facility], no current neurologist, left arm "almost useless" and left side "doesn't work quite right" Most recent CVA 2020 per records Carotid stenosis, bilateral s/ right CEA (2019) Hypertension Surgical History Hx of cardiac catheterization (~09/2023) [facility], no stents Hx of endarterectomy (06/28/20) Right Carotid Endarterectomy with Bovine Patch Angioplasty Dr. Arita 06/28/2020 S/P drug eluting coronary stent placement (~2013) [facility], currently follows at [facility] Cardio Family History Mother , age 68 from metastatic lung cancer Lung cancer Father No problems noted. 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 Feels Safe at Home: Yes Assistive Devices: Glasses and Other Review of Systems Review of Systems: All systems reviewed & are unremarkable except as noted in HPI & below Physical Exam Constitutional: WD/WN, vitals as above Eyes: PERRL, conjunctivae normal, anicteric sclerae Neck: trachea midline, no thyromegaly Respiratory: normal respiratory effort; no respiratory distress and no labored breathing Cardiovascular: Rate/Rhythm: regular rate and regular rhythm Gastrointestinal (Abdomen): Inspection/Auscultation: abdomen normal to inspection; abdomen not distended Percussion/Palpation: + abdomen tender ( RUQ) and abdomen soft; no guarding and abdomen not rigid Skin: no rashes, warm and dry Psychiatric: A+Ox3, euthymic affect Results & Data Vital Signs (Past 12 Hours) Vital Signs Temp Pulse Pulse Resp BP BP Pulse Ox 03/13/24 19:00 99 H 16 137/82 98 03/13/24 18:36 102 H 18 148/79 H 99 03/13/24 18:21 36.8 C 98 H 18 124/73 96 03/13/24 18:05 36.8 C 113 H 19 132/82 98 03/13/24 18:03 36.8 C 103 H 18 132/82 99 03/13/24 18:00 103 H 17 98 03/13/24 18:00 132/82 03/13/24 18:00 107 H 18 132/82 96 03/13/24 17:58 112 H 18 125/76 97 03/13/24 17:57 125/76 03/13/24 17:57 101 H 14 99 03/13/24 17:50 100 H 17 98 03/13/24 17:49 127/79 03/13/24 17:49 100 H 10 L 99 03/13/24 17:40 124/66 03/13/24 17:40 97 H 18 100 03/13/24 17:39 36.8 C 106 H 18 117/69 100 03/13/24 17:30 117/69 03/13/24 17:30 117/69 03/13/24 17:30 109 H 20 99 03/13/24 17:20 124/74 03/13/24 17:20 124/74 03/13/24 17:20 103 H 16 100 03/13/24 17:10 106 H 18 100 03/13/24 17:10 112/68 03/13/24 17:09 36.8 C 104 H 18 112/68 100 03/13/24 17:00 127/87 03/13/24 17:00 127/87 03/13/24 17:00 115 H 15 100 03/13/24 16:56 18 03/13/24 16:54 37.1 C 113 H 18 118/76 100 03/13/24 16:50 118/76 03/13/24 16:50 118/76 03/13/24 16:50 113 H 18 03/13/24 16:40 138/83 03/13/24 16:40 112 H 16 89 L 03/13/24 16:35 37.0 C 113 H 17 124/90 93 03/13/24 16:30 124/90 03/13/24 16:30 117 H 17 03/13/24 16:23 119 H 03/13/24 16:20 194/114 H 03/13/24 16:15 147/123 H 03/13/24 16:10 108 H 24 03/13/24 16:00 172/95 H 03/13/24 16:00 112 H 22 100 03/13/24 15:53 112 H 03/13/24 15:50 113 H 20 03/13/24 15:50 168/120 H 03/13/24 15:48 115 H 22 03/13/24 15:48 167/99 H 03/13/24 15:47 113 H 22 03/13/24 15:30 153/86 H 03/13/24 15:30 107 H 21 03/13/24 15:20 105 H 16 100 03/13/24 15:20 133/79 03/13/24 15:19 106 H 20 95 03/13/24 15:19 103/79 03/13/24 15:16 106 H 24 03/13/24 15:16 96 03/13/24 14:56 18 100 03/13/24 14:56 37.5 C 104 H 18 133/79 100 O2 Del Method O2 Flow Rate 03/13/24 19:00 03/13/24 18:36 2 03/13/24 18:21 03/13/24 18:05 03/13/24 18:03 03/13/24 18:00 03/13/24 18:00 03/13/24 18:00 Room Air 03/13/24 17:58 2 03/13/24 17:57 03/13/24 17:57 03/13/24 17:50 03/13/24 17:49 03/13/24 17:49 03/13/24 17:40 03/13/24 17:40 03/13/24 17:39 2 03/13/24 17:30 03/13/24 17:30 03/13/24 17:30 03/13/24 17:20 03/13/24 17:20 03/13/24 17:20 03/13/24 17:10 03/13/24 17:10 03/13/24 17:09 4 03/13/24 17:00 03/13/24 17:00 03/13/24 17:00 03/13/24 16:56 03/13/24 16:54 03/13/24 16:50 03/13/24 16:50 03/13/24 16:50 03/13/24 16:40 03/13/24 16:40 Nasal Cannula 2 03/13/24 16:35 2 03/13/24 16:30 03/13/24 16:30 03/13/24 16:23 03/13/24 16:20 03/13/24 16:15 03/13/24 16:10 03/13/24 16:00 03/13/24 16:00 03/13/24 15:53 03/13/24 15:50 03/13/24 15:50 03/13/24 15:48 03/13/24 15:48 03/13/24 15:47 03/13/24 15:30 03/13/24 15:30 03/13/24 15:20 03/13/24 15:20 03/13/24 15:19 03/13/24 15:19 03/13/24 15:16 03/13/24 15:16 Room Air 03/13/24 14:56 Nasal Cannula 2 03/13/24 14:56 Room Air Laboratory Results 03/13/24 03/13/24 03/13/24 Range/Units 16:50 15:26 15:20 WBC (4.8-10.8) K/ul RBC (4.70-6.10) M/uL Hgb (14.0-18.0) g/dl POC Hgb 8.2 L (14.0-18.0) g/dl Hct (42.0-52.0) % POC Hct 24 L (42-52) % MCV (80.0-100.0) fL MCH (25.0-34.0) pg MCHC (32.0-36.0) g/dL RDW Std Deviation (36.4-46.3) fL RDW Coeff of Dione (11.5-14.5) % Plt Count (130-400) K/uL MPV (9.4-12.4) fL Immature Gran % (Auto) % Neut % (Auto) % Lymph % (Auto) % Lynn % (Auto) % Eos % (Auto) % Baso % (Auto) % Neut # (Auto) (1.40-6.50) K/uL Lymph # (Auto) (1.20-3.40) K/uL Lynn # (Auto) (0.11-0.59) K/uL Eos # (Auto) (0.00-0.50) K/uL Baso # (Auto) (0.00-0.20) K/uL Immature Gran # (Auto) (0.01-0.20) K/uL Hypochromasia PT (9.0-12.0) Seconds INR (0.9-1.1) POC Sodium 137 (135-144) mmol/L Sodium (136-145) mmol/L POC Potassium 5.9 H (3.3-5.0) mmol/L Potassium (3.5-5.1) mmol/L POC Chloride 112 (101-112) mmol/L Chloride (98-107) mmol/L Carbon Dioxide (21-32) mmol/L POC Total CO2 16 L (24-31) mmol/L Anion Gap (3-11) POC Anion Gap 16.0 (16-25) mmol/L POC BUN 98 H (7-18) mg/dl BUN (6-23) mg/dl Creatinine (0.6-1.4) mg/dl POC Creatinine 4.1 H (0.6-1.3) mg/dl Est Cr Clr Drug Dosing ml/min Est GFR ( Amer) ml/min Est GFR (Non-Af Amer) ml/min BUN/Creatinine Ratio (10-20) Glucose (70-99(Fasting)) mg/dl POC Glucose (other) 299 H (70-99) mg/dl Lactate 4.0 H* (0.4-2.0) mmol/L Calcium (8.6-10.3) mg/dl POC Ioniz Calcium Juan 1.32 (1.12-1.32) mmol/l Total Bilirubin (0.2-1.0) mg/dl AST (13-39) U/L ALT (7-52) U/L Alkaline Phosphatase (34-104) U/L Troponin I High Sens (0-20) pg/ml Total Protein (6.0-8.3) gm/dl Albumin (3.4-5.0) gm/dl Globulin (2.5-4.0) gm/dl Albumin/Globulin Ratio (0.9-2) Lipase (11-82) U/L Urine Color Yellow Urine Appearance Cloudy A (Clear) Urine pH 5.5 (4.5-7.5) Ur Specific Remington 1.013 (1.000-1.030) Urine Protein Trace H (Negative) Urine Glucose (UA) 3+ H (Negative) Urine Ketones Negative (Negative) Urine Blood 1+ H (Negative) Urine Nitrite Negative (Negative) Urine Bilirubin Negative (Negative) Urine Urobilinogen Negative (Negative) Ur Leukocyte Esterase 2+ H (Negative) Urine WBC (Auto) 11-20 H (0-5) /hpf Urine RBC (Auto) 3-5 H (0-2) /hpf U Hyaline Cast (Auto) 3-5 H (0-2) /lpf U Epithel Cells (Auto) 0-2 (0-2) /hpf Urine Bacteria (Auto) 1+ H (None Seen) Urine Sperm Present A (None Prsent) Blood Type Blood Type Recheck O Positive Antibody Screen Crossmatch 03/13/24 Range/Units 15:18 WBC 24.17 H (4.8-10.8) K/ul RBC 3.46 L (4.70-6.10) M/uL Hgb 8.5 L (14.0-18.0) g/dl POC Hgb (14.0-18.0) g/dl Hct 27.2 L (42.0-52.0) % POC Hct (42-52) % MCV 78.6 L (80.0-100.0) fL MCH 24.6 L (25.0-34.0) pg MCHC 31.3 L (32.0-36.0) g/dL RDW Std Deviation 47.4 H (36.4-46.3) fL RDW Coeff of Dione 16.7 H (11.5-14.5) % Plt Count 262 (130-400) K/uL MPV 9.7 (9.4-12.4) fL Immature Gran % (Auto) 1.5 % Neut % (Auto) 87.5 % Lymph % (Auto) 4.9 % Lynn % (Auto) 5.9 % Eos % (Auto) 0.0 % Baso % (Auto) 0.2 % Neut # (Auto) 21.15 H (1.40-6.50) K/uL Lymph # (Auto) 1.18 L (1.20-3.40) K/uL Lynn # (Auto) 1.43 H (0.11-0.59) K/uL Eos # (Auto) 0.00 (0.00-0.50) K/uL Baso # (Auto) 0.05 (0.00-0.20) K/uL Immature Gran # (Auto) 0.36 H (0.01-0.20) K/uL Hypochromasia Present PT 12.6 H (9.0-12.0) Seconds INR 1.2 H (0.9-1.1) POC Sodium (135-144) mmol/L Sodium 136 (136-145) mmol/L POC Potassium (3.3-5.0) mmol/L Potassium 5.8 H (3.5-5.1) mmol/L POC Chloride (101-112) mmol/L Chloride 110 H (98-107) mmol/L Carbon Dioxide 16 L (21-32) mmol/L POC Total CO2 (24-31) mmol/L Anion Gap 10 (3-11) POC Anion Gap (16-25) mmol/L POC BUN (7-18) mg/dl BUN 95 H (6-23) mg/dl Creatinine 3.48 H (0.6-1.4) mg/dl POC Creatinine (0.6-1.3) mg/dl Est Cr Clr Drug Dosing 22.2 ml/min Est GFR ( Amer) 22.0 ml/min Est GFR (Non-Af Amer) 18.9 ml/min BUN/Creatinine Ratio 27.3 H (10-20) Glucose 319 H* (70-99(Fasting)) mg/dl POC Glucose (other) (70-99) mg/dl Lactate (0.4-2.0) mmol/L Calcium 8.4 L (8.6-10.3) mg/dl POC Ioniz Calcium Juan (1.12-1.32) mmol/l Total Bilirubin 0.4 (0.2-1.0) mg/dl AST 9 L (13-39) U/L ALT 16 (7-52) U/L Alkaline Phosphatase 64 (34-104) U/L Troponin I High Sens 18.7 (0-20) pg/ml Total Protein 5.4 L (6.0-8.3) gm/dl Albumin 2.8 L (3.4-5.0) gm/dl Globulin 2.6 (2.5-4.0) gm/dl Albumin/Globulin Ratio 1.1 (0.9-2) Lipase 58 (11-82) U/L Urine Color Urine Appearance (Clear) Urine pH (4.5-7.5) Ur Specific Remington (1.000-1.030) Urine Protein (Negative) Urine Glucose (UA) (Negative) Urine Ketones (Negative) Urine Blood (Negative) Urine Nitrite (Negative) Urine Bilirubin (Negative) Urine Urobilinogen (Negative) Ur Leukocyte Esterase (Negative) Urine WBC (Auto) (0-5) /hpf Urine RBC (Auto) (0-2) /hpf U Hyaline Cast (Auto) (0-2) /lpf U Epithel Cells (Auto) (0-2) /hpf Urine Bacteria (Auto) (None Seen) Urine Sperm (None Prsent) Blood Type O Positive Blood Type Recheck Antibody Screen NEGATIVE Crossmatch See Detail Diagnostic Findings ABDOMEN AND PELVIS CT WITHOUT CONTRAST CT DOSE: 845.31 mGy.cm HISTORY: Hematemesis TECHNIQUE: Multiaxial CT images of the abdomen and pelvis were performed without contrast. A dose lowering technique was utilized adhering to the principles of ALARA. COMPARISON STUDY: Abdomen and pelvis CT 10/09/2023. FINDINGS: The bilateral lower lobe wedge-shaped densities have improved. However, there is a residual 12 mm nodule within the right lower lobe with the p rior consolidation. No pneumoperitoneum. No pneumatosis. No acute fractures identified. Moderate to severe distention of the stomach which is fluid-filled. This could represent a gastric outlet obstruction. However, no definite transition point as the proximal duodenum is also slightly distended and fluid- filled. The unenhanced liver, spleen, adrenal glands, and pancreas are unremarkable. Vascular calcifications noted within the renal sinuses. No definite renal or ureteral calculi. No hydronephrosis. The gallbladder is distended and thick-walled with surrounding pericholecystic edema/inflammatory change. This is high suspicious for an acute cholecystitis. Calcified plaque within the normal caliber abdominal aorta. No retroperitoneal or pelvic lymphadenopathy. Small fat-containing bilateral inguinal hernias. The bladder is decompressed by Rushing catheter which appears in good position. Bladder wall thickening has improved. The colon is decompressed. Normal appendix. No bowel wall thickening. No evidence for a small bowel obstruction. IMPRESSION: 1. Moderate to severe distention of the stomach which is fluid-filled. This is concerning for gastric outlet obstruction. However, no clear transition point identified. 2. Distended and thick-walled gallbladder with pericholecystic inflammatory change/edema. This is highly suspicious for an acute cholecystitis. Surgical consultation recommended for further evaluation. 3. There is a 12 mm nodular density remaining at the area of consolidation within the right lower lobe seen on the prior study. [address] follow-up recommended to ensure stability/resolution.
--- NOTE | 2024-03-13 19:25 | Critical Care Consultation ---
Date of Consultation March 13, 2024 Assessment & Plan (1) Acute blood loss anemia: (2) Acute cholecystitis: (3) Acute upper GI bleed: (4) BPH loc w urin obs/LUTS: (5) Acute systolic CHF (congestive heart failure): Plan Reason Critically Ill: 53 YOM admitted to ICU following hematemesis at home and x1 in EMD. ICU for hemodynamic monitoring, further resuscitation if required and following of symptoms and hgb counts Neuro - HX MCA CVA CAM ICU: Negative - No acute needs at this time - Will be holding his Eliquis as well as his plavix until hemostasis is ensured and no further evidence of bleeding Cardiac - Acute blood loss anemia with organ dysfunction, Hx CAD, HF, on chronic anticoagulation - Patient with hematemesis and hypovolemia- hemodynamics have remained stable from a MAP standpoint, Tachycardia has responded to prior resuscitation - organ dysfunction noted with BRUNA - follow lactate and MAPS - ECG with nonspecific ST changes - currently no chest pain and ECG is without STEMI- hx of CAD- 3v- last evaluated via cath 09/2023 - Hold BB, hold diuretics, hold KATELYN at this time until hemodynamics proven stable- tachycardia secondary to acute blood loss - improved - ECG as needed Respiratory - Hx PE - currently no acute needs - hold anticoagulation as above GI - Acute choley, Acute GI bleed upper, cirrhosis-hepatic steatosis, - Appreciate surgical evaluation- continue with abx- if worsening - recs transfer for perc drain - follow clinically - LFTs in am- currently normal LFTs, normal bili, no jaundice - GI Bleed with hematemesis- no known history of variceal, however clinically equivocal cirrhosis from fatty liver disease noted - Opal- 17 - GI consulted plan for endoscopic evaluation in am, unless clinically deteriorates - Hold on further resuscitation at this time to avoid over resuscitation - follow HGB and MAPS - Continue Protonix infusion as well as Octreotide - Recheck INR following PCC administration - maintain normal calcium levels - Trend lactate - NPO RENAL/LYTES - BRUNA, BPH with chronic Giles catheter, metabolic acidosis, hyperkalemia - continue supportive efforts- trend Renal function - likely pre-renal at this time - ICU electrolyte protocol - metabolic acidosis likely multifactorial with metformin on board, elevated glucose, elevated renal indices,hypovolemia and a lactate- continue with supportive care - doubt dka at this time as Non gap and BG at 319- follow - Hyperkalemia should improve with correction of acidosis - which at this time is likely hypovolemia - follow BMP - if needed will ad isotonic bicarb infusion - BPH with LUTS - has been followed for TURP however has not been completed and remains with chronic indwelling Giles - change giles catheter on arrival patient reports has been in x 3 weeks ENDO - DMII - BG elevated on arrival - ICU hyperglycemia protocol HEME - Acute blood loss anemia, chronic use of anticoagulation (eliquis) - HGB on arrival was 8.5 and received 2 units PRBC- transfuse for active hemorrhage, myocardial ischemia, or worsening organ dysfunction - Last dose of Eliquis 03/13/24 in am ~ 0900- PCC received at 1530 - if further bleeding occurs will add on fibrinogen level as well with history of equivalent cirrhosis ID - Cholecystitis, cirrhosis, sepsis - small amount of ascites noted - Meets SIRS criteria and source- sepsis can't be excluded- however hemodynamics likely secondary to acute blood loss - Continue broad spectrum antibiotics - blood and urine cultures pending LINES/IV ACCESS - PIV x3, Giles Maintain 2 large bore IVs- 18g or better Continue use of these lines DVT PROPHYLAXIS - SCDS, chemoprophylaxis contraindicated at this time until hemostasis is ensured DISPO: ICU until bleeding risk and hemodynamics proven stable I have personally spent 50 minutes of critical care time in the direct management of this patient. This is a life/limb threatening event. This includes time spent evaluating patient, direct bedside care, chart review, placing orders, interpretation of diagnostic studies, discussion with consultants, patient, and family members, as well as other required patient management activities. This time is exclusive of all separately billable procedures, and teaching time and separate from and in addition to any other critical care service time. Thank you for allowing us to participate in the care of this patient. Please refer to my attending physician's documentation for any further recommendations. History of Present Illness Reason for Consultation: hemataemisis Requesting Physician: Aissatou Jansen MD Attending Physician: Lorraine aJnsen MD History of Present Illness 53 YOM with medical history of: CAD, Chronic pancreatitis with pseudocyst, walled off gastric perforation, cirrhosis, MCA cva, PE, HF, LV thromboses, PE and BPH. Patient presents to the EMD today secondary to calling EMS for hematemesis. Patient reports that everything seems to have started on 03/12/2024 with persistent nauseated feeling, where he didn't really eat or drink too much. He noted some diarrhea, however can't recall their color. This morning he was noting himself being dizzy as well as generalized weakness. He reports that he had one episode of hematemesis at home prior to calling EMS and feels that this was around 1400 or so. ER chart review reports that per EMS estimate, the patient had 1/2 gallon of hematemesis when they arrived. Patient arrived to the EMD with BP 150-160s, HR 114-117, HGB of 8, Lactate of 4. He reportedly received 3-4 liters of crystalloid between EMS and EMD resuscitation as well as 2 units PRBC that is already transfusing while in EMD and finished on arrival to the ICU. He was also given PCC as he is on Eliquis at 1520. Last dose of Eliquis was taken this morning. GI has been consulted by EMD and admitting pr martin, available for endoscopy if patient clinically deteriorates tonight, however planned for am. Patient was admitted to ICU for hemodynamic monitoring and concern for acute hemorrhage. Continue protonix and octreotide infusions. CODE: FULL Allergies Allergy/AdvReac Type Severity Reaction Status Date / Time No Known Allergies Allergy Verified 03/13/24 15:19 Home Medications Medication Instructions Recorded Confirmed Type clopidogrel 75 mg tablet (Plavix) 75 mg PO QAM 06/05/21 03/13/24 History atorvastatin 20 mg tablet 20 mg PO QAM 09/08/23 03/13/24 History omeprazole 40 mg capsule,delayed 40 mg PO DAILYBB 09/08/23 03/13/24 History release lisinopril 10 mg tablet 10 mg PO BID #30 tabs 09/23/23 03/13/24 Rx spironolactone 25 mg tablet 25 mg PO QAM #30 tabs 09/23/23 03/13/24 Rx apixaban 5 mg tablet (Eliquis) 5 mg PO Q12H 10/08/23 03/13/24 History tamsulosin 0.4 mg capsule 0.4 mg PO HS #30 caps 10/09/23 03/13/24 Rx metoprolol succinate 50 mg 25 mg (1/2 x 50 mg) PO BID #30 tabs 10/12/23 03/13/24 Rx tablet,extended release 24 hr ropinirole 0.25 mg tablet 0.25 mg PO HS #30 tabs 10/12/23 03/13/24 Rx flash glucose sensor (FreeStyle #1 ea 01/01/24 03/08/24 History Yulissa 2 Sensor kit) lorazepam 0.5 mg tablet 0.5 mg PO Q6H PRN Anxiety 01/01/24 03/13/24 History metformin 500 mg tablet,extended 1,000 mg PO QAM 01/01/24 03/13/24 History release 24 hr sertraline 25 mg tablet 25 mg PO QAM 01/01/24 03/13/24 History furosemide 20 mg tablet 10 mg PO QAM 01/11/24 03/13/24 History mirtazapine 30 mg tablet 30 mg PO HS 01/11/24 03/13/24 History empagliflozin 10 mg tablet 10 mg PO QAM 01/19/24 03/13/24 History (Jardiance) oxybutynin chloride 10 mg 10 mg PO DAILY #30 tabs 03/08/24 03/13/24 Rx tablet,extended release 24 hr Patient History Medical History Giles catheter in place Enlarged prostate Hx pulmonary embolism 09/08/23- bilateral PEs History of suicidal ideation (~2020) voluntary admission [facility] Hx of congestive heart failure (~10/2023) [facility] Hx of pancreatitis LV (left ventricular) mural thrombus Noted on 09/17/23 ECHO- currently on Eliquis CKD (chronic kidney disease), stage III Ischemic cardiomyopathy EF=20-25% 09/2023 Dyslipidemia Depression CAD (coronary artery disease) (~2013) 2014 - NSTEMI s/p BRUCE to RCA Cardiac cath 09/22/23 ([facility])- no stents or bypass (did show three vessel CAD) DM type 2 (diabetes mellitus, type 2) Hgb A1C 12.4 Only on Metformin as of 01/19/24 History of cerebrovascular accident (~2019) x5 "multiple mini strokes" [facility], no current neurologist, left arm "almost useless" and left side "doesn't work quite right" Most recent CVA 2020 per records Carotid stenosis, bilateral s/ right CEA (2019) Hypertension Surgical History Hx of cardiac catheterization (~09/2023) [facility], no stents Hx of endarterectomy (06/28/20) Right Carotid Endarterectomy with Bovine Patch Angioplasty Dr. Arita 06/28/2020 S/P drug eluting coronary stent placement (~2013) [facility], currently follows at [facility] Family History Mother , age 68 from metastatic lung cancer Lung cancer Father No problems noted. 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 Feels Safe at Home: Yes Assistive Devices: Walker Review of Systems Review of Systems: REVIEW OF SYSTEMS: Constitutional: No fever, sweats or chills Eyes: No diplopia, no worsening or blurred vision ENT: normal hearing, no trouble swallowing Respiratory: No cough, sputum, dyspnea at rest or on exertion Cardiovascular: No chest pain, tightness or palpitations Abdomen: (+) n/v, hematemesis, No pain, diarrhea or constipation Musculoskeletal: No joint pain, calf pain, swelling Neurologic: (+) chronic left sided weakness, no new numbness/tingling, or balance problems Psychiatric: No anxiety or depression Skin: No rash or itch Physical Exam Physical Exam: PHYSICAL EXAM: General: awake, alert, no apparent distress Head: Normocephalic, atraumatic ENT: PERRL, EOMI, no pharyngeal exudate, mucous membranes dry Neuro: AAO x 3, speech clear and appropriate, strength intact bilaterally 5/5 right, 4/5 left residual noted from previous MCA CVA, sensation intact and equal all extremities and dermatomes, no pronator drift Chest: equal rise and fall of the chest, no accessory muscle use, no heaves or thrills, Clear to auscultation, on room air, Cardiac: Regular rate and rhythm, telemetry reviewed- NSR, skin warm dry, cap refill <3 seconds, peripheral pulses +2 no JVD, no murmur, no edema, warm and dry GI: NABS x 4 quadrants, soft, nontender to palpation, no rebound, guarding or tenderness : chronic indwelling giles catheter Psych: Normal mood and affect Skin: no rash or erythema Results & Data Results & Data Vital Signs (Past 12 Hours) Vital Signs Temp Pulse Pulse Resp BP BP Pulse Ox 03/13/24 19:00 99 H 16 137/82 98 03/13/24 18:36 102 H 18 148/79 H 99 03/13/24 18:21 36.8 C 98 H 18 124/73 96 03/13/24 18:05 36.8 C 113 H 19 132/82 98 03/13/24 18:03 36.8 C 103 H 18 132/82 99 03/13/24 18:00 103 H 17 98 03/13/24 18:00 132/82 03/13/24 18:00 107 H 18 132/82 96 03/13/24 17:58 112 H 18 125/76 97 03/13/24 17:57 125/76 03/13/24 17:57 101 H 14 99 03/13/24 17:50 100 H 17 98 03/13/24 17:49 127/79 03/13/24 17:49 100 H 10 L 99 03/13/24 17:40 124/66 03/13/24 17:40 97 H 18 100 03/13/24 17:39 36.8 C 106 H 18 117/69 100 03/13/24 17:30 117/69 03/13/24 17:30 117/69 03/13/24 17:30 109 H 20 99 03/13/24 17:20 124/74 03/13/24 17:20 124/74 03/13/24 17:20 103 H 16 100 03/13/24 17:10 106 H 18 100 03/13/24 17:10 112/68 03/13/24 17:09 36.8 C 104 H 18 112/68 100 03/13/24 17:00 127/87 04/28/24 17:00 127/87 03/13/24 17:00 115 H 15 100 03/13/24 16:56 18 03/13/24 16:54 37.1 C 113 H 18 118/76 100 03/13/24 16:50 118/76 03/13/24 16:50 118/76 03/13/24 16:50 113 H 18 03/13/24 16:40 138/83 03/13/24 16:40 112 H 16 89 L 03/13/24 16:35 37.0 C 113 H 17 124/90 93 03/13/24 16:30 124/90 03/13/24 16:30 117 H 17 03/13/24 16:23 119 H 03/13/24 16:20 194/114 H 03/13/24 16:15 147/123 H 03/13/24 16:10 108 H 24 03/13/24 16:00 172/95 H 03/13/24 16:00 112 H 22 100 03/13/24 15:53 112 H 03/13/24 15:50 113 H 20 03/13/24 15:50 168/120 H 03/13/24 15:48 115 H 22 03/13/24 15:48 167/99 H 03/13/24 15:47 113 H 22 03/13/24 15:30 153/86 H 03/13/24 15:30 107 H 21 03/13/24 15:20 105 H 16 100 03/13/24 15:20 133/79 03/13/24 15:19 106 H 20 95 03/13/24 15:19 103/79 03/13/24 15:16 106 H 24 03/13/24 15:16 96 03/13/24 14:56 18 100 03/13/24 14:56 37.5 C 104 H 18 133/79 100 O2 Del Method O2 Flow Rate 03/13/24 19:00 03/13/24 18:36 2 03/13/24 18:21 03/13/24 18:05 03/13/24 18:03 03/13/24 18:00 03/13/24 18:00 03/13/24 18:00 Room Air 03/13/24 17:58 2 03/13/24 17:57 03/13/24 17:57 03/13/24 17:50 03/13/24 17:49 03/13/24 17:49 03/13/24 17:40 03/13/24 17:40 03/13/24 17:39 2 03/13/24 17:30 03/13/24 17:30 03/13/24 17:30 03/13/24 17:20 03/13/24 17:20 03/13/24 17:20 03/13/24 17:10 03/13/24 17:10 03/13/24 17:09 4 03/13/24 17:00 03/13/24 17:00 03/13/24 17:00 03/13/24 16:56 03/13/24 16:54 03/13/24 16:50 03/13/24 16:50 03/13/24 16:50 03/13/24 16:40 03/13/24 16:40 Nasal Cannula 2 03/13/24 16:35 2 03/13/24 16:30 03/13/24 16:30 03/13/24 16:23 03/13/24 16:20 03/13/24 16:15 03/13/24 16:10 03/13/24 16:00 03/13/24 16:00 03/13/24 15:53 03/13/24 15:50 03/13/24 15:50 03/13/24 15:48 03/13/24 15:48 03/13/24 15:47 03/13/24 15:30 03/13/24 15:30 03/13/24 15:20 03/13/24 15:20 03/13/24 15:19 03/13/24 15:19 03/13/24 15:16 03/13/24 15:16 Room Air 03/13/24 14:56 Nasal Cannula 2 03/13/24 14:56 Room Air Laboratory Results Abnormal lab results 03/13/24 03/13/24 03/13/24 Range/Units 15:18 15:20 15:26 WBC 24.17 H (4.8-10.8) K/ul RBC 3.46 L (4.70-6.10) M/uL Hgb 8.5 L (14.0-18.0) g/dl POC Hgb 8.2 L (14.0-18.0) g/dl Hct 27.2 L (42.0-52.0) % POC Hct 24 L (42-52) % MCV 78.6 L (80.0-100.0) fL MCH 24.6 L (25.0-34.0) pg MCHC 31.3 L (32.0-36.0) g/dL RDW Std Deviation 47.4 H (36.4-46.3) fL RDW Coeff of Dione 16.7 H (11.5-14.5) % Neut # (Auto) 21.15 H (1.40-6.50) K/uL Lymph # (Auto) 1.18 L (1.20-3.40) K/uL Emery # (Auto) 1.43 H (0.11-0.59) K/uL Immature Gran # (Auto) 0.36 H (0.01-0.20) K/uL PT 12.6 H (9.0-12.0) Seconds INR 1.2 H (0.9-1.1) POC Potassium 5.9 H (3.3-5.0) mmol/L Potassium 5.8 H (3.5-5.1) mmol/L Chloride 110 H (98-107) mmol/L Carbon Dioxide 16 L (21-32) mmol/L POC Total CO2 16 L (24-31) mmol/L POC BUN 98 H (7-18) mg/dl BUN 95 H (6-23) mg/dl Creatinine 3.48 H (0.6-1.4) mg/dl POC Creatinine 4.1 H (0.6-1.3) mg/dl BUN/Creatinine Ratio 27.3 H (10-20) Glucose 319 H* (70-99(Fasting)) mg/dl POC Glucose (other) 299 H (70-99) mg/dl Lactate 4.0 H* (0.4-2.0) mmol/L Calcium 8.4 L (8.6-10.3) mg/dl AST 9 L (13-39) U/L Total Protein 5.4 L (6.0-8.3) gm/dl Albumin 2.8 L (3.4-5.0) gm/dl Urine Appearance (Clear) Urine Protein (Negative) Urine Glucose (UA) (Negative) Urine Blood (Negative) Ur Leukocyte Esterase (Negative) Urine WBC (Auto) (0-5) /hpf Urine RBC (Auto) (0-2) /hpf U Hyaline Cast (Auto) (0-2) /lpf Urine Bacteria (Auto) (None Seen) Urine Sperm (None Prsent) Crossmatch See Detail 03/13/24 Range/Units 16:50 WBC (4.8-10.8) K/ul RBC (4.70-6.10) M/uL Hgb (14.0-18.0) g/dl POC Hgb (14.0-18.0) g/dl Hct (42.0-52.0) % POC Hct (42-52) % MCV (80.0-100.0) fL MCH (25.0-34.0) pg MCHC (32.0-36.0) g/dL RDW Std Deviation (36.4-46.3) fL RDW Coeff of Dione (11.5-14.5) % Neut # (Auto) (1.40-6.50) K/uL Lymph # (Auto) (1.20-3.40) K/uL Emery # (Auto) (0.11-0.59) K/uL Immature Gran # (Auto) (0.01-0.20) K/uL PT (9.0-12.0) Seconds INR (0.9-1.1) POC Potassium (3.3-5.0) mmol/L Potassium (3.5-5.1) mmol/L Chloride (98-107) mmol/L Carbon Dioxide (21-32) mmol/L POC Total CO2 (24-31) mmol/L POC BUN (7-18) mg/dl BUN (6-23) mg/dl Creatinine (0.6-1.4) mg/dl POC Creatinine (0.6-1.3) mg/dl BUN/Creatinine Ratio (10-20) Glucose (70-99(Fasting)) mg/dl POC Glucose (other) (70-99) mg/dl Lactate (0.4-2.0) mmol/L Calcium (8.6-10.3) mg/dl AST (13-39) U/L Total Protein (6.0-8.3) gm/dl Albumin (3.4-5.0) gm/dl Urine Appearance Cloudy A (Clear) Urine Protein Trace H (Negative) Urine Glucose (UA) 3+ H (Negative) Urine Blood 1+ H (Negative) Ur Leukocyte Esterase 2+ H (Negative) Urine WBC (Auto) 11-20 H (0-5) /hpf Urine RBC (Auto) 3-5 H (0-2) /hpf U Hyaline Cast (Auto) 3-5 H (0-2) /lpf Urine Bacteria (Auto) 1+ H (None Seen) Urine Sperm Present A (None Prsent) Crossmatch Diagnostic Findings Chest X-Ray 03/13/24 15:16 XR chest 1V portable HISTORY: Hematemesis COMPARISON: Chest 09/15/2023. FINDINGS: There are low lung volumes. No pneumothorax. No pleural effusions. No focal lung consolidations to suggest a pneumonia. No evidence for pulmonary edema. The cardiac silhouette is borderline enlarged. There are calcifications within the aortic knob. No acute fractures. A few bibasilar densities favor subsegmental atelectasis or scarring. IMPRESSION: No acute process. ACT 112: Negative or not required by law. Electronically signed by: Servando Batres M.D. 03/13/2024 4:31 PM Abdomen/Pelvis CT 03/13/24 15:[address] WITHOUT CONTRAST CT DOSE: 845.31 mGy.cm HISTORY: Hematemesis TECHNIQUE: Multiaxial CT images of the abdomen and pelvis were performed without contrast. A dose lowering technique was utilized adhering to the principles of ALARA. COMPARISON STUDY: Abdomen and pelvis CT 10/09/2023. FINDINGS: The bilateral lower lobe wedge-shaped densities have improved. However, there is a residual 12 mm nodule within the right lower lobe with the prior consolidation. No pneumoperitoneum. No pneumatosis. No acute fractures identified. Moderate to severe distention of the stomach which is fluid-filled. This could represent a gastric outlet obstruction. However, no definite transition point as the proximal duodenum is also slightly distended and fluid- filled. The unenhanced liver, spleen, adrenal glands, and pancreas are unremarkable. Vascular calcifications noted within the renal sinuses. No definite renal or ureteral calculi. No hydronephrosis. The gallbladder is distended and thick-walled with surrounding pericholecystic edema/inflammatory change. This is high suspicious for an acute cholecystitis. Calcified plaque within the normal caliber abdominal aorta. No retroperitoneal or pelvic lymphadenopathy. Small fat-containing bilateral inguinal hernias. The bladder is decompressed by Giles catheter which appears in good position. Bladder wall thickening has improved. The colon is decompressed. Normal appendix. No bowel wall thickening. No evidence for a small bowel obstruction. IMPRESSION: 1. Moderate to severe distention of the stomach which is fluid-filled. This is concerning for gastric outlet obstruction. However, no clear transition point identified. 2. Distended and thick-walled gallbladder with pericholecystic inflammatory change/edema. This is highly suspicious for an acute cholecystitis. Surgical consultation recommended for further evaluation. 3. There is a 12 mm nodular density remaining at the area of consolidation within the right lower lobe seen on the prior study. [address] follow-up recommended to ensure stability/resolution. ACT 112: Negative or not required by law. Electronically signed by: Servando Batres M.D. 03/13/2024 5:08 PM Medications Administered Pantoprazole Sodium 40 mg/ (Dextrose) 100 mls @ 20 mls/hr IV Q5H YADIRA Stop: 04/12/24 16:14 Last Admin: 03/13/24 16:42 Dose: 8 mg/hr, 20 mls/hr Documented By: ABHIJEET Discontinued Medications Sodium Chloride (Nss) 1,000 mls @ 999 mls/hr IV .Q1H1M STA Stop: 03/13/24 16:16 Last Infusion: 03/13/24 16:41 Dose: Infused Documented By: Admin: 03/13/24 15:25 Dose: 999 mls/hr Documented By: ABHIJEET Prothrombin Complex Concent ( (Human) 2,000 units/ Syringe) 80 mls @ 10 mls/min IV TODAY@1545 [facility]; Protocol Stop: 03/13/24 17:00 Last Admin: 03/13/24 15:52 Dose: 10 mls/min Documented By: ABHIJEET Ceftriaxone Sodium (Rocephin) 1,000 mg in 50 mls @ 100 mls/hr IV NOW STA Stop: 03/13/24 16:06 Last Infusion: 03/13/24 16:41 Dose: Infused Documented By: Admin: 03/13/24 16:03 Dose: 100 mls/hr Documented By: ABHIJEET Pantoprazole Sodium 80 mg/ (Dextrose) 120 mls @ 480 mls/hr IV NOW ONE Stop: 03/13/24 16:02 Last Infusion: 03/13/24 16:41 Dose: Infused Documented By: Admin: 03/13/24 16:01 Dose: 480 mls/hr Documented By: ABHIJEET Octreotide Acetate 100 mcg/ (Syringe) 10 mls @ 3 mls/min IV NOW STA Stop: 03/13/24 15:57 Last Admin: 03/13/24 16:03 Dose: 3 mls/min Documented By: ABHIJEET Acetaminophen (Ofirmev) 1,000 mg in 100 mls @ 400 mls/hr IV NOW STA Stop: 03/13/24 17:14 Last Infusion: 03/13/24 17:23 Dose: Infused Documented By: Admin: 03/13/24 17:07 Dose: 400 mls/hr Documented By: ABHIJEET Ondansetron HCl (Ondansetron Inj 2 Mg/Ml 2 Ml Vial) 4 mg IV NOW STA Stop: 03/13/24 15:17 Last Admin: 03/13/24 15:24 Dose: 4 mg Documented By: ABHIJEET Pantoprazole Sodium (Pantoprazole Bolus/Drip) 1 each IV NOW STA Stop: 03/13/24 15:49 Last Admin: 03/13/24 16:43 Dose: 1 each Documented By: ABHIJEET ECG Additional Comments: Sinus tachycardia Possible Left atrial enlargement Inferior infarct (cited on or before 04-MAY-2021) ST & T wave abnormality, consider lateral ischemia Abnormal ECG When compared with ECG of 08-OCT-2023 13:26, Criteria for Anterior infarct are no longer Present Criteria for Anterolateral infarct are no longer Present Nonspecific T wave abnormality no longer evident in Anterior leads Coding Level of Care Code 46803 CRITICAL CARE 1ST 30-74M Diagnoses Acute blood loss anemia D62 Acute cholecystitis K81.0 Acute upper GI bleed K92.2 BPH loc w urin obs/LUTS N40.1 Acute systolic CHF (congestive heart failure) I50.21
[2024-03-13] MEDS ORDERED: ACETAMINOPHEN 325 MG TAB PO PRN (19:54)
[2024-03-13] MEDS: metroNIDAZOLE 500 MG/100 ML BAG IV SCH (20:20)
[2024-03-13] MEDS: LIDOCAINE 2% JELLY 5 ML TUBE EXT ONE (20:21)
[2024-03-13] MEDS ORDERED: GLUCOSE 10 TAB/TUBE PO PRN (20:58)
[2024-03-13] MEDS ORDERED: GLUCAGON FOR INJ 1 MG VIAL SQ PRN (20:58)
[2024-03-13] MEDS ORDERED: DEXTROSE 50% 50 ML SYRINGE IV PRN (20:58)
[2024-03-13] MEDS ORDERED: GLUCOSE 40% GEL 15 GM TUBE PO PRN (20:58)
[2024-03-13] MEDS ORDERED: CARBOHYDRATES FOR HYPOGLYCEMIA PO PRN (20:58)
[2024-03-13] MEDS: ICU Protocol for HYPERglycemia SCH (21:16)
[2024-03-13] MEDS: ACETAMINOPHEN 1,000 MG/100 ML VIAL IV PRN (21:16)
[2024-03-13 21:39] LABS: Prothrombin Time 11.4 Seconds (9.0-12.0)
[2024-03-13] MEDS: METOPROLOL TARTRATE 1 MG/ML VIAL IV STA (21:39)
[2024-03-13] MEDS: INSULIN ASPART PER UNIT CHARGE SC STA (21:45)
[2024-03-13] MEDS: PLASMA-LYTE A 1,000 ML IV SCH (21:46)
[2024-03-13 21:54] LABS: Magnesium 2.2 mg/dl (1.7-2.4); Phosphorus 2.5 mg/dl (2.5-4.9); Potassium 5.3 mmol/L (3.5-5.1)
[2024-03-13] MEDS ORDERED: METOPROLOL TARTRATE 1 MG/ML VIAL IV SCH (22:30)
[2024-03-13] MEDS: HYDROmorphone INJ 0.5 MG/0.5 ML SYR IV PRN (22:55)
[2024-03-13 23:34] LABS: Hematocrit (blood only) 34.5 % (42.0-52.0); Hemoglobin 11.4 g/dl (14.0-18.0); Mean Corpuscular Hemoglobin 25.9 pg (25.0-34.0); Mean Corpuscular Volume 78.2 fL (80.0-100.0); Mean Platelet Volume 10.1 fL (9.4-12.4); Platelet Count 259 K/uL (130-400); RDW Coefficient of Variation 17.1 % (11.5-14.5); RDW Standard Deviation 47.4 fL (36.4-46.3); Red Blood Count 4.41 M/uL (4.70-6.10); White Blood Count 22.47 K/ul (4.8-10.8)
[2024-03-14 00:08] LABS: Basophils # (auto) 0.06 K/uL (0.00-0.20); Basophils % (auto) 0.3 %; Eosinophils # (auto) 0.03 K/uL (0.00-0.50); Eosinophils % (auto) 0.1 %; Immature Granulocytes # (auto) 0.21 K/uL (0.01-0.20); Immature Granulocytes % (auto) 0.9 %; Lymphocytes # (auto) 1.07 K/uL (1.20-3.40); Lymphocytes % (auto) 4.8 %; Monocytes # (auto) 1.04 K/uL (0.11-0.59); Monocytes % (auto) 4.6 %; Neutrophils # (auto) 20.06 K/uL (1.40-6.50); Neutrophils % (auto) 89.3 %
[2024-03-14] MEDS ORDERED: PANTOPRAZOLE BOLUS/DRIP IV STA (00:49)
[2024-03-14] MEDS ORDERED: STAT IV/IM STA (00:49)
[2024-03-14] MEDS: PANTOprazole 40 MG in DEXTROSE 5% MINI-B 100 ML IV SCH (01:02)
[2024-03-14] MEDS: OCTREOTIDE ACETATE 500 MCG in 0.9 % SODIUM CHLORIDE 100 ML IV SCH (01:02)
[2024-03-14] MEDS: INSULIN ASPART PER UNIT CHARGE SC SCH ×2 (02:30→16:37)
[2024-03-14 03:41] LABS: Hematocrit (blood only) 35.5 % (42.0-52.0); Hemoglobin 11.4 g/dl (14.0-18.0); Mean Corpuscular Hemoglobin 25.3 pg (25.0-34.0); Mean Corpuscular Hgb Conc 32.1 g/dL (32.0-36.0); Mean Corpuscular Volume 78.9 fL (80.0-100.0); Mean Platelet Volume 10.4 fL (9.4-12.4); Platelet Count 222 K/uL (130-400); RDW Coefficient of Variation 17.2 % (11.5-14.5); RDW Standard Deviation 47.8 fL (36.4-46.3); White Blood Count 25.74 K/ul (4.8-10.8)
[2024-03-14 04:31] LABS: Albumin Globulin Ratio 1.1 (0.9-2); Albumin Level 3.2 gm/dl (3.4-5.0); BUN Creatinine Ratio 29.2 (10-20); Bilirubin,Total 0.7 mg/dl (0.2-1.0); Creatinine Clr Calc Pharmacy 31.7 ml/min; Est GFR (African American) 31.7 ml/min; Est GFR (Non-African American) 27.3 ml/min; Globulin 2.9 gm/dl (2.5-4.0); Magnesium 2.2 mg/dl (1.7-2.4); Potassium 5.2 mmol/L (3.5-5.1); Total Protein 6.1 gm/dl (6.0-8.3)
[2024-03-14] MEDS: ATORVASTATIN 20 MG TAB PO SCH (08:01)
--- NOTE | 2024-03-14 08:09 | Critical Care Progress Note ---
Date of Service March 14, 2024 Assessment & Plan (1) Acute blood loss anemia: (2) Acute cholecystitis: (3) Acute upper GI bleed: (4) BPH loc w urin obs/LUTS: (5) Acute systolic CHF (congestive heart failure): Plan Care discussed with daytime nurse, overnight JUVE and signing out critical care physician Reason Critically Ill: 53 YOM admitted to ICU following hematemesis at home and x1 in EMD. ICU for hemodynamic monitoring, further resuscitation if required and following of symptoms and hgb counts Neuro - HX MCA CVA CAM ICU: Negative - No acute needs at this time - Will be holding his Eliquis as well as his plavix until hemostasis is ensured and no further evidence of bleeding Cardiac - Acute blood loss anemia with organ dysfunction, Hx CAD, HF, on chronic anticoagulation - Patient with hematemesis and hypovolemia- hemodynamics have remained stable from a MAP standpoint - ECG with nonspecific ST changes - currently no chest pain and ECG is without STEMI- hx of CAD- 3v- last evaluated via cath 09/2023 - Hold BB, hold diuretics, hold KATELYN at this time until hemodynamics proven stable- tachycardia secondary to acute blood loss - improved - ECG as needed Respiratory - Hx PE - currently no acute needs - hold anticoagulation as above GI - Acute choley, Acute GI bleed upper, cirrhosis-hepatic steatosis, - Appreciate surgical evaluation- continue with abx- if worsening - recs transfer for perc drain - follow clinically - LFTs unremarkable this morning. - GI Bleed with hematemesis- no known history of variceal, however clinically equivocal cirrhosis from fatty liver disease noted - GI consulted plan for endoscopic evaluation in am - Hold on further resuscitation at this time to avoid over resuscitation - follow HGB and MAPS - Continue Protonix infusion as well as Octreotide -INR unremarkable today. Status post PCC transfusion. - maintain normal calcium levels -Lactate normalized. - NPO RENAL/LYTES - BRUNA, BPH with chronic Giles catheter, metabolic acidosis, hyperkalemia - continue supportive efforts- trend Renal function - likely pre-renal at this time - ICU electrolyte protocol -Lactate normalized and creatinine improving. - doubt dka at this time as Non gap and BG at 319- follow - follow BMP - if needed will ad isotonic bicarb infusion - BPH with LUTS - has been followed for TURP however has not been completed and remains with chronic indwelling Giles - change giles catheter on arrival patient reports has been in x 3 weeks ENDO - DMII - BG elevated on arrival - ICU hyperglycemia protocol HEME - Acute blood loss anemia, chronic use of anticoagulation (eliquis) -Hemoglobin stable status post blood transfusions. - Last dose of Eliquis 03/13/24 in am ~ 0900- PCC received at 1530 03/13/2024 ID - Cholecystitis, cirrhosis, sepsis - small amount of ascites noted - Meets SIRS criteria and source- sepsis can't be excluded- however hemodynamics likely secondary to acute blood loss - Continue broad spectrum antibiotics -Urine cultures growing gram-negative rods. LINES/IV ACCESS - PIV x3, Giles Maintain 2 large bore IVs- 18g or better Continue use of these lines DVT PROPHYLAXIS - SCDS, chemoprophylaxis contraindicated at this time until hemostasis is ensured DISPO: Likely stable to downgrade after EGD if no further bleeding and per GI recommendations Admission and Anticipated Discharge Date Admission Date: March 13, 2024 Subjective Patient seen and examined. No significant issues overnight. Vital signs remained stable. Hemodynamically stable without vasopressor requirements. Oxygen needs minimal. Review of Systems Review of Systems: All systems reviewed & are unremarkable except as noted in HPI & below Physical Exam Physical Exam: PHYSICAL EXAM: General: awake, alert, no apparent distress Head: Normocephalic, atraumatic ENT: PERRL, EOMI, no pharyngeal exudate, mucous membranes dry Neuro: AAO x 3, speech clear and appropriate, strength intact bilaterally 5/5 right, 4/5 left residual noted from previous MCA CVA, sensation intact and equal all extremities and dermatomes, no pronator drift Chest: equal rise and fall of the chest, no accessory muscle use, no heaves or thrills, Clear to auscultation, on room air, Cardiac: Regular rate and rhythm, telemetry reviewed- NSR, skin warm dry, cap refill <3 seconds, peripheral pulses +2 no JVD, no murmur, no edema, warm and dry GI: NABS x 4 quadrants, soft, nontender to palpation, no rebound, guarding or tenderness : chronic indwelling giles catheter Psych: Normal mood and affect Skin: no rash or erythema Results & Data Results & Data Vital Signs (Past 12 Hours) Vital Signs Temp Pulse Resp BP Pulse Ox O2 Del Method O2 Flow Rate 03/14/24 07:00 108/65 0429/24 07:00 98 H 18 03/14/24 06:00 98 H 17 107/67 03/14/24 05:00 100 H 21 135/73 03/14/24 04:54 103 H 22 133/72 95 03/14/24 04:05 37.2 C 03/14/24 04:00 100 H 18 98 03/14/24 03:00 100 H 24 98 03/14/24 03:00 95/61 L 03/14/24 02:00 107 H 19 95 03/14/24 02:00 122/72 03/14/24 01:00 109/62 03/14/24 01:00 106 H 17 95 03/14/24 00:00 111/73 03/14/24 00:00 112 H 17 97 03/14/24 00:00 37.0 C 03/14/24 00:00 112 H 03/13/24 23:00 130/79 03/13/24 23:00 107 H 23 98 03/13/24 22:43 107 H 18 97 03/13/24 22:43 131/76 03/13/24 22:00 110 H 21 98 03/13/24 21:30 101/76 03/13/24 21:30 113 H 16 99 03/13/24 21:01 119 H 35 H 03/13/24 21:01 93/68 L 03/13/24 21:00 113 H 22 03/13/24 20:32 112 H 03/13/24 20:30 109 H 28 H 03/13/24 20:28 Nasal Cannula 2 03/13/24 20:15 61 29 H 96 Coding Level of Care Code 98890 SUB INP/OBS CARE 2MIN Diagnoses Acute blood loss anemia D62 Acute cholecystitis K81.0 Acute upper GI bleed K92.2 BPH loc w urin obs/LUTS N40.1 Acute systolic CHF (congestive heart failure) I50.21
--- NOTE | 2024-03-14 08:42 | Surgery Progress Note ---
Date of Service March 14, 2024 Assessment & Plan (1) Acute upper GI bleed: (2) Acute cholecystitis: Plan 53-year-old gentleman presents with massive upper GI bleed as well as what appears to be acute cholecystitis on CT scan. He has a very significant cardiac history, is on Eliquis and Plavix, has drug-eluting stents, and has a cardiac ejection fraction of 20%. He is a very high surgical risk. His main problem is the upper GI bleed. GI has been consulted. He needs urgent to emergent endoscopy for further evaluation and possible treatment of the upper GI bleed. As for the acute cholecystitis, I would recommend IV antibiotic therapy. He is a very high surgical risk and I would not recommend any surgical management at this time. If the and IV antibiotics are not improving his condition, I would recommend percutaneous cholecystostomy tube. He will need ongoing resuscitation and will be admitted to the intensive care unit. We will follow along. 03/14/2024 - resting comfortably in bed. Scheduled for EGD this morning. Continue IV antibiotics. No plan for surgical management of the acute cholecystitis. He may require percutaneous cholecystostomy tube if he fails to improve. Will continue to follow. Admission and Anticipated Discharge Date Admission Date: March 13, 2024 Subjective Resting comfortably in bed. No fevers. States he has less pain. No further episodes of emesis Physical Exam Physical Exam: NAD, A&O x 3 NCAT AFVSS Abdomen: Soft, mild TTP in RUQ Results & Data Vital Signs (Past 12 Hours) Vital Signs Temp Pulse Resp BP Pulse Ox 03/14/24 07:00 108/65 03/14/24 07:00 98 H 18 03/14/24 06:00 98 H 17 107/67 03/14/24 05:00 100 H 21 135/73 03/14/24 04:54 103 H 22 133/72 95 03/14/24 04:05 37.2 C 03/14/24 04:00 100 H 18 98 03/14/24 03:00 100 H 24 98 03/14/24 03:00 95/61 L 03/14/24 02:00 107 H 19 95 03/14/24 02:00 122/72 03/14/24 01:00 109/62 03/14/24 01:00 106 H 17 95 04/29/24 00:00 111/73 03/14/24 00:00 112 H 17 97 03/14/24 00:00 37.0 C 03/14/24 00:00 112 H 03/13/24 23:00 130/79 03/13/24 23:00 107 H 23 98 03/13/24 22:43 107 H 18 97 03/13/24 22:43 131/76 03/13/24 22:00 110 H 21 98 03/13/24 21:30 101/76 03/13/24 21:30 113 H 16 99 03/13/24 21:01 119 H 35 H 03/13/24 21:01 93/68 L 03/13/24 21:00 113 H 22
--- NOTE | 2024-03-14 08:57 | Electrocardiogram Report ---
Test Reason : Blood Pressure : / mmHG Vent. Rate : 103 BPM Atrial Rate : 103 BPM P-R Int : 190 ms QRS Dur : 100 ms QT Int : 348 ms P-R-T Axes : 060 002 106 degrees QTc Int : 455 ms Sinus tachycardia Possible Left atrial enlargement Inferior infarct (cited on or before 04-MAY-2021) Abnormal ECG When compared with ECG of 08-OCT-2023 13:26, Criteria for Anterolateral infarct are no longer Present QRS voltage has decreased Confirmed by Irving Edward ([id number]) on 03/14/2024 8:57:46 AM Referred By: Confirmed By:Irving Edward
--- NOTE | 2024-03-14 08:59 | Gastrointestinal Consultation ---
Date of Consultation March 14, 2024 Assessment & Plan (1) Acute blood loss anemia: (2) Acute cholecystitis: (3) Acute upper GI bleed: (4) Abnormal CT of the abdomen: Plan Patient is a 53 y.o. male admitted with epigastric pain and hematemesis with CT imaging suggestive of acute cholecystitis as well as possible gastric outlet obstruction in the setting of chronic anticoagulation. 1. NPO for now. 2. Continue PPI and Octreotide ggts. 3. IV abx and reccs per surgical team. 4. EGD with Dr. Anderson today for further evaluation. IV Reglan 10 mg x 1 dose now. 5. Further recommendations pending results of testing. Thank you for allowing us to participate in the care of this patient. If you have any questions or concerns, please do not hesitate to contact us. Supervising Physician Co-Signing Physician Notes Agree with CRISTINA Caro as above Interviewed and examined patient and agree with above Abd: Soft, NT, ND, +BS Continue current therapy and supportive care Proceed with EGD now History of Present Illness Reason for Consultation: UGIB Requesting Physician: Dr. Cruz and Georgia Gibbs PA-C Attending Physician: Daniel Ceballos MD History of Present Illness Patient is a 53 y.o. male with a history of BPH, BRUNA, CHF, CAD s/p stent placement ~2013, HTN, DM, and HLD admitted with epigastric pain as well as vomiting and hematemesis prior to arrival to the hospital yesterday. He remains on Eliquis and Plavix at home due to drug eluding stent. Denies any prior episodes of hematemesis. No further hematemesis since admission. States for the past year, however, he has been having a very poor appetite and has been gradually losing weight. He is uncertain of the extent of the weight reduction, however. From review of records, however, he has appeared to have sustained an approximate 14 kg weight loss since August of 2023. Interestingly, he was admitted to [facility] in September of 2023. He did have a CT with a suspected gastric abnormality as follows: "1. Although evaluation is limited by noncontrast technique, there is a loss of fat plane between the pancreas and stomach with an ill-defined fat and soft tissue density in the region. Findings may represent perforated gastric ulcer, less likely pancreatitis. There is new from 09/08/2023." Repeat CT with oral contrast enhancement demonstrated: "1. Contained gastric perforation as described above. The defect within the lesser curvature of the stomach measures 9 mm and accounts for a 5 x 2 cm perigastric collection. This could be due to an underlying gastric ulcer or possibly gastric mass. Urgent surgical consultation recommended." Patient was subsequently transferred to [facility] in [place], [place]. 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 CT imaging this admission demonstrated: "IMPRESSION: 1. Moderate to severe distention of the stomach which is fluid-filled. This is concerning for gastric outlet obstruction. However, no clear transition point identified. 2. Distended and thick-walled gallbladder with pericholecystic inflammatory change/edema. This is highly suspicious for an acute cholecystitis. Surgical consultation recommended for further evaluation. 3. There is a 12 mm nodular density remaining at the area of consolidation with in the right lower lobe seen on the prior study. [address] follow-up recommended to ensure stability/resolution." Currently, the patient is resting comfortably. Has been started on IV abx by s urgical team for concern of acute cholecystitis. The patient also remains on PPI and Octreotide ggts. Patient is slightly tachycardic. No hypotension. Hemoglobin is stable at 11.4. WBC 25.74. Potassium 5.2. Creatinine is trending downward from 3.48 yesterday to 2.57 this morning. Allergies Allergy/AdvReac Type Severity Reaction Status Date / Time No Known Allergies Allergy Verified 03/14/24 11:53 Home Medications Medication Instructions Recorded Confirmed Type clopidogrel 75 mg tablet (Plavix) 75 mg PO QAM 06/05/21 03/13/24 History atorvastatin 20 mg tablet 20 mg PO QAM 09/08/23 03/13/24 History omeprazole 40 mg capsule,delayed 40 mg PO DAILYBB 09/08/23 03/13/24 History release lisinopril 10 mg tablet 10 mg PO BID #30 tabs 09/23/23 03/13/24 Rx spironolactone 25 mg tablet 25 mg PO QAM #30 tabs 09/23/23 03/13/24 Rx apixaban 5 mg tablet (Eliquis) 5 mg PO Q12H 10/08/23 03/13/24 History tamsulosin 0.4 mg capsule 0.4 mg PO HS #30 caps 10/09/23 03/13/24 Rx metoprolol succinate 50 mg 25 mg (1/2 x 50 mg) PO BID #30 tabs 10/12/23 03/13/24 Rx tablet,extended release 24 hr ropinirole 0.25 mg tablet 0.25 mg PO HS #30 tabs 10/12/23 03/13/24 Rx flash glucose sensor (FreeStyle #1 ea 01/01/24 03/08/24 History Yulissa 2 Sensor kit) lorazepam 0.5 mg tablet 0.5 mg PO Q6H PRN Anxiety 01/01/24 03/13/24 History metformin 500 mg tablet,extended 1,000 mg PO QAM 01/01/24 03/13/24 History release 24 hr sertraline 25 mg tablet 25 mg PO QAM 01/01/24 03/13/24 History furosemide 20 mg tablet 10 mg PO QAM 01/11/24 03/13/24 History mirtazapine 30 mg tablet 30 mg PO HS 01/11/24 03/13/24 History empagliflozin 10 mg tablet 10 mg PO QAM 01/19/24 03/13/24 History (Jardiance) oxybutynin chloride 10 mg 10 mg PO DAILY #30 tabs 03/08/24 03/13/24 Rx tablet,extended release 24 hr Patient History Medical History Rushing catheter in place Enlarged prostate Hx pulmonary embolism 09/08/23- bilateral PEs History of suicidal ideation (~2020) voluntary admission [facility] Hx of congestive heart failure (~10/2023) [facility] Hx of pancreatitis LV (left ventricular) mural thrombus Noted on 09/17/23 ECHO- currently on Eliquis CKD (chronic kidney disease), stage III Ischemic cardiomyopathy EF=20-25% 09/2023 Dyslipidemia Depression CAD (coronary artery disease) (~2013) 2013 - NSTEMI s/p BRUCE to RCA Cardiac cath 09/22/23 ([facility])- no stents or bypass (did show three vessel CAD) DM type 2 (diabetes mellitus, type 2) Hgb A1C 12.4 Only on Metformin as of 01/19/24 History of cerebrovascular accident (~2019) x5 "multiple mini strokes" [facility], no current neurologist, left arm "almost useless" and left side "doesn't work quite right" Most recent CVA 2020 per records Carotid stenosis, bilateral s/ right CEA (2019) Hypertension Surgical History Hx of cardiac catheterization (~09/2023) [facility], no stents Hx of endarterectomy (06/28/20) Right Carotid Endarterectomy with Bovine Patch Angioplasty Dr. Arita 06/28/2020 S/P drug eluting coronary stent placement (~2013) [facility], currently follows at [facility] Family History Mother , age 68 from metastatic lung cancer Lung cancer Father No problems noted. 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[employer], [place], 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 Feels Safe at Home: Yes Assistive Devices: Walker Review of Systems Constitutional: as per Subjective / HPI Respiratory: no cough and no dyspnea Cardiovascular: no chest pain and no palpitations Gastrointestinal: as per Subjective / HPI Psychiatric: as per Subjective / HPI Physical Exam Constitutional: WD/WN, vitals as above Eyes: EOM intact bilaterally Neck: normal visual inspection Respiratory: normal respiratory effort, lungs clear to auscultation Cardiovascular: Rate/Rhythm: regular rate and regular rhythm Gastrointestinal (Abdomen): normal bowel sounds, soft, nontender, no hepatosplenomegaly Musculoskeletal: Extremities: extremities normal to inspection Psychiatric: A+Ox3, euthymic affect Results & Data Vital Signs (Past 12 Hours) Vital Signs Temp Pulse Resp BP Pulse Ox 03/14/24 07:00 108/65 03/14/24 07:00 98 H 18 03/14/24 06:00 98 H 17 107/67 03/14/24 05:00 100 H 21 135/73 03/14/24 04:54 103 H 22 133/72 95 03/14/24 04:05 37.2 C 03/14/24 04:00 100 H 18 98 03/14/24 03:00 100 H 24 98 03/14/24 03:00 95/61 L 03/14/24 02:00 107 H 19 95 03/14/24 02:00 122/72 03/14/24 01:00 109/62 03/14/24 01:00 106 H 17 95 03/14/24 00:00 111/73 03/14/24 00:00 112 H 17 97 03/14/24 00:00 37.0 C 03/14/24 00:00 112 H 03/13/24 23:00 130/79 03/13/24 23:00 107 H 23 98 03/13/24 22:43 107 H 18 97 03/13/24 22:43 131/76 03/13/24 22:00 110 H 21 98 03/13/24 21:30 101/76 03/13/24 21:30 113 H 16 99 03/13/24 21:01 119 H 35 H 03/13/24 21:01 93/68 L 03/13/24 21:00 113 H 22 PG Care Time/CCT Total # of Minutes Spent Total Time Spent with Patient: Total time spent is greater than 50% in coordination of care (as documented) at patient's floor/unit and/or counseling patient: Coding Level of Care Code 56965 INT INP/OBS CARE 3/75MIN Diagnoses Acute blood loss anemia D62 Acute cholecystitis K81.0 Acute upper GI bleed K92.[address] of the abdomen R93.5
--- NOTE | 2024-03-14 09:15 | Anesthesiology Consultation ---
Date of Service March 14, 2024 Assessment & Plan Chart Review Chart Review: Acceptable Risk for Surgery Pt aware that should blood be found in stomach, will abort procedure and move to [facility] in OR. Dr Anderson aware and agreeable. Consults Requested none ASA ASA4 Proposed Anesthesia Anesthesia Type: MAC Risk / Benefits Reviewed With: PT / POA / Parent / Guardian, Accepts Plan and Informed Consent Obtained History Surgery Operation Date: 03/14/24 16:30 Proposed Procedures p Esophagogastroduodenoscopy Dr Anderson - Luke Anderson, DO Height/Weight Height: 5 ft 8 in Weight: 67.4 kg Allergies Allergy/AdvReac Type Severity Reaction Status Date / Time No Known Allergies Allergy Verified 03/13/24 15:19 Medications Home Medications Medication Instructions Recorded Confirmed Last Taken clopidogrel 75 mg tablet (Plavix) 75 mg PO QAM 06/05/21 03/13/24 03/13/24 atorvastatin 20 mg tablet 20 mg PO QAM 09/08/23 03/13/24 03/13/24 omeprazole 40 mg capsule,delayed 40 mg PO DAILYBB 09/08/23 03/13/24 03/13/24 release lisinopril 10 mg tablet 10 mg PO BID #30 tabs 09/23/23 03/13/24 03/13/24 08:00 spironolactone 25 mg tablet 25 mg PO QAM #30 tabs 09/23/23 03/13/24 03/13/24 apixaban 5 mg tablet (Eliquis) 5 mg PO Q12H 10/08/23 03/13/24 03/13/24 08:00 tamsulosin 0.4 mg capsule 0.4 mg PO HS #30 caps 10/09/23 03/13/24 03/12/24 metoprolol succinate 50 mg 25 mg (1/2 x 50 mg) PO BID #30 tabs 10/12/23 03/13/24 03/13/24 08:00 tablet,extended release 24 hr ropinirole 0.25 mg tablet 0.25 mg PO HS #30 tabs 10/12/23 03/13/24 03/12/24 flash glucose sensor (FreeStyle #1 ea 01/01/24 03/08/24 Unknown Yulissa 2 Sensor kit) lorazepam 0.5 mg tablet 0.5 mg PO Q6H PRN Anxiety 01/01/24 03/13/24 Unknown metformin 500 mg tablet,extended 1,000 mg PO QAM 01/01/24 03/13/24 03/13/24 release 24 hr sertraline 25 mg tablet 25 mg PO QAM 01/01/24 03/13/24 03/13/24 furosemide 20 mg tablet 10 mg PO QAM 01/11/24 03/13/24 03/13/24 mirtazapine 30 mg tablet 30 mg PO HS 01/11/24 03/13/24 03/12/24 empagliflozin 10 mg tablet 10 mg PO QAM 01/19/24 03/13/24 03/13/24 (Jardiance) oxybutynin chloride 10 mg 10 mg PO DAILY #30 tabs 03/08/24 03/13/24 03/13/24 tablet,extended release 24 hr Active Medications Generic Name Dose Route Start Last Admin Trade Name Freq PRN Reason Stop Dose Admin Atorvastatin Calcium 20 mg 03/14/24 09:00 03/14/24 08:01 Atorvastatin 20 Mg Tab PO 04/13/24 08:59 Not Given QAM YADIRA Hydromorphone HCl 0.25 mg 03/13/24 21:57 03/14/24 04:59 Hydromorphone Inj 0.5 Mg/0.5 Ml Syr IV 03/27/24 21:56 0.25 mg Q6H PRN Administration Severe Pain (Scale 7, 8, 9,10) Metronidazole 500 mg in 100 mls @ 100 mls/hr 03/13/24 18:15 03/14/24 09:45 Flagyl IV 03/23/24 18:14 100 mls/hr Q8H YADIRA Administration Protocol Acetaminophen 1,000 mg in 100 mls @ 400 mls/hr 03/13/24 20:52 03/14/24 10:14 Ofirmev IV 03/16/24 20:51 Infused Q8H PRN Infusion pain or fever Parenteral Electrolytes 1,000 mls @ 90 mls/hr 03/13/24 21:45 03/14/24 09:45 Plasma-Lyte A Ph 7.4 IV 04/12/24 21:44 90 mls/hr .Q11H7M YADIRA Administration Octreotide Acetate 500 mcg/ 100.5 mls @ 10.05 mls/hr 03/14/24 01:00 03/14/24 09:44 Sodium Chloride IV 04/13/24 00:59 50 mcg/hr .Q10H YADIRA 10.1 mls/hr Administration 50 MCG/HR Pantoprazole Sodium 40 mg/ 100 mls @ 20 mls/hr 03/14/24 01:00 03/14/24 06:34 Dextrose IV 04/13/24 00:59 8 mg/hr Q5H YADIRA 20 mls/hr Administration 8 MG/HR Insulin Aspart 0 units 03/14/24 00:00 03/14/24 06:34 Insulin Aspart Per Unit Charge SC 04/13/24 00:00 3 units Q6 YADIRA Administration NPO Date Last Intake of Fluids: 03/13/24 Time Last Intake of Fluids: 23:59 Date Last Intake of Solids: 03/13/24 Time Last Intake of Solids: 23:59 Past Medical History Medical History Rushing catheter in place Enlarged prostate Hx pulmonary embolism 09/08/23- bilateral PEs History of suicidal ideation (~2020) voluntary admission [facility] Hx of congestive heart failure (~10/2023) [facility] Hx of pancreatitis LV (left ventricular) mural thrombus Noted on 09/17/23 ECHO- currently on Eliquis CKD (chronic kidney disease), stage III Ischemic cardiomyopathy EF=20-25% 09/2023 Dyslipidemia Depression CAD (coronary artery disease) (~2013) 2014 - NSTEMI s/p BRUCE to RCA Cardiac cath 09/22/23 ([facility])- no stents or bypass (did show three vessel CAD) DM type 2 (diabetes mellitus, type 2) Hgb A1C 12.4 Only on Metformin as of 01/19/24 History of cerebrovascular accident (~2019) x5 "multiple mini strokes" [facility], no current neurologist, left arm "almost useless" and left side "doesn't work quite right" Most recent CVA 2020 per records Carotid stenosis, bilateral s/ right CEA (2019) Hypertension Exercise / Class Metabolic Activity III < 4 Walking/Shop/Light housework Past Family History Family History Mother , age 68 from metastatic lung cancer Lung cancer Father No problems noted. Past Surgical History Surgical History Hx of cardiac catheterization (~09/2023) [facility], no stents Hx of endarterectomy (06/28/20) Right Carotid Endarterectomy with Bovine Patch Angioplasty Dr. Arita 06/28/2020 S/P drug eluting coronary stent placement (~2013) [facility], currently follows at [facility] Past Anesthesia History No Hx of Anesthesia Complications and No Family Hx of Anesthesia Complications History of PONV No Hx of PONV and No Hx of Motion Sickness Social History Smoking Status: Current every day smoker tobacco type: cigarettes Smoking cigarettes per day: <1 PPD, advised Do You Dip or Chew Tobacco: No Hx Alcohol Use: No Alcohol type: beer alcohol intake frequency: a few times a week Hx Substance Use: No substance use type: does not use Last Used Substance: Unknown Last Used Substance Other:: denies use Physical Exam Vital Signs Last Vital Signs Temp 37.2 C 03/14/24 04:05 Pulse 94 H 03/14/24 10:00 Resp 27 H 03/14/24 10:00 BP 112/74 03/14/24 10:00 Pulse Ox 100 03/14/24 10:00 O2 Del Method Nasal Cannula 03/13/24 20:28 O2 Flow Rate 2 03/13/24 20:28 ENMT Mouth: no TMJ abnormality Thyromental Distance: > or= 3.5 Finger Breadths Mallampati Class: II No blood staining. pt states no hematemesis since shortly after arrival yesterday to [facility]. Minimal abdominal pain. Mouth clear Neck normal visual inspection, trachea midline and + facial hair; neck extension not limited Respiratory normal respiratory effort; no respiratory distress and does not use accessory muscles Auscultation: lungs clear to auscultation bilaterally Cardiovascular Rate/Rhythm: regular rate and regular rhythm Heart Sounds: no murmur Musculoskeletal Spine: normal cervical ROM Extremities: + limited ROM of extremities (left hemiplegia secondary to prior cva) Neurologic + does not move all extremities (difficulty moving LUE and LLE secondary to hemiplegia) Psychiatric Orientation: alert and oriented x 3 Testing Laboratory Results 03/14/24 03:21 03/14/24 03:21 PT 11.4 Seconds (9.0-12.0) 03/13/24 20:58 INR 1.0 (0.9-1.1) 03/13/24 20:58 Urine Color Yellow 03/13/24 16:50 Urine Appearance Cloudy (Clear) A 03/13/24 16:50 Urine pH 5.5 (4.5-7.5) 03/13/24 16:50 Ur Specific [place] 1.013 (1.000-1.030) 03/13/24 16:50 Urine Protein Trace (Negative) H 03/13/24 16:50 Urine Glucose (UA) 3+ (Negative) H 03/13/24 16:50 Urine Ketones Negative (Negative) 03/13/24 16:50 Urine Nitrite Negative (Negative) 03/13/24 16:50 Ur Leukocyte Esterase 2+ (Negative) H 03/13/24 16:50 Urine WBC (Auto) 11-20 /hpf (0-5) H 03/13/24 16:50 Urine RBC (Auto) 3-5 /hpf (0-2) H 03/13/24 16:50 U Hyaline Cast (Auto) 3-5 /lpf (0-2) H 03/13/24 16:50 U Epithel Cells (Auto) 0-2 /hpf (0-2) 03/13/24 16:50 Urine Bacteria (Auto) 1+ (None Seen) H 03/13/24 16:50 Blood Type O Positive 03/13/24 15:18 Antibody Screen NEGATIVE 03/13/24 15:18 03/13/24 16:50 Urine Culture - Preliminary Urine,Clean Catch Gram negative bacilli 03/14/24 03/14/24 06:31 02:01 POC Glucose 216 H 139 H Electrocardiogram Date: 03/13/24 Findings: + ST @ (103 with LAD inferior infarct prior to 05/04/21) Chest X-Ray Date: 03/13/24 There are low lung volumes. No pneumothorax. No pleural effusions. No focal lung consolidations to suggest a pneumonia. No evidence for pulmonary edema. The cardiac silhouette is borderline enlarged. There are calcifications within the aortic knob. No acute fractures. A few bibasilar densities favor subsegmental atelectasis or scarring. Echocardiogram Date: 09/17/23 EF: 20-25% LV Function: dysfunctional (severe global hypokinesis LV with apical thrombus) Other Findings: + atrial enlargement (mild LAD) Valvular Disease: + AI (mild) and + MR (mild) Cardiac Catheterization Date: 09/22/23 Three-vessel coronary artery disease with markedly elevated left end-diastolic pressure. Diffuse coronary atherosclerosis but degree of coronary disease disproportionate to degree of systolic dysfunction
[2024-03-14] MEDS: METOCLOPRAMIDE HCL INJ 5 MG/ML 2 ML VIAL IV STA (11:29)
--- NOTE | 2024-03-14 12:49 | GI REPORT ---
Patient Name: Deyvi Bansal Procedure Date: 03/14/2024 12:10 PM Date of : 1970 Admit Type: Inpatient Age: 53 Gender: Male Attending MD: Luke Anderson DO, Procedure: Upper GI endoscopy Providers: Luke Anderson DO Referring MD: Aissatou Jansen MD Indications: Hematemesis Medicines: Monitored Anesthesia Care Complications: No immediate complications. Estimated Blood Loss: Estimated blood loss: none. Procedure: Pre-Anesthesia Assessment: - Prior to the procedure, a History and Physical was performed, and patient medications and allergies were reviewed. The patient's tolerance of previous anesthesia was also reviewed. The risks and benefits of the procedure and the sedation options and risks were discussed with the patient. All questions were answered, and informed consent was obtained. Prior Anticoagulants: The patient last took Eliquis (apixaban) 1 day and Plavix (clopidogrel) 1 day prior to the procedure. ASA Grade Assessment: IV - A patient with severe systemic disease that is a constant threat to life. After reviewing the risks and benefits, the patient was deemed in satisfactory condition to undergo the procedure. After obtaining informed consent, the endoscope was passed under direct vision. Throughout the procedure, the patient's blood pressure, pulse, and oxygen saturations were monitored continuously. The Scope was introduced through the mouth, and advanced to the second part of duodenum. After obtaining informed consent, the endoscope was passed under direct vision. Throughout the procedure, the patient's blood pressure, pulse, and oxygen saturations were monitored continuously.The small bowel enteroscopy was accomplished without difficulty. The patient tolerated the procedure well. Findings: Moderately severe esophagitis with no bleeding was found. Few cratered esophageal ulcers with no stigmata of recent bleeding were found. The largest lesion was 3 mm in largest dimension. A medium-sized hiatal hernia was present. The examined duodenum was normal. Impression: - Moderately severe reflux esophagitis with no bleeding. - Esophageal ulcers with no stigmata of recent bleeding. - Medium-sized hiatal hernia. - Normal examined duodenum. - No specimens collected. Recommendation: - [facility] patient to [facility]. - Clear liquid diet. - Continue present medications. - Return to primary care physician as previously scheduled. Luke Anderson DO 03/14/2024 12:49:03 PM This report has been signed electronically. Note Initiated On: 03/14/2024 12:10 PM Number of Addenda: 0 I attest to the content of the Intraoperative Record and orders documented therein, exceptions below {[id number]}
--- NOTE | 2024-03-14 13:44 | Anesthesiology Progress Note ---
Date of Service March 14, 2024 Anesthesia Post Procedure Vital Signs Vital Signs: Temp Pulse Pulse Resp BP BP Pulse Ox 03/14/24 12:57 93 H 18 111/64 100 03/14/24 12:42 95 H 20 113/56 L 95 03/14/24 12:27 107 H 20 112/59 L 96 03/14/24 11:47 36.8 C 101 H 20 116/66 100 03/14/24 11:00 88 15 119/62 100 03/14/24 10:00 112/74 03/14/24 10:00 94 H 27 H 100 03/14/24 09:00 120/70 03/14/24 09:00 96 H 22 96 03/14/24 08:46 93 H 18 97 03/14/24 08:46 133/77 03/14/24 08:00 130/71 03/14/24 08:00 99 H 28 H 98 03/14/24 07:00 108/65 03/14/24 07:00 108/65 03/14/24 07:00 98 H 18 03/14/24 06:00 98 H 17 107/67 03/14/24 05:00 100 H 21 135/73 03/14/24 04:54 103 H 22 133/72 95 03/14/24 04:05 37.2 C 03/14/24 04:00 100 H 18 98 03/14/24 03:00 100 H 24 98 03/14/24 03:00 95/61 L 03/14/24 02:00 107 H 19 95 03/14/24 02:00 122/72 03/14/24 01:00 109/62 03/14/24 01:00 106 H 17 95 03/14/24 00:00 111/73 03/14/24 00:00 112 H 17 97 03/14/24 00:00 37.0 C 03/14/24 00:00 112 H 03/13/24 23:00 130/79 03/13/24 23:00 107 H 23 98 03/13/24 22:43 107 H 18 97 03/13/24 22:43 131/76 03/13/24 22:00 110 H 21 98 03/13/24 21:30 101/76 03/13/24 21:30 113 H 16 99 03/13/24 21:01 119 H 35 H 03/13/24 21:01 93/68 L 03/13/24 21:00 113 H 22 03/13/24 20:32 112 H 03/13/24 20:30 109 H 28 H 03/13/24 20:28 03/13/24 20:15 61 29 H 96 03/13/24 19:55 36.9 C 101 H 14 118/89 100 03/13/24 19:30 36.9 C 104 H 14 118/89 95 03/13/24 19:00 99 H 16 137/82 98 03/13/24 18:36 102 H 18 148/79 H 99 03/13/24 18:21 36.8 C 98 H 18 124/73 96 03/13/24 18:05 36.8 C 113 H 19 132/82 98 03/13/24 18:03 36.8 C 103 H 18 132/82 99 03/13/24 18:00 103 H 17 98 03/13/24 18:00 132/82 03/13/24 18:00 107 H 18 132/82 96 03/13/24 17:58 112 H 18 125/76 97 03/13/24 17:57 125/76 03/13/24 17:57 101 H 14 99 03/13/24 17:50 100 H 17 98 03/13/24 17:49 127/79 03/13/24 17:49 100 H 10 L 99 03/13/24 17:40 124/66 03/13/24 17:40 97 H 18 100 03/13/24 17:39 36.8 C 106 H 18 117/69 100 03/13/24 17:30 117/69 03/13/24 17:30 117/69 03/13/24 17:30 109 H 20 99 03/13/24 17:20 124/74 03/13/24 17:20 124/74 03/13/24 17:20 103 H 16 100 03/13/24 17:10 106 H 18 100 03/13/24 17:10 112/68 03/13/24 17:09 36.8 C 104 H 18 112/68 100 03/13/24 17:00 127/87 03/13/24 17:00 127/87 03/13/24 17:00 115 H 15 100 03/13/24 16:56 18 03/13/24 16:54 37.1 C 113 H 18 118/76 100 03/13/24 16:50 118/76 03/13/24 16:50 118/76 03/13/24 16:50 113 H 18 03/13/24 16:40 138/83 03/13/24 16:40 112 H 16 89 L 03/13/24 16:35 37.0 C 113 H 17 124/90 93 03/13/24 16:30 124/90 03/13/24 16:30 117 H 17 03/13/24 16:23 119 H 03/13/24 16:20 194/114 H 03/13/24 16:15 147/123 H 03/13/24 16:10 108 H 24 03/13/24 16:00 172/95 H 03/13/24 16:00 112 H 22 100 03/13/24 15:53 112 H 03/13/24 15:50 113 H 20 03/13/24 15:50 168/120 H 03/13/24 15:48 115 H 22 03/13/24 15:48 167/99 H 03/13/24 15:47 113 H 22 03/13/24 15:30 153/86 H 03/13/24 15:30 107 H 21 03/13/24 15:20 105 H 16 100 03/13/24 15:20 133/79 03/13/24 15:19 106 H 20 95 03/13/24 15:19 103/79 03/13/24 15:16 106 H 24 03/13/24 15:16 96 03/13/24 14:56 18 100 03/13/24 14:56 37.5 C 104 H 18 133/79 100 O2 Del Method O2 Flow Rate 03/14/24 12:57 Room Air 03/14/24 12:42 Room Air 03/14/24 12:27 Room Air 03/14/24 11:47 Room Air 03/14/24 11:00 03/14/24 10:00 03/14/24 10:00 03/14/24 09:00 03/14/24 09:00 03/14/24 08:46 03/14/24 08:46 03/14/24 08:00 03/14/24 08:00 03/14/24 07:00 03/14/24 07:00 03/14/24 07:00 03/14/24 06:00 03/14/24 05:00 03/14/24 04:54 03/14/24 04:05 03/14/24 04:00 03/14/24 03:00 03/14/24 03:00 03/14/24 02:00 03/14/24 02:00 03/14/24 01:00 03/14/24 01:00 03/14/24 00:00 03/14/24 00:00 03/14/24 00:00 03/14/24 00:00 03/13/24 23:00 03/13/24 23:00 03/13/24 22:43 03/13/24 22:43 03/13/24 22:00 03/13/24 21:30 03/13/24 21:30 03/13/24 21:01 03/13/24 21:01 03/13/24 21:00 03/13/24 20:32 03/13/24 20:30 03/13/24 20:28 Nasal Cannula 2 03/13/24 20:15 03/13/24 19:55 2 03/13/24 19:30 Nasal Cannula 2 03/13/24 19:00 03/13/24 18:36 2 03/13/24 18:21 03/13/24 18:05 03/13/24 18:03 03/13/24 18:00 03/13/24 18:00 03/13/24 18:00 Room Air 03/13/24 17:58 2 03/13/24 17:57 03/13/24 17:57 03/13/24 17:50 03/13/24 17:49 03/13/24 17:49 03/13/24 17:40 03/13/24 17:40 03/13/24 17:39 2 03/13/24 17:30 03/13/24 17:30 03/13/24 17:30 03/13/24 17:20 03/13/24 17:20 03/13/24 17:20 03/13/24 17:10 03/13/24 17:10 03/13/24 17:09 4 03/13/24 17:00 03/13/24 17:00 03/13/24 17:00 03/13/24 16:56 03/13/24 16:54 03/13/24 16:50 03/13/24 16:50 03/13/24 16:50 03/13/24 16:40 03/13/24 16:40 Nasal Cannula 2 03/13/24 16:35 2 03/13/24 16:30 03/13/24 16:30 03/13/24 16:23 03/13/24 16:20 03/13/24 16:15 03/13/24 16:10 03/13/24 16:00 03/13/24 16:00 03/13/24 15:53 03/13/24 15:50 03/13/24 15:50 03/13/24 15:48 03/13/24 15:48 03/13/24 15:47 03/13/24 15:30 03/13/24 15:30 03/13/24 15:20 03/13/24 15:20 03/13/24 15:19 03/13/24 15:19 03/13/24 15:16 03/13/24 15:16 Room Air 03/13/24 14:56 Nasal Cannula 2 03/13/24 14:56 Room Air Pain Intensity Penis: Pain Intensity: 5 Transfer of Care Handoff Completed per policy Notes Mental Status: alert / awake / arousable Patient Amnestic to Procedure: Yes Nausea / Vomiting: adequately controlled Pain: adequately controlled Airway Patency, RR, SpO2: stable & adequate BP & HR: stable & adequate Hydration State: stable & adequate Anesthetic Complications: no major complications apparent and Pt Satisfied with anesthetic care
[2024-03-14] MEDS: LIDOCAINE 2% 2 ML VIAL/AMP(20MG/ML) INFIL ONE (14:15)
[2024-03-14] MEDS: PROPOFOL IV EMULSION 10 MG/ML 20 ML VIAL IV ONE ×2 (14:16)
[2024-03-14] MEDS: PHENYLEPHRINE 100MCG/ML 10ML SYR IV ONE (14:16)
--- NOTE | 2024-03-14 15:31 | Hospitalist Progress Note ---
Date of Service March 14, 2024 Assessment & Plan (1) Acute upper GI bleed: (2) Acute blood loss anemia: Plan: Acute upper GI bleed Hematemesis Acute blood loss anemia Likely secondary to esophagitis, esophageal ulcers --S/P EGD:Moderately severe reflux esophagitis with no bleeding. Esophageal ulcers with no stigmata of recent bleeding. Medium-sized hiatal hernia. Normal examined duodenum. No specimens collected. --CT ABD:Moderate to severe distention of the stomach which is fluid-filled. This is concerning for gastric outlet obstruction. However, no clear transition point identified. Distended and thick-walled gallbladder with pericholecystic inflammatory change/edema. This is highly suspicious for an acute cholecystitis. Surgical consultation recommended for further evaluation. There is a 12 mm nodular density remaining at the area of consolidation within the right lower lobe seen on the prior study. [address] follow-up recommended to ensure stability/resolution. 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 Urine culture growing gram-negative bacilli Empirically on Rocephin Will change Rushing catheter today Right lower lobe density Also noted on prior CT Will need CT chest in 6 months to ensure stability/resolution Follow-up as outpatient Hyperkalemia Metabolic acidosis Likely secondary to BRUNA Lisinopril held Monitor potassium levels (4) BRUNA (acute kidney injury): Plan: Creatinine baseline ~ 1.5 Cr 2.5 today Lisinopril, Home diuretics on hold Continue IV fluids Avoid nephrotoxic agents as able Monitor renal function (5) CAD (coronary artery disease): Plan: Continue home medications Plavix held due to GI bleed (6) Hypertension: (7) Dyslipidemia: Plan: On Lipitor (8) DM type 2 (diabetes mellitus, type 2): Plan: Update HbA1c Continue insulin while hospitalized Monitor BGs (9) Chronic ischemic right MCA stroke: Plan: - Hx of such in March 2020 - held Plavix, Eliquis due to GI bleed - Residual cognitive disability noted previously - pt is awake oriented and participates in conversation. DVT Px: Teds, SCDs CODE STATUS: Full code Admission and Anticipated Discharge Date Admission Date: March 13, 2024 Subjective Patient is seen and examined at bedside States feeling thirsty Had EGD earlier today Denies any bleeding issues Also denies any nausea, vomiting, abdominal pain, chest pain, dyspnea Reports abdominal tenderness No other complaints Review of Systems Review of Systems: All systems reviewed & are unremarkable except as noted in Subjective Physical Exam Physical Exam: Physical Exam: Vitals signs as noted above General Appearance:Thin, no apparent distress Head: normocephalic, Atraumatic Eyes: normal inspection, EOMI Neck: supple, Trachea midline Respiratory/Chest: Normal breath sounds, CTA, No accessory muscle use Cardiovascular: S1, S2, No murmur Abdomen/GI:Soft, RUQ tender, Bowel sounds present, no guarding or rigidity Extremities/Musculoskeletal:normal inspection, no edema Neurologic/Psych:AAOX3, grossly no focal neurological deficits Skin: normal color, warm Results & Data Results & Data Vital Signs (Past 12 Hours) Vital Signs Temp Pulse Pulse Resp BP BP Pulse Ox 03/14/24 14:45 101 H 17 98 03/14/24 14:45 154/75 H 03/14/24 14:30 120/63 03/14/24 14:30 100 H 19 95 03/14/24 14:15 97 H 17 96 03/14/24 14:15 116/65 03/14/24 14:00 127/66 03/14/24 14:00 87 18 95 03/14/24 13:45 96 H 21 95 03/14/24 13:45 120/69 03/14/24 13:30 86 15 87 L 03/14/24 13:30 119/73 03/14/24 13:15 83 45 H 93 03/14/24 13:15 130/71 03/14/24 13:07 128/69 03/14/24 13:07 83 27 H 85 L 03/14/24 13:06 85 29 H 03/14/24 12:57 93 H 18 111/64 100 03/14/24 12:45 96 H 20 94 03/14/24 12:42 113/56 L 03/14/24 12:42 94 H 20 99 03/14/24 12:42 95 H 20 113/56 L 95 03/14/24 12:30 99 H 18 96 03/14/24 12:27 112/59 L 03/14/24 12:27 106 H 26 H 95 03/14/24 12:27 107 H 20 112/59 L 96 03/14/24 12:20 96 H 16 100 03/14/24 12:20 139/78 03/14/24 12:15 87 23 100 03/14/24 11:47 36.8 C 101 H 20 116/66 100 03/14/24 11:30 94 H 13 97 03/14/24 11:15 94 H 17 95 03/14/24 11:01 119/62 03/14/24 11:01 90 24 92 03/14/24 11:00 88 15 119/62 100 03/14/24 10:00 112/74 03/14/24 10:00 94 H 27 H 100 03/14/24 09:00 120/70 03/14/24 09:00 96 H 22 96 03/14/24 08:46 93 H 18 97 03/14/24 08:46 133/77 03/14/24 08:00 130/71 03/14/24 08:00 99 H 28 H 98 03/14/24 07:00 108/65 03/14/24 07:00 108/65 03/14/24 07:00 98 H 18 03/14/24 06:00 98 H 17 107/67 03/14/24 05:00 100 H 21 135/73 03/14/24 04:54 103 H 22 133/72 95 03/14/24 04:05 37.2 C 03/14/24 04:00 100 H 18 98 O2 Del Method 03/14/24 14:45 03/14/24 14:45 03/14/24 14:30 03/14/24 14:30 03/14/24 14:15 03/14/24 14:15 03/14/24 14:00 03/14/24 14:00 03/14/24 13:45 03/14/24 13:45 03/14/24 13:30 03/14/24 13:30 03/14/24 13:15 03/14/24 13:15 03/14/24 13:07 03/14/24 13:07 03/14/24 13:06 03/14/24 12:57 Room Air 03/14/24 12:45 03/14/24 12:42 03/14/24 12:42 03/14/24 12:42 Room Air 03/14/24 12:30 03/14/24 12:27 03/14/24 12:27 03/14/24 12:27 Room Air 03/14/24 12:20 03/14/24 12:20 03/14/24 12:15 03/14/24 11:47 Room Air 03/14/24 11:30 03/14/24 11:15 03/14/24 11:01 03/14/24 11:01 03/14/24 11:00 03/14/24 10:00 03/14/24 10:00 03/14/24 09:00 03/14/24 09:00 03/14/24 08:46 03/14/24 08:46 03/14/24 08:00 03/14/24 08:00 03/14/24 07:00 03/14/24 07:00 03/14/24 07:00 03/14/24 06:00 03/14/24 05:00 03/14/24 04:54 03/14/24 04:05 03/14/24 04:00 Laboratory Results Short CBC 03/13/24 03/13/24 03/13/24 Range/Units 15:18 21:00 22:46 WBC 24.17 H 22.47 H (4.8-10.8) K/ul Hgb 8.5 L 12.2 L D 11.4 L (14.0-18.0) g/dl Hct 27.2 L 34.5 L (42.0-52.0) % Plt Count 262 259 (130-400) K/uL 03/14/24 Range/Units 03:21 WBC 25.74 H (4.8-10.8) K/ul Hgb 11.4 L (14.0-18.0) g/dl Hct 35.5 L (42.0-52.0) % Plt Count 222 (130-400) K/uL BMP 03/13/24 03/13/24 03/14/24 15:18 20:58 03:21 Sodium 136 140 Potassium 5.8 H 5.3 H 5.2 H Chloride 110 H 114 H Carbon Dioxide 16 L 19 L BUN 95 H 75 H D Creatinine 3.48 H 2.57 H D Glucose 319 H* 174 H Calcium 8.4 L 9.0 Liver Function 03/13/24 03/14/24 Range/Units 15:18 03:21 Total Bilirubin 0.4 0.7 (0.2-1.0) mg/dl AST 9 L 16 (13-39) U/L ALT 16 17 (7-52) U/L Alkaline Phosphatase 64 72 (34-104) U/L Albumin 2.8 L 3.2 L (3.4-5.0) gm/dl Urine 03/13/24 Range/Units 16:50 Urine Color Yellow Urine Appearance Cloudy A (Clear) Urine pH 5.5 (4.5-7.5) Ur Specific [place] 1.013 (1.000-1.030) Urine Protein Trace H (Negative) Urine Glucose (UA) 3+ H (Negative) (6) Hypertension Hypertension type: unspecified Qualified Code(s): I10 - Essential (primary) hypertension
[2024-03-14] MEDS: cefTRIAXone SODIUM 2,000 MG/50 ML BAG IV SCH (16:34)
[2024-03-14] MEDS: LIDOCAINE 5% OINT 30 GM TUBE EXT PRN (19:45)
[2024-03-14] MEDS: TAMSULOSIN HCL 0.4 MG CAP PO SCH (20:50)
[2024-03-14] MEDS: PANTOprazole 40 MG in SYRINGE BID IV SCH (20:50)
[2024-03-14] MEDS: METOPROLOL SUCC 25MG EXT REL TAB PO SCH (20:50)
[2024-03-14] MEDS: rOPINIRole HCL 0.25 MG TABLET PO SCH (20:50)
[2024-03-14] MEDS ORDERED: PANTOprazole 40 MG in DEXTROSE 5% MINI-B 100 ML IV SCH (21:00)
[2024-03-14] MEDS: ONDANSETRON INJ 2 MG/ML 2 ML VIAL IV PRN (21:39)
[2024-03-14] MEDS: HYDROmorphone INJ 0.5 MG/0.5 ML SYR IV STA (22:30)
[2024-03-15] MEDS: HYDROmorphone INJ 0.5 MG/0.5 ML SYR IV PRN (03:48)
[2024-03-15 04:18] LABS: Hematocrit (blood only) 28.5 % (42.0-52.0); Hemoglobin 9.3 g/dl (14.0-18.0); Mean Corpuscular Hemoglobin 25.8 pg (25.0-34.0); Mean Corpuscular Hgb Conc 32.6 g/dL (32.0-36.0); Mean Corpuscular Volume 78.9 fL (80.0-100.0); Mean Platelet Volume 10.1 fL (9.4-12.4); Platelet Count 190 K/uL (130-400); RDW Standard Deviation 50.3 fL (36.4-46.3); Red Blood Count 3.61 M/uL (4.70-6.10); White Blood Count 14.86 K/ul (4.8-10.8)
[2024-03-15 04:35] LABS: BUN Creatinine Ratio 27.2 (10-20); Calcium 8.4 mg/dl (8.6-10.3); Creatinine Clr Calc Pharmacy 51.5 ml/min; Est GFR (Non-African American) 49.2 ml/min; Potassium 4.4 mmol/L (3.5-5.1)
[2024-03-15 07:00] LABS: Estimated Average Glucose 169 mg/dl; Hemoglobin A1C 7.5 % (4.5-5.6)
[2024-03-15] MEDS: SERTRALINE HCL 50 MG TABLET PO SCH (07:52)
[2024-03-15] MEDS: PHENAZOPYRIDINE HCL 200 MG TAB PO PRN (08:14)
--- NOTE | 2024-03-15 10:50 | Gastroenterology Progress Note ---
Date of Service March 15, 2024 Assessment & Plan (1) Acute blood loss anemia: (2) Acute upper GI bleed: (3) Ulcer, esophagus: Plan Patient is a 53 y.o. male admitted with epigastric pain and hematemesis with severe esophagitis and esophageal ulcer noted on EGD 03/14. 1. Soft diet. 2. Continue Protonix 40 mg BID. 3. Rest per primary team. 4. Outpatient follow up in our office upon discharge for ongoing medical management. Admission and Anticipated Discharge Date Admission Date: March 13, 2024 Subjective Patient reports feeling well this morning. Had minor sore throat yesterday afternoon after EGD but has since subsided. Findings of severe esophagitis with ulcer. Tolerating full liquids. No overt GIB. Continues PPI BID. Review of Systems Constitutional: no problem reported Gastrointestinal: as per Subjective / HPI Physical Exam Constitutional: WD/WN, vitals as above Respiratory: normal respiratory effort, lungs clear to auscultation Cardiovascular: Rate/Rhythm: regular rate and regular rhythm Gastrointestinal (Abdomen): normal bowel sounds, soft, nontender, no hepatosplenomegaly Results & Data Results & Data Vital Signs (Past 12 Hours) Vital Signs Temp Pulse Pulse Resp BP BP Pulse Ox 03/15/24 08:35 36.5 C 03/15/24 08:00 116/59 L 03/15/24 08:00 90 19 96 03/15/24 07:27 03/15/24 07:00 90 12 03/15/24 03:59 36.7 C 85 12 133/66 98 03/15/24 00:45 37.1 C 98 H 21 139/69 03/15/24 00:00 105 H O2 Del Method 03/15/24 08:35 03/15/24 08:00 03/15/24 08:00 03/15/24 07:27 Room Air 03/15/24 07:00 03/15/24 03:59 Room Air 03/15/24 00:45 Room Air 03/15/24 00:00 Laboratory Results Abnormal lab results 03/14/24 03/14/24 03/14/24 Range/Units 11:27 16:19 20:46 WBC (4.8-10.8) K/ul RBC (4.70-6.10) M/uL Hgb (14.0-18.0) g/dl Hct (42.0-52.0) % MCV (80.0-100.0) fL RDW Std Deviation (36.4-46.3) fL RDW Coeff of Dione (11.5-14.5) % Chloride (98-107) mmol/L BUN (6-23) mg/dl Creatinine (0.6-1.4) mg/dl BUN/Creatinine Ratio (10-20) Glucose (70-99(Fasting)) mg/dl POC Glucose 167 H 142 H 242 H (70-99) mg/dl Hemoglobin A1c (4.5-5.6) % Calcium (8.6-10.3) mg/dl 03/15/24 Range/Units 03:54 WBC 14.86 H (4.8-10.8) K/ul RBC 3.61 L (4.70-6.10) M/uL Hgb 9.3 L (14.0-18.0) g/dl Hct 28.5 L (42.0-52.0) % MCV 78.9 L (80.0-100.0) fL RDW Std Deviation 50.3 H (36.4-46.3) fL RDW Coeff of Dione 18.0 H (11.5-14.5) % Chloride 112 H (98-107) mmol/L BUN 43 H D (6-23) mg/dl Creatinine 1.58 H D (0.6-1.4) mg/dl BUN/Creatinine Ratio 27.2 H (10-20) Glucose 144 H (70-99(Fasting)) mg/dl POC Glucose (70-99) mg/dl Hemoglobin A1c 7.5 H (4.5-5.6) % Calcium 8.4 L (8.6-10.3) mg/dl PG Care Time/CCT Total # of Minutes Spent Total Time Spent with Patient: Total time spent is greater than 50% in coordination of care (as documented) at patient's floor/unit and/or counseling patient: Coding Level of Care Code 18931 SUB INP/OBS CARE 3/50MIN Diagnoses Acute blood loss anemia D62 Acute upper GI bleed K92.2 Ulcer, esophagus K22.10
[2024-03-15] MEDS: CEFEPIME 2,000 MG in SYRINGE 0 ML IV SCH (11:00)
--- NOTE | 2024-03-15 15:51 | Surgery Progress Note ---
Date of Service March 15, 2024 Assessment & Plan (1) Acute upper GI bleed: Plan: EGD showing esophageal ulcers nonbleeding (2) Acute cholecystitis: Plan: leukocytosis improving (14k today 25K yesterday) Plan 53-year-old gentleman presents with massive upper GI bleed as well as what appears to be acute cholecystitis on CT scan. He has a very significant cardiac history, is on Eliquis and Plavix, has drug-eluting stents, and has a cardiac ejection fraction of 20%. He is a very high surgical risk. 03/15/2024 - afebrile leukocytosis improving no abdominal pain resting comfortably in bed. Plan: No plan for surgical management of the acute cholecystitis. He may require percutaneous cholecystostomy tube if he fails to improve. Improving with IV antibiotics. Continue antibiotics, low fat diet recommended. Will continue to follow. Dr. Ruano has seen and examined patient, agrees with above. Admission and Anticipated Discharge Date Admission Date: March 13, 2024 Subjective feeling better today no abdominal pain no pain after eating soft diet no n,v no fevers or chills Physical Exam Constitutional: WD/WN, vitals as above cooperative and comfortable; no acute distress and not ill appearing Gastrointestinal (Abdomen): Inspection/Auscultation: abdomen normal to inspection; abdomen not distended Percussion/Palpation: + abdomen tender (RUQ) and abdomen soft; no guarding, abdomen not rigid and abdomen not firm Skin: no rashes, warm and dry no jaundice Psychiatric: A+Ox3, euthymic affect Results & Data Vital Signs (Past 12 Hours) Vital Signs Temp Pulse Pulse Resp BP BP Pulse Ox 03/15/24 14:59 36.9 C 67 19 92/61 L 100 03/15/24 14:55 70 18 03/15/24 14:00 76 15 03/15/24 12:00 87 14 03/15/24 11:02 36.6 C 03/15/24 10:58 77 15 97 03/15/24 10:58 109/58 L 03/15/24 10:00 79 13 03/15/24 08:35 36.5 C 03/15/24 08:00 116/59 L 03/15/24 08:00 90 19 96 03/15/24 07:27 03/15/24 07:00 90 12 03/15/24 03:59 36.7 C 85 12 133/66 98 O2 Del Method 03/15/24 14:59 Room Air 03/15/24 14:55 03/15/24 14:00 03/15/24 12:00 03/15/24 11:02 03/15/24 10:58 03/15/24 10:58 03/15/24 10:00 03/15/24 08:35 03/15/24 08:00 03/15/24 08:00 03/15/24 07:27 Room Air 03/15/24 07:00 03/15/24 03:59 Room Air Laboratory Results 03/15/24 03/15/24 03/14/24 Range/Units 10:59 03:54 20:46 WBC 14.86 H (4.8-10.8) K/ul RBC 3.61 L (4.70-6.10) M/uL Hgb 9.3 L (14.0-18.0) g/dl Hct 28.5 L (42.0-52.0) % MCV 78.9 L (80.0-100.0) fL MCH 25.8 (25.0-34.0) pg MCHC 32.6 (32.0-36.0) g/dL RDW Std Deviation 50.3 H (36.4-46.3) fL RDW Coeff of Dione 18.0 H (11.5-14.5) % Plt Count 190 (130-400) K/uL MPV 10.1 (9.4-12.4) fL Sodium 139 (136-145) mmol/L Potassium 4.4 (3.5-5.1) mmol/L Chloride 112 H (98-107) mmol/L Carbon Dioxide 21 (21-32) mmol/L Anion Gap 6 (3-11) BUN 43 H D (6-23) mg/dl Creatinine 1.58 H D (0.6-1.4) mg/dl Est Cr Clr Drug Dosing 51.5 ml/min Est GFR ( Amer) 57.0 ml/min Est GFR (Non-Af Amer) 49.2 ml/min BUN/Creatinine Ratio 27.2 H (10-20) Glucose 144 H (70-99(Fasting)) mg/dl POC Glucose 181 H 242 H (70-99) mg/dl Estimat Average Glucose 169 mg/dl Hemoglobin A1c 7.5 H (4.5-5.6) % Hgb A1c Pathologist Com Calcium 8.4 L (8.6-10.3) mg/dl Magnesium 2.0 (1.7-2.4) mg/dl 03/14/24 Range/Units 16:19 WBC (4.8-10.8) K/ul RBC (4.70-6.10) M/uL Hgb (14.0-18.0) g/dl Hct (42.0-52.0) % MCV (80.0-100.0) fL MCH (25.0-34.0) pg MCHC (32.0-36.0) g/dL RDW Std Deviation (36.4-46.3) fL RDW Coeff of Dione (11.5-14.5) % Plt Count (130-400) K/uL MPV (9.4-12.4) fL Sodium (136-145) mmol/L Potassium (3.5-5.1) mmol/L Chloride (98-107) mmol/L Carbon Dioxide (21-32) mmol/L Anion Gap (3-11) BUN (6-23) mg/dl Creatinine (0.6-1.4) mg/dl Est Cr Clr Drug Dosing ml/min Est GFR ( Amer) ml/min Est GFR (Non-Af Amer) ml/min BUN/Creatinine Ratio (10-20) Glucose (70-99(Fasting)) mg/dl POC Glucose 142 H (70-99) mg/dl Estimat Average Glucose mg/dl Hemoglobin A1c (4.5-5.6) % Hgb A1c Pathologist Com Calcium (8.6-10.3) mg/dl Magnesium (1.7-2.4) mg/dl
--- NOTE | 2024-03-15 16:14 | Hospitalist Progress Note ---
Date of Service March 15, 2024 Assessment & Plan (1) Acute upper GI bleed: (2) Acute blood loss anemia: Plan: Acute upper GI bleed Hematemesis Acute blood loss anemia Likely secondary to esophagitis, esophageal ulcers --S/P EGD:Moderately severe reflux esophagitis with no bleeding. Esophageal ulcers with no stigmata of recent bleeding. Medium-sized hiatal hernia. Normal examined duodenum. No specimens collected. --CT ABD:Moderate to severe distention of the stomach which is fluid-filled. This is concerning for gastric outlet obstruction. However, no clear transition point identified. Distended and thick-walled gallbladder with pericholecystic inflammatory change/edema. This is highly suspicious for an acute cholecystitis. Surgical consultation recommended for further evaluation. There is a 12 mm nodular density remaining at the area of consolidation within the right lower lobe seen on the prior study. [address] follow-up recommended to ensure stability/resolution. 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 Urine culture grew Citrobacter Empirically on Rocephin>> changed to cefepime Day #1 changed Rushing catheter Right lower lobe density Also noted on prior CT Will need CT chest in 6 months to ensure stability/resolution Follow-up as outpatient Hyperkalemia Metabolic acidosis Likely secondary to BRUNA Lisinopril held Monitor potassium levels Hyperkalemia resolved (4) BRUNA (acute kidney injury): Plan: Creatinine baseline ~ 1.5 Cr back to baseline Lisinopril, Home diuretics on hold Continue IV fluids Avoid nephrotoxic agents as able Monitor renal function (5) CAD (coronary artery disease): Plan: Continue home medications Plavix held due to GI bleed (6) Hypertension: (7) Dyslipidemia: Plan: On Lipitor (8) DM type 2 (diabetes mellitus, type 2): Plan: HbA1c 7.5 Continue insulin while hospitalized Monitor BGs (9) Chronic ischemic right MCA stroke: Plan: - Hx of such in March 2020 - held Plavix, Eliquis due to GI bleed - Residual cognitive disability noted previously - pt is awake oriented and participates in conversation. DVT Px: Teds, SCDs CODE STATUS: Full code Admission and Anticipated Discharge Date Admission Date: March 13, 2024 Subjective Patient is seen and examined at bedside Denies any abdominal pain today Tolerating diet No recurrence of bleeding issues Denies any nausea, vomiting, chest pain, dyspnea No other complaints Review of Systems Review of Systems: All systems reviewed & are unremarkable except as noted in Subjective Physical Exam Physical Exam: Physical Exam: Vitals signs as noted above General Appearance:Thin, no apparent distress Head: normocephalic, Atraumatic Eyes: normal inspection, EOMI Neck: supple, Trachea midline Respiratory/Chest: Normal breath sounds, CTA, No accessory muscle use Cardiovascular: S1, S2, No murmur Abdomen/GI:Soft, non tender, Bowel sounds present, no guarding or rigidity Extremities/Musculoskeletal:normal inspection, no edema Neurologic/Psych:AAOX3, grossly no focal neurological deficits Skin: normal color, warm Results & Data Results & Data Vital Signs (Past 12 Hours) Vital Signs Temp Pulse Pulse Resp BP BP Pulse Ox 03/15/24 14:59 36.9 C 67 19 92/61 L 100 03/15/24 14:55 70 18 03/15/24 14:00 76 15 03/15/24 12:00 87 14 03/15/24 11:02 36.6 C 03/15/24 10:58 77 15 97 03/15/24 10:58 109/58 L 03/15/24 10:00 79 13 03/15/24 08:35 36.5 C 03/15/24 08:00 116/59 L 03/15/24 08:00 90 19 96 03/15/24 07:27 03/15/24 07:00 90 12 O2 Del Method 03/15/24 14:59 Room Air 03/15/24 14:55 03/15/24 14:00 03/15/24 12:00 03/15/24 11:02 03/15/24 10:58 03/15/24 10:58 03/15/24 10:00 03/15/24 08:35 03/15/24 08:00 03/15/24 08:00 03/15/24 07:27 Room Air 03/15/24 07:00 Laboratory Results Short CBC 03/15/24 Range/Units 03:54 WBC 14.86 H (4.8-10.8) K/ul Hgb 9.3 L (14.0-18.0) g/dl Hct 28.5 L (42.0-52.0) % Plt Count 190 (130-400) K/uL BMP 03/15/24 03:54 Sodium 139 Potassium 4.4 Chloride 112 H Carbon Dioxide 21 BUN 43 H D Creatinine 1.58 H D Glucose 144 H Calcium 8.4 L (6) Hypertension Hypertension type: unspecified Qualified Code(s): I10 - Essential (primary) hypertension
[2024-03-16 06:41] LABS: Hematocrit (blood only) 26.6 % (42.0-52.0); Hemoglobin 8.5 g/dl (14.0-18.0); Mean Corpuscular Hemoglobin 25.4 pg (25.0-34.0); Mean Corpuscular Volume 79.6 fL (80.0-100.0); Mean Platelet Volume 10.6 fL (9.4-12.4); Platelet Count 187 K/uL (130-400); RDW Coefficient of Variation 18.1 % (11.5-14.5); RDW Standard Deviation 51.5 fL (36.4-46.3); Red Blood Count 3.34 M/uL (4.70-6.10); White Blood Count 10.35 K/ul (4.8-10.8)
[2024-03-16 07:35] LABS: Potassium 4.3 mmol/L (3.5-5.1)
[2024-03-16 07:42] LABS: BUN Creatinine Ratio 17.1 (10-20); Creatinine Clr Calc Pharmacy 62.7 ml/min; Est GFR (African American) 72.9 ml/min; Est GFR (Non-African American) 62.9 ml/min
--- NOTE | 2024-03-16 11:49 | Gastroenterology Progress Note ---
Date of Service March 16, 2024 Assessment & Plan (1) Acute blood loss anemia: (2) Acute upper GI bleed: (3) Ulcer, esophagus: Plan Patient is a 53 y.o. male admitted with epigastric pain and hematemesis with severe esophagitis and esophageal ulcer noted on EGD 03/14. 1. Soft diet. 2. Continue Protonix 40 mg BID. 3. Rest per primary team. 4. Outpatient follow up in our office upon discharge for ongoing medical management. GI sign off at this time. Admission and Anticipated Discharge Date Admission Date: March 13, 2024 Subjective Patient feeling well. Tolerating diet. Per nursing, no overt GIB despite slight drop in hemoglobin. Review of Systems Constitutional: + weakness; no fever and no chills Gastrointestinal: as per Subjective / HPI Physical Exam Constitutional: well developed and well nourished Eyes: EOM intact bilaterally Neck: normal visual inspection Respiratory: normal respiratory effort Skin: normal color Psychiatric: A+Ox3, euthymic affect Results & Data Results & Data Vital Signs (Past 12 Hours) Vital Signs Temp Pulse Pulse Resp BP Pulse Ox O2 Del Method 03/16/24 10:43 37.1 C 77 16 127/67 95 Room Air 03/16/24 08:00 84 03/16/24 07:44 Room Air 03/16/24 07:21 37.3 C 76 20 112/61 97 Room Air 03/16/24 03:00 36.6 C 79 14 118/59 L 97 Room Air 03/16/24 00:00 81 PG Care Time/CCT Total # of Minutes Spent Total Time Spent with Patient: Total time spent is greater than 50% in coordination of care (as documented) at patient's floor/unit and/or counseling patient: Coding Level of Care Code 62743 SUB INP/OBS CARE 3/50MIN Diagnoses Acute blood loss anemia D62 Acute upper GI bleed K92.2 Ulcer, esophagus K22.10
--- NOTE | 2024-03-16 15:25 | Surgery Progress Note ---
Date of Service March 16, 2024 Assessment & Plan (1) Acute upper GI bleed: Plan: EGD showing esophageal ulcers nonbleeding (2) Acute cholecystitis: Plan: leukocytosis resolved Plan 53-year-old gentleman presents with massive upper GI bleed as well as what appears to be acute cholecystitis on CT scan. He has a very significant cardiac history, is on Eliquis and Plavix, has drug-eluting stents, and has a cardiac ejection fraction of 20%. He is a very high surgical risk. 03/16/2024 afebrile leukocytosis resolved no abdominal pain resting comfortably in bed. Plan: No plan for surgical management of the acute cholecystitis. He is improving with the IV antibiotics. Given his multiple comorbidities and EF 20% and on anticoagulation, would not be a surgical candidate. If his pain reoccurs or if wbc trending up he may require percutaneous cholecystostomy tube. Low fat diet recommended our services signing off, please call with questions/concerns Discussed with Dr. Ruano who agrees with above. Admission and Anticipated Discharge Date Admission Date: March 13, 2024 Subjective feeling well no abdominal pain or pain after eating no n,v tolerating diet Physical Exam Constitutional: WD/WN, vitals as above cooperative and comfortable; no acute distress and not ill appearing Gastrointestinal (Abdomen): Inspection/Auscultation: abdomen normal to inspection; abdomen not distended Percussion/Palpation: abdomen soft; abdomen nontender, no guarding, abdomen not rigid and abdomen not firm Skin: no rashes, warm and dry Psychiatric: A+Ox3, euthymic affect Results & Data Vital Signs (Past 12 Hours) Vital Signs Temp Pulse Pulse Resp BP Pulse Ox O2 Del Method 03/16/24 15:21 37.2 C 75 16 119/62 97 Room Air, Nasal Cannula 03/16/24 10:43 37.1 C 77 16 127/67 95 Room Air 03/16/24 08:00 84 03/16/24 07:44 Room Air 03/16/24 07:21 37.3 C 76 20 112/61 97 Room Air Laboratory Results 03/16/24 03/16/24 03/16/24 Range/Units 11:35 07:14 05:44 WBC 10.35 (4.8-10.8) K/ul RBC 3.34 L (4.70-6.10) M/uL Hgb 8.5 L (14.0-18.0) g/dl Hct 26.6 L (42.0-52.0) % MCV 79.6 L (80.0-100.0) fL MCH 25.4 (25.0-34.0) pg MCHC 32.0 (32.0-36.0) g/dL RDW Std Deviation 51.5 H (36.4-46.3) fL RDW Coeff of Dione 18.1 H (11.5-14.5) % Plt Count 187 (130-400) K/uL MPV 10.6 (9.4-12.4) fL Sodium 139 (136-145) mmol/L Potassium 4.3 (3.5-5.1) mmol/L Chloride 112 H (98-107) mmol/L Carbon Dioxide 22 (21-32) mmol/L Anion Gap 5 (3-11) BUN 22 D (6-23) mg/dl Creatinine 1.29 (0.6-1.4) mg/dl Est Cr Clr Drug Dosing 62.7 ml/min Est GFR ( Amer) 72.9 ml/min Est GFR (Non-Af Amer) 62.9 ml/min BUN/Creatinine Ratio 17.1 (10-20) Glucose 160 H (70-99(Fasting)) mg/dl POC Glucose 119 H 133 H (70-99) mg/dl Calcium 8.0 L (8.6-10.3) mg/dl Crossmatch 03/15/24 03/15/24 03/13/24 Range/Units 20:14 16:03 15:18 WBC (4.8-10.8) K/ul RBC (4.70-6.10) M/uL Hgb (14.0-18.0) g/dl Hct (42.0-52.0) % MCV (80.0-100.0) fL MCH (25.0-34.0) pg MCHC (32.0-36.0) g/dL RDW Std Deviation (36.4-46.3) fL RDW Coeff of Dioen (11.5-14.5) % Plt Count (130-400) K/uL MPV (9.4-12.4) fL Sodium (136-145) mmol/L Potassium (3.5-5.1) mmol/L Chloride (98-107) mmol/L Carbon Dioxide (21-32) mmol/L Anion Gap (3-11) BUN (6-23) mg/dl Creatinine (0.6-1.4) mg/dl Est Cr Clr Drug Dosing ml/min Est GFR ( Amer) ml/min Est GFR (Non-Af Amer) ml/min BUN/Creatinine Ratio (10-20) Glucose (70-99(Fasting)) mg/dl POC Glucose 112 H 111 H (70-99) mg/dl Calcium (8.6-10.3) mg/dl Crossmatch See Detail
--- NOTE | 2024-03-16 17:17 | Hospitalist Progress Note ---
Date of Service March 16, 2024 Assessment & Plan (1) Acute upper GI bleed: (2) Acute blood loss anemia: Plan: Acute upper GI bleed Hematemesis Acute blood loss anemia Likely secondary to esophagitis, esophageal ulcers --S/P EGD:Moderately severe reflux esophagitis with no bleeding. Esophageal ulcers with no stigmata of recent bleeding. Medium-sized hiatal hernia. Normal examined duodenum. No specimens collected. --CT ABD:Moderate to severe distention of the stomach which is fluid-filled. This is concerning for gastric outlet obstruction. However, no clear transition point identified. Distended and thick-walled gallbladder with pericholecystic i nflammatory change/edema. This is highly suspicious for an acute cholecystitis. Surgical consultation recommended for further evaluation. There is a 12 mm nodular density remaining at the area of consolidation within the right lower lobe seen on the prior study. [address] follow-up recommended to ensure stability/resolution. --S/P 2 units PRBCs --Plavix, Eliquis held --Continue Protonix drip>> Protonix IV twice daily Appreciate GI input Monitor H&H and transfuse as needed Needs follow-up with GI on discharge Tolerating GI soft diet Transition to p.o. 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 Urine culture grew Citrobacter Empirically on Rocephin>> changed to cefepime Day #2 changed Rushing catheter Right lower lobe density Also noted on prior CT Will need CT chest in 6 months to ensure stability/resolution Follow-up as outpatient Hyperkalemia Metabolic acidosis Likely secondary to BRUNA Lisinopril held Monitor potassium levels Hyperkalemia, acidosis resolved (4) BRUNA (acute kidney injury): Plan: Creatinine baseline ~ 1.5 Cr back to baseline Lisinopril, Home diuretics on hold Avoid nephrotoxic agents as able Monitor renal function IV fluids discontinued (5) CAD (coronary artery disease): Plan: Continue home medications Plavix held due to GI bleed (6) Hypertension: (7) Dyslipidemia: Plan: On Lipitor (8) DM type 2 (diabetes mellitus, type 2): Plan: HbA1c 7.5 Continue insulin while hospitalized Monitor BGs (9) Chronic ischemic right MCA stroke: Plan: - Hx of such in March 2020 - held Plavix, Eliquis due to GI bleed - Residual cognitive disability noted previously - pt is awake oriented and participates in conversation. DVT Px: Teds, SCDs CODE STATUS: Full code Admission and Anticipated Discharge Date Admission Date: March 13, 2024 Subjective Patient is seen and examined at bedside No new complaints Tolerating diet Denies any significant abdominal pain No recurrence of bleeding Denies any nausea, vomiting, chest pain, dyspnea Review of Systems Review of Systems: All systems reviewed & are unremarkable except as noted in Subjective Physical Exam Physical Exam: Physical Exam: Vitals signs as noted above General Appearance:Thin, no apparent distress Head: normocephalic, Atraumatic Eyes: normal inspection, EOMI Neck: supple, Trachea midline Respiratory/Chest: Normal breath sounds, CTA, No accessory muscle use Cardiovascular: S1, S2, No murmur Abdomen/GI:Soft, non tender, Bowel sounds present, no guarding or rigidity Extremities/Musculoskeletal:normal inspection, no edema Neurologic/Psych:AAOX3, grossly no focal neurological deficits Skin: normal color, warm Results & Data Results & Data Vital Signs (Past 12 Hours) Vital Signs Temp Pulse Pulse Resp BP Pulse Ox O2 Del Method 03/16/24 16:01 74 03/16/24 15:21 37.2 C 75 16 119/62 97 Room Air, Nasal Cannula 03/16/24 10:43 37.1 C 77 16 127/67 95 Room Air 03/16/24 08:00 84 03/16/24 07:44 Room Air 03/16/24 07:21 37.3 C 76 20 112/61 97 Room Air Laboratory Results Short CBC 03/16/24 Range/Units 05:44 WBC 10.35 (4.8-10.8) K/ul Hgb 8.5 L (14.0-18.0) g/dl Hct 26.6 L (42.0-52.0) % Plt Count 187 (130-400) K/uL BMP 03/16/24 05:44 Sodium 139 Potassium 4.3 Chloride 112 H Carbon Dioxide 22 BUN 22 D Creatinine 1.29 Glucose 160 H Calcium 8.0 L (6) Hypertension Hypertension type: unspecified Qualified Code(s): I10 - Essential (primary) hypertension
[2024-03-16] MEDS: CEFEPIME 2,000 MG in SYRINGE 0 ML IV SCH (17:26)
[2024-03-17 06:29] LABS: Hematocrit (blood only) 29.6 % (42.0-52.0); Hemoglobin 9.5 g/dl (14.0-18.0); Mean Corpuscular Hemoglobin 25.4 pg (25.0-34.0); Mean Corpuscular Hgb Conc 32.1 g/dL (32.0-36.0); Mean Corpuscular Volume 79.1 fL (80.0-100.0); Mean Platelet Volume 10.3 fL (9.4-12.4); Nucleated RBC # (auto) 0.02 K/uL (0.00-0.12); Nucleated RBC % (auto) 0.2 %; Platelet Count 211 K/uL (130-400); RDW Coefficient of Variation 18.1 % (11.5-14.5); RDW Standard Deviation 51.9 fL (36.4-46.3); Red Blood Count 3.74 M/uL (4.70-6.10); White Blood Count 8.91 K/ul (4.8-10.8)
[2024-03-17 06:55] LABS: BUN Creatinine Ratio 16.2 (10-20); Calcium 8.6 mg/dl (8.6-10.3); Creatinine Clr Calc Pharmacy 69.6 ml/min; Est GFR (Non-African American) 70.8 ml/min; Magnesium 1.8 mg/dl (1.7-2.4); Potassium 4.5 mmol/L (3.5-5.1)
[2024-03-17] MEDS: ACETAMINOPHEN 325 MG TAB PO PRN (07:24)
[2024-03-17] MEDS ORDERED: HYDROmorphone INJ 0.5 MG/0.5 ML SYR IV PRN ×2 (12:24→13:04)
[2024-03-17] MEDS: oxyCODONE HCL IR 5 MG TAB (IMMEDIATE RELEASE) PO PRN (14:11)
--- NOTE | 2024-03-17 16:28 | Hospitalist Progress Note ---
Date of Service March 17, 2024 Assessment & Plan (1) Acute upper GI bleed: (2) Acute blood loss anemia: Plan: Acute upper GI bleed Hematemesis Acute blood loss anemia Likely secondary to esophagitis, esophageal ulcers --S/P EGD:Moderately severe reflux esophagitis with no bleeding. Esophageal ulcers with no stigmata of recent bleeding. Medium-sized hiatal hernia. Normal examined duodenum. No specimens collected. --CT ABD:Moderate to severe distention of the stomach which is fluid-filled. This is concerning for gastric outlet obstruction. However, no clear transition point identified. Distended and thick-walled gallbladder with pericholecystic i nflammatory change/edema. This is highly suspicious for an acute cholecystitis. Surgical consultation recommended for further evaluation. There is a 12 mm nodular density remaining at the area of consolidation within the right lower lobe seen on the prior study. [address] follow-up recommended to ensure stability/resolution. --S/P 2 units PRBCs --Plavix, Eliquis held --Continue Protonix drip>> Protonix IV twice daily Appreciate GI input Discussed with Dr. Anderson on 03/17/2024: Can resume Plavix, Eliquis after 5 days from endoscopy Monitor H&H and transfuse as needed Needs follow-up with GI on discharge Tolerating GI soft diet Needs follow-up with GI on discharge Will need to continue Protonix 40 mg twice a day indefinitely per GI Plan to discharge to rehab facility as able (3) Acute cholecystitis: Plan: CT abdomen as above Continue cefepime, Flagyl No plan for surgery as per general surgery Appreciate surgery input Conservative management If no improvement, patient may require percutaneous cholecystostomy Clinically improved Surgery following Continue conservative management Transition to p.o. antibiotics a able Rushing catheter associated UTI Chronic Rushing secondary to BPH Urine culture grew Citrobacter Empirically on Rocephin>> changed to cefepime Day #3 changed Rushing catheter Right lower lobe density Also noted on prior CT Will need CT chest in 6 months to ensure stability/resolution Follow-up as outpatient Hyperkalemia Metabolic acidosis Likely secondary to BRUNA Lisinopril held Monitor potassium levels Hyperkalemia, acidosis resolved (4) BRUNA (acute kidney injury): Plan: Creatinine baseline ~ 1.5 Cr back to baseline Lisinopril, Home diuretics on hold Avoid nephrotoxic agents as able Monitor renal function IV fluids discontinued (5) CAD (coronary artery disease): Plan: Continue home medications Plavix held due to GI bleed (6) Hypertension: (7) Dyslipidemia: Plan: On Lipitor (8) DM type 2 (diabetes mellitus, type 2): Plan: HbA1c 7.5 Continue insulin while hospitalized Monitor BGs (9) Chronic ischemic right MCA stroke: Plan: - Hx of such in March 2020 - held Plavix, Eliquis due to GI bleed - Residual cognitive disability noted previously - pt is awake oriented and participates in conversation. DVT Px: Teds, SCDs CODE STATUS: Full code Disposition Case management to help with discharge planning Admission and Anticipated Discharge Date Admission Date: March 13, 2024 Subjective Patient is seen and examined at bedside Reports having some urethral pain at catheter site--ongoing for many weeks Otherwise no complaints Denies any nausea, vomiting, chest pain, dyspnea Discussed with gastroenterology today Review of Systems Review of Systems: All systems reviewed & are unremarkable except as noted in Subjective Physical Exam Physical Exam: Physical Exam: Vitals signs as noted above General Appearance:Thin, no apparent distress Head: normocephalic, Atraumatic Eyes: normal inspection, EOMI Neck: supple, Trachea midline Respiratory/Chest: Normal breath sounds, CTA, No accessory muscle use Cardiovascular: S1, S2, No murmur Abdomen/GI:Soft, non tender, Bowel sounds present, no guarding or rigidity Extremities/Musculoskeletal:normal inspection, no edema Neurologic/Psych:AAOX3, grossly no focal neurological deficits Skin: normal color, warm Results & Data Results & Data Vital Signs (Past 12 Hours) Vital Signs Temp Pulse Resp BP Pulse Ox O2 Del Method 03/17/24 12:38 36.8 C 97 H 20 144/66 H 97 Room Air 03/17/24 08:09 36.8 C 97 H 16 135/79 93 Room Air Laboratory Results Short CBC 03/17/24 Range/Units 05:58 WBC 8.91 (4.8-10.8) K/ul Hgb 9.5 L (14.0-18.0) g/dl Hct 29.6 L (42.0-52.0) % Plt Count 211 (130-400) K/uL BMP 03/17/24 05:58 Sodium 137 Potassium 4.5 Chloride 110 H Carbon Dioxide 21 BUN 19 Creatinine 1.17 Glucose 145 H Calcium 8.6 (6) Hypertension Hypertension type: unspecified Qualified Code(s): I10 - Essential (primary) hypertension
[2024-03-17] MEDS: PANTOprazole 40 MG TAB PO SCH (20:37)
[2024-03-18 07:27] LABS: Hematocrit (blood only) 30.7 % (42.0-52.0); Hemoglobin 9.9 g/dl (14.0-18.0); Mean Corpuscular Hemoglobin 25.5 pg (25.0-34.0); Mean Corpuscular Hgb Conc 32.2 g/dL (32.0-36.0); Mean Corpuscular Volume 79.1 fL (80.0-100.0); Nucleated RBC # (auto) 0.02 K/uL (0.00-0.12); Nucleated RBC % (auto) 0.2 %; Platelet Count 225 K/uL (130-400); Red Blood Count 3.88 M/uL (4.70-6.10); White Blood Count 9.67 K/ul (4.8-10.8)
[2024-03-18 07:50] LABS: Calcium 8.6 mg/dl (8.6-10.3); Creatinine Clr Calc Pharmacy 69.6 ml/min; Est GFR (African American) 85.5 ml/min; Est GFR (Non-African American) 73.8 ml/min; Potassium 4.4 mmol/L (3.5-5.1)
--- NOTE | 2024-03-18 12:41 | Hospitalist Progress Note ---
Date of Service March 18, 2024 Assessment & Plan (1) Acute upper GI bleed: (2) Acute blood loss anemia: Plan: Acute upper GI bleed Hematemesis Acute blood loss anemia Likely secondary to esophagitis, esophageal ulcers --S/P EGD:Moderately severe reflux esophagitis with no bleeding. Esophageal ulcers with no stigmata of recent bleeding. Medium-sized hiatal hernia. Normal examined duodenum. No specimens collected. --CT ABD:Moderate to severe distention of the stomach which is fluid-filled. This is concerning for gastric outlet obstruction. However, no clear transition point identified. Distended and thick-walled gallbladder with pericholecystic i nflammatory change/edema. This is highly suspicious for an acute cholecystitis. Surgical consultation recommended for further evaluation. There is a 12 mm nodular density remaining at the area of consolidation within the right lower lobe seen on the prior study. [address] follow-up recommended to ensure stability/resolution. --S/P 2 units PRBCs --Plavix, Eliquis held --Continue Protonix drip>> Protonix 40mg BID Appreciate GI input Discussed with Dr. Anderson on 03/17/2024: Can resume Plavix, Eliquis after 5 days from endoscopy Monitor H&H and transfuse as needed Needs follow-up with GI on discharge Tolerating GI soft diet Needs follow-up with GI on discharge Will need to continue Protonix 40 mg twice a day indefinitely per GI Plan to discharge to rehab facility today (3) Acute cholecystitis: Plan: CT abdomen as above Continue cefepime, Flagyl No plan for surgery as per general surgery Appreciate surgery input Conservative management If no improvement, patient may require percutaneous cholecystostomy Clinically improved Surgery following Continue conservative management Transition to Cipro, Flagyl for 5 more days to complete the course Rushing catheter associated UTI Chronic Rushing secondary to BPH Urine culture grew Citrobacter Empirically on Rocephin>> changed to cefepime Day #4 changed Rushing catheter Transition to Cipro as above Right lower lobe density Also noted on prior CT Will need CT chest in 6 months to ensure stability/resolution Follow-up as outpatient Hyperkalemia Metabolic acidosis Likely secondary to BRUNA Lisinopril held Monitor potassium levels Hyperkalemia, acidosis resolved (4) BRUNA (acute kidney injury): Plan: Creatinine baseline ~ 1.5 Cr back to baseline Lisinopril, Home diuretics on hold Avoid nephrotoxic agents as able Monitor renal function IV fluids discontinued (5) CAD (coronary artery disease): Plan: Continue home medications Plavix held due to GI bleed (6) Hypertension: (7) Dyslipidemia: Plan: On Lipitor (8) DM type 2 (diabetes mellitus, type 2): Plan: HbA1c 7.5 Continue insulin while hospitalized Monitor BGs (9) Chronic ischemic right MCA stroke: Plan: - Hx of such in March 2020 - held Plavix, Eliquis due to GI bleed - Residual cognitive disability noted previously - pt is awake oriented and participates in conversation. DVT Px: Teds, SCDs CODE STATUS: Full code Disposition Acute rehab Admission and Anticipated Discharge Date Admission Date: March 13, 2024 Subjective Patient is seen and examined at bedside States feeling well today Offers no new complaints Ureteral catheter site pain is controlled Denies any nausea, vomiting, abdominal pain, chest pain, dyspnea Plan to be discharged to rehab facility today Discussed with general surgery today Review of Systems Review of Systems: All systems reviewed & are unremarkable except as noted in Subjective Physical Exam Physical Exam: Physical Exam: Vitals signs as noted above General Appearance:Thin, no apparent distress Head: normocephalic, Atraumatic Eyes: normal inspection, EOMI Neck: supple, Trachea midline Respiratory/Chest: Normal breath sounds, CTA, No accessory muscle use Cardiovascular: S1, S2, No murmur Abdomen/GI:Soft, non tender, Bowel sounds present, no guarding or rigidity Extremities/Musculoskeletal:normal inspection, no edema Neurologic/Psych:AAOX3, grossly no focal neurological deficits Skin: normal color, warm Results & Data Results & Data Vital Signs (Past 12 Hours) Vital Signs Temp Pulse Pulse Resp BP Pulse Ox O2 Del Method 03/18/24 11:30 36.9 C 81 18 141/83 H 97 Room Air 03/18/24 08:00 65 03/18/24 03:40 37.0 C 79 20 144/81 H 98 Room Air Laboratory Results Short CBC 03/18/24 Range/Units 06:07 WBC 9.67 (4.8-10.8) K/ul Hgb 9.9 L (14.0-18.0) g/dl Hct 30.7 L (42.0-52.0) % Plt Count 225 (130-400) K/uL BMP 03/18/24 06:07 Sodium 139 Potassium 4.4 Chloride 111 H Carbon Dioxide 21 BUN 17 Creatinine 1.13 Glucose 164 H Calcium 8.6 (6) Hypertension Hypertension type: unspecified Qualified Code(s): I10 - Essential (primary) hypertension
--- NOTE | 2024-03-18 12:54 | Discharge Summary ---
Date of Service March 18, 2024 Admission HPI Per Admitting Provider This is a 53-year-old male with PMHx of alcohol abuse, tobacco abuse, chronic systolic heart failure, CAD status post stenting and HI in 2013, HTN, HLD, ischemic cardiomyopathy, DM type II, GERD, CKD stage III, history of pulmonary embolism, history of CVA with mild cognitive disability. He reports that he started having abdominal pain yesterday, and that this morning when he woke up had projectile vomiting with diffusely bloody emesis. Pt reports the last time he drank alcohol was about 3 years ago. Reports currently smokes cigarettes. This morning he took eliquis and plavix. Pt has also had several bowel movements today which are dark and tarry. Denies any bright red blood. Last time he ate was possibly Thursday night. He denies any severe abdominal pain at this time, pt has had indigestion. Pt reports having hx of pancreatitis and previously followed with [facility] in [place] where he was instructed to eventually get his gallbladder out, but just hasn't happened yet. His main complaint currently is that he has pain in his urethra and has a catheter in place, states the last change of it was about 3 months ago. He was supposed to have it changed 3days ago but deferred home health nursing to do so because it has been so painful recently. Admission Exam Per Admitting Provider GENERAL APPEARANCE: AxOx3, ill appearing man, black residue from vomitus in johnson, mouth and nares, no acute distress. HEENT: NC, AT. MMM. EOMI, clear conjunctiva NECK: Supple without lymphadenopathy. No stiffness or restricted ROM. HEART: tachycardic, regular LUNGS: CTAB, moving air well. No crackles or wheezes are heard. ABDOMEN: RUQ++ tenderness, surgical scars on right flank from prior "drain placement" per patient , no lower abdominal discomfort EXTREMITIES: Without cyanosis, clubbing or edema. NEUROLOGICAL: Grossly nonfocal. Alert and oriented, moving all 4 extremities. CN not formally tested but appear grossly intact. Skin: general pallor : indwelling giles in place Principal Diagnosis Acute upper gastrointestinal bleeding Acute blood loss anemia Acute cholecystitis Giles catheter associated UTI Right lower lobe density Acute kidney injury Discharge Data Allergies Allergy/AdvReac Type Severity Reaction Status Date / Time No Known Allergies Allergy Verified 03/14/24 11:53 Consultations 03/13/24 15:52 Consult Gastroenterology Routine 03/13/24 17:31 Consult General Surgery Routine 03/13/24 17:54 ED Decision to Admit Stat 03/13/24 18:21 Consult Gastroenterology Routine Consult Manager Hospital Routine 03/13/24 19:54 Consult General Surgery Routine Procedures Performed Operation Date: 03/14/24 16:30 Actual Procedures p Esophagogastroduodenoscopy - Luke G. Case, DO Laboratory Results WBC 9.67 K/ul (4.8-10.8) 03/18/24 06:07 RBC 3.88 M/uL (4.70-6.10) L 03/18/24 06:07 Hgb 9.9 g/dl (14.0-18.0) L 03/18/24 06:07 POC Hgb 8.2 g/dl (14.0-18.0) L 03/13/24 15:26 Hct 30.7 % (42.0-52.0) L 03/18/24 06:07 POC Hct 24 % (42-52) L 03/13/24 15:26 MCV 79.1 fL (80.0-100.0) L 03/18/24 06:07 MCH 25.5 pg (25.0-34.0) 03/18/24 06:07 MCHC 32.2 g/dL (32.0-36.0) 03/18/24 06:07 RDW Std Deviation 52.0 fL (36.4-46.3) H 03/18/24 06:07 RDW Coeff of Dione 18.0 % (11.5-14.5) H 03/18/24 06:07 Plt Count 225 K/uL (130-400) 03/18/24 06:07 MPV 10.0 fL (9.4-12.4) 03/18/24 06:07 Immature Gran % (Auto) 0.9 % 03/13/24 22:46 Neut % (Auto) 89.3 % 03/13/24 22:46 Lymph % (Auto) 4.8 % 03/13/24 22:46 [place] % (Auto) 4.6 % 03/13/24 22:46 Eos % (Auto) 0.1 % 03/13/24 22:46 Baso % (Auto) 0.3 % 03/13/24 22:46 Neut # (Auto) 20.06 K/uL (1.40-6.50) H 03/13/24 22:46 Lymph # (Auto) 1.07 K/uL (1.20-3.40) L 03/13/24 22:46 [place] # (Auto) 1.04 K/uL (0.11-0.59) H 03/13/24 22:46 Eos # (Auto) 0.03 K/uL (0.00-0.50) 03/13/24 22:46 Baso # (Auto) 0.06 K/uL (0.00-0.20) 03/13/24 22:46 Immature Gran # (Auto) 0.21 K/uL (0.01-0.20) H 03/13/24 22:46 Absolute Nucleated RBC 0.02 K/uL (0.00-0.12) 03/18/24 06:07 Nucleated RBC % (auto) 0.2 % 03/18/24 06:07 Hypochromasia Present 03/13/24 15:18 PT 11.4 Seconds (9.0-12.0) 03/13/24 20:58 INR 1.0 (0.9-1.1) 03/13/24 20:58 POC Sodium 137 mmol/L (135-144) 03/13/24 15:26 Sodium 139 mmol/L (136-145) 03/18/24 06:07 POC Potassium 5.9 mmol/L (3.3-5.0) H 03/13/24 15:26 Potassium 4.4 mmol/L (3.5-5.1) 03/18/24 06:07 POC Chloride 112 mmol/L (101-112) 03/13/24 15:26 Chloride 111 mmol/L (98-107) H 03/18/24 06:07 Carbon Dioxide 21 mmol/L (21-32) 03/18/24 06:07 POC Total CO2 16 mmol/L (24-31) L 03/13/24 15:26 Anion Gap 7 (3-11) 03/18/24 06:07 POC Anion Gap 16.0 mmol/L (16-25) 03/13/24 15:26 POC BUN 98 mg/dl (7-18) H 03/13/24 15:26 BUN 17 mg/dl (6-23) 03/18/24 06:07 Creatinine 1.13 mg/dl (0.6-1.4) 03/18/24 06:07 POC Creatinine 4.1 mg/dl (0.6-1.3) H 03/13/24 15:26 Est Cr Clr Drug Dosing 69.6 ml/min 03/18/24 06:07 Est GFR ( Amer) 85.5 ml/min 03/18/24 06:07 Est GFR (Non-Af Amer) 73.8 ml/min 03/18/24 06:07 BUN/Creatinine Ratio 15.0 (10-20) 03/18/24 06:07 Glucose 164 mg/dl (70-99(Fasting)) H 03/18/24 06:07 POC Glucose 172 mg/dl (70-99) H 03/18/24 11:15 POC Glucose (other) 299 mg/dl (70-99) H 03/13/24 15:26 Estimat Average Glucose 169 mg/dl 03/15/24 03:54 Hemoglobin A1c 7.5 % (4.5-5.6) H 03/15/24 03:54 Hgb A1c Pathologist Com 03/15/24 03:54 Lactate 1.7 mmol/L (0.4-2.0) 03/13/24 20:58 Calcium 8.6 mg/dl (8.6-10.3) 03/18/24 06:07 POC Ioniz Calcium Juan 1.32 mmol/l (1.12-1.32) 03/13/24 15:26 Phosphorus 2.5 mg/dl (2.5-4.9) 03/13/24 20:58 Magnesium 1.8 mg/dl (1.7-2.4) 03/17/24 05:58 Total Bilirubin 0.7 mg/dl (0.2-1.0) 03/14/24 03:21 AST 16 U/L (13-39) 03/14/24 03:21 ALT 17 U/L (7-52) 03/14/24 03:21 Alkaline Phosphatase 72 U/L (34-104) 03/14/24 03:21 Troponin I High Sens 18.7 pg/ml (0-20) 03/13/24 15:18 Total Protein 6.1 gm/dl (6.0-8.3) 03/14/24 03:21 Albumin 3.2 gm/dl (3.4-5.0) L 03/14/24 03:21 Globulin 2.9 gm/dl (2.5-4.0) 03/14/24 03:21 Albumin/Globulin Ratio 1.1 (0.9-2) 03/14/24 03:21 Lipase 58 U/L (11-82) 03/13/24 15:18 Urine Color Yellow 03/13/24 16:50 Urine Appearance Cloudy (Clear) A 03/13/24 16:50 Urine pH 5.5 (4.5-7.5) 03/13/24 16:50 Ur Specific [place] 1.013 (1.000-1.030) 03/13/24 16:50 Urine Protein Trace (Negative) H 03/13/24 16:50 Urine Glucose (UA) 3+ (Negative) H 03/13/24 16:50 Urine Ketones Negative (Negative) 03/13/24 16:50 Urine Blood 1+ (Negative) H 03/13/24 16:50 Urine Nitrite Negative (Negative) 03/13/24 16:50 Urine Bilirubin Negative (Negative) 03/13/24 16:50 Urine Urobilinogen Negative (Negative) 03/13/24 16:50 Ur Leukocyte Esterase 2+ (Negative) H 03/13/24 16:50 Urine WBC (Auto) 11-20 /hpf (0-5) H 03/13/24 16:50 Urine RBC (Auto) 3-5 /hpf (0-2) H 03/13/24 16:50 U Hyaline Cast (Auto) 3-5 /lpf (0-2) H 03/13/24 16:50 U Epithel Cells (Auto) 0-2 /hpf (0-2) 03/13/24 16:50 Urine Bacteria (Auto) 1+ (None Seen) H 03/13/24 16:50 Urine Sperm Present (None Prsent) A 03/13/24 16:50 Nasal Screen MRSA (PCR) Negative (Negative) 03/13/24 Unknown Blood Type O Positive 03/13/24 15:18 Blood Type Recheck O Positive 04/28/24 15:20 Antibody Screen NEGATIVE 03/13/24 15:18 Crossmatch See Detail 03/13/24 15:18 Impressions Chest X-Ray 03/13/24 15:16 XR chest 1V portable HISTORY: Hematemesis COMPARISON: Chest 09/15/2023. FINDINGS: There are low lung volumes. No pneumothorax. No pleural effusions. No focal lung consolidations to suggest a pneumonia. No evidence for pulmonary edema. The cardiac silhouette is borderline enlarged. There are calcifications within the aortic knob. No acute fractures. A few bibasilar densities favor subsegmental atelectasis or scarring. IMPRESSION: No acute process. ACT 112: Negative or not required by law. Electronically signed by: Servando Batres M.D. 03/13/2024 4:31 PM Abdomen/Pelvis CT 03/13/24 15:[address] WITHOUT CONTRAST CT DOSE: 845.31 mGy.cm HISTORY: Hematemesis TECHNIQUE: Multiaxial CT images of the abdomen and pelvis were performed without contrast. A dose lowering technique was utilized adhering to the principles of ALARA. COMPARISON STUDY: Abdomen and pelvis CT 10/09/2023. FINDINGS: The bilateral lower lobe wedge-shaped densities have improved. However, there is a residual 12 mm nodule within the right lower lobe with the prior consolidation. No pneumoperitoneum. No pneumatosis. No acute fractures identified. Moderate to severe distention of the stomach which is fluid-filled. This could represent a gastric outlet obstruction. However, no definite transition point as the proximal duodenum is also slightly distended and fluid- filled. The unenhanced liver, spleen, adrenal glands, and pancreas are unremarkable. Vascular calcifications noted within the renal sinuses. No definite renal or ureteral calculi. No hydronephrosis. The gallbladder is distended and thick-walled with surrounding pericholecystic edema/inflammatory change. This is high suspicious for an acute cholecystitis. Calcified plaque within the normal caliber abdominal aorta. No retroperitoneal or pelvic lymphadenopathy. Small fat-containing bilateral inguinal hernias. The bladder is decompressed by Giles catheter which appears in good position. Bladder wall thickening has improved. The colon is decompressed. Normal appendix. No bowel wall thickening. No evidence for a small bowel obstruction. IMPRESSION: 1. Moderate to severe distention of the stomach which is fluid-filled. This is concerning for gastric outlet obstruction. However, no clear transition point identified. 2. Distended and thick-walled gallbladder with pericholecystic inflammatory change/edema. This is highly suspicious for an acute cholecystitis. Surgical consultation recommended for further evaluation. 3. There is a 12 mm nodular density remaining at the area of consolidation within the right lower lobe seen on the prior study. [address] follow-up recommended to ensure stability/resolution. ACT 112: Negative or not required by law. Electronically signed by: Servando Batres M.D. 03/13/2024 5:08 PM Ordered Studies 03/13/24 15:17 CT abd pelvis wo con Stat Hospital Course (1) Acute upper GI bleed: (2) Acute blood loss anemia: Acute upper GI bleed Hematemesis Acute blood loss anemia Likely secondary to esophagitis, esophageal ulcers --S/P EGD:Moderately severe reflux esophagitis with no bleeding. Esophageal ulcers with no stigmata of recent bleeding. Medium-sized hiatal hernia. Normal examined duodenum. No specimens collected. --CT ABD:Moderate to severe distention of the stomach which is fluid-filled. This is concerning for gastric outlet obstruction. However, no clear transition point identified. Distended and thick-walled gallbladder with pericholecystic inflammatory change/edema. This is highly suspicious for an acute cholecystitis. Surgical consultation recommended for further evaluation. There is a 12 mm nodular density remaining at the area of consolidation within the right lower lobe seen on the prior study. [address] follow-up recommended to ensure stability/resolution. --S/P 2 units PRBCs --Plavix, Eliquis held --Continue Protonix drip>> Protonix IV twice daily Appreciate GI input Discussed with Dr. Anderson on 03/17/2024: Can resume Plavix, Eliquis after 5 days from endoscopy Monitor H&H and transfuse as needed Needs follow-up with GI on discharge Tolerating GI soft diet Needs follow-up with GI on discharge Will need to continue Protonix 40 mg twice a day indefinitely per GI Plan to discharge to rehab facility as able (3) Acute cholecystitis: CT abdomen as above Continue cefepime, Flagyl No plan for surgery as per general surgery Appreciate surgery input Conservative management If no improvement, patient may require percutaneous cholecystostomy Clinically improved Surgery following Continue conservative management Transition to p.o. antibiotics a able Giles catheter associated UTI Chronic Giles secondary to BPH Urine culture grew Citrobacter Empirically on Rocephin>> changed to cefepime Day #3 changed Giles catheter Right lower lobe density Also noted on prior CT Will need CT chest in 6 months to ensure stability/resolution Follow-up as outpatient Hyperkalemia Metabolic acidosis Likely secondary to BRUNA Lisinopril held Monitor potassium levels Hyperkalemia, acidosis resolved (4) BRUNA (acute kidney injury): Creatinine baseline ~ 1.5 Cr back to baseline Lisinopril, Home diuretics on hold Avoid nephrotoxic agents as able Monitor renal function IV fluids discontinued (5) CAD (coronary artery disease): Continue home medications Plavix held due to GI bleed (6) Hypertension: (7) Dyslipidemia: On Lipitor (8) DM type 2 (diabetes mellitus, type 2): HbA1c 7.5 Continue insulin while hospitalized Monitor BGs (9) Chronic ischemic right MCA stroke: - Hx of such in March 2020 - held Plavix, Eliquis due to GI bleed - Residual cognitive disability noted previously - pt is awake oriented and participates in conversation. DVT Px: Teds, SCDs CODE STATUS: Full code Disposition Case management to help with discharge planning Total Time Total Time Spent Total Time Spent (In Minutes): 65 minutes Discharge Plan Discharge Items Patient Disposition: Transfer Inpatient Rehab Fac Reason For Visit: GI BLEED, ACUTE REINALDO Discharge Diagnosis: Acute upper gastrointestinal bleeding Acute blood loss anemia Acute cholecystitis Giles catheter associated UTI Right lower lobe density Acute kidney injury Activity: Per Instructions section Exercise/Sports: Gradually increase as tolerated Non-emergency contact: Primary Care Provider, Surgeon and Mask Layout Designer Call non-emergency contact if: you have any medication questions, your symptoms worsen, your pain is concerning for you and you have a fever Follow-up/Referrals: Kimberly Bagley CRNP [Nurse Practitioner] - Pedro Pablo Gaspar MD [Primary Care Provider] - Diet: Carb Consistent or DM2 Diet Texture: Dental soft (bite-sized) Addtl Attending Provider Instructions: Follow-up with the primary care physician Dr. Gaspar in 1 week upon discharge from rehab facility Follow-up with your photovoltaic installation technician Dr. Anderson in 4 to 6 weeks. You may need a repeat endoscopy. Follow-up with your surgeon Dr. Ruano as needed -- Complete the antibiotic course ciprofloxacin, Flagyl as prescribed for 5 more days Your final blood cultures are pending at the time of discharge. Follow-up with your physician for results. Seek immediate medical attention if your symptoms reoccur or worsen Please take all medications as instructed on discharge list below. Please call if you have any questions or problems. You can reach a [place] hospitalist on duty at [facility] 24 hours a day by calling [phone] Pending Studies at Discharge: Yes Studies:: Blood cultures Stand-Alone Forms: My [facility] Skilled Items Patient informed of condition?: Yes DNR: No Discharge Level of Care: Acute rehab Communicable Disease: No Discharge Prognosis: Stable Lines: None Urinary Catheter: Yes Medications and DC Order Prescriptions: New pantoprazole 40 mg Tablet,Delayed Release (Dr/Ec) 40 mg PO BID Qty: 0 0RF oxycodone 5 mg Tablet 5 mg PO Q4H PRNQty: 0 0RF lidocaine 5 % Ointment 1 applic EXT TID PRN (Reason: pain) Qty: 30 0RF phenazopyridine [Pyridium] 200 mg Tablet 200 mg PO TID PRNQty: 0 0RF metronidazole 500 mg Tablet 500 mg PO Q8H Qty: 15 0RF ciprofloxacin HCl 500 mg Tablet 500 mg PO BID Qty: 10 0RF Continued sertraline 25 mg tablet 25 mg PO QAM lorazepam 0.5 mg tablet 0.5 mg PO Q6H PRN (Reason: Anxiety) metformin 500 mg tablet extended release 24 hr 1,000 mg PO QAM (DME) FreeStyle Yulissa 2 Sensor Kit See Rx Instructions .ROUTE .MEDSUPPLY Qty: 1 Rx Instructions: As directed oxybutynin chloride 10 mg tablet extended release 24hr 10 mg PO DAILY Qty: 30 2RF tamsulosin 0.4 mg Capsule 0.4 mg PO HS Qty: 30 0RF ropinirole 0.25 mg Tablet 0.25 mg PO HS Qty: 30 0RF metoprolol succinate 50 mg Tablet Extended Release 24 Hr 25 mg PO BID Qty: 30 0RF atorvastatin 20 mg tablet 20 mg PO QAM Hold Instructions: Resume on 10/14/23. mirtazapine 30 mg Tablet 30 mg PO HS furosemide 20 mg Tablet 10 mg PO QAM Rx Instructions: PER MADDISON Jardiance 10 mg Tablet 10 mg PO QAM Held Eliquis 5 mg tablet 5 mg PO Q12H Hold Instructions: Can resume on 03/21/24 as per your photovoltaic installation technician clopidogrel [Plavix] 75 mg Tablet 75 mg PO QAM Hold Instructions: Can resume on 03/21/24 as per your photovoltaic installation technician spironolactone 25 mg Tablet 25 mg PO QAM Qty: 30 0RF Hold Instructions: Until further recommendations from your physician lisinopril 10 mg Tablet 10 mg PO BID Qty: 30 0RF Hold Instructions: Until further recommendations from a physician Discontinued omeprazole 40 mg capsule,delayed release(DR/EC) 40 mg PO DAILYBB Hold Instructions: Resume on 10/09/23. Discharge Orders: Discharge Order (Routine); Ordered 03/18/24 Ordered By: Daniel Velazquez/Other Patient Handouts: Managing Type 2 Diabetes Admission Data Admit Date/Time: 03/13/24 18:21 Attending Provider: Daniel Ceballos Admit Provider: Aissatou Jansen Primary Care Provider: Pedro Pablo Gaspar Other Providers: Leo Monterroso Jr; Jefry Ruano; [facility]; Aissatou Jansen; Eyad Huff
[2024-03-18] MEDS ORDERED: metroNIDAZOLE 500 MG TAB PO SCH (18:00)
[2024-03-18] MEDS ORDERED: CIPROFLOXACIN 500 MG TAB PO SCH (21:00)
--- NOTE | 2024-03-20 19:50 | Coding Query ---
SEPSIS To promote full compliance with coding requirements relating to patient care, physician participation is requested in all cases of press washer uncertainty. Please assist us with the question(s) below: In responding to this query, please exercise your independent professional judgement. The fact that a question is asked does not imply that any particular answer is desired or expected. We appreciate your clarification on this issue. Throughout the medical record, you have clearly documented a localized infection and your patient has clinical evidence of a generalized sepsis or severe sepsis. The term urosepsis is a nonspecific entity and is coded as an UTI. If the patient has sepsis, severe sepsis, from an urinary source or some other source, please clarify in your response below. The medical record reflects the following clinical findings: Cholecystitis, cirrhosis, sepsis - small amount of ascites noted - Meets SIRS criteria and source- sepsis can't be excluded- however hemodynamics likely secondary to acute blood loss - Continue broad spectrum antibiotics - blood and urine cultures pending ____ ()Bacteremia (Nonspecific laboratory finding of bacteria in the blood) Specify Organism () Present on Admission (x) Not present on admission () Unable to clinically determine () Septicemia (Systemic disease associated with the presence of pathogenic microorganisms in the blood): Specify Organism () Present on Admission (x) Not present on admission () Unable to clinically determine () Sepsis Specify Organism Specify Associated Condition/Diagnosis () Present on Admission () Not present on admission () Unable to clinically determine () Severe Sepsis (Sepsis associated with acute organ dysfunction) Specify Organism Specify Associated Condition/Diagnosis (x ) Present on Admission () Not present on admission () Unable to clinically determine () Septic Shock (Severe sepsis with acute circulatory failure, unexplained by other causes) () Present on Admission () Not present on admission () Unable to clinically determine () Other, patient has: MTDD
== END 2024-03-18 13:24 | DRG 871 ==
LOC: ED 15:09 → 1E 18:21 → SUATTDRO 18:21 → 1E 19:23 → 2E 03-15 18:24

== ENCOUNTER 2024-04-25 12:09 | Inpatient (IN) ==
[2024-04-25 13:29] LABS: Base Excess VBG -3.8 mEq/L; HCO3 VBG 22 mmol/L; Oxygen Saturation VBG < 60.0 %; PCO2 VBG 39 mmHg (38-50); PO2 VBG 22 mmHg; pH VBG 7.35 (7.36-7.41)
--- NOTE | 2024-04-25 13:29 | Emergency Department Note ---
Impression & Plan Sepsis, UTI (urinary tract infection), Hypotension ED Provider Note NAME: EDNA TAYLOR AGE: 53 SEX: M : 1970 ARRIVES VIA: Ambulance INFORMANT: Patient, ED PROVIDER(S): Tal Forrester MD CHIEF COMPLAINT: Bleeding catheter HPI: This is a 53-year-old male with a significant history including type 2 diabetes, hypertension, CAD, CKD, ischemic cardiomyopathy, previous PE, CHF presenting for blood in the catheter. Patient had bleeding over the weekend. 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 He was bleeding through the weekend and home health nurse removed the catheter. He came because he was still having blood around his urethra, pain. He thinks states blood thinners but is not sure. Otherwise he states he feels weak. ROS: See above HPI for pertinent positives & negatives. A total of 10 systems reviewed and were otherwise negative. PHYSICAL EXAMINATION: General: Chronic ill-appearing, pale Head: Normocephalic and atraumatic Eyes: Normal inspection, extraocular muscles intact Ear, nose, throat: Normal external exam Neck: Normal range of motion Respiratory: lungs clear to auscultation bilaterally Cardiovascular: Regular rate/rhythm, no murmur GI: soft, nontender, no guarding or rebound, blood at urethral meatus, dried blood on scrotum Extremities: nontender, moves all extremities Neuro: The patient awake and alert, appropriately conversive, no focal deficits, symmetric faces Skin: Warm, dry, and intact MEDICAL DECISION MAKING: This is a 53-year-old male presenting for hematuria. Patient is currently hypotensive into the 70s over 50s systolic. He appears pale, fatigued and is tachycardic. Based on patient's history of Rushing dependence, blood, consider cystitis/sepsis versus blood loss anemia. Will reinsert Rushing, check urinalysis. At this time patient does have dried blood at the meatus, concerning for bladder outlet obstruction. Otherwise we will give 1 L with frequent reevaluation the patient is having significant CHF in the past. Will give empiric ceftriaxone. -After 1 L, patient has improvement in blood pressures into the 80s and then 110s systolic. Will stop here as patient does have history of presenting CHF -Otherwise patient blood work is significant abnormal with a leukocytosis 16.77 consistent with his sepsis. Anemia to 8.5 worse than his baseline. Otherwise VBG showing 7.35/39. Creatinine is up at 2.61, worsened his previous baseline resulting in BRUNA. Urinalysis reveals signs of blood as well as infection as likely source. -Patient be admitted for continued treatment of likely urosepsis. Admitted under the care of Dr. Jansen. Differential diagnosis: Blood loss anemia, sepsis, UTI, pyelonephritis, dehydration ER treatment provided: See below Diagnostics interpreted by me: ECG: ECG independently interpreted by me with normal sinus rhythm, rate of 115, normal DC, normal QRS, normal QTc, no ST segment elevations consistent with STEMI criteria, ST depression/T wave versions in leads I and aVL, stable from previous Cardiac Monitoring: An order was placed for continuous cardiac monitoring. The monitor shows a rate of 93 with sinus rhythm. Laboratory studies: As stated above and show below. Imaging studies: See below. Critical Care Note: I have personally spent 62 minutes of critical care time in the direct management of this patient. This includes bedside care, interpretation of diagnostic studies, and testing, discussion with consultants, patient, and family members, and other required patient management activities. This 62 minutes is in excess of all separately billable procedures. Past Med/Surg History Problem List (Updated 04/25/24 @ 17:04 by Tal Forrester MD) Hypotension (Acute) UTI (urinary tract infection) (Acute) Sepsis (Acute) Ulcer, esophagus Acute blood loss anemia Acute cholecystitis Acute upper GI bleed Encounter for pre-operative examination BPH loc w urin obs/LUTS Pancreatic pseudocyst Gastric perforation Abnormal CT of the abdomen Tachycardia (Acute) Constipation (Acute) Acute urinary retention (Acute) BRUNA (acute kidney injury) (Acute) Lower abdominal pain (Acute) LV (left ventricular) mural thrombus Noted on 09/17/23 ECHO- currently on Eliquis Pulmonary infarct Pneumonia Acute urinary retention BRUNA (acute kidney injury) Prolonged QT interval Acute systolic CHF (congestive heart failure) Elevated LFTs Hypoxia Acute CHF Pulmonary embolism Elevated troponin (Acute) H/O: CVA (cerebrovascular accident) (Acute) Abnormal MRI of head MRI 06/15/20 showed MCA infarcts as well as ring enhancement right posterior lobe. Repeat MRI recommended in 3 months. Stenosis of right internal carotid artery with cerebral infarction Chronic ischemic right MCA stroke Ischemic cardiomyopathy EF=20-25% 09/2023 CKD (chronic kidney disease), stage III Hx of endarterectomy (06/28/20) Right Carotid Endarterectomy with Bovine Patch Angioplasty Dr. Arita 06/28/2020 Dyslipidemia Depression CAD (coronary artery disease) (~2013) 2013 - NSTEMI s/p BRUCE to RCA Cardiac cath 09/22/23 ([facility])- no stents or bypass (did show three vessel CAD) DM type 2 (diabetes mellitus, type 2) Hgb A1C 12.4 Only on Metformin as of 01/19/24 Hypertension (Chronic) Carotid stenosis, bilateral s/ right CEA (2019) Medical History Rushing catheter in place Enlarged prostate Hx pulmonary embolism 09/08/23- bilateral PEs History of suicidal ideation (~2020) voluntary admission [facility] Hx of congestive heart failure (~10/2023) [facility] Hx of pancreatitis LV (left ventricular) mural thrombus Noted on 09/17/23 ECHO- currently on Eliquis CKD (chronic kidney disease), stage III Ischemic cardiomyopathy EF=20-25% 09/2023 Dyslipidemia Depression CAD (coronary artery disease) (~2013) 2013 - NSTEMI s/p BRUCE to RCA Cardiac cath 09/22/23 ([facility])- no stents or bypass (did show three vessel CAD) DM type 2 (diabetes mellitus, type 2) Hgb A1C 12.4 Only on Metformin as of 01/19/24 History of cerebrovascular accident (~2019) x5 "multiple mini strokes" [facility], no current neurologist, left arm "almost useless" and left side "doesn't work quite right" Most recent CVA 2020 per records Carotid stenosis, bilateral s/ right CEA (2019) Hypertension Surgical History Hx of cardiac catheterization (~09/2023) [facility], no stents Hx of endarterectomy (06/28/20) Right Carotid Endarterectomy with Bovine Patch Angioplasty Dr. Arita 06/28/2020 S/P drug eluting coronary stent placement (~2013) [facility], currently follows at [facility] Family History Mother , age 68 from metastatic lung cancer Lung cancer Father No problems noted. 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 Feels Safe at Home: Yes Assistive Devices: Walker Allergies Allergies Allergy/AdvReac Type Severity Reaction Status Date / Time No Known Allergies Allergy Verified 04/25/24 16:14 Home Meds Home Medications Medication Instructions Recorded Confirmed clopidogrel 75 mg tablet (Plavix) 75 mg PO QAM 06/05/21 04/25/24 atorvastatin 20 mg tablet 20 mg PO QAM 09/08/23 04/25/24 apixaban 5 mg tablet (Eliquis) 5 mg PO Q12H 10/08/23 04/25/24 flash glucose sensor (FreeStyle #1 ea 01/01/24 04/25/24 Yulissa 2 Sensor kit) lorazepam 0.5 mg tablet 0.5 mg PO BID PRN Anxiety 01/01/24 04/25/24 metformin 500 mg tablet,extended 1,000 mg PO QAM 01/01/24 04/25/24 release 24 hr sertraline 25 mg tablet 25 mg PO QAM 01/01/24 04/25/24 mirtazapine 30 mg tablet 30 mg PO HS 01/11/24 04/25/24 empagliflozin 10 mg tablet 10 mg PO QAM 01/19/24 04/25/24 (Jardiance) ondansetron HCl 4 mg tablet 4 mg PO Q8 PRN Nausea 04/25/24 04/25/24 oxycodone 5 mg tablet 5 mg PO Q8 PRN Severe Pain (Scale 04/25/24 04/25/24 Score 7-10) pantoprazole 40 mg tablet,delayed 40 mg PO QAM 04/25/24 04/25/24 release Previous Rx's Medication Instructions Recorded lisinopril 10 mg tablet 10 mg PO BID #30 tabs 11/08/23 spironolactone 25 mg tablet 25 mg PO QAM #30 tabs 09/23/23 tamsulosin 0.4 mg capsule 0.4 mg PO HS #30 caps 10/09/23 metoprolol succinate 50 mg 25 mg (1/2 x 50 mg) PO BID #30 tabs 10/12/23 tablet,extended release 24 hr ropinirole 0.25 mg tablet 0.25 mg PO HS #30 tabs 10/12/23 Results & Data (ED) Vital Signs Vital Signs - 24 hr 04/25/24 12:20 04/25/24 13:00 04/25/24 13:02 Temperature 36.5 C Temperature Source Temporal Artery Scan Pulse Rate 108 H 104 H Pulse Rate from SpO2 Sensor Pulse Rhythm Regular Respiratory Rate 20 Respiratory Effort / Characteristics Non-Labored Spontaneous Respiratory Depth Normal Blood Pressure 96/63 L 80/56 L Blood Pressure [Left Arm] Blood Pressure Mean 74 66 Blood Pressure Mean [Left Arm] Pulse Oximetry 97 Oxygen Delivery Method Room Air Sepsis Recent Fever Within 48 Hours No Sepsis New/Unexplained Change in Mental Status No Sepsis Action Taken by Nursing No Action Required 04/25/24 13:14 04/25/24 13:16 04/25/24 13:35 Temperature Temperature Source Pulse Rate 97 H 90 Pulse Rate from SpO2 Sensor 97 H 89 Pulse Rhythm Respiratory Rate 24 19 Respiratory Effort / Characteristics Respiratory Depth Blood Pressure 84/65 L Blood Pressure [Left Arm] Blood Pressure Mean 74 Blood Pressure Mean [Left Arm] Pulse Oximetry 97 95 Oxygen Delivery Method Sepsis Recent Fever Within 48 Hours Sepsis New/Unexplained Change in Mental Status Sepsis Action Taken by Nursing 04/25/24 14:05 04/25/24 15:00 04/25/24 15:35 Temperature Temperature Source Pulse Rate 96 H 89 Pulse Rate from SpO2 Sensor Pulse Rhythm Respiratory Rate 19 18 Respiratory Effort / Characteristics Respiratory Depth Blood Pressure 93/69 L Blood Pressure [Left Arm] 115/80 Blood Pressure Mean 78 Blood Pressure Mean [Left Arm] 91 Pulse Oximetry Oxygen Delivery Method Sepsis Recent Fever Within 48 Hours Sepsis New/Unexplained Change in Mental Status Sepsis Action Taken by Nursing 04/25/24 16:05 Temperature Temperature Source Pulse Rate 93 H Pulse Rate from SpO2 Sensor Pulse Rhythm Respiratory Rate 28 H Respiratory Effort / Characteristics Respiratory Depth Blood Pressure Blood Pressure [Left Arm] Blood Pressure Mean Blood Pressure Mean [Left Arm] Pulse Oximetry Oxygen Delivery Method Sepsis Recent Fever Within 48 Hours Sepsis New/Unexplained Change in Mental Status Sepsis Action Taken by Nursing Laboratory Data 04/25/24 14:02 04/25/24 14:02 Lab Results 04/25/24 04/25/24 04/25/24 Range/Units 13:03 13:08 13:10 WBC (4.8-10.8) K/ul RBC (4.70-6.10) M/uL Hgb (14.0-18.0) g/dl Hct (42.0-52.0) % MCV (80.0-100.0) fL MCH (25.0-34.0) pg MCHC (32.0-36.0) g/dL RDW Std Deviation (36.4-46.3) fL RDW Coeff of Dione (11.5-14.5) % Plt Count (130-400) K/uL MPV (9.4-12.4) fL Immature Gran % (Auto) % Neut % (Auto) % Lymph % (Auto) % [place] % (Auto) % Eos % (Auto) % Baso % (Auto) % Neut # (Auto) (1.40-6.50) K/uL Lymph # (Auto) (1.20-3.40) K/uL [place] # (Auto) (0.11-0.59) K/uL Eos # (Auto) (0.00-0.50) K/uL Baso # (Auto) (0.00-0.20) K/uL Immature Gran # (Auto) (0.01-0.20) K/uL PT (9.0-12.0) Seconds INR (0.9-1.1) VBG pH 7.35 L (7.36-7.41) VBG pCO2 39 (38-50) mmHg VBG pO2 22 mmHg VBG HCO3 22 mmol/L VBG O2 Saturation < 60.0 % VBG Base Excess -3.8 mEq/L Sodium (136-145) mmol/L Potassium (3.5-5.1) mmol/L Chloride (98-107) mmol/L Carbon Dioxide (21-32) mmol/L Anion Gap (3-11) BUN (6-23) mg/dl Creatinine (0.6-1.4) mg/dl Est Cr Clr Drug Dosing ml/min Est GFR ( Amer) ml/min Est GFR (Non-Af Amer) ml/min BUN/Creatinine Ratio (10-20) Glucose (70-99(Fasting)) mg/dl Lactate 1.9 (0.4-2.0) mmol/L Calcium (8.6-10.3) mg/dl Urine Color Urine Appearance (Clear) Urine pH (4.5-7.5) Ur Specific [place] (1.000-1.030) Urine Protein (Negative) Urine Glucose (UA) (Negative) Urine Ketones (Negative) Urine Blood (Negative) Urine Nitrite (Negative) Urine Bilirubin (Negative) Urine Urobilinogen (Negative) Ur Leukocyte Esterase (Negative) Urine WBC (Auto) (0-5) /hpf Urine RBC (Auto) (0-2) /hpf U Hyaline Cast (Auto) (0-2) /lpf U Epithel Cells (Auto) (0-2) /hpf Urine Bacteria (Auto) (None Seen) Blood Type O Positive Antibody Screen NEGATIVE 04/25/24 04/25/24 Range/Units 14:02 Unknown WBC 16.77 H (4.8-10.8) K/ul RBC 3.67 L (4.70-6.10) M/uL Hgb 8.5 L (14.0-18.0) g/dl Hct 27.0 L (42.0-52.0) % MCV 73.6 L (80.0-100.0) fL MCH 23.2 L (25.0-34.0) pg MCHC 31.5 L (32.0-36.0) g/dL RDW Std Deviation 46.6 H (36.4-46.3) fL RDW Coeff of Dione 17.5 H (11.5-14.5) % Plt Count 291 (130-400) K/uL MPV 10.4 (9.4-12.4) fL Immature Gran % (Auto) 0.9 % Neut % (Auto) 82.0 % Lymph % (Auto) 11.0 % [place] % (Auto) 5.4 % Eos % (Auto) 0.4 % Baso % (Auto) 0.3 % Neut # (Auto) 13.76 H (1.40-6.50) K/uL Lymph # (Auto) 1.84 (1.20-3.40) K/uL [place] # (Auto) 0.91 H (0.11-0.59) K/uL Eos # (Auto) 0.06 (0.00-0.50) K/uL Baso # (Auto) 0.05 (0.00-0.20) K/uL Immature Gran # (Auto) 0.15 (0.01-0.20) K/uL PT 12.0 (9.0-12.0) Seconds INR 1.1 (0.9-1.1) VBG pH (7.36-7.41) VBG pCO2 (38-50) mmHg VBG pO2 mmHg VBG HCO3 mmol/L VBG O2 Saturation % VBG Base Excess mEq/L Sodium 135 L (136-145) mmol/L Potassium 5.0 (3.5-5.1) mmol/L Chloride 107 (98-107) mmol/L Carbon Dioxide 23 (21-32) mmol/L Anion Gap 5 (3-11) BUN 42 H (6-23) mg/dl Creatinine 2.61 H (0.6-1.4) mg/dl Est Cr Clr Drug Dosing 28.5 ml/min Est GFR ( Amer) 31.1 ml/min Est GFR (Non-Af Amer) 26.8 ml/min BUN/Creatinine Ratio 16.1 (10-20) Glucose 143 H (70-99(Fasting)) mg/dl Lactate (0.4-2.0) mmol/L Calcium 9.0 (8.6-10.3) mg/dl Urine Color Yellow Urine Appearance Clear (Clear) Urine pH 6.5 (4.5-7.5) Ur Specific [place] 1.013 (1.000-1.030) Urine Protein 1+ H (Negative) Urine Glucose (UA) 3+ H (Negative) Urine Ketones Negative (Negative) Urine Blood 3+ H (Negative) Urine Nitrite Negative (Negative) Urine Bilirubin Negative (Negative) Urine Urobilinogen Negative (Negative) Ur Leukocyte Esterase 1+ H (Negative) Urine WBC (Auto) 21-50 H (0-5) /hpf Urine RBC (Auto) >20 H (0-2) /hpf U Hyaline Cast (Auto) 0-2 (0-2) /lpf U Epithel Cells (Auto) 0-2 (0-2) /hpf Urine Bacteria (Auto) None Seen (None Seen) Blood Type Antibody Screen Administered Medications Discontinued Medications Ceftriaxone Sodium (Rocephin) 2,000 mg in 50 mls @ 100 mls/hr IV NOW STA Stop: 04/25/24 13:52 Last Infusion: 04/25/24 14:39 Dose: Infused Documented By: Admin: 04/25/24 14:04 Dose: 100 mls/hr Documented By: HS Sodium Chloride (Nss) 1,000 mls @ 999 mls/hr IV .Q1H1M YADIRA Stop: 04/25/24 15:15 Last Infusion: 04/25/24 15:53 Dose: Infused Documented By: Admin: 04/25/24 14:15 Dose: 999 mls/hr Documented By: HS Acetaminophen (Ofirmev) 1,000 mg in 100 mls @ 400 mls/hr IV NOW STA Stop: 04/25/24 16:19 Last Infusion: 04/25/24 16:33 Dose: Infused Documented By: Admin: 04/25/24 16:09 Dose: 400 mls/hr Documented By: AB Discharge Plan Visit Data Chief Complaint: Hematuria ED Provider: Tal Forrester Discharge Problem: Sepsis, UTI (urinary tract infection), Hypotension Forms Stand Alone Forms: My [facility] [employer] Prescriptions Prescriptions: No Action sertraline 25 mg tablet 25 mg PO QAM lorazepam 0.5 mg tablet 0.5 mg PO BID PRN (Reason: Anxiety) metformin 500 mg tablet extended release 24 hr 1,000 mg PO QAM (DME) FreeStyle Yulissa 2 Sensor Kit See Rx Instructions .ROUTE .MEDSUPPLY Qty: 1 Rx Instructions: As directed Eliquis 5 mg tablet 5 mg PO Q12H Hold Instructions: Can resume on 03/21/24 as per your heavy media operator tamsulosin 0.4 mg Capsule 0.4 mg PO HS Qty: 30 0RF ropinirole 0.25 mg Tablet 0.25 mg PO HS Qty: 30 0RF metoprolol succinate 50 mg Tablet Extended Release 24 Hr 25 mg PO BID Qty: 30 0RF clopidogrel [Plavix] 75 mg Tablet 75 mg PO QAM Hold Instructions: Can resume on 03/21/24 as per your heavy media operator atorvastatin 20 mg tablet 20 mg PO QAM Hold Instructions: Resume on 10/14/23. spironolactone 25 mg Tablet 25 mg PO QAM Qty: 30 0RF Hold Instructions: Until further recommendations from your physician lisinopril 10 mg Tablet 10 mg PO BID Qty: 30 0RF Hold Instructions: Until further recommendations from a physician mirtazapine 30 mg Tablet 30 mg PO HS Jardiance 10 mg Tablet 10 mg PO QAM ondansetron HCl 4 mg tablet 4 mg PO Q8 PRN (Reason: Nausea) oxycodone 5 mg tablet 5 mg PO Q8 PRN (Reason: Severe Pain (Scale Score 7-10)) pantoprazole 40 mg tablet,delayed release (DR/EC) 40 mg PO QAM Referrals Referrals: Pedro Pablo Gaspar MD [Primary Care Provider] -
[2024-04-25] MEDS: cefTRIAXone SODIUM 2,000 MG/50 ML BAG IV STA (14:04)
[2024-04-25] MEDS: SODIUM CHLORIDE 0.9% 1,000 ML IV SCH (14:15)
[2024-04-25 14:35] LABS: Appearance Urine Clear (Clear); Bacteria Urine Automated None Seen (None Seen); Bilirubin Urine Negative (Negative); Blood Urine 3+ (Negative); Cast Urine Automated 0-2 /lpf (0-2); Color Urine Yellow; Epithelial Cell Urine Auto 0-2 /hpf (0-2); Glucose Urine UA 3+ (Negative); Ketones Urine Negative (Negative); Leukocyte Esterase Urine 1+ (Negative); Nitrite Urine Negative (Negative); Protein Urine 1+ (Negative); RBC Urine Automated >20 /hpf (0-2); Specific Gravity Urine 1.013 (1.000-1.030); Urobilinogen Urine Negative (Negative); WBC Urine Automated 21-50 /hpf (0-5); pH Urine 6.5 (4.5-7.5)
[2024-04-25 14:38] LABS: Basophils # (auto) 0.05 K/uL (0.00-0.20); Basophils % (auto) 0.3 %; Eosinophils # (auto) 0.06 K/uL (0.00-0.50); Eosinophils % (auto) 0.4 %; Hemoglobin 8.5 g/dl (14.0-18.0); Immature Granulocytes # (auto) 0.15 K/uL (0.01-0.20); Immature Granulocytes % (auto) 0.9 %; Lymphocytes # (auto) 1.84 K/uL (1.20-3.40); Mean Corpuscular Hemoglobin 23.2 pg (25.0-34.0); Mean Corpuscular Hgb Conc 31.5 g/dL (32.0-36.0); Mean Corpuscular Volume 73.6 fL (80.0-100.0); Mean Platelet Volume 10.4 fL (9.4-12.4); Monocytes # (auto) 0.91 K/uL (0.11-0.59); Monocytes % (auto) 5.4 %; Neutrophils # (auto) 13.76 K/uL (1.40-6.50); Platelet Count 291 K/uL (130-400); RDW Coefficient of Variation 17.5 % (11.5-14.5); RDW Standard Deviation 46.6 fL (36.4-46.3); Red Blood Count 3.67 M/uL (4.70-6.10); White Blood Count 16.77 K/ul (4.8-10.8)
[2024-04-25 14:44] LABS: BUN Creatinine Ratio 16.1 (10-20); Creatinine Clr Calc Pharmacy 28.5 ml/min; Est GFR (African American) 31.1 ml/min; Est GFR (Non-African American) 26.8 ml/min
[2024-04-25 14:53] LABS: INR 1.1 (0.9-1.1)
--- NOTE | 2024-04-25 16:07 | History & Physical Report ---
Date of Service April 25, 2024 History of Present Illness Primary Care Provider: Pedro Pablo Gaspar MD This is a 53 y/o male with chronic systolic heart failure, CAD s/p ID w/ stenting in 2013, HTN, hyperlipidemia, ischemic cardiomyopathy, DM2, GERD, CKD3, prior PE, prior CVA w/ mild cognitive disability, and hx alcohol abuse who presented to the ED today with increased urethral pain that he relates to his Giles catheter. He notes that his home nurse changed his catheter last - since then, his chronic pain in the urethra has increased. Yesterday, noticed blood discharge from the penis. Giles was removed this morning before he came to the ED but has since been replaced. Currently, the pain is somewhat better than it was before the Gilse was pulled at home. Nausea but no vomiting, no hematemesis. Bowel movements are variable but at baseline. Overall, appetite is okay. Denies fevers, chills, chest pain, leg swelling. Allergies Allergy/AdvReac Type Severity Reaction Status Date / Time No Known Allergies Allergy Verified 04/25/24 16:14 Home Medications Medication Instructions Recorded Confirmed Type clopidogrel 75 mg tablet (Plavix) 75 mg PO QAM 06/05/21 04/25/24 History atorvastatin 20 mg tablet 20 mg PO QAM 09/08/23 04/25/24 History lisinopril 10 mg tablet 10 mg PO BID #30 tabs 09/23/23 04/25/24 Rx spironolactone 25 mg tablet 25 mg PO QAM #30 tabs 09/23/23 04/25/24 Rx apixaban 5 mg tablet (Eliquis) 5 mg PO Q12H 10/08/23 04/25/24 History tamsulosin 0.4 mg capsule 0.4 mg PO HS #30 caps 10/09/23 04/25/24 Rx metoprolol succinate 50 mg 25 mg (1/2 x 50 mg) PO BID #30 tabs 10/12/23 04/25/24 Rx tablet,extended release 24 hr ropinirole 0.25 mg tablet 0.25 mg PO HS #30 tabs 10/12/23 04/25/24 Rx flash glucose sensor (FreeStyle #1 ea 01/01/24 04/25/24 History Yulissa 2 Sensor kit) lorazepam 0.5 mg tablet 0.5 mg PO BID PRN Anxiety 01/01/24 04/25/24 History metformin 500 mg tablet,extended 1,000 mg PO QAM 01/01/24 04/25/24 History release 24 hr sertraline 25 mg tablet 25 mg PO QAM 01/01/24 04/25/24 History mirtazapine 30 mg tablet 30 mg PO HS 01/11/24 04/25/24 History empagliflozin 10 mg tablet 10 mg PO QAM 01/19/24 04/25/24 History (Jardiance) ondansetron HCl 4 mg tablet 4 mg PO Q8 PRN Nausea 04/25/24 04/25/24 History oxycodone 5 mg tablet 5 mg PO Q8 PRN Severe Pain (Scale 04/25/24 04/25/24 History Score 7-10) pantoprazole 40 mg tablet,delayed 40 mg PO QAM 04/25/24 04/25/24 History release Past Med/Surg History Problem List (Updated 04/25/24 @ 17:04 by Tal Forrester MD) Hypotension (Acute) UTI (urinary tract infection) (Acute) Sepsis (Acute) Ulcer, esophagus Acute blood loss anemia Acute cholecystitis Acute upper GI bleed Encounter for pre-operative examination BPH loc w urin obs/LUTS Pancreatic pseudocyst Gastric perforation Abnormal CT of the abdomen Tachycardia (Acute) Constipation (Acute) Acute urinary retention (Acute) BRUNA (acute kidney injury) (Acute) Lower abdominal pain (Acute) LV (left ventricular) mural thrombus Noted on 09/17/23 ECHO- currently on Eliquis Pulmonary infarct Pneumonia Acute urinary retention BRUNA (acute kidney injury) Prolonged QT interval Acute systolic CHF (congestive heart failure) Elevated LFTs Hypoxia Acute CHF Pulmonary embolism Elevated troponin (Acute) H/O: CVA (cerebrovascular accident) (Acute) Abnormal MRI of head MRI 06/15/20 showed MCA infarcts as well as ring enhancement right posterior lobe. Repeat MRI recommended in 3 months. Stenosis of right internal carotid artery with cerebral infarction Chronic ischemic right MCA stroke Ischemic cardiomyopathy EF=20-25% 09/2023 CKD (chronic kidney disease), stage III Hx of endarterectomy (06/28/20) Right Carotid Endarterectomy with Bovine Patch Angioplasty Dr. Arita 06/28/2020 Dyslipidemia Depression CAD (coronary artery disease) (~2013) 2014 - NSTEMI s/p BRUCE to RCA Cardiac cath 09/22/23 ([facility])- no stents or bypass (did show three vessel CAD) DM type 2 (diabetes mellitus, type 2) Hgb A1C 12.4 Only on Metformin as of 01/19/24 Hypertension (Chronic) Carotid stenosis, bilateral s/ right CEA (2019) Medical History Giles catheter in place Enlarged prostate Hx pulmonary embolism 09/08/23- bilateral PEs History of suicidal ideation (~2020) voluntary admission [facility] Hx of congestive heart failure (~10/2023) [facility] Hx of pancreatitis LV (left ventricular) mural thrombus Noted on 09/17/23 ECHO- currently on Eliquis CKD (chronic kidney disease), stage III Ischemic cardiomyopathy EF=20-25% 09/2023 Dyslipidemia Depression CAD (coronary artery disease) (~2013) 2013 - NSTEMI s/p BRUCE to RCA Cardiac cath 09/22/23 ([facility])- no stents or bypass (did show three vessel CAD) DM type 2 (diabetes mellitus, type 2) Hgb A1C 12.4 Only on Metformin as of 01/19/24 History of cerebrovascular accident (~2019) x5 "multiple mini strokes" [facility], no current neurologist, left arm "almost useless" and left side "doesn't work quite right" Most recent CVA 2020 per records Carotid stenosis, bilateral s/ right CEA (2019) Hypertension Surgical History Hx of cardiac catheterization (~09/2023) [facility], no stents Hx of endarterectomy (06/28/20) Right Carotid Endarterectomy with Bovine Patch Angioplasty Dr. Arita 06/28/2020 S/P drug eluting coronary stent placement (~2013) [facility], currently follows at [facility] Family History Mother , age 68 from metastatic lung cancer Lung cancer Father No problems noted. 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[employer], 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 Feels Safe at Home: Yes Assistive Devices: Walker Results & Data Results & Data Vital Signs (Past 12 Hours) Vital Signs Temp Pulse Resp BP BP Pulse Ox O2 Del Method 04/25/24 14:05 115/80 04/25/24 13:35 90 19 95 04/25/24 13:16 84/65 L 04/25/24 13:14 97 H 24 97 04/25/24 13:02 104 H 04/25/24 13:00 80/56 L 04/25/24 12:20 36.5 C 108 H 20 96/63 L 97 Room Air Laboratory Results Lab Results 04/25/24 04/25/24 04/25/24 Range/Units 13:03 13:08 13:10 WBC (4.8-10.8) K/ul RBC (4.70-6.10) M/uL Hgb (14.0-18.0) g/dl Hct (42.0-52.0) % MCV (80.0-100.0) fL MCH (25.0-34.0) pg MCHC (32.0-36.0) g/dL RDW Std Deviation (36.4-46.3) fL RDW Coeff of Dione (11.5-14.5) % Plt Count (130-400) K/uL MPV (9.4-12.4) fL Immature Gran % (Auto) % Neut % (Auto) % Lymph % (Auto) % [place] % (Auto) % Eos % (Auto) % Baso % (Auto) % Neut # (Auto) (1.40-6.50) K/uL Lymph # (Auto) (1.20-3.40) K/uL [place] # (Auto) (0.11-0.59) K/uL Eos # (Auto) (0.00-0.50) K/uL Baso # (Auto) (0.00-0.20) K/uL Immature Gran # (Auto) (0.01-0.20) K/uL PT (9.0-12.0) Seconds INR (0.9-1.1) VBG pH 7.35 L (7.36-7.41) VBG pCO2 39 (38-50) mmHg VBG pO2 22 mmHg VBG HCO3 22 mmol/L VBG O2 Saturation < 60.0 % VBG Base Excess -3.8 mEq/L Sodium (136-145) mmol/L Potassium (3.5-5.1) mmol/L Chloride (98-107) mmol/L Carbon Dioxide (21-32) mmol/L Anion Gap (3-11) BUN (6-23) mg/dl Creatinine (0.6-1.4) mg/dl Est Cr Clr Drug Dosing ml/min Est GFR ( Amer) ml/min Est GFR (Non-Af Amer) ml/min BUN/Creatinine Ratio (10-20) Glucose (70-99(Fasting)) mg/dl Lactate 1.9 (0.4-2.0) mmol/L Calcium (8.6-10.3) mg/dl Urine Color Urine Appearance (Clear) Urine pH (4.5-7.5) Ur Specific [place] (1.000-1.030) Urine Protein (Negative) Urine Glucose (UA) (Negative) Urine Ketones (Negative) Urine Blood (Negative) Urine Nitrite (Negative) Urine Bilirubin (Negative) Urine Urobilinogen (Negative) Ur Leukocyte Esterase (Negative) Urine WBC (Auto) (0-5) /hpf Urine RBC (Auto) (0-2) /hpf U Hyaline Cast (Auto) (0-2) /lpf U Epithel Cells (Auto) (0-2) /hpf Urine Bacteria (Auto) (None Seen) Blood Type O Positive Antibody Screen NEGATIVE 04/25/24 04/25/24 Range/Units 14:02 Unknown WBC 16.77 H (4.8-10.8) K/ul RBC 3.67 L (4.70-6.10) M/uL Hgb 8.5 L (14.0-18.0) g/dl Hct 27.0 L (42.0-52.0) % MCV 73.6 L (80.0-100.0) fL MCH 23.2 L (25.0-34.0) pg MCHC 31.5 L (32.0-36.0) g/dL RDW Std Deviation 46.6 H (36.4-46.3) fL RDW Coeff of Dione 17.5 H (11.5-14.5) % Plt Count 291 (130-400) K/uL MPV 10.4 (9.4-12.4) fL Immature Gran % (Auto) 0.9 % Neut % (Auto) 82.0 % Lymph % (Auto) 11.0 % [place] % (Auto) 5.4 % Eos % (Auto) 0.4 % Baso % (Auto) 0.3 % Neut # (Auto) 13.76 H (1.40-6.50) K/uL Lymph # (Auto) 1.84 (1.20-3.40) K/uL [place] # (Auto) 0.91 H (0.11-0.59) K/uL Eos # (Auto) 0.06 (0.00-0.50) K/uL Baso # (Auto) 0.05 (0.00-0.20) K/uL Immature Gran # (Auto) 0.15 (0.01-0.20) K/uL PT 12.0 (9.0-12.0) Seconds INR 1.1 (0.9-1.1) VBG pH (7.36-7.41) VBG pCO2 (38-50) mmHg VBG pO2 mmHg VBG HCO3 mmol/L VBG O2 Saturation % VBG Base Excess mEq/L Sodium 135 L (136-145) mmol/L Potassium 5.0 (3.5-5.1) mmol/L Chloride 107 (98-107) mmol/L Carbon Dioxide 23 (21-32) mmol/L Anion Gap 5 (3-11) BUN 42 H (6-23) mg/dl Creatinine 2.61 H (0.6-1.4) mg/dl Est Cr Clr Drug Dosing 28.5 ml/min Est GFR ( Amer) 31.1 ml/min Est GFR (Non-Af Amer) 26.8 ml/min BUN/Creatinine Ratio 16.1 (10-20) Glucose 143 H (70-99(Fasting)) mg/dl Lactate (0.4-2.0) mmol/L Calcium 9.0 (8.6-10.3) mg/dl Urine Color Yellow Urine Appearance Clear (Clear) Urine pH 6.5 (4.5-7.5) Ur Specific [place] 1.013 (1.000-1.030) Urine Protein 1+ H (Negative) Urine Glucose (UA) 3+ H (Negative) Urine Ketones Negative (Negative) Urine Blood 3+ H (Negative) Urine Nitrite Negative (Negative) Urine Bilirubin Negative (Negative) Urine Urobilinogen Negative (Negative) Ur Leukocyte Esterase 1+ H (Negative) Urine WBC (Auto) 21-50 H (0-5) /hpf Urine RBC (Auto) >20 H (0-2) /hpf U Hyaline Cast (Auto) 0-2 (0-2) /lpf U Epithel Cells (Auto) 0-2 (0-2) /hpf Urine Bacteria (Auto) None Seen (None Seen) Blood Type Antibody Screen Medications Administered Discontinued Medications Ceftriaxone Sodium (Rocephin) 2,000 mg in 50 mls @ 100 mls/hr IV NOW STA Stop: 04/25/24 13:52 Last Infusion: 04/25/24 14:39 Dose: Infused Documented By: Admin: 04/25/24 14:04 Dose: 100 mls/hr Documented By: HS Sodium Chloride (Nss) 1,000 mls @ 999 mls/hr IV .Q1H1M YADIRA Stop: 04/25/24 15:15 Last Infusion: 04/25/24 15:53 Dose: Infused Documented By: Admin: 04/25/24 14:15 Dose: 999 mls/hr Documented By: HS Code Status & VTE Plan VTE Prophylaxis Plan VTE Prophylaxis will be ordered: Yes Supervising Physician Co-Signing Physician Notes I have seen and discussed the case with the collaborating advanced practitioner. I agree with the above H&P. I have reviewed and confirmed the patients medical history, the findings on physical examination, and the patients diagnosis and treatment plan with Aubere JOE and agree with the information documented. In short, Mr. Bansal is a 53-year-old male with PMHx of alcohol abuse, tobacco abuse, chronic systolic heart failure, CAD status post stenting and ID in 2013, HTN, HLD, ischemic cardiomyopathy, DM type II, GERD, CKD stage III, history of pulmonary embolism, history of CVA with mild cognitive disability who is also on plavix/eliquis who is admitted for BRUNA on CKDIII and hypotension. Patient states giles was place on and notable pain experienced. Patient with chronic uretheral pain, but this was different. He declined recalling any urine retention but notes fluid and bloody discharge around urethra. Denies fevers chills or other acute concerns. Denies any nausea vomiting or repeat bleeding episodes. GENERAL APPEARANCE: AxOx4, disheveled, however does not recall this feature writer despite multiple prior encounters, no acute distress. HEENT: NC, AT. MMM. EOMI, clear conjunctiva, oropharynx clear. NECK: Supple without lymphadenopathy. No stiffness or restricted ROM. HEART: Normal rate and regular rhythm, normal S1/S1, no m/r/g LUNGS: CTAB, moving air well. No crackles or wheezes are heard. ABDOMEN: Soft, nontender, nondistended with good bowel sounds heard. BACK: No CVAT, no obvious deformity. EXTREMITIES: Without cyanosis, clubbing or edema. NEUROLOGICAL: Grossly nonfocal. Alert and oriented, moving all 4 extremities. Skin: Warm and dry without any rash. #Leukocytosis -perhaps reactive 2/2 obstructive uropathy from poor Giles placement, or perhaps infectious given complex history/indwelling giles UA less suspicious for infection, patient with chronic urethral pain, no clear localizing source -INfectious work up Zosyn empirically Recent MRSA nare negative #Hypotension asymptomatic, patient with severe HFrEF noted there for this BP is not off kilter; however, trends are in the 110s or higher, will empirically cover as above, follow infectious work up IVF 500cc over 2 hours, monitor volume #BRUNA on CKDIII concern for possible obstructive given reports of painful giles placement with blood/leaking around uretheral meatus Repeat bmp, follow IOs #LUTS #BPH Chronic indwelling giles, reports pain and discomfort after placement 04/21 hold tamsulosin #Microscopic Hematuria dried blood around meatus, urine dark but not grossly bloodly will continue home AC #Chronic heart failure with reduced ejection fraction, #Left ventricular apical thrombus #Ischemic cardiomyopathy, severe coronary artery disease ECHO 09/17 with EF 20-25%, severe hypokinesis & Left ventricular apical thrombus discovered in the setting of severe cardiomyopathy Status post cardiac cath 09/22: Three-vessel coronary artery disease with markedly elevated left end-diastolic pressure. Diffuse coronary atherosclerosis but degree of coronary disease disproportionate to degree of systolic dysfunction -Was on plavix, eliquis combo for thrombus/severe CAD -On metoprolol 25mg XL BID; hold, IV metoprolol 2.5mg IV q4h -Hold all antihypertensives (lisinopril 10mg BID, Jardiance, spironolactone) #ASCVD #Prior Stroke -2019, on statin #Recent Pulmonary Emboli c/b Pulmonary Infarct continue eliquis rest of plan as above I spent a total of 35 minutes coordinating, documenting, and providing care for this patient excluding time spent in the performance of separately billed services. All of the aforementioned completed outside of collaborating with the assigned advanced practitioner for a full treatment plan. I have reviewed the advanced practitioner's documentation, and I agree with, and take responsibility for the plan of care
[2024-04-25] MEDS: ACETAMINOPHEN 1,000 MG/100 ML VIAL IV STA (16:09)
--- NOTE | 2024-04-25 17:35 | Electrocardiogram Report ---
Test Reason : Blood Pressure : / mmHG Vent. Rate : 115 BPM Atrial Rate : 115 BPM P-R Int : 142 ms QRS Dur : 092 ms QT Int : 312 ms P-R-T Axes : 023 -22 100 degrees QTc Int : 431 ms Sinus tachycardia with Premature supraventricular complexes Left ventricular hypertrophy with repolarization abnormality Inferior infarct (cited on or before 04-MAY-2021) Abnormal ECG When compared with ECG of 13-MAR-2024 15:27, Premature supraventricular complexes are now Present Confirmed by Vaibhav Espinoza ([id number]) on 04/25/2024 5:35:03 PM Referred By: REFERRED SELF Confirmed By:Luis Espinoza
[2024-04-25] MEDS: SODIUM CHLORIDE 0.9% 500 ML IV SCH (18:28)
[2024-04-25] MEDS ORDERED: PIPER/TAZO 4.5g in D5W MINI-B 100 ML IV ONE (18:45)
[2024-04-25] MEDS ORDERED: LORazepam 0.5 MG TAB PO PRN (19:05)
[2024-04-25] MEDS ORDERED: ONDANSETRON 4 MG OD TAB PO PRN (19:15)
[2024-04-25] MEDS: HYDROmorphone INJ 0.5 MG/0.5 ML SYR IV PRN (19:36)
[2024-04-25] MEDS: PIPERACILLIN/TAZOBACTAM 4.5 GM/100 ML BAG IV STA (20:14)
[2024-04-25] MEDS ORDERED: TAMSULOSIN HCL 0.4 MG CAP PO SCH (21:00)
[2024-04-25] MEDS: METOPROLOL SUCC 25MG EXT REL TAB PO SCH (21:20)
[2024-04-25] MEDS: LIDOCAINE 2% JELLY 5 ML TUBE EXT SCH (21:20)
[2024-04-25] MEDS: MIRTAZAPINE TAB 15 MG TAB PO SCH (21:20)
[2024-04-25] MEDS: APIXABAN 5 MG TABLET PO SCH (21:20)
[2024-04-25] MEDS: PIPERACILLIN/TAZOBACTAM 4.5 GM in DEXTROSE 5% MINI-B 100 ML IV SCH (21:21)
[2024-04-25] MEDS: rOPINIRole HCL 0.25 MG TABLET PO SCH (21:21)
--- OUTSIDE RECORDS SUMMARY | 2024-04-25 21:33 | External Medical Summary | Summary of Care ---
Author Name Unknown Organization [facility] Address [address] [facility] [place] [address] Phone [phone] Care Team Providers Care Afloat Cryptologic Manager Name Role Phone Shira Blackman MD Primary Care Provider [phone] Reason for Visit * Reason Onset Date Comments Medication Refill 04/21/2024 Encounter Details Date Type Department Care Team (Late st Contact Info) Description 04/21/2024 [facility] [address] [facility] [place] [address] Shira Blackman MD [address] [facility] [address] Indwelling Rushing catheter present Allergies No known active allergiesdocumented as of this encounter (statuses as of 04/22/2024) Medications Medication Sig Dispensed Refills Start Date End Date Status ONETOUCH VERIO STRP 03/22/2020 Active Lancets (ONETOUCH DELICA PLUS [id number]) [facility] 03/22/2020 Active FreeStyle Yulissa 2 [place] DeviceIndication s:Type 2 diabetes mellitus with hemoglobin A1c goal of less than 7.0% ([facility]) Use as directed. 03/07/2021 Active Mupirocin 2 % External Ointment (Bactroban) Apply topically to affected area 2 times a day. 10/12/2023 Active Furosemide 20 MG Oral Tablet (Lasix) Take 0.5 Tablets by mouth in the morning. 09/30/2023 Active Tamsulosin HCl 0.4 MG Oral Capsule (Flomax)Indicati ons:Urinary retention,Histor y of pulmonary embolism Take 1 Capsule by mouth in the morning. 30 Capsule 11/23/2023 Active Spironolactone 25 MG Oral Tablet (Aldactone)Indic ations:Chronic systolic heart failure (HCC) Take 1 Tablet by mouth in the morning. 30 Tablet 11/23/2023 Active Metoprolol Succinate ER 25 MG Oral Tablet Extended Release 24 Hour (toPROL XL)Indications:C hronic systolic heart failure (HCC) Take 1 Tablet by mouth 2 times a day. 60 Tablet 11/23/2023 Active metFORMIN HCl ER 500 MG Oral Tablet Extended Release 24 Hour (Glucophage XR) Take 2 Tablets by mouth in the morning. 60 Tablet 11/23/2023 Active Lisinopril 10 MG Oral Tablet (Prinivil)Indica tions:Type 2 diabetes mellitus with hemoglobin A1c goal of less than 7.0% ([facility]),HTN, goal below 130/80 Take 1 Tablet by mouth 2 times a day. 60 Tablet 11/23/2023 Active Clopidogrel Bisulfate 75 MG Oral Tablet (pLAVix)Indicati ons:Old [place] (myocardial infarction),Hist ory of CVA (cerebrovascular accident) TAKE 1 TABLET BY MOUTH EVERY DAY IN THE MORNING 90 Tablet 11/23/2023 Active Atorvastatin Calcium 20 MG Oral Tablet (Lipitor)Indicat ions:Dyslipidemi a TAKE 1 TABLET BY MOUTH EVERY DAY IN THE MORNING 90 Tablet 11/23/2023 Active Apixaban 5 MG Oral Tablet (Eliquis) Take 1 Tablet by mouth 2 times a day. 60 Tablet 2023 Active FreeStyle Yulissa 2 Sensor Use as directed. Use as directed to check blood sugar 3 Each 2 01/13/2024 Active LORazepam 0.5 MG Oral Tablet (Ativan) Take 1 Tablet by mouth every 6 hours as needed for Anxiety. Takes as needed Active Sertraline HCl 25 MG Oral Tablet (Zoloft) Take 1 Tablet by mouth in the morning. Active rOPINIRole HCl 0.25 MG Oral Tablet (Requip) TAKE ONE TABLET AT BEDTIME 30 Tablet 2 03/31/2024 Active Jardiance 10 MG Oral Tablet (Empagliflozin)I ndications:Type 2 diabetes mellitus with hemoglobin A1c goal of less than 7.0% ([facility]) TAKE ONE TABLET BY MOUTH IN THE MORNING 30 Tablet 2 03/31/2024 Active Pantoprazole Sodium 40 MG Oral Tablet Delayed Release (Protonix) Take 1 Tablet by mouth in the morning. 30 Tablet 6 03/30/2024 Active oxyCODONE HCl 5 MG Oral Tablet (Oxy IR)Indications:I ndwelling Rushing catheter present Take 1 Tablet by mouth every 8 hours as needed for Pain, Severe. 30 Tablet 04/22/2024 Active Ondansetron HCl 4 MG Oral Tablet Take 1 Tablet by mouth every 8 hours as needed for Nausea. 10 Tablet 04/22/2024 Active Ondansetron HCl 4 MG Oral Tablet Take 1 Tablet by mouth every 8 hours as needed for Nausea. 10 Tablet 03/28/2024 04/21/2024 Discontinued (Refill) oxyCODONE HCl 5 MG Oral Tablet (Oxy IR)Indications:I ndwelling Rushing catheter present Take 1 Tablet by mouth every 8 hours as needed for Pain, Severe. 30 Tablet 04/13/2024 04/21/2024 Discontinued (Refill) documented as of this encounter (statuses as of 04/22/2024) Active Problems Problem Noted Date Diagnosed Date BPH with obstruction/lower urinary tract symptom s 03/29/2024 Indwelling Rushing catheter present 03/29/2024 Protein-calorie malnutrition 10/15/2023 Depression with anxiety 10/14/2023 [...] 05/04/2020 HTN, goal below 130/80 03/26/2020 Old PA (myocardial infarction) 03/26/2020 Dyslipidemia 03/26/2020 Tobacco use disorder 03/26/2020 History of CVA (cerebrovascular accident) 2019 Type 2 diabetes mellitus wit h hemoglobin A1c goal of less than 7.0% 03/26/2020 Chronic systolic heart failure 03/26/2020 documented as of this encounter (statuses as of 04/22/2024) Resolved Problems Problem Noted Date Diagnosed Date Resolved Date Preoperative general physical examination 02/03/2024 03/29/2024 ETD (Eustachian tube dysfunction), bilateral 08/29/2022 GÓMEZ (generalized anxiety disorder) 05/08/2021 10/14/2023 Moderate episode of recurren t major depressive disorder 05/08/2021 10/14/2023 MEDICATION USE AGREEMENT 12/14/2020 Atherosclerotic heart diseas e of [place] coronary artery with other forms of angina pectoris 05/04/2020 08/08/2020 Adjustment disorder with depressed mood 03/26/2020 05/08/2021 Bilateral carotid artery stenosis 03/26/2020 07/06/2020 documented as of this encounter (statuses as of 04/22/2024) Immunizations Name Administration Dates Next Due COVID-19 mRNA, LNP-s, No Pre serve, 2-Dose Series (Fiteeza) 04/06/2021,03/16/2021 COVID-19, MRNA-LNP, 23-24, P F, 30 MCG/0.3 mL, 12 YRS AND ABOVE, IM (PFIZER-Comirnaty) 03/29/2024 Hepatitis B, 20+ yrs 12/14/2020,05/04/2020 Pneumococcal Polysaccharide PPV23 (Pneumovax) 10/16/2014 Seasonal Influenza, PF, 6 M & above, IM , (FluLaval or Fluzone) 10/15/2023,08/29/2022,08/14/2021,08/27 TDAP (age 10 and older)(Boostrix) 05/04/2020 Zoster Vaccine Recombinant (Shingrix) 03/29/2024 documented as of this encounter Social History [...] the money to buy more. Never true 04/01/20 24 Within the past 12 months, t he food you bought just didn't last and you didn't have money to get more. Never true 04/01/2024 Sex and Gender Information Value Date Recorded Sex Assigned at Not on file Gender Identity Not on file Sexual Orientation Not on file Job Start Date Occupation Industry Not on file Not on file Not on file documented as of this encounter Miscellaneous Notes * Telephone Encounter - Shira Blackman MD - 04/22/2024 1:12 PM EDTSigned Prescriptions: Disp Refills oxyCODONE HCl 5 MG Oral Tablet (Oxy IR) 30 Tab*0 Sig: Take 1 Tablet by mouth every 8 hours as needed for Pain, Severe. Authorizing Provider: SHIRA BLACKMAN Ondansetron HCl 4 MG Oral Tablet 10 Tab*0 Sig: Take 1 Tablet by mouth every 8 hours as needed for Nausea. Authorizing Provider: SHIRA BLACKMAN * Telephone Encounter - Masha Duarte [facility] - 04/22/2024 11:36 AM EDT Pending Prescriptions: Disp Refills oxyCODONE HCl 5 MG Oral Tablet (Oxy IR) 30 Tab*0 Sig: Take 1 Tablet by mouth every 8 hours as needed for Pain, Severe. Ondansetron HCl 4 MG Oral Tablet 10 Tab*0 Sig: Take 1 Tablet by mouth every 8 hours as needed for Nausea. * Telephone Encounter - Masha Duarte [facility] - 04/22/2024 11:23 AM EDT Forwarding zofran as well - please approve if continuation of therapy is appropriate. I have reviewed the patients controlled substance dispensing history in the Prescription Drug Monitoring Program in compliance with the [facility] regulations before prescribing a controlled substance. PDMP checked on 04/22/2024. Pending Prescriptions: Disp Refills oxyCODONE HCl 5 MG Oral Tablet (Oxy IR) 30 Tab*0 Sig: Take 1 Tablet by mouth every 8 hours as needed for Pain, Severe. Ondansetron HCl 4 MG Oral Tablet 10 Tab*0 Sig: Take 1 Tablet by mouth every 8 hours as needed for Nausea. Last Visit: 03/29/2024 (in office), 08/08/2020 (telemedicine) Next Visit: Visit date not found Date medication was last filled: 04/13/24 Date medication is due for refill: 04/22/24 Pharmacy: [email or web address] Is this request for a controlled substance? Yes and Urine Drug Screen Not completed Toxicology results: Results for orders placed or performed in [...] URINE VALID INTERP NORMAL CREATININE IDALIA 45 Please approve if appropriate. Thank you, Masha Duarte, PharmD Clinical Pharmacist [facility] ([facility]) 04/22/24 11:23 AM [phone] * Telephone Encounter - Maribell Rubin CPhT - 04/21/2024 10:58 AM EDT Did you pend patient's preferred pharmacy and medication before forwarding?yes Pharmacy: [email or web address] [place] Pending Prescriptions: Disp Refills oxyCODONE HCl 5 MG Oral Tablet (Oxy IR) 30 Tab*0 Sig: Take 1 Tablet by mouth every 8 hours as needed for Pain, Severe. Ondansetron HCl 4 MG Oral Tablet 10 Tab*0 Sig: Take 1 Tablet by mouth every 8 hours as needed for Nausea. Last Visit: 03/29/2024 (in office), 08/08/2020 (telemedicine) Next Visit: Visit date not found If no future appointments scheduled, and last appointment is greater than a year ago, please schedule patient for a follow-up appointment Last date the medication was ordered: 04/13/24 Is this request for a controlled substance?Yes, What was the last refill date 04/13/24 w/ quantity 30 and dosage Take 1 Tablet by mouth every 8 hours as needed for Pain, Severe and Urine Drug Screen was completed Urine Drug Screen: Results for orders placed [...] Labs: Lab Results Component Value Date/Time CREAT 1.2 03/19/2024 09:19 AM CREAT 1.04 10/12/2023 12:00 AM CREAT 1.3 (H) 05/04/2020 03:11 PM POTASSIUM 4.4 03/19/2024 09:19 AM POTASSIUM 4.4 10/12/2023 12:00 AM POTASSIUM 4.0 05/04/2020 03:11 PM LDLDIRECT 113 01/15/2024 12:19 PM ALT 13 01/15/2024 12:19 PM ALT 13 05/04/2020 03:11 PM HGBA1C 12.4 (H) 01/15/2024 12:19 PM HGBA1C 5.3 12/14/2020 01:23 PM documented in this encounter Plan of Treatment Upcoming Encounters Date Type Department Care Team (Late st Contact Info) Description 04/27/2024 10:00 AM EDT [facility] [address] [place] [address] Kareem Ruano MD [address] [place] [address] 04/27/2024 12:40 PM EDT [facility] [address] [place] [address] Shira Blackman MD [address] [place] [address] 05/30/2024 10:10 AM EDT Office Visit Pharmacy, [address] [place] [address] [place] [address] 06/17/2024 12:30 PM EDT Office Visit Gastroenterology [address] [place] [address] Ayala Pacheco CRNP [address] [place] [address] Health Maintenance Due Date Last Done Comments DISCUSS TOBACCO CESSATION (REFER TO SMARTSET #5981) 1970 HIV Screening 1985 Hepatitis C Screening 1988 Pneumococcal Vaccine: Pediatrics (0 to 5 Years) and At-Risk Patients (6 to 64 Years) (2 of 2 - PCV) 10/16/2015 10/16/2014 Cologuard 2015 Colonoscopy 2015 Colorectal Cancer Screening 2015 Fecal Occult Blood Test 2015 Sigmoidoscopy 2015 Hepatitis B (3 of 3 - 19+ 3-dose series) 02/08/2021 12/14/2020, 05/04/2020 Diabetic Foot Exam 03/26/2021 03/26/2020 Diabetic Eye Exam 07/07/2023 07/07/2022, , 01/28/2021, Additional history exists Zoster Vaccines (2 of 2) 05/24/2024 03/29/2024 HbA1c 07/17/2024 01/15/2024, 08/16, 02/11/2022, Additional history exists GFR 09/19/2024 03/19/2024, 01/15, 01/15/2024, Additional history exists CKD PHOS USE SMARTSET 70746 01/14/2025 01/15/2024, 1 12/12/2022 Albumin/Creatinine Ratio 01/26/2025 024, 08/29/2022, 12/14/2020 CKD HGB USE SMARTSET 50272 03/19/202503/19, 02/03/2024, 02/03/2024, Additional history exists DTaP,Tdap,and Td Vaccines (2 - Td or Tdap) 05/04/2030 05/04/2020 Influenza Vaccine (FLU shot) Completed , 08/29/2022, 08/14/2021, Additional history exists COVID-19 Vaccine Completed 03/29/2024, , 03/16/2021 GARDASIL-HPV IMMUNIZATION SERIES Aged Out No longer eligible based on patient's age to complete this topic MENINGOCOCCAL (MENACTRA/MENVEO) Aged Out No longer eligible based on patient's age to complete this topic documented as of this encounter Medical Devices Not on filedocumented as of this encounter Visit Diagnoses Diagnosis Indwelling Rushing catheter present documented in this encounter Care Teams Afloat Cryptologic Manager Relationship Specialty Start Date End Date Shira Blackman MD [address] [place] [address] PCP - General Family Medicine 10/22/20 documented as of this encounter
--- OUTSIDE RECORDS SUMMARY | 2024-04-25 21:33 | External Medical Summary | Summary of Care ---
Author Name Unknown Organization [facility] Address [address] [place] [address] Phone [phone] Care Team Providers Care Forms Designer Name Role Phone Pedro Pablo Gaspar MD Primary Care Provider [phone] Encounter Details Date Type Department Care Team (Late st Contact Info) Description 04/22/2024 9:15 AM EDT Scheduled Telephone Care Coordination and Integration [address], [place] [id number] Ca Collazo, [facility] Speech Therapy Assistant [address], [place] [id number] Need for case management follow-up* Allergies No known active allergiesdocumented as of this encounter (statuses as of 04/22/2024) Medications Medication Sig Dispensed Refills Start Date End Date Status ONETOUCH VERIO STRP 03/22/2020 Activ e Lancets (ONETOUCH DELICA PLUS [id number]) [facility] 03/22/2020 Active FreeStyle Yulissa 2 [place] DeviceIndications:T ype 2 diabetes mellitus with hemoglobin A1c goal of less than 7.0% ([facility]) Use as directed. 03/07/2021 Active Mupirocin 2 [...] Oral Tablet Extended Release 24 Hour (toPROL XL)Indications:Fats And Oils Loader edie systolic heart failure (HCC) Take 1 Tablet by mouth 2 times a day. 60 Tablet 11/23/2023 Active metFORMIN HCl ER 500 MG Oral Tablet Extended Release 24 Hour (Glucophage XR) Take 2 Tablets by mouth in the morning. 60 Tablet 11 11/23/2023 Active Lisinopril 10 MG Oral Tablet (Prinivil)Indicatio ns:Type 2 diabetes mellitus with hemoglobin A1c goal of less than 7.0% ([facility]),HTN, goal below 130/80 Take 1 Tablet by mouth 2 times a day. 60 Tablet 11/23/2023 Active Clopidogrel Bisulfate 75 MG Oral Tablet (pLAVix)Indications :Old [place] (myocardial infarction),History of CVA (cerebrovascular accident) TAKE [...] Tablet by mouth in the morning. Active Ondansetron HCl 4 MG Oral Tablet Take 1 Tablet by mouth every 8 hours as needed for Nausea. 10 Tablet 03/28/2024 Active rOPINIRole HCl 0.25 MG Oral Tablet (Requip) TAKE ONE TABLET AT BEDTIME 30 Tablet 2 03/31/2024 Active Jardiance 10 MG Oral Tablet (Empagliflozin)Ambreen cations:Type 2 diabetes mellitus with hemoglobin A1c goal of less than 7.0% ([facility]) TAKE ONE TABLET BY MOUTH IN THE MORNING 30 Tablet 2 03/31/2024 Active Pantoprazole Sodium 40 MG Oral Tablet Delayed Release (Protonix) Take 1 Tablet by mouth in the morning. 30 Tablet 6 03/30/2024 Active oxyCODONE HCl 5 MG Oral Tablet (Oxy IR)Indications:Indw elling Rushing catheter present Take 1 Tablet by mouth every 8 hours as needed for Pain, Severe. 30 Tablet 04/13/2024 Active documented as of this encounter (statuses [...] 05/04/2020 HTN, goal below 130/80 03/26/2020 Old [place] (myocardial infarction) 03/26/2020 Dyslipidemia 03/26/2020 Tobacco use disorder 03/26/2020 History of CVA (cerebrovascular accident) 2019 Type 2 diabetes mellitus wit h hemoglobin A1c goal of less than 7.0% 03/26/2020 Chronic systolic heart failure 03/26/2020 documented as of this encounter (statuses as of 04/22/2024) Resolved Problems Problem Noted Date Diagnosed Date Resolved Date Preoperative general physical examination 02/03/2024 03/29/2024 ETD (Eustachian tube dysfunction), bilateral 2 08/29/2022 GÓMEZ (generalized anxiety disorder) 05/08/2021 10/14/2023 Moderate episode of recurren t major depressive disorder 05/08/2021 10/14/2023 MEDICATION USE AGREEMENT 12/14/2020 Atherosclerotic heart diseas e of [place] coronary artery with other forms of angina pectoris 05/04/2020 08/08/2020 Adjustment disorder with depressed mood 03/26/2020 05/08/2021 Bilateral carotid artery stenosis 03/26/2020 07/06/2020 documented as of this encounter (statuses as of 04/22/2024) Immunizations Name Administration Dates Next Due COVID-19 mRNA, LNP-s, No Pre serve, 2-Dose Series (Pfizer) 04/06/2021,03/16/2021 COVID-19, MRNA-LNP, 23-24, P F, 30 [...] on file documented as of this encounter Progress Notes * Yamel Light OSA - 04/22/2024 10:22 AM EDT Nothing open, please advise to pt * Marisa Oquendo RN - 04/22/2024 10:17 AM EDT Patient requesting an appointment due to dizziness and nausea. Please call patient and assist with scheduling. Thank you. * Ca Collazo [facility] Speech Therapy Assistant - 04/22/2024 9:17 AM EDT Telemedicine visit: No [facility] Speech Therapy Assistant (KIKI) documentation: CHW week 4 f/u call per Abeba Mccurdy RNCM CHW survey completed Dizziness off and on several times a week,that doesn't last. Reports occasional nausea, not with the dizziness Pt reports having to cancel his appointment with Gastro for today due to transportation issues. Electronically signed by Ca Collazo [facility] Speech Therapy Assistant at 04/22/2024 9:23 AM EDT documented in this encounter Plan of Treatment Upcoming Encounters Date Type Department Care Team (Late st Contact Info) Description 04/27/2024 10:00 AM EDT Office Visit Urology, [facility] [address] [facility] [place] [address] Kareem Ruano MD [address] [place] [address] [place] [address] 05/30/2024 10:10 AM EDT Office Visit Pharmacy, [address] [place] [address] [place] [address] 06/17/2024 12:30 PM EDT Office Visit Gastroenterology [address] [place] [address] Ayala Pacheco CRNP [address] [place] [address] Health Maintenance Due Date Last Done Comments DISCUSS TOBACCO CESSATION (REFER TO SMARTSET #8549) 1970 HIV Screening 1985 Hepatitis C Screening [...] Additional history exists CKD PHOS USE SMARTSET 23908 01/14/2025 01/15/2024, 1 12/12/2022 Albumin/Creatinine Ratio 01/26/2025 024, 08/29/2022, 12/14/2020 CKD HGB USE SMARTSET 33867 03/19/202503/19, 02/03/2024, 02/03/2024, Additional history exists DTaP,Tdap,and [...] as of this encounter Visit Diagnoses Diagnosis Need for case management follow-up- Primary documented in this encounter Care Teams Forms Designer Relationship Specialty Start Date End Date Pedro Pablo Gaspar MD [address] [place] [address] PCP - General Family Medicine 10/22/20 documented as of this encounter
--- OUTSIDE RECORDS SUMMARY | 2024-04-25 21:33 | External Medical Summary | Summary of Care ---
Author Name Unknown Organization [facility] Address [address] [place] [address] Phone [phone] Care Team Providers Care Career Services Coordinator Name Role Phone Pedro Pablo Gaspar MD Primary Care Provider [phone] Encounter Details Date Type Department Care Team (Late st Contact Info) Description 04/22/2024 9:15 AM EDT Scheduled Telephone Care Coordination and Integration [address] [place], [place] [phone] Ca Collazo, [facility] Opto Mechanical Technician [address] [place], [place] [phone] Need for case management follow-up* Allergies No known active allergiesdocumented as of this encounter (statuses as of 04/22/2024) Medications Medication Sig Dispensed Refills Start Date End Date Status ONETOUCH VERIO STRP 03/22/2020 Activ e Lancets (ONETOUCH DELICA PLUS [id number]) [facility] 03/22/2020 Active FreeStyle Yulissa 2 [place] DeviceIndications:T ype 2 diabetes mellitus with hemoglobin A1c goal of less than 7.0% ([facility]) Use as directed. 03/07/2021 Active Mupirocin 2 [...] Oral Tablet Extended Release 24 Hour (toPROL XL)Indications:Media Monitor edie systolic heart failure (HCC) Take 1 Tablet by mouth 2 times a day. 60 Tablet 11/23/2023 Active metFORMIN HCl ER 500 MG Oral Tablet Extended Release 24 Hour (Glucophage XR) Take 2 Tablets by mouth in the morning. 60 Tablet 11 11/23/2023 Active Lisinopril 10 MG Oral Tablet (Prinivil)Indicatio ns:Type 2 diabetes mellitus with hemoglobin A1c goal of less than 7.0% ([facility]),HTN, goal below 130/80 Take 1 Tablet by mouth 2 times a day. 60 Tablet 11/23/2023 Active Clopidogrel Bisulfate 75 MG Oral Tablet (pLAVix)Indications :Old [place] (myocardial infarction),History of CVA (cerebrovascular accident) TAKE [...] A1c goal of less than 7.0% ([facility]) TAKE ONE TABLET BY MOUTH IN THE [...] 05/04/2020 HTN, goal below 130/80 03/26/2020 Old [place] (myocardial infarction) 03/26/2020 Dyslipidemia 03/26/2020 Tobacco use [...] AGREEMENT 12/14/2020 Atherosclerotic heart diseas e of [place] coronary artery with other forms of angina [...] as of this encounter Progress Notes * Hilary Cunningham LPN - 04/22/2024 1:09 PM EDT Appt scheduled with pt * Yamel Light OSA - 04/22/2024 10:22 AM EDT Nothing open, please advise to pt * Marisa Oquendo RN - 04/22/2024 10:17 AM EDT Patient requesting an appointment due to dizziness and nausea. Please call patient and assist with scheduling. Thank you. * Ca Collazo [facility] Opto Mechanical Technician - 04/22/2024 9:17 AM EDT Telemedicine visit: No [facility] Opto Mechanical Technician (KIKI) documentation: CHW week 4 f/u call per Abeba Mccurdy RNCM CHW survey completed Dizziness off and on several times a week,that doesn't last. Reports occasional nausea, not with the dizziness Pt reports having to cancel his appointment with Gastro for today due to transportation issues. Electronically signed by Ca Collazo [facility] Opto Mechanical Technician at 04/22/2024 9:23 AM EDT documented in this encounter Plan of Treatment Upcoming Encounters Date Type Department Care Team (Late st Contact Info) Description 04/27/2024 10:00 AM EDT Office Visit Urology, [facility] [address] [place] [address] Kareem Ruano MD [address] [facility] [address] [place] [address] 04/27/2024 12:40 PM EDT Office Visit Family Practice [facility] [address] [place] [address] Pedro Pablo Gaspar MD [address] [place] [address] 05/30/2024 10:10 AM EDT Office Visit Pharmacy, [address] [place] [address] [place] [address] 06/17/2024 12:30 PM EDT Office Visit Gastroenterology [address] [place] [address] Ayala Pacheco, CRISTINA [address] [place] [address] Health Maintenance Due Date Last Done Comments DISCUSS TOBACCO CESSATION (REFER TO SMARTSET #3739) 1970 HIV Screening 1985 Hepatitis C Screening [...] Additional history exists CKD PHOS USE SMARTSET 90107 01/14/2025 01/15/2024, 1 12/12/2022 Albumin/Creatinine Ratio 01/26/2025 024, 08/29/2022, 12/14/2020 CKD HGB USE SMARTSET 60955 03/19/202503/19, 02/03/2024, 02/03/2024, Additional history exists DTaP,Tdap,and [...] Primary documented in this encounter Care Teams Career Services Coordinator Relationship Specialty Start Date End Date Pedro Pablo Gaspar MD [address] [place] [address] PCP - General Family Medicine 10/22/20 documented as of this encounter
--- OUTSIDE RECORDS SUMMARY | 2024-04-25 21:34 | External Medical Summary | Summary of Care ---
Author Name Unknown Organization [facility] Address [address] [place] [address] Phone [phone] Care Team Providers Care Printing Manager Name Role Phone Pedro Pablo Gaspar MD Primary Care Provider [phone] [phone] Encounter Details Date Type Department Care Team (Late st Contact Info) Description 04/01/2024 9:15 AM EDT Scheduled Telephone Care Coordination and Integration [address] [place], [place] [phone] Ca Collazo, [facility] Consultant [address], [place] [phone] Allergies No known active allergiesdocumented as of this encounter (statuses as of 04/01/2024) Medications Medication Sig Dispensed Refills Start Date End Date Status ONETOUCH VERIO STRP 0 03/22/2020 Activ e Lancets (ONETOUCH DELICA PLUS [id number]) MISC 0 03/22/2020 Active FreeStyle Yulissa 2 [place] DeviceIndications:T ype 2 diabetes mellitus with hemoglobin A1c goal of less than 7.0% ([facility]) Use as directed. 0 03/07/2021 Active Mupirocin 2 % External Ointment [...] Oral Tablet Extended Release 24 Hour (toPROL XL)Indications:Copy Writer edie systolic heart failure (HCC) Take 1 [...] of less than 7.0% ([facility]),HTN, goal below 130/80 Take 1 Tablet by mouth 2 times a day. 60 Tablet 11/23/2023 Active Clopidogrel Bisulfate 75 MG Oral Tablet (pLAVix)Indications :Old [place] (myocardial infarction),History of CVA (cerebrovascular accident) TAKE [...] by mouth in the morning. 0 Active Ondansetron HCl 4 MG Oral Tablet Take 1 Tablet by mouth every 8 hours as needed for Nausea. 10 Tablet 0 03/28/2024 Active oxyCODONE HCl 5 MG Oral Tablet (Oxy IR)Indications:Indw elling Rushing catheter present Take 1 Tablet by mouth every 8 hours as needed for Pain, Severe. 30 Tablet 0 03/29/2024 Active rOPINIRole HCl 0.25 MG Oral Tablet (Requip) TAKE ONE TABLET AT BEDTIME 30 Tablet 2 03/31/2024 Active Jardiance 10 MG Oral Tablet (Empagliflozin)Ambreen cations:Type 2 diabetes mellitus with hemoglobin A1c goal of less than 7.0% (HCC) TAKE ONE TABLET BY MOUTH IN THE MORNING 30 Tablet 2 03/31/2024 Active Pantoprazole Sodium 40 MG Oral Tablet Delayed Release (Protonix) Take 1 Tablet by mouth in the morning. 30 Tablet 6 03/30/2024 Active documented as of this encounter (statuses as of 04/01/2024) Active Problems Problem Noted Date Diagnosed Date [...] 05/04/2020 HTN, goal below 130/80 03/26/2020 Old [place] (myocardial infarction) 03/26/2020 Dyslipidemia 03/26/2020 Tobacco use disorder 03/26/2020 History of CVA (cerebrovascular accident) 2019 Type 2 diabetes mellitus wit h hemoglobin A1c goal of less than 7.0% 03/26/2020 Chronic systolic heart failure 03/26/2020 documented as of this encounter (statuses as of 04/01/2024) Resolved Problems Problem Noted Date Diagnosed Date Resolved Date Preoperative general physical examination 02/03/2024 03/29/2024 ETD (Eustachian tube dysfunction), bilateral 2 08/29/2022 GÓMEZ (generalized anxiety disorder) 05/08/2021 10/14/2023 Moderate episode of recurren t major depressive disorder 05/08/2021 10/14/2023 MEDICATION USE AGREEMENT 12/14/2020 Atherosclerotic heart diseas e of [place] coronary artery with other forms of angina pectoris 05/04/2020 08/08/2020 Adjustment disorder with depressed mood 03/26/2020 05/08/2021 Bilateral carotid artery stenosis 03/26/2020 07/06/2020 documented as of this encounter (statuses as of 04/01/2024) Immunizations Name Administration Dates Next Due COVID-19 [...] as of this encounter Progress Notes * Ca Collazo, [facility] Consultant - 04/01/2024 9:16 AM EDT Telemedicine visit: No [facility] Consultant (KIKI) documentation: CHW LAILA week 1 f/u call per RONALD Liu CHW survey completed. Pt reported an episode of dizziness that he lost his balance and fell into the wall, scraping his arm. Pt did not reach out to CM at that time. CHW forwarded information to CM CHW provided pt with contact number for CM and strongly stressed that if anything like the dizziness occurs again he is to reach out to his CM. documented in this encounter Plan of Treatment Upcoming Encounters Date Type Department Care Team (Late st Contact Info) Description 04/19/2024 1:30 PM EDT Office Visit Pharmacy, [address] [place] [address] [place] [address] 04/22/2024 9:00 AM EDT Office Visit Gastroenterology [address] [place] [address] Ayala Pacheco CRNP 132 [facility] [place] [address] 04/27/2024 10:00 AM EDT Office Visit Urology, [facility] 132 [facility] [place] [address] Kareem Ruano MD 27 [facility] [place] [address] [place] [address] Health Maintenance Due Date Last Done Comments DISCUSS TOBACCO CESSATION (REFER TO SMARTSET #8143) 1970 HIV Screening 1985 Hepatitis C Screening [...] Additional history exists CKD PHOS USE SMARTSET 97119 01/14/2025 01/15/2024, 1 12/12/2022 Albumin/Creatinine Ratio 01/26/2025 024, 08/29/2022, 12/14/2020 CKD HGB USE SMARTSET 15819 03/19/202503/19, 02/03/2024, 02/03/2024, Additional history exists DTaP,Tdap,and [...] filedocumented as of this encounter Care Teams Printing Manager Relationship Specialty Start Date End Date Pedro Pablo Gaspar MD 132 [facility] [place] [address] PCP - General Family Medicine 10/22/20 documented as of this encounter
--- OUTSIDE RECORDS SUMMARY | 2024-04-25 21:34 | External Medical Summary | Summary of Care ---
Author Name Unknown Organization [facility] Address [address] [place] [address] Phone [phone] Care Team Providers Care Blog Writer Name Role Phone Pedro Pablo Gaspar MD Primary Care Provider [phone] [phone] Encounter Details Date Type Department Care Team (Late st Contact Info) Description 04/22/2024 9:15 AM EDT Scheduled Telephone Care Coordination and Integration [address] [place], [place] [phone] Ca Collazo, [facility] Cow Tender [address] [place], [place] [phone] Need for case management follow-up* Allergies No known active allergiesdocumented as of this encounter (statuses as of 04/22/2024) Medications Medication Sig Dispensed Refills Start Date End Date Status ONETOUCH VERIO STRP 03/22/2020 Activ e Lancets (ONETOUCH DELICA PLUS [id number]) [facility] 03/22/2020 Active FreeStyle Yulissa 2 [place] DeviceIndications:T ype 2 diabetes mellitus with hemoglobin A1c goal of less than 7.0% ([facility]) Use as directed. 03/07/2021 Active Mupirocin 2 [...] Oral Tablet Extended Release 24 Hour (toPROL XL)Indications:Tire And Lube Technician edie systolic heart failure (HCC) Take 1 Tablet by mouth 2 times a day. 60 Tablet 11/23/2023 Active metFORMIN HCl ER 500 MG Oral Tablet Extended Release 24 Hour (Glucophage XR) Take 2 Tablets by mouth in the morning. 60 Tablet 11 11/23/2023 Active Lisinopril 10 MG Oral Tablet (Prinivil)Indicatio ns:Type 2 diabetes mellitus with hemoglobin A1c goal of less than 7.0% ([facility]),HTN, goal below 130/80 Take 1 Tablet by mouth 2 times a day. 60 Tablet 11/23/2023 Active Clopidogrel Bisulfate 75 MG Oral Tablet (pLAVix)Indications :Old [place] (myocardial infarction),History of CVA (cerebrovascular accident) TAKE [...] hemoglobin A1c goal of less than 7.0% ([facility]) TAKE ONE TABLET BY MOUTH IN THE [...] below 130/80 03/26/2020 Old [place] (myocardial infarction) 03/26/2020 Dyslipidemia 03/26/2020 Tobacco use [...] AGREEMENT 12/14/2020 Atherosclerotic heart diseas e of [place] coronary artery with other forms of angina [...] with scheduling. Thank you. * Ca Collazo [facility] Health Cow Tender - 04/22/2024 9:17 AM EDT Telemedicine visit: No Community [facility] Cow Tender (KIKI) documentation: CHW week 4 f/u call per Abeba Mccurdy RNCM CHW survey completed Dizziness off and on several times a week,that doesn't last. Reports occasional nausea, not with the dizziness Pt reports having to cancel his appointment with Gastro for today due to transportation issues. Electronically signed by Ca Collazo [facility] Health Cow Tender at 04/22/2024 9:23 AM EDT documented in this encounter Plan of Treatment Upcoming Encounters Date Type Department Care Team (Late st Contact Info) Description 04/27/2024 10:00 AM EDT Office Visit Urology, [facility] [address] [facility] [place] [address] Kareem Ruano MD [address] [place] [address] [place] [address] 05/30/2024 10:10 AM EDT Office Visit Pharmacy, [address] [place] [address] [place] [address] 06/17/2024 12:30 PM EDT Office Visit Gastroenterology [address] [place] [address] Ayala Pacheco CRNP [address] [place] [address] Health Maintenance Due Date Last Done Comments DISCUSS TOBACCO CESSATION (REFER TO SMARTSET #7581) 1970 HIV Screening 1985 Hepatitis C Screening [...] Additional history exists CKD PHOS USE SMARTSET 57236 01/14/2025 01/15/2024, 1 12/12/2022 Albumin/Creatinine Ratio 01/26/2025 024, 08/29/2022, 12/14/2020 CKD HGB USE SMARTSET 36134 03/19/202503/19, 02/03/2024, 02/03/2024, Additional history exists DTaP,Tdap,and [...] Primary documented in this encounter Care Teams Blog Writer Relationship Specialty Start Date End Date Pedro Pablo Gaspar MD [address] [place] [address] PCP - General Family Medicine 10/22/20 documented as of this encounter
--- OUTSIDE RECORDS SUMMARY | 2024-04-25 21:34 | External Medical Summary | Summary of Care ---
Author Name Unknown Organization [facility] Address [address] [facility] [place] [address] Phone [phone] Care Team Providers Care Pulpit Operator Name Role Phone Pedro Pablo Gaspar MD Primary Care Provider [phone] [phone] Encounter Details Date Type Department Care Team (Late st Contact Info) Description 03/29/2024 11:40 AM EDT Immunization Pharmacy, [facility] 132 [facility] [place] [address] [place] [address] Vaccine Pharmacy [facility] 132 [place] [address] Arrived Allergies No known active allergiesdocumented as of this encounter (statuses as of 03/29/2024) Medications Medication Sig Dispensed Refills Start Date End Date Status ONETOUCH VERIO STRP 0 03/22/2020 Activ e Lancets (ONETOUCH DELICA PLUS [id number]) MISC 0 03/22/2020 Active FreeStyle Yulissa 2 [place] DeviceIndications:T ype 2 diabetes mellitus with hemoglobin A1c goal of less than 7.0% ([facility]) Use as directed. 0 03/07/2021 Active Mupirocin [...] Oral Tablet Extended Release 24 Hour (toPROL XL)Indications:Coper Hand edie systolic heart failure (HCC) Take 1 [...] Bisulfate 75 MG Oral Tablet (pLAVix)Indications :Old [place] (myocardial infarction),History of CVA (cerebrovascular accident) TAKE [...] directed to check blood sugar 3 Each 01/13/2024 Active Empagliflozin 10 MG Oral Tablet (Jardiance)Indicati ons:Type 2 diabetes mellitus with hemoglobin A1c goal of less than 7.0% (HCC) Take 1 Tablet by mouth in [...] Pain, Severe. 30 Tablet 0 03/29/2024 Active Comirnaty 30 MCG/0.3ML Intramuscular Suspension Prefilled Syringe (COVID-19 mRNA Vac-Asif(Haier)) Inject into a large muscle as directed 0.3 mL 0 03/29/2024 Discontinue d(Medicatio n List Clean Up) documented as of this encounter (statuses as of 03/29/2024) Active Problems Problem Noted Date Diagnosed Date [...] as of this encounter (statuses as of 03/29/2024) Resolved Problems Problem Noted Date Diagnosed Date Resolved Date Preoperative general physical examination 02/03/2024 03/29/2024 ETD (Eustachian tube dysfunction), bilateral 08/29/2022 GÓMEZ (generalized anxiety disorder) 05/08/2021 10/14/2023 Moderate episode of recurren t major depressive disorder 05/08/2021 10/14/2023 MEDICATION USE AGREEMENT 12/14/2020 Atherosclerotic heart diseas e of [place] coronary artery with other forms of angina pectoris 05/04/2020 08/08/2020 Adjustment disorder with depressed mood 03/26/2020 05/08/2021 Bilateral carotid artery stenosis 03/26/2020 07/06/2020 documented as of this encounter (statuses as of 03/29/2024) Immunizations Name Administration Dates Next Due COVID-19 mRNA, LNP-s, No Pre serve, 2-Dose Series (Haier) 04/06/2021,03/16/2021 COVID-19, MRNA-LNP, 23-24, P F, 30 MCG/0.3 mL, 12 YRS AND ABOVE, IM ([employer]-ComirnatTBS) 03/29/2024 Hepatitis B, 20+ yrs 12/14/2020,05/04/2020 Pneumococcal [...] 04/22/2024 9:00 AM EDT Office Visit Gastroenterology [address] [place] [address] Ayala Pacheco CRNP [address] [place] [address] 04/27/2024 10:00 AM EDT Office Visit Urology, [facility] [address] [place] [address] Kareem Ruano MD 27 [facility] [address] [place] [address] Health Maintenance Due Date Last Done Comments DISCUSS TOBACCO CESSATION (REFER TO SMARTSET #0279) 1970 HIV Screening 1985 Hepatitis C Screening [...] 02/11/2022, Additional history exists GFR 09/19/2024 03/19/2024, 03, 01/15/2024, Additional history exists CKD PHOS USE SMARTSET 90477 01/14/2025 01/15/2024, 1 12/12/2022 Albumin/Creatinine Ratio 01/26/2025 024, 08/29/2022, 12/14/2020 CKD HGB USE SMARTSET 78544 03/19/202503/19, 02/03/2024, 02/03/2024, Additional history exists DTaP,Tdap,and [...] filedocumented as of this encounter Care Teams Pulpit Operator Relationship Specialty Start Date End Date Pedro Pablo Gaspar MD 132 [facility] [place] [address] PCP - General Family Medicine 10/22/20 documented as of this encounter
--- OUTSIDE RECORDS SUMMARY | 2024-04-25 21:34 | External Medical Summary | Summary of Care ---
Author Name Unknown Organization [facility] Address [address] [place] [address] Phone [phone] Care Team Providers Care Clinical Laboratory Aides Teacher Name Role Phone Pedro Pablo Gaspar MD Primary Care Provider [phone] [phone] Encounter Details Date Type Department Care Team (Late st Contact Info) Description 04/22/2024 9:15 AM EDT Scheduled Telephone Care Coordination and Integration [address] [place], [place] [phone] Ca Collazo, [facility] Roof Promenade Tile Setter [address] [place], [place] [phone] Need for case management follow-up* Allergies No known active allergiesdocumented as of this encounter (statuses as of 04/22/2024) Medications Medication Sig Dispensed Refills Start Date End Date Status ONETOUCH VERIO STRP 03/22/2020 Activ e Lancets (ONETOUCH DELICA PLUS [id number]) [facility] 03/22/2020 Active FreeStyle Yulissa 2 [place] DeviceIndications:T ype 2 diabetes mellitus with hemoglobin A1c goal of less than 7.0% ([facility]) Use as directed. 03/07/2021 Active Mupirocin 2 [...] Oral Tablet Extended Release 24 Hour (toPROL XL)Indications:Video Game Creator edie systolic heart failure (HCC) Take 1 Tablet by mouth 2 times a day. 60 Tablet 11/23/2023 Active metFORMIN HCl ER 500 MG Oral Tablet Extended Release 24 Hour (Glucophage XR) Take 2 Tablets by mouth in the morning. 60 Tablet 11 11/23/2023 Active Lisinopril 10 MG Oral Tablet (Prinivil)Indicatio ns:Type 2 diabetes mellitus with hemoglobin A1c goal of less than 7.0% ([facility]),HTN, goal below 130/80 Take 1 Tablet by mouth 2 times a day. 60 Tablet 11/23/2023 Active Clopidogrel Bisulfate 75 MG Oral Tablet (pLAVix)Indications :Old [place] (myocardial infarction),History of CVA (cerebrovascular accident) TAKE [...] hemoglobin A1c goal of less than 7.0% ([facility]) TAKE ONE TABLET BY MOUTH IN THE [...] 05/04/2020 HTN, goal below 130/80 03/26/2020 Old [place] (myocardial infarction) 03/26/2020 Dyslipidemia 03/26/2020 Tobacco use [...] AGREEMENT 12/14/2020 Atherosclerotic heart diseas e of [place] coronary artery with other forms of angina [...] as of this encounter Progress Notes * Marisa Oquendo RN - 04/22/2024 10:17 AM EDT Patient requesting an appointment due to dizziness and nausea. Please call patient and assist with scheduling. Thank you. * Ca Collazo [facility] Roof Promenade Tile Setter - 04/22/2024 9:17 AM EDT Telemedicine visit: No [facility] Roof Promenade Tile Setter (KIKI) documentation: CHW week 4 f/u call per Abeba cMcurdy RNCM CHW survey completed Dizziness off and on several times a week,that doesn't last. Reports occasional nausea, not with the dizziness Pt reports having to cancel his appointment with Gastro for today due to transportation issues. documented in this encounter Plan of Treatment Upcoming Encounters Date Type Department Care Team (Late st Contact Info) Description 04/27/2024 10:00 AM EDT Office Visit Urology, [facility] [address] [place] [address] Kareem Ruano MD 27 [facility] [address] [place] [address] 05/30/2024 10:10 AM EDT Office Visit Pharmacy, [address] [place] [address] [place] [address] 06/17/2024 12:30 PM EDT Office Visit Gastroenterology [address] [place] [address] Ayala Pacheco CRNP [address] [place] [address] Health Maintenance Due Date Last Done Comments [...] Additional history exists CKD PHOS USE SMARTSET 29209 01/14/2025 01/15/2024, 1 12/12/2022 Albumin/Creatinine Ratio 01/26/2025 024, 08/29/2022, 12/14/2020 CKD HGB USE SMARTSET 20601 03/19/202503/19, 02/03/2024, 02/03/2024, Additional history exists DTaP,Tdap,and [...] Primary documented in this encounter Care Teams Clinical Laboratory Aides Teacher Relationship Specialty Start Date End Date Pedro Pablo Gaspar MD 132 [place] [address] PCP - General Family Medicine 10/22/20 documented as of this encounter
--- OUTSIDE RECORDS SUMMARY | 2024-04-25 21:34 | External Medical Summary | Summary of Care ---
Author Name Unknown Organization [facility] Address [address] [place] [address] Phone [phone] Care Team Providers Care Pipelines Supervisor Name Role Phone Pedro Pablo Gaspar MD Primary Care Provider [phone] [phone] Encounter Details Date Type Department Care Team (Late st Contact Info) Description 04/15/2024 10:30 AM EDT Scheduled Telephone Care Coordination and Integration [address] [place], [place] [phone] Ca Collazo, [facility] Senior Mortgage Underwriter [address], [place] [phone] Allergies No known active allergiesdocumented as of this encounter (statuses as of 04/15/2024) Medications Medication Sig Dispensed Refills Start Date End Date Status ONETOUCH VERIO STRP 03/22/2020 Activ e Lancets (ONETOUCH DELICA PLUS [id number]) [facility] 03/22/2020 Active FreeStyle Yulissa 2 [place] DeviceIndications:T ype 2 diabetes mellitus with hemoglobin A1c goal of less than 7.0% ([facility]) Use as directed. 03/07/2021 Active Mupirocin 2 % External Ointment (Bactroban) Apply topically to affected area 2 times a day. 10/12/2023 Active Furosemide 20 MG Oral Tablet (Lasix) Take 0.5 Tablets by mouth in the morning. 09/30/2023 Active Tamsulosin HCl 0.4 MG Oral Capsule (Flomax)Indications :Urinary retention,History of pulmonary embolism Take 1 Capsule by mouth in the morning. 30 Capsule 5 11/23/2023 Active Spironolactone 25 MG Oral Tablet (Aldactone)Indicati ons:Chronic systolic heart failure (HCC) Take 1 Tablet by mouth in the morning. 30 Tablet 11/23/2023 Active Metoprolol Succinate ER 25 MG Oral Tablet Extended Release 24 Hour (toPROL XL)Indications:Data Entry Supervisor edie systolic heart failure (HCC) Take 1 Tablet by mouth 2 times a day. 60 Tablet 11/23/2023 Active metFORMIN HCl ER 500 MG Oral Tablet Extended Release 24 Hour (Glucophage XR) Take 2 Tablets by mouth in the morning. 60 Tablet 11/23/2023 Active Lisinopril 10 MG Oral Tablet (Prinivil)Indicatio ns:Type 2 diabetes mellitus with hemoglobin A1c goal of less than 7.0% ([facility]),HTN, goal below 130/80 Take 1 Tablet [...] TAKE ONE TABLET AT BEDTIME 30 Tablet 03/31/2024 Active Jardiance 10 MG Oral Tablet (Empagliflozin)Ambreen cations:Type 2 diabetes mellitus with hemoglobin A1c goal of less than 7.0% ([facility]) TAKE ONE TABLET BY MOUTH IN [...] as of this encounter (statuses as of 04/15/2024) Active Problems Problem Noted Date Diagnosed Date [...] as of this encounter (statuses as of 04/15/2024) Resolved Problems Problem Noted Date Diagnosed Date Resolved Date Preoperative general physical examination 02/03/2024 03/29/2024 ETD (Eustachian tube dysfunction), bilateral 2 08/29/2022 GÓMEZ (generalized anxiety disorder) 05/08/2021 10/14/2023 Moderate episode of recurren t major depressive disorder 05/08/2021 10/14/2023 MEDICATION USE AGREEMENT 12/14/2020 Atherosclerotic heart diseas e of [place] coronary artery with other forms of angina pectoris 05/04/2020 08/08/2020 Adjustment disorder with depressed mood 03/26/2020 05/08/2021 Bilateral carotid artery stenosis 03/26/2020 07/06/2020 documented as of this encounter (statuses as of 04/15/2024) Immunizations Name Administration Dates Next Due COVID-19 [...] Progress Notes * Ca Collazo, [facility] Senior Mortgage Underwriter - 04/15/2024 10:06 AM EDT Telemedicine visit: No [facility] Senior Mortgage Underwriter (KIKI) documentation: CHW f/u call week 3 per Abeba Mccurdy RNCM Pt. Continues to have some dizziness, not as bad as it was. Denies any falls CHW survey completed Confirmed pt had contact info for CM documented in this encounter Plan of Treatment Upcoming Encounters Date Type Department Care Team (Late st Contact Info) Description 04/19/2024 1:30 PM EDT Office Visit Pharmacy, [address] [place] [address] [place] [address] 04/22/2024 9:00 AM EDT Office Visit Gastroenterology [address] [place] [address] Ayala Pacheco CRNP 132 [facility] [place] [address] 04/27/2024 10:00 AM EDT Office Visit Urology, [facility] 132 [facility] [place] [address] Kareem Ruano MD 27 [facility] [address] [place] [address] Health Maintenance Due [...] Additional history exists CKD PHOS USE SMARTSET 82834 01/14/2025 01/15/2024, 1 12/12/2022 Albumin/Creatinine Ratio 01/26/2025 024, 08/29/2022, 12/14/2020 CKD HGB USE SMARTSET 72124 03/19/202503/19, 02/03/2024, 02/03/2024, Additional history exists DTaP,Tdap,and [...] filedocumented as of this encounter Care Teams Pipelines Supervisor Relationship Specialty Start Date End Date Pedro Pablo Gaspar MD 132 [place] [address] PCP - General Family Medicine 10/22/20 documented as of this encounter
--- OUTSIDE RECORDS SUMMARY | 2024-04-25 21:34 | External Medical Summary | Summary of Care ---
Author Name Unknown Organization [facility] Address [address] [place] [address] Phone [phone] Care Team Providers Care Broadcast Systems Engineer Name Role Phone Pedro Pablo Gapsar MD Primary Care Provider [phone] [phone] Encounter Details Date Type Department Care Team (Late st Contact Info) Description 03/31/2024 1:30 PM EDT Home Visit Care Coordination and Integration [address] [place] [address] Mindy Mckeon [facility] [address] [place] [address] Allergies No known active allergiesdocumented as of this encounter (statuses as of 04/01/2024) Medications Medication Sig Dispensed Refills Start Date End Date Status ONETOUCH VERIO STRP 0 03/22/2020 Activ e Lancets (ONETOUCH DELICA PLUS [id number]) MISC 0 03/22/2020 Active FreeStyle Yulissa 2 Evans DeviceIndications:T ype 2 diabetes mellitus with hemoglobin A1c goal of less than 7.0% ([facility]) Use as directed. 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 60 Tablet 11/23/2023 Active metFORMIN HCl ER 500 MG Oral Tablet Extended Release 24 Hour (Glucophage XR) Take 2 Tablets by mouth in the morning. 60 Tablet 11/23/2023 Active Lisinopril 10 MG Oral Tablet (Prinivil)Indicatio ns:Type 2 diabetes mellitus with hemoglobin A1c goal of less than 7.0% ([facility]),HTN, goal below 130/80 Take 1 Tablet by mouth 2 times a day. 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 First CVA in 2019 - treated at [facility] and has followed up there for recent TIAs. Left side affected. Patient reports worsening deficit. No family contacts. Some friends in the area. Reports having a brother, but lost contact in 2020. Reports DM diagnosis within recent years. Has [facility] home health following for OT. States RN comes in "and they change cath every once in awhile". Observed 1000 ML yellow urine in collection bag. Bag is secured around patient's ankle and dragging on the floor. Advised patient bag should be emptied when half full, and kept below the waist but nottouching the floor, to prevent bag from overflowing or breaking. Patient verbalized understanding. Patient states he is able to empty bag on his own. His only issue is with buttoning the leg strap, which is why it is hanging low on his leg. Advised patient there may be other options that dont require such dexterity to secure the strap. Patient states he purchased the leg bags off [employer] because insurance would only pay for so many. States [facility] home health nurse manages catheter care and supplies foleys. Stumbled and fell into shelf of dentaZOOM last night when he became dizzy walking from the living area to kitchen last evening. Denies vision changes or feeling lightheaded. States dizziness is occasional. Patient is an avid cigarette smoker. Blended CM through [employer] [place]. Also working with Peer support through [employer]. She makes home visits, and is helping create a will, as he has no official next of kin. Patient reports landlord approached him about this out ofconcern for the large amount of belongings patient has, should he pass unexpectedly. Thinks he had medical assistance, but was disqualified due to his income.Spoke with Rhea Ruano at the [place] in [employer] about reapplying for MA. Contact info: [phone] ext [phone] Patient tech savvy - has groceries delivered signed up for delivery apps like [employer]. His medicines are delivered from [facility] monthly in pill packs pill pack, except for furosemide is on med list. States he uses [facility] for medical appts. Occasionally [employer] or [place] [employer] will drive him to the store. Patient is trying to buy a vehicle- states he cannot drive but he has a friendwho would be willing to drive him. Recently purchased an upright Segway and a Segway go kart online. Says he is going to ask landlords fitting room maintenance mechanic to help set them up. He is unsure if he can use the go kart on the sidewalk or on the road. Advise patient it is likely not street legal. Living area is cluttered however, there is a clear path to walk through the home. 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 Has multiple guitars on shelves lining the walkway from living area to kitchen. The walkway is clear, but narrow. Patient keeps frequently used objects within reach, which creates s omewhat of a clutter on surfaces such as counters and kitchen table. Bathroom floor is clear and walkway is open. Has walk-in shower with bench. Offered to check vital signs. Patient declined. Mindy Mckeon Community Health Worker documented in this encounter Plan of Treatment Upcoming Encounters Date Type Department Care Team (Late st Contact Info) Description 04/19/2024 1:30 PM EDT Office Visit Pharmacy, [address] [place] [address] [place] [address] 04/22/2024 9:00 AM EDT Office Visit Gastroenterology [address] [place] [address] Ayala Pacheco CRNP [address] [facility] [place] [address] 04/27/2024 10:00 AM EDT Office Visit Urology, [facility] [address] [place] [address] Kareem Ruano MD 27 [facility] [place] [address] [place] [address] Health Maintenance Due Date Last Done Comments DISCUSS TOBACCO CESSATION (REFER TO SMARTSET #4431) 1970 HIV Screening 1985 Hepatitis C Screening [...] Additional history exists CKD PHOS USE SMARTSET 29157 01/14/2025 01/15/2024, 1 12/12/2022 Albumin/Creatinine Ratio 01/26/2025 024, 08/29/2022, 12/14/2020 CKD HGB USE SMARTSET 36279 03/19/202503/19, 02/03/2024, 02/03/2024, Additional history exists DTaP,Tdap,and [...] filedocumented as of this encounter Care Teams Broadcast Systems Engineer Relationship Specialty Start Date End Date Pedro Pablo Gaspar MD [address] [place] [address] PCP - General Family Medicine 10/22/20 documented as of this encounter
--- OUTSIDE RECORDS SUMMARY | 2024-04-25 21:34 | External Medical Summary ---
Author Name Unknown Address Unknown Organization K0G:[facility] [place] [address] [place] [id number] Laboratory Report Ordering Provider Test Date Status HERRERA GARCIA 03/19/2024 09:19:58 Final Observation Date Value Abnormality Reference (Units ) Status WBC, Total 03/19/2024 09:19:58 10.64 4.00-10.8 0 (K/uL) Final RBC 03/19/2024 09:19:58 4.13 4.50-5.25 (M/uL) Final Hemoglobin 03/19/2024 09:19:58 10.6 Below low normal 14 .0-16.8 (g/dL) Final HCT 03/19/2024 09:19:58 32.7 Below low normal 40. 0-48.4 (%) Final MCV 03/19/2024 09:19:58 79.2 82.0-99.5 (fL) Final MCH 03/19/2024 09:19:58 25.7 27.0-34.0 (pg) Final MCHC 03/19/2024 09:19:58 32.4 32.0-36.0 (g/dL) Final RDW 03/19/2024 09:19:58 18.2 11.5-15.5 (%) Final Platelets 03/19/2024 09:19:58 271 140-400 (K /uL) Final MPV 03/19/2024 09:19:58 10.3 6.6-11.1 ( fL) Final Performing Location [facility] [place] [address] [place] [id number]
--- OUTSIDE RECORDS SUMMARY | 2024-04-25 21:34 | External Medical Summary | Summary of Care ---
Author Name Unknown Organization [facility] Address [address] [facility] [place] [address] Phone [phone] Care Team Providers Care Boarding Specialist Name Role Phone Shira Blackman MD Primary Care Provider [phone] Reason for Visit * Reason Onset Date Comments Medication Refill 03/28/2024 Encounter Details Date Type Department Care Team (Late st Contact Info) Description 03/28/2024 Refill Family Practice [facility] [address] [place] [address] Shira Blackman MD [address] [facility] [place] [id number] Allergies No known active allergiesdocumented as of this encounter (statuses as of 03/28/2024) Medications Medication Sig Dispensed Refills Start Date End Date Status ONETOUCH VERIO STRP 0 03/22/2020 Activ e Lancets (ONETOUCH DELICA PLUS [id number]) MISC 0 03/22/2020 Active FreeStyle Yulissa 2 [place] DeviceIndications:T ype 2 diabetes mellitus with hemoglobin A1c goal of less than 7.0% ([facility]) Use as directed. 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 60 Tablet 11/23/2023 Active metFORMIN HCl ER 500 MG Oral Tablet Extended Release 24 Hour (Glucophage XR) Take 2 Tablets by mouth in the morning. 60 Tablet 11/23/2023 Active Lisinopril 10 MG Oral Tablet (Prinivil)Indicatio ns:Type 2 diabetes mellitus with hemoglobin A1c goal of less than 7.0% ([facility]),HTN, goal below 130/80 Take 1 Tablet by [...] A1c goal of less than 7.0% ([facility]) Take 1 Tablet by mouth in the [...] for Nausea. 10 Tablet 0 03/28/2024 Active documented as of this encounter (statuses as of 03/28/2024) Active Problems Problem Noted Date Diagnosed Date [...] as of this encounter (statuses as of 03/28/2024) Resolved Problems Problem Noted Date Diagnosed Date Resolved Date ETD (Eustachian tube dysfunction), bilateral 2 08/29/2022 GÓMEZ (generalized anxiety disorder) 05/08/2021 10/14/2023 Moderate episode of recurren t major depressive disorder 05/08/2021 10/14/2023 MEDICATION USE AGREEMENT 12/14/2020 Atherosclerotic heart diseas e of [place] coronary artery with other forms of angina pectoris 05/04/2020 08/08/2020 Adjustment disorder with depressed mood 03/26/2020 05/08/2021 Bilateral carotid artery stenosis 03/26/2020 07/06/2020 documented as of this encounter (statuses as of 03/28/2024) Immunizations Name Administration Dates Next Due COVID-19 [...] Telephone Encounter - Shira Blackman MD - 03/28/2024 4:34 PM EDTSigned Prescriptions: Disp Refills Ondansetron HCl 4 MG Oral Tablet 10 Tab*0 Sig: Take 1 Tablet by mouth every 8 hours as needed for Nausea. Authorizing Provider: SHIRA BLACKMAN * Telephone Encounter - Abeba Mccurdy RN - 03/28/2024 4:17 PM EDT Patient would like a script for Zofran for nausea following his recent hospitalization. He is not vomiting, no longer having black/tarry stools. Pended if appropriate, Dr. Blackman? Thank you documented in this encounter Plan of Treatment Upcoming Encounters Date Type Department Care Team (Late st Contact Info) Description 03/29/2024 11:00 AM EDT Office Visit Family Practice [facility] [address] [place] [address] Shira Blackman MD [address] [place] [address] 04/22/2024 9:00 AM EDT Office Visit Gastroenterology [address] [place] [address] Ayala Pacheco CRNP [address] [place] [address] 04/27/2024 10:00 AM EDT Office Visit Urology, [facility] [address] [place] [address] Kareem Ruano MD [facility] [address] [place] [address] Health Maintenance Due Date Last Done Comments DISCUSS TOBACCO CESSATION (REFER TO SMARTSET #6924) 1970 HIV Screening 1985 Hepatitis C Screening [...] Additional history exists COVID-19 Vaccine (3 - 2022- season) 2023 04/06/2021, 03/16/2021 HbA1c 07/17/2024 01/15/2024, 08/16, 02/11/2022, Additional history exists GFR 09/19/2024 03/19/2024, 01/15, 01/15/2024, Additional history exists CKD PHOS USE SMARTSET 88215 01/14/2025 01/15/2024, 1 12/12/2022 Albumin/Creatinine Ratio 01/26/2025 024, 08/29/2022, 12/14/2020 CKD HGB USE SMARTSET 24040 03/19/202503/19, 02/03/2024, 02/03/2024, Additional history exists DTaP,Tdap,and [...] filedocumented as of this encounter Care Teams Boarding Specialist Relationship Specialty Start Date End Date Shira Blackman MD [address] [place] [address] PCP - General Family Medicine 10/22/20 documented as of this encounter
--- OUTSIDE RECORDS SUMMARY | 2024-04-25 21:34 | External Medical Summary | Summary of Care ---
Author Name Unknown Organization [facility] Address [address] [facility] [place] [address] Phone [phone] Care Team Providers Care Credit And Collections Analyst Name Role Phone Shira Blackman MD Primary Care Provider [phone] [phone] Reason for Visit * Reason Onset Date Comments Medication Refill 03/30/2024 Encounter Details Date Type Department Care Team (Late st Contact Info) Description 03/30/2024 Refill Family Practice [facility] [address] [place] [address] [facility] [place] [address] Allergies No known active allergiesdocumented as of this encounter (statuses as of 03/30/2024) Medications Medication Sig Dispensed Refills Start Date End Date Status ONETOUCH VERIO STRP 0 03/22/2020 Active Lancets (ONETOUCH DELICA PLUS [id number]) MISC 0 03/22/2020 Active FreeStyle Yulissa 2 [employer] DeviceIndication s:Type 2 diabetes mellitus with hemoglobin A1c goal of less than 7.0% ([facility]) Use as directed. 0 03/07/2021 [...] hemoglobin A1c goal of less than 7.0% ([facility]),HTN, goal below 130/80 Take 1 Tablet by mouth 2 times a day. 60 Tablet 11/23/2023 Active Clopidogrel Bisulfate 75 MG Oral Tablet (pLAVix)Indicati ons:Old [place] (myocardial infarction),Hist ory of CVA (cerebrovascular accident) [...] 01/13/2024 Active Empagliflozin 10 MG Oral Tablet (Jardiance)Indic ations:Type 2 diabetes mellitus with hemoglobin A1c goal of less than 7.0% ([facility]) Take 1 Tablet by mouth in the [...] Pain, Severe. 30 Tablet 0 03/29/2024 Active Pantoprazole Sodium 40 MG Oral Tablet Delayed Release (Protonix) Take 1 Tablet by mouth in the morning. 30 Tablet 6 03/30/2024 Active Pantoprazole Sodium 40 MG Oral Tablet Delayed Release (Protonix) Take 1 Tablet by mouth in the morning. 0 03/30/2024 Discontinued (Refill) documented as of this encounter (statuses as of 03/30/2024) Active Problems Problem Noted Date Diagnosed Date [...] 05/04/2020 HTN, goal below 130/80 03/26/2020 Old [place] (myocardial infarction) 03/26/2020 Dyslipidemia 03/26/2020 Tobacco use disorder 03/26/2020 History of CVA (cerebrovascular accident) 2019 Type 2 diabetes mellitus wit h hemoglobin A1c goal of less than 7.0% 03/26/2020 Chronic systolic heart failure 03/26/2020 documented as of this encounter (statuses as of 03/30/2024) Resolved Problems Problem Noted Date Diagnosed Date Resolved Date Preoperative general physical examination 02/03/2024 03/29/2024 ETD (Eustachian tube dysfunction), bilateral 2 08/29/2022 GÓMEZ (generalized anxiety disorder) 05/08/2021 10/14/2023 Moderate episode of recurren t major depressive disorder 05/08/2021 10/14/2023 MEDICATION USE AGREEMENT 12/14/2020 Atherosclerotic heart diseas e of [place] coronary artery with other forms of angina pectoris 05/04/2020 08/08/2020 Adjustment disorder with depressed mood 03/26/2020 05/08/2021 Bilateral carotid artery stenosis 03/26/2020 07/06/2020 documented as of this encounter (statuses as of 03/30/2024) Immunizations Name Administration Dates Next Due COVID-19 mRNA, LNP-s, No Pre serve, 2-Dose Series (FromUs) 04/06/2021,03/16/2021 COVID-19, MRNA-LNP, 23-24, P F, 30 MCG/0.3 mL, 12 YRS AND ABOVE, IM ([employer] [place] (MCT[facility]: [place])) 03/29/2024 Hepatitis B, 20+ yrs 12/14/2020,05/04/2020 Pneumococcal [...] Telephone Encounter - Shira Blackman MD - 03/30/2024 10:21 AM EDTSigned Prescriptions: Disp Refills Pantoprazole Sodium 40 MG Oral Tablet Lucinda*30 Tab*6 Sig: Take 1 Tablet by mouth in the morning. Authorizing Provider: SHIRA BLACKMAN * Telephone Encounter - Abeba Mccurdy RN - 03/30/2024 9:[address] Blackman, Patient was not sent this at discharge, Pended for refill. Thank you documented in this encounter Plan of Treatment Upcoming Encounters Date Type Department Care Team (Late st Contact Info) Description 04/01/2024 9:15 AM EDT Scheduled Telephone Care Coordination and Integration [address] [place] [address] Ca Collazo, Community Health Sales Representative [employer] [address] [place] [address] 04/22/2024 9:00 AM EDT Office Visit Gastroenterology [address] [place] [address] Ayala Pacheco CRNP [address] [place] [address] 04/27/2024 10:00 AM EDT Office Visit Urology, [facility] [address] [place] [address] Kareem Ruano MD 27 [facility] [place] [address] [place] [address] Health Maintenance Due Date Last Done Comments DISCUSS TOBACCO CESSATION (REFER TO SMARTSET #1283) 1970 HIV Screening 1985 Hepatitis C Screening [...] Additional history exists CKD PHOS USE SMARTSET 63560 01/14/2025 01/15/2024, 1 12/12/2022 Albumin/Creatinine Ratio 01/26/2025 024, 08/29/2022, 12/14/2020 CKD HGB USE SMARTSET 60671 03/19/202503/19, 02/03/2024, 02/03/2024, Additional history exists DTaP,Tdap,and [...] filedocumented as of this encounter Care Teams Credit And Collections Analyst Relationship Specialty Start Date End Date Shira Blackman MD [address] [place] [address] PCP - General Family Medicine 10/22/20 documented as of this encounter
--- OUTSIDE RECORDS SUMMARY | 2024-04-25 21:34 | External Medical Summary | Summary of Care ---
Author Name Unknown Organization [facility] Address [address] [place] [address] Phone [phone] Care Team Providers Care Aegis Console Operator Track Name Role Phone Pedro Pablo Gaspar MD Primary Care Provider [phone] Reason for Referral * Evaluate & Treat - Unlimited Visits (Within 10 days (routine)) - Authorized Specialty Diagnoses / Procedures Referred By Contac t Referred To Contact Pharmacist / Pharmacy Diagnoses Type 2 diabetes mellitus with hemoglobin A1c goal of less than 7.0% ([facility]) Pedro Pablo Gaspar MD [address] [place] [address] Referral ID Status Reason Start Date Expiration Date Visits Requested Visits Authorized [id number] Authorized Specialty Services Required 03/29/2024 99 99 Question Answer Referral Priority Within 10 days (routine) Where should this appointment be scheduled? [facility] Referring Provider Role: Primary Care Reason for Referral: DM Target A1c: < 7 Comments Pharmacist Medication Therapy Management: Minimum frequency patient should be seen in person for medication management: as appropriate per clinical condition and patient status By my signature, I understand that my patient Deyvi Bansal will have his medication therapy managed by the [facility] ([facility]) per established policies, procedures, and protocols. I also certify that this referral may serve as an initiation of service for the management of drug therapy in the above noted patient. [facility] providers will be responsible for scheduling patient visits, obtaining appropriate laboratory studies, and adjusting medication management therapy per patient's need, in addition to those roles spelled out in the clinic policy, procedures, and drug management protocols. I understand that the service provided by the [facility] Clinic is voluntary and have informed patient that they can refuse the service at their discretion. I am aware that the [facility] will provide me with a copy of the patient encounter via [facility]. I authorize the [facility] to carry out these activities on my behalf. I consider this program to be a necessary part of the patient's medical care. Pedro Pablo Gaspar MD Reason for Visit * Reason Onset Date Comments Hospital Follow-Up Hospital Follow-Up 03/29/2024 Encounter Details Date Type Department Care Team (Late st Contact Info) Description 03/29/2024 11:00 AM EDT Office Visit [facility] [address] [place] [address] Pedro Pablo Gaspar MD [address] [place] [address] Hospital discharge follow-up*; BPH with obstruction/lower urinary tract symptoms; Indwelling Rushing catheter present; History of CVA (cerebrovascular accident); Adult failure to thrive; Ischemic cardiomyopathy; Old [place] (myocardial infarction); Type 2 diabetes mellitus with hemoglobin A1c goal of less than 7.0% ([facility]); Stage 3a chronic kidney disease ([facility]) Allergies No known active allergiesdocumented as of this encounter (statuses as of 03/29/2024) Medications Medication Sig Dispensed Refills Start Date End Date Status ONETOUCH VERIO STRP 0 03/22/2020 Active Lancets (ONETOUCH DELICA PLUS [id number]) MISC 0 03/22/2020 Active FreeStyle Yulissa 2 Spencer DeviceIndication s:Type 2 diabetes mellitus with hemoglobin A1c goal of less than 7.0% ([facility]) Use as directed. 0 03/07/2021 [...] hemoglobin A1c goal of less than 7.0% ([facility]),HTN, goal below 130/80 Take 1 Tablet by mouth 2 times a day. 60 Tablet 11/23/2023 Active Clopidogrel Bisulfate 75 MG Oral Tablet (pLAVix)Indicati ons:Old [place] (myocardial infarction),Hist ory of CVA (cerebrovascular accident) [...] hemoglobin A1c goal of less than 7.0% ([facility]) Take 1 Tablet by mouth [...] Pain, Severe. 30 Tablet 0 03/29/2024 Active Doxycycline Hyclate 100 MG Oral Capsule Take 1 Capsule by mouth in the morning and 1 Capsule before bedtime. 0 10/12/2023 Discontinued documented as of this encounter (statuses [...] 05/04/2020 HTN, goal below 130/80 03/26/2020 Old [place] (myocardial infarction) 03/26/2020 Dyslipidemia 03/26/2020 Tobacco use disorder 03/26/2020 History of CVA (cerebrovascular accident) 2019 Type 2 diabetes mellitus wit h hemoglobin A1c goal of less than 7.0% 03/26/2020 Chronic systolic heart failure 03/26/2020 documented as of this encounter (statuses as of 03/29/2024) Resolved Problems Problem Noted Date Diagnosed Date Resolved Date Preoperative general physical examination 02/03/2024 03/29/2024 ETD (Eustachian tube dysfunction), bilateral 05/03/08/29/2022 GÓMEZ (generalized anxiety disorder) 05/08/2021 10/14/2023 Moderate episode of recurren t major depressive disorder 05/08/2021 10/14/2023 MEDICATION USE AGREEMENT 12/14/2020 Atherosclerotic heart diseas e of [place] coronary artery with other forms of angina pectoris 05/04/2020 08/08/2020 Adjustment disorder with depressed mood 03/26/2020 05/08/2021 Bilateral carotid artery stenosis 03/26/2020 07/06/2020 documented as of this encounter (statuses as of 03/29/2024) Immunizations Name Administration Dates Next Due COVID-19 mRNA, LNP-s, No Pre serve, 2-Dose Series ([employer]) 04/06/2021,03/16/2021 COVID-19, MRNA-LNP, 23-24, P F, 30 MCG/0.3 mL, 12 YRS AND ABOVE, IM ([employer]) 03/29/2024 Hepatitis B, 20+ yrs 12/14/2020,05/04/2020 Pneumococcal [...] on file documented as of this encounter Last Filed Vital Signs Vital Sign Reading Time Taken Comments Blood Pressure 112/72 03/29/2024 10:50 AM EDT Pulse 111 03/29/2024 10:50 AM EDT Temperature 36.6 C (97.8 F) 03/29/2024 10:50 AM E DT Respiratory Rate 18 03/29/2024 10:50 AM EDT Oxygen Saturation 98% 03/29/2024 10:50 AM EDT Inhaled Oxygen Concentration - - Weight 68.5 kg (151 lb) 03/29/2024 10:50 AM EDT Height 167.6 cm (5' 6") 03/29/2024 10:50 AM EDT Body Mass Index 24.37 03/29/2024 10:50 AM EDT documented in this encounter Progress Notes * Pedro Pablo Gaspar MD - 03/29/2024 10:55 AM EDT SUBJECTIVE: Deyvi Bansal is a 53 year old male. Chief Complaint Patient presents with Hospital Follow-Up Hospital Follow-Up Recent Admission: Patient was recently admitted to [facility]. The date of discharge was 03/18/24. Discharge report received and reviewed. HPI: Deyvi is here unaccompanied for a hospital follow up. I am seeing him in conjunction with aranza. He was admitted for GI discomfort, but currently his biggest issue is his indwelling foleycatheter which he has had in for about 6 months now. It is being changed every couple of months by home health nurses. He recently "lost gabe" in his urologist at [facility] and now has an appointment with Dr. Ruano next month at [facility]. Patient hopes to have a TURP. He also has follow up scheduled with GI. Patient Active Problem List Diagnosis Code HTN, goal below 130/80 I10 Old [place] (myocardial infarction) I25.2 Dyslipidemia E78.5 Tobacco use disorder F17.200 History of CVA (cerebrovascular accident) Z86.73 Type 2 diabetes mellitus with hemoglobin A1c goal of less than 7.0% (HCC) E11.9 Chronic systolic heart failure ([facility]) I50.22 Hemiplegia, post-stroke ([facility]) I69.359 Type 2 diabetes mellitus with diabetic polyneuropathy ([facility]) E11.42 History of right-sided carotid endarterectomy Z98.890 Gastroesophageal reflux disease without esophagitis K21.9 Complex regional pain syndrome type 1 affecting both hands G90.513 Stage 3a chronic kidney disease ([facility]) N18.31 Depression with anxiety F41.8 History of pulmonary embolism Z86.711 Adult failure to thrive R62.7 Ischemic cardiomyopathy I25.5 Protein-calorie malnutrition ([facility]) E46 BPH with obstruction/lower urinary tract symptoms N40.1, N13.8 Indwelling Rushing catheter present Z97.8 Current Outpatient Medications Medication Sig Dispense Refill Mupirocin 2 % External Ointment (Bactroban) Apply topically to affected area 2 times a day. Furosemide 20 MG Oral Tablet (Lasix) Take 0.5 Tablets by mouth in the morning. Tamsulosin HCl 0.4 MG Oral Capsule (Flomax) Take 1 Capsule by mouth in the morning. 30 Capsule 5 Spironolactone 25 MG Oral Tablet (Aldactone) Take 1 Tablet by mouth in the morning. 30 Tablet 5 Omeprazole 40 MG Oral Capsule Delayed Release (PriLOSEC) Take 1 Capsule by mouth in the morning. 1 hour before the first meal of the day. 90 Capsule 1 Metoprolol Succinate ER 25 MG Oral Tablet Extended Release 24 Hour (toPROL XL) Take 1 Tablet by mouth 2 times a day. 60 Tablet 5 metFORMIN HCl ER 500 MG Oral Tablet Extended Release 24 Hour (Glucophage XR) Take 2 Tablets by mouth in the morning. 60 Tablet 11 Lisinopril 10 MG Oral Tablet (Prinivil) Take 1 Tablet by mouth 2 times a day. 60 Tablet 5 Clopidogrel Bisulfate 75 MG Oral Tablet (pLAVix) TAKE 1 TABLET BY MOUTH EVERY DAY IN THE MORNING 90Tablet 1 Atorvastatin Calcium 20 MG Oral Tablet (Lipitor) TAKE 1 TABLET BY MOUTH EVERY DAY IN THE MORNING 90Tablet 1 Apixaban 5 MG Oral Tablet (Eliquis) Take 1 Tablet by mouth 2 times a day. 60 Tablet 5 rOPINIRole HCl 0.25 MG Oral Tablet (Requip) One tablet daily at bedtime 30 Tablet 2 Empagliflozin 10 MG Oral Tablet (Jardiance) Take 1 Tablet by mouth in the morning. 30 Tablet 2 LORazepam 0.5 MG Oral Tablet (Ativan) Take 1 Tablet by mouth every 6 hours as needed for Anxiety. Takes as needed Sertraline HCl 25 MG Oral Tablet (Zoloft) Take 1 Tablet by mouth in the morning. Ondansetron HCl 4 MG Oral Tablet Take 1 Tablet by mouth every 8 hours as needed for Nausea. 10 Tablet 0 oxyCODONE HCl 5 MG Oral Tablet (Oxy IR) Take 1 Tablet by mouth every 8 hours as needed for Pain, Severe. 30 Tablet 0 ONETOUCH VERIO STRP Lancets (ONETOUCH DELICA PLUS [id number]) [facility] FreeStyle Yulissa 2 Spencer Device Use as directed. FreeStyle Yulissa 2 Sensor Use as directed. Use as directed to check blood sugar 3 Each 2 Shingrix 50 MCG/0.5ML Intramuscular Suspension Reconstituted (Zoster Vac Recomb Adjuvanted) Inject 0.5ml intramuscularly as directed 1 Each 0 No current facility-administered medications for this visit. Current and discharge medications have been reconciled. Review of patient's allergies indicates: No Known Allergies OBJECTIVE: BP 112/72 | Pulse 111 | Temp 36.6 C (97.8 F) (Tympanic) | Resp 18 | Ht 1.676 m (5' 6") | Wt 68.5 kg (151 lb) | SpO2 98% | BMI 24.37 kg/m | BSA 1.79 m PHYSICAL EXAM: General: alert, healthy, and no distress Neck: supple, no adenopathy, no bruits, thyroid normal size, non-tender, without nodularity Heart: regular rate & rhythm, no murmur, and no gallops Lungs: chest symmetric with normal AP diameter, no chest deformities noted, no chest wall tenderness, lungs clear to auscultation Abdomen: abdomen soft, non-tender, normal bowel sounds, and no masses or organomegaly Neuro Exam: alert & oriented x 3 with fluent speech, no focal motor/sensory deficits, gait normal, reflexes normal and symmetric Exam (Male): Rushing in place; yellow urine in bag ASSESSMENT: Hospital discharge follow-up (Primary) - DISCH MED RECON CUR MED LIS BPH with obstruction/lower urinary tract symptoms Indwelling Rushing catheter present - oxyCODONE HCl 5 MG Oral Tablet (Oxy IR); Take 1 Tablet by mouth every 8 hours as needed for Pain,Severe. History of CVA (cerebrovascular accident) Adult failure to thrive Ischemic cardiomyopathy Old [place] (myocardial infarction) Type 2 diabetes mellitus with hemoglobin A1c goal of less than 7.0% ([facility]) - PHARMACIST MEDS THERAPY MGMT REFERRAL OP Stage 3a chronic kidney disease (HCC) PLAN: Continue present medication(s): Follow up as needed. I spent a total of 20-29 minutes (exact time 28 mins) minutes on the date of service in preparation, delivery, and documentation of the care provided to Deyvi Bansal excluding any time spent in performance of separately billed services. Pedro Pablo Gaspar MD documented in this encounter Nursing Notes * Hilary Cunningham LPN - 03/29/2024 10:47 AM EDT The patient has been properly identified by confirmation of name and date of . Chief Complaint Patient presents with Hospital Follow-Up documented in this encounter Plan of Treatment Upcoming Encounters Date Type Department Care Team (Late st Contact Info) Description 04/22/2024 9:00 AM EDT Office Visit Gastroenterology [address] [place] [address] Ayala Pacheco CRNP [address] [place] [address] 04/27/2024 10:00 AM EDT Office Visit Urology, [facility] [address] [place] [place] [address] Kareem Ruano MD [address] [place] [address] [place] [address] Scheduled Referrals Name Type Priority Associated Diagnoses Orde r Schedule PHARMACIST MEDS THERAPY MGMT REFERRAL OP Referral Within 10 days (routine) Type 2 diabetes mellitus with hemoglobin A1c goal of less than 7.0% (HCC) Ordered: 03/29/2024 Health Maintenance Due Date Last Done Comments DISCUSS TOBACCO CESSATION (REFER TO SMARTSET #9801) 1970 HIV Screening 1985 Hepatitis C Screening [...] Additional history exists CKD PHOS USE SMARTSET [id number] 01/14/2025 01/15/2024, 1 12/12/2022 Albumin/Creatinine Ratio 01/26/2025 024, 08/29/2022, 12/14/2020 CKD HGB USE SMARTSET [id number] 03/19/202503/19, 02/03/2024, 02/03/2024, Additional history exists DTaP,Tdap,and [...] as of this encounter Visit Diagnoses Diagnosis Hospital discharge follow-up- Primary Other follow-up examination BPH with obstruction/lower urinary tract symptoms Hypertrophy of prostate with urinary obstruction and other lower urinary tract symptoms (LUTS) Indwelling Rushing catheter present History of CVA (cerebrovascular accident) Transient ischemic attack (TIA), and cerebral infarction without residual deficits Adult failure to thrive Ischemic cardiomyopathy Other specified forms of chronic ischemic heart disease Old [place] (myocardial infarction) Old myocardial infarction Type 2 diabetes mellitus with hemoglobin A1c goal of less than 7.0% (HCC) Stage 3a chronic kidney disease (HCC) documented in this encounter Care Teams Aegis Console Operator Track Relationship Specialty Start Date End Date Pedro Pablo Gaspar MD [address] [place] [address] PCP - General Family Medicine 10/22/20 documented as of this encounter
--- OUTSIDE RECORDS SUMMARY | 2024-04-25 21:34 | External Medical Summary | Summary of Care ---
Author Name Unknown Organization [facility] Address [address] [facility] [place] [address] Phone [phone] Care Team Providers Care Transit Mixer Operator Name Role Phone Shira Gaspar MD Primary Care Provider [phone] Reason for Visit * Reason Comments eRx-Medication Refill Encounter Details Date Type Department Care Team (Late st Contact Info) Description 03/29/2024 Refill Family Practice [facility] [address] [place] [address] Shira Gaspar MD [address] [place] [address] Type 2 diabetes mellitus with hemoglobin A1c goal of less than 7.0% ([facility]) Allergies No known active allergiesdocumented as of this encounter (statuses as of 03/31/2024) Medications Medication Sig Dispensed Refills Start Date End Date Status ONETOUCH VERIO STRP 0 03/22/2020 Active Lancets (ONETOUCH DELICA PLUS [id number]) MISC 0 03/22/2020 Active FreeStyle Yulissa 2 [place] DeviceIndication s:Type 2 diabetes mellitus with hemoglobin A1c goal of less than 7.0% (HCC) Use as directed. 0 03/07/2021 Active Mupirocin [...] A1c goal of less than 7.0% ([facility]),HTN, goal below 130/80 Take 1 Tablet by mouth 2 times a day. 60 Tablet 11/23/2023 Active Clopidogrel Bisulfate 75 MG Oral Tablet (pLAVix)Indicati ons:Old [place] (myocardial infarction),Hist ory of CVA (cerebrovascular accident) [...] THE MORNING 30 Tablet 2 03/31/2024 Active rOPINIRole HCl 0.25 MG Oral Tablet (Requip) One tablet daily at bedtime 30 Tablet 2 12/24/2023 4 Discontinued Empagliflozin 10 MG Oral Tablet (Jardiance)Indic ations:Type 2 diabetes mellitus with hemoglobin A1c goal of less than 7.0% (HCC) Take 1 Tablet by mouth in the morning. 30 Tablet 2 01/18/2024 4 Discontinued documented as of this encounter (statuses as of 03/31/2024) Active Problems Problem Noted Date Diagnosed Date [...] 05/04/2020 HTN, goal below 130/80 03/26/2020 Old [place] (myocardial infarction) 03/26/2020 Dyslipidemia 03/26/2020 Tobacco use disorder 03/26/2020 History of CVA (cerebrovascular accident) 2019 Type 2 diabetes mellitus wit h hemoglobin A1c goal of less than 7.0% 03/26/2020 Chronic systolic heart failure 03/26/2020 documented as of this encounter (statuses as of 03/31/2024) Resolved Problems Problem Noted Date Diagnosed Date Resolved Date Preoperative general physical examination 02/03/2024 03/29/2024 ETD (Eustachian tube dysfunction), bilateral 08/29/2022 GÓMEZ (generalized anxiety disorder) 05/08/2021 10/14/2023 Moderate episode of recurren t major depressive disorder 05/08/2021 10/14/2023 MEDICATION USE AGREEMENT 12/14/2020 Atherosclerotic heart diseas e of [place] coronary artery with other forms of angina pectoris 05/04/2020 08/08/2020 Adjustment disorder with depressed mood 03/26/2020 05/08/2021 Bilateral carotid artery stenosis 03/26/2020 07/06/2020 documented as of this encounter (statuses as of 03/31/2024) Immunizations Name Administration Dates Next Due COVID-19 mRNA, LNP-s, No Pre serve, 2-Dose Series ([employer]) 04/06/2021,03/16/2021 COVID-19, MRNA-LNP, 23-24, P F, 30 MCG/0.3 mL, 12 YRS AND ABOVE, IM ([employer] [facility]) 03/29/2024 Hepatitis B, 20+ yrs 12/14/2020,05/04/2020 Pneumococcal [...] Miscellaneous Notes * Telephone Encounter - Shira Gaspar MD - 03/31/2024 12:02 PM EDTSigned Prescriptions: Disp Refills rOPINIRole HCl 0.25 MG Oral Tablet (Requip)30 Tab*2 Sig: TAKE ONE TABLET AT BEDTIME Authorizing Provider: SHIRA GASPAR Jardiance 10 MG Oral Tablet (Empagliflozin)30 Tab*2 Sig: TAKE ONE TABLET BY MOUTH IN THE MORNING Authorizing Provider: SHIRA GASPAR * Telephone Encounter - Blessing Salas LPN - 03/31/2024 10:45 AM EDTPending Prescriptions: Disp Refills rOPINIRole HCl 0.25 MG Oral Tablet [Pharma*30 Tab*2 Sig: TAKE ONE TABLET AT BEDTIME Jardiance 10 MG Oral Tablet [Pharmacy Med *30 Tab*2 Sig: TAKE ONE TABLET BY MOUTH IN THE MORNING * Telephone Encounter - Blessing Salas LPN - 03/31/2024 10:45 AM EDT Did you pend patient's preferred pharmacy and medication before forwarding?yes Pharmacy: [facility], [address] [place] Pending Prescriptions: Disp Refills rOPINIRole HCl 0.25 MG Oral Tablet (Requi*30 Tab*2 Sig: TAKE ONE TABLET AT BEDTIME Jardiance 10 MG Oral Tablet (Empagliflozi*30 Tab*2 Sig: TAKE ONE TABLET BY MOUTH IN THE MORNING Last Visit: 03/29/2024 (in office), 08/08/2020 (telemedicine) Next Visit: Visit date not found If no future appointments scheduled, and last appointment is greater than a year ago, please schedule patient for a follow-up appointment Last date the medication was ordered: Is this request for a controlled substance?No [...] 12:19 PM HGBA1C 5.3 12/14/2020 01:23 PM * Telephone Encounter - Martinez Jones - 03/30/2024 4:39 AM EDTPending Prescriptions: Disp Refills rOPINIRole HCl 0.25 MG Oral Tablet [Pharma*30 Tab*2 Sig: TAKE ONE TABLET AT BEDTIME Jardiance 10 MG Oral Tablet [Pharmacy Med *30 Tab*2 Sig: TAKE ONE TABLET BY MOUTH IN THE MORNING documented in this encounter Plan of Treatment Upcoming Encounters Date Type Department Care Team (Late st Contact Info) Description 03/31/2024 1:30 PM EDT Home Visit [facility] [address] [facility] [place] [address] [address] [place] [address] 04/01/2024 9:15 AM EDT Scheduled Telephone [facility] [address] [facility] [place] [address] Ca Collazo [facility] [address] [place] [facility] [place] [address] 04/19/2024 1:30 PM EDT Office Visit Pharmacy, [address] [place] [address] [place] [address] 04/22/2024 9:00 AM EDT Office Visit Gastroenterology [address] [place] [address] Ayala Pacheco CRNP [address] [place] [address] 04/27/2024 10:00 AM EDT Office Visit Urology, [facility] [address] [place] [address] Kareem Ruano MD [address] [facility] [place] [address] [place] [address] Health Maintenance Due Date Last Done Comments DISCUSS TOBACCO CESSATION (REFER TO SMARTSET #2590) 1970 HIV Screening 1985 Hepatitis C Screening [...] Additional history exists CKD PHOS USE SMARTSET [id number] 01/14/2025 01/15/2024, 1 12/12/2022 Albumin/Creatinine Ratio 01/26/2025 024, 08/29/2022, 12/14/2020 CKD HGB USE SMARTSET [id number] 03/19/202503/19, 02/03/2024, 02/03/2024, Additional history exists DTaP,Tdap,and [...] A1c goal of less than 7.0% ([facility]) documented in this encounter Care Teams Transit Mixer Operator Relationship Specialty Start Date End Date Shira Gaspar MD [address] [place] [address] PCP - General Family Medicine 10/22/20 documented as of this encounter
--- OUTSIDE RECORDS SUMMARY | 2024-04-25 21:34 | External Medical Summary ---
Author Name Unknown Address Unknown Organization K0G[facility] [address] [place] [address] Laboratory Report Ordering Provider Test Date Status HERRERA GARCIA 03/19/2024 09:19:58 Final Observation Date Value Abnormality Reference (Units ) Status BUN 03/19/2024 09:19:58 15 6-20 (mg/dL) Final Creatinine 03/19/2024 09:19:58 1.2 0.6-1.2 (mg/dL) Final Glomerular filtration rate/1.73 sq M.predicted [Volume Rate/Area] in Serum, Plasma or Blood by Creatinine-based formula (CKD-EPI) 03/19/2024 09:19:58 74 >=60 (mL/min) Final eGFR is calculated based on the CKD-EPI 2020 equation Sodium 03/19/2024 09:19:58 137 135-146 (m mol/L) Final Potassium 03/19/2024 09:19:58 4.4 3.5-5.1 (m mol/L) Final Cl 03/19/2024 09:19:58 105 98-107 (mm ol/L) Final CO2 03/19/2024 09:19:58 21 Below low normal 22- 32 (mmol/L) Final Anion gap 03/19/2024 09:19:58 11 7-15 (mmol /L) Final Glucose 03/19/2024 09:19:58 188 Above high normal 70 -120 (mg/dL) Final Calcium 03/19/2024 09:19:58 9.2 8.4-10.2 ( mg/dL) Final Performing Location [facility] [place] [address] [place] [address]
--- OUTSIDE RECORDS SUMMARY | 2024-04-25 21:34 | External Medical Summary | Summary of Care ---
Author Name Unknown Organization [facility] Address [address] [place] [address] Phone [phone] Care Team Providers Care Sample Coordinator Name Role Phone Pedro Pablo Gaspar MD Primary Care Provider [phone] Encounter Details Date Type Department Care Team (Late st Contact Info) Description 04/22/2024 9:15 AM EDT Scheduled Telephone Care Coordination and Integration [address], [place] [id number] Ca Collazo, Community Health Occupational Therapy Specialist [address], [place] [id number] Allergies No known active allergiesdocumented as of this encounter (statuses as of 04/22/2024) Medications Medication Sig Dispensed Refills Start Date End Date Status ONETOUCH VERIO STRP 03/22/2020 Activ e Lancets (ONETOUCH DELICA PLUS [id number]) [facility] [place] 03/22/2020 Active FreeStyle Yulissa 2 [place] DeviceIndications:T ype 2 diabetes mellitus with hemoglobin A1c goal of less than 7.0% ([facility]) Use as directed. 03/07/2021 Active [...] Oral Tablet Extended Release 24 Hour (toPROL XL)Indications:Payment Rep edie systolic heart failure (HCC) Take 1 Tablet by mouth 2 times a day. 60 Tablet 11/23/2023 Active metFORMIN HCl ER 500 MG Oral Tablet Extended Release 24 Hour (Glucophage XR) Take 2 Tablets by mouth in the morning. 60 Tablet 11/23/2023 Active Lisinopril 10 MG Oral Tablet (Prinivil)Indicatio ns:Type 2 diabetes mellitus with hemoglobin A1c goal of less than 7.0% ([facility]),HTN, goal below 130/80 Take 1 Tablet by mouth 2 times a day. 60 Tablet 11/23/2023 Active Clopidogrel Bisulfate 75 MG Oral Tablet (pLAVix)Indications :Old [place] (myocardial infarction),History of CVA (cerebrovascular accident) TAKE [...] hemoglobin A1c goal of less than 7.0% ([facility]) TAKE ONE TABLET BY MOUTH [...] AGREEMENT 12/14/2020 Atherosclerotic heart diseas e of [place] coronary artery with other forms of angina [...] Progress Notes * Ca Collazo, Community Health Occupational Therapy Specialist - 04/22/2024 9:17 AM EDT Telemedicine visit: No Community Health Occupational Therapy Specialist (KIKI) documentation: CHW week 4 f/u call per RONALD Liu CHW survey completed Dizziness off and on several times a week,that doesn't last. Reports occasional nausea, not with the dizziness Pt reports having to cancel his appointment with Gastro for today due to transportation issues. documented in this encounter Plan of Treatment Upcoming Encounters Date Type Department Care Team (Late st Contact Info) Description 04/27/2024 10:00 AM EDT Office Visit Urology, [facility] [address] [place] [address] Kareem Ruano MD [address] [place] [address] 05/30/2024 10:10 AM EDT Office Visit Pharmacy, [address] [place] [address] [place] [address] 06/17/2024 12:30 PM EDT Office Visit Gastroenterology [address] [place] [address] Ayala Pacheco CRNP [address] [place] [address] Health Maintenance Due Date Last Done Comments DISCUSS TOBACCO CESSATION (REFER TO SMARTSET #8921) 1970 HIV Screening 1985 Hepatitis C Screening [...] Additional history exists CKD PHOS USE SMARTSET 80186 01/14/2025 01/15/2024, 1 12/12/2022 Albumin/Creatinine Ratio 01/26/2025 024, 08/29/2022, 12/14/2020 CKD HGB USE SMARTSET 68179 03/19/202503/19, 02/03/2024, 02/03/2024, Additional history exists DTaP,Tdap,and [...] filedocumented as of this encounter Care Teams Sample Coordinator Relationship Specialty Start Date End Date Pedro Pablo Gaspar MD [address] [place] [address] PCP - General Family Medicine 10/22/20 documented as of this encounter
--- OUTSIDE RECORDS SUMMARY | 2024-04-25 21:34 | External Medical Summary | Summary of Care ---
Author Name Unknown Organization [facility] Address [address] [facility] [place] [address] Phone [phone] Care Team Providers Care Psych Nurse Name Role Phone Shira Gaspar MD Primary Care Provider [phone] Reason for Visit * Reason Onset Date Comments Medication Refill 04/12/2024 Encounter Details Date Type Department Care Team (Late st Contact Info) Description 04/12/2024 Refill Family Practice [facility] [address] [facility] [place] [address] Shira Gaspar MD [address] [place] [address] Indwelling Rushing catheter present Allergies No known active allergiesdocumented as of this encounter (statuses as of 04/13/2024) Medications Medication Sig Dispensed Refills Start Date End Date Status ONETOUCH VERIO STRP 03/22/2020 Active Lancets (ONETOUCH DELICA PLUS [id number]) [facility] 03/22/2020 Active FreeStyle Yulissa 2 [place] DeviceIndication s:Type 2 diabetes mellitus with hemoglobin A1c goal of less than 7.0% ([facility]) Use as directed. 03/07/2021 Active Mupirocin [...] hemoglobin A1c goal of less than 7.0% ([facility]),HTN, goal below 130/80 Take 1 Tablet by mouth 2 times a day. 60 Tablet 11/23/2023 Active Clopidogrel Bisulfate 75 MG Oral Tablet (pLAVix)Indicati ons:Old [place] (myocardial infarction),Hist ory of CVA (cerebrovascular accident) [...] for Pain, Severe. 30 Tablet 04/13/2024 Active oxyCODONE HCl 5 MG Oral Tablet (Oxy IR)Indications:I ndwelling Rushing catheter present Take 1 Tablet by mouth every 8 hours as needed for Pain, Severe. 30 Tablet 03/29/2024 04/12/2024 Discontinued (Refill) documented as of this encounter (statuses as of 04/13/2024) Active Problems Problem Noted Date Diagnosed Date [...] as of this encounter (statuses as of 04/13/2024) Resolved Problems Problem Noted Date Diagnosed Date Resolved Date Preoperative general physical examination 02/03/2024 03/29/2024 ETD (Eustachian tube dysfunction), bilateral 2 08/29/2022 GÓMEZ (generalized anxiety disorder) 05/08/2021 10/14/2023 Moderate episode of recurren t major depressive disorder 05/08/2021 10/14/2023 MEDICATION USE AGREEMENT 12/14/2020 Atherosclerotic heart diseas e of [place] coronary artery with other forms of angina pectoris 05/04/2020 08/08/2020 Adjustment disorder with depressed mood 03/26/2020 05/08/2021 Bilateral carotid artery stenosis 03/26/2020 07/06/2020 documented as of this encounter (statuses as of 04/13/2024) Immunizations Name Administration Dates Next Due COVID-19 mRNA, LNP-s, No Pre serve, 2-Dose Series ([employer]) 04/06/2021,03/16/2021 COVID-19, MRNA-LNP, 23-24, P F, 30 MCG/0.3 mL, 12 YRS AND ABOVE, IM ([employer]) 03/29/2024 Hepatitis B, 20+ yrs 12/14/2020,05/04/2020 Pneumococcal [...] Telephone Encounter - Shira Gaspar MD - 04/13/2024 9:45 AM EDTSigned Prescriptions: Disp Refills oxyCODONE HCl 5 MG Oral Tablet (Oxy IR) 30 Tab*0 Sig: Take 1 Tablet by mouth every 8 hours as needed for Pain, Severe. Authorizing Provider: SHIRA GASPAR * Telephone Encounter - Precious Werner [facility] - 04/13/2024 9:42 AM EDT Pending Prescriptions: Disp Refills oxyCODONE HCl 5 MG Oral Tablet (Oxy IR) 30 Tab*0 Sig: Take 1 Tablet by mouth every 8 hours as needed for Pain, Severe. * Telephone Encounter - Precious Werner [facility] - 04/13/2024 9:42 AM EDT I have reviewed the patients controlled substance dispensing history in the Prescription Drug Monitoring Program in compliance with the [facility] regulations before prescribing a controlled substance. PDMP checked on 04/13/2024. Pending Prescriptions: Disp Refills oxyCODONE HCl 5 MG Oral Tablet (Oxy IR) 30 Tab*0 Sig: Take 1 Tablet by mouth every 8 hours as needed for Pain, Severe. Last Visit: 03/29/2024 (in office), 08/08/2020 (telemedicine) Next Visit: Visit date not found Date medication was last filled: 03/29 Date medication is due for refill: 04/08 Pharmacy: [facility] [address] Is this request for [...] CREATININE IDALIA 45 Please approve if appropriate. Thanks, Precious Werner PharmD Clinical Pharmacist [facility] [phone] 04/13/2024,9:42 AM * Telephone Encounter - Leigh Iyer CPhT - 04/13/2024 9:39 AM EDT Pt calling in to check status of refill. Pt said he needs for today. Please advise. Thank you, Leigh Iyer CPhT Audio Visual Technician II [facility] ([facility] (formerly [facility]) 04/13/2024, 9:39 AM * Telephone Encounter - Angie John PHARM Tech - 04/12/2024 8:24 AM EDT Did you pend patient's preferred pharmacy and medication before forwarding?yes Pharmacy: [facility] [address] [place] Pending Prescriptions: Disp Refills oxyCODONE HCl 5 MG Oral Tablet (Oxy IR) 30 Tab*0 Sig: Take 1 Tablet by mouth every 8 hours as needed for Pain, Severe. Last Visit: 03/29/2024 (in office), 08/08/2020 (telemedicine) Next Visit: Visit date not found If no future appointments scheduled, and last appointment is greater than a year ago, please schedule patient for a follow-up appointment Last date the medication was ordered: 03-29-24 Is this request for a controlled substance?Yes, What was the last refill date 03-29-24 w/ quantity 30 and dosage 5 mg and Urine Drug Screen was completed Urine [...] Telephone Care Coordination and Integration [address] [place] [address] Ca Collazo, Community Health Fork Operator [address] [facility] [place] [address] 04/19/2024 1:30 PM EDT Office Visit Pharmacy, [address] [place] [address] [place] [address] 04/22/2024 9:00 AM EDT Office Visit Gastroenterology [address] [place] [address] Ayala Pacheco CRNP [address] [place] [address] 04/27/2024 10:00 AM EDT Office Visit Urology, [facility] [address] [place] [address] Kareem Ruano MD [address] [facility] [address] [place] [address] Health Maintenance Due Date Last Done Comments DISCUSS TOBACCO CESSATION (REFER TO SMARTSET #9399) 1970 HIV Screening 1985 Hepatitis C Screening [...] Additional history exists CKD PHOS USE SMARTSET 32507 01/14/2025 01/15/2024, 1 12/12/2022 Albumin/Creatinine Ratio 01/26/2025 024, 08/29/2022, 12/14/2020 CKD HGB USE SMARTSET 57383 03/19/202503/19, 02/03/2024, 02/03/2024, Additional history exists DTaP,Tdap,and [...] present documented in this encounter Care Teams Psych Nurse Relationship Specialty Start Date End Date Shira Gaspar MD [address] [facility] [place] [address] PCP - General Family Medicine 10/22/20 documented as of this encounter
[2024-04-26 06:20] LABS: Hematocrit (blood only) 26.8 % (42.0-52.0); Hemoglobin 8.2 g/dl (14.0-18.0); Mean Corpuscular Hgb Conc 30.6 g/dL (32.0-36.0); Mean Corpuscular Volume 75.1 fL (80.0-100.0); Mean Platelet Volume 10.5 fL (9.4-12.4); Platelet Count 267 K/uL (130-400); RDW Coefficient of Variation 17.2 % (11.5-14.5); RDW Standard Deviation 47.2 fL (36.4-46.3); Red Blood Count 3.57 M/uL (4.70-6.10); White Blood Count 10.43 K/ul (4.8-10.8)
[2024-04-26 06:29] LABS: Calcium 9.2 mg/dl (8.6-10.3); Magnesium 1.7 mg/dl (1.7-2.4); Potassium 4.8 mmol/L (3.5-5.1)
[2024-04-26 06:35] LABS: BUN Creatinine Ratio 16.1 (10-20); Creatinine Clr Calc Pharmacy 33.5 ml/min; Est GFR (African American) 36.2 ml/min; Est GFR (Non-African American) 31.3 ml/min
--- NOTE | 2024-04-26 07:26 | CT Scan Report ---
CT OF THE ABDOMEN AND PELVIS WITHOUT CONTRAST CLINICAL HISTORY: Sepsis, Hematuria, Possible ABLA. COMPARISON STUDY: CT of the abdomen and pelvis March 13, 2024. TECHNIQUE: Axial images of the abdomen and pelvis were obtained without IV contrast. Images were revi ewed in the axial, sagittal, and coronal planes. Automated exposure control was utilized for the sushma dy. A dose lowering technique was utilized adhering to the principles of ALARA. FINDINGS: There is a trace pericardial effusion. Moderate alveolar opacities within the left lower lo be and lingula are present, including foci of consolidation and groundglass opacities. A 1.2 cm right lower lobe nodular density on image 12 of [address] of March 13, 2024. There are mild hao undglass opacities within the right lower lobe. No pneumatosis, free air or portal venous gas is pres ent. No renal, ureteral or bladder calculi are present. Bladder wall thickening is unchanged. A Rushing balloon and gas within the bladder are present. Sensitivity for detection of urothelial lesions is d iminished on this unenhanced exam but none are identified. Calcifications within the renal sinuses ar e vascular in etiology. Gallbladder wall thickening is again noted. This was shown on prior exam. Gal lbladder distention has resolved. Evaluation of the abdomen and pelvis is suboptimal on this unenhanc ed exam. Borderline splenomegaly. Adrenal glands and pancreas are unremarkable. Gastric fold thickeni ng may be due to underdistention. There is no abdominal or pelvic lymphadenopathy. There is a moderat e amount stool within the colon and rectum. No evidence for a bowel obstruction. No bowel wall thicke remi is identified on unenhanced exam. There is no fluid collection within the abdomen or pelvis. No acute fractures are identified. IMPRESSION: 1. Multifocal left lower lobe and lingular consolidation and groundglass opacities suggestive of pneu monia or aspiration pneumonitis. 2. Persistent 1.2 cm nodular opacity within the right lower lobe. This remains indeterminate and a fo llow-up chest CT in 3 months to ensure resolution is recommended. 3. No urinary calculi or hydronephrosis. Bladder wall thickening, similar to prior PET/CT. Rushing in p lace. 4. Moderate amount of stool within the colon. No evidence for a bowel obstruction. 5. Gallbladder wall thickening, similar to prior CT. Resolution of gallbladder distention. 6. Gastric fold thickening. This may be due to underdistention however gastritis could appear similar . ACT 112: Negative or not required by law. Electronically signed by: Jw Andujar M.D. 04/26/2024 7:25 AM
[2024-04-26] MEDS: ATORVASTATIN 20 MG TAB PO SCH (07:54)
[2024-04-26] MEDS: CLOPIDOGREL BISULFATE 75 MG TAB PO SCH (07:54)
[2024-04-26] MEDS: SERTRALINE HCL 50 MG TABLET PO SCH (07:55)
[2024-04-26] MEDS: PANTOprazole 40 MG TAB PO SCH (07:55)
--- NOTE | 2024-04-26 08:42 | Hospitalist Progress Note ---
Date of Service April 26, 2024 Assessment & Plan (1) Aspiration pneumonia: (2) Acute kidney injury superimposed on CKD: (3) Penile pain: (4) Hypomagnesemia: (5) BPH (benign prostatic hyperplasia): (6) BPH w/o urinary obs/LUTS: (7) Chronic HFrEF (heart failure with reduced ejection fraction): (8) Left ventricular apical thrombus: (9) ASCVD (arteriosclerotic cardiovascular disease): (10) Recurrent pulmonary embolism: Plan Aspiration pneumonia: Acute CT abdomen pelvis indicated multifocal left lower lobe consolidation suggestive of pneumonia/aspiration pneumonitis blood cultures Gram + Cocci in clusters STaph Persistent 1.2 cm opacity within RLL; repeat CT recommended in 3 months as outpatient Mild leukocytosis 10.43; improved from 16 Procalcitonin Started on IV Zosyn; continue for now and adjust based on cultures MRSA nares negative Incentive spirometry, flutter valve Procalcitonin ordered BRUNA superimposed on CKD: Penile discomfort: Acute Serum creatinine today 2.30; yesterday 2.61; baseline Urinalysis LE +1, WBC 21-50, +3 blood CTAP: -No urinary calculi or hydronephrosis. Bladder wall thickening, similar to prior PET/CT. Giles in place. -Moderate amount of stool within the colon. No evidence for a bowel obstruction. -Gallbladder wall thickening, similar to prior CT. Resolution of gallbladder distention. -Gastric fold thickening. This may be due to underdistention however ga stritis could appear similar. Treat with Zosyn for now and adjust based on urine culture which is pending Hypomagnesemia: Acute Patient had 6 beat run of asymptomatic V. tach overnight 04/25-04/26 noted by tele monitor Magnesium 1.7; will replace with 1 g and recheck in a.m. BPH without urinary obstruction/LUTS: Chronic Indwelling Giles changed in ER Reports penile meatus discomfort Hold tamsulosin for now Offered topical lidocaine around catheter insertion site; patient declined x 2 Urology consult placed; will continue to follow as outpatient and offer supportive care and pain management as needed Per consultation no acute intervention by warranted Has plans for TURP per his discussion HFrEF: Left ventricular apical thrombus: Ischemic cardiomyopathy, severe coronary artery disease: 09/17/23: ECHO 09/17 EF 20-25%, severe hypokinesis & Left ventricular apical thrombus discovered in the setting of severe cardiomyopathy Status post cardiac cath 09/22: Three-vessel coronary artery disease with markedly elevated left end-diastolic pressure. Diffuse coronary atherosclerosis but degree of coronary disease disproportionate to degree of systolic dysfunction Takes plavix, eliquis combo for thrombus/severe CAD Cont Metoprolol and Lisinopril ASCVD: H/O CVA: Occurred in 2019 Continue atorvastatin PT/OT given history of stroke Recent Pulmonary Emboli c/b Pulmonary Infarct Continue Eliquis Disposition: PCP: Dr. Gaspar Code Status: Full Code VTE Prophylaxis: on Eliquis I spent a total of 52 minutes coordinating, documenting and providing care for this patient excluding time spent in performance of separately billed services Admission and Anticipated Discharge Date Admission Date: April 25, 2024 Supervising Physician Co-Signing Physician Notes Patient seen and examined Reports penile meatal pain Reports cough but denied shortness of breath Reports chronic LUE weakness from stroke Giles changed in ER Uro eval CT abd also showed pneumonia Continue zosyn for now. BCX growing GPC in clusters. No MECA gene per PCR Repeat BCX Follow up cultures and deescalate as appropriate Get TTE PT/OT BRUNA on CKD Continue to hold lisinopril and diuretic for now Agree with plans as detailed by [place] EVANS and take full responsibility Subjective Pt sitting in his hospital bed in no apparent distress complaints of penile discomfort that 'extends through his urethral back towards his rectum' denies SOB, chest pain urine appears clear in giles catheter purulent drainage noted around meatus; dried dark blood on inner thigh from meatus Review of Systems Review of Systems: Neuro: (-) Falls, trauma, slurred speech HEENT: (-) COLES, dizziness, dysphagia, visual or auditory changes CV: (-) CP, palpitations, swelling Resp: (-) SOB GI: (-) appetite changes, N/V/D, bowel changes : (-) urinary changes (+) penile meatus discomfort Skin: (-) rashes Psych: (-) anxiety, depression Physical Exam Physical Exam: Neuro: AAOx4, PERRLA, no aphagia, memory changes, CNII-XII grossly intact HEENT: head normocephalic, moist mucus membranes CV: S1/S2, (-) M/G/R, (-) edema, cap refill < 3 seconds Resp: Lungs CTA in all traylor. On RA GI: Abdomen S/NT/ND, Ax4 bowel sounds, (-) CVA tenderness : Indwelling chronic giles catheter with clear output. purulent drainage around penile meatus. Musculoskeletal: 5/5 B/L UE strength, 5/5 B/L LE strength. No gait disturbance Skin: (-) rashes , (-) erythema. Psych: euthymic mood Results & Data Results & Data Vital Signs (Past 12 Hours) Vital Signs Temp Pulse Pulse Pulse Resp BP BP 04/26/24 08:04 36.7 C 73 16 116/70 04/26/24 05:34 79 04/26/24 03:42 69 96/59 L 04/26/24 03:01 36.5 C 83 18 91/64 L 04/25/24 23:52 36.5 C 69 16 91/46 L 04/25/24 22:02 68 04/25/24 21:19 71 89/50 L Pulse Ox O2 Del Method 04/26/24 08:04 96 Room Air 04/26/24 05:34 04/26/24 03:42 04/26/24 03:01 97 Room Air 04/25/24 23:52 94 Room Air 04/25/24 22:02 04/25/24 21:19 Laboratory Results Short CBC 04/25/24 04/26/24 Range/Units 14:02 05:41 WBC 16.77 H 10.43 (4.8-10.8) K/ul Hgb 8.5 L 8.2 L (14.0-18.0) g/dl Hct 27.0 L 26.8 L (42.0-52.0) % Plt Count 291 267 (130-400) K/uL BMP 04/25/24 04/26/24 14:02 05:41 Sodium 135 L 137 Potassium 5.0 4.8 Chloride 107 109 H Carbon Dioxide 23 18 L BUN 42 H 37 H Creatinine 2.61 H 2.30 H D Glucose 143 H 150 H Calcium 9.0 9.2 Urine 04/25/24 Range/Units Unknown Urine Color Yellow Urine Appearance Clear (Clear) Urine pH 6.5 (4.5-7.5) Ur Specific [place] 1.013 (1.000-1.030) Urine Protein 1+ H (Negative) Urine Glucose (UA) 3+ H (Negative)
[2024-04-26 13:02] LABS: A calco-baum cmplx NotReported Not Detected (NotDetected); Bact fragilis Not Reported Not Detected (NotDetected); Blood Culture Id Panel See PCR Comment (NotDetected); C auris Not Reported Not Detected (NotDetected); Calbicans Not Reported Not Detected (NotDetected); Candida glabrata Not Reported Not Detected (NotDetected); Candida krusei Not Reported Not Detected (NotDetected); Cneoformans/gatti Not Reported Not Detected (NotDetected); Cparapsilosis Not Reported Not Detected (NotDetected); E cloacae compx Not Reported Not Detected (NotDetected); Efaecalis Not Reported Not Detected (NotDetected); Efaecium Not Reported Not Detected (NotDetected); Enterobacterales Not Reported Not Detected (NotDetected); Escherichia coli Not Reported Not Detected (NotDetected); H influenzae Not Reported Not Detected (NotDetected); K aerogenes Not Reported Not Detected (NotDetected); Koxytoca Not Reported Not Detected (NotDetected); Kpneumoniae grp Not Reported Not Detected (NotDetected); Lmonocyt Not Reported Not Detected (NotDetected); N meningitidis Not Reported Not Detected (NotDetected); P aeruginosa Not Reported Not Detected (NotDetected); Proteus spp Not Reported Not Detected (NotDetected); Salmonella spp Not Reported Not Detected (NotDetected); Smarcescens Not Reported Not Detected (NotDetected); Staph lugdunensis Not Reported Not Detected (NotDetected); Staph spp. Not Reported DETECTED (NotDetected); Staphaureus Not Reported DETECTED (NotDetected); Staphepi Not Reported Not Detected (NotDetected); Stenmaltophilia Not Reported Not Detected (NotDetected); Strep agal(GrpB) Not Reported Not Detected (NotDetected); Strep pneum Not Reported Not Detected (NotDetected); Strep pyog (GrpA) Not Reported Not Detected (NotDetected); Strep spp Not Reported Not Detected (NotDetected); mecAC+MREJ Resistant Gene MRSA Not Detected (NotDetected)
[2024-04-26] MEDS: MAGNESIUM SULFATE / D5W 1 GM/100 ML BAG IV ONE (13:34)
[2024-04-26 13:35] LABS: Staphylococcus spp. DETECTED (NotDetected)
--- NOTE | 2024-04-26 15:50 | Urology Consultation ---
Date of Consultation April 26, 2024 Assessment & Plan (1) UTI (urinary tract infection): (2) BRUNA (acute kidney injury): (3) Acute urinary retention: (4) BPH loc w urin obs/LUTS: Plan 53yo/M with a hx of BPH w/urinary obstruction/LUTS admitted with urinary retention, BRUNA, suspected UTI. CT abd pelvis on arrival shows no urinary calculi, no hydronephrosis and bladder wall thickening similar to prior imaging. - Afebrile and hemodynamically stable at present - Labs show leukocytosis improved from 1610 today, hemoglobin 8.2, creatinine downtrending 2.62.3 today. - Urine and blood cultures pending. - Rushing intact and draining appropriately- urine is clear yellow - No acute intervention warranted - Continue antibiotics and tailor as culture data becomes available - Maintain Rushing catheter for bladder decompression - We discussed trial of topical lidocaine around catheter insertion site for pain, he declined - Continue supportive care and pain management as needed - Patient is scheduled for follow-up with [facility]. - Urology will follow peripherally. Please call with any questions/concerns. History of Present Illness Attending Physician: Dori Louie MD History of Present Illness 53 year old male with a PMHx including chronic systolic heart failure, CAD s/p [place] w/ stenting in 2013, HTN, hyperlipidemia, ischemic cardiomyopathy, DM2, GERD, CKD3, prior PE, prior CVA w/ mild cognitive disability, and hx alcohol abuse who presented to the ED with increased urethral pain that he relates to his Rushing catheter. Per chart review, patient reported that his HH nurse changed his catheter last and since then, he has had worsening pain in the urethra. The Rushing was removed prior to his arrival in the ED. He also noted bleeding from the penis. In the ED, he was afebrile and hypotensive. Labs showing a leukocytosis of 16 and creatinine 2.6. Urinalysis with 3+ blood, negative nitrite, 1+ LE, negative bacteria. A Rushing catheter was reinserted. CT abdomen pelvis noting no urinary calculi or hydronephrosis and bladder wall thickening noted which was similar to prior imaging. Patient admitted to medicine service. Urine and blood cultures collected and pending. He is on Zosyn. CT abdomen pelvis- 1. Multifocal left lower lobe and lingular consolidation and groundglass opacities suggestive of pneumonia or aspiration pneumonitis. 2. Persistent 1.2 cm nodular opacity within the right lower lobe. This remains indeterminate and a follow-up chest CT in 3 months to ensure resolution is recommended. 3. No urinary calculi or hydronephrosis. Bladder wall thickening, similar to prior PET/CT. Rushing in place. 4. Moderate amount of stool within the colon. No evidence for a bowel obstruction. 5. Gallbladder wall thickening, similar to prior CT. Resolution of gallbladder distention. 6. Gastric fold thickening. This may be due to underdistention however gastritis could appear similar. Pt seen at bedside today. Awake, resting in bed on arrival. No acute distress. Rushing intact and draining appropriately. Hx of BPH w/urinary obstruction/LUTS. Previously seen in our office by Dr. Angel. Patient was scheduled for TURP procedure but he canceled the procedure. Allergies Allergy/AdvReac Type Severity Reaction Status Date / Time No Known Allergies Allergy Verified 04/25/24 16:14 Home Medications Medication Instructions Recorded Confirmed Type clopidogrel 75 mg tablet (Plavix) 75 mg PO QAM 06/05/21 04/25/24 History atorvastatin 20 mg tablet 20 mg PO QAM 09/08/23 04/25/24 History lisinopril 10 mg tablet 10 mg PO BID #30 tabs 09/23/23 04/25/24 Rx spironolactone 25 mg tablet 25 mg PO QAM #30 tabs 09/23/23 04/25/24 Rx apixaban 5 mg tablet (Eliquis) 5 mg PO Q12H 10/08/23 04/25/24 History tamsulosin 0.4 mg capsule 0.4 mg PO HS #30 caps 10/09/23 04/25/24 Rx metoprolol succinate 50 mg 25 mg (1/2 x 50 mg) PO BID #30 tabs 10/12/23 04/25/24 Rx tablet,extended release 24 hr ropinirole 0.25 mg tablet 0.25 mg PO HS #30 tabs 10/12/23 04/25/24 Rx flash glucose sensor (FreeStyle #1 ea 01/01/24 04/25/24 History Yulissa 2 Sensor kit) lorazepam 0.5 mg tablet 0.5 mg PO BID PRN Anxiety 01/01/24 04/25/24 History metformin 500 mg tablet,extended 1,000 mg PO QAM 01/01/24 04/25/24 History release 24 hr sertraline 25 mg tablet 25 mg PO QAM 01/01/24 04/25/24 History mirtazapine 30 mg tablet 30 mg PO HS 01/11/24 04/25/24 History empagliflozin 10 mg tablet 10 mg PO QAM 01/19/24 04/25/24 History (Jardiance) ondansetron HCl 4 mg tablet 4 mg PO Q8 PRN Nausea 04/25/24 04/25/24 History oxycodone 5 mg tablet 5 mg PO Q8 PRN Severe Pain (Scale 04/25/24 04/25/24 History Score 7-10) pantoprazole 40 mg tablet,delayed 40 mg PO QAM 04/25/24 04/25/24 History release Patient History Medical History Rushing catheter in place Enlarged prostate Hx pulmonary embolism 09/08/23- bilateral PEs History of suicidal ideation (~2020) voluntary admission [facility] Hx of congestive heart failure (~10/2023) [facility] Hx of pancreatitis LV (left ventricular) mural thrombus Noted on 09/17/23 ECHO- currently on Eliquis CKD (chronic kidney disease), stage III Ischemic cardiomyopathy EF=20-25% 09/2023 Dyslipidemia Depression CAD (coronary artery disease) (~2013) 2014 - NSTEMI s/p BRUCE to RCA Cardiac cath 09/22/23 ([facility])- no stents or bypass (did show three vessel CAD) DM type 2 (diabetes mellitus, type 2) Hgb A1C 12.4 Only on Metformin as of 01/19/24 History of cerebrovascular accident (~2019) x5 "multiple mini strokes" [facility], no current neurologist, left arm "almost useless" and left side "doesn't work quite right" Most recent CVA 2020 per records Carotid stenosis, bilateral s/ right CEA (2019) Hypertension Surgical History Hx of cardiac catheterization (~09/2023) [facility], no stents Hx of endarterectomy (06/28/20) Right Carotid Endarterectomy with Bovine Patch Angioplasty Dr. Arita 06/28/2020 S/P drug eluting coronary stent placement (~2013) [facility], currently follows at [facility] Family History Mother , age 68 from metastatic lung cancer Lung cancer Father No problems noted. 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[employer], 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 Feels Safe at Home: Yes Safety Concerns: Feels Safe At This Time Assistive Devices: None Review of Systems Review of Systems: All systems reviewed & are unremarkable except as noted in HPI & below Physical Exam Constitutional: well developed and well nourished; no acute distress Neck: normal visual inspection Respiratory: no respiratory distress and no labored breathing Musculoskeletal: Head/Neck/Chest: normocephalic Skin: No visible rashes or lesions to exposed skin areas Neurologic: awake Psychiatric: A+Ox3, euthymic affect Genitourinary: Rushing intact and draining clear yellow urine Results & Data Vital Signs (Past 12 Hours) Vital Signs Temp Pulse Pulse Resp BP Pulse Ox O2 Del Method 04/26/24 12:04 36.9 C 78 18 112/65 96 Room Air 04/26/24 09:53 91 H 04/26/24 08:04 36.7 C 73 16 116/70 96 Room Air 04/26/24 05:34 79 PG Care Time/CCT Total # of Minutes Spent Total Time Spent with Patient: Total time spent is greater than 50% in coordination of care (as documented) at patient's floor/unit and/or counseling patient: Coding Level of Care Code 87228 IN/OBS CONSULT LVL 3,45M Diagnoses UTI (urinary tract infection) N39.0 BRUNA (acute kidney injury) N17.9 Acute urinary retention R33.8 BPH loc w urin obs/LUTS N40.1
[2024-04-27 06:43] LABS: Hematocrit (blood only) 28.5 % (42.0-52.0); Mean Corpuscular Hemoglobin 23.2 pg (25.0-34.0); Mean Corpuscular Hgb Conc 31.6 g/dL (32.0-36.0); Mean Corpuscular Volume 73.5 fL (80.0-100.0); Platelet Count 307 K/uL (130-400); RDW Coefficient of Variation 17.2 % (11.5-14.5); RDW Standard Deviation 45.7 fL (36.4-46.3); Red Blood Count 3.88 M/uL (4.70-6.10); White Blood Count 11.36 K/ul (4.8-10.8)
[2024-04-27 06:51] LABS: BUN Creatinine Ratio 14.5 (10-20); Calcium 9.4 mg/dl (8.6-10.3); Est GFR (African American) 38.2 ml/min; Magnesium 2.1 mg/dl (1.7-2.4); Potassium 4.8 mmol/L (3.5-5.1)
--- NOTE | 2024-04-27 08:22 | Hospitalist Progress Note ---
Date of Service April 27, 2024 Assessment & Plan (1) Aspiration pneumonia: (2) Acute kidney injury superimposed on CKD: (3) Penile pain: (4) Hypomagnesemia: (5) BPH (benign prostatic hyperplasia): (6) BPH w/o urinary obs/LUTS: (7) Chronic HFrEF (heart failure with reduced ejection fraction): (8) Left ventricular apical thrombus: (9) ASCVD (arteriosclerotic cardiovascular disease): (10) Recurrent pulmonary embolism: Plan Bacteremia: Aspiration pneumonia Sepsis, multifactorial, POA Acute CT abdomen pelvis indicated multifocal left lower lobe consolidation suggestive of pneumonia/aspiration pneumonitis blood cultures Gram + Cocci in clusters Staph Obtain ECHO today Persistent 1.2 cm opacity within RLL; repeat CT recommended in 3 months as outpatient Mild leukocytosis 10.43; improved from 16 Started on IV Zosyn and based on BC 11/19 growing staph; transitioned to Cefazolin and Levaquin today MRSA nares negative Incentive spirometry, flutter valve sputum culture ordered BRUNA superimposed on CKD: Penile discomfort: Acute Serum creatinine today 2.20; yesterday 2.61; baseline Urinalysis LE +1, WBC 21-50, +3 blood CTAP: -No urinary calculi or hydronephrosis. Bladder wall thickening, similar to prior PET/CT. Giles in place. -Moderate amount of stool within the colon. No evidence for a bowel obstruction. -Gallbladder wall thickening, similar to prior CT. Resolution of gallbladder distention. -Gastric fold thickening. This may be due to underdistention however gastritis could appear similar. Started on IV Zosyn and based on BC 11/19 growing staph; transitioned to Cefazolin and Levaquin today has signed off today; no intervention indicated could consider oxybutynin for possible bladder spasms. Will fluid challenge with NS to see if marked improvement with BRUNA; baseline is normal creatinine 1.1-1.2 consider renal ultrasound if no improvement on labs with fluids and changed abx Hypomagnesemia: Acute Patient had 6 beat run of asymptomatic V. tach overnight 04/25-04/26 noted by tele monitor Magnesium 2.1 this AM; no ectopy BPH without urinary obstruction/LUTS: Chronic Indwelling Giles changed in ER Reports penile meatus discomfort Hold tamsulosin for now Offered topical lidocaine around catheter insertion site; patient declined x 2 Urology consult placed; will continue to follow as outpatient and offer supportive care and pain management as needed Per consultation no acute intervention by warranted Has plans for TURP per his discussion HFrEF: Left ventricular apical thrombus: Ischemic cardiomyopathy, severe coronary artery disease: 09/17/23: ECHO 09/17 EF 20-25%, severe hypokinesis & Left ventricular apical thrombus discovered in the setting of severe cardiomyopathy Status post cardiac cath 09/22: Three-vessel coronary artery disease with markedly elevated left end-diastolic pressure. Diffuse coronary atherosclerosis but degree of coronary disease disproportionate to degree of systolic dysfunction Takes plavix, eliquis combo for thrombus/severe CAD Cont Metoprolol and Lisinopril ASCVD: H/O CVA: Occurred in 2019 Continue atorvastatin PT/OT given history of stroke Recent Pulmonary Emboli c/b Pulmonary Infarct Continue Eliquis Disposition: PCP: Dr. Gaspar Code Status: Full Code VTE Prophylaxis: on Eliquis I spent a total of 52 minutes coordinating, documenting and providing care for this patient excluding time spent in performance of separately billed services Admission and Anticipated Discharge Date Admission Date: April 25, 2024 Supervising Physician Co-Signing Physician Notes Attending Addendum: Case reviewed with the advanced practitioner. I have personally performed a history and physical examination on the patient. I have reviewed the advanced practitioner's documentation on the date of service referenced in note, and I agree with, and take responsibility for the plan of care. please refer to her notes for full details patient seen and examined, records reviewed by myself as well on exam, patient [] no other symptoms VS noted and reviewed oriented , not in distress, speaks in sentences with no effort nor accessory muscle use normal rate, regular rhythm, no murmurs clear breath sounds bilaterally non distended, soft, nontender no bipedal edema, erythema, warmth no neuro deficits all labs, imaging noted and reviewed ASSESSMENT AND PLAN Sepsis, multifactorial, POA other diagnoses and plan of care as per advanced practitioner's notes Jarocho Sales MD Subjective Pt sitting in his hospital bed in no apparent distress complaints of penile discomfort that 'extends through his urethral back towards his rectum' denies SOB, chest pain urine appears clear in giles catheter purulent drainage noted around meatus; dried dark blood on inner thigh from meatus; has been cleaned Stage 1 sacral pressure ulcer, no open areas; denies pain Review of Systems Review of Systems: Neuro: (-) Falls, trauma, slurred speech HEENT: (-) COLES, dizziness, dysphagia, visual or auditory changes CV: (-) CP, palpitations, swelling Resp: (-) SOB GI: (-) appetite changes, N/V/D, bowel changes : (-) urinary changes (+) penile meatus discomfort Skin: (-) rashes Psych: (-) anxiety, depression Physical Exam Physical Exam: Neuro: AAOx4, PERRLA, no aphagia, memory changes, CNII-XII grossly intact HEENT: head normocephalic, moist mucus membranes CV: S1/S2, (-) M/G/R, (-) edema, cap refill < 3 seconds Resp: Lungs CTA in all traylor. On RA GI: Abdomen S/NT/ND, Ax4 bowel sounds, (-) CVA tenderness : Indwelling chronic giles catheter with clear output. purulent drainage around penile meatus. Musculoskeletal: 5/5 B/L UE strength, 5/5 B/L LE strength. No gait disturbance Skin: (-) rashes , (-) erythema. Psych: euthymic mood Results & Data Results & Data Vital Signs (Past 12 Hours) Vital Signs Temp Pulse Pulse Resp BP BP Pulse Ox 04/27/24 07:47 36.6 C 69 18 136/78 94 04/27/24 07:24 04/27/24 02:50 36.8 C 74 16 99/67 L 94 04/26/24 23:41 36.6 C 71 16 114/67 97 04/26/24 22:40 82 O2 Del Method 04/27/24 07:47 Room Air 04/27/24 07:24 Room Air 04/27/24 02:50 Room Air 04/26/24 23:41 Room Air 04/26/24 22:40 Laboratory Results Short CBC 04/27/24 Range/Units 06:00 WBC 11.36 H (4.8-10.8) K/ul Hgb 9.0 L (14.0-18.0) g/dl Hct 28.5 L (42.0-52.0) % Plt Count 307 (130-400) K/uL BMP 04/27/24 06:00 Sodium 137 Potassium 4.8 Chloride 108 H Carbon Dioxide 22 BUN 32 H Creatinine 2.20 H Glucose 140 H Calcium 9.4
[2024-04-27] MEDS: SODIUM CHLORIDE 0.9% 1,000 ML IV SCH (10:33)
[2024-04-27 11:46] LABS: Estimated Average Glucose 177 mg/dl; Hemoglobin A1C 7.8 % (4.5-5.6)
[2024-04-27] MEDS: levoFLOXacin 750 MG TAB PO SCH (13:56)
[2024-04-27] MEDS: ceFAZolin 2000MG 2,000 MG/15 ML SYR IV SCH (14:23)
--- NOTE | 2024-04-27 14:43 | Urology Progress Note ---
Date of Service April 27, 2024 Assessment & Plan (1) UTI (urinary tract infection): (2) BRUNA (acute kidney injury): (3) Acute urinary retention: (4) BPH loc w urin obs/LUTS: Plan 53yo/M with a hx of BPH w/urinary obstruction/LUTS admitted with urinary retention, BRUNA, suspected UTI. CT abd pelvis on arrival shows no urinary calculi, no hydronephrosis and bladder wall thickening similar to prior imaging. - Afebrile and hemodynamically stable at present - Labs show leukocytosis 11.36, hemoglobin 9.0, creatinine downtrending 2.62.3- 2.2 today. Continue to trend. - Urine culture prelim with staph species. - Blood cultures prelim 11/19 staph species, repeat BCx pending. - Rushing intact and draining appropriately- urine is clear yellow - No acute intervention warranted - Continue antibiotics and tailor as culture data becomes available - Maintain Rushing catheter for bladder decompression - Continues to have discomfort in urethra/penile meatus. Pt offered topical lidocaine around catheter insertion site but has declined. Could consider oxybutyin prn for possible bladder spasms? - Continue supportive care and pain management as needed. - Patient prefers to follow-up with [facility] for further management/discussion of BPH and urinary retention. - Urology will follow peripherally. Please call with any questions/concerns. Admission and Anticipated Discharge Date Admission Date: April 25, 2024 Subjective Pt seen at bedside today Awake, resting in bed on arrival No acute distress Rushing draining clear yellow urine Still with urethral pain Denies f/c/n/v Review of Systems Constitutional: as per Subjective / HPI Genitourinary: + as per Subjective / HPI Physical Exam Constitutional: well developed and well nourished; no acute distress Respiratory: no respiratory distress and no labored breathing Neurologic: awake Psychiatric: A+Ox3, euthymic affect Genitourinary: Rushing intact and draining clear yellow urine Results & Data Vital Signs (Past 12 Hours) Vital Signs Temp Pulse Pulse Resp BP BP Pulse Ox 04/27/24 13:01 36.6 C 73 16 103/71 96 04/27/24 08:25 69 04/27/24 07:47 36.6 C 69 18 136/78 94 04/27/24 07:24 06/12/24 02:50 36.8 C 74 16 99/67 L 94 O2 Del Method 04/27/24 13:01 Room Air 04/27/24 08:25 04/27/24 07:47 Room Air 04/27/24 07:24 Room Air 04/27/24 02:50 Room Air PG Care Time/CCT Total # of Minutes Spent Total Time Spent with Patient: Total time spent is greater than 50% in coordination of care (as documented) at patient's floor/unit and/or counseling patient: Coding Level of Care Code 46021 SUB INP/OBS CARE 2/35MIN Diagnoses UTI (urinary tract infection) N39.0 BRUNA (acute kidney injury) N17.9 Acute urinary retention R33.8 BPH loc w urin obs/LUTS N40.1
[2024-04-27] MEDS ORDERED: NITROGLYCERIN SL 0.4 MG/TAB TAB SL PRN (22:16)
--- NOTE | 2024-04-27 22:18 | Communication Note ---
Date of Service: April 27, 2024 1015 PM Patient complained to RN of substernal pain going to his neck similar to heart attack in the past. SBP 170s. Chest pain relieved by nitroglycerin. EKG as per my interpretation rate 110, sinus tachycardia, LAD, LAFB, ST elevation inferior leads, ST depression lateral leads AP STEMI History CAD status post stent N.p.o. for now Check troponin Hold Eliquis Case discussed with Dr. Mosquera (manager commodities on-call) over the phone. He recommends starting IV heparin while Eliquis on hold. Continue Plavix. N.p.o. status, Dr. Mosquera requesting for call back if patient develops chest pain overnight Cardiology consult in a.m. (patient known to [facility] service) PCU transfer from current med/tele bed.
[2024-04-27] MEDS: NITROGLYCERIN SL 0.4 MG/TAB TAB SL STA (22:21)
[2024-04-27] MEDS: SODIUM CHLORIDE 0.9% 1,000 ML IV ONE (22:54)
[2024-04-27] MEDS: METOPROLOL TARTRATE 1 MG/ML VIAL IV STA (23:20)
[2024-04-27] MEDS: NITROGLYCERIN SL 0.4 MG/TAB TAB ONE (23:26)
[2024-04-27 23:31] LABS: Basophils # (auto) 0.06 K/uL (0.00-0.20); Basophils % (auto) 0.5 %; Eosinophils # (auto) 0.38 K/uL (0.00-0.50); Eosinophils % (auto) 3.2 %; Hematocrit (blood only) 29.8 % (42.0-52.0); Hemoglobin 9.5 g/dl (14.0-18.0); Immature Granulocytes # (auto) 0.42 K/uL (0.01-0.20); Immature Granulocytes % (auto) 3.6 %; Lymphocytes # (auto) 2.66 K/uL (1.20-3.40); Lymphocytes % (auto) 22.6 %; Mean Corpuscular Hemoglobin 23.1 pg (25.0-34.0); Mean Corpuscular Hgb Conc 31.9 g/dL (32.0-36.0); Mean Corpuscular Volume 72.3 fL (80.0-100.0); Mean Platelet Volume 9.7 fL (9.4-12.4); Monocytes # (auto) 0.57 K/uL (0.11-0.59); Monocytes % (auto) 4.8 %; Neutrophils # (auto) 7.67 K/uL (1.40-6.50); Neutrophils % (auto) 65.3 %; Platelet Count 338 K/uL (130-400); RDW Coefficient of Variation 17.2 % (11.5-14.5); RDW Standard Deviation 44.5 fL (36.4-46.3); Red Blood Count 4.12 M/uL (4.70-6.10); White Blood Count 11.76 K/ul (4.8-10.8)
[2024-04-27] MEDS: HEPARIN SODIUM/DEXTROSE 25,000 UNITS/500 ML BAG IV SCH (23:45)
[2024-04-27] MEDS: Heparin IV Adult Wt-Based Standard *NO* INITIAL Bolus Protocol IV STA (23:49)
[2024-04-28 00:12] LABS: Partial Thromboplastin Ratio 1.1; Partial Thromboplastin Time 30 Seconds (21-31)
[2024-04-28 06:09] LABS: Hematocrit (blood only) 29.7 % (42.0-52.0); Hemoglobin 9.3 g/dl (14.0-18.0); Mean Corpuscular Hgb Conc 31.3 g/dL (32.0-36.0); Mean Corpuscular Volume 73.3 fL (80.0-100.0); Mean Platelet Volume 9.7 fL (9.4-12.4); Nucleated RBC # (auto) 0.03 K/uL (0.00-0.12); Nucleated RBC % (auto) 0.2 %; Platelet Count 341 K/uL (130-400); RDW Coefficient of Variation 17.2 % (11.5-14.5); RDW Standard Deviation 45.2 fL (36.4-46.3); Red Blood Count 4.05 M/uL (4.70-6.10); White Blood Count 14.11 K/ul (4.8-10.8)
[2024-04-28 06:25] LABS: BUN Creatinine Ratio 13.2 (10-20); Calcium 9.5 mg/dl (8.6-10.3); Chol HDL Ratio 4.6 (0-5); Creatinine Clr Calc Pharmacy 44.3 ml/min; Est GFR (African American) 50.8 ml/min; Est GFR (Non-African American) 43.8 ml/min; Magnesium 1.8 mg/dl (1.7-2.4); Potassium 4.8 mmol/L (3.5-5.1)
[2024-04-28 06:31] LABS: Troponin I High Sensitivity 32.3 pg/ml (0-20)
--- NOTE | 2024-04-28 08:54 | Cardiology Consultation ---
Date of Consultation April 28, 2024 Assessment & Plan (1) Chest pain: (2) Elevated troponin I level: (3) Chronic ischemic heart disease: (4) BRUNA (acute kidney injury): (5) Anemia: (6) Tachycardia: (7) Hematuria: (8) Aspiration pneumonia: Plan 53-year-old male admitted with hematuria, aspiration pneumonia, and acute renal insufficiency. Transient episode of chest discomfort associated with stress last evening as described above. ECG with inferior Q waves with minor ST elevations similar to prior tracings. High-sensitivity troponin elevated due to demand ischemia in the setting of chronic coronary disease, aspiration pneumonia, anemia, tachycardia, and acute renal insufficiency. Repeat echocardiogram demonstrating improved LV systolic function with inferior posterior wall motion abnormality. Regional wall motion abnormality consistent with known chronic total occlusion of the right coronary artery. Patient appears euvolemic at this time. Continue current cardiovascular medications including clopidogrel, atorvastatin, and metoprolol succinate. No further cardiac testing recommended at this time. IV heparin may be transitioned back to oral Eliquis if no further procedures are planned from a urologic perspective. All questions answered to patient's satisfaction. Thank you for allow me to participate in the care of your patient. I spent a total of 55 minutes on the date of service in preparation, delivery, and documentation of the care provided to this patient, excluding any time spent in the performance of separately billed services. History of Present Illness Reason for Consultation: chest pain Requesting Physician: Dr. Garcia Attending Physician: Jarocho Sales MD History of Present Illness 53-year-old male history of coronary artery disease, inferior myocardial infarction 2013, ischemic cardiomyopathy with normalization of LV function, pulmonary embolism 08/2023, CVA with mild cognitive disability, and right carotid endarterectomy presented to the emergency department due to hematuria, urethral pain, BRUNA on CKD. Reports episode of chest discomfort last evening associated with stress. Patient was having difficulty with his IV. Unable to move his left arm which created significant stress and frustration. Reports transient chest discomfort lasting a few minutes associated with sinus tachycardia and hypertension. Received 1 sublingual nitro per nursing. No recurrent chest pain overnight. High-sensitivity troponin minimally elevated. Review of prior ECG demonstrates inferior Q waves with subtle ST elevation on prior ECGs. ST elevation somewhat more pronounced on ECG performed last evening. Today, patient is feeling well. Denies recurrent chest discomfort or heaviness. Complains of continued urethral pain. No recurrent hematuria. Voices frustration regarding his urologic issues and problems with catheterization. Denies any exertional chest pain or unusual shortness of breath prior to hospitalization. No orthopnea, PND, or lower extremity edema. Allergies Allergy/AdvReac Type Severity Reaction Status Date / Time No Known Allergies Allergy Verified 04/25/24 16:14 Home Medications Medication Instructions Recorded Confirmed Type clopidogrel 75 mg tablet (Plavix) 75 mg PO QAM 06/05/21 04/25/24 History atorvastatin 20 mg tablet 20 mg PO QAM 09/08/23 04/25/24 History lisinopril 10 mg tablet 10 mg PO BID #30 tabs 09/23/23 04/25/24 Rx spironolactone 25 mg tablet 25 mg PO QAM #30 tabs 09/23/23 04/25/24 Rx apixaban 5 mg tablet (Eliquis) 5 mg PO Q12H 10/08/23 04/25/24 History tamsulosin 0.4 mg capsule 0.4 mg PO HS #30 caps 10/09/23 04/25/24 Rx metoprolol succinate 50 mg 25 mg (1/2 x 50 mg) PO BID #30 tabs 10/12/23 04/25/24 Rx tablet,extended release 24 hr ropinirole 0.25 mg tablet 0.25 mg PO HS #30 tabs 10/12/23 04/25/24 Rx flash glucose sensor (FreeStyle #1 ea 01/01/24 04/25/24 History Yulissa 2 Sensor kit) lorazepam 0.5 mg tablet 0.5 mg PO BID PRN Anxiety 01/01/24 04/25/24 History metformin 500 mg tablet,extended 1,000 mg PO QAM 01/01/24 04/25/24 History release 24 hr sertraline 25 mg tablet 25 mg PO QAM 01/01/24 04/25/24 History mirtazapine 30 mg tablet 30 mg PO HS 01/11/24 04/25/24 History empagliflozin 10 mg tablet 10 mg PO QAM 01/19/24 04/25/24 History (Jardiance) ondansetron HCl 4 mg tablet 4 mg PO Q8 PRN Nausea 04/25/24 04/25/24 History oxycodone 5 mg tablet 5 mg PO Q8 PRN Severe Pain (Scale 04/25/24 04/25/24 History Score 7-10) pantoprazole 40 mg tablet,delayed 40 mg PO QAM 04/25/24 04/25/24 History release Patient History Medical History Rushing catheter in place Enlarged prostate Hx pulmonary embolism 09/08/23- bilateral PEs History of suicidal ideation (~2020) voluntary admission [facility] Hx of congestive heart failure (~10/2023) [facility] Hx of pancreatitis History of cerebrovascular accident (~2019) x5 "multiple mini strokes" [facility], no current neurologist, left arm "almost useless" and left side "doesn't work quite right" Most recent CVA 2020 per records Surgical History Hx of cardiac catheterization (~09/2023) [facility], no stents S/P drug eluting coronary stent placement (~2013) [facility], currently follows at [facility] Family History Mother , age 68 from metastatic lung cancer Lung cancer Father No problems noted. Social History Smoking Status: Current every day smoker Tobacco Type: Cigarettes Cigarettes Per Day: <1 PPD, advised; Second Hand Exposure: No; Do You Dip or Chew Tobacco: No; Hx Alcohol Use: No Hx Substance Use: No Preferred Language: Luxembourgish Communication Ability: Effective Wildlife Conservationist Required: No Beliefs That Will Affect Care: None marital status: Single Current Living Situation: Alone Current Living Situation Comment: friend current occupational status: previously employed current occupation: [employer] employee Other Information That Helps Us Care for You: No other: 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[employer], 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 Feels Safe at Home: Yes Safety Concerns: Feels Safe At This Time Assistive Devices: None Review of Systems Review of Systems: All systems reviewed & are unremarkable except as noted in Subjective Physical Exam Constitutional: well nourished; no acute distress Respiratory: normal respiratory effort; no respiratory distress, no labored breathing and no retractions Cardiovascular: Rate/Rhythm: regular rate and regular rhythm Heart Sounds: normal S1 and normal S2; no murmur Vessels: no JVD and no carotid bruit Extremities: no edema Gastrointestinal (Abdomen): Inspection/Auscultation: abdomen normal to inspection and normal bowel sounds; abdomen not distended Percussion/Palpation: abdomen soft; abdomen nontender, no guarding and abdomen not rigid Neurologic: CN's II-XI intact bilaterally and moves all extremities; no focal motor deficits Results & Data Vital Signs (Past 12 Hours) Vital Signs Temp Pulse Pulse Resp BP BP BP 04/28/24 08:35 36.7 C 70 18 134/73 04/28/24 03:34 36.7 C 72 18 107/72 04/27/24 23:41 37.0 C 98 H 18 105/74 04/27/24 23:20 103 H 114/79 04/27/24 22:51 103 H 18 114/79 04/27/24 22:41 98 H 04/27/24 22:41 98 H 04/27/24 22:34 106 H 143/96 H 04/27/24 22:16 36.6 C 113 H 22 171/123 H Pulse Ox O2 Del Method 04/28/24 08:35 98 Room Air 04/28/24 03:34 99 Room Air 04/27/24 23:41 94 Room Air 04/27/24 23:20 04/27/24 22:51 95 Room Air 04/27/24 22:41 04/27/24 22:41 04/27/24 22:34 04/27/24 22:16 99 Room Air Laboratory Results Cardiac Enzymes 04/27/24 04/28/24 Range/Units 22:54 05:40 Troponin I High Sens 12.2 32.3 H D (0-20) pg/ml Coagulation 04/27/24 Range/Units 22:54 APTT 30 (21-31) Seconds Lipids 04/28/24 Range/Units 05:40 Triglycerides 130 (0-150) mg/dl Cholesterol 102 (0-200) mg/dl HDL Cholesterol 22 mg/dl Cholesterol/HDL Ratio 4.6 (0-5) CBC 04/27/24 04/28/24 Range/Units 22:54 05:40 WBC 11.76 H 14.11 H (4.8-10.8) K/ul RBC 4.12 L 4.05 L (4.70-6.10) M/uL Hgb 9.5 L 9.3 L (14.0-18.0) g/dl Hct 29.8 L 29.7 L (42.0-52.0) % Plt Count 338 341 (130-400) K/uL Neut # (Auto) 7.67 H (1.40-6.50) K/uL Lymph # (Auto) 2.66 (1.20-3.40) K/uL [place] # (Auto) 0.57 (0.11-0.59) K/uL Eos # (Auto) 0.38 (0.00-0.50) K/uL Baso # (Auto) 0.06 (0.00-0.20) K/uL Comprehensive Metabolic Panel 04/28/24 Range/Units 05:40 Sodium 138 (136-145) mmol/L Potassium 4.8 (3.5-5.1) mmol/L Chloride 109 H (98-107) mmol/L Carbon Dioxide 21 (21-32) mmol/L BUN 23 (6-23) mg/dl Creatinine 1.74 H D (0.6-1.4) mg/dl Glucose 159 H (70-99(Fasting)) mg/dl Calcium 9.5 (8.6-10.3) mg/dl Intake and Output 04/27/24 04/28/24 04/28/24 22:59 06:59 14:59 Intake Total 1466.667 / 1732.267 165.6 / 1732.267 0 / 0 Output Total 1800 / 2700 900 / 2700 Balance -333.333 / -967.733 -734.4 / -967.733 0 / 0 Intake: IV 986.667 / 1252.267 165.6 / 1252.267 0 / 0 Heparin Sodium/Dextrose 25,000 165.6 / 165.6 0 / 0 units In 500 ml @ 1,150 UNITS/ HR 23 mls/hr IV .[id number] YADIRA Rx #:[id number] Sodium Chloride 0.9% 1,000 ml @ 986.667 / 986.667 80 mls/hr IV .[id number] YADIRA Rx#: [id number] Oral 480 / 480 0 / 480 Output: Urine Amount (Catheter) 1800 / 2700 900 / 2700 Rushing/Indwelling 1800 / 2700 900 / 2700 Other: Other Intake Source npo Weight 66.633 kg Weight Measurement Method Built in [facility] Diagnostic Findings Cardiac catheterization 09/22/2023: Coronary angiography: Right dominant anatomy Left main: Long with mild calcification but no obstruction Left anterior descending: Type 2 in distribution. It gives rise to a modest caliber diagonal branch shortly after its origin. There is diffuse atherosclerosis, with serial 50% stenoses proximal to mid vessel Ramus intermedius: Very large caliber trifurcating vessel with diffuse disease, 70% proximal, 60% mid 80% distal stenoses. 2 subbranches with ostial disease a second is very trivial in size but with subtotal stenosis Left circumflex: Modest caliber vessel. It gives rise to a trivial marginal branch at the end of its proximal third and a single posterolateral branch. Left circumflex has diffuse disease with a 70% narrowing at the origin of the marginal. Marginal branch is diffusely diseased. Right coronary artery: Ostial and diffuse disease with proximal vessel 100% occlusion. Very faint filling of the vessel distally via left to right collaterals. (1) Chest pain Chest pain type: chest pain due to myocardial ischemia Ischemic chest pain type: stable angina pectoris Qualified Code(s): I20.89 - Other forms of angina pectoris (8) Aspiration pneumonia Aspiration pneumonia type: unspecified Laterality: unspecified laterality Lung location: unspecified part of lung Qualified Code(s): J69.0 - Pneumonitis due to inhalation of food and vomit
[2024-04-28] MEDS: oxyCODONE HCL IR 5 MG TAB (IMMEDIATE RELEASE) PO PRN (09:13)
--- NOTE | 2024-04-28 12:15 | Hospitalist Progress Note ---
Date of Service April 28, 2024 Assessment & Plan (1) Aspiration pneumonia: (2) Acute kidney injury superimposed on CKD: (3) Penile pain: (4) Hypomagnesemia: (5) BPH (benign prostatic hyperplasia): (6) BPH w/o urinary obs/LUTS: (7) Chronic HFrEF (heart failure with reduced ejection fraction): (8) Left ventricular apical thrombus: (9) ASCVD (arteriosclerotic cardiovascular disease): (10) Recurrent pulmonary embolism: Plan Bacteremia: Aspiration pneumonia Sepsis, multifactorial, POA Acute CT abdomen pelvis indicated multifocal left lower lobe consolidation suggestive of pneumonia/aspiration pneumonitis blood cultures Gram Staph aureus Obtain ECHO today Persistent 1.2 cm opacity within RLL; repeat CT recommended in 3 months as outpatient Mild leukocytosis 10.43; improved from 16 Started on IV Zosyn and based on BC 11/19 growing staph aureus on 04/25; transitioned to Cefazolin and Levaquin today BC negative on 04/26 thus far MRSA nares negative Incentive spirometry, flutter valve sputum culture ordered Infectious disease consulted - await their recs BRUNA superimposed on CKD: Penile discomfort: Acute Serum creatinine today 2.20; yesterday 2.61; baseline 1-1.2 Urinalysis LE +1, WBC 21-50, +3 blood CTAP: -No urinary calculi or hydronephrosis. Bladder wall thickening, similar to prior PET/CT. Rushing in place. -Moderate amount of stool within the colon. No evidence for a bowel obstruction. -Gallbladder wall thickening, similar to prior CT. Resolution of gallbladder distention. -Gastric fold thickening. This may be due to underdistention however gastritis could appear similar. Started on IV Zosyn and based on BC 11/19 growing staph; transitioned to Cefazolin and Levaquin today has signed off today; no intervention indicated could consider oxybutynin for possible bladder spasms. Will fluid challenge with NS to see if marked improvement with BRUNA; baseline is normal creatinine 1.1-1.2 Continue IVF today, re eval renal function in a.m. as it is improving consider renal ultrasound if no improvement on labs with fluids and changed abx trial oxybutnin as discussed per urology CHEST PAIN Elevated troponin occurred 04/27 evening associated with ECG changes seen and evaluated by cards on 04/28 and felt likely demand ischemia in setting of underlying illness no further cardiac procedure warranted initially started on IV heparin but will transition back to oral eliquis Hypomagnesemia: Acute Patient had 6 beat run of asymptomatic V. tach overnight 04/25-04/26 noted by tele monitor mag 1.8 today, will replete with 1 g mag sulfate BPH without urinary obstruction/LUTS: Chronic Indwelling Rushing changed in ER Reports penile meatus discomfort Hold tamsulosin for now Offered topical lidocaine around catheter insertion site; patient refuses Urology consult placed; will continue to follow as outpatient and offer supportive care and pain management as needed Per consultation no acute intervention by warranted Has plans for TURP per his discussion HFrEF: Left ventricular apical thrombus: Ischemic cardiomyopathy, severe coronary artery disease: 09/17/23: ECHO 09/17 EF 20-25%, severe hypokinesis & Left ventricular apical thrombus discovered in the setting of severe cardiomyopathy ECHO from 04/27 EF 50 to 55%, moderate concentric LVH, moderate size inferior and posterior wall motion abnormality with hypokinesis of the segments consistent with RCA occlusion Status post cardiac cath 09/22: Three-vessel coronary artery disease with marked ly elevated left end-diastolic pressure. Diffuse coronary atherosclerosis but degree of coronary disease disproportionate to degree of systolic dysfunction Takes plavix, eliquis combo for thrombus/severe CAD Cont Metoprolol, lisinopril and aldactone on hold in setting of BRUNA ASCVD: H/O CVA: Occurred in 2019 Continue atorvastatin PT/OT given history of stroke Recent Pulmonary Emboli c/b Pulmonary Infarct Continue Eliquis Disposition: pt is not medically ready for discharge, awaiting ID consult, continues with BRUNA but improving and Penile pain, expect a few days yet, transfer to [facility] given cardiac clearance PCP: Dr. Gaspar Code Status: Full Code VTE Prophylaxis: on Eliquis A total of 46 minutes was spent coordinating, documenting, and providing care for this patient excluding time spent in the performance of separately billed services. This included personally viewing all current laboratories and imaging studies, medication reconciliation, outpatient chart review, and discussion with specialists. Pt was seen and examined in collaboration with Dr. Sales, please see addendum Admission and Anticipated Discharge Date Admission Date: April 25, 2024 Subjective Patient was seen and examined in room 450-1. F/U aspiration PNA, BRUNA, Penile Pain and Sepsis. Pt complains of 8/10 penis pain. Is upset that he isn't getting pain relief and feels dilaudid is the only thing that helps him. APAP and NSAIDS do not work, topical lidocaine does not work. He denies f/c/s, chest pain, sob, n/v/d. Pt with episode of chest pain last evening that was associated with a stress event and ecg changes. He was initially started on IV heparin. HE states chest pain was relieved with nitro. Review of Systems Review of Systems: All systems reviewed & are unremarkable except as noted in HPI & below Physical Exam Physical Exam: Gen: Elderly M, unkempt, visibly frustrated, NAD, A&O x3 HEENT: Normocephalic, atraumatic, conjunctivae moist, sclerae anicteric, mucous membranes moist. Lung: Clear to Auscultation bilaterally, no wheezes/rales/rhonchi Heart: Regular rate, regular rhythm, no murmurs, rubs, or gallops Abdomen: Soft, NT, ND +BS x 4 Extremities: No edema Skin: Warm, no rash, negative turgor. : cath draining approp, yellow urine Results & Data Results & Data Vital Signs (Past 12 Hours) Vital Signs Temp Pulse Pulse Resp BP Pulse Ox O2 Del Method 04/28/24 11:55 37.0 C 78 16 134/76 96 Room Air 04/28/24 08:35 36.7 C 70 18 134/73 98 Room Air 04/28/24 08:00 72 04/28/24 03:34 36.7 C 72 18 107/72 99 Room Air Laboratory Results Short CBC 04/27/24 04/28/24 Range/Units 22:54 05:40 WBC 11.76 H 14.11 H (4.8-10.8) K/ul Hgb 9.5 L 9.3 L (14.0-18.0) g/dl Hct 29.8 L 29.7 L (42.0-52.0) % Plt Count 338 341 (130-400) K/uL BMP 04/28/24 05:40 Sodium 138 Potassium 4.8 Chloride 109 H Carbon Dioxide 21 BUN 23 Creatinine 1.74 H D Glucose 159 H Calcium 9.5 Medications Administered Current Inpatient Medications Apixaban (Apixaban 5 Mg Tablet) 5 mg PO BID YADIRA Stop: 05/25/24 20:59 Last Admin: 04/27/24 22:45 Dose: Not Given Atorvastatin Calcium (Atorvastatin 20 Mg Tab) 20 mg PO QAM [facility] Stop: 05/26/24 08:59 Last Admin: 04/28/24 08:01 Dose: 20 mg Clopidogrel Bisulfate (Clopidogrel Bisulfate 75 Mg Tab) 75 mg PO QAM [facility] Stop: 05/26/24 08:59 Last Admin: 04/28/24 08:01 Dose: 75 mg Hydromorphone HCl (Hydromorphone Inj 0.5 Mg/0.5 Ml Syr) 0.5 mg IV Q4H PRN PRN Reason: Pain Stop: 05/09/24 19:26 Last Admin: 04/28/24 08:40 Dose: 0.5 mg Cefazolin Sodium (Ancef 2000mg) 2,000 mg in 15 mls @ 3.75 mls/min IV Q8H [facility] Stop: 05/09/24 13:59 Last Admin: 04/28/24 06:42 Dose: 3.75 mls/min Sodium Chloride (Nss) 1,000 mls @ 50 mls/hr IV .Q20H ONE Stop: 04/28/24 18:18 Last Admin: 04/27/24 22:54 Dose: 50 mls/hr Levofloxacin (Levofloxacin 750 Mg Tab) 750 mg PO Q48H [facility] Stop: 04/30/24 12:59 Last Admin: 04/27/24 13:56 Dose: 750 mg Lorazepam (Lorazepam 0.5 Mg Tab) 0.5 mg PO BID PRN PRN Reason: Anxiety Stop: 05/25/24 19:04 Metoprolol Succinate (Metoprolol Succ 25mg Ext Rel Tab) 25 mg PO BID [facility] Stop: 05/25/24 20:59 Last Admin: 04/28/24 08:01 Dose: 25 mg Mirtazapine (Mirtazapine Tab 15 Mg Tab) 30 mg PO HS [facility] Stop: 05/25/24 20:59 Last Admin: 04/27/24 22:44 Dose: 30 mg Ondansetron HCl (Ondansetron 4 Mg Od Tab) 4 mg PO Q8H PRN PRN Reason: Nausea And Vomiting Stop: 05/25/24 19:14 Oxybutynin Chloride (Oxybutynin Chloride 5 Mg Tab) 5 mg PO BID [facility] Stop: 05/28/24 12:14 Oxycodone HCl (Oxycodone Hcl Ir 5 Mg Tab (Immediate Release)) 5 mg PO Q8H PRN PRN Reason: Severe Pain (Scale Score 7-10) Stop: 05/09/24 19:04 Last Admin: 04/28/24 09:13 Dose: 5 mg Pantoprazole Sodium (Pantoprazole 40 Mg Tab) 40 mg PO QAM [facility] Stop: 05/26/24 08:59 Last Admin: 04/28/24 08:01 Dose: 40 mg Ropinirole HCl (Ropinirole Hcl 0.25 Mg Tablet) 0.25 mg PO HS [facility] Stop: 05/25/24 20:59 Last Admin: 04/27/24 22:44 Dose: 0.25 mg Sertraline HCl (Sertraline Hcl 50 Mg Tablet) 25 mg PO QAM [facility] Stop: 05/26/24 08:59 Last Admin: 04/28/24 08:02 Dose: 25 mg (1) Aspiration pneumonia Aspiration pneumonia type: unspecified Laterality: unspecified laterality Lung location: unspecified part of lung Qualified Code(s): J69.0 - Pneumonitis due to inhalation of food and vomit
[2024-04-28] MEDS: MAGNESIUM SULFATE / D5W 1 GM/100 ML BAG IV ONE (12:46)
[2024-04-28] MEDS: oxyBUTYnin chloride 5 MG TAB PO SCH (12:58)
[2024-04-28] MEDS: SODIUM CHLORIDE 0.9% 1,000 ML IV SCH (13:50)
[2024-04-28 15:19] LABS: ANTI-Xa, UFH(UnfractionatedHep 0.32 IU/ml (0.3-0.7)
--- NOTE | 2024-04-28 17:37 | Electrocardiogram Report ---
Test Reason : Blood Pressure : / mmHG Vent. Rate : 110 BPM Atrial Rate : 110 BPM P-R Int : 166 ms QRS Dur : 100 ms QT Int : 324 ms P-R-T Axes : 072 -04 115 degrees QTc Int : 438 ms Sinus tachycardia possible Inferior infarct (cited on or before 04-MAY-2021) T wave abnormality, consider lateral ischemia Consider right ventricular involvement in acute inferior infarct Abnormal ECG When compared with ECG of 25-APR-2024 12:18, Premature supraventricular complexes are no longer Present ST now depressed in Anterior leads Confirmed by Vaibhav Espinoza ([id number]) on 04/28/2024 5:36:59 PM Referred By: REFERRED SELF Confirmed By:Luis Espinoza
--- NOTE | 2024-04-28 17:41 | Electrocardiogram Report ---
Test Reason : Blood Pressure : / mmHG Vent. Rate : 068 BPM Atrial Rate : 068 BPM P-R Int : 152 ms QRS Dur : 094 ms QT Int : 404 ms P-R-T Axes : 031 001 120 degrees QTc Int : 429 ms Normal sinus rhythm possible Inferior infarct (cited on or before 04-MAY-2021) T wave abnormality, consider lateral ischemia Abnormal ECG When compared with ECG of 27-APR-2024 22:07, (unconfirmed) Vent. rate has decreased BY [address] no longer elevated in Inferior leads Confirmed by Vaibhav Espinoza ([id number]) on 04/28/2024 5:41:12 PM Referred By: REFERRED SELF Confirmed By:Luis Espinoza
--- NOTE | 2024-04-28 18:02 | Infectious Disease Consult ---
Date of Service April 28, 2024 Telehealth Information I performed this visit using a real-time telehealth connection between my location and the patients location ([facility] [address]). After connecting through interactive tele-video, patient was identified by name and date of and/or wristband check.Patient (or authorized healthcare admissions representative) was informed that this was a telemedicine visit and it was being conducted confidentially over secure lines. My office door was closed and no one else was present in the room with me.Patient (or authorized healthcare admissions representative) provided consent to proceed with the visit, expressed an understanding of privacy and security of the telemedicine visit, and gave permission to have a hospital admissions representative in the room in order to assist with the visit and to conduct portions of the visit, as needed. I informed the patient (or authorized healthcare admissions representative) that I reviewed their record and presented the opportunity for them to ask any questions regarding the visit today. The patient agreed to participate. Assessment & Plan (1) Staphylococcus aureus bacteremia: Plan: Agree with Ancef (discuss the dosing with your pharmacist - I cannot see the CrCl). Repeat BCX q48h until clear. If bacteremia persists will need a POLA. Monitor for signs/symptoms of septic arthritis/spine infection and page ID if these are suspected. Has the catheter been exchanged? I will plan for a minimum of 2 weeks of Ancef from negative blood cultures - but likely 4 weeks. History of Present Illness History of Present Illness The patient was admitted for bleeding at the site of an indwelling Rushing catheter. Workup revealed MSSA bacteremia/bacteruria. The patient denies any FBs or s/s to suggest a metastatic infection. Allergies Allergy/AdvReac Type Severity Reaction Status Date / Time No Known Allergies Allergy Verified 04/25/24 16:14 Home Medications Medication Instructions Recorded Confirmed Type clopidogrel 75 mg tablet (Plavix) 75 mg PO QAM 06/05/21 04/25/24 History atorvastatin 20 mg tablet 20 mg PO QAM 09/08/23 04/25/24 History lisinopril 10 mg tablet 10 mg PO BID #30 tabs 09/23/23 04/25/24 Rx spironolactone 25 mg tablet 25 mg PO QAM #30 tabs 09/23/23 04/25/24 Rx apixaban 5 mg tablet (Eliquis) 5 mg PO Q12H 10/08/23 04/25/24 History tamsulosin 0.4 mg capsule 0.4 mg PO HS #30 caps 10/09/23 04/25/24 Rx metoprolol succinate 50 mg 25 mg (1/2 x 50 mg) PO BID #30 tabs 10/12/23 04/25/24 Rx tablet,extended release 24 hr ropinirole 0.25 mg tablet 0.25 mg PO HS #30 tabs 10/12/23 04/25/24 Rx flash glucose sensor (FreeStyle #1 ea 01/01/24 04/25/24 History Yulissa 2 Sensor kit) lorazepam 0.5 mg tablet 0.5 mg PO BID PRN Anxiety 01/01/24 04/25/24 History metformin 500 mg tablet,extended 1,000 mg PO QAM 01/01/24 04/25/24 History release 24 hr sertraline 25 mg tablet 25 mg PO QAM 01/01/24 04/25/24 History mirtazapine 30 mg tablet 30 mg PO HS 01/11/24 04/25/24 History empagliflozin 10 mg tablet 10 mg PO QAM 01/19/24 04/25/24 History (Jardiance) ondansetron HCl 4 mg tablet 4 mg PO Q8 PRN Nausea 04/25/24 04/25/24 History oxycodone 5 mg tablet 5 mg PO Q8 PRN Severe Pain (Scale 04/25/24 04/25/24 History Score 7-10) pantoprazole 40 mg tablet,delayed 40 mg PO QAM 04/25/24 04/25/24 History release Patient History Medical History Rushing catheter in place Enlarged prostate Hx pulmonary embolism 09/08/23- bilateral PEs History of suicidal ideation (~2020) voluntary admission [facility] Hx of congestive heart failure (~10/2023) [facility] Hx of pancreatitis History of cerebrovascular accident (~2019) x5 "multiple mini strokes" [facility], no current neurologist, left arm "almost useless" and left side "doesn't work quite right" Most recent CVA 2020 per records Surgical History Hx of cardiac catheterization (~09/2023) [facility], no stents S/P drug eluting coronary stent placement (~2013) [facility], currently follows at [facility] Family History Mother , age 68 from metastatic lung cancer Lung cancer Father No problems noted. 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
[2024-04-29 06:17] LABS: Hematocrit (blood only) 28.9 % (42.0-52.0); Hemoglobin 8.8 g/dl (14.0-18.0); Mean Corpuscular Hemoglobin 22.4 pg (25.0-34.0); Mean Corpuscular Hgb Conc 30.4 g/dL (32.0-36.0); Mean Corpuscular Volume 73.7 fL (80.0-100.0); Mean Platelet Volume 9.8 fL (9.4-12.4); Nucleated RBC # (auto) 0.02 K/uL (0.00-0.12); Nucleated RBC % (auto) 0.2 %; Platelet Count 359 K/uL (130-400); RDW Coefficient of Variation 17.4 % (11.5-14.5); RDW Standard Deviation 46.3 fL (36.4-46.3); Red Blood Count 3.92 M/uL (4.70-6.10); White Blood Count 11.13 K/ul (4.8-10.8)
[2024-04-29 06:41] LABS: BUN Creatinine Ratio 10.4 (10-20); Calcium 9.4 mg/dl (8.6-10.3); Creatinine Clr Calc Pharmacy 39.9 ml/min; Est GFR (African American) 44.8 ml/min; Est GFR (Non-African American) 38.6 ml/min; Magnesium 1.9 mg/dl (1.7-2.4); Potassium 4.8 mmol/L (3.5-5.1)
--- NOTE | 2024-04-29 15:43 | Hospitalist Progress Note ---
Date of Service April 29, 2024 Assessment & Plan (1) Aspiration pneumonia: (2) Acute kidney injury superimposed on CKD: (3) Penile pain: (4) Hypomagnesemia: (5) BPH (benign prostatic hyperplasia): (6) BPH w/o urinary obs/LUTS: (7) Chronic HFrEF (heart failure with reduced ejection fraction): (8) Left ventricular apical thrombus: (9) ASCVD (arteriosclerotic cardiovascular disease): (10) Recurrent pulmonary embolism: Plan Bacteremia: Aspiration pneumonia Sepsis, multifactorial, POA Acute CT abdomen pelvis indicated multifocal left lower lobe consolidation suggestive of pneumonia/aspiration pneumonitis blood cultures Gram Staph aureus Echo: EF 50-55%, moderate LVH, moderate sized inferior and posterior wall motion abnormality with hypokinesis of segments Persistent 1.2 cm opacity within RLL; repeat CT recommended in 3 months as outpatient Mild leukocytosis 10.43; improved from 16 Started on IV Zosyn and based on BC 11/19 growing staph aureus on 04/25; transitioned to Cefazolin and Levaquin today BC negative on 04/26 thus far MRSA nares negative Incentive spirometry, flutter valve sputum culture ordered Infectious disease consulted - recommends IV Cefazolin for 4 weeks through 05/25/24. US guided line placed. CM working on outpatient therapy. BRUNA superimposed on CKD: Penile discomfort: Acute Serum creatinine today 2.20; yesterday 2.61; baseline 1-1.2 Urinalysis LE +1, WBC 21-50, +3 blood CTAP: -No urinary calculi or hydronephrosis. Bladder wall thickening, similar to prior PET/CT. Rushing in place. -Moderate amount of stool within the colon. No evidence for a bowel obstruction. -Gallbladder wall thickening, similar to prior CT. Resolution of gallbladder distention. -Gastric fold thickening. This may be due to underdistention however gastritis could appear similar. Started on IV Zosyn and based on BC 11/19 growing staph; transitioned to Cefazolin and Levaquin today has signed off today; no intervention indicated could consider oxybutynin for possible bladder spasms. Cr @ 1.93, good UOP, will need f/u BMP as out patient trial oxybutnin as discussed per urology CHEST PAIN Elevated troponin occurred 04/27 evening associated with ECG changes seen and evaluated by cards on 04/28 and felt likely demand ischemia in setting of underlying illness no further cardiac procedure warranted initially started on IV heparin but will transition back to oral eliquis echo as above Hypomagnesemia: Acute Patient had 6 beat run of asymptomatic V. tach overnight 04/25-04/26 noted by tele monitor mag 1.9 BPH without urinary obstruction/LUTS: Chronic Indwelling Rushing changed in ER Reports penile meatus discomfort Hold tamsulosin for now Offered topical lidocaine around catheter insertion site; patient refuses Urology consult placed; will continue to follow as outpatient and offer supportive care and pain management as needed Per consultation no acute intervention by warranted He will f/u with [facility] urology HFrEF: Left ventricular apical thrombus: Ischemic cardiomyopathy, severe coronary artery disease: 09/17/23: ECHO 09/17 EF 20-25%, severe hypokinesis & Left ventricular apical thrombus discovered in the setting of severe cardiomyopathy ECHO from 04/27 EF 50 to 55%, moderate concentric LVH, moderate size inferior and posterior wall motion abnormality with hypokinesis of the segments consistent with RCA occlusion Status post cardiac cath 09/22: Three-vessel coronary artery disease with markedly elevated left end-diastolic pressure. Diffuse coronary atherosclerosis but degree of coronary disease disproportionate to degree of systolic dysfunction Takes plavix, eliquis combo for thrombus/severe CAD Cont Metoprolol, lisinopril and aldactone on hold in setting of BRUNA ASCVD: H/O CVA: Occurred in 2019 Continue atorvastatin PT/OT given history of stroke Recent Pulmonary Emboli c/b Pulmonary Infarct Continue Eliquis Disposition: pt medically ready for discharge on IV cefazolin through 05/25, CM arranging outpt therapies PCP: Dr. Gaspar Code Status: Full Code VTE Prophylaxis: on Eliquis A total of 55 minutes was spent coordinating, documenting, and providing care for this patient excluding time spent in the performance of separately billed services. This included personally viewing all current laboratories and imaging studies, medication reconciliation, outpatient chart review, and discussion with specialists. Pt was seen and examined in collaboration with Dr. Sales, please see addendum Admission and Anticipated Discharge Date Admission Date: April 25, 2024 Subjective Patient was seen and examined in room 450-1. F/U aspiration PNA, BRUNA, Penile Pain and Sepsis. Review of Systems Review of Systems: All systems reviewed & are unremarkable except as noted in HPI & below Physical Exam Physical Exam: Gen: Elderly M, unkempt, visibly frustrated, NAD, A&O x3 HEENT: Normocephalic, atraumatic, conjunctivae moist, sclerae anicteric, mucous membranes moist. Lung: Clear to Auscultation bilaterally, no wheezes/rales/rhonchi Heart: Regular rate, regular rhythm, no murmurs, rubs, or gallops Abdomen: Soft, NT, ND +BS x 4 Extremities: No edema Skin: Warm, no rash, negative turgor. : cath draining approp, yellow urine Results & Data Results & Data Vital Signs (Past 12 Hours) Vital Signs Temp Pulse Pulse Pulse Resp BP BP 04/29/24 14:45 36.9 C 71 99 H 19 114/79 142/63 H 04/29/24 11:24 36.9 C 99 H 19 142/63 H 04/29/24 08:00 51 L 04/29/24 08:00 04/29/24 07:12 36.7 C 56 L 19 131/65 04/29/24 04:31 36.8 C 61 16 147/62 H Pulse Ox O2 Del Method 04/29/24 14:45 98 04/29/24 11:24 98 Room Air 04/29/24 08:00 04/29/24 08:00 Room Air 04/29/24 07:12 97 Room Air 04/29/24 04:31 99 Room Air Medications Administered Current Inpatient Medications Apixaban (Apixaban 5 Mg Tablet) 5 mg PO BID [facility] Stop: 05/25/24 20:59 Last Admin: 04/29/24 09:38 Dose: 5 mg Atorvastatin Calcium ([facility]atin 20 Mg Tab) [facility] [place] [facility] Stop: 05/26/24 08:59 Last Admin: 04/29/24 09:37 Dose: 20 mg Clopidogrel Bisulfate (Clopidogrel Bisulfate 75 Mg Tab) 75 mg PO [facility] Stop: 05/26/24 08:59 Last Admin: 04/29/24 09:37 Dose: 75 mg Hydromorphone HCl (Hydromorphone Inj 0.5 Mg/0.5 Ml Syr) 0.5 mg IV Q4H PRN PRN Reason: Pain Stop: 05/09/24 19:26 Last Admin: 04/29/24 13:23 Dose: 0.5 mg Cefazolin Sodium (Ancef 2000mg) 2,000 mg in 15 mls @ 3.75 mls/min IV Q8H [facility] Stop: 05/09/24 13:59 Last Admin: 04/29/24 13:13 Dose: 3.75 mls/min Levofloxacin (Levofloxacin 750 Mg Tab) 750 mg PO Q48H [facility] Stop: 04/30/24 12:59 Last Admin: 04/29/24 13:10 Dose: 750 mg Lorazepam (Lorazepam 0.5 Mg Tab) 0.5 mg PO BID PRN PRN Reason: Anxiety Stop: 05/25/24 19:04 Metoprolol Succinate (Metoprolol Succ 25mg Ext Rel Tab) 25 mg PO BID [facility] Stop: 05/25/24 20:59 Last Admin: 04/29/24 09:37 Dose: 25 mg Mirtazapine (Mirtazapine Tab 15 Mg Tab) 30 mg PO [facility] Stop: 05/25/24 20:59 Last Admin: 04/28/24 20:27 Dose: 30 mg Ondansetron HCl (Ondansetron 4 Mg Od Tab) 4 mg PO Q8H PRN PRN Reason: Nausea And Vomiting Stop: 05/25/24 19:14 Oxybutynin Chloride (Oxybutynin Chloride 5 Mg Tab) 5 mg PO BID [facility] Stop: 05/28/24 12:14 Last Admin: 04/29/24 09:37 Dose: 5 mg Oxycodone HCl (Oxycodone Hcl Ir 5 Mg Tab (Immediate Release)) 5 mg PO Q8H PRN PRN Reason: Severe Pain (Scale Score 7-10) Stop: 05/09/24 19:04 Last Admin: 04/29/24 04:38 Dose: 5 mg Pantoprazole Sodium (Pantoprazole 40 Mg Tab) 40 mg PO QAM [facility] Stop: 05/26/24 08:59 Last Admin: 04/29/24 09:37 Dose: 40 mg Ropinirole HCl (Ropinirole Hcl 0.25 Mg Tablet) 0.25 mg PO [facility] Stop: 05/25/24 20:59 Last Admin: 04/28/24 20:28 Dose: 0.25 mg Sertraline HCl (Sertraline Hcl 50 Mg Tablet) [facility] [place] Stop: 05/26/24 08:59 Last Admin: 04/29/24 09:37 Dose: 25 mg (1) Aspiration pneumonia Aspiration pneumonia type: unspecified Laterality: unspecified laterality Lung location: unspecified part of lung Qualified Code(s): J69.0 - Pneumonitis due to inhalation of food and vomit
--- NOTE | 2024-04-29 16:21 | Discharge Summary ---
Discharge Summary Date of Service April 29, 2024 Principal Dx & Hospital Course #1 = Principal Diagnosis (1) Aspiration pneumonia: (2) Acute kidney injury superimposed on CKD: (3) Penile pain: (4) Hypomagnesemia: (5) BPH (benign prostatic hyperplasia): (6) BPH w/o urinary obs/LUTS: (7) Chronic HFrEF (heart failure with reduced ejection fraction): (8) Left ventricular apical thrombus: (9) ASCVD (arteriosclerotic cardiovascular disease): (10) Recurrent pulmonary embolism: Plan Bacteremia: Aspiration pneumonia Sepsis, multifactorial, POA Acute CT abdomen pelvis indicated multifocal left lower lobe consolidation suggestive of pneumonia/aspiration pneumonitis blood cultures Gram Staph aureus Echo: EF 50-55%, moderate LVH, moderate sized inferior and posterior wall motion abnormality with hypokinesis of segments Persistent 1.2 cm opacity within RLL; repeat CT recommended in 3 months as outpatient Mild leukocytosis 10.43; improved from 16 Started on IV Zosyn and based on BC 1 growing staph aureus on 04/25; transitioned to Cefazolin and Levaquin today BC negative on 04/26 thus far MRSA nares negative Incentive spirometry, flutter valve sputum culture ordered Infectious disease consulted - recommends IV Cefazolin for 4 weeks through 05/25/24. US guided line placed. BRUNA superimposed on CKD: Penile discomfort: Acute Serum creatinine today 2.20; yesterday 2.61; baseline 1-1.2 Urinalysis LE +1, WBC 21-50, +3 blood CTAP: -No urinary calculi or hydronephrosis. Bladder wall thickening, similar to prior PET/CT. Rushing in place. -Moderate amount of stool within the colon. No evidence for a bowel obstruction. -Gallbladder wall thickening, similar to prior CT. Resolution of gallbladder distention. -Gastric fold thickening. This may be due to underdistention however gastritis could appear similar. Started on IV Zosyn and based on BC 11/19 growing staph; transitioned to Cefazolin and Levaquin today has signed off today; no intervention indicated could consider oxybutynin for possible bladder spasms. Cr @ 1.93, good UOP, will need f/u BMP as out patient trial oxybutnin as discussed per urology He will f/u with [facility] at discharge Pulmonary Nodule Persistent 1.2 cm nodular opacity within the right lower lobe. This remains indeterminate and a follow-up chest CT in 3 months to ensure resolution is recommended. Please refer to full report in the Ordered Studies section above Further work up, management, and ff up as outpatient CHEST PAIN Elevated troponin occurred 04/27 evening associated with ECG changes seen and evaluated by cards on 04/28 and felt likely demand ischemia in setting of underlying illness no further cardiac procedure warranted initially started on IV heparin but will transition back to oral eliquis echo as above Hypomagnesemia: Acute Patient had 6 beat run of asymptomatic V. tach overnight 04/25-04/26 noted by tele monitor mag 1.9 BPH without urinary obstruction/LUTS: Chronic Indwelling Rushing changed in ER Reports penile meatus discomfort Hold tamsulosin for now Offered topical lidocaine around catheter insertion site; patient refuses Urology consult placed; will continue to follow as outpatient and offer supportive care and pain management as needed Per consultation no acute intervention by warranted He will f/[place] [facility] HFrEF: Left ventricular apical thrombus: Ischemic cardiomyopathy, severe coronary artery disease: 09/17/23: ECHO 09/17 EF 20-25%, severe hypokinesis & Left ventricular apical thrombus discovered in the setting of severe cardiomyopathy ECHO from 04/27 EF 50 to 55%, moderate concentric LVH, moderate size inferior and posterior wall motion abnormality with hypokinesis of the segments consistent with RCA occlusion Status post cardiac cath 09/22: Three-vessel coronary artery disease with markedly elevated left end-diastolic pressure. Diffuse coronary atherosclerosis but degree of coronary disease disproportionate to degree of systolic dysfunction Takes plavix, eliquis combo for thrombus/severe CAD Cont Metoprolol, lisinopril and aldactone on hold in setting of BRUNA ASCVD: H/O CVA: Occurred in 2019 Continue atorvastatin PT/OT given history of stroke Recent Pulmonary Emboli c/b Pulmonary Infarct Continue Eliquis Disposition: pt medically ready for discharge on IV cefazolin through 05/25, CM arranging outpt therapies and will be discharged today A total of 55 minutes was spent coordinating, documenting, and providing care for this patient excluding time spent in the performance of separately billed services. This included personally viewing all current laboratories and imaging studies, medication reconciliation, outpatient chart review, and discussion with specialists. Pt was seen and examined in collaboration with Dr. Sales, please see addendum Notes For Next Care Provider Please obtain CBC and CMP at hospital follow up. Creatinine at discharge was 1.9. Hemoglobin at discharge is 8.8. He is to follow up with [facility] with in 10 days of discharge for voiding trial. They are to arrange this. He will complete 4 weeks of IV Cefazolin for staph bacteremia. US guided IV will need to be removed at completion of IV antibiotics. Chest CT follow up in 3 months to re-evaluate lung nodule Medication Changes From Visit New Medications: Cefazolin, IV 2g every 8 hours through 05/25/24. Levaquin 750mg one tablet by mouth daily. Last dose is due on 04/30/24; therefore you are being prescribed 1 tablet. Florastor 250mg one tablet by mouth daily for GI protection while on probiotic. STOP Medications: Please discontinue Lisinopril and Metformin due to your kidney function. Please discuss with your primary care provider if these medications can be restarted. Stop Tamsulosin. Admission HPI Per Admitting Provider This is a 53 y/o male with chronic systolic heart failure, CAD s/p NE w/ stenting in 2013, HTN, hyperlipidemia, ischemic cardiomyopathy, DM2, GERD, CKD3, prior PE, prior CVA w/ mild cognitive disability, and hx alcohol abuse who presented to the ED today with increased urethral pain that he relates to his Rushing catheter. He notes that his home nurse changed his catheter last - since then, his chronic pain in the urethra has increased. Yesterday, noticed blood discharge from the penis. Rushing was removed this morning before he came to the ED but has since been replaced. Currently, the pain is somewhat better than it was before the Rushing was pulled at home. Nausea but no vomiting, no hematemesis. Bowel movements are variable but at baseline. Overall, appetite is okay. Denies fevers, chills, chest pain, leg swelling. 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 HEENT: NC, AT. MMM. EOMI, clear conjunctiva, oropharynx clear. NECK: Supple without lymphadenopathy. No stiffness or restricted ROM. HEART: Normal rate and regular rhythm, normal S1/S1, no m/r/g LUNGS: CTAB, moving air well. No crackles or wheezes are heard. ABDOMEN: Soft, nontender, nondistended with good bowel sounds heard. BACK: No CVAT, no obvious deformity. EXTREMITIES: Without cyanosis, clubbing or edema. NEUROLOGICAL: Grossly nonfocal. Alert and oriented, moving all 4 extremities. Skin: Warm and dry without any rash. Discharge Exam en: Elderly M, unkempt, NAD, A&O x3 HEENT: Normocephalic, atraumatic, conjunctivae moist, sclerae anicteric, mucous membranes moist. Lung: Clear to Auscultation bilaterally, no wheezes/rales/rhonchi Heart: Regular rate, regular rhythm, no murmurs, rubs, or gallops Abdomen: Soft, NT, ND +BS x 4 Extremities: No edema Skin: Warm, no rash, negative turgor. : cath draining approp, yellow urine Updated Medication List Medication Instructions Recorded Confirmed Type clopidogrel 75 mg tablet (Plavix) 75 mg PO QAM 06/05/21 04/25/24 History atorvastatin 20 mg tablet 20 mg PO QAM 09/08/23 04/25/24 History spironolactone 25 mg tablet 25 mg PO QAM #30 tabs 09/23/23 04/25/24 Rx apixaban 5 mg tablet (Eliquis) 5 mg PO Q12H 10/08/23 04/25/24 History metoprolol succinate 50 mg 25 mg (1/2 x 50 mg) PO BID #30 tabs 10/12/23 04/25/24 Rx tablet,extended release 24 hr ropinirole 0.25 mg tablet 0.25 mg PO HS #30 tabs 10/12/23 04/25/24 Rx flash glucose sensor (FreeStyle #1 ea 01/01/24 04/25/24 History Yulissa 2 Sensor kit) lorazepam 0.5 mg tablet 0.5 mg PO BID PRN Anxiety 01/01/24 04/25/24 History sertraline 25 mg tablet 25 mg PO QAM 01/01/24 04/25/24 History mirtazapine 30 mg tablet 30 mg PO HS 01/11/24 04/25/24 History empagliflozin 10 mg tablet 10 mg PO QAM 01/19/24 04/25/24 History (Jardiance) ondansetron HCl 4 mg tablet 4 mg PO Q8 PRN Nausea 04/25/24 04/25/24 History oxycodone 5 mg tablet 5 mg PO Q8 PRN Severe Pain (Scale 04/25/24 04/25/24 History Score 7-10) pantoprazole 40 mg tablet,delayed 40 mg PO QAM 04/25/24 04/25/24 History release Saccharomyces boulardii 250 mg 250 mg PO DAILY 6 weeks #42 caps 04/29/24 Rx capsule (Florastor) levofloxacin 750 mg tablet 750 mg PO Q48H #1 tab 04/29/24 Rx oxybutynin chloride 5 mg tablet 5 mg PO BID 30 days #60 tabs 04/29/24 Rx Hospital Stay Data Consultations 04/25/24 15:46 ED Decision to Admit Stat 04/25/24 16:39 Consult Urology Routine 04/27/24 08:50 Consult Infectious Diseases Routine 04/27/24 10:09 Consult Infectious Diseases Routine 04/27/24 22:57 Consult Cardiology Routine Diagnostic Imagining Performed Abdomen/Pelvis CT 04/26/24 01:01 CT OF THE ABDOMEN AND PELVIS WITHOUT CONTRAST CLINICAL HISTORY: Sepsis, Hematuria, Possible ABLA. COMPARISON STUDY: CT of the abdomen and pelvis March 13, 2024. TECHNIQUE: Axial images of the abdomen and pelvis were obtained without IV contr ast. Images were reviewed in the axial, sagittal, and coronal planes. Automated exposure control was utilized for the study. A dose lowering technique was utilized adhering to the principles of ALARA. FINDINGS: There is a trace pericardial effusion. Moderate alveolar opacities within the left lower lobe and lingula are present, including foci of consolidation and groundglass opacities. A 1.2 cm right lower lobe nodular density on image 12 of [address] of March 13, 2024. There are mild groundglass opacities within the right lower lobe. No pneumatosis, free air or portal venous gas is present. No renal, ureteral or bladder calculi are present. Bladder wall thickening is unchanged. A Rushing balloon and gas within the bladder are present. Sensitivity for detection of urothelial lesions is diminished on this unenhanced exam but none are identified. Calcifications within the renal sinuses are vascular in etiology. Gallbladder wall thickening is again noted. This was shown on prior exam. Gallbladder distention has resolved. Evaluation of the abdomen and pelvis is suboptimal on this unenhanced exam. Borderline splenomegaly. Adrenal glands and pancreas are unremarkable. Gastric fold thickening may be due to underdistention. There is no abdominal or pelvic lymphadenopathy. There is a moderate amount stool within the colon and rectum. No evidence for a bowel obstruction. No bowel wall thickening is identified on unenhanced exam. There is no fluid collection within the abdomen or pelvis. No acute fractures are identified. IMPRESSION: 1. Multifocal left lower lobe and lingular consolidation and groundglass opacities suggestive of pneumonia or aspiration pneumonitis. 2. Persistent 1.2 cm nodular opacity within the right lower lobe. This remains indeterminate and a follow-up chest CT in 3 months to ensure resolution is recommended. 3. No urinary calculi or hydronephrosis. Bladder wall thickening, similar to prior PET/CT. Rushing in place. 4. Moderate amount of stool within the colon. No evidence for a bowel obstruction. 5. Gallbladder wall thickening, similar to prior CT. Resolution of gallbladder distention. 6. Gastric fold thickening. This may be due to underdistention however gastritis could appear similar. ACT 112: Negative or not required by law. Electronically signed by: Jw Andujar M.D. 04/26/2024 7:25 AM Pending Results Patient Have Any Pending Studies at Discharge: No Discharge Instructions Given to Patient (Per Discharging Provider) MEDICATION CHANGES: New Medications: Cefazolin, IV 2g every 8 hours through 05/25/24. Levaquin 750mg one tablet by mouth daily. Last dose is due on 04/30/24; therefore you are being prescribed 1 tablet. Florastor 250mg one tablet by mouth daily for GI protection while on probiotic. STOP Medications: Please discontinue Lisinopril and Metformin due to your kidney function. Please discuss with your primary care provider if these medications can be restarted. Stop Tamsulosin. SUMMARY OF TEST RESULTS: You were admitted to the hospital secondary to sepsis, aspiration pneumonia, urinary tract infection and bacteria in the blood. You were seen and evaluated by an infectious disease physician who is recommending IV antibiotics through May 25, 2024. Your hospital stay was complicated with urinary retention requiring Rushing catheter placement. You did have some discomfort in your urethra because of this. This was treated with pain medication. Your kidney function was elevated from baseline. It was felt this was due to retention of urine. You also had an episode of chest pain while in the hospital and this was evaluated by your heart doctor. It was felt that you did not sustain a heart attack and this was likely stress-induced. Your echocardiogram, ultrasound of your heart, showed a normal ejection fraction. PENDING TEST RESULTS: None RECOMMENDATIONS FOR FOLLOW-UP: Please follow-up with primary care provider as scheduled. It is recommended you have repeat blood work at your follow-up appointment with your primary care provider including a CBC and a CMP. You will need to follow-up with your urologist in regards to your catheter. A voiding trial will need to take place after discharge. [facility] will arrange appointment with you. Please complete antibiotics in their entirety. You have been prescribed continued home health services. You have an US guided IV in place. This will be removed upon completion of antibiotics. Please take care of this line, keep dry and follow instructions given to you at discharge. OTHER INSTRUCTIONS: Seek medical attention if you have: * temperature above 101 * chest pain or trouble breathing * abdominal pain, nausea, vomiting * diarrhea, dark stools or bloody stools * any unanswered questions or concerns Call 911 if symptoms are severe. Please take good care of yourself. It has been a pleasure taking care of you. Please take care of yourself. If you have any questions regarding your recent hospitalization please contact [facility] and request Maddison Lopez @ [phone]. Total Time Total Time Spent Total Time Spent (In Minutes): 45 minutes Supervising Physician Co-Signing Physician Notes delayed entry date of service noted above Attending Addendum: Case reviewed with the advanced practitioner. I have personally performed a history and physical examination on the patient. I have reviewed the advanced practitioner's documentation on the date of service referenced in note, and I agree with, and take responsibility for the plan of care. please refer to her notes for full details patient seen and examined, records reviewed by myself as well Jarocho Sales MD
== END 2024-04-29 16:46 | disposition home health service (06) | DRG 871 ==
LOC: ED 12:09 → SUATTDRO 15:45 → 2N 15:45 → 4W 04-27 23:44
DX: E83.42 Hypomagnesemia; J69.0 Pneumonitis due to inhalation of food and vomit; N39.0 Urinary tract infection, site not specified; N48.89 Other specified disorders of penis; N18.30 Chronic kidney disease, stage 3 unspecified; F17.210 Nicotine dependence, cigarettes, uncomplicated; B95.8 Unspecified staphylococcus as the cause of diseases classified elsewhere; N17.9 Acute kidney failure, unspecified; Z79.84 Long term (current) use of oral hypoglycemic drugs; R33.9 Retention of urine, unspecified; Z86.711 Personal history of pulmonary embolism; I25.5 Ischemic cardiomyopathy; I13.0 Hypertensive heart and chronic kidney disease with heart failure and stage 1 through stage 4 chronic kidney disease, or unspecified chronic kidney disease; E11.22 Type 2 diabetes mellitus with diabetic chronic kidney disease; Z95.5 Presence of coronary angioplasty implant and graft; R31.0 Gross hematuria; Z79.02 Long term (current) use of antithrombotics/antiplatelets; I25.10 Atherosclerotic heart disease of native coronary artery without angina pectoris; I25.2 Old myocardial infarction; I50.22 Chronic systolic (congestive) heart failure; N40.1 Benign prostatic hyperplasia with lower urinary tract symptoms; I24.89 Other forms of acute ischemic heart disease; A41.9 Sepsis, unspecified organism

== ENCOUNTER 2024-05-26 14:34 | Inpatient (IN) ==
--- NOTE | 2024-05-26 14:54 | Emergency Department Note ---
Impression & Plan BRUNA (acute kidney injury), Anemia, Acute dehydration, Leukocytosis ED Provider Note NAME: EDNA TAYLOR AGE: 53 SEX: M : 1970 ARRIVES VIA: Ambulance INFORMANT: [Patient] ED PROVIDER(S): [Samson Monterroso MD] CHIEF COMPLAINT: Abnormal laboratories HISTORY OF PRESENT ILLNESS: The patient is a 53-year-old male who left our hospital last month after a bout of urinary sepsis and bacteremia. He was discharged on IV cefazolin. The patient still has the PICC line in place in the right upper extremity. The patient had laboratory work done about a week ago, it did show a slight elevation to his potassium as well as some acute kidney injury. He was advised to report to the hospital last week--he did not report to the hospital though. Today, he agreed to come to the hospital at the advice of the home health nurse. The patient does not have any chest pain. He is not short of breath. No abdominal pain. He complains of some pain at the penile meatus but he states this is from his Rushing catheter. There has been no abdominal pain, no vomiting. He states that he is drinking plenty of fluids. PMHx/PSHx/Social Hx: See Below PHYSICAL EXAM: GENERAL: Patient is in no acute distress. HEENT: No acute trauma, normocephalic atraumatic, mucous membranes moist, no nasal congestion. NECK: No stridor, no adenopathy, no meningismus, trachea is midline. LUNGS: Clear to auscultation bilaterally, no wheeze, no rhonchi, breath sounds equal. HEART: Without murmurs gallops or rubs, regular rate and rhythm. ABDOMEN: Soft, nontender, no peritonitis. Rushing catheter in place. EXTREMITIES: No cyanosis, full range of motion of all the joints without pain or difficulty. Bandages with a PICC line noticed in the right upper extremity NEUROLOGIC: Oriented x 3, no acute motor or sensory deficits, no focal weakness. SKIN: No jaundice, no diaphoresis. Somewhat pale. DIFFERENTIAL DIAGNOSIS: Acute kidney injury, dehydration, electrolyte imbalance, anemia, among others. EMERGENCY DEPARTMENT PROCEDURES: MEDICAL DECISION MAKING: There is a mild leukocytosis. The white count appears to be climbing some compared to his testing from his recent hospital stay. The patient was anemic however, this appears baseline looking back at previous testing. There was a normal platelet count. No coagulopathy. There was evidence for some acute kidney injury on top of some chronic renal failure. Creatinine was 2.87. No concerning liver enzyme elevation. The patient appeared to be in a euthyroid state. ECG shows a sinus rhythm, no obvious acute ischemia. Cardiac enzyme testing x 1 is not consistent with acute cardiac injury. Urinalysis result is pending. Chest x-ray does not show pneumonia or CHF. On exam, patient was not toxic, he was not febrile. The patient was given IV Ancef, 2 g, this medication was given as it had been advised for him in the outpatient setting. Looking at the notes, he was to received this medication IV up until yesterday however, he states it was stopped 2 weeks ago. The patient was given a liter of saline for hydration. Given the rising white blood cell count, given the acute kidney injury and dehydration, given the question as to whether his antibiotics were inadvertently stopped 2 weeks earlier than suggested, I do think a hospital stay would be warranted. I did speak with the patient and case management, the on-call hospitalist was consulted. Prior/Outside records/notes reviewed: Discharge summary note from 04/29/2024 discussing his presentation, his sepsis, his care in the hospital and the plan outpatient. ECG per my interpretation: Indication was potential electrolyte disturbance. The ECG shows a normal sinus rhythm with a rate of 63. There is an old inferior infarct. There is poor R wave progression. There is no acute ST elevation, no PVCs. The QTc is 431. Continuous Cardiac Monitoring per my interpretation: An order was placed for continuous cardiac monitoring. The monitor shows a rate of 65 with normal sinus rhythm. Imaging/x-ray results per my interpretation: Chest x-ray does not show CHF or pneumonia. Chronic Medical/Social conditions affecting care: Recent sepsis. Currently requiring a Rushing catheter. Care/Management discussed with: Case management, the on-call hospitalist. Level of care consideration(s): After review of the information above and other included data: --I believe the patient requires escalation of care to admission DISPOSITION: Admission Past Med/Surg History Problem List (Updated 05/26/24 @ 17:07 by Samson Monterroso MD) Leukocytosis (Acute) Acute dehydration (Acute) Anemia (Acute) BRUNA (acute kidney injury) (Acute) Staphylococcus aureus bacteremia Hematuria Anemia Chronic ischemic heart disease Elevated troponin I level Chest pain Recurrent pulmonary embolism ASCVD (arteriosclerotic cardiovascular disease) Left ventricular apical thrombus Chronic HFrEF (heart failure with reduced ejection fraction) BPH w/o urinary obs/LUTS BPH (benign prostatic hyperplasia) Hypomagnesemia Penile pain Acute kidney injury superimposed on CKD Aspiration pneumonia Hypotension (Acute) UTI (urinary tract infection) (Acute) Sepsis (Acute) Ulcer, esophagus Acute blood loss anemia Acute cholecystitis Acute upper GI bleed Encounter for pre-operative examination BPH loc w urin obs/LUTS Pancreatic pseudocyst Gastric perforation Abnormal CT of the abdomen Tachycardia (Acute) Constipation (Acute) Acute urinary retention (Acute) BRUNA (acute kidney injury) (Acute) Lower abdominal pain (Acute) LV (left ventricular) mural thrombus Noted on 09/17/23 ECHO- currently on Eliquis Pulmonary infarct Pneumonia Acute urinary retention BRUNA (acute kidney injury) Prolonged QT interval Acute systolic CHF (congestive heart failure) Elevated LFTs Hypoxia Acute CHF Pulmonary embolism Elevated troponin (Acute) H/O: CVA (cerebrovascular accident) (Acute) Abnormal MRI of head MRI 06/15/20 showed MCA infarcts as well as ring enhancement right posterior lobe. Repeat MRI recommended in 3 months. Stenosis of right internal carotid artery with cerebral infarction Chronic ischemic right MCA stroke Ischemic cardiomyopathy EF=20-25% 09/2023 CKD (chronic kidney disease), stage III Hx of endarterectomy (06/28/20) Right Carotid Endarterectomy with Bovine Patch Angioplasty Dr. Arita 06/28/2020 Dyslipidemia Depression CAD (coronary artery disease) (~2013) 2013 - NSTEMI s/p BRUCE to RCA Cardiac cath 09/22/23 ([facility])- no stents or bypass (did show three vessel CAD) DM type 2 (diabetes mellitus, type 2) Hgb A1C 12.4 Only on Metformin as of 01/19/24 Hypertension (Chronic) Carotid stenosis, bilateral s/ right CEA (2019) Medical History Rushing catheter in place Enlarged prostate Hx pulmonary embolism 09/08/23- bilateral PEs History of suicidal ideation (~2020) voluntary admission [facility] Hx of congestive heart failure (~10/2023) [facility] Hx of pancreatitis History of cerebrovascular accident (~2019) x5 "multiple mini strokes" [facility], no current neurologist, left arm "almost useless" and left side "doesn't work quite right" Most recent CVA 2020 per records Surgical History Hx of cardiac catheterization (~09/2023) [facility], no stents S/P drug eluting coronary stent placement (~2013) [facility], currently follows at [facility] Family History Mother , age 68 from metastatic lung cancer Lung cancer Father No problems noted. 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 Feels Safe at Home: Yes Assistive Devices: None Allergies Allergies Allergy/AdvReac Type Severity Reaction Status Date / Time No Known Allergies Allergy Verified 04/25/24 16:14 Home Meds Home Medications Medication Instructions Recorded Confirmed clopidogrel 75 mg tablet (Plavix) 75 mg PO QAM 06/05/21 04/25/24 atorvastatin 20 mg tablet 20 mg PO QAM 09/08/23 04/25/24 apixaban 5 mg tablet (Eliquis) 5 mg PO Q12H 10/08/23 04/25/24 flash glucose sensor (FreeStyle #1 ea 01/01/24 04/25/24 Yulissa 2 Sensor kit) lorazepam 0.5 mg tablet 0.5 mg PO BID PRN Anxiety 01/01/24 04/25/24 sertraline 25 mg tablet 25 mg PO QAM 01/01/24 04/25/24 mirtazapine 30 mg tablet 30 mg PO HS 01/11/24 04/25/24 empagliflozin 10 mg tablet 10 mg PO QAM 01/19/24 04/25/24 (Jardiance) ondansetron HCl 4 mg tablet 4 mg PO Q8 PRN Nausea 04/25/24 04/25/24 oxycodone 5 mg tablet 5 mg PO Q8 PRN Severe Pain (Scale 04/25/24 04/25/24 Score 7-10) pantoprazole 40 mg tablet,delayed 40 mg PO QAM 04/25/24 04/25/24 release Previous Rx's Medication Instructions Recorded spironolactone 25 mg tablet 25 mg PO QAM #30 tabs 09/23/23 metoprolol succinate 50 mg 25 mg (1/2 x 50 mg) PO BID #30 tabs 10/12/23 tablet,extended release 24 hr ropinirole 0.25 mg tablet 0.25 mg PO HS #30 tabs 10/12/23 Saccharomyces boulardii 250 mg 250 mg PO DAILY 6 weeks #42 caps 04/29/24 capsule (Florastor) levofloxacin 750 mg tablet 750 mg PO Q48H #1 tab 04/29/24 oxybutynin chloride 5 mg tablet 5 mg PO BID 30 days #60 tabs 04/29/24 Results & Data (ED) Vital Signs Vital Signs - 24 hr 05/26/24 14:46 05/26/24 15:51 05/26/24 16:42 Temperature 37.2 C Temperature Source Oral Pulse Rate 61 81 Pulse Rate [Right Finger] 60 Respiratory Rate 18 16 Respiratory Effort / Characteristics Non-Labored Spontaneous Respiratory Depth Normal Blood Pressure 136/88 Blood Pressure [Right Arm] 130/72 Blood Pressure Mean 104 Blood Pressure Mean [Right Arm] 91 Blood Pressure Position Sitting Pulse Oximetry 97 97 Oxygen Delivery Method Room Air Room Air Sepsis Recent Fever Within 48 Hours No Sepsis New/Unexplained Change in Mental Status N/A Sepsis Action Taken by Nursing No Action Required Home Medications Current Medication List: was personally reviewed by me Laboratory Data Attestation: I reviewed the patient's lab results. 05/26/24 15:14 05/26/24 15:14 Lab Results 05/26/24 05/26/24 Range/Units 15:14 16:06 WBC 12.36 H (4.8-10.8) K/ul RBC 4.66 L (4.70-6.10) M/uL Hgb 9.9 L (14.0-18.0) g/dl Hct 32.8 L (42.0-52.0) % MCV 70.4 L (80.0-100.0) fL MCH 21.2 L (25.0-34.0) pg MCHC 30.2 L (32.0-36.0) g/dL RDW Std Deviation 43.8 (36.4-46.3) fL RDW Coeff of Dione 17.4 H (11.5-14.5) % Plt Count 312 (130-400) K/uL MPV 9.9 (9.4-12.4) fL Immature Gran % (Auto) 0.6 % Neut % (Auto) 57.9 % Lymph % (Auto) 31.9 % [place] % (Auto) 6.3 % Eos % (Auto) 2.8 % Baso % (Auto) 0.5 % Neut # (Auto) 7.15 H (1.40-6.50) K/uL Lymph # (Auto) 3.94 H (1.20-3.40) K/uL [place] # (Auto) 0.78 H (0.11-0.59) K/uL Eos # (Auto) 0.35 (0.00-0.50) K/uL Baso # (Auto) 0.06 (0.00-0.20) K/uL Immature Gran # (Auto) 0.08 (0.01-0.20) K/uL PT Cancelled 11.4 INR Cancelled 1.1 APTT Cancelled 30 PTT Ratio Cancelled 1.1 Sodium 139 (136-145) mmol/L Potassium 4.5 (3.5-5.1) mmol/L Chloride 109 H (98-107) mmol/L Carbon Dioxide 21 (21-32) mmol/L Anion Gap 9 (3-11) BUN 30 H (6-23) mg/dl Creatinine 2.87 H (0.6-1.4) mg/dl Est Cr Clr Drug Dosing 26.9 ml/min Est GFR ( Amer) 27.7 ml/min Est GFR (Non-Af Amer) 23.9 ml/min BUN/Creatinine Ratio 10.5 (10-20) Glucose 144 H (70-99(Fasting)) mg/dl Calcium 9.5 (8.6-10.3) mg/dl Magnesium 1.9 (1.7-2.4) mg/dl Total Bilirubin 0.3 (0.2-1.0) mg/dl AST 15 (13-39) U/L ALT 6 L (7-52) U/L Alkaline Phosphatase 67 (34-104) U/L Troponin I High Sens 11.7 (0-20) pg/ml Total Protein 7.9 (6.0-8.3) gm/dl Albumin 3.9 (3.4-5.0) gm/dl Globulin 4.0 (2.5-4.0) gm/dl Albumin/Globulin Ratio 1.0 (0.9-2) TSH 1.101 (0.300-4.500) uIu/ml Administered Medications Discontinued Medications Sodium Chloride (Nss) 500 mls @ 999 mls/hr IV .Q31M YADIRA Stop: 05/26/24 15:15 Last Infusion: 05/26/24 15:49 Dose: Infused Documented By: Admin: 05/26/24 15:17 Dose: 999 mls/hr Documented By: ASW Sodium Chloride (Nss) 500 mls @ 999 mls/hr IV .Q31M ONE Stop: 05/26/24 16:17 Last Infusion: 05/26/24 16:26 Dose: Infused Documented By: Admin: 05/26/24 15:49 Dose: 999 mls/hr Documented By: ASW Imaging Data Radiologist's Impression: Chest X-Ray 05/26/24 14:37 XR chest 1V portable HISTORY: 53 years-old Male weakness acute weakness COMPARISON: 03/13/2024 TECHNIQUE: AP view of the chest FINDINGS: Cardiac mediastinal and hilar silhouettes are within normal limits. Mild chronic interstitial coarsening of the lung bases. No pneumothorax, pleural effusion or overt pulmonary edema. IMPRESSION: No acute process. ACT 112: Negative or not required by law. The above report was generated using voice recognition software. It may contain grammatical, syntax or spelling errors. Electronically signed by: Rufino Jo M.D. 05/26/2024 3:30 PM Discharge Plan Visit Data Chief Complaint: Abnormal Labs/Diagnostic Testing Stated Complaint: ABNORMAL LABS, DIZZINESS ED Provider: Samson Monterroso Discharge Problem: BRUNA (acute kidney injury), Anemia, Acute dehydration, Leukocytosis Patient Disposition: Admitted As Inpatient Condition: Fair Forms Stand Alone Forms: [facility] Prescriptions Prescriptions: No Action sertraline 25 mg tablet 25 mg PO QAM lorazepam 0.5 mg tablet 0.5 mg PO BID PRN (Reason: Anxiety) (DME) FreeStyle Yulissa 2 Sensor Kit See Rx Instructions .ROUTE .MEDSUPPLY Qty: 1 Rx Instructions: As directed Eliquis 5 mg tablet 5 mg PO Q12H Hold Instructions: Can resume on 03/21/24 as per your supervisor electron tube processing ropinirole 0.25 mg Tablet 0.25 mg PO HS Qty: 30 0RF metoprolol succinate 50 mg Tablet Extended Release 24 Hr 25 mg PO BID Qty: 30 0RF clopidogrel [Plavix] 75 mg Tablet 75 mg PO QAM Hold Instructions: Can resume on 03/21/24 as per your supervisor electron tube processing atorvastatin 20 mg tablet 20 mg PO QAM Hold Instructions: Resume on 10/14/23. spironolactone 25 mg Tablet 25 mg PO QAM Qty: 30 0RF Hold Instructions: Until further recommendations from your physician mirtazapine 30 mg Tablet 30 mg PO HS Jardiance 10 mg Tablet 10 mg PO QAM ondansetron HCl 4 mg tablet 4 mg PO Q8 PRN (Reason: Nausea) oxycodone 5 mg tablet 5 mg PO Q8 PRN (Reason: Severe Pain (Scale Score 7-10)) pantoprazole 40 mg tablet,delayed release (DR/EC) 40 mg PO QAM levofloxacin 750 mg Tablet 750 mg PO Q48H Qty: 1 0RF oxybutynin chloride 5 mg Tablet 5 mg PO BID 30 Days Qty: 60 0RF Saccharomyces boulardii [Florastor] 250 mg capsule 250 mg PO DAILY 42 Days Qty: 42 0RF Referrals Referrals: Pedro Pablo Gaspar MD [Primary Care Provider] - Discharge Problem: Anemia Qualifiers: Anemia type: unspecified type Qualified Code(s): D64.9 - Anemia, unspecified Leukocytosis Qualifiers: Leukocytosis type: unspecified Qualified Code(s): D72.829 - Elevated white blood cell count, unspecified
[2024-05-26] MEDS: SODIUM CHLORIDE 0.9% 500 ML IV SCH (15:17)
--- NOTE | 2024-05-26 15:32 | XRay Report ---
XR chest 1V portable HISTORY: 53 years-old Male weakness acute weakness COMPARISON: 03/13/2024 TECHNIQUE: AP view of the chest FINDINGS: Cardiac mediastinal and hilar silhouettes are within normal limits. Mild chronic interstitial coarsen ing of the lung bases. No pneumothorax, pleural effusion or overt pulmonary edema. IMPRESSION: No acute process. ACT 112: Negative or not required by law. The above report was generated using voice recognition software. It may contain grammatical, syntax o r spelling errors. Electronically signed by: Rufino Jo M.D. 05/26/2024 3:30 PM
[2024-05-26 15:40] LABS: Basophils # (auto) 0.06 K/uL (0.00-0.20); Basophils % (auto) 0.5 %; Eosinophils # (auto) 0.35 K/uL (0.00-0.50); Eosinophils % (auto) 2.8 %; Hematocrit (blood only) 32.8 % (42.0-52.0); Hemoglobin 9.9 g/dl (14.0-18.0); Immature Granulocytes # (auto) 0.08 K/uL (0.01-0.20); Immature Granulocytes % (auto) 0.6 %; Lymphocytes # (auto) 3.94 K/uL (1.20-3.40); Lymphocytes % (auto) 31.9 %; Mean Corpuscular Hemoglobin 21.2 pg (25.0-34.0); Mean Corpuscular Hgb Conc 30.2 g/dL (32.0-36.0); Mean Corpuscular Volume 70.4 fL (80.0-100.0); Mean Platelet Volume 9.9 fL (9.4-12.4); Monocytes # (auto) 0.78 K/uL (0.11-0.59); Monocytes % (auto) 6.3 %; Neutrophils # (auto) 7.15 K/uL (1.40-6.50); Neutrophils % (auto) 57.9 %; Platelet Count 312 K/uL (130-400); RDW Coefficient of Variation 17.4 % (11.5-14.5); RDW Standard Deviation 43.8 fL (36.4-46.3); Red Blood Count 4.66 M/uL (4.70-6.10); White Blood Count 12.36 K/ul (4.8-10.8)
[2024-05-26] MEDS: SODIUM CHLORIDE 0.9% 500 ML IV ONE (15:49)
[2024-05-26 15:52] LABS: Albumin Level 3.9 gm/dl (3.4-5.0); BUN Creatinine Ratio 10.5 (10-20); Bilirubin,Total 0.3 mg/dl (0.2-1.0); Calcium 9.5 mg/dl (8.6-10.3); Creatinine Clr Calc Pharmacy 26.9 ml/min; Est GFR (African American) 27.7 ml/min; Est GFR (Non-African American) 23.9 ml/min; Magnesium 1.9 mg/dl (1.7-2.4); Potassium 4.5 mmol/L (3.5-5.1); Total Protein 7.9 gm/dl (6.0-8.3)
[2024-05-26 15:57] LABS: Troponin I High Sensitivity 11.7 pg/ml (0-20)
[2024-05-26 16:05] LABS: Appearance Urine Clear (Clear); Bacteria Urine Automated None Seen (None Seen); Bilirubin Urine Negative (Negative); Blood Urine Negative (Negative); Color Urine Orange; Epithelial Cell Urine Auto 0-2 /hpf (0-2); Glucose Urine UA 3+ (Negative); Ketones Urine Negative (Negative); Leukocyte Esterase Urine 2+ (Negative); Nitrite Urine Negative (Negative); Protein Urine Trace (Negative); RBC Urine Automated 0-2 /hpf (0-2); Specific Gravity Urine 1.016 (1.000-1.030); Urobilinogen Urine Negative (Negative); WBC Urine Automated 21-50 /hpf (0-5); pH Urine 5.5 (4.5-7.5)
[2024-05-26 16:07] LABS: Thyroid Stimulating Hormone 1.101 uIu/ml (0.300-4.500)
[2024-05-26 16:51] LABS: INR 1.1 (0.9-1.1); Partial Thromboplastin Ratio 1.1; Partial Thromboplastin Time 30 Seconds (21-31); Prothrombin Time 11.4 Seconds (9.0-12.0)
[2024-05-26] MEDS: ceFAZolin 2000MG 2,000 MG/15 ML SYR IV STA (17:06)
--- NOTE | 2024-05-26 17:38 | History & Physical Report ---
Date of Service May 26, 2024 Assessment & Plan (1) BRUNA (acute kidney injury): (2) Leukocytosis: (3) Anemia: (4) Chronic ischemic heart disease: (5) Chronic HFrEF (heart failure with reduced ejection fraction): (6) DM type 2 (diabetes mellitus, type 2): Plan This is a 53 y/o male with chronic systolic heart failure, CAD s/p PA w/ stenting in 2013, HTN, hyperlipidemia, ischemic cardiomyopathy, DM2, GERD, CKD3, prior PE, prior CVA w/ mild cognitive disability, and hx alcohol abuse who presented to the ED today due to referral by PCP. Hospitalization 04/25 to 04/29 secondary to staph bacteremia, sepsis, aspiration PNA and BRUNA. Prescribed 4 weeks of IV cefazolin through 05/25 however this was discontinued on 05/11 due to increasing renal function. PCP discussed with infectious disease who felt that as long as he had a 2-week course of antibiotics that should cover bacteremia, although 4-week more ideal. He was instructed to hold lisinopril, metformin and Aldactone at d/c due to BRUNA; but likely was not done as pt states his medications are in pills packs and he didn't know which ones they were. BRUNA pt with normal renal fxn in march last admission had BRUNA but with signs of improvement given IVF and holding meds obtain renal/bladder US, continue giles, strict intake and output, spot prot/cr ratio consult nephrology I suspect possibly ATN in setting of recent infection/nephrotoxic agents as he resumed metformin/lisinopril/aldactone when he returned home despite instructed not to (pharmacy review reveals these were refilled 05/25 so likely he was taking) IVF 80cc/hr for additional 2L; he received 1 L in ED Recent Staph bacteremia, UTI Leukocytosis only completed 2 week course of ancef due to elevated renal function, was to complete 4 through 05/25/24 await repeat blood and urine cultures, monitor off antibiotics for now US guided IV was removed in ED from RUE consult ID BPH without urinary obstruction/LUTS: Chronic pt still needs to establish appt with [facility] [place] will consult urology for giles cath exchange due to pt complaining of chronic penile discomfort continue oxybutnin HFrEF: Left ventricular apical thrombus: Ischemic cardiomyopathy, severe coronary artery disease: 11/2/23: ECHO 09/17 EF 20-25%, severe hypokinesis & Left ventricular apical thrombus discovered in the setting of severe cardiomyopathy ECHO from 04/27 EF 50 to 55%, moderate concentric LVH, moderate size inferior and posterior wall motion abnormality with hypokinesis of the segments consistent with RCA occlusion Status post cardiac cath 09/22: Three-vessel coronary artery disease with markedly elevated left end-diastolic pressure. Diffuse coronary atherosclerosis but degree of coronary disease disproportionate to degree of systolic dysfunction Takes plavix, eliquis combo for thrombus/severe CAD Cont Metoprolol, jardiance; lisinopril and aldactone on hold in setting of BRUNA ASCVD: H/O CVA with cognitive deficit: Occurred in 2019 Continue atorvastatin T2DM a1c 7.8 in April hold metformin lantus/novolog per protocol Hx of Pulmonary Emboli c/b Pulmonary Infarct Continue Eliquis Pulmonary Nodule (per last admission imaging) Persistent 1.2 cm nodular opacity within the right lower lobe. This remains indeterminate and a follow-up chest CT in 2 months to ensure resolution is recommended. Please refer to full report in the Ordered Studies section above Further work up, management, and ff up as outpatient Chronic Anemia: hgb stable at 9.9; Aug 2023 was 14; however he had GIB in March with esophageal ulcers nonbleeding, on protonix, iron studies ordered and reveal iron deficiency, will start venofer 300mg x 1, recommend OP Colonoscopy DVT ppx: Berkleyquis FULL CODE PCP: Hubert Dispo: admit to medical, pt appears unkempt and per EMS living conditions were deplorable, will need to get office of aging involved in a.m., pt may need rehab/placement, will order PT/OT Pt was seen and examined in collaboration with Dr. Sales, please see addendum A total of 83 min was spent coordinating, documenting, and providing care for this patient excluding time spent in the performance of separately billed services. This included personally viewing all current laboratories and imaging studies, medication reconciliation, outpatient chart review, and discussion with specialists. History of Present Illness Chief Complaint: Referred by PCP due to abnormal labs. Primary Care Provider: Pedro Pablo Gaspar MD This is a 53 y/o male with chronic systolic heart failure, CAD s/p PA w/ stenting in 2013, HTN, hyperlipidemia, ischemic cardiomyopathy, DM2, GERD, CKD3, prior PE, prior CVA w/ mild cognitive disability, and hx alcohol abuse who presented to the ED today with increased urethral pain that he relates to his Giles catheter. Of significance patient was recently hospitalized to 04/29 secondary to sepsis in setting of staph bacteremia and aspiration pneumonia. He was started on IV Zosyn and 1 out of 4 blood cultures were growing Staph aureus. He was then transitioned to cefazolin and Levaquin at discharge. He was seen and evaluated by infectious disease who recommended IV antibiotics for 4 weeks through 05/25/2024 due to concern for staph bacteremia. He completed oral Levaquin for pneumonia. His hospital course was complicated by BRUNA. Peak creatinine was 2.61. He was treated with IV fluids and nephrotoxic agents were held including lisinopril, metformin and Aldactone. His cr improved to 1.9 at discharge. At discharge she was informed to hold all 3 of these. His hospital course was further complicated by an episode of chest pain that was evaluated by cardiology and felt to be noncardiac, hypomagnesemia and chronic urethral/penile pain in setting of chronic Giles catheter. His Giles catheter was exchanged on admission on 04/25. He was discharged to home and had PCP follow-up as well as weekly labs. Labs revealed increase in his creatinine. After 2 weeks of antibiotic therapy he was placed on hold due to the elevation in creatinine. Outpatient PCP was in contact with infectious disease regarding this decision. Repeat labs again revealed elevated creatinine and therefore he was referred to ED for further evaluation. He did not seek emergency treatment soon as advised, but home health nurse encouraged him to come in today to be evaluated. He reports he has been feeling okay. He continues to have pain in his penis and urethra from prostate and giles cath. He reports he is unsure how much he has been filling up his catheter bag, but he has been emptying it at least once a day. He denies any vomiting or diarrhea. He reports a decent appetite and has been drinking fluids. He denies f/c/s, chest pain, sob, n/v/d, abd pain, hematuria. Only medication changes since d/c was his psychiatrist switched him from ativan to buspar. He reports his medications come in pill packs so he does not think he held his medications as he would not know what they are. In ED patient remained hemodynamically stable. Lab work remarkable for BUN/creatinine of 30 and 2.87, mild leukocytosis at 12.36 K, H&H stable at 9.9 and 32.8. His urinalysis is consistent for positive leukocyte esterase, WBC, glucose and trace protein. He received 1 L of IV fluid in ED. He reports he still smokes cigarettes but reports minimal alcohol use. Allergies Allergy/AdvReac Type Severity Reaction Status Date / Time No Known Allergies Allergy Verified 04/25/24 16:14 Home Medications Medication Instructions Recorded Confirmed Type clopidogrel 75 mg tablet (Plavix) 75 mg PO QAM 06/05/21 05/26/24 History atorvastatin 20 mg tablet 20 mg PO QAM 09/08/23 05/26/24 History spironolactone 25 mg tablet 25 mg PO QAM #30 tabs 09/23/23 05/26/24 Rx apixaban 5 mg tablet (Eliquis) 5 mg PO Q12H 10/08/23 05/26/24 History metoprolol succinate 50 mg 25 mg (1/2 x 50 mg) PO BID #30 tabs 10/12/23 05/26/24 Rx tablet,extended release 24 hr ropinirole 0.25 mg tablet 0.25 mg PO HS #30 tabs 10/12/23 05/26/24 Rx flash glucose sensor (FreeStyle #1 ea 01/01/24 05/26/24 History Yulissa 2 Sensor kit) sertraline 25 mg tablet 25 mg PO QAM 01/01/24 05/26/24 History mirtazapine 30 mg tablet 30 mg PO HS 01/11/24 05/26/24 History empagliflozin 10 mg tablet 10 mg PO QAM 01/19/24 05/26/24 History (Jardiance) ondansetron HCl 4 mg tablet 4 mg PO Q8 PRN Nausea 04/25/24 05/26/24 History oxycodone 5 mg tablet 5 mg PO Q8 PRN Severe Pain (Scale 04/25/24 05/26/24 History Score 7-10) pantoprazole 40 mg tablet,delayed 40 mg PO QAM 04/25/24 05/26/24 History release Saccharomyces boulardii 250 mg 250 mg PO DAILY 6 weeks #42 caps 04/29/24 05/26/24 Rx capsule (Florastor) oxybutynin chloride 5 mg tablet 5 mg PO BID 30 days #60 tabs 04/29/24 05/26/24 Rx buspirone 7.5 mg tablet 7.5 mg PO BID 05/26/24 05/26/24 History lisinopril 10 mg tablet 20 mg PO DAILY 05/26/24 05/26/24 History metformin 500 mg tablet,extended 1,000 mg PO DAILY 05/26/24 05/26/24 History release 24 hr Past Med/Surg History Problem List Leukocytosis (Acute) Acute dehydration (Acute) Anemia (Acute) BRUNA (acute kidney injury) (Acute) Staphylococcus aureus bacteremia Hematuria Anemia Chronic ischemic heart disease Elevated troponin I level Chest pain Recurrent pulmonary embolism ASCVD (arteriosclerotic cardiovascular disease) Left ventricular apical thrombus Chronic HFrEF (heart failure with reduced ejection fraction) BPH w/o urinary obs/LUTS BPH (benign prostatic hyperplasia) Hypomagnesemia Penile pain Acute kidney injury superimposed on CKD Aspiration pneumonia Hypotension (Acute) UTI (urinary tract infection) (Acute) Sepsis (Acute) Ulcer, esophagus Acute blood loss anemia Acute cholecystitis Acute upper GI bleed Encounter for pre-operative examination BPH loc w urin obs/LUTS Pancreatic pseudocyst Gastric perforation Abnormal CT of the abdomen Tachycardia (Acute) Constipation (Acute) Acute urinary retention (Acute) BRUNA (acute kidney injury) (Acute) Lower abdominal pain (Acute) LV (left ventricular) mural thrombus Noted on 09/17/23 ECHO- currently on Eliquis Pulmonary infarct Pneumonia Acute urinary retention BRUNA (acute kidney injury) Prolonged QT interval Acute systolic CHF (congestive heart failure) Elevated LFTs Hypoxia Acute CHF Pulmonary embolism Elevated troponin (Acute) H/O: CVA (cerebrovascular accident) (Acute) Abnormal MRI of head MRI 06/15/20 showed MCA infarcts as well as ring enhancement right posterior lobe. Repeat MRI recommended in 3 months. Stenosis of right internal carotid artery with cerebral infarction Chronic ischemic right MCA stroke Ischemic cardiomyopathy EF=20-25% 09/2023 CKD (chronic kidney disease), stage III Hx of endarterectomy (06/28/20) Right Carotid Endarterectomy with Bovine Patch Angioplasty Dr. Arita 06/28/2020 Dyslipidemia Depression CAD (coronary artery disease) (~2013) 2014 - NSTEMI s/p BRUCE to RCA Cardiac cath 09/22/23 ([facility])- no stents or bypass (did show three vessel CAD) DM type 2 (diabetes mellitus, type 2) Hgb A1C 12.4 Only on Metformin as of 01/19/24 Hypertension (Chronic) Carotid stenosis, bilateral s/ right CEA (2019) Medical History Giles catheter in place Enlarged prostate Hx pulmonary embolism 09/08/23- bilateral PEs History of suicidal ideation (~2020) voluntary admission [facility] Hx of congestive heart failure (~10/2023) [facility] Hx of pancreatitis History of cerebrovascular accident (~2019) x5 "multiple mini strokes" [facility], no current neurologist, left arm "almost useless" and left side "doesn't work quite right" Most recent CVA 2020 per records Surgical History Hx of cardiac catheterization (~09/2023) [facility], no stents S/P drug eluting coronary stent placement (~2013) [facility], currently follows at [facility] Family History Mother , age 68 from metastatic lung cancer Lung cancer Father No problems noted. 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 Sales addendum for physical exam findings. Results & Data Results & Data Vital Signs (Past 12 Hours) Vital Signs Temp Pulse Pulse Resp BP BP Pulse Ox 05/26/24 16:42 81 05/26/24 15:51 60 16 130/72 97 05/26/24 14:46 37.2 C 61 18 136/88 97 O2 Del Method 05/26/24 16:42 05/26/24 15:51 Room Air 05/26/24 14:46 Room Air Laboratory Results I have independently reviewed and interpreted patient's admitting labs including CBC, CMP, PTT, PT/INR, mag and troponin, TSH, UA. Diagnostic Findings Chest X-Ray 05/26/24 14:37 XR chest 1V portable HISTORY: 53 years-old Male weakness acute weakness COMPARISON: 03/13/2024 TECHNIQUE: AP view of the chest FINDINGS: Cardiac mediastinal and hilar silhouettes are within normal limits. Mild chronic interstitial coarsening of the lung bases. No pneumothorax, pleural effusion or overt pulmonary edema. IMPRESSION: No acute process. ACT 112: Negative or not required by law. The above report was generated using voice recognition software. It may contain grammatical, syntax or spelling errors. Electronically signed by: Rufino Jo M.D. 05/26/2024 3:30 PM Medications Administered Medication List Discontinued Medications Sodium Chloride (Nss) 500 mls @ 999 mls/hr IV .Q31M YADIRA Stop: 05/26/24 15:15 Last Infusion: 05/26/24 15:49 Dose: Infused Documented By: Admin: 05/26/24 15:17 Dose: 999 mls/hr Documented By: EJW Sodium Chloride (Nss) 500 mls @ 999 mls/hr IV .Q31M ONE Stop: 05/26/24 16:17 Last Infusion: 05/26/24 16:26 Dose: Infused Documented By: Admin: 05/26/24 15:49 Dose: 999 mls/hr Documented By: ADRIENNE Cefazolin Sodium (Ancef 2000mg) 2,000 mg in 15 mls @ 3.75 mls/min IV NOW STA Stop: 05/26/24 16:46 Last Admin: 05/26/24 17:06 Dose: 3.75 mls/min Documented By: EJW ECG Additional Comments: I have independently reviewed and interpreted patient's admitting EKG which revealed: 63, NSR, no st or t wave change COVID-19 Results Results COVID-19 Adm Lab Results: RBC 4.66 M/uL (4.70-6.10) L 05/26/24 WBC 12.36 K/ul (4.8-10.8) H 05/26/24 Hgb 9.9 g/dl (14.0-18.0) L 05/26/24 Hct 32.8 % (42.0-52.0) L 05/26/24 Plt Count 312 K/uL (130-400) 05/26/24 Neutrophils (%) (Auto) 57.9 % 05/26/24 Lymphocytes (%) (Auto) 31.9 % 05/26/24 Monocytes # (Auto) 0.78 K/uL (0.11-0.59) H 05/26/24 Eosinophils # (Auto) 0.35 K/uL (0.00-0.50) 05/26/24 Immature Granulocyte % (Auto) 0.6 % 05/26/24 Neutrophils # (Auto) 7.15 K/uL (1.40-6.50) H 05/26/24 Lymphocytes # (Auto) 3.94 K/uL (1.20-3.40) H 05/26/24 Monocytes # (Auto) 0.78 K/uL (0.11-0.59) H 05/26/24 Eosinophils # (Auto) 0.35 K/uL (0.00-0.50) 05/26/24 Basophils # (Auto) 0.06 K/uL (0.00-0.20) 05/26/24 Immature Granulocyte # (Auto) 0.08 K/uL (0.01-0.20) 4 Na 139 mmol/L (136-145) 05/26/24 K 4.5 mmol/L (3.5-5.1) 05/26/24 Cl 109 mmol/L (98-107) H 05/26/24 CO2 21 mmol/L (21-32) 05/26/24 Anion Gap 9 (3-11) 05/26/24 BUN 30 mg/dl (6-23) H 05/26/24 Creatinine 2.87 mg/dl (0.6-1.4) H 05/26/24 BUN/Creatinine Ratio 10.5 (10-20) 05/26/24 Glucose Level 144 mg/dl (70-99(Fasting)) H 05/26/24 Ca 9.5 mg/dl (8.6-10.3) 05/26/24 Total Bilirubin 0.3 mg/dl (0.2-1.0) 05/26/24 AST/SGOT 15 U/L (13-39) 05/26/24 ALT/SGPT 6 U/L (7-52) L 05/26/24 Alkaline Phosphatase 67 U/L (34-104) 05/26/24 Total Protein 7.9 gm/dl (6.0-8.3) 05/26/24 Albumin 3.9 gm/dl (3.4-5.0) 05/26/24 Globulin 4.0 gm/dl (2.5-4.0) 05/26/24 Albumin/Globulin Ratio 1.0 (0.9-2) 05/26/24 PTT 30 Seconds (21-31) 05/26/24 INR 1.1 (0.9-1.1) 05/26/24 Chest X-Ray 05/26/24 Code Status & VTE Plan Code Status FULL CODE VTE Prophylaxis Plan VTE Prophylaxis will be ordered: No Reason for no VTE drug order: Treatment not indicated Supervising Physician Co-Signing Physician Notes Attending Addendum: Case reviewed with the advanced practitioner. I have personally performed a history and physical examination on the patient. I have reviewed the advanced practitioner's documentation on the date of service referenced in note, and I agree with, and take responsibility for the plan of care. please refer to her notes for full details patient seen and examined, records reviewed by myself as well on exam, patient seen resting in bed, comfortable, not in distress states he feels ok overall giles catheter draining well, as per patient, no hematuria no nausea, diarrhea, fever/chills no other symptoms VS noted and reviewed oriented x 3 , not in distress, speaks in sentences with no effort nor accessory muscle use, poor hygiene normal rate, regular rhythm, no murmurs clear breath sounds bilaterally non distended, soft, nontender no bipedal edema, erythema, warmth no neuro deficits all labs, imaging noted and reviewed ASSESSMENT AND PLAN> ACUTE RENAL FAILURE likely multifactorial: continued diuretic, KATELYN I, metformin use; recent/ possibly persistent MSSA UTI, Bacteremia noted to have increasing crea since discharge from April 29, 2024 obtain renal US repeat urine, blood culture IV fluids Nephro consult other diagnoses and plan of care as per advanced practitioner's notes Jarocho Sales MD (2) Leukocytosis Leukocytosis type: unspecified Qualified Code(s): D72.829 - Elevated white blood cell count, unspecified (3) Anemia Anemia type: unspecified type Qualified Code(s): D64.9 - Anemia, unspecified
[2024-05-26] MEDS: SODIUM CHLORIDE 0.9% 1,000 ML IV SCH (18:41)
[2024-05-26] MEDS: oxyCODONE HCL IR 5 MG TAB (IMMEDIATE RELEASE) PO STA (18:41)
[2024-05-26 18:49] LABS: Iron 14 mcg/dl (35-175); Total Iron Binding Cap Calc 336 mcg/dl (250-450); Transferrin (FE) Percent Satur 4 % (20-50); Unsaturated Iron Binding Cap 322 mcg/dl (155-355)
[2024-05-26 19:13] LABS: Folate (Folic Acid),Ser orPlas 7.06 ng/ml (>5.38)
[2024-05-26] MEDS: IRON SUCROSE 300 MG in SODIUM CHLORIDE 0.9% 250 ML IV ONE (19:36)
--- NOTE | 2024-05-26 20:31 | Electrocardiogram Report ---
Test Reason : Blood Pressure : / mmHG Vent. Rate : 063 BPM Atrial Rate : 063 BPM P-R Int : 166 ms QRS Dur : 094 ms QT Int : 422 ms P-R-T Axes : 022 -24 070 degrees QTc Int : 431 ms Normal sinus rhythm Inferior infarct (cited on or before 04-MAY-2021) Abnormal ECG Confirmed by Vaibhav Espinoza ([id number]) on 05/26/2024 8:31:49 PM Referred By: Confirmed By:Luis Espinoza
[2024-05-26] MEDS ORDERED: GLUCOSE 10 TAB/TUBE PO PRN (20:32)
[2024-05-26] MEDS ORDERED: CARBOHYDRATES FOR HYPOGLYCEMIA PO PRN (20:32)
[2024-05-26] MEDS ORDERED: ACETAMINOPHEN 325 MG TAB PO PRN (20:32)
[2024-05-26] MEDS ORDERED: GLUCAGON FOR INJ 1 MG VIAL SQ PRN (20:32)
[2024-05-26] MEDS ORDERED: GLUCOSE 40% GEL 15 GM TUBE PO PRN (20:32)
[2024-05-26] MEDS ORDERED: POLYETHYLENE (MIRALAX) 17 GM PACK PO PRN (20:32)
[2024-05-26] MEDS ORDERED: DEXTROSE 50% 50 ML SYRINGE IV PRN (20:32)
[2024-05-26] MEDS ORDERED: ONDANSETRON INJ 2 MG/ML 2 ML VIAL IV PRN (20:32)
[2024-05-26] MEDS ORDERED: ONDANSETRON 4 MG OD TAB PO PRN (20:42)
[2024-05-26] MEDS ORDERED: MELATONIN 3 MG TAB PO PRN (21:00)
[2024-05-26] MEDS: oxyCODONE HCL IR 5 MG TAB (IMMEDIATE RELEASE) PO PRN (22:34)
[2024-05-26] MEDS: MIRTAZAPINE TAB 15 MG TAB PO SCH (23:10)
[2024-05-26] MEDS: LANTUS PER UNIT CHARGE SQ SCH (23:12)
[2024-05-26] MEDS: INSULIN ASPART PER UNIT CHARGE SC SCH (23:12)
[2024-05-26] MEDS: oxyBUTYnin chloride 5 MG TAB PO SCH (23:13)
[2024-05-26] MEDS: rOPINIRole HCL 0.25 MG TABLET PO SCH (23:13)
[2024-05-26] MEDS: METOPROLOL SUCC 25MG EXT REL TAB PO SCH (23:14)
[2024-05-26] MEDS: busPIRone 7.5 MG TAB PO SCH (23:14)
[2024-05-26] MEDS: APIXABAN 5 MG TABLET PO SCH (23:15)
[2024-05-26] MEDS: DOCUSATE SODIUM 100 MG CAP PO SCH (23:15)
[2024-05-27] MEDS: oxyCODONE HCL IR 5 MG TAB (IMMEDIATE RELEASE) PO STA (00:02)
[2024-05-27 00:09] LABS: Total Protein Urine Random 19.1 mg/dl (0-11.9)
[2024-05-27 00:15] LABS: Creatinine Urine Random 50.9 mg/dl; Protein Creatinine Ratio Urine 0.4 (0-0.2)
[2024-05-27] MEDS: HYDROmorphone INJ 0.5 MG/0.5 ML SYR IV PRN (01:55)
--- NOTE | 2024-05-27 07:06 | Ultrasound Report ---
RENAL ULTRASOUND HISTORY: Acute kidney injury BRUNA COMPARISON: CT 04/26/2024 FINDINGS: Right kidney: 9.9 x 4.1 x 4.3 cm. 1.0 cm lower pole cyst. No hydronephrosis. Normal corticomedullary differentiation and cortical thickness. Left kidney: 11.2 x 5.2 x 4.8 cm. 1.5 cm interpolar cyst. No hydronephrosis. Normal corticomedullary differentiation and cortical thickness. Bladder: A Rushing catheter is noted within the urinary bladder. Prostate is mildly enlarged. IMPRESSION: 1. No hydronephrosis. 2. Benign-appearing renal cysts. ACT 112: Negative or not required by law. Electronically signed by: Rufino Jo M.D. 05/27/2024 7:05 AM
[2024-05-27] MEDS: EMPAGLIFLOZIN 10 MG TAB PO SCH (07:59)
[2024-05-27] MEDS: SERTRALINE HCL 50 MG TABLET PO SCH (07:59)
[2024-05-27] MEDS: PANTOprazole 40 MG TAB PO SCH (08:00)
[2024-05-27] MEDS: ATORVASTATIN 20 MG TAB PO SCH (08:00)
[2024-05-27] MEDS: CLOPIDOGREL BISULFATE 75 MG TAB PO SCH (08:00)
[2024-05-27 08:59] LABS: Basophils # (auto) 0.07 K/uL (0.00-0.20); Basophils % (auto) 0.6 %; Eosinophils # (auto) 0.35 K/uL (0.00-0.50); Eosinophils % (auto) 2.9 %; Hematocrit (blood only) 31.9 % (42.0-52.0); Hemoglobin 9.5 g/dl (14.0-18.0); Immature Granulocytes # (auto) 0.08 K/uL (0.01-0.20); Immature Granulocytes % (auto) 0.7 %; Lymphocytes # (auto) 2.53 K/uL (1.20-3.40); Lymphocytes % (auto) 20.6 %; Mean Corpuscular Hemoglobin 21.3 pg (25.0-34.0); Mean Corpuscular Hgb Conc 29.8 g/dL (32.0-36.0); Mean Corpuscular Volume 71.7 fL (80.0-100.0); Mean Platelet Volume 10.2 fL (9.4-12.4); Monocytes # (auto) 0.86 K/uL (0.11-0.59); Neutrophils # (auto) 8.39 K/uL (1.40-6.50); Neutrophils % (auto) 68.2 %; Platelet Count 282 K/uL (130-400); RDW Coefficient of Variation 17.2 % (11.5-14.5); RDW Standard Deviation 44.2 fL (36.4-46.3); Red Blood Count 4.45 M/uL (4.70-6.10); White Blood Count 12.28 K/ul (4.8-10.8)
[2024-05-27 09:00] LABS: Albumin Globulin Ratio 0.9 (0.9-2); Albumin Level 3.4 gm/dl (3.4-5.0); BUN Creatinine Ratio 9.9 (10-20); Bilirubin,Total 0.2 mg/dl (0.2-1.0); Calcium 8.9 mg/dl (8.6-10.3); Creatinine Clr Calc Pharmacy 36.2 ml/min; Est GFR (African American) 39.7 ml/min; Est GFR (Non-African American) 34.3 ml/min; Globulin 3.6 gm/dl (2.5-4.0); Magnesium 1.7 mg/dl (1.7-2.4); Potassium 4.5 mmol/L (3.5-5.1)
--- OUTSIDE RECORDS SUMMARY | 2024-05-27 11:17 | External Medical Summary | Summary of Care ---
Author Name Unknown Organization [facility] Address [address] [facility] [place] [address] Phone [phone] Care Team Providers Care Neurosurgery Physician Name Role Phone Shira Blackman MD Primary Care Provider [phone] Reason for Visit * Reason Onset Date Comments Medication Refill 05/20/2024 Encounter Details Date Type Department Care Team (Late st Contact Info) Description 05/20/2024 Refill Family Practice [facility] [address] [facility] [place] [address] [facility]man [facility] [address] [facility] [place] [address] Indwelling Rushing catheter present Allergies No known active allergiesdocumented as of this encounter (statuses as of 05/23/2024) Medications Medication Sig Dispensed Refills Start Date End Date Status ONETOUCH VERIO STRP 03/22/2020 Active Lancets (ONETOUCH DELICA PLUS [id number]) [facility] 03/22/2020 Active FreeStyle Yulissa 2 [place] DeviceIndications: Type 2 diabetes mellitus with hemoglobin A1c goal of less than 7.0% ([facility]) Use as directed. 03/07/2021 Active Mupirocin 2 % External Ointment (Bactroban) Apply topically to affected area 2 times a day. 10/12/2023 Active Furosemide 20 MG Oral Tablet (Lasix) Take 0.5 Tablets by mouth in the morning. 09/30/2023 Active Tamsulosin HCl 0.4 MG Oral Capsule (Flomax)Indication s:Urinary retention,History of pulmonary embolism Take 1 Capsule by mouth in the morning. 30 Capsule 11/23/2023 Active Metoprolol Succinate ER 25 MG Oral Tablet Extended Release 24 Hour (toPROL XL)Indications:Chr onic systolic heart failure (HCC) Take 1 Tablet by mouth 2 times a day. 60 Tablet 11/23/2023 Active metFORMIN HCl ER 500 MG Oral Tablet Extended Release 24 Hour (Glucophage XR) Take 2 Tablets by mouth in the morning. 60 Tablet 11/23/2023 Active Lisinopril 10 MG Oral Tablet (Prinivil)Indicati ons:Type 2 diabetes mellitus with hemoglobin A1c goal of less than 7.0% (HCC),HTN, goal below 130/80 Take 1 Tablet by mouth 2 times a day. 60 Tablet 11/23/2023 Active Clopidogrel Bisulfate 75 MG Oral Tablet (pLAVix)Indication s:Old [place] (myocardial infarction),Histor y of CVA (cerebrovascular accident) [...] 03/31/2024 Active Jardiance 10 MG Oral Tablet (Empagliflozin)Ind ications:Type 2 diabetes mellitus with hemoglobin A1c goal of less than 7.0% (HCC) TAKE ONE TABLET BY MOUTH IN THE MORNING 30 Tablet 03/31/2024 Active Pantoprazole Sodium 40 MG Oral Tablet Delayed Release (Protonix) Take 1 Tablet by mouth in the morning. 30 Tablet 6 03/30/2024 Active Ondansetron HCl 4 MG Oral Tablet Take 1 Tablet by mouth every 8 hours as needed for Nausea. 10 Tablet 04/22/2024 Active Atorvastatin Calcium 20 MG Oral Tablet (Lipitor)Indicatio ns:Dyslipidemia TAKE ONE TABLET IN THE MORNING 90 Tablet 1 04/27/2024 Active ceFAZolin Sodium 2 GM Intravenous Solution Reconstituted Administer 2 g intravenously in the morning and 2 g at noon and 2 g in the evening. Active oxyCODONE HCl 5 MG Oral Tablet (Oxy IR)Indications:Ind welling Rushing catheter present Take 1 Tablet by mouth every 8 hours as needed for Pain, Severe. 30 Tablet 05/23/2024 Active oxyCODONE HCl 5 MG Oral Tablet (Oxy IR)Indications:Ind welling Rushing catheter present Take 1 Tablet by mouth every 8 hours as needed for Pain, Severe. 30 Tablet 05/10/2024 05/20/20 24 Discontinu ed(Refill) documented as of this encounter (statuses as of 05/23/2024) Active Problems Problem Noted Date Diagnosed Date [...] 05/04/2020 HTN, goal below 130/80 03/26/2020 Old [place] (myocardial infarction) 03/26/2020 Dyslipidemia 03/26/2020 Tobacco use disorder 03/26/2020 History of CVA (cerebrovascular accident) 2019 Type 2 diabetes mellitus wit h hemoglobin A1c goal of less than 7.0% 03/26/2020 Chronic systolic heart failure 03/26/2020 documented as of this encounter (statuses as of 05/23/2024) Resolved Problems Problem Noted Date Diagnosed Date Resolved Date Preoperative general physical examination 02/03/2024 03/29/2024 ETD (Eustachian tube dysfunction), bilateral 2 08/29/2022 GÓMEZ (generalized anxiety disorder) 05/08/2021 10/14/2023 Moderate episode of recurren t major depressive disorder 05/08/2021 10/14/2023 MEDICATION USE AGREEMENT 12/14/2020 Atherosclerotic heart diseas e of [place] coronary artery with other forms of angina pectoris 05/04/2020 08/08/2020 Adjustment disorder with depressed mood 03/26/2020 05/08/2021 Bilateral carotid artery stenosis 03/26/2020 07/06/2020 documented as of this encounter (statuses as of 05/23/2024) Immunizations Name Administration Dates Next Due COVID-19 mRNA, LNP-s, No Pre serve, 2-Dose Series ([employer]) 04/06/2021,03/16/2021 COVID-19, MRNA-LNP, 23-24, P F, 30 MCG/0.3 mL, 12 YRS AND ABOVE, IM ([employer]) 03/29/2024 Hepatitis B, 20+ yrs 12/14/2020,05/04/2020 Pneumococcal [...] money to get more. Never true 04/01/2024 Childcare Answer Date Recorded Do you feel overwhelmed with taking care of a child, family member or friend? No 04/01/2024 Does your family need help f inding childcare? (Household - for ages 0-17 years) Not on file 04/01/2024 Clothing Answer Date Recorded Have you been unable to get clothing when it was really needed? No 04/01/2024 Is your family able to get c lothes or diapers when needed? (Household - for ages 0-17 years) Not on file 04/01/2024 Personal Safety Answer Date Recorded Do you feel unsafe or have concerns for your saf ety? No 04/01/2024 Do you have concerns for you r family's safety? (Household - for ages 0-17 years) Not on file 04/01/2024 Utilities Answer Date Recorded Do you have trouble paying y our heating, water, or electric bill? No 04/01/2024 Is your family able to pay t he heat, water, or electric bill? (Household - for ages 0-17 years) Not on file 04/01/2024 Does your family have access to good internet? (Household - for ages 0-17 years) Not on file 04/01/2024 Employment Status Answer Date Recorded Are you unemployed or without regular income? No 04/01/2024 Does the household have a [facility] source of income? (Household - for ages 0-17 years) Not on file 04/01/2024 Social Connections Answer Date Recorded How often do you feel lonely or isolated from th ose around you? Never 04/01/2024 Financial Resource Strain Answer Date R ecorded Do you have any trouble payi ng for your medications, or do you think you might in the future? No 04/01/2024 Does your family have troubl e paying for medicine? (Household - for ages 0-17 years) Not on file 04/01/2024 Transportation Needs Answer Date Record ed READ ONLY Do you have troubl e getting a ride to medical visits or work? Never True 04/01/2024 Does your family have a hard time getting a ride to doctors visits? (Household - for ages 0-17 years) Not on file 04/01/2024 Has lack of transportation k ept you from medical appointments, meetings, work, or from getting things needed for daily living? Check all that apply. (Adult - for ages 18 years and over) Not on file 04/01/2024 Do you (or your family) have trouble finding or paying for a ride (transportation)? (Household - for ages 0-17 years) Not on file 04/01/2024 Housing Stability Answer Date Recorded Do you currently live in a s helter or have no steady place to sleep at night? No 04/01/2024 READ ONLY Do you think you a re at risk of becoming homeless? No 04/01/2024 Does your family worry about paying for your home or becoming homeless? (Household - for ages 0-17 years) Not on file 0 04/01/2024 Are you homeless or worried that you might be in the future? (Adult - for ages 18 years and over) Not on file Are you (or your family) jama eless or worried that you might be in the future? (Household - for ages 0-17 years) Not on file Food Insecurity Answer Date Recorded Do you need food for this week? No 04/01/2024 Are you able to get enough f ood for your family? (Household - for ages 0-17 years) Not on file 04/01/2024 Does your family need food t his week? (Household - for ages 0-17 years) Not on file 04/01/2024 Do you always have enough fo od for your family? (Household - for ages 0-17 years) Not on file 04/01/2024 Sex and Gender Information Value Date Recorded Sex Assigned at Not on file Gender Identity Not on file Sexual Orientation Not on file Job Start Date Occupation Industry Not on file Not on file Not on file documented as of this encounter Miscellaneous Notes * Telephone Encounter - Shira Blackman MD - 05/23/2024 6:15 PM EDTSigned Prescriptions: Disp Refills oxyCODONE HCl 5 MG Oral Tablet (Oxy IR) 30 Tab*0 Sig: Take 1 Tablet by mouth every 8 hours as needed for Pain, Severe. Authorizing Provider: SHIRA BLACKMAN * Telephone Encounter - Angie John staff developer - 05/23/2024 10:26 AM EDT pt calling to check on status of rx. Caller can be reached at [phone]. Thank you, Angie John,[facility] Associate II [facility] ([facility]) 05/23/2024, 10:26 AM * Telephone Encounter - Chiara Mosqueda [facility] - 05/23/2024 4:39 AM EDTPending Prescriptions: Disp Refills oxyCODONE HCl 5 MG Oral Tablet (Oxy IR) 30 Tab*0 Sig: Take 1 Tablet by mouth every 8 hours as needed for Pain, Severe. * Telephone Encounter - Chiara Mosqueda [facility] - 05/23/2024 4:39 AM EDT I have reviewed the patients controlled substance dispensing history in the Prescription Drug Monitoring Program in compliance with the [facility] regulations before prescribing a controlled substance. PDMP checked on 05/23/2024. Pending Prescriptions: Disp Refills oxyCODONE HCl 5 MG Oral Tablet (Oxy IR) 30 Tab*0 Sig: Take 1 Tablet by mouth every 8 hours as needed for Pain, Severe. Last Visit: 05/04/2024 (in office), 08/08/2020 (telemedicine) Next Visit: Visit date not found Date medication was last filled: 05/11/24 Date medication is due for refill: 05/20/24 Pharmacy: [facility], [address] [place] Is this request for [...] IDALIA 45 Please approve if appropriate. Thank You, Chiara Mosqueda [facility] Clinical Pharmacist [facility] ([facility]) [phone] [id number] 05/23/2024, 4:39 AM documented in this encounter Plan of Treatment Upcoming Encounters Date Type Department Care Team (Late st Contact Info) Description 05/30/2024 10:10 AM EDT Office Visit Pharmacy, [address] [place] [address] [place] [address] 06/17/2024 12:30 PM EDT Office Visit Gastroenterology [address] [place] [address] Ayala Pacheco CRNP [address] [place] [address] Health Maintenance Due Date Last Done Comments DISCUSS TOBACCO CESSATION (REFER TO SMARTSET #6174) 1970 HIV Screening 1985 Hepatitis C Screening 1988 Pneumococcal Vaccine: Pediatrics (0 to 5 Years) and At-Risk Patients (6 to 64 Years) (2 of 2 - PCV) 10/16/2015 10/16/2014 Cologuard 2015 Colonoscopy 2015 Colorectal Cancer Screening 2015 Fecal Occult Blood Test 2015 Sigmoidoscopy 2015 Hepatitis B Vaccine (3 of 3 - 19+ 3-dose series) 02/08/2021 12/14/2020, 05/04/2020 Diabetic Foot Exam 03/26/2021 03/26/2020 Diabetic Eye Exam 07/07/2023 07/07/2022, , 01/28/2021, Additional history exists Zoster Vaccines (2 of 2) 05/24/2024 03/29/2024 HbA1c 07/17/2024 01/15/2024, 08/16, 02/11/2022, Additional history exists Influenza Vaccine (FLU shot) (#1) 2024 10/15/2023, 08/29/2022, 08/14/2021, Additional history exists Depression Monitoring 11/10/2024 11/10/2023 GFR 11/18/2024 05/18/2024, 07/0 01/2024, 05/10/2024, Additional history exists CKD PHOS USE SMARTSET 00371 01/14/2025 01/15/2024, 1 12/12/2022 Albumin/Creatinine Ratio 01/26/202501/26/2 024, 08/29/2022, 12/14/2020 CKD HGB USE SMARTSET 88234 05/18/202505/18, 05/18/2024, 05/10/2024, Additional history exists DTaP,Tdap,and Td Vaccines (2 - Td or Tdap) 05/04/2030 05/04/2020 COVID-19 Vaccine Completed 03/29/2024, , 03/16/2021 HPV (Gardasil) Vaccine Aged Out No lo nger eligible based on patient's age to complete this topic MENINGOCOCCAL (MENACTRA/MENVEO) Aged Out No longer eligible based on patient's age to complete this topic documented as of this encounter Medical Devices Not on filedocumented as of this encounter Visit Diagnoses Diagnosis Indwelling Rushing catheter present documented in this encounter Care Teams Neurosurgery Physician Relationship Specialty Start Date End Date Shira Blackman MD [address] [place] [address] PCP - General Family Medicine 10/22/20 documented as of this encounter
--- OUTSIDE RECORDS SUMMARY | 2024-05-27 11:17 | External Medical Summary | Summary of Care ---
Author Name Unknown Organization [facility] Address [address] [facility] [place] [address] Phone [phone] Care Team Providers Care Medical Physicist Name Role Phone Shira Blackman MD Primary Care Provider [phone] Reason for Visit * Reason Comments eRx-Medication Refill Encounter Details Date Type Department Care Team (Late st Contact Info) Description 05/24/2024 Refill Family Practice [facility] [address] [place] [address] Shira Blackman MD [address] [place] [address] Allergies No known active allergiesdocumented as of this encounter (statuses as of 05/25/2024) Medications Medication Sig Dispensed Refills Start Date End Date Status ONETOUCH VERIO STRP 0 Active Lancets (ONETOUCH DELICA PLUS [id number]) [facility] 0 Active FreeStyle Yulissa 2 [place] DeviceIndications :Type 2 diabetes mellitus with hemoglobin A1c goal of less than 7.0% ([facility]) Use as directed. 1 Active Mupirocin 2 % External Ointment (Bactroban) Apply topically to affected area 2 times a day. 3 Active Furosemide 20 MG Oral Tablet (Lasix) Take 0.5 Tablets by mouth in the morning. 3 Active Tamsulosin HCl 0.4 MG Oral Capsule (Flomax)Indicatio ns:Urinary retention,History of pulmonary embolism Take 1 Capsule by mouth in the morning. 30 Capsule 5 4 Active Metoprolol Succinate ER 25 MG Oral Tablet Extended Release 24 Hour (toPROL XL)Indications:Ch ronic systolic heart failure (HCC) Take 1 Tablet by mouth 2 times a day. 60 Tablet 5 4 Active metFORMIN HCl ER 500 MG Oral Tablet Extended Release 24 Hour (Glucophage XR) Take 2 Tablets by mouth in the morning. 60 Tablet 11 4 Active Lisinopril 10 MG Oral Tablet (Prinivil)Indicat ions:Type 2 diabetes mellitus with hemoglobin A1c goal of less than 7.0% (HCC),HTN, goal below 130/80 Take 1 Tablet by mouth 2 times a day. 60 Tablet 5 4 Active Clopidogrel Bisulfate 75 MG Oral Tablet (pLAVix)Indicatio ns:Old [place] (myocardial infarction),Histo ry of CVA (cerebrovascular accident) TAKE 1 TABLET BY MOUTH EVERY DAY IN THE MORNING 90 Tablet 1 4 Active FreeStyle Yulissa 2 Sensor Use as directed. Use as directed to check blood sugar 3 Each 2 4 Active LORazepam 0.5 MG Oral Tablet (Ativan) Take 1 Tablet by mouth every 6 hours as needed for Anxiety. Takes as needed Active Sertraline HCl 25 MG Oral Tablet (Zoloft) Take 1 Tablet by mouth in the morning. Active rOPINIRole HCl 0.25 MG Oral Tablet (Requip) TAKE ONE TABLET AT BEDTIME 30 Tablet 2 4 Active Jardiance 10 MG Oral Tablet (Empagliflozin)In dications:Type 2 diabetes mellitus with hemoglobin A1c goal of less than 7.0% (HCC) TAKE ONE TABLET BY MOUTH IN THE MORNING 30 Tablet 2 4 Active Pantoprazole Sodium 40 MG Oral Tablet Delayed Release (Protonix) Take 1 Tablet by mouth in the morning. 30 Tablet 6 4 Active Ondansetron HCl 4 MG Oral Tablet Take 1 Tablet by mouth every 8 hours as needed for Nausea. 10 Tablet 4 Active Atorvastatin Calcium 20 MG Oral Tablet (Lipitor)Indicati ons:Dyslipidemia TAKE ONE TABLET IN THE MORNING 90 Tablet 1 4 Active ceFAZolin Sodium 2 [place] Intravenous Solution Reconstituted Administer 2 g intravenously in the morning and 2 g at noon and 2 g in the evening. Active oxyCODONE HCl 5 MG Oral Tablet (Oxy IR)Indications:In dwelling Rushing catheter present Take 1 Tablet by mouth every 8 hours as needed for Pain, Severe. 30 Tablet 4 Active Eliquis 5 MG Oral Tablet (Apixaban) TAKE ONE TABLET BY MOUTH TWICE DAILY 60 Tablet 5 4 Active Apixaban 5 MG Oral Tablet (Eliquis) Take 1 Tablet by mouth 2 times a day. 60 Tablet 5 4 05/25/20 24 Discontinued documented as of this encounter (statuses as of 05/25/2024) Active Problems Problem Noted Date Diagnosed Date [...] 05/04/2020 HTN, goal below 130/80 03/26/2020 Old [place] (myocardial infarction) 03/26/2020 Dyslipidemia 03/26/2020 Tobacco use disorder 03/26/2020 History of CVA (cerebrovascular accident) 2019 Type 2 diabetes mellitus wit h hemoglobin A1c goal of less than 7.0% 03/26/2020 Chronic systolic heart failure 03/26/2020 documented as of this encounter (statuses as of 05/25/2024) Resolved Problems Problem Noted Date Diagnosed Date Resolved Date Preoperative general physical examination 02/03/2024 03/29/2024 ETD (Eustachian tube dysfunction), bilateral 2 08/29/2022 GÓMEZ (generalized anxiety disorder) 05/08/2021 10/14/2023 Moderate episode of recurren t major depressive disorder 05/08/2021 10/14/2023 MEDICATION USE AGREEMENT 12/14/2020 Atherosclerotic heart diseas e of [place] coronary artery with other forms of angina pectoris 05/04/2020 08/08/2020 Adjustment disorder with depressed mood 03/26/2020 05/08/2021 Bilateral carotid artery stenosis 03/26/2020 07/06/2020 documented as of this encounter (statuses as of 05/25/2024) Immunizations Name Administration Dates Next Due COVID-19 [...] No 04/01/2024 Does the household have a [facility] source of income? (Household - for ages [...] encounter Miscellaneous Notes * Telephone Encounter - Rufino Nunez [facility] - 05/25/2024 5:13 PM EDTSigned Prescriptions: Disp Refills Eliquis 5 MG Oral Tablet (Apixaban) 60 Tab*5 Sig: TAKE ONE TABLET BY MOUTH TWICE DAILYAuthorizing Provider: SHIRA BLACKMAN User: RUFINO NUNEZ-- documented in this encounter Plan of Treatment Upcoming Encounters Date Type Department Care Team (Late st Contact Info) Description 05/30/2024 10:10 AM EDT Office Visit Pharmacy, [address] [place] [address] [place] [address] 06/17/2024 12:30 PM EDT Office Visit Gastroenterology [address] [place] [address] Ayala Pacheco CRNP [address] [place] [address] Health Maintenance Due Date Last Done Comments DISCUSS TOBACCO CESSATION (REFER TO SMARTSET #2042) 1970 HIV Screening 1985 Hepatitis C Screening [...] Additional history exists CKD PHOS USE SMARTSET [id number] 01/14/2025 01/15/2024, 1 12/12/2022 Albumin/Creatinine Ratio 01/26/20252 024, 08/29/2022, 12/14/2020 CKD HGB USE SMARTSET 48194 05/18/202505/18, 05/18/2024, 05/10/2024, Additional history exists DTaP,Tdap,and [...] filedocumented as of this encounter Care Teams Medical Physicist Relationship Specialty Start Date End Date Shira Blackman MD [address] [place] [address] PCP - General Family Medicine 10/22/20 documented as of this encounter
--- OUTSIDE RECORDS SUMMARY | 2024-05-27 11:17 | External Medical Summary | Summary of Care ---
Author Name Unknown Organization [facility] Address [address] [place] [address] Phone [phone] Care Team Providers Care Petrology Teacher Name Role Phone Pedro Pablo Gaspar MD Primary Care Provider [phone] Encounter Details Date Type Department Care Team (Late st Contact Info) Description 05/23/2024 10:15 AM EDT Scheduled Telephone Care Coordination and Integration [address], [place] [id number] Stephanie Saravia, [facility] [address], [place] [id number] Allergies No known active allergiesdocumented as of this encounter (statuses as of 05/23/2024) Medications Medication Sig Dispensed Refills Start Date End Date Status ONETOUCH VERIO STRP 03/22/2020 Activ e Lancets (ONETOUCH DELICA PLUS [id number]) [facility] 03/22/2020 Active FreeStyle Yulissa 2 [place] DeviceIndications:T ype 2 diabetes mellitus with hemoglobin [...] Oral Tablet Extended Release 24 Hour (toPROL XL)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 60 Tablet 11/23/2023 Active Clopidogrel Bisulfate 75 MG Oral Tablet (pLAVix)Indications :Old [place] (myocardial infarction),History of CVA (cerebrovascular accident) TAKE [...] less than 7.0% ([facility]) TAKE ONE TABLET BY MOUTH IN [...] 20 MG Oral Tablet (Lipitor)Indication s:Dyslipidemia TAKE ONE TABLET IN THE MORNING 90 [...] needed for Pain, Severe. 30 Tablet 05/10/2024 Active documented as of this encounter (statuses [...] 05/04/2020 HTN, goal below 130/80 03/26/2020 Old [place] (myocardial infarction) 03/26/2020 Dyslipidemia 03/26/2020 Tobacco use [...] AGREEMENT 12/14/2020 Atherosclerotic heart diseas e of [place] coronary artery with other forms of angina [...] No 04/01/2024 Does the household have a re lar source of income? (Household - for ages [...] as of this encounter Progress Notes * Stephanie Saravia, [facility] - 05/23/2024 10:57 AM EDT Telemedicine visit: No [facility] (KIKI) documentation: CHW placed PC to patient Patient is in a lot of pain and has contacted his PCP to hopefully get a refill on his pain meds. He is totally out and is still in a lot of pain. He contacted PCP through My chart and talked to Amos flannery today and is hoping that they can get him his pain meds. No other concerns. Still has not received his Current Health monitor arm band yet. CHW will look into this for patient. Stephanie Saravia- Community Health Worker 1 Support Services/[email or web address] [email or web address] documented in this encounter Plan of Treatment Upcoming Encounters Date Type Department Care Team (Late st Contact Info) Description 05/30/2024 10:10 AM EDT Office Visit Pharmacy, [address] [place] [address] [place] [address] 06/17/2024 12:30 PM EDT Office Visit Gastroenterology [address] [place] [address] Ayala Pacheco CRNP [address] [place] [address] Health Maintenance Due Date Last Done Comments DISCUSS TOBACCO CESSATION (REFER TO SMARTSET #6080) 1970 HIV Screening 1985 Hepatitis C Screening [...] Additional history exists CKD PHOS USE SMARTSET 55646 01/14/2025 01/15/2024, 1 12/12/2022 Albumin/Creatinine Ratio 01/26/20252 024, 08/29/2022, 12/14/2020 CKD HGB USE SMARTSET 54912 05/18/202505/18, 05/18/2024, 05/10/2024, Additional history exists DTaP,Tdap,and [...] filedocumented as of this encounter Care Teams Petrology Teacher Relationship Specialty Start Date End Date Pedro Pablo Gaspar MD [address] [place] [address] PCP - General Family Medicine 10/22/20 documented as of this encounter
--- OUTSIDE RECORDS SUMMARY | 2024-05-27 11:18 | External Medical Summary | Summary of Care ---
Author Name Unknown Organization [facility] Address [address] [place] [address] Phone [phone] Care Team Providers Care Rheumatology Specialist Name Role Phone Pedro Pablo Gaspar MD Primary Care Provider [phone] [phone] Encounter Details Date Type Department Care Team (Late st Contact Info) Description 05/18/2024 Orders Only Infectious Disease, [place] [address], [place] [phone] Yefri Pham, [address], [place] [phone] Allergies No known active allergiesdocumented as of this encounter (statuses as of 05/18/2024) Medications Medication Sig Dispensed Refills Start Date End Date Status ONETOUCH VERIO STRP 03/22/2020 Activ e Lancets (ONETOUCH DELICA PLUS [id number]) [facility] [place] 03/22/2020 Active FreeStyle Yulissa 2 [place] DeviceIndications:T ype 2 diabetes mellitus with hemoglobin [...] the morning. 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 60 Tablet 5 11/23/2023 Active metFORMIN HCl ER 500 MG [...] Bisulfate 75 MG Oral Tablet (pLAVix)Indications :Old [place] (myocardial infarction),History of CVA (cerebrovascular accident) TAKE [...] as of this encounter (statuses as of 05/18/2024) Active Problems Problem Noted Date Diagnosed Date [...] as of this encounter (statuses as of 05/18/2024) Resolved Problems Problem Noted Date Diagnosed Date [...] as of this encounter (statuses as of 05/18/2024) Immunizations Name Administration Dates Next Due COVID-19 [...] 04/01/2024 Does the household have a re gular source of income? (Household - for ages [...] 05/30/2024 10:10 AM EDT Office Visit Pharmacy, [address] [place] [address] [place] [address] 06/17/2024 12:30 PM EDT Office Visit Gastroenterology [address] [place] [address] Ayala Pacheco CRNP [address] [place] [address] Health Maintenance Due Date Last Done Comments DISCUSS TOBACCO CESSATION (REFER TO SMARTSET #2851) 1970 HIV Screening 1985 Hepatitis C Screening [...] 2024 10/15/2023, 08/29/2022, 08/14/2021, Additional history exists GFR 11/09/2024 05/18/2024, 04/17, 05/10/2024, Additional history exists Depression Monitoring 11/10/2024 11/10/2023 CKD PHOS USE SMARTSET [id number] 01/14/2025 01/15/2024, 1 12/12/2022 Albumin/Creatinine Ratio 01/26/2025 024, 08/29/2022, 12/14/2020 CKD HGB USE SMARTSET [id number] 05/10/202505/18, 05/10/2024, 05/10/2024, Additional history exists DTaP,Tdap,and Td Vaccines [...] Procedure Name Priority Date/Time Associated Diagnosis Comments CHEMISTRY-OUTSIDE Routine 05/18/2024 documented in this encounter Results * (ABNORMAL) CHEMISTRY-OUTSIDE (05/18/2024) Not all results display below - see scan for full detail OUTSIDE LAB (SEE SCANNED REPORT) Comment:SEE SCAN; CBCD, BMP CREATININE-OUTSID E LAB 3.01(H) 0.6 - 1.4 MG/DL OUTSIDE LAB (SEE SCANNED REPORT) EGFR-OUTSIDE LAB 22.6 ML/MIN/1.7 3M3 OUTSIDE LAB (SEE SCANNED REPORT) POTASSIUM-OUTSIDE LAB 5.9(H) 3.5 - 5.1 MMOL/L OUTSIDE LAB (SEE SCANNED REPORT) GLUCOSE-OUTSIDE LAB 154(H) 70 - 99 MG/DL OUTSIDE LAB (SEE SCANNED REPORT) HOURS FASTING OUTSID E LAB (SEE SCANNED REPORT) TRIGLYCERIDES-OUT SIDE LAB OUTSIDE LAB (SEE SCANNED REPORT) CHOLESTEROL-OUTSI DE LAB OUTSIDE LAB (SEE SCANNED REPORT) HDL-OUTSIDE LAB OUTS JACIEL LAB (SEE SCANNED REPORT) CHOL/HDL RATIO-OUTSIDE LAB OUTSIDE LA B (SEE SCANNED REPORT) LDL (CALCULATED)-OUTS JACIEL LAB OUTSIDE LAB (SEE SCANNED REPORT) LDL (DIRECT MEASURE)-OUTSIDE LAB OUTSIDE LAB (SEE SCANNED REPORT) HEMOGLOBIN, P1E-GVUXOCA LAB OUTSIDE LAB (SEE SCANNED REPORT) PHOSPHORUS-OUTSID E LAB OUTSIDE LAB (SEE SCANNED REPORT) PTH-OUTSIDE LAB OUTS JACIEL LAB (SEE SCANNED REPORT) MICROALBUMIN RATIO-OUTSIDE LAB OUTSIDE LA B (SEE SCANNED REPORT) PROTEIN, UA-OUTSIDE LAB OUTSIDE LAB (SEE SCANNED REPORT) HGB 9.1(L) 14.0 - 18.0 G/DL OUTSIDE LAB (SEE SCANNED REPORT) 05/18/2024 Tiawo Angel MD LABORATORY OUTSIDE LAB (SEE SCANNED REPORT) documented in this encounter Care Teams Rheumatology Specialist Relationship Specialty Start Date End Date Pedro Pablo Gaspar MD [address] [place] [address] PCP - General Family Medicine 10/22/20 documented as of this encounter
--- OUTSIDE RECORDS SUMMARY | 2024-05-27 11:18 | External Medical Summary | Summary of Care ---
Author Name Unknown Organization [facility] Address [address] [facility] [place] [address] Phone [phone] Care Team Providers Care Cold Rolling Coordinator Name Role Phone Pedro Pablo Gaspar MD Primary Care Provider [phone] [phone] Encounter Details Date Type Department Care Team (Late st Contact Info) Description 05/20/2024 Orders Only Family [facility] [address] [place] [address] Pedro Pablo Gaspar MD [address] [place] [address] Allergies No known active allergiesdocumented as of this encounter (statuses as of 05/20/2024) Medications Medication Sig Dispensed Refills Start Date End Date Status ONETOUCH VERIO STRP 03/22/2020 Activ e Lancets (ONETOUCH DELICA PLUS [id number]) [facility] [place] 03/22/2020 Active FreeStyle Yulissa 2 [place] DeviceIndications:T ype 2 diabetes mellitus with hemoglobin A1c goal of less than 7.0% ([facility]) Use as directed. 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 60 Tablet 11/23/2023 Active Clopidogrel Bisulfate 75 MG Oral Tablet (pLAVix)Indications :Old [place] (myocardial infarction),History of CVA (cerebrovascular accident) TAKE [...] goal of less than 7.0% ([facility]) TAKE ONE TABLET BY MOUTH [...] as of this encounter (statuses as of 05/20/2024) Active Problems Problem Noted Date Diagnosed Date [...] 05/04/2020 HTN, goal below 130/80 03/26/2020 Old [place] (myocardial infarction) 03/26/2020 Dyslipidemia 03/26/2020 Tobacco use disorder 03/26/2020 History of CVA (cerebrovascular accident) 2019 Type 2 diabetes mellitus wit h hemoglobin A1c goal of less than 7.0% 03/26/2020 Chronic systolic heart failure 03/26/2020 documented as of this encounter (statuses as of 05/20/2024) Resolved Problems Problem Noted Date Diagnosed Date Resolved Date Preoperative general physical examination 02/03/2024 03/29/2024 ETD (Eustachian tube dysfunction), bilateral 2 08/29/2022 GÓMEZ (generalized anxiety disorder) 05/08/2021 10/14/2023 Moderate episode of recurren t major depressive disorder 05/08/2021 10/14/2023 MEDICATION USE AGREEMENT 12/14/2020 Atherosclerotic heart diseas e of [place] coronary artery with other forms of angina pectoris 05/04/2020 08/08/2020 Adjustment disorder with depressed mood 03/26/2020 05/08/2021 Bilateral carotid artery stenosis 03/26/2020 07/06/2020 documented as of this encounter (statuses as of 05/20/2024) Immunizations Name Administration Dates Next Due COVID-19 [...] 05/30/2024 10:10 AM EDT Office Visit Pharmacy, [address] [place] [address] [place] [address] 06/17/2024 12:30 PM EDT Office Visit Gastroenterology [address] [place] [address] Ayala Pacheco CRNP [address] [place] [address] Health Maintenance Due Date Last Done Comments [...] Additional history exists CKD PHOS USE SMARTSET [id number] 01/14/2025 01/15/2024, 1 12/12/2022 Albumin/Creatinine Ratio 01/26/2025 03/2 024, 08/29/2022, 12/14/2020 CKD HGB USE SMARTSET 43395 05/18/202505/18, 05/18/2024, 05/10/2024, Additional history exists DTaP,Tdap,and [...] full detail OUTSIDE LAB (SEE SCANNED REPORT) Comment:SCAN INCLUDES: CMP, CBCD CREATININE-OUTSID E LAB 3.01(A) 0.6 - 1.4 MG/DL OUTSIDE LAB (SEE SCANNED REPORT) EGFR-OUTSIDE LAB 22.6 ML/MIN/1.7 3M2 OUTSIDE LAB (SEE SCANNED REPORT) POTASSIUM-OUTSIDE LAB 5.9(A) 3.5 - 5.1 MMOL/L OUTSIDE LAB (SEE SCANNED REPORT) GLUCOSE-OUTSIDE LAB 154(A) 70 - 99 MG/DL OUTSIDE LAB (SEE [...] LAB OUTSIDE LAB (SEE SCANNED REPORT) HEMOGLOBIN, [id number] LAB OUTSIDE LAB (SEE SCANNED REPORT) PHOSPHORUS-OUTSID E LAB OUTSIDE LAB (SEE SCANNED REPORT) PTH-OUTSIDE LAB OUTS JACIEL LAB (SEE SCANNED REPORT) MICROALBUMIN RATIO-OUTSIDE LAB OUTSIDE LA B (SEE SCANNED REPORT) PROTEIN, UA-OUTSIDE LAB OUTSIDE LAB (SEE SCANNED REPORT) HGB 9.1(A) 14 - 18 G/DL OUTSIDE LAB (SEE SCANNED REPORT) 05/18/2024 Taiwo Angel MD LABORATORY OUTSIDE LAB (SEE SCANNED REPORT) documented in this encounter Care Teams Cold Rolling Coordinator Relationship Specialty Start Date End Date Pedro Pablo Gaspar MD [address] [place] [address] PCP - General Family Medicine 10/22/20 documented as of this encounter
--- OUTSIDE RECORDS SUMMARY | 2024-05-27 11:18 | External Medical Summary | Summary of Care ---
Author Name Unknown Organization [facility] Address [address] [place] [address] Phone [phone] Care Team Providers Care Aircraft Parts Assembler Name Role Phone Pedro Pablo Gaspar MD Primary Care Provider [phone] [phone] Reason for Visit * Reason Onset Date Comments Advice 05/18/2024 Critical labs Encounter Details Date Type Department Care Team (Late st Contact Info) Description 05/18/2024 Telephone Infectious Disease, [place] [address] [place], [place] [phone] Yefri Pham, DO [address] [place], [place] [phone] Advice (Critical labs) Allergies No known active allergiesdocumented as of this encounter (statuses as of 05/18/2024) Medications Medication Sig Dispensed Refills Start Date End Date Status ONETOUCH VERIO STRP 03/22/2020 Activ e Lancets (ONETOUCH DELICA PLUS [id number]) [facility] 03/22/2020 Active FreeStyle Yulissa 2 [facility] DeviceIndications:T ype 2 diabetes mellitus with hemoglobin A1c goal of less than 7.0% ([facility]) Use as directed. 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 Creatine was 3.01 and the potassium level was 5.9. Please advise. documented in this encounter Plan of Treatment Upcoming Encounters Date Type Department Care Team (Late st Contact Info) Description 05/30/2024 10:10 AM EDT Office Visit Pharmacy, [address] [place] [address] [place] [address] 06/17/2024 12:30 PM EDT Office Visit Gastroenterology [address] [place] [address] Ayala Pacheco CRNP [address] [place] [address] Health Maintenance Due Date Last Done Comments DISCUSS TOBACCO CESSATION (REFER TO SMARTSET #9944) 1970 HIV Screening 1985 Hepatitis C Screening [...] 08/29/2022, 08/14/2021, Additional history exists GFR 11/09/2024 05/10/2024, 04/17, 05/04/2024, Additional history exists Depression Monitoring 11/10/2024 11/10/2023 CKD PHOS USE SMARTSET 14948 01/14/2025 01/15/2024, 1 12/12/2022 Albumin/Creatinine Ratio 01/26/2025 024, 08/29/2022, 12/14/2020 CKD HGB USE SMARTSET 80195 05/10/202505/10, 05/10/2024, 03/19/2024, Additional history exists DTaP,Tdap,and Td Vaccines (2 [...] filedocumented as of this encounter Care Teams Aircraft Parts Assembler Relationship Specialty Start Date End Date Pedro Pablo Gaspar MD [address] [place] [address] PCP - General Family Medicine 10/22/20 documented as of this encounter
--- OUTSIDE RECORDS SUMMARY | 2024-05-27 11:18 | External Medical Summary | Summary of Care ---
Author Name Unknown Organization [facility] Address [address] [place] [address] Phone [phone] Care Team Providers Care Tank Pumper Name Role Phone Pedro Pablo Gaspar MD Primary Care Provider [phone] Reason for Visit * Reason Onset Date Comments Advice 05/18/2024 Critical labs Encounter Details Date Type Department Care Team (Late st Contact Info) Description 05/18/2024 Telephone Infectious Disease, [place] [address] [place], [place] [phone] Yefri Pham, DO [address] [place], [place] [phone] Advice (Critical labs) Allergies No known active allergiesdocumented as of this encounter (statuses as of 05/18/2024) Medications Medication Sig Dispensed Refills Start Date End Date Status ONETOUCH VERIO STRP 03/22/2020 Activ e Lancets (ONETOUCH DELICA PLUS [id number]) [facility] [place] 03/22/2020 Active FreeStyle Yulissa 2 [place] DeviceIndications:T ype 2 diabetes mellitus with hemoglobin A1c goal of less than 7.0% ([facility]) Use as directed. 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 Gaspar pt will need to go to ER Pt aware and agreeable * Telephone Encounter - Suzie Mejia LPN - 05/18/2024 4:34 PM EDT Melita from [facility] called on labs they received today . Creatine was 3.01 and the potassium level was 5.9. Please advise. documented in this encounter Plan of Treatment Upcoming Encounters Date Type Department Care Team (Late st Contact Info) Description 05/30/2024 10:10 AM EDT Office Visit Pharmacy, [address] [place] [address] [place] [address] 06/17/2024 12:30 PM EDT Office Visit Gastroenterology [address] [place] [address] Ayala Pacheco CRNP [address] [place] [address] Health Maintenance Due Date Last Done Comments DISCUSS TOBACCO CESSATION (REFER TO SMARTSET #9771) 1970 HIV Screening 1985 Hepatitis C Screening [...] Monitoring 11/10/2024 11/10/2023 CKD PHOS USE SMARTSET 54736 01/14/2025 01/15/2024, 1 12/12/2022 Albumin/Creatinine Ratio 01/26/2025 024, 08/29/2022, 12/14/2020 CKD HGB USE SMARTSET 58004 05/10/202505/10, 05/10/2024, 03/19/2024, Additional history exists DTaP,Tdap,and [...] filedocumented as of this encounter Care Teams Tank Pumper Relationship Specialty Start Date End Date Pedro Pablo Gaspar MD [address] [facility] [place] [address] PCP - General Family Medicine 10/22/20 documented as of this encounter
--- OUTSIDE RECORDS SUMMARY | 2024-05-27 11:18 | External Medical Summary | Summary of Care ---
Author Name Unknown Organization [facility] Address [address] [place] [address] Phone [phone] Care Team Providers Care Tire Finisher Name Role Phone Pedro Pablo Gaspar MD Primary Care Provider [phone] Reason for Visit * Reason Onset Date Comments Advice 05/18/2024 Critical labs Encounter Details Date Type Department Care Team (Late st Contact Info) Description 05/18/2024 Telephone Infectious Disease, [place] [address] [place], [place] [phone] Yefri Pham, DO [address] [place], [place] [phone] Advice (Critical labs) Allergies No known active allergiesdocumented as of this encounter (statuses as of 05/18/2024) Medications Medication Sig Dispensed Refills Start Date End Date Status ONETOUCH VERIO STRP 03/22/2020 Activ e Lancets (ONETOUCH DELICA PLUS [id number]) [facility] 03/22/2020 Active FreeStyle Yulissa 2 [place] DeviceIndications:T ype 2 diabetes mellitus with hemoglobin A1c goal of less than 7.0% ([facility]) Use as directed. 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 Creatine was 3.01 and the potassium level was 5.9. Please advise. documented in this encounter Plan of Treatment Upcoming Encounters Date Type Department Care Team (Late st Contact Info) Description 05/30/2024 10:10 AM EDT Office Visit Pharmacy, [address] [place] [address] [place] [address] 06/17/2024 12:30 PM EDT Office Visit Gastroenterology [address] [place] [address] Ayala Pacheco CRNP [address] [place] [address] Health Maintenance Due Date Last Done Comments DISCUSS TOBACCO CESSATION (REFER TO SMARTSET #0833) 1970 HIV Screening 1985 Hepatitis C Screening [...] Monitoring 11/10/2024 11/10/2023 CKD PHOS USE SMARTSET 69491 01/14/2025 01/15/2024, 1 12/12/2022 Albumin/Creatinine Ratio 01/26/2025 024, 08/29/2022, 12/14/2020 CKD HGB USE SMARTSET 83336 05/10/202505/10, 05/10/2024, 03/19/2024, Additional history exists DTaP,Tdap,and [...] filedocumented as of this encounter Care Teams Tire Finisher Relationship Specialty Start Date End Date Pedro Pablo Gaspar MD [address] [place] [address] PCP - General Family Medicine 10/22/20 documented as of this encounter
--- NOTE | 2024-05-27 11:31 | Infectious Disease Consult ---
Date of Service May 27, 2024 Telehealth Information I performed this visit using a real-time telehealth connection between my location and the patients location ([facility]). After connecting through interactive tele-video, patient was identified by name and date of and/or wristband check.Patient (or authorized healthcare career representative) was informed that this was a telemedicine visit and it was being conducted confidentially over secure lines. My office door was closed and no one else was present in the room with me.Patient (or authorized healthcare career representative) provided consent to proceed with the visit, expressed an understanding of privacy and security of the telemedicine visit, and gave permission to have a hospital career representative in the room in order to assist with the visit and to conduct portions of the visit, as needed. I informed the patient (or authorized healthcare career representative) that I reviewed their record and presented the opportunity for them to ask any questions regarding the visit today. The patient agreed to participate. Assessment & Plan (1) BRUNA (acute kidney injury): Plan: Recommend nephrology evaluation (2) Staphylococcus aureus bacteremia: Plan: Patient received 2 weeks instead of 4 of ancef as he developed ATN Plan Patient admitted for worsening renal failure recommend following up his blood cultures and consider a nephrology consult History of Present Illness History of Present Illness 53 y/o M PMHx chronic systolic heart failure, CAD s/p RI w/ stenting in 2013, HTN, hyperlipidemia, ischemic cardiomyopathy, DM2, GERD, CKD3, prior PE, prior CVA w/ mild cognitive disability, and hx alcohol abuse who presented to the ED due to referral by PCP. He was hospitalized from 04/25 to 04/29 secondary to staph bacteremia, sepsis, aspiration PNA and BRUNA. Patient was prescribed 4 weeks of IV cefazolin through 05/25 however this was discontinued on 05/11 due to worsening renal function. PCP discussed with infectious disease who felt that a s long as he had a 2-week course of antibiotics that should cover bacteremia, although 4-week more ideal.He was admitted on this occasion with abnormal labs with Cr of 3 Allergies Allergy/AdvReac Type Severity Reaction Status Date / Time No Known Allergies Allergy Verified 04/25/24 16:14 Home Medications Medication Instructions Recorded Confirmed Type clopidogrel 75 mg tablet (Plavix) 75 mg PO QAM 06/05/21 05/26/24 History atorvastatin 20 mg tablet 20 mg PO QAM 09/08/23 05/26/24 History spironolactone 25 mg tablet 25 mg PO QAM #30 tabs 09/23/23 05/26/24 Rx apixaban 5 mg tablet (Eliquis) 5 mg PO Q12H 10/08/23 05/26/24 History metoprolol succinate 50 mg 25 mg (1/2 x 50 mg) PO BID #30 tabs 10/12/23 05/26/24 Rx tablet,extended release 24 hr ropinirole 0.25 mg tablet 0.25 mg PO HS #30 tabs 10/12/23 05/26/24 Rx flash glucose sensor (FreeStyle #1 ea 01/01/24 05/26/24 History Yulissa 2 Sensor kit) sertraline 25 mg tablet 25 mg PO QAM 01/01/24 05/26/24 History mirtazapine 30 mg tablet 30 mg PO HS 01/11/24 05/26/24 History empagliflozin 10 mg tablet 10 mg PO QAM 01/19/24 05/26/24 History (Jardiance) ondansetron HCl 4 mg tablet 4 mg PO Q8 PRN Nausea 04/25/24 05/26/24 History oxycodone 5 mg tablet 5 mg PO Q8 PRN Severe Pain (Scale 04/25/24 05/26/24 History Score 7-10) pantoprazole 40 mg tablet,delayed 40 mg PO QAM 04/25/24 05/26/24 History release Saccharomyces boulardii 250 mg 250 mg PO DAILY 6 weeks #42 caps 04/29/24 05/26/24 Rx capsule (Florastor) oxybutynin chloride 5 mg tablet 5 mg PO BID 30 days #60 tabs 04/29/24 05/26/24 Rx buspirone 7.5 mg tablet 7.5 mg PO BID 05/26/24 05/26/24 History lisinopril 10 mg tablet 20 mg PO DAILY 05/26/24 05/26/24 History metformin 500 mg tablet,extended 1,000 mg PO DAILY 05/26/24 05/26/24 History release 24 hr Patient History Medical History Rushing catheter in place Enlarged prostate Hx pulmonary embolism 09/08/23- bilateral PEs History of suicidal ideation (~2020) voluntary admission [facility] Hx of congestive heart failure (~10/2023) [facility] Hx of pancreatitis History of cerebrovascular accident (~2019) x5 "multiple mini strokes" [facility], no current neurologist, left arm "almost useless" and left side "doesn't work quite right" Most recent CVA 2020 per records Surgical History Hx of cardiac catheterization (~09/2023) [facility], no stents S/P drug eluting coronary stent placement (~2013) [facility], currently follows at [facility] Family History Mother , age 68 from metastatic lung cancer Lung cancer Father No problems noted. Social History Smoking Status: Current every day smoker Tobacco Type: Cigarettes Cigarettes Per Day: <1 PPD, advised; Second Hand Exposure: No; Do You Dip or Chew Tobacco: No; Hx Alcohol Use: Yes Alcohol type: beer Hx Substance Use: No Preferred Language: Montserratian Communication Ability: Effective Alodize Machine Operator Required: No Beliefs That Will Affect Care: None marital status: Single Current Living Situation: Alone Current Living Situation Comment: friend current occupational status: previously employed current occupation: [employer] employee Other Information That Helps Us Care for You: No other: 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[employer], 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 Feels Safe at Home: Yes Safety Concerns: Feels Safe At This Time Assistive Devices: None Review of Systems Stable no distress wants to continue eating lunch Physical Exam Awake alert oriented no respiratory distress Results & Data Vital Signs (Past 12 Hours) Vital Signs Temp Pulse Pulse Pulse Resp BP BP 05/27/24 11:25 36.8 C 67 18 153/76 H 05/27/24 07:27 51 L 05/27/24 07:25 36.7 C 50 L 18 113/75 05/27/24 02:40 36.7 C 57 L 18 100/61 Pulse Ox O2 Del Method 05/27/24 11:25 98 Room Air 05/27/24 07:27 05/27/24 07:25 98 Room Air 05/27/24 02:40 98 Room Air Laboratory Results His blood cultures are pending Diagnostic Findings FINDINGS: Cardiac mediastinal and hilar silhouettes are within normal limits. Mild chronic interstitial coarsening of the lung bases. No pneumothorax, pleural effusion or overt pulmonary edema. IMPRESSION: No acute process.
--- NOTE | 2024-05-27 12:25 | Urology Consultation ---
<Statement entered by Taiwo Angel MD - 05/27/24 13:27> 53 year old male with indwelling giles catheter for urinary retention. Continue with catheter for now, can exchange if needed. He can use tylenol, pyridium, topical lidocaine for pain with catheter. Can discuss potential for an outlet procedure as an outpatient. Date of Consultation May 27, 2024 Assessment & Plan (1) Penile pain: (2) BRUNA (acute kidney injury): (3) BPH w/o urinary obs/LUTS: (4) Urinary retention: Plan 53yo/M with a hx of BPH and recurrent urinary retention managed with Giles catheter admitted with BRUNA and suspected UTI. - Afebrile and hemodynamically stable at present - Labs show leukocytosis 12.28, hemoglobin 9.5, creatinine downtrending 2.872.13 today. - Urine and blood cultures pending. Ancef given in the ED. ID consulted. - Giles intact and draining appropriately- urine is clear yellow - Renal ultrasound reviewed - No hydronephrosis - No acute intervention warranted - Maintain Giles catheter - Pt reports he is due for catheter exchange, order placed to exchange catheter. - Urethral pain likely secondary to chronic catheter. Recommend Pyridium, Oxybutynin, Topical Lidocaine as needed for pain. - Continue supportive care and pain management. - Continue to trend labs. - Follow cultures and tailor antibiotics per culture results/ID recommendations. - Plan for outpatient follow-up as scheduled with our service. - Urology will sign-off. Please call with any questions/concerns. History of Present Illness Attending Physician: Stephen Morgan DO History of Present Illness 53 year old male with a PMHx including chronic systolic heart failure, CAD s/p [place] w/ stenting in 2013, HTN, hyperlipidemia, ischemic cardiomyopathy, DM2, GERD, CKD3, prior PE, prior CVA w/ mild cognitive disability, and hx alcohol abuse who presented to the ED due to abnormal outpatient labs and urethral pain. In the ED, he was afebrile and hemodynamically stable. Labs showing a leukocytosis of 12.36 and creatinine 2.87. Urinalysis with 3+ blood, negative nitrite, 2+ LE, negative bacteria. Renal ultrasound shows no hydronephrosis, Giles catheter within the bladder, and benign appearing renal cysts. Patient admitted to medicine service. Urine and blood cultures collected and pending. ID consulted. Of note- Recent hospitalization 04/25-04/29 secondary to staph bacteremia, sepsis, aspiration PNA and BRUNA. Prescribed 4 weeks of IV cefazolin through 05/25 however this was discontinued on 05/11 due to increasing renal function. Pt seen at bedside today. Awake, resting in bed on arrival. No acute distress. Giles intact and draining appropriately. He reports urethral pain. Denies hematuria. Denies f/c/n/v. Hx of BPH and urinary retention. Urinary retention has been managed with Giles catheter. Previously seen in our office by Dr. Angel. Patient was scheduled for TURP procedure but he canceled the procedure. Allergies Allergy/AdvReac Type Severity Reaction Status Date / Time No Known Allergies Allergy Verified 04/25/24 16:14 Home Medications Medication Instructions Recorded Confirmed Type clopidogrel 75 mg tablet (Plavix) 75 mg PO QAM 06/05/21 05/26/24 History atorvastatin 20 mg tablet 20 mg PO QAM 09/08/23 05/26/24 History spironolactone 25 mg tablet 25 mg PO QAM #30 tabs 09/23/23 05/26/24 Rx apixaban 5 mg tablet (Eliquis) 5 mg PO Q12H 10/08/23 05/26/24 History metoprolol succinate 50 mg 25 mg (1/2 x 50 mg) PO BID #30 tabs 10/12/23 05/26/24 Rx tablet,extended release 24 hr ropinirole 0.25 mg tablet 0.25 mg PO HS #30 tabs 10/12/23 05/26/24 Rx flash glucose sensor (FreeStyle #1 ea 01/01/24 05/26/24 History Yulissa 2 Sensor kit) sertraline 25 mg tablet 25 mg PO QAM 01/01/24 05/26/24 History mirtazapine 30 mg tablet 30 mg PO HS 01/11/24 05/26/24 History empagliflozin 10 mg tablet 10 mg PO QAM 01/19/24 05/26/24 History (Jardiance) ondansetron HCl 4 mg tablet 4 mg PO Q8 PRN Nausea 04/25/24 05/26/24 History oxycodone 5 mg tablet 5 mg PO Q8 PRN Severe Pain (Scale 04/25/24 05/26/24 History Score 7-10) pantoprazole 40 mg tablet,delayed 40 mg PO QAM 04/25/24 05/26/24 History release Saccharomyces boulardii 250 mg 250 mg PO DAILY 6 weeks #42 caps 04/29/24 05/26/24 Rx capsule (Florastor) oxybutynin chloride 5 mg tablet 5 mg PO BID 30 days #60 tabs 04/29/24 05/26/24 Rx buspirone 7.5 mg tablet 7.5 mg PO BID 05/26/24 05/26/24 History lisinopril 10 mg tablet 20 mg PO DAILY 05/26/24 05/26/24 History metformin 500 mg tablet,extended 1,000 mg PO DAILY 05/26/24 05/26/24 History release 24 hr Patient History Medical History Giles catheter in place Enlarged prostate Hx pulmonary embolism 09/08/23- bilateral PEs History of suicidal ideation (~2020) voluntary admission [facility] Hx of congestive heart failure (~10/2023) [facility] Hx of pancreatitis History of cerebrovascular accident (~2019) x5 "multiple mini strokes" [facility], no current neurologist, left arm "almost useless" and left side "doesn't work quite right" Most recent CVA 2020 per records Surgical History Hx of cardiac catheterization (~09/2023) [facility], no stents S/P drug eluting coronary stent placement (~2013) [facility], currently follows at [facility] Cardio Family History Mother , age 68 from metastatic lung cancer Lung cancer Father No problems noted. Social History Smoking Status: Current every day smoker Tobacco Type: Cigarettes Cigarettes Per Day: <1 PPD, advised; Second Hand Exposure: No; Do You Dip or Chew Tobacco: No; Hx Alcohol Use: Yes Alcohol type: beer Hx Substance Use: No Preferred Language: Central African Communication Ability: Effective Architect Marine Required: No Beliefs That Will Affect Care: None marital status: Single Current Living Situation: Alone Current Living Situation Comment: friend current occupational status: previously employed current occupation: [email or web address] employee Other Information That Helps Us Care for You: No other: 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[employer], 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 Feels Safe at Home: Yes Safety Concerns: Feels Safe At This Time Assistive Devices: None Review of Systems Review of Systems: All systems reviewed & are unremarkable except as noted in HPI & below Physical Exam Constitutional: well developed and well nourished; no acute distress Neck: normal visual inspection Respiratory: no respiratory distress and no labored breathing Musculoskeletal: Head/Neck/Chest: normocephalic Skin: No visible rashes or lesions to exposed skin areas Neurologic: awake Psychiatric: A+Ox3, euthymic affect Genitourinary: Giles intact and draining clear yellow urine Results & Data Vital Signs (Past 12 Hours) Vital Signs Temp Pulse Pulse Pulse Resp BP BP 05/27/24 11:25 36.8 C 67 18 153/76 H 05/27/24 07:27 51 L 05/27/24 07:25 36.7 C 50 L 18 113/75 05/27/24 02:40 36.7 C 57 L 18 100/61 Pulse Ox O2 Del Method 05/27/24 11:25 98 Room Air 05/27/24 07:27 05/27/24 07:25 98 Room Air 05/27/24 02:40 98 Room Air PG Care Time/CCT Total # of Minutes Spent Total Time Spent with Patient: Total time spent is greater than 50% in coordination of care (as documented) at patient's floor/unit and/or counseling patient: Coding Level of Care Code 34036 IN/OBS CONSULT LVL 3,45M Diagnoses Penile pain N48.89 BRUNA (acute kidney injury) N17.9 BPH w/o urinary obs/LUTS N40.0 Urinary retention R33.9
--- NOTE | 2024-05-27 12:38 | Nephrology Consultation ---
Date of Consultation May 27, 2024 Assessment & Plan (1) BRUNA (acute kidney injury): acute kidney injury with a fluctuating creatinine for the last 2 months. he had Normal Creat back in March 2024. He did have acute kidney injury with a peak creatinine of 3.5 in February 2024 in the setting of cholangitis/pneumonia but by discharge he had a creatinine of 1.1 as of Mar 18 2024. he again had acute kidney injury during his hospital admission in April in the setting of staph bacteremia with a peak creatinine of 2.6 but by discharge was 1.9. 9 days ago as an outpatient creatinine of 3 and is now trending down with IV fluid. review of his outpatient labs shows intermittent extreme hyperglycemia with glucose more than 500. his p.o. intake of food and liquid is not reliable given his psychosocial cognitive situation. for the time being I would like to stop Aldactone Jardiance lisinopril as well as metformin. continue normal saline at 80 mL/hour. encouraging to see that his cardiac status is better now than before given frequently fluctuating kidney function I would make an argument that is not a good candidate to continue Jardiance. Daily labs I and O charting. given improving kidney function with use of IV fluid I do not feel we need to do more extensive workup for evaluation of glomerular nephritis especially postinfectious GN. obstructive uropathy has already been ruled out. I will continue to follow. (2) Urinary retention: Continue Giles. reviewed Urology note and issue about penile pain. Plan case complexity high involving multiple recent hospital admissions which was reviewed in detail. reviewed Urology note as well as Cardiology note from multiple recent admissions. total time spent 65 minutes. History of Present Illness Reason for Consultation: BRUNA Attending Physician: Stephen Morgan DO History of Present Illness 53/M admitted yesterday for abnormal labs done as outpatient. he has h/o chronic systolic heart failure ( however ECHO today normal LVEF) , CAD s/p [place] w/ stenting in 2013, HTN, hyperlipidemia, ischemic cardiomyopathy, DM2, GERD, CKD3, prior PE, prior CVA w/ mild cognitive disability, and h/o alcohol abuse who presented to the ED with increased urethral/Penile pain that he relates to his Giles catheter. He was recently hospitalized to 04/29 secondary to sepsis in setting of staph bacteremia and aspiration pneumonia. He was started on IV Zosyn and then transitioned to cefazolin and Levaquin at discharge. He was seen and evaluated by infectious disease who recommended IV antibiotics for 4 weeks till 05/25/2024 due to concern for staph bacteremia. he still has PICC line but IV cefazolin was stopped on May 11 because of concern with kidney function. He completed oral Levaquin for pneumonia. His hospital course was complicated by BRUNA. Peak creatinine was 2.61. He was treated with IV fluids and nephrotoxic agents were held including lisinopril, metformin and Aldactone. His cr improved to 1.9 at discharge. few days after discharge on May 04 creatinine was even better at 1.6 but then got worse as an outpatient with creatinine of 3 as of May 18, 2024. on admission yesterday creatinine was 2.9 but this morning is better at 2.1 after IV fluids overnight. He reports he has been feeling okay. He continues to have pain in his penis and urethra from prostate and giles cath. already seen by Urology earlier today. he reports normal amount of urine. denies nausea vomiting diarrhea abdominal pain chest pain shortness of breath or for that matter any symptoms other than the penile pain. still smoking every day but claims has not drank alcohol for long time. review of systems----- positive for penile pain at the Giles catheter site. Otherwise 12 systems reviewed and negative. physical examination middle aged white male who looks older than stated age. Awake alert oriented x3 no respiratory distress normal speech and conversation. mucous membrane moist neck is supple no JVD chest bilateral clear to auscultation CVS S1 and S2 regular no murmur heard abdomen is soft nontender extremities shows no edema Skin no rashes. Allergies Allergy/AdvReac Type Severity Reaction Status Date / Time No Known Allergies Allergy Verified 04/25/24 16:14 Home Medications Medication Instructions Recorded Confirmed Type clopidogrel 75 mg tablet (Plavix) 75 mg PO QAM 06/05/21 05/26/24 History atorvastatin 20 mg tablet 20 mg PO QAM 09/08/23 05/26/24 History spironolactone 25 mg tablet 25 mg PO QAM #30 tabs 09/23/23 05/26/24 Rx apixaban 5 mg tablet (Eliquis) 5 mg PO Q12H 10/08/23 05/26/24 History metoprolol succinate 50 mg 25 mg (1/2 x 50 mg) PO BID #30 tabs 10/12/23 05/26/24 Rx tablet,extended release 24 hr ropinirole 0.25 mg tablet 0.25 mg PO HS #30 tabs 10/12/23 05/26/24 Rx flash glucose sensor (FreeStyle #1 ea 01/01/24 05/26/24 History Yulissa 2 Sensor kit) sertraline 25 mg tablet 25 mg PO QAM 01/01/24 05/26/24 History mirtazapine 30 mg tablet 30 mg PO HS 01/11/24 05/26/24 History empagliflozin 10 mg tablet 10 mg PO QAM 01/19/24 05/26/24 History (Jardiance) ondansetron HCl 4 mg tablet 4 mg PO Q8 PRN Nausea 04/25/24 05/26/24 History oxycodone 5 mg tablet 5 mg PO Q8 PRN Severe Pain (Scale 04/25/24 05/26/24 History Score 7-10) pantoprazole 40 mg tablet,delayed 40 mg PO QAM 04/25/24 05/26/24 History release Saccharomyces boulardii 250 mg 250 mg PO DAILY 6 weeks #42 caps 04/29/24 05/26/24 Rx capsule (Florastor) oxybutynin chloride 5 mg tablet 5 mg PO BID 30 days #60 tabs 04/29/24 05/26/24 Rx buspirone 7.5 mg tablet 7.5 mg PO BID 05/26/24 05/26/24 History lisinopril 10 mg tablet 20 mg PO DAILY 05/26/24 05/26/24 History metformin 500 mg tablet,extended 1,000 mg PO DAILY 05/26/24 05/26/24 History release 24 hr Patient History Medical History Giles catheter in place Enlarged prostate Hx pulmonary embolism 09/08/23- bilateral PEs History of suicidal ideation (~2020) voluntary admission [facility] Hx of congestive heart failure (~10/2023) [facility] Hx of pancreatitis History of cerebrovascular accident (~2019) x5 "multiple mini strokes" [facility], no current neurologist, left arm "almost useless" and left side "doesn't work quite right" Most recent CVA 2020 per records Surgical History Hx of cardiac catheterization (~09/2023) [facility], no stents S/P drug eluting coronary stent placement (~2013) [facility], currently follows at [facility] Cardio Family History Mother , age 68 from metastatic lung cancer Lung cancer Father No problems noted. 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[employer], 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 Feels Safe at Home: Yes Assistive Devices: None Results & Data Vital Signs (Past 12 Hours) Vital Signs Temp Pulse Pulse Pulse Resp BP BP 05/27/24 11:25 36.8 C 67 18 153/76 H 05/27/24 07:27 51 L 05/27/24 07:25 36.7 C 50 L 18 113/75 05/27/24 02:40 36.7 C 57 L 18 100/61 Pulse Ox O2 Del Method 05/27/24 11:25 98 Room Air 05/27/24 07:27 05/27/24 07:25 98 Room Air 05/27/24 02:40 98 Room Air Laboratory Results CBC renal panel UA reviewed both outpatient with [facility] as well as hospital workup done Diagnostic Findings renal ultrasound did not show hydronephrosis and has benign-appearing renal cyst chest x-ray without CHF.
--- NOTE | 2024-05-27 14:37 | Hospitalist Progress Note ---
Date of Service May 27, 2024 Assessment & Plan (1) Acute kidney injury superimposed on CKD: (2) Anemia: (3) DM type 2 (diabetes mellitus, type 2): (4) BPH loc w urin obs/LUTS: (5) Rushing catheter in place: Plan Patient with acute on chronic kidney injury most likely due to recent infections and antibiotics. Reviewed nephrology recommendations, gentle hydration Patient's ejection fraction has significantly improved, anticipate patient may tolerate a bit more fluid resuscitation to see if his renal function improves Continue Rushing catheter, patient has obstructive uropathy from BPH. Planning outpatient procedure. Patient has significant irritation from Rushing catheter, unfortunately Pyridium is contraindicated with his renal function. Can try some topical lidocaine as recommended by urology Reviewed infectious disease recommendations, no additional antibiotics required. Continue to monitor off antibiotics. Avoid nephrotoxins Monitor renal function, if continues to improve potentially discharge as soon as tomorrow Admission and Anticipated Discharge Date Admission Date: May 26, 2024 Subjective Patient has no significant symptoms. Came to the hospital purely because he was told he had abnormal labs Physical Exam Physical Exam: Constitutional: Alert HEENT: Mucous membranes moist. Lungs: Clear to auscultation, decreased, no wheezes rales or rhonchi CV: S1-S2, regular Abdomen: Soft, nontender, nondistended Extremities: No significant edema Neuro: No focal deficits Psych: Cooperative, normal mood Results & Data Results & Data Vital Signs (Past 12 Hours) Vital Signs Temp Pulse Pulse Pulse Resp BP BP 05/27/24 11:25 36.8 C 67 18 153/76 H 05/27/24 07:27 51 L 05/27/24 07:25 36.7 C 50 L 18 113/75 05/27/24 02:40 36.7 C 57 L 18 100/61 Pulse Ox O2 Del Method 05/27/24 11:25 98 Room Air 05/27/24 07:27 05/27/24 07:25 98 Room Air 05/27/24 02:40 98 Room Air Diagnostic Findings Reviewed imaging, laboratory and diagnostic studies. Pertinent findings as below. Echocardiogram report reviewed, ejection fraction improved to 50%, no evidence of vegetation Hemoglobin 9.5 Creatinine 2.13 (2) Anemia Anemia type: unspecified type Qualified Code(s): D64.9 - Anemia, unspecified
[2024-05-27] MEDS ORDERED: LIDOCAINE 2% JELLY 5 ML TUBE EXT PRN (15:14)
[2024-05-27] MEDS: HYDROmorphone HCL 2 MG TAB PO PRN (15:56)
[2024-05-28 06:30] LABS: Hematocrit (blood only) 30.3 % (42.0-52.0); Mean Corpuscular Hgb Conc 29.7 g/dL (32.0-36.0); Mean Corpuscular Volume 70.8 fL (80.0-100.0); Mean Platelet Volume 10.1 fL (9.4-12.4); Platelet Count 286 K/uL (130-400); RDW Coefficient of Variation 17.2 % (11.5-14.5); RDW Standard Deviation 43.8 fL (36.4-46.3); Red Blood Count 4.28 M/uL (4.70-6.10); White Blood Count 11.46 K/ul (4.8-10.8)
[2024-05-28 06:43] LABS: BUN Creatinine Ratio 10.1 (10-20); Calcium 8.9 mg/dl (8.6-10.3); Creatinine Clr Calc Pharmacy 35.4 ml/min; Est GFR (African American) 38.6 ml/min; Est GFR (Non-African American) 33.3 ml/min; Magnesium 1.6 mg/dl (1.7-2.4)
--- NOTE | 2024-05-28 09:01 | Nephrology Progress Note ---
Date of Service May 28, 2024 Assessment & Plan Admission and Anticipated Discharge Date Admission Date: May 26, 2024 Subjective Assessment & Plan (1) BRUNA (acute kidney injury): acute kidney injury with a fluctuating creatinine for the last 2 months. he had Normal Creat back in March 2024. He did have acute kidney injury with a peak creatinine of 3.5 in February 2024 in the setting of cholangitis/pneumonia but by discharge he had a creatinine of 1.1 as of Mar 18 2024. he again had acute kidney injury during his hospital admission in April in the setting of staph bacteremia with a peak creatinine of 2.6 but by discharge was 1.9. 9 days ago as an outpatient creatinine of 3 and is now trending down with IV fluid. review of his outpatient labs shows intermittent extreme hyperglycemia with glucose more than 500. his p.o. intake of food and liquid is not reliable given his psychosocial cognitive situation. for the time being I would like to stop Aldactone Jardiance lisinopril as well as metformin. also stop Jardiance given frequently fluctuating kidney function. encouraging to see that his cardiac status is better now than before Says he is leaving home now ! he can with outpt labs and f/u. nephrology f/u within 1-2 weeks I dont think the renal function is changing because of Abx. if he needs it better to finish the course . (2) Urinary retention: Continue Rushing. reviewed Urology note and issue about penile pain. S--he feels fine. Says he is leaving home now ! physical examination middle aged white male who looks older than stated age. Awake alert oriented x3 no respiratory distress normal speech and conversation. mucous membrane moist neck is supple no JVD chest bilateral clear to auscultation CVS S1 and S2 regular no murmur heard abdomen is soft nontender extremities shows no edema Skin no rashes. Results & Data Vital Signs (Past 12 Hours) Vital Signs Temp Pulse Resp BP Pulse Ox O2 Del Method 05/28/24 08:25 36.6 C 76 20 103/61 94 Room Air 05/27/24 22:26 Room Air 05/27/24 21:06 36.4 C L 62 18 164/85 H 99 Room Air
[2024-05-28] MEDS: MAGNESIUM SULFATE / D5W 1 GM/100 ML BAG IV SCH (09:54)
--- NOTE | 2024-05-28 10:00 | Discharge Summary ---
Discharge Summary Date of Service May 28, 2024 Principal Dx & Hospital Course #1 = Principal Diagnosis (1) Acute kidney injury superimposed on CKD: (2) Anemia: (3) DM type 2 (diabetes mellitus, type 2): (4) BPH loc w urin obs/LUTS: (5) Giles catheter in place: Plan Patient was sent to the emergency room due to abnormal outpatient labs. Patient was admitted to the hospital. Given some IV hydration. Nephrotoxins were held. Nephrology consultation was obtained. They agreed with the plan of care and continued recommendations to hold nephrotoxins. Follow-up laboratory studies showed some improvement in his kidney function. Suspect the patient has a component now of chronic renal disease most likely secondary to his recent other medical issues including the severe sepsis and bacteremia. He was also evaluated by infectious disease. Cultures during this hospitalization were unremarkable. They did not recommend any additional antibiotics and essentially is completed the full treatment for his previous bacteremia. Echocardiogram was performed. Showed improvement in his cardiomyopathy. Now has a normal ejection fraction. His electrolytes were replaced as needed. Patient's hemoglobin was monitored. Patient is chronic anemia most likely due to his renal dysfunction. There is no evidence of acute blood loss. He did not require transfusion. On the day of discharge her vital signs are stable. His glucoses were all less than 200. At this point we will continue to monitor his glucose off of any medications. Would not recommend restarting the metformin. Also not necessary recommend restarting Jardiance due to his kidney dysfunction at this time. Was also seen by urology due to chronic indwelling Giles catheter. They recommended continuing Giles catheter and outpatient follow-up. Patient was quite eager to get home. His nephrology evaluation of the day of discharge and labs stabilized. Could be discharged with outpatient follow-up. Notes For Next Care Provider May need to consider some alternate form of treatment for his diabetes Follow-up with nephrology Follow-up with urology Follow renal function intermittently as directed by nephrology Medication Changes From Visit Aldactone, Jardiance, metformin, lisinopril discontinued due to renal dysfunction Admission HPI Per Admitting Provider This is a 53 y/o male with chronic systolic heart failure, CAD s/p [place] w/ stenting in 2013, HTN, hyperlipidemia, ischemic cardiomyopathy, DM2, GERD, CKD3, prior PE, prior CVA w/ mild cognitive disability, and hx alcohol abuse who presented to the ED today with increased urethral pain that he relates to his Giles catheter. Of significance patient was recently hospitalized to 04/29 secondary to sepsis in setting of staph bacteremia and aspiration pneumonia. He was started on IV Zosyn and 1 out of 4 blood cultures were growing Staph aureus. He was then transitioned to cefazolin and Levaquin at discharge. He was seen and evaluated by infectious disease who recommended IV antibiotics for 4 weeks through 05/25/2024 due to concern for staph bacteremia. He completed oral Levaquin for pneumonia. His hospital course was complicated by BRUNA. Peak creatinine was 2.61. He was treated with IV fluids and nephrotoxic agents were held including lisinopril, metformin and Aldactone. His cr improved to 1.9 at discharge. At discharge she was informed to hold all 3 of these. His hospital course was further complicated by an episode of chest pain that was evaluated by cardiology and felt to be noncardiac, hypomagnesemia and chronic urethral/penile pain in setting of chronic Giles catheter. His Giles ca theter was exchanged on admission on 04/25. He was discharged to home and had PCP follow-up as well as weekly labs. Labs revealed increase in his creatinine. After 2 weeks of antibiotic therapy he was placed on hold due to the elevation in creatinine. Outpatient PCP was in contact with infectious disease regarding this decision. Repeat labs again revealed elevated creatinine and therefore he was referred to ED for further evaluation. He did not seek emergency treatment soon as advised, but home health nurse encouraged him to come in today to be evaluated. He reports he has been feeling okay. He continues to have pain in his penis and urethra from prostate and giles cath. He reports he is unsure how much he has been filling up his catheter bag, but he has been emptying it at least once a day. He denies any vomiting or diarrhea. He reports a decent appetite and has been drinking fluids. He denies f/c/s, chest pain, sob, n/v/d, abd pain, hematuria. Only medication changes since d/c was his psychiatrist switched him from ativan to buspar. He reports his medications come in pill packs so he does not think he held his medications as he would not know what they are. In ED patient remained hemodynamically stable. Lab work remarkable for BUN/creatinine of 30 and 2.87, mild leukocytosis at 12.36 K, H&H stable at 9.9 and 32.8. His urinalysis is consistent for positive leukocyte esterase, WBC, glucose and trace protein. He received 1 L of IV fluid in ED. He reports he still smokes cigarettes but reports minimal alcohol use. Admission Exam Per Admitting Provider See H&P Discharge Exam Constitutional: Alert HEENT: Mucous membranes moist. Lungs: Clear to auscultation, decreased, no wheezes rales or rhonchi CV: S1-S2, regular Abdomen: Soft, nontender, nondistended : Giles catheter in place Extremities: No significant edema Neuro: No focal deficits Psych: Cooperative, normal mood Updated Medication List Medication Instructions Recorded Confirmed Type clopidogrel 75 mg tablet (Plavix) 75 mg PO QAM 06/05/21 05/26/24 History atorvastatin 20 mg tablet 20 mg PO QAM 09/08/23 05/26/24 History spironolactone 25 mg tablet 25 mg PO QAM #30 tabs 09/23/23 05/26/24 Rx apixaban 5 mg tablet (Eliquis) 5 mg PO Q12H 10/08/23 05/26/24 History metoprolol succinate 50 mg 25 mg (1/2 x 50 mg) PO BID #30 tabs 10/12/23 05/26/24 Rx tablet,extended release 24 hr ropinirole 0.25 mg tablet 0.25 mg PO HS #30 tabs 10/12/23 05/26/24 Rx flash glucose sensor (FreeStyle #1 ea 01/01/24 05/26/24 History Yulissa 2 Sensor kit) sertraline 25 mg tablet 25 mg PO QAM 01/01/24 05/26/24 History mirtazapine 30 mg tablet 30 mg PO HS 01/11/24 05/26/24 History empagliflozin 10 mg tablet 10 mg PO QAM 01/19/24 05/26/24 History (Jardiance) ondansetron HCl 4 mg tablet 4 mg PO Q8 PRN Nausea 04/25/24 05/26/24 History oxycodone 5 mg tablet 5 mg PO Q8 PRN Severe Pain (Scale 04/25/24 05/26/24 History Score 7-10) pantoprazole 40 mg tablet,delayed 40 mg PO QAM 04/25/24 05/26/24 History release Saccharomyces boulardii 250 mg 250 mg PO DAILY 6 weeks #42 caps 04/29/24 05/26/24 Rx capsule (Florastor) oxybutynin chloride 5 mg tablet 5 mg PO BID 30 days #60 tabs 04/29/24 05/26/24 Rx buspirone 7.5 mg tablet 7.5 mg PO BID 05/26/24 05/26/24 History lisinopril 10 mg tablet 20 mg PO DAILY 05/26/24 05/26/24 History metformin 500 mg tablet,extended 1,000 mg PO DAILY 05/26/24 05/26/24 History release 24 hr Hospital Stay Data Consultations 05/26/24 17:09 ED Decision to Admit Stat 05/26/24 17:25 Consult Infectious Diseases Routine 05/26/24 17:26 Consult Nephrology Routine 05/26/24 17:41 Consult Urology Routine Diagnostic Imagining Performed 05/26/24 17:38 US Renal Bladder [US renal/blad retro comp] Routine Reviewed imaging, laboratory and diagnostic studies. Pertinent findings as be low. Hemoglobin 9.0 Creatinine 2.18 Renal ultrasound no evidence of obstruction Echocardiogram ejection fraction 55 to 60%, no vegetation Pending Results Patient Have Any Pending Studies at Discharge: No Discharge Instructions Given to Patient (Per Discharging Provider) May need to discuss further treatment prediabetes with your PCP in light of renal function Total Time Total Time Spent Total Time Spent (In Minutes): 35
== END 2024-05-28 17:26 | disposition home or self-care (01) | DRG 683 ==
LOC: ED 14:34 → SUATTDRO 17:25 → EDINP 17:25 → 2W 20:23

== ENCOUNTER 2025-03-25 09:58 | Inpatient (IN) ==
--- OUTSIDE RECORDS SUMMARY | 2025-03-25 10:04 | External Medical Summary | Summary of Care ---
Author Name Unknown Organization [facility] Address [address] [facility] [place] [address] Phone [phone] Care Team Providers Care Ceo Name Role Phone Ashley Helton Primary Care Provider + Reason for Visit * Reason Onset Date Comments Medication Refill 03/09/2025 Encounter Details Date Type Department Care Team (Late st Contact Info) Description 03/09/2025 Refill [facility]rology[facility] [address] [place] [address] Damien Frias MD [address] [facility] [place] [address] Allergies No known active allergiesdocumented as of this encounter (statuses as of 03/09/2025) Medications ONETOUCH VERIO STRP 0 Active Lancets (ONETOUCH DELICA PLUS [id number]) [facility] [place] FreeStyle Yulissa 2 [place] DeviceIndication s:Type 2 diabetes mellitus with hemoglobin A1c goal of less than 7.0% ([facility]) Use as directed. 1 Active Sertraline HCl 25 MG Oral Tablet (Zoloft) Take 1 Tablet by mouth in the morning. Active Mirtazapine 30 MG Oral Tablet (Remeron) Take 1 Tablet by mouth at bedtime. 4 Active Saccharomyces boulardii 250 MG Oral Capsule (Florastor) Take 1 Capsule by mouth in the morning. Active FreeStyle Yulissa 2 SensorIndication s:Type 2 diabetes mellitus with hemoglobin A1c goal of less than 7.0% ([facility]) Use as directed. Use as directed to check blood sugar. Change every 14 days. 3 Each 2 4 Active Furosemide 20 MG Oral Tablet (Lasix) Take 1 Tablet by mouth in the morning. 30 Tablet 5 4 Active Lisinopril 20 MG Oral Tablet (Prinivil) Take 1 Tablet by mouth in the morning. 06/17/24 ON HOLD. 4 Active Clopidogrel Bisulfate 75 MG Oral Tablet (pLAVix)Indicati ons:Old ID (myocardial infarction),Hist ory of CVA (cerebrovascular accident) TAKE ONE TABLET IN THE MORNING 90 Tablet 1 4 Active Metoprolol Succinate ER 25 MG Oral Tablet Extended Release 24 Hour (toPROL XL)Indications:C hronic systolic heart failure (HCC) TAKE ONE TABLET BY MOUTH TWICE DAILY 180 Tablet 1 4 Active Tamsulosin HCl 0.4 MG Oral Capsule (Flomax)Indicati ons:Urinary retention,Histor y of pulmonary embolism TAKE ONE CAPSULE BY MOUTH IN THE MORNING 90 Capsule 1 4 Active Ondansetron HCl 4 MG Oral TabletIndication s:Indwelling Rushing catheter present Take 1 Tablet by mouth every 8 hours as needed for Nausea. 10 Tablet 4 Active busPIRone HCl 10 MG Oral Tablet (Buspar) Take 1 Tablet by mouth in the morning and 1 Tablet before bedtime. 4 Active Isosorbide Mononitrate ER 30 MG Oral Tablet Extended Release 24 Hour (Imdur)Indicatio ns:Coronary artery disease involving citizen pot[place]atom[place] coronary artery of citizen [place] heart without angina pectoris Take 1 Tablet by mouth in the morning. 90 Tablet 3 4 Active Ampicillin 500 MG Oral Capsule Take 1 Capsule by mouth in the morning and 1 Capsule before bedtime. Starting 3 days prior to TURP and continue for 3 days after procedure. 4 Active rOPINIRole HCl 0.25 MG Oral Tablet (Requip) TAKE ONE TABLET BY MOUTH AT BEDTIME 30 Tablet 2 4 Active LORazepam 0.5 MG Oral Tablet (Ativan) Take 1 Tablet by mouth 2 times a day as needed for Anxiety or Insomnia. 4 Active Pantoprazole Sodium 40 MG Oral Tablet Delayed Release (Protonix) TAKE ONE TABLET BY MOUTH IN THE MORNING 90 Tablet 1 4 Active Atorvastatin Calcium 20 MG Oral Tablet (Lipitor)Indicat ions:Dyslipidemi a TAKE ONE TABLET IN THE MORNING 90 Tablet 1 4 Active Eliquis 5 MG Oral Tablet (Apixaban) TAKE ONE TABLET TWICE DAILY 60 Tablet 5 4 Active amLODIPine Besylate 5 MG Oral Tablet (Norvasc) Take 1 Tablet by mouth in the morning. 30 Tablet 3 5 Active amLODIPine Besylate 5 MG Oral Tablet (Norvasc) Take 1 Tablet by mouth in the morning. 30 Tablet 3 5 03/09/20 25 Discontinu ed(Refill) documented as of this encounter (statuses as of 03/09/2025) Active Problems Problem Noted Date Diagnosed Date Chronic kidney disease, stage 3b 08/29/2024 Overview: Per CKD protocol BPH with obstruction/lower urinary tract symptom s 03/29/2024 Indwelling Rushing catheter present 03/29/2024 Protein-calorie malnutrition 10/15/2023 Depression with anxiety 10/14/2023 History of pulmonary embolism 10/14/2023 Adult failure to thrive 10/14/2023 Ischemic cardiomyopathy 10/14/2023 MEDICATION USE AGREEMENT 12/14/2020 Complex regional pain syndrome type 1 affecting [...] as of this encounter (statuses as of 03/09/2025) Resolved Problems Problem Noted Date Diagnosed Date Resolved Date Preoperative general physical examination 02/03/2024 03/29/2024 Stage 3a chronic kidney disease 08/29/2022 09/01/2024 Overview: Per CKD protocol ETD (Eustachian tube dysfunction), bilateral 2 08/29/2022 GÓMEZ (generalized anxiety disorder) 05/08/2021 10/14/2023 Moderate episode of recurren t major depressive disorder 05/08/2021 10/14/2023 Atherosclerotic heart diseas e of citizen [place] coronary artery with other forms of angina pectoris 05/04/2020 08/08/2020 Adjustment disorder with depressed mood 03/26/2020 05/08/2021 Bilateral carotid artery stenosis 03/26/2020 07/06/2020 documented as of this encounter (statuses as of 03/09/2025) Immunizations Name Administration Dates Next Due COVID-19 mRNA, LNP-s, No Pre serve, 2-Dose Series ([employer]) 04/06/2021,03/16/2021 COVID-19, MRNA-LNP, PF, 30 M CG/0.3 mL, 12 YRS AND ABOVE, IM (PFIZER-Comirnat) 03/29/2024 COVID-19, mRNA, LNP-s, PF, B ooster, 100mcg/0.5mg (Moderna) 03/07/2022 Hepatitis B, 20+ yrs 12/14/2020,05/04/2020 Pneumococcal Polysaccharide PPV23 (Pneumovax) 10/16/2014 Seasonal Influenza Virus Vac cine, Unspecified Formulation 10/15/2023,08/29/2022,08/14/2021,08/27 Seasonal Influenza, PF, 6 M & above, [...] ages 0-17 years) Not on file 04/01/2024 Food Insecurity Answer Date Recorded Within the past 12 months, y ou worried that your food would run out before you got the money to buy more. Never true 04/01/20 24 Within the past 12 months, t he food you bought just didn't last and you didn't have money to get more. Never true 04/01/2024 Do you need food for this week? No 04/01/2024 Sex and Gender Information Value Date Recorded Sex Assigned at Not on file Legal Sex Male 4:16 PM EST Gender Identity Not on file Sexual Orientation Not on file documented as of this encounter Miscellaneous Notes * Telephone Encounter - Damien Frias MD - 03/09/2025 1:14 PM EDTSigned Prescriptions: Disp Refills amLODIPine Besylate 5 MG Oral Tablet (Norv*30 Tab*3 Sig: Take 1 Tablet by mouth in the morning. Authorizing Provider: DAMIEN FRIAS * Telephone Encounter - Deana Reilly LPN - 03/09/2025 12:32 PM EDT Pending Prescriptions: Disp Refills amLODIPine Besylate 5 MG Oral Tablet (Norv*30 Tab*3 Sig: Take 1 Tablet by mouth in the morning. * Telephone Encounter - Deana Reilly LPN - 03/09/2025 12:30 PM EDT Prescription request recieved from [facility]. Please authorize. Last OV: 11/21/24 Next OV: 04/21/25 * Telephone Encounter - Maribell Bethea, bending machine set up operator - 03/09/2025 11:01 AM EDT Patient is up to date for office visits. Pending Prescriptions: Disp Refills amLODIPine Besylate 5 MG Oral Tablet (Nor*30 Tab*3 Sig: Take 1 Tablet by mouth in the morning. Last Visit: 11/21/2024 (in office), Visit date not found (telemedicine) Next Visit: 04/21/2025 If no future appointments scheduled, and last appointment is greater than a year ago, please schedule patient for a follow-up appointment Last date the medication was ordered: 11/21/2024 Pharmacy: [facility], [address] [place] Is this request for a controlled substance?No it is not controlled. Urine Drug Screen: Results for orders placed or performed in visit on 12/14/20 PAIN MANAGEMENT DRUG PANEL, URINE W/ INTERPRETATION Result Value Pain Management Interpretation (NOTE) URINE DRUG SCREEN RESULT Amphetamine Screen, U NEGATIVE Benzodiazepines Screen, U NEGATIVE Cannabinoids Screen, U NEGATIVE Cocaine Metabolite Screen, U NEGATIVE HYDROCODONE NEGATIVE Methadone Metabolite Screen, U NEGATIVE Morphine/Codeine Screen, U NEGATIVE Oxycodone Screen, U REFER TO CONFIRMATION RESULT (A) COMMENT THE ABOVE SCREENING RESULTS ARE PRESUMPTIVE AND CAN ONLY BE USED FOR MEDICAL PURPOSES. CONFIRMATORY TESTING IS AVAILABLE UPON REQUEST. Cutoff Concentration URINE VALID INTERP NORMAL CREATININE IDALIA 45 Patient Phone Numbers Labs: Lab Results Component Value Date/Time CREAT 1.62 (H) 10/08/2024 12:00 AM CREAT 1.3 (H) 05/04/2020 03:11 PM POTASSIUM 4.4 10/08/2024 12:00 AM POTASSIUM 4.0 05/04/2020 03:11 PM TSH 1.38 10/08/2024 12:00 AM LDL 113 01/15/2024 12:19 PM LDLCALC 66 10/08/2024 12:00 AM ALT 9 (L) 08/24/2024 11:24 AM ALT 13 05/04/2020 03:11 PM HGBA1C 7.9 (H) 10/08/2024 12:00 AM HGBA1C 5.3 12/14/2020 01:23 PM documented in this encounter Plan of Treatment Upcoming Encounters Date Type Department Care Team (Late st Contact Info) Description 04/21/2025 10:40 AM EDT Office Visit Nephrology, [facility] [address] [place] [place] [address] Damien Frias MD [address] [facility] [place] [address] 09/04/2025 3:30 PM EDT Office Visit Cardiology, [facility] [address] [place] [phone] Darlene Tomas CRNP [address] [place] [address] Health Maintenance Due Date Last Done Comments DISCUSS TOBACCO CESSATION (REFER TO SMARTSET #4547) 1970 Pneumococcal Vaccine: 50+ Years (2 of 2 - PCV) 10/16/2015 10/16/2014 Cologuard 2015 Colonoscopy 2015 Colorectal Cancer Screening 2015 Fecal Occult Blood Test 2015 Sigmoidoscopy 2015 Diabetic Foot Exam 03/26/2021 03/26/2020 Zoster Vaccines (2 of 2) 05/24/2024 03/29/2024 Depression Monitoring 11/10/2024 11/10/2023 Albumin/Creatinine Ratio 01/26/2025 024, 08/29/2022, 12/14/2020 GFR 04/07/2025 10/08/2024, 10/0 07/2024, 06/22/2024, Additional history exists HbA1c 04/07/2025 10/08/2024, 05/17, 01/15/2024, Additional history exists Diabetic Eye Exam 06/10/2025 06/10/2024, , 07/07/2022, Additional history exists Influenza Vaccine (FLU shot) (Season Ended) 2025 10/15/2023, 10/15/2023, 08/29/2022, Additional history exists CKD PHOS USE SMARTSET 62540 08/24/2025 10/0 07/2024, 06/22/2024, 06/06/2024, Additional history exists CKD HGB USE SMARTSET 77018 10/08/202510/08, 08/24/2024, 08/24/2024, Additional history exists DTap/Tdap Vaccines (2 - Td or Tdap) 05/04/2030 05/04/2020 Hepatitis B Vaccine Discontinued 12/14/2020, COVID-19 Vaccine Discontinued 03/29/2024, , 04/06/2021, Additional history exists HIV Screening Discontinued HPV (Gardasil) Vaccine Aged Out No lo nger eligible based on patient's age to complete this topic Hepatitis C Screening Discontinued MENINGOCOCCAL (MENACTRA/MENVEO) Aged Out No longer eligible based on patient's age to complete this topic Meningitis B Vaccine (Bexsero/Trumemba) Aged Out No longer eligible based on patient's age to complete this topic documented as of this encounter Medical Devices Not on filedocumented as of this encounter Care Teams Ceo Relationship Specialty Start Date End Date Ashley Helton CRNP [address] [place], [place] [id number] PCP - General Nurse Practitioner 11/11/24 documented as of this encounter
--- OUTSIDE RECORDS SUMMARY | 2025-03-25 10:05 | External Medical Summary | Summary of Care ---
Author Name Unknown Organization [facility] Address [address] [facility] [place] [address] Phone [phone] Care Team Providers Care Supervisor Cleaning And Annealing Name Role Phone Danie Ashley EVANS Primary Care Provider + Encounter Details Date Type Department Care Team (Late st Contact Info) Description 12/08/2024 Population Health External Data Unspecified Department Allergies No known active allergiesdocumented as of this encounter (statuses as of 12/08/2024) Medications ONETOUCH VERIO STRP 0 Active Lancets (ONETOUCH DELICA PLUS [id number]) [facility] 0 Active FreeStyle Yulissa 2 [place] DeviceIndication s:Type 2 diabetes mellitus with hemoglobin A1c goal of less than 7.0% (HCC) Use as directed. 1 Active Sertraline HCl [...] less than 7.0% (HCC) Use as directed. Use as directed to [...] Bisulfate 75 MG Oral Tablet (pLAVix)Indicati ons:Old [place] (myocardial infarction),Hist ory of CVA (cerebrovascular accident) [...] 24 Hour (Imdur)Indicatio ns:Coronary artery disease involving que[place] coronary artery of quechan heart without angina pectoris Take 1 Tablet [...] the morning. 30 Tablet 3 5 Active documented as of this encounter (statuses as of 12/08/2024) Active Problems Problem Noted Date Diagnosed Date [...] 05/04/2020 HTN, goal below 130/80 03/26/2020 Old SD (myocardial infarction) 03/26/2020 Dyslipidemia 03/26/2020 Tobacco use disorder 03/26/2020 History of CVA (cerebrovascular accident) 2019 Type 2 diabetes mellitus wit h hemoglobin A1c goal of less than 7.0% 03/26/2020 Chronic systolic heart failure 03/26/2020 documented as of this encounter (statuses as of 12/08/2024) Resolved Problems Problem Noted Date Diagnosed Date Resolved Date Preoperative general physical examination 02/03/2024 03/29/2024 Stage 3a chronic kidney disease 08/29/2022 09/01/2024 Overview: Per CKD protocol ETD (Eustachian tube dysfunction), bilateral 2 08/29/2022 GÓMEZ (generalized anxiety disorder) 05/08/2021 10/14/2023 Moderate episode of recurren t major depressive disorder 05/08/2021 10/14/2023 Atherosclerotic heart diseas e of quechan coronary artery with other forms of angina pectoris 05/04/2020 08/08/2020 Adjustment disorder with depressed mood 03/26/2020 05/08/2021 Bilateral carotid artery stenosis 03/26/2020 07/06/2020 documented as of this encounter (statuses as of 12/08/2024) Immunizations Name Administration Dates Next Due COVID-19 mRNA, LNP-s, No Pre serve, 2-Dose Series ([employer]) 04/06/2021,03/16/2021 COVID-19, MRNA-LNP, PF, 30 M CG/0.3 [...] Care Team (Late st Contact Info) Description 01/09/2025 9:20 AM EST Office Visit Family Practice [facility] [address] [place] [address] Pedro Pablo Gaspar MD [address] [place] [address] 04/21/2025 10:40 AM EDT Office Visit Nephrology, [place] [address] [place] [address] Jose Alberto Frias MD [address] [place] [address] Health Maintenance Due Date Last Done Comments DISCUSS TOBACCO CESSATION (REFER TO SMARTSET #4829) 1970 Pneumococcal Vaccine: 50+ Years (2 of 2 - PCV) 10/16/2015 10/16/2014 Cologuard 2015 Colonoscopy 2015 Colorectal Cancer Screening 2015 Fecal Occult Blood Test 2015 Sigmoidoscopy 2015 Diabetic Foot Exam 03/26/2021 03/26/2020 Zoster Vaccines (2 of 2) 05/24/2024 03/29/2024 Influenza Vaccine (FLU shot) (#1) 2024 10/15/2023, 10/15/2023, 08/29/2022, Additional history exists Depression Monitoring 11/10/2024 11/10/2023 Albumin/Creatinine Ratio 01/26/2025 024, 08/29/2022, 12/14/2020 GFR 04/07/2025 10/08/2024, 07/2024, 06/22/2024, Additional history exists HbA1c 04/07/2025 10/08/2024, 05/17, 01/15/2024, Additional history exists Diabetic Eye Exam 06/10/2025 06/10/2024, , 07/07/2022, Additional history exists CKD PHOS USE SMARTSET 13317 08/24/2025 100 07/2024, 06/22/2024, 06/06/2024, Additional history exists CKD HGB USE SMARTSET 25995 10/08/202510/08, 08/24/2024, 08/24/2024, Additional history exists DTap/Tdap [...] filedocumented as of this encounter Care Teams Supervisor Cleaning And Annealing Relationship Specialty Start Date End Date Ashley Helton CRNP [address] [place] [address] PCP - General Nurse Practitioner 11/11/24 documented as of this encounter
--- OUTSIDE RECORDS SUMMARY | 2025-03-25 10:05 | External Medical Summary | Summary of Care ---
Author Name Unknown Organization [facility] Address [address] [facility] [place] [address] Phone [phone] Care Team Providers Care Rn Examiner Name Role Phone Shira Blackman MD Primary Care Provider [phone] Reason for Visit * Reason Comments eRx-Medication Refill Encounter Details Date Type Department Care Team (Late st Contact Info) Description 11/04/[address] [facility] [address] [place] [address] Shira Blackman MD [address] [place] [address] Allergies No known active allergiesdocumented as of this encounter (statuses as of 11/06/2024) Medications ONETOUCH VERIO STRP 03/22/20 20 Active Lancets (ONETOUCH DELICA PLUS [id number]) [facility] 03/22/20 20 Active FreeStyle Yulissa 2 Cardale DeviceIndicatio ns:Type 2 diabetes mellitus with hemoglobin A1c goal of less than 7.0% ([facility]) Use as directed. 03/07/20 21 Active Sertraline HCl 25 MG Oral Tablet (Zoloft) Take 1 Tablet by mouth in the morning. Active Mirtazapine 30 MG Oral Tablet (Remeron) Take 1 Tablet by mouth at bedtime. 05/25/20 24 Active Saccharomyces boulardii 250 MG Oral Capsule (Florastor) Take 1 Capsule by mouth in the morning. Active FreeStyle Yulissa 2 SensorIndicatio ns:Type 2 diabetes mellitus with hemoglobin A1c goal of less than 7.0% ([facility]) Use as directed. Use as directed to check blood sugar. Change every 14 days. 3 Each 2 06/15/20 24 Active Furosemide 20 MG Oral Tablet (Lasix) Take 1 Tablet by mouth in the morning. 30 Tablet 5 06/17/20 24 Active Lisinopril 20 MG Oral Tablet (Prinivil) Take 1 Tablet by mouth in the morning. 06/17/24 ON HOLD. 06/17/20 24 Active Clopidogrel Bisulfate 75 MG Oral Tablet (pLAVix)Indicat ions:Old ID (myocardial infarction),His tory of CVA (cerebrovascula r accident) TAKE ONE TABLET IN THE MORNING 90 Tablet 1 06/22/20 24 Active Metoprolol Succinate ER 25 MG Oral Tablet Extended Release 24 Hour (toPROL XL)Indications: Chronic systolic heart failure (HCC) TAKE ONE TABLET BY MOUTH TWICE DAILY 180 Tablet 1 06/22/20 24 Active Tamsulosin HCl 0.4 MG Oral Capsule (Flomax)Indicat ions:Urinary retention,Histo ry of pulmonary embolism TAKE ONE CAPSULE BY MOUTH IN THE MORNING 90 Capsule 1 06/22/20 24 Active Ondansetron HCl 4 MG Oral TabletIndicatio ns:Indwelling Rushing catheter present Take 1 Tablet by mouth every 8 hours as needed for Nausea. 10 Tablet 07/15/20 24 Active busPIRone HCl 10 MG Oral Tablet (Buspar) Take 1 Tablet by mouth in the morning and 1 Tablet before bedtime. 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 90 Tablet 3 08/31/20 24 Active Ampicillin 500 MG Oral Capsule Take 1 Capsule by mouth in the morning and 1 Capsule before bedtime. Starting 3 days prior to TURP and continue for 3 days after procedure. 08/30/20 24 Active rOPINIRole HCl 0.25 MG Oral Tablet (Requip) TAKE ONE TABLET BY MOUTH AT BEDTIME 30 Tablet 2 09/16/20 24 Active LORazepam 0.5 MG Oral Tablet (Ativan) Take 1 Tablet by mouth 2 times a day as needed for Anxiety or Insomnia. 09/13/20 24 Active Pantoprazole Sodium 40 MG Oral Tablet Delayed Release (Protonix) TAKE ONE TABLET BY MOUTH IN THE MORNING 90 Tablet 1 10/11/20 24 Active Atorvastatin Calcium 20 MG Oral Tablet (Lipitor)Indica tions:Dyslipide nisa TAKE ONE TABLET IN THE MORNING 90 Tablet 1 10/11/20 24 Active Eliquis 5 MG Oral Tablet (Apixaban) TAKE ONE TABLET TWICE DAILY 60 Tablet 5 11/06/20 24 Active Eliquis 5 MG Oral Tablet (Apixaban) TAKE ONE TABLET BY MOUTH TWICE DAILY 60 Tablet 5 05/25/20 24 024 Discontinued documented as of this encounter (statuses as of 11/06/2024) Active Problems Problem Noted Date Diagnosed Date [...] as of this encounter (statuses as of 11/06/2024) Resolved Problems Problem Noted Date Diagnosed Date Resolved Date Preoperative general physical examination 02/03/2024 03/29/2024 Stage 3a chronic kidney disease 08/29/2022 09/01/2024 Overview: Per CKD protocol ETD (Eustachian tube dysfunction), bilateral 2 08/29/2022 GÓMEZ (generalized anxiety disorder) 05/08/2021 10/14/2023 Moderate episode of recurren t major depressive disorder 05/08/2021 10/14/2023 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) 03/29/2024 COVID-19, mRNA, LNP-s, PF, B ooster, [...] encounter Miscellaneous Notes * Telephone Encounter - Nika Bowden, [facility] - 11/06/2024 5:36 PM ESTSigned Prescriptions: Disp Refills Eliquis 5 MG Oral Tablet (Apixaban) 60 Tab*5 Sig: TAKE ONE TABLET TWICE DAILYAuthorizing Provider: SHIRA BLACKMAN User: NIKA BOWDEN documented in this encounter Plan of Treatment Upcoming Encounters Date Type Department Care Team (Late st Contact Info) Description 01/09/2025 9:20 AM EST Office Visit Family [facility] [address] [place] [address] Shira Blackman MD [address] [place] [address] Health Maintenance Due Date Last Done Comments DISCUSS TOBACCO CESSATION (REFER TO SMARTSET #[id number]) 1970 Pneumococcal Vaccine: Pediatrics (0 to 5 Years) [...] exists Depression Monitoring 11/10/2024 11/10/2023 Albumin/Creatinine Ratio 01/26/202501/26/2 024, 08/29/2022, 12/14/2020 GFR 04/07/2025 10/08/2024, 10/07/2024, 06/22/2024, Additional history exists HbA1c 04/07/2025 10/08/2024, 0712/2023, 01/15/2024, Additional history exists Diabetic Eye Exam 06/10/2025 06/10/2024, , 07/07/2022, Additional history exists CKD PHOS USE SMARTSET 12587 08/24/2025 10/0 07/2024, 06/22/2024, 06/06/2024, Additional history exists CKD HGB USE SMARTSET 88254 10/08/202510/08, 08/24/2024, 08/24/2024, Additional history exists DTap/Tdap Vaccines (2 - Td or Tdap) 05/04/2030 05/04/2020 Hepatitis B Vaccine Discontinued 12/14/2020, COVID-19 Vaccine Discontinued 03/29/2024, , 03/07/2022, Additional history exists HIV Screening Discontinued HPV (Gardasil) Vaccine Aged Out No lo nger eligible based on patient's age to complete this topic Hepatitis C Screening Discontinued MENINGOCOCCAL (MENACTRA/MENVEO) Aged Out No longer eligible based on patient's age to complete this topic documented as of this encounter Medical Devices Not on filedocumented as of this encounter Care Teams Rn Examiner Relationship Specialty Start Date End Date Shira Blackman MD [address] [place] [address] PCP - General Family Medicine 10/22/20 documented as of this encounter
--- OUTSIDE RECORDS SUMMARY | 2025-03-25 10:05 | External Medical Summary | Summary of Care ---
Author Name Unknown Organization [facility] Address [address] [facility] [place] [address] Phone [phone] Care Team Providers Care Workers Compensation Claims Specialist Name Role Phone Pedro Pablo Gaspar MD Primary Care Provider [phone] Encounter Details Date Type Department Care Team (Late st Contact Info) Description 10/18/2024 Orders Only Nephrology, [facility] Espinosa [address] [facility] [place] [address] Jose Alberto Frias MD [address] [facility] [place] [address] Allergies No known active allergiesdocumented as of this encounter (statuses as of 10/18/2024) Medications ONETOUCH VERIO STRP 0 Active Lancets (ONETOUCH DELICA PLUS [id number]) [facility] Active FreeStyle Yulissa 2 [place] DeviceIndication s:Type 2 diabetes mellitus with hemoglobin A1c goal of less than 7.0% ([facility]) Use as directed. 1 Active Sertraline HCl 25 MG Oral Tablet (Zoloft) Take 1 Tablet by mouth in the morning. Active Eliquis 5 MG Oral Tablet (Apixaban) TAKE ONE TABLET BY MOUTH TWICE DAILY 60 Tablet 5 4 Active Mirtazapine 30 MG Oral Tablet (Remeron) Take 1 Tablet by mouth at bedtime. 4 Active Saccharomyces boulardii 250 MG Oral Capsule (Florastor) Take 1 Capsule by mouth in the morning. Active FreeStyle Yulissa 2 SensorIndication s:Type 2 diabetes mellitus with hemoglobin A1c goal of less than 7.0% ([facility]) Use as directed. Use as [...] 24 Hour (Imdur)Indicatio ns:Coronary artery disease involving quileute coronary artery of quileute heart without angina pectoris Take 1 Tablet [...] THE MORNING 90 Tablet 1 4 Active documented as of this encounter (statuses as of 10/18/2024) Active Problems Problem Noted Date Diagnosed Date [...] as of this encounter (statuses as of 10/18/2024) Resolved Problems Problem Noted Date Diagnosed Date Resolved Date Preoperative general physical examination 02/03/2024 03/29/2024 Stage 3a chronic kidney disease 08/29/2022 09/01/2024 Overview: Per CKD protocol ETD (Eustachian tube dysfunction), bilateral 2 08/29/2022 GÓMEZ (generalized anxiety disorder) 05/08/2021 10/14/2023 Moderate episode of recurren t major depressive disorder 05/08/2021 10/14/2023 Atherosclerotic heart diseas e of quileute coronary artery with other forms of angina pectoris 05/04/2020 08/08/2020 Adjustment disorder with depressed mood 03/26/2020 05/08/2021 Bilateral carotid artery stenosis 03/26/2020 07/06/2020 documented as of this encounter (statuses as of 10/18/2024) Immunizations Name Administration Dates Next Due COVID-19 mRNA, LNP-s, No Pre serve, 2-Dose Series ([employer]) 04/06/2021,03/16/2021 COVID-19, MRNA-LNP, PF, 30 M CG/0.3 mL, 12 YRS AND ABOVE, IM ([employer]) 03/29/2024 COVID-19, mRNA, LNP-s, PF, B ooster, [...] 9:20 AM EST Office Visit Family Practice [facility] [address] [place] [address] Pedro Pablo Gaspar MD [address] [place] [address] 03/14/2025 8:00 AM EDT Office Visit Cardiology, [facility] [address] [place] [address] Darlene Tomas CRNP [address] [place] [address] Health Maintenance Due Date Last Done Comments DISCUSS TOBACCO CESSATION (REFER TO SMARTSET #[id number]) 1970 Pneumococcal Vaccine: Pediatrics (0 to 5 [...] Additional history exists CKD PHOS USE SMARTSET 88803 08/24/20250 07/2024, 06/22/2024, 06/06/2024, Additional history exists CKD HGB USE SMARTSET 61080 10/08/202510/08, 08/24/2024, 08/24/2024, Additional history exists DTap/Tdap Vaccines (2 - Td or Tdap) 05/04/2030 05/04/2020 Hepatitis B Vaccine Discontinued 12/14/2020, 0 COVID-19 Vaccine Discontinued 03/29/2024, , 03/07/2022, Additional [...] Priority Date/Time Associated Diagnosis Comments CHEMISTRY-OUTSIDE Routine 10/08/2024 TSH Routine 10/08/2024 documented in this encounter Results * (ABNORMAL) CHEMISTRY-OUTSIDE (10/08/2024) Not all results display below - see scan for full detail SEE SCAN: LIPID, CMP, HGB A1C, MAGN, CBCD OUTSIDE LAB (SEE SCANNED REPORT) CREATININE 1.62(H) 0.70 - 1.30 MG/DL OUTSIDE LAB (SEE SCANNED REPORT) EGFR 50(L) >OR=60 ML/MIN/1. 73M2 OUTSIDE LAB (SEE SCANNED REPORT) POTASSIUM 4.4 3.5 - 5.3 MMOL/L OUTSIDE LAB (SEE SCANNED REPORT) GLUCOSE 211(H) 65 - 99 MG/DL OUTSIDE LAB (SEE SCANNED REPORT) HOURS FASTING OUTSID E LAB (SEE SCANNED REPORT) TRIGLYCERIDES-OUT SIDE LAB 86 <150 MG/DL OUTSIDE LAB (SEE SCANNED REPORT) CHOLESTEROL-OUTSI DE LAB 129 <200 MG/DL OUTSIDE LAB (SEE SCANNED REPORT) HDL-OUTSIDE LAB 46 >OR=40 MG/DL OUTSIDE LAB (SEE SCANNED REPORT) CHOL/HDL RATIO-OUTSIDE LAB 2.8 <5.0 OUTSIDE LA B (SEE SCANNED REPORT) LDL (CALCULATED)-OUTS JACIEL LAB 66 MG/DL OUTSIDE LAB (SEE SCANNED REPORT) LDL (DIRECT MEASURE)-OUTSIDE LAB OUTSIDE LAB (SEE SCANNED REPORT) HEMOGLOBIN, M2C-[id number] LAB 7.9(H) <5.7 OF TOT HGB OUTSIDE LAB (SEE SCANNED REPORT) PHOSPHORUS-OUTSID E LAB OUTSIDE LAB (SEE SCANNED REPORT) PTH-OUTSIDE LAB OUTS JACIEL LAB (SEE SCANNED REPORT) MICROALBUMIN RATIO-OUTSIDE LAB OUTSIDE LA B (SEE SCANNED REPORT) PROTEIN, UA-OUTSIDE LAB OUTSIDE LAB (SEE SCANNED REPORT) HGB 9.8(L) 13.2 - 17.1 G/DL OUTSIDE LAB (SEE SCANNED REPORT) 10/08/2024 us History Per Patient LABORATORY Final Result Performing Organization Address City/[facility] Co de Phone Number OUTSIDE LAB (SEE SCANNED REPORT) * TSH (10/08/2024) TSH - OUTSIDE LAB 1.38 0.40 - 4.50 MIU/L OUTSIDE LAB (SEE SCANNED REPORT) Blood Venous blood specimen / Unknown 10/08/2024 us History Per Patient LAB BLOOD ORDERABLES Final R esult Performing Organization Address City/[facility] de Phone Number OUTSIDE LAB (SEE SCANNED REPORT) documented in this encounter Care Teams Workers Compensation Claims Specialist Relationship Specialty Start Date End Date Pedro Pablo Gaspar MD [address] [place] [place] [address] PCP - General Family Medicine 10/22/20 documented as of this encounter
--- OUTSIDE RECORDS SUMMARY | 2025-03-25 10:05 | External Medical Summary | Summary of Care ---
Author Name Unknown Organization [facility] Address [address] [place] [address] Phone [phone] Care Team Providers Care Glass Laminating Operator Name Role Phone Ashley Helton Primary Care Provider + Reason for Visit * Reason Comments Chronic Kidney Disease (CKD) Encounter Details Date Type Department Care Team (Late st Contact Info) Description 11/21/2024 2:40 PM EST Office Visit Nephrology, [facility] [address] [place] [address] Jose Alberto Frias MD [address] [place] [address] Stage 3a chronic kidney disease (HCC)*; HTN, goal below 130/80; BRUNA (acute kidney injury) (HCC); Chronic systolic heart failure (HCC); Type 2 diabetes mellitus with diabetic polyneuropathy, without long-term current use of insulin (HCC) Allergies No known active allergiesdocumented as of this encounter (statuses as of 11/21/2024) Medications ONETOUCH VERIO STRP 0 Active Lancets (ONETOUCH DELICA PLUS [id number]) MISC 0 Active FreeStyle Yulissa 2 Equality DeviceIndication s:Type 2 diabetes mellitus with hemoglobin A1c goal of less than 7.0% ([facility]) Use as directed. 1 Active Sertraline HCl [...] goal of less than 7.0% ([facility]) Use as directed. Use as directed to [...] Bisulfate 75 MG Oral Tablet (pLAVix)Indicati ons:Old [place] (myocardial infarction),Hist ory of CVA (cerebrovascular accident) [...] Ondansetron HCl 4 MG Oral TabletIndication s:Indwelling Giles catheter present Take 1 Tablet by mouth every 8 hours as needed for Nausea. 10 Tablet 4 Active busPIRone HCl 10 MG Oral Tablet (Buspar) Take 1 Tablet by mouth in the morning and 1 Tablet before bedtime. 4 Active Isosorbide Mononitrate ER 30 MG Oral Tablet Extended Release 24 Hour (Imdur)Indicatio ns:Coronary artery disease involving douglas coronary artery of douglas heart without angina pectoris Take 1 Tablet [...] as of this encounter (statuses as of 11/21/2024) Active Problems Problem Noted Date Diagnosed Date Chronic kidney disease, stage 3b 08/29/2024 Overview: Per CKD protocol BPH with obstruction/lower urinary tract symptom s 03/29/2024 Indwelling Giles catheter present 03/29/2024 Protein-calorie malnutrition 10/15/2023 Depression [...] 05/04/2020 HTN, goal below 130/80 03/26/2020 Old [place] (myocardial infarction) 03/26/2020 Dyslipidemia 03/26/2020 Tobacco use disorder 03/26/2020 History of CVA (cerebrovascular accident) 2019 Type 2 diabetes mellitus wit h hemoglobin A1c goal of less than 7.0% 03/26/2020 Chronic systolic heart failure 03/26/2020 documented as of this encounter (statuses as of 11/21/2024) Resolved Problems Problem Noted Date Diagnosed Date Resolved Date Preoperative general physical examination 02/03/2024 03/29/2024 Stage 3a chronic kidney disease 08/29/2022 09/01/2024 Overview: Per CKD protocol ETD (Eustachian tube dysfunction), bilateral 2 08/29/2022 GÓMEZ (generalized anxiety disorder) 05/08/2021 10/14/2023 Moderate episode of recurren t major depressive disorder 05/08/2021 10/14/2023 Atherosclerotic heart diseas e of douglas coronary artery with other forms of angina pectoris 05/04/2020 08/08/2020 Adjustment disorder with depressed mood 03/26/2020 05/08/2021 Bilateral carotid artery stenosis 03/26/2020 07/06/2020 documented as of this encounter (statuses as of 11/21/2024) Immunizations Name Administration Dates Next Due COVID-19 mRNA, LNP-s, No Pre serve, 2-Dose Series (Outbrain) 04/06/2021,03/16/2021 COVID-19, MRNA-LNP, PF, 30 M CG/0.3 mL, 12 YRS AND ABOVE, IM (PFIZER-Comirnaty) 03/29/2024 COVID-19, mRNA, LNP-s, PF, B ooster, [...] Sign Reading Time Taken Comments Blood Pressure 166/70 11/21/2024 2:45 PM EST Pulse 92 11/21/2024 2:45 PM EST Temperature 36.2 °C (97.2 °F) 11/21/2024 2:43 PM ES T Respiratory Rate 18 11/21/2024 2:43 PM EST Oxygen Saturation 97% 11/21/2024 2:43 PM EST Inhaled Oxygen Concentration - - Weight 76.2 kg (168 lb) 11/21/2024 2:43 PM EST Height - - Body Mass Index 27.12 09/16/2024 8:56 AM EDT documented in this encounter Progress Notes * Jose Alberto Frias MD - 11/21/2024 2:52 PM EST Chief Complaint Patient presents with Chronic Kidney Disease (CKD) HPI: 53-year-old male with relatively normal kidney function up until few months ago with a baseline creatinine around 1. I saw him in the hospital during this recent hospitalization from May 26 to May 28. The reason for hospital admission was severe pain in the urethral site of Giles catheter. He was seen by Urology. No clear cause found. Catheter was changed and medical therapy done. No longer has pain. He does have chronic Giles catheter. he has h/o chronic systolic heart failure ( however ECHO during admission normal LVEF) , CAD s/p MIw/ stenting in 2013, HTN, hyperlipidemia, ischemic cardiomyopathy, DM2, GERD, CKD3, prior PE, priorCVA w/ mild cognitive disability, and h/o alcohol abuse who presented to the ED with increased ureth ral/Penile pain that he relates to his Giles catheter. During this most recent hospitalization he did have BRUNA with high potassium both of which resolved. on admission creatinine was 2.9 but this morning is better at 2.1 after IV fluids overnight. At discharge creat was 2.1 and normal K as of 05/28/2024 . No labs since discharge. Prior to this was hospitalized to 04/29 secondary to sepsis in setting of staph bacteremia and aspiration pneumonia. He was started on IV Zosyn and then transitioned to cefazolin and Levaquinat discharge. He was seen and evaluated by infectious disease who recommended IV antibiotics for 4 weeks till 05/25/2024 due to concern for staph bacteremia. IV cefazolin was stopped on May 11 because of concern with kidney function. He completed oral Levaquin for pneumonia. His hospital course was complicated by BRUNA. Peak creatinine was 2.61. He was treated with IV fluids and nephrotoxic agents were held including lisinopril, metformin and Aldactone. His cr improved to 1.9 at discharge. few d ays after discharge on May 04 creatinine was even better at 1.6 but then got worse as an outpatient with creatinine of 3 as of May 18, 2024. He reports normal amount of urine. No edema. Normal appetite. No shortness of breath nausea vomiting abdominal pain. No pain at the Giles catheter site. No gross hematuria At this time is not on Lasix spironolactone lisinopril Jardiance or metformin. All of these are on hold pending lab today. Since last visit ------No giles now. No Admissions. He has new primary care now. Also lot of his previous medications are not currently inactive list. Blood pressure is running high and he is aware as he was told by this by multiple doctors including recent visit with psychiatrist. He is not on any medication for diabetes now. He is on lower dose of Lasix but he is not on lisinopril or spironolactone. As per Cardiology note he has had some improvement with the his ejection fraction. Last echo was done September 2024 and showed an EF of 35%. Patient Active Problem List Diagnosis HTN, goal below 130/80 Old [place] (myocardial infarction) Dyslipidemia Tobacco use disorder History of CVA (cerebrovascular accident) Type 2 diabetes mellitus with hemoglobin A1c goal of less than 7.0% ([facility]) Chronic systolic heart failure (HCC) Hemiplegia, post-stroke (HCC) Type 2 diabetes mellitus with diabetic polyneuropathy (HCC) History of right-sided carotid endarterectomy Gastroesophageal reflux disease without esophagitis Complex regional pain syndrome type 1 affecting both hands MEDICATION USE AGREEMENT Depression with anxiety History of pulmonary embolism Adult failure to thrive Ischemic cardiomyopathy Protein-calorie malnutrition (HCC) BPH with obstruction/lower urinary tract symptoms Indwelling Giles catheter present Chronic kidney disease, stage 3b ([facility]) Current Outpatient Medications Medication Sig Dispense Refill Sertraline HCl 25 MG Oral Tablet (Zoloft) Take 1 Tablet by mouth in the morning. Saccharomyces boulardii 250 MG Oral Capsule (Florastor) Take 1 Capsule by mouth in the morning. Furosemide 20 MG Oral Tablet (Lasix) Take 1 Tablet by mouth in the morning. 30 Tablet 5 Clopidogrel Bisulfate 75 MG Oral Tablet (pLAVix) TAKE ONE TABLET IN THE MORNING 90 Tablet 1 Metoprolol Succinate ER 25 MG Oral Tablet Extended Release 24 Hour (toPROL XL) TAKE ONE TABLET BY MOUTH TWICE DAILY 180 Tablet 1 Tamsulosin HCl 0.4 MG Oral Capsule (Flomax) TAKE ONE CAPSULE BY MOUTH IN THE MORNING 90 Capsule 1 Isosorbide Mononitrate ER 30 MG Oral Tablet Extended Release 24 Hour (Imdur) Take 1 Tablet by mouthin the morning. 90 Tablet 3 rOPINIRole HCl 0.25 MG Oral Tablet (Requip) TAKE ONE TABLET BY MOUTH AT BEDTIME 30 Tablet 2 LORazepam 0.5 MG Oral Tablet (Ativan) Take 1 Tablet by mouth 2 times a day as needed for Anxiety orInsomnia. Pantoprazole Sodium 40 MG Oral Tablet Delayed Release (Protonix) TAKE ONE TABLET BY MOUTH IN THE MORNING 90 Tablet 1 Atorvastatin Calcium 20 MG Oral Tablet (Lipitor) TAKE ONE TABLET IN THE MORNING 90 Tablet 1 Eliquis 5 MG Oral Tablet (Apixaban) TAKE ONE TABLET TWICE DAILY 60 Tablet 5 ONETOUCH VERIO STRP Lancets (Bizzler CorporationTOUCH DELICA PLUS [id number]) [facility] FreeStyle Yulissa 2 Equality Device Use as directed. Mirtazapine 30 MG Oral Tablet (Remeron) Take 1 Tablet by mouth at bedtime. (Patient not taking: Reported on 11/21/2024) FreeStyle Yulissa 2 Sensor Use as directed. Use as directed to check blood sugar. Change every 14 days. 3 Each 2 Lisinopril 20 MG Oral Tablet (Prinivil) Take 1 Tablet by mouth in the morning. 06/17/24 ON HOLD. (Patient not taking: Reported on 11/21/2024) Ondansetron HCl 4 MG Oral Tablet Take 1 Tablet by mouth every 8 hours as needed for Nausea. 10 Tablet 0 busPIRone HCl 10 MG Oral Tablet (Buspar) Take 1 Tablet by mouth in the morning and 1 Tablet before bedtime. Ampicillin 500 MG Oral Capsule Take 1 Capsule by mouth in the morning and 1 Capsule before bedtime.Starting 3 days prior to TURP and continue for 3 days after procedure. No current facility-administered medications for this visit. Past Medical History: Diagnosis Date Adjustment disorder with depressed mood 03/26/2020 Bilateral carotid artery stenosis 03/26/2020 BPH with obstruction/lower urinary tract symptoms 03/29/2024 Complex regional pain syndrome type 1 affecting both hands 09/21/2020 Depression with anxiety 10/14/2023 Dyslipidemia 03/26/2020 Gastroesophageal reflux disease without esophagitis 07/06/2020 Heart failure, systolic, due to CAD ([facility]) 03/26/2020 Hemiplegia, unspecified affecting unspecified side ([facility]) 05/04/2020 History of CVA (cerebrovascular accident) 03/26/2020 History of pulmonary embolism 10/14/2023 HTN, goal below 130/80 03/26/2020 Indwelling Giles catheter present 03/29/2024 Ischemic cardiomyopathy 10/14/2023 Moderate episode of recurrent major depressive disorder ([facility]) 05/08/2021 Old [place] (myocardial infarction) 03/26/2020 Stage 3a chronic kidney disease ([facility]) 08/29/2022 Tobacco use disorder 03/26/2020 Type 2 diabetes mellitus with hemoglobin A1c goal of less than 7.0% ([facility]) 03/26/2020 No past surgical history on file. Review of patient's allergies indicates: No Known Allergies No family history on file. No family status information on file. Social History Socioeconomic History Marital status: Single Spouse name: Not on file Number of children: Not on file Years of education: Not on file Highest education level: Not on file Occupational History Not on file Tobacco Use Smoking status: Every Day Current packs/day: 0.50 Types: Cigarettes Smokeless tobacco: Former Types: Chew Vaping Use Vaping status: Never Used Substance and Sexual Activity Alcohol use: Yes Comment: ocasionally Drug use: Never Sexual activity: Not on file Other Topics Concern Not on file Social History Narrative Not on file Social Needs Financial Resource Strain: Low Risk (04/01/2024) Financial Resource Strain Do you have any trouble paying for your medications, or do you think you might in the future? (Adult - for ages 18 years and over): No Does your family have trouble paying for medicine? (Household - for ages 0-17 years): Not on file Food Insecurity: No Food Insecurity (04/01/2024) Food Insecurity Do you need food for this week? (Adult - for ages 18 years and over): No Are you able to get enough food for your family? (Household - for ages 0-17 years): Not on file Does your family need food this week? (Household - for ages 0-17 years): Not on file Do you always have enough food for your family? (Household - for ages 0-17 years): Not on file Transportation Needs: No Transportation Needs (04/01/2024) Transportation Needs Do you have trouble getting a ride to medical visits or work? (Adult - for ages 18 years and over):Never True Does your family have a hard time getting a ride to doctors’ visits? (Household - for ages 0-17 years): Not on file Has lack of transportation kept you from medical appointments, meetings, work, or from getting things needed for daily living? Check all that apply. (Adult - for ages 18 years and over): Not on file Do you (or your family) have trouble finding or paying for a ride (transportation)? (Household - for ages 0-17 years): Not on file Social Connections: Socially Integrated (04/01/2024) Social Connections How often do you feel lonely or isolated from those around you? (Adult - for ages 18 years and over): Never Housing Stability: Low Risk (04/01/2024) Housing Stability Do you currently live in a [place] or have no steady place to sleep at night? (Adult - for ages 18 years and over): No Do you think you are at risk of becoming homeless? (Adult - for ages 18 years and over): No Does your family worry about paying for your home or becoming homeless? (Household - for ages 0-17 years): Not on file Are you homeless or worried that you might be in the future? (Adult - for ages 18 years and over): Not on file Are you (or your family) homeless or worried that you might be in the future? (Household - for ages0-17 years): Not on file Review of Systems: Twelve systems reviewed and negative OBJECTIVE: Physical Exam: BP 190/101 | Pulse 92 | Temp 36.2 °C (97.2 °F) | Resp 18 | Wt 76.2 kg (168 lb) | SpO2 97% | BMI 27.12 kg/m² | BSA 1.88 m² General: alert and no distress Head: No masses, lesions, tenderness or abnormalities Neck: supple, no JVD Heart: regular rate & rhythm, no murmur, and no gallops Lungs: normal respiratory rate and rhythm, lungs clear to auscultation Abdomen: abdomen soft and non-tender Back: no costovertebral angle tenderness Extremities: no edema Neuro Exam: alert & oriented x 3 with fluent speech, no focal motor/sensory deficits Skin: skin color, texture, turgor are normal, no rashes or significant lesions Assessment: Stage 3a chronic kidney disease (HCC) (Primary) Prior to this multiple episodes of acute kidney injury in the last 4 months he did have near normalbaseline kidney function despite extensive risk factors for kidney problems---including longstanding diabetic nephropathy as well as significant atherosclerotic diseases. He is now done with antibiotics and does not have any acute symptoms at this time maybe this will be regarded as baseline. Given multiple episodes of acute kidney injury it is quite possible he may have a higher baseline creatinine going forward We will also restart some of it is medication Will do labs as below today as per CKD monitoring and surveillance - CBC WITH WBC DIFFERENTIAL; Future; Expected date: 11/21/2024 - PTH; Future; Expected date: 11/21/2024 - RENAL FUNCTION PANEL; Future; Expected date: 11/21/2024 - PROTEIN/ CREATININE RATIO, URINE; Future; Expected date: 11/21/2024 - HEMOGLOBIN A1C; Future; Expected date: 11/21/2024 - URINALYSIS WITH MICROSCOPIC EXAM; Future; Expected date: 11/21/2024 - 25-HYDROXY VITAMIN D; Future; Expected date: 11/21/2024 - MAGNESIUM; Future; Expected date: 11/21/2024 - NEPHROLOGY FOLLOW UP APPT (DEPARTMENT USE ONLY); Future; Expected date: 05/21/2025 HTN, goal below 130/80 Blood pressure is not controlled now. He is now on Lasix 20 metoprolol and Imdur. Used to be on lisinopril as well as spironolactone but that was stopped because of intermittent acute kidney injury and hyperkalemia when he was frequently admitted in the hospital with sepsis and various causes. Will start amlodipine now. After the lab will decide about further medications Ideally would like to put him on Daquan/ARB BRUNA (acute kidney injury) (HCC) History of multiple distinct episodes of acute kidney injury mostly in the setting of sepsis and bacteremia Last blood work I see was from September 2024 and showed a creatinine which was much better at 1.6 GFR of 50. - CBC WITH WBC DIFFERENTIAL; Future; Expected date: 11/21/2024 - PTH; Future; Expected date: 11/21/2024 - RENAL FUNCTION PANEL; Future; Expected date: 11/21/2024 - PROTEIN/ CREATININE RATIO, URINE; Future; Expected date: 11/21/2024 - HEMOGLOBIN A1C; Future; Expected date: 11/21/2024 - URINALYSIS WITH MICROSCOPIC EXAM; Future; Expected date: 11/21/2024 - 25-HYDROXY VITAMIN D; Future; Expected date: 11/21/2024 - MAGNESIUM; Future; Expected date: 11/21/2024 Chronic systolic heart failure (HCC) Last echocardiogram from September 2024 showed an ejection fraction of 35% which is better than 20% from 2022. Does not have any edema now on Lasix 20 daily Would like to put him back on Daquan/ARB and would do that after the lab result back Type 2 diabetes mellitus with diabetic polyneuropathy, without long-term current use of insulin (HCC) Currently not on any diabetes medication. Was on Jardiance as well as metformin before - HEMOGLOBIN A1C; Future; Expected date: 11/21/2024 Other orders - amLODIPine Besylate 5 MG Oral Tablet (Norvasc); Take 1 Tablet by mouth in the morning. Jose Alberto Frias MD documented in this encounter Nursing Notes * Jennifer Dodson RN - 11/21/2024 2:44 PM EST Follow up visit today. Pt reports that he did take his medication today. documented in this encounter Plan of Treatment Upcoming Encounters Date Type Department Care Team (Late st Contact Info) Description 01/09/2025 9:20 AM EST Office Visit Family [facility] [address] [place] [id number] Pedro Pablo Gaspar MD [address] [place] [address] 04/21/2025 10:40 AM EDT Office Visit Nephrology, [facility] [address] [facility] [place] [address] Jose Alberto Frias MD [address] [facility] [place] [address] Scheduled Orders Name Type Priority Associated Diagnoses Orde r Schedule CBC WITH WBC DIFFERENTIAL Lab Routine Stage 3a chronic kidney disease (HCC) BRUNA (acute kidney injury) (HCC) Expected: 11/21/2024 (Approximate), Expires: 05/20/2025 PTH Lab Routine Stage 3a chronic kidney disease (HCC) BRUNA (acute kidney injury) (HCC) Expected: 11/21/2024 (Approximate), Expires: 05/20/2025 RENAL FUNCTION PANEL Lab Routine Stage 3a chronic kidney disease (HCC) BRUNA (acute kidney injury) (HCC) Expected: 11/21/2024 (Approximate), Expires: 05/20/2025 PROTEIN/ CREATININE RATIO, URINE Lab Routine Stage 3a chronic kidney disease (HCC) BRUNA (acute kidney injury) (HCC) Expected: 11/21/2024 (Approximate), Expires: 05/20/2025 HEMOGLOBIN A1C Lab Routine Stage 3a chronic kidney disease (HCC) BRUNA (acute kidney injury) (HCC) Type 2 diabetes mellitus with diabetic polyneuropathy, without long-term current use of insulin (HCC) Expected: 11/21/2024 (Approximate), Expires: 05/20/2025 URINALYSIS WITH MICROSCOPIC EXAM Lab Routine Stage 3a chronic kidney disease (HCC) BRUNA (acute kidney injury) (HCC) Expected: 11/21/2024 (Approximate), Expires: 05/20/2025 25-HYDROXY VITAMIN D Lab Routine Stage 3a chronic kidney disease (HCC) BRUNA (acute kidney injury) (HCC) Expected: 11/21/2024 (Approximate), Expires: 05/20/2025 MAGNESIUM Lab Routine Stage 3a chronic kidney disease (HCC) BRUNA (acute kidney injury) (HCC) Expected: 11/21/2024 (Approximate), Expires: 05/20/2025 Health Maintenance Due Date Last Done Comments DISCUSS TOBACCO CESSATION (REFER TO SMARTSET #[id number]) 1970 Pneumococcal Vaccine: 50+ Years (2 of [...] Additional history exists CKD PHOS USE SMARTSET 73475 08/24/202507/2024, 06/22/2024, 06/06/2024, Additional history exists CKD HGB USE SMARTSET 95062 10/08/202510/08, 08/24/2024, 08/24/2024, Additional history exists DTap/Tdap [...] Stage 3a chronic kidney disease (HCC)- Primary HTN, goal below 130/80 Unspecified essential hypertension BRUNA (acute kidney injury) (HCC) Acute kidney failure, unspecified Chronic systolic heart failure (HCC) Chronic systolic heart failure Type 2 diabetes mellitus with diabetic polyneuropathy, without long-term current use of insulin (HCC) documented in this encounter Care Teams Glass Laminating Operator Relationship Specialty Start Date End Date Ashley Helton CRNP [address] [place] [address] PCP - General Nurse Practitioner 11/11/24 documented as of this encounter"
--- OUTSIDE RECORDS SUMMARY | 2025-03-25 10:05 | External Medical Summary | Summary of Care ---
Author Name Unknown Organization [facility] Address [address] [facility] [place] [address] Phone [phone] Care Team Providers Care Fine Arts Packer Name Role Phone Ashley Helton Primary Care Provider + Encounter Details Date Type Department Care Team (Late st Contact Info) Description 11/29/2024 Orders Only PATIENT PORTAL DO NOT DELETE THIS DEPT USED BY [place] [id number] Allergies No known active allergiesdocumented as of this encounter (statuses as of 11/29/2024) Medications ONETOUCH VERIO STRP 0 Active Lancets (ONETOUCH DELICA PLUS [id number]) MISC 0 Active FreeStyle Yulissa 2 [place] DeviceIndication s:Type 2 diabetes mellitus with hemoglobin [...] Bisulfate 75 MG Oral Tablet (pLAVix)Indicati ons:[place] (myocardial infarction),Hist ory of CVA (cerebrovascular accident) [...] 24 Hour (Imdur)Indicatio ns:Coronary artery disease involving [place] coronary artery of [place] heart without angina pectoris Take 1 Tablet [...] as of this encounter (statuses as of 11/29/2024) Active Problems Problem Noted Date Diagnosed Date [...] 05/04/2020 HTN, goal below 130/80 03/26/2020 [place] (myocardial infarction) 03/26/2020 Dyslipidemia 03/26/2020 Tobacco use disorder 03/26/2020 History of CVA (cerebrovascular accident) 2019 Type 2 diabetes mellitus wit h hemoglobin A1c goal of less than 7.0% 03/26/2020 Chronic systolic heart failure 03/26/2020 documented as of this encounter (statuses as of 11/29/2024) Resolved Problems Problem Noted Date Diagnosed Date Resolved Date Preoperative general physical examination 02/03/2024 03/29/2024 Stage 3a chronic kidney disease 08/29/2022 09/01/2024 Overview: Per CKD protocol ETD (Eustachian tube dysfunction), bilateral 2 08/29/2022 GÓMEZ (generalized anxiety disorder) 05/08/2021 10/14/2023 Moderate episode of recurren t major depressive disorder 05/08/2021 10/14/2023 Atherosclerotic heart diseas e of [place] coronary artery with other forms of angina pectoris 05/04/2020 08/08/2020 Adjustment disorder with depressed mood 03/26/2020 05/08/2021 Bilateral carotid artery stenosis 03/26/2020 07/06/2020 documented as of this encounter (statuses as of 11/29/2024) Immunizations Name Administration Dates Next Due COVID-19 mRNA, LNP-s, No Pre serve, 2-Dose Series (Pfizer) 04/06/2021,03/16/2021 COVID-19, MRNA-LNP, PF, 30 M CG/0.3 mL, 12 YRS AND ABOVE, IM ([facility] 03/29/2024 COVID-19, mRNA, LNP-s, PF, [...] 9:20 AM EST Office Visit Family Practice [facility] [address] [place] [place] [address] Pedro Pablo Gaspar MD [address] [place] [place] [address] 04/21/2025 10:40 AM EDT Office Visit NephrologyMaria Victoria [address] [place], [place] [address] Jose Alberto Frias MD [address] [place] [address] Health Maintenance Due Date Last Done Comments DISCUSS TOBACCO CESSATION (REFER TO SMARTSET #4227) 1970 Pneumococcal Vaccine: 50+ Years (2 of [...] 06/22/2024, Additional history exists HbA1c 04/07/2025 10/08/2024, 07/2 12/2023, 01/15/2024, Additional history exists Diabetic Eye Exam 06/10/2025 06/10/2024, , 07/07/2022, Additional history exists CKD PHOS USE SMARTSET 23719 08/24/2025 100 07/2024, 06/22/2024, 06/06/2024, Additional history exists CKD HGB USE SMARTSET 97076 10/08/202510/08, 08/24/2024, 08/24/2024, Additional history exists DTap/Tdap Vaccines (2 - Td or Tdap) 05/04/2030 05/04/2020 Hepatitis B Vaccine Discontinued 12/14/2020, 06/19/202 0 COVID-19 Vaccine Discontinued 03/29/2024, , 04/06/2021, Additional [...] filedocumented as of this encounter Care Teams Fine Arts Packer Relationship Specialty Start Date End Date Ashley Helton CRNP [address] [place] [address] PCP - General Nurse Practitioner 11/11/24 documented as of this encounter
--- OUTSIDE RECORDS SUMMARY | 2025-03-25 10:05 | External Medical Summary | Summary of Care ---
Author Name Unknown Organization [facility] Address [address] [place] [address] Phone [phone] Care Team Providers Care Red Leader Name Role Phone Ashley Helton Primary Care Provider + Reason for Referral * Evaluate & Treat - Unlimited Visits (Within 3 days (urgent)) - Authorized Specialty Diagnoses / Procedures Referred By Contakhil t Referred To Contact Nephrology Diagnoses Chronic kidney disease (CKD) Ashley Helton CRNP [address] [place] [address] Phone: tel: fax: Referral ID Status Reason Start Date Expiration Date Visits Requested Visits Authorized [id number] Authorized Specialty Services Required 4 [phone] Question Answer Referral Priority Within 3 days (urgent) Where should this appointment be scheduled? [facility] What condition is this patient being seen for? Chronic kidney disease Comments CKD Encounter Details Date Type Department Care Team ([facility] st Contact Info) Description 11/11/2024 Orders Only Access Center, [place] [address] [place] [address] Ext *DO NOT REMOVE THIS DEPARTMENT* [place] [address] Request, External Referral Chronic kidney disease (CKD)* Allergies No known active allergiesdocumented as of this encounter (statuses as of 11/11/2024) Medications ONETOUCH VERIO STRP 0 Active Lancets (ONETOUCH DELICA PLUS [id number]) MISC 0 Active FreeStyle Yulissa 2 [place] DeviceIndication s:Type 2 diabetes mellitus with hemoglobin A1c goal of less than 7.0% ([facility]) Use as directed. 1 Active Sertraline HCl [...] 24 Hour (Imdur)Indicatio ns:Coronary artery disease involving [place] coronary artery of [place] heart without angina pectoris Take 1 Tablet [...] TWICE DAILY 60 Tablet 5 4 Active documented as of this encounter (statuses as of 11/11/2024) Active Problems Problem Noted Date Diagnosed Date [...] as of this encounter (statuses as of 11/11/2024) Resolved Problems Problem Noted Date Diagnosed Date Resolved Date Preoperative general physical examination 02/03/2024 03/29/2024 Stage 3a chronic kidney disease 08/29/2022 09/01/2024 Overview: Per CKD protocol ETD (Eustachian tube dysfunction), bilateral 2 08/29/2022 GÓMEZ (generalized anxiety disorder) 05/08/2021 10/14/2023 Moderate episode of recurren t major depressive disorder 05/08/2021 10/14/2023 Atherosclerotic heart diseas e of [place] coronary artery with other forms of angina pectoris 05/04/2020 08/08/2020 Adjustment disorder with depressed mood 03/26/2020 05/08/2021 Bilateral carotid artery stenosis 03/26/2020 07/06/2020 documented as of this encounter (statuses as of 11/11/2024) Immunizations Name Administration Dates Next Due COVID-19 mRNA, LNP-s, No Pre serve, 2-Dose Series ([employer]) 04/06/2021,03/16/2021 COVID-19, MRNA-LNP, PF, 30 M CG/0.3 mL, 12 YRS AND ABOVE, IM ([facility] 03/29/2024 COVID-19, mRNA, LNP-s, PF, B [place], [...] [address] [place] [address] Jose Alberto Frias MD [address] [facility] [place] [address] 01/09/2025 9:20 AM EST Office Visit Family Practice [facility] [address] [place] [address] Pedro Pablo Gaspar MD [address] [place] [address] Scheduled Referrals Name Type Priority Associated Diagnoses Orde r Schedule NEPHROLOGY REFERRAL OP Referral Within 3 days (urgent) Chronic kidney disease (CKD) Ordered: 11/11/2024 Health Maintenance Due Date Last Done Comments DISCUSS TOBACCO CESSATION (REFER TO SMARTSET #6838) 1970 Pneumococcal Vaccine: 50+ Years (2 of [...] 01/26/202501/26/2 024, 08/29/2022, 12/14/2020 GFR 04/07/2025 10/08/2024, 1007/2024, 06/22/2024, Additional history exists HbA1c 04/07/2025 10/08/2024, 05/17, 01/15/2024, Additional history exists Diabetic Eye Exam 06/10/2025 06/10/2024, , 07/07/2022, Additional history exists CKD PHOS USE SMARTSET 76323 08/24/2025 10/0 07/2024, 06/22/2024, 06/06/2024, Additional history exists CKD HGB USE SMARTSET 26440 10/08/202510/08, 08/24/2024, 08/24/2024, Additional history exists DTap/Tdap [...] as of this encounter Visit Diagnoses Diagnosis Chronic kidney disease (CKD)- Primary Chronic kidney disease, unspecified documented in this encounter Care Teams Red Leader Relationship Specialty Start Date End Date Ashley Helton CRNP [address] [place] [address] PCP - General Nurse Practitioner 11/11/24 documented as of this encounter
--- OUTSIDE RECORDS SUMMARY | 2025-03-25 10:05 | External Medical Summary | Summary of Care ---
Author Name Unknown Organization [facility] Address [address] [facility] [place] [address] Phone [phone] Care Team Providers Care Correspondence Representative Name Role Phone Ashley Helton Primary Care Provider + Reason for Visit * Reason Comments eRx-Medication Refill Encounter Details Date Type Department Care Team (Late st Contact Info) Description 12/05/2024 Refill Family Practice [facility] [address] [place] [address] Pedro Pablo Gaspar MD [address] [place] [address] Urinary retention; History of pulmonary embolism; Chronic systolic heart failure (HCC); [place] (myocardial infarction); History of CVA (cerebrovascular accident) Allergies No known active allergiesdocumented as of this encounter (statuses as of 12/06/2024) Medications ONETOUCH VERIO STRP 0 Active Lancets (ONETOUCH DELICA PLUS [id number]) MISC 0 Active FreeStyle Yulissa 2 [place] DeviceIndication s:Type 2 diabetes mellitus with hemoglobin A1c goal of less than 7.0% ([facility]) Use as directed. 1 Active [...] ([facility]) Use as directed. Use as [...] Bisulfate 75 MG Oral Tablet (pLAVix)Indicati ons:[place] (myocardial infarction),Hist ory of CVA (cerebrovascular accident) [...] 24 Hour (Imdur)Indicatio ns:Coronary artery disease involving [place] coronary artery of [place] heart without angina pectoris Take 1 Tablet [...] as of this encounter (statuses as of 12/06/2024) Active Problems Problem Noted Date Diagnosed Date [...] as of this encounter (statuses as of 12/06/2024) Resolved Problems Problem Noted Date Diagnosed Date Resolved Date Preoperative general physical examination 02/03/2024 03/29/2024 Stage 3a chronic kidney disease 08/29/2022 09/01/2024 Overview: Per CKD protocol ETD (Eustachian tube dysfunction), bilateral 2 08/29/2022 GÓMEZ (generalized anxiety disorder) 05/08/2021 10/14/2023 Moderate episode of recurren t major depressive disorder 05/08/2021 10/14/2023 Atherosclerotic heart diseas e of [place] coronary artery with other forms of angina pectoris 05/04/2020 08/08/2020 Adjustment disorder with depressed mood 03/26/2020 05/08/2021 Bilateral carotid artery stenosis 03/26/2020 07/06/2020 documented as of this encounter (statuses as of 12/06/2024) Immunizations Name Administration Dates Next Due COVID-19 mRNA, LNP-s, No Pre serve, 2-Dose Series ([employer]) 04/06/2021,03/16/2021 COVID-19, MRNA-LNP, PF, 30 M CG/0.3 [...] Miscellaneous Notes * Telephone Encounter - Rufino Solis [facility] - 12/06/2024 8:27 AM ESTRefused Prescriptions: Disp Refills Tamsulosin HCl 0.4 MG Oral Capsule (Flomax)90 Cap*1 Sig: TAKE ONE CAPSULE IN THE MORNINGRefused By: RUFINO SOLIS for Refusal: Managed by another physician Metoprolol Succinate ER 25 MG Oral Tablet *180 Ta*1 Sig: TAKE ONE TABLET TWICE DAILYRefused By: RUFINO SOILS for Refusal: Managed by another physician Clopidogrel Bisulfate 75 MG Oral Tablet (p*90 Tab*1 Sig: TAKE ONE TABLET IN THE MORNINGRefused By: RUFINO SOLIS for Refusal: Managed by another physician rOPINIRole HCl 0.25 MG Oral Tablet (Requip)30 Tab*1 Sig: TAKE ONE TA BLET AT BEDTIMERefused By: RUFINO SOLIS for Refusal: Managed by another physician------ documented in this encounter Plan of Treatment Upcoming Encounters Date Type Department Care Team (Late st Contact Info) Description 01/09/2025 9:20 AM EST Office Visit Family Practice [facility] [address] [address] Pedro Pablo Gaspar MD [address] [place] [address] 04/21/2025 10:40 AM EDT Office Visit NephMaria Victoria weaver [address] [place] [address] Jose Alberto Frias MD [address] [place] [address] Health Maintenance Due Date Last Done Comments DISCUSS TOBACCO CESSATION (REFER TO SMARTSET #3291) 1970 Pneumococcal Vaccine: 50+ Years (2 of [...] Additional history exists CKD PHOS USE SMARTSET 79775 08/24/20250 07/2024, 06/22/2024, 06/06/2024, Additional history exists CKD HGB USE SMARTSET 97571 10/08/202510/08, 08/24/2024, 08/24/2024, Additional history exists DTap/Tdap [...] as of this encounter Visit Diagnoses Diagnosis Urinary retention Retention of urine, unspecified History of pulmonary embolism Personal history of pulmonary embolism Chronic systolic heart failure (HCC) Chronic systolic heart failure [place] (myocardial infarction) Old myocardial infarction History of CVA (cerebrovascular accident) Transient ischemic attack (TIA), and cerebral infarction without residual deficits documented in this encounter Care Teams Correspondence Representative Relationship Specialty Start Date End Date Ashley Helton CRNP [address] [place] [address] PCP - General Nurse Practitioner 11/11/24 documented as of this encounter
--- OUTSIDE RECORDS SUMMARY | 2025-03-25 10:05 | External Medical Summary | Summary of Care ---
Author Name Unknown Organization [facility] Address [address] [facility] [place] [address] Phone [phone] Care Team Providers Care Riveter Automobile Brakes Name Role Phone Ashley Helton Primary Care Provider + Reason for Visit * Reason Onset Date Comments Medication Refill 03/09/2025 Encounter Details Date Type Department Care Team (Late st Contact Info) Description 03/09/2025 Refill NephrologyMaria Victoria [address] [place] [address] Jose Alberto Frias MD [address] [facility] [place] [address] Allergies No known active allergiesdocumented as of this encounter (statuses as of 03/09/2025) Medications ONETOUCH VERIO STRP 0 Active Lancets (ONETOUCH DELICA PLUS [id number]) [facility] 0 Active FreeStyle Yulissa 2 [place] DeviceIndication s:Type 2 diabetes mellitus with hemoglobin A1c goal of less than 7.0% ([facility]) Use as directed. 1 Active Sertraline [...] hemoglobin A1c goal of less than 7.0% ([facility]) Use as directed. Use as directed [...] Bisulfate 75 MG Oral Tablet (pLAVix)Indicati ons:[place] (my[place] infarction),Hist ory of CVA (cerebrovascular accident) [...] 24 Hour (Imdur)Indicatio ns:Coronary artery disease involving [place] coronary artery of [place] heart without angina pectoris Take 1 Tablet [...] 05/08/2021 10/14/2023 Atherosclerotic heart diseas e of [place] coronary artery with other forms of angina pectoris 05/04/2020 08/08/2020 Adjustment disorder with depressed mood 03/26/2020 05/08/2021 Bilateral carotid artery stenosis 03/26/2020 07/06/2020 documented as of this encounter (statuses as of 03/09/2025) Immunizations Name Administration Dates Next Due COVID-19 mRNA, LNP-s, No Pre serve, 2-Dose Series ([employer]) 04/06/2021,03/16/2021 COVID-19, MRNA-LNP, PF, 30 M CG/0.3 mL, 12 YRS AND ABOVE, IM ([email or web address]) 03/29/2024 COVID-19, mRNA, LNP-s, PF, B o[place], [...] encounter Miscellaneous Notes * Telephone Encounter - Nuzhat Flaherty CPhT - 03/09/2025 11:00 AM EDT Transferred to specialty dept Thank you, Nuzhat Flaherty CPhT [facility] 03/09/2025, 11:00 AM documented in this encounter Plan of Treatment Upcoming Encounters Date Type Department Care Team (Late st Contact Info) Description 04/21/2025 10:40 AM EDT Office Visit NephrologyMaria Victoria [address] [place] [address] Jose Alberto Frias MD [address] [place] [address] 09/04/2025 3:30 PM EDT Office Visit Cardiology, [facility] [address] [place] [id number] Darlene Tomas CRNP [address] [place] [address] Health Maintenance Due Date Last Done Comments [...] Additional history exists CKD PHOS USE SMARTSET 54818 08/24/202507/2024, 06/22/2024, 06/06/2024, Additional history exists CKD HGB USE SMARTSET 33130 10/08/202510/08, 08/24/2024, 08/24/2024, Additional history exists DTap/Tdap [...] filedocumented as of this encounter Care Teams Riveter Automobile Brakes Relationship Specialty Start Date End Date Ashley Helton CRNP [address] [place] [address] PCP - General Nurse Practitioner 11/11/24 documented as of this encounter
--- OUTSIDE RECORDS SUMMARY | 2025-03-25 10:05 | External Medical Summary | Summary of Care ---
Author Name Unknown Organization [facility] Address [address] [place] [address] Phone [phone] Care Team Providers Care Eye Technician Name Role Phone Shira Blackman MD Primary Care Provider [phone] Reason for Referral * Medication Prior Authorization - Closed Specialty Diagnoses / Procedures Referred By Eugene t Referred To Contact Diagnoses MEDICATION USE AGREEMENT Shira Blackman [facility] [address] [facility] [address] Phone: tel: fax: Referral ID Status Reason Start Date Expiration Date Visits Re quested Visits Authorized [id number] Closed [phone] Reason for Visit * Reason Onset Date Comments Medication Refill 10/03/2024 Encounter Details Date Type Department Care Team (Late st Contact Info) Description 10/03/2024 Refill Family Practice [facility] [address] [facility] [address] Nora Paul, RN [address] [place], [place] [id number] MEDICATION USE AGREEMENT* Allergies No known active allergiesdocumented as of this encounter (statuses as of 10/03/2024) Medications ONETOUCH VERIO STRP 0 Active Lancets (ONETOUCH DELICA PLUS [id number]) [facility] 0 Active FreeStyle Yulissa 2 [place] DeviceIndication s:Type 2 diabetes mellitus with hemoglobin A1c goal of less than 7.0% ([facility]) Use as directed. 1 Active Sertraline HCl 25 MG Oral Tablet (Zoloft) Take 1 Tablet by mouth in the morning. Active Pantoprazole Sodium 40 MG Oral Tablet Delayed Release (Protonix) Take 1 Tablet by mouth in the morning. 30 Tablet 6 4 Active Atorvastatin Calcium 20 MG Oral [...] 7.0% ([facility]) Use as directed. Use as directed [...] 24 Hour (Imdur)Indicatio ns:Coronary artery disease involving [place] coronary artery of [place] heart without angina pectoris Take 1 Tablet [...] needed for Anxiety or Insomnia. 4 Active Cyclobenzaprine HCl 5 MG Oral Tablet (Flexeril)Indica tions:MEDICATION USE AGREEMENT Take 1 Tablet by mouth 3 times a day as needed for Muscle spasms for up to 10 days. 30 Tablet 4 10/13/20 24 Active Cyclobenzaprine HCl 5 MG Oral Tablet (Flexeril) Take 1 Tablet by mouth 3 times a day as needed for Muscle spasms. 30 Tablet 4 10/03/20 24 Discontinu ed(Refill) documented as of this encounter (statuses as of 10/03/2024) Active Problems Problem Noted Date Diagnosed Date [...] as of this encounter (statuses as of 10/03/2024) Resolved Problems Problem Noted Date Diagnosed Date Resolved Date Preoperative general physical examination 02/03/2024 03/29/2024 Stage 3a chronic kidney disease 08/29/2022 09/01/2024 Overview: Per CKD protocol ETD (Eustachian tube dysfunction), bilateral 2 08/29/2022 GÓMEZ (generalized anxiety disorder) 05/08/2021 10/14/2023 Moderate episode of recurren t major depressive disorder 05/08/2021 10/14/2023 Atherosclerotic heart diseas e of [place] coronary artery with other forms of angina pectoris 05/04/2020 08/08/2020 Adjustment disorder with depressed mood 03/26/2020 05/08/2021 Bilateral carotid artery stenosis 03/26/2020 07/06/2020 documented as of this encounter (statuses as of 10/03/2024) Immunizations Name Administration Dates Next Due COVID-19 mRNA, LNP-s, No Pre serve, 2-Dose Series ([employer]) 04/06/2021,03/16/2021 COVID-19, MRNA-LNP, PF, 30 M CG/0.3 mL, 12 YRS AND ABOVE, IM ([employer]) 03/29/2024 COVID-19, mRNA, LNP-s, PF, B ooster, [...] encounter Miscellaneous Notes * Telephone Encounter - Nora Paul RN - 10/03/2024 2:58 PM ESTSigned Prescriptions: Disp Refills Cyclobenzaprine HCl 5 MG Oral Tablet (Flex*30 Tab*0 Sig: Take 1 Tablet by mouth 3 times a day as needed for Muscle spasms for up to 10 days.Authorizing Provider: SHIRA BLACKMAN * Telephone Encounter - Nora Paul RN - 10/03/2024 2:54 PM EST Pt made aware documented in this encounter Plan of Treatment Upcoming Encounters Date Type Department Care Team (Late st Contact Info) Description 10/14/2024 8:15 AM EST Cardiac Studies Cardiac Studies, [facility] [address] [facility] [place] [address] 01/09/2025 9:20 AM EST Office Visit Family Practice [facility] [address] [facility] [place] [address] Shira Blackman MD [address] [place] [address] 03/14/2025 8:00 AM EDT Office Visit Cardiology, [facility] [address] [place] [address] Darlene Tomas CRNP [address] [place] [address] Health Maintenance Due Date Last Done Comments DISCUSS TOBACCO CESSATION (REFER TO SMARTSET #1706) 1970 Pneumococcal Vaccine: Pediatrics (0 to 5 [...] Additional history exists Depression Monitoring 11/10/2024 11/10/2023 HbA1c 12/07/2024 06/06/2024, 03/0 11/2023, 08/29/2022, Additional history exists Albumin/Creatinine Ratio 01/26/202501/26/2 024, 08/29/2022, 12/14/2020 GFR 02/22/2025 08/24/2024, 08/0 05/2024, 06/14/2024, Additional history exists Diabetic Eye Exam 06/10/2025 06/10/2024, , 07/07/2022, Additional history exists CKD HGB USE SMARTSET 57009 08/24/202508/24, 08/24/2024, 06/06/2024, Additional history exists CKD PHOS USE SMARTSET 67043 08/24/2025/0 07/2024, 06/22/2024, 06/06/2024, Additional history exists DTap/Tdap Vaccines (2 - [...] as of this encounter Visit Diagnoses Diagnosis MEDICATION USE AGREEMENT- Primary documented in this encounter Care Teams Eye Technician Relationship Specialty Start Date End Date Shira Blackman MD [address] [place] [address] PCP - General Family Medicine 10/22/20 documented as of this encounter
--- OUTSIDE RECORDS SUMMARY | 2025-03-25 10:05 | External Medical Summary | Summary of Care ---
Author Name Unknown Organization [facility] Address [address] [facility] [place] [address] Phone [phone] Care Team Providers Care Electrical Sign Servicer Name Role Phone Ashley Helton Primary Care Provider + Reason for Visit * Reason Comments eRx-Medication Refill Encounter Details Date Type Department Care Team (Late st Contact Info) Description 12/07/[address] [facility] [address] [place] [address] Darlene Tomas CRNP [address] [place] [address] Urinary retention; History of pulmonary embolism; Chronic systolic heart failure (HCC); Old [place] (myocardial infarction); History of CVA (cerebrovascular accident) Allergies No known active allergiesdocumented as of this encounter (statuses as of 12/08/2024) Medications ONETOUCH VERIO STRP 0 Active Lancets (ONETOUCH DELICA PLUS [id number]) MISC 0 Active FreeStyle Yulissa 2 [place] DeviceIndication s:Type 2 diabetes mellitus with hemoglobin A1c goal of less than 7.0% ([facility]) Use as directed. 1 Active Sertraline HCl [...] goal of less than 7.0% ([facility]) Use as directed. Use as directed to [...] Bisulfate 75 MG Oral Tablet (pLAVix)Indicati ons:Old [place] (myocardial infarction),Hist ory of CVA (cerebrovascular accident) [...] 24 Hour (Imdur)Indicatio ns:Coronary artery disease involving [place] coronary artery of [place] heart without angina pectoris Take 1 Tablet [...] 05/08/2021 10/14/2023 Atherosclerotic heart diseas e of [place] coronary artery with other forms of angina pectoris 05/04/2020 08/08/2020 Adjustment disorder with depressed mood 03/26/2020 05/08/2021 Bilateral carotid artery stenosis 03/26/2020 07/06/2020 documented as of this encounter (statuses as of 12/08/2024) Immunizations Name Administration Dates Next Due COVID-19 mRNA, LNP-s, No Pre serve, 2-Dose Series ([employer]) 04/06/2021,03/16/2021 COVID-19, MRNA-LNP, PF, 30 M CG/0.3 [...] encounter Miscellaneous Notes * Telephone Encounter - Shikha, Carla Carmina, [facility] - 12/08/2024 4:45 AM EST Refused Prescriptions: Disp Refills Tamsulosin HCl 0.4 MG Oral Capsule (Flomax)90 Cap*1 Sig: TAKE ONE CAPSULE IN THE MORNINGRefused By: CARLA TRIVEDI for Refusal: Managed by another physician Metoprolol Succinate ER 25 MG Oral Tablet *180 Ta*1 Sig: TAKE ONE TABLET TWICE DAILYRefused By: CARLA TRIVEDI for Refusal: Managed by another physician Clopidogrel Bisulfate 75 MG OralTablet (p*90 Tab*1 Sig: TAKE ONE TABLET IN THE MORNINGRefused By: CARLA TRIVEDI for Refusal: Managed by another physician rOPINIRole HCl 0.25 MG Oral Tablet (Requip)30 Tab*1 Sig: TAKE ONE TABLET AT BEDTIMERefused By: CARLA TRIVEDI for Refusal: Managed by another physician-- documented in this encounter Plan of Treatment Upcoming Encounters Date Type Department Care Team (Late st Contact Info) Description 01/09/2025 9:20 AM EST Office Visit Family Practice [facility] [address] [place] [address] Pedro Pablo Gaspar MD [address] [place] [address] 04/21/2025 10:40 AM EDT Office Visit NephMaria Victoria weaver [address] [place] [address] Jose Alberto Frias MD [address] [place] [address] Health Maintenance Due Date Last Done Comments DISCUSS TOBACCO CESSATION (REFER TO SMARTSET #3294) 1970 Pneumococcal Vaccine: 50+ Years (2 of [...] Additional history exists CKD PHOS USE SMARTSET 88882 08/24/20250 07/2024, 06/22/2024, 06/06/2024, Additional history exists CKD HGB USE SMARTSET 11399 10/08/202510/08, 08/24/2024, 08/24/2024, Additional history exists DTap/Tdap [...] failure (HCC) Chronic systolic heart failure Old [place] (myocardial infarction) Old myocardial infarction History of CVA (cerebrovascular accident) Transient ischemic attack (TIA), and cerebral infarction without residual deficits documented in this encounter Care Teams Electrical Sign Servicer Relationship Specialty Start Date End Date Ashley Helton CRNP [address] [place] [address] PCP - General Nurse Practitioner 11/11/24 documented as of this encounter
--- OUTSIDE RECORDS SUMMARY | 2025-03-25 10:05 | External Medical Summary | Summary of Care ---
Author Name Unknown Organization [facility] Address [address] [facility] [place] [address] Phone [phone] Care Team Providers Care Boring Mill Set Up Operator Name Role Phone Shira Blackman MD Primary Care Provider [phone] [phone] Reason for Visit * Reason Comments eRx-Medication Refill Encounter Details Date Type Department Care Team (Late st Contact Info) Description 10/10/2024 Refill Family Practice [facility] [address] [place] [address] Shira Blackman MD [address] [place] [address] Dyslipidemia Allergies No known active allergiesdocumented as of this encounter (statuses as of 10/11/2024) Medications ONETOUCH VERIO STRP 03/22/20 20 Active Lancets (ONETOUCH DELICA PLUS [id number]) [facility] 03/22/20 20 Active FreeStyle Yulissa 2 [place] DeviceIndicatio ns:Type 2 diabetes mellitus with hemoglobin A1c goal of less than 7.0% ([facility]) Use as directed. 03/07/20 21 Active Sertraline HCl 25 MG Oral Tablet (Zoloft) Take 1 Tablet by mouth in the morning. Active Eliquis 5 MG Oral Tablet (Apixaban) TAKE ONE TABLET BY MOUTH TWICE DAILY 60 Tablet 5 05/25/20 24 Active Mirtazapine 30 MG Oral Tablet (Remeron) Take 1 Tablet by mouth at bedtime. 05/25/20 24 Active Saccharomyces boulardii 250 MG Oral Capsule (Florastor) Take 1 Capsule by mouth in the morning. Active FreeStyle Yulissa 2 SensorIndicatio ns:Type 2 diabetes mellitus with hemoglobin A1c goal of less than 7.0% ([facility]) Use as directed. Use as [...] Bisulfate 75 MG Oral Tablet (pLAVix)Indicat ions:Old [place] (myocardial infarction),His tory of CVA (cerebrovascula r [...] 24 Hour (Imdur)Indicati ons:Coronary artery disease involving [place] coronary artery of [place] heart without angina pectoris Take 1 Tablet [...] for Anxiety or Insomnia. 09/13/20 24 Active Cyclobenzaprine HCl 5 MG Oral Tablet (Flexeril)Indic ations:MEDICATI ON USE AGREEMENT Take 1 Tablet by mouth 3 times a day as needed for Muscle spasms for up to 10 days. 30 Tablet 10/03/20 24 024 Active Pantoprazole Sodium 40 MG Oral Tablet Delayed Release (Protonix) TAKE ONE TABLET BY MOUTH IN THE MORNING 90 Tablet 1 10/11/20 24 Active Atorvastatin Calcium 20 MG Oral Tablet (Lipitor)Indica tions:Dyslipide nisa TAKE ONE TABLET IN THE MORNING 90 Tablet 1 10/11/20 24 Active Pantoprazole Sodium 40 MG Oral Tablet Delayed Release (Protonix) Take 1 Tablet by mouth in the morning. 30 Tablet 6 03/30/20 24 024 Discontinued Atorvastatin Calcium 20 MG Oral Tablet (Lipitor)Indica tions:Dyslipide nisa TAKE ONE TABLET IN THE MORNING 90 Tablet 1 04/27/20 24 024 Discontinued documented as of this encounter (statuses as of 10/11/2024) Active Problems Problem Noted Date Diagnosed Date [...] as of this encounter (statuses as of 10/11/2024) Resolved Problems Problem Noted Date Diagnosed Date Resolved Date Preoperative general physical examination 02/03/2024 03/29/2024 Stage 3a chronic kidney disease 08/29/2022 09/01/2024 Overview: Per CKD protocol ETD (Eustachian tube dysfunction), bilateral 08/29/2022 GÓMEZ (generalized anxiety disorder) 05/08/2021 10/14/2023 Moderate episode of recurren t major depressive disorder 05/08/2021 10/14/2023 Atherosclerotic heart diseas e of [place] coronary artery with other forms of angina pectoris 05/04/2020 08/08/2020 Adjustment disorder with depressed mood 03/26/2020 05/08/2021 Bilateral carotid artery stenosis 03/26/2020 07/06/2020 documented as of this encounter (statuses as of 10/11/2024) Immunizations Name Administration Dates Next Due COVID-19 mRNA, LNP-s, No Pre serve, 2-Dose Series ([employer]) 04/06/2021,03/16/2021 COVID-19, MRNA-LNP, PF, 30 M CG/0.3 mL, 12 YRS AND ABOVE, IM ([facility]) 03/29/2024 COVID-19, mRNA, LNP-s, PF, [place], [...] encounter Miscellaneous Notes * Telephone Encounter - Ester Meyers [facility] - 10/11/2024 3:25 PM EST Signed Prescriptions: Disp Refills Pantoprazole Sodium 40 MG Oral Tablet Lucinda*90 Tab*1 Sig: TAKE ONE TABLET BY MOUTH IN THE MORNINGAuthorizing Provider: SHIRA BLACKMAN User: ESTER MEYERS Atorvastatin Calcium 20 MG Oral Tablet (Li*90 Tab*1 Sig: TAKE ONE TABLET IN THE MORNINGAuthorizing Provider: SHIRA BLACKMAN User: ESTER MEYERS documented in this encounter Plan of Treatment Upcoming Encounters Date Type Department Care Team (Late st Contact Info) Description 10/14/2024 8:15 AM EST Cardiac Studies Cardiac Studies, [facility] [address] [place] [address] 01/09/2025 9:20 AM EST Office Visit Family Practice [facility] [address] [place] [address] Shira Blackman MD [address] [place] [address] 03/14/2025 8:00 AM EDT Office Visit Cardiology, [facility] [address] [place] [address] Darlene Tomas CRNP [address] [place] [address] Health Maintenance Due Date Last Done Comments DISCUSS TOBACCO CESSATION (REFER TO SMARTSET #2690) 1970 Pneumococcal Vaccine: Pediatrics (0 to 5 [...] Additional history exists CKD HGB USE SMARTSET 57438 08/24/202508/24, 08/24/2024, 06/06/2024, Additional history exists CKD PHOS USE SMARTSET 70927 08/24/2025 10/0 07/2024, 06/22/2024, 06/06/2024, Additional history exists DTap/Tdap [...] as of this encounter Visit Diagnoses Diagnosis Dyslipidemia Other and unspecified hyperlipidemia documented in this encounter Care Teams Boring Mill Set Up Operator Relationship Specialty Start Date End Date Shira Blackman MD [address] [place] [place] [address] PCP - General Family Medicine 10/22/20 documented as of this encounter
--- OUTSIDE RECORDS SUMMARY | 2025-03-25 10:05 | External Medical Summary | Summary of Care ---
Author Name Unknown Organization [facility] Address [address] [facility] [place] [address] Phone [phone] Care Team Providers Care Ed Transporter Name Role Phone Pedro Pablo Gaspar MD Primary Care Provider [phone] Reason for Visit * Reason Onset Date Comments Medication Refill 10/09/2024 Encounter Details Date Type Department Care Team (Late st Contact Info) Description 10/09/2024 Refill Family Practice [facility] [address] [place] [address] Pedro Pablo Gaspar MD [address] [facility] [place] [address] MEDICATION USE AGREEMENT Allergies No known active allergiesdocumented as of this encounter (statuses as of 10/10/2024) Medications ONETOUCH VERIO STRP 0 Active Lancets (ONETOUCH DELICA PLUS [id number]) MISC 0 Active FreeStyle Yulissa 2 [place] DeviceIndication s:Type 2 diabetes mellitus with hemoglobin A1c goal of less than 7.0% ([facility]) Use as directed. 1 Active Sertraline HCl [...] goal of less than 7.0% ([facility]) Use as directed. Use as directed to [...] Bisulfate 75 MG Oral Tablet (pLAVix)Indicati ons:Old [place] (myocardial infarction),Hist ory of CVA (cerebrovascular accident) [...] 24 Hour (Imdur)Indicatio ns:Coronary artery disease involving [place] coronary artery of [place] heart without angina pectoris Take 1 Tablet [...] days. 30 Tablet 4 10/13/20 24 Active documented as of this encounter (statuses as of 10/10/2024) Active Problems Problem Noted Date Diagnosed Date [...] 05/04/2020 HTN, goal below 130/80 03/26/2020 Old [place] (myocardial infarction) 03/26/2020 Dyslipidemia 03/26/2020 Tobacco use disorder 03/26/2020 History of CVA (cerebrovascular accident) 2019 Type 2 diabetes mellitus wit h hemoglobin A1c goal of less than 7.0% 03/26/2020 Chronic systolic heart failure 03/26/2020 documented as of this encounter (statuses as of 10/10/2024) Resolved Problems Problem Noted Date Diagnosed Date Resolved Date Preoperative general physical examination 02/03/2024 03/29/2024 Stage 3a chronic kidney disease 08/29/2022 09/01/2024 Overview: Per CKD protocol ETD (Eustachian tube dysfunction), bilateral 2 08/29/2022 GÓMEZ (generalized anxiety disorder) 05/08/2021 10/14/2023 Moderate episode of recurren t major depressive disorder 05/08/2021 10/14/2023 Atherosclerotic heart diseas e of [place] coronary artery with other forms of angina pectoris 05/04/2020 08/08/2020 Adjustment disorder with depressed mood 03/26/2020 05/08/2021 Bilateral carotid artery stenosis 03/26/2020 07/06/2020 documented as of this encounter (statuses as of 10/10/2024) Immunizations Name Administration Dates Next Due COVID-19 mRNA, LNP-s, No Pre serve, 2-Dose Series ([employer]) 04/06/2021,03/16/2021 COVID-19, MRNA-LNP, PF, 30 M CG/0.3 [...] encounter Miscellaneous Notes * Telephone Encounter - Iah, [facility] - 10/10/2024 12:02 PM ESTRefused Prescriptions: Disp Refills Cyclobenzaprine HCl 5 MG Oral Tablet (Flex*30 Tab*0 Sig: Take 1Tablet by mouth 3 times a day as needed for Muscle spasms.Refused By: CHRISTINA JONESeason for Refusal: Duplicate Request documented in this encounter Plan of Treatment Upcoming Encounters Date Type Department Care Team (Late st Contact Info) Description 10/14/2024 8:15 AM EST Cardiac Studies Cardiac Studies, [facility] [address] [place] [address] 01/09/2025 9:20 AM EST Office Visit Family Practice [facility] [address] [place] [address] Pedro Pablo Gaspar MD [address] [place] [address] 03/14/2025 8:00 AM EDT Office Visit Cardiology, [facility] [address] [place] [address] Darlene Tomas CRNP [address] [place] [address] Health Maintenance Due Date Last Done Comments DISCUSS TOBACCO CESSATION (REFER TO SMARTSET #3291) 1970 Pneumococcal Vaccine: Pediatrics (0 to 5 [...] 11/2023, 08/29/2022, Additional history exists Albumin/Creatinine Ratio 01/26/20252 024, 08/29/2022, 12/14/2020 GFR 02/22/2025 08/24/2024, 08/0 05/2024, 06/14/2024, Additional history exists Diabetic Eye Exam 06/10/2025 06/10/2024, , 07/07/2022, Additional history exists CKD HGB USE SMARTSET 60024 08/24/202508/24, 08/24/2024, 06/06/2024, Additional history exists CKD PHOS USE SMARTSET 69317 08/24/2025 10/0 07/2024, 06/22/2024, 06/06/2024, Additional history [...] this encounter Visit Diagnoses Diagnosis MEDICATION USE AGREEMENT documented in this encounter Care Teams Ed Transporter Relationship Specialty Start Date End Date Pedro Pablo Gaspar MD [address] [place] [address] PCP - General Family Medicine 10/22/20 documented as of this encounter
--- OUTSIDE RECORDS SUMMARY | 2025-03-25 10:06 | External Medical Summary | Summary of Care ---
Author Name Unknown Organization [facility] Address [address] [place] [address] Phone [phone] Care Team Providers Care Black Ash Burner Operator Name Role Phone Pedro Pablo Gaspar MD Primary Care Provider [phone] Reason for Visit * Reason Onset Date Comments Medication Refill 09/26/2024 Encounter Details Date Type Department Care Team (Late st Contact Info) Description 09/26/2024 Refill [facility] [address] [place], [place] [id number] Pedro Pablo Gaspar MD [address] [place] [address] Allergies No known active allergiesdocumented as of this encounter (statuses as of 09/30/2024) Medications ONETOUCH VERIO STRP 0 Active Lancets (ONETOUCH DELICA PLUS [id number]) [facility] 0 Active FreeStyle Yulissa 2 [place] DeviceIndication s:Type 2 diabetes mellitus with hemoglobin A1c goal of less than 7.0% ([facility]) Use as directed. 1 Active Sertraline HCl [...] hemoglobin A1c goal of less than 7.0% ([facility]) Use as directed. Use as directed to [...] 24 Hour (Imdur)Indicatio ns:Coronary artery disease involving [place] coronary artery of [place] heart without angina pectoris Take 1 Tablet [...] needed for Muscle spasms. 30 Tablet 4 Active documented as of this encounter (statuses as of 09/30/2024) Active Problems Problem Noted Date Diagnosed Date [...] as of this encounter (statuses as of 09/30/2024) Resolved Problems Problem Noted Date Diagnosed Date Resolved Date Preoperative general physical examination 02/03/2024 03/29/2024 Stage 3a chronic kidney disease 08/29/2022 09/01/2024 Overview: Per CKD protocol ETD (Eustachian tube dysfunction), bilateral 2 08/29/2022 GÓMEZ (generalized anxiety disorder) 05/08/2021 10/14/2023 Moderate episode of recurren t major depressive disorder 05/08/2021 10/14/2023 Atherosclerotic heart diseas e of [place] coronary artery with other forms of angina pectoris 05/04/2020 08/08/2020 Adjustment disorder with depressed mood 03/26/2020 05/08/2021 Bilateral carotid artery stenosis 03/26/2020 07/06/2020 documented as of this encounter (statuses as of 09/30/2024) Immunizations Name Administration Dates Next Due COVID-19 mRNA, LNP-s, No Pre serve, 2-Dose Series ([employer]) 04/06/2021,03/16/2021 COVID-19, MRNA-LNP, PF, 30 M CG/0.3 mL, 12 YRS AND ABOVE, IM ([facility]) 03/29/2024 COVID-19, mRNA, LNP-s, PF, B [...] encounter Miscellaneous Notes * Telephone Encounter - Emma Perez CPhT - 09/30/2024 1:21 PM EST Pt requesting HIGH PRIORITY due to out of med Pt already picked rx on 09/19/24 for a 10 day supply Pt stated he needs more refills Did you pend patient's preferred pharmacy and medication before forwarding?yes Pharmacy: [facility], [address] Refused Prescriptions: Disp Refills Cyclobenzaprine HCl 5 MG Oral Tablet (Flex*30 Tab*0 Sig: Take 1 Tablet by mouth 3 times a day as needed for Muscle spasms. Last Visit: Visit date not found (in office), Visit date not found (telemedicine) Next Visit: Visit date not found If no future appointments scheduled, and last appointment is greater than a year ago, please schedule patient for a follow-up appointment Last date the medication was ordered: 09/19/24 Is this request for a controlled substance?No [...] Labs: Lab Results Component Value Date/Time CREAT 2.2 (H) 08/24/2024 11:24 AM CREAT 3.25 (A) 06/14/2024 12:00 AM CREAT 1.3 (H) 05/04/2020 03:11 PM POTASSIUM 4.9 08/24/2024 11:24 AM POTASSIUM 5.5 (A) 06/14/2024 12:00 AM POTASSIUM 4.0 05/04/2020 03:11 PM LDL 113 01/15/2024 12:19 PM ALT 9 (L) 08/24/2024 11:24 AM ALT 13 05/04/2020 03:11 PM HGBA1C 6.8 (H) 06/06/2024 01:49 PM HGBA1C 5.3 12/14/2020 01:23 PM * Telephone Encounter - Nav Shukla LPN - 09/27/2024 10:45 AM ESTRefused Prescriptions: Disp Refills Cyclobenzaprine HCl 5 MG Oral Tablet (Flex*30 Tab*0 Sig: Take 1Tablet by mouth 3 times a day as needed for Muscle spasms.Refused By: NAV SHUKLA for Refusal: Duplicate Request * Telephone Encounter - Nav Shukla LPN - 09/27/2024 10:45 AM EST Script sent to pharm on 09/19/24 * Telephone Encounter - Deepthi Bonilla OSA - 09/26/2024 6:24 PM ESTPending Prescriptions: Disp Refills Cyclobenzaprine HCl 5 MG Oral Tablet (Flex*30 Tab*0 Sig: Take 1Tablet by mouth 3 times a day as needed for Muscle spasms. documented in this encounter Plan of Treatment Upcoming Encounters Date Type Department Care Team (Late st Contact Info) Description 10/14/2024 8:15 AM EST Cardiac Studies Cardiac Studies, [address] [place] [id number] 01/09/2025 9:20 AM EST Office Visit Family Practice [address] [place] [address] Pedro Pablo Gaspar MD [address] [place] [address] 03/14/2025 8:00 AM EDT Office Visit Cardiology, [facility] [address] [place] [address] Darlene Tomas CRNP [address] [place] [address] Health Maintenance Due Date Last Done Comments DISCUSS TOBACCO CESSATION (REFER TO SMARTSET #1880) 1970 Pneumococcal Vaccine: Pediatrics (0 to 5 [...] Additional history exists CKD HGB USE SMARTSET 49383 08/24/202508/24, 08/24/2024, 06/06/2024, Additional history exists CKD PHOS USE SMARTSET 89390 08/24/2025 10/0 07/2024, 06/22/2024, 06/06/2024, Additional history [...] filedocumented as of this encounter Care Teams Black Ash Burner Operator Relationship Specialty Start Date End Date Pedro Pablo Gaspar MD [address] [place] [address] PCP - General Family Medicine 10/22/20 documented as of this encounter
--- OUTSIDE RECORDS SUMMARY | 2025-03-25 10:06 | External Medical Summary | Summary of Care ---
Author Name Unknown Organization [facility] Address [address] [place] [address] Phone [phone] Care Team Providers Care Environmental Test Technician Name Role Phone Pedro Pablo Gaspar MD Primary Care Provider [phone] Reason for Visit * Reason Onset Date Comments Medication Refill 09/26/2024 Encounter Details Date Type Department Care Team (Late st Contact Info) Description 09/26/2024 Refill Care Coordination and Integration [address], [place] [id number] Pedro Pablo Gaspar MD [address] [place] [address] Allergies No known active allergiesdocumented as of this encounter (statuses as of 09/27/2024) Medications ONETOUCH VERIO STRP 0 Active Lancets (ONETOUCH DELICA PLUS [id number]) [facility] [place] 0 Active FreeStyle Yulissa 2 Sebastian DeviceIndication s:Type 2 diabetes mellitus with hemoglobin A1c goal of less than 7.0% ([facility]) Use as directed. 1 Active Sertraline HCl [...] goal of less than 7.0% ([facility]) Use as directed. Use as directed to [...] Bisulfate 75 MG Oral Tablet (pLAVix)Indicati ons:Old [place] (myocardial infarction),Hist ory of CVA (cerebrovascular accident) [...] 24 Hour (Imdur)Indicatio ns:Coronary artery disease involving [place] coronary artery of [place] heart without angina pectoris Take 1 Tablet [...] as of this encounter (statuses as of 09/27/2024) Active Problems Problem Noted Date Diagnosed Date [...] 05/04/2020 HTN, goal below 130/80 03/26/2020 Old [place] (myocardial infarction) 03/26/2020 Dyslipidemia 03/26/2020 Tobacco use disorder 03/26/2020 History of CVA (cerebrovascular accident) 2019 Type 2 diabetes mellitus wit h hemoglobin A1c goal of less than 7.0% 03/26/2020 Chronic systolic heart failure 03/26/2020 documented as of this encounter (statuses as of 09/27/2024) Resolved Problems Problem Noted Date Diagnosed Date Resolved Date Preoperative general physical examination 02/03/2024 03/29/2024 Stage 3a chronic kidney disease 08/29/2022 09/01/2024 Overview: Per CKD protocol ETD (Eustachian tube dysfunction), bilateral 2 08/29/2022 GÓMEZ (generalized anxiety disorder) 05/08/2021 10/14/2023 Moderate episode of recurren t major depressive disorder 05/08/2021 10/14/2023 Atherosclerotic heart diseas e of [place] coronary artery with other forms of angina pectoris 05/04/2020 08/08/2020 Adjustment disorder with depressed mood 03/26/2020 05/08/2021 Bilateral carotid artery stenosis 03/26/2020 07/06/2020 documented as of this encounter (statuses as of 09/27/2024) Immunizations Name Administration Dates Next Due COVID-19 mRNA, LNP-s, No Pre serve, 2-Dose Series ([employer]) 04/06/2021,03/16/2021 COVID-19, MRNA-LNP, PF, 30 M CG/0.3 mL, 12 YRS AND ABOVE, IM ([facility] 03/29/2024 COVID-19, mRNA, LNP-s, PF, B ooster, [...] encounter Miscellaneous Notes * Telephone Encounter - Huam Shukla LPN - 09/27/2024 10:45 AM ESTRefused Prescriptions: Disp Refills Cyclobenzaprine HCl 5 MG Oral Tablet (Flex*30 Tab*0 Sig: Take 1Tablet by mouth 3 times a day as needed for Muscle spasms.Refused By: HUMA SHUKLA for Refusal: Duplicate Request * Telephone Encounter - Huma Shukla LPN - 09/27/2024 10:45 AM EST [...] 8:15 AM EST Cardiac Studies Cardiac Studies, [facility] [address] [place] [address] 01/09/2025 9:20 AM EST Office Visit Family Practice [facility] [address] [place] [address] Pedro Pablo Gaspar MD [address] [place] [place] [address] 03/14/2025 8:00 AM EDT Office Visit Cardiology, [facility] [address] [place] [place] [address] Darlene Tomas CRNP [address] [place] [address] Health Maintenance Due Date Last Done Comments DISCUSS TOBACCO CESSATION (REFER TO SMARTSET #0656) 1970 Pneumococcal Vaccine: Pediatrics (0 to 5 [...] Additional history exists CKD HGB USE SMARTSET 83399 08/24/202508/24, 08/24/2024, 06/06/2024, Additional history exists CKD PHOS USE SMARTSET 20917 08/24/2025 10/0 07/2024, 06/22/2024, 06/06/2024, Additional history [...] filedocumented as of this encounter Care Teams Environmental Test Technician Relationship Specialty Start Date End Date Pedro Pablo Gaspar MD [address] [place] [place] [address] PCP - General Family Medicine 10/22/20 documented as of this encounter
--- OUTSIDE RECORDS SUMMARY | 2025-03-25 10:06 | External Medical Summary | Summary of Care ---
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 Name Role Phone Pedro Pablo Gaspar MD Primary Care Provider [phone] Reason for Referral * Medication Prior Authorization - Closed Specialty Diagnoses / Procedures Referred By Eugene t Referred To Contact Diagnoses MEDICATION USE AGREEMENT Pedro Pablo Gaspar [facility] [address] [facility] [address] Phone: tel: fax: Referral ID Status Reason Start Date Expiration Date Visits Re quested Visits Authorized [id number] Closed [phone] Reason for Visit * Reason Onset Date Comments Medication Refill 10/03/2024 Encounter Details Date Type Department Care Team (Late st Contact Info) Description 10/03/2024 Refill Family Practice [facility] [address] [facility][1][place] [address] Nora Paul, RN [address], [place] [id number] MEDICATION USE AGREEMENT* Allergies No known active allergiesdocumented as of this encounter (statuses as of 10/03/2024) Medications ONETOUCH VERIO STRP 0 Active Lancets (ONETOUCH DELICA PLUS [id number]) [facility] [place] Active FreeStyle Yulissa 2 [place] DeviceIndication s:Type 2 diabetes mellitus with hemoglobin A1c goal of less than 7.0% ([facility]) Use as directed. 1 Active Sertraline HCl [...] 7.0% ([facility]) Use as directed. Use as directed to [...] Bisulfate 75 MG Oral Tablet (pLAVix)Indicati ons:Old [place] (myocardial infarction),Hist ory of CVA (cerebrovascular accident) [...] 24 Hour (Imdur)Indicatio ns:Coronary artery disease involving [place] coronary artery of [place] heart without angina pectoris Take 1 Tablet [...] 05/08/2021 10/14/2023 Atherosclerotic heart diseas e of [place] coronary artery with other forms of angina pectoris 05/04/2020 08/08/2020 Adjustment disorder with depressed mood 03/26/2020 05/08/2021 Bilateral carotid artery stenosis 03/26/2020 07/06/2020 documented as of this encounter (statuses as of 10/03/2024) Immunizations Name Administration Dates Next Due COVID-19 mRNA, LNP-s, No Pre serve, 2-Dose Series ([employer]) 04/06/2021,03/16/2021 COVID-19, MRNA-LNP, PF, 30 M CG/0.3 mL, 12 YRS AND ABOVE, IM ([employer]) 03/29/2024 COVID-19, mRNA, LNP-s, PF, B ooster, [...] 8:15 AM EST Cardiac Studies Cardiac Studies, [facility] [address] [place] [address] 01/09/2025 9:20 AM EST Office Visit Family Practice [facility] [address] [place] [address] Pedro Pablo Gaspar MD [address] [place] [address] 03/14/2025 8:00 AM EDT Office Visit Cardiology, [facility] [address] [place] [address] Darlene Tomas CRNP [address] [place] [address] Health Maintenance Due Date Last Done Comments DISCUSS TOBACCO CESSATION (REFER TO SMARTSET #8194) 1970 Pneumococcal Vaccine: Pediatrics (0 to 5 [...] 11/2023, 08/29/2022, Additional history exists Albumin/Creatinine Ratio 01/26/2025 024, 08/29/2022, 12/14/2020 GFR 02/22/2025 08/24/2024, 08/0 05/2024, 06/14/2024, Additional history exists Diabetic Eye Exam 06/10/2025 06/10/2024, , 07/07/2022, Additional history exists CKD HGB USE SMARTSET 50652 08/24/202508/24, 08/24/2024, 06/06/2024, Additional history exists CKD PHOS USE SMARTSET 10346 08/24/2025 10/0 07/2024, 06/22/2024, 06/06/2024, Additional history [...] Primary documented in this encounter Care Teams Shower Doors And Panels Fabricator Relationship Specialty Start Date End Date Pedro Pablo Gaspar MD [address] [place] [address] PCP - General Family Medicine 10/22/20 documented as of this encounter
[2025-03-25 10:28] LABS: Basophils # (auto) 0.05 K/uL (0.00-0.20); Basophils % (auto) 0.3 %; Eosinophils # (auto) 0.07 K/uL (0.00-0.50); Eosinophils % (auto) 0.5 %; Hematocrit (blood only) 48.5 % (42.0-52.0); Hemoglobin 17.5 g/dl (14.0-18.0); Immature Granulocytes # (auto) 0.14 K/uL (0.01-0.20); Immature Granulocytes % (auto) 0.9 %; Lymphocytes # (auto) 1.66 K/uL (1.20-3.40); Lymphocytes % (auto) 10.8 %; Mean Corpuscular Hemoglobin 29.8 pg (25.0-34.0); Mean Corpuscular Hgb Conc 36.1 g/dL (32.0-36.0); Mean Corpuscular Volume 82.5 fL (80.0-100.0); Mean Platelet Volume 10.8 fL (9.4-12.4); Monocytes # (auto) 0.96 K/uL (0.11-0.59); Monocytes % (auto) 6.3 %; Neutrophils # (auto) 12.43 K/uL (1.40-6.50); Neutrophils % (auto) 81.2 %; Platelet Count 192 K/uL (130-400); RDW Coefficient of Variation 18.4 % (11.5-14.5); Red Blood Count 5.88 M/uL (4.70-6.10); White Blood Count 15.31 K/ul (4.8-10.8)
[2025-03-25] MEDS: SODIUM CHLORIDE 0.9% 500 ML IV ONE ×2 (10:35→12:10)
[2025-03-25 10:45] LABS: Albumin Globulin Ratio 1.2 (0.9-2); Albumin Level 4.3 gm/dl (3.4-5.0); BUN Creatinine Ratio 13.5 (10-20); Calcium 9.9 mg/dl (8.6-10.3); Creatinine Clr Calc Pharmacy 59.4 ml/min; Globulin 3.7 gm/dl (2.5-4.0); Potassium 4.4 mmol/L (3.5-5.1)
[2025-03-25] MEDS: LABETALOL HCL IV 5 MG/ML 20ML IV STA (10:48)
[2025-03-25 10:51] LABS: Troponin I High Sensitivity 34.8 pg/ml (0-20)
[2025-03-25 10:52] LABS: iSTAT Creatinine 1.5 mg/dl (0.6-1.3); iSTAT Hemoglobin 17.3 g/dl (14.0-18.0); iSTAT Ionized Calcium 1.1 mmol/l (1.12-1.32); iSTAT Potassium 5.1 mmol/L (3.3-5.0)
[2025-03-25 10:57] LABS: Partial Thromboplastin Ratio 1.1; Partial Thromboplastin Time 29 Seconds (21-31); Prothrombin Time 10.9 Seconds (9.0-12.0)
--- NOTE | 2025-03-25 11:01 | Emergency Department Note ---
Impression & Plan Falling, Acute UTI, Weakness, Rhabdomyolysis, Left hand fracture, Leukocytosis, Hypertension ED Provider Note NAME: EDNA TAYLOR AGE: 54 SEX: M : 1970 ARRIVES VIA: Ambulance INFORMANT: [Patient][ems] ED PROVIDER(S): [Samson Monterroso MD] CHIEF COMPLAINT: Fall HISTORY OF PRESENT ILLNESS: Patient is a 54-year-old male who takes Plavix. He has a history of previous CVA. The patient states that he had some alcohol last evening and, has fallen multiple times, once last night, multiple times this morning. He was unable to get up on his own and was found by a neighbor, EMS was called. He lives alone. The patient has lost bowel continence. He complains primarily of some left elbow and left hand pain. He denies any headache or neck pain. No back pain, no rib pain or chest pain, no abdominal pain. No recent fever, chills, cough or congestion. PMHx/PSHx/Social Hx: See Below PHYSICAL EXAM: Primary Survey Airway: Intact Breathing: Breath sounds equal bilaterally. No respiratory distress Circulation: Skin warm, capillary refill less than 2 seconds Disability: Pupils equal and reactive to light Motor Function: Moves all extremities. Sensory: No deficits Secondary Survey GEN: Well developed and well-nourished, mucous membranes dry, covered in stool. HEAD: Normocephalic, atraumatic EYES: Pupils round and reactive to light, conjunctiva clear, extraocular movements intact ENT: No fluid in external acoustic canals, nares patent, oropharynx clear NECK: Midline trachea, no cervical spine tenderness HEART: Regular rate and rhythm LUNGS: Clear to auscultation bilaterally CHEST: Chest wall non-tender, there is a subtle contusion to the area of the mid left clavicle. ABD: No contusions, soft, non-tender, no distention PELVIS: Stable to rock BACK: No step offs or deformities, T-L spine non tender EXT: The patient does have some contusion to the left posterior elbow, left dorsal wrist and dorsal left hand. No gross deformities. There are contusions to the right lateral shoulder. NEURO: No focal motor deficits, no sensory deficits DIFFERENTIAL DIAGNOSIS: Intracranial bleeding, cervical spine injury, intrathoracic or abdominal trauma, dehydration, extremity fracture, rhabdomyolysis, among others. EMERGENCY DEPARTMENT PROCEDURES: C-spine clinically cleared at 1155, once CT imaging returned. Splint Care: After the ortho glass splint was placed by the dock operations supervisor, I examined the splint and confirmed proper application/placement/position. Neurovascular status was intact both proximal and distal to the splinted area. MEDICAL DECISION MAKING: There is a moderate leukocytosis, this white count elevation could be consistent with infection. There was a normal hemoglobin and platelet count. No bandemia. No coagulopathy. Potassium is slightly high but not in need of emergent correction. There was some elevation to the creatinine but this is a baseline finding. No worrisome liver enzyme elevation. No evidence for pancreatitis. Total CK was somewhat elevated consistent with some muscle breakdown and mild rhabdomyolysis. ECG showed LVH and a sinus rhythm, no obvious acute ischemia. Cardiac enzyme testing x 1 was slightly elevated, this elevation could be secondary to cardiac injury or potentially mismatch. Urinalysis does show findings of infection. Alcohol level was undetectable. Chest x-ray did not show any acute traumatic process, no pneumonia. Films of the left elbow, left wrist and left hand were performed. There was a left fifth metacarpal fracture. Brain CT showed no acute bleed or mass effect. C-spine CT showed no acute fracture. Chest and abdominal CTs showed no acute traumatic process. On exam, the patient appeared dehydrated. He was covered in stool. The patient received IV saline, 1 L. He was given IV Zosyn as antibiotic coverage--he has grown a previous Enterococcus on urine testing. Patient was given IV labetalol to help with his blood pressure. The patient did have a splint applied to the left hand to stabilize his fracture. Given his findings, given the fact that he lives alone, given his debilitation and frequent falls, a hospital stay is warranted. The patient's urinary infection certainly may have been a large part of his falling and weakness. I did speak with the patient and case management, the on-call hospitalist was consulted. Of note, the patient is currently resting comfortably, his blood pressure has improved. Prior/Outside records/notes reviewed: Today's EMS notes describing his presentation and transport to this hospital. ECG per my interpretation: Indication was fall. The ECG shows a normal sinus rhythm with a rate of 94. LVH is present there is no acute ST elevation. There is an old inferior infarct. No PVCs. The QTc is 467. Continuous Cardiac Monitoring per my interpretation: An order was placed for continuous cardiac monitoring. The monitor shows a rate of 89 with normal sinus rhythm. Imaging/x-ray results per my interpretation: Chest x-ray does not show CHF or acute traumatic process. Films of the left elbow, left wrist and left hand were performed, there is a fracture of the left fifth metacarpal. No left elbow or left wrist fracture. Chronic Medical/Social conditions affecting care: Lives alone, on Plavix. Care/Management discussed with: Case management, the on-call hospitalist. Level of care consideration(s): After review of the information above and other included data: --I believe the patient requires escalation of care to admission Critical Care Note: I have personally spent 45 minutes of critical care time in the direct management of this patient. This includes bedside care, interpretation of diagnostic studies, and testing, discussion with consultants, patient, and family members, and other required patient management activities. This 45 minutes is in excess of all separately billable procedures. DISPOSITION: Admission Past Med/Surg History Problem List (Updated 03/25/25 @ 13:18 by Samson Monterroso MD) Hypertension (Acute) Leukocytosis (Acute) Left hand fracture (Acute) Rhabdomyolysis (Acute) Weakness (Acute) Acute UTI (Acute) Falling (Acute) History of pulmonary infarction Urinary retention Anemia (Acute) Staphylococcus aureus bacteremia Aspiration pneumonia Ulcer, esophagus Encounter for pre-operative examination Pancreatic pseudocyst Abnormal CT of the abdomen Tachycardia (Acute) Constipation (Acute) Acute urinary retention (Acute) Lower abdominal pain (Acute) LV (left ventricular) mural thrombus not noted on recent ECHO Pneumonia Prolonged QT interval CKD (chronic kidney disease), stage III Elevated LFTs H/O: CVA (cerebrovascular accident) (Acute) Hx of endarterectomy (06/28/20) Right Carotid Endarterectomy with Bovine Patch Angioplasty Dr. Arita 06/28/2020 Ischemic cardiomyopathy Dyslipidemia Abnormal MRI of head MRI 06/15/20 showed MCA infarcts as well as ring enhancement right posterior lobe. Repeat MRI recommended in 3 months. Stenosis of right internal carotid artery with cerebral infarction Depression Chronic ischemic right MCA stroke CAD (coronary artery disease) (~2013) 2014 - NSTEMI s/p BRUCE to RCA Cardiac cath 09/22/23 ([facility])- no stents or bypass (did show three vessel CAD) DM type 2 (diabetes mellitus, type 2) Hgb A1C 12.4 Only on Metformin as of 01/19/24 Carotid stenosis, bilateral s/ right CEA (2019) Hypertension (Chronic) Hx pulmonary embolism 09/08/23- bilateral PEs ; now on anticoagulation Medical History History of solitary pulmonary nodule Abd/pelvis CT 04/26/24: Persistent 1.2 cm nodular opacity within the right lower lobe. This remains indeterminate and a follow-up chest CT in 3 months to ensure resolution is recommended. History of pulmonary embolism 09/08/23- bilateral PEs ; now on anticoagulation Diabetes type 2, controlled diabetic medications on hold currently 2/2 recent BRUNA on CKD; sugars stable History of alcohol abuse stopped drinking ~2020 CAD (coronary artery disease) inferior wall MS 2013 followed by stent in RCA Anxiety HTN (hypertension) Depression Stenosis of right internal carotid artery with cerebral infarction now with 'mild cognitive disability' and L sided weakness; CVA 03/2020, R CEA 06/2020 Dyslipidemia Ischemic cardiomyopathy EF improved to 55-60% on 05/27/24 ECHO Chronic kidney disease (CKD), stage III (moderate) History of upper gastrointestinal bleeding (02/2024) 03/13-03/18/24 [facility] admission; had EGD: severe esophagitis and esophageal ulcer Hx of esophageal ulcer (04/2024) 03/13-03/18/24 [facility] admission; had EGD: severe esophagitis and esophageal ulcer History of aspiration pneumonia (04/2024) resolved (noted during 04/25-04/29/24 [facility] admission) Hx of chest pain pt called cardiology 08/15/24 c/o intermittent chest pain; awaiting appointment Hematuria Anemia chronic; received 2 units PRBCs during 03/13-03/18/24 [facility] admission (UGI bleed, esophageal ulcers) Recurrent pulmonary embolism Per chart review, pt had b/l PE 09/08/23; no mention of previous PE ASCVD (arteriosclerotic cardiovascular disease) MS 2013, CVA 2019, 'multiple TIAs' Left ventricular apical thrombus not noted on 04/2024 or 05/2024 ECHO Chronic HFrEF (heart failure with reduced ejection fraction) EF improved to 55-60% on 05/27/24 ECHO BPH (benign prostatic hyperplasia) Penile pain multiple ED visits 08/2024 2/2 pain associated with giles catheter Giles catheter in place History of suicidal ideation (~2020) voluntary admission [facility] Hx of congestive heart failure (~10/2023) Hx of pancreatitis no recent issues; pt has not drank ETOH since approx 2020 History of cerebrovascular accident (~2019) x5 "multiple mini strokes" [facility], no current neurologist, left arm "almost useless" and left side "doesn't work quite right" Most recent CVA 03/2020 Surgical History Hx of endarterectomy (06/28/20) Right Carotid Endarterectomy with Bovine Patch Angioplasty Dr. Arita 06/28/2020 Hx of cardiac catheterization (~09/2023) [facility], no stents S/P drug eluting coronary stent placement (~2013) [facility], currently follows at [facility] Family History Mother , age 68 from metastatic lung cancer Lung cancer Father No problems noted. 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[employer], 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 Feels Safe at Home: Yes Assistive Devices: None Allergies Allergies Allergy/AdvReac Type Severity Reaction Status Date / Time No Known Allergies Allergy Verified 08/23/24 18:38 Home Meds Home Medications Medication Instructions Recorded Confirmed clopidogrel 75 mg tablet (Plavix) 75 mg PO QAM 06/05/21 03/25/25 atorvastatin 20 mg tablet 20 mg PO QAM 09/08/23 03/25/25 apixaban 5 mg tablet (Eliquis) 5 mg PO Q12H 10/08/23 09/12/24 flash glucose sensor (FreeStyle #1 ea 01/01/24 08/09/24 Yulissa 2 Sensor kit) sertraline 25 mg tablet 25 mg PO QAM 01/01/24 09/12/24 mirtazapine 30 mg tablet 30 mg PO HS 01/11/24 09/12/24 pantoprazole 40 mg tablet,delayed 40 mg PO QAM 04/25/24 03/25/25 release acetaminophen 500 mg tablet 500 mg PO Q6H PRN Pain 08/23/24 09/12/24 buspirone 10 mg tablet 0 mg PO BID 08/23/24 09/12/24 furosemide 20 mg tablet 20 mg PO DAILY 08/23/24 03/25/25 ibuprofen 200 mg tablet 200 mg PO Q6H PRN Pain 08/23/24 09/12/24 metoprolol succinate 25 mg 25 mg PO BID 08/23/24 09/12/24 tablet,extended release 24 hr oxybutynin chloride 5 mg tablet 5 mg PO BID 08/23/24 09/12/24 tamsulosin 0.4 mg capsule 0.4 mg PO QA 08/23/24 03/25/25 Imdur 30 mg PO DAILY 09/12/24 09/12/24 amlodipine 5 mg tablet 5 mg PO DAILY 03/25/25 03/25/25 ferrous sulfate 325 mg (65 mg 325 mg PO DAILY 03/25/25 03/25/25 iron) tablet (FeroSul) isosorbide mononitrate 30 mg 30 mg PO DAILY 03/25/25 03/25/25 tablet,extended release 24 hr lorazepam 0.5 mg tablet 0.5 mg PO BID PRN Anxiety 03/25/25 03/25/25 lorazepam 1 mg tablet 1 mg PO HS 03/25/25 03/25/25 metformin 500 mg tablet 500 mg PO BID 03/25/25 03/25/25 sertraline 50 mg tablet 50 mg PO DAILY 03/25/25 03/25/25 Previous Rx's Medication Instructions Recorded ropinirole 0.25 mg tablet 0.25 mg PO HS #30 tabs 10/12/23 ampicillin 500 mg capsule 500 mg PO BID 6 days #12 caps 08/30/24 Results & Data (ED) Vital Signs Vital Signs - 24 hr 03/25/25 10:04 03/25/25 10:24 03/25/25 10:28 Temperature 36.9 C Temperature Source Oral Pulse Rate 95 H Pulse Rate [Apical] 88 Respiratory Rate 14 18 Blood Pressure 189/135 H Blood Pressure [Right Arm] 180/102 H Blood Pressure Mean 153 Blood Pressure Mean [Right Arm] 128 Pulse Oximetry 94 95 Oxygen Delivery Method Room Air Room Air Room Air Sepsis New/Unexplained Change in Mental Status No Sepsis Action Taken by Nursing No Action Required 03/25/25 10:31 03/25/25 11:00 03/25/25 11:00 Temperature Temperature Source Pulse Rate 89 74 Pulse Rate [Apical] Respiratory Rate 20 Blood Pressure 157/87 H Blood Pressure [Right Arm] Blood Pressure Mean 114 Blood Pressure Mean [Right Arm] Pulse Oximetry 95 Oxygen Delivery Method Room Air Sepsis New/Unexplained Change in Mental Status Sepsis Action Taken by Nursing 03/25/25 11:03 03/25/25 11:55 03/25/25 12:00 Temperature Temperature Source Pulse Rate 76 Pulse Rate [Apical] 76 76 Respiratory Rate 19 12 Blood Pressure Blood Pressure [Right Arm] 169/92 H 166/89 H Blood Pressure Mean Blood Pressure Mean [Right Arm] 117 114 Pulse Oximetry 95 94 Oxygen Delivery Method Room Air Room Air Sepsis New/Unexplained Change in Mental Status Sepsis Action Taken by Retirement Medications Current Medication List: was personally reviewed by me Laboratory Data Attestation: I reviewed the patient's lab results. 03/25/25 10:08 03/25/25 10:08 Lab Results 03/25/25 03/25/25 03/25/25 Range/Units 10:08 10:41 10:50 WBC 15.31 H (4.8-10.8) K/ul RBC 5.88 (4.70-6.10) M/uL Hgb 17.5 (14.0-18.0) g/dl POC Hgb 17.3 (14.0-18.0) g/dl Hct 48.5 (42.0-52.0) % POC Hct 51 (42-52) % MCV 82.5 (80.0-100.0) fL MCH 29.8 (25.0-34.0) pg MCHC 36.1 H (32.0-36.0) g/dL RDW Std Deviation 52.0 H (36.4-46.3) fL RDW Coeff of Dione 18.4 H (11.5-14.5) % Plt Count 192 (130-400) K/uL MPV 10.8 (9.4-12.4) fL Immature Gran % (Auto) 0.9 % Neut % (Auto) 81.2 % Lymph % (Auto) 10.8 % Branch % (Auto) 6.3 % Eos % (Auto) 0.5 % Baso % (Auto) 0.3 % Neut # (Auto) 12.43 H (1.40-6.50) K/uL Lymph # (Auto) 1.66 (1.20-3.40) K/uL Branch # (Auto) 0.96 H (0.11-0.59) K/uL Eos # (Auto) 0.07 (0.00-0.50) K/uL Baso # (Auto) 0.05 (0.00-0.20) K/uL Immature Gran # (Auto) 0.14 (0.01-0.20) K/uL PT 10.9 (9.0-12.0) Seconds INR 1.0 (0.9-1.1) APTT 29 (21-31) Seconds PTT Ratio 1.1 POC Sodium 137 (135-144) mmol/L Sodium 135 L (136-145) mmol/L POC Potassium 5.1 H (3.3-5.0) mmol/L Potassium 4.4 (3.5-5.1) mmol/L POC Chloride 102 (101-112) mmol/L Chloride 103 (98-107) mmol/L Carbon Dioxide 23 (21-32) mmol/L POC Total CO2 23 L (24-31) mmol/L Anion Gap 9 (3-11) POC Anion Gap 18.0 (16-25) mmol/L POC BUN 25 H (7-18) mg/dl BUN 19 (6-23) mg/dl Creatinine 1.41 H (0.6-1.4) mg/dl POC Creatinine 1.5 H (0.6-1.3) mg/dl Est Cr Clr Drug Dosing 59.4 ml/min eGFR 59.22 BUN/Creatinine Ratio 13.5 (10-20) Glucose 159 H (70-99(Fasting)) mg/dl POC Glucose (other) 148 H (70-99) mg/dl Calcium 9.9 (8.6-10.3) mg/dl POC Ioniz Calcium Juan 1.10 L (1.12-1.32) mmol/l Total Bilirubin 1.0 (0.2-1.0) mg/dl AST 32 (13-39) U/L ALT 16 (7-52) U/L Alkaline Phosphatase 84 (34-104) U/L Total Creatine Kinase 809 H (30-223) U/L Troponin I High Sens 34.8 H (0-20) pg/ml Total Protein 8.0 (6.0-8.3) gm/dl Albumin 4.3 (3.4-5.0) gm/dl Globulin 3.7 (2.5-4.0) gm/dl Albumin/Globulin Ratio 1.2 (0.9-2) Lipase 48 (11-82) U/L Urine Color Yellow Urine Appearance Clear (Clear) Urine pH 6.0 (4.5-7.5) Ur Specific [place] 1.011 (1.000-1.030) Urine Protein 1+ H (Negative) Urine Glucose (UA) 1+ H (Negative) Urine Ketones Negative (Negative) Urine Blood 1+ H (Negative) Urine Nitrite Positive A (Negative) Urine Bilirubin Negative (Negative) Urine Urobilinogen Negative (Negative) Ur Leukocyte Esterase 3+ H (Negative) Urine WBC (Auto) >50 H (0-5) /hpf Urine RBC (Auto) 0-2 (0-2) /hpf U Hyaline Cast (Auto) 0-2 (0-2) /lpf U Epithel Cells (Auto) 0-2 (0-2) /hpf Urine Bacteria (Auto) 4+ H (None Seen) Ethyl Alcohol mg/dL < 10.0 (<10.0) mg/dl 03/25/25 Range/Units 12:14 WBC (4.8-10.8) K/ul RBC (4.70-6.10) M/uL Hgb (14.0-18.0) g/dl POC Hgb (14.0-18.0) g/dl Hct (42.0-52.0) % POC Hct (42-52) % MCV (80.0-100.0) fL MCH (25.0-34.0) pg MCHC (32.0-36.0) g/dL RDW Std Deviation (36.4-46.3) fL RDW Coeff of Dione (11.5-14.5) % Plt Count (130-400) K/uL MPV (9.4-12.4) fL Immature Gran % (Auto) % Neut % (Auto) % Lymph % (Auto) % Branch % (Auto) % Eos % (Auto) % Baso % (Auto) % Neut # (Auto) (1.40-6.50) K/uL Lymph # (Auto) (1.20-3.40) K/uL Branch # (Auto) (0.11-0.59) K/uL Eos # (Auto) (0.00-0.50) K/uL Baso # (Auto) (0.00-0.20) K/uL Immature Gran # (Auto) (0.01-0.20) K/uL PT (9.0-12.0) Seconds INR (0.9-1.1) APTT (21-31) Seconds PTT Ratio POC Sodium (135-144) mmol/L Sodium (136-145) mmol/L POC Potassium (3.3-5.0) mmol/L Potassium (3.5-5.1) mmol/L POC Chloride (101-112) mmol/L Chloride (98-107) mmol/L Carbon Dioxide (21-32) mmol/L POC Total CO2 (24-31) mmol/L Anion Gap (3-11) POC Anion Gap (16-25) mmol/L POC BUN (7-18) mg/dl BUN (6-23) mg/dl Creatinine (0.6-1.4) mg/dl POC Creatinine (0.6-1.3) mg/dl Est Cr Clr Drug Dosing ml/min eGFR BUN/Creatinine Ratio (10-20) Glucose (70-99(Fasting)) mg/dl POC Glucose (other) (70-99) mg/dl Calcium (8.6-10.3) mg/dl POC Ioniz Calcium Juan (1.12-1.32) mmol/l Total Bilirubin (0.2-1.0) mg/dl AST (13-39) U/L ALT (7-52) U/L Alkaline Phosphatase (34-104) U/L Total Creatine Kinase (30-223) U/L Troponin I High Sens 39.9 H (0-20) pg/ml Total Protein (6.0-8.3) gm/dl Albumin (3.4-5.0) gm/dl Globulin (2.5-4.0) gm/dl Albumin/Globulin Ratio (0.9-2) Lipase (11-82) U/L Urine Color Urine Appearance (Clear) Urine pH (4.5-7.5) Ur Specific [place] (1.000-1.030) Urine Protein (Negative) Urine Glucose (UA) (Negative) Urine Ketones (Negative) Urine Blood (Negative) Urine Nitrite (Negative) Urine Bilirubin (Negative) Urine Urobilinogen (Negative) Ur Leukocyte Esterase (Negative) Urine WBC (Auto) (0-5) /hpf Urine RBC (Auto) (0-2) /hpf U Hyaline Cast (Auto) (0-2) /lpf U Epithel Cells (Auto) (0-2) /hpf Urine Bacteria (Auto) (None Seen) Ethyl Alcohol mg/dL (<10.0) mg/dl Administered Medications Discontinued Medications Sodium Chloride (Nss) 500 mls @ 999 mls/hr IV .Q31M ONE Stop: 03/25/25 10:44 Last Infusion: 03/25/25 11:45 Dose: Infused Documented By: Admin: 03/25/25 10:35 Dose: 999 mls/hr Documented By: LAKEISHA Piperacillin Sod/Tazobactam Sod (Zosyn) 4.5 gm in 100 mls @ 200 mls/hr IV NOW ONE Stop: 03/25/25 12:20 Last Admin: 03/25/25 12:16 Dose: 200 mls/hr Documented By: LAKEISHA Sodium Chloride (Nss) 500 mls @ 999 mls/hr IV .Q31M ONE Stop: 03/25/25 12:23 Last Admin: 03/25/25 12:10 Dose: 999 mls/hr Documented By: LAKEISHA Ioversol (Optiray 320 100ml) 94 ml IV ONCE ONE Stop: 03/25/25 11:26 Last Admin: 03/25/25 11:26 Dose: 94 ml Documented By: MICHEAL Labetalol HCl (Labetalol Hcl Iv 5 Mg/Ml 20ml) 10 mg IV NOW STA Stop: 03/25/25 10:15 Last Admin: 03/25/25 10:48 Dose: 10 mg Documented By: [facility] Imaging Data Radiologist's Impression: Abdomen/Pelvis CT 03/25/25 10:[address] WITH IV CONTRAST CT DOSE: 3404 HISTORY: Trauma TECHNIQUE: Multiaxial CT images of the abdomen and pelvis were performed following the IV administration of 90 cc of Optiray, A dose lowering technique was utilized adhering to the principles of ALARA. COMPARISON STUDY: 04/26/2024 FINDINGS: ABDOMEN: Liver, bladder, spleen, pancreas, kidneys, and adrenal glands show no evidence of acute injury. There are a few tiny cysts at the kidneys. There are scattered atherosclerotic calcifications. No abdominal aortic aneurysm or injury seen. Pelvis: Prostate is mildly enlarged. Urinary bladder is mildly distended. No bowel in summation or obstruction is seen. No free fluid or free air. No pelvic hematoma. Osseous structures: No acute fracture seen at the visualized osseous structures. IMPRESSION: No acute injury seen at the abdomen or pelvis. ACT 112: Negative or not required by law. The above report was generated using voice recognition software. It may contain grammatical, syntax or spelling errors. Electronically signed by: Greg Collier M.D. 03/25/2025 11:[address] 03/25/25 10:[address] WITH CONTRAST HISTORY: Trauma TECHNIQUE: Multiaxial CT images of the chest were performed following the IV administration of 90 cc of Optiray. A dose lowering technique was utilized adhering to the principles of ALARA. COMPARISON STUDY: 09/08/2023 FINDINGS: There is mild atelectasis or scarring in the lung bases. There is no pulmonary consolidation or pleural effusion. No pneumothorax. No mediastinal hematoma. No pericardial effusion. There are diffuse coronary artery calcifications. No thoracic aortic injury or dissection. No pulmonary embolism. No acute fracture seen at the visualized osseous structures. IMPRESSION: No acute injury seen at the chest. ACT 112: Negative or not required by law. Electronically signed by: Greg Collier M.D. 03/25/2025 11:50 AM Chest X-Ray 03/25/25 10:14 XR chest 1V portable CLINICAL HISTORY: Trauma COMPARISON STUDY: 09/12/2024 FINDINGS: Heart size and pulmonary vasculature are normal. No effusion, consolidation, or pneumothorax. IMPRESSION: No acute findings. ACT 112: Negative or not required by law. Electronically signed by: Greg Collier M.D. 03/25/2025 11:23 AM Elbow X-Ray 03/25/25 10:14 XR elbow LT min 3V routine CLINICAL HISTORY: fall COMPARISON: 06/17/2021 FINDINGS: There is a stable small chronic density adjacent to the coronoid process tip consistent with sequela of old injury. No acute fracture or dislocation seen at the left elbow. IMPRESSION: No acute fracture seen. ACT 112: Negative or not required by law. Electronically signed by: Greg Collier M.D. 03/25/2025 11:25 AM Hand X-Ray 03/25/25 10:14 XR wrist LT w scaphoid, XR hand LT min 3V routine CLINICAL HISTORY: fall COMPARISON: None FINDINGS: There is an acute oblique fracture extending from the proximal to distal shaft of the fifth metacarpal with minimal displacement. No other fracture or dislocation seen at the left hand or left wrist. IMPRESSION: Acute fracture fifth metacarpal. ACT 112: Negative or not required by law. Electronically signed by: Greg Collier M.D. 03/25/2025 11:26 AM Wrist X-Ray 03/25/25 10:14 XR wrist LT w scaphoid, XR hand LT min 3V routine CLINICAL HISTORY: fall COMPARISON: None FINDINGS: There is an acute oblique fracture extending from the proximal to distal shaft of the fifth metacarpal with minimal displacement. No other fracture or dislocation seen at the left hand or left wrist. IMPRESSION: Acute fracture fifth metacarpal. ACT 112: Negative or not required by law. Electronically signed by: Greg Collier M.D. 03/25/2025 11:[address] 03/25/25 10:15 CT cervical spine wo con CT DOSE: 3403.78 mGy.cm CLINICAL HISTORY: Trauma. COMPARISON: 06/07/2021 TECHNIQUE: Multiple axial CT images of the cervical spine were obtained without contrast. A dose lowering technique was utilized adhering to the principles of ALARA. FINDINGS: There is progressive degenerative disc disease at the lower cervical spine. No fracture or subluxation. There are carotid bulb calcifications. IMPRESSION: No cervical spine fracture seen. ACT 112: Negative or not required by law. The above report was generated using voice recognition software. It may contain grammatical, syntax or spelling errors. Electronically signed by: Greg Collier M.D. 03/25/2025 11:[address] 03/25/25 10:15 CT head/brain wo con CLINICAL HISTORY: Trauma. TECHNIQUE: Multiple axial CT images of the head were obtained without contrast. A dose lowering technique was utilized adhering to the principles of ALARA. 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 Stable superimposed chronic small vessel ischemic changes. No intracranial hemorrhage seen. No mass effect, midline shift, or hydrocephalus. No skull fracture seen. Visualized paranasal sinuses and mastoid air cells are clear. IMPRESSION: Stable exam. No acute findings seen. ACT 112: Negative or not required by law. The above report was generated using voice recognition software. It may contain grammatical, syntax or spelling errors. Electronically signed by: Greg Collier M.D. 03/25/2025 11:44 AM Discharge Plan Visit Data Chief Complaint: Fall Stated Complaint: FALLS, BRUISING IN HAND & ELBOW (INJURY ALERT) ED Provider: Samson Monterroso Discharge Problem: Falling, Acute UTI, Weakness, Rhabdomyolysis, Left hand fracture, Leukocytosis, Hypertension Patient Disposition: Admitted As Inpatient Condition: Fair Forms Stand Alone Forms: [facility] Prescriptions Prescriptions: No Action ampicillin 500 mg capsule 500 mg PO BID 6 Days Qty: 12 0RF Rx Instructions: start 3 days prior to procedure, then 3 days after until completed sertraline 25 mg tablet 25 mg PO QAM (DME) [employer] 2 Sensor Kit See Rx Instructions .ROUTE .MEDSUPPLY Qty: 1 Rx Instructions: As directed Eliquis 5 mg tablet 5 mg PO Q12H Hold Instructions: Resume on 09/15/24. ropinirole 0.25 mg Tablet 0.25 mg PO HS Qty: 30 0RF clopidogrel [Plavix] 75 mg Tablet 75 mg PO QAM Hold Instructions: Resume on 09/15/24. atorvastatin 20 mg tablet 20 mg PO QAM Hold Instructions: Resume on 10/14/23. mirtazapine 30 mg Tablet 30 mg PO HS Imdur 30 mg PO DAILY pantoprazole 40 mg tablet,delayed release (DR/EC) 40 mg PO QAM acetaminophen 500 mg Tablet 500 mg PO Q6H PRN (Reason: Pain) tamsulosin 0.4 mg capsule 0.4 mg PO QAM buspirone 10 mg tablet 0 mg PO BID Rx Instructions: Pt unsure of strength ibuprofen 200 mg Tablet 200 mg PO Q6H PRN (Reason: Pain) furosemide 20 mg tablet 20 mg PO DAILY metoprolol succinate 25 mg tablet extended release 24 hr 25 mg PO BID oxybutynin chloride 5 mg tablet 5 mg PO BID metformin 500 mg tablet 500 mg PO BID isosorbide mononitrate 30 mg tablet extended release 24 hr 30 mg PO DAILY amlodipine 5 mg tablet 5 mg PO DAILY lorazepam 0.5 mg tablet 0.5 mg PO BID PRN (Reason: Anxiety) ferrous sulfate [FeroSul] 325 mg (65 mg iron) tablet 325 mg PO DAILY lorazepam 1 mg tablet 1 mg PO HS sertraline 50 mg tablet 50 mg PO DAILY Referrals Referrals: Ashley Helton [Primary Care Provider] - Discharge Problem: Rhabdomyolysis Qualifiers: Rhabdomyolysis type: traumatic Encounter type: initial encounter Qualified Code(s): T79.6XXA - Traumatic ischemia of muscle, initial encounter Left hand fracture Qualifiers: Encounter type: initial encounter Fracture type: closed Qualified Code(s): S 62.92XA - Unspecified fracture of left wrist and hand, initial encounter for closed fracture Leukocytosis Qualifiers: Leukocytosis type: unspecified Qualified Code(s): D72.829 - Elevated white blood cell count, unspecified Hypertension Qualifiers: Hypertension type: unspecified Qualified Code(s): I10 - Essential (primary) hypertension
[2025-03-25 11:08] LABS: Appearance Urine Clear (Clear); Bacteria Urine Automated 4+ (None Seen); Bilirubin Urine Negative (Negative); Blood Urine 1+ (Negative); Cast Urine Automated 0-2 /lpf (0-2); Color Urine Yellow; Epithelial Cell Urine Auto 0-2 /hpf (0-2); Glucose Urine UA 1+ (Negative); Ketones Urine Negative (Negative); Leukocyte Esterase Urine 3+ (Negative); Nitrite Urine Positive (Negative); Protein Urine 1+ (Negative); RBC Urine Automated 0-2 /hpf (0-2); Specific Gravity Urine 1.011 (1.000-1.030); Urobilinogen Urine Negative (Negative); WBC Urine Automated >50 /hpf (0-5)
--- NOTE | 2025-03-25 11:24 | XRay Report ---
XR chest 1V portable CLINICAL HISTORY: Trauma COMPARISON STUDY: 09/12/2024 FINDINGS: Heart size and pulmonary vasculature are normal. No effusion, consolidation, or pneumothora x. IMPRESSION: No acute findings. ACT 112: Negative or not required by law. Electronically signed by: Greg Collier M.D. 03/25/2025 11:23 AM
[2025-03-25] MEDS: OPTIRAY 320 100ml IV ONE (11:26)
--- NOTE | 2025-03-25 11:26 | XRay Report ---
XR elbow LT min 3V routine CLINICAL HISTORY: fall COMPARISON: 06/17/2021 FINDINGS: There is a stable small chronic density adjacent to the coronoid process tip consistent wi th sequela of old injury. No acute fracture or dislocation seen at the left elbow. IMPRESSION: No acute fracture seen. ACT 112: Negative or not required by law. Electronically signed by: Greg Collier M.D. 03/25/2025 11:25 AM
--- NOTE | 2025-03-25 11:28 | XRay Report ---
XR wrist LT w scaphoid, XR hand LT min 3V routine CLINICAL HISTORY: fall COMPARISON: None FINDINGS: There is an acute oblique fracture extending from the proximal to distal shaft of the fift h metacarpal with minimal displacement. No other fracture or dislocation seen at the left hand or lef t wrist. IMPRESSION: Acute fracture fifth metacarpal. ACT 112: Negative or not required by law. Electronically signed by: Greg Collier M.D. 03/25/2025 11:26 AM
--- NOTE | 2025-03-25 11:47 | CT Scan Report ---
CT head/brain wo con CLINICAL HISTORY: Trauma. TECHNIQUE: Multiple axial CT images of the head were obtained without contrast. A dose lowering tech nique was utilized adhering to the principles of ALARA. 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 Stable superimposed chronic small ve ssel ischemic changes. No intracranial hemorrhage seen. No mass effect, midline shift, or hydrocephal us. No skull fracture seen. Visualized paranasal sinuses and mastoid air cells are clear. IMPRESSION: Stable exam. No acute findings seen. ACT 112: Negative or not required by law. The above report was generated using voice recognition software. It may contain grammatical, syntax o r spelling errors. Electronically signed by: Greg Collier M.D. 03/25/2025 11:44 AM
--- NOTE | 2025-03-25 11:48 | CT Scan Report ---
CT cervical spine wo con CT DOSE: 3403.78 mGy.cm CLINICAL HISTORY: Trauma. COMPARISON: 06/07/2021 TECHNIQUE: Multiple axial CT images of the cervical spine were obtained without contrast. A dose low ering technique was utilized adhering to the principles of ALARA. FINDINGS: There is progressive degenerative disc disease at the lower cervical spine. No fracture or subluxation. There are carotid bulb calcifications. IMPRESSION: No cervical spine fracture seen. ACT 112: Negative or not required by law. The above report was generated using voice recognition software. It may contain grammatical, syntax o r spelling errors. Electronically signed by: Greg Collier M.D. 03/25/2025 11:47 AM
--- NOTE | 2025-03-25 11:52 | CT Scan Report ---
CHEST CT WITH CONTRAST HISTORY: Trauma TECHNIQUE: Multiaxial CT images of the chest were performed following the IV administration of 90 cc of Optiray. A dose lowering technique was utilized adhering to the principles of ALARA. COMPARISON STUDY: 09/08/2023 FINDINGS: There is mild atelectasis or scarring in the lung bases. There is no pulmonary consolidatio n or pleural effusion. No pneumothorax. No mediastinal hematoma. No pericardial effusion. There are d iffuse coronary artery calcifications. No thoracic aortic injury or dissection. No pulmonary embolism . No acute fracture seen at the visualized osseous structures. IMPRESSION: No acute injury seen at the chest. ACT 112: Negative or not required by law. Electronically signed by: Greg Collier M.D. 03/25/2025 11:50 AM
--- NOTE | 2025-03-25 11:59 | CT Scan Report ---
ABDOMEN AND PELVIS CT WITH IV CONTRAST CT DOSE: 3404 HISTORY: Trauma TECHNIQUE: Multiaxial CT images of the abdomen and pelvis were performed following the IV administrat ion of 90 cc of Optiray, A dose lowering technique was utilized adhering to the principles of ALARA. COMPARISON STUDY: 04/26/2024 FINDINGS: ABDOMEN: Liver, bladder, spleen, pancreas, kidneys, and adrenal glands show no evidence of acute inju ry. There are a few tiny cysts at the kidneys. There are scattered atherosclerotic calcifications. No abdominal aortic aneurysm or injury seen. Pelvis: Prostate is mildly enlarged. Urinary bladder is mildly distended. No bowel in summation or ob struction is seen. No free fluid or free air. No pelvic hematoma. Osseous structures: No acute fracture seen at the visualized osseous structures. IMPRESSION: No acute injury seen at the abdomen or pelvis. ACT 112: Negative or not required by law. The above report was generated using voice recognition software. It may contain grammatical, syntax o r spelling errors. Electronically signed by: Greg Collier M.D. 03/25/2025 11:57 AM
[2025-03-25] MEDS: PIPERACILLIN/TAZOBACTAM 4.5 GM/100 ML BAG IV ONE (12:16)
--- NOTE | 2025-03-25 13:00 | History & Physical Report ---
Date of Service March 25, 2025 Assessment & Plan (1) Fall: (2) Rhabdomyolysis: (3) Left hand fracture: (4) Alcohol abuse: (5) Acute UTI: (6) Elevated troponin: (7) Chronic HFrEF (heart failure with reduced ejection fraction): (8) CAD (coronary artery disease): (9) Hypertension: (10) Dyslipidemia: (11) H/O: CVA (cerebrovascular accident): (12) DM type 2 (diabetes mellitus, type 2): (13) CKD (chronic kidney disease), stage III: (14) Anxiety: (15) Depression: (16) GERD (gastroesophageal reflux disease): (17) BPH (benign prostatic hyperplasia): (18) Hx pulmonary embolism: Plan 54 year old male with PMH significant for HFrEF (EF 35% in Sep 2024), CAD s/p stent, ischemic cardiomyopathy, HTN, dyslipidemia, DM II, CKD III, GERD, BPH, history of PE, history of CVA, depression/anxiety, and history of alcohol abuse who presents to the ED today after multiple falls at home. Fall Left hand fracture Rhabdomyolysis Recurrent falls at home likely due to alcohol use and concurrent ativan use Head CT, cervical spine CT, chest CT, CXR, left elbow x-ray all negative for acute injury Left hand and wrist x-ray revealed acute fracture of left fifth metacarpal Splinted in ED and consult ortho for further recommendations PRN tylenol for pain CK elevated to 809 - recheck in am Orthostatic vitals PT/OT consults Alcohol abuse Alcohol level <10 today AWSS protocol with PRN ativan per protocol Counseled on alcohol cessation Acute UTI UA +nitrite, leuk esterase, WBC, bacteria Leukocytosis and patient endorses dysuria yesterday IV ampicillin given history of enterococcus faecalis Follow urine culture Elevated troponin Patient denies chest pain and EKG unremarkable Trend q6hr Chronic HFrEF, CAD, HTN, dyslipidemia Follows with Cardiology (last seen Aug 2024) Continue amlodipine, atorvastatin, furosemide, imdur per home dosing History of CVA Continue plavix per home dosing DM II On metformin at home - holding while inpt SSI while inpt CKD III Follows with Nephrology (last seen Nov 2024) Baseline creat around Anxiety Patient takes ativan 1mg qhs and 0.5mg bid PRN at home Reduced nightly dose to 0.5mg due to recurrent falls Consider dose reduction at discharge Depression Continue sertraline per home dosing GERD Continue pantoprazole per home dosing BPH Continue tamsulosin per home dosing History of PE Occurred in August 2023 Previously on Eliquis 5mg bid but patient reports no longer taking due to insurance coverage DVT Prophylaxis: SQ Heparin Code Status: FULL CODE - As per discussion at bedside with the patient. PCP: Ashley EVANS Disposition: [facility] Patient seen in collaboration with Dr Louie. Please see addendum. I spent a total of 75 minutes coordinating, documenting and providing care for this patient excluding time spent in the performance of separately billed services or time spent by another provider/QHP. Admission and Anticipated Discharge Date Admission Date: 03/25/2025 History of Present Illness Chief Complaint: fall Primary Care Provider: Ashley Helton 54 year old male with PMH significant for HFrEF (EF 35% in Sep 2024), CAD s/p stent, ischemic cardiomyopathy, HTN, dyslipidemia, DM II, CKD III, GERD, BPH, history of PE, history of CVA, depression/anxiety, and history of alcohol abuse who presents to the ED today after multiple falls at home. He reports that he fell last night and needed to call his neighbor to get up. Also fell this morning and needed to call his neighbor again to get up. States he felt like he lost all the strength in his legs. Notes that he fell on his left side this morning. Denies hitting his head or loss of consciousness. Reports alcohol use last night where he drank a couple of shots and a couple of beers. He denies chest pain, palpitations, SOB, fevers, chills, cough, cold symptoms, abdominal pain, N/V/D, hematuria, hematochezia, urinary frequency, edema. He notes intermittent dysuria with last occurrence yesterday. He lives alone and usually ambulates without any assistive devices. Allergies Allergy/AdvReac Type Severity Reaction Status Date / Time No Known Allergies Allergy Verified 08/23/24 18:38 Home Medications Medication Instructions Recorded Confirmed Type clopidogrel 75 mg tablet (Plavix) 75 mg PO QAM 06/05/21 03/25/25 History atorvastatin 20 mg tablet 20 mg PO QAM 09/08/23 03/25/25 History ropinirole 0.25 mg tablet 0.25 mg PO HS #30 tabs 10/12/23 03/25/25 Rx flash glucose sensor (FreeStyle #1 ea 01/01/24 08/09/24 History Yulissa 2 Sensor kit) pantoprazole 40 mg tablet,delayed 40 mg PO QAM 04/25/24 03/25/25 History release acetaminophen 500 mg tablet 500 mg PO Q6H PRN Pain 08/23/24 03/25/25 History furosemide 20 mg tablet 20 mg PO DAILY 08/23/24 03/25/25 History ibuprofen 200 mg tablet 200 mg PO Q6H PRN Pain 08/23/24 03/25/25 History tamsulosin 0.4 mg capsule 0.4 mg PO QAM 08/23/24 03/25/25 History amlodipine 5 mg tablet 5 mg PO DAILY 03/25/25 03/25/25 History ferrous sulfate 325 mg (65 mg 325 mg PO DAILY 03/25/25 03/25/25 History iron) tablet (FeroSul) isosorbide mononitrate 30 mg 30 mg PO DAILY 03/25/25 03/25/25 History tablet,extended release 24 hr lorazepam 0.5 mg tablet 0.5 mg PO BID PRN Anxiety 03/25/25 03/25/25 History lorazepam 1 mg tablet 1 mg PO HS 03/25/25 03/25/25 History metformin 500 mg tablet 500 mg PO BID 03/25/25 03/25/25 History sertraline 50 mg tablet 50 mg PO DAILY 03/25/25 03/25/25 History Past Med/Surg History Problem List (Updated 03/25/25 @ 14:11 by CRISTINA Kellogg) Elevated troponin Alcohol abuse Fall Anxiety GERD (gastroesophageal reflux disease) BPH (benign prostatic hyperplasia) Chronic HFrEF (heart failure with reduced ejection fraction) EF 35% in Sep 2024 Hypertension (Acute) Leukocytosis (Acute) Left hand fracture (Acute) Rhabdomyolysis (Acute) Weakness (Acute) Acute UTI (Acute) Falling (Acute) CKD (chronic kidney disease), stage III H/O: CVA (cerebrovascular accident) (Acute) Ischemic cardiomyopathy Dyslipidemia Depression CAD (coronary artery disease) (~2013) 2013 - NSTEMI s/p BRUCE to RCA Cardiac cath 09/22/23 ([facility])- no stents or bypass (did show three vessel CAD) DM type 2 (diabetes mellitus, type 2) Hgb A1C 12.4 Only on Metformin as of 01/19/24 Hx pulmonary embolism 09/08/23- bilateral PEs ; now on anticoagulation Medical History (Updated 03/25/25 @ 14:11 by CRISTINA Kellogg) History of pulmonary infarction Urinary retention Anemia Staphylococcus aureus bacteremia Aspiration pneumonia Ulcer, esophagus Encounter for pre-operative examination Pancreatic pseudocyst Abnormal CT of the abdomen Tachycardia Constipation Acute urinary retention Lower abdominal pain LV (left ventricular) mural thrombus not noted on recent ECHO Pneumonia Prolonged QT interval Elevated LFTs Abnormal MRI of head MRI 06/15/20 showed MCA infarcts as well as ring enhancement right posterior lobe. Repeat MRI recommended in 3 months. Stenosis of right internal carotid artery with cerebral infarction Chronic ischemic right MCA stroke Carotid stenosis, bilateral s/ right CEA (2019) Hypertension History of solitary pulmonary nodule Abd/pelvis CT 04/26/24: Persistent 1.2 cm nodular opacity within the right lower lobe. This remains indeterminate and a follow-up chest CT in 3 months to ensure resolution is recommended. History of pulmonary embolism 09/08/23- bilateral PEs ; now on anticoagulation Diabetes type 2, controlled diabetic medications on hold currently 2/2 recent BRUNA on CKD; sugars stable History of alcohol abuse stopped drinking ~2020 CAD (coronary artery disease) inferior wall [place] 2013 followed by stent in RCA HTN (hypertension) Depression Stenosis of right internal carotid artery with cerebral infarction now with 'mild cognitive disability' and L sided weakness; CVA 03/2020, R CEA 06/2020 Dyslipidemia Ischemic cardiomyopathy EF improved to 55-60% on 05/27/24 ECHO Chronic kidney disease (CKD), stage III (moderate) History of upper gastrointestinal bleeding (02/2024) 03/13-03/18/24 [facility] admission; had EGD: severe esophagitis and esophageal ulcer Hx of esophageal ulcer (04/2024) 03/13-03/18/24 [facility] admission; had EGD: severe esophagitis and esophageal ulcer History of aspiration pneumonia (04/2024) resolved (noted during 04/25-04/29/24 [facility] admission) Hx of chest pain pt called cardiology 08/15/24 c/o intermittent chest pain; awaiting appointment Hematuria Anemia chronic; received 2 units PRBCs during 03/13-03/18/24 [facility] admission (UGI bleed, esophageal ulcers) Recurrent pulmonary embolism Per chart review, pt had b/l PE 09/08/23; no mention of previous PE ASCVD (arteriosclerotic cardiovascular disease) [place] 2013, CVA 2019, 'multiple TIAs' Left ventricular apical thrombus not noted on 04/2024 or 05/2024 ECHO Penile pain multiple ED visits 08/2024 2/2 pain associated with giles catheter Giles catheter in place History of suicidal ideation (~2020) voluntary admission [facility] Hx of congestive heart failure (~10/2023) Hx of pancreatitis no recent issues; pt has not drank ETOH since approx 2020 History of cerebrovascular accident (~2019) x5 "multiple mini strokes" [facility], no current neurologist, left arm "almost useless" and left side "doesn't work quite right" Most recent CVA 03/2020 Surgical History Hx of endarterectomy (06/28/20) Right Carotid Endarterectomy with Bovine Patch Angioplasty Dr. Arita 06/28/2020 Hx of endarterectomy (06/28/20) Right Carotid Endarterectomy with Bovine Patch Angioplasty Dr. Arita 06/28/2020 Hx of cardiac catheterization (~09/2023) [facility], no stents S/P drug eluting coronary stent placement (~2013) [facility], currently follows at [facility] Cardio Family History Mother , age 68 from metastatic lung cancer Lung cancer Father No problems noted. 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[employer], 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 Feels Safe at Home: Yes Assistive Devices: None Review of Systems Review of Systems: All systems reviewed & are unremarkable except as noted in HPI & below Physical Exam Physical Exam: refer to exam by Dr Louie Results & Data Results & Data Vital Signs (Past 12 Hours) Vital Signs Temp Pulse Pulse Resp BP BP Pulse Ox 03/25/25 12:00 76 12 166/89 H 94 03/25/25 11:55 76 19 169/92 H 95 03/25/25 11:03 76 03/25/25 11:00 157/87 H 03/25/25 11:00 74 20 95 03/25/25 10:31 89 03/25/25 10:28 88 18 180/102 H 95 03/25/25 10:24 03/25/25 10:04 36.9 C 95 H 14 189/135 H 94 O2 Del Method 03/25/25 12:00 Room Air 03/25/25 11:55 Room Air 03/25/25 11:03 03/25/25 11:00 03/25/25 11:00 Room Air 03/25/25 10:31 03/25/25 10:28 Room Air 03/25/25 10:24 Room Air 03/25/25 10:04 Room Air Laboratory Results Short CBC 03/25/25 Range/Units 10:08 WBC 15.31 H (4.8-10.8) K/ul Hgb 17.5 (14.0-18.0) g/dl Hct 48.5 (42.0-52.0) % Plt Count 192 (130-400) K/uL BMP 03/25/25 10:08 Sodium 135 L Potassium 4.4 Chloride 103 Carbon Dioxide 23 BUN 19 Creatinine 1.41 H Glucose 159 H Calcium 9.9 Cardiac Enzymes 03/25/25 Range/Units 10:08 Total Creatine Kinase 809 H (30-223) U/L Liver Function 03/25/25 Range/Units 10:08 Total Bilirubin 1.0 (0.2-1.0) mg/dl AST 32 (13-39) U/L ALT 16 (7-52) U/L Alkaline Phosphatase 84 (34-104) U/L Albumin 4.3 (3.4-5.0) gm/dl Urine 03/25/25 Range/Units 10:50 Urine Color Yellow Urine Appearance Clear (Clear) Urine pH 6.0 (4.5-7.5) Ur Specific [place] 1.011 (1.000-1.030) Urine Protein 1+ H (Negative) Urine Glucose (UA) 1+ H (Negative) I have independently reviewed and interpreted patient's admitting labs including CBC, CMP, PTT, PT/INR, mag, troponin, CK, UA. Diagnostic Findings Abdomen/Pelvis CT 03/25/25 10:[address] WITH IV CONTRAST CT DOSE: 3404 HISTORY: Trauma TECHNIQUE: Multiaxial CT images of the abdomen and pelvis were performed following the IV administration of 90 cc of Optiray, A dose lowering technique was utilized adhering to the principles of ALARA. COMPARISON STUDY: 04/26/2024 FINDINGS: ABDOMEN: Liver, bladder, spleen, pancreas, kidneys, and adrenal glands show no evidence of acute injury. There are a few tiny cysts at the kidneys. There are scattered atherosclerotic calcifications. No abdominal aortic aneurysm or injury seen. Pelvis: Prostate is mildly enlarged. Urinary bladder is mildly distended. No bowel in summation or obstruction is seen. No free fluid or free air. No pelvic hematoma. Osseous structures: No acute fracture seen at the visualized osseous structures. IMPRESSION: No acute injury seen at the abdomen or pelvis. ACT 112: Negative or not required by law. The above report was generated using voice recognition software. It may contain grammatical, syntax or spelling errors. Electronically signed by: Greg Collier M.D. 03/25/2025 11:[address] 03/25/25 10:[address] WITH CONTRAST HISTORY: Trauma TECHNIQUE: Multiaxial CT images of the chest were performed following the IV administration of 90 cc of Optiray. A dose lowering technique was utilized adhering to the principles of ALARA. COMPARISON STUDY: 09/08/2023 FINDINGS: There is mild atelectasis or scarring in the lung bases. There is no pulmonary consolidation or pleural effusion. No pneumothorax. No mediastinal hematoma. No pericardial effusion. There are diffuse coronary artery calcifications. No thoracic aortic injury or dissection. No pulmonary embolism. No acute fracture seen at the visualized osseous structures. IMPRESSION: No acute injury seen at the chest. ACT 112: Negative or not required by law. Electronically signed by: Greg Collier M.D. 03/25/2025 11:50 AM Chest X-Ray 03/25/25 10:14 XR chest 1V portable CLINICAL HISTORY: Trauma COMPARISON STUDY: 09/12/2024 FINDINGS: Heart size and pulmonary vasculature are normal. No effusion, consolidation, or pneumothorax. IMPRESSION: No acute findings. ACT 112: Negative or not required by law. Electronically signed by: Greg Collier M.D. 03/25/2025 11:23 AM Elbow X-Ray 03/25/25 10:14 XR elbow LT min 3V routine CLINICAL HISTORY: fall COMPARISON: 06/17/2021 FINDINGS: There is a stable small chronic density adjacent to the coronoid process tip consistent with sequela of old injury. No acute fracture or dislocation seen at the left elbow. IMPRESSION: No acute fracture seen. ACT 112: Negative or not required by law. Electronically signed by: Greg Collier M.D. 03/25/2025 11:25 AM Hand X-Ray 03/25/25 10:14 XR wrist LT w scaphoid, XR hand LT min 3V routine CLINICAL HISTORY: fall COMPARISON: None FINDINGS: There is an acute oblique fracture extending from the proximal to distal shaft of the fifth metacarpal with minimal displacement. No other fracture or dislocation seen at the left hand or left wrist. IMPRESSION: Acute fracture fifth metacarpal. ACT 112: Negative or not required by law. Electronically signed by: Greg Collier M.D. 03/25/2025 11:26 AM Wrist X-Ray 03/25/25 10:14 XR wrist LT w scaphoid, XR hand LT min 3V routine CLINICAL HISTORY: fall COMPARISON: None FINDINGS: There is an acute oblique fracture extending from the proximal to distal shaft of the fifth metacarpal with minimal displacement. No other fracture or dislocation seen at the left hand or left wrist. IMPRESSION: Acute fracture fifth metacarpal. ACT 112: Negative or not required by law. Electronically signed by: Greg Collier M.D. 03/25/2025 11:[address] 03/25/25 10:15 CT cervical spine wo con CT DOSE: 3403.78 mGy.cm CLINICAL HISTORY: Trauma. COMPARISON: 06/07/2021 TECHNIQUE: Multiple axial CT images of the cervical spine were obtained without contrast. A dose lowering technique was utilized adhering to the principles of ALARA. FINDINGS: There is progressive degenerative disc disease at the lower cervical spine. No fracture or subluxation. There are carotid bulb calcifications. IMPRESSION: No cervical spine fracture seen. ACT 112: Negative or not required by law. The above report was generated using voice recognition software. It may contain grammatical, syntax or spelling errors. Electronically signed by: Greg Collier M.D. 03/25/2025 11:[address] 03/25/25 10:15 CT head/brain wo con CLINICAL HISTORY: Trauma. TECHNIQUE: Multiple axial CT images of the head were obtained without contrast. A dose lowering technique was utilized adhering to the principles of ALARA. 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 Stable superimposed chronic small vessel ischemic changes. No intracranial hemorrhage seen. No mass effect, midline shift, or hydrocephalus. No skull fracture seen. Visualized paranasal sinuses and mastoid air cells are clear. IMPRESSION: Stable exam. No acute findings seen. ACT 112: Negative or not required by law. The above report was generated using voice recognition software. It may contain grammatical, syntax or spelling errors. Electronically signed by: Greg Collier M.D. 03/25/2025 11:44 AM ECG Additional Comments: I have independently reviewed and interpreted patient's admitting EKG which revealed: NSR at a rate of 94bpm Code Status & VTE Plan Code Status Full Code Supervising Physician Co-Signing Physician Notes Presents after recurrent falls last night and this AM Reported he fell multiple times and could not get up. Denied head trauma, LOC, palpitation, Chest pain, SOB Does not use ambulatory aides at baseline ROS notable for dysuria Use ativan 1mg HS and 0.5mg bid prn Significant alcohol use. Last drink was last night On exam, General: Not in distress Eyes: PERRL, conjunctivae normal, not pale, anicteric sclerae, EOM intact bilaterally ENMT: External ear and nose normal, oropharynx normal Respiratory: Normal respiratory effort, no respiratory distress, lungs clear to auscultation, no crackles and no wheezes Cardiovascular: RRR S1 S2 Gastrointestinal (Abdomen): Abdomen is not distended, soft, non-tender to palpation, no guarding, no palpable hepatosplenomegaly, normal bowel sounds Musculoskeletal: Left forearm and hand splinted/bandaged Neurologic: Alert and oriented x 3, No focal weakness, sensation grossly intact Psychiatric: Euthymic affect Falls likely related to alcohol use in the setting of ativan use Alcohol abuse Left 5th metacarpal fracture UTI Counseled regarding alcohol use [facility] protocol Reduce home ativan to 0.5mg HS. Plan to wean off ativan over time if possible PT/OT H/o enterococcus UTI in the past. Will do ampicillin for now while awaiting Urine culture Trend trop Other plans as detailed by Marleny EVANS I spent a total of 40 minutes coordinating, documenting and providing care for this patient excluding time spent in performance of separately billed services (2) Rhabdomyolysis Encounter type: initial encounter Rhabdomyolysis type: traumatic Qualified Code(s): T79.6XXA - Traumatic ischemia of muscle, initial encounter (3) Left hand fracture Encounter type: initial encounter Fracture type: closed Qualified Code(s): S62.92XA - Unspecified fracture of left wrist and hand, initial encounter for closed fracture (9) Hypertension Hypertension type: unspecified Qualified Code(s): I10 - Essential (primary) hypertension
[2025-03-25] MEDS: LIDOCAINE 5% 1 PATCH TD STA (14:21)
[2025-03-25] MEDS ORDERED: GLUCOSE 10 TAB/TUBE PO PRN (15:23)
[2025-03-25] MEDS ORDERED: POLYETHYLENE (MIRALAX) 17 GM PACK PO PRN (15:23)
[2025-03-25] MEDS ORDERED: GLUCAGON FOR INJ 1 MG VIAL SQ PRN (15:23)
[2025-03-25] MEDS ORDERED: CARBOHYDRATES FOR HYPOGLYCEMIA PO PRN (15:23)
[2025-03-25] MEDS ORDERED: LORazepam 1 MG TAB PO PRN ×3 (15:23)
[2025-03-25] MEDS ORDERED: DEXTROSE 50% 50 ML SYRINGE IV PRN (15:23)
[2025-03-25] MEDS ORDERED: GLUCOSE 40% GEL 15 GM TUBE PO PRN (15:23)
[2025-03-25] MEDS ORDERED: Ativan PO Alcohol Withdrawal--Active Protocol PO PRN (15:23)
[2025-03-25] MEDS: HEPARIN SOD 5,000 UNIT/0.5 ML VIAL SQ SCH (16:40)
[2025-03-25] MEDS: FOLIC ACID 1 MG TAB PO SCH (16:46)
[2025-03-25] MEDS: THIAMINE HCL 100 MG TAB PO SCH (16:46)
[2025-03-25] MEDS: INSULIN ASPART PER UNIT CHARGE SC SCH (17:01)
[2025-03-25] MEDS: AMPICILLIN 2,000 MG in SODIUM CHLOR 0.9% MINI-B 100 ML IV SCH (17:50)
[2025-03-25] MEDS: ACETAMINOPHEN 325 MG TAB PO PRN (18:19)
[2025-03-25] MEDS: oxyCODONE HCL IR 5 MG TAB (IMMEDIATE RELEASE) PO STA (19:45)
[2025-03-25] MEDS: LORazepam 0.5 MG TAB PO SCH (20:37)
[2025-03-25] MEDS: rOPINIRole HCL 0.25 MG TABLET PO SCH (20:38)
[2025-03-25] MEDS: HYDROmorphone INJ 0.5 MG/0.5 ML SYR IV STA (23:22)
[2025-03-26] MEDS: LORazepam 0.5 MG TAB PO STA (04:14)
[2025-03-26] MEDS: HYDROmorphone INJ 0.5 MG/0.5 ML SYR IV STA ×3 (04:55→21:30)
--- NOTE | 2025-03-26 07:08 | Electrocardiogram Report ---
Test Reason : Blood Pressure : */* mmHG Vent. Rate : 94 BPM Atrial Rate : 94 BPM P-R Int : 170 ms QRS Dur : 100 ms QT Int : 374 ms P-R-T Axes : 17 -38 49 degrees QTcB Int : 467 ms Normal sinus rhythm Left axis deviation Moderate voltage criteria for LVH, may be normal variant Poor R wave progression, consider anterior TN vs. lead placement vs. LVH Inferior infarct (cited on or before 04-May-2021) Abnormal ECG When compared with ECG of 26-May-2024 14:43, Vent. rate has increased by 31 bpm Confirmed by Vaibhav Espinoza ([id number]) on 03/26/2025 7:07:58 AM Referred By: Confirmed By: Vaibhav Espinoza
[2025-03-26 08:06] LABS: Hematocrit (blood only) 45.4 % (42.0-52.0); Hemoglobin 15.7 g/dl (14.0-18.0); Mean Corpuscular Hemoglobin 29.8 pg (25.0-34.0); Mean Corpuscular Hgb Conc 34.6 g/dL (32.0-36.0); Mean Corpuscular Volume 86.3 fL (80.0-100.0); Mean Platelet Volume 10.2 fL (9.4-12.4); Platelet Count 150 K/uL (130-400); RDW Coefficient of Variation 18.5 % (11.5-14.5); RDW Standard Deviation 56.4 fL (36.4-46.3); Red Blood Count 5.26 M/uL (4.70-6.10); White Blood Count 7.89 K/ul (4.8-10.8)
[2025-03-26 08:28] LABS: Albumin Globulin Ratio 1.2 (0.9-2); Albumin Level 3.9 gm/dl (3.4-5.0); BUN Creatinine Ratio 11.2 (10-20); Bilirubin,Total 0.9 mg/dl (0.2-1.0); Calcium 9.4 mg/dl (8.6-10.3); Creatinine Clr Calc Pharmacy 53.3 ml/min; Globulin 3.2 gm/dl (2.5-4.0); Potassium 3.9 mmol/L (3.5-5.1); Total Protein 7.1 gm/dl (6.0-8.3)
[2025-03-26] MEDS: FERROUS SULFATE 325 MG TAB PO SCH (08:35)
[2025-03-26] MEDS: PANTOprazole 40 MG TAB PO SCH (08:35)
[2025-03-26] MEDS: TAMSULOSIN HCL 0.4 MG CAP PO SCH (08:35)
[2025-03-26] MEDS: ISOSORBIDE MONO EXTENDED REL 30 MG TABCR PO SCH (08:35)
[2025-03-26] MEDS: ATORVASTATIN 20 MG TAB PO SCH (08:35)
[2025-03-26] MEDS: amLODIPine BESYLATE 5 MG TAB PO SCH (08:35)
[2025-03-26] MEDS: CLOPIDOGREL BISULFATE 75 MG TAB PO SCH (08:35)
[2025-03-26] MEDS: SERTRALINE HCL 50 MG TABLET PO SCH (08:35)
[2025-03-26] MEDS: FUROSEMIDE 20 MG TAB PO SCH (08:36)
--- NOTE | 2025-03-26 09:47 | Orthopedic Consultation ---
Date of Service March 26, 2025 Assessment & Plan (1) Fall: He is doing well with his hand he is not having any pain. The fracture seen on the x-ray is about 3 to 4 months old and is almost fully healed. He can make a full fist. He does not need to wear splint. He can do full activities with his hand without restrictions. He can follow-up with orthopedics on an as-needed basis. History of Present Illness Reason for Consultation: Recurrent falls. Requesting Physician: . Attending Physician: Nayna Dobson MD Deyvi is a pleasant 54-year-old male who has been dealing with alcohol abuse and recurrent falls. He also has a history of multiple strokes which has affected his left upper extremity. He says about 3 to 4 months ago he fell and injured his left hand. He says he was having some ulnar-sided hand pain at that time but it has since gotten much better. Unfortunately he has had other falls. He went to the emergency room. He had a small abrasion on his left hand so a left hand x-ray was taken. The hand x-ray showed a prior fifth metacarpal fracture. He was placed in a splint in the emergency room and orthopedics was consulted to evaluate and treat.. Allergies Allergy/AdvReac Type Severity Reaction Status Date / Time No Known Allergies Allergy Verified 08/23/24 18:38 Home Medications Medication Instructions Recorded Confirmed Type clopidogrel 75 mg tablet (Plavix) 75 mg PO QAM 06/05/21 03/25/25 History atorvastatin 20 mg tablet 20 mg PO QAM 09/08/23 03/25/25 History ropinirole 0.25 mg tablet 0.25 mg PO HS #30 tabs 10/12/23 03/25/25 Rx flash glucose sensor (FreeStyle #1 ea 01/01/24 08/09/24 History Yulissa 2 Sensor kit) pantoprazole 40 mg tablet,delayed 40 mg PO QAM 04/25/24 03/25/25 History release acetaminophen 500 mg tablet 500 mg PO Q6H PRN Pain 08/23/24 03/25/25 History furosemide 20 mg tablet 20 mg PO DAILY 08/23/24 03/25/25 History ibuprofen 200 mg tablet 200 mg PO Q6H PRN Pain 08/23/24 03/25/25 History tamsulosin 0.4 mg capsule 0.4 mg PO QAM 08/23/24 03/25/25 History amlodipine 5 mg tablet 5 mg PO DAILY 03/25/25 03/25/25 History ferrous sulfate 325 mg (65 mg 325 mg PO DAILY 03/25/25 03/25/25 History iron) tablet (FeroSul) isosorbide mononitrate 30 mg 30 mg PO DAILY 03/25/25 03/25/25 History tablet,extended release 24 hr lorazepam 0.5 mg tablet 0.5 mg PO BID PRN Anxiety 03/25/25 03/25/25 History lorazepam 1 mg tablet 1 mg PO HS 03/25/25 03/25/25 History metformin 500 mg tablet 500 mg PO BID 03/25/25 03/25/25 History sertraline 50 mg tablet 50 mg PO DAILY 03/25/25 03/25/25 History Past Med/Surg History Problem List Elevated troponin Alcohol abuse Fall Anxiety GERD (gastroesophageal reflux disease) BPH (benign prostatic hyperplasia) Chronic HFrEF (heart failure with reduced ejection fraction) EF 35% in Sep 2024 Hypertension (Acute) Leukocytosis (Acute) Left hand fracture (Acute) Rhabdomyolysis (Acute) Weakness (Acute) Acute UTI (Acute) Falling (Acute) CKD (chronic kidney disease), stage III H/O: CVA (cerebrovascular accident) (Acute) Ischemic cardiomyopathy Dyslipidemia Depression CAD (coronary artery disease) (~2013) 2013 - NSTEMI s/p BRUCE to RCA Cardiac cath 09/22/23 ([facility])- no stents or bypass (did show three vessel CAD) DM type 2 (diabetes mellitus, type 2) Hgb A1C 12.4 Only on Metformin as of 01/19/24 Hx pulmonary embolism 09/08/23- bilateral PEs ; now on anticoagulation Medical History History of pulmonary infarction Urinary retention Anemia Staphylococcus aureus bacteremia Aspiration pneumonia Ulcer, esophagus Encounter for pre-operative examination Pancreatic pseudocyst Abnormal CT of the abdomen Tachycardia Constipation Acute urinary retention Lower abdominal pain LV (left ventricular) mural thrombus not noted on recent ECHO Pneumonia Prolonged QT interval Elevated LFTs Abnormal MRI of head MRI 06/15/20 showed MCA infarcts as well as ring enhancement right posterior lobe. Repeat MRI recommended in 3 months. Stenosis of right internal carotid artery with cerebral infarction Chronic ischemic right MCA stroke Carotid stenosis, bilateral s/ right CEA (2019) Hypertension History of solitary pulmonary nodule Abd/pelvis CT 04/26/24: Persistent 1.2 cm nodular opacity within the right lower lobe. This remains indeterminate and a follow-up chest CT in 3 months to ensure resolution is recommended. History of pulmonary embolism 09/08/23- bilateral PEs ; now on anticoagulation Diabetes type 2, controlled diabetic medications on hold currently 2/2 recent BRUNA on CKD; sugars stable History of alcohol abuse stopped drinking ~2020 CAD (coronary artery disease) inferior wall MO 2013 followed by stent in RCA HTN (hypertension) Depression Stenosis of right internal carotid artery with cerebral infarction now with 'mild cognitive disability' and L sided weakness; CVA 03/2020, R CEA 06/2020 Dyslipidemia Ischemic cardiomyopathy EF improved to 55-60% on 05/27/24 ECHO Chronic kidney disease (CKD), stage III (moderate) History of upper gastrointestinal bleeding (02/2024) 03/13-03/18/24 [facility] admission; had EGD: severe esophagitis and esophageal ulcer Hx of esophageal ulcer (04/2024) 03/13-03/18/24 [facility] admission; had EGD: severe esophagitis and esophageal ulcer History of aspiration pneumonia (04/2024) resolved (noted during 04/25-04/29/24 [facility] admission) Hx of chest pain pt called cardiology 08/15/24 c/o intermittent chest pain; awaiting appointment Hematuria Anemia chronic; received 2 units PRBCs during 03/13-03/18/24 [facility] admission (UGI bleed, esophageal ulcers) Recurrent pulmonary embolism Per chart review, pt had b/l PE 09/08/23; no mention of previous PE ASCVD (arteriosclerotic cardiovascular disease) [place] 2013, CVA 2019, 'multiple TIAs' Left ventricular apical thrombus not noted on 04/2024 or 05/2024 ECHO Penile pain multiple ED visits 08/2024 2/2 pain associated with giles catheter Giles catheter in place History of suicidal ideation (~2020) voluntary admission [facility] Hx of congestive heart failure (~10/2023) Hx of pancreatitis no recent issues; pt has not drank ETOH since approx 2020 History of cerebrovascular accident (~2019) x5 "multiple mini strokes" [facility], no current neurologist, left arm "almost useless" and left side "doesn't work quite right" Most recent CVA 03/2020 Surgical History Hx of endarterectomy (06/28/20) Right Carotid Endarterectomy with Bovine Patch Angioplasty Dr. Arita 06/28/2020 Hx of endarterectomy (06/28/20) Right Carotid Endarterectomy with Bovine Patch Angioplasty Dr. Arita 06/28/2020 Hx of cardiac catheterization (~09/2023) [facility], no stents S/P drug eluting coronary stent placement (~2013) [facility], currently follows at [facility] Family History Mother , age 68 from metastatic lung cancer Lung cancer Father No problems noted. Social History Smoking Status: Current every day smoker Tobacco Type: Cigarettes Cigarettes Per Day: <1 PPD, advised; Second Hand Exposure: No; Do You Dip or Chew Tobacco: No; Hx Alcohol Use: Yes Alcohol type: beer Hx Substance Use: No Preferred Language: Citizen Of [place] Communication Ability: Effective Graphic Technician Required: No Beliefs That Will Affect Care: None marital status: Single Current Living Situation: Alone Current Living Situation Comment: lives in an apartment alone current occupational status: previously employed current occupation: [employer] employee 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 Physical Exam Physical exam of the left hand shows no pain in the area of the metacarpal. He is able to slowly make a full fist without pain. He is limited a little bit due to the stroke. He has a small abrasion over the third MCP joint. He does not have any pain to palpation the fifth metacarpal.. Constitutional WD/WN, vitals as above Eyes PERRL, conjunctivae normal, anicteric sclerae ENMT external ear and nose normal, oropharynx normal Neck trachea midline, no thyromegaly Respiratory normal respiratory effort Cardiovascular RRR, no murmur, no edema Gastrointestinal (Abdomen) normal bowel sounds, soft, nontender, no hepatosplenomegaly Psychiatric A+Ox3, euthymic affect Results & Data Results & Data Laboratory Results . Diagnostic Findings X-rays of the left hand were reviewed and it shows a healing fracture of the fifth metacarpal of the left hand. There is no displacement. PG Care Time/CCT Total # of Minutes Spent Total Time Spent with Patient: Total time spent is greater than 50% in coordination of care (as documented) at patient's floor/unit and/or counseling patient: Coding Level of Care Code 81705 IN/OBS CONSULT LVL 4,60M Diagnoses Fall W19.XXXA
[2025-03-26] MEDS: LIDOCAINE 5% 1 PATCH TD SCH (11:02)
[2025-03-26] MEDS: SODIUM CHLORIDE 0.9% 1,000 ML IV SCH (11:02)
--- NOTE | 2025-03-26 11:41 | Hospitalist Progress Note ---
Date of Service March 26, 2025 Assessment & Plan (1) Fall: (2) Rhabdomyolysis: (3) Left hand fracture: (4) Alcohol abuse: (5) Acute UTI: (6) Elevated troponin: (7) Chronic HFrEF (heart failure with reduced ejection fraction): (8) CAD (coronary artery disease): (9) Hypertension: (10) Dyslipidemia: (11) H/O: CVA (cerebrovascular accident): (12) DM type 2 (diabetes mellitus, type 2): (13) CKD (chronic kidney disease), stage III: (14) Anxiety: (15) Depression: (16) GERD (gastroesophageal reflux disease): (17) BPH (benign prostatic hyperplasia): (18) Hx pulmonary embolism: Plan 54 year old male with PMH significant for HFrEF (EF 35% in Sep 2024), CAD s/p stent, ischemic cardiomyopathy, HTN, dyslipidemia, DM II, CKD III, GERD, BPH, history of PE, history of CVA, depression/anxiety, and history of alcohol abuse who presents to the ED today after multiple falls at home. Fall Left hand fracture Rhabdomyolysis Recurrent falls at home likely due to alcohol use and concurrent ativan use Head CT, cervical spine CT, chest CT, CXR, left elbow x-ray all negative for acute injury Left hand and wrist x-ray revealed acute fracture of left fifth metacarpal Splinted in ED and consult ortho Ortho states fracture is old/healing and splint can be removed, he has no restrictions, follow up ortho prn PRN tylenol for pain CK elevated to 809, downtrended to 373 will continue IVF for additional 1L and repeat CK in a.m. Hold atorvastatin in setting of rhabdo, resume when CK normalizes Orthostatic vitals x 1 PT/OT consults pt requesting IV dilaudid, will add lidocaine patches and schedule tylenol which is how he controls pain at home, recommend avoid IV narcotics given freq falls Alcohol abuse Alcohol level <10 today AWSS protocol with PRN ativan per protocol Counseled on alcohol cessation no s/sx of withdrawal, pt reports 3-4 beers and 1 shot of jagermeister 2-3x weekly Acute UTI UA +nitrite, leuk esterase, WBC, bacteria, wbc 15k on admission with associated dysuria Initial urine culture growing > 100k Klebsiella Initially started on IV ampicillin, will broaden to IV Ceftriaxone for kleb coverage Follow urine culture Elevated troponin Patient denies chest pain and EKG unremarkable Trop flat, suspect trop leak in setting of rhabdo Chronic HFrEF, CAD, HTN, dyslipidemia Follows with Cardiology (last seen Aug 2024) Continue amlodipine, atorvastatin, furosemide, imdur per home dosing daily weight, I and O monitor volume status closely with IVF in setting of rhabdo, currently euvolemic, weight 75kg History of CVA Continue plavix, place statin on hold DM II On metformin at home - holding while inpt SSI while inpt, a1c in a.m. last a1c 7.8 04/2024 CKD III Follows with Nephrology (last seen Nov 2024) Baseline creat around 1.2-1.4 Anxiety Patient takes ativan 1mg qhs and 0.5mg bid PRN at home Reduced nightly dose to 0.5mg due to recurrent falls Consider dose reduction at discharge Depression Continue sertraline per home dosing GERD Continue pantoprazole per home dosing BPH Continue tamsulosin per home dosing History of PE Occurred in August 2023 Previously on Eliquis 5mg bid but patient reports no longer taking due to insurance coverage He is interested in alternative agent discussed with patient risks vs benefits given his freq fall risk At this point I would defer this to patients PCP to work with his insurance to determine best agent given fall risk/alcohol use, he doesn't drive so warfarin may be difficult DVT Prophylaxis: SQ Heparin Code Status: FULL CODE - As per discussion at bedside with the patient. PCP: Ashley EVANS Disposition: admit to med [facility], will downgrade to medical, suspect pt can d/c in next 1-2 days pending urine culture and PT/OT clearance Patient seen in collaboration with Dr Louie. Please see addendum. I spent a total of 51 minutes coordinating, documenting and providing care for this patient excluding time spent in the performance of separately billed services or time spent by another provider/QHP. Admission and Anticipated Discharge Date Admission Date: March 25, 2025 Supervising Physician Co-Signing Physician Notes I have reviewed the advanced practitioner's documentation, and I agree with, and take responsibility for the plan of care Subjective Pt seen and examined in room 277-1. He offers no acute concerns. He denies any current pain; however he sates he has been getting pain down his bilateral legs that will come and go. It starts in his buttock and his go down to his calves at times. It is made worse with movement. He reports drinking 3-4 beers and 1 shot of jagermeister 2-3x weekly. He feels his falls are 2/2 alcohol consumption. He denies dizziness, vertigo, f/c/s, chest pain, sob, n/v/d, abd pain. He states he has been off of eliquis for a few months due to cost. He has a CGM in place. BSG have been mostly controlled. He reports he lives alone and typically does not use an assist device to walk. He does not drive. Review of Systems Review of Systems: All systems reviewed & are unremarkable except as noted in HPI & below Physical Exam Physical Exam: Gen: appears older than stated age, and o x 3, nad, sitting upright in bed, flat affect HEENT: Normocephalic, atraumatic, conjunctivae moist, sclerae anicteric, mucous membranes moist. Lung: Clear to Auscultation bilaterally, no wheezes/rales/rhonchi Heart: Regular rate, regular rhythm, no murmurs, rubs, or gallops Abdomen: Soft, NT, ND +BS x 4 Extremities: No edema, AROM x 4, LUE/LLE 4/5, RUE/RLE 5/5, no clonus, no asterixis Skin: Warm, no rash, negative turgor. Results & Data Results & Data Vital Signs (Past 12 Hours) Vital Signs Temp Pulse Pulse Resp BP Pulse Ox O2 Del Method 03/26/25 09:31 Room Air 03/26/25 07:28 36.8 C 75 18 154/77 H 95 Room Air 03/26/25 05:59 79 03/26/25 03:43 36.6 C 86 20 144/81 H 92 Room Air 03/26/25 00:09 37.0 C 73 18 125/68 92 Room Air Laboratory Results I have independently reviewed and interpreted patient's CBC, BMP, CK Short CBC 03/26/25 Range/Units 07:29 WBC 7.89 (4.8-10.8) K/ul Hgb 15.7 (14.0-18.0) g/dl Hct 45.4 (42.0-52.0) % Plt Count 150 (130-400) K/uL BMP 03/26/25 07:29 Sodium 140 Potassium 3.9 Chloride 108 H Carbon Dioxide 27 BUN 16 Creatinine 1.43 H Glucose 155 H Calcium 9.4 Cardiac Enzymes 03/26/25 Range/Units 07:29 Total Creatine Kinase 373 H (30-223) U/L Liver Function 03/26/25 Range/Units 07:29 Total Bilirubin 0.9 (0.2-1.0) mg/dl AST 30 (13-39) U/L ALT 18 (7-52) U/L Alkaline Phosphatase 77 (34-104) U/L Albumin 3.9 (3.4-5.0) gm/dl Medications Administered Current Inpatient Medications Acetaminophen (Acetaminophen 325 Mg Tab) 650 mg PO Q4H PRN PRN Reason: pain/fever Stop: 04/24/25 15:22 Last Admin: 03/25/25 18:19 Dose: 650 mg Amlodipine Besylate (Amlodipine Besylate 5 Mg Tab) 5 mg PO DAILY YADIRA Stop: 04/25/25 08:59 Last Admin: 03/26/25 08:35 Dose: 5 mg Atorvastatin Calcium (Atorvastatin 20 Mg Tab) 20 mg PO QAM YADIRA Stop: 04/25/25 08:59 Last Admin: 03/26/25 08:35 Dose: 20 mg Clopidogrel Bisulfate (Clopidogrel Bisulfate 75 Mg Tab) 75 mg PO QAM YADIRA Stop: 04/25/25 08:59 Last Admin: 03/26/25 08:35 Dose: 75 mg Dextrose (Dextrose 50% 50 Ml Syringe) 25 - 50 ml IV UD PRN; Protocol PRN Reason: Hypoglycemia Protocol Stop: 04/24/25 15:22 Ferrous Sulfate (Ferrous Sulfate 325 Mg Tab) 325 mg PO DAILY YADIRA Stop: 04/25/25 08:59 Last Admin: 03/26/25 08:35 Dose: 325 mg Folic Acid (Folic Acid 1 Mg Tab) 1 mg PO QAM YADIRA Stop: 04/24/25 15:29 Last Admin: 03/26/25 08:36 Dose: 1 mg Furosemide (Furosemide 20 Mg Tab) 20 mg PO DAILY YADIRA Stop: 04/25/25 08:59 Last Admin: 03/26/25 08:36 Dose: 20 mg Glucagon (Glucagon For Inj 1 Mg Vial) 1 mg SQ UD PRN; Protocol PRN Reason: Hypoglycemia Protocol Stop: 04/24/25 15:22 Glucose (Glucose 40% Gel 15 Gm Tube) 15 - 30 gm PO UD PRN; Protocol PRN Reason: Hypoglycemia Protocol Stop: 04/24/25 15:22 Glucose (Glucose 10 Tab/Tube) 4 - 8 tab PO UD PRN; Protocol PRN Reason: Hypoglycemia Protocol Stop: 04/24/25 15:22 Heparin Sodium (Porcine) (Heparin Sod 5,000 Unit/0.5 Ml Vial) 5,000 units SQ Q8 YADIRA Stop: 04/24/25 15:22 Last Admin: 03/26/25 05:26 Dose: Not Given Sodium Chloride (Nss) 1,000 mls @ 80 mls/hr IV .[id number] [facility] Stop: 03/27/25 11:29 Last Admin: 03/26/25 11:02 Dose: 80 mls/hr Ceftriaxone Sodium (Rocephin) 2,000 mg in 50 mls @ 100 mls/hr IV Q24H [facility] Stop: 04/05/25 11:59 Insulin Aspart (Insulin Aspart Per Unit Charge) 0 units SC ACHS [facility] Stop: 04/24/25 16:29 Last Admin: 03/26/25 11:04 Dose: Not Given Isosorbide Mononitrate (Isosorbide [place] Extended Rel 30 Mg Tabcr) 30 mg PO DAILY [facility] Stop: 04/25/25 08:59 Last Admin: 03/26/25 08:35 Dose: 30 mg Lidocaine (Lidocaine 5% 1 Patch) 2 patch TD QAM [facility] Stop: 04/25/25 11:44 Last Admin: 03/26/25 11:02 Dose: 2 patch Lorazepam (Lorazepam 0.5 Mg Tab) 0.5 mg PO HS [facility] Stop: 04/24/25 20:59 Last Admin: 03/25/25 20:37 Dose: 0.5 mg Lorazepam (Lorazepam 1 Mg Tab) 1 mg PO UD PRN; Protocol PRN Reason: EtOH Withdrawal AWSS Score 6,7 Stop: 04/24/25 15:22 Lorazepam (Lorazepam 1 Mg Tab) 3 mg PO ONCE PRN; Protocol PRN Reason: EtOH Withdrawal AWSS Score 10 & above Lorazepam (Lorazepam 1 Mg Tab) 2 mg PO UD PRN; Protocol PRN Reason: EtOH Withdrawal AWSS Score 8,9 Stop: 04/24/25 15:22 Miscellaneous (Remove Lidoderm Patch) 1 each N/A DAILY@2100 YADIRA Stop: 04/24/25 20:59 Last Admin: 03/25/25 20:37 Dose: 1 each Miscellaneous (Carbohydrates For Hypoglycemia ) 15 - 30 gm PO UD PRN PRN Reason: Hypoglycemia Protocol Stop: 04/24/25 15:22 Miscellaneous (Remove Lidoderm Patch) 2 each N/A DAILY@2100 YADIRA Stop: 04/25/25 20:59 Pantoprazole Sodium (Pantoprazole 40 Mg Tab) 40 mg PO QAM [facility] Stop: 04/25/25 08:59 Last Admin: 03/26/25 08:35 Dose: 40 mg Polyethylene Glycol (Polyethylene (Miralax) 17 Gm Pack) 17 gm PO DAILY PRN PRN Reason: Constipation Stop: 04/24/25 15:22 Ropinirole HCl (Ropinirole Hcl 0.25 Mg Tablet) 0.25 mg PO HS [facility] Stop: 04/24/25 20:59 Last Admin: 03/25/25 20:38 Dose: 0.25 mg Sertraline HCl (Sertraline Hcl 50 Mg Tablet) 50 mg PO DAILY [facility] Stop: 04/25/25 08:59 Last Admin: 03/26/25 08:35 Dose: 50 mg Tamsulosin HCl (Tamsulosin Hcl 0.4 Mg Cap) 0.4 mg PO QAM [facility] Stop: 04/25/25 08:59 Last Admin: 03/26/25 08:35 Dose: 0.4 mg Thiamine HCl (Thiamine Hcl 100 Mg Tab) 100 mg PO QAM [facility] Stop: 04/24/25 15:29 Last Admin: 03/26/25 08:36 Dose: 100 mg (2) Rhabdomyolysis Encounter type: initial encounter Rhabdomyolysis type: traumatic Qualified Code(s): T79.6XXA - Traumatic ischemia of muscle, initial encounter (3) Left hand fracture Encounter type: initial encounter Fracture type: closed Qualified Code(s): S62.92XA - Unspecified fracture of left wrist and hand, initial encounter for closed fracture (9) Hypertension Hypertension type: unspecified Qualified Code(s): I10 - Essential (primary) hypertension
[2025-03-26] MEDS: cefTRIAXone SODIUM 2,000 MG/50 ML BAG IV SCH (12:40)
[2025-03-26] MEDS: traMADol HCL 50 MG TABLET PO PRN (13:57)
[2025-03-26] MEDS: ACETAMINOPHEN 325 MG TAB PO SCH (14:05)
[2025-03-26] MEDS: BENZOCAINE 20% (ORAJEL) 11.9 GM TUBE MT PRN (17:00)
[2025-03-26] MEDS: oxyCODONE HCL IR 5 MG TAB (IMMEDIATE RELEASE) PO PRN (18:29)
[2025-03-27 06:09] LABS: Basophils # (auto) 0.04 K/uL (0.00-0.20); Basophils % (auto) 0.5 %; Eosinophils # (auto) 0.18 K/uL (0.00-0.50); Eosinophils % (auto) 2.1 %; Hematocrit (blood only) 43.1 % (42.0-52.0); Hemoglobin 14.8 g/dl (14.0-18.0); Immature Granulocytes # (auto) 0.07 K/uL (0.01-0.20); Immature Granulocytes % (auto) 0.8 %; Lymphocytes # (auto) 1.98 K/uL (1.20-3.40); Lymphocytes % (auto) 23.5 %; Mean Corpuscular Hemoglobin 29.5 pg (25.0-34.0); Mean Corpuscular Hgb Conc 34.3 g/dL (32.0-36.0); Mean Platelet Volume 10.2 fL (9.4-12.4); Monocytes # (auto) 0.81 K/uL (0.11-0.59); Monocytes % (auto) 9.6 %; Neutrophils # (auto) 5.34 K/uL (1.40-6.50); Neutrophils % (auto) 63.5 %; Platelet Count 146 K/uL (130-400); RDW Coefficient of Variation 17.4 % (11.5-14.5); RDW Standard Deviation 54.9 fL (36.4-46.3); Red Blood Count 5.01 M/uL (4.70-6.10); White Blood Count 8.42 K/ul (4.8-10.8)
[2025-03-27 06:54] LABS: BUN Creatinine Ratio 10.3 (10-20); Calcium 9.2 mg/dl (8.6-10.3); Creatinine Clr Calc Pharmacy 52.2 ml/min; Potassium 3.8 mmol/L (3.5-5.1)
[2025-03-27 07:23] LABS: Estimated Average Glucose 146 mg/dl; Hemoglobin A1C 6.7 % (4.5-5.6)
--- NOTE | 2025-03-27 07:51 | Hospitalist Progress Note ---
Date of Service March 27, 2025 Assessment & Plan (1) Fall: (2) Rhabdomyolysis: (3) Left hand fracture: (4) Alcohol abuse: (5) Acute UTI: (6) Elevated troponin: (7) Chronic HFrEF (heart failure with reduced ejection fraction): (8) CAD (coronary artery disease): (9) Hypertension: (10) Dyslipidemia: (11) H/O: CVA (cerebrovascular accident): (12) DM type 2 (diabetes mellitus, type 2): (13) CKD (chronic kidney disease), stage III: (14) Anxiety: (15) Depression: (16) GERD (gastroesophageal reflux disease): (17) BPH (benign prostatic hyperplasia): (18) Hx pulmonary embolism: Plan This is a 54 year old male with PMH significant for HFrEF (EF 35% in Sep 2024), CAD s/p stent, ischemic cardiomyopathy, HTN, dyslipidemia, DM II, CKD III, GERD, BPH, history of PE, history of CVA, depression/anxiety, and history of alcohol abuse who presents to the ED today after multiple falls at home. Fall Left hand fracture Rhabdomyolysis Recurrent falls at home likely due to alcohol use and concurrent ativan use Head CT, cervical spine CT, chest CT, CXR, left elbow x-ray all negative for acute injury Left hand and wrist x-ray revealed acute fracture of left fifth metacarpal - ortho evaluated and feels fracture is old/healing, splint removed and no restrictions, follow up ortho prn PRN tylenol for pain CK elevated to 809 ->373 -> 359 Given IVF yesterday for additional 1L - PT obtaining orthostatics today to help better assess volume status Holding atorvastatin in setting of rhabdo, resume when CK normalizes PT/OT consulted - feel acute rehab would be beneficial given patient's stroke history For chronic pain in legs - improved with lidocaine patches and scheduled tylenol - long discussion on how dilaudid is not an appropriate medication choice for this pain and h/o recurrent falls Alcohol abuse Alcohol level <10 today AWSS protocol with PRN ativan per protocol Counseled on alcohol cessation no s/sx of withdrawal, pt reports 3-4 beers and 1 shot of Jagermeister 2-3x weekly Continue daily folic acid, thiamine, MV Acute UTI UA +nitrite, leuk esterase, WBC, bacteria, wbc 15k on admission with associated dysuria Initial urine culture growing > 100k Klebsiella, sensitive to rocephin Initially started on IV ampicillin, broadened to IV Ceftriaxone for kleb coverage (day#2) Elevated troponin Patient denies chest pain and EKG unremarkable Trop flat, suspect trop leak in setting of rhabdo Chronic HFrEF, CAD, HTN, dyslipidemia Follows with Cardiology (last seen Aug 2024) Continue amlodipine, atorvastatin, furosemide, imdur per home dosing daily weight, I and O monitor volume status closely with IVF in setting of rhabdo, currently euvolemic, weight 75kg History of CVA Continue plavix, place statin on hold DM II On metformin at home - holding while inpt SSI while inpt, a1c in a.m. last a1c 7.8 04/2024 CKD III Follows with Nephrology (last seen Nov 2024) Baseline creat around 1.2-1.4 Anxiety Patient takes ativan 1mg qhs and 0.5mg bid PRN at home Reduced nightly dose to 0.5mg due to recurrent falls Consider dose reduction at discharge Depression Continue sertraline per home dosing GERD Continue pantoprazole per home dosing BPH Continue tamsulosin per home dosing History of PE Occurred in August 2023 Previously on Eliquis 5mg bid but patient reports no longer taking due to insu carlitos coverage He is interested in alternative agent discussed with patient risks vs benefits given his freq fall risk At this point I would defer this to patients PCP to work with his insurance to determine best agent given fall risk/alcohol use, he doesn't drive so warfarin may be difficult DVT Prophylaxis: SQ Heparin Code Status: FULL CODE - As per discussion at bedside with the patient. PCP: Ashley EVANS Disposition: downgraded to med/surg yesterday, suspect pt can d/c in next 1-2 days PT/OT eval Patient seen in collaboration with Dr. Dobson. Please see addendum. I spent a total of 50 minutes coordinating, documenting, and providing care for this patient excluding time spent in the performance of separately billed services or time spent by another provider/QHP. Admission and Anticipated Discharge Date Admission Date: March 25, 2025 Supervising Physician Co-Signing Physician Notes I have reviewed the advanced practitioner's documentation, and I agree with, and take responsibility for the plan of care Subjective Pt seen and examined in room 277-1. No acute concerns. No specific leg pain at this time. When he does have pain, describes as a burning sensation in calves similar to a darrick horse. Lives alone and is primarily sedentary but has been working with outpatient PT/OT. Can ambulate independently sometimes but deals with unsteadiness / intermittent generalized weakness with stroke history/ deconditionting. Denies dizziness, vertigo, f/c/s, chest pain, sob, n/v/d, abd pain. He states he has been off of Eliquis for a few months due to cost. Review of Systems Review of Systems: At least ten systems reviewed and negative except as noted in the HPI. Physical Exam Physical Exam: Gen: WD/WN, NAD,resting in bed comfortably, A&Ox3 HEENT: Normocephalic, atraumatic, conjunctivae moist, sclerae anicteric, mucous membranes moist Lung: Clear to Auscultation bilaterally, no wheezes/rales/rhonchi Heart: Regular rate, regular rhythm Abdomen: Soft, NT, ND +BS x 4 Extremities: no edema, lidocaine patches in place, denies leg pain at this time Skin: Warm, no rash Results & Data Results & Data Vital Signs (Past 12 Hours) Vital Signs Temp Pulse Pulse Resp BP Pulse Ox O2 Del Method 03/27/25 07:46 36.7 C 77 16 157/79 H 97 Room Air 03/27/25 00:19 36.8 C 82 20 144/91 H 94 Room Air 03/26/25 22:40 Room Air Laboratory Results Short CBC 03/27/25 Range/Units 05:28 WBC 8.42 (4.8-10.8) K/ul Hgb 14.8 (14.0-18.0) g/dl Hct 43.1 (42.0-52.0) % Plt Count 146 (130-400) K/uL BMP 03/27/25 05:28 Sodium 140 Potassium 3.8 Chloride 108 H Carbon Dioxide 25 BUN 15 Creatinine 1.46 H Glucose 151 H Calcium 9.2 Cardiac Enzymes 03/27/25 Range/Units 05:28 Total Creatine Kinase 359 H (30-223) U/L Diagnostic Findings Abdomen/Pelvis CT 03/25/25 10:[address] WITH IV CONTRAST CT DOSE: 3404 HISTORY: Trauma TECHNIQUE: Multiaxial CT images of the abdomen and pelvis were performed following the IV administration of 90 cc of Optiray, A dose lowering technique was utilized adhering to the principles of ALARA. COMPARISON STUDY: 04/26/2024 FINDINGS: ABDOMEN: Liver, bladder, spleen, pancreas, kidneys, and adrenal glands show no evidence of acute injury. There are a few tiny cysts at the kidneys. There are scattered atherosclerotic calcifications. No abdominal aortic aneurysm or injury seen. Pelvis: Prostate is mildly enlarged. Urinary bladder is mildly distended. No bowel in summation or obstruction is seen. No free fluid or free air. No pelvic hematoma. Osseous structures: No acute fracture seen at the visualized osseous structures. IMPRESSION: No acute injury seen at the abdomen or pelvis. ACT 112: Negative or not required by law. The above report was generated using voice recognition software. It may contain grammatical, syntax or spelling errors. Electronically signed by: Greg Collier M.D. 03/25/2025 11:[address] 03/25/25 10:[address] WITH CONTRAST HISTORY: Trauma TECHNIQUE: Multiaxial CT images of the chest were performed following the IV administration of 90 cc of Optiray. A dose lowering technique was utilized adhering to the principles of ALARA. COMPARISON STUDY: 09/08/2023 FINDINGS: There is mild atelectasis or scarring in the lung bases. There is no pulmonary consolidation or pleural effusion. No pneumothorax. No mediastinal hematoma. No pericardial effusion. There are diffuse coronary artery calcifications. No thoracic aortic injury or dissection. No pulmonary embolism. No acute fracture seen at the visualized osseous structures. IMPRESSION: No acute injury seen at the chest. ACT 112: Negative or not required by law. Electronically signed by: Greg Collier M.D. 03/25/2025 11:50 AM Chest X-Ray 03/25/25 10:14 XR chest 1V portable CLINICAL HISTORY: Trauma COMPARISON STUDY: 09/12/2024 FINDINGS: Heart size and pulmonary vasculature are normal. No effusion, consolidation, or pneumothorax. IMPRESSION: No acute findings. ACT 112: Negative or not required by law. Electronically signed by: Greg Collier M.D. 03/25/2025 11:23 AM Elbow X-Ray 03/25/25 10:14 XR elbow LT min 3V routine CLINICAL HISTORY: fall COMPARISON: 06/17/2021 FINDINGS: There is a stable small chronic density adjacent to the coronoid process tip consistent with sequela of old injury. No acute fracture or dislocation seen at the left elbow. IMPRESSION: No acute fracture seen. ACT 112: Negative or not required by law. Electronically signed by: Greg Collier M.D. 03/25/2025 11:25 AM Hand X-Ray 03/25/25 10:14 XR wrist LT w scaphoid, XR hand LT min 3V routine CLINICAL HISTORY: fall COMPARISON: None FINDINGS: There is an acute oblique fracture extending from the proximal to distal shaft of the fifth metacarpal with minimal displacement. No other fracture or dislocation seen at the left hand or left wrist. IMPRESSION: Acute fracture fifth metacarpal. ACT 112: Negative or not required by law. Electronically signed by: Greg Collier M.D. 03/25/2025 11:26 AM Wrist X-Ray 03/25/25 10:14 XR wrist LT w scaphoid, XR hand LT min 3V routine CLINICAL HISTORY: fall COMPARISON: None FINDINGS: There is an acute oblique fracture extending from the proximal to distal shaft of the fifth metacarpal with minimal displacement. No other fracture or dislocation seen at the left hand or left wrist. IMPRESSION: Acute fracture fifth metacarpal. ACT 112: Negative or not required by law. Electronically signed by: Greg Collier M.D. 03/25/2025 11:[address] 03/25/25 10:15 CT cervical spine wo con CT DOSE: 3403.78 mGy.cm CLINICAL HISTORY: Trauma. COMPARISON: 06/07/2021 TECHNIQUE: Multiple axial CT images of the cervical spine were obtained without contrast. A dose lowering technique was utilized adhering to the principles of ALARA. FINDINGS: There is progressive degenerative disc disease at the lower cervical spine. No fracture or subluxation. There are carotid bulb calcifications. IMPRESSION: No cervical spine fracture seen. ACT 112: Negative or not required by law. The above report was generated using voice recognition software. It may contain grammatical, syntax or spelling errors. Electronically signed by: Greg Collier M.D. 03/25/2025 11:[address] 03/25/25 10:15 CT head/brain wo con CLINICAL HISTORY: Trauma. TECHNIQUE: Multiple axial CT images of the head were obtained without contrast. A dose lowering technique was utilized adhering to the principles of ALARA. 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 Stable superimposed chronic small vessel ischemic changes. No intracranial hemorrhage s een. No mass effect, midline shift, or hydrocephalus. No skull fracture seen. Visualized paranasal sinuses and mastoid air cells are clear. IMPRESSION: Stable exam. No acute findings seen. ACT 112: Negative or not required by law. The above report was generated using voice recognition software. It may contain grammatical, syntax or spelling errors. Electronically signed by: Greg Collier M.D. 03/25/2025 11:44 AM (2) Rhabdomyolysis Encounter type: initial encounter Rhabdomyolysis type: traumatic Qualified Code(s): T79.6XXA - Traumatic ischemia of muscle, initial encounter (3) Left hand fracture Encounter type: initial encounter Fracture type: closed Qualified Code(s): S62.92XA - Unspecified fracture of left wrist and hand, initial encounter for closed fracture (9) Hypertension Hypertension type: unspecified Qualified Code(s): I10 - Essential (primary) hypertension
[2025-03-27] MEDS: HYDROmorphone INJ 0.5 MG/0.5 ML SYR IV PRN (20:24)
[2025-03-28 06:53] LABS: Hematocrit (blood only) 43.3 % (42.0-52.0); Hemoglobin 14.9 g/dl (14.0-18.0); Mean Corpuscular Hemoglobin 29.6 pg (25.0-34.0); Mean Corpuscular Hgb Conc 34.4 g/dL (32.0-36.0); Mean Corpuscular Volume 85.9 fL (80.0-100.0); Mean Platelet Volume 10.2 fL (9.4-12.4); Platelet Count 156 K/uL (130-400); RDW Coefficient of Variation 17.4 % (11.5-14.5); RDW Standard Deviation 53.7 fL (36.4-46.3); Red Blood Count 5.04 M/uL (4.70-6.10); White Blood Count 7.57 K/ul (4.8-10.8)
[2025-03-28 07:17] LABS: BUN Creatinine Ratio 12.9 (10-20); Calcium 9.4 mg/dl (8.6-10.3); Creatinine Clr Calc Pharmacy 54.8 ml/min; Potassium 3.7 mmol/L (3.5-5.1)
[2025-03-28] MEDS: oxyCODONE HCL IR 5 MG TAB (IMMEDIATE RELEASE) PO PRN ×2 (08:48→16:46)
--- NOTE | 2025-03-28 10:33 | Hospitalist Progress Note ---
Date of Service March 28, 2025 Assessment & Plan (1) Fall: (2) Rhabdomyolysis: (3) Left hand fracture: (4) Alcohol abuse: (5) Acute UTI: (6) Elevated troponin: (7) Chronic HFrEF (heart failure with reduced ejection fraction): (8) CAD (coronary artery disease): (9) Hypertension: (10) Dyslipidemia: (11) H/O: CVA (cerebrovascular accident): (12) DM type 2 (diabetes mellitus, type 2): (13) CKD (chronic kidney disease), stage III: (14) Anxiety: (15) Depression: (16) GERD (gastroesophageal reflux disease): (17) BPH (benign prostatic hyperplasia): (18) Hx pulmonary embolism: Plan This is a 54 year old male with PMH significant for HFrEF (EF 35% in Sep 2024), CAD s/p stent, ischemic cardiomyopathy, HTN, dyslipidemia, DM II, CKD III, GERD, BPH, history of PE, history of CVA, depression/anxiety, and history of alcohol abuse who presents to the ED today after multiple falls at home. Fall Left hand fracture Rhabdomyolysis Recurrent falls at home likely due to alcohol use and concurrent Ativan use Head CT, cervical spine CT, chest CT, CXR, left elbow x-ray all negative for acute injury Left hand and wrist x-ray revealed acute fracture of left fifth metacarpal - ortho evaluated and feels fracture is old/healing, splint removed and no restrictions, follow up ortho PRN CK elevated to 809 ->373 -> 359 Given IVF yesterday for additional 1L, orthostatics WNL Holding atorvastatin in setting of resolving rhabdo, recheck CK in AM PT/OT consulted - recommend inpatient rehab. Insurance auth to [facility] pending For chronic pain in legs - improved with lidocaine patches and scheduled tylenol - long discussion on how dilaudid is not an appropriate medication choice for this pain and h/o recurrent falls Alcohol abuse Alcohol level <10 today AWSS protocol with PRN ativan per protocol Counseled on alcohol cessation No s/sx of withdrawal, pt reports 3-4 beers and 1 shot of Jagermeister 2-3x weekly Continue daily folic acid, thiamine, MV Acute UTI UA +nitrite, leuk esterase, WBC, bacteria, wbc 15k on admission with associated dysuria Initial urine culture growing > 100k Klebsiella, sensitive to rocephin Initially started on IV ampicillin, broadened to IV Ceftriaxone for kleb coverage (day#3) Elevated troponin Patient denies chest pain and EKG unremarkable Trop flat, suspect trop leak in setting of rhabdo Chronic HFrEF, CAD, HTN, dyslipidemia Follows with Cardiology (last seen Aug 2024) Continue amlodipine, atorvastatin, furosemide, Imdur per home dosing Daily weight, I&O Monitor volume status closely with IVF in setting of rhabdo, currently euvolemic History of CVA Continue Plavix, statin on hold DM II On metformin at home - holding while inpt SSI while inpt, a1c in a.m. Last a1c 7.8 04/2024 CKD III Follows with Nephrology (last seen Nov 2024) Baseline creat around 1.2-1.4 Anxiety Resumed Ativan 1mg qhs and 0.5mg bid PRN at home Depression Continue sertraline per home dosing GERD Continue pantoprazole per home dosing BPH Continue tamsulosin per home dosing History of PE Occurred in August 2023 Previously on Eliquis 5mg bid but patient reports no longer taking due to insurance coverage He is interested in alternative agent discussed with patient risks vs benefits given his freq fall risk At this point I would defer this to patients PCP to work with his insurance to determine best agent given fall risk/alcohol use, he doesn't drive so warfarin may be difficult DVT Prophylaxis: SQ Heparin Code Status: FULL PCP: Ashley EVANS Dispo: Med/surg, insurance auth to [facility] pending Patient seen in collaboration with Dr. Dobson. Please see addendum. I spent a total of 50 minutes coordinating, documenting, and providing care for this patient excluding time spent in the performance of separately billed services or time spent by another provider/QHP. Admission and Anticipated Discharge Date Admission Date: March 25, 2025 Supervising Physician Co-Signing Physician Notes I have reviewed the advanced practitioner's documentation, and I agree with, and take responsibility for the plan of care I spent a total of 20 minutes coordinating, documenting, and providing care for this patient excluding time spent in the performance of separately billed services. All of the aforementioned completed while collaborating with the assigned advanced practitioner for a full treatment plan Subjective Pt seen and examined in room 277-1. No acute concerns. Did have anxiety and pain overnight - received IV Dilaudid. Re-educated on importance of positioning in bed, sitting up in chair to better control pain. Can ambulate independently sometimes but deals with unsteadiness / intermittent generalized weakness with stroke history/ deconditioning. Denies dizziness, f/c/s, chest pain, sob, n/v/d, abd pain. Review of Systems Review of Systems: At least ten systems reviewed and negative except as noted in the HPI. Physical Exam Physical Exam: Gen: WD/WN, NAD,resting in bed comfortably, A&Ox3 HEENT: Normocephalic, atraumatic, mucous membranes moist Lung: Clear to Auscultation bilaterally, no wheezes/rales/rhonchi Heart: Regular rate, regular rhythm Abdomen: Soft, NT, ND +BS x 4 Extremities: Discomfort no edema, denies leg pain at this time Skin: Warm, no rash Results & Data Results & Data Vital Signs (Past 12 Hours) Vital Signs Temp Pulse Resp BP Pulse Ox O2 Del Method 03/28/25 08:45 Room Air 03/28/25 08:20 36.6 C 69 20 170/81 H 98 Room Air 03/28/25 04:00 36.5 C 69 20 161/77 H 95 Room Air 03/27/25 23:40 36.8 C 74 18 163/85 H 94 Room Air Laboratory Results Short CBC 03/28/25 Range/Units 06:26 WBC 7.57 (4.8-10.8) K/ul Hgb 14.9 (14.0-18.0) g/dl Hct 43.3 (42.0-52.0) % Plt Count 156 (130-400) K/uL [facility] 03/28/25 06:26 Sodium 139 Potassium 3.7 Chloride 106 Carbon Dioxide 29 BUN 18 Creatinine 1.39 Glucose 144 H Calcium 9.4 Diagnostic Findings Abdomen/Pelvis CT 03/25/25 10:[address] WITH IV CONTRAST CT DOSE: 3404 HISTORY: Trauma TECHNIQUE: Multiaxial CT images of the abdomen and pelvis were performed following the IV administration of 90 cc of Optiray, A dose lowering technique was utilized adhering to the principles of ALARA. COMPARISON STUDY: 04/26/2024 FINDINGS: ABDOMEN: Liver, bladder, spleen, pancreas, kidneys, and adrenal glands show no evidence of acute injury. There are a few tiny cysts at the kidneys. There are scattered atherosclerotic calcifications. No abdominal aortic aneurysm or injury seen. Pelvis: Prostate is mildly enlarged. Urinary bladder is mildly distended. No bowel in summation or obstruction is seen. No free fluid or free air. No pelvic hematoma. Osseous structures: No acute fracture seen at the visualized osseous structures. IMPRESSION: No acute injury seen at the abdomen or pelvis. ACT 112: Negative or not required by law. The above report was generated using voice recognition software. It may contain grammatical, syntax or spelling errors. Electronically signed by: Greg Collier M.D. 03/25/2025 11:[address] 03/25/25 10:[address] WITH CONTRAST HISTORY: Trauma TECHNIQUE: Multiaxial CT images of the chest were performed following the IV administration of 90 cc of Optiray. A dose lowering technique was utilized adhering to the principles of ALARA. COMPARISON STUDY: 09/08/2023 FINDINGS: There is mild atelectasis or scarring in the lung bases. There is no pulmonary consolidation or pleural effusion. No pneumothorax. No mediastinal hematoma. No pericardial effusion. There are diffuse coronary artery calcifications. No thoracic aortic injury or dissection. No pulmonary embolism. No acute fracture seen at the visualized osseous structures. IMPRESSION: No acute injury seen at the chest. ACT 112: Negative or not required by law. Electronically signed by: Greg Collier M.D. 03/25/2025 11:50 AM Chest X-Ray 03/25/25 10:14 XR chest 1V portable CLINICAL HISTORY: Trauma COMPARISON STUDY: 09/12/2024 FINDINGS: Heart size and pulmonary vasculature are normal. No effusion, consolidation, or pneumothorax. IMPRESSION: No acute findings. ACT 112: Negative or not required by law. Electronically signed by: Greg Collier M.D. 03/25/2025 11:23 AM Elbow X-Ray 03/25/25 10:14 XR elbow LT min 3V routine CLINICAL HISTORY: fall COMPARISON: 06/17/2021 FINDINGS: There is a stable small chronic density adjacent to the coronoid process tip consistent with sequela of old injury. No acute fracture or dislocation seen at the left elbow. IMPRESSION: No acute fracture seen. ACT 112: Negative or not required by law. Electronically signed by: Greg Collier M.D. 03/25/2025 11:25 AM Hand X-Ray 03/25/25 10:14 XR wrist LT w scaphoid, XR hand LT min 3V routine CLINICAL HISTORY: fall COMPARISON: None FINDINGS: There is an acute oblique fracture extending from the proximal to distal shaft of the fifth metacarpal with minimal displacement. No other fracture or dislocation seen at the left hand or left wrist. IMPRESSION: Acute fracture fifth metacarpal. ACT 112: Negative or not required by law. Electronically signed by: Greg Collier M.D. 03/25/2025 11:26 AM Wrist X-Ray 03/25/25 10:14 XR wrist LT w scaphoid, XR hand LT min 3V routine CLINICAL HISTORY: fall COMPARISON: None FINDINGS: There is an acute oblique fracture extending from the proximal to distal shaft of the fifth metacarpal with minimal displacement. No other fracture or dislocation seen at the left hand or left wrist. IMPRESSION: Acute fracture fifth metacarpal. ACT 112: Negative or not required by law. Electronically signed by: Greg Collier M.D. 03/25/2025 11:[address] 03/25/25 10:15 CT cervical spine wo con CT DOSE: 3403.78 mGy.cm CLINICAL HISTORY: Trauma. COMPARISON: 06/07/2021 TECHNIQUE: Multiple axial CT images of the cervical spine were obtained without contrast. A dose lowering technique was utilized adhering to the principles of ALARA. FINDINGS: There is progressive degenerative disc disease at the lower cervical spine. No fracture or subluxation. There are carotid bulb calcifications. IMPRESSION: No cervical spine fracture seen. ACT 112: Negative or not required by law. The above report was generated using voice recognition software. It may contain grammatical, syntax or spelling errors. Electronically signed by: Greg Collier M.D. 03/25/2025 11:[address] 03/25/25 10:15 CT head/brain wo con CLINICAL HISTORY: Trauma. TECHNIQUE: Multiple axial CT images of the head were obtained without contrast. A dose lowering technique was utilized adhering to the principles of ALARA. 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 Stable sup erimposed chronic small vessel ischemic changes. No intracranial hemorrhage seen. No mass effect, midline shift, or hydrocephalus. No skull fracture seen. Visualized paranasal sinuses and mastoid air cells are clear. IMPRESSION: Stable exam. No acute findings seen. ACT 112: Negative or not required by law. The above report was generated using voice recognition software. It may contain grammatical, syntax or spelling errors. Electronically signed by: Greg Collier M.D. 03/25/2025 11:44 AM (2) Rhabdomyolysis Encounter type: initial encounter Rhabdomyolysis type: traumatic Qualified Code(s): T79.6XXA - Traumatic ischemia of muscle, initial encounter (3) Left hand fracture Encounter type: initial encounter Fracture type: closed Qualified Code(s): S62.92XA - Unspecified fracture of left wrist and hand, initial encounter for closed fracture (9) Hypertension Hypertension type: unspecified Qualified Code(s): I10 - Essential (primary) hypertension
[2025-03-28] MEDS ORDERED: LORazepam 0.5 MG TAB PO PRN (13:47)
[2025-03-28] MEDS: LORazepam 1 MG TAB PO SCH (20:50)
[2025-03-29 07:13] LABS: Hematocrit (blood only) 44.1 % (42.0-52.0); Hemoglobin 15.5 g/dl (14.0-18.0); Mean Corpuscular Hgb Conc 35.1 g/dL (32.0-36.0); Mean Corpuscular Volume 85.5 fL (80.0-100.0); Mean Platelet Volume 9.9 fL (9.4-12.4); Platelet Count 157 K/uL (130-400); RDW Coefficient of Variation 17.2 % (11.5-14.5); RDW Standard Deviation 52.9 fL (36.4-46.3); Red Blood Count 5.16 M/uL (4.70-6.10); White Blood Count 8.71 K/ul (4.8-10.8)
[2025-03-29 07:34] LABS: Calcium 9.7 mg/dl (8.6-10.3); Potassium 3.7 mmol/L (3.5-5.1)
[2025-03-29 08:03] VITALS: RESP 18; TEMP 97.5; O2SAT 97
[2025-03-29] MEDS: amLODIPine BESYLATE 5 MG TAB PO SCH (08:20)
[2025-03-29 12:41] VITALS: BP 138/81
--- NOTE | 2025-03-29 13:24 | Discharge Summary ---
Discharge Summary Date of Service March 29, 2025 Principal Dx & Hospital Course #1 = Principal Diagnosis (1) Fall: (2) Rhabdomyolysis: (3) Left hand fracture: (4) Alcohol abuse: (5) Acute UTI: (6) Elevated troponin: (7) Chronic HFrEF (heart failure with reduced ejection fraction): (8) CAD (coronary artery disease): (9) Hypertension: (10) Dyslipidemia: (11) H/O: CVA (cerebrovascular accident): (12) DM type 2 (diabetes mellitus, type 2): (13) CKD (chronic kidney disease), stage III: (14) Anxiety: (15) Depression: (16) GERD (gastroesophageal reflux disease): (17) BPH (benign prostatic hyperplasia): (18) Hx pulmonary embolism: Plan This is a 54 year old male with PMH significant for HFrEF (EF 35% in Sep 2024), CAD s/p stent, ischemic cardiomyopathy, HTN, dyslipidemia, DM II, CKD III, GERD, BPH, history of PE, history of CVA, depression/anxiety, and history of alcohol abuse who presents to the ED today after multiple falls at home. Fall Left hand fracture Rhabdomyolysis Recurrent falls at home in setting of ambulatory dysfunction from previous stroke with some residual R sided weakness, as well as concurrent etoh/ Ativan use Head CT, cervical spine CT, chest CT, CXR, left elbow x-ray all negative for acute injury Left hand and wrist x-ray revealed acute fracture of left fifth metacarpal - ortho evaluated and feels fracture is old/healing, splint removed and no restrictions, follow up ortho PRN Given IVF yesterday for additional 1L, orthostatics WNL Held statin given elevated CK but has normalized per labs today. Resume statin on discharge PT/OT recommending inpatient rehab. Discharging to SNF rehab today for further conditioning For chronic pain in legs - recommended conditioning and good nutrition to reduce cramping pain. Discontinued IV dilaudid. Needs help with positioning given post- stroke deficits. PRN Tylenol, lidocaine patches, short course oxycodone for severe pain History of alcohol abuse Alcohol level <10 today AWSS protocol with PRN ativan per protocol Counseled on alcohol cessation No s/sx of withdrawal, pt reports 3-4 beers and 1 shot of Jagermeister 2-3x weekly Continue daily folic acid, thiamine, MV Recommend continued alcohol cessation Acute complicated UTI UA +nitrite, leuk esterase, WBC, bacteria, wbc 15k on admission with associated dysuria Initial urine culture growing > 100k Klebsiella, sensitive to Rocephin Complete 7 day abx course with Ciprofloxacin on discharge Elevated troponin Patient denies chest pain and EKG unremarkable Trop flat, suspect trop leak in setting of rhabdo Chronic HFrEF, CAD, HTN, dyslipidemia Follows with Cardiology (last seen Aug 2024) Continue amlodipine, atorvastatin, furosemide, Imdur per home dosing History of CVA Continue Plavix, statin DM II On metformin at home - holding while inpt SSI while inpt, a1c in a.m. Last a1c 7.8 04/2024 CKD III Follows with Nephrology (last seen Nov 2024) Baseline creat around 1.2-1.4 Anxiety Resumed home Ativan 1mg qhs and 0.5mg bid PRN at home Multiple discussions to stop concomitant use of ativan with alcohol use due to fall risk once returns home Depression Continue sertraline per home dosing GERD Continue pantoprazole per home dosing BPH Continue tamsulosin per home dosing History of PE Occurred in August 2023 Previously on Eliquis 5mg bid but patient reports no longer taking due to insurance coverage He is interested in alternative agent Discussed with patient risks vs benefits given his freq fall risk Defer this to patients PCP to work with his insurance to determine best agent given fall risk/alcohol use Patient seen in collaboration with Dr. Wong. Notes For Next Care Provider Falls in setting of UTI, ambulatory dysfunction and etoh/benzodiazepine use Medication Changes From Visit Complete abx course with Cipro for UTI, losartan 25mg HS started for elevated BP, Admission HPI Per Admitting Provider 54 year old male with PMH significant for HFrEF (EF 35% in Sep 2024), CAD s/p stent, ischemic cardiomyopathy, HTN, dyslipidemia, DM II, CKD III, GERD, BPH, history of PE, history of CVA, depression/anxiety, and history of alcohol abuse who presents to the ED today after multiple falls at home. He reports that he fell last night and needed to call his neighbor to get up. Also fell this morning and needed to call his neighbor again to get up. States he felt like he lost all the strength in his legs. Notes that he fell on his left side this morning. Denies hitting his head or loss of consciousness. Reports alcohol use last night where he drank a couple of shots and a couple of beers. He denies chest pain, palpitations, SOB, fevers, chills, cough, cold symptoms, abdominal pain, N/V/D, hematuria, hematochezia, urinary frequency, edema. He notes intermittent dysuria with last occurrence yesterday. He lives alone and usually ambulates without any assistive devices. Admission Exam Per Admitting Provider General: Not in distress Eyes: PERRL, conjunctivae normal, not pale, anicteric sclerae, EOM intact bilaterally ENMT: External ear and nose normal, oropharynx normal Respiratory: Normal respiratory effort, no respiratory distress, lungs clear to auscultation, no crackles and no wheezes Cardiovascular: RRR S1 S2 Gastrointestinal (Abdomen): Abdomen is not distended, soft, non-tender to palpation, no guarding, no palpable hepatosplenomegaly, normal bowel sounds Musculoskeletal: Left forearm and hand splinted/bandaged Neurologic: Alert and oriented x 3, No focal weakness, sensation grossly intact Psychiatric: Euthymic affect Discharge Exam Gen: WD/WN, NAD,resting in bed comfortably, A&Ox3 HEENT: Normocephalic, atraumatic, mucous membranes moist Lung: Clear to Auscultation bilaterally, no wheezes/rales/rhonchi Heart: Regular rate, regular rhythm Abdomen: Soft, NT, ND +BS x 4 Extremities: Discomfort no edema, denies leg pain at this time Skin: Warm, no rash Updated Medication List Medication Instructions Recorded Confirmed Type clopidogrel 75 mg tablet (Plavix) 75 mg PO QAM 06/05/21 03/25/25 History atorvastatin 20 mg tablet 20 mg PO QAM 09/08/23 03/25/25 History ropinirole 0.25 mg tablet 0.25 mg PO HS #30 tabs 10/12/23 03/25/25 Rx flash glucose sensor (FreeStyle #1 ea 01/01/24 08/09/24 History Yulissa 2 Sensor kit) pantoprazole 40 mg tablet,delayed 40 mg PO QAM 04/25/24 03/25/25 History release acetaminophen 500 mg tablet 500 mg PO Q6H PRN Pain 08/23/24 03/25/25 History furosemide 20 mg tablet 20 mg PO DAILY 08/23/24 03/25/25 History ibuprofen 200 mg tablet 200 mg PO Q6H PRN Pain 08/23/24 03/25/25 History tamsulosin 0.4 mg capsule 0.4 mg PO QAM 08/23/24 03/25/25 History amlodipine 5 mg tablet 5 mg PO DAILY 03/25/25 03/25/25 History ferrous sulfate 325 mg (65 mg 325 mg PO DAILY 03/25/25 03/25/25 History iron) tablet (FeroSul) isosorbide mononitrate 30 mg 30 mg PO DAILY 03/25/25 03/25/25 History tablet,extended release 24 hr lorazepam 0.5 mg tablet 0.5 mg PO BID PRN Anxiety 03/25/25 03/25/25 History lorazepam 1 mg tablet 1 mg PO HS 03/25/25 03/25/25 History metformin 500 mg tablet 500 mg PO BID 03/25/25 03/25/25 History sertraline 50 mg tablet 50 mg PO DAILY 03/25/25 03/25/25 History ciprofloxacin HCl 500 mg tablet 500 mg PO BID #6 tabs 03/29/25 Rx losartan 25 mg tablet 25 mg PO HS #30 tabs 03/29/25 Rx oxycodone 5 mg tablet 5 mg PO Q8H PRN severe pain (scale 03/29/25 Rx score 7-10) #9 tabs Hospital Stay Data Consultations 03/25/25 12:27 ED Decision to Admit Stat 03/25/25 15:23 Consult Orthopedic Surgery Routine 03/29/25 09:28 Consult Behavioral Health Liaison Routine Diagnostic Imagining Performed 03/25/25 10:14 CT abd pelvis IV con only Stat CT chest diagnostic w con Stat 03/25/25 10:15 CT cervical spine wo con Stat CT head/brain wo con Stat Pending Results Patient Have Any Pending Studies at Discharge: No Discharge Instructions Given to Patient (Per Discharging Provider) You were admitted to the hospital due to fall. You were found to have acute fracture of the left fifth metacarpal; orthopedic service evaluated and did not feel splint is needed. Follow-up with orthopedic as needed. You were found to have urinary tract infection for which you are prescribed C iprofloxacin (antibiotic) to be taken twice a day for 3 more days. Stop the use of Ativan and alcohol at the same time - this can lead to fall which could result in life-threatening injury. Please maintain abstinence from drinking. Follow-up with your primary care doctor regarding resumption of anticoagulation. MEDICATION CHANGES: Continue Ciprofloxacin (antibiotic) twice a day to complete course You were started on losartan 25mg every night for elevated blood pressure Okay to resume atorvastatin on discharge. RECOMMENDATIONS FOR FOLLOW-UP: Follow up with PCP once discharged from rehab. Complete antibiotic in its entirety. Recommend continued blood pressure monitoring at SNF. Recommend repeat CK level in 1 week. Continue medication regimen as scheduled aside from changes noted above. OTHER INSTRUCTIONS: Seek medical attention if you have: * temperature above 101 * chest pain or trouble breathing * abdominal pain, nausea, vomiting * diarrhea, dark stools or bloody stools * any unanswered questions or concerns Call 911 if symptoms are severe. Please take good care of yourself. Call if you have any questions or problems. You can reach a [facility] hospitalist on duty at [facility] 24 hours a day by calling [phone]. Total Time Total Time Spent Total Time Spent (In Minutes): 60 Supervising Physician Co-Signing Physician Notes I have reviewed the advanced practitioner's documentation, and I agree with, and take responsibility for the plan of care I spent a total of 20 minutes coordinating, documenting, and providing care for this patient excluding time spent in the performance of separately billed services. All of the aforementioned completed while collaborating with the assigned advanced practitioner for a full treatment plan
[2025-03-29 15:21] VITALS: PULSE 82
== END 2025-03-29 16:22 | DRG 558 ==
LOC: ED 09:58 → SUATTDRO 13:24 → 2N 13:24 → 3N 03-28 19:22